=== PATIENT | female | born 1940 | race American Indian/Alaskan Native ===

== ENCOUNTER 2017-03-31 17:59 | Emergency (ER) | payer MEDICARE ==
--- NOTE | 2017-03-31 22:15 | Emergency Department Report ---
ED Abdominal Pain HPI - General Chief Complaint: Skin/Abscess/Foreign Body Stated Complaint: RT SIDE SEVERE PAIN Source: patient Mode of arrival: Ambulatory Limitations: No Limitations - History of Present Illness Initial Comments: 76 year old female presents to ED with .5 cm bug bite on right side of abdomen x2 days. patient states she would like the spider bite examined and does not want to stay for any type of workup. During examination patient is noted to have severe abdominal tenderness in RLQ and R flank upon palpation. patient is stable, neurologically intact and in no acute distress. MD Complaint: abdominal pain -: Gradual Location: RLQ, R flank Radiation: RLQ, R flank Migration to: RLQ, R flank Severity: severe Severity scale (0 -10): 9 Quality: sharp Consistency: intermittent Improves With: nothing Worsens With: nothing Associated Symptoms: denies other symptoms. denies: nausea, vomiting, diarrhea , fever, chills, constipation, dysuria - Related Data Home Medications Medication Instructions Recorded Confirmed Last Taken Aspirin [Aspirin BABY CHEW TAB] 81 mg PO QDAY 09/17/15 03/15/16 09/17/15 AtorvaSTATin [Lipitor] 40 mg PO QHS 09/17/15 03/15/16 09/17/15 Cetirizine HCl [Allergy Relief] 10 mg PO DAILY 09/17/15 03/15/16 09/16/15 Gabapentin [Neurontin] 300 mg PO Q8HR 09/17/15 03/15/16 09/17/15 Previous Rx's Medication Instructions Recorded Last Taken Type Furosemide [Lasix TAB] 40 mg PO QDAY #30 tablet 09/19/15 Unknown Rx Carvedilol [Coreg] 12.5 mg PO BID #60 tablet 03/19/16 Unknown Rx Ferrous Sulfate [Feosol 325 MG tab] 325 mg PO TID #42 tablet 03/19/16 Unknown Rx ISOSORBIDE MONOnitrate [Imdur ER] 60 mg PO DAILY #15 03/19/16 09/17/15 Rx Losartan [Cozaar] 100 mg PO QDAY #15 tablet 03/19/16 Unknown Rx Pantoprazole [Protonix TAB] 40 mg PO BID #60 tablet 03/19/16 Unknown Rx Potassium Chloride [K-Dur] 20 meq PO BID #14 tablet 03/19/16 Unknown Rx amLODIPine [Norvasc] 5 mg PO QDAY #15 tablet 03/19/16 Unknown Rx Sulfamethoxazole/Trimethoprim 1 each PO BID #20 tablet 03/31/17 Unknown Rx [Bactrim DS TAB] Allergies Allergy/AdvReac Type Severity Reaction Status Date / Time Steroids Allergy Vomiting Uncoded 03/31/17 18:41 ED Review of Systems ROS: Stated complaint: RT SIDE SEVERE PAIN Other details as noted in HPI Constitutional: denies: chills, fever Eyes: denies: eye pain, eye discharge, vision change ENT: denies: ear pain, throat pain Respiratory: denies: cough, shortness of breath, wheezing Cardiovascular: denies: chest pain, palpitations Endocrine: no symptoms reported Gastrointestinal: abdominal pain. denies: nausea, vomiting, diarrhea, constipation Genitourinary: denies: urgency, dysuria, discharge Musculoskeletal: denies: back pain, joint swelling, arthralgia Skin: denies: rash, lesions Neurological: denies: headache, weakness, paresthesias Psychiatric: denies: anxiety, depression Hematological/Lymphatic: denies: easy bleeding, easy bruising ED Past Medical Hx - Past Medical History Hx Hypertension: Yes Hx Heart Attack/AMI: Yes Hx GERD: Yes Hx Arthritis: Yes Additional medical history: back pain-CHRONIC. SINUS / ALLERGIES. HIGH CHOLESTEROL. NEUROPATHY - Surgical History Hx Cholecystectomy: Yes Additional Surgical History: PARTIAL hysterectomy. RIGHT KIDNEY SURGERY? - Social History Smoking Status: Current Every Day Smoker Substance Use Type: None - Medications Home Medications: Home Medications Medication Instructions Recorded Confirmed Last Taken Type Aspirin [Aspirin BABY CHEW TAB] 81 mg PO QDAY 09/17/15 03/15/16 09/17/15 History AtorvaSTATin [Lipitor] 40 mg PO QHS 09/17/15 03/15/16 09/17/15 History Cetirizine HCl [Allergy Relief] 10 mg PO DAILY 09/17/15 03/15/16 09/16/15 History Gabapentin [Neurontin] 300 mg PO Q8HR 09/17/15 03/15/16 09/17/15 History Furosemide [Lasix TAB] 40 mg PO QDAY #30 tablet 09/19/15 03/15/16 Unknown Rx Carvedilol [Coreg] 12.5 mg PO BID #60 tablet 03/19/16 03/15/16 Unknown Rx Ferrous Sulfate [Feosol 325 MG tab] 325 mg PO TID #42 tablet 03/19/16 Unknown Rx ISOSORBIDE MONOnitrate [Imdur ER] 60 mg PO DAILY #15 03/19/16 03/15/16 Rx Losartan [Cozaar] 100 mg PO QDAY #15 tablet 03/19/16 Unknown Rx Pantoprazole [Protonix TAB] 40 mg PO BID #60 tablet 03/19/16 Unknown Rx Potassium Chloride [K-Dur] 20 meq PO BID #14 tablet 03/19/16 Unknown Rx amLODIPine [Norvasc] 5 mg PO QDAY #15 tablet 03/19/16 Unknown Rx Sulfamethoxazole/Trimethoprim 1 each PO BID #20 tablet 03/31/17 Unknown Rx [Bactrim DS TAB] ED Physical Exam - General Limitations: No Limitations General appearance: alert, in no apparent distress - Head Head exam: Present: atraumatic, normocephalic - Eye Eye exam: Present: normal appearance - ENT ENT exam: Present: mucous membranes moist - Neck Neck exam: Present: normal inspection - Respiratory Respiratory exam: Present: normal lung sounds bilaterally. Absent: respiratory distress - Cardiovascular Cardiovascular Exam: Present: regular rate, normal rhythm. Absent: systolic murmur, diastolic murmur, rubs, gallop - GI/Abdominal GI/Abdominal exam: Present: soft, tenderness, guarding, normal bowel sounds - Extremities Exam Extremities exam: Present: normal inspection - Back Exam Back exam: Present: normal inspection - Neurological Exam Neurological exam: Present: alert, oriented X3, normal gait - Psychiatric Psychiatric exam: Present: normal affect, normal mood - Skin Skin exam: Present: warm, dry, intact, normal color. Absent: rash ED Course Vital Signs 03/31/17 18:42 Temperature 98.1 F Pulse Rate 72 Respiratory 20 Rate Blood Pressure 142/76 O2 Sat by Pulse 95 Oximetry ED Medical Decision Making - Medical Decision Making 76 year old female presents to ED with spider bite. Upon examination I have noticed that patient has severe abdominal pain to palpation of RLQ and R flank of abdomen. I have notified patient that we should blood work and CT scan for further evaluation and patient states she just wants to leave AMA and come back tomorrow because her daughter has to go to work. patient was also seen by a second provider (Ernst Dorantes PA-C) for second opinion who also agrees with me and notified patient that she needs to stay in ED for blood work and CT scan. Patient has been explained the risks of AMA by myself and by ENIO Dorantes that the risks of leaving the ED AMA include disability, paralysis, loss of function, and the patient has had the opportunity to ask any questions. The patient has normal mental status and is fully capable of making her own decisions and states that she fully understands the risks of leaving the ED without proper recommended treatment and evaluation. The patient's daughter is at bedside during this entire conversation and also understands the risks of the patient leaving AMA. The patient has been informed that she may return to ED for care at any time. Patient will be given prescription for prophylatic antibiotics due to possibility of internal bacterial pathology. Critical care attestation.: If time is entered above; I have spent that time in minutes in the direct care of this critically ill patient, excluding procedure time. ED Disposition Clinical Impression: Abdominal pain Qualifiers: Abdominal location: right lower quadrant Qualified Code(s): R10.31 - Right lower quadrant pain Disposition: LEFT AGAINST MEDICAL ADVICE Is pt being admited?: No Does the pt Need Aspirin: No Condition: Undetermined Additional Instructions: Please return to ED as soon as possible. Prescriptions: Sulfamethoxazole/Trimethoprim [Bactrim DS TAB] 1 each PO BID #20 tablet Referrals: PRIMARY CARE, [Primary Care Provider] - 3-5 Days Forms: AMA Form
[2017-03-31 23:10] VITALS: BP 136/82
== END 2017-03-31 22:40 | disposition left against medical advice (07) ==
LOC: ED 17:59
DX: S30.861A Insect bite (nonvenomous) of abdominal wall, initial encounter (principal); R10.31 Right lower quadrant pain; I10 Essential (primary) hypertension; I25.2 Old myocardial infarction; K21.9 Gastro-esophageal reflux disease without esophagitis; F17.200 Nicotine dependence, unspecified, uncomplicated; W57.XXXA Bitten or stung by nonvenomous insect and other nonvenomous arthropods, initial encounter; Y93.9 Activity, unspecified; Y92.9 Unspecified place or not applicable; Y99.9 Unspecified external cause status
CPT/HCPCS: 99282

== ENCOUNTER 2020-12-31 08:33 | Observation (INO) | payer MEDICARE ==
--- NOTE | 2020-12-31 08:44 | Emergency Department Report ---
ED General Adult HPI - General Chief complaint: Weakness Stated complaint: weak PUI?: Yes Source: patient, EMS ( EMS documentation not available at time of chart dictation ), RN notes reviewed, old records reviewed Mode of arrival: Stretcher Limitations: Physical Limitation - History of Present Illness Initial comments: The patient was evaluated in the emergency department for symptoms described in the history of present illness. He/she was evaluated in the context of the global COVID-19 pandemic, which necessitated consideration that the patient m ight be at risk for infection with the virus that causes COVID-19. Institutional protocols and algorithms that pertain to the evaluation of patients at risk for COVID-19 are in a state of rapid change based on information released by regulatory bodies including the CDC and federal and state organizations. These policies and algorithms were followed during the patient's care in the emergency department. Please note that these policies, procedures and recommendations changed on a rapid basis. During the entire history and physical examination, I had on complete personal protective equipment. Cardiology: [facility] cardiology Past medical history: Anemia, obesity, CHF, COPD This is a 80-year-old female. She is not known to myself previously. History obtained by speaking to the patient, and by obtaining collateral information from EMS. Apparently, the patient's gerentological physiotherapist wanted to have the patient presented to the emergency room yesterday for hypoxia. The patient did not want to come in. She complains of painless weakness and shortness of breath. She denies headache, neck pain, chest pain, abdominal pain. She denies urinary symptoms. She denies loss of taste and smell. She denies diarrhea. EMS indicated the patient was hypoxic in the field to the 70s/low 80s. Currently, patient on supplemental oxygen, saturating at 93 to 97%. She is not had Covid that she is aware of. She states that her weakness is constant. She does not describe exacerbating or relieving factors that she is aware of. -: Gradual, days(s) Consistency: constant Improves with: none Worsens with: none - Related Data Home Medications Medication Instructions Recorded Confirmed Last Taken Gabapentin 800 mg PO BID 12/31/20 12/31/20 Unknown Gabapentin [Neurontin] 12/31/20 Unknown Gabapentin [Neurontin] 1,600 mg PO HS 12/31/20 12/31/20 Unknown HYDROcodone/APAP 10-325 1 tab PO TID PRN 12/31/20 12/31/20 Unknown Tizanidine HCl 2 mg PO QHS 12/31/20 12/31/20 Unknown Tizanidine HCl [Zanaflex 2mg CAP] 0.5 tab PO QAM 12/31/20 12/31/20 Unknown Previous Rx's Medication Instructions Recorded Last Taken Type amLODIPine 5 mg PO QDAY #15 tablet 03/19/16 Unknown Rx Allergies Allergy/AdvReac Type Severity Reaction Status Date / Time Steroids Allergy Vomiting Uncoded 03/31/17 18:41 ED Review of Systems ROS: Stated complaint: ABDOMINAL PAIN/DIFFICULTY BREATHING Other details as noted in HPI Constitutional: malaise, weakness. denies: fever Eyes: denies: eye discharge ENT: congestion Respiratory: shortness of breath Cardiovascular: edema. denies: chest pain Gastrointestinal: denies: abdominal pain, nausea, vomiting, hematemesis, melena, hematochezia Genitourinary: denies: dysuria Musculoskeletal: denies: back pain Neurological: weakness Hematological/Lymphatic: denies: easy bleeding ED Past Medical Hx - Past Medical History Hx Hypertension: Yes Hx Heart Attack/AMI: Yes Hx GERD: Yes Hx Arthritis: Yes Additional medical history: back pain-CHRONIC. SINUS / ALLERGIES. HIGH CHOLESTEROL. NEUROPATHY - Surgical History Hx Cholecystectomy: Yes Additional Surgical History: PARTIAL hysterectomy. RIGHT KIDNEY SURGERY? - Social History Smoking Status: Current Every Day Smoker - Medications Home Medications: Home Medications Medication Instructions Recorded Confirmed Last Taken Type amLODIPine 5 mg PO QDAY #15 tablet 03/19/16 Unknown Rx Gabapentin 800 mg PO BID 12/31/20 12/31/20 Unknown History Gabapentin [Neurontin] 12/31/20 Unknown History Gabapentin [Neurontin] 1,600 mg PO HS 12/31/20 12/31/20 Unknown History HYDROcodone/APAP 10-325 1 tab PO TID PRN 12/31/20 12/31/20 Unknown History Tizanidine HCl 2 mg PO QHS 12/31/20 12/31/20 Unknown History Tizanidine HCl [Zanaflex 2mg CAP] 0.5 tab PO QAM 12/31/20 12/31/20 Unknown History ED Physical Exam - General Limitations: No Limitations General appearance: alert, in distress, obese - Head Head exam: Present: atraumatic, normocephalic - Eye Eye exam: Present: normal appearance, EOMI. Absent: nystagmus - ENT ENT exam: Present: normal exam, normal orophraynx, mucous membranes moist, normal external ear exam - Neck Neck exam: Present: normal inspection, full ROM. Absent: tenderness, meningismus - Respiratory Respiratory exam: Present: decreased breath sounds. Absent: respiratory distre ss, wheezes, rales, rhonchi, stridor - Cardiovascular Cardiovascular Exam: Present: regular rate, normal rhythm, normal heart sounds, JVD. Absent: bradycardia, tachycardia, irregular rhythm, systolic murmur, diastolic murmur, rubs, gallop - GI/Abdominal GI/Abdominal exam: Present: soft. Absent: distended, tenderness, guarding, rebound, rigid, pulsatile mass - Extremities Exam Extremities exam: Present: normal inspection, full ROM, pedal edema (2+ edema in the bilateral lower extremity), other (2+ pulses noted in the bilateral upper and lower extremities. There is no palpable cord. negative Homans sign. Muscular compartments are soft. The pelvis is stable.). Absent: calf tenderness - Back Exam Back exam: Present: normal inspection. Absent: tenderness, CVA tenderness (R), CVA tenderness (L), paraspinal tenderness, vertebral tenderness - Neurological Exam Neurological exam: Present: alert, other (No facial droop. Tongue midline. Extraocular movements intact bilaterally. Facial sensation intact to light touch in V1, V2, V3 distribution bilaterally. 5 and a 5 strength in 4 extremi ties. Sensation intact to light touch in 4 extremities.). Absent: motor sensory deficit - Psychiatric Psychiatric exam: Present: flat affect - Skin Skin exam: Present: warm, dry, intact, normal color. Absent: rash ED Course Vital Signs 12/31/20 12/31/20 12/31/20 08:30 08:37 08:39 Temperature 98.5 F Pulse Rate 81 Respiratory 22 20 Rate Blood Pressure 173/68 [Left] O2 Sat by Pulse 93 88 Oximetry 12/31/20 12/31/20 09:50 10:02 Temperature Pulse Rate 77 Respiratory 20 Rate Blood Pressure 193/91 [Left] O2 Sat by Pulse 88 93 Oximetry - Reevaluation(s) Reevaluation #1: 12/31/20 09:16 Differential diagnosis, including but not limited to: CHF exacerbation, COPD exa cerbation, COVID-19, multifactorial respiratory failure Assessment and plan: 80-year-old female, with a documented history of CHF, COPD, sent to the emergency room by family, with a complaint of weakness and hypoxia. Keep patient on isolation. Obtain appropriate laboratory studies, start steroids, and continue supplemental oxygen. Reassess after initial data points, anticipate admission to our medical service. Have discussed this plan of care with the patient, who verbalized understanding, and is amenable to this plan of care. Reevaluation #2: 12/31/20 10:08 Laboratory studies reviewed and appreciated. This is more suspicious for CHF, less likely Covid. Hemoglobin hematocrit reviewed and appreciated. Patient has been noted to have blood loss anemia in the past. The patient denies hematemesis and bright red blood per rectum to myself. Lasix ordered. [facility] cardiology consulted, we are waiting for callback. [facility] physician, Dr. Chow to admit patient to the medical service. - Consultations Consultation #1: 12/31/20 10:18 Discussed history, physical, pertinent findings with cardiology, Janneth Vergara, [facility] cardiology, the cardiology group will follow in consultation. ED Medical Decision Making - Lab Data Result diagrams: 12/31/20 Unknown 12/31/20 Unknown Vital Signs 12/31/20 12/31/20 12/31/20 08:30 08:37 08:39 Temperature 98.5 F Pulse Rate 81 Respiratory 22 20 Rate Blood Pressure 173/68 [Left] O2 Sat by Pulse 93 88 Oximetry Lab Results 12/31/20 12/31/20 12/31/20 Range/Units 09:03 09:03 Unknown WBC 7.0 (4.5-11.0) K/mm3 RBC 3.56 L (3.65-5.03) M/mm3 Hgb 8.5 L (10.1-14.3) gm/dl Hct 27.3 L (30.3-42.9) % MCV 77 L (79-97) fl MCH 24 L (28-32) pg MCHC 31 (30-34) % RDW 25.7 H (13.2-15.2) % Plt Count 306 (140-440) K/mm3 Add Manual Diff Complete Total Counted 100 Seg Neuts % (Manual) 82.0 H (40.0-70.0) % Lymphocytes % (Manual) 11.0 L (13.4-35.0) % Monocytes % (Manual) 3.0 (0.0-7.3) % Eosinophils % (Manual) 4.0 (0.0-4.3) % Nucleated RBC % Not Reportable Seg Neutrophils # Man 5.7 (1.8-7.7) K/mm3 Band Neutrophils # 0.0 K/mm3 Lymphocytes # (Manual) 0.8 L (1.2-5.4) K/mm3 Abs React Lymphs (Man) 0.0 K/mm3 Monocytes # (Manual) 0.2 (0.0-0.8) K/mm3 Eosinophils # (Manual) 0.3 (0.0-0.4) K/mm3 Basophils # (Manual) 0.0 (0.0-0.1) K/mm3 Metamyelocytes # 0.0 K/mm3 Myelocytes # 0.0 K/mm3 Promyelocytes # 0.0 K/mm3 Blast Cells # 0.0 K/mm3 WBC Morphology Not Reportable Hypersegmented Neuts Not Reportable Hyposegmented Neuts Not Reportable Hypogranular Neuts Not Reportable Smudge Cells Not Reportable Toxic Granulation Not Reportable Toxic Vacuolation Not Reportable Dohle Bodies Not Reportable Pelger-Huet Anomaly Not Reportable Luis Rods Not Reportable Platelet Estimate Consistent w auto Clumped Platelets Not Reportable Plt Clumps, EDTA Not Reportable Large Platelets Not Reportable Giant Platelets Not Reportable Platelet Satelliting Not Reportable Plt Morphology Comment Not Reportable RBC Morphology Not Reportable Dimorphic RBCs Not Reportable Polychromasia Rare Hypochromasia 2+ Poikilocytosis 1+ Anisocytosis 2+ Microcytosis Not Reportable Macrocytosis Not Reportable Spherocytes Not Reportable Pappenheimer Bodies Not Reportable Sickle Cells Not Reportable Target Cells Rare Tear Drop Cells Few Ovalocytes Not Reportable Helmet Cells Not Reportable Connelly-[place] Bodies Not Reportable Lewis Rings Not Reportable Yumi Cells Not Reportable Bite Cells Not Reportable Crenated Cell Not Reportable Elliptocytes Few Acanthocytes (Spur) Not Reportable Rouleaux Not Reportable Hemoglobin C Crystals Not Reportable Schistocytes Not Reportable Malaria parasites Not Reportable Shahriar Bodies Not Reportable Hem Pathologist Commnt No PT (12.2-14.9) Sec. INR (0.87-1.13) D-Dimer (0-234) ng/mlDDU Sodium (137-145) mmol/L Potassium (3.6-5.0) mmol/L Chloride (98-107) mmol/L Carbon Dioxide (22-30) mmol/L Anion Gap mmol/L BUN (7-17) mg/dL Creatinine (0.6-1.2) mg/dL Estimated GFR ml/min BUN/Creatinine Ratio % Glucose (65-100) mg/dL Lactic Acid 1.40 (0.7-2.0) mmol/L Calcium (8.4-10.2) mg/dL Magnesium (1.7-2.3) mg/dL Ferritin 14.5 (10.0-200.0) ng/mL Total Bilirubin (0.1-1.2) mg/dL AST (5-40) units/L ALT (7-56) units/L Alkaline Phosphatase (35-129) units/L Lactate Dehydrogenase (91-180) units/L Total Creatine Kinase (30-135) units/L Troponin T (0.00-0.029) ng/mL C-Reactive Protein (0.00-1.30) mg/dL NT-Pro-B Natriuret Pep (0-900) pg/mL Total Protein (6.3-8.2) g/dL Albumin (3.9-5) g/dL Albumin/Globulin Ratio % TSH (0.270-4.200) mlU/mL Salicylates (2.8-20.0) mg/dL Acetaminophen (10.0-30.0) ug/mL Plasma/Serum Alcohol (0-0.07) % 12/31/20 12/31/20 12/31/20 Range/Units Unknown Unknown Unknown WBC (4.5-11.0) K/mm3 RBC (3.65-5.03) M/mm3 Hgb (10.1-14.3) gm/dl Hct (30.3-42.9) % MCV (79-97) fl MCH (28-32) pg MCHC (30-34) % RDW (13.2-15.2) % Plt Count (140-440) K/mm3 Add Manual Diff Total Counted Seg Neuts % (Manual) (40.0-70.0) % Lymphocytes % (Manual) (13.4-35.0) % Monocytes % (Manual) (0.0-7.3) % Eosinophils % (Manual) (0.0-4.3) % Nucleated RBC % Seg Neutrophils # Man (1.8-7.7) K/mm3 Band Neutrophils # K/mm3 Lymphocytes # (Manual) (1.2-5.4) K/mm3 Abs React Lymphs (Man) K/mm3 Monocytes # (Manual) (0.0-0.8) K/mm3 Eosinophils # (Manual) (0.0-0.4) K/mm3 Basophils # (Manual) (0.0-0.1) K/mm3 Metamyelocytes # K/mm3 Myelocytes # K/mm3 Promyelocytes # K/mm3 Blast Cells # K/mm3 WBC Morphology Hypersegmented Neuts Hyposegmented Neuts Hypogranular Neuts Smudge Cells Toxic Granulation Toxic Vacuolation Dohle Bodies Pelger-Huet Anomaly Luis Rods Platelet Estimate Clumped Platelets Plt Clumps, EDTA Large Platelets Giant Platelets Platelet Satelliting Plt Morphology Comment RBC Morphology Dimorphic RBCs Polychromasia Hypochromasia Poikilocytosis Anisocytosis Microcytosis Macrocytosis Spherocytes Pappenheimer Bodies Sickle Cells Target Cells Tear Drop Cells Ovalocytes Helmet Cells Connelly-[place] Bodies Lewis Rings Blevins Cells Bite Cells Crenated Cell Elliptocytes Acanthocytes (Spur) Rouleaux Hemoglobin C Crystals Schistocytes Malaria parasites Shahriar Bodies Hem Pathologist Commnt PT 12.8 (12.2-14.9) Sec. INR 0.97 (0.87-1.13) D-Dimer 510.39 H (0-234) ng/mlDDU Sodium 139 (137-145) mmol/L Potassium 3.6 (3.6-5.0) mmol/L Chloride 98.5 (98-107) mmol/L Carbon Dioxide 36 H (22-30) mmol/L Anion Gap 8 mmol/L BUN 10 (7-17) mg/dL Creatinine 0.6 (0.6-1.2) mg/dL Estimated GFR > 60 ml/min BUN/Creatinine Ratio 17 % Glucose 118 H (65-100) mg/dL Lactic Acid (0.7-2.0) mmol/L Calcium 8.8 (8.4-10.2) mg/dL Magnesium 1.90 (1.7-2.3) mg/dL Ferritin 14.5 (10.0-200.0) ng/mL Total Bilirubin 0.70 (0.1-1.2) mg/dL AST 14 (5-40) units/L ALT 17 (7-56) units/L Alkaline Phosphatase 75 (35-129) units/L Lactate Dehydrogenase 227 H (91-180) units/L Total Creatine Kinase 97 (30-135) units/L Troponin T < 0.010 (0.00-0.029) ng/mL C-Reactive Protein 0.10 (0.00-1.30) mg/dL NT-Pro-B Natriuret Pep 1926 H (0-900) pg/mL Total Protein 6.3 (6.3-8.2) g/dL Albumin 4.0 (3.9-5) g/dL Albumin/Globulin Ratio 1.7 % TSH (0.270-4.200) mlU/mL Salicylates (2.8-20.0) mg/dL Acetaminophen (10.0-30.0) ug/mL Plasma/Serum Alcohol (0-0.07) % 12/31/20 12/31/20 12/31/20 Range/Units Unknown Unknown Unknown WBC (4.5-11.0) K/mm3 RBC (3.65-5.03) M/mm3 Hgb (10.1-14.3) gm/dl Hct (30.3-42.9) % MCV (79-97) fl MCH (28-32) pg MCHC (30-34) % RDW (13.2-15.2) % Plt Count (140-440) K/mm3 Add Manual Diff Total Counted Seg Neuts % (Manual) (40.0-70.0) % Lymphocytes % (Manual) (13.4-35.0) % Monocytes % (Manual) (0.0-7.3) % Eosinophils % (Manual) (0.0-4.3) % Nucleated RBC % Seg Neutrophils # Man (1.8-7.7) K/mm3 Band Neutrophils # K/mm3 Lymphocytes # (Manual) (1.2-5.4) K/mm3 Abs React Lymphs (Man) K/mm3 Monocytes # (Manual) (0.0-0.8) K/mm3 Eosinophils # (Manual) (0.0-0.4) K/mm3 Basophils # (Manual) (0.0-0.1) K/mm3 Metamyelocytes # K/mm3 Myelocytes # K/mm3 Promyelocytes # K/mm3 Blast Cells # K/mm3 WBC Morphology Hypersegmented Neuts Hyposegmented Neuts Hypogranular Neuts Smudge Cells Toxic Granulation Toxic Vacuolation Dohle Bodies Pelger-Huet Anomaly Luis Rods Platelet Estimate Clumped Platelets Plt Clumps, EDTA Large Platelets Giant Platelets Platelet Satelliting Plt Morphology Comment RBC Morphology Dimorphic RBCs Polychromasia Hypochromasia Poikilocytosis Anisocytosis Microcytosis Macrocytosis Spherocytes Pappenheimer Bodies Sickle Cells Target Cells Tear Drop Cells Ovalocytes Helmet Cells Connelly-[place] Bodies Lewis Rings Yumi Cells Bite Cells Crenated Cell Elliptocytes Acanthocytes (Spur) Rouleaux Hemoglobin C Crystals Schistocytes Malaria parasites Shahriar Bodies Hem Pathologist Commnt PT (12.2-14.9) Sec. INR (0.87-1.13) D-Dimer (0-234) ng/mlDDU Sodium (137-145) mmol/L Potassium (3.6-5.0) mmol/L Chloride (98-107) mmol/L Carbon Dioxide (22-30) mmol/L Anion Gap mmol/L BUN (7-17) mg/dL Creatinine (0.6-1.2) mg/dL Estimated GFR ml/min BUN/Creatinine Ratio % Glucose (65-100) mg/dL Lactic Acid (0.7-2.0) mmol/L Calcium (8.4-10.2) mg/dL Magnesium (1.7-2.3) mg/dL Ferritin (10.0-200.0) ng/mL Total Bilirubin (0.1-1.2) mg/dL AST (5-40) units/L ALT (7-56) units/L Alkaline Phosphatase (35-129) units/L Lactate Dehydrogenase (91-180) units/L Total Creatine Kinase (30-135) units/L Troponin T (0.00-0.029) ng/mL C-Reactive Protein (0.00-1.30) mg/dL NT-Pro-B Natriuret Pep (0-900) pg/mL Total Protein (6.3-8.2) g/dL Albumin (3.9-5) g/dL Albumin/Globulin Ratio % TSH 1.100 (0.270-4.200) mlU/mL Salicylates < 0.3 L (2.8-20.0) mg/dL Acetaminophen 5.0 L (10.0-30.0) ug/mL Plasma/Serum Alcohol (0-0.07) % 12/31/20 Range/Units Unknown WBC (4.5-11.0) K/mm3 RBC (3.65-5.03) M/mm3 Hgb (10.1-14.3) gm/dl Hct (30.3-42.9) % MCV (79-97) fl MCH (28-32) pg MCHC (30-34) % RDW (13.2-15.2) % Plt Count (140-440) K/mm3 Add Manual Diff Total Counted Seg Neuts % (Manual) (40.0-70.0) % Lymphocytes % (Manual) (13.4-35.0) % Monocytes % (Manual) (0.0-7.3) % Eosinophils % (Manual) (0.0-4.3) % Nucleated RBC % Seg Neutrophils # Man (1.8-7.7) K/mm3 Band Neutrophils # K/mm3 Lymphocytes # (Manual) (1.2-5.4) K/mm3 Abs React Lymphs (Man) K/mm3 Monocytes # (Manual) (0.0-0.8) K/mm3 Eosinophils # (Manual) (0.0-0.4) K/mm3 Basophils # (Manual) (0.0-0.1) K/mm3 Metamyelocytes # K/mm3 Myelocytes # K/mm3 Promyelocytes # K/mm3 Blast Cells # K/mm3 WBC Morphology Hypersegmented Neuts Hyposegmented Neuts Hypogranular Neuts Smudge Cells Toxic Granulation Toxic Vacuolation Dohle Bodies Pelger-Huet Anomaly Luis Rods Platelet Estimate Clumped Platelets Plt Clumps, EDTA Large Platelets Giant Platelets Platelet Satelliting Plt Morphology Comment RBC Morphology Dimorphic RBCs Polychromasia Hypochromasia Poikilocytosis Anisocytosis Microcytosis Macrocytosis Spherocytes Pappenheimer Bodies Sickle Cells Target Cells Tear Drop Cells Ovalocytes Helmet Cells Connelly-[place] Bodies Lewis Rings Blevins Cells Bite Cells Crenated Cell Elliptocytes Acanthocytes (Spur) Rouleaux Hemoglobin C Crystals Schistocytes Malaria parasites Shahriar Bodies Hem Pathologist Commnt PT (12.2-14.9) Sec. INR (0.87-1.13) D-Dimer (0-234) ng/mlDDU Sodium (137-145) mmol/L Potassium (3.6-5.0) mmol/L Chloride (98-107) mmol/L Carbon Dioxide (22-30) mmol/L Anion Gap mmol/L BUN (7-17) mg/dL Creatinine (0.6-1.2) mg/dL Estimated GFR ml/min BUN/Creatinine Ratio % Glucose (65-100) mg/dL Lactic Acid (0.7-2.0) mmol/L Calcium (8.4-10.2) mg/dL Magnesium (1.7-2.3) mg/dL Ferritin (10.0-200.0) ng/mL Total Bilirubin (0.1-1.2) mg/dL AST (5-40) units/L ALT (7-56) units/L Alkaline Phosphatase (35-129) units/L Lactate Dehydrogenase (91-180) units/L Total Creatine Kinase (30-135) units/L Troponin T (0.00-0.029) ng/mL C-Reactive Protein (0.00-1.30) mg/dL NT-Pro-B Natriuret Pep (0-900) pg/mL Total Protein (6.3-8.2) g/dL Albumin (3.9-5) g/dL Albumin/Globulin Ratio % TSH (0.270-4.200) mlU/mL Salicylates (2.8-20.0) mg/dL Acetaminophen (10.0-30.0) ug/mL Plasma/Serum Alcohol < 0.01 (0-0.07) % - EKG Data -: EKG Interpreted by Al EKG shows normal: sinus rhythm Rate: normal - EKG Data 12/31/20 09:15 EKG today shows a sinus rhythm, 76 bpm. There is a normal axis, and the intervals are within normal limits. Lateral T wave inversions V2 through V5. This is an abnormal EKG with motion artifact. This is not a STEMI. When compared to prior EKG from 2016, T wave inversions are persistent, but appear improved. - Radiology Data Radiology results: pending, report reviewed, image reviewed CHEST 1 VIEW INDICATION: Dyspnea. COMPARISON: 03/14/2016 FINDINGS: SUPPORT DEVICES: None. HEART: Within normal limits. LUNGS/PLEURA: Mild elevation of the right hemidiaphragm with mild diffuse interstitial prominence which may at least in part reflect a component of mild edema. No pleural effusion or dense consolidation. ADDITIONAL FINDINGS: None. IMPRESSION: 1. Pulmonary findings as above. Signer Name: Alton Mcdaniel MD Signed: 12/31/2020 8:34 AM Workstation Na me: [id number] Critical Care Time: Yes Critical care time in (mins) excluding proc time.: 35 Critical care attestation.: If time is entered above; I have spent that time in minutes in the direct care of this critically ill patient, excluding procedure time. ED Disposition Clinical Impression: Acute respiratory failure with hypoxia, Suspected 2019 novel coronavirus infection, Shortness of breath, Acute CHF, Anemia Disposition: 09 OP ADMIT IP TO THIS HOSP Is pt being admited?: Yes Does the pt Need Aspirin: No Condition: Fair Instructions: Abdominal Pain (ED)
[2020-12-31] MEDS ORDERED: dexAMETHasone 4 MG/ML VIAL IV ONE (09:18)
[2020-12-31 09:19] LABS: Hematocrit 27.3 % (30.3-42.9); Hemoglobin 8.5 gm/dl (10.1-14.3); Mean Corpuscular HGB Conc 31 % (30-34); Mean Corpuscular Volume 77 fl (79-97); Platelet Count 306 K/mm3 (140-440); Red Blood Count 3.56 M/mm3 (3.65-5.03)
[2020-12-31 09:21] LABS: Red Cell Distribution Width 25.7 % (13.2-15.2)
--- NOTE | 2020-12-31 09:38 | XRay Report ---
CHEST 1 VIEW INDICATION: Dyspnea. COMPARISON: 03/14/2016 FINDINGS: SUPPORT DEVICES: None. HEART: Within normal limits. LUNGS/PLEURA: Mild elevation of the right hemidiaphragm with mild diffuse interstitial prominence whi ch may at least in part reflect a component of mild edema. No pleural effusion or dense consolidation . ADDITIONAL FINDINGS: None. IMPRESSION: 1. Pulmonary findings as above. Signer Name: Alton Mcdaniel MD Signed: 12/31/2020 9:34 AM Workstation Name: [id number]
[2020-12-31 09:41] LABS: INR 0.97 (0.87-1.13)
[2020-12-31 09:56] LABS: Alanine Aminotransferase 17 units/L (7-56); Blood Urea Nitrogen 10 mg/dL (7-17); Calcium 8.8 mg/dL (8.4-10.2); Hemolysis Index 1
[2020-12-31 09:57] LABS: BUN/Creatinine Ratio 17
[2020-12-31 10:00] LABS: Total Cells Counted 100
[2020-12-31 10:01] LABS: Anisocytosis 2+; Hypochromasia 2+
[2020-12-31 10:02] LABS: Poikilocytosis 1+; Target Cells Rare; Tear Drop Cells Few
[2020-12-31 10:03] LABS: Platelet Estimate Consistent w Auto
[2020-12-31] MEDS ORDERED: FUROSEMIDE 40 MG/4 ML INJ IV ONE (10:06)
--- NOTE | 2020-12-31 11:26 | History and Physical Report ---
History of Present Illness Date of examination: 12/31/20 Date of admission: 12/31/20 10:15 Chief complaint: sob History of present illness: Patient is a 80-year-old female with a history of COPD, congestive heart failure, hypertension presents with a 3-day history of shortness of breath hypoxemia. 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 Was then sent for follow-up with helper animal laboratory Dr. Winkler. From there patient was referred to the ED. Upon presentation was found to be hypoxemic with sats in the 70s and 80s currently hemodynamically stable with supplemental O2. Patient at present states she has had a history of congestive heart failure however stopped taking medications for her blood pressure and Lasix several years ago. Patient very poor historian keeps saying weight let me get my thoughts together. States she seen several doctors in the last 3 weeks and difficult to remember which ones. Currently comfortable now satting 96% on 3 L of O2. Patient states occasionally she gets short of breath and is from her smoking and her COPD. Denies any recent sick contacts. Denies any recent travel. States she has been at home attempting to avoid Covid. Past History Past Medical History: anemia, arthritis, COPD, GERD, heart failure, hypertension, hyperlipidemia. denies: acute [place], atrial fib, arrhythmia, CAD, cancer, diabetes, dialysis, DVT, ESRD, hepatitis, HIV/AIDS, hyperthyroidism, hypothyroidism, liver disease, pulmonary embolism, renal failure, seizures, stroke Past Surgical History: appendectomy, cholecystectomy Social history: lives with family, smoking. denies: alcohol abuse, prescription drug abuse, IV drug use Family history: hypertension Medications and Allergies Allergies Allergy/AdvReac Type Severity Reaction Status Date / Time Steroids Allergy Vomiting Uncoded 03/31/17 18:41 Home Medications Medication Instructions Recorded Confirmed Last Taken Type amLODIPine 5 mg PO QDAY #15 tablet 03/19/16 Unknown Rx Gabapentin 800 mg PO BID 12/31/20 12/31/20 Unknown History Gabapentin [Neurontin] 12/31/20 Unknown History Gabapentin [Neurontin] 1,600 mg PO HS 12/31/20 12/31/20 Unknown History HYDROcodone/APAP 10-325 1 tab PO TID PRN 12/31/20 12/31/20 Unknown History Tizanidine HCl 2 mg PO QHS 12/31/20 12/31/20 Unknown History Tizanidine HCl [Zanaflex 2mg CAP] 0.5 tab PO QAM 12/31/20 12/31/20 Unknown History Review of Systems Constitutional: fatigue, weakness, no weight loss, no weight gain, no fever, no chills, no sweats, no malaise, no lethargy, no chronic headaches Ears, nose, mouth and throat: no deferred, no ear pain, no nose pain, no mouth pain, no hoarseness Cardiovascular: shortness of breath, dyspnea on exertion, high blood pressure, no chest pain, no orthopnea, no palpitations, no rapid/irregular heart beat, no edema, no syncope, no lightheadedness, no paroxysmal nocturnal dyspnea, no claudication, no phlebitis, no leg edema Respiratory: shortness of breath, dyspnea on exertion, no cough, no cough with sputum, no excessive sputum, no hemoptysis, no congestion, no wheezing, no pain on inspiration, no sleep apnea, no respiratory infections, no home oxygen Gastrointestinal: no nausea, no diarrhea, no constipation, no hematochezia, no loss of appetite, no heartburn Rectal: no discharge Musculoskeletal: no neck stiffness, no neck pain, no shooting arm pain, no muscle weakness, no loss of height Neurological: no head injury, no weakness, no tingling, no migraines, no aphasia, no change in mentation, no double vision, no loss of vision Psychiatric: no sleep disturbances, no mood swings Endocrine: no cold intolerance, no polydipsia, no excessive sweating, no deepening of the voice, no palpatations Hematologic/Lymphatic: no easy bleeding, no lymphadenopathy Allergic/Immunologic: no persistent infections, no gluten intolerance Exam - Constitutional Vitals: Temp Pulse Resp BP Pulse Ox 98.5 F 75 15 193/83 97 12/31/20 11:07 12/31/20 11:07 12/31/20 11:07 12/31/20 11:07 12/31/20 11:07 General appearance: Present: no acute distress, well-nourished - EENT Eyes: Present: PERRL ENT: hearing intact, clear oral mucosa, other (No JVD no lymphadenopathy) - Neck Neck: Present: supple, normal ROM - Respiratory Respiratory effort: normal Respiratory: bilateral: CTA - Cardiovascular Heart Sounds: Present: S1 & S2. Absent: rub, click - Extremities Extremities: pulses symmetrical, No edema Peripheral Pulses: within normal limits - Abdominal General gastrointestinal: Present: soft, non-tender, non-distended, normal bowel sounds, other (Obese) Female genitourinary: Present: normal - Integumentary Integumentary: Present: clear, warm, dry - Musculoskeletal Musculoskeletal: gait normal, strength equal bilaterally - Psychiatric Psychiatric: appropriate mood/affect, intact judgment & insight - Neurologic Neurologic: CNII-XII intact, moves all extremities HEART Score - HEART Score Troponin: Troponin T < 0.010 ng/mL (0.00-0.029) 12/31/20 Unknown Results - Labs CBC & Chem 7: 12/31/20 Unknown 12/31/20 Unknown Labs: Laboratory Last Values WBC 7.0 K/mm3 (4.5-11.0) 12/31/20 Unknown RBC 3.56 M/mm3 (3.65-5.03) L 12/31/20 Unknown Hgb 8.5 gm/dl (10.1-14.3) L 12/31/20 Unknown Hct 27.3 % (30.3-42.9) L 12/31/20 Unknown MCV 77 fl (79-97) L 12/31/20 Unknown MCH 24 pg (28-32) L 12/31/20 Unknown MCHC 31 % (30-34) 12/31/20 Unknown RDW 25.7 % (13.2-15.2) H 12/31/20 Unknown Plt Count 306 K/mm3 (140-440) 12/31/20 Unknown Add Manual Diff Complete 12/31/20 Unknown Total Counted 100 12/31/20 Unknown Seg Neuts % (Manual) 82.0 % (40.0-70.0) H 12/31/20 Unknown Lymphocytes % (Manual) 11.0 % (13.4-35.0) L 12/31/20 Unknown Monocytes % (Manual) 3.0 % (0.0-7.3) 12/31/20 Unknown Eosinophils % (Manual) 4.0 % (0.0-4.3) 12/31/20 Unknown Nucleated RBC % Not Reportable 12/31/20 Unknown Seg Neutrophils # Man 5.7 K/mm3 (1.8-7.7) 12/31/20 Unknown Band Neutrophils # 0.0 K/mm3 12/31/20 Unknown Lymphocytes # (Manual) 0.8 K/mm3 (1.2-5.4) L 12/31/20 Unknown Abs React Lymphs (Man) 0.0 K/mm3 12/31/20 Unknown Monocytes # (Manual) 0.2 K/mm3 (0.0-0.8) 12/31/20 Unknown Eosinophils # (Manual) 0.3 K/mm3 (0.0-0.4) 12/31/20 Unknown Basophils # (Manual) 0.0 K/mm3 (0.0-0.1) 12/31/20 Unknown Metamyelocytes # 0.0 K/mm3 12/31/20 Unknown Myelocytes # 0.0 K/mm3 12/31/20 Unknown Promyelocytes # 0.0 K/mm3 12/31/20 Unknown Blast Cells # 0.0 K/mm3 12/31/20 Unknown WBC Morphology Not Reportable 12/31/20 Unknown Hypersegmented Neuts Not Reportable 12/31/20 Unknown Hyposegmented Neuts Not Reportable 12/31/20 Unknown Hypogranular Neuts Not Reportable 12/31/20 Unknown Smudge Cells Not Reportable 12/31/20 Unknown Toxic Granulation Not Reportable 12/31/20 Unknown Toxic Vacuolation Not Reportable 12/31/20 Unknown Dohle Bodies Not Reportable 12/31/20 Unknown Pelger-Huet Anomaly Not Reportable 12/31/20 Unknown Luis Rods Not Reportable 12/31/20 Unknown Platelet Estimate Consistent w auto 12/31/20 Unknown Clumped Platelets Not Reportable 12/31/20 Unknown Plt Clumps, EDTA Not Reportable 12/31/20 Unknown Large Platelets Not Reportable 12/31/20 Unknown Giant Platelets Not Reportable 12/31/20 Unknown Platelet Satelliting Not Reportable 12/31/20 Unknown Plt Morphology Comment Not Reportable 12/31/20 Unknown RBC Morphology Not Reportable 12/31/20 Unknown Dimorphic RBCs Not Reportable 12/31/20 Unknown Polychromasia Rare 12/31/20 Unknown Hypochromasia 2+ 12/31/20 Unknown Poikilocytosis 1+ 12/31/20 Unknown Anisocytosis 2+ 12/31/20 Unknown Microcytosis Not Reportable 12/31/20 Unknown Macrocytosis Not Reportable 12/31/20 Unknown Spherocytes Not Reportable 12/31/20 Unknown Pappenheimer Bodies Not Reportable 12/31/20 Unknown Sickle Cells Not Reportable 12/31/20 Unknown Target Cells Rare 12/31/20 Unknown Tear Drop Cells Few 12/31/20 Unknown Ovalocytes Not Reportable 12/31/20 Unknown Helmet Cells Not Reportable 12/31/20 Unknown [place] Bodies Not Reportable 12/31/20 Unknown [place] Rings Not Reportable 12/31/20 Unknown [place] Cells Not Reportable 12/31/20 Unknown Bite Cells Not Reportable 12/31/20 Unknown Crenated Cell Not Reportable 12/31/20 Unknown Elliptocytes Few 12/31/20 Unknown Acanthocytes (Spur) Not Reportable 12/31/20 Unknown Rouleaux Not Reportable 12/31/20 Unknown Hemoglobin C Crystals Not Reportable 12/31/20 Unknown Schistocytes Not Reportable 12/31/20 Unknown Malaria parasites Not Reportable 12/31/20 Unknown Shahriar Bodies Not Reportable 12/31/20 Unknown Hem Pathologist Commnt No 12/31/20 Unknown PT 12.8 Sec. (12.2-14.9) 12/31/20 Unknown INR 0.97 (0.87-1.13) 12/31/20 Unknown D-Dimer 510.39 ng/mlDDU (0-234) H 12/31/20 Unknown Sodium 139 mmol/L (137-145) 12/31/20 Unknown Potassium 3.6 mmol/L (3.6-5.0) 12/31/20 Unknown Chloride 98.5 mmol/L (98-107) 12/31/20 Unknown Carbon Dioxide 36 mmol/L (22-30) H 12/31/20 Unknown Anion Gap 8 mmol/L 12/31/20 Unknown BUN 10 mg/dL (7-17) 12/31/20 Unknown Creatinine 0.6 mg/dL (0.6-1.2) 12/31/20 Unknown Estimated GFR > 60 ml/min 12/31/20 Unknown BUN/Creatinine Ratio 17 % 12/31/20 Unknown Glucose 118 mg/dL (65-100) H 12/31/20 Unknown Lactic Acid 1.40 mmol/L (0.7-2.0) 12/31/20 09:03 Calcium 8.8 mg/dL (8.4-10.2) 12/31/20 Unknown Magnesium 1.90 mg/dL (1.7-2.3) 12/31/20 Unknown Ferritin 14.5 ng/mL (10.0-200.0) 12/31/20 Unknown Total Bilirubin 0.70 mg/dL (0.1-1.2) 12/31/20 Unknown AST 14 units/L (5-40) 12/31/20 Unknown ALT 17 units/L (7-56) 12/31/20 Unknown Alkaline Phosphatase 75 units/L (35-129) 12/31/20 Unknown Lactate Dehydrogenase 227 units/L (91-180) H 12/31/20 Unknown Total Creatine Kinase 97 units/L (30-135) 12/31/20 Unknown Troponin T < 0.010 ng/mL (0.00-0.029) 12/31/20 Unknown C-Reactive Protein 0.10 mg/dL (0.00-1.30) 12/31/20 Unknown NT-Pro-B Natriuret Pep 1926 pg/mL (0-900) H 12/31/20 Unknown Total Protein 6.3 g/dL (6.3-8.2) 12/31/20 Unknown Albumin 4.0 g/dL (3.9-5) 12/31/20 Unknown Albumin/Globulin Ratio 1.7 % 12/31/20 Unknown TSH 1.100 mlU/mL (0.270-4.200) 12/31/20 Unknown Salicylates < 0.3 mg/dL (2.8-20.0) L 12/31/20 Unknown Acetaminophen 5.0 ug/mL (10.0-30.0) L 12/31/20 Unknown Plasma/Serum Alcohol < 0.01 % (0-0.07) 12/31/20 Unknown Microbiology: Microbiology 12/31/20 09:03 Peripheral/Venous Blood Culture - Preliminary Culture in Progress 12/31/20 09:03 Peripheral/Venous Blood Culture - Preliminary Culture in Progress - Imaging and Cardiology Chest x-ray: report reviewed, image reviewed Bhandari/IV: IV Catheter Type [Right INT / Saline Lock Antecubital] Assessment and Plan Advance Directives: Yes VTE prophylaxis?: Chemical Plan of care discussed with patient/family: Yes - Patient Problems (1) Anemia Current Visit: Yes Status: Acute Plan to address problem: Patient has history anemia of chronic disease. Also has had GI bleed in the past. Patient denies any melena patient denies any bright red blood per rectum. Hemoglobin and hematocrit currently 8 and 27. Will resume iron. Will work-up as outpatient if necessary with patient's primary care physician at [facility]. Follow serial H&H (2) Acute CHF Current Visit: Yes Status: Acute Plan to address problem: At present patient being admitted for acute CHF exacerbation. Echocardiogram still pending. Will offer aggressive diuretics in the past and has not been using diuretics now. Potentially this could be failed treatment secondary to noncompliance. Patient such a poor historian diuretics in the past.. Patient has been on diuretics in the past. Currently not using diuretics. Will admit perform echocardiogram for further restratify. Will at least need 1 set of cardiac isoenzymes. Patient's blood pressure remains suboptimally controlled. Will start patient back on Coreg iv diuretics MEME inhibitor afterload reducers. Await any further cardiology recommendations. [facility]. (3) Acute respiratory failure with hypoxia Current Visit: Yes Status: Acute Plan to address problem: Acute respiratory failure multifactorial secondary to CHF exacerbation, COPD exacerbation patient still has wheezing continue smoking. Will start patient on albuterol Atrovent nebulizers if required. Will wait till we rule out Covid 19. Will use metered-dose inhaler until that time. (4) Suspected 2019 novel coronavirus infection Current Visit: Yes Status: Acute Plan to address problem: We will obtain nasal swab for COVID-19. (5) Anemia due to blood loss, chronic Current Visit: No Status: Acute Plan to address problem: Anemia of chronic disease. Transfuse as indicated. (6) Hypertensive urgency Current Visit: No Status: Acute Plan to address problem: Hypertensive urgency. Will place patient back on Coreg 25 mg twice daily. Will start MEME inhibitor. We will also treat with hydralazine IV as needed for now.
[2020-12-31 11:40] LABS: Bilirubin,Urine NEG (Negative); Blood,Urine SM (Negative); Color,Urine Straw (Yellow); Protein,Urine <15 mg/dL mg/dL (Negative); Urobilinogen,Urine < 2.0 mg/dL (<2.0); WBC,Urine < 1.0 /HPF (0.0-6.0)
[2020-12-31] MEDS ORDERED: ONDANSETRON 4 MG/2 ML INJ IV PRN (12:52)
[2020-12-31] MEDS ORDERED: oxyCODONE /ACETAMINOPHEN 5-325MG TAB PO PRN (12:52)
[2020-12-31] MEDS ORDERED: NITROGLYCERIN 0.4 MG TAB SUBL SL PRN (12:52)
[2020-12-31] MEDS ORDERED: ACETAMINOPHEN 325 MG TAB PO PRN (12:52)
[2020-12-31] MEDS ORDERED: GABAPENTIN 800 MG PO SCH (13:00)
--- NOTE | 2020-12-31 13:10 | Consultation ---
History of Present Illness Consult date: 12/31/20 Consult reason: congestive heart failure History of present illness: This is a 80-year old F [facility] and has a history of coronary artery disease. A cardiac cath in 2016 showed a patent RCA stent, otherwise, non-obstructive disease, ejection fraction 60%. Yesterday, she went for a routine cardiac follow up, found with low oxygen saturation measurement. She is on home oxygen but does not use supplemental oxygen while out of the house. 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 She is admitted with shortness of breath, acute hypoxic respiratory failure, oxygen saturation at 84% on presentation. Chest x- ray reports mild interstitial edema. Currently, she is on isolation protocol and is being tested for COVID-19. Laboratory studies shows a HCT of 27.3. A cardiac consultation has been requested for CHF. Past History Past Medical History: anemia, arthritis, COPD, GERD, hypertension, hyperlipidemia. denies: acute [place], atrial fib, arrhythmia, CAD, cancer, diabetes, dialysis, DVT, ESRD, hepatitis, HIV/AIDS, hyperthyroidism, hypothyroidism, liver disease, pulmonary embolism, renal failure, seizures, stroke Past Surgical History: appendectomy, cholecystectomy Social history: lives with family, smoking. denies: alcohol abuse, prescription drug abuse, IV drug use Family history: hypertension Medications and Allergies Allergies Allergy/AdvReac Type Severity Reaction Status Date / Time Steroids Allergy Vomiting Uncoded 03/31/17 18:41 Home Medications Medication Instructions Recorded Confirmed Last Taken Type amLODIPine 5 mg PO QDAY #15 tablet 03/19/16 Unknown Rx Gabapentin 800 mg PO BID 12/31/20 12/31/20 Unknown History Gabapentin [Neurontin] 12/31/20 Unknown History Gabapentin [Neurontin] 1,600 mg PO HS 12/31/20 12/31/20 Unknown History HYDROcodone/APAP 10-325 1 tab PO TID PRN 12/31/20 12/31/20 Unknown History Tizanidine HCl 2 mg PO QHS 12/31/20 12/31/20 Unknown History Tizanidine HCl [Zanaflex 2mg CAP] 0.5 tab PO QAM 12/31/20 12/31/20 Unknown History Active Meds: Active Medications Acetaminophen (Acetaminophen 325 Mg Tab) 650 mg PO Q4H PRN PRN Reason: Pain MILD(1-3)/Fever >100.5/MONTIEL Carvedilol (Carvedilol 12.5 Mg Tab) 12.5 mg PO BID [facility] Famotidine (Famotidine 20 Mg/2 Ml Inj) 20 mg IV BID [facility] Furosemide (Furosemide 20 Mg Tab) 20 mg PO BID@0600,1800 [facility] Hydralazine HCl (Hydralazine 25 Mg Tab) 25 mg PO BID [facility] Losartan Potassium (Losartan 50 Mg Tab) 100 mg PO QDAY [facility] Miscellaneous Medication (Gabapentin) 800 mg PO BID [facility] Nitroglycerin (Nitroglycerin 0.4 Mg Tab Subl) 0.4 mg SL .Q5MIN PRN PRN Reason: Chest Pain Ondansetron HCl (Ondansetron 4 Mg/2 Ml Inj) 4 mg IV Q8H PRN PRN Reason: Nausea And Vomiting Oxycodone/Acetaminophen (Oxycodone /Acetaminophen 5-325mg Tab) 1 tab PO Q6H PRN PRN Reason: Pain, Moderate (4-6) Potassium Chloride (Potassium Chloride Er 20 Meq Tab) 20 meq PO QDAY [facility] Sodium Chloride (Sodium Chloride 0.9% 10 Ml Flush Syringe) 10 ml IV BID [facility] Sodium Chloride (Sodium Chloride 0.9% 10 Ml Flush Syringe) 10 ml IV PRN PRN PRN Reason: LINE FLUSH Physical Examination Vital Signs Resp Pulse Ox 22 93 12/31/20 08:30 12/31/20 08:30 Narrative exam: Deferred due to isolation protocol Results 12/31/20 Unknown 12/31/20 Unknown Cardiac Enzymes 12/31/20 Range/Units Unknown AST 14 (5-40) units/L Lactate Dehydrogenase 227 H (91-180) units/L Coagulation 12/31/20 Range/Units Unknown PT 12.8 (12.2-14.9) Sec. INR 0.97 (0.87-1.13) CBC 12/31/20 Range/Units Unknown WBC 7.0 (4.5-11.0) K/mm3 RBC 3.56 L (3.65-5.03) M/mm3 Hgb 8.5 L (10.1-14.3) gm/dl Hct 27.3 L (30.3-42.9) % Plt Count 306 (140-440) K/mm3 Comprehensive Metabolic Panel 02/04/21 Range/Units Unknown Sodium 139 (137-145) mmol/L Potassium 3.6 (3.6-5.0) mmol/L Chloride 98.5 (98-107) mmol/L Carbon Dioxide 36 H (22-30) mmol/L BUN 10 (7-17) mg/dL Creatinine 0.6 (0.6-1.2) mg/dL Glucose 118 H (65-100) mg/dL Calcium 8.8 (8.4-10.2) mg/dL AST 14 (5-40) units/L ALT 17 (7-56) units/L Alkaline Phosphatase 75 (35-129) units/L Total Protein 6.3 (6.3-8.2) g/dL Albumin 4.0 (3.9-5) g/dL Assessment and Plan Shortness of breath Hx of CAD 016 showed a patent RCA stent, otherwise, non-obstructive disease, ejection fraction 60%. Chronic lung disease / COPD Hypertension Continue tobacco abuse
[2020-12-31] MEDS: GABAPENTIN 400 MG CAP PO SCH ×2 (15:24→22:44)
[2020-12-31] MEDS: LOSARTAN 50 MG TAB PO SCH (15:24)
[2020-12-31] MEDS: hydrALAZINE 25 MG TAB PO SCH ×2 (15:25→21:51)
[2020-12-31] MEDS: POTASSIUM CHLORIDE ER 20 MEQ TAB PO SCH (15:25)
[2020-12-31] MEDS: carvediloL 12.5 MG TAB PO SCH ×2 (15:25→22:44)
[2020-12-31] MEDS: FAMOTIDINE 20 MG/2 ML INJ IV SCH ×2 (15:26→22:45)
[2020-12-31] MEDS: FUROSEMIDE 20 MG TAB PO SCH ×2 (20:10→20:18)
[2021-01-01] MEDS: FUROSEMIDE 20 MG TAB PO SCH (05:42)
[2021-01-01 07:19] LABS: Albumin 3.8 g/dL (3.9-5); Calcium 8.5 mg/dL (8.4-10.2)
--- NOTE | 2021-01-01 08:51 | Consultation ---
History of Present Illness Consult date: 01/01/21 Requesting physician: TAVIA MATHEW Reason for consult: COPD History of present illness: 80 y/o female, followed by Dr. Winkler for COPD admitted yesterday with hypoxic respiratory failure. Patient was seen by Dr. Winkler this past Monday (12/30) and was severely hypoxic in our office (70's). EMS was called at our office but patient refused to go. Apparently she went to cardiology yesterday (who sent her to see Peterson on Monday) and from there EMS was called again and this time she came. CXR shows cardiomegaly. Elevated right hemidiaphragm. Theres does appear to be vascular engorgement which could represent edema. BNP was 1900. In the ED, patient was given IV lasix and IV decadron as there was con cern for COVID. She was tested but appears that her sample was inadequate. This am she is on 3 liters NC and stable. Past History Past Medical History: anemia, arthritis, COPD, GERD, hypertension, hyperlipidemia. denies: acute [place], atrial fib, arrhythmia, CAD, cancer, diabetes, dialysis, DVT, ESRD, hepatitis, HIV/AIDS, hyperthyroidism, hypothyroidism, liver disease, pulmonary embolism, renal failure, seizures, stroke Past Surgical History: appendectomy, cholecystectomy Social history: lives with family, smoking. denies: alcohol abuse, prescription drug abuse, IV drug use Family history: hypertension Medications and Allergies Allergies Allergy/AdvReac Type Severity Reaction Status Date / Time Steroids Allergy Vomiting Uncoded 03/31/17 18:41 Home Medications Medication Instructions Recorded Confirmed Last Taken Type amLODIPine 5 mg PO QDAY #15 tablet 03/19/16 12/31/20 Unknown Rx Gabapentin 800 mg PO BID 12/31/20 12/31/20 Unknown History Gabapentin [Neurontin] 1,600 mg PO HS 12/31/20 12/31/20 Unknown History Gabapentin [Neurontin] 800 mg PO BID 12/31/20 12/31/20 Unknown History HYDROcodone/APAP 10-325 1 tab PO TID PRN 12/31/20 12/31/20 Unknown History Tizanidine HCl 2 mg PO QHS 12/31/20 12/31/20 Unknown History Tizanidine HCl [Zanaflex 2mg CAP] 0.5 tab PO QAM 12/31/20 12/31/20 Unknown History Active Meds: Active Medications Acetaminophen (Acetaminophen 325 Mg Tab) 650 mg PO Q4H PRN PRN Reason: Pain MILD(1-3)/Fever >100.5/MONTIEL Carvedilol (Carvedilol 12.5 Mg Tab) 12.5 mg PO BID [facility] Last Admin: 12/31/20 22:44 Dose: Not Given Documented by: Famotidine (Famotidine 20 Mg/2 Ml Inj) 20 mg IV BID [facility] Last Admin: 12/31/20 22:45 Dose: 20 mg Documented by: Furosemide (Furosemide 20 Mg Tab) 20 mg PO BID@0600,1800 [facility] Last Admin: 01/01/21 05:42 Dose: 20 mg Documented by: Gabapentin (Gabapentin 400 Mg Cap) 800 mg PO BID [facility] Last Admin: 12/31/20 22:44 Dose: Not Given Documented by: Hydralazine HCl (Hydralazine 25 Mg Tab) 25 mg PO BID [facility] Last Admin: 12/31/20 21:51 Dose: Not Given Documented by: Losartan Potassium (Losartan 50 Mg Tab) 100 mg PO QDAY [facility] Last Admin: 12/31/20 15:24 Dose: 100 mg Documented by: Nitroglycerin (Nitroglycerin 0.4 Mg Tab Subl) 0.4 mg SL .Q5MIN PRN PRN Reason: Chest Pain Ondansetron HCl (Ondansetron 4 Mg/2 Ml Inj) 4 mg IV Q8H PRN PRN Reason: Nausea And Vomiting Last Admin: 12/31/20 15:26 Dose: 4 mg Documented by: Oxycodone/Acetaminophen (Oxycodone /Acetaminophen 5-325mg Tab) 1 tab PO Q6H PRN PRN Reason: Pain, Moderate (4-6) Last Admin: 12/31/20 17:16 Dose: 1 tab Documented by: Potassium Chloride (Potassium Chloride Er 20 Meq Tab) 20 meq PO QDAY [facility] Last Admin: 12/31/20 15:25 Dose: 20 meq Documented by: Sodium Chloride (Sodium Chloride 0.9% 10 Ml Flush Syringe) 10 ml IV BID [facility] Last Admin: 12/31/20 22:45 Dose: 10 ml Documented by: Sodium Chloride (Sodium Chloride 0.9% 10 Ml Flush Syringe) 10 ml IV PRN PRN PRN Reason: LINE FLUSH Physical Examination Vital signs: Vital Signs Resp Pulse Ox 22 93 12/31/20 08:30 12/31/20 08:30 General appearance: no acute distress, alert Eyes: non-icteric ENT: oropharynx moist Neck: supple Effort: normal Ascultation: Bilateral: diminished breath sounds Results - Laboratory Findings CBC and BMP: 12/31/20 Unknown 01/01/21 05:24 PT/INR, D-dimer PT 12.8 Sec. (12.2-14.9) 12/31/20 Unknown INR 0.97 (0.87-1.13) 12/31/20 Unknown D-Dimer 510.39 ng/mlDDU (0-234) H 12/31/20 Unknown Abnormal lab findings: Abnormal Labs 12/31/20 12/31/20 12/31/20 Unknown Unknown Unknown RBC 3.56 L Hgb 8.5 L Hct 27.3 L MCV 77 L MCH 24 L RDW 25.7 H Seg Neuts % (Manual) 82.0 H Lymphocytes % (Manual) 11.0 L Lymphocytes # (Manual) 0.8 L D-Dimer 510.39 H Sodium Carbon Dioxide 36 H Creatinine Glucose 118 H Lactate Dehydrogenase 227 H NT-Pro-B Natriuret Pep 1926 H Total Protein Albumin Salicylates Acetaminophen 12/31/20 12/31/20 01/01/21 Unknown Unknown 05:24 RBC Hgb Hct MCV MCH RDW Seg Neuts % (Manual) Lymphocytes % (Manual) Lymphocytes # (Manual) D-Dimer Sodium 146 H D Carbon Dioxide 36 H Creatinine 1.3 H D Glucose Lactate Dehydrogenase NT-Pro-B Natriuret Pep Total Protein 6.2 L Albumin 3.8 L Salicylates < 0.3 L Acetaminophen 5.0 L - Diagnostic Findings Chest x-ray: image reviewed (Please see HPI) Assessment and Plan 80 y/o female with hypoxic respiratory failure secondary to CHF exacerbation vs COPD exacerbation or a combination of both. 1. Agree with diuresis and bp control 2. Consider repeat echo if not done in the last 6 months 3. Follow COVID testing, but given quick improvement, likelihood is low 4. Hold on steroids for right now 5. Thank you for this consult. Smoking cessation. May have some encephalopathy from chronic hypoxemia with hypoxic injury.
--- NOTE | 2021-01-01 09:29 | Progress Note ---
Assessment and Plan Assessment and plan: Acute hypoxic respiratory failure Acute COPD exacerbation Acute diastolic heart failure. Ejection fraction 60%. Coronary artery disease. Cardiac cath in 2016 showed a patent RCA stent, non-obstructive disease Anemia of chronic disease. GERD Hypertension Hyperlipidemia Osteoarthritis Tobacco abuse. 01/01/2021. Covid testing found to be negative. Dexamethasone discontinued. Patient will be transferred to telemetry floor. Continue beta-adriane with Coreg, diuresis with Lasix and afterload reduction with losartan/hydralazine. Cardiology and pulmonary following. History Interval history: No new issues overnight. Hospitalist Physical - Constitutional Vitals: Temp Pulse Resp BP Pulse Ox 98.8 F 68 16 142/62 94 01/01/21 04:23 12/31/20 22:00 01/01/21 04:23 01/01/21 04:23 01/01/21 08:54 General appearance: Present: no acute distress, well-nourished - EENT Eyes: Present: PERRL, EOM intact ENT: hearing intact, clear oral mucosa, dentition normal - Neck Neck: Present: supple, normal ROM - Respiratory Respiratory effort: normal Respiratory: bilateral: CTA - Cardiovascular Rhythm: regular Heart Sounds: Present: S1 & S2. Absent: gallop, rub - Extremities Extremities: no ischemia, No edema, Full ROM - Abdominal General gastrointestinal: soft, non-tender, non-distended, normal bowel sounds - Integumentary Integumentary: Present: clear, warm, dry - Neurologic Neurologic: CNII-XII intact, moves all extremities HEART Score - HEART Score Troponin: Troponin T < 0.010 ng/mL (0.00-0.029) 12/31/20 Unknown Results - Labs CBC & Chem 7: 12/31/20 Unknown 01/01/21 05:24 Labs: Laboratory Last Values WBC 7.0 K/mm3 (4.5-11.0) 12/31/20 Unknown RBC 3.56 M/mm3 (3.65-5.03) L 12/31/20 Unknown Hgb 8.5 gm/dl (10.1-14.3) L 12/31/20 Unknown Hct 27.3 % (30.3-42.9) L 12/31/20 Unknown MCV 77 fl (79-97) L 12/31/20 Unknown MCH 24 pg (28-32) L 12/31/20 Unknown MCHC 31 % (30-34) 12/31/20 Unknown RDW 25.7 % (13.2-15.2) H 12/31/20 Unknown Plt Count 306 K/mm3 (140-440) 12/31/20 Unknown Add Manual Diff Complete 12/31/20 Unknown Total Counted 100 12/31/20 Unknown Seg Neuts % (Manual) 82.0 % (40.0-70.0) H 12/31/20 Unknown Lymphocytes % (Manual) 11.0 % (13.4-35.0) L 12/31/20 Unknown Monocytes % (Manual) 3.0 % (0.0-7.3) 12/31/20 Unknown Eosinophils % (Manual) 4.0 % (0.0-4.3) 12/31/20 Unknown Nucleated RBC % Not Reportable 12/31/20 Unknown Seg Neutrophils # Man 5.7 K/mm3 (1.8-7.7) 12/31/20 Unknown Band Neutrophils # 0.0 K/mm3 12/31/20 Unknown Lymphocytes # (Manual) 0.8 K/mm3 (1.2-5.4) L 12/31/20 Unknown Abs React Lymphs (Man) 0.0 K/mm3 12/31/20 Unknown Monocytes # (Manual) 0.2 K/mm3 (0.0-0.8) 12/31/20 Unknown Eosinophils # (Manual) 0.3 K/mm3 (0.0-0.4) 12/31/20 Unknown Basophils # (Manual) 0.0 K/mm3 (0.0-0.1) 12/31/20 Unknown Metamyelocytes # 0.0 K/mm3 12/31/20 Unknown Myelocytes # 0.0 K/mm3 12/31/20 Unknown Promyelocytes # 0.0 K/mm3 12/31/20 Unknown Blast Cells # 0.0 K/mm3 12/31/20 Unknown WBC Morphology Not Reportable 12/31/20 Unknown Hypersegmented Neuts Not Reportable 12/31/20 Unknown Hyposegmented Neuts Not Reportable 12/31/20 Unknown Hypogranular Neuts Not Reportable 12/31/20 Unknown Smudge Cells Not Reportable 12/31/20 Unknown Toxic Granulation Not Reportable 12/31/20 Unknown Toxic Vacuolation Not Reportable 12/31/20 Unknown Dohle Bodies Not Reportable 12/31/20 Unknown Pelger-Huet Anomaly Not Reportable 12/31/20 Unknown Luis Rods Not Reportable 12/31/20 Unknown Platelet Estimate Consistent w auto 12/31/20 Unknown Clumped Platelets Not Reportable 12/31/20 Unknown Plt Clumps, EDTA Not Reportable 12/31/20 Unknown Large Platelets Not Reportable 12/31/20 Unknown Giant Platelets Not Reportable 12/31/20 Unknown Platelet Satelliting Not Reportable 12/31/20 Unknown Plt Morphology Comment Not Reportable 12/31/20 Unknown RBC Morphology Not Reportable 12/31/20 Unknown Dimorphic RBCs Not Reportable 12/31/20 Unknown Polychromasia Rare 12/31/20 Unknown Hypochromasia 2+ 12/31/20 Unknown Poikilocytosis 1+ 12/31/20 Unknown Anisocytosis 2+ 12/31/20 Unknown Microcytosis Not Reportable 12/31/20 Unknown Macrocytosis Not Reportable 12/31/20 Unknown Spherocytes Not Reportable 12/31/20 Unknown Pappenheimer Bodies Not Reportable 12/31/20 Unknown Sickle Cells Not Reportable 12/31/20 Unknown Target Cells Rare 12/31/20 Unknown Tear Drop Cells Few 12/31/20 Unknown Ovalocytes Not Reportable 12/31/20 Unknown Helmet Cells Not Reportable 12/31/20 Unknown [place] Bodies Not Reportable 12/31/20 Unknown [place] Rings Not Reportable 12/31/20 Unknown Yumi Cells Not Reportable 12/31/20 Unknown Bite Cells Not Reportable 12/31/20 Unknown Crenated Cell Not Reportable 12/31/20 Unknown Elliptocytes Few 12/31/20 Unknown Acanthocytes (Spur) Not Reportable 12/31/20 Unknown Rouleaux Not Reportable 12/31/20 Unknown Hemoglobin C Crystals Not Reportable 12/31/20 Unknown Schistocytes Not Reportable 12/31/20 Unknown Malaria parasites Not Reportable 12/31/20 Unknown Shahriar Bodies Not Reportable 12/31/20 Unknown Hem Pathologist Commnt No 12/31/20 Unknown PT 12.8 Sec. (12.2-14.9) 12/31/20 Unknown INR 0.97 (0.87-1.13) 12/31/20 Unknown D-Dimer 510.39 ng/mlDDU (0-234) H 12/31/20 Unknown Sodium 146 mmol/L (137-145) H D 01/01/21 05:24 Potassium 3.7 mmol/L (3.6-5.0) 01/01/21 05:24 Chloride 99.1 mmol/L (98-107) 01/01/21 05:24 Carbon Dioxide 36 mmol/L (22-30) H 01/01/21 05:24 Anion Gap 15 mmol/L 01/01/21 05:24 BUN 16 mg/dL (7-17) 01/01/21 05:24 Creatinine 1.3 mg/dL (0.6-1.2) H D 01/01/21 05:24 Estimated GFR 48 ml/min 01/01/21 05:24 BUN/Creatinine Ratio 12 % 01/01/21 05:24 Glucose 95 mg/dL (65-100) 01/01/21 05:24 Lactic Acid 1.40 mmol/L (0.7-2.0) 12/31/20 09:03 Calcium 8.5 mg/dL (8.4-10.2) 01/01/21 05:24 Magnesium 1.90 mg/dL (1.7-2.3) 12/31/20 Unknown Ferritin 14.5 ng/mL (10.0-200.0) 12/31/20 Unknown Total Bilirubin 0.60 mg/dL (0.1-1.2) 01/01/21 05:24 AST 11 units/L (5-40) 01/01/21 05:24 ALT 13 units/L (7-56) 01/01/21 05:24 Alkaline Phosphatase 69 units/L (35-129) 01/01/21 05:24 Lactate Dehydrogenase 227 units/L (91-180) H 12/31/20 Unknown Total Creatine Kinase 97 units/L (30-135) 12/31/20 Unknown Troponin T < 0.010 ng/mL (0.00-0.029) 12/31/20 Unknown C-Reactive Protein 0.10 mg/dL (0.00-1.30) 12/31/20 Unknown NT-Pro-B Natriuret Pep 1926 pg/mL (0-900) H 12/31/20 Unknown Total Protein 6.2 g/dL (6.3-8.2) L 01/01/21 05:24 Albumin 3.8 g/dL (3.9-5) L 01/01/21 05:24 Albumin/Globulin Ratio 1.6 % 01/01/21 05:24 Procalcitonin < 0.05 ng/mL (<0.15) 12/31/20 Unknown TSH 1.100 mlU/mL (0.270-4.200) 12/31/20 Unknown Urine Color Straw (Yellow) 12/31/20 10:41 Urine Turbidity Clear (Clear) 12/31/20 10:41 Urine pH 7.0 (5.0-7.0) 12/31/20 10:41 Ur Specific Scenic 1.008 (1.003-1.030) 12/31/20 10:41 Urine Protein <15 mg/dl mg/dL (Negative) 12/31/20 10:41 Urine Glucose (UA) Neg mg/dL (Negative) 12/31/20 10:41 Urine Ketones Neg mg/dL (Negative) 12/31/20 10:41 Urine Blood Sm (Negative) 12/31/20 10:41 Urine Nitrite Neg (Negative) 12/31/20 10:41 Urine Bilirubin Neg (Negative) 12/31/20 10:41 Urine Urobilinogen < 2.0 mg/dL (<2.0) 12/31/20 10:41 Ur Leukocyte Esterase Neg (Negative) 12/31/20 10:41 Urine WBC (Auto) < 1.0 /HPF (0.0-6.0) 12/31/20 10:41 Urine RBC (Auto) 1.0 /HPF (0.0-6.0) 12/31/20 10:41 U Epithel Cells (Auto) < 1.0 /HPF (0-13.0) 12/31/20 10:41 Salicylates < 0.3 mg/dL (2.8-20.0) L 12/31/20 Unknown Acetaminophen 5.0 ug/mL (10.0-30.0) L 12/31/20 Unknown Plasma/Serum Alcohol < 0.01 % (0-0.07) 12/31/20 Unknown Coronavirus (PCR) Negative (Negative) 12/31/20 09:20 Microbiology: Microbiology 12/31/20 09:03 Peripheral/Venous Blood Culture - Preliminary Culture in Progress 12/31/20 09:03 Peripheral/Venous Blood Culture - Preliminary Culture in Progress Bhandari/IV: Voiding Method Bedside Commode IV Catheter Type [Right INT / Saline Lock Antecubital] Active Medications - Current Medications Current Medications: Generic Name Dose Route Start Last Admin Trade Name Freq PRN Reason Stop Dose Admin Acetaminophen 650 mg 12/31/20 12:52 Acetaminophen 325 Mg Tab PO Q4H PRN Pain MILD(1-3)/Fever >100.5/MONTIEL Carvedilol 12.5 mg 12/31/20 13:00 12/31/20 22:44 Carvedilol 12.5 Mg Tab PO Not Given BID PAULINA Famotidine 20 mg 01/01/21 10:00 Famotidine 20 Mg/2 Ml Inj IV DAILY PAULINA Furosemide 20 mg 12/31/20 18:00 01/01/21 05:42 Furosemide 20 Mg Tab PO 20 mg BID@0600,1800 PAULINA Administration Gabapentin 800 mg 12/31/20 14:00 12/31/20 22:44 Gabapentin 400 Mg Cap PO Not Given BID PAULINA Hydralazine HCl 25 mg 12/31/20 13:00 12/31/20 21:51 Hydralazine 25 Mg Tab PO Not Given BID PAULINA Losartan Potassium 100 mg 12/31/20 13:00 12/31/20 15:24 Losartan 50 Mg Tab PO 100 mg QDAY PAULINA Administration Nitroglycerin 0.4 mg 12/31/20 12:52 Nitroglycerin 0.4 Mg Tab Subl SL .Q5MIN PRN Chest Pain Ondansetron HCl 4 mg 12/31/20 12:52 12/31/20 15:26 Ondansetron 4 Mg/2 Ml Inj IV 4 mg Q8H PRN Administration Nausea And Vomiting Oxycodone/Acetaminophen 1 tab 12/31/20 12:52 12/31/20 17:16 Oxycodone /Acetaminophen 5-325mg Tab PO 1 tab Q6H PRN Administration Pain, Moderate (4-6) Potassium Chloride 20 meq 12/31/20 13:00 12/31/20 15:25 Potassium Chloride Er 20 Meq Tab PO 20 meq QDAY PAULINA Administration Sodium Chloride 10 ml 12/31/20 13:00 12/31/20 22:45 Sodium Chloride 0.9% 10 Ml Flush Syringe IV 10 ml BID PAULINA Administration Sodium Chloride 10 ml 12/31/20 12:52 Sodium Chloride 0.9% 10 Ml Flush Syringe IV PRN PRN LINE FLUSH
[2021-01-01] MEDS: POTASSIUM CHLORIDE ER 20 MEQ TAB PO SCH (09:43)
[2021-01-01] MEDS: GABAPENTIN 400 MG CAP PO SCH (09:43)
[2021-01-01] MEDS: hydrALAZINE 25 MG TAB PO SCH (09:43)
[2021-01-01] MEDS: carvediloL 12.5 MG TAB PO SCH (09:44)
[2021-01-01] MEDS: LOSARTAN 50 MG TAB PO SCH (09:44)
[2021-01-01] MEDS ORDERED: FAMOTIDINE 20 MG/2 ML INJ IV SCH (10:00)
--- NOTE | 2021-01-01 10:12 | Progress Note ---
Assessment and Plan Acute hypoxic respiratory failure Hx of CAD 2016 [facility] showed a patent RCA stent, otherwise, non-obstructive disease, ejection fraction 60%. Chronic lung disease /COPD exacerbation Hypertension Continue tobacco abuse Recommendations: Continue medical management for underlying coronary artery disease. Otherwise, conservative cardiac management. Subjective Date of service: 01/01/21 Interval history: Patient is resting in bed comfortably, on 3 liters oxygen via NC. No distress noted. No cardiac complaints. Objective Vital Signs Temp Pulse Pulse Resp BP BP Pulse Ox 01/01/21 09:44 142/62 01/01/21 09:43 142/62 01/01/21 08:54 94 01/01/21 04:23 98.8 F 16 142/62 12/31/20 22:44 119/55 12/31/20 22:00 68 12/31/20 21:51 119/55 12/31/20 21:28 97.6 F 16 119/55 12/31/20 21:08 94 12/31/20 18:16 18 12/31/20 15:25 75 18 158/58 95 12/31/20 15:24 158/58 12/31/20 15:04 99.1 F 20 12/31/20 11:07 98.5 F 75 15 193/83 97 12/31/20 10:41 75 17 192/83 97 - Physical Examination General: No Apparent Distress HEENT: Positive: PERRL Neck: Positive: trachea midline Cardiac: Positive: Reg Rate and Rhythm Lungs: Positive: Decreased Breath Sounds Neuro: Positive: Grossly Intact - Labs and Meds Cardiac Enzymes 01/01/21 Range/Units 05:24 AST 11 (5-40) units/L Comprehensive Metabolic Panel 01/01/21 Range/Units 05:24 Sodium 146 H D (137-145) mmol/L Potassium 3.7 (3.6-5.0) mmol/L Chloride 99.1 (98-107) mmol/L Carbon Dioxide 36 H (22-30) mmol/L BUN 16 (7-17) mg/dL Creatinine 1.3 H D (0.6-1.2) mg/dL Glucose 95 (65-100) mg/dL Calcium 8.5 (8.4-10.2) mg/dL AST 11 (5-40) units/L ALT 13 (7-56) units/L Alkaline Phosphatase 69 (35-129) units/L Total Protein 6.2 L (6.3-8.2) g/dL Albumin 3.8 L (3.9-5) g/dL
--- NOTE | 2021-01-01 13:04 | Discharge Summary ---
Providers - Providers Date of Admission: 12/31/20 10:15 Date of discharge: 01/01/21 Attending physician: TAVIA MATHEW 12/31/20 10:06 Consult to Physician [CONS] Urgent Comment: Consulting Provider: NEDRA LAU Physician Instructions: Reason For Exam: chf 12/31/20 14:27 Consult to Physician [CONS] Routine Comment: Consulting Provider: MICHEAL WINKLER Physician Instructions: Reason For Exam: SOB, hypoxemia, COPD exacerbation Primary care physician: HOME COORDINATOR Hospitalization Reason for admission: copd exac, chf exac, resp failure Condition: Fair Hospital course: Patient is a 80-year-old female with a history of COPD, congestive heart failure, hypertension presents with a 3-day history of shortness of breath hypoxemia. Patient was initially seen in chemical test engineer office for shortness of breath. Was then sent for follow-up with leaf sorter Dr. Winkler. From there patient was referred to the ED. Upon presentation was found to be hypoxemic with sats in the 70s and 80s currently hemodynamically stable with supplemental O2. Patient stated she has had a history of congestive heart failure however stopped taking medications for her blood pressure and Lasix several years ago. Patient very poor historian keeps saying weight let me get my thoughts together. Patient stated occasionally she gets short of breath and is from her smoking and her COPD. Pt admitted with dx of CHF exac, COPD exac, Resp failure with hypoxia and med noncompliance. Pt. was seen by cardilogy and pulm in consultation. Pt. received diuresis with lasix and 1 dose of steroids with significant improvement of sxs. Cardiology recommended resumption of same home medicines and importance of medical compliance expressed. Dedicated d/c time 35 min. Disposition: -01 TO HOME OR SELFCARE Time spent for discharge: 35 - Discharge Diagnoses (1) Medical non-compliance Status: Acute (2) Acute CHF Status: Acute (3) Acute respiratory failure with hypoxia Status: Acute (4) COPD with acute exacerbation Status: Acute Core Measure Documentation - Palliative Care Palliative Care/ Comfort Measures: Not Applicable - Core Measures Any of the following diagnoses?: none Exam - Constitutional Vitals: Temp Pulse Resp BP Pulse Ox 98.6 F 67 18 133/54 97 01/01/21 11:41 01/01/21 11:41 01/01/21 11:41 01/01/21 11:41 01/01/21 11:41 General appearance: Present: no acute distress, well-nourished - EENT Eyes: Present: PERRL ENT: hearing intact, clear oral mucosa - Neck Neck: Present: supple, normal ROM - Respiratory Respiratory effort: normal Respiratory: bilateral: CTA - Cardiovascular Heart Sounds: Present: S1 & S2. Absent: rub, click - Extremities Extremities: pulses symmetrical, No edema Peripheral Pulses: within normal limits - Abdominal General gastrointestinal: Present: soft, non-tender, non-distended, normal bowel sounds Female genitourinary: Present: normal - Integumentary Integumentary: Present: clear, warm, dry - Musculoskeletal Musculoskeletal: gait normal, strength equal bilaterally - Psychiatric Psychiatric: appropriate mood/affect, intact judgment & insight - Neurologic Neurologic: CNII-XII intact, moves all extremities Plan Activity: advance as tolerated Weight Bearing Status: Weight Bear as Tolerated Diet: low fat, low cholesterol, low salt Follow up with: SUSAN DUMONT MD [Staff Physician] - 7 Days PRIMARY MD TYREE [Primary Care Provider] - 7 Days NERDA LAU MD [Staff Physician] - 7 Days
[2021-01-01 16:32] VITALS: BP 121/79
== END 2021-01-01 16:42 | disposition home or self-care (01) ==
LOC: ED 08:33 → 3A 10:15 → 4A 01-01 14:52
PROVIDERS: ADMIT Hospitalist; ATTEND Hospitalist
DX: J96.01 Acute respiratory failure with hypoxia (principal); Z20.828 Contact with and (suspected) exposure to other viral communicable diseases; I16.0 Hypertensive urgency; I13.2 Hypertensive heart and chronic kidney disease with heart failure and with stage 5 chronic kidney disease, or end stage renal disease; I50.9 Heart failure, unspecified; N18.6 End stage renal disease; D50.0 Iron deficiency anemia secondary to blood loss (chronic); M19.90 Unspecified osteoarthritis, unspecified site; J44.9 Chronic obstructive pulmonary disease, unspecified; I25.10 Atherosclerotic heart disease of native coronary artery without angina pectoris; K21.9 Gastro-esophageal reflux disease without esophagitis; E78.5 Hyperlipidemia, unspecified; E66.9 Obesity, unspecified; F17.200 Nicotine dependence, unspecified, uncomplicated; Z90.49 Acquired absence of other specified parts of digestive tract; Z98.890 Other specified postprocedural states; Z99.2 Dependence on renal dialysis; Z91.14 Patient's other noncompliance with medication regimen; Z68.33 Body mass index [BMI] 33.0-33.9, adult
CPT/HCPCS: 36415; 71045; 80053; 81001; 82140; 82550; 82728; 83615; 83735; 83880; 84145; 84443; 84484; 85025; 85379; 85610; 86140; 87040; 87086; 93005; 94760; 96374; 96375; 96376; 99291; G0378; J1100; J1940; J2405; U0003; 80320; 85007; G0480

== ENCOUNTER 2021-11-17 22:32 | Inpatient (IN) | payer MEDICARE ==
[2021-11-18] MEDS ORDERED: IPRATROPIUM/ALBUTEROL SULFATE 3 ML AMPUL.NEB IH ONE (00:04)
--- NOTE | 2021-11-18 00:32 | Emergency Department Report ---
HPI - General Chief Complaint: Dyspnea/Respdistress Time Seen by Provider: 11/17/21 23:57 - HPI HPI: 81-year-old female with history of CAD, CHF, pulmonary hypertension, and COPD brought in by EMS with severely altered mental status/unresponsiveness. Acc ording to the EMS report, the initial call out was for shortness of breath and difficulty breathing. When they arrived the patient was minimally responsive and in respiratory distress. They have transported the patient multiple times before and said that she has a history of frequent COPD exacerbations. For that reason she was given 125 mg of Solu-Medrol and 2 mg of magnesium. However, the patient's respiratory status worsened in route and she became very dyspneic. The nurse that she had pinpoint pupils and gave 1 mg of Narcan with subsequent improvement in her respirations. She was given another dose of Narcan upon arrival to the emergency department but her altered mental status never improved. The patient is unresponsive and unable to participate in the interview. Therefore further details of the HPI are highly limited due to the patient's current clinical condition ED Past Medical Hx - Past Medical History Hx Hypertension: Yes Hx Heart Attack/AMI: Yes Hx GERD: Yes Hx Arthritis: Yes Hx COPD: Yes Additional medical history: back pain-CHRONIC. SINUS / ALLERGIES. HIGH CHOLESTEROL. NEUROPATHY. Emphysema - Surgical History Hx Cholecystectomy: Yes Additional Surgical History: PARTIAL hysterectomy. RIGHT KIDNEY SURGERY? - Social History Smoking Status: Former Smoker - Medications Home Medications: Home Medications Medication Instructions Recorded Confirmed Last Taken Type Gabapentin [Neurontin] 800 mg PO BID 12/31/20 01/21/21 Unknown History Tizanidine HCl 2 mg PO QHS 12/31/20 01/21/21 Unknown History carvediloL [Coreg] 12.5 mg PO BID tablet 01/01/21 01/21/21 Unknown Rx HYDROcodone/APAP 10-325 [[place] 1 each PO Q8HR PRN 01/21/21 01/21/21 Unknown History 10-325 mg TAB] Isosorbide Mononitrate [Isosorbide 120 mg PO DAILY 01/21/21 01/21/21 Unknown History Mononitrate ER] Losartan [Cozaar] 100 mg PO QDAY 01/21/21 01/21/21 Unknown History Pantoprazole [Protonix TAB] 40 mg PO QDAY 01/21/21 01/21/21 Unknown History amLODIPine 10 mg PO QDAY 01/21/21 01/21/21 Unknown History Albuterol Mdi (or & Nicu Only) 2 puff IH QID PRN #8.5 gram 01/24/21 Unknown Rx [ProAir HFA Inhaler] Aspirin EC [Halfprin EC] 81 mg PO QDAY #30 tablet 01/24/21 Unknown Rx Azithromycin [Zithromax TAB] 500 mg PO QDAY #3 tablet 01/24/21 Unknown Rx Furosemide [Lasix TAB] 40 mg PO QDAY #30 tablet 01/24/21 Unknown Rx Potassium Chloride 10 meq PO DAILY #30 tablet.er 01/24/21 Unknown Rx ED Review of Systems ROS: Stated complaint: SAVANNAH/OD Other details as noted in HPI Comment: Unobtainable due to pts medical conditions Physical Exam - Physical Exam Physical Exam: GENERAL: Well developed. Obtunded and unresponsive. In respiratory distress. HEAD: Normocephalic. No obvious signs of trauma. ENT: Dry mucous membranes. EYES: Pupils are equal round and reactive to light bilaterally NECK: Supple. Trachea is midline. LUNGS: Respiratory distress with accessory muscle use. Equal chest rise bilaterally. Decreased breath sounds throughout scattered rales. CARDIOVASCULAR: Regular rate and rhythm. No murmurs or rubs. VASCULAR: Cap refill < 2 seconds ABDOMEN: Abdomen is soft and nondistended. SKIN: Skin is warm and dry NEURO: Patient is unresponsive to sternal rub. GCS of 5 MUSCULOSKELETAL: No obvious deformities. - Intubation Sedative: Etomidate Mg Given: 20 Paralytic: Rocuronium Mg Given: 100 Laryngoscope: fiberoptic video scope Assist Device Used: fiberoptic device ET Tube Size: 8 Tube Secured Depth (cm): 22 Tube Secured Location: teeth Tube Placement Confirmation: visualized tube passing t, equal breath sounds bilat, confirmation by capnometr Intubation Complications: none ED Medical Decision Making - Lab Data Result diagrams: 11/18/21 15:47 11/18/21 18:45 - Medical Decision Making 81-year-old female with history of COPD, CAD, and CHF with severe pulmonary hy pertension brought in by EMS after she was found unresponsive in respiratory distress. She reportedly complained of shortness of breath. The patient was given 125 mg of Solu-Medrol 2 mg of magnesium and Narcan in route without improvement in her mental status. Upon arrival in the emergency department, she is afebrile, hypertensive, and with oxygen saturation in the low 90s on nonrebreather. She is unresponsive to sternal rub and with GCS of 5. Lung auscultation reveals decreased breath sounds with scattered rales. Given that the patient is not protecting her airway we prepared for intubation. In the meantime I ordered DuoNeb's. While preparing for intubation I reviewed the patient's medical record including her listed allergy of steroids which were reportedly given in route. While preparing for intubation she was noted to have swelling of her lips and tongue concerning for angioedema. She was given 0.3 mg of subQ epinephrine and intubation proceeded without complication, although I was able to visualize edema of the airway with the kaleidoscope during intubation. Chest x-ray reveals pulmonary infiltrates consistent with edema versus pneumonia. I have therefore ordered IV ceftriaxone and azithromycin for suspected pneumonia. Labs reveal leukocytosis with white blood cell count of 15.6 and hemoglobin of 14.8. BNP is within normal limits. Lactic acid is within normal limits. Urinalysis reveals findings consistent with urinary tract infection. I have ordered 1 L of IV fluids and patient has already received antibiotics. CT of the head, chest, abdomen, and pelvis has been ordered to assess for intracranial bleeding or mass to explain the patient's presentation, or intrathoracic versus intra-abdominal abnormality to to explain the patient's presentation with severely altered mental status and hypoxic respiratory failure. I spoke with Dr. Perez, the on-call hospitalist regarding the case accepts patient for admission he understands that CT scans are still pending. I spoke with funeral home makeup artist regarding the case and have placed an order for consult. CT scans will be followed up by Dr. Saravanan Sheets Critical Care Time: Yes Critical care time in (mins) excluding proc time.: 45 Critical care attestation.: If time is entered above; I have spent that time in minutes in the direct care of this critically ill patient, excluding procedure time. Critical care time was spent in the evaluation/assessment, work-up, and management of hypoxic respiratory failure requiring intubation, angioedema/anaphylaxis requiring epinephrine, as well as frequent reevaluation reassessment. ED Disposition Clinical Impression: Sepsis with acute hypoxic respiratory failure, COPD exacerbation, Urinary tract infection, Altered mental status, Pneumonia Disposition: 09 ADMITTED INPATIENT Is pt being admited?: Yes Condition: Critical
[2021-11-18] MEDS ORDERED: ROCURONIUM 50 MG/5 ML INJ IV ONE ×2 (00:35→00:47)
[2021-11-18] MEDS ORDERED: ETOMIDATE 20 MG/10 ML INJ IV ONE ×2 (00:35→00:47)
[2021-11-18] MEDS ORDERED: EPINEPHrine/PF 1 MG/1 ML INJ ONE (00:42)
--- NOTE | 2021-11-18 01:11 | XRay Report ---
CHEST 1 VIEW 11/18/2021 12:00 AM INDICATION / CLINICAL INFORMATION: ams. COMPARISON: One view of the chest from 01/21/2021. FINDINGS: SUPPORT DEVICES: None. HEART / MEDIASTINUM: Stable. LUNGS / PLEURA: Lung volumes are reduced with increased bilateral interstitial and airspace opacities compared to the prior exam. No significant pleural effusion. No pneumothorax. ADDITIONAL FINDINGS: No significant additional findings. IMPRESSION: 1. Nonspecific bilateral pulmonary opacities may represent edema/atelectasis or pneumonia. Please cor relate with clinical findings. Signer Name: Bigg Bustillo MD Signed: 11/18/2021 1:07 AM Workstation Name: [id number]
[2021-11-18 01:25] LABS: Mean Corpuscular HGB Conc 30 % (30-34); Mean Corpuscular Volume 89 fl (79-97); Platelet Count 306 K/mm3 (140-440); Red Blood Count 5.59 M/mm3 (3.65-5.03); Red Cell Distribution Width 16.9 % (13.2-15.2)
[2021-11-18] MEDS ORDERED: CEFEPIME/NS 2 GM/100 ML 2 GM/100 ML BAG IV ONE (01:27)
[2021-11-18 01:28] LABS: Hematocrit 49.8 % (30.3-42.9); Hemoglobin 14.8 gm/dl (10.1-14.3)
[2021-11-18] MEDS ORDERED: AZITHROMYCIN/NS 500 MG/250 ML 500 MG/250 ML BAG IV ONE (01:28)
[2021-11-18 01:35] LABS: INR 0.88 (0.87-1.13)
[2021-11-18 01:36] LABS: Partial Thromboplastin Time 29.2 Sec. (24.2-36.6)
[2021-11-18 01:54] LABS: Bilirubin,Urine NEG (Negative); Blood,Urine SM (Negative); Color,Urine Yellow (Yellow); Hyaline Casts,Urine 3 /LPF; Mucus,Urine FEW /HPF; Urobilinogen,Urine < 2.0 mg/dL (<2.0)
[2021-11-18 02:06] LABS: Amphetamine Screen,Urine Negative; Benzodiazepines Screen,Urine Negative; Cannabinoid Screen,Urine Negative; Cocaine Screen,Urine Negative; Methadone Screen,Urine Negative; Opiate Screen,Urine Negative
[2021-11-18 02:14] LABS: Alanine Aminotransferase 25 units/L (7-56); BUN/Creatinine Ratio 11; Bilirubin,Direct < 0.2 mg/dL (0-0.2); Blood Urea Nitrogen 10 mg/dL (7-17); Calcium 9.2 mg/dL (8.4-10.2); Hemolysis Index 29
[2021-11-18] MEDS ORDERED: SODIUM CHLORIDE 0.9% 1000 ML 1,000 ML IV ONE ×2 (02:22→02:31)
[2021-11-18 02:26] LABS: ABG Base Excess 7.8 mmol/L (-2.0-3.0); ABG HCO3 35.8 mmol/L (20.0-26.0); ABG Methemoglobin 0.6 % (0.0-1.5); ABG Oxygen Saturation 96.8 % (95.0-99.0); ABG PH 7.359 pH Units (7.350-7.450); ABG PO2 89.5 mm Hg (80.0-90.0)
[2021-11-18] MEDS ORDERED: MAGNESIUM HYDROXIDE (MOM) ORAL LIQD UDC PO PRN (03:10)
[2021-11-18] MEDS ORDERED: MORPHINE 2 MG/1 ML INJ IV PRN (03:10)
[2021-11-18] MEDS ORDERED: ONDANSETRON 4 MG/2 ML INJ IV PRN (03:10)
[2021-11-18] MEDS ORDERED: MORPHINE 4 MG/1 ML INJ IV PRN (03:10)
[2021-11-18] MEDS ORDERED: MIDAZOLAM 2 MG/2 ML INJ IV PRN (03:12)
[2021-11-18] MEDS ORDERED: MIDAZOLAM 100 MG in SODIUM CHLORIDE 0.9% 80 ML IV SCH (03:12)
[2021-11-18] MEDS ORDERED: SODIUM CHLORIDE 0.9% 1000 ML 1,000 ML IV SCH (03:15)
--- NOTE | 2021-11-18 03:33 | History and Physical Report ---
History of Present Illness Date of examination: 11/18/21 Date of admission: 11/18/2021 Chief complaint: Altered mental Status Unresponsiveness History of present illness: 81-year-old female with known history of coronary artery disease, CHF, pulmonary hypertension and COPD brought into the emergency room via EMS for altered mental status and unresponsiveness. Most of the history was gotten from the ER staff as patient was already intubated in the emergency room. According to EMS patient was said to be having difficulty breathing was minimally responsive but in respiratory distress initially. She is well-known to EMS service as she had been transported on multiple occasions for COPD exacerbations. Respiratory status was said to have worsened in route to the hospital and patient had been given Solu-Medrol and magnesium IV. However she was said to have developed pinpoint pupils and was given some Narcan with some improvement. Work-up in the emergency room today, labs were significant for leukocytosis of 15.6, D-dimer of 464. Urinalysis was significant for UTI. Chest x-ray shows bilateral pulmonary opacities possibly representing edema/atelectasis or pneumonia. CT of the chest shows evidence of pulmonary hypertension with dense consolidation along the left lower lobe that is concerning for pneumonia. Mild interstitial pulmonary edema. Past History Past Medical History: acute [place], arthritis, COPD, GERD, hypertension, other (back pain-CHRONIC. SINUS / ALLERGIES. HIGH CHOLESTEROL. NEUROPATHY. Emphysema) Past Surgical History: cholecystectomy Social history: smoking (Former Smoker) Family history: no significant family history Medications and Allergies Allergies Allergy/AdvReac Type Severity Reaction Status Date / Time Steroids Allergy Vomiting Uncoded 11/18/21 00:14 Home Medications Medication Instructions Recorded Confirmed Last Taken Type Gabapentin [Neurontin] 800 mg PO BID 12/31/20 01/21/21 Unknown History Tizanidine HCl 2 mg PO QHS 12/31/20 01/21/21 Unknown History carvediloL [Coreg] 12.5 mg PO BID tablet 01/01/21 01/21/21 Unknown Rx HYDROcodone/APAP 10-325 [[place] 1 each PO Q8HR PRN 01/21/21 01/21/21 Unknown Hist ory 10-325 mg TAB] Isosorbide Mononitrate [Isosorbide 120 mg PO DAILY 01/21/21 01/21/21 Unknown History Mononitrate ER] Losartan [Cozaar] 100 mg PO QDAY 01/21/21 01/21/21 Unknown History Pantoprazole [Protonix TAB] 40 mg PO QDAY 01/21/21 01/21/21 Unknown History amLODIPine 10 mg PO QDAY 01/21/21 01/21/21 Unknown History Albuterol Mdi (or & Nicu Only) 2 puff IH QID PRN #8.5 gram 01/24/21 Unknown Rx [ProAir HFA Inhaler] Aspirin EC [Halfprin EC] 81 mg PO QDAY #30 tablet 01/24/21 Unknown Rx Azithromycin [Zithromax TAB] 500 mg PO QDAY #3 tablet 01/24/21 Unknown Rx Furosemide [Lasix TAB] 40 mg PO QDAY #30 tablet 01/24/21 Unknown Rx Potassium Chloride 10 meq PO DAILY #30 tablet.er 01/24/21 Unknown Rx Active Meds: Active Medications Acetaminophen (Acetaminophen 650 Mg Rect Supp) 650 mg DC Q6H PRN PRN Reason: Pain MILD(1-3)/Fever >100.5/MONTIEL Propofol (Diprivan 10 Mg/Ml) 1,000 mg in 100 mls @ 2.55 mls/hr IV TITR PAULINA; Protocol Last Titration: 11/18/21 03:13 Dose: 40 mcg/kg/min, 20.4 mls/hr Documented by: Sodium Chloride (Nacl 0.9% 1000 Ml) 1,000 mls @ 999 mls/hr IV BOLUS ONE Stop: 11/18/21 03:31 Last Admin: 11/18/21 03:00 Dose: 999 mls/hr Documented by: Midazolam HCl 100 mg/ Sodium (Chloride) 100 mls @ 1 mls/hr IV TITR PAULINA; Protocol Sodium Chloride (Nacl 0.9% 1000 Ml) 1,000 mls @ 125 mls/hr IV DIRECT PAULINA Ceftriaxone Sodium (Rocephin/Ns 2 Gm/100 Ml) 2 gm in 100 mls @ 200 mls/hr IV Q24H PAULINA; Protocol Azithromycin (Zithromax/Ns) 500 mg in 250 mls @ 250 mls/hr IV Q24H PAULINA; Protocol Magnesium Hydroxide (Magnesium Hydroxide (Mom) Oral Liqd Udc) 30 ml PO Q4H PRN PRN Reason: Constipation Midazolam HCl (Midazolam 2 Mg/2 Ml Inj) 2 mg IV Q10MIN PRN PRN Reason: Sedation Last Admin: 11/18/21 03:17 Dose: 2 mg Documented by: Morphine Sulfate (Morphine 2 Mg/1 Ml Inj) 2 mg IV Q4H PRN PRN Reason: Pain, Moderate (4-6) Morphine Sulfate (Morphine 4 Mg/1 Ml Inj) 4 mg IV Q4H PRN PRN Reason: Pain , Severe (7-10) Ondansetron HCl (Ondansetron 4 Mg/2 Ml Inj) 4 mg IV Q8H PRN PRN Reason: Nausea And Vomiting Sodium Chloride (Sodium Chloride 0.9% 10 Ml Flush Syringe) 10 ml IV BID PAULINA Sodium Chloride (Sodium Chloride 0.9% 10 Ml Flush Syringe) 10 ml IV PRN PRN PRN Reason: LINE FLUSH Review of Systems ROS unobtainable: due to endotracheal tube Exam - Constitutional Vitals: Temp Pulse Resp BP Pulse Ox 99 H 15 213/80 97 11/18/21 02:30 11/18/21 02:30 11/18/21 02:30 11/18/21 02:30 General appearance: Present: other (Intubated AND Sedated) - EENT Eyes: Present: PERRL, EOM intact. Absent: scleral icterus ENT: hearing intact, clear oral mucosa, dentition normal - Neck Neck: Present: supple, normal ROM - Respiratory Respiratory effort: normal Respiratory: bilateral: diminished - Cardiovascular Rhythm: regular Heart Sounds: Present: S1 & S2. Absent: gallop, systolic murmur, diastolic murmur, rub, click - Extremities Extremities: no ischemia, pulses intact, pulses symmetrical, No edema, normal temperature, normal color, Full ROM Peripheral Pulses: within normal limits - Abdominal General gastrointestinal: Present: soft, non-tender, non-distended, normal bowel sounds. Absent: mass - Integumentary Integumentary: Present: clear, warm, dry, normal turgor. Absent: rash - Musculoskeletal Musculoskeletal: strength equal bilaterally - Psychiatric Psychiatric: cooperative - Neurologic Neurologic: other (Intubated and Sedated) HEART Score - HEART Score Troponin: Troponin T < 0.010 ng/mL (0.00-0.029) 11/18/21 00:19 Results - Labs CBC & Chem 7: 11/18/21 00:19 11/18/21 00:19 Labs: Abnormal lab results 11/18/21 11/18/21 11/18/21 Range/Units 00:01 00:19 00:19 WBC 15.6 H (4.5-11.0) K/mm3 RBC 5.59 H (3.65-5.03) M/mm3 Hgb 14.8 H (10.1-14.3) gm/dl Hct 49.8 H (30.3-42.9) % MCH 27 L (28-32) pg RDW 16.9 H (13.2-15.2) % ABG HCO3 (20.0-26.0) mmol/L ABG Base Excess (-2.0-3.0) mmol/L Oxyhemoglobin (95.0-99.0) % Glucose 148 H (65-100) mg/dL POC Glucose 151 H (70-105) mg/dL Magnesium (1.7-2.3) mg/dL Urine WBC (Auto) (0.0-6.0) /HPF Salicylates (2.8-20.0) mg/dL Acetaminophen (10.0-30.0) ug/mL 11/18/21 11/18/21 11/18/21 Range/Units 00:19 00:19 00:19 WBC (4.5-11.0) K/mm3 RBC (3.65-5.03) M/mm3 Hgb (10.1-14.3) gm/dl Hct (30.3-42.9) % MCH (28-32) pg RDW (13.2-15.2) % ABG HCO3 (20.0-26.0) mmol/L ABG Base Excess (-2.0-3.0) mmol/L Oxyhemoglobin (95.0-99.0) % Glucose (65-100) mg/dL POC Glucose (70-105) mg/dL Magnesium 2.50 H (1.7-2.3) mg/dL Urine WBC (Auto) (0.0-6.0) /HPF Salicylates < 0.3 L (2.8-20.0) mg/dL Acetaminophen 5.0 L (10.0-30.0) ug/mL 11/18/21 11/18/21 Range/Units 01:03 02:00 WBC (4.5-11.0) K/mm3 RBC (3.65-5.03) M/mm3 Hgb (10.1-14.3) gm/dl Hct (30.3-42.9) % MCH (28-32) pg RDW (13.2-15.2) % ABG HCO3 35.8 H (20.0-26.0) mmol/L ABG Base Excess 7.8 H (-2.0-3.0) mmol/L Oxyhemoglobin 91.9 L (95.0-99.0) % Glucose (65-100) mg/dL POC Glucose (70-105) mg/dL Magnesium (1.7-2.3) mg/dL Urine WBC (Auto) 16.0 H (0.0-6.0) /HPF Salicylates (2.8-20.0) mg/dL Acetaminophen (10.0-30.0) ug/mL Assessment and Plan - Patient Problems (1) Acute respiratory failure Current Visit: No Status: Acute Plan to address problem: Possibly secondary to underlying pneumonia versus pulmonary edema Patient placed on empiric IV antibiotics and admitted into the intensive care unit. Consult placed to the spring coiler hand for further evaluation. (2) Urinary tract infection Current Visit: Yes Status: Acute Plan to address problem: Patient placed on empiric IV antibiotics. Will await culture results. (3) COPD with acute exacerbation Current Visit: No Status: Acute Plan to address problem: We will place patient on nebulizing treatments and IV steroid. (4) DVT prophylaxis Current Visit: No Status: Acute Plan to address problem: Patient placed on subcutaneous heparin. (5) Full code status Current Visit: Yes Status: Acute Plan to address problem: Patient is full code.
--- NOTE | 2021-11-18 04:30 | XRay Report ---
CHEST 1 VIEW 11/18/2021 3:18 AM INDICATION / CLINICAL INFORMATION: ET tube confirm. COMPARISON: One view of the chest from earlier today. FINDINGS: SUPPORT DEVICES: An ET tube has been placed with the tip located 3.6 cm above the layne. An esophago gastric tube has been placed that terminates over the proximal stomach. HEART / MEDIASTINUM: Stable. LUNGS / PLEURA: Increased lung volumes with bilateral airspace and interstitial opacities again noted , most notable along the perihilar regions. No significant pleural effusion. No pneumothorax. ADDITIONAL FINDINGS: No significant additional findings. IMPRESSION: 1. Satisfactory positioning of ET and esophagogastric tubes. 2. Improved lung volumes with nonspecific bilateral pulmonary opacities, possibly representing edema/ atelectasis or pneumonia. Signer Name: Bigg Bustillo MD Signed: 11/18/2021 4:25 AM Workstation Name: [id number]
[2021-11-18 04:36] LABS: Total Cells Counted 100
[2021-11-18 04:37] LABS: Anisocytosis 1+; Macrocytosis Few; Platelet Estimate Consistent w Auto
--- NOTE | 2021-11-18 04:46 | Cat Scan Report ---
CT HEAD WITHOUT CONTRAST INDICATION / CLINICAL INFORMATION: Altered Mental Status / Unresponsive. TECHNIQUE: All CT scans at this location are performed using CT dose reduction for ALARA by means of automated exposure control. COMPARISON: None available. FINDINGS: BRAIN PARENCHYMA: No acute intracranial hemorrhage. No evidence of recent infarct. No mass effect or midline shift. VENTRICULAR SYSTEM/EXTRA-AXIAL SPACES: There is age-appropriate atrophy with secondary enlargement of the ventricles. No extra-axial fluid collection. ORBITS: Normal as visualized. SKELETAL SYSTEM/SOFT TISSUES: Normal bones and soft tissues. PARANASAL SINUSES/MASTOID AIR CELLS: Extensive opacification of the nasal cavity is noted with mild m ucosal thickening along the ethmoid air cells. No other significant abnormality. ADDITIONAL FINDINGS: None. IMPRESSION: 1. No acute intracranial abnormality. 2. Additional findings as above. Signer Name: Bigg Bustillo MD Signed: 11/18/2021 4:42 AM Workstation Name: [id number]
--- NOTE | 2021-11-18 04:56 | Cat Scan Report ---
CT CHEST, ABDOMEN, AND PELVIS WITHOUT CONTRAST INDICATION: Unresponsive. Previous abnormal chest radiograph. TECHNIQUE: Axial CT images were obtained through the chest, abdomen, and pelvis without contrast. All CT scans a t this location are performed using CT dose reduction for ALARA by means of automated exposure contro l. COMPARISON: One view of the chest from earlier today. FINDINGS: HEART: No significant abnormality. THORACIC VASCULATURE: No acute findings. Normal caliber of the aorta with diffuse atherosclerosis see n throughout the aorta, the coronary arteries and great vessels. The pulmonary trunk and the right an d left main pulmonary arteries are dilated. LYMPH NODES: Shotty mediastinal nodes are present. No significant adenopathy is seen elsewhere. TRACHEA AND BRONCHI: Satisfactory positioning of the ET tube. No significant abnormality. LUNGS: Intralobular septal thickening is noted with bibasilar atelectasis. Dense consolidation is see n along the left lower lobe with air bronchograms. No suspicious nodule or mass. No significant pleur al effusion. No pneumothorax. LIVER: No significant abnormality. GALLBLADDER/BILE DUCTS: Prior cholecystectomy. No biliary ductal dilatation. PANCREAS: No significant abnormality. SPLEEN: No significant abnormality. ADRENALS: A fat density left adrenal nodule measuring up to 2.9 cm is compatible with an adenoma. No significant abnormality of the right adrenal gland. KIDNEYS/URETERS: There is mild right hydroureteronephrosis of uncertain etiology. No renal/ureteral s tones or other significant abnormalities. STOMACH/SMALL BOWEL: Satisfactory positioning of the NG tube. No significant abnormality. COLON: There is noninflamed generalized diverticulosis. No other significant abnormalities. APPENDIX: Not seen. PERITONEUM: No free fluid. No free air. No fluid collection. LYMPH NODES: No significant adenopathy. ABDOMINOPELVIC VASCULATURE: The aorta is normal in caliber with moderate atherosclerosis. URINARY BLADDER: Drained by a Bhandari catheter. REPRODUCTIVE ORGANS: Prior hysterectomy. No significant adnexal abnormality. ADDITIONAL FINDINGS: There is mild generalized enlargement of the thyroid gland without visualization of a suspicious nodule. BONES: No significant abnormality IMPRESSION: 1. Evidence of pulmonary hypertension with dense consolidation along the left lower lobe that is conc erning for pneumonia. 2. Mild interstitial pulmonary edema. 3. No acute findings in the abdomen or pelvis. 4. Additional findings as above. Signer Name: Bigg Bustillo MD Signed: 11/18/2021 4:52 AM Workstation Name: [id number]
[2021-11-18] MEDS: cefTRIAXone/NS 2 GM/100 ML 2 GM/100 ML BAG IV SCH (05:02)
[2021-11-18] MEDS: AZITHROMYCIN/NS 500 MG/250 ML 500 MG/250 ML BAG IV SCH (05:49)
[2021-11-18 06:02] LABS: C-Reactive Protein 0.7 mg/dL (0.00-1.30)
[2021-11-18] MEDS ORDERED: DEXTROSE 50% IN WATER (25GM) 50 ML SYRINGE IV PRN (10:40)
[2021-11-18] MEDS ORDERED: FAMOTIDINE 20 MG/2 ML INJ IV SCH (11:00)
--- NOTE | 2021-11-18 11:31 | Consultation ---
History of Present Illness Consult date: 11/18/21 Requesting physician: KIKO BRICE Reason for consult: pneumonia, other (Hypertensive Emergency; Acute Hypoxemic Respiratory Failure) [facility] (Full dictation # [id number]) Please see dictated notes for full details Past History Past Medical History: acute [place], arthritis, COPD, GERD, hypertension, other (back pain-CHRONIC. SINUS / ALLERGIES. HIGH CHOLESTEROL. NEUROPATHY. Emphysema) Past Surgical History: cholecystectomy Social history: smoking (Former Smoker) Family history: no significant family history Medications and Allergies Allergies Allergy/AdvReac Type Severity Reaction Status Date / Time Steroids Allergy Vomiting Uncoded 11/18/21 00:14 Home Medications Medication Instructions Recorded Confirmed Last Taken Type Gabapentin [Neurontin] 800 mg PO BID 12/31/20 01/21/21 Unknown History Tizanidine HCl 2 mg PO QHS 12/31/20 01/21/21 Unknown History carvediloL [Coreg] 12.5 mg PO BID tablet 01/01/21 01/21/21 Unknown Rx HYDROcodone/APAP 10-325 [[place] 1 each PO Q8HR PRN 01/21/21 01/21/21 Unknown History 10-325 mg TAB] Isosorbide Mononitrate [Isosorbide 120 mg PO DAILY 01/21/21 01/21/21 Unknown History Mononitrate ER] Losartan [Cozaar] 100 mg PO QDAY 01/21/21 01/21/21 Unknown History Pantoprazole [Protonix TAB] 40 mg PO QDAY 01/21/21 01/21/21 Unknown History amLODIPine 10 mg PO QDAY 01/21/21 01/21/21 Unknown History Albuterol Mdi (or & Nicu Only) 2 puff IH QID PRN #8.5 gram 01/24/21 Unknown Rx [ProAir HFA Inhaler] Aspirin EC [Halfprin EC] 81 mg PO QDAY #30 tablet 01/24/21 Unknown Rx Azithromycin [Zithromax TAB] 500 mg PO QDAY #3 tablet 01/24/21 Unknown Rx Furosemide [Lasix TAB] 40 mg PO QDAY #30 tablet 01/24/21 Unknown Rx Potassium Chloride 10 meq PO DAILY #30 tablet.er 01/24/21 Unknown Rx Active Meds: Active Medications Acetaminophen (Acetaminophen 650 Mg Rect Supp) 650 mg AL Q6H PRN PRN Reason: Pain MILD(1-3)/Fever >100.5/MONTIEL Dextrose (Dextrose 50% In Water (25gm) 50 Ml Syringe) 50 ml IV Q30MIN PRN; Protocol PRN Reason: Hypoglycemia Famotidine (Famotidine 20 Mg/2 Ml Inj) 20 mg IV QDAY PAULINA Last Admin: 11/18/21 11:22 Dose: 20 mg Documented by: Hydralazine HCl (Hydralazine 20 Mg/1 Ml Inj) 10 mg IV Q4HR PRN PRN Reason: Hypertension Propofol (Diprivan 10 Mg/Ml) 1,000 mg in 100 mls @ 2.55 mls/hr IV TITR PAULINA; Protocol Last Admin: 11/18/21 05:51 Dose: 50 mcg/kg/min, 25.5 mls/hr Documented by: Midazolam HCl 100 mg/ Sodium (Chloride) 100 mls @ 1 mls/hr IV TITR PAULINA; Protocol Last Titration: 11/18/21 03:57 Dose: 2 mg/hr, 2 mls/hr Documented by: Sodium Chloride (Nacl 0.9% 1000 Ml) 1,000 mls @ 125 mls/hr IV DIRECT PAULINA Ceftriaxone Sodium (Rocephin/Ns 2 Gm/100 Ml) 2 gm in 100 mls @ 200 mls/hr IV Q24H PAULINA; Protocol Last Admin: 11/18/21 05:02 Dose: 200 mls/hr Documented by: Azithromycin (Zithromax/Ns) 500 mg in 250 mls @ 250 mls/hr IV Q24H PAULINA; Protocol Last Admin: 11/18/21 05:49 Dose: 250 mls/hr Documented by: Insulin Human Lispro (Insulin Lispro 100 Unit/Ml) 0 unit SUB-Q Q6HR PAULINA; Protocol Magnesium Hydroxide (Magnesium Hydroxide (Mom) Oral Liqd Udc) 30 ml PO Q4H PRN PRN Reason: Constipation Midazolam HCl (Midazolam 2 Mg/2 Ml Inj) 2 mg IV Q10MIN PRN PRN Reason: Sedation Last Admin: 11/18/21 03:17 Dose: 2 mg Documented by: Morphine Sulfate (Morphine 2 Mg/1 Ml Inj) 2 mg IV Q4H PRN PRN Reason: Pain, Moderate (4-6) Last Admin: 11/18/21 08:07 Dose: 2 mg Documented by: Morphine Sulfate (Morphine 4 Mg/1 Ml Inj) 4 mg IV Q4H PRN PRN Reason: Pain , Severe (7-10) Ondansetron HCl (Ondansetron 4 Mg/2 Ml Inj) 4 mg IV Q8H PRN PRN Reason: Nausea And Vomiting Physical Examination Vital signs: Vital Signs Resp Pulse Ox 18 98 11/18/21 01:03 11/18/21 01:03 Results - Laboratory Findings CBC and BMP: 11/18/21 00:19 11/18/21 00:19 ABG ABG pH 7.359 pH Units (7.350-7.450) 11/18/21 02:00 ABG pCO2 65.0 mm Hg 11/18/21 02:00 ABG pO2 89.5 mm Hg (80.0-90.0) 11/18/21 02:00 ABG O2 Saturation 96.8 % (95.0-99.0) 11/18/21 02:00 PT/INR, D-dimer PT 12.9 Sec. (12.2-14.9) 11/18/21 00:19 INR 0.88 (0.87-1.13) 11/18/21 00:19 D-Dimer 464.80 ng/mlDDU (0-234) H 11/18/21 05:15 Abnormal lab findings: Abnormal Labs 11/18/21 11/18/21 11/18/21 00:01 00:19 00:19 WBC 15.6 H RBC 5.59 H Hgb 14.8 H Hct 49.8 H MCH 27 L RDW 16.9 H Lymphocytes % (Manual) 4.0 L Seg Neutrophils # Man 14.7 H Lymphocytes # (Manual) 0.6 L D-Dimer ABG HCO3 ABG Base Excess Oxyhemoglobin Glucose 148 H POC Glucose 151 H Magnesium Lactate Dehydrogenase Urine WBC (Auto) Salicylates Acetaminophen 11/18/21 11/18/21 11/18/21 00:19 00:19 00:19 WBC RBC Hgb Hct MCH RDW Lymphocytes % (Manual) Seg Neutrophils # Man Lymphocytes # (Manual) D-Dimer ABG HCO3 ABG Base Excess Oxyhemoglobin Glucose POC Glucose Magnesium 2.50 H Lactate Dehydrogenase Urine WBC (Auto) Salicylates < 0.3 L Acetaminophen 5.0 L 12/11/18/21 11/18/21 01:03 02:00 05:15 WBC RBC Hgb Hct MCH RDW Lymphocytes % (Manual) Seg Neutrophils # Man Lymphocytes # (Manual) D-Dimer 464.80 H ABG HCO3 35.8 H ABG Base Excess 7.8 H Oxyhemoglobin 91.9 L Glucose POC Glucose Magnesium Lactate Dehydrogenase Urine WBC (Auto) 16.0 H Salicylates Acetaminophen 11/18/21 05:15 WBC RBC Hgb Hct MCH RDW Lymphocytes % (Manual) Seg Neutrophils # Man Lymphocytes # (Manual) D-Dimer ABG HCO3 ABG Base Excess Oxyhemoglobin Glucose POC Glucose Magnesium Lactate Dehydrogenase 275 H Urine WBC (Auto) Salicylates Acetaminophen
[2021-11-18] MEDS ORDERED: niCARdipine 50 MG in SODIUM CHLORIDE 0.9% 250ML 230 ML IV SCH (12:00)
--- NOTE | 2021-11-18 12:38 | XRay Report ---
ABDOMEN 1 VIEW 11/18/2021 11:10 AM INDICATION / CLINICAL INFORMATION: OGT placement. COMPARISON: CT scan dated 11/18/2021 FINDINGS: TUBES / LINES: Tip of the nasogastric tube is in the body of the stomach. BOWEL GAS PATTERN: No significant abnormality. FREE AIR / EXTRALUMINAL GAS: None. ADDITIONAL FINDINGS: There are airspace opacities in the lung bases IMPRESSION: 1. Esophagogastric tube in expected position. Signer Name: Vito Hardy MD Signed: 11/18/2021 12:33 PM Workstation Name: [id number]
--- NOTE | 2021-11-18 13:09 | Event Note ---
Date: 11/18/21 This is a 81-year-old AA female with past medical history of CAD, CHF, pulmonary hypertension, and COPD admitted for acute hypoxemic respiratory failure 2/2 of bilateral pneumonia requiring intubation and ventilatory support. Patient was seen and examined in the ED. Patient is intubated and sedated on propofol and versed gtt, RASS -3 to -4. Patient is in hypertensive emergency this am, SBP in the 240s, cardene gtt was initiated, maintain SBP less than 160. Leukocytosis noted, UA significant for UTI. Lactic, procal, and CRP are normal. Patient remains afebrile, continue empiric IV abx for now. Tracheal aspirate ordered, blood culture is pending. Continue to f/u on culture data.
[2021-11-18] MEDS ORDERED: MINERAL OIL/PETROLATUM, WHITE OPHTH OINT 3.5 GM OU PRN (15:26)
[2021-11-18] MEDS ORDERED: LIP THERAPY VASELINE TP PRN (15:26)
[2021-11-18 16:08] LABS: Basophils % (Auto) 0.2 % (0.0-1.8); Eosinophils % (Auto) 0.1 % (0.0-4.3); Lymphocytes # (Auto) 1.1 K/mm3 (1.2-5.4); Lymphocytes % (Auto) 7.9 % (13.4-35.0); Mean Corpuscular HGB Conc 30 % (30-34); Mean Corpuscular Volume 88 fl (79-97); Monocytes # (Auto) 1.4 K/mm3 (0.0-0.8); Monocytes % (Auto) 10.1 % (0.0-7.3); Platelet Count 286 K/mm3 (140-440); Red Cell Distribution Width 17.3 % (13.2-15.2)
[2021-11-18 16:09] LABS: Hemoglobin 14.9 gm/dl (10.1-14.3)
[2021-11-18 16:10] LABS: Hematocrit 49.1 % (30.3-42.9)
[2021-11-18] MEDS ORDERED: SODIUM BICARBONATE 325 MG TAB FEEDTUBE PRN (16:10)
[2021-11-18] MEDS ORDERED: SIMPLE SYRUP 15 ML FEEDTUBE PRN ×2 (16:10)
[2021-11-18] MEDS ORDERED: LIPASE 10,500/PROTEASE 25,000/AMYLASE 43,750 (UNITS) DR CAP FEEDTUBE PRN (16:10)
--- NOTE | 2021-11-18 16:33 | Vascular Lab Report ---
DUPLEX DOPPLER LOWER EXTREMITY VEINS, BILATERAL INDICATION / CLINICAL INFORMATION: swelling. TECHNIQUE: Duplex doppler imaging was performed through the veins of both lower extremities using venous marlen amy and other maneuvers. COMPARISON: None available. FINDINGS: RIGHT COMMON FEMORAL VEIN: Negative. RIGHT FEMORAL VEIN: Negative. RIGHT POPLITEAL VEIN: Negative. RIGHT CALF VEINS: Negative. LEFT COMMON FEMORAL VEIN: Negative. LEFT FEMORAL VEIN: Negative. LEFT POPLITEAL VEIN: Negative. LEFT CALF VEINS: Negative. ADDITIONAL FINDINGS: None. IMPRESSION: 1. No sonographic evidence for DVT in either lower extremity. Signer Name: Jamin Galarza MD Signed: 11/18/2021 4:29 PM Workstation Name: [id number]
[2021-11-18] MEDS: fentaNYL DRIP Premix 2,000 MCG/100 ML BAG IV SCH (17:00)
[2021-11-18] MEDS: FUROSEMIDE 20 MG/2 ML INJ IV SCH ×2 (17:11→22:13)
[2021-11-18] MEDS: INSULIN LISPRO 100 UNIT/ML SUB-Q SCH ×2 (17:18→19:29)
[2021-11-18] MEDS: BUDESONIDE 0.5 MG/2 ML NEBU IH SCH (19:31)
[2021-11-18] MEDS: ARFORMOTEROL 15 MCG/2 ML NEBU IH SCH (19:31)
[2021-11-18] MEDS: SENNOSIDES/DOCUSATE SODIUM 8.6/50 MG TAB FEEDTUBE SCH (22:13)
[2021-11-19] MEDS: INSULIN LISPRO 100 UNIT/ML SUB-Q SCH ×4 (01:43→17:05)
[2021-11-19] MEDS: cefTRIAXone/NS 2 GM/100 ML 2 GM/100 ML BAG IV SCH (04:01)
[2021-11-19] MEDS: fentaNYL DRIP Premix 2,000 MCG/100 ML BAG IV SCH ×3 (04:13→19:44)
--- NOTE | 2021-11-19 04:22 | XRay Report ---
CHEST 1 VIEW 11/19/2021 3:12 AM INDICATION / CLINICAL INFORMATION: follow up respiratory failure. COMPARISON: One view of the chest from 11/18/2021. FINDINGS: SUPPORT DEVICES: Unchanged. HEART / MEDIASTINUM: Stable size of the cardiac silhouette with similar dilatation of the pulmonary v asculature. LUNGS / PLEURA: Lung volumes are reduced with similar probable bilateral edema. No significant pleura l effusion. No pneumothorax. ADDITIONAL FINDINGS: No significant additional findings. IMPRESSION: Decreased lung volumes compared to the prior study without other significant interval changes. Signer Name: Bigg Bustillo MD Signed: 11/19/2021 4:17 AM Workstation Name: [id number]
[2021-11-19] MEDS: AZITHROMYCIN/NS 500 MG/250 ML 500 MG/250 ML BAG IV SCH (05:16)
[2021-11-19 08:20] LABS: Basophils # (Auto) 0.1 K/mm3 (0.0-0.1); Basophils % (Auto) 0.5 % (0.0-1.8); Eosinophils # (Auto) 0.1 K/mm3 (0.0-0.4); Eosinophils % (Auto) 0.7 % (0.0-4.3); Hematocrit 45.5 % (30.3-42.9); Hemoglobin 13.5 gm/dl (10.1-14.3); Lymphocytes # (Auto) 1.6 K/mm3 (1.2-5.4); Lymphocytes % (Auto) 12.3 % (13.4-35.0); Mean Corpuscular HGB Conc 30 % (30-34); Mean Corpuscular Volume 86 fl (79-97); Monocytes # (Auto) 1.2 K/mm3 (0.0-0.8); Monocytes % (Auto) 9.6 % (0.0-7.3); Platelet Count 285 K/mm3 (140-440); Red Blood Count 5.29 M/mm3 (3.65-5.03); Red Cell Distribution Width 17.4 % (13.2-15.2)
[2021-11-19] MEDS: BUDESONIDE 0.5 MG/2 ML NEBU IH SCH ×2 (08:26→20:15)
[2021-11-19] MEDS: ARFORMOTEROL 15 MCG/2 ML NEBU IH SCH ×2 (08:26→20:14)
[2021-11-19 08:32] LABS: Blood Urea Nitrogen 16 mg/dL (7-17); Calcium 8.1 mg/dL (8.4-10.2); Hemolysis Index 10
[2021-11-19 08:36] LABS: BUN/Creatinine Ratio 23
[2021-11-19] MEDS ORDERED: POTASSIUM CHLORIDE 20 MEQ PACKET FEEDTUBE SCH ×2 (09:00→14:00)
[2021-11-19] MEDS: FUROSEMIDE 20 MG/2 ML INJ IV SCH ×2 (09:14→21:44)
[2021-11-19] MEDS: FAMOTIDINE 20 MG/2 ML INJ IV SCH ×2 (09:14→21:44)
[2021-11-19] MEDS: SENNOSIDES/DOCUSATE SODIUM 8.6/50 MG TAB FEEDTUBE SCH ×2 (09:14→21:44)
[2021-11-19 09:26] LABS: ABG Base Excess 6.9 mmol/L (-2.0-3.0); ABG HCO3 30.1 mmol/L (20.0-26.0); ABG Methemoglobin 0.4 % (0.0-1.5); ABG Oxygen Saturation 96.9 % (95.0-99.0); ABG PH 7.518 pH Units (7.350-7.450); ABG PO2 77.6 mm Hg (80.0-90.0)
--- NOTE | 2021-11-19 12:47 | Progress Note ---
Assessment and Plan Acute exacerbation of chronic obstructive lung disease Acute hypoxemic respiratory failure Acute congestive heart failure exacerbation (? Flash Pulmonary edema) Community-acquired pneumonia Leukocytosis History of coronary artery disease Gastroesophageal reflux disease Arthritis Hyperlipidemia Obesity Elevated D-dimers Acute toxic metabolic encephalopathy Urinary tract infection Likely pulmonary hypertension Hypertensive emergency - get 2D ECHO and address - continue diuresis and re-evaluate in am - Daily SAT and SBT assessment as tolerated - continue to wean supplemental oxygen for target O2 sat's > 90% acutely - VAP bundle addressed - continue lung protective strategies - continue bronchodilators with pulmonary hygiene per RT - wean per pulmonary driven protocols otherwise - avoid nephrotoxins, renally dose all medications - continue accuchecks with glycemic control per SSI (While critically ill target blood glucose of 140-180 mg/dL; avoid hypoglycemia) - sedation prn for target RASS 0 to -1 - continue to avoid benzodiazepine's, reduce the possibility of delirium - completed AB's per ID rec's - prn analgesia per CPOT score - Maintenance of sleep-wake cycle, avoid delirium - continue enteral nutritional support at goal rate as tolerated - G.I. & VTE prophylaxis - PT/OT/ROM exercises - continue mobility protocols for pressure ulcer prophylaxis - Monitor hemodynamics closely - continue other care per attending / other consultants - discharge planning ongoing concurrently COVID SPECIFIC INTERVENTIONS: - COVID-19 test negative .... Re-evaluate in am & prn CONDITION: CRITICAL PROGNOSIS: GUARDED CODE STATUS: FULL CODE The high probability of a clinically significant, sudden or life-threatening deterioration of the [respiratory, cardiovascular & neurologic] system(s) required my full and direct attention, intervention and personal management. The aggregate critical care time was [33] minutes without overlap. Time includes spent on; [x] Data Review and interpretation [x] Patient assessment and monitoring of vital signs [x] Documentation [x] Medication orders and management Subjective Date of service: 11/19/21 Principal diagnosis: AE-COPD; AHRF; CHF (? new onset); CAP; CAD; Obesity; HTNsive Emergency Interval history: Patient is seen today for: AE-COPD; Acute hypoxemic respiratory failure; CHF (? new onset); CAP; CAD; Obesity; HTNsive Emergency Seen and examined at bedside; 24hour events reviewed; nursing and respiratory care staff consulted; no adverse overnight events reported to me; remains on MVS; agitated during SAT's; no emesis or overt aspiration; no high grade fevers Objective Vital Signs - 12hr 11/19/21 11/19/21 11/19/21 00:50 01:00 01:10 Temperature Pulse Rate 61 62 63 Pulse Rate [ Anterior Left Throughout] Pulse Rate [ Bilateral Throughout] Pulse Rate [ From Monitor] Respiratory 24 24 Rate Respiratory Rate [Anterior Left Throughout ] Respiratory Rate [Bilateral Throughout] Blood Pressure 127/64 108/58 108/57 O2 Sat by Pulse 94 94 95 Oximetry 11/19/21 11/19/21 11/19/21 01:20 01:30 01:40 Temperature Pulse Rate 64 60 60 Pulse Rate [ Anterior Left Throughout] Pulse Rate [ Bilateral Throughout] Pulse Rate [ From Monitor] Respiratory 24 24 Rate Respiratory Rate [Anterior Left Throughout ] Respiratory Rate [Bilateral Throughout] Blood Pressure 115/60 115/60 141/29 O2 Sat by Pulse 95 95 95 Oximetry 11/19/21 11/19/21 11/19/21 01:50 02:00 02:10 Temperature Pulse Rate 58 L 57 L 56 L Pulse Rate [ Anterior Left Throughout] Pulse Rate [ Bilateral Throughout] Pulse Rate [ From Monitor] Respiratory 24 24 Rate Respiratory Rate [Anterior Left Throughout ] Respiratory Rate [Bilateral Throughout] Blood Pressure 112/55 112/55 105/59 O2 Sat by Pulse 95 95 95 Oximetry 11/19/21 11/19/21 11/19/21 02:20 02:30 02:40 Temperature Pulse Rate 57 L 57 L 59 L Pulse Rate [ Anterior Left Throughout] Pulse Rate [ Bilateral Throughout] Pulse Rate [ From Monitor] Respiratory 24 Rate Respiratory Rate [Anterior Left Throughout ] Respiratory Rate [Bilateral Throughout] Blood Pressure 109/59 109/59 107/51 O2 Sat by Pulse 95 95 95 Oximetry 11/19/21 11/19/21 11/19/21 02:50 03:00 03:10 Temperature Pulse Rate 58 L 56 L 55 L Pulse Rate [ Anterior Left Throughout] Pulse Rate [ Bilateral Throughout] Pulse Rate [ From Monitor] Respiratory 24 24 Rate Respiratory Rate [Anterior Left Throughout ] Respiratory Rate [Bilateral Throughout] Blood Pressure 114/61 114/61 108/58 O2 Sat by Pulse 96 95 96 Oximetry 11/19/21 11/19/21 11/19/21 03:20 03:30 03:40 Temperature Pulse Rate 55 L 54 L 53 L Pulse Rate [ Anterior Left Throughout] Pulse Rate [ Bilateral Throughout] Pulse Rate [ From Monitor] Respiratory 24 24 24 Rate Respiratory Rate [Anterior Left Throughout ] Respiratory Rate [Bilateral Throughout] Blood Pressure 115/65 115/65 115/65 O2 Sat by Pulse 95 95 95 Oximetry 11/19/21 11/19/21 11/19/21 03:50 04:00 04:10 Temperature Pulse Rate 53 L 55 L 53 L Pulse Rate [ Anterior Left Throughout] Pulse Rate [ Bilateral Throughout] Pulse Rate [ 55 L From Monitor] Respiratory 24 Rate Respiratory Rate [Anterior Left Throughout ] Respiratory Rate [Bilateral Throughout] Blood Pressure 115/65 115/65 129/66 O2 Sat by Pulse 95 94 95 Oximetry 11/19/21 11/19/21 11/19/21 04:20 04:30 04:40 Temperature Pulse Rate 54 L 55 L 53 L Pulse Rate [ Anterior Left Throughout] Pulse Rate [ Bilateral Throughout] Pulse Rate [ From Monitor] Respiratory 24 Rate Respiratory Rate [Anterior Left Throughout ] Respiratory Rate [Bilateral Throughout] Blood Pressure 129/66 145/79 145/79 O2 Sat by Pulse 95 95 96 Oximetry 11/19/21 11/19/21 11/19/21 04:50 05:00 05:04 Temperature Pulse Rate 54 L 53 L 53 L Pulse Rate [ Anterior Left Throughout] Pulse Rate [ Bilateral Throughout] Pulse Rate [ From Monitor] Respiratory 24 Rate Respiratory Rate [Anterior Left Throughout ] Respiratory Rate [Bilateral Throughout] Blood Pressure 131/74 133/73 133/73 O2 Sat by Pulse 95 96 95 Oximetry 11/19/21 11/19/21 11/19/21 05:10 05:20 05:30 Temperature Pulse Rate 54 L 54 L 54 L Pulse Rate [ Anterior Left Throughout] Pulse Rate [ Bilateral Throughout] Pulse Rate [ From Monitor] Respiratory 24 Rate Respiratory Rate [Anterior Left Throughout ] Respiratory Rate [Bilateral Throughout] Blood Pressure 133/73 137/83 137/83 O2 Sat by Pulse 96 96 96 Oximetry 11/19/21 11/19/21 11/19/21 05:40 05:50 06:00 Temperature Pulse Rate 56 L 56 L 56 L Pulse Rate [ Anterior Left Throughout] Pulse Rate [ Bilateral Throughout] Pulse Rate [ From Monitor] Respiratory 24 Rate Respiratory Rate [Anterior Left Throughout ] Respiratory Rate [Bilateral Throughout] Blood Pressure 137/75 143/83 143/83 O2 Sat by Pulse 96 96 96 Oximetry 11/19/21 11/19/21 11/19/21 06:10 06:20 06:30 Temperature Pulse Rate 57 L 55 L 56 L Pulse Rate [ Anterior Left Throughout] Pulse Rate [ Bilateral Throughout] Pulse Rate [ From Monitor] Respiratory 24 24 24 Rate Respiratory Rate [Anterior Left Throughout ] Respiratory Rate [Bilateral Throughout] Blood Pressure 149/79 152/82 152/82 O2 Sat by Pulse 95 95 96 Oximetry 11/19/21 11/19/21 11/19/21 06:40 06:50 07:00 Temperature Pulse Rate 56 L 56 L 55 L Pulse Rate [ Anterior Left Throughout] Pulse Rate [ Bilateral Throughout] Pulse Rate [ From Monitor] Respiratory 24 24 24 Rate Respiratory Rate [Anterior Left Throughout ] Respiratory Rate [Bilateral Throughout] Blood Pressure 137/74 132/75 133/75 O2 Sat by Pulse 96 96 95 Oximetry 11/19/21 11/19/21 11/19/21 07:10 07:18 07:20 Temperature 98.1 F Pulse Rate 58 L 55 L Pulse Rate [ Anterior Left Throughout] Pulse Rate [ Bilateral Throughout] Pulse Rate [ From Monitor] Respiratory 24 24 Rate Respiratory Rate [Anterior Left Throughout ] Respiratory Rate [Bilateral Throughout] Blood Pressure 133/75 132/71 O2 Sat by Pulse 96 96 Oximetry 11/19/21 11/19/21 11/19/21 07:30 07:40 07:43 Temperature Pulse Rate 56 L 55 L 55 L Pulse Rate [ Anterior Left Throughout] Pulse Rate [ Bilateral Throughout] Pulse Rate [ From Monitor] Respiratory 24 24 Rate Respiratory Rate [Anterior Left Throughout ] Respiratory Rate [Bilateral Throughout] Blood Pressure 130/72 130/72 O2 Sat by Pulse 95 96 Oximetry 11/19/21 11/19/21 11/19/21 07:50 08:00 08:10 Temperature Pulse Rate 56 L 55 L 55 L Pulse Rate [ Anterior Left Throughout] Pulse Rate [ Bilateral Throughout] Pulse Rate [ 55 L From Monitor] Respiratory 24 25 H 24 Rate Respiratory Rate [Anterior Left Throughout ] Respiratory Rate [Bilateral Throughout] Blood Pressure 123/70 142/79 142/79 O2 Sat by Pulse 96 95 96 Oximetry 11/19/21 11/19/21 11/19/21 08:20 08:22 08:30 Temperature Pulse Rate 52 L 55 L 55 L Pulse Rate [ Anterior Left Throughout] Pulse Rate [ Bilateral Throughout] Pulse Rate [ From Monitor] Respiratory 24 24 Rate Respiratory Rate [Anterior Left Throughout ] Respiratory Rate [Bilateral Throughout] Blood Pressure 146/72 146/72 146/72 O2 Sat by Pulse 96 99 98 Oximetry 11/19/21 11/19/21 11/19/21 08:40 08:47 08:50 Temperature Pulse Rate 56 L 57 L Pulse Rate [ 56 L Anterior Left Throughout] Pulse Rate [ 55 L Bilateral Throughout] Pulse Rate [ From Monitor] Respiratory 24 24 Rate Respiratory 22 Rate [Anterior Left Throughout ] Respiratory 24 Rate [Bilateral Throughout] Blood Pressure 119/66 119/67 O2 Sat by Pulse 97 97 Oximetry 11/19/21 11/19/21 11/19/21 09:00 09:10 09:20 Temperature Pulse Rate 57 L 58 L 56 L Pulse Rate [ Anterior Left Throughout] Pulse Rate [ Bilateral Throughout] Pulse Rate [ From Monitor] Respiratory 24 24 24 Rate Respiratory Rate [Anterior Left Throughout ] Respiratory Rate [Bilateral Throughout] Blood Pressure 119/67 122/67 131/69 O2 Sat by Pulse 96 97 97 Oximetry 11/19/21 11/19/21 11/19/21 09:30 09:40 09:50 Temperature Pulse Rate 56 L 57 L 56 L Pulse Rate [ Anterior Left Throughout] Pulse Rate [ Bilateral Throughout] Pulse Rate [ From Monitor] Respiratory 24 24 24 Rate Respiratory Rate [Anterior Left Throughout ] Respiratory Rate [Bilateral Throughout] Blood Pressure 131/69 143/64 133/65 O2 Sat by Pulse 96 96 96 Oximetry 11/19/21 11/19/21 11/19/21 10:00 10:10 10:20 Temperature Pulse Rate 56 L 57 L 58 L Pulse Rate [ Anterior Left Throughout] Pulse Rate [ Bilateral Throughout] Pulse Rate [ From Monitor] Respiratory 24 24 24 Rate Respiratory Rate [Anterior Left Throughout ] Respiratory Rate [Bilateral Throughout] Blood Pressure 133/65 134/67 149/79 O2 Sat by Pulse 95 95 95 Oximetry 11/19/21 11/19/21 11/19/21 10:30 10:40 10:50 Temperature Pulse Rate 57 L 58 L 56 L Pulse Rate [ Anterior Left Throughout] Pulse Rate [ Bilateral Throughout] Pulse Rate [ From Monitor] Respiratory 24 24 24 Rate Respiratory Rate [Anterior Left Throughout ] Respiratory Rate [Bilateral Throughout] Blood Pressure 149/79 149/79 127/70 O2 Sat by Pulse 95 96 95 Oximetry 11/19/21 11/19/21 11/19/21 11:00 11:10 11:20 Temperature Pulse Rate 59 L 61 63 Pulse Rate [ Anterior Left Throughout] Pulse Rate [ Bilateral Throughout] Pulse Rate [ From Monitor] Respiratory 24 24 24 Rate Respiratory Rate [Anterior Left Throughout ] Respiratory Rate [Bilateral Throughout] Blood Pressure 127/70 144/75 164/66 O2 Sat by Pulse 95 96 96 Oximetry 11/19/21 11/19/21 11/19/21 11:30 11:40 11:50 Temperature Pulse Rate 62 62 60 Pulse Rate [ Anterior Left Throughout] Pulse Rate [ Bilateral Throughout] Pulse Rate [ From Monitor] Respiratory 24 24 24 Rate Respiratory Rate [Anterior Left Throughout ] Respiratory Rate [Bilateral Throughout] Blood Pressure 164/66 179/62 137/54 O2 Sat by Pulse 96 96 95 Oximetry 11/19/21 11/19/21 11/19/21 11:54 12:00 12:41 Temperature 97.9 F Pulse Rate 57 L 63 Pulse Rate [ Anterior Left Throughout] Pulse Rate [ Bilateral Throughout] Pulse Rate [ 58 L From Monitor] Respiratory 24 Rate Respiratory Rate [Anterior Left Throughout ] Respiratory Rate [Bilateral Throughout] Blood Pressure 137/54 111/63 O2 Sat by Pulse 95 95 Oximetry Constitutional: no acute distress, other (elderly obese female with mildly increased respiratory effort at rest on MVS) Eyes: non-icteric ENT: oropharynx moist, other (ETT 24 cm Krish) Neck: supple, no lymphadenopathy, no JVD, other (large circumference) Effort: mildly labored Ascultation: Bilateral: diminished breath sounds, rhonchi Percussion: Bilateral: not dull Cardiovascular: regular rate and rhythm Gastrointestinal: normoactive bowel sounds, soft, non-tender, non-distended (protuberant) Integumentary: normal Extremities: no cyanosis, no edema, pulses normal, no ischemia or petechiae Neurologic: non-focal exam (grossly), pupils equal and round, CN II-XII normal, other (sedated) Psychiatric: other (agitated during sedation vacations) CBC and BMP: 11/20/21 04:20 11/20/21 04:20 ABG, PT/INR, D-dimer: ABG ABG pH 7.518 pH Units (7.350-7.450) H 11/19/21 08:55 ABG pCO2 38.0 mm Hg 11/19/21 08:55 ABG pO2 77.6 mm Hg (80.0-90.0) L 11/19/21 08:55 ABG O2 Saturation 96.9 % (95.0-99.0) 11/19/21 08:55 PT/INR, D-dimer PT 12.9 Sec. (12.2-14.9) 11/18/21 00:19 INR 0.88 (0.87-1.13) 11/18/21 00:19 D-Dimer 464.80 ng/mlDDU (0-234) H 11/18/21 05:15 Abnormal lab findings: Abnormal Labs 11/18/21 11/18/21 11/18/21 00:01 00:19 00:19 WBC 15.6 H RBC 5.59 H Hgb 14.8 H Hct 49.8 H MCH 27 L RDW 16.9 H Lymph % (Auto) [place] % (Auto) Lymph # (Auto) [place] # (Auto) Seg Neutrophils % Lymphocytes % (Manual) 4.0 L Seg Neutrophils # Seg Neutrophils # Man 14.7 H Lymphocytes # (Manual) 0.6 L D-Dimer ABG pH ABG pO2 ABG HCO3 ABG Base Excess Oxyhemoglobin Potassium Glucose 148 H POC Glucose 151 H Calcium Magnesium Lactate Dehydrogenase Urine WBC (Auto) Salicylates Acetaminophen 11/18/21 11/18/21 11/18/21 00:19 00:19 00:19 WBC RBC Hgb Hct MCH RDW Lymph % (Auto) [place] % (Auto) Lymph # (Auto) [place] # (Auto) Seg Neutrophils % Lymphocytes % (Manual) Seg Neutrophils # Seg Neutrophils # Man Lymphocytes # (Manual) D-Dimer ABG pH ABG pO2 ABG HCO3 ABG Base Excess Oxyhemoglobin Potassium Glucose POC Glucose Calcium Magnesium 2.50 H Lactate Dehydrogenase Urine WBC (Auto) Salicylates < 0.3 L Acetaminophen 5.0 L 11/18/21 11/18/21 11/18/21 01:03 02:00 05:15 WBC RBC Hgb Hct MCH RDW Lymph % (Auto) [place] % (Auto) Lymph # (Auto) [place] # (Auto) Seg Neutrophils % Lymphocytes % (Manual) Seg Neutrophils # Seg Neutrophils # Man Lymphocytes # (Manual) D-Dimer 464.80 H ABG pH ABG pO2 ABG HCO3 35.8 H ABG Base Excess 7.8 H Oxyhemoglobin 91.9 L Potassium Glucose POC Glucose Calcium Magnesium Lactate Dehydrogenase Urine WBC (Auto) 16.0 H Salicylates Acetaminophen 11/18/21 11/18/21 11/18/21 05:15 15:47 15:47 WBC 13.5 H RBC 5.60 H Hgb 14.9 H Hct 49.1 H MCH 27 L RDW 17.3 H Lymph % (Auto) 7.9 L [place] % (Auto) 10.1 H Lymph # (Auto) 1.1 L [place] # (Auto) 1.4 H Seg Neutrophils % 81.7 H Lymphocytes % (Manual) Seg Neutrophils # 11.0 H Seg Neutrophils # Man Lymphocytes # (Manual) D-Dimer ABG pH ABG pO2 ABG HCO3 ABG Base Excess Oxyhemoglobin Potassium Glucose 138 H POC Glucose Calcium Magnesium Lactate Dehydrogenase 275 H Urine WBC (Auto) Salicylates Acetaminophen 11/18/21 11/18/21 11/19/21 18:45 23:33 04:58 WBC RBC Hgb Hct MCH RDW Lymph % (Auto) [place] % (Auto) Lymph # (Auto) [place] # (Auto) Seg Neutrophils % Lymphocytes % (Manual) Seg Neutrophils # Seg Neutrophils # Man Lymphocytes # (Manual) D-Dimer ABG pH ABG pO2 ABG HCO3 ABG Base Excess Oxyhemoglobin Potassium Glucose 130 H POC Glucose 132 H 113 H Calcium Magnesium Lactate Dehydrogenase Urine WBC (Auto) Salicylates Acetaminophen 11/19/21 11/19/21 11/19/21 07:59 07:59 08:55 WBC 12.7 H RBC 5.29 H Hgb Hct 45.5 H MCH 26 L RDW 17.4 H Lymph % (Auto) 12.3 L [place] % (Auto) 9.6 H Lymph # (Auto) [place] # (Auto) 1.2 H Seg Neutrophils % 76.9 H Lymphocytes % (Manual) Seg Neutrophils # 9.7 H Seg Neutrophils # Man Lymphocytes # (Manual) D-Dimer ABG pH 7.518 H ABG pO2 77.6 L ABG HCO3 30.1 H ABG Base Excess 6.9 H Oxyhemoglobin Potassium 3.1 L D Glucose 115 H POC Glucose Calcium 8.1 L Magnesium Lactate Dehydrogenase Urine WBC (Auto) Salicylates Acetaminophen 11/19/21 11:33 WBC RBC Hgb Hct MCH RDW Lymph % (Auto) [place] % (Auto) Lymph # (Auto) [place] # (Auto) Seg Neutrophils % Lymphocytes % (Manual) Seg Neutrophils # Seg Neutrophils # Man Lymphocytes # (Manual) D-Dimer ABG pH ABG pO2 ABG HCO3 ABG Base Excess Oxyhemoglobin Potassium Glucose POC Glucose 119 H Calcium Magnesium Lactate Dehydrogenase Urine WBC (Auto) Salicylates Acetaminophen Chest x-ray: image reviewed (hypoventilation) Allied health notes reviewed: nursing
--- NOTE | 2021-11-19 13:17 | Progress Note ---
Assessment and Plan Assessment and plan: This is a 81-year-old AA female with past medical history of CAD, CHF, pulmonary hypertension, COPD, and tobacco abuse admitted for acute hypoxemic respiratory failure 2/2 of bilateral pneumonia vs COPD exacerbation/pulmonary edema requiring intubation and ventilatory support. Hospital Course to Date: 11/18: Patient was seen and examined in the ED. Patient is intubated and sedated on propofol and versed gtt, RASS -3 to -4. Patient is in hypertensive emergency this am, SBP in the 240s, cardene gtt was initiated, maintain SBP less than 160. Leukocytosis noted, UA significant for UTI. Lactic, procal, and CRP are normal. Patient remains afebrile, continue empiric IV abx for now. Tracheal aspirate ordered, blood culture is pending. Continue to f/u on culture data. 11/19: Patient remains intubated and sedated. Patient did not tolerate sedation vacation this am, became tachycardic, hypertensive, with elevated RR and SPO2 in the low 80s. Sedation back on, continue to wean sedation as tolerated for RASS goal of 0 to -2. Pateimt is off cardene gtt, PRN hydralazine for SPO2 above 160. Low K repleted, repeat labs in the am. Assessment and Plan #Neuro: Agitation - Patient intubated and sedated on propofol and fentanyl gtts RASS -3 - Patient did not tolerate sedation vacation this am - Continue sedation for RASS goal of 0 to -2 - Daily SAT and SBT per CCM - Avoid benzodiazepine to reduce the possibility of delirium - PRN analgesia for CPOT greater than 3 - Maintenance of sleep-wake cycle #Hypertensive Emergency #CHF and Pulmonary HTN #H/o CAD - Patient SBP as in the 240s in the ED - S/p cardene gtt - 12/2020 Echo with a EF of 60- 65% - BMP 867 - Continue IV lasix - Continue blood pressure monitor per protocol - PRN hydralazine for SBP greater than 160 #Acute Hypoxemic Respiratory Failure #COPD Exacerbation #Bilateral Pneumonia #Pulmonary Edema - Chest x-ray shows bilateral pulmonary opacities possibly representing edema/atelectasis or pneumonia. - CT of the chest shows evidence of pulmonary hypertension with dense consolidation along the left lower lobe that is concerning for pneumonia. Mild interstitial pulmonary edema. - Patient intubated in the ED on 12/23 - Vent Setting: A/C- 60%,6,24,450 - COVID swab neg. - AM ABG noted - CCM consulted, appreciate recommendations - Continue Nebs per CCM - Continue IV Lasix and IV abx - VAP bundle addressed - Aspiration precaution HOB above 30 - Daily SBT and SAT trials as tolerated - Daily ABG and CXR - Continue SPO2 monitoring for SPO2 goal above 92% #GI:TF - Eneteral nutrition initiated - Nutrition on consult - Continue PPI- Pepcid - Continue BR #Hypokalemia - Patient is on lasix - Low K repleted - Monitor and replace electrolytes as needed - Trend BMP - Strict intake and output - Avoid nephrotoxic medications; Renally dose medications - Bhandari in place #Elevated D-Dimer - BLE DVT negative - Per CCM no indication for CTA at this time - Lovenox added for DVT proph. - SCDs to bilateral lower extremities while in bed #ID:Bilateral Pneumonia #Urinary tract Infection #Leukocytosis - Imagings shown bilateral opacities representing pulmonary edema vs pneumonia - WBCs as high as 15.6, downtrending - CRP and procal is normal - COVID swab neg - Urinalysis was significant for UTI. - B. culture neg as of date - Sputum culture pending - Patient is afebrile - Continue empiric IV abx for now - Continue to F/U on B.cult - Daily CBC monitor - Consider ID consult if febrile or/and if leukocytosis persist #Endo:Glycemic Control - BG check Q6hrs while on TF - No SSI at this time - Avoid Hypoglycemia The high probability of a clinically significant, sudden or life threatening deterioration of the [Neuro, Resp, CV] system(s) required my full and direct attention, intervention and personal management. The aggregate critical care time was [60] minutes. This time is in addition to time spent performing reported procedures but includes the following: [x] Data Review and interpretation [x] Patient assessment and monitoring of vital signs [x] Documentation [x] Medication orders and management Disposition Plan: ICU Total Time Spent with Patient (Minutes): 60 History Interval history: Patient seen and examined at the bedside. Patient is intubated and sedated, on propofol and fentanyl RASS -3. Patient is off cardene, BP is stable. [place] overnight Hospitalist Physical - Constitutional Vitals: Temp Pulse Resp BP Pulse Ox 97.9 F 63 24 111/63 95 12/24/21 11:54 11/19/21 12:41 11/19/21 12:00 11/19/21 12:41 11/19/21 12:41 General appearance: Present: no acute distress, other (Intubated and Sedated) - EENT Eyes: Present: PERRL - Respiratory Respiratory effort: normal Respiratory: bilateral: diminished - Cardiovascular Rhythm: regular Heart Sounds: Present: S1 & S2 - Extremities Extremities: no ischemia, pulses intact, pulses symmetrical Extremity abnormal: edema - Peripheral Assessment Generalized Edema Type: Non-pitting Edema Degree: 1+ Capillary Refill: < 3 seconds Skin Temperature: Warm Peripheral Pulses: within normal limits - Abdominal General gastrointestinal: soft, non-tender, normal bowel sounds - Integumentary Integumentary: Present: warm, dry - Psychiatric Psychiatric: other (Intubated and Sedated) - Neurologic Neurologic: other (Intubated and Sedated) - Allied Health Allied health notes reviewed: nursing HEART Score - HEART Score Troponin: Troponin T < 0.010 ng/mL (0.00-0.029) 11/18/21 03:25 Results - Labs CBC & Chem 7: 11/19/21 07:59 11/19/21 07:59 Labs: Laboratory Last Values WBC 12.7 K/mm3 (4.5-11.0) H 11/19/21 07:59 RBC 5.29 M/mm3 (3.65-5.03) H 11/19/21 07:59 Hgb 13.5 gm/dl (10.1-14.3) 11/19/21 07:59 Hct 45.5 % (30.3-42.9) H 11/19/21 07:59 MCV 86 fl (79-97) 11/19/21 07:59 MCH 26 pg (28-32) L 11/19/21 07:59 MCHC 30 % (30-34) 11/19/21 07:59 RDW 17.4 % (13.2-15.2) H 11/19/21 07:59 Plt Count 285 K/mm3 (140-440) 11/19/21 07:59 Lymph % (Auto) 12.3 % (13.4-35.0) L 11/19/21 07:59 [place] % (Auto) 9.6 % (0.0-7.3) H 11/19/21 07:59 Eos % (Auto) 0.7 % (0.0-4.3) 11/19/21 07:59 Baso % (Auto) 0.5 % (0.0-1.8) 11/19/21 07:59 Lymph # (Auto) 1.6 K/mm3 (1.2-5.4) 11/19/21 07:59 [place] # (Auto) 1.2 K/mm3 (0.0-0.8) H 11/19/21 07:59 Eos # (Auto) 0.1 K/mm3 (0.0-0.4) 11/19/21 07:59 Baso # (Auto) 0.1 K/mm3 (0.0-0.1) 11/19/21 07:59 Add Manual Diff Complete 11/18/21 00:19 Total Counted 100 11/18/21 00:19 Seg Neutrophils % 76.9 % (40.0-70.0) H 11/19/21 07:59 Lymphocytes % (Manual) 4.0 % (13.4-35.0) L 11/18/21 00:19 Monocytes % (Manual) 2.0 % (0.0-7.3) 11/18/21 00:19 Nucleated RBC % Not Reportable 11/18/21 00:19 Seg Neutrophils # 9.7 K/mm3 (1.8-7.7) H 11/19/21 07:59 Seg Neutrophils # Man 14.7 K/mm3 (1.8-7.7) H 11/18/21 00:19 Band Neutrophils # 0.0 K/mm3 11/18/21 00:19 Lymphocytes # (Manual) 0.6 K/mm3 (1.2-5.4) L 11/18/21 00:19 Abs React Lymphs (Man) 0.0 K/mm3 11/18/21 00:19 Monocytes # (Manual) 0.3 K/mm3 (0.0-0.8) 11/18/21 00:19 Eosinophils # (Manual) 0.0 K/mm3 (0.0-0.4) 11/18/21 00:19 Basophils # (Manual) 0.0 K/mm3 (0.0-0.1) 11/18/21 00:19 Metamyelocytes # 0.0 K/mm3 11/18/21 00:19 Myelocytes # 0.0 K/mm3 11/18/21 00:19 Promyelocytes # 0.0 K/mm3 11/18/21 00:19 Blast Cells # 0.0 K/mm3 11/18/21 00:19 WBC Morphology Not Reportable 11/18/21 00:19 Hypersegmented Neuts Not Reportable 11/18/21 00:19 Hyposegmented Neuts Not Reportable 11/18/21 00:19 Hypogranular Neuts Not Reportable 11/18/21 00:19 Smudge Cells Not Reportable 11/18/21 00:19 Toxic Granulation Not Reportable 11/18/21 00:19 Toxic Vacuolation Not Reportable 11/18/21 00:19 Dohle Bodies Not Reportable 11/18/21 00:19 Pelger-Huet Anomaly Not Reportable 11/18/21 00:19 Luis Rods Not Reportable 11/18/21 00:19 Platelet Estimate Consistent w auto 11/18/21 00:19 Clumped Platelets Not Reportable 11/18/21 00:19 Plt Clumps, EDTA Not Reportable 11/18/21 00:19 Large Platelets Not Reportable 11/18/21 00:19 Giant Platelets Not Reportable 11/18/21 00:19 Platelet Satelliting Not Reportable 11/18/21 00:19 Plt Morphology Comment Not Reportable 11/18/21 00:19 RBC Morphology Not Reportable 11/18/21 00:19 Dimorphic RBCs Not Reportable 11/18/21 00:19 Polychromasia Not Reportable 11/18/21 00:19 Hypochromasia Not Reportable 11/18/21 00:19 Poikilocytosis Not Reportable 11/18/21 00:19 Anisocytosis 1+ 11/18/21 00:19 Microcytosis Not Reportable 11/18/21 00:19 Macrocytosis Few 11/18/21 00:19 Spherocytes Not Reportable 11/18/21 00:19 Pappenheimer Bodies Not Reportable 11/18/21 00:19 Sickle Cells Not Reportable 11/18/21 00:19 Target Cells Not Reportable 11/18/21 00:19 Tear Drop Cells Not Reportable 11/18/21 00:19 Ovalocytes Not Reportable 11/18/21 00:19 Helmet Cells Not Reportable 11/18/21 00:19 [place] Bodies Not Reportable 11/18/21 00:19 Denio Rings Not Reportable 11/18/21 00:19 Yumi Cells Not Reportable 11/18/21 00:19 Bite Cells Not Reportable 11/18/21 00:19 Crenated Cell Not Reportable 11/18/21 00:19 Elliptocytes Not Reportable 11/18/21 00:19 Acanthocytes (Spur) Not Reportable 11/18/21 00:19 Rouleaux Not Reportable 11/18/21 00:19 Hemoglobin C Crystals Not Reportable 11/18/21 00:19 Schistocytes Not Reportable 11/18/21 00:19 Malaria parasites Not Reportable 11/18/21 00:19 Shahriar Bodies Not Reportable 11/18/21 00:19 Hem Pathologist Commnt No 11/18/21 00:19 PT 12.9 Sec. (12.2-14.9) 11/18/21 00:19 INR 0.88 (0.87-1.13) 11/18/21 00:19 APTT 29.2 Sec. (24.2-36.6) 11/18/21 00:19 D-Dimer 464.80 ng/mlDDU (0-234) H 11/18/21 05:15 ABG pH 7.518 pH Units (7.350-7.450) H 11/19/21 08:55 ABG pCO2 38.0 mm Hg 11/19/21 08:55 ABG pO2 77.6 mm Hg (80.0-90.0) L 11/19/21 08:55 ABG HCO3 30.1 mmol/L (20.0-26.0) H 11/19/21 08:55 ABG O2 Saturation 96.9 % (95.0-99.0) 11/19/21 08:55 ABG O2 Content 18.9 (0.0-44) 11/19/21 08:55 ABG Base Excess 6.9 mmol/L (-2.0-3.0) H 11/19/21 08:55 ABG Hemoglobin 14.2 gm/dl (12.0-16.0) 11/19/21 08:55 ABG Carboxyhemoglobin 1.5 % (0.0-5.0) 11/19/21 08:55 ABG Methemoglobin 0.4 % (0.0-1.5) 11/19/21 08:55 Oxyhemoglobin 95.0 % (95.0-99.0) 11/19/21 08:55 FiO2 60 % 11/19/21 08:55 Sodium 143 mmol/L (137-145) 11/19/21 07:59 Potassium 3.1 mmol/L (3.6-5.0) L D 11/19/21 07:59 Chloride 102.3 mmol/L (98-107) 11/19/21 07:59 Carbon Dioxide 28 mmol/L (22-30) 11/19/21 07:59 Anion Gap 16 mmol/L 11/19/21 07:59 BUN 16 mg/dL (7-17) 11/19/21 07:59 Creatinine 0.7 mg/dL (0.6-1.2) 11/19/21 07:59 Estimated GFR > 60 ml/min 11/19/21 07:59 BUN/Creatinine Ratio 23 % 11/19/21 07:59 Glucose 115 mg/dL (65-100) H 11/19/21 07:59 POC Glucose 119 mg/dL (70-105) H 11/19/21 11:33 Hemoglobin A1c 5.9 % (4-6) 11/19/21 07:59 Lactic Acid 1.40 mmol/L (0.7-2.0) 11/18/21 00:19 Calcium 8.1 mg/dL (8.4-10.2) L 11/19/21 07:59 Magnesium 2.50 mg/dL (1.7-2.3) H 11/18/21 00:19 Total Bilirubin 0.40 mg/dL (0.1-1.2) 11/18/21 00:19 Direct Bilirubin < 0.2 mg/dL (0-0.2) 11/18/21 00:19 Indirect Bilirubin 0.2 mg/dL 11/18/21 00:19 AST 22 units/L (5-40) 11/18/21 00:19 ALT 25 units/L (7-56) 11/18/21 00:19 Alkaline Phosphatase 99 units/L (35-129) 11/18/21 00:19 Ammonia 54.0 umol/L (25-60) 11/18/21 00:19 Lactate Dehydrogenase 275 units/L (91-180) H 11/18/21 05:15 Troponin T < 0.010 ng/mL (0.00-0.029) 11/18/21 03:25 C-Reactive Protein 0.70 mg/dL (0.00-1.30) 11/18/21 15:47 NT-Pro-B Natriuret Pep 867.7 pg/mL (0-900) 11/18/21 00:19 Total Protein 7.4 g/dL (6.3-8.2) 11/18/21 00:19 Albumin 4.0 g/dL (3.9-5) 11/18/21 00:19 Albumin/Globulin Ratio 1.2 % 11/18/21 00:19 Lipase 13 units/L (13-60) 11/18/21 00:19 Procalcitonin 0.12 ng/mL (<0.15) 11/18/21 05:15 Urine Color Yellow (Yellow) 11/18/21 01:03 Urine Turbidity Clear (Clear) 11/18/21 01:03 Urine pH 5.0 (5.0-7.0) 11/18/21 01:03 Ur Specific Ideal 1.009 (1.003-1.030) 11/18/21 01:03 Urine Protein 100 mg/dl mg/dL (Negative) 11/18/21 01:03 Urine Glucose (UA) Neg mg/dL (Negative) 11/18/21 01:03 Urine Ketones Neg mg/dL (Negative) 11/18/21 01:03 Urine Blood Sm (Negative) 11/18/21 01:03 Urine Nitrite Neg (Negative) 11/18/21 01:03 Urine Bilirubin Neg (Negative) 11/18/21 01:03 Urine Urobilinogen < 2.0 mg/dL (<2.0) 11/18/21 01:03 Ur Leukocyte Esterase Tr (Negative) 11/18/21 01:03 Urine WBC (Auto) 16.0 /HPF (0.0-6.0) H 11/18/21 01:03 Urine RBC (Auto) 3.0 /HPF (0.0-6.0) 11/18/21 01:03 U Epithel Cells (Auto) 1.0 /HPF (0-13.0) 11/18/21 01:03 Hyaline Casts 3 /LPF 11/18/21 01:03 Urine Mucus Few /HPF 11/18/21 01:03 Salicylates < 0.3 mg/dL (2.8-20.0) L 11/18/21 00:19 Urine Opiates Screen Negative 11/18/21 01:03 Urine Methadone Screen Negative 11/18/21 01:03 Acetaminophen 5.0 ug/mL (10.0-30.0) L 11/18/21 00:19 Ur Barbiturates Screen Negative 11/18/21 01:03 Ur Phencyclidine Scrn Negative 11/18/21 01:03 Ur Amphetamines Screen Negative 11/18/21 01:03 U Benzodiazepines Scrn Negative 11/18/21 01:03 Urine Cocaine Screen Negative 11/18/21 01:03 U Marijuana (THC) Screen Negative 11/18/21 01:03 Drugs of Abuse Note Disclamer 11/18/21 01:03 Plasma/Serum Alcohol < 0.01 % (0-0.07) 11/18/21 00:19 Coronavirus (PCR) Negative (Negative) 11/18/21 Unknown Microbiology: Microbiology 11/18/21 00:19 Peripheral/Venous Blood Culture - Preliminary NO GROWTH AFTER 24 HOURS 11/18/21 00:19 Peripheral/Venous Blood Culture - Preliminary NO GROWTH AFTER 24 HOURS Bhandari/IV: Voiding Method Indwelling Catheter Active Medications - Current Medications Current Medications: Generic Name Dose Route Start Last Admin Trade Name Freq PRN Reason Stop Dose Admin Acetaminophen 650 mg 11/18/21 03:10 Acetaminophen 650 Mg Rect Supp SD Q6H PRN Pain MILD(1-3)/Fever >100.5/MONTIEL Lipase/Protease/Amylase 1 each 11/18/21 16:10 Lipase 10,500/Protease 25,000/Amylase 43,750 (Units) Dr Cross FEEDTUBE PRN PRN For Clogged Feeding Tube Arformoterol Tartrate 15 mcg 11/18/21 20:00 11/19/21 08:26 Arformoterol 15 Mcg/2 Ml Nebu IH 15 mcg Q12HRT PAULINA Administration Budesonide 0.5 mg 11/18/21 20:00 11/19/21 08:26 Budesonide 0.5 Mg/2 Ml Nebu IH 0.5 mg Q12HRT PAULINA Administration Dextrose 50 ml 11/18/21 10:40 Dextrose 50% In Water (25gm) 50 Ml Syringe IV Q30MIN PRN Hypoglycemia Protocol Famotidine 20 mg 11/19/21 10:00 11/19/21 09:14 Famotidine 20 Mg/2 Ml Inj IV 20 mg BID PAULINA Administration Fentanyl 50 mcg 11/18/21 13:10 Fentanyl 100 Mcg/2 Ml Inj IV Q10MIN PRN ANALGESIA Furosemide 20 mg 11/18/21 16:00 11/19/21 09:14 Furosemide 20 Mg/2 Ml Inj IV 20 mg BID PAULINA Administration Hydralazine HCl 10 mg 11/18/21 10:44 Hydralazine 20 Mg/1 Ml Inj IV Q4HR PRN Hypertension Hydrophilic Ointment 1 applic 11/18/21 15:26 Lip Therapy Vaseline TP Q2HR PRN Dry Lips Propofol 1,000 mg in 100 mls @ 2.55 mls/hr 11/18/21 02:00 11/19/21 13:02 Diprivan 10 Mg/Ml IV 30 mcg/kg/min TITR PAULINA 15.3 mls/hr Titration Protocol 5 MCG/KG/MIN Sodium Chloride 1,000 mls @ 125 mls/hr 11/18/21 03:15 11/19/21 10:30 Nacl 0.9% 1000 Ml IV 0 mls/hr DIRECT PAULINA Infusion Ceftriaxone Sodium 2 gm in 100 mls @ 200 mls/hr 11/18/21 04:00 11/19/21 04:01 Rocephin/Ns 2 Gm/100 Ml IV 11/22/21 04:29 200 mls/hr Q24H PAULINA Administration Protocol Azithromycin 500 mg in 250 mls @ 250 mls/hr 11/18/21 04:00 11/19/21 05:16 Zithromax/Ns IV 11/22/21 04:59 250 mls/hr Q24H PAULINA Administration Protocol Nicardipine HCl 50 mg/ Sodium 250 mls @ 25 mls/hr 11/18/21 12:00 11/18/21 23:45 Chloride IV Infused TITR PAULINA Titration Protocol 5 MG/HR Fentanyl Citrate 2,000 mcg in 100 mls @ 4.25 mls/hr 11/18/21 14:00 11/19/21 13:03 Fentanyl Drip Premix IV 4 mcg/kg/hr TITR PAULINA 17 mls/hr Titration Protocol 1 MCG/KG/HR Insulin Human Lispro 0 unit 11/18/21 12:00 11/19/21 11:39 Insulin Lispro 100 Unit/Ml SUB-Q Not Given Q6HR PAULINA Protocol Magnesium Hydroxide 30 ml 11/18/21 03:10 Magnesium Hydroxide (Mom) Oral Liqd Udc PO Q4H PRN Constipation Multi-Ingred Cream/Lotion/Oil/Oint 1 applic 11/18/21 15:26 Mineral Oil/Petrolatum, White Ophth Oint 3.5 Gm OU Q4HR PRN Dry Eye(s) Ondansetron HCl 4 mg 11/18/21 03:10 Ondansetron 4 Mg/2 Ml Inj IV Q8H PRN Nausea And Vomiting Potassium Chloride 40 meq 11/19/21 13:04 Potassium Chloride 20 Meq Packet FEEDTUBE 11/19/21 13:05 ONCE ONE Senna/Docusate Sodium 1 tab 11/18/21 22:00 11/19/21 09:14 Sennosides/Docusate Sodium 8.6/50 Mg Tab FEEDTUBE 1 tab BID PAULINA Administration Simple Syrup 15 ml 11/18/21 16:10 Simple Syrup 15 Ml FEEDTUBE PRN PRN Hypoglycemia Simple Syrup 30 ml 11/18/21 16:10 Simple Syrup 15 Ml FEEDTUBE PRN PRN Hypoglycemia Sodium Bicarbonate 325 mg 11/18/21 16:10 Sodium Bicarbonate 325 Mg Tab FEEDTUBE PRN PRN For Clogged Feeding Tube Nutrition/Malnutrition Assess - Dietary Evaluation Nutrition/Malnutrition Findings: Nutrition Notes Start: 11/18/21 10:45 Freq: Status: Active Protocol: Document 11/18/21 15:57 LEONARDO (Rec: 11/18/21 16:14 LEONARDO [id number]) Nutrition Notes Initial or Follow up Brief Note Current Diet TF-Promote @ 65 ml/hr (since D 11/18). Subjective/Other Information RD consult to write/mange TF. TF order placed. F/U for TF tolerance. Percent of energy/protein needs met: Prescribed TF-Promote @ 65 ml/ hr provides for energy/protein needs (1,570 Kcal/98 g) during LOS; 95% Kcal; 96% AA. Nutrition Intervention Nutrition Support: Start Promote @ 65 ml/hr. Flush: 60 ml water Q 4 hr. Kcal 1,570 Protein (gm) 98 Carbohydrates (gm) 204 Fat (gm) 41 Fluid (mL) 1,317 Fiber (gm) 0 % RDI: 95% Kcal; 96% AA. Goal #1 Provide at least 75% of energy /protein needs through Enteral Feeding during LOS. Goal #2 Maintain body weight within +/ -3% of admission body weight during LOS. Goal #3 Reach and maintain acceptable chemistry lab values during LOS. Follow-Up By: 11/20/21 Additional Comments Continue monitoring TF tolerance, Hydration, and BM.
[2021-11-19] MEDS: ENOXAPARIN 40 MG/0.4 ML INJ SUB-Q SCH (21:44)
[2021-11-20] MEDS: INSULIN LISPRO 100 UNIT/ML SUB-Q SCH ×4 (00:30→19:13)
[2021-11-20] MEDS: fentaNYL DRIP Premix 2,000 MCG/100 ML BAG IV SCH ×3 (02:40→23:57)
--- NOTE | 2021-11-20 03:27 | XRay Report ---
CHEST 1 VIEW 11/20/2021 2:02 AM INDICATION / CLINICAL INFORMATION: follow up respiratory failure. COMPARISON: 11/19/2021 FINDINGS: SUPPORT DEVICES: None. HEART / MEDIASTINUM: Stable. LUNGS / PLEURA: Redemonstrated airspace opacities. No pneumothorax. ADDITIONAL FINDINGS: No significant additional findings. IMPRESSION: 1. No significant change. Signer Name: Andre Robins DO Signed: 11/20/2021 3:23 AM Workstation Name: [id number]
[2021-11-20] MEDS: cefTRIAXone/NS 2 GM/100 ML 2 GM/100 ML BAG IV SCH (04:03)
--- NOTE | 2021-11-20 04:32 | Consultation ---
DATE OF CONSULTATION: 11/18/2021 PULMONARY CRITICAL CARE CONSULTATION NOTE CONSULTING PHYSICIAN: Dr. Villanueva. REASON FOR CONSULTATION: Acute hypoxemic respiratory failure, on mechanical ventilatory support. CHIEF COMPLAINT AND HISTORY OF PRESENT ILLNESS: As follows. The patient is a 81-year-old obese female with a past medical history significant for a diagnosis of chronic obstructive lung disease, but also congestive heart failure. She was brought into the Emergency Room with severely altered mental status, essentially obtunded. According to the EMS, they initially called office for shortness of breath and difficulty breathing. They found the patient minimally responsive. They have brought the patient into the ER multiple times in the past with COPD exacerbations. Upon arrival, she was found to have decompensated en route. Pupils were pinpoint. She did receive 1 mg of Narcan with some improvement. The patient is described as a former smoker. With regards to her Emergency Room course, it seems that the patient decompensated further and a decision was made to go ahead and intubate the patient secondary to sonorous respirations, air protection, and desaturations. Post-intubation, we were asked to assist with management. When I stopped by to see her, she was resting in bed on the mechanical ventilator. The patient with ventilator dyssynchrony. She was, however, at the same time on propofol drip as well as Versed drip going at 2 mg per hour. Blood pressure at the time was systolic of about 220 mmHg. I do not have any history of vomiting or overt aspiration. With regards to the patient's tobacco use/abuse history, she is described as a former smoker. The above is much of the history of presentation as I have. PAST MEDICAL HISTORY: Hypertension, coronary artery disease, gastroesophageal reflux disease, arthritis, chronic obstructive lung disease, hyperlipidemia, history of neuropathy, and chronic pain syndrome. PAST SURGICAL HISTORY: She has had a partial hysterectomy and a questionable right kidney surgery as well as a history of a cholecystectomy. MEDICATIONS: She was on at the time I stopped by to see her according to medication administration record included the following: She was on Tylenol 650 mg per rectum q. 6 hours p.r.n. mild pain or fevers, Pepcid 20 mg IV daily, hydralazine 10 mg IV q. 4 hours p.r.n. elevated blood pressure. Propofol drip was going at 50 mcg per kilogram per minute, Versed drip was going at 2 mg per hour, Rocephin 2 grams IV q. 24 hours, azithromycin 500 mg IV q. 24 hours., insulin via sliding scale, Versed 2 mg IV q. 10 minutes p.r.n. for induction of sedation and Zofran 4 mg IV q. 8 hours p.r.n. nausea and vomiting. ALLERGIES: STEROIDS. Nature of this allergy is unknown or to the type of steroids. DIET: Obese lady, acute weight loss or gain history is unknown. FAMILY AND SOCIAL HISTORY: Apparently lived in the community prior to this decompensation. She is described as a former smoker. Alcohol, tobacco, or illicit drug use or abuse history are unknown. FAMILY HISTORY: Otherwise unknown. REVIEW OF SYSTEMS: Unobtainable secondary to the patient's medical and mental condition. Since she has been here, no gross hematochezia or melena, no gross hematuria, no hematemesis, no bloody tracheal secretions, no witnessed seizures. Review of systems otherwise unobtainable or as in the body of the history above. PHYSICAL EXAMINATION: VITAL SIGNS: At presentation in the Emergency Room revealed vital signs shows that the first temperature I have is 98.2, her pulse at presentation was 103, respiratory rate mechanically 18, and blood pressure 178/76, O2 sats were 98%, inspired oxygen concentration at that time was not recorded. When I stopped by to see her, her O2 sats were 99% that was on the mechanical ventilator. I believe her settings were assist control 450 tidal volumes, ____ rate of 24, PEEP of 6 and FiO2 of 80%. GENERAL: Again, this is an elderly obese lady. Normocephalic, atraumatic on the mechanical ventilator with mild patient ventilator dyssynchrony. HEAD, EYES, EARS, NOSE AND THROAT: Anicteric. No conjunctival erythema. Oropharynx was moist. ET tube was taped at the lips around 21-22 cm. No gross jugular venous distention. No thyromegaly. She did have some oropharyngeal secretions that were clear. I would say mild to moderate. NECK: She does have a large neck circumference. Grossly, there were no palpable lymph nodes in the supraclavicular or submandibular lymph node chains. LUNGS: Auscultation of both lung wolf revealed diminished bilateral breath sounds, but also bilateral rales, no active wheezing. HEART: Sounds 1 and 2 are heard at the time of my evaluation. Regular rate and rhythm without overt rubs or murmurs. ABDOMEN: Soft, full, protuberant. Bowel sounds are positive, nontender, no palpable hepatosplenomegaly. EXTREMITIES: Without overt digital clubbing or cyanosis. No pedal edema. Pedal pulses are 2+ bilaterally. NEUROLOGIC: Pupils were equal, round, about 2 mm, reactive to light. Extraocular muscle movements could not be assessed. She did have withdrawal movements to painful stimuli. SKIN: Normal turgor in the areas I examined without overt cellulitis or rash. Please see the wound care nurses' notes for full description of her skin. PSYCHIATRIC: Mood and affect could not be assessed. She was sedated. LABORATORY DATA: From my review are as follows: White cell count on admission 15,600, hemoglobin 14.8, hematocrit 49.8, and a platelet count was 306. No band forms on the manual differential. INR was 0.88. D-dimer was elevated at 465. Arterial blood gas showed a pH of 7.36, pCO2 of 65 and a pO2 of 90 on 100% FiO2. Serum sodium was 144, potassium 4.1, chloride 99, bicarbonate 29, BUN 10, creatinine 0.9, and glucose was 151. Lactic acid level was within normal limits. Liver function test within normal limits. BNP was within normal limits. Urinalysis: Trace leukocyte esterase, 16 white cells per high power field, no bacteria reported. Urine drug screen was negative, presumptive negative. Aspirin, Tylenol, and alcohol levels were nondetectable. Coronavirus PCR has been done and is negative. Two sets of blood cultures are no growth to date. A chest x-ray was done. A chest x-ray at presentation shows it is a poorly rotated film rotated to the right, low lung volumes, cardiomegaly, hilar congestion with enlarged pulmonary artery trunks, increased interstitial markings indeed consistent with pulmonary edema. I cannot rule out pneumonia. Post-intubation chest x-ray shows endotracheal tube in decent position, tip at the level of the aortic knob. A CT scan of her head was also done. I have reviewed the radiologist's interpretation and no acute intracranial abnormality. A CT scan of the chest was done. It was a noncontrast CT of the head, main pulmonary artery trunk appears enlarged consistent with pulmonary hypertension. There is left lower lobe atelectasis as well as partial basilar dependent atelectasis on the right, lung windows do show mild ground glass opacifications and small bilateral pleural effusions. Otherwise, no real focal infiltrates that I can see or lung masses. ASSESSMENT: 1. Acute exacerbation of chronic obstructive lung disease. 2. Acute hypoxemic respiratory failure secondary to the above. 3. Acute congestive heart failure exacerbation, possibly new onset. 4. Community-acquired pneumonia. 5. Leukocytosis. 6. History of coronary artery disease. 7. Gastroesophageal reflux disease. 8. Arthritis. 9. History of hyperlipidemia. 10. Obesity. 11. Elevated D-dimers. 12. Acute toxic metabolic encephalopathy. 13. Urinary tract infection. 14. Likely pulmonary hypertension. 15. Hypertensive emergency. CONSULTING PHYSICIAN: Dr. Castaneda. PLAN: Would be to keep her on mechanical ventilator in the short term. Oxygen will be weaned to keep sats greater than or equal to about 90%. Aspiration precautions will be maintained. Restrictive oxygen therapies initially. Arterial blood gases will be gotten as necessary to raiser helper clinical decision making and to make adjustments to the ventilator. I will increase her PEEP to 8 and wean her FiO2 at this point. Ventilator-associated pneumonia bundle has been introduced. Bronchodilators, routine pulmonary hygiene will be per the respiratory therapist. We will continue empiric community-acquired pneumonia therapy. I will order procalcitonin levels, CRP levels to help guide clinical decision making. Microbiology studies will be followed and sensitivities will be adjusted as necessary. I have asked them to start a Cardene drip and we will titrate initially for systolic blood pressure about 160 mmHg while reintroducing oral medications. I will try and review her home medication list. Enteral nutrition will be the feeding modality of choice. Initial serum troponin is negative. Venous thromboembolic disorder workup will be done. I will start with bilateral lower extremity Dopplers plus or minus CT angiogram. I will empirically start her on Lasix. I will go with Lasix 20 mg IV q. 12 hours for about 4 doses and reevaluate. A Bhandari catheter will be placed for strict I's and O's in this critically ill patient. Pertinent chronic home medications will also be reintroduced. She is appropriately on GI prophylaxis. She will be started on DVT prophylaxis with enoxaparin. Flu and pneumonia vaccination will be addressed per protocol. Thank you very much for the consult. We will follow along and make further recommendations as picture progresses/becomes clearer. She is critically ill on life-sustaining interventions including mechanical ventilatory support at very high risk of from cardiopulmonary system decompensation. At this time, I spent about 35-40 minutes of critical care time without overlap and excluding any procedural time that may be necessary. TID: [id number] RECEIPT: [id number] BEREKET/KADE/WALTER
[2021-11-20] MEDS: AZITHROMYCIN/NS 500 MG/250 ML 500 MG/250 ML BAG IV SCH (04:55)
[2021-11-20 05:05] LABS: Hematocrit 49.3 % (30.3-42.9); Hemoglobin 14.3 gm/dl (10.1-14.3); Mean Corpuscular HGB Conc 29 % (30-34); Mean Corpuscular Volume 91 fl (79-97); Platelet Count 271 K/mm3 (140-440); Red Blood Count 5.44 M/mm3 (3.65-5.03); Red Cell Distribution Width 18.3 % (13.2-15.2)
[2021-11-20 05:19] LABS: Calcium 8.7 mg/dL (8.4-10.2)
[2021-11-20] MEDS: BUDESONIDE 0.5 MG/2 ML NEBU IH SCH ×2 (08:52→21:22)
[2021-11-20] MEDS: ARFORMOTEROL 15 MCG/2 ML NEBU IH SCH ×2 (08:52→21:22)
[2021-11-20] MEDS: FUROSEMIDE 20 MG/2 ML INJ IV SCH ×2 (10:50→21:39)
[2021-11-20] MEDS: FAMOTIDINE 20 MG TAB FEEDTUBE SCH ×2 (10:50→21:39)
[2021-11-20] MEDS: FREE WATER PO SCH ×4 (10:50→21:40)
[2021-11-20] MEDS: SENNOSIDES/DOCUSATE SODIUM 8.6/50 MG TAB FEEDTUBE SCH ×2 (11:05→21:40)
--- NOTE | 2021-11-20 11:11 | Progress Note ---
Assessment and Plan Assessment and plan: This is a 81-year-old AA female with past medical history of CAD, CHF, pulmonary hypertension, COPD, and tobacco abuse admitted for acute hypoxemic respiratory failure 2/2 of bilateral pneumonia vs COPD exacerbation/pulmonary edema requiring intubation and ventilatory support. Hospital Course to Date: 11/18: Patient was seen and examined in the ED. Patient is intubated and sedated on propofol and versed gtt, RASS -3 to -4. Patient is in hypertensive emergency this am, SBP in the 240s, cardene gtt was initiated, maintain SBP less than 160. Leukocytosis noted, UA significant for UTI. Lactic, procal, and CRP are normal. Patient remains afebrile, continue empiric IV abx for now. Tracheal aspirate ordered, blood culture is pending. Continue to f/u on culture data. 11/19: Patient remains intubated and sedated. Patient did not tolerate sedation vacation this am, became tachycardic, hypertensive, with elevated RR and SPO2 in the low 80s. Sedation back on, continue to wean sedation as tolerated for RASS goal of 0 to -2. Pateimt is off cardene gtt, PRN hydralazine for SPO2 above 160. Low K repleted, repeat labs in the am. 11/20: Remains on the vent and sedated, RASS -3. Plan to wean down on sedation, might need to add Seroquel if patient is not tolerating sedation. Hypernatremia and increased BUN/Cr. this am, patient is on lasix BID. Will discuss with CCM to possibly hold or decreased IV lasix for now, FWF added for high Na. Urinary retention post briggs removal, bladder scan and straight cath per protocol. Assessment and Plan #Neuro: Agitation - Patient intubated and sedated on propofol and fentanyl gtts RASS -3 - Continue sedation for RASS goal of 0 to -2 - Daily SAT and SBT per CCM - Avoid benzodiazepine to reduce the possibility of delirium - PRN analgesia for CPOT greater than 3 - Maintenance of sleep-wake cycle #CHF and Pulmonary HTN #Hypertensive Emergency-resolved #H/o CAD - Patient SBP as in the 240s in the ED - S/p cardene gtt - 12/2020 Echo with a EF of 60- 65% - BMP 867 - Continue IV lasix for now per CCM - Continue blood pressure monitor per protocol - PRN hydralazine for SBP greater than 160 #Acute Hypoxemic Respiratory Failure #COPD Exacerbation #Bilateral Pneumonia #Pulmonary Edema - Chest x-ray shows bilateral pulmonary opacities possibly representing edema/atelectasis or pneumonia. - CT of the chest shows evidence of pulmonary hypertension with dense consolidation along the left lower lobe that is concerning for pneumonia. Mild interstitial pulmonary edema. - Patient intubated in the ED on 11/18 - Vent Setting: A/C- 60%,6,12,450 - COVID swab neg. - AM ABG noted - CCM consulted, appreciate recommendations - Continue Nebs per CCM - Continue IV Lasix and IV abx per CCM - VAP bundle addressed - Aspiration precaution HOB above 30 - Daily SBT and SAT trials as tolerated - Daily ABG and CXR - Continue SPO2 monitoring for SPO2 goal above 92% #GI:TF - Eneteral nutrition initiated - Nutrition on consult - Continue PPI- Pepcid - Continue BR #Urinary Retention #Hypokalemia-resolved - Patient is on lasix - Low K repleted - Monitor and replace electrolytes as needed - Trend BMP - Strict intake and output - Avoid nephrotoxic medications; Renally dose medications - Briggs D/C - Retention since briggs removal, bladder scan and straight cath per protocol #Elevated D-Dimer - BLE DVT negative - Per [facility] no indication for CTA at this time - Lovenox added for DVT proph. - SCDs to bilateral lower extremities while in bed #ID:Bilateral Pneumonia #Urinary tract Infection #Leukocytosis - Imagings shown bilateral opacities representing pulmonary edema vs pneumonia - WBCs as high as 15.6, downtrending - CRP and procal is normal - COVID swab neg - Urinalysis was significant for UTI. - B. culture neg as of date - Sputum culture pending - Patient is afebrile - Continue empiric IV abx for now - Continue to F/U on B.cult - Daily CBC monitor - Consider ID consult if febrile or/and if leukocytosis persist #Endo:Glycemic Control - BG check Q6hrs while on TF - No SSI at this time - Avoid Hypoglycemia The high probability of a clinically significant, sudden or life threatening deterioration of the [Neuro, Resp, CV] system(s) required my full and direct attention, intervention and personal management. The aggregate critical care time was [60] minutes. This time is in addition to time spent performing reported procedures but includes the following: [x] Data Review and interpretation [x] Patient assessment and monitoring of vital signs [x] Documentation [x] Medication orders and management Disposition Plan: ICU Total Time Spent with Patient (Minutes): 60 History Interval history: Patient seen and examined at the bedside. Patient is intubated and sedated, on propofol and fentanyl RASS -3. Patient has not voided since briggs was D/Valeriano, Bladder scanned and straight cathed per protocol. Hospitalist Physical - Constitutional Vitals: Temp Pulse Resp BP Pulse Ox 100.1 F H 76 12 123/49 92 11/20/21 08:00 11/20/21 11:01 11/20/21 11:01 11/20/21 11:01 11/20/21 11:01 General appearance: Present: no acute distress, other (Intubated and Sedated) - EENT Eyes: Present: PERRL - Respiratory Respiratory effort: normal Respiratory: bilateral: diminished - Cardiovascular Rhythm: regular Heart Sounds: Present: S1 & S2 - Extremities Extremities: no ischemia, pulses intact, pulses symmetrical Extremity abnormal: edema - Peripheral Assessment Generalized Edema Type: Non-pitting Edema Degree: 1+ Capillary Refill: < 3 seconds Skin Temperature: Warm Peripheral Pulses: within normal limits - Abdominal General gastrointestinal: soft, non-tender, normal bowel sounds - Integumentary Integumentary: Present: warm, dry - Psychiatric Psychiatric: other (Intubated and sedated) - Neurologic Neurologic: other (Intubated and sedated) - Allied Health Allied health notes reviewed: nursing HEART Score - HEART Score Troponin: Troponin T < 0.010 ng/mL (0.00-0.029) 11/18/21 03:25 Results - Labs CBC & Chem 7: 11/21/21 04:44 11/21/21 04:44 Labs: Laboratory Last Values WBC 13.9 K/mm3 (4.5-11.0) H 11/20/21 04:20 RBC 5.44 M/mm3 (3.65-5.03) H 11/20/21 04:20 Hgb 14.3 gm/dl (10.1-14.3) 11/20/21 04:20 Hct 49.3 % (30.3-42.9) H 11/20/21 04:20 MCV 91 fl (79-97) 11/20/21 04:20 MCH 26 pg (28-32) L 11/20/21 04:20 MCHC 29 % (30-34) L 11/20/21 04:20 RDW 18.3 % (13.2-15.2) H 11/20/21 04:20 Plt Count 271 K/mm3 (140-440) 11/20/21 04:20 Lymph % (Auto) 12.3 % (13.4-35.0) L 11/19/21 07:59 Alexander % (Auto) 9.6 % (0.0-7.3) H 11/19/21 07:59 Eos % (Auto) 0.7 % (0.0-4.3) 11/19/21 07:59 Baso % (Auto) 0.5 % (0.0-1.8) 11/19/21 07:59 Lymph # (Auto) 1.6 K/mm3 (1.2-5.4) 11/19/21 07:59 Alexander # (Auto) 1.2 K/mm3 (0.0-0.8) H 11/19/21 07:59 Eos # (Auto) 0.1 K/mm3 (0.0-0.4) 11/19/21 07:59 Baso # (Auto) 0.1 K/mm3 (0.0-0.1) 11/19/21 07:59 Add Manual Diff Complete 11/18/21 00:19 Total Counted 100 11/18/21 00:19 Seg Neutrophils % 76.9 % (40.0-70.0) H 11/19/21 07:59 Lymphocytes % (Manual) 4.0 % (13.4-35.0) L 11/18/21 00:19 Monocytes % (Manual) 2.0 % (0.0-7.3) 11/18/21 00:19 Nucleated RBC % Not Reportable 11/18/21 00:19 Seg Neutrophils # 9.7 K/mm3 (1.8-7.7) H 11/19/21 07:59 Seg Neutrophils # Man 14.7 K/mm3 (1.8-7.7) H 11/18/21 00:19 Band Neutrophils # 0.0 K/mm3 11/18/21 00:19 Lymphocytes # (Manual) 0.6 K/mm3 (1.2-5.4) L 11/18/21 00:19 Abs React Lymphs (Man) 0.0 K/mm3 11/18/21 00:19 Monocytes # (Manual) 0.3 K/mm3 (0.0-0.8) 11/18/21 00:19 Eosinophils # (Manual) 0.0 K/mm3 (0.0-0.4) 11/18/21 00:19 Basophils # (Manual) 0.0 K/mm3 (0.0-0.1) 11/18/21 00:19 Metamyelocytes # 0.0 K/mm3 11/18/21 00:19 Myelocytes # 0.0 K/mm3 11/18/21 00:19 Promyelocytes # 0.0 K/mm3 11/18/21 00:19 Blast Cells # 0.0 K/mm3 11/18/21 00:19 WBC Morphology Not Reportable 11/18/21 00:19 Hypersegmented Neuts Not Reportable 11/18/21 00:19 Hyposegmented Neuts Not Reportable 11/18/21 00:19 Hypogranular Neuts Not Reportable 11/18/21 00:19 Smudge Cells Not Reportable 11/18/21 00:19 Toxic Granulation Not Reportable 11/18/21 00:19 Toxic Vacuolation Not Reportable 11/18/21 00:19 Dohle Bodies Not Reportable 11/18/21 00:19 Pelger-Huet Anomaly Not Reportable 11/18/21 00:19 Luis Rods Not Reportable 11/18/21 00:19 Platelet Estimate Consistent w auto 11/18/21 00:19 Clumped Platelets Not Reportable 11/18/21 00:19 Plt Clumps, EDTA Not Reportable 11/18/21 00:19 Large Platelets Not Reportable 11/18/21 00:19 Giant Platelets Not Reportable 11/18/21 00:19 Platelet Satelliting Not Reportable 11/18/21 00:19 Plt Morphology Comment Not Reportable 11/18/21 00:19 RBC Morphology Not Reportable 11/18/21 00:19 Dimorphic RBCs Not Reportable 11/18/21 00:19 Polychromasia Not Reportable 11/18/21 00:19 Hypochromasia Not Reportable 11/18/21 00:19 Poikilocytosis Not Reportable 11/18/21 00:19 Anisocytosis 1+ 11/18/21 00:19 Microcytosis Not Reportable 11/18/21 00:19 Macrocytosis Few 11/18/21 00:19 Spherocytes Not Reportable 11/18/21 00:19 Pappenheimer Bodies Not Reportable 11/18/21 00:19 Sickle Cells Not Reportable 11/18/21 00:19 Target Cells Not Reportable 11/18/21 00:19 Tear Drop Cells Not Reportable 11/18/21 00:19 Ovalocytes Not Reportable 11/18/21 00:19 Helmet Cells Not Reportable 11/18/21 00:19 [place] Bodies Not Reportable 11/18/21 00:19 Outing Rings Not Reportable 11/18/21 00:19 Yumi Cells Not Reportable 11/18/21 00:19 Bite Cells Not Reportable 11/18/21 00:19 Crenated Cell Not Reportable 11/18/21 00:19 Elliptocytes Not Reportable 11/18/21 00:19 Acanthocytes (Spur) Not Reportable 11/18/21 00:19 Rouleaux Not Reportable 11/18/21 00:19 Hemoglobin C Crystals Not Reportable 11/18/21 00:19 Schistocytes Not Reportable 11/18/21 00:19 Malaria parasites Not Reportable 11/18/21 00:19 Shahriar Bodies Not Reportable 11/18/21 00:19 Hem Pathologist Commnt No 11/18/21 00:19 PT 12.9 Sec. (12.2-14.9) 11/18/21 00:19 INR 0.88 (0.87-1.13) 11/18/21 00:19 APTT 29.2 Sec. (24.2-36.6) 11/18/21 00:19 D-Dimer 464.80 ng/mlDDU (0-234) H 11/18/21 05:15 ABG pH 7.518 pH Units (7.350-7.450) H 11/19/21 08:55 ABG pCO2 38.0 mm Hg 11/19/21 08:55 ABG pO2 77.6 mm Hg (80.0-90.0) L 11/19/21 08:55 ABG HCO3 30.1 mmol/L (20.0-26.0) H 11/19/21 08:55 ABG O2 Saturation 96.9 % (95.0-99.0) 11/19/21 08:55 ABG O2 Content 18.9 (0.0-44) 11/19/21 08:55 ABG Base Excess 6.9 mmol/L (-2.0-3.0) H 11/19/21 08:55 ABG Hemoglobin 14.2 gm/dl (12.0-16.0) 11/19/21 08:55 ABG Carboxyhemoglobin 1.5 % (0.0-5.0) 11/19/21 08:55 ABG Methemoglobin 0.4 % (0.0-1.5) 11/19/21 08:55 Oxyhemoglobin 95.0 % (95.0-99.0) 11/19/21 08:55 FiO2 60 % 11/19/21 08:55 Sodium 147 mmol/L (137-145) H 11/20/21 04:20 Potassium 4.1 mmol/L (3.6-5.0) D 11/20/21 04:20 Chloride 107.0 mmol/L (98-107) 11/20/21 04:20 Carbon Dioxide 27 mmol/L (22-30) 11/20/21 04:20 Anion Gap 17 mmol/L 11/20/21 04:20 BUN 25 mg/dL (7-17) H 11/20/21 04:20 Creatinine 1.2 mg/dL (0.6-1.2) D 11/20/21 04:20 Estimated GFR 52 ml/min 11/20/21 04:20 BUN/Creatinine Ratio 21 % 11/20/21 04:20 Glucose 98 mg/dL (65-100) 11/20/21 04:20 POC Glucose 102 mg/dL (70-105) 11/20/21 05:08 Hemoglobin A1c 5.9 % (4-6) 11/19/21 07:59 Lactic Acid 1.40 mmol/L (0.7-2.0) 11/18/21 00:19 Calcium 8.7 mg/dL (8.4-10.2) 11/20/21 04:20 Phosphorus 6.40 mg/dL (2.5-4.5) H 11/20/21 04:20 Magnesium 2.10 mg/dL (1.7-2.3) 11/20/21 04:20 Total Bilirubin 0.40 mg/dL (0.1-1.2) 11/18/21 00:19 Direct Bilirubin < 0.2 mg/dL (0-0.2) 11/18/21 00:19 Indirect Bilirubin 0.2 mg/dL 11/18/21 00:19 AST 22 units/L (5-40) 11/18/21 00:19 ALT 25 units/L (7-56) 11/18/21 00:19 Alkaline Phosphatase 99 units/L (35-129) 11/18/21 00:19 Ammonia 54.0 umol/L (25-60) 11/18/21 00:19 Lactate Dehydrogenase 275 units/L (91-180) H 11/18/21 05:15 Troponin T < 0.010 ng/mL (0.00-0.029) 11/18/21 03:25 C-Reactive Protein 0.70 mg/dL (0.00-1.30) 11/18/21 15:47 NT-Pro-B Natriuret Pep 867.7 pg/mL (0-900) 11/18/21 00:19 Total Protein 7.4 g/dL (6.3-8.2) 11/18/21 00:19 Albumin 4.0 g/dL (3.9-5) 11/18/21 00:19 Albumin/Globulin Ratio 1.2 % 11/18/21 00:19 Lipase 13 units/L (13-60) 11/18/21 00:19 Procalcitonin 0.12 ng/mL (<0.15) 11/18/21 05:15 Urine Color Yellow (Yellow) 11/18/21 01:03 Urine Turbidity Clear (Clear) 11/18/21 01:03 Urine pH 5.0 (5.0-7.0) 11/18/21 01:03 Ur Specific [place] 1.009 (1.003-1.030) 11/18/21 01:03 Urine Protein 100 mg/dl mg/dL (Negative) 11/18/21 01:03 Urine Glucose (UA) Neg mg/dL (Negative) 11/18/21 01:03 Urine Ketones Neg mg/dL (Negative) 11/18/21 01:03 Urine Blood Sm (Negative) 11/18/21 01:03 Urine Nitrite Neg (Negative) 11/18/21 01:03 Urine Bilirubin Neg (Negative) 11/18/21 01:03 Urine Urobilinogen < 2.0 mg/dL (<2.0) 11/18/21 01:03 Ur Leukocyte Esterase Tr (Negative) 11/18/21 01:03 Urine WBC (Auto) 16.0 /HPF (0.0-6.0) H 11/18/21 01:03 Urine RBC (Auto) 3.0 /HPF (0.0-6.0) 11/18/21 01:03 U Epithel Cells (Auto) 1.0 /HPF (0-13.0) 11/18/21 01:03 Hyaline Casts 3 /LPF 11/18/21 01:03 Urine Mucus Few /HPF 11/18/21 01:03 Salicylates < 0.3 mg/dL (2.8-20.0) L 11/18/21 00:19 Urine Opiates Screen Negative 11/18/21 01:03 Urine Methadone Screen Negative 11/18/21 01:03 Acetaminophen 5.0 ug/mL (10.0-30.0) L 11/18/21 00:19 Ur Barbiturates Screen Negative 11/18/21 01:03 Ur Phencyclidine Scrn Negative 11/18/21 01:03 Ur Amphetamines Screen Negative 11/18/21 01:03 U Benzodiazepines Scrn Negative 11/18/21 01:03 Urine Cocaine Screen Negative 11/18/21 01:03 U Marijuana (THC) Screen Negative 11/18/21 01:03 Drugs of Abuse Note Disclamer 11/18/21 01:03 Plasma/Serum Alcohol < 0.01 % (0-0.07) 11/18/21 00:19 Coronavirus (PCR) Negative (Negative) 11/18/21 Unknown Microbiology: Microbiology 11/19/21 12:46 Tracheal Aspirate Sputum Culture - Preliminary 11/18/21 01:03 Urine,Clean Catch Urine Culture - Preliminary 11/18/21 00:19 Peripheral/Venous Blood Culture - Preliminary NO GROWTH AFTER 48 HOURS 11/18/21 00:19 Peripheral/Venous Blood Culture - Preliminary NO GROWTH AFTER 48 HOURS Briggs/IV: Voiding Method External Female Catheter Active Medications - Current Medications Current Medications: Generic Name Dose Route Start Last Admin Trade Name Freq PRN Reason Stop Dose Admin Acetaminophen 650 mg 11/18/21 03:10 Acetaminophen 650 Mg Rect Supp OR Q6H PRN Pain MILD(1-3)/Fever >100.5/MONTIEL Lipase/Protease/Amylase 1 each 11/18/21 16:10 Lipase 10,500/Protease 25,000/Amylase 43,750 (Units) Dr Cross FEEDTUBE PRN PRN For Clogged Feeding Tube Arformoterol Tartrate 15 mcg 11/18/21 20:00 11/20/21 08:52 Arformoterol 15 Mcg/2 Ml Nebu IH 15 mcg Q12HRT PAULINA Administration Azithromycin 500 mg 11/21/21 10:00 Azithromycin 250 Mg Tab FEEDTUBE 11/22/21 10:01 QDAY PAULINA Protocol Budesonide 0.5 mg 11/18/21 20:00 11/20/21 08:52 Budesonide 0.5 Mg/2 Ml Nebu IH 0.5 mg Q12HRT PAULINA Administration Dextrose 50 ml 11/18/21 10:40 Dextrose 50% In Water (25gm) 50 Ml Syringe IV Q30MIN PRN Hypoglycemia Protocol Enoxaparin Sodium 40 mg 11/19/21 22:00 11/19/21 21:44 Enoxaparin 40 Mg/0.4 Ml Inj SUB-Q 40 mg QDAY@2200 PAULINA Administration Protocol Famotidine 20 mg 11/20/21 10:00 11/20/21 10:50 Famotidine 20 Mg Tab FEEDTUBE 20 mg BID PAULINA Administration Fentanyl 50 mcg 11/18/21 13:10 Fentanyl 100 Mcg/2 Ml Inj IV Q10MIN PRN ANALGESIA Furosemide 20 mg 11/18/21 16:00 11/20/21 10:50 Furosemide 20 Mg/2 Ml Inj IV 20 mg BID PAULINA Administration Hydralazine HCl 10 mg 11/18/21 10:44 Hydralazine 20 Mg/1 Ml Inj IV Q4HR PRN Hypertension Hydrophilic Ointment 1 applic 11/18/21 15:26 Lip Therapy Vaseline TP Q2HR PRN Dry Lips Propofol 1,000 mg in 100 mls @ 2.55 mls/hr 11/18/21 02:00 11/20/21 10:58 Diprivan 10 Mg/Ml IV 15 mcg/kg/min TITR PAULINA 7.65 mls/hr Titration Protocol 5 MCG/KG/MIN Ceftriaxone Sodium 2 gm in 100 mls @ 200 mls/hr 11/18/21 04:00 11/20/21 04:03 Rocephin/Ns 2 Gm/100 Ml IV 11/22/21 04:29 200 mls/hr Q24H PAULINA Administration Protocol Nicardipine HCl 50 mg/ Sodium 250 mls @ 25 mls/hr 11/18/21 12:00 11/18/21 23:45 Chloride IV Infused TITR PAULINA Titration Protocol 5 MG/HR Fentanyl Citrate 2,000 mcg in 100 mls @ 4.25 mls/hr 11/18/21 14:00 11/20/21 10:43 Fentanyl Drip Premix IV 2 mcg/kg/hr TITR PAULINA 8.5 mls/hr Titration Protocol 1 MCG/KG/HR Insulin Human Lispro 0 unit 11/18/21 12:00 11/20/21 08:05 Insulin Lispro 100 Unit/Ml SUB-Q Not Given Q6HR [facility] Protocol Magnesium Hydroxide 30 ml 11/18/21 03:10 Magnesium Hydroxide (Mom) Oral Liqd Udc PO Q4H PRN Constipation Multi-Ingred Cream/Lotion/Oil/Oint 1 applic 11/18/21 15:26 Mineral Oil/Petrolatum, White Ophth Oint 3.5 Gm OU Q4HR PRN Dry Eye(s) Ondansetron HCl 4 mg 11/18/21 03:10 Ondansetron 4 Mg/2 Ml Inj IV Q8H PRN Nausea And Vomiting Senna/Docusate Sodium 1 tab 11/18/21 22:00 11/20/21 11:05 Sennosides/Docusate Sodium 8.6/50 Mg Tab FEEDTUBE Not Given BID PAULINA Simple Syrup 15 ml 11/18/21 16:10 Simple Syrup 15 Ml FEEDTUBE PRN PRN Hypoglycemia Simple Syrup 30 ml 11/18/21 16:10 Simple Syrup 15 Ml FEEDTUBE PRN PRN Hypoglycemia Sodium Bicarbonate 325 mg 11/18/21 16:10 Sodium Bicarbonate 325 Mg Tab FEEDTUBE PRN PRN For Clogged Feeding Tube Nutrition/Malnutrition Assess - Dietary Evaluation Nutrition/Malnutrition Findings: Nutrition Notes Start: 11/18/21 10:45 Freq: Status: Active Protocol: Document 11/18/21 15:57 LEONARDO (Rec: 11/18/21 16:14 LEONARDO [id number]) Nutrition Notes Initial or Follow up Brief Note Current Diet TF-Promote @ 65 ml/hr (since D 11/18). Subjective/Other Information RD consult to write/mange TF. TF order placed. F/U for TF tolerance. Percent of energy/protein needs met: Prescribed TF-Promote @ 65 ml/ hr provides for energy/protein needs (1,570 Kcal/98 g) during LOS; 95% Kcal; 96% AA. Nutrition Intervention Nutrition Support: Start Promote @ 65 ml/hr. Flush: 60 ml water Q 4 hr. Kcal 1,570 Protein (gm) 98 Carbohydrates (gm) 204 Fat (gm) 41 Fluid (mL) 1,317 Fiber (gm) 0 % RDI: 95% Kcal; 96% AA. Goal #1 Provide at least 75% of energy /protein needs through Enteral Feeding during LOS. Goal #2 Maintain body weight within +/ -3% of admission body weight during LOS. Goal #3 Reach and maintain acceptable chemistry lab values during LOS. Follow-Up By: 11/20/21 Additional Comments Continue monitoring TF tolerance, Hydration, and BM.
[2021-11-20 11:13] LABS: ABG HCO3 30.2 mmol/L (20.0-26.0); ABG Methemoglobin 0.6 % (0.0-1.5); ABG Oxygen Saturation 91.8 % (95.0-99.0); ABG PCO2 70.3 mm Hg; ABG PH 7.251 pH Units (7.350-7.450); ABG PO2 66.3 mm Hg (80.0-90.0)
[2021-11-20] MEDS ORDERED: TAMSULOSIN 0.4 MG CAP PO SCH (15:00)
--- NOTE | 2021-11-20 16:24 | Progress Note ---
Assessment and Plan Acute exacerbation of chronic obstructive lung disease Acute hypoxemic respiratory failure Acute congestive heart failure exacerbation (? Flash Pulmonary edema) Community-acquired pneumonia Leukocytosis History of coronary artery disease Gastroesophageal reflux disease Arthritis Hyperlipidemia Obesity Elevated D-dimers Acute toxic metabolic encephalopathy Urinary tract infection Likely pulmonary hypertension Hypertensive emergency - get 2D ECHO and address - continue diuresis and re-evaluate in am - Daily SAT and SBT assessment as tolerated - continue to wean supplemental oxygen for target O2 sat's > 90% acutely - VAP bundle addressed - continue lung protective strategies - continue bronchodilators with pulmonary hygiene per RT - wean per pulmonary driven protocols otherwise - avoid nephrotoxins, renally dose all medications - continue accuchecks with glycemic control per SSI (While critically ill target blood glucose of 140-180 mg/dL; avoid hypoglycemia) - sedation prn for target RASS 0 to -1 - continue to avoid benzodiazepine's, reduce the possibility of delirium - completed AB's per ID rec's - prn analgesia per CPOT score - Maintenance of sleep-wake cycle, avoid delirium - continue enteral nutritional support at goal rate as tolerated - G.I. & VTE prophylaxis - PT/OT/ROM exercises - continue mobility protocols for pressure ulcer prophylaxis - Monitor hemodynamics closely - continue other care per attending / other consultants - discharge planning ongoing concurrently COVID SPECIFIC INTERVENTIONS: - COVID-19 test negative .... Re-evaluate in am & prn CONDITION: CRITICAL PROGNOSIS: GUARDED CODE STATUS: FULL CODE The high probability of a clinically significant, sudden or life-threatening deterioration of the [respiratory, cardiovascular & neurologic] system(s) required my full and direct attention, intervention and personal management. The aggregate critical care time was [33] minutes without overlap. Time includes spent on; [x] Data Review and interpretation [x] Patient assessment and monitoring of vital signs [x] Documentation [x] Medication orders and management Subjective Date of service: 11/20/21 Principal diagnosis: AE-COPD; AHRF; CHF (? new onset); CAP; CAD; Obesity; HTNsive Emergency Interval history: Patient is seen today for: AE-COPD; Acute hypoxemic respiratory failure; CHF (? new onset); CAP; CAD; Obesity; HTNsive Emergency Seen and examined at bedside; 24hour events reviewed; nursing and respiratory care staff consulted; no adverse overnight events reported to me; remains on MVS; agitated during SAT's; no emesi or overt aspiration; afebrile; FiO2 at 60% with [id number] room to wean Objective Vital Signs - 12hr 11/20/21 11/20/21 11/20/21 04:29 04:31 04:41 Temperature Pulse Rate 72 73 77 Pulse Rate [ Anterior Bilateral Throughout] Pulse Rate [ From Monitor] Pulse Rate [ Right Dorsalis Pedis] Respiratory 12 12 Rate Respiratory Rate [Anterior Bilateral Throughout] Blood Pressure 107/58 107/50 107/50 O2 Sat by Pulse 90 90 90 Oximetry 11/20/21 11/20/21 11/20/21 04:51 05:01 05:11 Temperature Pulse Rate 72 71 75 Pulse Rate [ Anterior Bilateral Throughout] Pulse Rate [ From Monitor] Pulse Rate [ Right Dorsalis Pedis] Respiratory 13 12 12 Rate Respiratory Rate [Anterior Bilateral Throughout] Blood Pressure 107/50 104/37 104/37 O2 Sat by Pulse 92 92 92 Oximetry 11/20/21 11/20/21 11/20/21 05:21 05:31 05:41 Temperature Pulse Rate 77 77 78 Pulse Rate [ Anterior Bilateral Throughout] Pulse Rate [ From Monitor] Pulse Rate [ Right Dorsalis Pedis] Respiratory 13 12 12 Rate Respiratory Rate [Anterior Bilateral Throughout] Blood Pressure 104/37 104/37 104/37 O2 Sat by Pulse 92 91 92 Oximetry 11/20/21 11/20/21 11/20/21 05:51 06:01 06:11 Temperature Pulse Rate 78 77 75 Pulse Rate [ Anterior Bilateral Throughout] Pulse Rate [ From Monitor] Pulse Rate [ Right Dorsalis Pedis] Respiratory 12 12 12 Rate Respiratory Rate [Anterior Bilateral Throughout] Blood Pressure 104/37 114/48 114/48 O2 Sat by Pulse 92 92 92 Oximetry 11/20/21 11/20/21 11/20/21 06:21 06:31 06:41 Temperature Pulse Rate 74 73 73 Pulse Rate [ Anterior Bilateral Throughout] Pulse Rate [ From Monitor] Pulse Rate [ Right Dorsalis Pedis] Respiratory 12 12 12 Rate Respiratory Rate [Anterior Bilateral Throughout] Blood Pressure 114/48 114/48 114/48 O2 Sat by Pulse 93 93 93 Oximetry 11/20/21 11/20/21 11/20/21 06:51 07:01 07:11 Temperature Pulse Rate 73 74 73 Pulse Rate [ Anterior Bilateral Throughout] Pulse Rate [ From Monitor] Pulse Rate [ Right Dorsalis Pedis] Respiratory 13 13 13 Rate Respiratory Rate [Anterior Bilateral Throughout] Blood Pressure 114/48 111/48 111/48 O2 Sat by Pulse 93 93 91 Oximetry 11/20/21 11/20/21 11/20/21 07:21 07:31 07:41 Temperature Pulse Rate 78 74 74 Pulse Rate [ Anterior Bilateral Throughout] Pulse Rate [ From Monitor] Pulse Rate [ Right Dorsalis Pedis] Respiratory 12 12 12 Rate Respiratory Rate [Anterior Bilateral Throughout] Blood Pressure 111/48 111/48 111/48 O2 Sat by Pulse 87 91 91 Oximetry 11/20/21 11/20/21 11/20/21 07:51 08:00 08:01 Temperature 100.1 F H Pulse Rate 72 73 73 Pulse Rate [ Anterior Bilateral Throughout] Pulse Rate [ 73 From Monitor] Pulse Rate [ 73 Right Dorsalis Pedis] Respiratory 12 16 12 Rate Respiratory Rate [Anterior Bilateral Throughout] Blood Pressure 111/48 110/42 O2 Sat by Pulse 92 92 92 Oximetry 11/20/21 11/20/21 11/20/21 08:11 08:21 08:31 Temperature Pulse Rate 74 72 74 Pulse Rate [ Anterior Bilateral Throughout] Pulse Rate [ From Monitor] Pulse Rate [ Right Dorsalis Pedis] Respiratory 12 12 12 Rate Respiratory Rate [Anterior Bilateral Throughout] Blood Pressure 110/42 110/42 110/42 O2 Sat by Pulse 92 92 91 Oximetry 11/20/21 11/20/21 11/20/21 08:41 08:47 08:51 Temperature Pulse Rate 73 75 75 Pulse Rate [ Anterior Bilateral Throughout] Pulse Rate [ From Monitor] Pulse Rate [ Right Dorsalis Pedis] Respiratory 12 12 Rate Respiratory Rate [Anterior Bilateral Throughout] Blood Pressure 110/42 110/42 110/42 O2 Sat by Pulse 92 95 93 Oximetry 11/20/21 11/20/21 11/20/21 08:52 09:01 09:11 Temperature Pulse Rate 73 74 Pulse Rate [ 74 Anterior Bilateral Throughout] Pulse Rate [ From Monitor] Pulse Rate [ Right Dorsalis Pedis] Respiratory 12 12 Rate Respiratory 12 Rate [Anterior Bilateral Throughout] Blood Pressure 118/53 118/53 O2 Sat by Pulse 94 93 Oximetry 11/20/21 11/20/21 11/20/21 09:21 09:31 09:41 Temperature Pulse Rate 73 75 77 Pulse Rate [ Anterior Bilateral Throughout] Pulse Rate [ From Monitor] Pulse Rate [ Right Dorsalis Pedis] Respiratory 12 12 15 Rate Respiratory Rate [Anterior Bilateral Throughout] Blood Pressure 118/53 118/53 118/53 O2 Sat by Pulse 93 93 93 Oximetry 11/20/21 11/20/21 11/20/21 09:51 10:01 10:11 Temperature Pulse Rate 92 H 80 77 Pulse Rate [ Anterior Bilateral Throughout] Pulse Rate [ From Monitor] Pulse Rate [ Right Dorsalis Pedis] Respiratory 12 12 13 Rate Respiratory Rate [Anterior Bilateral Throughout] Blood Pressure 118/53 107/42 107/42 O2 Sat by Pulse 86 92 93 Oximetry 11/20/21 11/20/21 11/20/21 10:21 10:31 10:41 Temperature Pulse Rate 76 75 75 Pulse Rate [ Anterior Bilateral Throughout] Pulse Rate [ From Monitor] Pulse Rate [ Right Dorsalis Pedis] Respiratory 13 13 14 Rate Respiratory Rate [Anterior Bilateral Throughout] Blood Pressure 107/42 107/42 114/47 O2 Sat by Pulse 93 93 93 Oximetry 11/20/21 11/20/21 11/20/21 10:51 11:01 11:11 Temperature Pulse Rate 77 76 78 Pulse Rate [ Anterior Bilateral Throughout] Pulse Rate [ From Monitor] Pulse Rate [ Right Dorsalis Pedis] Respiratory 12 12 12 Rate Respiratory Rate [Anterior Bilateral Throughout] Blood Pressure 114/47 123/49 123/49 O2 Sat by Pulse 93 92 91 Oximetry 11/20/21 11/20/21 11/20/21 11:21 11:31 11:41 Temperature Pulse Rate 76 74 76 Pulse Rate [ Anterior Bilateral Throughout] Pulse Rate [ From Monitor] Pulse Rate [ Right Dorsalis Pedis] Respiratory 12 12 12 Rate Respiratory Rate [Anterior Bilateral Throughout] Blood Pressure 123/49 123/49 123/49 O2 Sat by Pulse 92 92 92 Oximetry 11/20/21 11/20/21 11/20/21 11:51 12:00 12:01 Temperature 99.7 F H Pulse Rate 75 77 74 Pulse Rate [ Anterior Bilateral Throughout] Pulse Rate [ 77 From Monitor] Pulse Rate [ 77 Right Dorsalis Pedis] Respiratory 14 14 14 Rate Respiratory Rate [Anterior Bilateral Throughout] Blood Pressure 123/49 123/49 O2 Sat by Pulse 93 92 93 Oximetry 11/20/21 11/20/21 11/20/21 12:11 12:21 12:31 Temperature Pulse Rate 76 78 78 Pulse Rate [ Anterior Bilateral Throughout] Pulse Rate [ From Monitor] Pulse Rate [ Right Dorsalis Pedis] Respiratory 14 14 14 Rate Respiratory Rate [Anterior Bilateral Throughout] Blood Pressure 156/92 156/92 156/92 O2 Sat by Pulse 93 93 94 Oximetry 11/20/21 11/20/21 11/20/21 12:35 12:41 12:51 Temperature Pulse Rate 78 76 84 Pulse Rate [ Anterior Bilateral Throughout] Pulse Rate [ From Monitor] Pulse Rate [ Right Dorsalis Pedis] Respiratory 15 14 Rate Respiratory Rate [Anterior Bilateral Throughout] Blood Pressure 156/92 156/92 O2 Sat by Pulse 94 94 91 Oximetry 11/20/21 11/20/21 11/20/21 13:01 13:11 13:21 Temperature Pulse Rate 85 80 78 Pulse Rate [ Anterior Bilateral Throughout] Pulse Rate [ From Monitor] Pulse Rate [ Right Dorsalis Pedis] Respiratory 14 14 14 Rate Respiratory Rate [Anterior Bilateral Throughout] Blood Pressure 156/92 156/92 156/92 O2 Sat by Pulse 92 92 94 Oximetry 11/20/21 11/20/21 11/20/21 13:31 13:41 13:51 Temperature Pulse Rate 77 75 76 Pulse Rate [ Anterior Bilateral Throughout] Pulse Rate [ From Monitor] Pulse Rate [ Right Dorsalis Pedis] Respiratory 14 14 14 Rate Respiratory Rate [Anterior Bilateral Throughout] Blood Pressure 123/48 123/48 123/48 O2 Sat by Pulse 94 95 95 Oximetry 11/20/21 11/20/21 11/20/21 14:01 14:11 14:21 Temperature Pulse Rate 75 82 94 H Pulse Rate [ Anterior Bilateral Throughout] Pulse Rate [ From Monitor] Pulse Rate [ Right Dorsalis Pedis] Respiratory 14 14 20 Rate Respiratory Rate [Anterior Bilateral Throughout] Blood Pressure 131/44 131/44 131/44 O2 Sat by Pulse 95 95 92 Oximetry 11/20/21 11/20/21 11/20/21 14:31 14:41 14:51 Temperature Pulse Rate 79 76 75 Pulse Rate [ Anterior Bilateral Throughout] Pulse Rate [ From Monitor] Pulse Rate [ Right Dorsalis Pedis] Respiratory 13 14 14 Rate Respiratory Rate [Anterior Bilateral Throughout] Blood Pressure 131/44 121/46 121/46 O2 Sat by Pulse 95 95 96 Oximetry 11/20/21 11/20/21 11/20/21 15:01 15:11 15:21 Temperature Pulse Rate 74 71 73 Pulse Rate [ Anterior Bilateral Throughout] Pulse Rate [ From Monitor] Pulse Rate [ Right Dorsalis Pedis] Respiratory 14 14 14 Rate Respiratory Rate [Anterior Bilateral Throughout] Blood Pressure 113/53 113/53 113/53 O2 Sat by Pulse 97 97 97 Oximetry 11/20/21 11/20/21 11/20/21 15:31 15:41 15:51 Temperature Pulse Rate 72 71 71 Pulse Rate [ Anterior Bilateral Throughout] Pulse Rate [ From Monitor] Pulse Rate [ Right Dorsalis Pedis] Respiratory 14 14 14 Rate Respiratory Rate [Anterior Bilateral Throughout] Blood Pressure 133/45 133/45 133/45 O2 Sat by Pulse 97 97 97 Oximetry 11/20/21 16:00 Temperature 98.7 F Pulse Rate Pulse Rate [ Anterior Bilateral Throughout] Pulse Rate [ From Monitor] Pulse Rate [ Right Dorsalis Pedis] Respiratory Rate Respiratory Rate [Anterior Bilateral Throughout] Blood Pressure O2 Sat by Pulse Oximetry Constitutional: no acute distress, other (elderly obese female with mildly increased respiratory effort at rest on MVS) Eyes: non-icteric ENT: oropharynx moist, other (ETT 24 cm Krish) Neck: supple, no lymphadenopathy, no JVD, other (large circumference) Effort: mildly labored Ascultation: Bilateral: diminished breath sounds, rhonchi Percussion: Bilateral: not dull Cardiovascular: regular rate and rhythm Gastrointestinal: normoactive bowel sounds, soft, non-tender, non-distended (protuberant) Integumentary: normal Extremities: no cyanosis, no edema, pulses normal, no ischemia or petechiae Neurologic: non-focal exam (grossly), pupils equal and round, CN II-XII normal, other (sedated) Psychiatric: other (agitated during sedation vacations) CBC and BMP: 11/21/21 04:44 11/21/21 04:44 ABG, PT/INR, D-dimer: ABG ABG pH 7.251 pH Units (7.350-7.450) L 11/20/21 11:07 ABG pCO2 70.3 mm Hg 11/20/21 11:07 ABG pO2 66.3 mm Hg (80.0-90.0) L 11/20/21 11:07 ABG O2 Saturation 91.8 % (95.0-99.0) L 11/20/21 11:07 PT/INR, D-dimer PT 12.9 Sec. (12.2-14.9) 11/18/21 00:19 INR 0.88 (0.87-1.13) 11/18/21 00:19 D-Dimer 464.80 ng/mlDDU (0-234) H 11/18/21 05:15 Abnormal lab findings: Abnormal Labs 11/18/21 11/18/21 11/18/21 00:01 00:19 00:19 WBC 15.6 H RBC 5.59 H Hgb 14.8 H Hct 49.8 H MCH 27 L MCHC RDW 16.9 H Lymph % (Auto) [place] % (Auto) Lymph # (Auto) [place] # (Auto) Seg Neutrophils % Lymphocytes % (Manual) 4.0 L Seg Neutrophils # Seg Neutrophils # Man 14.7 H Lymphocytes # (Manual) 0.6 L D-Dimer ABG pH ABG pO2 ABG HCO3 ABG O2 Saturation ABG Base Excess Oxyhemoglobin Sodium Potassium BUN Glucose 148 H POC Glucose 151 H Calcium Phosphorus Magnesium Lactate Dehydrogenase Urine WBC (Auto) Salicylates Acetaminophen 11/18/21 11/18/21 11/18/21 00:19 00:19 00:19 WBC RBC Hgb Hct MCH MCHC RDW Lymph % (Auto) [place] % (Auto) Lymph # (Auto) [place] # (Auto) Seg Neutrophils % Lymphocytes % (Manual) Seg Neutrophils # Seg Neutrophils # Man Lymphocytes # (Manual) D-Dimer ABG pH ABG pO2 ABG HCO3 ABG O2 Saturation ABG Base Excess Oxyhemoglobin Sodium Potassium BUN Glucose POC Glucose Calcium Phosphorus Magnesium 2.50 H Lactate Dehydrogenase Urine WBC (Auto) Salicylates < 0.3 L Acetaminophen 5.0 L 11/18/21 11/18/21 11/18/21 01:03 02:00 05:15 WBC RBC Hgb Hct MCH MCHC RDW Lymph % (Auto) [place] % (Auto) Lymph # (Auto) [place] # (Auto) Seg Neutrophils % Lymphocytes % (Manual) Seg Neutrophils # Seg Neutrophils # Man Lymphocytes # (Manual) D-Dimer 464.80 H ABG pH ABG pO2 ABG HCO3 35.8 H ABG O2 Saturation ABG Base Excess 7.8 H Oxyhemoglobin 91.9 L Sodium Potassium BUN Glucose POC Glucose Calcium Phosphorus Magnesium Lactate Dehydrogenase Urine WBC (Auto) 16.0 H Salicylates Acetaminophen 11/18/21 11/18/21 11/18/21 05:15 15:47 15:47 WBC 13.5 H RBC 5.60 H Hgb 14.9 H Hct 49.1 H MCH 27 L MCHC RDW 17.3 H Lymph % (Auto) 7.9 L [place] % (Auto) 10.1 H Lymph # (Auto) 1.1 L [place] # (Auto) 1.4 H Seg Neutrophils % 81.7 H Lymphocytes % (Manual) Seg Neutrophils # 11.0 H Seg Neutrophils # Man Lymphocytes # (Manual) D-Dimer ABG pH ABG pO2 ABG HCO3 ABG O2 Saturation ABG Base Excess Oxyhemoglobin Sodium Potassium BUN Glucose 138 H POC Glucose Calcium Phosphorus Magnesium Lactate Dehydrogenase 275 H Urine WBC (Auto) Salicylates Acetaminophen 11/18/21 11/18/21 11/19/21 18:45 23:33 04:58 WBC RBC Hgb Hct MCH MCHC RDW Lymph % (Auto) [place] % (Auto) Lymph # (Auto) [place] # (Auto) Seg Neutrophils % Lymphocytes % (Manual) Seg Neutrophils # Seg Neutrophils # Man Lymphocytes # (Manual) D-Dimer ABG pH ABG pO2 ABG HCO3 ABG O2 Saturation ABG Base Excess Oxyhemoglobin Sodium Potassium BUN Glucose 130 H POC Glucose 132 H 113 H Calcium Phosphorus Magnesium Lactate Dehydrogenase Urine WBC (Auto) Salicylates Acetaminophen 11/19/21 11/19/21 11/19/21 07:59 07:59 08:55 WBC 12.7 H RBC 5.29 H Hgb Hct 45.5 H MCH 26 L MCHC RDW 17.4 H Lymph % (Auto) 12.3 L [place] % (Auto) 9.6 H Lymph # (Auto) [place] # (Auto) 1.2 H Seg Neutrophils % 76.9 H Lymphocytes % (Manual) Seg Neutrophils # 9.7 H Seg Neutrophils # Man Lymphocytes # (Manual) D-Dimer ABG pH 7.518 H ABG pO2 77.6 L ABG HCO3 30.1 H ABG O2 Saturation ABG Base Excess 6.9 H Oxyhemoglobin Sodium Potassium 3.1 L D BUN Glucose 115 H POC Glucose Calcium 8.1 L Phosphorus Magnesium Lactate Dehydrogenase Urine WBC (Auto) Salicylates Acetaminophen 11/19/21 11/19/21 11/20/21 11:33 16:22 04:20 WBC 13.9 H RBC 5.44 H Hgb Hct 49.3 H MCH 26 L MCHC 29 L RDW 18.3 H Lymph % (Auto) [place] % (Auto) Lymph # (Auto) [place] # (Auto) Seg Neutrophils % Lymphocytes % (Manual) Seg Neutrophils # Seg Neutrophils # Man Lymphocytes # (Manual) D-Dimer ABG pH ABG pO2 ABG HCO3 ABG O2 Saturation ABG Base Excess Oxyhemoglobin Sodium Potassium BUN Glucose POC Glucose 119 H 112 H Calcium Phosphorus Magnesium Lactate Dehydrogenase Urine WBC (Auto) Salicylates Acetaminophen 11/20/21 11/20/21 11/20/21 04:20 11:07 12:02 WBC RBC Hgb Hct MCH MCHC RDW Lymph % (Auto) [place] % (Auto) Lymph # (Auto) [place] # (Auto) Seg Neutrophils % Lymphocytes % (Manual) Seg Neutrophils # Seg Neutrophils # Man Lymphocytes # (Manual) D-Dimer ABG pH 7.251 L ABG pO2 66.3 L ABG HCO3 30.2 H ABG O2 Saturation 91.8 L ABG Base Excess Oxyhemoglobin 89.4 L Sodium 147 H Potassium BUN 25 H Glucose POC Glucose 118 H Calcium Phosphorus 6.40 H Magnesium Lactate Dehydrogenase Urine WBC (Auto) Salicylates Acetaminophen Chest x-ray: image reviewed Allied health notes reviewed: nursing
[2021-11-20] MEDS: ENOXAPARIN 40 MG/0.4 ML INJ SUB-Q SCH (21:39)
--- NOTE | 2021-11-21 05:16 | XRay Report ---
CHEST 1 VIEW 11/21/2021 4:06 AM INDICATION / CLINICAL INFORMATION: follow up respiratory failure. COMPARISON: None available. FINDINGS: SUPPORT DEVICES: Unchanged. HEART / MEDIASTINUM: Stable. LUNGS / PLEURA: Redemonstrated airspace opacities. No pneumothorax. ADDITIONAL FINDINGS: No significant additional findings. IMPRESSION: 1. No significant change. Signer Name: Andre Robins DO Signed: 11/21/2021 5:11 AM Workstation Name: [id number]
[2021-11-21 05:23] LABS: Mean Corpuscular HGB Conc 29 % (30-34); Mean Corpuscular Volume 88 fl (79-97); Platelet Count 217 K/mm3 (140-440); Red Blood Count 5.08 M/mm3 (3.65-5.03); Red Cell Distribution Width 17.8 % (13.2-15.2)
[2021-11-21 05:24] LABS: Hematocrit 44.7 % (30.3-42.9); Hemoglobin 13.1 gm/dl (10.1-14.3)
[2021-11-21 05:39] LABS: Blood Urea Nitrogen 20 mg/dL (7-17); Calcium 8.7 mg/dL (8.4-10.2); Hemolysis Index 2
[2021-11-21 06:00] LABS: BUN/Creatinine Ratio 29
[2021-11-21] MEDS: INSULIN LISPRO 100 UNIT/ML SUB-Q SCH ×4 (06:35→18:34)
[2021-11-21] MEDS: ARFORMOTEROL 15 MCG/2 ML NEBU IH SCH ×2 (08:00→22:28)
[2021-11-21] MEDS: BUDESONIDE 0.5 MG/2 ML NEBU IH SCH ×2 (08:00→22:28)
[2021-11-21] MEDS: fentaNYL DRIP Premix 2,000 MCG/100 ML BAG IV SCH ×2 (09:49→21:49)
[2021-11-21] MEDS: FUROSEMIDE 20 MG/2 ML INJ IV SCH ×2 (09:52→21:35)
[2021-11-21] MEDS: FAMOTIDINE 20 MG TAB FEEDTUBE SCH ×2 (09:52→21:35)
[2021-11-21] MEDS: AZITHROMYCIN 250 MG TAB FEEDTUBE SCH (09:52)
[2021-11-21] MEDS: FREE WATER PO SCH ×4 (09:53→21:36)
[2021-11-21] MEDS: SENNOSIDES/DOCUSATE SODIUM 8.6/50 MG TAB FEEDTUBE SCH ×2 (10:51→21:35)
[2021-11-21 12:50] LABS: ABG Base Excess 8.1 mmol/L (-2.0-3.0); ABG HCO3 35.2 mmol/L (20.0-26.0); ABG Methemoglobin 0.5 % (0.0-1.5); ABG Oxygen Saturation 92.8 % (95.0-99.0); ABG PCO2 59.8 mm Hg; ABG PH 7.387 pH Units (7.350-7.450); ABG PO2 61.8 mm Hg (80.0-90.0)
--- NOTE | 2021-11-21 13:00 | Progress Note ---
Assessment and Plan Assessment and plan: This is a 81-year-old AA female with past medical history of CAD, CHF, pulmonary hypertension, COPD, and tobacco abuse admitted for acute hypoxemic respiratory failure 2/2 of bilateral pneumonia vs COPD exacerbation/pulmonary edema requiring intubation and ventilatory support. Hospital Course to Date: 11/18: Patient was seen and examined in the ED. Patient is intubated and sedated on propofol and versed gtt, RASS -3 to -4. Patient is in hypertensive emergency this am, SBP in the 240s, cardene gtt was initiated, maintain SBP less than 160. Leukocytosis noted, UA significant for UTI. Lactic, procal, and CRP are normal. Patient remains afebrile, continue empiric IV abx for now. Tracheal aspirate ordered, blood culture is pending. Continue to f/u on culture data. 11/19: Patient remains intubated and sedated. Patient did not tolerate sedation vacation this am, became tachycardic, hypertensive, with elevated RR and SPO2 in the low 80s. Sedation back on, continue to wean sedation as tolerated for RASS goal of 0 to -2. Pateimt is off cardene gtt, PRN hydralazine for SPO2 above 160. Low K repleted, repeat labs in the am. 11/20: Remains on the vent and sedated, RASS -3. Plan to wean down on sedation, might need to add Seroquel if patient is not tolerating sedation. Hypernatremia and increased BUN/Cr. this am, patient is on lasix BID. Will discuss with [facility] to possibly hold or decreased IV lasix for now, FWF added for high Na. Urinary retention post briggs removal, bladder scan and straight cath per protocol. 11/21: Patient remains on the vent, unable to wean sedation at this time, Seroquel added. Titrate sedation as tolerated for RASS of 0 to -2. Briggs was r einserted overnight for urinary retention, kidney function is stable. Assessment and Plan #Neuro: Agitation - Patient intubated and sedated on propofol and fentanyl gtts RASS -2 - Patient did not tolerate sedation wean - Seroquel BID added - Continue sedation for RASS goal of 0 to -2 - Close monitoring of QTc, EKG in the am - Daily SAT and SBT per CCM - Avoid benzodiazepine to reduce the possibility of delirium - PRN analgesia for CPOT greater than 3 - Maintenance of sleep-wake cycle #CHF and Pulmonary HTN #Hypertensive Emergency-resolved #H/o CAD - Patient SBP as in the 240s in the ED - S/p cardene gtt - 12/2020 Echo with a EF of 60- 65% - BMP 867 - Continue IV lasix per CCM - Continue blood pressure monitor per protocol - PRN hydralazine for SBP greater than 160 #Acute Hypoxemic Respiratory Failure #COPD Exacerbation #Bilateral Pneumonia #Pulmonary Edema - Chest x-ray shows bilateral pulmonary opacities possibly representing edema/atelectasis or pneumonia. - CT of the chest shows evidence of pulmonary hypertension with dense consolidation along the left lower lobe that is concerning for pneumonia. Mild interstitial pulmonary edema. - Patient intubated in the ED on 11/18 - Vent Setting: A/C- 60%,6,14,500 - COVID swab neg. - AM ABG noted - CCM consulted, appreciate recommendations - Continue Nebs per CCM - Continue IV Lasix and IV abx per CCM - VAP bundle addressed - Aspiration precaution HOB above 30 - Daily SBT and SAT trials as tolerated - Daily ABG and CXR - Continue SPO2 monitoring for SPO2 goal above 92% #GI:TF - Eneteral nutrition initiated - Nutrition on consult - Continue PPI- Pepcid - Continue BR #Urinary Retention #Hypokalemia-resolved - Retention since briggs removal, bladder scan and straight cath per protocol - Patient is on lasix - Briggs reinserted on 11/20 - Strict intake and output - Monitor and replace electrolytes as needed - Trend BMP - Avoid nephrotoxic medications; Renally dose medications #Elevated D-Dimer - BLE DVT negative - Per [facility] no indication for CTA at this time - Lovenox added for DVT proph. - SCDs to bilateral lower extremities while in bed #ID:Bilateral Pneumonia #Urinary tract Infection #Leukocytosis - Imagings shown bilateral opacities representing pulmonary edema vs pneumonia - WBCs as high as 15.6, downtrending - CRP and procal is normal - COVID swab neg - Urinalysis was significant for UTI. - B. culture neg as of date - Sputum culture pending - Patient is afebrile - Continue empiric IV abx for now - Continue to F/U on B.cult - Daily CBC monitor - Consider ID consult if febrile or/and if leukocytosis persist #Endo:Glycemic Control - BG check Q6hrs while on TF - SSI Q6hrs - Avoid Hypoglycemia The high probability of a clinically significant, sudden or life threatening deterioration of the [Neuro, Resp, CV] system(s) required my full and direct attention, intervention and personal management. The aggregate critical care time was [60] minutes. This time is in addition to time spent performing reported procedures but includes the following: [x] Data Review and interpretation [x] Patient assessment and monitoring of vital signs [x] Documentation [x] Medication orders and management Disposition Plan: ICU Total Time Spent with Patient (Minutes): 60 History Interval history: Patient seen and examined at the bedside. Patient is intubated and sedated, on propofol and fentanyl RASS -2, opens eyes spontaneously and move all extremities but does not follow commands. Overnight, patient has not been able to tolerate sedation wean due to increased agitation, propofol increased to achieved RASS goal. Briggs was reinserted overnight for retention Hospitalist Physical - Constitutional Vitals: Temp Pulse Resp BP Pulse Ox 99.9 F H 85 14 140/56 94 11/21/21 12:00 11/21/21 11:21 11/21/21 11:21 11/21/21 11:21 11/21/21 11:21 General appearance: Present: no acute distress, other (Intubated and Sedated) - EENT Eyes: Present: PERRL - Respiratory Respiratory effort: normal Respiratory: bilateral: rhonchi - Cardiovascular Rhythm: regular Heart Sounds: Present: S1 & S2 - Extremities Extremities: no ischemia, pulses intact, pulses symmetrical Extremity abnormal: edema - Peripheral Assessment Generalized Edema Type: Non-pitting Edema Degree: 1+ Capillary Refill: < 3 seconds Skin Temperature: Warm Peripheral Pulses: within normal limits - Abdominal General gastrointestinal: soft, non-tender, normal bowel sounds - Integumentary Integumentary: Present: warm, dry - Psychiatric Psychiatric: other (Intubated and Sedated) - Neurologic Neurologic: moves all extremities, other (Intubated and Sedated, opens eyes spontaneously, but does not follow commands) - Allied Health Allied health notes reviewed: nursing HEART Score - HEART Score Troponin: Troponin T < 0.010 ng/mL (0.00-0.029) 11/18/21 03:25 Results - Labs CBC & Chem 7: 11/21/21 04:44 11/21/21 04:44 Labs: Laboratory Last Values WBC 14.0 K/mm3 (4.5-11.0) H 11/21/21 04:44 RBC 5.08 M/mm3 (3.65-5.03) H 11/21/21 04:44 Hgb 13.1 gm/dl (10.1-14.3) 11/21/21 04:44 Hct 44.7 % (30.3-42.9) H 11/21/21 04:44 MCV 88 fl (79-97) 11/21/21 04:44 MCH 26 pg (28-32) L 11/21/21 04:44 MCHC 29 % (30-34) L 11/21/21 04:44 RDW 17.8 % (13.2-15.2) H 11/21/21 04:44 Plt Count 217 K/mm3 (140-440) 11/21/21 04:44 Lymph % (Auto) 12.3 % (13.4-35.0) L 11/19/21 07:59 [place] % (Auto) 9.6 % (0.0-7.3) H 11/19/21 07:59 Eos % (Auto) 0.7 % (0.0-4.3) 11/19/21 07:59 Baso % (Auto) 0.5 % (0.0-1.8) 11/19/21 07:59 Lymph # (Auto) 1.6 K/mm3 (1.2-5.4) 11/19/21 07:59 [place] # (Auto) 1.2 K/mm3 (0.0-0.8) H 11/19/21 07:59 Eos # (Auto) 0.1 K/mm3 (0.0-0.4) 11/19/21 07:59 Baso # (Auto) 0.1 K/mm3 (0.0-0.1) 11/19/21 07:59 Add Manual Diff Complete 11/18/21 00:19 Total Counted 100 11/18/21 00:19 Seg Neutrophils % 76.9 % (40.0-70.0) H 11/19/21 07:59 Lymphocytes % (Manual) 4.0 % (13.4-35.0) L 11/18/21 00:19 Monocytes % (Manual) 2.0 % (0.0-7.3) 11/18/21 00:19 Nucleated RBC % Not Reportable 11/18/21 00:19 Seg Neutrophils # 9.7 K/mm3 (1.8-7.7) H 11/19/21 07:59 Seg Neutrophils # Man 14.7 K/mm3 (1.8-7.7) H 11/18/21 00:19 Band Neutrophils # 0.0 K/mm3 11/18/21 00:19 Lymphocytes # (Manual) 0.6 K/mm3 (1.2-5.4) L 11/18/21 00:19 Abs React Lymphs (Man) 0.0 K/mm3 11/18/21 00:19 Monocytes # (Manual) 0.3 K/mm3 (0.0-0.8) 11/18/21 00:19 Eosinophils # (Manual) 0.0 K/mm3 (0.0-0.4) 11/18/21 00:19 Basophils # (Manual) 0.0 K/mm3 (0.0-0.1) 11/18/21 00:19 Metamyelocytes # 0.0 K/mm3 11/18/21 00:19 Myelocytes # 0.0 K/mm3 11/18/21 00:19 Promyelocytes # 0.0 K/mm3 11/18/21 00:19 Blast Cells # 0.0 K/mm3 11/18/21 00:19 WBC Morphology Not Reportable 11/18/21 00:19 Hypersegmented Neuts Not Reportable 11/18/21 00:19 Hyposegmented Neuts Not Reportable 11/18/21 00:19 Hypogranular Neuts Not Reportable 11/18/21 00:19 Smudge Cells Not Reportable 11/18/21 00:19 Toxic Granulation Not Reportable 11/18/21 00:19 Toxic Vacuolation Not Reportable 11/18/21 00:19 Dohle Bodies Not Reportable 11/18/21 00:19 Pelger-Huet Anomaly Not Reportable 11/18/21 00:19 Luis Rods Not Reportable 11/18/21 00:19 Platelet Estimate Consistent w auto 11/18/21 00:19 Clumped Platelets Not Reportable 11/18/21 00:19 Plt Clumps, EDTA Not Reportable 11/18/21 00:19 Large Platelets Not Reportable 11/18/21 00:19 Giant Platelets Not Reportable 11/18/21 00:19 Platelet Satelliting Not Reportable 11/18/21 00:19 Plt Morphology Comment Not Reportable 11/18/21 00:19 RBC Morphology Not Reportable 11/18/21 00:19 Dimorphic RBCs Not Reportable 11/18/21 00:19 Polychromasia Not Reportable 11/18/21 00:19 Hypochromasia Not Reportable 11/18/21 00:19 Poikilocytosis Not Reportable 11/18/21 00:19 Anisocytosis 1+ 11/18/21 00:19 Microcytosis Not Reportable 11/18/21 00:19 Macrocytosis Few 11/18/21 00:19 Spherocytes Not Reportable 11/18/21 00:19 Pappenheimer Bodies Not Reportable 11/18/21 00:19 Sickle Cells Not Reportable 11/18/21 00:19 Target Cells Not Reportable 11/18/21 00:19 Tear Drop Cells Not Reportable 11/18/21 00:19 Ovalocytes Not Reportable 11/18/21 00:19 Helmet Cells Not Reportable 11/18/21 00:19 Connelly-Misenheimer Bodies Not Reportable 11/18/21 00:19 [place] Rings Not Reportable 11/18/21 00:19 [place] Cells Not Reportable 11/18/21 00:19 Bite Cells Not Reportable 11/18/21 00:19 Crenated Cell Not Reportable 11/18/21 00:19 Elliptocytes Not Reportable 11/18/21 00:19 Acanthocytes (Spur) Not Reportable 11/18/21 00:19 Rouleaux Not Reportable 11/18/21 00:19 Hemoglobin C Crystals Not Reportable 11/18/21 00:19 Schistocytes Not Reportable 11/18/21 00:19 Malaria parasites Not Reportable 11/18/21 00:19 Shahriar Bodies Not Reportable 11/18/21 00:19 Hem Pathologist Commnt No 11/18/21 00:19 PT 12.9 Sec. (12.2-14.9) 11/18/21 00:19 INR 0.88 (0.87-1.13) 11/18/21 00:19 APTT 29.2 Sec. (24.2-36.6) 11/18/21 00:19 D-Dimer 464.80 ng/mlDDU (0-234) H 11/18/21 05:15 ABG pH 7.387 pH Units (7.350-7.450) 11/21/21 11:50 ABG pCO2 59.8 mm Hg 11/21/21 11:50 ABG pO2 61.8 mm Hg (80.0-90.0) L 11/21/21 11:50 ABG HCO3 35.2 mmol/L (20.0-26.0) H 11/21/21 11:50 ABG O2 Saturation 92.8 % (95.0-99.0) L 11/21/21 11:50 ABG O2 Content 17.9 (0.0-44) 11/21/21 11:50 ABG Base Excess 8.1 mmol/L (-2.0-3.0) H 11/21/21 11:50 ABG Hemoglobin 14.1 gm/dl (12.0-16.0) 11/21/21 11:50 ABG Carboxyhemoglobin 1.9 % (0.0-5.0) 11/21/21 11:50 ABG Methemoglobin 0.5 % (0.0-1.5) 11/21/21 11:50 Oxyhemoglobin 90.6 % (95.0-99.0) L 11/21/21 11:50 FiO2 60 % 11/21/21 11:50 Sodium 145 mmol/L (137-145) 11/21/21 04:44 Potassium 3.7 mmol/L (3.6-5.0) 11/21/21 04:44 Chloride 104.5 mmol/L (98-107) 11/21/21 04:44 Carbon Dioxide 30 mmol/L (22-30) 11/21/21 04:44 Anion Gap 14 mmol/L 11/21/21 04:44 BUN 20 mg/dL (7-17) H 11/21/21 04:44 Creatinine 0.7 mg/dL (0.6-1.2) 11/21/21 04:44 Estimated GFR > 60 ml/min 11/21/21 04:44 BUN/Creatinine Ratio 29 % 11/21/21 04:44 Glucose 157 mg/dL (65-100) H 11/21/21 04:44 POC Glucose 119 mg/dL (70-105) H 11/21/21 11:45 Hemoglobin A1c 5.9 % (4-6) 11/19/21 07:59 Lactic Acid 1.40 mmol/L (0.7-2.0) 11/18/21 00:19 Calcium 8.7 mg/dL (8.4-10.2) 11/21/21 04:44 Phosphorus 6.40 mg/dL (2.5-4.5) H 11/20/21 04:20 Magnesium 2.10 mg/dL (1.7-2.3) 11/20/21 04:20 Total Bilirubin 0.40 mg/dL (0.1-1.2) 11/18/21 00:19 Direct Bilirubin < 0.2 mg/dL (0-0.2) 11/18/21 00:19 Indirect Bilirubin 0.2 mg/dL 11/18/21 00:19 AST 22 units/L (5-40) 11/18/21 00:19 ALT 25 units/L (7-56) 11/18/21 00:19 Alkaline Phosphatase 99 units/L (35-129) 11/18/21 00:19 Ammonia 54.0 umol/L (25-60) 11/18/21 00:19 Lactate Dehydrogenase 275 units/L (91-180) H 11/18/21 05:15 Troponin T < 0.010 ng/mL (0.00-0.029) 11/18/21 03:25 C-Reactive Protein 0.70 mg/dL (0.00-1.30) 11/18/21 15:47 NT-Pro-B Natriuret Pep 867.7 pg/mL (0-900) 11/18/21 00:19 Total Protein 7.4 g/dL (6.3-8.2) 11/18/21 00:19 Albumin 4.0 g/dL (3.9-5) 11/18/21 00:19 Albumin/Globulin Ratio 1.2 % 11/18/21 00:19 Lipase 13 units/L (13-60) 11/18/21 00:19 Procalcitonin 0.12 ng/mL (<0.15) 11/18/21 05:15 Urine Color Yellow (Yellow) 11/18/21 01:03 Urine Turbidity Clear (Clear) 11/18/21 01:03 Urine pH 5.0 (5.0-7.0) 11/18/21 01:03 Ur Specific [place] 1.009 (1.003-1.030) 11/18/21 01:03 Urine Protein 100 mg/dl mg/dL (Negative) 11/18/21 01:03 Urine Glucose (UA) Neg mg/dL (Negative) 11/18/21 01:03 Urine Ketones Neg mg/dL (Negative) 11/18/21 01:03 Urine Blood Sm (Negative) 11/18/21 01:03 Urine Nitrite Neg (Negative) 11/18/21 01:03 Urine Bilirubin Neg (Negative) 11/18/21 01:03 Urine Urobilinogen < 2.0 mg/dL (<2.0) 11/18/21 01:03 Ur Leukocyte Esterase Tr (Negative) 11/18/21 01:03 Urine WBC (Auto) 16.0 /HPF (0.0-6.0) H 11/18/21 01:03 Urine RBC (Auto) 3.0 /HPF (0.0-6.0) 11/18/21 01:03 U Epithel Cells (Auto) 1.0 /HPF (0-13.0) 11/18/21 01:03 Hyaline Casts 3 /LPF 11/18/21 01:03 Urine Mucus Few /HPF 11/18/21 01:03 Salicylates < 0.3 mg/dL (2.8-20.0) L 11/18/21 00:19 Urine Opiates Screen Negative 11/18/21 01:03 Urine Methadone Screen Negative 11/18/21 01:03 Acetaminophen 5.0 ug/mL (10.0-30.0) L 11/18/21 00:19 Ur Barbiturates Screen Negative 11/18/21 01:03 Ur Phencyclidine Scrn Negative 11/18/21 01:03 Ur Amphetamines Screen Negative 11/18/21 01:03 U Benzodiazepines Scrn Negative 11/18/21 01:03 Urine Cocaine Screen Negative 11/18/21 01:03 U Marijuana (THC) Screen Negative 11/18/21 01:03 Drugs of Abuse Note Disclamer 11/18/21 01:03 Plasma/Serum Alcohol < 0.01 % (0-0.07) 11/18/21 00:19 Coronavirus (PCR) Negative (Negative) 11/18/21 Unknown Microbiology: Microbiology 11/18/21 01:03 Urine,Clean Catch Urine Culture - Final 11/18/21 00:19 Peripheral/Venous Blood Culture - Preliminary NO GROWTH AFTER 72 HOURS 11/18/21 00:19 Peripheral/Venous Blood Culture - Preliminary NO GROWTH AFTER 72 HOURS 11/19/21 12:46 Tracheal Aspirate Sputum Culture - Preliminary Briggs/IV: Voiding Method Indwelling Catheter Active Medications - Current Medications Current Medications: Generic Name Dose Route Start Last Admin Trade Name Freq PRN Reason Stop Dose Admin Acetaminophen 650 mg 11/18/21 03:10 Acetaminophen 650 Mg Rect Supp WV Q6H PRN Pain MILD(1-3)/Fever >100.5/MONTIEL Lipase/Protease/Amylase 1 each 11/18/21 16:10 Lipase 10,500/Protease 25,000/Amylase 43,750 (Units) Dr Cross FEEDTUBE PRN PRN For Clogged Feeding Tube Arformoterol Tartrate 15 mcg 11/18/21 20:00 11/21/21 08:00 Arformoterol 15 Mcg/2 Ml Nebu IH 15 mcg Q12HRT PAULINA Administration Azithromycin 500 mg 11/21/21 10:00 11/21/21 09:52 Azithromycin 250 Mg Tab FEEDTUBE 11/22/21 10:01 500 mg QDAY PAULINA Administration Protocol Budesonide 0.5 mg 11/18/21 20:00 11/21/21 08:00 Budesonide 0.5 Mg/2 Ml Nebu IH 0.5 mg Q12HRT PAULINA Administration Dextrose 50 ml 11/18/21 10:40 Dextrose 50% In Water (25gm) 50 Ml Syringe IV Q30MIN PRN Hypoglycemia Protocol Enoxaparin Sodium 40 mg 11/19/21 22:00 11/20/21 21:39 Enoxaparin 40 Mg/0.4 Ml Inj SUB-Q 40 mg QDAY@2200 PAULINA Administration Protocol Famotidine 20 mg 11/20/21 10:00 11/21/21 09:52 Famotidine 20 Mg Tab FEEDTUBE 20 mg BID PAULINA Administration Fentanyl 50 mcg 11/18/21 13:10 Fentanyl 100 Mcg/2 Ml Inj IV Q10MIN PRN ANALGESIA Furosemide 20 mg 11/18/21 16:00 11/21/21 09:52 Furosemide 20 Mg/2 Ml Inj IV 20 mg BID PAULINA Administration Hydralazine HCl 10 mg 11/18/21 10:44 Hydralazine 20 Mg/1 Ml Inj IV Q4HR PRN Hypertension Hydrophilic Ointment 1 applic 11/18/21 15:26 Lip Therapy Vaseline TP Q2HR PRN Dry Lips Propofol 1,000 mg in 100 mls @ 2.55 mls/hr 11/18/21 02:00 11/21/21 09:47 Diprivan 10 Mg/Ml IV 20 mcg/kg/min TITR PAULINA 10.2 mls/hr Administration Protocol 5 MCG/KG/MIN Ceftriaxone Sodium 2 gm in 100 mls @ 200 mls/hr 11/18/21 04:00 11/20/21 04:03 Rocephin/Ns 2 Gm/100 Ml IV 11/22/21 04:29 200 mls/hr Q24H PAULINA Administration Protocol Nicardipine HCl 50 mg/ Sodium 250 mls @ 25 mls/hr 11/18/21 12:00 11/18/21 23:45 Chloride IV Infused TITR PAULINA Titration Protocol 5 MG/HR Fentanyl Citrate 2,000 mcg in 100 mls @ 4.25 mls/hr 11/18/21 14:00 11/21/21 09:49 Fentanyl Drip Premix IV 2 mcg/kg/hr TITR PAULINA 8.5 mls/hr Administration Protocol 1 MCG/KG/HR Insulin Human Lispro 0 unit 11/18/21 12:00 11/21/21 12:50 Insulin Lispro 100 Unit/Ml SUB-Q Not Given Q6HR [facility] Protocol Magnesium Hydroxide 30 ml 11/18/21 03:10 Magnesium Hydroxide (Mom) Oral Liqd Udc PO Q4H PRN Constipation Multi-Ingred Cream/Lotion/Oil/Oint 1 applic 11/18/21 15:26 Mineral Oil/Petrolatum, White Ophth Oint 3.5 Gm OU Q4HR PRN Dry Eye(s) Ondansetron HCl 4 mg 11/18/21 03:10 Ondansetron 4 Mg/2 Ml Inj IV Q8H PRN Nausea And Vomiting Senna/Docusate Sodium 1 tab 11/18/21 22:00 11/21/21 10:51 Sennosides/Docusate Sodium 8.6/50 Mg Tab FEEDTUBE Not Given BID PAULINA Simple Syrup 15 ml 11/18/21 16:10 Simple Syrup 15 Ml FEEDTUBE PRN PRN Hypoglycemia Simple Syrup 30 ml 11/18/21 16:10 Simple Syrup 15 Ml FEEDTUBE PRN PRN Hypoglycemia Sodium Bicarbonate 325 mg 11/18/21 16:10 Sodium Bicarbonate 325 Mg Tab FEEDTUBE PRN PRN For Clogged Feeding Tube Tamsulosin HCl 0.4 mg 11/20/21 15:00 11/20/21 15:58 Tamsulosin 0.4 Mg Cap PO 0.4 mg QDAY PAULINA Administration Nutrition/Malnutrition Assess - Dietary Evaluation Nutrition/Malnutrition Findings: Nutrition Notes Start: 11/18/21 10:45 Freq: Status: Active Protocol: Document 11/21/21 10:05 (Rec: 11/21/21 10:10 [email or web address]) Nutrition Notes Initial or Follow up Reassessment Current Diagnosis COPD,Coronary Artery Disease, Hypertension,Heart Failure, Respiratory Failure, Hyperlipidemia Other Pertinent Diagnosis AMS, UTI, COPD exacerbation Current Diet Promote @ 65 ml/hr (goal rate) Labs/Tests BUN 20 BG 157 Pertinent Medications Lasix Propofol at 10.2 ml/hr ( provides 269 kcal) Height 5 ft 8 in Weight 81.6 kg [place] Body Weight (kg) 63.63 BMI 27.3 Weight change and time frame Wt loss noted, unsure of accuracy, continue to monitor trends Weight Status Overweight Subjective/Other Information F/u for TF tolerance. Nurse reports pt tolerating TF. Percent of energy/protein needs met: 95%/96% Burn Absent Trauma Absent GI Symptoms None Current % PO Negligible Minimum of two criteria No #1 Nutrition Diagnosis Inadequate oral intake Diagnosis Progress(for reassessment Continues documentation) Is patient on ventilator? Yes Is Patient Ambulatory and/or Out of Bed No REE-([facility]-confined to bed) 1614.000 Calculation Used for Recommendations [facility] Additional Notes Pro needs 1.2-2g/k-170g/ day Fluid needs 1ml/kcal Nutrition Intervention Change Diet Order: Continue Nutrition Support: Promote at 65 ml/hr. Flush 60 ml q4h. Kcal 1,570 Protein (gm) 98 Carbohydrates (gm) 204 Fat (gm) 41 Fluid (mL) 1,317 Goal #1 Meet at least 75% of energy/ protein needs via Anticipated Discharge Needs: Unable to identify at this time Follow-Up By: 11/24/21 Additional Comments F/u: TF tolerance
--- NOTE | 2021-11-21 15:06 | Progress Note ---
Assessment and Plan Acute exacerbation of chronic obstructive lung disease Acute hypoxemic respiratory failure Acute congestive heart failure exacerbation (? Flash Pulmonary edema) Community-acquired pneumonia Leukocytosis History of coronary artery disease Gastroesophageal reflux disease Arthritis Hyperlipidemia Obesity Elevated D-dimers Acute toxic metabolic encephalopathy Urinary tract infection Likely pulmonary hypertension Hypertensive emergency - continue diuresis while monitoring electrolytes - 2D ECHO ordered (consider cardiology evaluation) - reduced FiO2 to 40% - repeat ABG at 9pm - tentatively SBT's from tomorrow - continue care as below otherwise; - Daily SAT and SBT assessment as tolerated - continue to wean supplemental oxygen for target O2 sat's > 90% acutely - VAP bundle addressed - continue lung protective strategies - continue bronchodilators with pulmonary hygiene per RT - wean per pulmonary driven protocols otherwise - avoid nephrotoxins, renally dose all medications - continue accuchecks with glycemic control per SSI (While critically ill target blood glucose of 140-180 mg/dL; avoid hypoglycemia) - sedation prn for target RASS 0 to -1 - continue to avoid benzodiazepine's, reduce the possibility of delirium - completed AB's per ID rec's - prn analgesia per CPOT score - Maintenance of sleep-wake cycle, avoid delirium - continue enteral nutritional support at goal rate as tolerated - G.I. & VTE prophylaxis - PT/OT/ROM exercises - continue mobility protocols for pressure ulcer prophylaxis - Monitor hemodynamics closely - continue other care per attending / other consultants - discharge planning ongoing concurrently COVID SPECIFIC INTERVENTIONS: - COVID-19 test negative .... Re-evaluate in am & prn CONDITION: CRITICAL PROGNOSIS: GUARDED CODE STATUS: FULL CODE The high probability of a clinically significant, sudden or life-threatening deterioration of the [respiratory, cardiovascular & neurologic] system(s) required my full and direct attention, intervention and personal management. The aggregate critical care time was [32] minutes without overlap. Time includes spent on; [x] Data Review and interpretation [x] Patient assessment and monitoring of vital signs [x] Documentation [x] Medication orders and management Subjective Date of service: 11/21/21 Principal diagnosis: AE-COPD; AHRF; CHF (? new onset); CAP; CAD; Obesity; HTNsive Emergency Interval history: Patient is seen today for: AE-COPD; Acute hypoxemic respiratory failure; CHF (? new onset); CAP; CAD; Obesity; HTNsive Emergency Seen and examined at bedside; 24hour events reviewed; nursing and respiratory care staff consulted; no adverse overnight events reported to me; remains on MVS; remains agitated during SAT's; FiO2 at 60% still with minimal room to wean; ventilation is better Objective Vital Signs - 12hr 11/21/21 11/21/21 11/21/21 03:11 03:21 03:31 Temperature Pulse Rate 75 79 79 Pulse Rate [ Anterior Bilateral Throughout] Pulse Rate [ From Monitor] Respiratory 14 14 14 Rate Respiratory Rate [Anterior Bilateral Throughout] Blood Pressure 112/52 112/52 112/52 O2 Sat by Pulse 97 97 97 Oximetry 11/21/21 11/21/21 11/21/21 03:41 03:51 04:00 Temperature 97.2 F L Pulse Rate 81 81 78 Pulse Rate [ Anterior Bilateral Throughout] Pulse Rate [ 78 From Monitor] Respiratory 14 14 14 Rate Respiratory Rate [Anterior Bilateral Throughout] Blood Pressure 112/52 112/52 O2 Sat by Pulse 97 97 98 Oximetry 11/21/21 11/21/21 11/21/21 04:01 04:11 04:21 Temperature Pulse Rate 85 88 81 Pulse Rate [ Anterior Bilateral Throughout] Pulse Rate [ From Monitor] Respiratory 14 14 14 Rate Respiratory Rate [Anterior Bilateral Throughout] Blood Pressure 151/54 151/54 151/54 O2 Sat by Pulse 95 94 95 Oximetry 11/21/21 11/21/21 11/21/21 04:31 04:41 04:48 Temperature Pulse Rate 82 78 82 Pulse Rate [ Anterior Bilateral Throughout] Pulse Rate [ From Monitor] Respiratory 14 14 Rate Respiratory Rate [Anterior Bilateral Throughout] Blood Pressure 151/54 136/50 112/52 O2 Sat by Pulse 96 96 97 Oximetry 11/21/21 11/21/21 11/21/21 04:51 05:01 05:11 Temperature Pulse Rate 79 78 78 Pulse Rate [ Anterior Bilateral Throughout] Pulse Rate [ From Monitor] Respiratory 14 14 14 Rate Respiratory Rate [Anterior Bilateral Throughout] Blood Pressure 136/50 136/50 120/46 O2 Sat by Pulse 96 96 96 Oximetry 11/21/21 11/21/21 11/21/21 05:21 05:31 05:41 Temperature Pulse Rate 76 76 74 Pulse Rate [ Anterior Bilateral Throughout] Pulse Rate [ From Monitor] Respiratory 14 14 14 Rate Respiratory Rate [Anterior Bilateral Throughout] Blood Pressure 120/46 126/41 126/41 O2 Sat by Pulse 96 97 97 Oximetry 11/21/21 11/21/21 11/21/21 05:51 06:01 06:11 Temperature Pulse Rate 75 78 83 Pulse Rate [ Anterior Bilateral Throughout] Pulse Rate [ From Monitor] Respiratory 14 14 14 Rate Respiratory Rate [Anterior Bilateral Throughout] Blood Pressure 126/41 126/41 126/41 O2 Sat by Pulse 98 97 97 Oximetry 11/21/21 11/21/21 11/21/21 06:21 06:31 06:41 Temperature Pulse Rate 113 H 91 H 95 H Pulse Rate [ Anterior Bilateral Throughout] Pulse Rate [ From Monitor] Respiratory 19 14 14 Rate Respiratory Rate [Anterior Bilateral Throughout] Blood Pressure 126/41 172/59 172/59 O2 Sat by Pulse 93 95 90 Oximetry 11/21/21 11/21/21 11/21/21 06:51 07:01 07:11 Temperature Pulse Rate 93 H 89 84 Pulse Rate [ Anterior Bilateral Throughout] Pulse Rate [ From Monitor] Respiratory 14 14 14 Rate Respiratory Rate [Anterior Bilateral Throughout] Blood Pressure 172/59 172/59 172/59 O2 Sat by Pulse 90 90 93 Oximetry 11/21/21 11/21/21 11/21/21 07:21 07:31 07:41 Temperature Pulse Rate 81 78 81 Pulse Rate [ Anterior Bilateral Throughout] Pulse Rate [ From Monitor] Respiratory 14 14 14 Rate Respiratory Rate [Anterior Bilateral Throughout] Blood Pressure 172/59 172/59 125/47 O2 Sat by Pulse 92 92 91 Oximetry 11/21/21 11/21/21 11/21/21 07:51 08:00 08:01 Temperature 99.3 F Pulse Rate 78 75 77 Pulse Rate [ 74 Anterior Bilateral Throughout] Pulse Rate [ From Monitor] Respiratory 14 14 Rate Respiratory 14 Rate [Anterior Bilateral Throughout] Blood Pressure 125/47 116/50 129/47 O2 Sat by Pulse 92 95 93 Oximetry 11/21/21 11/21/21 11/21/21 08:11 08:20 08:21 Temperature Pulse Rate 78 77 Pulse Rate [ Anterior Bilateral Throughout] Pulse Rate [ From Monitor] Respiratory 14 14 14 Rate Respiratory Rate [Anterior Bilateral Throughout] Blood Pressure 129/47 129/47 O2 Sat by Pulse 93 94 93 Oximetry 11/21/21 11/21/21 11/21/21 08:31 08:41 08:51 Temperature Pulse Rate 76 77 78 Pulse Rate [ Anterior Bilateral Throughout] Pulse Rate [ From Monitor] Respiratory 14 14 14 Rate Respiratory Rate [Anterior Bilateral Throughout] Blood Pressure 125/44 125/44 125/44 O2 Sat by Pulse 94 93 94 Oximetry 11/21/21 11/21/21 11/21/21 09:01 09:11 09:21 Temperature Pulse Rate 77 75 74 Pulse Rate [ Anterior Bilateral Throughout] Pulse Rate [ From Monitor] Respiratory 14 14 14 Rate Respiratory Rate [Anterior Bilateral Throughout] Blood Pressure 116/50 116/50 116/50 O2 Sat by Pulse 94 95 94 Oximetry 11/21/21 11/21/21 11/21/21 09:31 09:41 09:51 Temperature Pulse Rate 74 73 72 Pulse Rate [ Anterior Bilateral Throughout] Pulse Rate [ From Monitor] Respiratory 14 14 14 Rate Respiratory Rate [Anterior Bilateral Throughout] Blood Pressure 124/55 124/55 124/55 O2 Sat by Pulse 97 98 98 Oximetry 11/21/21 11/21/21 11/21/21 10:01 10:11 10:21 Temperature Pulse Rate 71 78 77 Pulse Rate [ Anterior Bilateral Throughout] Pulse Rate [ From Monitor] Respiratory 14 14 14 Rate Respiratory Rate [Anterior Bilateral Throughout] Blood Pressure 124/55 150/60 150/60 O2 Sat by Pulse 98 97 96 Oximetry 11/21/21 11/21/21 11/21/21 10:31 10:41 10:51 Temperature Pulse Rate 79 77 80 Pulse Rate [ Anterior Bilateral Throughout] Pulse Rate [ From Monitor] Respiratory 14 14 14 Rate Respiratory Rate [Anterior Bilateral Throughout] Blood Pressure 150/60 135/60 135/60 O2 Sat by Pulse 95 95 94 Oximetry 11/21/21 11/21/21 11/21/21 11:01 11:11 11:21 Temperature Pulse Rate 80 81 85 Pulse Rate [ Anterior Bilateral Throughout] Pulse Rate [ From Monitor] Respiratory 14 14 14 Rate Respiratory Rate [Anterior Bilateral Throughout] Blood Pressure 140/56 140/56 140/56 O2 Sat by Pulse 95 94 94 Oximetry 11/21/21 11/21/21 11/21/21 11:31 11:40 11:51 Temperature Pulse Rate 80 81 78 Pulse Rate [ Anterior Bilateral Throughout] Pulse Rate [ From Monitor] Respiratory 14 14 14 Rate Respiratory Rate [Anterior Bilateral Throughout] Blood Pressure 140/56 127/52 127/52 O2 Sat by Pulse 95 95 95 Oximetry 11/21/21 11/21/21 11/21/21 12:00 12:01 12:11 Temperature 99.9 F H Pulse Rate 80 78 Pulse Rate [ Anterior Bilateral Throughout] Pulse Rate [ From Monitor] Respiratory 14 14 Rate Respiratory Rate [Anterior Bilateral Throughout] Blood Pressure 135/51 135/51 O2 Sat by Pulse 95 96 Oximetry 11/21/21 11/21/21 11/21/21 12:15 12:21 12:31 Temperature Pulse Rate 79 77 Pulse Rate [ Anterior Bilateral Throughout] Pulse Rate [ From Monitor] Respiratory 14 14 14 Rate Respiratory Rate [Anterior Bilateral Throughout] Blood Pressure 135/51 135/51 O2 Sat by Pulse 97 96 96 Oximetry 11/21/21 11/21/21 11/21/21 12:41 12:51 13:01 Temperature Pulse Rate 77 77 81 Pulse Rate [ Anterior Bilateral Throughout] Pulse Rate [ From Monitor] Respiratory 14 14 16 Rate Respiratory Rate [Anterior Bilateral Throughout] Blood Pressure 124/48 124/48 127/64 O2 Sat by Pulse 97 97 97 Oximetry 11/21/21 11/21/21 11/21/21 13:11 13:21 13:31 Temperature Pulse Rate 77 77 81 Pulse Rate [ Anterior Bilateral Throughout] Pulse Rate [ From Monitor] Respiratory 14 14 14 Rate Respiratory Rate [Anterior Bilateral Throughout] Blood Pressure 127/64 127/64 122/65 O2 Sat by Pulse 96 96 97 Oximetry 11/21/21 11/21/21 11/21/21 13:41 13:51 14:01 Temperature Pulse Rate 80 77 78 Pulse Rate [ Anterior Bilateral Throughout] Pulse Rate [ From Monitor] Respiratory 14 14 14 Rate Respiratory Rate [Anterior Bilateral Throughout] Blood Pressure 122/65 122/65 122/47 O2 Sat by Pulse 98 97 97 Oximetry 11/21/21 11/21/21 11/21/21 14:11 14:21 14:31 Temperature Pulse Rate 76 75 74 Pulse Rate [ Anterior Bilateral Throughout] Pulse Rate [ From Monitor] Respiratory 14 14 14 Rate Respiratory Rate [Anterior Bilateral Throughout] Blood Pressure 122/47 122/47 121/49 O2 Sat by Pulse 98 97 96 Oximetry 11/21/21 14:41 Temperature Pulse Rate 74 Pulse Rate [ Anterior Bilateral Throughout] Pulse Rate [ From Monitor] Respiratory 14 Rate Respiratory Rate [Anterior Bilateral Throughout] Blood Pressure 121/49 O2 Sat by Pulse 97 Oximetry Constitutional: no acute distress, other (elderly obese female with mildly increased respiratory effort at rest on MVS) Eyes: non-icteric ENT: oropharynx moist, other (ETT 24 cm Krish) Neck: supple, no lymphadenopathy, no JVD, other (large circumference) Effort: mildly labored Ascultation: Bilateral: diminished breath sounds, rhonchi Percussion: Bilateral: not dull Cardiovascular: regular rate and rhythm Gastrointestinal: normoactive bowel sounds, soft, non-tender, non-distended (protuberant) Integumentary: normal Extremities: no cyanosis, no edema, pulses normal, no ischemia or petechiae Neurologic: non-focal exam (grossly), pupils equal and round, CN II-XII normal, other (sedated) Psychiatric: other (agitated during sedation vacations) CBC and BMP: 11/23/21 04:49 11/23/21 04:49 ABG, PT/INR, D-dimer: ABG ABG pH 7.387 pH Units (7.350-7.450) 11/21/21 11:50 ABG pCO2 59.8 mm Hg 11/21/21 11:50 ABG pO2 61.8 mm Hg (80.0-90.0) L 11/21/21 11:50 ABG O2 Saturation 92.8 % (95.0-99.0) L 11/21/21 11:50 PT/INR, D-dimer PT 12.9 Sec. (12.2-14.9) 11/18/21 00:19 INR 0.88 (0.87-1.13) 11/18/21 00:19 D-Dimer 464.80 ng/mlDDU (0-234) H 11/18/21 05:15 Abnormal lab findings: Abnormal Labs 11/18/21 11/18/21 11/18/21 00:01 00:19 00:19 WBC 15.6 H RBC 5.59 H Hgb 14.8 H Hct 49.8 H MCH 27 L MCHC RDW 16.9 H Lymph % (Auto) [place] % (Auto) Lymph # (Auto) [place] # (Auto) Seg Neutrophils % Lymphocytes % (Manual) 4.0 L Seg Neutrophils # Seg Neutrophils # Man 14.7 H Lymphocytes # (Manual) 0.6 L D-Dimer ABG pH ABG pO2 ABG HCO3 ABG O2 Saturation ABG Base Excess Oxyhemoglobin Sodium Potassium BUN Glucose 148 H POC Glucose 151 H Calcium Phosphorus Magnesium Lactate Dehydrogenase Urine WBC (Auto) Salicylates Acetaminophen 11/18/21 11/18/21 11/18/21 00:19 00:19 00:19 WBC RBC Hgb Hct MCH MCHC RDW Lymph % (Auto) [place] % (Auto) Lymph # (Auto) [place] # (Auto) Seg Neutrophils % Lymphocytes % (Manual) Seg Neutrophils # Seg Neutrophils # Man Lymphocytes # (Manual) D-Dimer ABG pH ABG pO2 ABG HCO3 ABG O2 Saturation ABG Base Excess Oxyhemoglobin Sodium Potassium BUN Glucose POC Glucose Calcium Phosphorus Magnesium 2.50 H Lactate Dehydrogenase Urine WBC (Auto) Salicylates < 0.3 L Acetaminophen 5.0 L 11/18/21 11/18/21 11/18/21 01:03 02:00 05:15 WBC RBC Hgb Hct MCH MCHC RDW Lymph % (Auto) [place] % (Auto) Lymph # (Auto) [place] # (Auto) Seg Neutrophils % Lymphocytes % (Manual) Seg Neutrophils # Seg Neutrophils # Man Lymphocytes # (Manual) D-Dimer 464.80 H ABG pH ABG pO2 ABG HCO3 35.8 H ABG O2 Saturation ABG Base Excess 7.8 H Oxyhemoglobin 91.9 L Sodium Potassium BUN Glucose POC Glucose Calcium Phosphorus Magnesium Lactate Dehydrogenase Urine WBC (Auto) 16.0 H Salicylates Acetaminophen 11/18/21 11/18/21 11/18/21 05:15 15:47 15:47 WBC 13.5 H RBC 5.60 H Hgb 14.9 H Hct 49.1 H MCH 27 L MCHC RDW 17.3 H Lymph % (Auto) 7.9 L [place] % (Auto) 10.1 H Lymph # (Auto) 1.1 L [place] # (Auto) 1.4 H Seg Neutrophils % 81.7 H Lymphocytes % (Manual) Seg Neutrophils # 11.0 H Seg Neutrophils # Man Lymphocytes # (Manual) D-Dimer ABG pH ABG pO2 ABG HCO3 ABG O2 Saturation ABG Base Excess Oxyhemoglobin Sodium Potassium BUN Glucose 138 H POC Glucose Calcium Phosphorus Magnesium Lactate Dehydrogenase 275 H Urine WBC (Auto) Salicylates Acetaminophen 11/18/21 11/18/21 11/19/21 18:45 23:33 04:58 WBC RBC Hgb Hct MCH MCHC RDW Lymph % (Auto) [place] % (Auto) Lymph # (Auto) [place] # (Auto) Seg Neutrophils % Lymphocytes % (Manual) Seg Neutrophils # Seg Neutrophils # Man Lymphocytes # (Manual) D-Dimer ABG pH ABG pO2 ABG HCO3 ABG O2 Saturation ABG Base Excess Oxyhemoglobin Sodium Potassium BUN Glucose 130 H POC Glucose 132 H 113 H Calcium Phosphorus Magnesium Lactate Dehydrogenase Urine WBC (Auto) Salicylates Acetaminophen 11/19/21 11/19/21 11/19/21 07:59 07:59 08:55 WBC 12.7 H RBC 5.29 H Hgb Hct 45.5 H MCH 26 L MCHC RDW 17.4 H Lymph % (Auto) 12.3 L [place] % (Auto) 9.6 H Lymph # (Auto) [place] # (Auto) 1.2 H Seg Neutrophils % 76.9 H Lymphocytes % (Manual) Seg Neutrophils # 9.7 H Seg Neutrophils # Man Lymphocytes # (Manual) D-Dimer ABG pH 7.518 H ABG pO2 77.6 L ABG HCO3 30.1 H ABG O2 Saturation ABG Base Excess 6.9 H Oxyhemoglobin Sodium Potassium 3.1 L D BUN Glucose 115 H POC Glucose Calcium 8.1 L Phosphorus Magnesium Lactate Dehydrogenase Urine WBC (Auto) Salicylates Acetaminophen 11/19/21 11/19/21 11/20/21 11:33 16:22 04:20 WBC 13.9 H RBC 5.44 H Hgb Hct 49.3 H MCH 26 L MCHC 29 L RDW 18.3 H Lymph % (Auto) [place] % (Auto) Lymph # (Auto) [place] # (Auto) Seg Neutrophils % Lymphocytes % (Manual) Seg Neutrophils # Seg Neutrophils # Man Lymphocytes # (Manual) D-Dimer ABG pH ABG pO2 ABG HCO3 ABG O2 Saturation ABG Base Excess Oxyhemoglobin Sodium Potassium BUN Glucose POC Glucose 119 H 112 H Calcium Phosphorus Magnesium Lactate Dehydrogenase Urine WBC (Auto) Salicylates Acetaminophen 11/20/21 11/20/21 11/20/21 04:20 11:07 12:02 WBC RBC Hgb Hct MCH MCHC RDW Lymph % (Auto) [place] % (Auto) Lymph # (Auto) [place] # (Auto) Seg Neutrophils % Lymphocytes % (Manual) Seg Neutrophils # Seg Neutrophils # Man Lymphocytes # (Manual) D-Dimer ABG pH 7.251 L ABG pO2 66.3 L ABG HCO3 30.2 H ABG O2 Saturation 91.8 L ABG Base Excess Oxyhemoglobin 89.4 L Sodium 147 H Potassium BUN 25 H Glucose POC Glucose 118 H Calcium Phosphorus 6.40 H Magnesium Lactate Dehydrogenase Urine WBC (Auto) Salicylates Acetaminophen 11/20/21 11/21/21 11/21/21 17:31 00:07 04:44 WBC 14.0 H RBC 5.08 H Hgb Hct 44.7 H MCH 26 L MCHC 29 L RDW 17.8 H Lymph % (Auto) [place] % (Auto) Lymph # (Auto) [place] # (Auto) Seg Neutrophils % Lymphocytes % (Manual) Seg Neutrophils # Seg Neutrophils # Man Lymphocytes # (Manual) D-Dimer ABG pH ABG pO2 ABG HCO3 ABG O2 Saturation ABG Base Excess Oxyhemoglobin Sodium Potassium BUN Glucose POC Glucose 139 H 147 H Calcium Phosphorus Magnesium Lactate Dehydrogenase Urine WBC (Auto) Salicylates Acetaminophen 11/21/21 11/21/21 11/21/21 04:44 06:06 11:45 WBC RBC Hgb Hct MCH MCHC RDW Lymph % (Auto) [place] % (Auto) Lymph # (Auto) [place] # (Auto) Seg Neutrophils % Lymphocytes % (Manual) Seg Neutrophils # Seg Neutrophils # Man Lymphocytes # (Manual) D-Dimer ABG pH ABG pO2 ABG HCO3 ABG O2 Saturation ABG Base Excess Oxyhemoglobin Sodium Potassium BUN 20 H Glucose 157 H POC Glucose 158 H 119 H Calcium Phosphorus Magnesium Lactate Dehydrogenase Urine WBC (Auto) Salicylates Acetaminophen 11/21/21 11:50 WBC RBC Hgb Hct MCH MCHC RDW Lymph % (Auto) [place] % (Auto) Lymph # (Auto) [place] # (Auto) Seg Neutrophils % Lymphocytes % (Manual) Seg Neutrophils # Seg Neutrophils # Man Lymphocytes # (Manual) D-Dimer ABG pH ABG pO2 61.8 L ABG HCO3 35.2 H ABG O2 Saturation 92.8 L ABG Base Excess 8.1 H Oxyhemoglobin 90.6 L Sodium Potassium BUN Glucose POC Glucose Calcium Phosphorus Magnesium Lactate Dehydrogenase Urine WBC (Auto) Salicylates Acetaminophen Chest x-ray: image reviewed (improved lung volumes) Allied health notes reviewed: nursing
[2021-11-21] MEDS: ENOXAPARIN 40 MG/0.4 ML INJ SUB-Q SCH (21:35)
[2021-11-21] MEDS: QUEtiapine 100 MG TAB PO SCH (21:35)
[2021-11-22] MEDS: INSULIN LISPRO 100 UNIT/ML SUB-Q SCH ×5 (00:19→23:35)
[2021-11-22] MEDS: FREE WATER PO SCH ×2 (03:46→05:02)
[2021-11-22] MEDS: cefTRIAXone/NS 2 GM/100 ML 2 GM/100 ML BAG IV SCH (03:51)
[2021-11-22 05:37] LABS: Mean Corpuscular HGB Conc 30 % (30-34); Mean Corpuscular Volume 88 fl (79-97); Platelet Count 227 K/mm3 (140-440); Red Blood Count 4.94 M/mm3 (3.65-5.03); Red Cell Distribution Width 17.9 % (13.2-15.2)
[2021-11-22 05:39] LABS: Hematocrit 43.4 % (30.3-42.9)
[2021-11-22 05:40] LABS: Blood Urea Nitrogen 17 mg/dL (7-17); Hemolysis Index 3
[2021-11-22 05:41] LABS: BUN/Creatinine Ratio 28
[2021-11-22] MEDS: ARFORMOTEROL 15 MCG/2 ML NEBU IH SCH ×2 (09:07→21:15)
[2021-11-22] MEDS: BUDESONIDE 0.5 MG/2 ML NEBU IH SCH ×2 (09:07→21:15)
[2021-11-22] MEDS: FAMOTIDINE 20 MG TAB FEEDTUBE SCH ×2 (09:27→21:14)
[2021-11-22] MEDS: SENNOSIDES/DOCUSATE SODIUM 8.6/50 MG TAB FEEDTUBE SCH ×2 (09:27→21:14)
[2021-11-22] MEDS: QUEtiapine 100 MG TAB PO SCH ×2 (09:28→21:14)
[2021-11-22] MEDS: AZITHROMYCIN 250 MG TAB FEEDTUBE SCH (09:28)
[2021-11-22] MEDS: FUROSEMIDE 20 MG/2 ML INJ IV SCH ×2 (09:35→21:13)
[2021-11-22] MEDS: fentaNYL DRIP Premix 2,000 MCG/100 ML BAG IV SCH ×2 (09:37→19:49)
--- NOTE | 2021-11-22 10:31 | Electrocardiograph Report ---
[facility] Test Date: 2021-11-18 Test Time: 21:55:44 Pat Name: BEST DOHERTY Department: Room: A261 1 Gender: F [employer]ing Department: Kian LIANG : 1940 Requested By: TANNER TIWARI Order Number: [id number] Reading MD: eMlony Ross Measurements Intervals [place] Rate: 67 P: 24 OR: 169 QRS: 61 QRSD: 107 T: 22 QT: 458 QTc: 485 Interpretive Statements Sinus rhythm Early repolarization ST changes No previous ECG available for comparison Electronically Signed On 11-22-2021 10:31:30 EST by Melony Ross
--- NOTE | 2021-11-22 10:38 | Electrocardiograph Report ---
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
--- NOTE | 2021-11-22 10:56 | Electrocardiograph Report ---
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
[2021-11-22 11:18] LABS: ABG Base Excess 11.7 mmol/L (-2.0-3.0); ABG HCO3 39.4 mmol/L (20.0-26.0); ABG Methemoglobin 0.6 % (0.0-1.5); ABG Oxygen Saturation 89.5 % (95.0-99.0); ABG PCO2 65.1 mm Hg; ABG PH 7.4 pH Units (7.350-7.450); ABG PO2 55.3 mm Hg (80.0-90.0)
[2021-11-22] MEDS: ACETAMINOPHEN 650 MG RECT SUPP PR PRN (19:49)
--- NOTE | 2021-11-22 21:09 | Progress Note ---
Assessment and Plan Assessment and plan: This is a 81-year-old AA female with CAD, CHF, pulmonary hypertension, COPD, and tobacco abuse admitted for acute hypoxemic respiratory failure 2/2 of bilateral pneumonia vs COPD exacerbation/pulmonary edema requiring intubation and ventilatory support. Neuro: Agitation, acute toxic metabolic encephalopathy -Sedated with propofol and fentanyl -Goal RASS -2 -Seroquel twice daily -SAT/SBT when appropriate -Maintain sleep-wake cycle -Avoid benzodiazepine -Reduce risk of delirium Cardio: ? Acute CHF, hypertensive emergency, h/o CAD, TN, hyperlipidemia -Presented with systolic blood pressure in the 240s in the ED -S/p Cardene drip -12/2020 echocardiogram with EF of 60-65 -Admit BMP 867 -Lasix per [facility] -Blood pressure monitor per protocol -As needed hydralazine for SBP greater than 160 Pulmonary: Acute hypoxic respiratory failure, acute exacerbation of COPD, h/o COPD -CCM consulted, appreciate recommendation -Intubated in the ED on 11/18 with 8.0 ETT at 22 at the lips -A.m. vent settings: Assist-control rate 12, tidal volume 500, PEEP 6, FiO2 55% -See RT notes for titration -[facility] decreased FiO2 today -A.m. ABG and CXR noted -VAP bundle -Pulmicort and Brovana -Continue SPO2 monitoring GI: MO, h/o GERD -Nutrition consult for tube feeding -PPI -BR: Senokot -24-hour +1234 : Urinary retention, metabolic alkalosis -Briggs reinserted on 11/20 due to retention -Strict intake and output -Trend BMP -Intervene as needed Endo: NAD -Avoid hypoglycemia -Accu-Cheks every 6 hours-SSI ID: Bilateral pneumonia, UTI -Evidenced on CXR and UA -COVID-19 PCR negative -Follow culture data -Blood culture, urine culture, tracheal aspirate with no growth to date -Follow WBC and fever curve -Discontinued azithromycin and Rocephin today Heme: Leukocytosis -Monitor CBC -Transfuse to hemoglobin less than 7 -SCD to bilateral lower extremities while in bed -Lovenox subcu The high probability of a clinically significant, sudden or life threatening deterioration of the [Neuro, Resp, CV] system(s) required my full and direct attention, intervention and personal management. The aggregate critical care time was [60] minutes. This time is in addition to time spent performing reported procedures but includes the following: [x] Data Review and interpretation [x] Patient assessment and monitoring of vital signs [x] Documentation [x] Medication orders and management Disposition Plan: icu Total Time Spent with Patient (Minutes): 60 History Interval history: This is a 81-year-old female with CAD s/p TN, GERD, chronic back pain, HLD, neuropathy, emphysema, CHF, pulmonary HTN, COPD who presents to the emergency department on 11/18 via EMS for altered mental status. According to EMS patient was having difficulty breathing and minimally responsive but in respiratory distress initially. Respiratory status was said to have worsened in route to the hospital and the patient had been given Solu-Medrol magnesium IV however he developed pinpoint pupils and was given Narcan with improvement. Work-up in the emergency department revealed leukocytosis, elevated D-dimer, 8 UTI on UA, CXR showed bilateral pulmonary opacities possibly reflecting edema or atelectasis or pneumonia, CT chest showed evidence of pulmonary hypertension with dense consolidation along the left lower lobe concerning for pneumonia and mild interstitial pulmonary edema. Patient was admitted to the hospital service with acute hypoxic respiratory failure, acute COPD exacerbation and UTI to the ICU with consults to CCM. Hospital Course to Date: 11/18: Patient was seen and examined in the ED. Patient is intubated and sedated on propofol and versed gtt, RASS -3 to -4. Patient is in hypertensive emergency this am, SBP in the 240s, cardene gtt was initiated, maintain SBP less than 160. Leukocytosis noted, UA significant for UTI. Lactic, procal, and CRP are normal. Patient remains afebrile, continue empiric IV abx for now. Tracheal aspirate ordered, blood culture is pending. Continue to f/u on culture data. 11/19: Patient remains intubated and sedated. Patient did not tolerate sedation vacation this am, became tachycardic, hypertensive, with elevated RR and SPO2 in the low 80s. Sedation back on, continue to wean sedation as tolerated for RASS goal of 0 to -2. Pateimt is off cardene gtt, PRN hydralazine for SPO2 above 160. Low K repleted, repeat labs in the am. 11/20: Remains on the vent and sedated, RASS -3. Plan to wean down on sedation, might need to add Seroquel if patient is not tolerating sedation. Hypernatremia and increased BUN/Cr. this am, patient is on lasix BID. Will discuss with CCM to possibly hold or decreased IV lasix for now, FWF added for high Na. Urinary retention post briggs removal, bladder scan and straight cath per protocol. 11/21: Patient remains on the vent, unable to wean sedation at this time, Seroquel added. Titrate sedation as tolerated for RASS of 0 to -2. Briggs was kaila nserted overnight for urinary retention, kidney function is stable. 11/22: CCM reduced FiO2. We will start weaning tomorrow. No acute events reported overnight. Hospitalist Physical - Constitutional Vitals: Temp Pulse Resp BP Pulse Ox 100.4 F H 80 14 130/61 89 11/22/21 19:38 11/22/21 20:00 11/22/21 20:00 11/22/21 20:00 11/22/21 20:00 General appearance: Present: no acute distress, other (Intubated and Sedated) - EENT Eyes: Present: PERRL, EOM intact ENT: dentition normal - Neck Neck: Present: normal ROM - Respiratory Respiratory effort: normal Respiratory: bilateral: diminished - Cardiovascular Rhythm: regular Heart Sounds: Present: S1 & S2. Absent: systolic murmur, diastolic murmur - Extremities Extremities: no ischemia, pulses intact, pulses symmetrical, No edema, normal temperature, normal color Peripheral Pulses: within normal limits - Abdominal General gastrointestinal: soft, non-tender, non-distended, normal bowel sounds - Integumentary Integumentary: Present: warm, dry - Psychiatric Psychiatric: cooperative - Neurologic Neurologic: CNII-XII intact, moves all extremities - Allied Health Allied health notes reviewed: nursing, RT, social work HEART Score - HEART Score Troponin: Troponin T < 0.010 ng/mL (0.00-0.029) 11/18/21 03:25 Results - Labs CBC & Chem 7: 11/22/21 04:39 11/22/21 04:39 Labs: Laboratory Last Values WBC 14.1 K/mm3 (4.5-11.0) H 11/22/21 04:39 RBC 4.94 M/mm3 (3.65-5.03) 11/22/21 04:39 Hgb 13.0 gm/dl (10.1-14.3) 11/22/21 04:39 Hct 43.4 % (30.3-42.9) H 11/22/21 04:39 MCV 88 fl (79-97) 11/22/21 04:39 MCH 26 pg (28-32) L 11/22/21 04:39 MCHC 30 % (30-34) 11/22/21 04:39 RDW 17.9 % (13.2-15.2) H 11/22/21 04:39 Plt Count 227 K/mm3 (140-440) 11/22/21 04:39 Lymph % (Auto) 12.3 % (13.4-35.0) L 11/19/21 07:59 Dickens % (Auto) 9.6 % (0.0-7.3) H 11/19/21 07:59 Eos % (Auto) 0.7 % (0.0-4.3) 11/19/21 07:59 Baso % (Auto) 0.5 % (0.0-1.8) 11/19/21 07:59 Lymph # (Auto) 1.6 K/mm3 (1.2-5.4) 11/19/21 07:59 Dickens # (Auto) 1.2 K/mm3 (0.0-0.8) H 11/19/21 07:59 Eos # (Auto) 0.1 K/mm3 (0.0-0.4) 11/19/21 07:59 Baso # (Auto) 0.1 K/mm3 (0.0-0.1) 11/19/21 07:59 Add Manual Diff Complete 11/18/21 00:19 Total Counted 100 11/18/21 00:19 Seg Neutrophils % 76.9 % (40.0-70.0) H 11/19/21 07:59 Lymphocytes % (Manual) 4.0 % (13.4-35.0) L 11/18/21 00:19 Monocytes % (Manual) 2.0 % (0.0-7.3) 11/18/21 00:19 Nucleated RBC % Not Reportable 11/18/21 00:19 Seg Neutrophils # 9.7 K/mm3 (1.8-7.7) H 11/19/21 07:59 Seg Neutrophils # Man 14.7 K/mm3 (1.8-7.7) H 11/18/21 00:19 Band Neutrophils # 0.0 K/mm3 11/18/21 00:19 Lymphocytes # (Manual) 0.6 K/mm3 (1.2-5.4) L 11/18/21 00:19 Abs React Lymphs (Man) 0.0 K/mm3 11/18/21 00:19 Monocytes # (Manual) 0.3 K/mm3 (0.0-0.8) 11/18/21 00:19 Eosinophils # (Manual) 0.0 K/mm3 (0.0-0.4) 11/18/21 00:19 Basophils # (Manual) 0.0 K/mm3 (0.0-0.1) 11/18/21 00:19 Metamyelocytes # 0.0 K/mm3 11/18/21 00:19 Myelocytes # 0.0 K/mm3 11/18/21 00:19 Promyelocytes # 0.0 K/mm3 11/18/21 00:19 Blast Cells # 0.0 K/mm3 11/18/21 00:19 WBC Morphology Not Reportable 11/18/21 00:19 Hypersegmented Neuts Not Reportable 11/18/21 00:19 Hyposegmented Neuts Not Reportable 11/18/21 00:19 Hypogranular Neuts Not Reportable 11/18/21 00:19 Smudge Cells Not Reportable 11/18/21 00:19 Toxic Granulation Not Reportable 11/18/21 00:19 Toxic Vacuolation Not Reportable 11/18/21 00:19 Dohle Bodies Not Reportable 11/18/21 00:19 Pelger-Huet Anomaly Not Reportable 11/18/21 00:19 Luis Rods Not Reportable 11/18/21 00:19 Platelet Estimate Consistent w auto 11/18/21 00:19 Clumped Platelets Not Reportable 11/18/21 00:19 Plt Clumps, EDTA Not Reportable 11/18/21 00:19 Large Platelets Not Reportable 11/18/21 00:19 Giant Platelets Not Reportable 11/18/21 00:19 Platelet Satelliting Not Reportable 11/18/21 00:19 Plt Morphology Comment Not Reportable 11/18/21 00:19 RBC Morphology Not Reportable 11/18/21 00:19 Dimorphic RBCs Not Reportable 11/18/21 00:19 Polychromasia Not Reportable 11/18/21 00:19 Hypochromasia Not Reportable 11/18/21 00:19 Poikilocytosis Not Reportable 11/18/21 00:19 Anisocytosis 1+ 11/18/21 00:19 Microcytosis Not Reportable 11/18/21 00:19 Macrocytosis Few 11/18/21 00:19 Spherocytes Not Reportable 11/18/21 00:19 Pappenheimer Bodies Not Reportable 11/18/21 00:19 Sickle Cells Not Reportable 11/18/21 00:19 Target Cells Not Reportable 11/18/21 00:19 Tear Drop Cells Not Reportable 11/18/21 00:19 Ovalocytes Not Reportable 11/18/21 00:19 Helmet Cells Not Reportable 11/18/21 00:19 [place] Bodies Not Reportable 11/18/21 00:19 [place] Rings Not Reportable 11/18/21 00:19 Yumi Cells Not Reportable 11/18/21 00:19 Bite Cells Not Reportable 11/18/21 00:19 Crenated Cell Not Reportable 11/18/21 00:19 Elliptocytes Not Reportable 11/18/21 00:19 Acanthocytes (Spur) Not Reportable 11/18/21 00:19 Rouleaux Not Reportable 11/18/21 00:19 Hemoglobin C Crystals Not Reportable 11/18/21 00:19 Schistocytes Not Reportable 11/18/21 00:19 Malaria parasites Not Reportable 11/18/21 00:19 Shahriar Bodies Not Reportable 11/18/21 00:19 Hem Pathologist Commnt No 11/18/21 00:19 PT 12.9 Sec. (12.2-14.9) 11/18/21 00:19 INR 0.88 (0.87-1.13) 11/18/21 00:19 APTT 29.2 Sec. (24.2-36.6) 11/18/21 00:19 D-Dimer 464.80 ng/mlDDU (0-234) H 11/18/21 05:15 ABG pH 7.400 pH Units (7.350-7.450) 11/22/21 10:56 ABG pCO2 65.1 mm Hg 11/22/21 10:56 ABG pO2 55.3 mm Hg (80.0-90.0) L 11/22/21 10:56 ABG HCO3 39.4 mmol/L (20.0-26.0) H 11/22/21 10:56 ABG O2 Saturation 89.5 % (95.0-99.0) L 11/22/21 10:56 ABG O2 Content 17.2 (0.0-44) 11/22/21 10:56 ABG Base Excess 11.7 mmol/L (-2.0-3.0) H 11/22/21 10:56 ABG Hemoglobin 14.1 gm/dl (12.0-16.0) 11/22/21 10:56 ABG Carboxyhemoglobin 2.0 % (0.0-5.0) 11/22/21 10:56 ABG Methemoglobin 0.6 % (0.0-1.5) 11/22/21 10:56 Oxyhemoglobin 87.2 % (95.0-99.0) L 11/22/21 10:56 FiO2 50 % 11/22/21 10:56 Sodium 145 mmol/L (137-145) 11/22/21 04:39 Potassium 3.8 mmol/L (3.6-5.0) 11/22/21 04:39 Chloride 100.4 mmol/L (98-107) 11/22/21 04:39 Carbon Dioxide 33 mmol/L (22-30) H 11/22/21 04:39 Anion Gap 15 mmol/L 11/22/21 04:39 BUN 17 mg/dL (7-17) 11/22/21 04:39 Creatinine 0.6 mg/dL (0.6-1.2) 11/22/21 04:39 Estimated GFR > 60 ml/min 11/22/21 04:39 BUN/Creatinine Ratio 28 % 11/22/21 04:39 Glucose 152 mg/dL (65-100) H 11/22/21 04:39 POC Glucose 129 mg/dL (70-105) H 11/22/21 17:29 Hemoglobin A1c 5.9 % (4-6) 11/19/21 07:59 Lactic Acid 1.40 mmol/L (0.7-2.0) 11/18/21 00:19 Calcium 9.0 mg/dL (8.4-10.2) 11/22/21 04:39 Phosphorus 6.40 mg/dL (2.5-4.5) H 11/20/21 04:20 Magnesium 2.10 mg/dL (1.7-2.3) 11/20/21 04:20 Total Bilirubin 0.40 mg/dL (0.1-1.2) 11/18/21 00:19 Direct Bilirubin < 0.2 mg/dL (0-0.2) 11/18/21 00:19 Indirect Bilirubin 0.2 mg/dL 11/18/21 00:19 AST 22 units/L (5-40) 11/18/21 00:19 ALT 25 units/L (7-56) 11/18/21 00:19 Alkaline Phosphatase 99 units/L (35-129) 11/18/21 00:19 Ammonia 54.0 umol/L (25-60) 11/18/21 00:19 Lactate Dehydrogenase 275 units/L (91-180) H 11/18/21 05:15 Troponin T < 0.010 ng/mL (0.00-0.029) 11/18/21 03:25 C-Reactive Protein 0.70 mg/dL (0.00-1.30) 11/18/21 15:47 NT-Pro-B Natriuret Pep 867.7 pg/mL (0-900) 11/18/21 00:19 Total Protein 7.4 g/dL (6.3-8.2) 11/18/21 00:19 Albumin 4.0 g/dL (3.9-5) 11/18/21 00:19 Albumin/Globulin Ratio 1.2 % 11/18/21 00:19 Triglycerides 185 mg/dL (2-149) H 11/22/21 04:39 Lipase 13 units/L (13-60) 11/18/21 00:19 Procalcitonin 0.12 ng/mL (<0.15) 11/18/21 05:15 Urine Color Yellow (Yellow) 11/18/21 01:03 Urine Turbidity Clear (Clear) 11/18/21 01:03 Urine pH 5.0 (5.0-7.0) 11/18/21 01:03 Ur Specific [place] 1.009 (1.003-1.030) 11/18/21 01:03 Urine Protein 100 mg/dl mg/dL (Negative) 11/18/21 01:03 Urine Glucose (UA) Neg mg/dL (Negative) 11/18/21 01:03 Urine Ketones Neg mg/dL (Negative) 11/18/21 01:03 Urine Blood Sm (Negative) 11/18/21 01:03 Urine Nitrite Neg (Negative) 11/18/21 01:03 Urine Bilirubin Neg (Negative) 11/18/21 01:03 Urine Urobilinogen < 2.0 mg/dL (<2.0) 11/18/21 01:03 Ur Leukocyte Esterase Tr (Negative) 11/18/21 01:03 Urine WBC (Auto) 16.0 /HPF (0.0-6.0) H 11/18/21 01:03 Urine RBC (Auto) 3.0 /HPF (0.0-6.0) 11/18/21 01:03 U Epithel Cells (Auto) 1.0 /HPF (0-13.0) 11/18/21 01:03 Hyaline Casts 3 /LPF 11/18/21 01:03 Urine Mucus Few /HPF 11/18/21 01:03 Salicylates < 0.3 mg/dL (2.8-20.0) L 11/18/21 00:19 Urine Opiates Screen Negative 11/18/21 01:03 Urine Methadone Screen Negative 11/18/21 01:03 Acetaminophen 5.0 ug/mL (10.0-30.0) L 11/18/21 00:19 Ur Barbiturates Screen Negative 11/18/21 01:03 Ur Phencyclidine Scrn Negative 11/18/21 01:03 Ur Amphetamines Screen Negative 11/18/21 01:03 U Benzodiazepines Scrn Negative 11/18/21 01:03 Urine Cocaine Screen Negative 11/18/21 01:03 U Marijuana (THC) Screen Negative 11/18/21 01:03 Drugs of Abuse Note Disclamer 11/18/21 01:03 Plasma/Serum Alcohol < 0.01 % (0-0.07) 11/18/21 00:19 Coronavirus (PCR) Negative (Negative) 11/18/21 Unknown Microbiology: Microbiology 11/18/21 00:19 Peripheral/Venous Blood Culture - Preliminary NO GROWTH AFTER 4 DAYS 11/18/21 00:19 Peripheral/Venous Blood Culture - Preliminary NO GROWTH AFTER 4 DAYS Briggs/IV: Voiding Method Indwelling Catheter Active Medications - Current Medications Current Medications: Generic Name Dose Route Start Last Admin Trade Name Freq PRN Reason Stop Dose Admin Acetaminophen 650 mg 11/18/21 03:10 11/22/21 19:49 Acetaminophen 650 Mg Rect Supp [place] 650 mg Q6H PRN Administration Pain MILD(1-3)/Fever >100.5/MONTIEL Lipase/Protease/Amylase 1 each 11/18/21 16:10 Lipase 10,500/Protease 25,000/Amylase 43,750 (Units) Dr Cap FEEDTUBE PRN PRN For Clogged Feeding Tube Arformoterol Tartrate 15 mcg 11/18/21 20:00 11/22/21 09:07 Arformoterol 15 Mcg/2 Ml Nebu IH 15 mcg Q12HRT PAULINA Administration Budesonide 0.5 mg 11/18/21 20:00 11/22/21 09:07 Budesonide 0.5 Mg/2 Ml Nebu IH 0.5 mg Q12HRT PAULINA Administration Dextrose 50 ml 11/18/21 10:40 Dextrose 50% In Water (25gm) 50 Ml Syringe IV Q30MIN PRN Hypoglycemia Protocol Enoxaparin Sodium 40 mg 11/19/21 22:00 11/21/21 21:35 Enoxaparin 40 Mg/0.4 Ml Inj SUB-Q 40 mg QDAY@2200 PAULINA Administration Protocol Famotidine 20 mg 11/20/21 10:00 11/22/21 09:27 Famotidine 20 Mg Tab FEEDTUBE 20 mg BID PAULINA Administration Fentanyl 50 mcg 11/18/21 13:10 Fentanyl 100 Mcg/2 Ml Inj IV Q10MIN PRN ANALGESIA Furosemide 20 mg 11/18/21 16:00 11/22/21 09:35 Furosemide 20 Mg/2 Ml Inj IV 20 mg BID PAULINA Administration Hydralazine HCl 10 mg 11/18/21 10:44 Hydralazine 20 Mg/1 Ml Inj IV Q4HR PRN Hypertension Hydrophilic Ointment 1 applic 11/18/21 15:26 Lip Therapy Vaseline TP Q2HR PRN Dry Lips Propofol 1,000 mg in 100 mls @ 2.55 mls/hr 11/18/21 02:00 11/22/21 18:13 Diprivan 10 Mg/Ml IV Infused TITR PAULINA Titration Protocol 5 MCG/KG/MIN Nicardipine HCl 50 mg/ Sodium 250 mls @ 25 mls/hr 11/18/21 12:00 11/18/21 23:45 Chloride IV Infused TITR PAULINA Titration Protocol 5 MG/HR Fentanyl Citrate 2,000 mcg in 100 mls @ 4.25 mls/hr 11/18/21 14:00 11/22/21 19:49 Fentanyl Drip Premix IV 4 mcg/kg/hr TITR PAULINA 17 mls/hr Administration Protocol 1 MCG/KG/HR Insulin Human Lispro 0 unit 11/18/21 12:00 11/22/21 17:37 Insulin Lispro 100 Unit/Ml SUB-Q Not Given Q6HR PAULINA Protocol Magnesium Hydroxide 30 ml 11/18/21 03:10 Magnesium Hydroxide (Mom) Oral Liqd Udc PO Q4H PRN Constipation Multi-Ingred Cream/Lotion/Oil/Oint 1 applic 11/18/21 15:26 Mineral Oil/Petrolatum, White Ophth Oint 3.5 Gm OU Q4HR PRN Dry Eye(s) Ondansetron HCl 4 mg 11/18/21 03:10 Ondansetron 4 Mg/2 Ml Inj IV Q8H PRN Nausea And Vomiting Quetiapine Fumarate 100 mg 11/21/21 22:00 11/22/21 09:28 Quetiapine 100 Mg Tab PO 100 mg BID PAULINA Administration Senna/Docusate Sodium 1 tab 11/18/21 22:00 11/22/21 09:27 Sennosides/Docusate Sodium 8.6/50 Mg Tab FEEDTUBE 1 tab BID PAULINA Administration Simple Syrup 15 ml 11/18/21 16:10 Simple Syrup 15 Ml FEEDTUBE PRN PRN Hypoglycemia Simple Syrup 30 ml 11/18/21 16:10 Simple Syrup 15 Ml FEEDTUBE PRN PRN Hypoglycemia Sodium Bicarbonate 325 mg 11/18/21 16:10 Sodium Bicarbonate 325 Mg Tab FEEDTUBE PRN PRN For Clogged Feeding Tube Nutrition/Malnutrition Assess - Dietary Evaluation Nutrition/Malnutrition Findings: Nutrition Notes Start: 11/18/21 10:45 Freq: Status: Active Protocol: Document 11/21/21 10:05 (Rec: 11/21/21 10:10 [email or web address]) Nutrition Notes Initial or Follow up Reassessment Current Diagnosis COPD,Coronary Artery Disease, Hypertension,Heart Failure, Respiratory Failure, Hyperlipidemia Other Pertinent Diagnosis AMS, UTI, COPD exacerbation Current Diet Promote @ 65 ml/hr (goal rate) Labs/Tests BUN 20 BG 157 Pertinent Medications Lasix Propofol at 10.2 ml/hr ( provides 269 kcal) Height 5 ft 8 in Weight 81.6 kg [place] Body Weight (kg) 63.63 BMI 27.3 Weight change and time frame Wt loss noted, unsure of accuracy, continue to monitor trends Weight Status Overweight Subjective/Other Information F/u for TF tolerance. Nurse reports pt tolerating TF. Percent of energy/protein needs met: 95%/96% Burn Absent Trauma Absent GI Symptoms None Current % PO Negligible Minimum of two criteria No #1 Nutrition Diagnosis Inadequate oral intake Diagnosis Progress(for reassessment Continues documentation) Is patient on ventilator? Yes Is Patient Ambulatory and/or Out of Bed No REE-([facility]-confined to bed) 1614.000 Calculation Used for Recommendations [facility] Additional Notes Pro needs 1.2-2g/k-170g/ day Fluid needs 1ml/kcal Nutrition Intervention Change Diet Order: Continue Nutrition Support: Promote at 65 ml/hr. Flush 60 ml q4h. Kcal 1,570 Protein (gm) 98 Carbohydrates (gm) 204 Fat (gm) 41 Fluid (mL) 1,317 Goal #1 Meet at least 75% of energy/ protein needs via Anticipated Discharge Needs: Unable to identify at this time Follow-Up By: 11/24/21 Additional Comments F/u: TF tolerance
[2021-11-22] MEDS: ENOXAPARIN 40 MG/0.4 ML INJ SUB-Q SCH (21:14)
[2021-11-23] MEDS: fentaNYL DRIP Premix 2,000 MCG/100 ML BAG IV SCH ×2 (02:08→13:28)
[2021-11-23] MEDS: ACETAMINOPHEN 325 MG/10.15 ML ORAL LIQD UNIT DOSE FEEDTUBE PRN ×2 (03:07→22:45)
[2021-11-23 05:29] LABS: Mean Corpuscular HGB Conc 29 % (30-34); Mean Corpuscular Volume 88 fl (79-97); Platelet Count 267 K/mm3 (140-440); Red Blood Count 5.18 M/mm3 (3.65-5.03); Red Cell Distribution Width 17.5 % (13.2-15.2)
[2021-11-23 05:32] LABS: Hematocrit 45.6 % (30.3-42.9); Hemoglobin 13.1 gm/dl (10.1-14.3)
[2021-11-23 05:43] LABS: Blood Urea Nitrogen 21 mg/dL (7-17); Calcium 9.5 mg/dL (8.4-10.2); Hemolysis Index 9
[2021-11-23 05:45] LABS: BUN/Creatinine Ratio 35
[2021-11-23] MEDS: INSULIN LISPRO 100 UNIT/ML SUB-Q SCH ×4 (05:48→23:08)
--- NOTE | 2021-11-23 06:30 | XRay Report ---
CHEST 1 VIEW 11/23/2021 5:22 AM INDICATION / CLINICAL INFORMATION: hypoxia. COMPARISON: 11/21/2021 FINDINGS: SUPPORT DEVICES: Unchanged. HEART / MEDIASTINUM: Stable. LUNGS / PLEURA: Redemonstrated multifocal airspace opacities No pneumothorax. ADDITIONAL FINDINGS: No significant additional findings. IMPRESSION: 1. No significant change. Signer Name: Andre Robins DO Signed: 11/23/2021 6:25 AM Workstation Name: [id number]
[2021-11-23] MEDS: ARFORMOTEROL 15 MCG/2 ML NEBU IH SCH ×2 (09:11→20:59)
[2021-11-23] MEDS: BUDESONIDE 0.5 MG/2 ML NEBU IH SCH ×2 (09:11→20:59)
[2021-11-23] MEDS: QUEtiapine 100 MG TAB PO SCH ×2 (10:52→21:36)
[2021-11-23] MEDS: SENNOSIDES/DOCUSATE SODIUM 8.6/50 MG TAB FEEDTUBE SCH ×2 (10:52→21:36)
[2021-11-23] MEDS: FAMOTIDINE 20 MG TAB FEEDTUBE SCH ×2 (10:53→21:36)
[2021-11-23] MEDS: FUROSEMIDE 20 MG/2 ML INJ IV SCH ×2 (10:53→21:36)
--- NOTE | 2021-11-23 14:18 | Progress Note ---
Assessment and Plan Acute exacerbation of chronic obstructive lung disease Acute hypoxemic respiratory failure Acute congestive heart failure exacerbation (? Flash Pulmonary edema) Community-acquired pneumonia Leukocytosis History of coronary artery disease Gastroesophageal reflux disease Arthritis Hyperlipidemia Obesity Elevated D-dimers Acute toxic metabolic encephalopathy Urinary tract infection Likely pulmonary hypertension Hypertensive emergency - placed on SBT - ABG after 2 hours - continue diuresis while monitoring electrolytes for now - 2D ECHO without heart failure - continue care as below otherwise; - Daily SAT and SBT assessment as tolerated - continue to wean supplemental oxygen for target O2 sat's > 90% acutely - VAP bundle addressed - continue lung protective strategies - continue bronchodilators with pulmonary hygiene per RT - wean per pulmonary driven protocols otherwise - avoid nephrotoxins, renally dose all medications - continue accuchecks with glycemic control per SSI (While critically ill target blood glucose of 140-180 mg/dL; avoid hypoglycemia) - sedation prn for target RASS 0 to -1 - continue to avoid benzodiazepine's, reduce the possibility of delirium - completed AB's per ID rec's - prn analgesia per CPOT score - Maintenance of sleep-wake cycle, avoid delirium - continue enteral nutritional support at goal rate as tolerated - G.I. & VTE prophylaxis - PT/OT/ROM exercises - continue mobility protocols for pressure ulcer prophylaxis - Monitor hemodynamics closely - continue other care per attending / other consultants - discharge planning ongoing concurrently COVID SPECIFIC INTERVENTIONS: - COVID-19 test negative .... Re-evaluate in am & prn CONDITION: CRITICAL PROGNOSIS: GUARDED CODE STATUS: FULL CODE The high probability of a clinically significant, sudden or life-threatening deterioration of the [respiratory, cardiovascular & neurologic] system(s) required my full and direct attention, intervention and personal management. The aggregate critical care time was [35] minutes without overlap. Time includes spent on; [x] Data Review and interpretation [x] Patient assessment and monitoring of vital signs [x] Documentation [x] Medication orders and management Subjective Date of service: 11/23/21 Principal diagnosis: AE-COPD; AHRF; CHF (? new onset); CAP; CAD; Obesity; HTNsive Emergency Interval history: Patient is seen today for: AE-COPD; Acute hypoxemic respiratory failure; CHF (? new onset); CAP; CAD; Obesity; HTNsive Emergency Seen and examined at bedside; 24hour events reviewed; nursing and respiratory care staff consulted; no adverse overnight events reported to me; remains on MVS; tolerating FiO2 of 40% well now; remains on Lasix without worsening azotemia; tolerating less sedation to control agitation; no emesis or overt aspiration Objective Vital Signs - 12hr 11/23/21 11/23/21 11/23/21 03:01 03:37 04:00 Temperature 99.8 F H Pulse Rate 93 H 81 Pulse Rate [ Anterior Bilateral Throughout] Pulse Rate [ 81 From Monitor] Respiratory 13 13 Rate Respiratory Rate [Anterior Bilateral Throughout] Blood Pressure 136/59 O2 Sat by Pulse 91 89 Oximetry 11/23/21 11/23/21 11/23/21 04:01 04:34 05:01 Temperature Pulse Rate 87 87 86 Pulse Rate [ Anterior Bilateral Throughout] Pulse Rate [ From Monitor] Respiratory 14 13 Rate Respiratory Rate [Anterior Bilateral Throughout] Blood Pressure 141/51 134/54 140/52 O2 Sat by Pulse 91 92 92 Oximetry 11/23/21 11/23/21 11/23/21 06:01 07:01 08:00 Temperature 99.7 F H Pulse Rate 88 83 80 Pulse Rate [ Anterior Bilateral Throughout] Pulse Rate [ 80 From Monitor] Respiratory 13 12 13 Rate Respiratory Rate [Anterior Bilateral Throughout] Blood Pressure 144/53 157/57 O2 Sat by Pulse 93 94 94 Oximetry 11/23/21 11/23/21 11/23/21 08:01 09:01 09:09 Temperature Pulse Rate 81 81 87 Pulse Rate [ Anterior Bilateral Throughout] Pulse Rate [ From Monitor] Respiratory 12 13 Rate Respiratory Rate [Anterior Bilateral Throughout] Blood Pressure 137/53 153/57 153/57 O2 Sat by Pulse 94 95 100 Oximetry 11/23/21 11/23/21 11/23/21 09:11 10:01 11:01 Temperature Pulse Rate 88 88 Pulse Rate [ 87 Anterior Bilateral Throughout] Pulse Rate [ From Monitor] Respiratory 14 13 Rate Respiratory 13 Rate [Anterior Bilateral Throughout] Blood Pressure 198/73 194/72 O2 Sat by Pulse 94 94 Oximetry 11/23/21 12:01 Temperature Pulse Rate 93 H Pulse Rate [ Anterior Bilateral Throughout] Pulse Rate [ From Monitor] Respiratory 16 Rate Respiratory Rate [Anterior Bilateral Throughout] Blood Pressure 143/57 O2 Sat by Pulse 94 Oximetry Constitutional: no acute distress, other (elderly obese female with mildly increased respiratory effort at rest on MVS) Eyes: non-icteric ENT: oropharynx moist, other (ETT 24 cm Krish) Neck: supple, no lymphadenopathy, no JVD, other (large circumference) Effort: mildly labored Ascultation: Bilateral: diminished breath sounds, rhonchi Percussion: Bilateral: not dull Cardiovascular: regular rate and rhythm Gastrointestinal: normoactive bowel sounds, soft, non-tender, non-distended (protuberant) Integumentary: normal Extremities: no cyanosis, no edema, pulses normal, no ischemia or petechiae Neurologic: non-focal exam (grossly), pupils equal and round, CN II-XII normal, other (sedated) Psychiatric: other (agitated during sedation vacations) CBC and BMP: 11/24/21 08:33 11/24/21 08:33 ABG, PT/INR, D-dimer: ABG ABG pH 7.400 pH Units (7.350-7.450) 11/22/21 10:56 ABG pCO2 65.1 mm Hg 11/22/21 10:56 ABG pO2 55.3 mm Hg (80.0-90.0) L 11/22/21 10:56 ABG O2 Saturation 89.5 % (95.0-99.0) L 11/22/21 10:56 PT/INR, D-dimer PT 12.9 Sec. (12.2-14.9) 11/18/21 00:19 INR 0.88 (0.87-1.13) 11/18/21 00:19 D-Dimer 464.80 ng/mlDDU (0-234) H 11/18/21 05:15 Abnormal lab findings: Abnormal Labs 11/18/21 11/18/21 11/18/21 00:01 00:19 00:19 WBC 15.6 H RBC 5.59 H Hgb 14.8 H Hct 49.8 H MCH 27 L MCHC RDW 16.9 H Lymph % (Auto) [place] % (Auto) Lymph # (Auto) [place] # (Auto) Seg Neutrophils % Lymphocytes % (Manual) 4.0 L Seg Neutrophils # Seg Neutrophils # Man 14.7 H Lymphocytes # (Manual) 0.6 L D-Dimer ABG pH ABG pO2 ABG HCO3 ABG O2 Saturation ABG Base Excess Oxyhemoglobin Sodium Potassium Carbon Dioxide BUN Glucose 148 H POC Glucose 151 H Calcium Phosphorus Magnesium Lactate Dehydrogenase Triglycerides Urine WBC (Auto) Salicylates Acetaminophen 12/23/21 12/23/21 12/23/21 00:19 00:19 00:19 WBC RBC Hgb Hct MCH MCHC RDW Lymph % (Auto) [place] % (Auto) Lymph # (Auto) [place] # (Auto) Seg Neutrophils % Lymphocytes % (Manual) Seg Neutrophils # Seg Neutrophils # Man Lymphocytes # (Manual) D-Dimer ABG pH ABG pO2 ABG HCO3 ABG O2 Saturation ABG Base Excess Oxyhemoglobin Sodium Potassium Carbon Dioxide BUN Glucose POC Glucose Calcium Phosphorus Magnesium 2.50 H Lactate Dehydrogenase Triglycerides Urine WBC (Auto) Salicylates < 0.3 L Acetaminophen 5.0 L 11/18/21 11/18/21 11/18/21 01:03 02:00 05:15 WBC RBC Hgb Hct MCH MCHC RDW Lymph % (Auto) [place] % (Auto) Lymph # (Auto) [place] # (Auto) Seg Neutrophils % Lymphocytes % (Manual) Seg Neutrophils # Seg Neutrophils # Man Lymphocytes # (Manual) D-Dimer 464.80 H ABG pH ABG pO2 ABG HCO3 35.8 H ABG O2 Saturation ABG Base Excess 7.8 H Oxyhemoglobin 91.9 L Sodium Potassium Carbon Dioxide BUN Glucose POC Glucose Calcium Phosphorus Magnesium Lactate Dehydrogenase Triglycerides Urine WBC (Auto) 16.0 H Salicylates Acetaminophen 11/18/21 11/18/21 11/18/21 05:15 15:47 15:47 WBC 13.5 H RBC 5.60 H Hgb 14.9 H Hct 49.1 H MCH 27 L MCHC RDW 17.3 H Lymph % (Auto) 7.9 L [place] % (Auto) 10.1 H Lymph # (Auto) 1.1 L [place] # (Auto) 1.4 H Seg Neutrophils % 81.7 H Lymphocytes % (Manual) Seg Neutrophils # 11.0 H Seg Neutrophils # Man Lymphocytes # (Manual) D-Dimer ABG pH ABG pO2 ABG HCO3 ABG O2 Saturation ABG Base Excess Oxyhemoglobin Sodium Potassium Carbon Dioxide BUN Glucose 138 H POC Glucose Calcium Phosphorus Magnesium Lactate Dehydrogenase 275 H Triglycerides Urine WBC (Auto) Salicylates Acetaminophen 11/18/21 11/18/21 11/19/21 18:45 23:33 04:58 WBC RBC Hgb Hct MCH MCHC RDW Lymph % (Auto) [place] % (Auto) Lymph # (Auto) [place] # (Auto) Seg Neutrophils % Lymphocytes % (Manual) Seg Neutrophils # Seg Neutrophils # Man Lymphocytes # (Manual) D-Dimer ABG pH ABG pO2 ABG HCO3 ABG O2 Saturation ABG Base Excess Oxyhemoglobin Sodium Potassium Carbon Dioxide BUN Glucose 130 H POC Glucose 132 H 113 H Calcium Phosphorus Magnesium Lactate Dehydrogenase Triglycerides Urine WBC (Auto) Salicylates Acetaminophen 11/19/21 11/19/21 11/19/21 07:59 07:59 08:55 WBC 12.7 H RBC 5.29 H Hgb Hct 45.5 H MCH 26 L MCHC RDW 17.4 H Lymph % (Auto) 12.3 L [place] % (Auto) 9.6 H Lymph # (Auto) [place] # (Auto) 1.2 H Seg Neutrophils % 76.9 H Lymphocytes % (Manual) Seg Neutrophils # 9.7 H Seg Neutrophils # Man Lymphocytes # (Manual) D-Dimer ABG pH 7.518 H ABG pO2 77.6 L ABG HCO3 30.1 H ABG O2 Saturation ABG Base Excess 6.9 H Oxyhemoglobin Sodium Potassium 3.1 L D Carbon Dioxide BUN Glucose 115 H POC Glucose Calcium 8.1 L Phosphorus Magnesium Lactate Dehydrogenase Triglycerides Urine WBC (Auto) Salicylates Acetaminophen 11/19/21 11/19/21 11/20/21 11:33 16:22 04:20 WBC 13.9 H RBC 5.44 H Hgb Hct 49.3 H MCH 26 L MCHC 29 L RDW 18.3 H Lymph % (Auto) [place] % (Auto) Lymph # (Auto) [place] # (Auto) Seg Neutrophils % Lymphocytes % (Manual) Seg Neutrophils # Seg Neutrophils # Man Lymphocytes # (Manual) D-Dimer ABG pH ABG pO2 ABG HCO3 ABG O2 Saturation ABG Base Excess Oxyhemoglobin Sodium Potassium Carbon Dioxide BUN Glucose POC Glucose 119 H 112 H Calcium Phosphorus Magnesium Lactate Dehydrogenase Triglycerides Urine WBC (Auto) Salicylates Acetaminophen 11/20/21 11/20/21 11/20/21 04:20 11:07 12:02 WBC RBC Hgb Hct MCH MCHC RDW Lymph % (Auto) [place] % (Auto) Lymph # (Auto) [place] # (Auto) Seg Neutrophils % Lymphocytes % (Manual) Seg Neutrophils # Seg Neutrophils # Man Lymphocytes # (Manual) D-Dimer ABG pH 7.251 L ABG pO2 66.3 L ABG HCO3 30.2 H ABG O2 Saturation 91.8 L ABG Base Excess Oxyhemoglobin 89.4 L Sodium 147 H Potassium Carbon Dioxide BUN 25 H Glucose POC Glucose 118 H Calcium Phosphorus 6.40 H Magnesium Lactate Dehydrogenase Triglycerides Urine WBC (Auto) Salicylates Acetaminophen 11/20/21 11/21/21 11/21/21 17:31 00:07 04:44 WBC 14.0 H RBC 5.08 H Hgb Hct 44.7 H MCH 26 L MCHC 29 L RDW 17.8 H Lymph % (Auto) [place] % (Auto) Lymph # (Auto) [place] # (Auto) Seg Neutrophils % Lymphocytes % (Manual) Seg Neutrophils # Seg Neutrophils # Man Lymphocytes # (Manual) D-Dimer ABG pH ABG pO2 ABG HCO3 ABG O2 Saturation ABG Base Excess Oxyhemoglobin Sodium Potassium Carbon Dioxide BUN Glucose POC Glucose 139 H 147 H Calcium Phosphorus Magnesium Lactate Dehydrogenase Triglycerides Urine WBC (Auto) Salicylates Acetaminophen 11/21/21 11/21/21 11/21/21 04:44 06:06 11:45 WBC RBC Hgb Hct MCH MCHC RDW Lymph % (Auto) [place] % (Auto) Lymph # (Auto) [place] # (Auto) Seg Neutrophils % Lymphocytes % (Manual) Seg Neutrophils # Seg Neutrophils # Man Lymphocytes # (Manual) D-Dimer ABG pH ABG pO2 ABG HCO3 ABG O2 Saturation ABG Base Excess Oxyhemoglobin Sodium Potassium Carbon Dioxide BUN 20 H Glucose 157 H POC Glucose 158 H 119 H Calcium Phosphorus Magnesium Lactate Dehydrogenase Triglycerides Urine WBC (Auto) Salicylates Acetaminophen 11/21/21 11/21/21 11/22/21 11:50 16:54 00:03 WBC RBC Hgb Hct MCH MCHC RDW Lymph % (Auto) [place] % (Auto) Lymph # (Auto) [place] # (Auto) Seg Neutrophils % Lymphocytes % (Manual) Seg Neutrophils # Seg Neutrophils # Man Lymphocytes # (Manual) D-Dimer ABG pH ABG pO2 61.8 L ABG HCO3 35.2 H ABG O2 Saturation 92.8 L ABG Base Excess 8.1 H Oxyhemoglobin 90.6 L Sodium Potassium Carbon Dioxide BUN Glucose POC Glucose 149 H 133 H Calcium Phosphorus Magnesium Lactate Dehydrogenase Triglycerides Urine WBC (Auto) Salicylates Acetaminophen 11/22/21 11/22/21 11/22/21 04:39 04:39 04:39 WBC 14.1 H RBC Hgb Hct 43.4 H MCH 26 L MCHC RDW 17.9 H Lymph % (Auto) [place] % (Auto) Lymph # (Auto) [place] # (Auto) Seg Neutrophils % Lymphocytes % (Manual) Seg Neutrophils # Seg Neutrophils # Man Lymphocytes # (Manual) D-Dimer ABG pH ABG pO2 ABG HCO3 ABG O2 Saturation ABG Base Excess Oxyhemoglobin Sodium Potassium Carbon Dioxide 33 H BUN Glucose 152 H POC Glucose Calcium Phosphorus Magnesium Lactate Dehydrogenase Triglycerides 185 H Urine WBC (Auto) Salicylates Acetaminophen 11/22/21 11/22/21 11/22/21 05:02 10:56 11:31 WBC RBC Hgb Hct MCH MCHC RDW Lymph % (Auto) [place] % (Auto) Lymph # (Auto) [place] # (Auto) Seg Neutrophils % Lymphocytes % (Manual) Seg Neutrophils # Seg Neutrophils # Man Lymphocytes # (Manual) D-Dimer ABG pH ABG pO2 55.3 L ABG HCO3 39.4 H ABG O2 Saturation 89.5 L ABG Base Excess 11.7 H Oxyhemoglobin 87.2 L Sodium Potassium Carbon Dioxide BUN Glucose POC Glucose 158 H 116 H Calcium Phosphorus Magnesium Lactate Dehydrogenase Triglycerides Urine WBC (Auto) Salicylates Acetaminophen 11/22/21 11/22/21 11/23/21 17:29 23:22 04:49 WBC 13.6 H RBC 5.18 H Hgb Hct 45.6 H MCH 25 L MCHC 29 L RDW 17.5 H Lymph % (Auto) [place] % (Auto) Lymph # (Auto) [place] # (Auto) Seg Neutrophils % Lymphocytes % (Manual) Seg Neutrophils # Seg Neutrophils # Man Lymphocytes # (Manual) D-Dimer ABG pH ABG pO2 ABG HCO3 ABG O2 Saturation ABG Base Excess Oxyhemoglobin Sodium Potassium Carbon Dioxide BUN Glucose POC Glucose 129 H 171 H Calcium Phosphorus Magnesium Lactate Dehydrogenase Triglycerides Urine WBC (Auto) Salicylates Acetaminophen 11/23/21 11/23/21 04:49 11:53 WBC RBC Hgb Hct MCH MCHC RDW Lymph % (Auto) [place] % (Auto) Lymph # (Auto) [place] # (Auto) Seg Neutrophils % Lymphocytes % (Manual) Seg Neutrophils # Seg Neutrophils # Man Lymphocytes # (Manual) D-Dimer ABG pH ABG pO2 ABG HCO3 ABG O2 Saturation ABG Base Excess Oxyhemoglobin Sodium 146 H Potassium Carbon Dioxide 36 H BUN 21 H Glucose 155 H POC Glucose 166 H Calcium Phosphorus Magnesium Lactate Dehydrogenase Triglycerides Urine WBC (Auto) Salicylates Acetaminophen Chest x-ray: image reviewed (likely pulmonary edema +/- pneumonia) Allied health notes reviewed: nursing
[2021-11-23 17:36] LABS: ABG Base Excess 14.6 mmol/L (-2.0-3.0); ABG HCO3 40.9 mmol/L (20.0-26.0); ABG Methemoglobin 0.4 % (0.0-1.5); ABG Oxygen Saturation 93.4 % (95.0-99.0); ABG PCO2 67.9 mm Hg; ABG PH 7.398 pH Units (7.350-7.450); ABG PO2 61.8 mm Hg (80.0-90.0)
--- NOTE | 2021-11-23 18:32 | Progress Note ---
Assessment and Plan Assessment and plan: This is a 81-year-old AA female with CAD, CHF, pulmonary hypertension, COPD, and tobacco abuse admitted for acute hypoxemic respiratory failure 2/2 of bilateral pneumonia vs COPD exacerbation/pulmonary edema requiring intubation and ventilatory support. Neuro: Agitation, acute toxic metabolic encephalopathy -Sedated with propofol and fentanyl -Goal RASS -2 -Seroquel twice daily -SAT/SBT when appropriate -Maintain sleep-wake cycle -Avoid benzodiazepine -Reduce risk of delirium Cardio: ? Acute CHF, hypertensive emergency, h/o CAD, OK, hyperlipidemia -Presented with systolic blood pressure in the 240s in the ED -S/p Cardene drip -11/22 echocardiogram with mild concentric left trickle hypertrophy, LVEF 60 to 65%, left pleural effusion -Admit BMP 867 -Lasix per [facility] -Changed to daily for 3 days -Blood pressure monitor per protocol -As needed hydralazine for SBP greater than 160 Pulmonary: Acute hypoxic respiratory failure, acute exacerbation of COPD, h/o COPD -CCM consulted, appreciate recommendation -Intubated in the ED on 11/18 with 8.0 ETT at 22 at the lips -A.m. vent settings: Assist-control rate 12, TV 500, PEEP 6, 40% FiO2 -See RT notes for titration -SBT trial today -PM ABG noted -Rest overnight assist control and SBT in the a.m., obtain ABG after 2 hours-> RT communication order placed per CCM -A.m. ABG and CXR noted -VAP bundle -Pulmicort and Brovana -Continue SPO2 monitoring GI: MO, h/o GERD -Nutrition consult for tube feeding -PPI -BR: Senokot -24-hour -754 : Urinary retention, metabolic alkalosis, hypernatremia -Briggs reinserted on 11/20 due to retention -Strict intake and output -Trend BMP -Intervene as needed Endo: NAD -Avoid hypoglycemia -Accu-Cheks every 6 hours -SSI ID: Bilateral pneumonia, UTI -Evidenced on CXR and UA -COVID-19 PCR negative -Follow culture data -Blood culture, urine culture, tracheal aspirate with no growth to date -Follow WBC and fever curve -recultured today for tmax 101 -Discontinued azithromycin and Rocephin today Heme: Leukocytosis -Monitor CBC -Transfuse to hemoglobin less than 7 -SCD to bilateral lower extremities while in bed -Lovenox subcu The high probability of a clinically significant, sudden or life threatening deterioration of the [Neuro, Resp, CV] system(s) required my full and direct attention, intervention and personal management. The aggregate critical care time was [60] minutes. This time is in addition to time spent performing reported procedures but includes the following: [x] Data Review and interpretation [x] Patient assessment and monitoring of vital signs [x] Documentation [x] Medication orders and management Disposition Plan: icu Total Time Spent with Patient (Minutes): 60 History Interval history: This is a 81-year-old female with CAD s/p OK, GERD, chronic back pain, HLD, neuropathy, emphysema, CHF, pulmonary HTN, COPD who presents to the emergency department on 11/18 via EMS for altered mental status. According to EMS patient was having difficulty breathing and minimally responsive but in respiratory distress initially. Respiratory status was said to have worsened in route to the hospital and the patient had been given Solu-Medrol magnesium IV however he developed pinpoint pupils and was given Narcan with improvement. Work-up in the emergency department revealed leukocytosis, elevated D-dimer, 8 UTI on UA, CXR showed bilateral pulmonary opacities possibly reflecting edema or atelectasis or pneumonia, CT chest showed evidence of pulmonary hypertension with dense consolidation along the left lower lobe concerning for pneumonia and mild interstitial pulmonary edema. Patient was admitted to the hospital service with acute hypoxic respiratory failure, acute COPD exacerbation and UTI to the ICU with consults to [facility]. Hospital Course to Date: 11/18: Patient was seen and examined in the ED. Patient is intubated and sedated on propofol and versed gtt, RASS -3 to -4. Patient is in hypertensive emergency this am, SBP in the 240s, cardene gtt was initiated, maintain SBP less than 160. Leukocytosis noted, UA significant for UTI. Lactic, procal, and CRP are normal. Patient remains afebrile, continue empiric IV abx for now. Tracheal aspirate ordered, blood culture is pending. Continue to f/u on culture data. 11/19: Patient remains intubated and sedated. Patient did not tolerate sedation vacation this am, became tachycardic, hypertensive, with elevated RR and SPO2 in the low 80s. Sedation back on, continue to wean sedation as tolerated for RASS goal of 0 to -2. Pateimt is off cardene gtt, PRN hydralazine for SPO2 above 160. Low K repleted, repeat labs in the am. 11/20: Remains on the vent and sedated, RASS -3. Plan to wean down on sedation, might need to add Seroquel if patient is not tolerating sedation. Hypernatremia and increased BUN/Cr. this am, patient is on lasix BID. Will discuss with CCM to possibly hold or decreased IV lasix for now, FWF added for high Na. Urinary retention post briggs removal, bladder scan and straight cath per protocol. 11/21: Patient remains on the vent, unable to wean sedation at this time, Seroquel added. Titrate sedation as tolerated for RASS of 0 to -2. Briggs was reinserted overnight for urinary retention, kidney function is stable. 11/22: [facility] reduced FiO2. We will start weaning tomorrow. No acute events reported overnight. 11/23: Patient spiked a fever overnight and was cultured this morning. Atte mpted CPAP trial again today. An ABG obtained post trial which has been given to CCM. Slight hypernatremia noted. Hospitalist Physical - Constitutional Vitals: Temp Pulse Resp BP Pulse Ox 99.2 F 89 18 169/23 95 11/23/21 12:00 11/23/21 18:01 11/23/21 18:01 11/23/21 18:01 11/23/21 18:01 General appearance: Present: no acute distress, other (Intubated and Sedated) HEART Score - HEART Score Troponin: Troponin T < 0.010 ng/mL (0.00-0.029) 11/18/21 03:25 Results - Labs CBC & Chem 7: 11/23/21 04:49 11/23/21 04:49 Labs: Laboratory Last Values WBC 13.6 K/mm3 (4.5-11.0) H 11/23/21 04:49 RBC 5.18 M/mm3 (3.65-5.03) H 11/23/21 04:49 Hgb 13.1 gm/dl (10.1-14.3) 11/23/21 04:49 Hct 45.6 % (30.3-42.9) H 11/23/21 04:49 MCV 88 fl (79-97) 11/23/21 04:49 MCH 25 pg (28-32) L 11/23/21 04:49 MCHC 29 % (30-34) L 11/23/21 04:49 RDW 17.5 % (13.2-15.2) H 11/23/21 04:49 Plt Count 267 K/mm3 (140-440) 11/23/21 04:49 Lymph % (Auto) 12.3 % (13.4-35.0) L 11/19/21 07:59 [place] % (Auto) 9.6 % (0.0-7.3) H 11/19/21 07:59 Eos % (Auto) 0.7 % (0.0-4.3) 11/19/21 07:59 Baso % (Auto) 0.5 % (0.0-1.8) 11/19/21 07:59 Lymph # (Auto) 1.6 K/mm3 (1.2-5.4) 11/19/21 07:59 [place] # (Auto) 1.2 K/mm3 (0.0-0.8) H 11/19/21 07:59 Eos # (Auto) 0.1 K/mm3 (0.0-0.4) 11/19/21 07:59 Baso # (Auto) 0.1 K/mm3 (0.0-0.1) 11/19/21 07:59 Add Manual Diff Complete 11/18/21 00:19 Total Counted 100 11/18/21 00:19 Seg Neutrophils % 76.9 % (40.0-70.0) H 11/19/21 07:59 Lymphocytes % (Manual) 4.0 % (13.4-35.0) L 11/18/21 00:19 Monocytes % (Manual) 2.0 % (0.0-7.3) 11/18/21 00:19 Nucleated RBC % Not Reportable 11/18/21 00:19 Seg Neutrophils # 9.7 K/mm3 (1.8-7.7) H 11/19/21 07:59 Seg Neutrophils # Man 14.7 K/mm3 (1.8-7.7) H 11/18/21 00:19 Band Neutrophils # 0.0 K/mm3 11/18/21 00:19 Lymphocytes # (Manual) 0.6 K/mm3 (1.2-5.4) L 11/18/21 00:19 Abs React Lymphs (Man) 0.0 K/mm3 11/18/21 00:19 Monocytes # (Manual) 0.3 K/mm3 (0.0-0.8) 11/18/21 00:19 Eosinophils # (Manual) 0.0 K/mm3 (0.0-0.4) 11/18/21 00:19 Basophils # (Manual) 0.0 K/mm3 (0.0-0.1) 11/18/21 00:19 Metamyelocytes # 0.0 K/mm3 11/18/21 00:19 Myelocytes # 0.0 K/mm3 11/18/21 00:19 Promyelocytes # 0.0 K/mm3 11/18/21 00:19 Blast Cells # 0.0 K/mm3 11/18/21 00:19 WBC Morphology Not Reportable 11/18/21 00:19 Hypersegmented Neuts Not Reportable 11/18/21 00:19 Hyposegmented Neuts Not Reportable 11/18/21 00:19 Hypogranular Neuts Not Reportable 11/18/21 00:19 Smudge Cells Not Reportable 11/18/21 00:19 Toxic Granulation Not Reportable 11/18/21 00:19 Toxic Vacuolation Not Reportable 11/18/21 00:19 Dohle Bodies Not Reportable 11/18/21 00:19 Pelger-Huet Anomaly Not Reportable 11/18/21 00:19 Luis Rods Not Reportable 11/18/21 00:19 Platelet Estimate Consistent w auto 11/18/21 00:19 Clumped Platelets Not Reportable 11/18/21 00:19 Plt Clumps, EDTA Not Reportable 11/18/21 00:19 Large Platelets Not Reportable 11/18/21 00:19 Giant Platelets Not Reportable 11/18/21 00:19 Platelet Satelliting Not Reportable 11/18/21 00:19 Plt Morphology Comment Not Reportable 11/18/21 00:19 RBC Morphology Not Reportable 11/18/21 00:19 Dimorphic RBCs Not Reportable 11/18/21 00:19 Polychromasia Not Reportable 11/18/21 00:19 Hypochromasia Not Reportable 11/18/21 00:19 Poikilocytosis Not Reportable 11/18/21 00:19 Anisocytosis 1+ 11/18/21 00:19 Microcytosis Not Reportable 11/18/21 00:19 Macrocytosis Few 11/18/21 00:19 Spherocytes Not Reportable 11/18/21 00:19 Pappenheimer Bodies Not Reportable 11/18/21 00:19 Sickle Cells Not Reportable 11/18/21 00:19 Target Cells Not Reportable 11/18/21 00:19 Tear Drop Cells Not Reportable 11/18/21 00:19 Ovalocytes Not Reportable 11/18/21 00:19 Helmet Cells Not Reportable 11/18/21 00:19 [place] Bodies Not Reportable 11/18/21 00:19 [place] Rings Not Reportable 11/18/21 00:19 Yumi Cells Not Reportable 11/18/21 00:19 Bite Cells Not Reportable 11/18/21 00:19 Crenated Cell Not Reportable 11/18/21 00:19 Elliptocytes Not Reportable 11/18/21 00:19 Acanthocytes (Spur) Not Reportable 11/18/21 00:19 Rouleaux Not Reportable 11/18/21 00:19 Hemoglobin C Crystals Not Reportable 11/18/21 00:19 Schistocytes Not Reportable 11/18/21 00:19 Malaria parasites Not Reportable 11/18/21 00:19 Shahriar Bodies Not Reportable 11/18/21 00:19 Hem Pathologist Commnt No 11/18/21 00:19 PT 12.9 Sec. (12.2-14.9) 11/18/21 00:19 INR 0.88 (0.87-1.13) 11/18/21 00:19 APTT 29.2 Sec. (24.2-36.6) 11/18/21 00:19 D-Dimer 464.80 ng/mlDDU (0-234) H 11/18/21 05:15 ABG pH 7.398 pH Units (7.350-7.450) 11/23/21 16:22 ABG pCO2 67.9 mm Hg 11/23/21 16:22 ABG pO2 61.8 mm Hg (80.0-90.0) L 11/23/21 16:22 ABG HCO3 40.9 mmol/L (20.0-26.0) H 11/23/21 16:22 ABG O2 Saturation 93.4 % (95.0-99.0) L 11/23/21 16:22 ABG O2 Content 8.8 (0.0-44) 11/23/21 16:22 ABG Base Excess 14.6 mmol/L (-2.0-3.0) H 11/23/21 16:22 ABG Hemoglobin 6.9 gm/dl (12.0-16.0) L 11/23/21 16:22 ABG Carboxyhemoglobin 3.0 % (0.0-5.0) 11/23/21 16:22 ABG Methemoglobin 0.4 % (0.0-1.5) 11/23/21 16:22 Oxyhemoglobin 90.2 % (95.0-99.0) L 11/23/21 16:22 FiO2 40 % 11/23/21 16:22 Sodium 146 mmol/L (137-145) H 11/23/21 04:49 Potassium 4.4 mmol/L (3.6-5.0) 11/23/21 04:49 Chloride 98.5 mmol/L (98-107) 11/23/21 04:49 Carbon Dioxide 36 mmol/L (22-30) H 11/23/21 04:49 Anion Gap 16 mmol/L 11/23/21 04:49 BUN 21 mg/dL (7-17) H 11/23/21 04:49 Creatinine 0.6 mg/dL (0.6-1.2) 11/23/21 04:49 Estimated GFR > 60 ml/min 11/23/21 04:49 BUN/Creatinine Ratio 35 % 11/23/21 04:49 Glucose 155 mg/dL (65-100) H 11/23/21 04:49 POC Glucose 142 mg/dL (70-105) H 11/23/21 17:11 Hemoglobin A1c 5.9 % (4-6) 11/19/21 07:59 Lactic Acid 1.40 mmol/L (0.7-2.0) 11/18/21 00:19 Calcium 9.5 mg/dL (8.4-10.2) 11/23/21 04:49 Phosphorus 4.20 mg/dL (2.5-4.5) 11/23/21 04:49 Magnesium 1.90 mg/dL (1.7-2.3) 11/23/21 04:49 Total Bilirubin 0.40 mg/dL (0.1-1.2) 11/18/21 00:19 Direct Bilirubin < 0.2 mg/dL (0-0.2) 11/18/21 00:19 Indirect Bilirubin 0.2 mg/dL 11/18/21 00:19 AST 22 units/L (5-40) 11/18/21 00:19 ALT 25 units/L (7-56) 11/18/21 00:19 Alkaline Phosphatase 99 units/L (35-129) 11/18/21 00:19 Ammonia 54.0 umol/L (25-60) 11/18/21 00:19 Lactate Dehydrogenase 275 units/L (91-180) H 11/18/21 05:15 Troponin T < 0.010 ng/mL (0.00-0.029) 11/18/21 03:25 C-Reactive Protein 0.70 mg/dL (0.00-1.30) 11/18/21 15:47 NT-Pro-B Natriuret Pep 867.7 pg/mL (0-900) 11/18/21 00:19 Total Protein 7.4 g/dL (6.3-8.2) 11/18/21 00:19 Albumin 4.0 g/dL (3.9-5) 11/18/21 00:19 Albumin/Globulin Ratio 1.2 % 11/18/21 00:19 Triglycerides 185 mg/dL (2-149) H 11/22/21 04:39 Lipase 13 units/L (13-60) 11/18/21 00:19 Procalcitonin 0.12 ng/mL (<0.15) 11/18/21 05:15 Urine Color Yellow (Yellow) 11/18/21 01:03 Urine Turbidity Clear (Clear) 11/18/21 01:03 Urine pH 5.0 (5.0-7.0) 11/18/21 01:03 Ur Specific [place] 1.009 (1.003-1.030) 11/18/21 01:03 Urine Protein 100 mg/dl mg/dL (Negative) 11/18/21 01:03 Urine Glucose (UA) Neg mg/dL (Negative) 11/18/21 01:03 Urine Ketones Neg mg/dL (Negative) 11/18/21 01:03 Urine Blood Sm (Negative) 11/18/21 01:03 Urine Nitrite Neg (Negative) 11/18/21 01:03 Urine Bilirubin Neg (Negative) 11/18/21 01:03 Urine Urobilinogen < 2.0 mg/dL (<2.0) 11/18/21 01:03 Ur Leukocyte Esterase Tr (Negative) 11/18/21 01:03 Urine WBC (Auto) 16.0 /HPF (0.0-6.0) H 11/18/21 01:03 Urine RBC (Auto) 3.0 /HPF (0.0-6.0) 11/18/21 01:03 U Epithel Cells (Auto) 1.0 /HPF (0-13.0) 11/18/21 01:03 Hyaline Casts 3 /LPF 11/18/21 01:03 Urine Mucus Few /HPF 11/18/21 01:03 Salicylates < 0.3 mg/dL (2.8-20.0) L 11/18/21 00:19 Urine Opiates Screen Negative 11/18/21 01:03 Urine Methadone Screen Negative 11/18/21 01:03 Acetaminophen 5.0 ug/mL (10.0-30.0) L 11/18/21 00:19 Ur Barbiturates Screen Negative 11/18/21 01:03 Ur Phencyclidine Scrn Negative 11/18/21 01:03 Ur Amphetamines Screen Negative 11/18/21 01:03 U Benzodiazepines Scrn Negative 11/18/21 01:03 Urine Cocaine Screen Negative 11/18/21 01:03 U Marijuana (THC) Screen Negative 11/18/21 01:03 Drugs of Abuse Note Disclamer 11/18/21 01:03 Plasma/Serum Alcohol < 0.01 % (0-0.07) 11/18/21 00:19 Coronavirus (PCR) Negative (Negative) 11/18/21 Unknown Microbiology: Microbiology 11/19/21 12:46 Tracheal Aspirate Sputum Culture - Final Lea Albicans 11/23/21 12:27 Peripheral/Venous Blood Culture - Preliminary Culture in Progress 11/23/21 12:27 Peripheral/Venous Blood Culture - Preliminary Culture in Progress 11/18/21 00:19 Peripheral/Venous Blood Culture - Final NO GROWTH AFTER 5 DAYS 11/18/21 00:19 Peripheral/Venous Blood Culture - Final NO GROWTH AFTER 5 DAYS Briggs/IV: Voiding Method Indwelling Catheter Active Medications - Current Medications Current Medications: Generic Name Dose Route Start Last Admin Trade Name Freq PRN Reason Stop Dose Admin Acetaminophen 650 mg 11/18/21 03:10 11/22/21 19:49 Acetaminophen 650 Mg Rect Supp NM 650 mg Q6H PRN Administration Pain MILD(1-3)/Fever >100.5/MONTIEL Acetaminophen 650 mg 11/23/21 00:56 11/23/21 03:07 Acetaminophen 325 Mg/10.15 Ml Oral Liqd Unit Dose FEEDTUBE 650 mg Q6H PRN Administration Non Cardiac Pain or Temp>100.5 Lipase/Protease/Amylase 1 each 11/18/21 16:10 Lipase 10,500/Protease 25,000/Amylase 43,750 (Units) Dr Cross FEEDTUBE PRN PRN For Clogged Feeding Tube Arformoterol Tartrate 15 mcg 11/18/21 20:00 11/23/21 09:11 Arformoterol 15 Mcg/2 Ml Nebu IH 15 mcg Q12HRT PAULINA Administration Budesonide 0.5 mg 11/18/21 20:00 11/23/21 09:11 Budesonide 0.5 Mg/2 Ml Nebu IH 0.5 mg Q12HRT PAULINA Administration Dextrose 50 ml 11/18/21 10:40 Dextrose 50% In Water (25gm) 50 Ml Syringe IV Q30MIN PRN Hypoglycemia Protocol Enoxaparin Sodium 40 mg 11/19/21 22:00 11/22/21 21:14 Enoxaparin 40 Mg/0.4 Ml Inj SUB-Q 40 mg QDAY@2200 PAULINA Administration Protocol Famotidine 20 mg 11/20/21 10:00 11/23/21 10:53 Famotidine 20 Mg Tab FEEDTUBE 20 mg BID PAULINA Administration Fentanyl 50 mcg 11/18/21 13:10 Fentanyl 100 Mcg/2 Ml Inj IV Q10MIN PRN ANALGESIA Furosemide 20 mg 11/18/21 16:00 11/23/21 10:53 Furosemide 20 Mg/2 Ml Inj IV 20 mg BID PAULINA Administration Hydralazine HCl 10 mg 11/18/21 10:44 Hydralazine 20 Mg/1 Ml Inj IV Q4HR PRN Hypertension Hydrophilic Ointment 1 applic 11/18/21 15:26 Lip Therapy Vaseline TP Q2HR PRN Dry Lips Propofol 1,000 mg in 100 mls @ 2.55 mls/hr 11/18/21 02:00 11/22/21 18:13 Diprivan 10 Mg/Ml IV Infused TITR PAULINA Titration Protocol 5 MCG/KG/MIN Fentanyl Citrate 2,000 mcg in 100 mls @ 4.25 mls/hr 11/18/21 14:00 11/23/21 13:28 Fentanyl Drip Premix IV 1 mcg/kg/hr TITR PAULINA 4.25 mls/hr Administration Protocol 1 MCG/KG/HR Insulin Human Lispro 0 unit 11/18/21 12:00 11/23/21 17:59 Insulin Lispro 100 Unit/Ml SUB-Q Not Given Q6HR PAULINA Protocol Magnesium Hydroxide 30 ml 11/18/21 03:10 Magnesium Hydroxide (Mom) Oral Liqd Udc PO Q4H PRN Constipation Multi-Ingred Cream/Lotion/Oil/Oint 1 applic 11/18/21 15:26 Mineral Oil/Petrolatum, White Ophth Oint 3.5 Gm OU Q4HR PRN Dry Eye(s) Ondansetron HCl 4 mg 11/18/21 03:10 Ondansetron 4 Mg/2 Ml Inj IV Q8H PRN Nausea And Vomiting Quetiapine Fumarate 100 mg 11/21/21 22:00 11/23/21 10:52 Quetiapine 100 Mg Tab PO 100 mg BID PAULINA Administration Senna/Docusate Sodium 1 tab 11/18/21 22:00 11/23/21 10:52 Sennosides/Docusate Sodium 8.6/50 Mg Tab FEEDTUBE 1 tab BID PAULINA Administration Simple Syrup 15 ml 11/18/21 16:10 Simple Syrup 15 Ml FEEDTUBE PRN PRN Hypoglycemia Simple Syrup 30 ml 11/18/21 16:10 Simple Syrup 15 Ml FEEDTUBE PRN PRN Hypoglycemia Sodium Bicarbonate 325 mg 11/18/21 16:10 Sodium Bicarbonate 325 Mg Tab FEEDTUBE PRN PRN For Clogged Feeding Tube Nutrition/Malnutrition Assess - Dietary Evaluation Nutrition/Malnutrition Findings: Nutrition Notes Start: 11/18/21 10:45 Freq: Status: Active Protocol: Document 11/21/21 10:05 ROGERIO (Rec: 11/21/21 10:10 ROGERIO [id number]) Nutrition Notes Initial or Follow up Reassessment Current Diagnosis COPD,Coronary Artery Disease, Hypertension,Heart Failure, Respiratory Failure, Hyperlipidemia Other Pertinent Diagnosis AMS, UTI, COPD exacerbation Current Diet Promote @ 65 ml/hr (goal rate) Labs/Tests BUN 20 BG 157 Pertinent Medications Lasix Propofol at 10.2 ml/hr ( provides 269 kcal) Height 5 ft 8 in Weight 81.6 kg [place] Body Weight (kg) 63.63 BMI 27.3 Weight change and time frame Wt loss noted, unsure of accuracy, continue to monitor trends Weight Status Overweight Subjective/Other Information F/u for TF tolerance. Nurse reports pt tolerating TF. Percent of energy/protein needs met: 95%/96% Burn Absent Trauma Absent GI Symptoms None Current % PO Negligible Minimum of two criteria No #1 Nutrition Diagnosis Inadequate oral intake Diagnosis Progress(for reassessment Continues documentation) Is patient on ventilator? Yes Is Patient Ambulatory and/or Out of Bed No REE-(Cochran-St. Jeor-confined to bed) 1614.000 Calculation Used for Recommendations Cochran-St Jeor Additional Notes Pro needs 1.2-2g/k-170g/ day Fluid needs 1ml/kcal Nutrition Intervention Change Diet Order: Continue Nutrition Support: Promote at 65 ml/hr. Flush 60 ml q4h. Kcal 1,570 Protein (gm) 98 Carbohydrates (gm) 204 Fat (gm) 41 Fluid (mL) 1,317 Goal #1 Meet at least 75% of energy/ protein needs via Anticipated Discharge Needs: Unable to identify at this time Follow-Up By: 11/24/21 Additional Comments F/u: TF tolerance
[2021-11-23 21:11] LABS: Bilirubin,Urine NEG (Negative); Blood,Urine NEG (Negative); Color,Urine Yellow (Yellow); Protein,Urine <15 mg/dL mg/dL (Negative)
[2021-11-23] MEDS: ENOXAPARIN 40 MG/0.4 ML INJ SUB-Q SCH (21:36)
[2021-11-23] MEDS: hydrALAZINE 20 MG/1 ML INJ IV PRN (21:54)
[2021-11-23] MEDS: fentaNYL 100 MCG/2 ML INJ IV PRN (22:56)
[2021-11-24] MEDS: fentaNYL DRIP Premix 2,000 MCG/100 ML BAG IV SCH ×3 (02:36→19:53)
[2021-11-24] MEDS: fentaNYL 100 MCG/2 ML INJ IV PRN ×2 (03:30→20:58)
[2021-11-24] MEDS: INSULIN LISPRO 100 UNIT/ML SUB-Q SCH ×4 (05:10→23:33)
[2021-11-24 08:57] LABS: Mean Corpuscular HGB Conc 30 % (30-34); Mean Corpuscular Volume 88 fl (79-97); Platelet Count 261 K/mm3 (140-440); Red Blood Count 4.96 M/mm3 (3.65-5.03)
[2021-11-24 09:08] LABS: Hematocrit 43.6 % (30.3-42.9)
[2021-11-24 09:16] LABS: Blood Urea Nitrogen 25 mg/dL (7-17); Calcium 9.7 mg/dL (8.4-10.2); Hemolysis Index 63
[2021-11-24 09:18] LABS: BUN/Creatinine Ratio 50
[2021-11-24 09:39] LABS: ABG Base Excess 11.9 mmol/L (-2.0-3.0); ABG HCO3 40.1 mmol/L (20.0-26.0); ABG Methemoglobin 0.4 % (0.0-1.5); ABG Oxygen Saturation 93.2 % (95.0-99.0); ABG PCO2 72.3 mm Hg; ABG PH 7.362 pH Units (7.350-7.450); ABG PO2 69.1 mm Hg (80.0-90.0)
[2021-11-24] MEDS: BUDESONIDE 0.5 MG/2 ML NEBU IH SCH ×2 (10:31→20:26)
[2021-11-24] MEDS: ARFORMOTEROL 15 MCG/2 ML NEBU IH SCH ×2 (10:31→20:26)
[2021-11-24] MEDS: QUEtiapine 100 MG TAB PO SCH ×2 (10:32→21:00)
[2021-11-24] MEDS: FUROSEMIDE 20 MG/2 ML INJ IV SCH (10:32)
[2021-11-24] MEDS: FAMOTIDINE 20 MG TAB FEEDTUBE SCH ×2 (10:32→21:00)
--- NOTE | 2021-11-24 12:13 | Progress Note ---
Assessment and Plan Acute exacerbation of chronic obstructive lung disease Acute hypoxemic respiratory failure Acute congestive heart failure exacerbation (? Flash Pulmonary edema) Community-acquired pneumonia Leukocytosis History of coronary artery disease Gastroesophageal reflux disease Arthritis Hyperlipidemia Obesity Elevated D-dimers Acute toxic metabolic encephalopathy Urinary tract infection Likely pulmonary hypertension Hypertensive emergency - continue SBT - repeat ABG at 9 pm to assess ventilation - received Kayexalate 30 gms po X 1 - stop lasix but continue conservative volume management - continue care as below otherwise; - Daily SAT and SBT assessment as tolerated - continue to wean supplemental oxygen for target O2 sat's > 90% acutely - VAP bundle addressed - continue lung protective strategies - continue bronchodilators with pulmonary hygiene per RT - wean per pulmonary driven protocols otherwise - avoid nephrotoxins, renally dose all medications - continue accuchecks with glycemic control per SSI (While critically ill target blood glucose of 140-180 mg/dL; avoid hypoglycemia) - sedation prn for target RASS 0 to -1 - continue to avoid benzodiazepine's, reduce the possibility of delirium - completed AB's per ID rec's - prn analgesia per CPOT score - Maintenance of sleep-wake cycle, avoid delirium - continue enteral nutritional support at goal rate as tolerated - G.I. & VTE prophylaxis - PT/OT/ROM exercises - continue mobility protocols for pressure ulcer prophylaxis - Monitor hemodynamics closely - continue other care per attending / other consultants - discharge planning ongoing concurrently COVID SPECIFIC INTERVENTIONS: - COVID-19 test negative .... Re-evaluate in am & prn CONDITION: CRITICAL PROGNOSIS: GUARDED CODE STATUS: FULL CODE The high probability of a clinically significant, sudden or life-threatening deterioration of the [respiratory, cardiovascular & neurologic] system(s) required my full and direct attention, intervention and personal management. The aggregate critical care time was [32] minutes without overlap. Time includes spent on; [x] Data Review and interpretation [x] Patient assessment and monitoring of vital signs [x] Documentation [x] Medication orders and management Subjective Date of service: 11/24/21 Principal diagnosis: AE-COPD; AHRF; CHF (? new onset); CAP; CAD; Obesity; HTNsive Emergency Interval history: Patient is seen today for: AE-COPD; Acute hypoxemic respiratory failure; CHF (? new onset); CAP; CAD; Obesity; HTNsive Emergency Seen and examined at bedside; 24hour events reviewed; nursing and respiratory care staff consulted; no adverse overnight events reported to me; remains on MVS; remains delirious during SAT's but tolerating SBT via PSV better with p- supp now down to 10 cm H2O Objective Vital Signs - 12hr 11/24/21 11/24/21 11/24/21 00:45 01:01 02:01 Temperature Pulse Rate 90 91 H 89 Pulse Rate [ Anterior Bilateral Throughout] Pulse Rate [ From Monitor] Respiratory 16 16 Rate Respiratory Rate [Anterior Bilateral Throughout] Blood Pressure 122/44 144/57 143/60 O2 Sat by Pulse 96 96 93 Oximetry 11/24/21 11/24/21 11/24/21 03:01 04:00 04:01 Temperature 99.0 F Pulse Rate 109 H 87 86 Pulse Rate [ Anterior Bilateral Throughout] Pulse Rate [ 85 From Monitor] Respiratory 20 14 13 Rate Respiratory Rate [Anterior Bilateral Throughout] Blood Pressure 132/58 137/51 O2 Sat by Pulse 90 96 94 Oximetry 11/24/21 11/24/21 11/24/21 04:47 05:01 06:01 Temperature Pulse Rate 86 82 82 Pulse Rate [ Anterior Bilateral Throughout] Pulse Rate [ From Monitor] Respiratory 13 13 Rate Respiratory Rate [Anterior Bilateral Throughout] Blood Pressure 137/51 136/51 148/55 O2 Sat by Pulse 94 94 93 Oximetry 11/24/21 11/24/21 11/24/21 07:00 08:00 08:50 Temperature 99.9 F H Pulse Rate 91 H 88 85 Pulse Rate [ Anterior Bilateral Throughout] Pulse Rate [ From Monitor] Respiratory 22 12 Rate Respiratory Rate [Anterior Bilateral Throughout] Blood Pressure 146/57 123/54 116/53 O2 Sat by Pulse 96 93 95 Oximetry 11/24/21 11/24/21 11/24/21 09:00 10:00 10:15 Temperature Pulse Rate 86 87 86 Pulse Rate [ Anterior Bilateral Throughout] Pulse Rate [ From Monitor] Respiratory 14 13 18 Rate Respiratory Rate [Anterior Bilateral Throughout] Blood Pressure 116/53 108/51 O2 Sat by Pulse 92 92 93 Oximetry 11/24/21 11/24/21 10:31 11:59 Temperature Pulse Rate 96 H Pulse Rate [ 92 H Anterior Bilateral Throughout] Pulse Rate [ From Monitor] Respiratory 16 Rate Respiratory 17 Rate [Anterior Bilateral Throughout] Blood Pressure 144/50 O2 Sat by Pulse 95 Oximetry Constitutional: no acute distress, other (elderly obese female with mildly increased respiratory effort at rest on MVS) Eyes: non-icteric ENT: oropharynx moist, other (ETT 24 cm EMIL) Neck: supple, no lymphadenopathy, no JVD, other (large circumference) Effort: mildly labored Ascultation: Bilateral: diminished breath sounds, rhonchi Percussion: Bilateral: not dull Cardiovascular: regular rate and rhythm Gastrointestinal: normoactive bowel sounds, soft, non-tender, non-distended (protuberant) Integumentary: normal Extremities: no cyanosis, no edema, pulses normal, no ischemia or petechiae Neurologic: non-focal exam (grossly), pupils equal and round, CN II-XII normal, other (sedated) Psychiatric: other (agitated during sedation vacations) CBC and BMP: 11/24/21 08:33 11/24/21 08:33 ABG, PT/INR, D-dimer: ABG ABG pH 7.362 pH Units (7.350-7.450) 11/24/21 09:00 ABG pCO2 72.3 mm Hg 11/24/21 09:00 ABG pO2 69.1 mm Hg (80.0-90.0) L 11/24/21 09:00 ABG O2 Saturation 93.2 % (95.0-99.0) L 11/24/21 09:00 PT/INR, D-dimer PT 12.9 Sec. (12.2-14.9) 11/18/21 00:19 INR 0.88 (0.87-1.13) 11/18/21 00:19 D-Dimer 464.80 ng/mlDDU (0-234) H 11/18/21 05:15 Abnormal lab findings: Abnormal Labs 11/18/21 11/18/21 11/18/21 00:01 00:19 00:19 WBC 15.6 H RBC 5.59 H Hgb 14.8 H Hct 49.8 H MCH 27 L MCHC RDW 16.9 H Lymph % (Auto) [place] % (Auto) Lymph # (Auto) [place] # (Auto) Seg Neutrophils % Lymphocytes % (Manual) 4.0 L Seg Neutrophils # Seg Neutrophils # Man 14.7 H Lymphocytes # (Manual) 0.6 L D-Dimer ABG pH ABG pO2 ABG HCO3 ABG O2 Saturation ABG Base Excess ABG Hemoglobin Oxyhemoglobin Sodium Potassium Carbon Dioxide BUN Creatinine Glucose 148 H POC Glucose 151 H Calcium Phosphorus Magnesium Lactate Dehydrogenase Triglycerides Urine WBC (Auto) Salicylates Acetaminophen 11/18/21 11/18/21 11/18/21 00:19 00:19 00:19 WBC RBC Hgb Hct MCH MCHC RDW Lymph % (Auto) [place] % (Auto) Lymph # (Auto) [place] # (Auto) Seg Neutrophils % Lymphocytes % (Manual) Seg Neutrophils # Seg Neutrophils # Man Lymphocytes # (Manual) D-Dimer ABG pH ABG pO2 ABG HCO3 ABG O2 Saturation ABG Base Excess ABG Hemoglobin Oxyhemoglobin Sodium Potassium Carbon Dioxide BUN Creatinine Glucose POC Glucose Calcium Phosphorus Magnesium 2.50 H Lactate Dehydrogenase Triglycerides Urine WBC (Auto) Salicylates < 0.3 L Acetaminophen 5.0 L 11/18/21 11/18/21 11/18/21 01:03 02:00 05:15 WBC RBC Hgb Hct MCH MCHC RDW Lymph % (Auto) [place] % (Auto) Lymph # (Auto) [place] # (Auto) Seg Neutrophils % Lymphocytes % (Manual) Seg Neutrophils # Seg Neutrophils # Man Lymphocytes # (Manual) D-Dimer 464.80 H ABG pH ABG pO2 ABG HCO3 35.8 H ABG O2 Saturation ABG Base Excess 7.8 H ABG Hemoglobin Oxyhemoglobin 91.9 L Sodium Potassium Carbon Dioxide BUN Creatinine Glucose POC Glucose Calcium Phosphorus Magnesium Lactate Dehydrogenase Triglycerides Urine WBC (Auto) 16.0 H Salicylates Acetaminophen 11/18/21 11/18/21 11/18/21 05:15 15:47 15:47 WBC 13.5 H RBC 5.60 H Hgb 14.9 H Hct 49.1 H MCH 27 L MCHC RDW 17.3 H Lymph % (Auto) 7.9 L [place] % (Auto) 10.1 H Lymph # (Auto) 1.1 L [place] # (Auto) 1.4 H Seg Neutrophils % 81.7 H Lymphocytes % (Manual) Seg Neutrophils # 11.0 H Seg Neutrophils # Man Lymphocytes # (Manual) D-Dimer ABG pH ABG pO2 ABG HCO3 ABG O2 Saturation ABG Base Excess ABG Hemoglobin Oxyhemoglobin Sodium Potassium Carbon Dioxide BUN Creatinine Glucose 138 H POC Glucose Calcium Phosphorus Magnesium Lactate Dehydrogenase 275 H Triglycerides Urine WBC (Auto) Salicylates Acetaminophen 11/18/21 11/18/21 11/19/21 18:45 23:33 04:58 WBC RBC Hgb Hct MCH MCHC RDW Lymph % (Auto) [place] % (Auto) Lymph # (Auto) [place] # (Auto) Seg Neutrophils % Lymphocytes % (Manual) Seg Neutrophils # Seg Neutrophils # Man Lymphocytes # (Manual) D-Dimer ABG pH ABG pO2 ABG HCO3 ABG O2 Saturation ABG Base Excess ABG Hemoglobin Oxyhemoglobin Sodium Potassium Carbon Dioxide BUN Creatinine Glucose 130 H POC Glucose 132 H 113 H Calcium Phosphorus Magnesium Lactate Dehydrogenase Triglycerides Urine WBC (Auto) Salicylates Acetaminophen 11/19/21 11/19/21 11/19/21 07:59 07:59 08:55 WBC 12.7 H RBC 5.29 H Hgb Hct 45.5 H MCH 26 L MCHC RDW 17.4 H Lymph % (Auto) 12.3 L [place] % (Auto) 9.6 H Lymph # (Auto) [place] # (Auto) 1.2 H Seg Neutrophils % 76.9 H Lymphocytes % (Manual) Seg Neutrophils # 9.7 H Seg Neutrophils # Man Lymphocytes # (Manual) D-Dimer ABG pH 7.518 H ABG pO2 77.6 L ABG HCO3 30.1 H ABG O2 Saturation ABG Base Excess 6.9 H ABG Hemoglobin Oxyhemoglobin Sodium Potassium 3.1 L D Carbon Dioxide BUN Creatinine Glucose 115 H POC Glucose Calcium 8.1 L Phosphorus Magnesium Lactate Dehydrogenase Triglycerides Urine WBC (Auto) Salicylates Acetaminophen 11/19/21 11/19/21 11/20/21 11:33 16:22 04:20 WBC 13.9 H RBC 5.44 H Hgb Hct 49.3 H MCH 26 L MCHC 29 L RDW 18.3 H Lymph % (Auto) [place] % (Auto) Lymph # (Auto) [place] # (Auto) Seg Neutrophils % Lymphocytes % (Manual) Seg Neutrophils # Seg Neutrophils # Man Lymphocytes # (Manual) D-Dimer ABG pH ABG pO2 ABG HCO3 ABG O2 Saturation ABG Base Excess ABG Hemoglobin Oxyhemoglobin Sodium Potassium Carbon Dioxide BUN Creatinine Glucose POC Glucose 119 H 112 H Calcium Phosphorus Magnesium Lactate Dehydrogenase Triglycerides Urine WBC (Auto) Salicylates Acetaminophen 11/20/21 11/20/21 11/20/21 04:20 11:07 12:02 WBC RBC Hgb Hct MCH MCHC RDW Lymph % (Auto) [place] % (Auto) Lymph # (Auto) [place] # (Auto) Seg Neutrophils % Lymphocytes % (Manual) Seg Neutrophils # Seg Neutrophils # Man Lymphocytes # (Manual) D-Dimer ABG pH 7.251 L ABG pO2 66.3 L ABG HCO3 30.2 H ABG O2 Saturation 91.8 L ABG Base Excess ABG Hemoglobin Oxyhemoglobin 89.4 L Sodium 147 H Potassium Carbon Dioxide BUN 25 H Creatinine Glucose POC Glucose 118 H Calcium Phosphorus 6.40 H Magnesium Lactate Dehydrogenase Triglycerides Urine WBC (Auto) Salicylates Acetaminophen 11/20/21 11/21/21 11/21/21 17:31 00:07 04:44 WBC 14.0 H RBC 5.08 H Hgb Hct 44.7 H MCH 26 L MCHC 29 L RDW 17.8 H Lymph % (Auto) [place] % (Auto) Lymph # (Auto) [place] # (Auto) Seg Neutrophils % Lymphocytes % (Manual) Seg Neutrophils # Seg Neutrophils # Man Lymphocytes # (Manual) D-Dimer ABG pH ABG pO2 ABG HCO3 ABG O2 Saturation ABG Base Excess ABG Hemoglobin Oxyhemoglobin Sodium Potassium Carbon Dioxide BUN Creatinine Glucose POC Glucose 139 H 147 H Calcium Phosphorus Magnesium Lactate Dehydrogenase Triglycerides Urine WBC (Auto) Salicylates Acetaminophen 11/21/21 11/21/21 11/21/21 04:44 06:06 11:45 WBC RBC Hgb Hct MCH MCHC RDW Lymph % (Auto) [place] % (Auto) Lymph # (Auto) [place] # (Auto) Seg Neutrophils % Lymphocytes % (Manual) Seg Neutrophils # Seg Neutrophils # Man Lymphocytes # (Manual) D-Dimer ABG pH ABG pO2 ABG HCO3 ABG O2 Saturation ABG Base Excess ABG Hemoglobin Oxyhemoglobin Sodium Potassium Carbon Dioxide BUN 20 H Creatinine Glucose 157 H POC Glucose 158 H 119 H Calcium Phosphorus Magnesium Lactate Dehydrogenase Triglycerides Urine WBC (Auto) Salicylates Acetaminophen 11/21/21 11/21/21 11/22/21 11:50 16:54 00:03 WBC RBC Hgb Hct MCH MCHC RDW Lymph % (Auto) [place] % (Auto) Lymph # (Auto) [place] # (Auto) Seg Neutrophils % Lymphocytes % (Manual) Seg Neutrophils # Seg Neutrophils # Man Lymphocytes # (Manual) D-Dimer ABG pH ABG pO2 61.8 L ABG HCO3 35.2 H ABG O2 Saturation 92.8 L ABG Base Excess 8.1 H ABG Hemoglobin Oxyhemoglobin 90.6 L Sodium Potassium Carbon Dioxide BUN Creatinine Glucose POC Glucose 149 H 133 H Calcium Phosphorus Magnesium Lactate Dehydrogenase Triglycerides Urine WBC (Auto) Salicylates Acetaminophen 11/22/21 11/22/21 11/22/21 04:39 04:39 04:39 WBC 14.1 H RBC Hgb Hct 43.4 H MCH 26 L MCHC RDW 17.9 H Lymph % (Auto) [place] % (Auto) Lymph # (Auto) [place] # (Auto) Seg Neutrophils % Lymphocytes % (Manual) Seg Neutrophils # Seg Neutrophils # Man Lymphocytes # (Manual) D-Dimer ABG pH ABG pO2 ABG HCO3 ABG O2 Saturation ABG Base Excess ABG Hemoglobin Oxyhemoglobin Sodium Potassium Carbon Dioxide 33 H BUN Creatinine Glucose 152 H POC Glucose Calcium Phosphorus Magnesium Lactate Dehydrogenase Triglycerides 185 H Urine WBC (Auto) Salicylates Acetaminophen 11/22/21 11/22/21 11/22/21 05:02 10:56 11:31 WBC RBC Hgb Hct MCH MCHC RDW Lymph % (Auto) [place] % (Auto) Lymph # (Auto) [place] # (Auto) Seg Neutrophils % Lymphocytes % (Manual) Seg Neutrophils # Seg Neutrophils # Man Lymphocytes # (Manual) D-Dimer ABG pH ABG pO2 55.3 L ABG HCO3 39.4 H ABG O2 Saturation 89.5 L ABG Base Excess 11.7 H ABG Hemoglobin Oxyhemoglobin 87.2 L Sodium Potassium Carbon Dioxide BUN Creatinine Glucose POC Glucose 158 H 116 H Calcium Phosphorus Magnesium Lactate Dehydrogenase Triglycerides Urine WBC (Auto) Salicylates Acetaminophen 11/22/21 11/22/21 11/23/21 17:29 23:22 04:49 WBC 13.6 H RBC 5.18 H Hgb Hct 45.6 H MCH 25 L MCHC 29 L RDW 17.5 H Lymph % (Auto) [place] % (Auto) Lymph # (Auto) [place] # (Auto) Seg Neutrophils % Lymphocytes % (Manual) Seg Neutrophils # Seg Neutrophils # Man Lymphocytes # (Manual) D-Dimer ABG pH ABG pO2 ABG HCO3 ABG O2 Saturation ABG Base Excess ABG Hemoglobin Oxyhemoglobin Sodium Potassium Carbon Dioxide BUN Creatinine Glucose POC Glucose 129 H 171 H Calcium Phosphorus Magnesium Lactate Dehydrogenase Triglycerides Urine WBC (Auto) Salicylates Acetaminophen 11/23/21 11/23/21 11/23/21 04:49 11:53 16:22 WBC RBC Hgb Hct MCH MCHC RDW Lymph % (Auto) [place] % (Auto) Lymph # (Auto) [place] # (Auto) Seg Neutrophils % Lymphocytes % (Manual) Seg Neutrophils # Seg Neutrophils # Man Lymphocytes # (Manual) D-Dimer ABG pH ABG pO2 61.8 L ABG HCO3 40.9 H ABG O2 Saturation 93.4 L ABG Base Excess 14.6 H ABG Hemoglobin 6.9 L Oxyhemoglobin 90.2 L Sodium 146 H Potassium Carbon Dioxide 36 H BUN 21 H Creatinine Glucose 155 H POC Glucose 166 H Calcium Phosphorus Magnesium Lactate Dehydrogenase Triglycerides Urine WBC (Auto) Salicylates Acetaminophen 11/23/21 11/23/21 11/24/21 17:11 23:07 05:03 WBC RBC Hgb Hct MCH MCHC RDW Lymph % (Auto) [place] % (Auto) Lymph # (Auto) [place] # (Auto) Seg Neutrophils % Lymphocytes % (Manual) Seg Neutrophils # Seg Neutrophils # Man Lymphocytes # (Manual) D-Dimer ABG pH ABG pO2 ABG HCO3 ABG O2 Saturation ABG Base Excess ABG Hemoglobin Oxyhemoglobin Sodium Potassium Carbon Dioxide BUN Creatinine Glucose POC Glucose 142 H 197 H 183 H Calcium Phosphorus Magnesium Lactate Dehydrogenase Triglycerides Urine WBC (Auto) Salicylates Acetaminophen 11/24/21 11/24/21 11/24/21 08:33 08:33 09:00 WBC RBC Hgb Hct 43.6 H MCH 26 L MCHC RDW 18.0 H Lymph % (Auto) [place] % (Auto) Lymph # (Auto) [place] # (Auto) Seg Neutrophils % Lymphocytes % (Manual) Seg Neutrophils # Seg Neutrophils # Man Lymphocytes # (Manual) D-Dimer ABG pH ABG pO2 69.1 L ABG HCO3 40.1 H ABG O2 Saturation 93.2 L ABG Base Excess 11.9 H ABG Hemoglobin Oxyhemoglobin 90.3 L Sodium Potassium 5.3 H D Carbon Dioxide 36 H BUN 25 H Creatinine 0.5 L Glucose 185 H POC Glucose Calcium Phosphorus Magnesium Lactate Dehydrogenase Triglycerides Urine WBC (Auto) Salicylates Acetaminophen Chest x-ray: image reviewed ([id number] basilar infiltrates) Allied health notes reviewed: nursing
[2021-11-24] MEDS ORDERED: SODIUM POLYSTYRENE 15 GM/60 ML ORAL LIQD PO SCH (12:30)
[2021-11-24] MEDS: ACETAMINOPHEN 325 MG/10.15 ML ORAL LIQD UNIT DOSE FEEDTUBE PRN (12:32)
[2021-11-24 12:40] LABS: ABG Base Excess 12.3 mmol/L (-2.0-3.0); ABG HCO3 41.6 mmol/L (20.0-26.0); ABG Methemoglobin 0.5 % (0.0-1.5); ABG PCO2 74.3 mm Hg; ABG PH 7.366 pH Units (7.350-7.450); ABG PO2 86.2 mm Hg (80.0-90.0)
--- NOTE | 2021-11-24 16:39 | Progress Note ---
Assessment and Plan Assessment and plan: This is a 81-year-old AA female with CAD, CHF, pulmonary hypertension, COPD, and tobacco abuse admitted for acute hypoxemic respiratory failure 2/2 of bilateral pneumonia vs COPD exacerbation/pulmonary edema requiring intubation and ventilatory support. Neuro: Agitation, acute toxic metabolic encephalopathy -Sedated with propofol and fentanyl -Goal RASS -2 -Seroquel twice daily -SAT/SBT when appropriate -Maintain sleep-wake cycle -Avoid benzodiazepine -Reduce risk of delirium Cardio: Acute CHF, hypertensive emergency, h/o CAD, NM, hyperlipidemia -Presented with systolic blood pressure in the 240s in the ED -S/p Cardene drip -11/22 echocardiogram with mild concentric left trickle hypertrophy, LVEF 60 to 65%, left pleural effusion -Admit BMP 867 -Lasix stopped today -Blood pressure monitor per protocol -As needed hydralazine for SBP greater than 160 Pulmonary: Acute hypoxic respiratory failure, acute exacerbation of COPD, h/o COPD -CCM consulted, appreciate recommendation -Intubated in the ED on 11/18 with 8.0 ETT at 22 at the lips -A.m. vent settings: Assist-control rate 12, TV 500, PEEP 6, 40% FiO2 -See RT notes for titration -11/23 PSV all day and rested ON on AC -11/24 PSV and rest On on AC -A.m. ABG and CXR noted -VAP bundle -Pulmicort and Brovana -Continue SPO2 monitoring GI: MO, h/o GERD -Nutrition consult for tube feeding -PPI -BR: Senokot -24-hour -439 mL : Urinary retention, metabolic alkalosis, hypernatremia, hypekalemia -Briggs reinserted on 11/20 due to retention -remove today and bladder scan q 6 hours -replace briggs AFTER third straight cath if needed -straight cath for Urine volume >350ml -Strict intake and output -Trend BMP -Intervene as needed Endo: NAD -Avoid hypoglycemia -Accu-Cheks every 6 hours -SSI ID: Bilateral pneumonia, UTI -Evidenced on CXR and UA -COVID-19 PCR negative -Follow culture data -Blood culture, urine culture, tracheal aspirate with no growth to date -Follow WBC and fever curve -s/p azithromycin and Rocephin Heme: Leukocytosis -Monitor CBC -Transfuse to hemoglobin less than 7 -SCD to bilateral lower extremities while in bed -Lovenox subcu The high probability of a clinically significant, sudden or life threatening deterioration of the [Neuro, Resp, CV] system(s) required my full and direct attention, intervention and personal management. The aggregate critical care time was [70] minutes. This time is in addition to time spent performing reported procedures but includes the following: [x] Data Review and interpretation [x] Patient assessment and monitoring of vital signs [x] Documentation [x] Medication orders and management Disposition Plan: icu Total Time Spent with Patient (Minutes): 70 History Interval history: This is a 81-year-old female with CAD s/p NM, GERD, chronic back pain, HLD, neuropathy, emphysema, CHF, pulmonary HTN, COPD who presents to the emergency department on 11/18 via EMS for altered mental status. According to EMS patient was having difficulty breathing and minimally responsive but in respiratory distress initially. Respiratory status was said to have worsened in route to the hospital and the patient had been given Solu-Medrol magnesium IV however he developed pinpoint pupils and was given Narcan with improvement. Work-up in the emergency department revealed leukocytosis, elevated D-dimer, 8 UTI on UA, CXR showed bilateral pulmonary opacities possibly reflecting edema or atelectasis or pneumonia, CT chest showed evidence of pulmonary hypertension with dense con solidation along the left lower lobe concerning for pneumonia and mild interstitial pulmonary edema. Patient was admitted to the hospital service with acute hypoxic respiratory failure, acute COPD exacerbation and UTI to the ICU with consults to CCM. Hospital Course to Date: 11/18: Patient was seen and examined in the ED. Patient is intubated and sedated on propofol and versed gtt, RASS -3 to -4. Patient is in hypertensive emergency this am, SBP in the 240s, cardene gtt was initiated, maintain SBP less than 160. Leukocytosis noted, UA significant for UTI. Lactic, procal, and CRP are normal. Patient remains afebrile, continue empiric IV abx for now. Tracheal aspirate ordered, blood culture is pending. Continue to f/u on culture data. 11/19: Patient remains intubated and sedated. Patient did not tolerate sedation vacation this am, became tachycardic, hypertensive, with elevated RR and SPO2 in the low 80s. Sedation back on, continue to wean sedation as tolerated for RASS goal of 0 to -2. Pateimt is off cardene gtt, PRN hydralazine for SPO2 above 160. Low K repleted, repeat labs in the am. 11/20: Remains on the vent and sedated, RASS -3. Plan to wean down on sedation, might need to add Seroquel if patient is not tolerating sedation. Hypernatremia and increased BUN/Cr. this am, patient is on lasix BID. Will discuss with [facility] to possibly hold or decreased IV lasix for now, FWF added for high Na. Urinary retention post briggs removal, bladder scan and straight cath per protocol. 11/21: Patient remains on the vent, unable to wean sedation at this time, Seroquel added. Titrate sedation as tolerated for RASS of 0 to -2. Briggs was reinserted overnight for urinary retention, kidney function is stable. 11/22: [facility] reduced FiO2. We will start weaning tomorrow. No acute events re ported overnight. 11/23: Patient spiked a fever overnight and was cultured this morning. Attempted CPAP trial again today. An ABG obtained post trial which has been given to [facility]. Slight hypernatremia noted. 11/24: I updated patient's son today, Kwame Salamanca at [phone]. Lasix stopped today. Patient placed on CPAP trial. She lasted on CPAP all day yesterday and was rested overnight on assist control. Given Kayexalate today due to hyperkalemia. Hospitalist Physical - Constitutional Vitals: Temp Pulse Resp BP Pulse Ox 100.3 F H 88 18 139/54 94 11/24/21 12:00 11/24/21 15:59 11/24/21 14:00 11/24/21 15:59 11/24/21 15:59 General appearance: Present: no acute distress, other (Intubated and Sedated) - EENT Eyes: Present: PERRL, EOM intact ENT: hearing intact, clear oral mucosa, dentition normal - Neck Neck: Present: normal ROM - Respiratory Respiratory effort: normal Respiratory: bilateral: diminished - Cardiovascular Rhythm: regular Heart Sounds: Present: S1 & S2. Absent: systolic murmur - Extremities Extremities: no ischemia, pulses intact, pulses symmetrical, No edema, normal temperature, normal color Peripheral Pulses: within normal limits - Abdominal General gastrointestinal: soft, non-tender, non-distended, normal bowel sounds - Integumentary Integumentary: Present: warm, dry - Psychiatric Psychiatric: cooperative - Neurologic Neurologic: CNII-XII intact, moves all extremities - Allied Health Allied health notes reviewed: nursing, RT, social work HEART Score - HEART Score Troponin: Troponin T < 0.010 ng/mL (0.00-0.029) 11/18/21 03:25 Results - Labs CBC & Chem 7: 11/24/21 08:33 11/24/21 08:33 Labs: Laboratory Last Values WBC 10.5 K/mm3 (4.5-11.0) 11/24/21 08:33 RBC 4.96 M/mm3 (3.65-5.03) 11/24/21 08:33 Hgb 13.0 gm/dl (10.1-14.3) 11/24/21 08:33 Hct 43.6 % (30.3-42.9) H 11/24/21 08:33 MCV 88 fl (79-97) 11/24/21 08:33 MCH 26 pg (28-32) L 11/24/21 08:33 MCHC 30 % (30-34) 11/24/21 08:33 RDW 18.0 % (13.2-15.2) H 11/24/21 08:33 Plt Count 261 K/mm3 (140-440) 11/24/21 08:33 Lymph % (Auto) 12.3 % (13.4-35.0) L 11/19/21 07:59 [place] % (Auto) 9.6 % (0.0-7.3) H 11/19/21 07:59 Eos % (Auto) 0.7 % (0.0-4.3) 11/19/21 07:59 Baso % (Auto) 0.5 % (0.0-1.8) 11/19/21 07:59 Lymph # (Auto) 1.6 K/mm3 (1.2-5.4) 11/19/21 07:59 [place] # (Auto) 1.2 K/mm3 (0.0-0.8) H 11/19/21 07:59 Eos # (Auto) 0.1 K/mm3 (0.0-0.4) 11/19/21 07:59 Baso # (Auto) 0.1 K/mm3 (0.0-0.1) 11/19/21 07:59 Add Manual Diff Complete 11/18/21 00:19 Total Counted 100 11/18/21 00:19 Seg Neutrophils % 76.9 % (40.0-70.0) H 11/19/21 07:59 Lymphocytes % (Manual) 4.0 % (13.4-35.0) L 11/18/21 00:19 Monocytes % (Manual) 2.0 % (0.0-7.3) 11/18/21 00:19 Nucleated RBC % Not Reportable 11/18/21 00:19 Seg Neutrophils # 9.7 K/mm3 (1.8-7.7) H 11/19/21 07:59 Seg Neutrophils # Man 14.7 K/mm3 (1.8-7.7) H 11/18/21 00:19 Band Neutrophils # 0.0 K/mm3 11/18/21 00:19 Lymphocytes # (Manual) 0.6 K/mm3 (1.2-5.4) L 11/18/21 00:19 Abs React Lymphs (Man) 0.0 K/mm3 11/18/21 00:19 Monocytes # (Manual) 0.3 K/mm3 (0.0-0.8) 11/18/21 00:19 Eosinophils # (Manual) 0.0 K/mm3 (0.0-0.4) 11/18/21 00:19 Basophils # (Manual) 0.0 K/mm3 (0.0-0.1) 11/18/21 00:19 Metamyelocytes # 0.0 K/mm3 11/18/21 00:19 Myelocytes # 0.0 K/mm3 11/18/21 00:19 Promyelocytes # 0.0 K/mm3 11/18/21 00:19 Blast Cells # 0.0 K/mm3 11/18/21 00:19 WBC Morphology Not Reportable 11/18/21 00:19 Hypersegmented Neuts Not Reportable 11/18/21 00:19 Hyposegmented Neuts Not Reportable 11/18/21 00:19 Hypogranular Neuts Not Reportable 11/18/21 00:19 Smudge Cells Not Reportable 11/18/21 00:19 Toxic Granulation Not Reportable 11/18/21 00:19 Toxic Vacuolation Not Reportable 11/18/21 00:19 Dohle Bodies Not Reportable 11/18/21 00:19 Pelger-Huet Anomaly Not Reportable 11/18/21 00:19 Luis Rods Not Reportable 11/18/21 00:19 Platelet Estimate Consistent w auto 11/18/21 00:19 Clumped Platelets Not Reportable 11/18/21 00:19 Plt Clumps, EDTA Not Reportable 11/18/21 00:19 Large Platelets Not Reportable 11/18/21 00:19 Giant Platelets Not Reportable 11/18/21 00:19 Platelet Satelliting Not Reportable 11/18/21 00:19 Plt Morphology Comment Not Reportable 11/18/21 00:19 RBC Morphology Not Reportable 11/18/21 00:19 Dimorphic RBCs Not Reportable 11/18/21 00:19 Polychromasia Not Reportable 11/18/21 00:19 Hypochromasia Not Reportable 11/18/21 00:19 Poikilocytosis Not Reportable 11/18/21 00:19 Anisocytosis 1+ 11/18/21 00:19 Microcytosis Not Reportable 11/18/21 00:19 Macrocytosis Few 11/18/21 00:19 Spherocytes Not Reportable 11/18/21 00:19 Pappenheimer Bodies Not Reportable 11/18/21 00:19 Sickle Cells Not Reportable 11/18/21 00:19 Target Cells Not Reportable 11/18/21 00:19 Tear Drop Cells Not Reportable 11/18/21 00:19 Ovalocytes Not Reportable 11/18/21 00:19 Helmet Cells Not Reportable 11/18/21 00:19 Connelly-Williford Bodies Not Reportable 11/18/21 00:19 Totz Rings Not Reportable 11/18/21 00:19 Yumi Cells Not Reportable 11/18/21 00:19 Bite Cells Not Reportable 11/18/21 00:19 Crenated Cell Not Reportable 11/18/21 00:19 Elliptocytes Not Reportable 11/18/21 00:19 Acanthocytes (Spur) Not Reportable 11/18/21 00:19 Rouleaux Not Reportable 11/18/21 00:19 Hemoglobin C Crystals Not Reportable 11/18/21 00:19 Schistocytes Not Reportable 11/18/21 00:19 Malaria parasites Not Reportable 11/18/21 00:19 Shahriar Bodies Not Reportable 11/18/21 00:19 Hem Pathologist Commnt No 11/18/21 00:19 PT 12.9 Sec. (12.2-14.9) 11/18/21 00:19 INR 0.88 (0.87-1.13) 11/18/21 00:19 APTT 29.2 Sec. (24.2-36.6) 11/18/21 00:19 D-Dimer 464.80 ng/mlDDU (0-234) H 11/18/21 05:15 ABG pH 7.366 pH Units (7.350-7.450) 11/24/21 12:00 ABG pCO2 74.3 mm Hg 11/24/21 12:00 ABG pO2 86.2 mm Hg (80.0-90.0) 11/24/21 12:00 ABG HCO3 41.6 mmol/L (20.0-26.0) H 11/24/21 12:00 ABG O2 Saturation 96.0 % (95.0-99.0) 11/24/21 12:00 ABG O2 Content 20.6 (0.0-44) 11/24/21 12:00 ABG Base Excess 12.3 mmol/L (-2.0-3.0) H 11/24/21 12:00 ABG Hemoglobin 15.7 gm/dl (12.0-16.0) 11/24/21 12:00 ABG Carboxyhemoglobin 2.5 % (0.0-5.0) 11/24/21 12:00 ABG Methemoglobin 0.5 % (0.0-1.5) 11/24/21 12:00 Oxyhemoglobin 93.1 % (95.0-99.0) L 11/24/21 12:00 FiO2 40 % 11/24/21 12:00 Sodium 144 mmol/L (137-145) 11/24/21 08:33 Potassium 5.3 mmol/L (3.6-5.0) H D 11/24/21 08:33 Chloride 98.5 mmol/L (98-107) 11/24/21 08:33 Carbon Dioxide 36 mmol/L (22-30) H 11/24/21 08:33 Anion Gap 15 mmol/L 11/24/21 08:33 BUN 25 mg/dL (7-17) H 11/24/21 08:33 Creatinine 0.5 mg/dL (0.6-1.2) L 11/24/21 08:33 Estimated GFR > 60 ml/min 11/24/21 08:33 BUN/Creatinine Ratio 50 % 11/24/21 08:33 Glucose 185 mg/dL (65-100) H 11/24/21 08:33 POC Glucose 183 mg/dL (70-105) H 11/24/21 05:03 Hemoglobin A1c 5.9 % (4-6) 11/19/21 07:59 Lactic Acid 1.40 mmol/L (0.7-2.0) 11/18/21 00:19 Calcium 9.7 mg/dL (8.4-10.2) 11/24/21 08:33 Phosphorus 4.20 mg/dL (2.5-4.5) 11/23/21 04:49 Magnesium 1.90 mg/dL (1.7-2.3) 11/23/21 04:49 Total Bilirubin 0.40 mg/dL (0.1-1.2) 11/18/21 00:19 Direct Bilirubin < 0.2 mg/dL (0-0.2) 11/18/21 00:19 Indirect Bilirubin 0.2 mg/dL 11/18/21 00:19 AST 22 units/L (5-40) 11/18/21 00:19 ALT 25 units/L (7-56) 11/18/21 00:19 Alkaline Phosphatase 99 units/L (35-129) 11/18/21 00:19 Ammonia 54.0 umol/L (25-60) 11/18/21 00:19 Lactate Dehydrogenase 275 units/L (91-180) H 11/18/21 05:15 Troponin T < 0.010 ng/mL (0.00-0.029) 11/18/21 03:25 C-Reactive Protein 0.70 mg/dL (0.00-1.30) 11/18/21 15:47 NT-Pro-B Natriuret Pep 867.7 pg/mL (0-900) 11/18/21 00:19 Total Protein 7.4 g/dL (6.3-8.2) 11/18/21 00:19 Albumin 4.0 g/dL (3.9-5) 11/18/21 00:19 Albumin/Globulin Ratio 1.2 % 11/18/21 00:19 Triglycerides 185 mg/dL (2-149) H 11/22/21 04:39 Lipase 13 units/L (13-60) 11/18/21 00:19 Procalcitonin 0.12 ng/mL (<0.15) 11/18/21 05:15 Urine Color Yellow (Yellow) 11/23/21 12:24 Urine Turbidity Clear (Clear) 11/23/21 12:24 Urine pH 7.0 (5.0-7.0) 11/23/21 12:24 Ur Specific [place] 1.018 (1.003-1.030) 11/23/21 12:24 Urine Protein <15 mg/dl mg/dL (Negative) 11/23/21 12:24 Urine Glucose (UA) Neg mg/dL (Negative) 11/23/21 12:24 Urine Ketones Neg mg/dL (Negative) 11/23/21 12:24 Urine Blood Neg (Negative) 11/23/21 12:24 Urine Nitrite Neg (Negative) 11/23/21 12:24 Urine Bilirubin Neg (Negative) 11/23/21 12:24 Urine Urobilinogen 4.0 mg/dL (<2.0) 11/23/21 12:24 Ur Leukocyte Esterase Neg (Negative) 11/23/21 12:24 Urine WBC (Auto) 1.0 /HPF (0.0-6.0) 11/23/21 12:24 Urine RBC (Auto) 1.0 /HPF (0.0-6.0) 11/23/21 12:24 U Epithel Cells (Auto) 1.0 /HPF (0-13.0) 11/18/21 01:03 Hyaline Casts 3 /LPF 11/18/21 01:03 Urine Mucus Few /HPF 11/18/21 01:03 Salicylates < 0.3 mg/dL (2.8-20.0) L 11/18/21 00:19 Urine Opiates Screen Negative 11/18/21 01:03 Urine Methadone Screen Negative 11/18/21 01:03 Acetaminophen 5.0 ug/mL (10.0-30.0) L 11/18/21 00:19 Ur Barbiturates Screen Negative 11/18/21 01:03 Ur Phencyclidine Scrn Negative 11/18/21 01:03 Ur Amphetamines Screen Negative 11/18/21 01:03 U Benzodiazepines Scrn Negative 11/18/21 01:03 Urine Cocaine Screen Negative 11/18/21 01:03 U Marijuana (THC) Screen Negative 11/18/21 01:03 Drugs of Abuse Note Disclamer 11/18/21 01:03 Plasma/Serum Alcohol < 0.01 % (0-0.07) 11/18/21 00:19 Coronavirus (PCR) Negative (Negative) 11/18/21 Unknown Microbiology: Microbiology 11/23/21 12:27 Peripheral/Venous Blood Culture - Preliminary NO GROWTH AFTER 24 HOURS 11/23/21 12:27 Peripheral/Venous Blood Culture - Preliminary NO GROWTH AFTER 24 HOURS 11/19/21 12:46 Tracheal Aspirate Sputum Culture - Final Lea Albicans Briggs/IV: Voiding Method Indwelling Catheter Active Medications - Current Medications Current Medications: Generic Name Dose Route Start Last Admin Trade Name Freq PRN Reason Stop Dose Admin Acetaminophen 650 mg 11/18/21 03:10 11/22/21 19:49 Acetaminophen 650 Mg Rect Supp AR 650 mg Q6H PRN Administration Pain MILD(1-3)/Fever >100.5/MONTIEL Acetaminophen 650 mg 11/23/21 00:56 11/24/21 12:32 Acetaminophen 325 Mg/10.15 Ml Oral Liqd Unit Dose FEEDTUBE 650 mg Q6H PRN Administration Non Cardiac Pain or Temp>100.5 Lipase/Protease/Amylase 1 each 11/18/21 16:10 Lipase 10,500/Protease 25,000/Amylase 43,750 (Units) Dr Cross FEEDTUBE PRN PRN For Clogged Feeding Tube Arformoterol Tartrate 15 mcg 11/18/21 20:00 11/24/21 10:31 Arformoterol 15 Mcg/2 Ml Nebu IH 15 mcg Q12HRT PAULINA Administration Budesonide 0.5 mg 11/18/21 20:00 11/24/21 10:31 Budesonide 0.5 Mg/2 Ml Nebu IH 0.5 mg Q12HRT PAULINA Administration Dextrose 50 ml 11/18/21 10:40 Dextrose 50% In Water (25gm) 50 Ml Syringe IV Q30MIN PRN Hypoglycemia Protocol Enoxaparin Sodium 40 mg 11/19/21 22:00 11/23/21 21:36 Enoxaparin 40 Mg/0.4 Ml Inj SUB-Q 40 mg QDAY@2200 [facility] Administration Protocol Famotidine 20 mg 11/20/21 10:00 11/24/21 10:32 Famotidine 20 Mg Tab FEEDTUBE 20 mg BID PAULINA Administration Fentanyl 50 mcg 11/18/21 13:10 11/24/21 03:30 Fentanyl 100 Mcg/2 Ml Inj IV 50 mcg Q10MIN PRN Administration ANALGESIA Hydralazine HCl 10 mg 11/18/21 10:44 11/23/21 21:54 Hydralazine 20 Mg/1 Ml Inj IV 10 mg Q4HR PRN Administration Hypertension Hydrophilic Ointment 1 applic 11/18/21 15:26 Lip Therapy Vaseline TP Q2HR PRN Dry Lips Propofol 1,000 mg in 100 mls @ 2.55 mls/hr 11/18/21 02:00 11/22/21 18:13 Diprivan 10 Mg/Ml IV Infused TITR PAULINA Titration Protocol 5 MCG/KG/MIN Fentanyl Citrate 2,000 mcg in 100 mls @ 4.25 mls/hr 11/18/21 14:00 11/24/21 10:32 Fentanyl Drip Premix IV 3 mcg/kg/hr TITR PAULINA 12.75 mls/hr Administration Protocol 1 MCG/KG/HR Insulin Human Lispro 0 unit 11/18/21 12:00 11/24/21 12:32 Insulin Lispro 100 Unit/Ml SUB-Q 1 unit Q6HR [facility] Administration Protocol Magnesium Hydroxide 30 ml 11/18/21 03:10 Magnesium Hydroxide (Mom) Oral Liqd Udc PO Q4H PRN Constipation Multi-Ingred Cream/Lotion/Oil/Oint 1 applic 11/18/21 15:26 Mineral Oil/Petrolatum, White Ophth Oint 3.5 Gm OU Q4HR PRN Dry Eye(s) Ondansetron HCl 4 mg 11/18/21 03:10 Ondansetron 4 Mg/2 Ml Inj IV Q8H PRN Nausea And Vomiting Quetiapine Fumarate 100 mg 11/21/21 22:00 11/24/21 10:32 Quetiapine 100 Mg Tab PO 100 mg BID PAULINA Administration Senna/Docusate Sodium 1 tab 11/18/21 22:00 11/23/21 21:36 Sennosides/Docusate Sodium 8.6/50 Mg Tab FEEDTUBE 1 tab BID PAULINA Administration Simple Syrup 15 ml 11/18/21 16:10 Simple Syrup 15 Ml FEEDTUBE PRN PRN Hypoglycemia Simple Syrup 30 ml 11/18/21 16:10 Simple Syrup 15 Ml FEEDTUBE PRN PRN Hypoglycemia Sodium Bicarbonate 325 mg 11/18/21 16:10 Sodium Bicarbonate 325 Mg Tab FEEDTUBE PRN PRN For Clogged Feeding Tube Nutrition/Malnutrition Assess - Dietary Evaluation Nutrition/Malnutrition Findings: Nutrition Notes Start: 11/18/21 10:45 Freq: Status: Active Protocol: Document 11/24/21 12:07 LEONARDO (Rec: 11/24/21 13:29 LEONARDO [id number]) Nutrition Notes Initial or Follow up Brief Note Current Diet TF-Promote @ 65 ml/hr (since D 11/18). Height 5 ft 8 in Weight 81.6 kg [place] Body Weight (kg) 63.63 BMI 27.3 Weight change and time frame No body weight change reported . Weight Status Overweight Subjective/Other Information RD consult for TF tolerance. TF continues as prescribed. Percent of energy/protein needs met: rescribed TF-Promote @ 65 ml/ hr provides for energy/protein needs (1,570 Kcal/98 g) during LOS; 95% Kcal; 96% AA. #1 Nutrition Diagnosis Inadequate oral intake Diagnosis Progress(for reassessment Continues documentation) Nutrition Intervention Nutrition Support: Continue Promote @ 65 ml/hr. Flush: 60 ml water Q 4 hr. Goal #1 Provide at least 75% of energy /protein needs through Enteral Feeding during LOS. Follow-Up By: 12/01/21 Additional Comments Continue monitoring TF tolerance, and BM.
[2021-11-24] MEDS: SENNOSIDES/DOCUSATE SODIUM 8.6/50 MG TAB FEEDTUBE SCH ×2 (18:14→21:00)
[2021-11-24] MEDS: ENOXAPARIN 40 MG/0.4 ML INJ SUB-Q SCH (21:00)
[2021-11-25 01:16] LABS: ABG Base Excess 14.7 mmol/L (-2.0-3.0); ABG HCO3 42.7 mmol/L (20.0-26.0); ABG Methemoglobin 0.4 % (0.0-1.5); ABG Oxygen Saturation 94.5 % (95.0-99.0); ABG PCO2 68.9 mm Hg; ABG PH 7.41 pH Units (7.350-7.450); ABG PO2 67.3 mm Hg (80.0-90.0)
[2021-11-25] MEDS: fentaNYL DRIP Premix 2,000 MCG/100 ML BAG IV SCH ×3 (02:36→20:09)
[2021-11-25 05:23] LABS: Mean Corpuscular HGB Conc 30 % (30-34); Mean Corpuscular Volume 88 fl (79-97); Platelet Count 293 K/mm3 (140-440); Red Blood Count 5.13 M/mm3 (3.65-5.03); Red Cell Distribution Width 17.7 % (13.2-15.2)
[2021-11-25 05:33] LABS: Hematocrit 45.1 % (30.3-42.9); Hemoglobin 13.4 gm/dl (10.1-14.3)
[2021-11-25 05:44] LABS: Blood Urea Nitrogen 26 mg/dL (7-17); Calcium 10.2 mg/dL (8.4-10.2); Hemolysis Index 5
[2021-11-25] MEDS: INSULIN LISPRO 100 UNIT/ML SUB-Q SCH ×3 (05:55→19:24)
[2021-11-25 06:05] LABS: BUN/Creatinine Ratio 52
[2021-11-25] MEDS: BUDESONIDE 0.5 MG/2 ML NEBU IH SCH ×2 (08:16→22:46)
[2021-11-25] MEDS: ARFORMOTEROL 15 MCG/2 ML NEBU IH SCH ×2 (08:16→22:46)
[2021-11-25] MEDS: QUEtiapine 100 MG TAB PO SCH ×2 (09:42→21:16)
[2021-11-25] MEDS: FAMOTIDINE 20 MG TAB FEEDTUBE SCH ×2 (09:42→21:15)
[2021-11-25] MEDS: fentaNYL 100 MCG/2 ML INJ IV PRN (09:49)
[2021-11-25] MEDS: SENNOSIDES/DOCUSATE SODIUM 8.6/50 MG TAB FEEDTUBE SCH ×2 (09:51→21:15)
[2021-11-25] MEDS ORDERED: FUROSEMIDE 20 MG/2 ML INJ IV SCH (10:00)
--- NOTE | 2021-11-25 12:39 | Progress Note ---
Assessment and Plan Acute exacerbation of chronic obstructive lung disease Acute hypoxemic respiratory failure Acute congestive heart failure exacerbation (? Flash Pulmonary edema) Community-acquired pneumonia Leukocytosis History of coronary artery disease Gastroesophageal reflux disease Arthritis Hyperlipidemia Obesity Elevated D-dimers Acute toxic metabolic encephalopathy Urinary tract infection Likely pulmonary hypertension Hypertensive emergency - hold fentanyl - NGT to LIS - tentative trial of extubation if more A&O in 2-4 hours - discontinue Bhandari catheter - continue SBT - resume Coreg 123.5 mg BID - continue care as below otherwise; - Daily SAT and SBT assessment as tolerated - continue to wean supplemental oxygen for target O2 sat's > 90% acutely - VAP bundle addressed - continue lung protective strategies - continue bronchodilators with pulmonary hygiene per RT - wean per pulmonary driven protocols otherwise - avoid nephrotoxins, renally dose all medications - continue accuchecks with glycemic control per SSI (While critically ill target blood glucose of 140-180 mg/dL; avoid hypoglycemia) - sedation prn for target RASS 0 to -1 - continue to avoid benzodiazepine's, reduce the possibility of delirium - completed AB's per ID rec's - prn analgesia per CPOT score - Maintenance of sleep-wake cycle, avoid delirium - continue enteral nutritional support at goal rate as tolerated - G.I. & VTE prophylaxis - PT/OT/ROM exercises - continue mobility protocols for pressure ulcer prophylaxis - Monitor hemodynamics closely - continue other care per attending / other consultants - discharge planning ongoing concurrently COVID SPECIFIC INTERVENTIONS: - COVID-19 test negative .... Re-evaluate in am & prn CONDITION: CRITICAL PROGNOSIS: GUARDED CODE STATUS: FULL CODE The high probability of a clinically significant, sudden or life-threatening deterioration of the [respiratory, cardiovascular & neurologic] system(s) required my full and direct attention, intervention and personal management. The aggregate critical care time was [35] minutes without overlap. Time includes spent on; [x] Data Review and interpretation [x] Patient assessment and monitoring of vital signs [x] Documentation [x] Medication orders and management Subjective Date of service: 11/25/21 Principal diagnosis: AE-COPD; AHRF; CHF (? new onset); CAP; CAD; Obesity; HTNsive Emergency Interval history: Patient is seen today for: AE-COPD; Acute hypoxemic respiratory failure; CHF (? new onset); CAP; CAD; Obesity; HTNsive Emergency Seen and examined at bedside; 24hour events reviewed; nursing and respiratory care staff consulted; no adverse overnight events reported to me; remains on MVS; tolerating SBT well; await ABG; remains with blank stare and not following commands but on Fentanyl; no emesis or overt aspiration; Objective Vital Signs - 12hr 11/25/21 11/25/21 11/25/21 00:53 01:00 02:00 Temperature Pulse Rate 94 H 94 H 92 H Pulse Rate [ Anterior Bilateral Throughout] Pulse Rate [ From Monitor] Respiratory 12 12 Rate Respiratory Rate [Anterior Bilateral Throughout] Blood Pressure 140/61 140/57 133/53 O2 Sat by Pulse 94 95 91 Oximetry 11/25/21 11/25/21 11/25/21 03:00 03:12 03:52 Temperature 99.3 F Pulse Rate 95 H 93 H Pulse Rate [ Anterior Bilateral Throughout] Pulse Rate [ From Monitor] Respiratory 14 Rate Respiratory Rate [Anterior Bilateral Throughout] Blood Pressure 144/57 O2 Sat by Pulse 91 Oximetry 11/25/21 11/25/21 11/25/21 03:53 04:00 04:34 Temperature Pulse Rate 93 H 91 H Pulse Rate [ Anterior Bilateral Throughout] Pulse Rate [ 93 H From Monitor] Respiratory 12 12 Rate Respiratory Rate [Anterior Bilateral Throughout] Blood Pressure 146/60 154/60 O2 Sat by Pulse 94 92 97 Oximetry 11/25/21 11/25/21 11/25/21 05:00 06:00 08:16 Temperature Pulse Rate 95 H 97 H 101 H Pulse Rate [ 110 H Anterior Bilateral Throughout] Pulse Rate [ From Monitor] Respiratory 12 12 32 H Rate Respiratory 18 Rate [Anterior Bilateral Throughout] Blood Pressure 154/60 156/63 O2 Sat by Pulse 97 97 96 Oximetry Constitutional: no acute distress, other (elderly obese female with mildly increased respiratory effort at rest on MVS) Eyes: non-icteric ENT: oropharynx moist, other (ETT 24 cm EMIL) Neck: supple, no lymphadenopathy, no JVD, other (large circumference) Effort: mildly labored Ascultation: Bilateral: diminished breath sounds, rhonchi (scant) Percussion: Bilateral: not dull Cardiovascular: regular rate and rhythm Gastrointestinal: normoactive bowel sounds, soft, non-tender, non-distended (protuberant) Integumentary: normal Extremities: no cyanosis, no edema, pulses normal, no ischemia or petechiae Neurologic: non-focal exam (grossly), pupils equal and round, CN II-XII normal, other (sedated) Psychiatric: other (blank stare) CBC and BMP: 11/25/21 04:57 11/25/21 04:57 ABG, PT/INR, D-dimer: ABG ABG pH 7.410 pH Units (7.350-7.450) 11/25/21 00:50 ABG pCO2 68.9 mm Hg 11/25/21 00:50 ABG pO2 67.3 mm Hg (80.0-90.0) L 11/25/21 00:50 ABG O2 Saturation 94.5 % (95.0-99.0) L 11/25/21 00:50 PT/INR, D-dimer PT 12.9 Sec. (12.2-14.9) 11/18/21 00:19 INR 0.88 (0.87-1.13) 11/18/21 00:19 D-Dimer 464.80 ng/mlDDU (0-234) H 11/18/21 05:15 Abnormal lab findings: Abnormal Labs 11/18/21 11/18/21 11/18/21 00:01 00:19 00:19 WBC 15.6 H RBC 5.59 H Hgb 14.8 H Hct 49.8 H MCH 27 L MCHC RDW 16.9 H Lymph % (Auto) Charles % (Auto) Lymph # (Auto) Charles # (Auto) Seg Neutrophils % Lymphocytes % (Manual) 4.0 L Seg Neutrophils # Seg Neutrophils # Man 14.7 H Lymphocytes # (Manual) 0.6 L D-Dimer ABG pH ABG pO2 ABG HCO3 ABG O2 Saturation ABG Base Excess ABG Hemoglobin Oxyhemoglobin Sodium Potassium Carbon Dioxide BUN Creatinine Glucose 148 H POC Glucose 151 H Calcium Phosphorus Magnesium Lactate Dehydrogenase Triglycerides Urine WBC (Auto) Salicylates Acetaminophen 11/18/21 11/18/21 11/18/21 00:19 00:19 00:19 WBC RBC Hgb Hct MCH MCHC RDW Lymph % (Auto) Charles % (Auto) Lymph # (Auto) Charles # (Auto) Seg Neutrophils % Lymphocytes % (Manual) Seg Neutrophils # Seg Neutrophils # Man Lymphocytes # (Manual) D-Dimer ABG pH ABG pO2 ABG HCO3 ABG O2 Saturation ABG Base Excess ABG Hemoglobin Oxyhemoglobin Sodium Potassium Carbon Dioxide BUN Creatinine Glucose POC Glucose Calcium Phosphorus Magnesium 2.50 H Lactate Dehydrogenase Triglycerides Urine WBC (Auto) Salicylates < 0.3 L Acetaminophen 5.0 L 11/18/21 11/18/21 11/18/21 01:03 02:00 05:15 WBC RBC Hgb Hct MCH MCHC RDW Lymph % (Auto) Charles % (Auto) Lymph # (Auto) Charles # (Auto) Seg Neutrophils % Lymphocytes % (Manual) Seg Neutrophils # Seg Neutrophils # Man Lymphocytes # (Manual) D-Dimer 464.80 H ABG pH ABG pO2 ABG HCO3 35.8 H ABG O2 Saturation ABG Base Excess 7.8 H ABG Hemoglobin Oxyhemoglobin 91.9 L Sodium Potassium Carbon Dioxide BUN Creatinine Glucose POC Glucose Calcium Phosphorus Magnesium Lactate Dehydrogenase Triglycerides Urine WBC (Auto) 16.0 H Salicylates Acetaminophen 11/18/21 11/18/21 11/18/21 05:15 15:47 15:47 WBC 13.5 H RBC 5.60 H Hgb 14.9 H Hct 49.1 H MCH 27 L MCHC RDW 17.3 H Lymph % (Auto) 7.9 L Charles % (Auto) 10.1 H Lymph # (Auto) 1.1 L Charles # (Auto) 1.4 H Seg Neutrophils % 81.7 H Lymphocytes % (Manual) Seg Neutrophils # 11.0 H Seg Neutrophils # Man Lymphocytes # (Manual) D-Dimer ABG pH ABG pO2 ABG HCO3 ABG O2 Saturation ABG Base Excess ABG Hemoglobin Oxyhemoglobin Sodium Potassium Carbon Dioxide BUN Creatinine Glucose 138 H POC Glucose Calcium Phosphorus Magnesium Lactate Dehydrogenase 275 H Triglycerides Urine WBC (Auto) Salicylates Acetaminophen 11/18/21 11/18/21 11/19/21 18:45 23:33 04:58 WBC RBC Hgb Hct MCH MCHC RDW Lymph % (Auto) Charles % (Auto) Lymph # (Auto) Charles # (Auto) Seg Neutrophils % Lymphocytes % (Manual) Seg Neutrophils # Seg Neutrophils # Man Lymphocytes # (Manual) D-Dimer ABG pH ABG pO2 ABG HCO3 ABG O2 Saturation ABG Base Excess ABG Hemoglobin Oxyhemoglobin Sodium Potassium Carbon Dioxide BUN Creatinine Glucose 130 H POC Glucose 132 H 113 H Calcium Phosphorus Magnesium Lactate Dehydrogenase Triglycerides Urine WBC (Auto) Salicylates Acetaminophen 11/19/21 11/19/2121 07:59 07:59 08:55 WBC 12.7 H RBC 5.29 H Hgb Hct 45.5 H MCH 26 L MCHC RDW 17.4 H Lymph % (Auto) 12.3 L Charles % (Auto) 9.6 H Lymph # (Auto) Charles # (Auto) 1.2 H Seg Neutrophils % 76.9 H Lymphocytes % (Manual) Seg Neutrophils # 9.7 H Seg Neutrophils # Man Lymphocytes # (Manual) D-Dimer ABG pH 7.518 H ABG pO2 77.6 L ABG HCO3 30.1 H ABG O2 Saturation ABG Base Excess 6.9 H ABG Hemoglobin Oxyhemoglobin Sodium Potassium 3.1 L D Carbon Dioxide BUN Creatinine Glucose 115 H POC Glucose Calcium 8.1 L Phosphorus Magnesium Lactate Dehydrogenase Triglycerides Urine WBC (Auto) Salicylates Acetaminophen 11/19/21 11/19/21 11/20/21 11:33 16:22 04:20 WBC 13.9 H RBC 5.44 H Hgb Hct 49.3 H MCH 26 L MCHC 29 L RDW 18.3 H Lymph % (Auto) Charles % (Auto) Lymph # (Auto) Charles # (Auto) Seg Neutrophils % Lymphocytes % (Manual) Seg Neutrophils # Seg Neutrophils # Man Lymphocytes # (Manual) D-Dimer ABG pH ABG pO2 ABG HCO3 ABG O2 Saturation ABG Base Excess ABG Hemoglobin Oxyhemoglobin Sodium Potassium Carbon Dioxide BUN Creatinine Glucose POC Glucose 119 H 112 H Calcium Phosphorus Magnesium Lactate Dehydrogenase Triglycerides Urine WBC (Auto) Salicylates Acetaminophen 11/20/21 11/20/21 11/20/21 04:20 11:07 12:02 WBC RBC Hgb Hct MCH MCHC RDW Lymph % (Auto) Charles % (Auto) Lymph # (Auto) Charles # (Auto) Seg Neutrophils % Lymphocytes % (Manual) Seg Neutrophils # Seg Neutrophils # Man Lymphocytes # (Manual) D-Dimer ABG pH 7.251 L ABG pO2 66.3 L ABG HCO3 30.2 H ABG O2 Saturation 91.8 L ABG Base Excess ABG Hemoglobin Oxyhemoglobin 89.4 L Sodium 147 H Potassium Carbon Dioxide BUN 25 H Creatinine Glucose POC Glucose 118 H Calcium Phosphorus 6.40 H Magnesium Lactate Dehydrogenase Triglycerides Urine WBC (Auto) Salicylates Acetaminophen 11/20/21 11/21/21 11/21/21 17:31 00:07 04:44 WBC 14.0 H RBC 5.08 H Hgb Hct 44.7 H MCH 26 L MCHC 29 L RDW 17.8 H Lymph % (Auto) Charles % (Auto) Lymph # (Auto) Charles # (Auto) Seg Neutrophils % Lymphocytes % (Manual) Seg Neutrophils # Seg Neutrophils # Man Lymphocytes # (Manual) D-Dimer ABG pH ABG pO2 ABG HCO3 ABG O2 Saturation ABG Base Excess ABG Hemoglobin Oxyhemoglobin Sodium Potassium Carbon Dioxide BUN Creatinine Glucose POC Glucose 139 H 147 H Calcium Phosphorus Magnesium Lactate Dehydrogenase Triglycerides Urine WBC (Auto) Salicylates Acetaminophen 11/21/21 11/21/21 11/21/21 04:44 06:06 11:45 WBC RBC Hgb Hct MCH MCHC RDW Lymph % (Auto) Charles % (Auto) Lymph # (Auto) Charles # (Auto) Seg Neutrophils % Lymphocytes % (Manual) Seg Neutrophils # Seg Neutrophils # Man Lymphocytes # (Manual) D-Dimer ABG pH ABG pO2 ABG HCO3 ABG O2 Saturation ABG Base Excess ABG Hemoglobin Oxyhemoglobin Sodium Potassium Carbon Dioxide BUN 20 H Creatinine Glucose 157 H POC Glucose 158 H 119 H Calcium Phosphorus Magnesium Lactate Dehydrogenase Triglycerides Urine WBC (Auto) Salicylates Acetaminophen 11/21/21 11/21/21 11/22/21 11:50 16:54 00:03 WBC RBC Hgb Hct MCH MCHC RDW Lymph % (Auto) Charles % (Auto) Lymph # (Auto) Charles # (Auto) Seg Neutrophils % Lymphocytes % (Manual) Seg Neutrophils # Seg Neutrophils # Man Lymphocytes # (Manual) D-Dimer ABG pH ABG pO2 61.8 L ABG HCO3 35.2 H ABG O2 Saturation 92.8 L ABG Base Excess 8.1 H ABG Hemoglobin Oxyhemoglobin 90.6 L Sodium Potassium Carbon Dioxide BUN Creatinine Glucose POC Glucose 149 H 133 H Calcium Phosphorus Magnesium Lactate Dehydrogenase Triglycerides Urine WBC (Auto) Salicylates Acetaminophen 11/22/21 11/22/21 11/22/21 04:39 04:39 04:39 WBC 14.1 H RBC Hgb Hct 43.4 H MCH 26 L MCHC RDW 17.9 H Lymph % (Auto) Charles % (Auto) Lymph # (Auto) Charles # (Auto) Seg Neutrophils % Lymphocytes % (Manual) Seg Neutrophils # Seg Neutrophils # Man Lymphocytes # (Manual) D-Dimer ABG pH ABG pO2 ABG HCO3 ABG O2 Saturation ABG Base Excess ABG Hemoglobin Oxyhemoglobin Sodium Potassium Carbon Dioxide 33 H BUN Creatinine Glucose 152 H POC Glucose Calcium Phosphorus Magnesium Lactate Dehydrogenase Triglycerides 185 H Urine WBC (Auto) Salicylates Acetaminophen 11/22/21 11/22/21 11/22/21 05:02 10:56 11:31 WBC RBC Hgb Hct MCH MCHC RDW Lymph % (Auto) Charles % (Auto) Lymph # (Auto) Charles # (Auto) Seg Neutrophils % Lymphocytes % (Manual) Seg Neutrophils # Seg Neutrophils # Man Lymphocytes # (Manual) D-Dimer ABG pH ABG pO2 55.3 L ABG HCO3 39.4 H ABG O2 Saturation 89.5 L ABG Base Excess 11.7 H ABG Hemoglobin Oxyhemoglobin 87.2 L Sodium Potassium Carbon Dioxide BUN Creatinine Glucose POC Glucose 158 H 116 H Calcium Phosphorus Magnesium Lactate Dehydrogenase Triglycerides Urine WBC (Auto) Salicylates Acetaminophen 11/22/21 11/22/21 11/23/21 17:29 23:22 04:49 WBC 13.6 H RBC 5.18 H Hgb Hct 45.6 H MCH 25 L MCHC 29 L RDW 17.5 H Lymph % (Auto) Charles % (Auto) Lymph # (Auto) Charles # (Auto) Seg Neutrophils % Lymphocytes % (Manual) Seg Neutrophils # Seg Neutrophils # Man Lymphocytes # (Manual) D-Dimer ABG pH ABG pO2 ABG HCO3 ABG O2 Saturation ABG Base Excess ABG Hemoglobin Oxyhemoglobin Sodium Potassium Carbon Dioxide BUN Creatinine Glucose POC Glucose 129 H 171 H Calcium Phosphorus Magnesium Lactate Dehydrogenase Triglycerides Urine WBC (Auto) Salicylates Acetaminophen 11/23/21 11/23/21 11/23/21 04:49 11:53 16:22 WBC RBC Hgb Hct MCH MCHC RDW Lymph % (Auto) Charles % (Auto) Lymph # (Auto) Charles # (Auto) Seg Neutrophils % Lymphocytes % (Manual) Seg Neutrophils # Seg Neutrophils # Man Lymphocytes # (Manual) D-Dimer ABG pH ABG pO2 61.8 L ABG HCO3 40.9 H ABG O2 Saturation 93.4 L ABG Base Excess 14.6 H ABG Hemoglobin 6.9 L Oxyhemoglobin 90.2 L Sodium 146 H Potassium Carbon Dioxide 36 H BUN 21 H Creatinine Glucose 155 H POC Glucose 166 H Calcium Phosphorus Magnesium Lactate Dehydrogenase Triglycerides Urine WBC (Auto) Salicylates Acetaminophen 11/23/21 11/23/21 11/24/21 17:11 23:07 05:03 WBC RBC Hgb Hct MCH MCHC RDW Lymph % (Auto) Charles % (Auto) Lymph # (Auto) Charles # (Auto) Seg Neutrophils % Lymphocytes % (Manual) Seg Neutrophils # Seg Neutrophils # Man Lymphocytes # (Manual) D-Dimer ABG pH ABG pO2 ABG HCO3 ABG O2 Saturation ABG Base Excess ABG Hemoglobin Oxyhemoglobin Sodium Potassium Carbon Dioxide BUN Creatinine Glucose POC Glucose 142 H 197 H 183 H Calcium Phosphorus Magnesium Lactate Dehydrogenase Triglycerides Urine WBC (Auto) Salicylates Acetaminophen 11/24/21 11/24/21 11/24/21 08:33 08:33 09:00 WBC RBC Hgb Hct 43.6 H MCH 26 L MCHC RDW 18.0 H Lymph % (Auto) Charles % (Auto) Lymph # (Auto) Charles # (Auto) Seg Neutrophils % Lymphocytes % (Manual) Seg Neutrophils # Seg Neutrophils # Man Lymphocytes # (Manual) D-Dimer ABG pH ABG pO2 69.1 L ABG HCO3 40.1 H ABG O2 Saturation 93.2 L ABG Base Excess 11.9 H ABG Hemoglobin Oxyhemoglobin 90.3 L Sodium Potassium 5.3 H D Carbon Dioxide 36 H BUN 25 H Creatinine 0.5 L Glucose 185 H POC Glucose Calcium Phosphorus Magnesium Lactate Dehydrogenase Triglycerides Urine WBC (Auto) Salicylates Acetaminophen 11/24/21 11/24/21 11/25/21 12:00 18:08 00:50 WBC RBC Hgb Hct MCH MCHC RDW Lymph % (Auto) Charles % (Auto) Lymph # (Auto) Charles # (Auto) Seg Neutrophils % Lymphocytes % (Manual) Seg Neutrophils # Seg Neutrophils # Man Lymphocytes # (Manual) D-Dimer ABG pH ABG pO2 67.3 L ABG HCO3 41.6 H 42.7 H ABG O2 Saturation 94.5 L ABG Base Excess 12.3 H 14.7 H ABG Hemoglobin Oxyhemoglobin 93.1 L 91.6 L Sodium Potassium Carbon Dioxide BUN Creatinine Glucose POC Glucose 168 H Calcium Phosphorus Magnesium Lactate Dehydrogenase Triglycerides Urine WBC (Auto) Salicylates Acetaminophen 11/25/21 11/25/21 04:57 04:57 WBC RBC 5.13 H Hgb Hct 45.1 H MCH 26 L MCHC RDW 17.7 H Lymph % (Auto) Charles % (Auto) Lymph # (Auto) Charles # (Auto) Seg Neutrophils % Lymphocytes % (Manual) Seg Neutrophils # Seg Neutrophils # Man Lymphocytes # (Manual) D-Dimer ABG pH ABG pO2 ABG HCO3 ABG O2 Saturation ABG Base Excess ABG Hemoglobin Oxyhemoglobin Sodium 146 H Potassium Carbon Dioxide 38 H BUN 26 H Creatinine 0.5 L Glucose 210 H POC Glucose Calcium Phosphorus Magnesium Lactate Dehydrogenase Triglycerides Urine WBC (Auto) Salicylates Acetaminophen Allied health notes reviewed: nursing
[2021-11-25] MEDS: carvediloL 12.5 MG TAB FEEDTUBE SCH ×2 (13:35→21:15)
[2021-11-25 14:46] LABS: ABG Base Excess 13.4 mmol/L (-2.0-3.0); ABG HCO3 41.7 mmol/L (20.0-26.0); ABG Methemoglobin 0.5 % (0.0-1.5); ABG Oxygen Saturation 94.2 % (95.0-99.0); ABG PCO2 68.8 mm Hg; ABG PH 7.4 pH Units (7.350-7.450); ABG PO2 65.1 mm Hg (80.0-90.0)
--- NOTE | 2021-11-25 17:20 | Cat Scan Report ---
CT head/brain wo con INDICATION / CLINICAL INFORMATION: 81 years Female; ams. TECHNIQUE: Routine CT head without contrast. All CT scans at this location are performed using CT dos e reduction for ALARA by means of automated exposure control. COMPARISON: The study is compared to previous CT of 11/18/2021. 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 Is also mild cerebral atrophy with associated prominence of the ventricular system. There is continued calcification within the basal ganglia. The motion deg rades the image quality in this intubated patient. However, there is no clear CT evidence of acute in tracranial hemorrhage or significant mass effect. ORBITS: No significant abnormality of visualized orbits. SINUSES / MASTOIDS: There is mild opacification along the posterior left sphenoid sinus. CRANIOCERVICAL JUNCTION: No significant abnormality. ADDITIONAL FINDINGS: None. IMPRESSION: 1. The motion degrades the image quality was intubated patient. However, there is continued mild micr ovascular angiopathy and cerebral atrophy without clear CT evidence acute intracranial process. Signer Name: Jovan Dennison MD Signed: 11/25/2021 5:16 PM Workstation Name: [id number]
[2021-11-25] MEDS ORDERED: LORazepam 2 MG/ML VIAL IV ONE (17:29)
--- NOTE | 2021-11-25 18:26 | Progress Note ---
Assessment and Plan Assessment and plan: This is a 81-year-old AA female with CAD, CHF, pulmonary hypertension, COPD, and tobacco abuse admitted for acute hypoxemic respiratory failure 2/2 of bilateral pneumonia vs COPD exacerbation/pulmonary edema requiring intubation and ventilatory support. Neuro: Agitation, acute toxic metabolic encephalopathy -Sedated with propofol and fentanyl -Goal RASS -2 -Seroquel twice daily -SAT/SBT when appropriate -Maintain sleep-wake cycle -Avoid benzodiazepine -Reduce risk of delirium Cardio: Acute CHF, hypertensive emergency, h/o CAD, LA, hyperlipidemia -Presented with systolic blood pressure in the 240s in the ED -S/p Cardene drip -11/22 echocardiogram with mild concentric left trickle hypertrophy, LVEF 60 to 65%, left pleural effusion -Admit BMP 867 -S/p Lasix -Coreg restarted -Blood pressure monitor per protocol -As needed hydralazine for SBP greater than 160 Pulmonary: Acute hypoxic respiratory failure, acute exacerbation of COPD, h/o COPD -CCM consulted, appreciate recommendation -Intubated in the ED on 11/18 with 8.0 ETT at 22 at the lips -A.m. vent settings: Assist-control rate 12, TV 500, PEEP 6, 40% FiO2 -See RT notes for titration -11/23 PSV all day and rested ON on AC -11/24 PSV and rest On on AC -11/25 PSV then became obtunded -stat CT head with no acute process -Patient became severely agitated in the afternoon and sedation was restarted, she was switched back to assist control -A.m. ABG and CXR noted -VAP bundle -Pulmicort and Brovana -Continue SPO2 monitoring GI: MO, h/o GERD -Nutrition consult for tube feeding -PPI -BR: Senokot -24-hour +651 mL : Urinary retention, metabolic alkalosis, hypernatremia, hyperkalemia (resolved) -Briggs reinserted on 11/20 due to retention -remove today and bladder scan q 6 hours -replace briggs AFTER third straight cath if needed -straight cath for Urine volume >350ml -Strict intake and output -Trend BMP -Intervene as needed Endo: NAD -Avoid hypoglycemia -Accu-Cheks every 6 hours -SSI ID: Bilateral pneumonia, UTI -Evidenced on CXR and UA -COVID-19 PCR negative -Follow culture data -Blood culture, urine culture, tracheal aspirate with no growth to date -Follow WBC and fever curve -s/p azithromycin and Rocephin Heme: Leukocytosis (resolved) -Monitor CBC -Transfuse to hemoglobin less than 7 -SCD to bilateral lower extremities while in bed -Lovenox subcu The high probability of a clinically significant, sudden or life threatening deterioration of the [Neuro, Resp, CV] system(s) required my full and direct attention, intervention and personal management. The aggregate critical care time was [70] minutes. This time is in addition to time spent performing reported procedures but includes the following: [x] Data Review and interpretation [x] Patient assessment and monitoring of vital signs [x] Documentation [x] Medication orders and management Disposition Plan: ICU Total Time Spent with Patient (Minutes): 70 History Interval history: This is a 81-year-old female with CAD s/p LA, GERD, chronic back pain, HLD, neuropathy, emphysema, CHF, pulmonary HTN, COPD who presents to the emergency department on 11/18 via EMS for altered mental status. According to EMS patient was having difficulty breathing and minimally responsive but in respiratory distress initially. Respiratory status was said to have worsened in route to the hospital and the patient had been given Solu-Medrol magnesium IV however he developed pinpoint pupils and was given Narcan with improvement. Work-up in the emergency department revealed leukocytosis, elevated D-dimer, 8 UTI on UA, CXR showed bilateral pulmonary opacities possibly reflecting edema or atelectasis or pneumonia, CT chest showed evidence of pulmonary hypertension with dense consolidation along the left lower lobe concerning for pneumonia and mild interstitial pulmonary edema. Patient was admitted to the hospital service with acute hypoxic respiratory failure, acute COPD exacerbation and UTI to the ICU with consults to [facility]. Hospital Course to Date: 11/18: Patient was seen and examined in the ED. Patient is intubated and sedated on propofol and versed gtt, RASS -3 to -4. Patient is in hypertensive emergency this am, SBP in the 240s, cardene gtt was initiated, maintain SBP less than 160. Leukocytosis noted, UA significant for UTI. Lactic, procal, and CRP are normal. Patient remains afebrile, continue empiric IV abx for now. Tracheal aspirate ordered, blood culture is pending. Continue to f/u on culture data. 11/19: Patient remains intubated and sedated. Patient did not tolerate sedation vacation this am, became tachycardic, hypertensive, with elevated RR and SPO2 in the low 80s. Sedation back on, continue to wean sedation as tolerated for RASS goal of 0 to -2. Pateimt is off cardene gtt, PRN hydralazine for SPO2 above 160. Low K repleted, repeat labs in the am. 11/20: Remains on the vent and sedated, RASS -3. Plan to wean down on sedation, might need to add Seroquel if patient is not tolerating sedation. Hypernatremia and increased BUN/Cr. this am, patient is on lasix BID. Will discuss with [facility] to possibly hold or decreased IV lasix for now, FWF added for high Na. Urinary retention post briggs removal, bladder scan and straight cath per protocol. 11/21: Patient remains on the vent, unable to wean sedation at this time, Seroq uel added. Titrate sedation as tolerated for RASS of 0 to -2. Briggs was reinserted overnight for urinary retention, kidney function is stable. 11/22: CCM reduced FiO2. We will start weaning tomorrow. No acute events reported overnight. 11/23: Patient spiked a fever overnight and was cultured this morning. Attempted CPAP trial again today. An ABG obtained post trial which has been given to CCM. Slight hypernatremia noted. 11/24: I updated patient's son today, Kwame Salamanca at [phone]. Lasix stopped today. Patient placed on CPAP trial. She lasted on CPAP all day yesterday and was rested overnight on assist control. Given Kayexalate today due to hyperkalemia. 11/25: Patient was on SBT today and was not arousable for a while and a CT head was obtained which showed no acute intracranial abnormality. Patient later became severely agitated and was switched back to assist control and placed back on sedation. Family updated today. Restarted home Coreg due to hypotension. Hospitalist Physical - Physical exam Narrative exam: - EENT Eyes: Present: PERRL, EOM intact ENT: hearing intact, clear oral mucosa, dentition normal - Neck Neck: Present: normal ROM - Respiratory Respiratory effort: normal Respiratory: bilateral: diminished - Cardiovascular Rhythm: regular Heart Sounds: Present: S1 & S2. Absent: systolic murmur - Extremities Extremities: no ischemia, pulses intact, pulses symmetrical, No edema, normal temperature, normal color Peripheral Pulses: within normal limits - Abdominal General gastrointestinal: soft, non-tender, non-distended, normal bowel sounds - Integumentary Integumentary: Present: warm, dry - Psychiatric Psychiatric: cooperative - Neurologic Neurologic: CNII-XII intact, moves all extremities - Allied Health Allied health notes reviewed: nursing, RT, social work - Constitutional Vitals: Temp Pulse Resp BP Pulse Ox 99.5 F 94 H 12 162/73 97 11/25/21 16:00 11/25/21 18:00 11/25/21 18:00 11/25/21 18:00 11/25/21 18:00 General appearance: Present: no acute distress, other (Intubated and Sedated) HEART Score - HEART Score Troponin: Troponin T < 0.010 ng/mL (0.00-0.029) 11/18/21 03:25 Results - Labs CBC & Chem 7: 11/25/21 04:57 11/25/21 04:57 Labs: Laboratory Last Values WBC 9.6 K/mm3 (4.5-11.0) 11/25/21 04:57 RBC 5.13 M/mm3 (3.65-5.03) H 11/25/21 04:57 Hgb 13.4 gm/dl (10.1-14.3) 11/25/21 04:57 Hct 45.1 % (30.3-42.9) H 11/25/21 04:57 MCV 88 fl (79-97) 11/25/21 04:57 MCH 26 pg (28-32) L 11/25/21 04:57 MCHC 30 % (30-34) 11/25/21 04:57 RDW 17.7 % (13.2-15.2) H 11/25/21 04:57 Plt Count 293 K/mm3 (140-440) 11/25/21 04:57 Lymph % (Auto) 12.3 % (13.4-35.0) L 11/19/21 07:59 [place] % (Auto) 9.6 % (0.0-7.3) H 11/19/21 07:59 Eos % (Auto) 0.7 % (0.0-4.3) 11/19/21 07:59 Baso % (Auto) 0.5 % (0.0-1.8) 11/19/21 07:59 Lymph # (Auto) 1.6 K/mm3 (1.2-5.4) 11/19/21 07:59 [place] # (Auto) 1.2 K/mm3 (0.0-0.8) H 11/19/21 07:59 Eos # (Auto) 0.1 K/mm3 (0.0-0.4) 11/19/21 07:59 Baso # (Auto) 0.1 K/mm3 (0.0-0.1) 11/19/21 07:59 Add Manual Diff Complete 11/18/21 00:19 Total Counted 100 11/18/21 00:19 Seg Neutrophils % 76.9 % (40.0-70.0) H 11/19/21 07:59 Lymphocytes % (Manual) 4.0 % (13.4-35.0) L 11/18/21 00:19 Monocytes % (Manual) 2.0 % (0.0-7.3) 11/18/21 00:19 Nucleated RBC % Not Reportable 11/18/21 00:19 Seg Neutrophils # 9.7 K/mm3 (1.8-7.7) H 11/19/21 07:59 Seg Neutrophils # Man 14.7 K/mm3 (1.8-7.7) H 11/18/21 00:19 Band Neutrophils # 0.0 K/mm3 11/18/21 00:19 Lymphocytes # (Manual) 0.6 K/mm3 (1.2-5.4) L 11/18/21 00:19 Abs React Lymphs (Man) 0.0 K/mm3 11/18/21 00:19 Monocytes # (Manual) 0.3 K/mm3 (0.0-0.8) 11/18/21 00:19 Eosinophils # (Manual) 0.0 K/mm3 (0.0-0.4) 11/18/21 00:19 Basophils # (Manual) 0.0 K/mm3 (0.0-0.1) 11/18/21 00:19 Metamyelocytes # 0.0 K/mm3 11/18/21 00:19 Myelocytes # 0.0 K/mm3 11/18/21 00:19 Promyelocytes # 0.0 K/mm3 11/18/21 00:19 Blast Cells # 0.0 K/mm3 11/18/21 00:19 WBC Morphology Not Reportable 11/18/21 00:19 Hypersegmented Neuts Not Reportable 11/18/21 00:19 Hyposegmented Neuts Not Reportable 11/18/21 00:19 Hypogranular Neuts Not Reportable 11/18/21 00:19 Smudge Cells Not Reportable 11/18/21 00:19 Toxic Granulation Not Reportable 11/18/21 00:19 Toxic Vacuolation Not Reportable 11/18/21 00:19 Dohle Bodies Not Reportable 11/18/21 00:19 Pelger-Huet Anomaly Not Reportable 11/18/21 00:19 Luis Rods Not Reportable 11/18/21 00:19 Platelet Estimate Consistent w auto 11/18/21 00:19 Clumped Platelets Not Reportable 11/18/21 00:19 Plt Clumps, EDTA Not Reportable 11/18/21 00:19 Large Platelets Not Reportable 11/18/21 00:19 Giant Platelets Not Reportable 11/18/21 00:19 Platelet Satelliting Not Reportable 11/18/21 00:19 Plt Morphology Comment Not Reportable 11/18/21 00:19 RBC Morphology Not Reportable 11/18/21 00:19 Dimorphic RBCs Not Reportable 11/18/21 00:19 Polychromasia Not Reportable 11/18/21 00:19 Hypochromasia Not Reportable 11/18/21 00:19 Poikilocytosis Not Reportable 11/18/21 00:19 Anisocytosis 1+ 11/18/21 00:19 Microcytosis Not Reportable 11/18/21 00:19 Macrocytosis Few 11/18/21 00:19 Spherocytes Not Reportable 11/18/21 00:19 Pappenheimer Bodies Not Reportable 11/18/21 00:19 Sickle Cells Not Reportable 11/18/21 00:19 Target Cells Not Reportable 11/18/21 00:19 Tear Drop Cells Not Reportable 11/18/21 00:19 Ovalocytes Not Reportable 11/18/21 00:19 Helmet Cells Not Reportable 11/18/21 00:19 Connelly-Tetlin Bodies Not Reportable 11/18/21 00:19 [place] Rings Not Reportable 11/18/21 00:19 Yumi Cells Not Reportable 11/18/21 00:19 Bite Cells Not Reportable 11/18/21 00:19 Crenated Cell Not Reportable 11/18/21 00:19 Elliptocytes Not Reportable 11/18/21 00:19 Acanthocytes (Spur) Not Reportable 11/18/21 00:19 Rouleaux Not Reportable 11/18/21 00:19 Hemoglobin C Crystals Not Reportable 11/18/21 00:19 Schistocytes Not Reportable 11/18/21 00:19 Malaria parasites Not Reportable 11/18/21 00:19 Shahriar Bodies Not Reportable 11/18/21 00:19 Hem Pathologist Commnt No 11/18/21 00:19 PT 12.9 Sec. (12.2-14.9) 11/18/21 00:19 INR 0.88 (0.87-1.13) 11/18/21 00:19 APTT 29.2 Sec. (24.2-36.6) 11/18/21 00:19 D-Dimer 464.80 ng/mlDDU (0-234) H 11/18/21 05:15 ABG pH 7.400 pH Units (7.350-7.450) 11/25/21 14:18 ABG pCO2 68.8 mm Hg 11/25/21 14:18 ABG pO2 65.1 mm Hg (80.0-90.0) L 11/25/21 14:18 ABG HCO3 41.7 mmol/L (20.0-26.0) H 11/25/21 14:18 ABG O2 Saturation 94.2 % (95.0-99.0) L 11/25/21 14:18 ABG O2 Content 18.6 (0.0-44) 11/25/21 14:18 ABG Base Excess 13.4 mmol/L (-2.0-3.0) H 11/25/21 14:18 ABG Hemoglobin 14.5 gm/dl (12.0-16.0) 11/25/21 14:18 ABG Carboxyhemoglobin 2.6 % (0.0-5.0) 11/25/21 14:18 ABG Methemoglobin 0.5 % (0.0-1.5) 11/25/21 14:18 Oxyhemoglobin 91.3 % (95.0-99.0) L 11/25/21 14:18 FiO2 40 % 11/25/21 14:18 Sodium 146 mmol/L (137-145) H 11/25/21 04:57 Potassium 5.0 mmol/L (3.6-5.0) 11/25/21 04:57 Chloride 98.5 mmol/L (98-107) 11/25/21 04:57 Carbon Dioxide 38 mmol/L (22-30) H 11/25/21 04:57 Anion Gap 15 mmol/L 11/25/21 04:57 BUN 26 mg/dL (7-17) H 11/25/21 04:57 Creatinine 0.5 mg/dL (0.6-1.2) L 11/25/21 04:57 Estimated GFR > 60 ml/min 11/25/21 04:57 BUN/Creatinine Ratio 52 % 11/25/21 04:57 Glucose 210 mg/dL (65-100) H 11/25/21 04:57 POC Glucose 168 mg/dL (70-105) H 11/24/21 18:08 Hemoglobin A1c 5.9 % (4-6) 11/19/21 07:59 Lactic Acid 1.40 mmol/L (0.7-2.0) 11/18/21 00:19 Calcium 10.2 mg/dL (8.4-10.2) 11/25/21 04:57 Phosphorus 4.20 mg/dL (2.5-4.5) 11/23/21 04:49 Magnesium 1.90 mg/dL (1.7-2.3) 11/23/21 04:49 Total Bilirubin 0.40 mg/dL (0.1-1.2) 11/18/21 00:19 Direct Bilirubin < 0.2 mg/dL (0-0.2) 11/18/21 00:19 Indirect Bilirubin 0.2 mg/dL 11/18/21 00:19 AST 22 units/L (5-40) 11/18/21 00:19 ALT 25 units/L (7-56) 11/18/21 00:19 Alkaline Phosphatase 99 units/L (35-129) 11/18/21 00:19 Ammonia 54.0 umol/L (25-60) 11/18/21 00:19 Lactate Dehydrogenase 275 units/L (91-180) H 11/18/21 05:15 Troponin T < 0.010 ng/mL (0.00-0.029) 11/18/21 03:25 C-Reactive Protein 0.70 mg/dL (0.00-1.30) 11/18/21 15:47 NT-Pro-B Natriuret Pep 867.7 pg/mL (0-900) 11/18/21 00:19 Total Protein 7.4 g/dL (6.3-8.2) 11/18/21 00:19 Albumin 4.0 g/dL (3.9-5) 11/18/21 00:19 Albumin/Globulin Ratio 1.2 % 11/18/21 00:19 Triglycerides 185 mg/dL (2-149) H 11/22/21 04:39 Lipase 13 units/L (13-60) 11/18/21 00:19 Procalcitonin 0.12 ng/mL (<0.15) 11/18/21 05:15 Urine Color Yellow (Yellow) 11/23/21 12:24 Urine Turbidity Clear (Clear) 11/23/21 12:24 Urine pH 7.0 (5.0-7.0) 11/23/21 12:24 Ur Specific [place] 1.018 (1.003-1.030) 11/23/21 12:24 Urine Protein <15 mg/dl mg/dL (Negative) 11/23/21 12:24 Urine Glucose (UA) Neg mg/dL (Negative) 11/23/21 12:24 Urine Ketones Neg mg/dL (Negative) 11/23/21 12:24 Urine Blood Neg (Negative) 11/23/21 12:24 Urine Nitrite Neg (Negative) 11/23/21 12:24 Urine Bilirubin Neg (Negative) 11/23/21 12:24 Urine Urobilinogen 4.0 mg/dL (<2.0) 11/23/21 12:24 Ur Leukocyte Esterase Neg (Negative) 11/23/21 12:24 Urine WBC (Auto) 1.0 /HPF (0.0-6.0) 11/23/21 12:24 Urine RBC (Auto) 1.0 /HPF (0.0-6.0) 11/23/21 12:24 U Epithel Cells (Auto) 1.0 /HPF (0-13.0) 11/18/21 01:03 Hyaline Casts 3 /LPF 11/18/21 01:03 Urine Mucus Few /HPF 11/18/21 01:03 Salicylates < 0.3 mg/dL (2.8-20.0) L 11/18/21 00:19 Urine Opiates Screen Negative 11/18/21 01:03 Urine Methadone Screen Negative 11/18/21 01:03 Acetaminophen 5.0 ug/mL (10.0-30.0) L 11/18/21 00:19 Ur Barbiturates Screen Negative 11/18/21 01:03 Ur Phencyclidine Scrn Negative 11/18/21 01:03 Ur Amphetamines Screen Negative 11/18/21 01:03 U Benzodiazepines Scrn Negative 11/18/21 01:03 Urine Cocaine Screen Negative 11/18/21 01:03 U Marijuana (THC) Screen Negative 11/18/21 01:03 Drugs of Abuse Note Disclamer 11/18/21 01:03 Plasma/Serum Alcohol < 0.01 % (0-0.07) 11/18/21 00:19 Coronavirus (PCR) Negative (Negative) 11/18/21 Unknown Microbiology: Microbiology 11/23/21 12:27 Peripheral/Venous Blood Culture - Preliminary NO GROWTH AFTER 48 HOURS 11/23/21 12:27 Peripheral/Venous Blood Culture - Preliminary NO GROWTH AFTER 48 HOURS Briggs/IV: Voiding Method Indwelling Catheter Active Medications - Current Medications Current Medications: Generic Name Dose Route Start Last Admin Trade Name Freq PRN Reason Stop Dose Admin Acetaminophen 650 mg 11/18/21 03:10 11/22/21 19:49 Acetaminophen 650 Mg Rect Supp OH 650 mg Q6H PRN Administration Pain MILD(1-3)/Fever >100.5/MONTIEL Acetaminophen 650 mg 11/23/21 00:56 11/24/21 12:32 Acetaminophen 325 Mg/10.15 Ml Oral Liqd Unit Dose FEEDTUBE 650 mg Q6H PRN Administration Non Cardiac Pain or Temp>100.5 Lipase/Protease/Amylase 1 each 11/18/21 16:10 Lipase 10,500/Protease 25,000/Amylase 43,750 (Units) Dr Cap FEEDTUBE PRN PRN For Clogged Feeding Tube Arformoterol Tartrate 15 mcg 11/18/21 20:00 11/25/21 08:16 Arformoterol 15 Mcg/2 Ml Nebu IH 15 mcg Q12HRT PAULINA Administration Budesonide 0.5 mg 11/18/21 20:00 11/25/21 08:16 Budesonide 0.5 Mg/2 Ml Nebu IH 0.5 mg Q12HRT PAULINA Administration Carvedilol 12.5 mg 11/25/21 13:00 Carvedilol 12.5 Mg Tab FEEDTUBE BID PAULINA Dextrose 50 ml 11/18/21 10:40 Dextrose 50% In Water (25gm) 50 Ml Syringe IV Q30MIN PRN Hypoglycemia Protocol Enoxaparin Sodium 40 mg 11/19/21 22:00 11/24/21 21:00 Enoxaparin 40 Mg/0.4 Ml Inj SUB-Q 40 mg QDAY@2200 PAULINA Administration Protocol Famotidine 20 mg 11/20/21 10:00 11/25/21 09:42 Famotidine 20 Mg Tab FEEDTUBE 20 mg BID PAULINA Administration Fentanyl 50 mcg 11/18/21 13:10 11/25/21 09:49 Fentanyl 100 Mcg/2 Ml Inj IV 50 mcg Q10MIN PRN Administration ANALGESIA Hydralazine HCl 10 mg 11/18/21 10:44 11/23/21 21:54 Hydralazine 20 Mg/1 Ml Inj IV 10 mg Q4HR PRN Administration Hypertension Hydrophilic Ointment 1 applic 11/18/21 15:26 Lip Therapy Vaseline TP Q2HR PRN Dry Lips Propofol 1,000 mg in 100 mls @ 2.55 mls/hr 11/18/21 02:00 11/22/21 18:13 Diprivan 10 Mg/Ml IV Infused TITR PAULINA Titration Protocol 5 MCG/KG/MIN Fentanyl Citrate 2,000 mcg in 100 mls @ 4.25 mls/hr 11/18/21 14:00 11/25/21 09:42 Fentanyl Drip Premix IV 4 mcg/kg/hr TITR PAULINA 17 mls/hr Administration Protocol 1 MCG/KG/HR Insulin Human Lispro 0 unit 11/18/21 12:00 11/25/21 05:55 Insulin Lispro 100 Unit/Ml SUB-Q 2 unit Q6HR PAULINA Administration Protocol Magnesium Hydroxide 30 ml 11/18/21 03:10 Magnesium Hydroxide (Mom) Oral Liqd Udc PO Q4H PRN Constipation Multi-Ingred Cream/Lotion/Oil/Oint 1 applic 11/18/21 15:26 Mineral Oil/Petrolatum, White Ophth Oint 3.5 Gm OU Q4HR PRN Dry Eye(s) Ondansetron HCl 4 mg 11/18/21 03:10 Ondansetron 4 Mg/2 Ml Inj IV Q8H PRN Nausea And Vomiting Quetiapine Fumarate 100 mg 11/21/21 22:00 11/25/21 09:42 Quetiapine 100 Mg Tab PO 100 mg BID PAULINA Administration Senna/Docusate Sodium 1 tab 11/18/21 22:00 11/25/21 09:51 Sennosides/Docusate Sodium 8.6/50 Mg Tab FEEDTUBE Not Given BID PAULINA Simple Syrup 15 ml 11/18/21 16:10 Simple Syrup 15 Ml FEEDTUBE PRN PRN Hypoglycemia Simple Syrup 30 ml 11/18/21 16:10 Simple Syrup 15 Ml FEEDTUBE PRN PRN Hypoglycemia Sodium Bicarbonate 325 mg 11/18/21 16:10 Sodium Bicarbonate 325 Mg Tab FEEDTUBE PRN PRN For Clogged Feeding Tube Nutrition/Malnutrition Assess - Dietary Evaluation Nutrition/Malnutrition Findings: Nutrition Notes Start: 11/18/21 10:45 Freq: Status: Active Protocol: Document 11/24/21 12:07 LEONARDO (Rec: 11/24/21 13:29 LEONARDO [id number]) Nutrition Notes Initial or Follow up Brief Note Current Diet TF-Promote @ 65 ml/hr (since D 11/18). Height 5 ft 8 in Weight 81.6 kg Apollo Body Weight (kg) 63.63 BMI 27.3 Weight change and time frame No body weight change reported . Weight Status Overweight Subjective/Other Information RD consult for TF tolerance. TF continues as prescribed. Percent of energy/protein needs met: rescribed TF-Promote @ 65 ml/ hr provides for energy/protein needs (1,570 Kcal/98 g) during LOS; 95% Kcal; 96% AA. #1 Nutrition Diagnosis Inadequate oral intake Diagnosis Progress(for reassessment Continues documentation) Nutrition Intervention Nutrition Support: Continue Promote @ 65 ml/hr. Flush: 60 ml water Q 4 hr. Goal #1 Provide at least 75% of energy /protein needs through Enteral Feeding during LOS. Follow-Up By: 12/01/21 Additional Comments Continue monitoring TF tolerance, and BM.
[2021-11-25] MEDS: ENOXAPARIN 40 MG/0.4 ML INJ SUB-Q SCH (21:15)
[2021-11-26] MEDS: fentaNYL DRIP Premix 2,000 MCG/100 ML BAG IV SCH (02:44)
[2021-11-26] MEDS: INSULIN LISPRO 100 UNIT/ML SUB-Q SCH ×5 (02:45→23:48)
[2021-11-26 04:57] LABS: Mean Corpuscular HGB Conc 30 % (30-34); Mean Corpuscular Volume 87 fl (79-97); Platelet Count 361 K/mm3 (140-440); Red Blood Count 5.05 M/mm3 (3.65-5.03); Red Cell Distribution Width 17.6 % (13.2-15.2)
[2021-11-26 05:04] LABS: Hemoglobin 13.1 gm/dl (10.1-14.3)
[2021-11-26 05:14] LABS: Blood Urea Nitrogen 30 mg/dL (7-17); Calcium 10.5 mg/dL (8.4-10.2); Hemolysis Index 4
[2021-11-26 05:15] LABS: BUN/Creatinine Ratio 50
[2021-11-26] MEDS: BUDESONIDE 0.5 MG/2 ML NEBU IH SCH ×2 (09:36→20:10)
[2021-11-26] MEDS: ARFORMOTEROL 15 MCG/2 ML NEBU IH SCH ×2 (09:36→20:10)
[2021-11-26] MEDS: SENNOSIDES/DOCUSATE SODIUM 8.6/50 MG TAB FEEDTUBE SCH ×2 (09:46→21:03)
[2021-11-26] MEDS: FAMOTIDINE 20 MG TAB FEEDTUBE SCH ×2 (09:47→21:02)
[2021-11-26] MEDS: carvediloL 12.5 MG TAB FEEDTUBE SCH ×2 (09:47→21:03)
[2021-11-26] MEDS: QUEtiapine 100 MG TAB PO SCH ×2 (09:47→21:03)
[2021-11-26 11:12] LABS: ABG Base Excess 11.4 mmol/L (-2.0-3.0); ABG HCO3 39.6 mmol/L (20.0-26.0); ABG Methemoglobin 0.6 % (0.0-1.5); ABG Oxygen Saturation 92.9 % (95.0-99.0); ABG PCO2 64.5 mm Hg; ABG PH 7.405 pH Units (7.350-7.450); ABG PO2 66.5 mm Hg (80.0-90.0)
--- NOTE | 2021-11-26 13:09 | Progress Note ---
Assessment and Plan Acute exacerbation of chronic obstructive lung disease Acute hypoxemic respiratory failure Acute congestive heart failure exacerbation (? Flash Pulmonary edema) Community-acquired pneumonia Leukocytosis History of coronary artery disease Gastroesophageal reflux disease Arthritis Hyperlipidemia Obesity Elevated D-dimers Acute toxic metabolic encephalopathy Urinary tract infection Likely pulmonary hypertension Hypertensive emergency - hold fentanyl - NGT to LIS - tentative trial of extubation in am if can go whole day on PSV - may need to re-insert briggs catheter if still requiring straight catheterizations - continue Coreg 12.5 mg BID - continue care as below otherwise; - Daily SAT and SBT assessment as tolerated - continue to wean supplemental oxygen for target O2 sat's > 90% acutely - VAP bundle addressed - continue lung protective strategies - continue bronchodilators with pulmonary hygiene per RT - wean per pulmonary driven protocols otherwise - avoid nephrotoxins, renally dose all medications - continue accuchecks with glycemic control per SSI (While critically ill target blood glucose of 140-180 mg/dL; avoid hypoglycemia) - sedation prn for target RASS 0 to -1 - continue to avoid benzodiazepine's, reduce the possibility of delirium - completed AB's per ID rec's - prn analgesia per CPOT score - Maintenance of sleep-wake cycle, avoid delirium - continue enteral nutritional support at goal rate as tolerated - G.I. & VTE prophylaxis - PT/OT/ROM exercises - continue mobility protocols for pressure ulcer prophylaxis - Monitor hemodynamics closely - continue other care per attending / other consultants - discharge planning ongoing concurrently COVID SPECIFIC INTERVENTIONS: - COVID-19 test negative .... Re-evaluate in am & prn CONDITION: CRITICAL PROGNOSIS: GUARDED CODE STATUS: FULL CODE The high probability of a clinically significant, sudden or life-threatening deterioration of the [respiratory, cardiovascular & neurologic] system(s) required my full and direct attention, intervention and personal management. The aggregate critical care time was [32] minutes without overlap. Time includes spent on; [x] Data Review and interpretation [x] Patient assessment and monitoring of vital signs [x] Documentation [x] Medication orders and management Subjective Date of service: 11/26/21 Principal diagnosis: AE-COPD; AHRF; CHF (? new onset); CAP; CAD; Obesity; HTNsive Emergency Interval history: Patient is seen today for: AE-COPD; Acute hypoxemic respiratory failure; CHF (? new onset); CAP; CAD; Obesity; HTNsive Emergency Seen and examined at bedside; 24hour events reviewed; nursing and respiratory care staff consulted; no adverse overnight events reported to me; remains on MVS; just placed on SBT and tolerating well; still lethargic but now off all IV sedation; no emesis or overt aspiration and no lateralizing signs; moves all extremities Objective Vital Signs - 12hr 11/26/21 11/26/21 11/26/21 02:00 03:00 04:00 Temperature 98.6 F Pulse Rate 92 H 88 83 Pulse Rate [ Anterior Bilateral Throughout] Pulse Rate [ 84 From Monitor] Respiratory 13 12 12 Rate Respiratory Rate [Anterior Bilateral Throughout] Blood Pressure 134/59 127/60 130/52 O2 Sat by Pulse 95 96 96 Oximetry 11/26/21 11/26/21 11/26/21 04:50 05:00 06:00 Temperature Pulse Rate 82 83 82 Pulse Rate [ Anterior Bilateral Throughout] Pulse Rate [ From Monitor] Respiratory 12 12 Rate Respiratory Rate [Anterior Bilateral Throughout] Blood Pressure 122/52 120/63 O2 Sat by Pulse 97 97 97 Oximetry 11/26/21 11/26/21 11/26/21 07:00 08:00 09:00 Temperature 99.1 F Pulse Rate 84 87 85 Pulse Rate [ Anterior Bilateral Throughout] Pulse Rate [ 87 From Monitor] Respiratory 12 14 13 Rate Respiratory Rate [Anterior Bilateral Throughout] Blood Pressure 135/60 138/61 142/63 O2 Sat by Pulse 97 98 98 Oximetry 11/26/21 11/26/21 11/26/21 09:34 09:36 09:47 Temperature Pulse Rate 82 83 Pulse Rate [ 82 Anterior Bilateral Throughout] Pulse Rate [ From Monitor] Respiratory Rate Respiratory 12 Rate [Anterior Bilateral Throughout] Blood Pressure 125/62 125/62 O2 Sat by Pulse 96 Oximetry 11/26/21 11/26/21 11/26/21 10:00 11:00 12:00 Temperature 100.4 F H Pulse Rate 87 82 79 Pulse Rate [ Anterior Bilateral Throughout] Pulse Rate [ From Monitor] Respiratory 16 12 12 Rate Respiratory Rate [Anterior Bilateral Throughout] Blood Pressure 146/62 122/53 124/51 O2 Sat by Pulse 97 94 95 Oximetry Constitutional: no acute distress, other (elderly obese female with mildly increased respiratory effort at rest on MVS) Eyes: non-icteric ENT: oropharynx moist, other (ETT 24 cm EMIL) Neck: supple, no lymphadenopathy, no JVD, other (large circumference) Effort: mildly labored Ascultation: Bilateral: diminished breath sounds, rhonchi (scant) Percussion: Bilateral: not dull Cardiovascular: regular rate and rhythm Gastrointestinal: normoactive bowel sounds, soft, non-tender, non-distended (protuberant) Integumentary: normal Extremities: no cyanosis, no edema, pulses normal, no ischemia or petechiae Neurologic: non-focal exam (grossly), pupils equal and round, CN II-XII normal, other (left gaze preference ?) Psychiatric: other (blank stare) CBC and BMP: 11/28/21 03:38 11/28/21 03:38 ABG, PT/INR, D-dimer: ABG ABG pH 7.405 pH Units (7.350-7.450) 11/26/21 10:28 ABG pCO2 64.5 mm Hg 11/26/21 10:28 ABG pO2 66.5 mm Hg (80.0-90.0) L 11/26/21 10:28 ABG O2 Saturation 92.9 % (95.0-99.0) L 11/26/21 10:28 PT/INR, D-dimer PT 12.9 Sec. (12.2-14.9) 11/18/21 00:19 INR 0.88 (0.87-1.13) 11/18/21 00:19 D-Dimer 464.80 ng/mlDDU (0-234) H 11/18/21 05:15 Abnormal lab findings: Abnormal Labs 11/18/21 11/18/21 11/18/21 00:01 00:19 00:19 WBC 15.6 H RBC 5.59 H Hgb 14.8 H Hct 49.8 H MCH 27 L MCHC RDW 16.9 H Lymph % (Auto) [place] % (Auto) Lymph # (Auto) [place] # (Auto) Seg Neutrophils % Lymphocytes % (Manual) 4.0 L Seg Neutrophils # Seg Neutrophils # Man 14.7 H Lymphocytes # (Manual) 0.6 L D-Dimer ABG pH ABG pO2 ABG HCO3 ABG O2 Saturation ABG Base Excess ABG Hemoglobin Oxyhemoglobin Sodium Potassium Carbon Dioxide BUN Creatinine Glucose 148 H POC Glucose 151 H Calcium Phosphorus Magnesium Lactate Dehydrogenase Triglycerides Urine WBC (Auto) Salicylates Acetaminophen 11/18/21 11/18/21 11/18/21 00:19 00:19 00:19 WBC RBC Hgb Hct MCH MCHC RDW Lymph % (Auto) [place] % (Auto) Lymph # (Auto) [place] # (Auto) Seg Neutrophils % Lymphocytes % (Manual) Seg Neutrophils # Seg Neutrophils # Man Lymphocytes # (Manual) D-Dimer ABG pH ABG pO2 ABG HCO3 ABG O2 Saturation ABG Base Excess ABG Hemoglobin Oxyhemoglobin Sodium Potassium Carbon Dioxide BUN Creatinine Glucose POC Glucose Calcium Phosphorus Magnesium 2.50 H Lactate Dehydrogenase Triglycerides Urine WBC (Auto) Salicylates < 0.3 L Acetaminophen 5.0 L 11/18/21 11/18/21 11/18/21 01:03 02:00 05:15 WBC RBC Hgb Hct MCH MCHC RDW Lymph % (Auto) [place] % (Auto) Lymph # (Auto) [place] # (Auto) Seg Neutrophils % Lymphocytes % (Manual) Seg Neutrophils # Seg Neutrophils # Man Lymphocytes # (Manual) D-Dimer 464.80 H ABG pH ABG pO2 ABG HCO3 35.8 H ABG O2 Saturation ABG Base Excess 7.8 H ABG Hemoglobin Oxyhemoglobin 91.9 L Sodium Potassium Carbon Dioxide BUN Creatinine Glucose POC Glucose Calcium Phosphorus Magnesium Lactate Dehydrogenase Triglycerides Urine WBC (Auto) 16.0 H Salicylates Acetaminophen 11/18/21 11/18/21 11/18/21 05:15 15:47 15:47 WBC 13.5 H RBC 5.60 H Hgb 14.9 H Hct 49.1 H MCH 27 L MCHC RDW 17.3 H Lymph % (Auto) 7.9 L [place] % (Auto) 10.1 H Lymph # (Auto) 1.1 L [place] # (Auto) 1.4 H Seg Neutrophils % 81.7 H Lymphocytes % (Manual) Seg Neutrophils # 11.0 H Seg Neutrophils # Man Lymphocytes # (Manual) D-Dimer ABG pH ABG pO2 ABG HCO3 ABG O2 Saturation ABG Base Excess ABG Hemoglobin Oxyhemoglobin Sodium Potassium Carbon Dioxide BUN Creatinine Glucose 138 H POC Glucose Calcium Phosphorus Magnesium Lactate Dehydrogenase 275 H Triglycerides Urine WBC (Auto) Salicylates Acetaminophen 11/18/21 11/18/21 11/19/21 18:45 23:33 04:58 WBC RBC Hgb Hct MCH MCHC RDW Lymph % (Auto) [place] % (Auto) Lymph # (Auto) [place] # (Auto) Seg Neutrophils % Lymphocytes % (Manual) Seg Neutrophils # Seg Neutrophils # Man Lymphocytes # (Manual) D-Dimer ABG pH ABG pO2 ABG HCO3 ABG O2 Saturation ABG Base Excess ABG Hemoglobin Oxyhemoglobin Sodium Potassium Carbon Dioxide BUN Creatinine Glucose 130 H POC Glucose 132 H 113 H Calcium Phosphorus Magnesium Lactate Dehydrogenase Triglycerides Urine WBC (Auto) Salicylates Acetaminophen 11/19/21 11/19/21 11/19/21 07:59 07:59 08:55 WBC 12.7 H RBC 5.29 H Hgb Hct 45.5 H MCH 26 L MCHC RDW 17.4 H Lymph % (Auto) 12.3 L [place] % (Auto) 9.6 H Lymph # (Auto) [place] # (Auto) 1.2 H Seg Neutrophils % 76.9 H Lymphocytes % (Manual) Seg Neutrophils # 9.7 H Seg Neutrophils # Man Lymphocytes # (Manual) D-Dimer ABG pH 7.518 H ABG pO2 77.6 L ABG HCO3 30.1 H ABG O2 Saturation ABG Base Excess 6.9 H ABG Hemoglobin Oxyhemoglobin Sodium Potassium 3.1 L D Carbon Dioxide BUN Creatinine Glucose 115 H POC Glucose Calcium 8.1 L Phosphorus Magnesium Lactate Dehydrogenase Triglycerides Urine WBC (Auto) Salicylates Acetaminophen 11/19/21 11/19/21 11/20/21 11:33 16:22 04:20 WBC 13.9 H RBC 5.44 H Hgb Hct 49.3 H MCH 26 L MCHC 29 L RDW 18.3 H Lymph % (Auto) [place] % (Auto) Lymph # (Auto) [place] # (Auto) Seg Neutrophils % Lymphocytes % (Manual) Seg Neutrophils # Seg Neutrophils # Man Lymphocytes # (Manual) D-Dimer ABG pH ABG pO2 ABG HCO3 ABG O2 Saturation ABG Base Excess ABG Hemoglobin Oxyhemoglobin Sodium Potassium Carbon Dioxide BUN Creatinine Glucose POC Glucose 119 H 112 H Calcium Phosphorus Magnesium Lactate Dehydrogenase Triglycerides Urine WBC (Auto) Salicylates Acetaminophen 11/20/21 11/20/21 11/20/21 04:20 11:07 12:02 WBC RBC Hgb Hct MCH MCHC RDW Lymph % (Auto) [place] % (Auto) Lymph # (Auto) [place] # (Auto) Seg Neutrophils % Lymphocytes % (Manual) Seg Neutrophils # Seg Neutrophils # Man Lymphocytes # (Manual) D-Dimer ABG pH 7.251 L ABG pO2 66.3 L ABG HCO3 30.2 H ABG O2 Saturation 91.8 L ABG Base Excess ABG Hemoglobin Oxyhemoglobin 89.4 L Sodium 147 H Potassium Carbon Dioxide BUN 25 H Creatinine Glucose POC Glucose 118 H Calcium Phosphorus 6.40 H Magnesium Lactate Dehydrogenase Triglycerides Urine WBC (Auto) Salicylates Acetaminophen 11/20/21 11/21/21 11/21/21 17:31 00:07 04:44 WBC 14.0 H RBC 5.08 H Hgb Hct 44.7 H MCH 26 L MCHC 29 L RDW 17.8 H Lymph % (Auto) [place] % (Auto) Lymph # (Auto) [place] # (Auto) Seg Neutrophils % Lymphocytes % (Manual) Seg Neutrophils # Seg Neutrophils # Man Lymphocytes # (Manual) D-Dimer ABG pH ABG pO2 ABG HCO3 ABG O2 Saturation ABG Base Excess ABG Hemoglobin Oxyhemoglobin Sodium Potassium Carbon Dioxide BUN Creatinine Glucose POC Glucose 139 H 147 H Calcium Phosphorus Magnesium Lactate Dehydrogenase Triglycerides Urine WBC (Auto) Salicylates Acetaminophen 11/21/21 11/21/21 11/21/21 04:44 06:06 11:45 WBC RBC Hgb Hct MCH MCHC RDW Lymph % (Auto) [place] % (Auto) Lymph # (Auto) [place] # (Auto) Seg Neutrophils % Lymphocytes % (Manual) Seg Neutrophils # Seg Neutrophils # Man Lymphocytes # (Manual) D-Dimer ABG pH ABG pO2 ABG HCO3 ABG O2 Saturation ABG Base Excess ABG Hemoglobin Oxyhemoglobin Sodium Potassium Carbon Dioxide BUN 20 H Creatinine Glucose 157 H POC Glucose 158 H 119 H Calcium Phosphorus Magnesium Lactate Dehydrogenase Triglycerides Urine WBC (Auto) Salicylates Acetaminophen 11/21/21 11/21/21 11/22/21 11:50 16:54 00:03 WBC RBC Hgb Hct MCH MCHC RDW Lymph % (Auto) [place] % (Auto) Lymph # (Auto) [place] # (Auto) Seg Neutrophils % Lymphocytes % (Manual) Seg Neutrophils # Seg Neutrophils # Man Lymphocytes # (Manual) D-Dimer ABG pH ABG pO2 61.8 L ABG HCO3 35.2 H ABG O2 Saturation 92.8 L ABG Base Excess 8.1 H ABG Hemoglobin Oxyhemoglobin 90.6 L Sodium Potassium Carbon Dioxide BUN Creatinine Glucose POC Glucose 149 H 133 H Calcium Phosphorus Magnesium Lactate Dehydrogenase Triglycerides Urine WBC (Auto) Salicylates Acetaminophen 11/22/21 11/22/21 11/22/21 04:39 04:39 04:39 WBC 14.1 H RBC Hgb Hct 43.4 H MCH 26 L MCHC RDW 17.9 H Lymph % (Auto) [place] % (Auto) Lymph # (Auto) [place] # (Auto) Seg Neutrophils % Lymphocytes % (Manual) Seg Neutrophils # Seg Neutrophils # Man Lymphocytes # (Manual) D-Dimer ABG pH ABG pO2 ABG HCO3 ABG O2 Saturation ABG Base Excess ABG Hemoglobin Oxyhemoglobin Sodium Potassium Carbon Dioxide 33 H BUN Creatinine Glucose 152 H POC Glucose Calcium Phosphorus Magnesium Lactate Dehydrogenase Triglycerides 185 H Urine WBC (Auto) Salicylates Acetaminophen 11/22/21 11/22/21 11/22/21 05:02 10:56 11:31 WBC RBC Hgb Hct MCH MCHC RDW Lymph % (Auto) [place] % (Auto) Lymph # (Auto) [place] # (Auto) Seg Neutrophils % Lymphocytes % (Manual) Seg Neutrophils # Seg Neutrophils # Man Lymphocytes # (Manual) D-Dimer ABG pH ABG pO2 55.3 L ABG HCO3 39.4 H ABG O2 Saturation 89.5 L ABG Base Excess 11.7 H ABG Hemoglobin Oxyhemoglobin 87.2 L Sodium Potassium Carbon Dioxide BUN Creatinine Glucose POC Glucose 158 H 116 H Calcium Phosphorus Magnesium Lactate Dehydrogenase Triglycerides Urine WBC (Auto) Salicylates Acetaminophen 11/22/21 11/22/21 11/23/21 17:29 23:22 04:49 WBC 13.6 H RBC 5.18 H Hgb Hct 45.6 H MCH 25 L MCHC 29 L RDW 17.5 H Lymph % (Auto) [place] % (Auto) Lymph # (Auto) [place] # (Auto) Seg Neutrophils % Lymphocytes % (Manual) Seg Neutrophils # Seg Neutrophils # Man Lymphocytes # (Manual) D-Dimer ABG pH ABG pO2 ABG HCO3 ABG O2 Saturation ABG Base Excess ABG Hemoglobin Oxyhemoglobin Sodium Potassium Carbon Dioxide BUN Creatinine Glucose POC Glucose 129 H 171 H Calcium Phosphorus Magnesium Lactate Dehydrogenase Triglycerides Urine WBC (Auto) Salicylates Acetaminophen 11/23/21 11/23/21 11/23/21 04:49 11:53 16:22 WBC RBC Hgb Hct MCH MCHC RDW Lymph % (Auto) [place] % (Auto) Lymph # (Auto) [place] # (Auto) Seg Neutrophils % Lymphocytes % (Manual) Seg Neutrophils # Seg Neutrophils # Man Lymphocytes # (Manual) D-Dimer ABG pH ABG pO2 61.8 L ABG HCO3 40.9 H ABG O2 Saturation 93.4 L ABG Base Excess 14.6 H ABG Hemoglobin 6.9 L Oxyhemoglobin 90.2 L Sodium 146 H Potassium Carbon Dioxide 36 H BUN 21 H Creatinine Glucose 155 H POC Glucose 166 H Calcium Phosphorus Magnesium Lactate Dehydrogenase Triglycerides Urine WBC (Auto) Salicylates Acetaminophen 11/23/21 11/23/21 11/24/21 17:11 23:07 05:03 WBC RBC Hgb Hct MCH MCHC RDW Lymph % (Auto) [place] % (Auto) Lymph # (Auto) [place] # (Auto) Seg Neutrophils % Lymphocytes % (Manual) Seg Neutrophils # Seg Neutrophils # Man Lymphocytes # (Manual) D-Dimer ABG pH ABG pO2 ABG HCO3 ABG O2 Saturation ABG Base Excess ABG Hemoglobin Oxyhemoglobin Sodium Potassium Carbon Dioxide BUN Creatinine Glucose POC Glucose 142 H 197 H 183 H Calcium Phosphorus Magnesium Lactate Dehydrogenase Triglycerides Urine WBC (Auto) Salicylates Acetaminophen 11/24/21 11/24/21 11/24/21 08:33 08:33 09:00 WBC RBC Hgb Hct 43.6 H MCH 26 L MCHC RDW 18.0 H Lymph % (Auto) [place] % (Auto) Lymph # (Auto) [place] # (Auto) Seg Neutrophils % Lymphocytes % (Manual) Seg Neutrophils # Seg Neutrophils # Man Lymphocytes # (Manual) D-Dimer ABG pH ABG pO2 69.1 L ABG HCO3 40.1 H ABG O2 Saturation 93.2 L ABG Base Excess 11.9 H ABG Hemoglobin Oxyhemoglobin 90.3 L Sodium Potassium 5.3 H D Carbon Dioxide 36 H BUN 25 H Creatinine 0.5 L Glucose 185 H POC Glucose Calcium Phosphorus Magnesium Lactate Dehydrogenase Triglycerides Urine WBC (Auto) Salicylates Acetaminophen 11/24/21 11/24/21 11/25/21 12:00 18:08 00:50 WBC RBC Hgb Hct MCH MCHC RDW Lymph % (Auto) [place] % (Auto) Lymph # (Auto) [place] # (Auto) Seg Neutrophils % Lymphocytes % (Manual) Seg Neutrophils # Seg Neutrophils # Man Lymphocytes # (Manual) D-Dimer ABG pH ABG pO2 67.3 L ABG HCO3 41.6 H 42.7 H ABG O2 Saturation 94.5 L ABG Base Excess 12.3 H 14.7 H ABG Hemoglobin Oxyhemoglobin 93.1 L 91.6 L Sodium Potassium Carbon Dioxide BUN Creatinine Glucose POC Glucose 168 H Calcium Phosphorus Magnesium Lactate Dehydrogenase Triglycerides Urine WBC (Auto) Salicylates Acetaminophen 11/25/21 11/25/21 11/25/21 04:57 04:57 14:18 WBC RBC 5.13 H Hgb Hct 45.1 H MCH 26 L MCHC RDW 17.7 H Lymph % (Auto) [place] % (Auto) Lymph # (Auto) [place] # (Auto) Seg Neutrophils % Lymphocytes % (Manual) Seg Neutrophils # Seg Neutrophils # Man Lymphocytes # (Manual) D-Dimer ABG pH ABG pO2 65.1 L ABG HCO3 41.7 H ABG O2 Saturation 94.2 L ABG Base Excess 13.4 H ABG Hemoglobin Oxyhemoglobin 91.3 L Sodium 146 H Potassium Carbon Dioxide 38 H BUN 26 H Creatinine 0.5 L Glucose 210 H POC Glucose Calcium Phosphorus Magnesium Lactate Dehydrogenase Triglycerides Urine WBC (Auto) Salicylates Acetaminophen 11/25/21 11/26/21 11/26/21 19:22 04:28 04:28 WBC RBC 5.05 H Hgb Hct 44.0 H MCH 26 L MCHC RDW 17.6 H Lymph % (Auto) [place] % (Auto) Lymph # (Auto) [place] # (Auto) Seg Neutrophils % Lymphocytes % (Manual) Seg Neutrophils # Seg Neutrophils # Man Lymphocytes # (Manual) D-Dimer ABG pH ABG pO2 ABG HCO3 ABG O2 Saturation ABG Base Excess ABG Hemoglobin Oxyhemoglobin Sodium 146 H Potassium Carbon Dioxide 38 H BUN 30 H Creatinine Glucose 124 H POC Glucose 151 H Calcium 10.5 H Phosphorus Magnesium Lactate Dehydrogenase Triglycerides Urine WBC (Auto) Salicylates Acetaminophen 11/26/21 11/26/21 05:50 10:28 WBC RBC Hgb Hct MCH MCHC RDW Lymph % (Auto) [place] % (Auto) Lymph # (Auto) [place] # (Auto) Seg Neutrophils % Lymphocytes % (Manual) Seg Neutrophils # Seg Neutrophils # Man Lymphocytes # (Manual) D-Dimer ABG pH ABG pO2 66.5 L ABG HCO3 39.6 H ABG O2 Saturation 92.9 L ABG Base Excess 11.4 H ABG Hemoglobin 16.8 H Oxyhemoglobin 90.3 L Sodium Potassium Carbon Dioxide BUN Creatinine Glucose POC Glucose 121 H Calcium Phosphorus Magnesium Lactate Dehydrogenase Triglycerides Urine WBC (Auto) Salicylates Acetaminophen Chest x-ray: pending Allied health notes reviewed: nursing
[2021-11-26] MEDS: HALOPERIDOL LACTATE 5 MG/1 ML INJ IV PRN ×2 (15:39→23:48)
--- NOTE | 2021-11-26 16:21 | Progress Note ---
<DILLONFILI KrystalRoxi - Last Filed: 11/26/21 16:16> Assessment and Plan Assessment and plan: This is a 81-year-old AA female with CAD, CHF, pulmonary hypertension, COPD, and tobacco abuse admitted for acute hypoxemic respiratory failure 2/2 of bilateral pneumonia vs COPD exacerbation/pulmonary edema requiring intubation and ventilatory support. Neuro: Agitation, acute toxic metabolic encephalopathy -Sedated with propofol and fentanyl -prn haldol -hold fentanyl gt per CCM -Goal RASS -2 -Seroquel twice daily -SAT/SBT when appropriate -Maintain sleep-wake cycle -Avoid benzodiazepine -Reduce risk of delirium Cardio: Acute CHF, hypertensive emergency, h/o CAD, OR, hyperlipidemia -Presented with systolic blood pressure in the 240s in the ED -S/p Cardene drip -11/22 echocardiogram with mild concentric left trickle hypertrophy, LVEF 60 to 65%, left pleural effusion -Admit BMP 867 -S/p Lasix -Coreg restarted -Blood pressure monitor per protocol -As needed hydralazine for SBP greater than 160 Pulmonary: Acute hypoxic respiratory failure, acute exacerbation of COPD, h/o COPD -CCM consulted, appreciate recommendation -Intubated in the ED on 11/18 with 8.0 ETT at 22 at the lips -A.m. vent settings: Assist-control rate 12, TV 500, PEEP 6, 40% FiO2 -See RT notes for titration -11/26 PSV -> rest on AC ON -A.m. ABG and CXR noted -VAP bundle -Pulmicort and Brovana -Continue SPO2 monitoring GI: MO, h/o GERD -Nutrition consult for tube feeding -PPI -BR: Senokot -24-hour +1 mL : Urinary retention, metabolic alkalosis, hypernatremia -Briggs reinserted on 11/20 due to retention and removed 11/26 -replace briggs AFTER third straight cath if needed -straight cath for Urine volume >350ml -Strict intake and output -Trend BMP -Intervene as needed Endo: NAD -Avoid hypoglycemia -Accu-Cheks every 6 hours -SSI ID: Bilateral pneumonia, UTI -Evidenced on CXR and UA -COVID-19 PCR negative -Follow culture data -Blood culture, urine culture, tracheal aspirate with no growth to date -Follow WBC and fever curve -s/p azithromycin and Rocephin Heme: Thrombocytosis -Monitor CBC -Transfuse to hemoglobin less than 7 -SCD to bilateral lower extremities while in bed -Lovenox subcu The high probability of a clinically significant, sudden or life threatening deterioration of the [Neuro, Resp, CV] system(s) required my full and direct attention, intervention and personal management. The aggregate critical care fina e was [60] minutes. This time is in addition to time spent performing reported procedures but includes the following: [x] Data Review and interpretation [x] Patient assessment and monitoring of vital signs [x] Documentation [x] Medication orders and management Disposition Plan: icu Total Time Spent with Patient (Minutes): 60 History Interval history: This is a 81-year-old female with CAD s/p OR, GERD, chronic back pain, HLD, neuropathy, emphysema, CHF, pulmonary HTN, COPD who presents to the emergency department on 11/18 via EMS for altered mental status. According to EMS patient was having difficulty breathing and minimally responsive but in respiratory distress initially. Respiratory status was said to have worsened in route to the hospital and the patient had been given Solu-Medrol magnesium IV however he developed pinpoint pupils and was given Narcan with improvement. Work-up in the emergency department revealed leukocytosis, elevated D-dimer, 8 UTI on UA, CXR showed bilateral pulmonary opacities possibly reflecting edema or atelectasis or pneumonia, CT chest showed evidence of pulmonary hypertension with dense consolidation along the left lower lobe concerning for pneumonia and mild interstitial pulmonary edema. Patient was admitted to the hospital service with acute hypoxic respiratory failure, acute COPD exacerbation and UTI to the ICU with consults to [facility]. Hospital Course to Date: 11/18: Patient was seen and examined in the ED. Patient is intubated and sedated on propofol and versed gtt, RASS -3 to -4. Patient is in hypertensive emergency this am, SBP in the 240s, cardene gtt was initiated, maintain SBP less than 160. Leukocytosis noted, UA significant for UTI. Lactic, procal, and CRP are normal. Patient remains afebrile, continue empiric IV abx for now. Tracheal aspirate ordered, blood culture is pending. Continue to f/u on culture data. 11/19: Patient remains intubated and sedated. Patient did not tolerate sedation vacation this am, became tachycardic, hypertensive, with elevated RR and SPO2 in the low 80s. Sedation back on, continue to wean sedation as tolerated for RASS goal of 0 to -2. Pateimt is off cardene gtt, PRN hydralazine for SPO2 above 160. Low K repleted, repeat labs in the am. 11/20: Remains on the vent and sedated, RASS -3. Plan to wean down on sedation, might need to add Seroquel if patient is not tolerating sedation. Hypernatremia and increased BUN/Cr. this am, patient is on lasix BID. Will discuss with [facility] to possibly hold or decreased IV lasix for now, FWF added for high Na. Urinary retention post briggs removal, bladder scan and straight cath per protocol. 11/21: Patient remains on the vent, unable to wean sedation at this time, Seroquel added. Titrate sedation as tolerated for RASS of 0 to -2. Briggs was reinserted overnight for urinary retention, kidney function is stable. 11/22: [facility] reduced FiO2. We will start weaning tomorrow. No acute events reported overnight. 11/23: Patient spiked a fever overnight and was cultured this morning. Attempted CPAP trial again today. An ABG obtained post trial which has been given to [facility]. Slight hypernatremia noted. 11/24: I updated patient's son today, Kwame Salamanca at [phone]. Lasix stopped today. Patient placed on CPAP trial. She lasted on CPAP all day yesterday and was rested overnight on assist control. Given Kayexalate today due to hyperkalemia. 11/25: Patient was on SBT today and was not arousable for a while and a CT head was obtained which showed no acute intracranial abnormality. Patient later became severely agitated and was switched back to assist control and placed back on sedation. Family updated today. Restarted home Coreg due to hypotension. 11/26: SBT today, Haldol as needed. Briggs was removed yesterday bladder scan x2 with urine output. Slight hypernatremia persists. Blood pressure better controlled. Hospitalist Physical - Constitutional Vitals: Temp Pulse Resp BP Pulse Ox 100.4 F H 82 19 141/63 96 11/26/21 12:00 11/26/21 14:00 11/26/21 14:00 11/26/21 14:00 11/26/21 14:00 General appearance: Present: no acute distress, other (Intubated and Sedated) - EENT Eyes: Present: PERRL, EOM intact ENT: clear oral mucosa, dentition normal - Neck Neck: Present: normal ROM - Respiratory Respiratory effort: normal Respiratory: bilateral: diminished - Cardiovascular Rhythm: regular Heart Sounds: Present: S1 & S2. Absent: systolic murmur, diastolic murmur - Extremities Extremities: no ischemia, pulses intact, pulses symmetrical, No edema, normal temperature, normal color Peripheral Pulses: within normal limits - Abdominal General gastrointestinal: soft, non-tender, non-distended, normal bowel sounds - Integumentary Integumentary: Present: warm, dry - Psychiatric Psychiatric: other (sedated) - Neurologic Neurologic: CNII-XII intact, moves all extremities - Allied Health Allied health notes reviewed: nursing, social work HEART Score - HEART Score Troponin: Troponin T < 0.010 ng/mL (0.00-0.029) 11/18/21 03:25 Results - Labs CBC & Chem 7: 11/26/21 04:28 11/26/21 04:28 Labs: Laboratory Last Values WBC 10.3 K/mm3 (4.5-11.0) 11/26/21 04:28 RBC 5.05 M/mm3 (3.65-5.03) H 11/26/21 04:28 Hgb 13.1 gm/dl (10.1-14.3) 11/26/21 04:28 Hct 44.0 % (30.3-42.9) H 11/26/21 04:28 MCV 87 fl (79-97) 11/26/21 04:28 MCH 26 pg (28-32) L 11/26/21 04:28 MCHC 30 % (30-34) 11/26/21 04:28 RDW 17.6 % (13.2-15.2) H 11/26/21 04:28 Plt Count 361 K/mm3 (140-440) 11/26/21 04:28 Lymph % (Auto) 12.3 % (13.4-35.0) L 11/19/21 07:59 [place] % (Auto) 9.6 % (0.0-7.3) H 11/19/21 07:59 Eos % (Auto) 0.7 % (0.0-4.3) 11/19/21 07:59 Baso % (Auto) 0.5 % (0.0-1.8) 11/19/21 07:59 Lymph # (Auto) 1.6 K/mm3 (1.2-5.4) 11/19/21 07:59 [place] # (Auto) 1.2 K/mm3 (0.0-0.8) H 11/19/21 07:59 Eos # (Auto) 0.1 K/mm3 (0.0-0.4) 11/19/21 07:59 Baso # (Auto) 0.1 K/mm3 (0.0-0.1) 11/19/21 07:59 Add Manual Diff Complete 11/18/21 00:19 Total Counted 100 11/18/21 00:19 Seg Neutrophils % 76.9 % (40.0-70.0) H 11/19/21 07:59 Lymphocytes % (Manual) 4.0 % (13.4-35.0) L 11/18/21 00:19 Monocytes % (Manual) 2.0 % (0.0-7.3) 11/18/21 00:19 Nucleated RBC % Not Reportable 11/18/21 00:19 Seg Neutrophils # 9.7 K/mm3 (1.8-7.7) H 11/19/21 07:59 Seg Neutrophils # Man 14.7 K/mm3 (1.8-7.7) H 11/18/21 00:19 Band Neutrophils # 0.0 K/mm3 11/18/21 00:19 Lymphocytes # (Manual) 0.6 K/mm3 (1.2-5.4) L 11/18/21 00:19 Abs React Lymphs (Man) 0.0 K/mm3 11/18/21 00:19 Monocytes # (Manual) 0.3 K/mm3 (0.0-0.8) 11/18/21 00:19 Eosinophils # (Manual) 0.0 K/mm3 (0.0-0.4) 11/18/21 00:19 Basophils # (Manual) 0.0 K/mm3 (0.0-0.1) 11/18/21 00:19 Metamyelocytes # 0.0 K/mm3 11/18/21 00:19 Myelocytes # 0.0 K/mm3 11/18/21 00:19 Promyelocytes # 0.0 K/mm3 11/18/21 00:19 Blast Cells # 0.0 K/mm3 11/18/21 00:19 WBC Morphology Not Reportable 11/18/21 00:19 Hypersegmented Neuts Not Reportable 11/18/21 00:19 Hyposegmented Neuts Not Reportable 11/18/21 00:19 Hypogranular Neuts Not Reportable 11/18/21 00:19 Smudge Cells Not Reportable 11/18/21 00:19 Toxic Granulation Not Reportable 11/18/21 00:19 Toxic Vacuolation Not Reportable 11/18/21 00:19 Dohle Bodies Not Reportable 11/18/21 00:19 Pelger-Huet Anomaly Not Reportable 11/18/21 00:19 Luis Rods Not Reportable 11/18/21 00:19 Platelet Estimate Consistent w auto 11/18/21 00:19 Clumped Platelets Not Reportable 11/18/21 00:19 Plt Clumps, EDTA Not Reportable 11/18/21 00:19 Large Platelets Not Reportable 11/18/21 00:19 Giant Platelets Not Reportable 11/18/21 00:19 Platelet Satelliting Not Reportable 11/18/21 00:19 Plt Morphology Comment Not Reportable 11/18/21 00:19 RBC Morphology Not Reportable 11/18/21 00:19 Dimorphic RBCs Not Reportable 11/18/21 00:19 Polychromasia Not Reportable 11/18/21 00:19 Hypochromasia Not Reportable 11/18/21 00:19 Poikilocytosis Not Reportable 11/18/21 00:19 Anisocytosis 1+ 11/18/21 00:19 Microcytosis Not Reportable 11/18/21 00:19 Macrocytosis Few 11/18/21 00:19 Spherocytes Not Reportable 11/18/21 00:19 Pappenheimer Bodies Not Reportable 11/18/21 00:19 Sickle Cells Not Reportable 11/18/21 00:19 Target Cells Not Reportable 11/18/21 00:19 Tear Drop Cells Not Reportable 11/18/21 00:19 Ovalocytes Not Reportable 11/18/21 00:19 Helmet Cells Not Reportable 11/18/21 00:[address] [place] Bodies Not Reportable 11/18/21 00:19 [place] Rings Not Reportable 11/18/21 00:19 Yumi Cells Not Reportable 11/18/21 00:19 Bite Cells Not Reportable 11/18/21 00:19 Crenated Cell Not Reportable 11/18/21 00:19 Elliptocytes Not Reportable 11/18/21 00:19 Acanthocytes (Spur) Not Reportable 11/18/21 00:19 Rouleaux Not Reportable 11/18/21 00:19 Hemoglobin C Crystals Not Reportable 11/18/21 00:19 Schistocytes Not Reportable 11/18/21 00:19 Malaria parasites Not Reportable 11/18/21 00:19 Shahriar Bodies Not Reportable 11/18/21 00:19 Hem Pathologist Commnt No 11/18/21 00:19 PT 12.9 Sec. (12.2-14.9) 11/18/21 00:19 INR 0.88 (0.87-1.13) 11/18/21 00:19 APTT 29.2 Sec. (24.2-36.6) 11/18/21 00:19 D-Dimer 464.80 ng/mlDDU (0-234) H 11/18/21 05:15 ABG pH 7.405 pH Units (7.350-7.450) 11/26/21 10:28 ABG pCO2 64.5 mm Hg 11/26/21 10:28 ABG pO2 66.5 mm Hg (80.0-90.0) L 11/26/21 10:28 ABG HCO3 39.6 mmol/L (20.0-26.0) H 11/26/21 10:28 ABG O2 Saturation 92.9 % (95.0-99.0) L 11/26/21 10:28 ABG O2 Content 21.3 (0.0-44) 11/26/21 10:28 ABG Base Excess 11.4 mmol/L (-2.0-3.0) H 11/26/21 10:28 ABG Hemoglobin 16.8 gm/dl (12.0-16.0) H 11/26/21 10:28 ABG Carboxyhemoglobin 2.3 % (0.0-5.0) 11/26/21 10:28 ABG Methemoglobin 0.6 % (0.0-1.5) 11/26/21 10:28 Oxyhemoglobin 90.3 % (95.0-99.0) L 11/26/21 10:28 FiO2 40 % 11/26/21 10:28 Sodium 146 mmol/L (137-145) H 11/26/21 04:28 Potassium 4.5 mmol/L (3.6-5.0) 11/26/21 04:28 Chloride 100.1 mmol/L (98-107) 11/26/21 04:28 Carbon Dioxide 38 mmol/L (22-30) H 11/26/21 04:28 Anion Gap 12 mmol/L 11/26/21 04:28 BUN 30 mg/dL (7-17) H 11/26/21 04:28 Creatinine 0.6 mg/dL (0.6-1.2) 11/26/21 04:28 Estimated GFR > 60 ml/min 11/26/21 04:28 BUN/Creatinine Ratio 50 % 11/26/21 04:28 Glucose 124 mg/dL (65-100) H 11/26/21 04:28 POC Glucose 121 mg/dL (70-105) H 11/26/21 05:50 Hemoglobin A1c 5.9 % (4-6) 11/19/21 07:59 Lactic Acid 1.40 mmol/L (0.7-2.0) 11/18/21 00:19 Calcium 10.5 mg/dL (8.4-10.2) H 11/26/21 04:28 Phosphorus 4.20 mg/dL (2.5-4.5) 11/23/21 04:49 Magnesium 1.90 mg/dL (1.7-2.3) 11/23/21 04:49 Total Bilirubin 0.40 mg/dL (0.1-1.2) 11/18/21 00:19 Direct Bilirubin < 0.2 mg/dL (0-0.2) 11/18/21 00:19 Indirect Bilirubin 0.2 mg/dL 11/18/21 00:19 AST 22 units/L (5-40) 11/18/21 00:19 ALT 25 units/L (7-56) 11/18/21 00:19 Alkaline Phosphatase 99 units/L (35-129) 11/18/21 00:19 Ammonia 54.0 umol/L (25-60) 11/18/21 00:19 Lactate Dehydrogenase 275 units/L (91-180) H 11/18/21 05:15 Troponin T < 0.010 ng/mL (0.00-0.029) 11/18/21 03:25 C-Reactive Protein 0.70 mg/dL (0.00-1.30) 11/18/21 15:47 NT-Pro-B Natriuret Pep 867.7 pg/mL (0-900) 11/18/21 00:19 Total Protein 7.4 g/dL (6.3-8.2) 11/18/21 00:19 Albumin 4.0 g/dL (3.9-5) 11/18/21 00:19 Albumin/Globulin Ratio 1.2 % 11/18/21 00:19 Triglycerides 185 mg/dL (2-149) H 11/22/21 04:39 Lipase 13 units/L (13-60) 11/18/21 00:19 Procalcitonin 0.12 ng/mL (<0.15) 11/18/21 05:15 Urine Color Yellow (Yellow) 11/23/21 12:24 Urine Turbidity Clear (Clear) 11/23/21 12:24 Urine pH 7.0 (5.0-7.0) 11/23/21 12:24 Ur Specific [place] 1.018 (1.003-1.030) 11/23/21 12:24 Urine Protein <15 mg/dl mg/dL (Negative) 11/23/21 12:24 Urine Glucose (UA) Neg mg/dL (Negative) 11/23/21 12:24 Urine Ketones Neg mg/dL (Negative) 11/23/21 12:24 Urine Blood Neg (Negative) 11/23/21 12:24 Urine Nitrite Neg (Negative) 11/23/21 12:24 Urine Bilirubin Neg (Negative) 11/23/21 12:24 Urine Urobilinogen 4.0 mg/dL (<2.0) 11/23/21 12:24 Ur Leukocyte Esterase Neg (Negative) 11/23/21 12:24 Urine WBC (Auto) 1.0 /HPF (0.0-6.0) 11/23/21 12:24 Urine RBC (Auto) 1.0 /HPF (0.0-6.0) 11/23/21 12:24 U Epithel Cells (Auto) 1.0 /HPF (0-13.0) 11/18/21 01:03 Hyaline Casts 3 /LPF 11/18/21 01:03 Urine Mucus Few /HPF 11/18/21 01:03 Salicylates < 0.3 mg/dL (2.8-20.0) L 11/18/21 00:19 Urine Opiates Screen Negative 11/18/21 01:03 Urine Methadone Screen Negative 11/18/21 01:03 Acetaminophen 5.0 ug/mL (10.0-30.0) L 11/18/21 00:19 Ur Barbiturates Screen Negative 11/18/21 01:03 Ur Phencyclidine Scrn Negative 11/18/21 01:03 Ur Amphetamines Screen Negative 11/18/21 01:03 U Benzodiazepines Scrn Negative 11/18/21 01:03 Urine Cocaine Screen Negative 11/18/21 01:03 U Marijuana (THC) Screen Negative 11/18/21 01:03 Drugs of Abuse Note Disclamer 11/18/21 01:03 Plasma/Serum Alcohol < 0.01 % (0-0.07) 11/18/21 00:19 Coronavirus (PCR) Negative (Negative) 11/18/21 Unknown Microbiology: Microbiology 11/23/21 12:27 Peripheral/Venous Blood Culture - Preliminary NO GROWTH AFTER 72 HOURS 11/23/21 12:27 Peripheral/Venous Blood Culture - Preliminary NO GROWTH AFTER 72 HOURS Briggs/IV: Voiding Method External Female Catheter Active Medications - Current Medications Current Medications: Generic Name Dose Route Start Last Admin Trade Name Freq PRN Reason Stop Dose Admin Acetaminophen 650 mg 11/18/21 03:10 11/22/21 19:49 Acetaminophen 650 Mg Rect Supp ND 650 mg Q6H PRN Administration Pain MILD(1-3)/Fever >100.5/MONTIEL Acetaminophen 650 mg 11/23/21 00:56 11/24/21 12:32 Acetaminophen 325 Mg/10.15 Ml Oral Liqd Unit Dose FEEDTUBE 650 mg Q6H PRN Administration Non Cardiac Pain or Temp>100.5 Lipase/Protease/Amylase 1 each 11/18/21 16:10 Lipase 10,500/Protease 25,000/Amylase 43,750 (Units) Dr Cap FEEDTUBE PRN PRN For Clogged Feeding Tube Arformoterol Tartrate 15 mcg 11/18/21 20:00 11/26/21 09:36 Arformoterol 15 Mcg/2 Ml Nebu IH 15 mcg Q12HRT PAULINA Administration Budesonide 0.5 mg 11/18/21 20:00 11/26/21 09:36 Budesonide 0.5 Mg/2 Ml Nebu IH 0.5 mg Q12HRT PAULINA Administration Carvedilol 12.5 mg 11/25/21 13:00 11/26/21 09:47 Carvedilol 12.5 Mg Tab FEEDTUBE 12.5 mg BID PAULINA Administration Dextrose 50 ml 11/18/21 10:40 Dextrose 50% In Water (25gm) 50 Ml Syringe IV Q30MIN PRN Hypoglycemia Protocol Enoxaparin Sodium 40 mg 11/19/21 22:00 11/25/21 21:15 Enoxaparin 40 Mg/0.4 Ml Inj SUB-Q 40 mg QDAY@2200 PAULINA Administration Protocol Famotidine 20 mg 11/20/21 10:00 11/26/21 09:47 Famotidine 20 Mg Tab FEEDTUBE 20 mg BID PAULINA Administration Fentanyl 50 mcg 11/18/21 13:10 11/25/21 09:49 Fentanyl 100 Mcg/2 Ml Inj IV 50 mcg Q10MIN PRN Administration ANALGESIA Haloperidol Lactate 5 mg 11/26/21 15:00 11/26/21 15:39 Haloperidol Lactate 5 Mg/1 Ml Inj IV 5 mg Q8HR PRN Administration Agitation Hydralazine HCl 10 mg 11/18/21 10:44 11/23/21 21:54 Hydralazine 20 Mg/1 Ml Inj IV 10 mg Q4HR PRN Administration Hypertension Hydrophilic Ointment 1 applic 11/18/21 15:26 Lip Therapy Vaseline TP Q2HR PRN Dry Lips Propofol 1,000 mg in 100 mls @ 2.55 mls/hr 11/18/21 02:00 11/22/21 18:13 Diprivan 10 Mg/Ml IV Infused TITR PAULINA Titration Protocol 5 MCG/KG/MIN Fentanyl Citrate 2,000 mcg in 100 mls @ 4.25 mls/hr 11/18/21 14:00 11/26/21 12:49 Fentanyl Drip Premix IV Infused TITR PENDING SALE TO [facility] Titration Protocol 1 MCG/KG/HR Insulin Human Lispro 0 unit 11/18/21 12:00 11/26/21 12:49 Insulin Lispro 100 Unit/Ml SUB-Q Not Given Q6HR PENDING SALE TO [facility] Protocol Magnesium Hydroxide 30 ml 11/18/21 03:10 Magnesium Hydroxide (Mom) Oral Liqd Udc PO Q4H PRN Constipation Multi-Ingred Cream/Lotion/Oil/Oint 1 applic 11/18/21 15:26 Mineral Oil/Petrolatum, White Ophth Oint 3.5 Gm OU Q4HR PRN Dry Eye(s) Ondansetron HCl 4 mg 11/18/21 03:10 Ondansetron 4 Mg/2 Ml Inj IV Q8H PRN Nausea And Vomiting Quetiapine Fumarate 100 mg 11/21/21 22:00 11/26/21 09:47 Quetiapine 100 Mg Tab PO 100 mg BID PAULINA Administration Senna/Docusate Sodium 1 tab 11/18/21 22:00 11/26/21 09:46 Sennosides/Docusate Sodium 8.6/50 Mg Tab FEEDTUBE 1 tab BID PAULINA Administration Simple Syrup 15 ml 11/18/21 16:10 Simple Syrup 15 Ml FEEDTUBE PRN PRN Hypoglycemia Simple Syrup 30 ml 11/18/21 16:10 Simple Syrup 15 Ml FEEDTUBE PRN PRN Hypoglycemia Sodium Bicarbonate 325 mg 11/18/21 16:10 Sodium Bicarbonate 325 Mg Tab FEEDTUBE PRN PRN For Clogged Feeding Tube Nutrition/Malnutrition Assess - Dietary Evaluation Nutrition/Malnutrition Findings: Nutrition Notes Start: 11/18/21 10:45 Freq: Status: Active Protocol: Document 11/24/21 12:07 LEONARDO (Rec: 11/24/21 13:29 LEONARDO [id number]) Nutrition Notes Initial or Follow up Brief Note Current Diet TF-Promote @ 65 ml/hr (since D 11/18). Height 5 ft 8 in Weight 81.6 kg [place] Body Weight (kg) 63.63 BMI 27.3 Weight change and time frame No body weight change reported . Weight Status Overweight Subjective/Other Information RD consult for TF tolerance. TF continues as prescribed. Percent of energy/protein needs met: rescribed TF-Promote @ 65 ml/ hr provides for energy/protein needs (1,570 Kcal/98 g) during LOS; 95% Kcal; 96% AA. #1 Nutrition Diagnosis Inadequate oral intake Diagnosis Progress(for reassessment Continues documentation) Nutrition Intervention Nutrition Support: Continue Promote @ 65 ml/hr. Flush: 60 ml water Q 4 hr. Goal #1 Provide at least 75% of energy /protein needs through Enteral Feeding during LOS. Follow-Up By: 12/01/21 Additional Comments Continue monitoring TF tolerance, and BM. <ELEAZAR SCHMID - Last Filed: 11/30/21 23:51> Assessment and Plan Assessment and plan: I saw and evaluated the patient. Discussed with the nurse practitioner and agree with their findings and plan as documented in this note. Hospitalist Physical - Constitutional Vitals: Temp Pulse Resp BP Pulse Ox 97.6 F 58 L 18 136/59 95 11/30/21 20:00 11/30/21 22:46 11/30/21 22:10 11/30/21 22:46 11/30/21 18:01 HEART Score - HEART Score Troponin: Troponin T < 0.010 ng/mL (0.00-0.029) 11/18/21 03:25 Results - Labs CBC & Chem 7: 11/30/21 04:42 11/30/21 04:42 Labs: Laboratory Last Values WBC 10.4 K/mm3 (4.5-11.0) 11/30/21 04:42 RBC 5.05 M/mm3 (3.65-5.03) H 11/30/21 04:42 Hgb 13.1 gm/dl (10.1-14.3) 11/30/21 04:42 Hct 43.6 % (30.3-42.9) H 11/30/21 04:42 MCV 86 fl (79-97) 11/30/21 04:42 MCH 26 pg (28-32) L 11/30/21 04:42 MCHC 30 % (30-34) 11/30/21 04:42 RDW 17.5 % (13.2-15.2) H 11/30/21 04:42 Plt Count 431 K/mm3 (140-440) 11/30/21 04:42 Lymph % (Auto) 12.3 % (13.4-35.0) L 11/19/21 07:59 [place] % (Auto) 9.6 % (0.0-7.3) H 11/19/21 07:59 Eos % (Auto) 0.7 % (0.0-4.3) 11/19/21 07:59 Baso % (Auto) 0.5 % (0.0-1.8) 11/19/21 07:59 Lymph # (Auto) 1.6 K/mm3 (1.2-5.4) 11/19/21 07:59 [place] # (Auto) 1.2 K/mm3 (0.0-0.8) H 11/19/21 07:59 Eos # (Auto) 0.1 K/mm3 (0.0-0.4) 11/19/21 07:59 Baso # (Auto) 0.1 K/mm3 (0.0-0.1) 11/19/21 07:59 Add Manual Diff Complete 11/18/21 00:19 Total Counted 100 11/18/21 00:19 Seg Neutrophils % 76.9 % (40.0-70.0) H 11/19/21 07:59 Lymphocytes % (Manual) 4.0 % (13.4-35.0) L 11/18/21 00:19 Monocytes % (Manual) 2.0 % (0.0-7.3) 11/18/21 00:19 Nucleated RBC % Not Reportable 11/18/21 00:19 Seg Neutrophils # 9.7 K/mm3 (1.8-7.7) H 11/19/21 07:59 Seg Neutrophils # Man 14.7 K/mm3 (1.8-7.7) H 11/18/21 00:19 Band Neutrophils # 0.0 K/mm3 11/18/21 00:19 Lymphocytes # (Manual) 0.6 K/mm3 (1.2-5.4) L 11/18/21 00:19 Abs React Lymphs (Man) 0.0 K/mm3 11/18/21 00:19 Monocytes # (Manual) 0.3 K/mm3 (0.0-0.8) 11/18/21 00:19 Eosinophils # (Manual) 0.0 K/mm3 (0.0-0.4) 11/18/21 00:19 Basophils # (Manual) 0.0 K/mm3 (0.0-0.1) 11/18/21 00:19 Metamyelocytes # 0.0 K/mm3 11/18/21 00:19 Myelocytes # 0.0 K/mm3 11/18/21 00:19 Promyelocytes # 0.0 K/mm3 11/18/21 00:19 Blast Cells # 0.0 K/mm3 11/18/21 00:19 WBC Morphology Not Reportable 11/18/21 00:19 Hypersegmented Neuts Not Reportable 11/18/21 00:19 Hyposegmented Neuts Not Reportable 11/18/21 00:19 Hypogranular Neuts Not Reportable 11/18/21 00:19 Smudge Cells Not Reportable 11/18/21 00:19 Toxic Granulation Not Reportable 11/18/21 00:19 Toxic Vacuolation Not Reportable 11/18/21 00:19 Dohle Bodies Not Reportable 11/18/21 00:19 Pelger-Huet Anomaly Not Reportable 11/18/21 00:19 Luis Rods Not Reportable 11/18/21 00:19 Platelet Estimate Consistent w auto 11/18/21 00:19 Clumped Platelets Not Reportable 11/18/21 00:19 Plt Clumps, EDTA Not Reportable 11/18/21 00:19 Large Platelets Not Reportable 11/18/21 00:19 Giant Platelets Not Reportable 11/18/21 00:19 Platelet Satelliting Not Reportable 11/18/21 00:19 Plt Morphology Comment Not Reportable 11/18/21 00:19 RBC Morphology Not Reportable 11/18/21 00:19 Dimorphic RBCs Not Reportable 11/18/21 00:19 Polychromasia Not Reportable 11/18/21 00:19 Hypochromasia Not Reportable 11/18/21 00:19 Poikilocytosis Not Reportable 11/18/21 00:19 Anisocytosis 1+ 11/18/21 00:19 Microcytosis Not Reportable 11/18/21 00:19 Macrocytosis Few 11/18/21 00:19 Spherocytes Not Reportable 11/18/21 00:19 Pappenheimer Bodies Not Reportable 11/18/21 00:19 Sickle Cells Not Reportable 11/18/21 00:19 Target Cells Not Reportable 11/18/21 00:19 Tear Drop Cells Not Reportable 11/18/21 00:19 Ovalocytes Not Reportable 11/18/21 00:19 Helmet Cells Not Reportable 11/18/21 00:[address] [place] Bodies Not Reportable 11/18/21 00:19 [place] Rings Not Reportable 11/18/21 00:19 Yumi Cells Not Reportable 11/18/21 00:19 Bite Cells Not Reportable 11/18/21 00:19 Crenated Cell Not Reportable 11/18/21 00:19 Elliptocytes Not Reportable 11/18/21 00:19 Acanthocytes (Spur) Not Reportable 11/18/21 00:19 Rouleaux Not Reportable 11/18/21 00:19 Hemoglobin C Crystals Not Reportable 11/18/21 00:19 Schistocytes Not Reportable 11/18/21 00:19 Malaria parasites Not Reportable 11/18/21 00:19 Shahriar Bodies Not Reportable 11/18/21 00:19 Hem Pathologist Commnt No 11/18/21 00:19 PT 12.9 Sec. (12.2-14.9) 11/18/21 00:19 INR 0.88 (0.87-1.13) 11/18/21 00:19 APTT 29.2 Sec. (24.2-36.6) 11/18/21 00:19 D-Dimer 464.80 ng/mlDDU (0-234) H 11/18/21 05:15 ABG pH 7.357 (7.320-7.450) 11/30/21 12:04 POC ABG pCO2 60.0 mmHg (32.0-48.0) H 11/30/21 12:04 ABG pCO2 64.5 mm Hg 11/26/21 10:28 POC ABG pO2 68.3 mmHg (83-108) L 11/30/21 12:04 ABG pO2 66.5 mm Hg (80.0-90.0) L 11/26/21 10:28 POC ABG HCO3 32.9 11/30/21 12:04 ABG HCO3 39.6 mmol/L (20.0-26.0) H 11/26/21 10:28 ABG O2 Saturation 92.3 (0-100) 11/30/21 12:04 ABG O2 Content 21.3 (0.0-44) 11/26/21 10:28 POC ABG Base Excess 5.5 11/30/21 12:04 ABG Base Excess 11.4 mmol/L (-2.0-3.0) H 11/26/21 10:28 ABG Hemoglobin 14.4 (12.0-17.5) 11/30/21 12:04 ABG Oxyhemoglobin 90.9 (94-98) L 11/30/21 12:04 ABG Carboxyhemoglobin 2.3 % (0.0-5.0) 11/26/21 10:28 ABG Methemoglobin 0.3 (0.0-1.5) 11/30/21 12:04 ABG Sodium 145.1 mmol/L (136.0-145.0) H 11/30/21 12:04 ABG Potassium 4.0 mmol/L (3.40-4.50) 11/30/21 12:04 ABG Chloride 102.0 mmol/L (98-107) 11/30/21 12:04 ABG Glucose 122 mg/dL (65-95) H 11/30/21 12:04 Oxyhemoglobin 90.3 % (95.0-99.0) L 11/26/21 10:28 Carboxyhemoglobin 1.2 (0.5-1.5) 11/30/21 12:04 FiO2 40 % 11/26/21 10:28 FiO2 % 40 11/30/21 12:04 Sodium 143 mmol/L (137-145) 11/30/21 04:42 Potassium 4.6 mmol/L (3.6-5.0) D 11/30/21 04:42 Chloride 101.8 mmol/L (98-107) 11/30/21 04:42 Carbon Dioxide 28 mmol/L (22-30) 11/30/21 04:42 Anion Gap 18 mmol/L 11/30/21 04:42 BUN 32 mg/dL (7-17) H 11/30/21 04:42 Creatinine 0.5 mg/dL (0.6-1.2) L 11/30/21 04:42 Estimated GFR > 60 ml/min 11/30/21 04:42 BUN/Creatinine Ratio 64 % 11/30/21 04:42 Glucose 178 mg/dL (65-100) H 11/30/21 04:42 POC Glucose 124 mg/dL (70-105) H 11/30/21 17:35 Hemoglobin A1c 5.9 % (4-6) 11/19/21 07:59 Lactic Acid 1.40 mmol/L (0.7-2.0) 11/18/21 00:19 Calcium 9.6 mg/dL (8.4-10.2) 11/30/21 04:42 Phosphorus 3.30 mg/dL (2.5-4.5) 11/29/21 05:51 Magnesium 2.20 mg/dL (1.7-2.3) 11/29/21 05:51 Total Bilirubin 0.40 mg/dL (0.1-1.2) 11/18/21 00:19 Direct Bilirubin < 0.2 mg/dL (0-0.2) 11/18/21 00:19 Indirect Bilirubin 0.2 mg/dL 11/18/21 00:19 AST 22 units/L (5-40) 11/18/21 00:19 ALT 25 units/L (7-56) 11/18/21 00:19 Alkaline Phosphatase 99 units/L (35-129) 11/18/21 00:19 Ammonia 54.0 umol/L (25-60) 11/18/21 00:19 Lactate Dehydrogenase 275 units/L (91-180) H 11/18/21 05:15 Troponin T < 0.010 ng/mL (0.00-0.029) 11/18/21 03:25 C-Reactive Protein 0.70 mg/dL (0.00-1.30) 11/18/21 15:47 NT-Pro-B Natriuret Pep 867.7 pg/mL (0-900) 11/18/21 00:19 Total Protein 7.4 g/dL (6.3-8.2) 11/18/21 00:19 Albumin 4.0 g/dL (3.9-5) 11/18/21 00:19 Albumin/Globulin Ratio 1.2 % 11/18/21 00:19 Triglycerides 185 mg/dL (2-149) H 11/22/21 04:39 Lipase 13 units/L (13-60) 11/18/21 00:19 Procalcitonin 0.12 ng/mL (<0.15) 11/18/21 05:15 Arterial Blood Glucose 122 mg/dL (65-95) H 11/30/21 12:04 Arterial Blood Ionized Calcium 5.2 mg/dL (4.6-5.3) 11/29/21 03:51 Urine Color Yellow (Yellow) 11/23/21 12:24 Urine Turbidity Clear (Clear) 11/23/21 12:24 Urine pH 7.0 (5.0-7.0) 11/23/21 12:24 Ur Specific [place] 1.018 (1.003-1.030) 11/23/21 12:24 Urine Protein <15 mg/dl mg/dL (Negative) 11/23/21 12:24 Urine Glucose (UA) Neg mg/dL (Negative) 11/23/21 12:24 Urine Ketones Neg mg/dL (Negative) 11/23/21 12:24 Urine Blood Neg (Negative) 11/23/21 12:24 Urine Nitrite Neg (Negative) 11/23/21 12:24 Urine Bilirubin Neg (Negative) 11/23/21 12:24 Urine Urobilinogen 4.0 mg/dL (<2.0) 11/23/21 12:24 Ur Leukocyte Esterase Neg (Negative) 11/23/21 12:24 Urine WBC (Auto) 1.0 /HPF (0.0-6.0) 11/23/21 12:24 Urine RBC (Auto) 1.0 /HPF (0.0-6.0) 11/23/21 12:24 U Epithel Cells (Auto) 1.0 /HPF (0-13.0) 11/18/21 01:03 Hyaline Casts 3 /LPF 11/18/21 01:03 Urine Mucus Few /HPF 11/18/21 01:03 Salicylates < 0.3 mg/dL (2.8-20.0) L 11/18/21 00:19 Urine Opiates Screen Negative 11/18/21 01:03 Urine Methadone Screen Negative 11/18/21 01:03 Acetaminophen 5.0 ug/mL (10.0-30.0) L 11/18/21 00:19 Ur Barbiturates Screen Negative 11/18/21 01:03 Ur Phencyclidine Scrn Negative 11/18/21 01:03 Ur Amphetamines Screen Negative 11/18/21 01:03 U Benzodiazepines Scrn Negative 11/18/21 01:03 Urine Cocaine Screen Negative 11/18/21 01:03 U Marijuana (THC) Screen Negative 11/18/21 01:03 Drugs of Abuse Note Disclamer 11/18/21 01:03 Plasma/Serum Alcohol < 0.01 % (0-0.07) 11/18/21 00:19 Coronavirus (PCR) Negative (Negative) 11/18/21 Unknown Briggs/IV: Voiding Method Indwelling Catheter Active Medications - Current Medications Current Medications: Generic Name Dose Route Start Last Admin Trade Name Freq PRN Reason Stop Dose Admin Acetaminophen 650 mg 11/18/21 03:10 11/22/21 19:49 Acetaminophen 650 Mg Rect Supp ND 650 mg Q6H PRN Administration Pain MILD(1-3)/Fever >100.5/MONTIEL Acetaminophen 650 mg 11/23/21 00:56 11/28/21 05:37 Acetaminophen 325 Mg/10.15 Ml Oral Liqd Unit Dose FEEDTUBE 650 mg Q6H PRN Administration Non Cardiac Pain or Temp>100.5 Acetylcysteine 200 mg 11/30/21 20:00 11/30/21 22:07 Acetylcysteine 20% 200 Mg/1 Ml *For Inhalation Use* INHALATION 12/03/21 19:59 Not Given Q6HRT PAULINA Albuterol/Ipratropium 1 ampul 11/30/21 15:00 11/30/21 22:04 Ipratropium/Albuterol Sulfate 3 Ml Ampul.Neb IH 1 ampul Q6HRT PAULINA Administration Amlodipine Besylate 10 mg 11/27/21 10:00 11/30/21 10:10 Amlodipine 10 Mg Tab PO 10 mg DAILY PAULINA Administration Lipase/Protease/Amylase 1 each 11/29/21 15:50 Lipase 10,500/Protease 25,000/Amylase 43,750 (Units) Dr [place] FEEDTUBE PRN PRN For Clogged Feeding Tube Arformoterol Tartrate 15 mcg 11/18/21 20:00 11/30/21 22:03 Arformoterol 15 Mcg/2 Ml Nebu IH 15 mcg Q12HRT PAULINA Administration Aspirin 81 mg 11/27/21 10:00 11/30/21 10:09 Aspirin Ec 81 Mg Tab PO 81 mg QDAY PAULINA Administration Budesonide 0.5 mg 11/18/21 20:00 11/30/21 22:03 Budesonide 0.5 Mg/2 Ml Nebu IH 0.5 mg Q12HRT PAULINA Administration Buspirone HCl 7.5 mg 11/28/21 22:00 11/30/21 22:47 Buspirone 5 Mg Tab PO 7.5 mg BID PAULINA Administration Carvedilol 12.5 mg 11/25/21 13:00 11/30/21 22:46 Carvedilol 12.5 Mg Tab FEEDTUBE Not Given BID PAULINA Dextrose 50 ml 11/18/21 10:40 Dextrose 50% In Water (25gm) 50 Ml Syringe IV Q30MIN PRN Hypoglycemia Protocol Enoxaparin Sodium 40 mg 11/19/21 22:00 11/30/21 22:48 Enoxaparin 40 Mg/0.4 Ml Inj SUB-Q 40 mg QDAY@2200 PAULINA Administration Protocol Famotidine 20 mg 11/20/21 10:00 11/30/21 22:47 Famotidine 20 Mg Tab FEEDTUBE 20 mg BID PAULINA Administration Fentanyl 50 mcg 11/27/21 11:45 11/30/21 12:09 Fentanyl 100 Mcg/2 Ml Inj IV 50 mcg Q10MIN PRN Administration ANALGESIA Haloperidol Lactate 5 mg 11/26/21 15:00 11/27/21 04:31 Haloperidol Lactate 5 Mg/1 Ml Inj IV 5 mg Q8HR PRN Administration Agitation Hydralazine HCl 10 mg 11/18/21 10:44 11/27/21 07:34 Hydralazine 20 Mg/1 Ml Inj IV 10 mg Q4HR PRN Administration Hypertension Hydrophilic Ointment 1 applic 11/18/21 15:26 Lip Therapy Vaseline TP Q2HR PRN Dry Lips Dexmedetomidine HCl 400 mcg/ 104 mls @ 4.243 mls/hr 11/27/21 11:00 11/30/21 13:00 Sodium Chloride IV 0 mcg/kg/hr TITRATE PAULINA 0 mls/hr Titration Protocol 0.2 MCG/KG/HR Fentanyl Citrate 2,000 mcg in 100 mls @ 4.08 mls/hr 11/27/21 12:00 11/30/21 22:48 Fentanyl Drip Premix IV 3 mcg/kg/hr TITR PAULINA 12.24 mls/hr Administration Protocol 1 MCG/KG/HR Insulin Human Lispro 0 unit 11/18/21 12:00 11/30/21 18:10 Insulin Lispro 100 Unit/Ml SUB-Q Not Given Q6HR PENDING SALE TO [facility] Protocol Magnesium Hydroxide 30 ml 11/18/21 03:10 Magnesium Hydroxide (Mom) Oral Liqd Udc PO Q4H PRN Constipation Methylprednisolone Sodium Succinate 30 mg 11/29/21 12:00 11/30/21 18:08 Methylprednisolone Sod Succinate 40 Mg/1 Ml Inj IV 12/01/21 06:01 30 mg Q6HR PAULINA Administration Multi-Ingred Cream/Lotion/Oil/Oint 1 applic 11/18/21 15:26 Mineral Oil/Petrolatum, White Ophth Oint 3.5 Gm OU Q4HR PRN Dry Eye(s) Ondansetron HCl 4 mg 11/18/21 03:10 Ondansetron 4 Mg/2 Ml Inj IV Q8H PRN Nausea And Vomiting Oxycodone HCl 5 mg 11/27/21 09:50 Oxycodone 5 Mg Tab PO Q6H PRN Pain, Moderate (4-6) Quetiapine Fumarate 200 mg 11/30/21 22:00 11/30/21 22:47 Quetiapine 200 Mg Tab PO 200 mg BID PAULINA Administration Scopolamine 1 each 11/30/21 15:00 11/30/21 14:55 Scopolamine Transdermal Patch 72 Hr TD 1 each Q3D PAULINA Administration Senna/Docusate Sodium 1 tab 11/18/21 22:00 11/30/21 22:47 Sennosides/Docusate Sodium 8.6/50 Mg Tab FEEDTUBE 1 tab BID PAULINA Administration Simple Syrup 15 ml 11/29/21 15:50 Simple Syrup 15 Ml FEEDTUBE PRN PRN Hypoglycemia Simple Syrup 30 ml 11/29/21 15:50 Simple Syrup 15 Ml FEEDTUBE PRN PRN Hypoglycemia Sodium Bicarbonate 325 mg 11/29/21 15:50 Sodium Bicarbonate 325 Mg Tab FEEDTUBE PRN PRN For Clogged Feeding Tube Nutrition/Malnutrition Assess - Dietary Evaluation Nutrition/Malnutrition Findings: Nutrition Notes Start: 11/18/21 10:45 Freq: Status: Active Protocol: Document 11/29/21 15:42 ROSE (Rec: 11/29/21 15:50 ROSE [id number]) Nutrition Notes Initial or Follow up Reassessment Current Diagnosis COPD,Coronary Artery Disease, Heart Failure,Respiratory Failure,Hyperlipidemia Other Pertinent Diagnosis Toxic metabolic encephalopathy , Bilat pneu, UTI Current Diet TF - Promote at 65ml/hr Labs/Tests BUN 42 Pertinent Medications Reviewed Height 5 ft 8 in Weight 81.6 kg [place] Body Weight (kg) 63.63 BMI 27.3 Weight Status Overweight Subjective/Other Information Pt extubated on 11/27/21, however she was re-intubated on the same day sec to resp distress. TF infusing at 55ml /hr; per RN, will increase to goal rate this evening. Percent of energy/protein needs met: 82% energy 84% pro Burn Absent Trauma Absent #1 Nutrition Diagnosis Inadequate oral intake Diagnosis Progress(for reassessment Continues documentation) Is patient on ventilator? Yes Is Patient Ambulatory and/or Out of Bed No REE-([place]-St. Jeor-confined to bed) 1614.000 Calculation Used for Recommendations [place]-[facility] Jeor Additional Notes Pro needs 1.2-2g/k-163g/ day Fluid needs 1ml/kcal Nutrition Intervention Nutrition Support: Advance TF rate to goal of 65ml/hr and provide 50ml water flush q4h. Kcal 1,560 Protein (gm) 98 Carbohydrates (gm) 203 Fat (gm) 41 Fluid (mL) 1,309 Fiber (gm) 0 Goal #1 TF tolerance Goal #2 TF to meet at least 75% energy and pro needs Follow-Up By: 12/03/21 Additional Comments F/U: TF goal rate and tolerance, vent status
[2021-11-26] MEDS: fentaNYL 100 MCG/2 ML INJ IV PRN (19:34)
[2021-11-26] MEDS: ENOXAPARIN 40 MG/0.4 ML INJ SUB-Q SCH (21:03)
[2021-11-27] MEDS: HALOPERIDOL LACTATE 5 MG/1 ML INJ IV PRN (04:31)
--- NOTE | 2021-11-27 06:02 | Progress Note ---
Assessment and Plan Acute exacerbation of chronic obstructive lung disease Acute hypoxemic respiratory failure Acute congestive heart failure exacerbation (Flash Pulmonary edema) Community-acquired pneumonia Leukocytosis History of coronary artery disease Gastroesophageal reflux disease Arthritis Hyperlipidemia Obesity Elevated D-dimers Acute toxic metabolic encephalopathy Urinary tract infection Hypertensive emergency Hypernatremia She is obeying one step commands Place her on SBT, stop tube feedings, with plan to liberate from MVS Give one dose of Furosemide- she has alveolar edema on the most recent imaging Once she is extubated, OGT will come out. 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 to evaluate, PT/OT - Daily SAT and SBT assessment as tolerated - continue to wean supplemental oxygen for target O2 sat's > 90% acutely - VAP bundle addressed - continue lung protective strategies - continue bronchodilators with pulmonary hygiene per RT - wean per pulmonary driven protocols otherwise - avoid nephrotoxins, renally dose all medications - continue accuchecks with glycemic control per SSI (While critically ill target blood glucose of 140-180 mg/dL; avoid hypoglycemia) - sedation prn for target RASS 0 to -1 - continue to avoid benzodiazepines, reduce the possibility of delirium - prn analgesia per CPOT score - continue enteral nutritional support at goal rate as tolerated -Stress ulcer and VTE prophylaxis - continue mobility protocols for pressure ulcer prevention - Monitor hemodynamics closely - continue other care per attending / other consultants COVID SPECIFIC INTERVENTIONS: - COVID-19 test negative CONDITION: CRITICAL PROGNOSIS: GUARDED CODE STATUS: FULL CODE The high probability of a clinically significant, sudden or life-threatening deterioration of the [respiratory, cardiovascular & neurologic] system(s) required my full and direct attention, intervention and personal management. The aggregate critical care time was [34] minutes without overlap. Time includes spent on; [x] Data Review and interpretation [x] Patient assessment and monitoring of vital signs [x] Documentation [x] Medication orders and management Subjective Date of service: 11/27/21 Principal diagnosis: AE-COPD; AHRF; CHF (? new onset); CAP; CAD; Obesity; HTNsive Emergency Interval history: SUMMARY This is a 81-year-old female with CAD s/p [place], GERD, chronic back pain, HLD, neuropathy, emphysema, CHF, pulmonary HTN, COPD who presents to the emergency department on 12/23 via EMS for altered mental status. According to EMS patient was having difficulty breathing and minimally responsive but in respiratory distress initially. Respiratory status was said to have worsened in route to the hospital and the patient had been given Solu-Medrol magnesium IV however he developed pinpoint pupils and was given Narcan with improvement. Work-up in the emergency department revealed leukocytosis, elevated D-dimer, 8 UTI on UA, CXR showed bilateral pulmonary opacities possibly reflecting edema or atelectasis or pneumonia, CT chest showed evidence of pulmonary hypertension with dense consolidation along the left lower lobe concerning for pneumonia and mild interstitial pulmonary edema. Patient was admitted to the hospital service with acute hypoxic respiratory failure, acute COPD exacerbation and UTI to the ICU with consults to CCM. Patient seen adn examined. Vitals, labs, medications, chart and imaging reviewed. Discussed with respiratory and nursing care staff. Urinary retention requiring straight catheterization x2, Bhandari re-inserted. She has been trying to pull at her ETT all night. No reported fevers, no diarrhe a, no vomiting. Tolerating tube feeding Objective Vital Signs - 12hr 11/26/21 11/26/21 11/26/21 19:00 19:36 19:37 Temperature Pulse Rate 93 H 84 Pulse Rate [ Anterior Bilateral Throughout] Pulse Rate [ 82 From Monitor] Respiratory 19 24 Rate Respiratory Rate [Anterior Bilateral Throughout] Blood Pressure 162/63 O2 Sat by Pulse 98 94 Oximetry 11/26/21 11/26/21 11/26/21 19:56 20:00 20:10 Temperature 98.8 F Pulse Rate 93 H 105 H Pulse Rate [ 89 Anterior Bilateral Throughout] Pulse Rate [ From Monitor] Respiratory 23 Rate Respiratory 13 Rate [Anterior Bilateral Throughout] Blood Pressure 137/53 O2 Sat by Pulse 99 97 Oximetry 11/26/21 11/26/21 11/26/21 21:00 21:03 22:00 Temperature Pulse Rate 87 80 84 Pulse Rate [ Anterior Bilateral Throughout] Pulse Rate [ From Monitor] Respiratory 21 13 Rate Respiratory Rate [Anterior Bilateral Throughout] Blood Pressure 137/53 121/54 O2 Sat by Pulse 99 97 Oximetry 11/26/21 11/26/21 11/27/21 22:16 23:00 00:00 Temperature 98.6 F Pulse Rate 79 84 75 Pulse Rate [ Anterior Bilateral Throughout] Pulse Rate [ 73 From Monitor] Respiratory 12 21 13 Rate Respiratory Rate [Anterior Bilateral Throughout] Blood Pressure 119/51 121/51 119/48 O2 Sat by Pulse 97 99 98 Oximetry 11/27/21 11/27/21 11/27/21 01:00 02:00 03:00 Temperature Pulse Rate 78 77 75 Pulse Rate [ Anterior Bilateral Throughout] Pulse Rate [ From Monitor] Respiratory 22 15 14 Rate Respiratory Rate [Anterior Bilateral Throughout] Blood Pressure 136/55 128/47 128/47 O2 Sat by Pulse 98 99 97 Oximetry 11/27/21 11/27/21 11/27/21 04:00 04:10 05:00 Temperature 97.9 F Pulse Rate 80 81 75 Pulse Rate [ Anterior Bilateral Throughout] Pulse Rate [ 74 From Monitor] Respiratory 17 12 Rate Respiratory Rate [Anterior Bilateral Throughout] Blood Pressure 128/47 128/47 O2 Sat by Pulse 99 99 98 Oximetry Constitutional: no acute distress, other (elderly obese female with normal respiratory effort at rest on MVS) Eyes: non-icteric ENT: oropharynx moist, other (ETT 24 cm EMIL) Neck: supple, no lymphadenopathy, no JVD, other (large circumference) Effort: normal Ascultation: Bilateral: clear, diminished breath sounds Percussion: Bilateral: not dull Cardiovascular: regular rate and rhythm, other (S1,S2) Gastrointestinal: normoactive bowel sounds, soft, non-tender, non-distended (protuberant) Integumentary: normal Extremities: no cyanosis, no edema, pulses normal, no ischemia or petechiae Neurologic: non-focal exam (grossly), pupils equal and round, CN II-XII normal, other Psychiatric: anxious, other CBC and BMP: 11/27/21 08:31 11/27/21 08:31 ABG, PT/INR, D-dimer: ABG ABG pH 7.405 pH Units (7.350-7.450) 11/26/21 10:28 ABG pCO2 64.5 mm Hg 11/26/21 10:28 ABG pO2 66.5 mm Hg (80.0-90.0) L 11/26/21 10:28 ABG O2 Saturation 92.9 % (95.0-99.0) L 11/26/21 10:28 PT/INR, D-dimer PT 12.9 Sec. (12.2-14.9) 11/18/21 00:19 INR 0.88 (0.87-1.13) 11/18/21 00:19 D-Dimer 464.80 ng/mlDDU (0-234) H 11/18/21 05:15 Abnormal lab findings: Abnormal Labs 11/18/21 11/18/21 11/18/21 00:01 00:19 00:19 WBC 15.6 H RBC 5.59 H Hgb 14.8 H Hct 49.8 H MCH 27 L MCHC RDW 16.9 H Lymph % (Auto) [place] % (Auto) Lymph # (Auto) [place] # (Auto) Seg Neutrophils % Lymphocytes % (Manual) 4.0 L Seg Neutrophils # Seg Neutrophils # Man 14.7 H Lymphocytes # (Manual) 0.6 L D-Dimer ABG pH ABG pO2 ABG HCO3 ABG O2 Saturation ABG Base Excess ABG Hemoglobin Oxyhemoglobin Sodium Potassium Carbon Dioxide BUN Creatinine Glucose 148 H POC Glucose 151 H Calcium Phosphorus Magnesium Lactate Dehydrogenase Triglycerides Urine WBC (Auto) Salicylates Acetaminophen 11/18/21 11/18/21 11/18/21 00:19 00:19 00:19 WBC RBC Hgb Hct MCH MCHC RDW Lymph % (Auto) [place] % (Auto) Lymph # (Auto) [place] # (Auto) Seg Neutrophils % Lymphocytes % (Manual) Seg Neutrophils # Seg Neutrophils # Man Lymphocytes # (Manual) D-Dimer ABG pH ABG pO2 ABG HCO3 ABG O2 Saturation ABG Base Excess ABG Hemoglobin Oxyhemoglobin Sodium Potassium Carbon Dioxide BUN Creatinine Glucose POC Glucose Calcium Phosphorus Magnesium 2.50 H Lactate Dehydrogenase Triglycerides Urine WBC (Auto) Salicylates < 0.3 L Acetaminophen 5.0 L 11/18/21 11/18/21 11/18/21 01:03 02:00 05:15 WBC RBC Hgb Hct MCH MCHC RDW Lymph % (Auto) [place] % (Auto) Lymph # (Auto) [place] # (Auto) Seg Neutrophils % Lymphocytes % (Manual) Seg Neutrophils # Seg Neutrophils # Man Lymphocytes # (Manual) D-Dimer 464.80 H ABG pH ABG pO2 ABG HCO3 35.8 H ABG O2 Saturation ABG Base Excess 7.8 H ABG Hemoglobin Oxyhemoglobin 91.9 L Sodium Potassium Carbon Dioxide BUN Creatinine Glucose POC Glucose Calcium Phosphorus Magnesium Lactate Dehydrogenase Triglycerides Urine WBC (Auto) 16.0 H Salicylates Acetaminophen 11/18/21 11/18/21 11/18/21 05:15 15:47 15:47 WBC 13.5 H RBC 5.60 H Hgb 14.9 H Hct 49.1 H MCH 27 L MCHC RDW 17.3 H Lymph % (Auto) 7.9 L [place] % (Auto) 10.1 H Lymph # (Auto) 1.1 L [place] # (Auto) 1.4 H Seg Neutrophils % 81.7 H Lymphocytes % (Manual) Seg Neutrophils # 11.0 H Seg Neutrophils # Man Lymphocytes # (Manual) D-Dimer ABG pH ABG pO2 ABG HCO3 ABG O2 Saturation ABG Base Excess ABG Hemoglobin Oxyhemoglobin Sodium Potassium Carbon Dioxide BUN Creatinine Glucose 138 H POC Glucose Calcium Phosphorus Magnesium Lactate Dehydrogenase 275 H Triglycerides Urine WBC (Auto) Salicylates Acetaminophen 11/18/21 11/18/21 11/19/21 18:45 23:33 04:58 WBC RBC Hgb Hct MCH MCHC RDW Lymph % (Auto) [place] % (Auto) Lymph # (Auto) [place] # (Auto) Seg Neutrophils % Lymphocytes % (Manual) Seg Neutrophils # Seg Neutrophils # Man Lymphocytes # (Manual) D-Dimer ABG pH ABG pO2 ABG HCO3 ABG O2 Saturation ABG Base Excess ABG Hemoglobin Oxyhemoglobin Sodium Potassium Carbon Dioxide BUN Creatinine Glucose 130 H POC Glucose 132 H 113 H Calcium Phosphorus Magnesium Lactate Dehydrogenase Triglycerides Urine WBC (Auto) Salicylates Acetaminophen 11/19/21 11/19/21 11/19/21 07:59 07:59 08:55 WBC 12.7 H RBC 5.29 H Hgb Hct 45.5 H MCH 26 L MCHC RDW 17.4 H Lymph % (Auto) 12.3 L [place] % (Auto) 9.6 H Lymph # (Auto) [place] # (Auto) 1.2 H Seg Neutrophils % 76.9 H Lymphocytes % (Manual) Seg Neutrophils # 9.7 H Seg Neutrophils # Man Lymphocytes # (Manual) D-Dimer ABG pH 7.518 H ABG pO2 77.6 L ABG HCO3 30.1 H ABG O2 Saturation ABG Base Excess 6.9 H ABG Hemoglobin Oxyhemoglobin Sodium Potassium 3.1 L D Carbon Dioxide BUN Creatinine Glucose 115 H POC Glucose Calcium 8.1 L Phosphorus Magnesium Lactate Dehydrogenase Triglycerides Urine WBC (Auto) Salicylates Acetaminophen 11/19/21 11/19/2111/20/21 11:33 16:22 04:20 WBC 13.9 H RBC 5.44 H Hgb Hct 49.3 H MCH 26 L MCHC 29 L RDW 18.3 H Lymph % (Auto) [place] % (Auto) Lymph # (Auto) [place] # (Auto) Seg Neutrophils % Lymphocytes % (Manual) Seg Neutrophils # Seg Neutrophils # Man Lymphocytes # (Manual) D-Dimer ABG pH ABG pO2 ABG HCO3 ABG O2 Saturation ABG Base Excess ABG Hemoglobin Oxyhemoglobin Sodium Potassium Carbon Dioxide BUN Creatinine Glucose POC Glucose 119 H 112 H Calcium Phosphorus Magnesium Lactate Dehydrogenase Triglycerides Urine WBC (Auto) Salicylates Acetaminophen 11/20/21 11/20/21 11/20/21 04:20 11:07 12:02 WBC RBC Hgb Hct MCH MCHC RDW Lymph % (Auto) [place] % (Auto) Lymph # (Auto) [place] # (Auto) Seg Neutrophils % Lymphocytes % (Manual) Seg Neutrophils # Seg Neutrophils # Man Lymphocytes # (Manual) D-Dimer ABG pH 7.251 L ABG pO2 66.3 L ABG HCO3 30.2 H ABG O2 Saturation 91.8 L ABG Base Excess ABG Hemoglobin Oxyhemoglobin 89.4 L Sodium 147 H Potassium Carbon Dioxide BUN 25 H Creatinine Glucose POC Glucose 118 H Calcium Phosphorus 6.40 H Magnesium Lactate Dehydrogenase Triglycerides Urine WBC (Auto) Salicylates Acetaminophen 11/20/21 11/21/21 11/21/21 17:31 00:07 04:44 WBC 14.0 H RBC 5.08 H Hgb Hct 44.7 H MCH 26 L MCHC 29 L RDW 17.8 H Lymph % (Auto) [place] % (Auto) Lymph # (Auto) [place] # (Auto) Seg Neutrophils % Lymphocytes % (Manual) Seg Neutrophils # Seg Neutrophils # Man Lymphocytes # (Manual) D-Dimer ABG pH ABG pO2 ABG HCO3 ABG O2 Saturation ABG Base Excess ABG Hemoglobin Oxyhemoglobin Sodium Potassium Carbon Dioxide BUN Creatinine Glucose POC Glucose 139 H 147 H Calcium Phosphorus Magnesium Lactate Dehydrogenase Triglycerides Urine WBC (Auto) Salicylates Acetaminophen 11/21/21 11/21/21 11/21/21 04:44 06:06 11:45 WBC RBC Hgb Hct MCH MCHC RDW Lymph % (Auto) [place] % (Auto) Lymph # (Auto) [place] # (Auto) Seg Neutrophils % Lymphocytes % (Manual) Seg Neutrophils # Seg Neutrophils # Man Lymphocytes # (Manual) D-Dimer ABG pH ABG pO2 ABG HCO3 ABG O2 Saturation ABG Base Excess ABG Hemoglobin Oxyhemoglobin Sodium Potassium Carbon Dioxide BUN 20 H Creatinine Glucose 157 H POC Glucose 158 H 119 H Calcium Phosphorus Magnesium Lactate Dehydrogenase Triglycerides Urine WBC (Auto) Salicylates Acetaminophen 11/21/21 11/21/21 11/22/21 11:50 16:54 00:03 WBC RBC Hgb Hct MCH MCHC RDW Lymph % (Auto) [place] % (Auto) Lymph # (Auto) [place] # (Auto) Seg Neutrophils % Lymphocytes % (Manual) Seg Neutrophils # Seg Neutrophils # Man Lymphocytes # (Manual) D-Dimer ABG pH ABG pO2 61.8 L ABG HCO3 35.2 H ABG O2 Saturation 92.8 L ABG Base Excess 8.1 H ABG Hemoglobin Oxyhemoglobin 90.6 L Sodium Potassium Carbon Dioxide BUN Creatinine Glucose POC Glucose 149 H 133 H Calcium Phosphorus Magnesium Lactate Dehydrogenase Triglycerides Urine WBC (Auto) Salicylates Acetaminophen 11/22/21 11/22/21 11/22/21 04:39 04:39 04:39 WBC 14.1 H RBC Hgb Hct 43.4 H MCH 26 L MCHC RDW 17.9 H Lymph % (Auto) [place] % (Auto) Lymph # (Auto) [place] # (Auto) Seg Neutrophils % Lymphocytes % (Manual) Seg Neutrophils # Seg Neutrophils # Man Lymphocytes # (Manual) D-Dimer ABG pH ABG pO2 ABG HCO3 ABG O2 Saturation ABG Base Excess ABG Hemoglobin Oxyhemoglobin Sodium Potassium Carbon Dioxide 33 H BUN Creatinine Glucose 152 H POC Glucose Calcium Phosphorus Magnesium Lactate Dehydrogenase Triglycerides 185 H Urine WBC (Auto) Salicylates Acetaminophen 11/22/21 11/22/21 11/22/21 05:02 10:56 11:31 WBC RBC Hgb Hct MCH MCHC RDW Lymph % (Auto) [place] % (Auto) Lymph # (Auto) [place] # (Auto) Seg Neutrophils % Lymphocytes % (Manual) Seg Neutrophils # Seg Neutrophils # Man Lymphocytes # (Manual) D-Dimer ABG pH ABG pO2 55.3 L ABG HCO3 39.4 H ABG O2 Saturation 89.5 L ABG Base Excess 11.7 H ABG Hemoglobin Oxyhemoglobin 87.2 L Sodium Potassium Carbon Dioxide BUN Creatinine Glucose POC Glucose 158 H 116 H Calcium Phosphorus Magnesium Lactate Dehydrogenase Triglycerides Urine WBC (Auto) Salicylates Acetaminophen 11/22/21 11/22/21 11/23/21 17:29 23:22 04:49 WBC 13.6 H RBC 5.18 H Hgb Hct 45.6 H MCH 25 L MCHC 29 L RDW 17.5 H Lymph % (Auto) [place] % (Auto) Lymph # (Auto) [place] # (Auto) Seg Neutrophils % Lymphocytes % (Manual) Seg Neutrophils # Seg Neutrophils # Man Lymphocytes # (Manual) D-Dimer ABG pH ABG pO2 ABG HCO3 ABG O2 Saturation ABG Base Excess ABG Hemoglobin Oxyhemoglobin Sodium Potassium Carbon Dioxide BUN Creatinine Glucose POC Glucose 129 H 171 H Calcium Phosphorus Magnesium Lactate Dehydrogenase Triglycerides Urine WBC (Auto) Salicylates Acetaminophen 11/23/21 11/23/21 11/23/21 04:49 11:53 16:22 WBC RBC Hgb Hct MCH MCHC RDW Lymph % (Auto) [place] % (Auto) Lymph # (Auto) [place] # (Auto) Seg Neutrophils % Lymphocytes % (Manual) Seg Neutrophils # Seg Neutrophils # Man Lymphocytes # (Manual) D-Dimer ABG pH ABG pO2 61.8 L ABG HCO3 40.9 H ABG O2 Saturation 93.4 L ABG Base Excess 14.6 H ABG Hemoglobin 6.9 L Oxyhemoglobin 90.2 L Sodium 146 H Potassium Carbon Dioxide 36 H BUN 21 H Creatinine Glucose 155 H POC Glucose 166 H Calcium Phosphorus Magnesium Lactate Dehydrogenase Triglycerides Urine WBC (Auto) Salicylates Acetaminophen 11/23/21 11/23/21 11/24/21 17:11 23:07 05:03 WBC RBC Hgb Hct MCH MCHC RDW Lymph % (Auto) [place] % (Auto) Lymph # (Auto) [place] # (Auto) Seg Neutrophils % Lymphocytes % (Manual) Seg Neutrophils # Seg Neutrophils # Man Lymphocytes # (Manual) D-Dimer ABG pH ABG pO2 ABG HCO3 ABG O2 Saturation ABG Base Excess ABG Hemoglobin Oxyhemoglobin Sodium Potassium Carbon Dioxide BUN Creatinine Glucose POC Glucose 142 H 197 H 183 H Calcium Phosphorus Magnesium Lactate Dehydrogenase Triglycerides Urine WBC (Auto) Salicylates Acetaminophen 11/24/21 11/24/21 11/24/21 08:33 08:33 09:00 WBC RBC Hgb Hct 43.6 H MCH 26 L MCHC RDW 18.0 H Lymph % (Auto) [place] % (Auto) Lymph # (Auto) [place] # (Auto) Seg Neutrophils % Lymphocytes % (Manual) Seg Neutrophils # Seg Neutrophils # Man Lymphocytes # (Manual) D-Dimer ABG pH ABG pO2 69.1 L ABG HCO3 40.1 H ABG O2 Saturation 93.2 L ABG Base Excess 11.9 H ABG Hemoglobin Oxyhemoglobin 90.3 L Sodium Potassium 5.3 H D Carbon Dioxide 36 H BUN 25 H Creatinine 0.5 L Glucose 185 H POC Glucose Calcium Phosphorus Magnesium Lactate Dehydrogenase Triglycerides Urine WBC (Auto) Salicylates Acetaminophen 11/24/21 11/24/21 11/25/21 12:00 18:08 00:50 WBC RBC Hgb Hct MCH MCHC RDW Lymph % (Auto) [place] % (Auto) Lymph # (Auto) [place] # (Auto) Seg Neutrophils % Lymphocytes % (Manual) Seg Neutrophils # Seg Neutrophils # Man Lymphocytes # (Manual) D-Dimer ABG pH ABG pO2 67.3 L ABG HCO3 41.6 H 42.7 H ABG O2 Saturation 94.5 L ABG Base Excess 12.3 H 14.7 H ABG Hemoglobin Oxyhemoglobin 93.1 L 91.6 L Sodium Potassium Carbon Dioxide BUN Creatinine Glucose POC Glucose 168 H Calcium Phosphorus Magnesium Lactate Dehydrogenase Triglycerides Urine WBC (Auto) Salicylates Acetaminophen 11/25/21 11/25/21 11/25/21 04:57 04:57 14:18 WBC RBC 5.13 H Hgb Hct 45.1 H MCH 26 L MCHC RDW 17.7 H Lymph % (Auto) [place] % (Auto) Lymph # (Auto) [place] # (Auto) Seg Neutrophils % Lymphocytes % (Manual) Seg Neutrophils # Seg Neutrophils # Man Lymphocytes # (Manual) D-Dimer ABG pH ABG pO2 65.1 L ABG HCO3 41.7 H ABG O2 Saturation 94.2 L ABG Base Excess 13.4 H ABG Hemoglobin Oxyhemoglobin 91.3 L Sodium 146 H Potassium Carbon Dioxide 38 H BUN 26 H Creatinine 0.5 L Glucose 210 H POC Glucose Calcium Phosphorus Magnesium Lactate Dehydrogenase Triglycerides Urine WBC (Auto) Salicylates Acetaminophen 11/25/21 11/26/21 11/26/21 19:22 04:28 04:28 WBC RBC 5.05 H Hgb Hct 44.0 H MCH 26 L MCHC RDW 17.6 H Lymph % (Auto) [place] % (Auto) Lymph # (Auto) [place] # (Auto) Seg Neutrophils % Lymphocytes % (Manual) Seg Neutrophils # Seg Neutrophils # Man Lymphocytes # (Manual) D-Dimer ABG pH ABG pO2 ABG HCO3 ABG O2 Saturation ABG Base Excess ABG Hemoglobin Oxyhemoglobin Sodium 146 H Potassium Carbon Dioxide 38 H BUN 30 H Creatinine Glucose 124 H POC Glucose 151 H Calcium 10.5 H Phosphorus Magnesium Lactate Dehydrogenase Triglycerides Urine WBC (Auto) Salicylates Acetaminophen 11/26/21 11/26/21 05:50 10:28 WBC RBC Hgb Hct MCH MCHC RDW Lymph % (Auto) [place] % (Auto) Lymph # (Auto) [place] # (Auto) Seg Neutrophils % Lymphocytes % (Manual) Seg Neutrophils # Seg Neutrophils # Man Lymphocytes # (Manual) D-Dimer ABG pH ABG pO2 66.5 L ABG HCO3 39.6 H ABG O2 Saturation 92.9 L ABG Base Excess 11.4 H ABG Hemoglobin 16.8 H Oxyhemoglobin 90.3 L Sodium Potassium Carbon Dioxide BUN Creatinine Glucose POC Glucose 121 H Calcium Phosphorus Magnesium Lactate Dehydrogenase Triglycerides Urine WBC (Auto) Salicylates Acetaminophen Chest x-ray: image reviewed (Bilateral alveolar infiltrates) Allied health notes reviewed: RT
[2021-11-27] MEDS ORDERED: FUROSEMIDE 40 MG/4 ML INJ IV ONE (06:15)
[2021-11-27] MEDS: hydrALAZINE 20 MG/1 ML INJ IV PRN (07:34)
[2021-11-27] MEDS ORDERED: LORazepam 2 MG/ML VIAL IV ONE ×2 (08:21→09:32)
[2021-11-27 08:47] LABS: Mean Corpuscular HGB Conc 30 % (30-34); Mean Corpuscular Volume 87 fl (79-97); Platelet Count 469 K/mm3 (140-440); Red Blood Count 5.62 M/mm3 (3.65-5.03); Red Cell Distribution Width 17.9 % (13.2-15.2)
[2021-11-27 08:52] LABS: Hematocrit 48.7 % (30.3-42.9); Hemoglobin 14.6 gm/dl (10.1-14.3)
[2021-11-27] MEDS: BUDESONIDE 0.5 MG/2 ML NEBU IH SCH ×2 (09:07→21:04)
[2021-11-27] MEDS: ARFORMOTEROL 15 MCG/2 ML NEBU IH SCH ×2 (09:07→21:04)
[2021-11-27 09:09] LABS: Blood Urea Nitrogen 31 mg/dL (7-17); Hemolysis Index 17
[2021-11-27 09:22] LABS: BUN/Creatinine Ratio 52
[2021-11-27] MEDS ORDERED: oxyCODONE 5 MG TAB PO PRN (09:50)
[2021-11-27] MEDS ORDERED: amLODIPine 5 MG TAB PO SCH (10:00)
--- NOTE | 2021-11-27 10:21 | XRay Report ---
XR abdomen 1V ap INDICATION: s/p dht placement. COMPARISON: None available. FINDINGS: The tip of the feeding tube projects over the distal stomach. Signer Name: Yasmany Contreras MD Signed: 11/27/2021 10:16 AM Workstation Name: [id number]
[2021-11-27] MEDS: amLODIPine 10 MG TAB PO SCH (11:22)
[2021-11-27] MEDS: ASPIRIN EC 81 MG TAB PO SCH (11:22)
[2021-11-27] MEDS: FAMOTIDINE 20 MG TAB FEEDTUBE SCH ×2 (11:22→21:25)
[2021-11-27] MEDS: carvediloL 12.5 MG TAB FEEDTUBE SCH ×2 (11:23→21:25)
[2021-11-27] MEDS ORDERED: EPINEPHrine RACEMIC 2.25% 0.5ML NEBU IH ONE (11:29)
[2021-11-27] MEDS ORDERED: fentaNYL 100 MCG/2 ML INJ IV ONE (11:41)
[2021-11-27] MEDS: SENNOSIDES/DOCUSATE SODIUM 8.6/50 MG TAB FEEDTUBE SCH (11:42)
[2021-11-27] MEDS ORDERED: ETOMIDATE 20 MG/10 ML INJ IV ONE (11:43)
[2021-11-27] MEDS ORDERED: fentaNYL 100 MCG/2 ML INJ IV PRN (11:45)
[2021-11-27] MEDS: FREE WATER PO SCH ×3 (12:00→21:26)
[2021-11-27] MEDS ORDERED: MIDAZOLAM 5 MG/5 ML INJ MDV IV NR (12:00)
[2021-11-27] MEDS: fentaNYL DRIP Premix 2,000 MCG/100 ML BAG IV SCH ×2 (12:05→18:25)
--- NOTE | 2021-11-27 12:17 | Progress Note ---
<DILLONFILI KrystalRoxi - Last Filed: 11/27/21 18:11> Assessment and Plan Assessment and plan: This is a 81-year-old AA female with CAD, CHF, pulmonary hypertension, COPD, and tobacco abuse admitted for acute hypoxemic respiratory failure 2/2 of bilateral pneumonia vs COPD exacerbation/pulmonary edema requiring intubation and ventilatory support. Neuro: Agitation, acute toxic metabolic encephalopathy -Sedated with propofol and fentanyl -prn haldol -hold fentanyl gt per [facility] -Goal RASS -2 -Seroquel twice daily -SAT/SBT when appropriate -Maintain sleep-wake cycle -Avoid benzodiazepine -Reduce risk of delirium Cardio: Acute CHF, hypertensive emergency, h/o CAD, FL, hyperlipidemia -Presented with systolic blood pressure in the 240s in the ED -S/p Cardene drip -11/22 echocardiogram with mild concentric left trickle hypertrophy, LVEF 60 to 65%, left pleural effusion -Admit BMP 867 -S/p Lasix -Coreg restarted -Blood pressure monitor per protocol -As needed hydralazine for SBP greater than 160 Pulmonary: Acute hypoxic respiratory failure, acute exacerbation of COPD, h/o COPD -[facility] consulted, appreciate recommendation -Intubated in the ED on 11/18 with 8.0 ETT at 22 at the lips and extubated on 11/27/2021 -Developed stridor, given racemic epi -Attempted BiPAP but eventually reintubated by RT -AC Rate 14, TV 450, Peep 6, FiO2 100% -See RT notes for titration -A.m. ABG and CXR noted -VAP bundle -Pulmicort and Brovana -Continue SPO2 monitoring GI: MO, h/o GERD -Nutrition consult for tube feeding -PPI -BR: Senokot -24 hour -605 mL : Urinary retention, metabolic alkalosis, hypernatremia -Briggs reinserted on 11/20 due to retention and removed 11/26 -replaced 11/27/2021 -FWF 200 ml q4 -fluid deficit 4L -Strict intake and output -Trend BMP -Intervene as needed Endo: NAD -Avoid hypoglycemia -Accu-Cheks every 6 hours -SSI ID: Bilateral pneumonia, UTI -Evidenced on CXR and UA -COVID-19 PCR negative -Follow culture data -Blood culture, urine culture, tracheal aspirate with no growth to date -Follow WBC and fever curve -s/p azithromycin and Rocephin Heme: Thrombocytosis -Monitor CBC -Transfuse to hemoglobin less than 7 -SCD to bilateral lower extremities while in bed -Lovenox subcu The high probability of a clinically significant, sudden or life threatening deterioration of the [Neuro, Resp, CV] system(s) required my full and direct attention, intervention and personal management. The aggregate critical care time was [60] minutes. This time is in addition to time spent performing report ed procedures but includes the following: [x] Data Review and interpretation [x] Patient assessment and monitoring of vital signs [x] Documentation [x] Medication orders and management Disposition Plan: icu Total Time Spent with Patient (Minutes): 60 History Interval history: This is a 81-year-old female with CAD s/p FL, GERD, chronic back pain, HLD, neuropathy, emphysema, CHF, pulmonary HTN, COPD who presents to the emergency department on 11/18 via EMS for altered mental status. According to EMS patient was having difficulty breathing and minimally responsive but in respiratory distress initially. Respiratory status was said to have worsened in route to the hospital and the patient had been given Solu-Medrol magnesium IV however he developed pinpoint pupils and was given Narcan with improvement. Work-up in the emergency department revealed leukocytosis, elevated D-dimer, 8 UTI on UA, CXR showed bilateral pulmonary opacities possibly reflecting edema or atelectasis or pneumonia, CT chest showed evidence of pulmonary hypertension with dense consolidation along the left lower lobe concerning for pneumonia and mild interstitial pulmonary edema. Patient was admitted to the hospital service with acute hypoxic respiratory failure, acute COPD exacerbation and UTI to the ICU with consults to [facility]. Hospital Course to Date: 11/18: Patient was seen and examined in the ED. Patient is intubated and sedated on propofol and versed gtt, RASS -3 to -4. Patient is in hypertensive emergency this am, SBP in the 240s, cardene gtt was initiated, maintain SBP less than 160. Leukocytosis noted, UA significant for UTI. Lactic, procal, and CRP are normal. Patient remains afebrile, continue empiric IV abx for now. Tracheal aspirate ordered, blood culture is pending. Continue to f/u on culture data. 11/19: Patient remains intubated and sedated. Patient did not tolerate sedation vacation this am, became tachycardic, hypertensive, with elevated RR and SPO2 in the low 80s. Sedation back on, continue to wean sedation as tolerated for RASS goal of 0 to -2. Pateimt is off cardene gtt, PRN hydralazine for SPO2 above 160. Low K repleted, repeat labs in the am. 11/20: Remains on the vent and sedated, RASS -3. Plan to wean down on sedation, might need to add Seroquel if patient is not tolerating sedation. Hypernatremia and increased BUN/Cr. this am, patient is on lasix BID. Will discuss with CCM to possibly hold or decreased IV lasix for now, FWF added for high Na. Urinary retention post briggs removal, bladder scan and straight cath per protocol. 11/21: Patient remains on the vent, unable to wean sedation at this time, Seroquel added. Titrate sedation as tolerated for RASS of 0 to -2. Briggs was reinserted overnight for urinary retention, kidney function is stable. 11/22: CCM reduced FiO2. We will start weaning tomorrow. No acute events reported overnight. 11/23: Patient spiked a fever overnight and was cultured this morning. Attempted CPAP trial again today. An ABG obtained post trial which has been given to CCM. Slight hypernatremia noted. 11/24: I updated patient's son today, Kwame Salamanca at [phone]. Lasix stopped today. Patient placed on CPAP trial. She lasted on CPAP all day yesterday and was rested overnight on assist control. Given Kayexalate today due to hyperkalemia. 11/25: Patient was on SBT today and was not arousable for a while and a CT head was obtained which showed no acute intracranial abnormality. Patient later became severely agitated and was switched back to assist control and placed back on sedation. Family updated today. Restarted home Coreg due to hypotension. 11/26: SBT today, Haldol as needed. Briggs was removed yesterday bladder scan x2 with urine output. Slight hypernatremia persists. Blood pressure better controlled. 11/27/2021: Patient was extubated by [facility] this morning. Patient was severely agitated and given 2 mg Ativan, SBP 200s and given labatalol x1 10mg, [place] tube placed and given PO BP medications. She had stridor and was given racemic epi. We wanted to place BiPAP but after consulation with Dr. Gallegos it was decided to intubate the patient. She was intubated by Deidra, RT and given etomidate, versed and fentanyl. CXR in process. On fentanyl and precedex gtt. Hospitalist Physical - Physical exam Narrative exam: - EENT Eyes: Present: PERRL, EOM intact ENT: hearing intact, clear oral mucosa, dentition normal - Neck Neck: Present: normal ROM - Respiratory Respiratory effort: normal Respiratory: bilateral: diminished - Cardiovascular Rhythm: regular Heart Sounds: Present: S1 & S2. Absent: systolic murmur - Extremities Extremities: no ischemia, pulses intact, pulses symmetrical, No edema, normal temperature, normal color Peripheral Pulses: within normal limits - Abdominal General gastrointestinal: soft, non-tender, non-distended, normal bowel sounds - Integumentary Integumentary: Present: warm, dry - Psychiatric Psychiatric: cooperative - Neurologic Neurologic: CNII-XII intact, moves all extremities - Allied Health Allied health notes reviewed: nursing, RT, social work - Constitutional Vitals: Temp Pulse Resp BP Pulse Ox 98.7 F 121 H 32 H 203/98 96 11/27/21 08:00 11/27/21 11:42 11/27/21 11:42 11/27/21 11:42 11/27/21 11:42 General appearance: Present: no acute distress, other (Intubated and Sedated) HEART Score - HEART Score Troponin: Troponin T < 0.010 ng/mL (0.00-0.029) 11/18/21 03:25 Results - Labs CBC & Chem 7: 11/27/21 08:31 11/27/21 08:31 Labs: Laboratory Last Values WBC 12.4 K/mm3 (4.5-11.0) H 11/27/21 08:31 RBC 5.62 M/mm3 (3.65-5.03) H 11/27/21 08:31 Hgb 14.6 gm/dl (10.1-14.3) H 11/27/21 08:31 Hct 48.7 % (30.3-42.9) H 11/27/21 08:31 MCV 87 fl (79-97) 11/27/21 08:31 MCH 26 pg (28-32) L 11/27/21 08:31 MCHC 30 % (30-34) 11/27/21 08:31 RDW 17.9 % (13.2-15.2) H 11/27/21 08:31 Plt Count 469 K/mm3 (140-440) H 11/27/21 08:31 Lymph % (Auto) 12.3 % (13.4-35.0) L 11/19/21 07:59 [place] % (Auto) 9.6 % (0.0-7.3) H 11/19/21 07:59 Eos % (Auto) 0.7 % (0.0-4.3) 11/19/21 07:59 Baso % (Auto) 0.5 % (0.0-1.8) 11/19/21 07:59 Lymph # (Auto) 1.6 K/mm3 (1.2-5.4) 11/19/21 07:59 [place] # (Auto) 1.2 K/mm3 (0.0-0.8) H 11/19/21 07:59 Eos # (Auto) 0.1 K/mm3 (0.0-0.4) 11/19/21 07:59 Baso # (Auto) 0.1 K/mm3 (0.0-0.1) 11/19/21 07:59 Add Manual Diff Complete 11/18/21 00:19 Total Counted 100 11/18/21 00:19 Seg Neutrophils % 76.9 % (40.0-70.0) H 11/19/21 07:59 Lymphocytes % (Manual) 4.0 % (13.4-35.0) L 11/18/21 00:19 Monocytes % (Manual) 2.0 % (0.0-7.3) 11/18/21 00:19 Nucleated RBC % Not Reportable 11/18/21 00:19 Seg Neutrophils # 9.7 K/mm3 (1.8-7.7) H 11/19/21 07:59 Seg Neutrophils # Man 14.7 K/mm3 (1.8-7.7) H 11/18/21 00:19 Band Neutrophils # 0.0 K/mm3 11/18/21 00:19 Lymphocytes # (Manual) 0.6 K/mm3 (1.2-5.4) L 11/18/21 00:19 Abs React Lymphs (Man) 0.0 K/mm3 11/18/21 00:19 Monocytes # (Manual) 0.3 K/mm3 (0.0-0.8) 11/18/21 00:19 Eosinophils # (Manual) 0.0 K/mm3 (0.0-0.4) 11/18/21 00:19 Basophils # (Manual) 0.0 K/mm3 (0.0-0.1) 11/18/21 00:19 Metamyelocytes # 0.0 K/mm3 11/18/21 00:19 Myelocytes # 0.0 K/mm3 11/18/21 00:19 Promyelocytes # 0.0 K/mm3 11/18/21 00:19 Blast Cells # 0.0 K/mm3 11/18/21 00:19 WBC Morphology Not Reportable 11/18/21 00:19 Hypersegmented Neuts Not Reportable 11/18/21 00:19 Hyposegmented Neuts Not Reportable 11/18/21 00:19 Hypogranular Neuts Not Reportable 11/18/21 00:19 Smudge Cells Not Reportable 11/18/21 00:19 Toxic Granulation Not Reportable 11/18/21 00:19 Toxic Vacuolation Not Reportable 11/18/21 00:19 Dohle Bodies Not Reportable 11/18/21 00:19 Pelger-Huet Anomaly Not Reportable 11/18/21 00:19 Luis Rods Not Reportable 11/18/21 00:19 Platelet Estimate Consistent w auto 11/18/21 00:19 Clumped Platelets Not Reportable 11/18/21 00:19 Plt Clumps, EDTA Not Reportable 11/18/21 00:19 Large Platelets Not Reportable 11/18/21 00:19 Giant Platelets Not Reportable 11/18/21 00:19 Platelet Satelliting Not Reportable 11/18/21 00:19 Plt Morphology Comment Not Reportable 11/18/21 00:19 RBC Morphology Not Reportable 11/18/21 00:19 Dimorphic RBCs Not Reportable 11/18/21 00:19 Polychromasia Not Reportable 11/18/21 00:19 Hypochromasia Not Reportable 11/18/21 00:19 Poikilocytosis Not Reportable 11/18/21 00:19 Anisocytosis 1+ 11/18/21 00:19 Microcytosis Not Reportable 11/18/21 00:19 Macrocytosis Few 11/18/21 00:19 Spherocytes Not Reportable 11/18/21 00:19 Pappenheimer Bodies Not Reportable 11/18/21 00:19 Sickle Cells Not Reportable 11/18/21 00:19 Target Cells Not Reportable 11/18/21 00:19 Tear Drop Cells Not Reportable 11/18/21 00:19 Ovalocytes Not Reportable 11/18/21 00:19 Helmet Cells Not Reportable 11/18/21 00:19 [place] Bodies Not Reportable 11/18/21 00:19 [place] Rings Not Reportable 11/18/21 00:19 Yumi Cells Not Reportable 11/18/21 00:19 Bite Cells Not Reportable 11/18/21 00:19 Crenated Cell Not Reportable 11/18/21 00:19 Elliptocytes Not Reportable 11/18/21 00:19 Acanthocytes (Spur) Not Reportable 11/18/21 00:19 Rouleaux Not Reportable 11/18/21 00:19 Hemoglobin C Crystals Not Reportable 11/18/21 00:19 Schistocytes Not Reportable 11/18/21 00:19 Malaria parasites Not Reportable 11/18/21 00:19 Shahriar Bodies Not Reportable 11/18/21 00:19 Hem Pathologist Commnt No 11/18/21 00:19 PT 12.9 Sec. (12.2-14.9) 11/18/21 00:19 INR 0.88 (0.87-1.13) 11/18/21 00:19 APTT 29.2 Sec. (24.2-36.6) 11/18/21 00:19 D-Dimer 464.80 ng/mlDDU (0-234) H 11/18/21 05:15 ABG pH 7.405 pH Units (7.350-7.450) 11/26/21 10:28 ABG pCO2 64.5 mm Hg 11/26/21 10:28 ABG pO2 66.5 mm Hg (80.0-90.0) L 11/26/21 10:28 ABG HCO3 39.6 mmol/L (20.0-26.0) H 11/26/21 10:28 ABG O2 Saturation 92.9 % (95.0-99.0) L 11/26/21 10:28 ABG O2 Content 21.3 (0.0-44) 11/26/21 10:28 ABG Base Excess 11.4 mmol/L (-2.0-3.0) H 11/26/21 10:28 ABG Hemoglobin 16.8 gm/dl (12.0-16.0) H 11/26/21 10:28 ABG Carboxyhemoglobin 2.3 % (0.0-5.0) 11/26/21 10:28 ABG Methemoglobin 0.6 % (0.0-1.5) 11/26/21 10:28 Oxyhemoglobin 90.3 % (95.0-99.0) L 11/26/21 10:28 FiO2 40 % 11/26/21 10:28 Sodium 150 mmol/L (137-145) H 11/27/21 08:31 Potassium 3.7 mmol/L (3.6-5.0) 11/27/21 08:31 Chloride 100.4 mmol/L (98-107) 11/27/21 08:31 Carbon Dioxide 33 mmol/L (22-30) H 11/27/21 08:31 Anion Gap 20 mmol/L 11/27/21 08:31 BUN 31 mg/dL (7-17) H 11/27/21 08:31 Creatinine 0.6 mg/dL (0.6-1.2) 11/27/21 08:31 Estimated GFR > 60 ml/min 11/27/21 08:31 BUN/Creatinine Ratio 52 % 11/27/21 08:31 Glucose 135 mg/dL (65-100) H 11/27/21 08:31 POC Glucose 153 mg/dL (70-105) H 11/27/21 11:49 Hemoglobin A1c 5.9 % (4-6) 11/19/21 07:59 Lactic Acid 1.40 mmol/L (0.7-2.0) 11/18/21 00:19 Calcium 11.0 mg/dL (8.4-10.2) H 11/27/21 08:31 Phosphorus 4.20 mg/dL (2.5-4.5) 11/23/21 04:49 Magnesium 1.90 mg/dL (1.7-2.3) 11/23/21 04:49 Total Bilirubin 0.40 mg/dL (0.1-1.2) 11/18/21 00:19 Direct Bilirubin < 0.2 mg/dL (0-0.2) 11/18/21 00:19 Indirect Bilirubin 0.2 mg/dL 11/18/21 00:19 AST 22 units/L (5-40) 11/18/21 00:19 ALT 25 units/L (7-56) 11/18/21 00:19 Alkaline Phosphatase 99 units/L (35-129) 11/18/21 00:19 Ammonia 54.0 umol/L (25-60) 11/18/21 00:19 Lactate Dehydrogenase 275 units/L (91-180) H 11/18/21 05:15 Troponin T < 0.010 ng/mL (0.00-0.029) 11/18/21 03:25 C-Reactive Protein 0.70 mg/dL (0.00-1.30) 11/18/21 15:47 NT-Pro-B Natriuret Pep 867.7 pg/mL (0-900) 11/18/21 00:19 Total Protein 7.4 g/dL (6.3-8.2) 11/18/21 00:19 Albumin 4.0 g/dL (3.9-5) 11/18/21 00:19 Albumin/Globulin Ratio 1.2 % 11/18/21 00:19 Triglycerides 185 mg/dL (2-149) H 11/22/21 04:39 Lipase 13 units/L (13-60) 11/18/21 00:19 Procalcitonin 0.12 ng/mL (<0.15) 11/18/21 05:15 Urine Color Yellow (Yellow) 11/23/21 12:24 Urine Turbidity Clear (Clear) 11/23/21 12:24 Urine pH 7.0 (5.0-7.0) 11/23/21 12:24 Ur Specific [place] 1.018 (1.003-1.030) 11/23/21 12:24 Urine Protein <15 mg/dl mg/dL (Negative) 11/23/21 12:24 Urine Glucose (UA) Neg mg/dL (Negative) 11/23/21 12:24 Urine Ketones Neg mg/dL (Negative) 11/23/21 12:24 Urine Blood Neg (Negative) 11/23/21 12:24 Urine Nitrite Neg (Negative) 11/23/21 12:24 Urine Bilirubin Neg (Negative) 11/23/21 12:24 Urine Urobilinogen 4.0 mg/dL (<2.0) 11/23/21 12:24 Ur Leukocyte Esterase Neg (Negative) 11/23/21 12:24 Urine WBC (Auto) 1.0 /HPF (0.0-6.0) 11/23/21 12:24 Urine RBC (Auto) 1.0 /HPF (0.0-6.0) 11/23/21 12:24 U Epithel Cells (Auto) 1.0 /HPF (0-13.0) 11/18/21 01:03 Hyaline Casts 3 /LPF 11/18/21 01:03 Urine Mucus Few /HPF 11/18/21 01:03 Salicylates < 0.3 mg/dL (2.8-20.0) L 11/18/21 00:19 Urine Opiates Screen Negative 11/18/21 01:03 Urine Methadone Screen Negative 11/18/21 01:03 Acetaminophen 5.0 ug/mL (10.0-30.0) L 11/18/21 00:19 Ur Barbiturates Screen Negative 11/18/21 01:03 Ur Phencyclidine Scrn Negative 11/18/21 01:03 Ur Amphetamines Screen Negative 11/18/21 01:03 U Benzodiazepines Scrn Negative 11/18/21 01:03 Urine Cocaine Screen Negative 11/18/21 01:03 U Marijuana (THC) Screen Negative 11/18/21 01:03 Drugs of Abuse Note Disclamer 11/18/21 01:03 Plasma/Serum Alcohol < 0.01 % (0-0.07) 11/18/21 00:19 Coronavirus (PCR) Negative (Negative) 11/18/21 Unknown Microbiology: Microbiology 11/23/21 12:27 Peripheral/Venous Blood Culture - Preliminary NO GROWTH AFTER 72 HOURS 11/23/21 12:27 Peripheral/Venous Blood Culture - Preliminary NO GROWTH AFTER 72 HOURS Briggs/IV: Voiding Method External Female Catheter Active Medications - Current Medications Current Medications: Generic Name Dose Route Start Last Admin Trade Name Freq PRN Reason Stop Dose Admin Acetaminophen 650 mg 11/18/21 03:10 11/22/21 19:49 Acetaminophen 650 Mg Rect Supp [place] 650 mg Q6H PRN Administration Pain MILD(1-3)/Fever >100.5/MONTIEL Acetaminophen 650 mg 11/23/21 00:56 11/24/21 12:32 Acetaminophen 325 Mg/10.15 Ml Oral Liqd Unit Dose FEEDTUBE 650 mg Q6H PRN Administration Non Cardiac Pain or Temp>100.5 Amlodipine Besylate 10 mg 11/27/21 10:00 11/27/21 11:22 Amlodipine 10 Mg Tab PO 10 mg DAILY PAULINA Administration Lipase/Protease/Amylase 1 each 11/18/21 16:10 Lipase 10,500/Protease 25,000/Amylase 43,750 (Units) Dr Cross FEEDTUBE PRN PRN For Clogged Feeding Tube Arformoterol Tartrate 15 mcg 11/18/21 20:00 11/27/21 09:07 Arformoterol 15 Mcg/2 Ml Nebu IH 15 mcg Q12HRT PAULINA Administration Aspirin 81 mg 11/27/21 10:00 11/27/21 11:22 Aspirin Ec 81 Mg Tab PO 81 mg QDAY PAULINA Administration Budesonide 0.5 mg 11/18/21 20:00 11/27/21 09:07 Budesonide 0.5 Mg/2 Ml Nebu IH 0.5 mg Q12HRT PAULINA Administration Carvedilol 12.5 mg 11/25/21 13:00 11/27/21 11:23 Carvedilol 12.5 Mg Tab FEEDTUBE 12.5 mg BID PAULINA Administration Dextrose 50 ml 11/18/21 10:40 Dextrose 50% In Water (25gm) 50 Ml Syringe IV Q30MIN PRN Hypoglycemia Protocol Enoxaparin Sodium 40 mg 11/19/21 22:00 11/26/21 21:03 Enoxaparin 40 Mg/0.4 Ml Inj SUB-Q 40 mg QDAY@2200 PAULINA Administration Protocol Famotidine 20 mg 11/20/21 10:00 11/27/21 11:22 Famotidine 20 Mg Tab FEEDTUBE 20 mg BID PAULINA Administration Fentanyl 50 mcg 11/27/21 11:45 Fentanyl 100 Mcg/2 Ml Inj IV Q10MIN PRN ANALGESIA Furosemide 40 mg 11/28/21 10:00 Furosemide 40 Mg Tab PO QDAY PAULINA Haloperidol Lactate 5 mg 11/26/21 15:00 11/27/21 04:31 Haloperidol Lactate 5 Mg/1 Ml Inj IV 5 mg Q8HR PRN Administration Agitation Hydralazine HCl 10 mg 11/18/21 10:44 11/27/21 07:34 Hydralazine 20 Mg/1 Ml Inj IV 10 mg Q4HR PRN Administration Hypertension Hydrophilic Ointment 1 applic 11/18/21 15:26 Lip Therapy Vaseline TP Q2HR PRN Dry Lips Dexmedetomidine HCl 400 mcg/ 104 mls @ 4.243 mls/hr 11/27/21 11:00 Sodium Chloride IV TITRATE [facility] Protocol 0.2 MCG/KG/HR Fentanyl Citrate 2,000 mcg in 100 mls @ 4.08 mls/hr 11/27/21 12:00 Fentanyl Drip Premix IV TITR [facility] Protocol 1 MCG/KG/HR Insulin Human Lispro 0 unit 11/18/21 12:00 11/26/21 23:48 Insulin Lispro 100 Unit/Ml SUB-Q Not Given Q6HR [facility] Protocol Magnesium Hydroxide 30 ml 11/18/21 03:10 Magnesium Hydroxide (Mom) Oral Liqd Udc PO Q4H PRN Constipation Midazolam HCl 5 mg 11/27/21 12:00 Midazolam 5 Mg/5 Ml Inj Mdv IV 11/27/21 23:59 ONCE NR Multi-Ingred Cream/Lotion/Oil/Oint 1 applic 11/18/21 15:26 Mineral Oil/Petrolatum, White Ophth Oint 3.5 Gm OU Q4HR PRN Dry Eye(s) Ondansetron HCl 4 mg 11/18/21 03:10 Ondansetron 4 Mg/2 Ml Inj IV Q8H PRN Nausea And Vomiting Oxycodone HCl 5 mg 11/27/21 09:50 Oxycodone 5 Mg Tab PO Q6H PRN Pain, Moderate (4-6) Senna/Docusate Sodium 1 tab 11/18/21 22:00 11/27/21 11:42 Sennosides/Docusate Sodium 8.6/50 Mg Tab FEEDTUBE Not Given BID PAULINA Simple Syrup 15 ml 11/18/21 16:10 Simple Syrup 15 Ml FEEDTUBE PRN PRN Hypoglycemia Simple Syrup 30 ml 11/18/21 16:10 Simple Syrup 15 Ml FEEDTUBE PRN PRN Hypoglycemia Sodium Bicarbonate 325 mg 11/18/21 16:10 Sodium Bicarbonate 325 Mg Tab FEEDTUBE PRN PRN For Clogged Feeding Tube Nutrition/Malnutrition Assess - Dietary Evaluation Nutrition/Malnutrition Findings: Nutrition Notes Start: 11/18/21 10:45 Freq: Status: Active Protocol: Document 11/24/21 12:07 LEONARDO (Rec: 11/24/21 13:29 LEONARDO [id number]) Nutrition Notes Initial or Follow up Brief Note Current Diet TF-Promote @ 65 ml/hr (since D 11/18). Height 5 ft 8 in Weight 81.6 kg [place] Body Weight (kg) 63.63 BMI 27.3 Weight change and time frame No body weight change reported . Weight Status Overweight Subjective/Other Information RD consult for TF tolerance. TF continues as prescribed. Percent of energy/protein needs met: rescribed TF-Promote @ 65 ml/ hr provides for energy/protein needs (1,570 Kcal/98 g) during LOS; 95% Kcal; 96% AA. #1 Nutrition Diagnosis Inadequate oral intake Diagnosis Progress(for reassessment Continues documentation) Nutrition Intervention Nutrition Support: Continue Promote @ 65 ml/hr. Flush: 60 ml water Q 4 hr. Goal #1 Provide at least 75% of energy /protein needs through Enteral Feeding during LOS. Follow-Up By: 12/01/21 Additional Comments Continue monitoring TF tolerance, and BM. <ELEAZAR SCHMID - Last Filed: 11/30/21 23:50> Assessment and Plan Assessment and plan: I saw and evaluated the patient. Discussed with the nurse practitioner and agree with their findings and plan as documented in this note. Hospitalist Physical - Constitutional Vitals: Temp Pulse Resp BP Pulse Ox 97.6 F 58 L 18 136/59 95 11/30/21 20:00 11/30/21 22:46 11/30/21 22:10 11/30/21 22:46 11/30/21 18:01 HEART Score - HEART Score Troponin: Troponin T < 0.010 ng/mL (0.00-0.029) 11/18/21 03:25 Results - Labs CBC & Chem 7: 11/30/21 04:42 11/30/21 04:42 Labs: Laboratory Last Values WBC 10.4 K/mm3 (4.5-11.0) 11/30/21 04:42 RBC 5.05 M/mm3 (3.65-5.03) H 11/30/21 04:42 Hgb 13.1 gm/dl (10.1-14.3) 11/30/21 04:42 Hct 43.6 % (30.3-42.9) H 11/30/21 04:42 MCV 86 fl (79-97) 11/30/21 04:42 MCH 26 pg (28-32) L 11/30/21 04:42 MCHC 30 % (30-34) 11/30/21 04:42 RDW 17.5 % (13.2-15.2) H 11/30/21 04:42 Plt Count 431 K/mm3 (140-440) 11/30/21 04:42 Lymph % (Auto) 12.3 % (13.4-35.0) L 11/19/21 07:59 [place] % (Auto) 9.6 % (0.0-7.3) H 11/19/21 07:59 Eos % (Auto) 0.7 % (0.0-4.3) 11/19/21 07:59 Baso % (Auto) 0.5 % (0.0-1.8) 11/19/21 07:59 Lymph # (Auto) 1.6 K/mm3 (1.2-5.4) 11/19/21 07:59 [place] # (Auto) 1.2 K/mm3 (0.0-0.8) H 11/19/21 07:59 Eos # (Auto) 0.1 K/mm3 (0.0-0.4) 11/19/21 07:59 Baso # (Auto) 0.1 K/mm3 (0.0-0.1) 11/19/21 07:59 Add Manual Diff Complete 11/18/21 00:19 Total Counted 100 11/18/21 00:19 Seg Neutrophils % 76.9 % (40.0-70.0) H 11/19/21 07:59 Lymphocytes % (Manual) 4.0 % (13.4-35.0) L 11/18/21 00:19 Monocytes % (Manual) 2.0 % (0.0-7.3) 11/18/21 00:19 Nucleated RBC % Not Reportable 11/18/21 00:19 Seg Neutrophils # 9.7 K/mm3 (1.8-7.7) H 11/19/21 07:59 Seg Neutrophils # Man 14.7 K/mm3 (1.8-7.7) H 11/18/21 00:19 Band Neutrophils # 0.0 K/mm3 11/18/21 00:19 Lymphocytes # (Manual) 0.6 K/mm3 (1.2-5.4) L 11/18/21 00:19 Abs React Lymphs (Man) 0.0 K/mm3 11/18/21 00:19 Monocytes # (Manual) 0.3 K/mm3 (0.0-0.8) 11/18/21 00:19 Eosinophils # (Manual) 0.0 K/mm3 (0.0-0.4) 11/18/21 00:19 Basophils # (Manual) 0.0 K/mm3 (0.0-0.1) 11/18/21 00:19 Metamyelocytes # 0.0 K/mm3 11/18/21 00:19 Myelocytes # 0.0 K/mm3 11/18/21 00:19 Promyelocytes # 0.0 K/mm3 11/18/21 00:19 Blast Cells # 0.0 K/mm3 11/18/21 00:19 WBC Morphology Not Reportable 11/18/21 00:19 Hypersegmented Neuts Not Reportable 11/18/21 00:19 Hyposegmented Neuts Not Reportable 11/18/21 00:19 Hypogranular Neuts Not Reportable 11/18/21 00:19 Smudge Cells Not Reportable 11/18/21 00:19 Toxic Granulation Not Reportable 11/18/21 00:19 Toxic Vacuolation Not Reportable 11/18/21 00:19 Dohle Bodies Not Reportable 11/18/21 00:19 Pelger-Huet Anomaly Not Reportable 11/18/21 00:19 Luis Rods Not Reportable 11/18/21 00:19 Platelet Estimate Consistent w auto 11/18/21 00:19 Clumped Platelets Not Reportable 11/18/21 00:19 Plt Clumps, EDTA Not Reportable 11/18/21 00:19 Large Platelets Not Reportable 11/18/21 00:19 Giant Platelets Not Reportable 11/18/21 00:19 Platelet Satelliting Not Reportable 11/18/21 00:19 Plt Morphology Comment Not Reportable 11/18/21 00:19 RBC Morphology Not Reportable 11/18/21 00:19 Dimorphic RBCs Not Reportable 11/18/21 00:19 Polychromasia Not Reportable 11/18/21 00:19 Hypochromasia Not Reportable 11/18/21 00:19 Poikilocytosis Not Reportable 11/18/21 00:19 Anisocytosis 1+ 11/18/21 00:19 Microcytosis Not Reportable 11/18/21 00:19 Macrocytosis Few 11/18/21 00:19 Spherocytes Not Reportable 11/18/21 00:19 Pappenheimer Bodies Not Reportable 11/18/21 00:19 Sickle Cells Not Reportable 11/18/21 00:19 Target Cells Not Reportable 11/18/21 00:19 Tear Drop Cells Not Reportable 11/18/21 00:19 Ovalocytes Not Reportable 11/18/21 00:19 Helmet Cells Not Reportable 11/18/21 00:19 [place] Bodies Not Reportable 11/18/21 00:19 [place] Rings Not Reportable 11/18/21 00:19 [place] Cells Not Reportable 11/18/21 00:19 Bite Cells Not Reportable 11/18/21 00:19 Crenated Cell Not Reportable 11/18/21 00:19 Elliptocytes Not Reportable 11/18/21 00:19 Acanthocytes (Spur) Not Reportable 11/18/21 00:19 Rouleaux Not Reportable 11/18/21 00:19 Hemoglobin C Crystals Not Reportable 11/18/21 00:19 Schistocytes Not Reportable 11/18/21 00:19 Malaria parasites Not Reportable 11/18/21 00:19 Shahriar Bodies Not Reportable 11/18/21 00:19 Hem Pathologist Commnt No 11/18/21 00:19 PT 12.9 Sec. (12.2-14.9) 11/18/21 00:19 INR 0.88 (0.87-1.13) 11/18/21 00:19 APTT 29.2 Sec. (24.2-36.6) 11/18/21 00:19 D-Dimer 464.80 ng/mlDDU (0-234) H 11/18/21 05:15 ABG pH 7.357 (7.320-7.450) 11/30/21 12:04 POC ABG pCO2 60.0 mmHg (32.0-48.0) H 11/30/21 12:04 ABG pCO2 64.5 mm Hg 11/26/21 10:28 POC ABG pO2 68.3 mmHg (83-108) L 11/30/21 12:04 ABG pO2 66.5 mm Hg (80.0-90.0) L 11/26/21 10:28 POC ABG HCO3 32.9 11/30/21 12:04 ABG HCO3 39.6 mmol/L (20.0-26.0) H 11/26/21 10:28 ABG O2 Saturation 92.3 (0-100) 11/30/21 12:04 ABG O2 Content 21.3 (0.0-44) 11/26/21 10:28 POC ABG Base Excess 5.5 11/30/21 12:04 ABG Base Excess 11.4 mmol/L (-2.0-3.0) H 11/26/21 10:28 ABG Hemoglobin 14.4 (12.0-17.5) 11/30/21 12:04 ABG Oxyhemoglobin 90.9 (94-98) L 11/30/21 12:04 ABG Carboxyhemoglobin 2.3 % (0.0-5.0) 11/26/21 10:28 ABG Methemoglobin 0.3 (0.0-1.5) 11/30/21 12:04 ABG Sodium 145.1 mmol/L (136.0-145.0) H 11/30/21 12:04 ABG Potassium 4.0 mmol/L (3.40-4.50) 11/30/21 12:04 ABG Chloride 102.0 mmol/L (98-107) 11/30/21 12:04 ABG Glucose 122 mg/dL (65-95) H 11/30/21 12:04 Oxyhemoglobin 90.3 % (95.0-99.0) L 11/26/21 10:28 Carboxyhemoglobin 1.2 (0.5-1.5) 11/30/21 12:04 FiO2 40 % 11/26/21 10:28 FiO2 % 40 11/30/21 12:04 Sodium 143 mmol/L (137-145) 11/30/21 04:42 Potassium 4.6 mmol/L (3.6-5.0) D 11/30/21 04:42 Chloride 101.8 mmol/L (98-107) 11/30/21 04:42 Carbon Dioxide 28 mmol/L (22-30) 11/30/21 04:42 Anion Gap 18 mmol/L 11/30/21 04:42 BUN 32 mg/dL (7-17) H 11/30/21 04:42 Creatinine 0.5 mg/dL (0.6-1.2) L 11/30/21 04:42 Estimated GFR > 60 ml/min 11/30/21 04:42 BUN/Creatinine Ratio 64 % 11/30/21 04:42 Glucose 178 mg/dL (65-100) H 11/30/21 04:42 POC Glucose 124 mg/dL (70-105) H 11/30/21 17:35 Hemoglobin A1c 5.9 % (4-6) 11/19/21 07:59 Lactic Acid 1.40 mmol/L (0.7-2.0) 11/18/21 00:19 Calcium 9.6 mg/dL (8.4-10.2) 11/30/21 04:42 Phosphorus 3.30 mg/dL (2.5-4.5) 11/29/21 05:51 Magnesium 2.20 mg/dL (1.7-2.3) 11/29/21 05:51 Total Bilirubin 0.40 mg/dL (0.1-1.2) 11/18/21 00:19 Direct Bilirubin < 0.2 mg/dL (0-0.2) 11/18/21 00:19 Indirect Bilirubin 0.2 mg/dL 11/18/21 00:19 AST 22 units/L (5-40) 11/18/21 00:19 ALT 25 units/L (7-56) 11/18/21 00:19 Alkaline Phosphatase 99 units/L (35-129) 11/18/21 00:19 Ammonia 54.0 umol/L (25-60) 11/18/21 00:19 Lactate Dehydrogenase 275 units/L (91-180) H 11/18/21 05:15 Troponin T < 0.010 ng/mL (0.00-0.029) 11/18/21 03:25 C-Reactive Protein 0.70 mg/dL (0.00-1.30) 11/18/21 15:47 NT-Pro-B Natriuret Pep 867.7 pg/mL (0-900) 11/18/21 00:19 Total Protein 7.4 g/dL (6.3-8.2) 11/18/21 00:19 Albumin 4.0 g/dL (3.9-5) 11/18/21 00:19 Albumin/Globulin Ratio 1.2 % 11/18/21 00:19 Triglycerides 185 mg/dL (2-149) H 11/22/21 04:39 Lipase 13 units/L (13-60) 11/18/21 00:19 Procalcitonin 0.12 ng/mL (<0.15) 11/18/21 05:15 Arterial Blood Glucose 122 mg/dL (65-95) H 11/30/21 12:04 Arterial Blood Ionized Calcium 5.2 mg/dL (4.6-5.3) 11/29/21 03:51 Urine Color Yellow (Yellow) 11/23/21 12:24 Urine Turbidity Clear (Clear) 11/23/21 12:24 Urine pH 7.0 (5.0-7.0) 11/23/21 12:24 Ur Specific [place] 1.018 (1.003-1.030) 11/23/21 12:24 Urine Protein <15 mg/dl mg/dL (Negative) 11/23/21 12:24 Urine Glucose (UA) Neg mg/dL (Negative) 11/23/21 12:24 Urine Ketones Neg mg/dL (Negative) 11/23/21 12:24 Urine Blood Neg (Negative) 11/23/21 12:24 Urine Nitrite Neg (Negative) 11/23/21 12:24 Urine Bilirubin Neg (Negative) 11/23/21 12:24 Urine Urobilinogen 4.0 mg/dL (<2.0) 11/23/21 12:24 Ur Leukocyte Esterase Neg (Negative) 11/23/21 12:24 Urine WBC (Auto) 1.0 /HPF (0.0-6.0) 11/23/21 12:24 Urine RBC (Auto) 1.0 /HPF (0.0-6.0) 11/23/21 12:24 U Epithel Cells (Auto) 1.0 /HPF (0-13.0) 11/18/21 01:03 Hyaline Casts 3 /LPF 11/18/21 01:03 Urine Mucus Few /HPF 11/18/21 01:03 Salicylates < 0.3 mg/dL (2.8-20.0) L 11/18/21 00:19 Urine Opiates Screen Negative 11/18/21 01:03 Urine Methadone Screen Negative 11/18/21 01:03 Acetaminophen 5.0 ug/mL (10.0-30.0) L 11/18/21 00:19 Ur Barbiturates Screen Negative 11/18/21 01:03 Ur Phencyclidine Scrn Negative 11/18/21 01:03 Ur Amphetamines Screen Negative 11/18/21 01:03 U Benzodiazepines Scrn Negative 11/18/21 01:03 Urine Cocaine Screen Negative 11/18/21 01:03 U Marijuana (THC) Screen Negative 11/18/21 01:03 Drugs of Abuse Note Disclamer 11/18/21 01:03 Plasma/Serum Alcohol < 0.01 % (0-0.07) 11/18/21 00:19 Coronavirus (PCR) Negative (Negative) 11/18/21 Unknown Briggs/IV: Voiding Method Indwelling Catheter Active Medications - Current Medications Current Medications: Generic Name Dose Route Start Last Admin Trade Name Freq PRN Reason Stop Dose Admin Acetaminophen 650 mg 11/18/21 03:10 11/22/21 19:49 Acetaminophen 650 Mg Rect Supp [place] 650 mg Q6H PRN Administration Pain MILD(1-3)/Fever >100.5/MONTIEL Acetaminophen 650 mg 11/23/21 00:56 11/28/21 05:37 Acetaminophen 325 Mg/10.15 Ml Oral Liqd Unit Dose FEEDTUBE 650 mg Q6H PRN Administration Non Cardiac Pain or Temp>100.5 Acetylcysteine 200 mg 11/30/21 20:00 11/30/21 22:07 Acetylcysteine 20% 200 Mg/1 Ml *For Inhalation Use* INHALATION 12/03/21 19:59 Not Given Q6HRT PAULINA Albuterol/Ipratropium 1 ampul 11/30/21 15:00 11/30/21 22:04 Ipratropium/Albuterol Sulfate 3 Ml Ampul.Neb IH 1 ampul Q6HRT PAULINA Administration Amlodipine Besylate 10 mg 11/27/21 10:00 11/30/21 10:10 Amlodipine 10 Mg Tab PO 10 mg DAILY PAULINA Administration Lipase/Protease/Amylase 1 each 11/29/21 15:50 Lipase 10,500/Protease 25,000/Amylase 43,750 (Units) Dr Cross FEEDTUBE PRN PRN For Clogged Feeding Tube Arformoterol Tartrate 15 mcg 11/18/21 20:00 11/30/21 22:03 Arformoterol 15 Mcg/2 Ml Nebu IH 15 mcg Q12HRT PAULINA Administration Aspirin 81 mg 11/27/21 10:00 11/30/21 10:09 Aspirin Ec 81 Mg Tab PO 81 mg QDAY PAULINA Administration Budesonide 0.5 mg 11/18/21 20:00 11/30/21 22:03 Budesonide 0.5 Mg/2 Ml Nebu IH 0.5 mg Q12HRT PAULINA Administration Buspirone HCl 7.5 mg 11/28/21 22:00 11/30/21 22:47 Buspirone 5 Mg Tab PO 7.5 mg BID PAULINA Administration Carvedilol 12.5 mg 11/25/21 13:00 11/30/21 22:46 Carvedilol 12.5 Mg Tab FEEDTUBE Not Given BID PAULINA Dextrose 50 ml 11/18/21 10:40 Dextrose 50% In Water (25gm) 50 Ml Syringe IV Q30MIN PRN Hypoglycemia Protocol Enoxaparin Sodium 40 mg 11/19/21 22:00 11/30/21 22:48 Enoxaparin 40 Mg/0.4 Ml Inj SUB-Q 40 mg QDAY@2200 PAULINA Administration Protocol Famotidine 20 mg 11/20/21 10:00 11/30/21 22:47 Famotidine 20 Mg Tab FEEDTUBE 20 mg BID PAULINA Administration Fentanyl 50 mcg 11/27/21 11:45 11/30/21 12:09 Fentanyl 100 Mcg/2 Ml Inj IV 50 mcg Q10MIN PRN Administration ANALGESIA Haloperidol Lactate 5 mg 11/26/21 15:00 11/27/21 04:31 Haloperidol Lactate 5 Mg/1 Ml Inj IV 5 mg Q8HR PRN Administration Agitation Hydralazine HCl 10 mg 11/18/21 10:44 11/27/21 07:34 Hydralazine 20 Mg/1 Ml Inj IV 10 mg Q4HR PRN Administration Hypertension Hydrophilic Ointment 1 applic 11/18/21 15:26 Lip Therapy Vaseline TP Q2HR PRN Dry Lips Dexmedetomidine HCl 400 mcg/ 104 mls @ 4.243 mls/hr 11/27/21 11:00 11/30/21 13:00 Sodium Chloride IV 0 mcg/kg/hr TITRATE PAULINA 0 mls/hr Titration Protocol 0.2 MCG/KG/HR Fentanyl Citrate 2,000 mcg in 100 mls @ 4.08 mls/hr 11/27/21 12:00 11/30/21 22:48 Fentanyl Drip Premix IV 3 mcg/kg/hr TITR PAULINA 12.24 mls/hr Administration Protocol 1 MCG/KG/HR Insulin Human Lispro 0 unit 11/18/21 12:00 11/30/21 18:10 Insulin Lispro 100 Unit/Ml SUB-Q Not Given Q6HR [facility] Protocol Magnesium Hydroxide 30 ml 11/18/21 03:10 Magnesium Hydroxide (Mom) Oral Liqd Udc PO Q4H PRN Constipation Methylprednisolone Sodium Succinate 30 mg 11/29/21 12:00 11/30/21 18:08 Methylprednisolone Sod Succinate 40 Mg/1 Ml Inj IV 12/01/21 06:01 30 mg Q6HR PAULINA Administration Multi-Ingred Cream/Lotion/Oil/Oint 1 applic 11/18/21 15:26 Mineral Oil/Petrolatum, White Ophth Oint 3.5 Gm OU Q4HR PRN Dry Eye(s) Ondansetron HCl 4 mg 11/18/21 03:10 Ondansetron 4 Mg/2 Ml Inj IV Q8H PRN Nausea And Vomiting Oxycodone HCl 5 mg 11/27/21 09:50 Oxycodone 5 Mg Tab PO Q6H PRN Pain, Moderate (4-6) Quetiapine Fumarate 200 mg 11/30/21 22:00 11/30/21 22:47 Quetiapine 200 Mg Tab PO 200 mg BID PAULINA Administration Scopolamine 1 each 11/30/21 15:00 11/30/21 14:55 Scopolamine Transdermal Patch 72 Hr TD 1 each Q3D PAULINA Administration Senna/Docusate Sodium 1 tab 11/18/21 22:00 11/30/21 22:47 Sennosides/Docusate Sodium 8.6/50 Mg Tab FEEDTUBE 1 tab BID PAULINA Administration Simple Syrup 15 ml 11/29/21 15:50 Simple Syrup 15 Ml FEEDTUBE PRN PRN Hypoglycemia Simple Syrup 30 ml 11/29/21 15:50 Simple Syrup 15 Ml FEEDTUBE PRN PRN Hypoglycemia Sodium Bicarbonate 325 mg 11/29/21 15:50 Sodium Bicarbonate 325 Mg Tab FEEDTUBE PRN PRN For Clogged Feeding Tube Nutrition/Malnutrition Assess - Dietary Evaluation Nutrition/Malnutrition Findings: Nutrition Notes Start: 11/18/21 10:45 Freq: Status: Active Protocol: Document 11/29/21 15:42 ROSE (Rec: 11/29/21 15:50 NHALL [id number]) Nutrition Notes Initial or Follow up Reassessment Current Diagnosis COPD,Coronary Artery Disease, Heart Failure,Respiratory Failure,Hyperlipidemia Other Pertinent Diagnosis Toxic metabolic encephalopathy , Bilat pneu, UTI Current Diet TF - Promote at 65ml/hr Labs/Tests BUN 42 Pertinent Medications Reviewed Height 5 ft 8 in Weight 81.6 kg [place] Body Weight (kg) 63.63 BMI 27.3 Weight Status Overweight Subjective/Other Information Pt extubated on 11/27/21, however she was re-intubated on the same day sec to resp distress. TF infusing at 55ml /hr; per RN, will increase to goal rate this evening. Percent of energy/protein needs met: 82% energy 84% pro Burn Absent Trauma Absent #1 Nutrition Diagnosis Inadequate oral intake Diagnosis Progress(for reassessment Continues documentation) Is patient on ventilator? Yes Is Patient Ambulatory and/or Out of Bed No REE-([facility]-confined [facility] bed) 1614.000 [facility]culation [facility] Additional Notes Pro needs 1.2-2g/k-163g/ day Fluid needs 1ml/kcal Nutrition Intervention Nutrition Support: Advance TF rate to goal of 65ml/hr and provide 50ml water flush q4h. Kcal 1,560 Protein (gm) 98 Carbohydrates (gm) 203 Fat (gm) 41 Fluid (mL) 1,309 Fiber (gm) 0 Goal #1 TF tolerance Goal #2 TF to meet at least 75% energy and pro needs Follow-Up By: 12/03/21 Additional Comments F/U: TF goal rate and tolerance, vent status
[2021-11-27] MEDS: INSULIN LISPRO 100 UNIT/ML SUB-Q SCH ×2 (12:39→17:32)
--- NOTE | 2021-11-27 12:58 | XRay Report ---
CHEST 1 VIEW 11/27/2021 11:49 AM INDICATION / CLINICAL INFORMATION: ETT placement. COMPARISON: 11/23/2021 FINDINGS: SUPPORT DEVICES: Stable, satisfactory device positioning. HEART / MEDIASTINUM: Stable. LUNGS / PLEURA: Mildly improved patchy bilateral opacities. No pneumothorax. ADDITIONAL FINDINGS: No significant additional findings. IMPRESSION: 1. Mildly improved patchy bilateral pulmonary opacities. Signer Name: Yasmany Contreras MD Signed: 11/27/2021 12:54 PM Workstation Name: [id number]
--- NOTE | 2021-11-27 13:03 | Event Note ---
Date: 11/27/21 Developed stridor, with increasing work of breathing and remains hypertensive. Decision made to reintubate the patient. Discussed with primary service
[2021-11-27] MEDS: ENOXAPARIN 40 MG/0.4 ML INJ SUB-Q SCH (21:24)
[2021-11-28] MEDS: INSULIN LISPRO 100 UNIT/ML SUB-Q SCH ×4 (00:03→17:19)
[2021-11-28] MEDS: SENNOSIDES/DOCUSATE SODIUM 8.6/50 MG TAB FEEDTUBE SCH ×3 (00:03→22:29)
[2021-11-28] MEDS: FREE WATER PO SCH ×6 (00:15→22:29)
[2021-11-28] MEDS: fentaNYL DRIP Premix 2,000 MCG/100 ML BAG IV SCH ×4 (01:39→20:06)
[2021-11-28 03:56] LABS: Mean Corpuscular HGB Conc 30 % (30-34); Mean Corpuscular Volume 86 fl (79-97); Platelet Count 400 K/mm3 (140-440); Red Blood Count 5.05 M/mm3 (3.65-5.03); Red Cell Distribution Width 17.8 % (13.2-15.2)
[2021-11-28 04:01] LABS: Hematocrit 43.6 % (30.3-42.9); Hemoglobin 13.1 gm/dl (10.1-14.3)
[2021-11-28 04:21] LABS: BUN/Creatinine Ratio 64; Blood Urea Nitrogen 51 mg/dL (7-17); Calcium 10.5 mg/dL (8.4-10.2); Hemolysis Index 4
--- NOTE | 2021-11-28 04:45 | XRay Report ---
CHEST 1 VIEW INDICATION / CLINICAL INFORMATION: follow up respiratory failure. COMPARISON: 11/27/2021 FINDINGS: SUPPORT DEVICES: Stable, satisfactory device positioning. HEART / MEDIASTINUM: No significant abnormality. LUNGS / PLEURA: Left basilar pleural-parenchymal disease persists. The remainder of the lungs are cherrie ssly clear. Prominent bilateral main pulmonary arteries are most likely indicative of pulmonary arter ial hypertension. No pneumothorax. ADDITIONAL FINDINGS: No significant additional findings. IMPRESSION: 1. Persistent left basilar pleural-parenchymal disease. Signer Name: Karena Sarmiento MD Signed: 11/28/2021 4:40 AM Workstation Name: [id number]
[2021-11-28] MEDS: ACETAMINOPHEN 325 MG/10.15 ML ORAL LIQD UNIT DOSE FEEDTUBE PRN (05:37)
--- NOTE | 2021-11-28 05:49 | Progress Note ---
Assessment and Plan Acute exacerbation of chronic obstructive lung disease Acute hypoxemic respiratory failure Acute congestive heart failure exacerbation (Flash Pulmonary edema) Community-acquired pneumonia Leukocytosis History of coronary artery disease Gastroesophageal reflux disease Arthritis Hyperlipidemia Obesity Elevated D-dimers Acute toxic metabolic encephalopathy Urinary tract infection Hypertensive emergency Hypernatremia Keep negative fluid balance Short course of steroids - Daily SAT and SBT assessment as tolerated - continue to wean supplemental oxygen , keep SpO2 88-90% - VAP bundle addressed, aspiration precautions, HOB>40 - continue lung protective strategies - continue bronchodilators with pulmonary hygiene per RT - wean per pulmonary driven protocols otherwise - avoid nephrotoxins, renally dose all medications - continue accuchecks with glycemic control per SSI (While critically ill target blood glucose of 140-180 mg/dL; avoid hypoglycemia) - sedation prn for target RASS 0 to -1 - continue to avoid benzodiazepines, reduce the possibility of delirium - prn analgesia per CPOT score - continue enteral nutritional support at goal rate as tolerated -Stress ulcer and VTE prophylaxis - continue mobility protocols for pressure ulcer prevention - Monitor hemodynamics closely - continue other care per attending / other consultants COVID SPECIFIC INTERVENTIONS: - COVID-19 test negative CONDITION: CRITICAL PROGNOSIS: GUARDED CODE STATUS: FULL CODE The high probability of a clinically significant, sudden or life-threatening deterioration of the [respiratory, cardiovascular & neurologic] system(s) required my full and direct attention, intervention and personal management. The aggregate critical care time was [34] minutes without overlap. Time includes spent on; [x] Data Review and interpretation [x] Patient assessment and monitoring of vital signs [x] Documentation [x] Medication orders and management Subjective Date of service: 11/28/21 Principal diagnosis: AE-COPD; AHRF; CHF (? new onset); CAP; CAD; Obesity; HTNsive Emergency Interval history: SUMMARY This is a 81-year-old female with CAD s/p IL, GERD, chronic back pain, HLD, neuropathy, emphysema, CHF, pulmonary HTN, COPD who presents to the emergency department on 11/18 via EMS for altered mental status. According to EMS patient was having difficulty breathing and minimally responsive but in respiratory distress initially. Respiratory status was said to have worsened in route to the hospital and the patient had been given Solu-Medrol magnesium IV however he developed pinpoint pupils and was given Narcan with improvement. Work-up in the emergency department revealed leukocytosis, elevated D-dimer, 8 UTI on UA, CXR showed bilateral pulmonary opacities possibly reflecting edema or atelectasis or pneumonia, CT chest showed evidence of pulmonary hypertension with dense consolidation along the left lower lobe concerning for pneumonia and mild interstitial pulmonary edema. Patient was admitted to the hospital service with acute hypoxic respiratory failure, acute COPD exacerbation and UTI to the ICU with consults to CCM. Patient seen and examined. Vitals, labs, medications, chart and imaging review ed. Discussed with respiratory and nursing care staff. Re-intubated yesterday for stridor and increased work of breathing. No acute events overnight Objective Vital Signs - 12hr 11/27/21 11/27/21 11/27/21 18:00 19:00 19:48 Temperature 99.1 F Pulse Rate 80 84 Pulse Rate [ From Monitor] Respiratory 13 18 Rate Blood Pressure 149/63 167/68 O2 Sat by Pulse 97 97 Oximetry 11/27/21 11/27/21 11/27/21 20:00 20:01 20:40 Temperature Pulse Rate 70 75 75 Pulse Rate [ 70 From Monitor] Respiratory 16 16 Rate Blood Pressure 164/65 166/70 O2 Sat by Pulse 97 99 97 Oximetry 11/27/21 11/27/21 11/27/21 21:01 21:25 22:01 Temperature Pulse Rate 87 90 74 Pulse Rate [ From Monitor] Respiratory 25 H 16 Rate Blood Pressure 173/69 173/69 153/47 O2 Sat by Pulse 97 97 Oximetry 11/27/21 11/27/21 11/28/21 23:00 23:55 00:00 Temperature 99.6 F Pulse Rate 71 69 71 Pulse Rate [ 71 From Monitor] Respiratory 16 16 16 Rate Blood Pressure 106/56 116/57 108/52 O2 Sat by Pulse 97 97 97 Oximetry 11/28/21 11/28/21 11/28/21 01:00 02:01 03:01 Temperature Pulse Rate 81 70 66 Pulse Rate [ From Monitor] Respiratory 13 16 16 Rate Blood Pressure 113/63 109/46 104/46 O2 Sat by Pulse 97 94 92 Oximetry 11/28/21 11/28/21 11/28/21 03:43 03:50 04:01 Temperature 100.3 F H Pulse Rate 65 65 Pulse Rate [ From Monitor] Respiratory 16 Rate Blood Pressure 105/47 107/51 O2 Sat by Pulse 97 94 Oximetry 11/28/21 05:01 Temperature Pulse Rate 65 Pulse Rate [ From Monitor] Respiratory 16 Rate Blood Pressure 111/52 O2 Sat by Pulse Oximetry Constitutional: no acute distress, other (elderly obese female with normal respiratory effort at rest on MVS) Eyes: non-icteric ENT: oropharynx moist, other (ETT 24 cm EMIL) Neck: supple, no lymphadenopathy, no JVD, other (large circumference) Effort: normal Ascultation: Bilateral: clear, diminished breath sounds, rhonchi (scant) Percussion: Bilateral: not dull Cardiovascular: regular rate and rhythm, other (S1,S2) Gastrointestinal: normoactive bowel sounds, soft, non-tender, non-distended (protuberant) Integumentary: normal Extremities: no cyanosis, no edema, pulses normal, no ischemia or petechiae Neurologic: non-focal exam (grossly), pupils equal and round, CN II-XII normal, other Psychiatric: anxious, other CBC and BMP: 12/11/21 09:25 12/11/21 09:25 ABG, PT/INR, D-dimer: ABG ABG pH 7.485 (7.320-7.450) H 11/27/21 14:16 POC ABG pCO2 48.7 mmHg (32.0-48.0) H 11/27/21 14:16 ABG pCO2 64.5 mm Hg 11/26/21 10:28 POC ABG pO2 74.5 mmHg (83-108) L 11/27/21 14:16 ABG pO2 66.5 mm Hg (80.0-90.0) L 11/26/21 10:28 POC ABG HCO3 35.9 11/27/21 14:16 ABG O2 Saturation 95.9 (0-100) 11/27/21 14:16 PT/INR, D-dimer PT 12.9 Sec. (12.2-14.9) 11/18/21 00:19 INR 0.88 (0.87-1.13) 11/18/21 00:19 D-Dimer 464.80 ng/mlDDU (0-234) H 11/18/21 05:15 Abnormal lab findings: Abnormal Labs 11/18/21 11/18/21 11/18/21 00:01 00:19 00:19 WBC 15.6 H RBC 5.59 H Hgb 14.8 H Hct 49.8 H MCH 27 L MCHC RDW 16.9 H Plt Count Lymph % (Auto) Bryan % (Auto) Lymph # (Auto) Bryan # (Auto) Seg Neutrophils % Lymphocytes % (Manual) 4.0 L Seg Neutrophils # Seg Neutrophils # Man 14.7 H Lymphocytes # (Manual) 0.6 L D-Dimer ABG pH POC ABG pCO2 POC ABG pO2 ABG pO2 ABG HCO3 ABG O2 Saturation ABG Base Excess ABG Hemoglobin ABG Sodium ABG Glucose Oxyhemoglobin Carboxyhemoglobin Sodium Potassium Carbon Dioxide BUN Creatinine Glucose 148 H POC Glucose 151 H Calcium Phosphorus Magnesium Lactate Dehydrogenase Triglycerides Arterial Blood Glucose Arterial Blood Ionized Calcium Urine WBC (Auto) Salicylates Acetaminophen 11/18/21 11/18/21 11/18/21 00:19 00:19 00:19 WBC RBC Hgb Hct MCH MCHC RDW Plt Count Lymph % (Auto) Bryan % (Auto) Lymph # (Auto) Bryan # (Auto) Seg Neutrophils % Lymphocytes % (Manual) Seg Neutrophils # Seg Neutrophils # Man Lymphocytes # (Manual) D-Dimer ABG pH POC ABG pCO2 POC ABG pO2 ABG pO2 ABG HCO3 ABG O2 Saturation ABG Base Excess ABG Hemoglobin ABG Sodium ABG Glucose Oxyhemoglobin Carboxyhemoglobin Sodium Potassium Carbon Dioxide BUN Creatinine Glucose POC Glucose Calcium Phosphorus Magnesium 2.50 H Lactate Dehydrogenase Triglycerides Arterial Blood Glucose Arterial Blood Ionized Calcium Urine WBC (Auto) Salicylates < 0.3 L Acetaminophen 5.0 L 11/18/21 11/18/21 11/18/21 01:03 02:00 05:15 WBC RBC Hgb Hct MCH MCHC RDW Plt Count Lymph % (Auto) Bryan % (Auto) Lymph # (Auto) Bryan # (Auto) Seg Neutrophils % Lymphocytes % (Manual) Seg Neutrophils # Seg Neutrophils # Man Lymphocytes # (Manual) D-Dimer 464.80 H ABG pH POC ABG pCO2 POC ABG pO2 ABG pO2 ABG HCO3 35.8 H ABG O2 Saturation ABG Base Excess 7.8 H ABG Hemoglobin ABG Sodium ABG Glucose Oxyhemoglobin 91.9 L Carboxyhemoglobin Sodium Potassium Carbon Dioxide BUN Creatinine Glucose POC Glucose Calcium Phosphorus Magnesium Lactate Dehydrogenase Triglycerides Arterial Blood Glucose Arterial Blood Ionized Calcium Urine WBC (Auto) 16.0 H Salicylates Acetaminophen 11/18/21 11/18/21 11/18/21 05:15 15:47 15:47 WBC 13.5 H RBC 5.60 H Hgb 14.9 H Hct 49.1 H MCH 27 L MCHC RDW 17.3 H Plt Count Lymph % (Auto) 7.9 L Bryan % (Auto) 10.1 H Lymph # (Auto) 1.1 L Bryan # (Auto) 1.4 H Seg Neutrophils % 81.7 H Lymphocytes % (Manual) Seg Neutrophils # 11.0 H Seg Neutrophils # Man Lymphocytes # (Manual) D-Dimer ABG pH POC ABG pCO2 POC ABG pO2 ABG pO2 ABG HCO3 ABG O2 Saturation ABG Base Excess ABG Hemoglobin ABG Sodium ABG Glucose Oxyhemoglobin Carboxyhemoglobin Sodium Potassium Carbon Dioxide BUN Creatinine Glucose 138 H POC Glucose Calcium Phosphorus Magnesium Lactate Dehydrogenase 275 H Triglycerides Arterial Blood Glucose Arterial Blood Ionized Calcium Urine WBC (Auto) Salicylates Acetaminophen 11/18/21 11/18/21 11/19/21 18:45 23:33 04:58 WBC RBC Hgb Hct MCH MCHC RDW Plt Count Lymph % (Auto) Bryan % (Auto) Lymph # (Auto) Bryan # (Auto) Seg Neutrophils % Lymphocytes % (Manual) Seg Neutrophils # Seg Neutrophils # Man Lymphocytes # (Manual) D-Dimer ABG pH POC ABG pCO2 POC ABG pO2 ABG pO2 ABG HCO3 ABG O2 Saturation ABG Base Excess ABG Hemoglobin ABG Sodium ABG Glucose Oxyhemoglobin Carboxyhemoglobin Sodium Potassium Carbon Dioxide BUN Creatinine Glucose 130 H POC Glucose 132 H 113 H Calcium Phosphorus Magnesium Lactate Dehydrogenase Triglycerides Arterial Blood Glucose Arterial Blood Ionized Calcium Urine WBC (Auto) Salicylates Acetaminophen 11/19/21 11/19/21 11/19/21 07:59 07:59 08:55 WBC 12.7 H RBC 5.29 H Hgb Hct 45.5 H MCH 26 L MCHC RDW 17.4 H Plt Count Lymph % (Auto) 12.3 L Bryan % (Auto) 9.6 H Lymph # (Auto) Bryan # (Auto) 1.2 H Seg Neutrophils % 76.9 H Lymphocytes % (Manual) Seg Neutrophils # 9.7 H Seg Neutrophils # Man Lymphocytes # (Manual) D-Dimer ABG pH 7.518 H POC ABG pCO2 POC ABG pO2 ABG pO2 77.6 L ABG HCO3 30.1 H ABG O2 Saturation ABG Base Excess 6.9 H ABG Hemoglobin ABG Sodium ABG Glucose Oxyhemoglobin Carboxyhemoglobin Sodium Potassium 3.1 L D Carbon Dioxide BUN Creatinine Glucose 115 H POC Glucose Calcium 8.1 L Phosphorus Magnesium Lactate Dehydrogenase Triglycerides Arterial Blood Glucose Arterial Blood Ionized Calcium Urine WBC (Auto) Salicylates Acetaminophen 11/19/21 11/19/21 11/20/21 11:33 16:22 04:20 WBC 13.9 H RBC 5.44 H Hgb Hct 49.3 H MCH 26 L MCHC 29 L RDW 18.3 H Plt Count Lymph % (Auto) Bryan % (Auto) Lymph # (Auto) Bryan # (Auto) Seg Neutrophils % Lymphocytes % (Manual) Seg Neutrophils # Seg Neutrophils # Man Lymphocytes # (Manual) D-Dimer ABG pH POC ABG pCO2 POC ABG pO2 ABG pO2 ABG HCO3 ABG O2 Saturation ABG Base Excess ABG Hemoglobin ABG Sodium ABG Glucose Oxyhemoglobin Carboxyhemoglobin Sodium Potassium Carbon Dioxide BUN Creatinine Glucose POC Glucose 119 H 112 H Calcium Phosphorus Magnesium Lactate Dehydrogenase Triglycerides Arterial Blood Glucose Arterial Blood Ionized Calcium Urine WBC (Auto) Salicylates Acetaminophen 11/20/21 11/20/21 11/20/21 04:20 11:07 12:02 WBC RBC Hgb Hct MCH MCHC RDW Plt Count Lymph % (Auto) Bryan % (Auto) Lymph # (Auto) Bryan # (Auto) Seg Neutrophils % Lymphocytes % (Manual) Seg Neutrophils # Seg Neutrophils # Man Lymphocytes # (Manual) D-Dimer ABG pH 7.251 L POC ABG pCO2 POC ABG pO2 ABG pO2 66.3 L ABG HCO3 30.2 H ABG O2 Saturation 91.8 L ABG Base Excess ABG Hemoglobin ABG Sodium ABG Glucose Oxyhemoglobin 89.4 L Carboxyhemoglobin Sodium 147 H Potassium Carbon Dioxide BUN 25 H Creatinine Glucose POC Glucose 118 H Calcium Phosphorus 6.40 H Magnesium Lactate Dehydrogenase Triglycerides Arterial Blood Glucose Arterial Blood Ionized Calcium Urine WBC (Auto) Salicylates Acetaminophen 11/20/21 11/21/21 11/21/21 17:31 00:07 04:44 WBC 14.0 H RBC 5.08 H Hgb Hct 44.7 H MCH 26 L MCHC 29 L RDW 17.8 H Plt Count Lymph % (Auto) Bryan % (Auto) Lymph # (Auto) Bryan # (Auto) Seg Neutrophils % Lymphocytes % (Manual) Seg Neutrophils # Seg Neutrophils # Man Lymphocytes # (Manual) D-Dimer ABG pH POC ABG pCO2 POC ABG pO2 ABG pO2 ABG HCO3 ABG O2 Saturation ABG Base Excess ABG Hemoglobin ABG Sodium ABG Glucose Oxyhemoglobin Carboxyhemoglobin Sodium Potassium Carbon Dioxide BUN Creatinine Glucose POC Glucose 139 H 147 H Calcium Phosphorus Magnesium Lactate Dehydrogenase Triglycerides Arterial Blood Glucose Arterial Blood Ionized Calcium Urine WBC (Auto) Salicylates Acetaminophen 11/21/21 11/21/21 11/21/21 04:44 06:06 11:45 WBC RBC Hgb Hct MCH MCHC RDW Plt Count Lymph % (Auto) Bryan % (Auto) Lymph # (Auto) Bryan # (Auto) Seg Neutrophils % Lymphocytes % (Manual) Seg Neutrophils # Seg Neutrophils # Man Lymphocytes # (Manual) D-Dimer ABG pH POC ABG pCO2 POC ABG pO2 ABG pO2 ABG HCO3 ABG O2 Saturation ABG Base Excess ABG Hemoglobin ABG Sodium ABG Glucose Oxyhemoglobin Carboxyhemoglobin Sodium Potassium Carbon Dioxide BUN 20 H Creatinine Glucose 157 H POC Glucose 158 H 119 H Calcium Phosphorus Magnesium Lactate Dehydrogenase Triglycerides Arterial Blood Glucose Arterial Blood Ionized Calcium Urine WBC (Auto) Salicylates Acetaminophen 11/21/21 11/21/21 11/22/21 11:50 16:54 00:03 WBC RBC Hgb Hct MCH MCHC RDW Plt Count Lymph % (Auto) Bryan % (Auto) Lymph # (Auto) Bryan # (Auto) Seg Neutrophils % Lymphocytes % (Manual) Seg Neutrophils # Seg Neutrophils # Man Lymphocytes # (Manual) D-Dimer ABG pH POC ABG pCO2 POC ABG pO2 ABG pO2 61.8 L ABG HCO3 35.2 H ABG O2 Saturation 92.8 L ABG Base Excess 8.1 H ABG Hemoglobin ABG Sodium ABG Glucose Oxyhemoglobin 90.6 L Carboxyhemoglobin Sodium Potassium Carbon Dioxide BUN Creatinine Glucose POC Glucose 149 H 133 H Calcium Phosphorus Magnesium Lactate Dehydrogenase Triglycerides Arterial Blood Glucose Arterial Blood Ionized Calcium Urine WBC (Auto) Salicylates Acetaminophen 11/22/21 11/22/21 11/22/21 04:39 04:39 04:39 WBC 14.1 H RBC Hgb Hct 43.4 H MCH 26 L MCHC RDW 17.9 H Plt Count Lymph % (Auto) Bryan % (Auto) Lymph # (Auto) Bryan # (Auto) Seg Neutrophils % Lymphocytes % (Manual) Seg Neutrophils # Seg Neutrophils # Man Lymphocytes # (Manual) D-Dimer ABG pH POC ABG pCO2 POC ABG pO2 ABG pO2 ABG HCO3 ABG O2 Saturation ABG Base Excess ABG Hemoglobin ABG Sodium ABG Glucose Oxyhemoglobin Carboxyhemoglobin Sodium Potassium Carbon Dioxide 33 H BUN Creatinine Glucose 152 H POC Glucose Calcium Phosphorus Magnesium Lactate Dehydrogenase Triglycerides 185 H Arterial Blood Glucose Arterial Blood Ionized Calcium Urine WBC (Auto) Salicylates Acetaminophen 11/22/21 11/22/21 11/22/21 05:02 10:56 11:31 WBC RBC Hgb Hct MCH MCHC RDW Plt Count Lymph % (Auto) Bryan % (Auto) Lymph # (Auto) Bryan # (Auto) Seg Neutrophils % Lymphocytes % (Manual) Seg Neutrophils # Seg Neutrophils # Man Lymphocytes # (Manual) D-Dimer ABG pH POC ABG pCO2 POC ABG pO2 ABG pO2 55.3 L ABG HCO3 39.4 H ABG O2 Saturation 89.5 L ABG Base Excess 11.7 H ABG Hemoglobin ABG Sodium ABG Glucose Oxyhemoglobin 87.2 L Carboxyhemoglobin Sodium Potassium Carbon Dioxide BUN Creatinine Glucose POC Glucose 158 H 116 H Calcium Phosphorus Magnesium Lactate Dehydrogenase Triglycerides Arterial Blood Glucose Arterial Blood Ionized Calcium Urine WBC (Auto) Salicylates Acetaminophen 11/22/21 11/22/21 11/23/21 17:29 23:22 04:49 WBC 13.6 H RBC 5.18 H Hgb Hct 45.6 H MCH 25 L MCHC 29 L RDW 17.5 H Plt Count Lymph % (Auto) Bryan % (Auto) Lymph # (Auto) Bryan # (Auto) Seg Neutrophils % Lymphocytes % (Manual) Seg Neutrophils # Seg Neutrophils # Man Lymphocytes # (Manual) D-Dimer ABG pH POC ABG pCO2 POC ABG pO2 ABG pO2 ABG HCO3 ABG O2 Saturation ABG Base Excess ABG Hemoglobin ABG Sodium ABG Glucose Oxyhemoglobin Carboxyhemoglobin Sodium Potassium Carbon Dioxide BUN Creatinine Glucose POC Glucose 129 H 171 H Calcium Phosphorus Magnesium Lactate Dehydrogenase Triglycerides Arterial Blood Glucose Arterial Blood Ionized Calcium Urine WBC (Auto) Salicylates Acetaminophen 11/23/21 11/23/21 11/23/21 04:49 11:53 16:22 WBC RBC Hgb Hct MCH MCHC RDW Plt Count Lymph % (Auto) Bryan % (Auto) Lymph # (Auto) Bryan # (Auto) Seg Neutrophils % Lymphocytes % (Manual) Seg Neutrophils # Seg Neutrophils # Man Lymphocytes # (Manual) D-Dimer ABG pH POC ABG pCO2 POC ABG pO2 ABG pO2 61.8 L ABG HCO3 40.9 H ABG O2 Saturation 93.4 L ABG Base Excess 14.6 H ABG Hemoglobin 6.9 L ABG Sodium ABG Glucose Oxyhemoglobin 90.2 L Carboxyhemoglobin Sodium 146 H Potassium Carbon Dioxide 36 H BUN 21 H Creatinine Glucose 155 H POC Glucose 166 H Calcium Phosphorus Magnesium Lactate Dehydrogenase Triglycerides Arterial Blood Glucose Arterial Blood Ionized Calcium Urine WBC (Auto) Salicylates Acetaminophen 11/23/21 11/23/21 11/24/21 17:11 23:07 05:03 WBC RBC Hgb Hct MCH MCHC RDW Plt Count Lymph % (Auto) Bryan % (Auto) Lymph # (Auto) Bryan # (Auto) Seg Neutrophils % Lymphocytes % (Manual) Seg Neutrophils # Seg Neutrophils # Man Lymphocytes # (Manual) D-Dimer ABG pH POC ABG pCO2 POC ABG pO2 ABG pO2 ABG HCO3 ABG O2 Saturation ABG Base Excess ABG Hemoglobin ABG Sodium ABG Glucose Oxyhemoglobin Carboxyhemoglobin Sodium Potassium Carbon Dioxide BUN Creatinine Glucose POC Glucose 142 H 197 H 183 H Calcium Phosphorus Magnesium Lactate Dehydrogenase Triglycerides Arterial Blood Glucose Arterial Blood Ionized Calcium Urine WBC (Auto) Salicylates Acetaminophen 11/24/21 11/24/21 11/24/21 08:33 08:33 09:00 WBC RBC Hgb Hct 43.6 H MCH 26 L MCHC RDW 18.0 H Plt Count Lymph % (Auto) Bryan % (Auto) Lymph # (Auto) Bryan # (Auto) Seg Neutrophils % Lymphocytes % (Manual) Seg Neutrophils # Seg Neutrophils # Man Lymphocytes # (Manual) D-Dimer ABG pH POC ABG pCO2 POC ABG pO2 ABG pO2 69.1 L ABG HCO3 40.1 H ABG O2 Saturation 93.2 L ABG Base Excess 11.9 H ABG Hemoglobin ABG Sodium ABG Glucose Oxyhemoglobin 90.3 L Carboxyhemoglobin Sodium Potassium 5.3 H D Carbon Dioxide 36 H BUN 25 H Creatinine 0.5 L Glucose 185 H POC Glucose Calcium Phosphorus Magnesium Lactate Dehydrogenase Triglycerides Arterial Blood Glucose Arterial Blood Ionized Calcium Urine WBC (Auto) Salicylates Acetaminophen 11/24/21 11/24/21 11/25/21 12:00 18:08 00:50 WBC RBC Hgb Hct MCH MCHC RDW Plt Count Lymph % (Auto) Bryan % (Auto) Lymph # (Auto) Bryan # (Auto) Seg Neutrophils % Lymphocytes % (Manual) Seg Neutrophils # Seg Neutrophils # Man Lymphocytes # (Manual) D-Dimer ABG pH POC ABG pCO2 POC ABG pO2 ABG pO2 67.3 L ABG HCO3 41.6 H 42.7 H ABG O2 Saturation 94.5 L ABG Base Excess 12.3 H 14.7 H ABG Hemoglobin ABG Sodium ABG Glucose Oxyhemoglobin 93.1 L 91.6 L Carboxyhemoglobin Sodium Potassium Carbon Dioxide BUN Creatinine Glucose POC Glucose 168 H Calcium Phosphorus Magnesium Lactate Dehydrogenase Triglycerides Arterial Blood Glucose Arterial Blood Ionized Calcium Urine WBC (Auto) Salicylates Acetaminophen 11/25/21 11/25/21 11/25/21 04:57 04:57 14:18 WBC RBC 5.13 H Hgb Hct 45.1 H MCH 26 L MCHC RDW 17.7 H Plt Count Lymph % (Auto) Bryan % (Auto) Lymph # (Auto) Bryan # (Auto) Seg Neutrophils % Lymphocytes % (Manual) Seg Neutrophils # Seg Neutrophils # Man Lymphocytes # (Manual) D-Dimer ABG pH POC ABG pCO2 POC ABG pO2 ABG pO2 65.1 L ABG HCO3 41.7 H ABG O2 Saturation 94.2 L ABG Base Excess 13.4 H ABG Hemoglobin ABG Sodium ABG Glucose Oxyhemoglobin 91.3 L Carboxyhemoglobin Sodium 146 H Potassium Carbon Dioxide 38 H BUN 26 H Creatinine 0.5 L Glucose 210 H POC Glucose Calcium Phosphorus Magnesium Lactate Dehydrogenase Triglycerides Arterial Blood Glucose Arterial Blood Ionized Calcium Urine WBC (Auto) Salicylates Acetaminophen 11/25/21 11/26/21 11/26/21 19:22 04:28 04:28 WBC RBC 5.05 H Hgb Hct 44.0 H MCH 26 L MCHC RDW 17.6 H Plt Count Lymph % (Auto) Bryan % (Auto) Lymph # (Auto) Bryan # (Auto) Seg Neutrophils % Lymphocytes % (Manual) Seg Neutrophils # Seg Neutrophils # Man Lymphocytes # (Manual) D-Dimer ABG pH POC ABG pCO2 POC ABG pO2 ABG pO2 ABG HCO3 ABG O2 Saturation ABG Base Excess ABG Hemoglobin ABG Sodium ABG Glucose Oxyhemoglobin Carboxyhemoglobin Sodium 146 H Potassium Carbon Dioxide 38 H BUN 30 H Creatinine Glucose 124 H POC Glucose 151 H Calcium 10.5 H Phosphorus Magnesium Lactate Dehydrogenase Triglycerides Arterial Blood Glucose Arterial Blood Ionized Calcium Urine WBC (Auto) Salicylates Acetaminophen 11/26/21 11/26/21 11/27/21 05:50 10:28 08:31 WBC 12.4 H RBC 5.62 H Hgb 14.6 H Hct 48.7 H MCH 26 L MCHC RDW 17.9 H Plt Count 469 H Lymph % (Auto) Bryan % (Auto) Lymph # (Auto) Bryan # (Auto) Seg Neutrophils % Lymphocytes % (Manual) Seg Neutrophils # Seg Neutrophils # Man Lymphocytes # (Manual) D-Dimer ABG pH POC ABG pCO2 POC ABG pO2 ABG pO2 66.5 L ABG HCO3 39.6 H ABG O2 Saturation 92.9 L ABG Base Excess 11.4 H ABG Hemoglobin 16.8 H ABG Sodium ABG Glucose Oxyhemoglobin 90.3 L Carboxyhemoglobin Sodium Potassium Carbon Dioxide BUN Creatinine Glucose POC Glucose 121 H Calcium Phosphorus Magnesium Lactate Dehydrogenase Triglycerides Arterial Blood Glucose Arterial Blood Ionized Calcium Urine WBC (Auto) Salicylates Acetaminophen 11/27/21 11/27/21 11/27/21 08:31 09:46 11:49 WBC RBC Hgb Hct MCH MCHC RDW Plt Count Lymph % (Auto) Bryan % (Auto) Lymph # (Auto) Bryan # (Auto) Seg Neutrophils % Lymphocytes % (Manual) Seg Neutrophils # Seg Neutrophils # Man Lymphocytes # (Manual) D-Dimer ABG pH POC ABG pCO2 POC ABG pO2 ABG pO2 ABG HCO3 ABG O2 Saturation ABG Base Excess ABG Hemoglobin ABG Sodium ABG Glucose Oxyhemoglobin Carboxyhemoglobin Sodium 150 H Potassium Carbon Dioxide 33 H BUN 31 H Creatinine Glucose 135 H POC Glucose 140 H 153 H Calcium 11.0 H Phosphorus Magnesium Lactate Dehydrogenase Triglycerides Arterial Blood Glucose Arterial Blood Ionized Calcium Urine WBC (Auto) Salicylates Acetaminophen 11/27/21 11/27/21 11/27/21 14:16 17:14 23:25 WBC RBC Hgb Hct MCH MCHC RDW Plt Count Lymph % (Auto) Bryan % (Auto) Lymph # (Auto) Bryan # (Auto) Seg Neutrophils % Lymphocytes % (Manual) Seg Neutrophils # Seg Neutrophils # Man Lymphocytes # (Manual) D-Dimer ABG pH 7.485 H POC ABG pCO2 48.7 H POC ABG pO2 74.5 L ABG pO2 ABG HCO3 ABG O2 Saturation ABG Base Excess ABG Hemoglobin ABG Sodium 145.5 H ABG Glucose 153 H Oxyhemoglobin Carboxyhemoglobin 1.6 H Sodium Potassium Carbon Dioxide BUN Creatinine Glucose POC Glucose 142 H 123 H Calcium Phosphorus Magnesium Lactate Dehydrogenase Triglycerides Arterial Blood Glucose 153 H Arterial Blood Ionized Calcium 5.4 H Urine WBC (Auto) Salicylates Acetaminophen 11/28/21 11/28/21 11/28/21 03:38 03:38 05:16 WBC RBC 5.05 H Hgb Hct 43.6 H MCH 26 L MCHC RDW 17.8 H Plt Count Lymph % (Auto) Bryan % (Auto) Lymph # (Auto) Bryan # (Auto) Seg Neutrophils % Lymphocytes % (Manual) Seg Neutrophils # Seg Neutrophils # Man Lymphocytes # (Manual) D-Dimer ABG pH POC ABG pCO2 POC ABG pO2 ABG pO2 ABG HCO3 ABG O2 Saturation ABG Base Excess ABG Hemoglobin ABG Sodium ABG Glucose Oxyhemoglobin Carboxyhemoglobin Sodium 150 H Potassium Carbon Dioxide 32 H BUN 51 H Creatinine Glucose 143 H POC Glucose 138 H Calcium 10.5 H Phosphorus Magnesium Lactate Dehydrogenase Triglycerides Arterial Blood Glucose Arterial Blood Ionized Calcium Urine WBC (Auto) Salicylates Acetaminophen Chest x-ray: image reviewed Allied health notes reviewed: RT
[2021-11-28] MEDS: BUDESONIDE 0.5 MG/2 ML NEBU IH SCH ×2 (09:12→20:08)
[2021-11-28] MEDS: ARFORMOTEROL 15 MCG/2 ML NEBU IH SCH ×2 (09:12→20:08)
[2021-11-28] MEDS: ASPIRIN EC 81 MG TAB PO SCH (09:41)
[2021-11-28] MEDS: carvediloL 12.5 MG TAB FEEDTUBE SCH ×2 (09:42→22:28)
[2021-11-28] MEDS: amLODIPine 10 MG TAB PO SCH (09:42)
[2021-11-28] MEDS: FAMOTIDINE 20 MG TAB FEEDTUBE SCH ×2 (09:42→22:29)
[2021-11-28] MEDS ORDERED: FUROSEMIDE 40 MG TAB PO SCH (10:00)
--- NOTE | 2021-11-28 15:19 | Progress Note ---
<DILLONFILI KrystalRoxi - Last Filed: 11/28/21 17:30> Assessment and Plan Assessment and plan: This is a 81-year-old AA female with CAD, CHF, pulmonary hypertension, COPD, and tobacco abuse admitted for acute hypoxemic respiratory failure 2/2 of bilateral pneumonia vs COPD exacerbation/pulmonary edema requiring intubation and ventilatory support. Neuro: Agitation, acute toxic metabolic encephalopathy -Sedated with fent and precedex -Goal RASS -2 -Seroquel daily -restarted today at low dose -restarted -SAT/SBT when appropriate -Maintain sleep-wake cycle -Avoid benzodiazepine -Reduce risk of delirium Cardio: Acute CHF, hypertensive emergency, h/o CAD, OK, hyperlipidemia -Presented with systolic blood pressure in the 240s in the ED -S/p Cardene drip -11/22 echocardiogram with mild concentric left trickle hypertrophy, LVEF 60 to 65%, left pleural effusion -Admit BMP 867 -S/p Lasix -hold po lasix d/t hyper Na -Coreg restarted -Blood pressure monitor per protocol -As needed hydralazine for SBP greater than 160 Pulmonary: Acute hypoxic respiratory failure, acute exacerbation of COPD, h/o COPD -CCM consulted, appreciate recommendation -Intubated in the ED on 11/18 with 8.0 ETT at 22 at the lips and extubated on 11/27/2021 -AM vent AC TV 450, Peep 6, Rate 16, 50% fio2 -See RT notes for titration -A.m. ABG and CXR noted -VAP bundle -Pulmicort and Brovana -Continue SPO2 monitoring GI: MO, h/o GERD -Nutrition consult for tube feeding -PPI -BR: Senokot -24 hour -1282 mL : Urinary retention, metabolic alkalosis, hypernatremia -Briggs replaced 11/27/2021 d/t retention -FWF 200 ml q4 -fluid deficit 4L -Strict intake and output -Trend BMP -Intervene as needed Endo: NAD -Avoid hypoglycemia -Accu-Cheks every 6 hours -SSI ID: Bilateral pneumonia, UTI -Evidenced on CXR and UA -COVID-19 PCR negative -Follow culture data -Blood culture, urine culture, tracheal aspirate with no growth to date -Follow WBC and fever curve -s/p azithromycin and Rocephin Heme: Thrombocytosis -Monitor CBC -Transfuse to hemoglobin less than 7 -SCD to bilateral lower extremities while in bed -Lovenox subcu The high probability of a clinically significant, sudden or life threatening deterioration of the [Neuro, Resp, CV] system(s) required my full and direct attention, intervention and personal management. The aggregate critical care time was [60] minutes. This time is in addition to time spent performing reported procedures but includes the following: [x] Data Review and interpretation [x] Patient assessment and monitoring of vital signs [x] Documentation [x] Medication orders and management Disposition Plan: icu Total Time Spent with Patient (Minutes): 60 History Interval history: This is a 81-year-old female with CAD s/p OK, GERD, chronic back pain, HLD, neuropathy, emphysema, CHF, pulmonary HTN, COPD who presents to the emergency department on 11/18 via EMS for altered mental status. According to EMS patient was having difficulty breathing and minimally responsive but in respiratory distress initially. Respiratory status was said to have worsened in route to the hospital and the patient had been given Solu-Medrol magnesium IV however he developed pinpoint pupils and was given Narcan with improvement. Work-up in the emergency department revealed leukocytosis, elevated D-dimer, 8 UTI on UA, CXR showed bilateral pulmonary opacities possibly reflecting edema or atelectasis or pneumonia, CT chest showed evidence of pulmonary hypertension with dense consolidation along the left lower lobe concerning for pneumonia and mild interstitial pulmonary edema. Patient was admitted to the hospital service with acute hypoxic respiratory failure, acute COPD exacerbation and UTI to the ICU with consults to [facility]. Hospital Course to Date: 11/18: Patient was seen and examined in the ED. Patient is intubated and sedated on propofol and versed gtt, RASS -3 to -4. Patient is in hypertensive emergency this am, SBP in the 240s, cardene gtt was initiated, maintain SBP less than 160. Leukocytosis noted, UA significant for UTI. Lactic, procal, and CRP are normal. Patient remains afebrile, continue empiric IV abx for now. Tracheal aspirate ordered, blood culture is pending. Continue to f/u on culture data. 11/19: Patient remains intubated and sedated. Patient did not tolerate sedation vacation this am, became tachycardic, hypertensive, with elevated RR and SPO2 in the low 80s. Sedation back on, continue to wean sedation as tolerated for RASS goal of 0 to -2. Pateimt is off cardene gtt, PRN hydralazine for SPO2 above 160. Low K repleted, repeat labs in the am. 11/20: Remains on the vent and sedated, RASS -3. Plan to wean down on sedation, might need to add Seroquel if patient is not tolerating sedation. Hypernatremia and increased BUN/Cr. this am, patient is on lasix BID. Will discuss with CCM to possibly hold or decreased IV lasix for now, FWF added for high Na. Urinary retention post briggs removal, bladder scan and straight cath per protocol. 11/21: Patient remains on the vent, unable to wean sedation at this time, Seroquel added. Titrate sedation as tolerated for RASS of 0 to -2. Briggs was reinserted overnight for urinary retention, kidney function is stable. 11/22: CCM reduced FiO2. We will start weaning tomorrow. No acute events reported overnight. 11/23: Patient spiked a fever overnight and was cultured this morning. Attempted CPAP trial again today. An ABG obtained post trial which has been given to CCM. Slight hypernatremia noted. 11/24: I updated patient's son today, Kwame Salamanca at [phone]. Lasix stopped today. Patient placed on CPAP trial. She lasted on CPAP all day yesterday and was rested overnight on assist control. Given Kayexalate today due to hyp erkalemia. 11/25: Patient was on SBT today and was not arousable for a while and a CT head was obtained which showed no acute intracranial abnormality. Patient later became severely agitated and was switched back to assist control and placed back on sedation. Family updated today. Restarted home Coreg due to hypotension. 11/26: SBT today, Haldol as needed. Briggs was removed yesterday bladder scan x2 with urine output. Slight hypernatremia persists. Blood pressure better controlled. 11/27/2021: Patient was extubated by [facility] this morning. Patient was severely agitated and given 2 mg Ativan, SBP 200s and given labatalol x1 10mg, NJ tube placed and given PO BP medications. She had stridor and was given racemic epi. We wanted to place BiPAP but after consolation with Dr. Gallegos it was decided to intubate the patient. She was intubated by Deidra, RT and given etomidate, versed and fentanyl. CXR in process. On fentanyl and precedex gtt. 11/28: added buspar to help with agitation, restarted serqoul at lower dose. weaned fi02 today. Hospitalist Physical - Physical exam Narrative exam: - EENT Eyes: Present: PERRL, EOM intact ENT: hearing intact, clear oral mucosa, dentition normal - Neck Neck: Present: normal ROM - Respiratory Respiratory effort: normal Respiratory: bilateral: diminished - Cardiovascular Rhythm: regular Heart Sounds: Present: S1 & S2. Absent: systolic murmur - Extremities Extremities: no ischemia, pulses intact, pulses symmetrical, No edema, normal temperature, normal color Peripheral Pulses: within normal limits - Abdominal General gastrointestinal: soft, non-tender, non-distended, normal bowel sounds - Integumentary Integumentary: Present: warm, dry - Psychiatric Psychiatric: cooperative - Neurologic Neurologic: CNII-XII intact, moves all extremities - Allied Health Allied health notes reviewed: nursing, RT, social work - Constitutional Vitals: Temp Pulse Resp BP Pulse Ox 97.8 F 66 16 103/52 97 11/28/21 12:00 11/28/21 13:03 11/28/21 11:01 11/28/21 13:03 11/28/21 13:03 General appearance: Present: no acute distress, other (Intubated and Sedated) HEART Score - HEART Score Troponin: Troponin T < 0.010 ng/mL (0.00-0.029) 11/18/21 03:25 Results - Labs CBC & Chem 7: 11/28/21 03:38 11/28/21 03:38 Labs: Laboratory Last Values WBC 9.8 K/mm3 (4.5-11.0) 11/28/21 03:38 RBC 5.05 M/mm3 (3.65-5.03) H 11/28/21 03:38 Hgb 13.1 gm/dl (10.1-14.3) 11/28/21 03:38 Hct 43.6 % (30.3-42.9) H 11/28/21 03:38 MCV 86 fl (79-97) 11/28/21 03:38 MCH 26 pg (28-32) L 11/28/21 03:38 MCHC 30 % (30-34) 11/28/21 03:38 RDW 17.8 % (13.2-15.2) H 11/28/21 03:38 Plt Count 400 K/mm3 (140-440) 11/28/21 03:38 Lymph % (Auto) 12.3 % (13.4-35.0) L 11/19/21 07:59 [place] % (Auto) 9.6 % (0.0-7.3) H 11/19/21 07:59 Eos % (Auto) 0.7 % (0.0-4.3) 11/19/21 07:59 Baso % (Auto) 0.5 % (0.0-1.8) 11/19/21 07:59 Lymph # (Auto) 1.6 K/mm3 (1.2-5.4) 11/19/21 07:59 [place] # (Auto) 1.2 K/mm3 (0.0-0.8) H 11/19/21 07:59 Eos # (Auto) 0.1 K/mm3 (0.0-0.4) 11/19/21 07:59 Baso # (Auto) 0.1 K/mm3 (0.0-0.1) 11/19/21 07:59 Add Manual Diff Complete 11/18/21 00:19 Total Counted 100 11/18/21 00:19 Seg Neutrophils % 76.9 % (40.0-70.0) H 11/19/21 07:59 Lymphocytes % (Manual) 4.0 % (13.4-35.0) L 11/18/21 00:19 Monocytes % (Manual) 2.0 % (0.0-7.3) 11/18/21 00:19 Nucleated RBC % Not Reportable 11/18/21 00:19 Seg Neutrophils # 9.7 K/mm3 (1.8-7.7) H 11/19/21 07:59 Seg Neutrophils # Man 14.7 K/mm3 (1.8-7.7) H 11/18/21 00:19 Band Neutrophils # 0.0 K/mm3 11/18/21 00:19 Lymphocytes # (Manual) 0.6 K/mm3 (1.2-5.4) L 11/18/21 00:19 Abs React Lymphs (Man) 0.0 K/mm3 11/18/21 00:19 Monocytes # (Manual) 0.3 K/mm3 (0.0-0.8) 11/18/21 00:19 Eosinophils # (Manual) 0.0 K/mm3 (0.0-0.4) 11/18/21 00:19 Basophils # (Manual) 0.0 K/mm3 (0.0-0.1) 11/18/21 00:19 Metamyelocytes # 0.0 K/mm3 11/18/21 00:19 Myelocytes # 0.0 K/mm3 11/18/21 00:19 Promyelocytes # 0.0 K/mm3 11/18/21 00:19 Blast Cells # 0.0 K/mm3 11/18/21 00:19 WBC Morphology Not Reportable 11/18/21 00:19 Hypersegmented Neuts Not Reportable 11/18/21 00:19 Hyposegmented Neuts Not Reportable 11/18/21 00:19 Hypogranular Neuts Not Reportable 11/18/21 00:19 Smudge Cells Not Reportable 11/18/21 00:19 Toxic Granulation Not Reportable 11/18/21 00:19 Toxic Vacuolation Not Reportable 11/18/21 00:19 Dohle Bodies Not Reportable 11/18/21 00:19 Pelger-Huet Anomaly Not Reportable 11/18/21 00:19 Luis Rods Not Reportable 11/18/21 00:19 Platelet Estimate Consistent w auto 11/18/21 00:19 Clumped Platelets Not Reportable 11/18/21 00:19 Plt Clumps, EDTA Not Reportable 11/18/21 00:19 Large Platelets Not Reportable 11/18/21 00:19 Giant Platelets Not Reportable 11/18/21 00:19 Platelet Satelliting Not Reportable 11/18/21 00:19 Plt Morphology Comment Not Reportable 11/18/21 00:19 RBC Morphology Not Reportable 11/18/21 00:19 Dimorphic RBCs Not Reportable 11/18/21 00:19 Polychromasia Not Reportable 11/18/21 00:19 Hypochromasia Not Reportable 11/18/21 00:19 Poikilocytosis Not Reportable 11/18/21 00:19 Anisocytosis 1+ 11/18/21 00:19 Microcytosis Not Reportable 11/18/21 00:19 Macrocytosis Few 11/18/21 00:19 Spherocytes Not Reportable 11/18/21 00:19 Pappenheimer Bodies Not Reportable 11/18/21 00:19 Sickle Cells Not Reportable 11/18/21 00:19 Target Cells Not Reportable 11/18/21 00:19 Tear Drop Cells Not Reportable 11/18/21 00:19 Ovalocytes Not Reportable 11/18/21 00:19 Helmet Cells Not Reportable 11/18/21 00:19 [place] Bodies Not Reportable 11/18/21 00:19 [place] Rings Not Reportable 11/18/21 00:19 [place] Cells Not Reportable 11/18/21 00:19 Bite Cells Not Reportable 11/18/21 00:19 Crenated Cell Not Reportable 11/18/21 00:19 Elliptocytes Not Reportable 11/18/21 00:19 Acanthocytes (Spur) Not Reportable 11/18/21 00:19 Rouleaux Not Reportable 11/18/21 00:19 Hemoglobin C Crystals Not Reportable 11/18/21 00:19 Schistocytes Not Reportable 11/18/21 00:19 Malaria parasites Not Reportable 11/18/21 00:19 Shahriar Bodies Not Reportable 11/18/21 00:19 Hem Pathologist Commnt No 11/18/21 00:19 PT 12.9 Sec. (12.2-14.9) 11/18/21 00:19 INR 0.88 (0.87-1.13) 11/18/21 00:19 APTT 29.2 Sec. (24.2-36.6) 11/18/21 00:19 D-Dimer 464.80 ng/mlDDU (0-234) H 11/18/21 05:15 ABG pH 7.485 (7.320-7.450) H 11/27/21 14:16 POC ABG pCO2 48.7 mmHg (32.0-48.0) H 11/27/21 14:16 ABG pCO2 64.5 mm Hg 11/26/21 10:28 POC ABG pO2 74.5 mmHg (83-108) L 11/27/21 14:16 ABG pO2 66.5 mm Hg (80.0-90.0) L 11/26/21 10:28 POC ABG HCO3 35.9 11/27/21 14:16 ABG HCO3 39.6 mmol/L (20.0-26.0) H 11/26/21 10:28 ABG O2 Saturation 95.9 (0-100) 11/27/21 14:16 ABG O2 Content 21.3 (0.0-44) 11/26/21 10:28 POC ABG Base Excess 10.7 11/27/21 14:16 ABG Base Excess 11.4 mmol/L (-2.0-3.0) H 11/26/21 10:28 ABG Hemoglobin 15.4 (12.0-17.5) 11/27/21 14:16 ABG Oxyhemoglobin 94.1 (94-98) 11/27/21 14:16 ABG Carboxyhemoglobin 2.3 % (0.0-5.0) 11/26/21 10:28 ABG Methemoglobin 0.3 (0.0-1.5) 11/27/21 14:16 ABG Sodium 145.5 mmol/L (136.0-145.0) H 11/27/21 14:16 ABG Potassium 3.8 mmol/L (3.40-4.50) 11/27/21 14:16 ABG Chloride 100.0 mmol/L (98-107) 11/27/21 14:16 ABG Glucose 153 mg/dL (65-95) H 11/27/21 14:16 Oxyhemoglobin 90.3 % (95.0-99.0) L 11/26/21 10:28 Carboxyhemoglobin 1.6 (0.5-1.5) H 11/27/21 14:16 FiO2 40 % 11/26/21 10:28 FiO2 % 60 11/27/21 14:16 Sodium 150 mmol/L (137-145) H 11/28/21 03:38 Potassium 3.6 mmol/L (3.6-5.0) 11/28/21 03:38 Chloride 103.8 mmol/L (98-107) 11/28/21 03:38 Carbon Dioxide 32 mmol/L (22-30) H 11/28/21 03:38 Anion Gap 18 mmol/L 11/28/21 03:38 BUN 51 mg/dL (7-17) H 11/28/21 03:38 Creatinine 0.8 mg/dL (0.6-1.2) 11/28/21 03:38 Estimated GFR > 60 ml/min 11/28/21 03:38 BUN/Creatinine Ratio 64 % 11/28/21 03:38 Glucose 143 mg/dL (65-100) H 11/28/21 03:38 POC Glucose 138 mg/dL (70-105) H 11/28/21 05:16 Hemoglobin A1c 5.9 % (4-6) 11/19/21 07:59 Lactic Acid 1.40 mmol/L (0.7-2.0) 11/18/21 00:19 Calcium 10.5 mg/dL (8.4-10.2) H 11/28/21 03:38 Phosphorus 3.60 mg/dL (2.5-4.5) 11/28/21 03:38 Magnesium 2.30 mg/dL (1.7-2.3) 11/28/21 03:38 Total Bilirubin 0.40 mg/dL (0.1-1.2) 11/18/21 00:19 Direct Bilirubin < 0.2 mg/dL (0-0.2) 11/18/21 00:19 Indirect Bilirubin 0.2 mg/dL 11/18/21 00:19 AST 22 units/L (5-40) 11/18/21 00:19 ALT 25 units/L (7-56) 11/18/21 00:19 Alkaline Phosphatase 99 units/L (35-129) 11/18/21 00:19 Ammonia 54.0 umol/L (25-60) 11/18/21 00:19 Lactate Dehydrogenase 275 units/L (91-180) H 11/18/21 05:15 Troponin T < 0.010 ng/mL (0.00-0.029) 11/18/21 03:25 C-Reactive Protein 0.70 mg/dL (0.00-1.30) 11/18/21 15:47 NT-Pro-B Natriuret Pep 867.7 pg/mL (0-900) 11/18/21 00:19 Total Protein 7.4 g/dL (6.3-8.2) 11/18/21 00:19 Albumin 4.0 g/dL (3.9-5) 11/18/21 00:19 Albumin/Globulin Ratio 1.2 % 11/18/21 00:19 Triglycerides 185 mg/dL (2-149) H 11/22/21 04:39 Lipase 13 units/L (13-60) 11/18/21 00:19 Procalcitonin 0.12 ng/mL (<0.15) 11/18/21 05:15 Arterial Blood Glucose 153 mg/dL (65-95) H 11/27/21 14:16 Arterial Blood Ionized Calcium 5.4 mg/dL (4.6-5.3) H 11/27/21 14:16 Urine Color Yellow (Yellow) 11/23/21 12:24 Urine Turbidity Clear (Clear) 11/23/21 12:24 Urine pH 7.0 (5.0-7.0) 11/23/21 12:24 Ur Specific Peculiar 1.018 (1.003-1.030) 11/23/21 12:24 Urine Protein <15 mg/dl mg/dL (Negative) 11/23/21 12:24 Urine Glucose (UA) Neg mg/dL (Negative) 11/23/21 12:24 Urine Ketones Neg mg/dL (Negative) 11/23/21 12:24 Urine Blood Neg (Negative) 11/23/21 12:24 Urine Nitrite Neg (Negative) 11/23/21 12:24 Urine Bilirubin Neg (Negative) 11/23/21 12:24 Urine Urobilinogen 4.0 mg/dL (<2.0) 11/23/21 12:24 Ur Leukocyte Esterase Neg (Negative) 11/23/21 12:24 Urine WBC (Auto) 1.0 /HPF (0.0-6.0) 11/23/21 12:24 Urine RBC (Auto) 1.0 /HPF (0.0-6.0) 11/23/21 12:24 U Epithel Cells (Auto) 1.0 /HPF (0-13.0) 11/18/21 01:03 Hyaline Casts 3 /LPF 11/18/21 01:03 Urine Mucus Few /HPF 11/18/21 01:03 Salicylates < 0.3 mg/dL (2.8-20.0) L 11/18/21 00:19 Urine Opiates Screen Negative 11/18/21 01:03 Urine Methadone Screen Negative 11/18/21 01:03 Acetaminophen 5.0 ug/mL (10.0-30.0) L 11/18/21 00:19 Ur Barbiturates Screen Negative 11/18/21 01:03 Ur Phencyclidine Scrn Negative 11/18/21 01:03 Ur Amphetamines Screen Negative 11/18/21 01:03 U Benzodiazepines Scrn Negative 11/18/21 01:03 Urine Cocaine Screen Negative 11/18/21 01:03 U Marijuana (THC) Screen Negative 11/18/21 01:03 Drugs of Abuse Note Disclamer 11/18/21 01:03 Plasma/Serum Alcohol < 0.01 % (0-0.07) 11/18/21 00:19 Coronavirus (PCR) Negative (Negative) 11/18/21 Unknown Microbiology: Microbiology 11/23/21 12:27 Peripheral/Venous Blood Culture - Final NO GROWTH AFTER 5 DAYS 11/23/21 12:27 Peripheral/Venous Blood Culture - Final NO GROWTH AFTER 5 DAYS Briggs/IV: Voiding Method Indwelling Catheter Active Medications - Current Medications Current Medications: Generic Name Dose Route Start Last Admin Trade Name Freq PRN Reason Stop Dose Admin Acetaminophen 650 mg 11/18/21 03:10 11/22/21 19:49 Acetaminophen 650 Mg Rect Supp [place] 650 mg Q6H PRN Administration Pain MILD(1-3)/Fever >100.5/MONTIEL Acetaminophen 650 mg 11/23/21 00:56 11/28/21 05:37 Acetaminophen 325 Mg/10.15 Ml Oral Liqd Unit Dose FEEDTUBE 650 mg Q6H PRN Administration Non Cardiac Pain or Temp>100.5 Amlodipine Besylate 10 mg 11/27/21 10:00 11/28/21 09:42 Amlodipine 10 Mg Tab PO 10 mg DAILY PAULINA Administration Lipase/Protease/Amylase 1 each 11/18/21 16:10 Lipase 10,500/Protease 25,000/Amylase 43,750 (Units) Dr Cross FEEDTUBE PRN PRN For Clogged Feeding Tube Arformoterol Tartrate 15 mcg 11/18/21 20:00 11/28/21 09:12 Arformoterol 15 Mcg/2 Ml Nebu IH 15 mcg Q12HRT PAULINA Administration Aspirin 81 mg 11/27/21 10:00 11/28/21 09:41 Aspirin Ec 81 Mg Tab PO 81 mg QDAY PAULINA Administration Budesonide 0.5 mg 11/18/21 20:00 11/28/21 09:12 Budesonide 0.5 Mg/2 Ml Nebu IH 0.5 mg Q12HRT PAULINA Administration Buspirone HCl 7.5 mg 11/28/21 22:00 Buspirone 5 Mg Tab PO BID PAULINA Carvedilol 12.5 mg 11/25/21 13:00 11/28/21 09:42 Carvedilol 12.5 Mg Tab FEEDTUBE 12.5 mg BID PAULINA Administration Dextrose 50 ml 11/18/21 10:40 Dextrose 50% In Water (25gm) 50 Ml Syringe IV Q30MIN PRN Hypoglycemia Protocol Enoxaparin Sodium 40 mg 11/19/21 22:00 11/27/21 21:24 Enoxaparin 40 Mg/0.4 Ml Inj SUB-Q 40 mg QDAY@2200 PAULINA Administration Protocol Famotidine 20 mg 11/20/21 10:00 11/28/21 09:42 Famotidine 20 Mg Tab FEEDTUBE 20 mg BID PAULINA Administration Fentanyl 50 mcg 11/27/21 11:45 Fentanyl 100 Mcg/2 Ml Inj IV Q10MIN PRN ANALGESIA Haloperidol Lactate 5 mg 11/26/21 15:00 11/27/21 04:31 Haloperidol Lactate 5 Mg/1 Ml Inj IV 5 mg Q8HR PRN Administration Agitation Hydralazine HCl 10 mg 11/18/21 10:44 11/27/21 07:34 Hydralazine 20 Mg/1 Ml Inj IV 10 mg Q4HR PRN Administration Hypertension Hydrophilic Ointment 1 applic 11/18/21 15:26 Lip Therapy Vaseline TP Q2HR PRN Dry Lips Dexmedetomidine HCl 400 mcg/ 104 mls @ 4.243 mls/hr 11/27/21 11:00 11/28/21 11:51 Sodium Chloride IV 0.3 mcg/kg/hr TITRATE PAULINA 6.365 mls/hr Titration Protocol 0.2 MCG/KG/HR Fentanyl Citrate 2,000 mcg in 100 mls @ 4.08 mls/hr 11/27/21 12:00 11/28/21 13:40 Fentanyl Drip Premix IV 3 mcg/kg/hr TITR PAULINA 12.24 mls/hr Administration Protocol 1 MCG/KG/HR Insulin Human Lispro 0 unit 11/18/21 12:00 11/28/21 11:48 Insulin Lispro 100 Unit/Ml SUB-Q Not Given Q6HR [facility] Protocol Magnesium Hydroxide 30 ml 11/18/21 03:10 Magnesium Hydroxide (Mom) Oral Liqd Udc PO Q4H PRN Constipation Multi-Ingred Cream/Lotion/Oil/Oint 1 applic 11/18/21 15:26 Mineral Oil/Petrolatum, White Ophth Oint 3.5 Gm OU Q4HR PRN Dry Eye(s) Ondansetron HCl 4 mg 11/18/21 03:10 Ondansetron 4 Mg/2 Ml Inj IV Q8H PRN Nausea And Vomiting Oxycodone HCl 5 mg 11/27/21 09:50 Oxycodone 5 Mg Tab PO Q6H PRN Pain, Moderate (4-6) Quetiapine Fumarate 100 mg 11/28/21 22:00 Quetiapine 100 Mg Tab PO QHS PAULINA Senna/Docusate Sodium 1 tab 11/18/21 22:00 11/28/21 09:41 Sennosides/Docusate Sodium 8.6/50 Mg Tab FEEDTUBE 1 tab BID PAULINA Administration Simple Syrup 15 ml 11/18/21 16:10 Simple Syrup 15 Ml FEEDTUBE PRN PRN Hypoglycemia Simple Syrup 30 ml 11/18/21 16:10 Simple Syrup 15 Ml FEEDTUBE PRN PRN Hypoglycemia Sodium Bicarbonate 325 mg 11/18/21 16:10 Sodium Bicarbonate 325 Mg Tab FEEDTUBE PRN PRN For Clogged Feeding Tube Nutrition/Malnutrition Assess - Dietary Evaluation Nutrition/Malnutrition Findings: Nutrition Notes Start: 11/18/21 10:45 Freq: Status: Active Protocol: Document 11/24/21 12:07 LEONARDO (Rec: 11/24/21 13:29 LEONARDO [id number]) Nutrition Notes Initial or Follow up Brief Note Current Diet TF-Promote @ 65 ml/hr (since D 11/18). Height 5 ft 8 in Weight 81.6 kg [place] Body Weight (kg) 63.63 BMI 27.3 Weight change and time frame No body weight change reported . Weight Status Overweight Subjective/Other Information RD consult for TF tolerance. TF continues as prescribed. Percent of energy/protein needs met: rescribed TF-Promote @ 65 ml/ hr provides for energy/protein needs (1,570 Kcal/98 g) during LOS; 95% Kcal; 96% AA. #1 Nutrition Diagnosis Inadequate oral intake Diagnosis Progress(for reassessment Continues documentation) Nutrition Intervention Nutrition Support: Continue Promote @ 65 ml/hr. Flush: 60 ml water Q 4 hr. Goal #1 Provide at least 75% of energy /protein needs through Enteral Feeding during LOS. Follow-Up By: 12/01/21 Additional Comments Continue monitoring TF tolerance, and BM. <ELEAZAR SCHMID - Last Filed: 11/30/21 23:49> Assessment and Plan Assessment and plan: I saw and evaluated the patient. Discussed with the nurse practitioner and agree with their findings and plan as documented in this note. Hospitalist Physical - Constitutional Vitals: Temp Pulse Resp BP Pulse Ox 97.6 F 58 L 18 136/59 95 11/30/21 20:00 11/30/21 22:46 11/30/21 22:10 11/30/21 22:46 11/30/21 18:01 HEART Score - HEART Score Troponin: Troponin T < 0.010 ng/mL (0.00-0.029) 11/18/21 03:25 Results - Labs CBC & Chem 7: 11/30/21 04:42 11/30/21 04:42 Labs: Laboratory Last Values WBC 10.4 K/mm3 (4.5-11.0) 11/30/21 04:42 RBC 5.05 M/mm3 (3.65-5.03) H 11/30/21 04:42 Hgb 13.1 gm/dl (10.1-14.3) 11/30/21 04:42 Hct 43.6 % (30.3-42.9) H 11/30/21 04:42 MCV 86 fl (79-97) 11/30/21 04:42 MCH 26 pg (28-32) L 11/30/21 04:42 MCHC 30 % (30-34) 11/30/21 04:42 RDW 17.5 % (13.2-15.2) H 11/30/21 04:42 Plt Count 431 K/mm3 (140-440) 11/30/21 04:42 Lymph % (Auto) 12.3 % (13.4-35.0) L 11/19/21 07:59 [place] % (Auto) 9.6 % (0.0-7.3) H 11/19/21 07:59 Eos % (Auto) 0.7 % (0.0-4.3) 11/19/21 07:59 Baso % (Auto) 0.5 % (0.0-1.8) 11/19/21 07:59 Lymph # (Auto) 1.6 K/mm3 (1.2-5.4) 11/19/21 07:59 [place] # (Auto) 1.2 K/mm3 (0.0-0.8) H 11/19/21 07:59 Eos # (Auto) 0.1 K/mm3 (0.0-0.4) 11/19/21 07:59 Baso # (Auto) 0.1 K/mm3 (0.0-0.1) 11/19/21 07:59 Add Manual Diff Complete 11/18/21 00:19 Total Counted 100 11/18/21 00:19 Seg Neutrophils % 76.9 % (40.0-70.0) H 11/19/21 07:59 Lymphocytes % (Manual) 4.0 % (13.4-35.0) L 11/18/21 00:19 Monocytes % (Manual) 2.0 % (0.0-7.3) 11/18/21 00:19 Nucleated RBC % Not Reportable 11/18/21 00:19 Seg Neutrophils # 9.7 K/mm3 (1.8-7.7) H 11/19/21 07:59 Seg Neutrophils # Man 14.7 K/mm3 (1.8-7.7) H 11/18/21 00:19 Band Neutrophils # 0.0 K/mm3 11/18/21 00:19 Lymphocytes # (Manual) 0.6 K/mm3 (1.2-5.4) L 11/18/21 00:19 Abs React Lymphs (Man) 0.0 K/mm3 11/18/21 00:19 Monocytes # (Manual) 0.3 K/mm3 (0.0-0.8) 11/18/21 00:19 Eosinophils # (Manual) 0.0 K/mm3 (0.0-0.4) 11/18/21 00:19 Basophils # (Manual) 0.0 K/mm3 (0.0-0.1) 11/18/21 00:19 Metamyelocytes # 0.0 K/mm3 11/18/21 00:19 Myelocytes # 0.0 K/mm3 11/18/21 00:19 Promyelocytes # 0.0 K/mm3 11/18/21 00:19 Blast Cells # 0.0 K/mm3 11/18/21 00:19 WBC Morphology Not Reportable 11/18/21 00:19 Hypersegmented Neuts Not Reportable 11/18/21 00:19 Hyposegmented Neuts Not Reportable 11/18/21 00:19 Hypogranular Neuts Not Reportable 11/18/21 00:19 Smudge Cells Not Reportable 11/18/21 00:19 Toxic Granulation Not Reportable 11/18/21 00:19 Toxic Vacuolation Not Reportable 11/18/21 00:19 Dohle Bodies Not Reportable 11/18/21 00:19 Pelger-Huet Anomaly Not Reportable 11/18/21 00:19 Luis Rods Not Reportable 11/18/21 00:19 Platelet Estimate Consistent w auto 11/18/21 00:19 Clumped Platelets Not Reportable 11/18/21 00:19 Plt Clumps, EDTA Not Reportable 11/18/21 00:19 Large Platelets Not Reportable 11/18/21 00:19 Giant Platelets Not Reportable 11/18/21 00:19 Platelet Satelliting Not Reportable 11/18/21 00:19 Plt Morphology Comment Not Reportable 11/18/21 00:19 RBC Morphology Not Reportable 11/18/21 00:19 Dimorphic RBCs Not Reportable 11/18/21 00:19 Polychromasia Not Reportable 11/18/21 00:19 Hypochromasia Not Reportable 11/18/21 00:19 Poikilocytosis Not Reportable 11/18/21 00:19 Anisocytosis 1+ 11/18/21 00:19 Microcytosis Not Reportable 11/18/21 00:19 Macrocytosis Few 11/18/21 00:19 Spherocytes Not Reportable 11/18/21 00:19 Pappenheimer Bodies Not Reportable 11/18/21 00:19 Sickle Cells Not Reportable 11/18/21 00:19 Target Cells Not Reportable 11/18/21 00:19 Tear Drop Cells Not Reportable 11/18/21 00:19 Ovalocytes Not Reportable 11/18/21 00:19 Helmet Cells Not Reportable 11/18/21 00:19 [place] Bodies Not Reportable 11/18/21 00:19 [place] Rings Not Reportable 11/18/21 00:19 [place] Cells Not Reportable 11/18/21 00:19 Bite Cells Not Reportable 11/18/21 00:19 Crenated Cell Not Reportable 11/18/21 00:19 Elliptocytes Not Reportable 11/18/21 00:19 Acanthocytes (Spur) Not Reportable 11/18/21 00:19 Rouleaux Not Reportable 11/18/21 00:19 Hemoglobin C Crystals Not Reportable 11/18/21 00:19 Schistocytes Not Reportable 11/18/21 00:19 Malaria parasites Not Reportable 11/18/21 00:19 Shahriar Bodies Not Reportable 11/18/21 00:19 Hem Pathologist Commnt No 11/18/21 00:19 PT 12.9 Sec. (12.2-14.9) 11/18/21 00:19 INR 0.88 (0.87-1.13) 11/18/21 00:19 APTT 29.2 Sec. (24.2-36.6) 11/18/21 00:19 D-Dimer 464.80 ng/mlDDU (0-234) H 11/18/21 05:15 ABG pH 7.357 (7.320-7.450) 11/30/21 12:04 POC ABG pCO2 60.0 mmHg (32.0-48.0) H 11/30/21 12:04 ABG pCO2 64.5 mm Hg 11/26/21 10:28 POC ABG pO2 68.3 mmHg (83-108) L 11/30/21 12:04 ABG pO2 66.5 mm Hg (80.0-90.0) L 11/26/21 10:28 POC ABG HCO3 32.9 11/30/21 12:04 ABG HCO3 39.6 mmol/L (20.0-26.0) H 11/26/21 10:28 ABG O2 Saturation 92.3 (0-100) 11/30/21 12:04 ABG O2 Content 21.3 (0.0-44) 11/26/21 10:28 POC ABG Base Excess 5.5 11/30/21 12:04 ABG Base Excess 11.4 mmol/L (-2.0-3.0) H 11/26/21 10:28 ABG Hemoglobin 14.4 (12.0-17.5) 11/30/21 12:04 ABG Oxyhemoglobin 90.9 (94-98) L 11/30/21 12:04 ABG Carboxyhemoglobin 2.3 % (0.0-5.0) 11/26/21 10:28 ABG Methemoglobin 0.3 (0.0-1.5) 11/30/21 12:04 ABG Sodium 145.1 mmol/L (136.0-145.0) H 11/30/21 12:04 ABG Potassium 4.0 mmol/L (3.40-4.50) 11/30/21 12:04 ABG Chloride 102.0 mmol/L (98-107) 11/30/21 12:04 ABG Glucose 122 mg/dL (65-95) H 11/30/21 12:04 Oxyhemoglobin 90.3 % (95.0-99.0) L 11/26/21 10:28 Carboxyhemoglobin 1.2 (0.5-1.5) 11/30/21 12:04 FiO2 40 % 11/26/21 10:28 FiO2 % 40 11/30/21 12:04 Sodium 143 mmol/L (137-145) 11/30/21 04:42 Potassium 4.6 mmol/L (3.6-5.0) D 11/30/21 04:42 Chloride 101.8 mmol/L (98-107) 11/30/21 04:42 Carbon Dioxide 28 mmol/L (22-30) 11/30/21 04:42 Anion Gap 18 mmol/L 11/30/21 04:42 BUN 32 mg/dL (7-17) H 11/30/21 04:42 Creatinine 0.5 mg/dL (0.6-1.2) L 11/30/21 04:42 Estimated GFR > 60 ml/min 11/30/21 04:42 BUN/Creatinine Ratio 64 % 11/30/21 04:42 Glucose 178 mg/dL (65-100) H 11/30/21 04:42 POC Glucose 124 mg/dL (70-105) H 11/30/21 17:35 Hemoglobin A1c 5.9 % (4-6) 11/19/21 07:59 Lactic Acid 1.40 mmol/L (0.7-2.0) 11/18/21 00:19 Calcium 9.6 mg/dL (8.4-10.2) 11/30/21 04:42 Phosphorus 3.30 mg/dL (2.5-4.5) 11/29/21 05:51 Magnesium 2.20 mg/dL (1.7-2.3) 11/29/21 05:51 Total Bilirubin 0.40 mg/dL (0.1-1.2) 11/18/21 00:19 Direct Bilirubin < 0.2 mg/dL (0-0.2) 11/18/21 00:19 Indirect Bilirubin 0.2 mg/dL 11/18/21 00:19 AST 22 units/L (5-40) 11/18/21 00:19 ALT 25 units/L (7-56) 11/18/21 00:19 Alkaline Phosphatase 99 units/L (35-129) 11/18/21 00:19 Ammonia 54.0 umol/L (25-60) 11/18/21 00:19 Lactate Dehydrogenase 275 units/L (91-180) H 11/18/21 05:15 Troponin T < 0.010 ng/mL (0.00-0.029) 11/18/21 03:25 C-Reactive Protein 0.70 mg/dL (0.00-1.30) 11/18/21 15:47 NT-Pro-B Natriuret Pep 867.7 pg/mL (0-900) 11/18/21 00:19 Total Protein 7.4 g/dL (6.3-8.2) 11/18/21 00:19 Albumin 4.0 g/dL (3.9-5) 11/18/21 00:19 Albumin/Globulin Ratio 1.2 % 11/18/21 00:19 Triglycerides 185 mg/dL (2-149) H 11/22/21 04:39 Lipase 13 units/L (13-60) 11/18/21 00:19 Procalcitonin 0.12 ng/mL (<0.15) 11/18/21 05:15 Arterial Blood Glucose 122 mg/dL (65-95) H 11/30/21 12:04 Arterial Blood Ionized Calcium 5.2 mg/dL (4.6-5.3) 11/29/21 03:51 Urine Color Yellow (Yellow) 11/23/21 12:24 Urine Turbidity Clear (Clear) 11/23/21 12:24 Urine pH 7.0 (5.0-7.0) 11/23/21 12:24 Ur Specific Peculiar 1.018 (1.003-1.030) 11/23/21 12:24 Urine Protein <15 mg/dl mg/dL (Negative) 11/23/21 12:24 Urine Glucose (UA) Neg mg/dL (Negative) 11/23/21 12:24 Urine Ketones Neg mg/dL (Negative) 11/23/21 12:24 Urine Blood Neg (Negative) 11/23/21 12:24 Urine Nitrite Neg (Negative) 11/23/21 12:24 Urine Bilirubin Neg (Negative) 11/23/21 12:24 Urine Urobilinogen 4.0 mg/dL (<2.0) 11/23/21 12:24 Ur Leukocyte Esterase Neg (Negative) 11/23/21 12:24 Urine WBC (Auto) 1.0 /HPF (0.0-6.0) 11/23/21 12:24 Urine RBC (Auto) 1.0 /HPF (0.0-6.0) 11/23/21 12:24 U Epithel Cells (Auto) 1.0 /HPF (0-13.0) 11/18/21 01:03 Hyaline Casts 3 /LPF 11/18/21 01:03 Urine Mucus Few /HPF 11/18/21 01:03 Salicylates < 0.3 mg/dL (2.8-20.0) L 11/18/21 00:19 Urine Opiates Screen Negative 11/18/21 01:03 Urine Methadone Screen Negative 11/18/21 01:03 Acetaminophen 5.0 ug/mL (10.0-30.0) L 11/18/21 00:19 Ur Barbiturates Screen Negative 11/18/21 01:03 Ur Phencyclidine Scrn Negative 11/18/21 01:03 Ur Amphetamines Screen Negative 11/18/21 01:03 U Benzodiazepines Scrn Negative 11/18/21 01:03 Urine Cocaine Screen Negative 11/18/21 01:03 U Marijuana (THC) Screen Negative 11/18/21 01:03 Drugs of Abuse Note Disclamer 11/18/21 01:03 Plasma/Serum Alcohol < 0.01 % (0-0.07) 11/18/21 00:19 Coronavirus (PCR) Negative (Negative) 11/18/21 Unknown Briggs/IV: Voiding Method Indwelling Catheter Active Medications - Current Medications Current Medications: Generic Name Dose Route Start Last Admin Trade Name Freq PRN Reason Stop Dose Admin Acetaminophen 650 mg 11/18/21 03:10 11/22/21 19:49 Acetaminophen 650 Mg Rect Supp [place] 650 mg Q6H PRN Administration Pain MILD(1-3)/Fever >100.5/MONTIEL Acetaminophen 650 mg 11/23/21 00:56 11/28/21 05:37 Acetaminophen 325 Mg/10.15 Ml Oral Liqd Unit Dose FEEDTUBE 650 mg Q6H PRN Administration Non Cardiac Pain or Temp>100.5 Acetylcysteine 200 mg 11/30/21 20:00 11/30/21 22:07 Acetylcysteine 20% 200 Mg/1 Ml *For Inhalation Use* INHALATION 12/03/21 19:59 Not Given Q6HRT PAULINA Albuterol/Ipratropium 1 ampul 11/30/21 15:00 11/30/21 22:04 Ipratropium/Albuterol Sulfate 3 Ml Ampul.Neb IH 1 ampul Q6HRT PAULIAN Administration Amlodipine Besylate 10 mg 11/27/21 10:00 11/30/21 10:10 Amlodipine 10 Mg Tab PO 10 mg DAILY PAULINA Administration Lipase/Protease/Amylase 1 each 11/29/21 15:50 Lipase 10,500/Protease 25,000/Amylase 43,750 (Units) Dr Cross FEEDTUBE PRN PRN For Clogged Feeding Tube Arformoterol Tartrate 15 mcg 11/18/21 20:00 11/30/21 22:03 Arformoterol 15 Mcg/2 Ml Nebu IH 15 mcg Q12HRT PAULINA Administration Aspirin 81 mg 11/27/21 10:00 11/30/21 10:09 Aspirin Ec 81 Mg Tab PO 81 mg QDAY PAULINA Administration Budesonide 0.5 mg 11/18/21 20:00 11/30/21 22:03 Budesonide 0.5 Mg/2 Ml Nebu IH 0.5 mg Q12HRT PAULINA Administration Buspirone HCl 7.5 mg 11/28/21 22:00 11/30/21 22:47 Buspirone 5 Mg Tab PO 7.5 mg BID PAULINA Administration Carvedilol 12.5 mg 11/25/21 13:00 11/30/21 22:46 Carvedilol 12.5 Mg Tab FEEDTUBE Not Given BID PAULINA Dextrose 50 ml 11/18/21 10:40 Dextrose 50% In Water (25gm) 50 Ml Syringe IV Q30MIN PRN Hypoglycemia Protocol Enoxaparin Sodium 40 mg 11/19/21 22:00 11/30/21 22:48 Enoxaparin 40 Mg/0.4 Ml Inj SUB-Q 40 mg QDAY@2200 PAULINA Administration Protocol Famotidine 20 mg 11/20/21 10:00 11/30/21 22:47 Famotidine 20 Mg Tab FEEDTUBE 20 mg BID PAULINA Administration Fentanyl 50 mcg 11/27/21 11:45 11/30/21 12:09 Fentanyl 100 Mcg/2 Ml Inj IV 50 mcg Q10MIN PRN Administration ANALGESIA Haloperidol Lactate 5 mg 11/26/21 15:00 11/27/21 04:31 Haloperidol Lactate 5 Mg/1 Ml Inj IV 5 mg Q8HR PRN Administration Agitation Hydralazine HCl 10 mg 11/18/21 10:44 11/27/21 07:34 Hydralazine 20 Mg/1 Ml Inj IV 10 mg Q4HR PRN Administration Hypertension Hydrophilic Ointment 1 applic 11/18/21 15:26 Lip Therapy Vaseline TP Q2HR PRN Dry Lips Dexmedetomidine HCl 400 mcg/ 104 mls @ 4.243 mls/hr 11/27/21 11:00 11/30/21 13:00 Sodium Chloride IV 0 mcg/kg/hr TITRATE PAULINA 0 mls/hr Titration Protocol 0.2 MCG/KG/HR Fentanyl Citrate 2,000 mcg in 100 mls @ 4.08 mls/hr 11/27/21 12:00 11/30/21 22:48 Fentanyl Drip Premix IV 3 mcg/kg/hr TITR PAULINA 12.24 mls/hr Administration Protocol 1 MCG/KG/HR Insulin Human Lispro 0 unit 11/18/21 12:00 11/30/21 18:10 Insulin Lispro 100 Unit/Ml SUB-Q Not Given Q6HR [facility] Protocol Magnesium Hydroxide 30 ml 11/18/21 03:10 Magnesium Hydroxide (Mom) Oral Liqd Udc PO Q4H PRN Constipation Methylprednisolone Sodium Succinate 30 mg 11/29/21 12:00 11/30/21 18:08 Methylprednisolone Sod Succinate 40 Mg/1 Ml Inj IV 12/01/21 06:01 30 mg Q6HR [facility] Administration Multi-Ingred Cream/Lotion/Oil/Oint 1 applic 11/18/21 15:26 Mineral Oil/Petrolatum, White Ophth Oint 3.5 Gm OU Q4HR PRN Dry Eye(s) Ondansetron HCl 4 mg 11/18/21 03:10 Ondansetron 4 Mg/2 Ml Inj IV Q8H PRN Nausea And Vomiting Oxycodone HCl 5 mg 11/27/21 09:50 Oxycodone 5 Mg Tab PO Q6H PRN Pain, Moderate (4-6) Quetiapine Fumarate 200 mg 11/30/21 22:00 11/30/21 22:47 Quetiapine 200 Mg Tab PO 200 mg BID PAULINA Administration Scopolamine 1 each 11/30/21 15:00 11/30/21 14:55 Scopolamine Transdermal Patch 72 Hr TD 1 each Q3D [facility] Administration Senna/Docusate Sodium 1 tab 11/18/21 22:00 11/30/21 22:47 Sennosides/Docusate Sodium 8.6/50 Mg Tab FEEDTUBE 1 tab BID PAULINA Administration Simple Syrup 15 ml 11/29/21 15:50 Simple Syrup 15 Ml FEEDTUBE PRN PRN Hypoglycemia Simple Syrup 30 ml 11/29/21 15:50 Simple Syrup 15 Ml FEEDTUBE PRN PRN Hypoglycemia Sodium Bicarbonate 325 mg 11/29/21 15:50 Sodium Bicarbonate 325 Mg Tab FEEDTUBE PRN PRN For Clogged Feeding Tube Nutrition/Malnutrition Assess - Dietary Evaluation Nutrition/Malnutrition Findings: Nutrition Notes Start: 11/18/21 10:45 Freq: Status: Active Protocol: Document 11/29/21 15:42 ROSE (Rec: 11/29/21 15:50 ROSE [id number]) Nutrition Notes Initial or Follow up Reassessment Current Diagnosis COPD,Coronary Artery Disease, Heart Failure,Respiratory Failure,Hyperlipidemia Other Pertinent Diagnosis Toxic metabolic encephalopathy , Bilat pneu, UTI Current Diet TF - Promote at 65ml/hr Labs/Tests BUN 42 Pertinent Medications Reviewed Height 5 ft 8 in Weight 81.6 kg [place] Body Weight (kg) 63.63 BMI 27.3 Weight Status Overweight Subjective/Other Information Pt extubated on 11/27/21, however she was re-intubated on the same day sec to resp distress. TF infusing at 55ml /hr; per RN, will increase to goal rate this evening. Percent of energy/protein needs met: 82% energy 84% pro Burn Absent Trauma Absent #1 Nutrition Diagnosis Inadequate oral intake Diagnosis Progress(for reassessment Continues documentation) Is patient on ventilator? Yes Is Patient Ambulatory and/or Out of Bed No REE-([facility]-confined to bed) 1614.000 Calculation Used for Recommendations [facility][1] Additional Notes Pro needs 1.2-2g/k-163g/ day Fluid needs 1ml/kcal Nutrition Intervention Nutrition Support: Advance TF rate to goal of 65ml/hr and provide 50ml water flush q4h. Kcal 1,560 Protein (gm) 98 Carbohydrates (gm) 203 Fat (gm) 41 Fluid (mL) 1,309 Fiber (gm) 0 Goal #1 TF tolerance Goal #2 TF to meet at least 75% energy and pro needs Follow-Up By: 12/03/21 Additional Comments F/U: TF goal rate and tolerance, vent status
[2021-11-28] MEDS: busPIRone 5 MG TAB PO SCH (22:27)
[2021-11-28] MEDS: QUEtiapine 100 MG TAB PO SCH (22:28)
[2021-11-28] MEDS: ENOXAPARIN 40 MG/0.4 ML INJ SUB-Q SCH (22:29)
[2021-11-29] MEDS: INSULIN LISPRO 100 UNIT/ML SUB-Q SCH ×4 (00:06→18:08)
[2021-11-29] MEDS: FREE WATER PO SCH ×6 (00:17→21:47)
[2021-11-29] MEDS: fentaNYL DRIP Premix 2,000 MCG/100 ML BAG IV SCH ×4 (01:31→23:14)
--- NOTE | 2021-11-29 02:39 | XRay Report ---
CHEST 1 VIEW INDICATION / CLINICAL INFORMATION: follow up respiratory failure. COMPARISON: 11/28/2021 FINDINGS: SUPPORT DEVICES: Stable and satisfactory positioning of ET tube and feeding tube. HEART / MEDIASTINUM: No significant abnormality. LUNGS / PLEURA: Persistence of left basilar pleural-parenchymal disease. Right lung is clear. No pneu mothorax. ADDITIONAL FINDINGS: No significant additional findings. IMPRESSION: 1. Stable appearance of the chest radiograph. Signer Name: Karena Sarmiento MD Signed: 11/29/2021 2:35 AM Workstation Name: [id number]
[2021-11-29 06:04] LABS: Mean Corpuscular HGB Conc 30 % (30-34); Mean Corpuscular Volume 86 fl (79-97); Platelet Count 422 K/mm3 (140-440); Red Blood Count 4.84 M/mm3 (3.65-5.03); Red Cell Distribution Width 17.8 % (13.2-15.2)
[2021-11-29 06:09] LABS: Hematocrit 41.6 % (30.3-42.9); Hemoglobin 12.3 gm/dl (10.1-14.3)
[2021-11-29 06:34] LABS: BUN/Creatinine Ratio 60; Blood Urea Nitrogen 42 mg/dL (7-17); Hemolysis Index 10
--- NOTE | 2021-11-29 08:24 | Progress Note ---
Assessment and Plan Acute exacerbation of chronic obstructive lung disease Acute hypoxemic respiratory failure Acute congestive heart failure exacerbation (? Flash Pulmonary edema) Community-acquired pneumonia Leukocytosis History of coronary artery disease Gastroesophageal reflux disease Arthritis Hyperlipidemia Obesity Elevated D-dimers Acute toxic metabolic encephalopathy Urinary tract infection Likely pulmonary hypertension Hypertensive emergency - begin systemic steroids for tentative laryngeal edema - tentative trial of extubation in am if can go whole day on PSV - continue care as below otherwise; - Daily SAT and SBT assessment as tolerated - continue to wean supplemental oxygen for target O2 sat's > 90% acutely - VAP bundle addressed - continue lung protective strategies - continue bronchodilators with pulmonary hygiene per RT - wean per pulmonary driven protocols otherwise - avoid nephrotoxins, renally dose all medications - continue accuchecks with glycemic control per SSI (While critically ill target blood glucose of 140-180 mg/dL; avoid hypoglycemia) - sedation prn for target RASS 0 to -1 - continue to avoid benzodiazepine's, reduce the possibility of delirium - completed AB's per ID rec's - prn analgesia per CPOT score - Maintenance of sleep-wake cycle, avoid delirium - continue enteral nutritional support at goal rate as tolerated - G.I. & VTE prophylaxis - PT/OT/ROM exercises - continue mobility protocols for pressure ulcer prophylaxis - Monitor hemodynamics closely - continue other care per attending / other consultants - discharge planning ongoing concurrently COVID SPECIFIC INTERVENTIONS: - COVID-19 test negative .... Re-evaluate in am & prn CONDITION: CRITICAL PROGNOSIS: GUARDED CODE STATUS: FULL CODE The high probability of a clinically significant, sudden or life-threatening deterioration of the [respiratory, cardiovascular & neurologic] system(s) required my full and direct attention, intervention and personal management. The aggregate critical care time was [34] minutes without overlap. Time includes spent on; [x] Data Review and interpretation [x] Patient assessment and monitoring of vital signs [x] Documentation [x] Medication orders and management Subjective Date of service: 11/29/21 Principal diagnosis: AE-COPD; AHRF; CHF (? new onset); CAP; CAD; Obesity; HTNs julian Emergency Interval history: Patient is seen today for: AE-COPD; Acute hypoxemic respiratory failure; CHF (? new onset); CAP; CAD; Obesity; HTNsive Emergency Seen and examined at bedside; 24hour events reviewed; nursing and respiratory care staff consulted; no adverse overnight events reported to me; remains on MVS; failed trial of extubation over weekend re: stridor; still intermittently agitated / delirious; No N/V/F/C Objective Vital Signs - 12hr 11/28/21 11/28/21 11/28/21 21:00 21:01 22:00 Temperature Pulse Rate 67 63 69 Pulse Rate [ From Monitor] Respiratory 19 23 23 Rate Blood Pressure 107/50 115/51 104/50 O2 Sat by Pulse 98 97 96 Oximetry 11/28/21 11/28/21 11/28/21 22:01 22:28 23:01 Temperature Pulse Rate 66 67 64 Pulse Rate [ From Monitor] Respiratory 22 21 Rate Blood Pressure 113/47 113/47 105/47 O2 Sat by Pulse 99 93 Oximetry 11/28/21 11/29/21 11/29/21 23:34 00:00 00:01 Temperature 99.1 F Pulse Rate 63 74 62 Pulse Rate [ 74 From Monitor] Respiratory 4 L 24 16 Rate Blood Pressure 128/30 93/46 O2 Sat by Pulse 97 95 99 Oximetry 11/29/21 11/29/21 11/29/21 01:00 02:00 03:00 Temperature Pulse Rate 63 64 64 Pulse Rate [ From Monitor] Respiratory 16 16 16 Rate Blood Pressure 101/48 96/47 97/50 O2 Sat by Pulse 99 Oximetry 11/29/21 11/29/21 11/29/21 03:36 03:44 04:00 Temperature 98.1 F Pulse Rate 64 63 Pulse Rate [ 64 From Monitor] Respiratory 0 L 16 Rate Blood Pressure 93/46 114/24 O2 Sat by Pulse 99 99 Oximetry 11/29/21 11/29/21 05:01 06:01 Temperature Pulse Rate 63 64 Pulse Rate [ From Monitor] Respiratory 16 16 Rate Blood Pressure 102/48 99/48 O2 Sat by Pulse 100 Oximetry Constitutional: appears uncomfortable, other (elderly obese female with mildly increased respiratory effort at rest on MVS) Eyes: non-icteric ENT: oropharynx moist, other (ETT 24 cm EMIL) Neck: supple, no lymphadenopathy, no JVD, other (large circumference) Effort: mildly labored Ascultation: Bilateral: diminished breath sounds, rhonchi Percussion: Bilateral: not dull Cardiovascular: regular rate and rhythm Gastrointestinal: normoactive bowel sounds, soft, non-tender, non-distended (protuberant) Integumentary: normal Extremities: no cyanosis, no edema, pulses normal, no ischemia or petechiae Neurologic: non-focal exam (grossly), pupils equal and round, CN II-XII normal Psychiatric: other (delirious) CBC and BMP: 11/30/21 04:42 11/30/21 04:42 ABG, PT/INR, D-dimer: ABG ABG pH 7.442 (7.320-7.450) 11/29/21 03:51 POC ABG pCO2 54.1 mmHg (32.0-48.0) H 11/29/21 03:51 ABG pCO2 64.5 mm Hg 11/26/21 10:28 POC ABG pO2 70.6 mmHg (83-108) L 11/29/21 03:51 ABG pO2 66.5 mm Hg (80.0-90.0) L 11/26/21 10:28 POC ABG HCO3 36.1 11/29/21 03:51 ABG O2 Saturation 94.4 (0-100) 11/29/21 03:51 PT/INR, D-dimer PT 12.9 Sec. (12.2-14.9) 11/18/21 00:19 INR 0.88 (0.87-1.13) 11/18/21 00:19 D-Dimer 464.80 ng/mlDDU (0-234) H 11/18/21 05:15 Abnormal lab findings: Abnormal Labs 11/18/21 11/18/21 11/18/21 00:01 00:19 00:19 WBC 15.6 H RBC 5.59 H Hgb 14.8 H Hct 49.8 H MCH 27 L MCHC RDW 16.9 H Plt Count Lymph % (Auto) [place] % (Auto) Lymph # (Auto) [place] # (Auto) Seg Neutrophils % Lymphocytes % (Manual) 4.0 L Seg Neutrophils # Seg Neutrophils # Man 14.7 H Lymphocytes # (Manual) 0.6 L D-Dimer ABG pH POC ABG pCO2 POC ABG pO2 ABG pO2 ABG HCO3 ABG O2 Saturation ABG Base Excess ABG Hemoglobin ABG Oxyhemoglobin ABG Sodium ABG Glucose Oxyhemoglobin Carboxyhemoglobin Sodium Potassium Carbon Dioxide BUN Creatinine Glucose 148 H POC Glucose 151 H Calcium Phosphorus Magnesium Lactate Dehydrogenase Triglycerides Arterial Blood Glucose Arterial Blood Ionized Calcium Urine WBC (Auto) Salicylates Acetaminophen 11/18/21 11/18/21 11/18/21 00:19 00:19 00:19 WBC RBC Hgb Hct MCH MCHC RDW Plt Count Lymph % (Auto) [place] % (Auto) Lymph # (Auto) [place] # (Auto) Seg Neutrophils % Lymphocytes % (Manual) Seg Neutrophils # Seg Neutrophils # Man Lymphocytes # (Manual) D-Dimer ABG pH POC ABG pCO2 POC ABG pO2 ABG pO2 ABG HCO3 ABG O2 Saturation ABG Base Excess ABG Hemoglobin ABG Oxyhemoglobin ABG Sodium ABG Glucose Oxyhemoglobin Carboxyhemoglobin Sodium Potassium Carbon Dioxide BUN Creatinine Glucose POC Glucose Calcium Phosphorus Magnesium 2.50 H Lactate Dehydrogenase Triglycerides Arterial Blood Glucose Arterial Blood Ionized Calcium Urine WBC (Auto) Salicylates < 0.3 L Acetaminophen 5.0 L 11/18/21 11/18/21 11/18/21 01:03 02:00 05:15 WBC RBC Hgb Hct MCH MCHC RDW Plt Count Lymph % (Auto) [place] % (Auto) Lymph # (Auto) [place] # (Auto) Seg Neutrophils % Lymphocytes % (Manual) Seg Neutrophils # Seg Neutrophils # Man Lymphocytes # (Manual) D-Dimer 464.80 H ABG pH POC ABG pCO2 POC ABG pO2 ABG pO2 ABG HCO3 35.8 H ABG O2 Saturation ABG Base Excess 7.8 H ABG Hemoglobin ABG Oxyhemoglobin ABG Sodium ABG Glucose Oxyhemoglobin 91.9 L Carboxyhemoglobin Sodium Potassium Carbon Dioxide BUN Creatinine Glucose POC Glucose Calcium Phosphorus Magnesium Lactate Dehydrogenase Triglycerides Arterial Blood Glucose Arterial Blood Ionized Calcium Urine WBC (Auto) 16.0 H Salicylates Acetaminophen 11/18/21 11/18/21 11/18/21 05:15 15:47 15:47 WBC 13.5 H RBC 5.60 H Hgb 14.9 H Hct 49.1 H MCH 27 L MCHC RDW 17.3 H Plt Count Lymph % (Auto) 7.9 L [place] % (Auto) 10.1 H Lymph # (Auto) 1.1 L [place] # (Auto) 1.4 H Seg Neutrophils % 81.7 H Lymphocytes % (Manual) Seg Neutrophils # 11.0 H Seg Neutrophils # Man Lymphocytes # (Manual) D-Dimer ABG pH POC ABG pCO2 POC ABG pO2 ABG pO2 ABG HCO3 ABG O2 Saturation ABG Base Excess ABG Hemoglobin ABG Oxyhemoglobin ABG Sodium ABG Glucose Oxyhemoglobin Carboxyhemoglobin Sodium Potassium Carbon Dioxide BUN Creatinine Glucose 138 H POC Glucose Calcium Phosphorus Magnesium Lactate Dehydrogenase 275 H Triglycerides Arterial Blood Glucose Arterial Blood Ionized Calcium Urine WBC (Auto) Salicylates Acetaminophen 11/18/21 11/18/21 11/19/21 18:45 23:33 04:58 WBC RBC Hgb Hct MCH MCHC RDW Plt Count Lymph % (Auto) [place] % (Auto) Lymph # (Auto) [place] # (Auto) Seg Neutrophils % Lymphocytes % (Manual) Seg Neutrophils # Seg Neutrophils # Man Lymphocytes # (Manual) D-Dimer ABG pH POC ABG pCO2 POC ABG pO2 ABG pO2 ABG HCO3 ABG O2 Saturation ABG Base Excess ABG Hemoglobin ABG Oxyhemoglobin ABG Sodium ABG Glucose Oxyhemoglobin Carboxyhemoglobin Sodium Potassium Carbon Dioxide BUN Creatinine Glucose 130 H POC Glucose 132 H 113 H Calcium Phosphorus Magnesium Lactate Dehydrogenase Triglycerides Arterial Blood Glucose Arterial Blood Ionized Calcium Urine WBC (Auto) Salicylates Acetaminophen 11/19/21 11/19/21 11/19/21 07:59 07:59 08:55 WBC 12.7 H RBC 5.29 H Hgb Hct 45.5 H MCH 26 L MCHC RDW 17.4 H Plt Count Lymph % (Auto) 12.3 L [place] % (Auto) 9.6 H Lymph # (Auto) [place] # (Auto) 1.2 H Seg Neutrophils % 76.9 H Lymphocytes % (Manual) Seg Neutrophils # 9.7 H Seg Neutrophils # Man Lymphocytes # (Manual) D-Dimer ABG pH 7.518 H POC ABG pCO2 POC ABG pO2 ABG pO2 77.6 L ABG HCO3 30.1 H ABG O2 Saturation ABG Base Excess 6.9 H ABG Hemoglobin ABG Oxyhemoglobin ABG Sodium ABG Glucose Oxyhemoglobin Carboxyhemoglobin Sodium Potassium 3.1 L D Carbon Dioxide BUN Creatinine Glucose 115 H POC Glucose Calcium 8.1 L Phosphorus Magnesium Lactate Dehydrogenase Triglycerides Arterial Blood Glucose Arterial Blood Ionized Calcium Urine WBC (Auto) Salicylates Acetaminophen 11/19/21 11/19/21 11/20/21 11:33 16:22 04:20 WBC 13.9 H RBC 5.44 H Hgb Hct 49.3 H MCH 26 L MCHC 29 L RDW 18.3 H Plt Count Lymph % (Auto) [place] % (Auto) Lymph # (Auto) [place] # (Auto) Seg Neutrophils % Lymphocytes % (Manual) Seg Neutrophils # Seg Neutrophils # Man Lymphocytes # (Manual) D-Dimer ABG pH POC ABG pCO2 POC ABG pO2 ABG pO2 ABG HCO3 ABG O2 Saturation ABG Base Excess ABG Hemoglobin ABG Oxyhemoglobin ABG Sodium ABG Glucose Oxyhemoglobin Carboxyhemoglobin Sodium Potassium Carbon Dioxide BUN Creatinine Glucose POC Glucose 119 H 112 H Calcium Phosphorus Magnesium Lactate Dehydrogenase Triglycerides Arterial Blood Glucose Arterial Blood Ionized Calcium Urine WBC (Auto) Salicylates Acetaminophen 11/20/21 11/20/21 11/20/21 04:20 11:07 12:02 WBC RBC Hgb Hct MCH MCHC RDW Plt Count Lymph % (Auto) [place] % (Auto) Lymph # (Auto) [place] # (Auto) Seg Neutrophils % Lymphocytes % (Manual) Seg Neutrophils # Seg Neutrophils # Man Lymphocytes # (Manual) D-Dimer ABG pH 7.251 L POC ABG pCO2 POC ABG pO2 ABG pO2 66.3 L ABG HCO3 30.2 H ABG O2 Saturation 91.8 L ABG Base Excess ABG Hemoglobin ABG Oxyhemoglobin ABG Sodium ABG Glucose Oxyhemoglobin 89.4 L Carboxyhemoglobin Sodium 147 H Potassium Carbon Dioxide BUN 25 H Creatinine Glucose POC Glucose 118 H Calcium Phosphorus 6.40 H Magnesium Lactate Dehydrogenase Triglycerides Arterial Blood Glucose Arterial Blood Ionized Calcium Urine WBC (Auto) Salicylates Acetaminophen 11/20/21 11/21/21 11/21/21 17:31 00:07 04:44 WBC 14.0 H RBC 5.08 H Hgb Hct 44.7 H MCH 26 L MCHC 29 L RDW 17.8 H Plt Count Lymph % (Auto) [place] % (Auto) Lymph # (Auto) [place] # (Auto) Seg Neutrophils % Lymphocytes % (Manual) Seg Neutrophils # Seg Neutrophils # Man Lymphocytes # (Manual) D-Dimer ABG pH POC ABG pCO2 POC ABG pO2 ABG pO2 ABG HCO3 ABG O2 Saturation ABG Base Excess ABG Hemoglobin ABG Oxyhemoglobin ABG Sodium ABG Glucose Oxyhemoglobin Carboxyhemoglobin Sodium Potassium Carbon Dioxide BUN Creatinine Glucose POC Glucose 139 H 147 H Calcium Phosphorus Magnesium Lactate Dehydrogenase Triglycerides Arterial Blood Glucose Arterial Blood Ionized Calcium Urine WBC (Auto) Salicylates Acetaminophen 11/21/21 11/21/21 11/21/21 04:44 06:06 11:45 WBC RBC Hgb Hct MCH MCHC RDW Plt Count Lymph % (Auto) [place] % (Auto) Lymph # (Auto) [place] # (Auto) Seg Neutrophils % Lymphocytes % (Manual) Seg Neutrophils # Seg Neutrophils # Man Lymphocytes # (Manual) D-Dimer ABG pH POC ABG pCO2 POC ABG pO2 ABG pO2 ABG HCO3 ABG O2 Saturation ABG Base Excess ABG Hemoglobin ABG Oxyhemoglobin ABG Sodium ABG Glucose Oxyhemoglobin Carboxyhemoglobin Sodium Potassium Carbon Dioxide BUN 20 H Creatinine Glucose 157 H POC Glucose 158 H 119 H Calcium Phosphorus Magnesium Lactate Dehydrogenase Triglycerides Arterial Blood Glucose Arterial Blood Ionized Calcium Urine WBC (Auto) Salicylates Acetaminophen 11/21/21 11/21/21 11/22/21 11:50 16:54 00:03 WBC RBC Hgb Hct MCH MCHC RDW Plt Count Lymph % (Auto) [place] % (Auto) Lymph # (Auto) [place] # (Auto) Seg Neutrophils % Lymphocytes % (Manual) Seg Neutrophils # Seg Neutrophils # Man Lymphocytes # (Manual) D-Dimer ABG pH POC ABG pCO2 POC ABG pO2 ABG pO2 61.8 L ABG HCO3 35.2 H ABG O2 Saturation 92.8 L ABG Base Excess 8.1 H ABG Hemoglobin ABG Oxyhemoglobin ABG Sodium ABG Glucose Oxyhemoglobin 90.6 L Carboxyhemoglobin Sodium Potassium Carbon Dioxide BUN Creatinine Glucose POC Glucose 149 H 133 H Calcium Phosphorus Magnesium Lactate Dehydrogenase Triglycerides Arterial Blood Glucose Arterial Blood Ionized Calcium Urine WBC (Auto) Salicylates Acetaminophen 11/22/21 11/22/21 11/22/21 04:39 04:39 04:39 WBC 14.1 H RBC Hgb Hct 43.4 H MCH 26 L MCHC RDW 17.9 H Plt Count Lymph % (Auto) [place] % (Auto) Lymph # (Auto) [place] # (Auto) Seg Neutrophils % Lymphocytes % (Manual) Seg Neutrophils # Seg Neutrophils # Man Lymphocytes # (Manual) D-Dimer ABG pH POC ABG pCO2 POC ABG pO2 ABG pO2 ABG HCO3 ABG O2 Saturation ABG Base Excess ABG Hemoglobin ABG Oxyhemoglobin ABG Sodium ABG Glucose Oxyhemoglobin Carboxyhemoglobin Sodium Potassium Carbon Dioxide 33 H BUN Creatinine Glucose 152 H POC Glucose Calcium Phosphorus Magnesium Lactate Dehydrogenase Triglycerides 185 H Arterial Blood Glucose Arterial Blood Ionized Calcium Urine WBC (Auto) Salicylates Acetaminophen 11/22/21 11/22/21 11/22/21 05:02 10:56 11:31 WBC RBC Hgb Hct MCH MCHC RDW Plt Count Lymph % (Auto) [place] % (Auto) Lymph # (Auto) [place] # (Auto) Seg Neutrophils % Lymphocytes % (Manual) Seg Neutrophils # Seg Neutrophils # Man Lymphocytes # (Manual) D-Dimer ABG pH POC ABG pCO2 POC ABG pO2 ABG pO2 55.3 L ABG HCO3 39.4 H ABG O2 Saturation 89.5 L ABG Base Excess 11.7 H ABG Hemoglobin ABG Oxyhemoglobin ABG Sodium ABG Glucose Oxyhemoglobin 87.2 L Carboxyhemoglobin Sodium Potassium Carbon Dioxide BUN Creatinine Glucose POC Glucose 158 H 116 H Calcium Phosphorus Magnesium Lactate Dehydrogenase Triglycerides Arterial Blood Glucose Arterial Blood Ionized Calcium Urine WBC (Auto) Salicylates Acetaminophen 11/22/21 11/22/21 11/23/21 17:29 23:22 04:49 WBC 13.6 H RBC 5.18 H Hgb Hct 45.6 H MCH 25 L MCHC 29 L RDW 17.5 H Plt Count Lymph % (Auto) [place] % (Auto) Lymph # (Auto) [place] # (Auto) Seg Neutrophils % Lymphocytes % (Manual) Seg Neutrophils # Seg Neutrophils # Man Lymphocytes # (Manual) D-Dimer ABG pH POC ABG pCO2 POC ABG pO2 ABG pO2 ABG HCO3 ABG O2 Saturation ABG Base Excess ABG Hemoglobin ABG Oxyhemoglobin ABG Sodium ABG Glucose Oxyhemoglobin Carboxyhemoglobin Sodium Potassium Carbon Dioxide BUN Creatinine Glucose POC Glucose 129 H 171 H Calcium Phosphorus Magnesium Lactate Dehydrogenase Triglycerides Arterial Blood Glucose Arterial Blood Ionized Calcium Urine WBC (Auto) Salicylates Acetaminophen 11/23/21 11/23/21 11/23/21 04:49 11:53 16:22 WBC RBC Hgb Hct MCH MCHC RDW Plt Count Lymph % (Auto) [place] % (Auto) Lymph # (Auto) [place] # (Auto) Seg Neutrophils % Lymphocytes % (Manual) Seg Neutrophils # Seg Neutrophils # Man Lymphocytes # (Manual) D-Dimer ABG pH POC ABG pCO2 POC ABG pO2 ABG pO2 61.8 L ABG HCO3 40.9 H ABG O2 Saturation 93.4 L ABG Base Excess 14.6 H ABG Hemoglobin 6.9 L ABG Oxyhemoglobin ABG Sodium ABG Glucose Oxyhemoglobin 90.2 L Carboxyhemoglobin Sodium 146 H Potassium Carbon Dioxide 36 H BUN 21 H Creatinine Glucose 155 H POC Glucose 166 H Calcium Phosphorus Magnesium Lactate Dehydrogenase Triglycerides Arterial Blood Glucose Arterial Blood Ionized Calcium Urine WBC (Auto) Salicylates Acetaminophen 11/23/21 11/23/21 11/24/21 17:11 23:07 05:03 WBC RBC Hgb Hct MCH MCHC RDW Plt Count Lymph % (Auto) [place] % (Auto) Lymph # (Auto) [place] # (Auto) Seg Neutrophils % Lymphocytes % (Manual) Seg Neutrophils # Seg Neutrophils # Man Lymphocytes # (Manual) D-Dimer ABG pH POC ABG pCO2 POC ABG pO2 ABG pO2 ABG HCO3 ABG O2 Saturation ABG Base Excess ABG Hemoglobin ABG Oxyhemoglobin ABG Sodium ABG Glucose Oxyhemoglobin Carboxyhemoglobin Sodium Potassium Carbon Dioxide BUN Creatinine Glucose POC Glucose 142 H 197 H 183 H Calcium Phosphorus Magnesium Lactate Dehydrogenase Triglycerides Arterial Blood Glucose Arterial Blood Ionized Calcium Urine WBC (Auto) Salicylates Acetaminophen 11/24/21 11/24/21 11/24/21 08:33 08:33 09:00 WBC RBC Hgb Hct 43.6 H MCH 26 L MCHC RDW 18.0 H Plt Count Lymph % (Auto) [place] % (Auto) Lymph # (Auto) [place] # (Auto) Seg Neutrophils % Lymphocytes % (Manual) Seg Neutrophils # Seg Neutrophils # Man Lymphocytes # (Manual) D-Dimer ABG pH POC ABG pCO2 POC ABG pO2 ABG pO2 69.1 L ABG HCO3 40.1 H ABG O2 Saturation 93.2 L ABG Base Excess 11.9 H ABG Hemoglobin ABG Oxyhemoglobin ABG Sodium ABG Glucose Oxyhemoglobin 90.3 L Carboxyhemoglobin Sodium Potassium 5.3 H D Carbon Dioxide 36 H BUN 25 H Creatinine 0.5 L Glucose 185 H POC Glucose Calcium Phosphorus Magnesium Lactate Dehydrogenase Triglycerides Arterial Blood Glucose Arterial Blood Ionized Calcium Urine WBC (Auto) Salicylates Acetaminophen 11/24/21 11/24/21 11/25/21 12:00 18:08 00:50 WBC RBC Hgb Hct MCH MCHC RDW Plt Count Lymph % (Auto) [place] % (Auto) Lymph # (Auto) [place] # (Auto) Seg Neutrophils % Lymphocytes % (Manual) Seg Neutrophils # Seg Neutrophils # Man Lymphocytes # (Manual) D-Dimer ABG pH POC ABG pCO2 POC ABG pO2 ABG pO2 67.3 L ABG HCO3 41.6 H 42.7 H ABG O2 Saturation 94.5 L ABG Base Excess 12.3 H 14.7 H ABG Hemoglobin ABG Oxyhemoglobin ABG Sodium ABG Glucose Oxyhemoglobin 93.1 L 91.6 L Carboxyhemoglobin Sodium Potassium Carbon Dioxide BUN Creatinine Glucose POC Glucose 168 H Calcium Phosphorus Magnesium Lactate Dehydrogenase Triglycerides Arterial Blood Glucose Arterial Blood Ionized Calcium Urine WBC (Auto) Salicylates Acetaminophen 11/25/21 11/25/21 11/25/21 04:57 04:57 14:18 WBC RBC 5.13 H Hgb Hct 45.1 H MCH 26 L MCHC RDW 17.7 H Plt Count Lymph % (Auto) [place] % (Auto) Lymph # (Auto) [place] # (Auto) Seg Neutrophils % Lymphocytes % (Manual) Seg Neutrophils # Seg Neutrophils # Man Lymphocytes # (Manual) D-Dimer ABG pH POC ABG pCO2 POC ABG pO2 ABG pO2 65.1 L ABG HCO3 41.7 H ABG O2 Saturation 94.2 L ABG Base Excess 13.4 H ABG Hemoglobin ABG Oxyhemoglobin ABG Sodium ABG Glucose Oxyhemoglobin 91.3 L Carboxyhemoglobin Sodium 146 H Potassium Carbon Dioxide 38 H BUN 26 H Creatinine 0.5 L Glucose 210 H POC Glucose Calcium Phosphorus Magnesium Lactate Dehydrogenase Triglycerides Arterial Blood Glucose Arterial Blood Ionized Calcium Urine WBC (Auto) Salicylates Acetaminophen 11/25/21 11/26/21 11/26/21 19:22 04:28 04:28 WBC RBC 5.05 H Hgb Hct 44.0 H MCH 26 L MCHC RDW 17.6 H Plt Count Lymph % (Auto) [place] % (Auto) Lymph # (Auto) [place] # (Auto) Seg Neutrophils % Lymphocytes % (Manual) Seg Neutrophils # Seg Neutrophils # Man Lymphocytes # (Manual) D-Dimer ABG pH POC ABG pCO2 POC ABG pO2 ABG pO2 ABG HCO3 ABG O2 Saturation ABG Base Excess ABG Hemoglobin ABG Oxyhemoglobin ABG Sodium ABG Glucose Oxyhemoglobin Carboxyhemoglobin Sodium 146 H Potassium Carbon Dioxide 38 H BUN 30 H Creatinine Glucose 124 H POC Glucose 151 H Calcium 10.5 H Phosphorus Magnesium Lactate Dehydrogenase Triglycerides Arterial Blood Glucose Arterial Blood Ionized Calcium Urine WBC (Auto) Salicylates Acetaminophen 11/26/21 11/26/21 11/27/21 05:50 10:28 08:31 WBC 12.4 H RBC 5.62 H Hgb 14.6 H Hct 48.7 H MCH 26 L MCHC RDW 17.9 H Plt Count 469 H Lymph % (Auto) [place] % (Auto) Lymph # (Auto) [place] # (Auto) Seg Neutrophils % Lymphocytes % (Manual) Seg Neutrophils # Seg Neutrophils # Man Lymphocytes # (Manual) D-Dimer ABG pH POC ABG pCO2 POC ABG pO2 ABG pO2 66.5 L ABG HCO3 39.6 H ABG O2 Saturation 92.9 L ABG Base Excess 11.4 H ABG Hemoglobin 16.8 H ABG Oxyhemoglobin ABG Sodium ABG Glucose Oxyhemoglobin 90.3 L Carboxyhemoglobin Sodium Potassium Carbon Dioxide BUN Creatinine Glucose POC Glucose 121 H Calcium Phosphorus Magnesium Lactate Dehydrogenase Triglycerides Arterial Blood Glucose Arterial Blood Ionized Calcium Urine WBC (Auto) Salicylates Acetaminophen 11/27/21 11/27/21 11/27/21 08:31 09:46 11:49 WBC RBC Hgb Hct MCH MCHC RDW Plt Count Lymph % (Auto) [place] % (Auto) Lymph # (Auto) [place] # (Auto) Seg Neutrophils % Lymphocytes % (Manual) Seg Neutrophils # Seg Neutrophils # Man Lymphocytes # (Manual) D-Dimer ABG pH POC ABG pCO2 POC ABG pO2 ABG pO2 ABG HCO3 ABG O2 Saturation ABG Base Excess ABG Hemoglobin ABG Oxyhemoglobin ABG Sodium ABG Glucose Oxyhemoglobin Carboxyhemoglobin Sodium 150 H Potassium Carbon Dioxide 33 H BUN 31 H Creatinine Glucose 135 H POC Glucose 140 H 153 H Calcium 11.0 H Phosphorus Magnesium Lactate Dehydrogenase Triglycerides Arterial Blood Glucose Arterial Blood Ionized Calcium Urine WBC (Auto) Salicylates Acetaminophen 11/27/21 11/27/21 11/27/21 14:16 17:14 23:25 WBC RBC Hgb Hct MCH MCHC RDW Plt Count Lymph % (Auto) [place] % (Auto) Lymph # (Auto) [place] # (Auto) Seg Neutrophils % Lymphocytes % (Manual) Seg Neutrophils # Seg Neutrophils # Man Lymphocytes # (Manual) D-Dimer ABG pH 7.485 H POC ABG pCO2 48.7 H POC ABG pO2 74.5 L ABG pO2 ABG HCO3 ABG O2 Saturation ABG Base Excess ABG Hemoglobin ABG Oxyhemoglobin ABG Sodium 145.5 H ABG Glucose 153 H Oxyhemoglobin Carboxyhemoglobin 1.6 H Sodium Potassium Carbon Dioxide BUN Creatinine Glucose POC Glucose 142 H 123 H Calcium Phosphorus Magnesium Lactate Dehydrogenase Triglycerides Arterial Blood Glucose 153 H Arterial Blood Ionized Calcium 5.4 H Urine WBC (Auto) Salicylates Acetaminophen 11/28/21 11/28/21 11/28/21 03:38 03:38 05:16 WBC RBC 5.05 H Hgb Hct 43.6 H MCH 26 L MCHC RDW 17.8 H Plt Count Lymph % (Auto) [place] % (Auto) Lymph # (Auto) [place] # (Auto) Seg Neutrophils % Lymphocytes % (Manual) Seg Neutrophils # Seg Neutrophils # Man Lymphocytes # (Manual) D-Dimer ABG pH POC ABG pCO2 POC ABG pO2 ABG pO2 ABG HCO3 ABG O2 Saturation ABG Base Excess ABG Hemoglobin ABG Oxyhemoglobin ABG Sodium ABG Glucose Oxyhemoglobin Carboxyhemoglobin Sodium 150 H Potassium Carbon Dioxide 32 H BUN 51 H Creatinine Glucose 143 H POC Glucose 138 H Calcium 10.5 H Phosphorus Magnesium Lactate Dehydrogenase Triglycerides Arterial Blood Glucose Arterial Blood Ionized Calcium Urine WBC (Auto) Salicylates Acetaminophen 11/28/21 11/28/21 11/29/21 17:01 23:51 03:51 WBC RBC Hgb Hct MCH MCHC RDW Plt Count Lymph % (Auto) [place] % (Auto) Lymph # (Auto) [place] # (Auto) Seg Neutrophils % Lymphocytes % (Manual) Seg Neutrophils # Seg Neutrophils # Man Lymphocytes # (Manual) D-Dimer ABG pH POC ABG pCO2 54.1 H POC ABG pO2 70.6 L ABG pO2 ABG HCO3 ABG O2 Saturation ABG Base Excess ABG Hemoglobin ABG Oxyhemoglobin 93.1 L ABG Sodium ABG Glucose 144 H Oxyhemoglobin Carboxyhemoglobin Sodium Potassium Carbon Dioxide BUN Creatinine Glucose POC Glucose 145 H 130 H Calcium Phosphorus Magnesium Lactate Dehydrogenase Triglycerides Arterial Blood Glucose 144 H Arterial Blood Ionized Calcium Urine WBC (Auto) Salicylates Acetaminophen 11/29/21 11/29/21 05:51 05:51 WBC 11.1 H RBC Hgb Hct MCH 26 L MCHC RDW 17.8 H Plt Count Lymph % (Auto) [place] % (Auto) Lymph # (Auto) [place] # (Auto) Seg Neutrophils % Lymphocytes % (Manual) Seg Neutrophils # Seg Neutrophils # Man Lymphocytes # (Manual) D-Dimer ABG pH POC ABG pCO2 POC ABG pO2 ABG pO2 ABG HCO3 ABG O2 Saturation ABG Base Excess ABG Hemoglobin ABG Oxyhemoglobin ABG Sodium ABG Glucose Oxyhemoglobin Carboxyhemoglobin Sodium Potassium Carbon Dioxide 31 H BUN 42 H Creatinine Glucose 133 H POC Glucose Calcium Phosphorus Magnesium Lactate Dehydrogenase Triglycerides Arterial Blood Glucose Arterial Blood Ionized Calcium Urine WBC (Auto) Salicylates Acetaminophen Chest x-ray: image reviewed (no new process) Allied health notes reviewed: nursing
[2021-11-29] MEDS: busPIRone 5 MG TAB PO SCH ×2 (09:33→21:45)
[2021-11-29] MEDS: SENNOSIDES/DOCUSATE SODIUM 8.6/50 MG TAB FEEDTUBE SCH ×2 (09:33→21:45)
[2021-11-29] MEDS: FAMOTIDINE 20 MG TAB FEEDTUBE SCH ×2 (09:33→21:45)
[2021-11-29] MEDS: ASPIRIN EC 81 MG TAB PO SCH (09:33)
[2021-11-29] MEDS: amLODIPine 10 MG TAB PO SCH (09:34)
[2021-11-29] MEDS: carvediloL 12.5 MG TAB FEEDTUBE SCH ×2 (09:34→21:45)
[2021-11-29] MEDS: ARFORMOTEROL 15 MCG/2 ML NEBU IH SCH ×2 (09:42→23:05)
[2021-11-29] MEDS: BUDESONIDE 0.5 MG/2 ML NEBU IH SCH ×2 (09:42→23:05)
[2021-11-29] MEDS ORDERED: methylPREDNISolone Sod Succinate 40 MG/1 ML INJ IV SCH (12:00)
[2021-11-29] MEDS: methylPREDNISolone Sod Succinate 40 MG/1 ML INJ IV SCH ×2 (12:52→18:07)
--- NOTE | 2021-11-29 14:02 | Progress Note ---
<NEAL RATLIFF - Last Filed: 11/29/21 23:37> Assessment and Plan Assessment and plan: This is a 81-year-old AA female with past medical history of CAD, CHF, pulmonary hypertension, COPD, and tobacco abuse admitted for acute hypoxemic respiratory failure 2/2 of bilateral pneumonia vs COPD exacerbation/pulmonary edema req uiring intubation and ventilatory support. Hospital Course to Date: 11/18: Patient was seen and examined in the ED. Patient is intubated and sedated on propofol and versed gtt, RASS -3 to -4. Patient is in hypertensive emergency this am, SBP in the 240s, cardene gtt was initiated, maintain SBP less than 160. Leukocytosis noted, UA significant for UTI. Lactic, procal, and CRP are normal. Patient remains afebrile, continue empiric IV abx for now. Tracheal aspirate ordered, blood culture is pending. Continue to f/u on culture data. 11/19: Patient remains intubated and sedated. Patient did not tolerate sedation vacation this am, became tachycardic, hypertensive, with elevated RR and SPO2 in the low 80s. Sedation back on, continue to wean sedation as tolerated for RASS goal of 0 to -2. Pateimt is off cardene gtt, PRN hydralazine for SPO2 above 160. Low K repleted, repeat labs in the am. 11/20: Remains on the vent and sedated, RASS -3. Plan to wean down on sedation, might need to add Seroquel if patient is not tolerating sedation. Hypernatremia and increased BUN/Cr. this am, patient is on lasix BID. Will discuss with [facility] to possibly hold or decreased IV lasix for now, FWF added for high Na. Urinary retention post briggs removal, bladder scan and straight cath per protocol. 11/21: Patient remains on the vent, unable to wean sedation at this time, Seroquel added. Titrate sedation as tolerated for RASS of 0 to -2. Briggs was reinserted overnight for urinary retention, kidney function is stable. 11/22: [facility] reduced FiO2. We will start weaning tomorrow. No acute events reported overnight. 11/23: Patient spiked a fever overnight and was cultured this morning. Attempted CPAP trial again today. An ABG obtained post trial which has been given to [facility]. Slight hypernatremia noted. 11/24: I updated patient's son today, Kwame Salamanca at [phone]. Lasix stopped today. Patient placed on CPAP trial. She lasted on CPAP all day yesterday and was rested overnight on assist control. Given Kayexalate today due to hyperkalemia. 11/25: Patient was on SBT today and was not arousable for a while and a CT head was obtained which showed no acute intracranial abnormality. Patient later became severely agitated and was switched back to assist control and placed back on sedation. Family updated today. Restarted home Coreg due to hypotension. 11/26: SBT today, Haldol as needed. Briggs was removed yesterday bladder scan x2 with urine output. Slight hypernatremia persists. Blood pressure better controlled. 11/27/2021: Patient was extubated by [facility] this morning. Patient was severely agitated and given 2 mg Ativan, SBP 200s and given labatalol x1 10mg, NJ tube placed and given PO BP medications. She had stridor and was given racemic epi. We wanted to place BiPAP but after consolation with Dr. Gallegos it was decided to intubate the patient. She was intubated by Deidra, RT and given etomidate, versed and fentanyl. CXR in process. On fentanyl and precedex gtt. 11/28: added buspar to help with agitation, restarted serqoul at lower dose. weaned fi02 today. 11/29: Remains on the vent and on sedation, fent and precedx gtts. D/w [facility] plan for possible SAT and SBT in the am, hold TF at 6am on 11/30 for possible SAT/SBT. Assessment and Plan #Neuro: Agitation - Patient intubated and sedated on Fentanyl and precedex gtt, RASS -1 - On Seroquel and Buspar - Continue sedation for RASS goal of 0 to -1 - PRN Haldol for agitation - Close monitoring of QTc - Daily SAT and SBT per CCM - Avoid benzodiazepine to reduce the possibility of delirium - PRN analgesia for CPOT greater than 3 - Maintenance of sleep-wake cycle #CHF and Pulmonary HTN #Hypertensive Emergency-resolved #H/o CAD - Patient SBP as in the 240s in the ED - S/p cardene gtt - 12/2020 Echo with a EF of 60- 65% - IV Lasix D/naren - Continue home antihypertensives - Continue blood pressure monitor per protocol - PRN hydralazine for SBP greater than 160 #Acute Hypoxemic Respiratory Failure #COPD Exacerbation #Bilateral Pneumonia #Pulmonary Edema - Chest x-ray shows bilateral pulmonary opacities possibly representing edema/atelectasis or pneumonia. - CT of the chest shows evidence of pulmonary hypertension with dense consolidation along the left lower lobe that is concerning for pneumonia. Mild interstitial pulmonary edema. - Patient intubated in the ED on 11/18, extubated on 11/27 - Patient was reintubated on 11/27 due to stridor - Vent Setting this am: PRVC-50%,6,16,450 - AM ABG noted - CCM consulted, appreciate recommendations - IV steroids added per CCMX3 days - VAP bundle addressed - Aspiration precaution HOB above 30 - Daily SBT and SAT trials as tolerated - Daily ABG and CXR - Continue SPO2 monitoring for SPO2 goal above 92% #GI:H/o GERD - Continue enteral nutrition - Nutrition on consult - Continue PPI- Pepcid - Continue BR #Urinary Retention #Hyperkalemia-improved #Hypokalemia-resolved - Briggs reinserted twice due to urinary retention - LAsix D/naren - Strict intake and output - Monitor and replace electrolytes as needed - Trend BMP - Avoid nephrotoxic medications; Renally dose medications #Elevated D-Dimer - BLE DVT negative - Per CCM no indication for CTA at this time - Lovenox added for DVT proph. - SCDs to bilateral lower extremities while in bed #ID:Bilateral Pneumonia #Urinary tract Infection #Leukocytosis - Imagings shown bilateral opacities representing pulmonary edema vs pneumonia - WBCs as high as 15.6, downtrending - CRP and procal is normal - COVID swab neg - Urinalysis was significant for UTI. - B. cultures negative - Sputum culture +parisa Albicans - Patient afebrile - Patient completed IV antibiotic course - Daily CBC monitor - Consider ID consult if febrile or/and if leukocytosis reocccur #Endo:Glycemic Control - Continue BG check Q6hrs while on TF - SSI Q6hrs - Avoid Hypoglycemia The high probability of a clinically significant, sudden or life threatening deterioration of the [Neuro, Resp,] system(s) required my full and direct attention, intervention and personal management. The aggregate critical care time was [60] minutes. This time is in addition to time spent performing reported procedures but includes the following: [x] Data Review and interpretation [x] Patient assessment and monitoring of vital signs [x] Documentation [x] Medication orders and management Disposition Plan: ICU Total Time Spent with Patient (Minutes): 60 History Interval history: Patient seen and examined at the bedside. Patient remains intubated and sedated, on Fentanyl and precedex gtts RASS -1. Arousable by voice, however did not fo llow commands this am. Per RN patient follows commands at this time, still with periods of agitation. CONY overnight Hospitalist Physical - Constitutional Vitals: Temp Pulse Resp BP Pulse Ox 97.9 F 62 16 107/47 98 11/29/21 12:00 11/29/21 11:01 11/29/21 11:01 11/29/21 11:01 11/29/21 11:01 General appearance: Present: no acute distress, other (Intubated and Sedated) - EENT Eyes: Present: PERRL ENT: hearing intact - Neck Neck: Present: normal ROM - Respiratory Respiratory effort: normal Respiratory: bilateral: diminished - Cardiovascular Rhythm: regular Heart Sounds: Present: S1 & S2 - Extremities Extremities: no ischemia, pulses intact, pulses symmetrical Extremity abnormal: edema - Peripheral Assessment Generalized Edema Type: Non-pitting Edema Degree: 1+ Capillary Refill: < 3 seconds Skin Temperature: Warm Peripheral Pulses: within normal limits - Abdominal General gastrointestinal: soft, non-tender, normal bowel sounds - Integumentary Integumentary: Present: warm, dry - Psychiatric Psychiatric: other (Intubated and Sedated) - Neurologic Neurologic: other (Intubated and Sedated) - Allied Health Allied health notes reviewed: nursing HEART Score - HEART Score Troponin: Troponin T < 0.010 ng/mL (0.00-0.029) 11/18/21 03:25 Results - Labs CBC & Chem 7: 11/29/21 05:51 11/29/21 05:51 Labs: Laboratory Last Values WBC 11.1 K/mm3 (4.5-11.0) H 11/29/21 05:51 RBC 4.84 M/mm3 (3.65-5.03) 11/29/21 05:51 Hgb 12.3 gm/dl (10.1-14.3) 11/29/21 05:51 Hct 41.6 % (30.3-42.9) 11/29/21 05:51 MCV 86 fl (79-97) 11/29/21 05:51 MCH 26 pg (28-32) L 11/29/21 05:51 MCHC 30 % (30-34) 11/29/21 05:51 RDW 17.8 % (13.2-15.2) H 11/29/21 05:51 Plt Count 422 K/mm3 (140-440) 11/29/21 05:51 Lymph % (Auto) 12.3 % (13.4-35.0) L 11/19/21 07:59 Turner % (Auto) 9.6 % (0.0-7.3) H 11/19/21 07:59 Eos % (Auto) 0.7 % (0.0-4.3) 11/19/21 07:59 Baso % (Auto) 0.5 % (0.0-1.8) 11/19/21 07:59 Lymph # (Auto) 1.6 K/mm3 (1.2-5.4) 11/19/21 07:59 Turner # (Auto) 1.2 K/mm3 (0.0-0.8) H 11/19/21 07:59 Eos # (Auto) 0.1 K/mm3 (0.0-0.4) 11/19/21 07:59 Baso # (Auto) 0.1 K/mm3 (0.0-0.1) 11/19/21 07:59 Add Manual Diff Complete 11/18/21 00:19 Total Counted 100 11/18/21 00:19 Seg Neutrophils % 76.9 % (40.0-70.0) H 11/19/21 07:59 Lymphocytes % (Manual) 4.0 % (13.4-35.0) L 11/18/21 00:19 Monocytes % (Manual) 2.0 % (0.0-7.3) 11/18/21 00:19 Nucleated RBC % Not Reportable 11/18/21 00:19 Seg Neutrophils # 9.7 K/mm3 (1.8-7.7) H 11/19/21 07:59 Seg Neutrophils # Man 14.7 K/mm3 (1.8-7.7) H 11/18/21 00:19 Band Neutrophils # 0.0 K/mm3 11/18/21 00:19 Lymphocytes # (Manual) 0.6 K/mm3 (1.2-5.4) L 11/18/21 00:19 Abs React Lymphs (Man) 0.0 K/mm3 11/18/21 00:19 Monocytes # (Manual) 0.3 K/mm3 (0.0-0.8) 11/18/21 00:19 Eosinophils # (Manual) 0.0 K/mm3 (0.0-0.4) 11/18/21 00:19 Basophils # (Manual) 0.0 K/mm3 (0.0-0.1) 11/18/21 00:19 Metamyelocytes # 0.0 K/mm3 11/18/21 00:19 Myelocytes # 0.0 K/mm3 11/18/21 00:19 Promyelocytes # 0.0 K/mm3 11/18/21 00:19 Blast Cells # 0.0 K/mm3 11/18/21 00:19 WBC Morphology Not Reportable 11/18/21 00:19 Hypersegmented Neuts Not Reportable 11/18/21 00:19 Hyposegmented Neuts Not Reportable 11/18/21 00:19 Hypogranular Neuts Not Reportable 11/18/21 00:19 Smudge Cells Not Reportable 11/18/21 00:19 Toxic Granulation Not Reportable 11/18/21 00:19 Toxic Vacuolation Not Reportable 11/18/21 00:19 Dohle Bodies Not Reportable 11/18/21 00:19 Pelger-Huet Anomaly Not Reportable 11/18/21 00:19 Luis Rods Not Reportable 11/18/21 00:19 Platelet Estimate Consistent w auto 11/18/21 00:19 Clumped Platelets Not Reportable 11/18/21 00:19 Plt Clumps, EDTA Not Reportable 11/18/21 00:19 Large Platelets Not Reportable 11/18/21 00:19 Giant Platelets Not Reportable 11/18/21 00:19 Platelet Satelliting Not Reportable 11/18/21 00:19 Plt Morphology Comment Not Reportable 11/18/21 00:19 RBC Morphology Not Reportable 11/18/21 00:19 Dimorphic RBCs Not Reportable 11/18/21 00:19 Polychromasia Not Reportable 11/18/21 00:19 Hypochromasia Not Reportable 11/18/21 00:19 Poikilocytosis Not Reportable 11/18/21 00:19 Anisocytosis 1+ 11/18/21 00:19 Microcytosis Not Reportable 11/18/21 00:19 Macrocytosis Few 11/18/21 00:19 Spherocytes Not Reportable 11/18/21 00:19 Pappenheimer Bodies Not Reportable 11/18/21 00:19 Sickle Cells Not Reportable 11/18/21 00:19 Target Cells Not Reportable 11/18/21 00:19 Tear Drop Cells Not Reportable 11/18/21 00:19 Ovalocytes Not Reportable 11/18/21 00:19 Helmet Cells Not Reportable 11/18/21 00:19 [place] Bodies Not Reportable 11/18/21 00:19 Bowman Rings Not Reportable 11/18/21 00:19 [place] Cells Not Reportable 11/18/21 00:19 Bite Cells Not Reportable 11/18/21 00:19 Crenated Cell Not Reportable 11/18/21 00:19 Elliptocytes Not Reportable 11/18/21 00:19 Acanthocytes (Spur) Not Reportable 11/18/21 00:19 Rouleaux Not Reportable 11/18/21 00:19 Hemoglobin C Crystals Not Reportable 11/18/21 00:19 Schistocytes Not Reportable 11/18/21 00:19 Malaria parasites Not Reportable 11/18/21 00:19 Shahriar Bodies Not Reportable 11/18/21 00:19 Hem Pathologist Commnt No 11/18/21 00:19 PT 12.9 Sec. (12.2-14.9) 11/18/21 00:19 INR 0.88 (0.87-1.13) 11/18/21 00:19 APTT 29.2 Sec. (24.2-36.6) 11/18/21 00:19 D-Dimer 464.80 ng/mlDDU (0-234) H 11/18/21 05:15 ABG pH 7.442 (7.320-7.450) 11/29/21 03:51 POC ABG pCO2 54.1 mmHg (32.0-48.0) H 11/29/21 03:51 ABG pCO2 64.5 mm Hg 11/26/21 10:28 POC ABG pO2 70.6 mmHg (83-108) L 11/29/21 03:51 ABG pO2 66.5 mm Hg (80.0-90.0) L 11/26/21 10:28 POC ABG HCO3 36.1 11/29/21 03:51 ABG HCO3 39.6 mmol/L (20.0-26.0) H 11/26/21 10:28 ABG O2 Saturation 94.4 (0-100) 11/29/21 03:51 ABG O2 Content 21.3 (0.0-44) 11/26/21 10:28 POC ABG Base Excess 10.1 11/29/21 03:51 ABG Base Excess 11.4 mmol/L (-2.0-3.0) H 11/26/21 10:28 ABG Hemoglobin 13.5 (12.0-17.5) 11/29/21 03:51 ABG Oxyhemoglobin 93.1 (94-98) L 11/29/21 03:51 ABG Carboxyhemoglobin 2.3 % (0.0-5.0) 11/26/21 10:28 ABG Methemoglobin 0.3 (0.0-1.5) 11/29/21 03:51 ABG Sodium 142.0 mmol/L (136.0-145.0) 11/29/21 03:51 ABG Potassium 3.6 mmol/L (3.40-4.50) 11/29/21 03:51 ABG Chloride 99.0 mmol/L (98-107) 11/29/21 03:51 ABG Glucose 144 mg/dL (65-95) H 11/29/21 03:51 Oxyhemoglobin 90.3 % (95.0-99.0) L 11/26/21 10:28 Carboxyhemoglobin 1.1 (0.5-1.5) 11/29/21 03:51 FiO2 40 % 11/26/21 10:28 FiO2 % 40.0 11/29/21 03:51 Sodium 142 mmol/L (137-145) 11/29/21 05:51 Potassium 3.8 mmol/L (3.6-5.0) 11/29/21 05:51 Chloride 98.3 mmol/L (98-107) 11/29/21 05:51 Carbon Dioxide 31 mmol/L (22-30) H 11/29/21 05:51 Anion Gap 17 mmol/L 11/29/21 05:51 BUN 42 mg/dL (7-17) H 11/29/21 05:51 Creatinine 0.7 mg/dL (0.6-1.2) 11/29/21 05:51 Estimated GFR > 60 ml/min 11/29/21 05:51 BUN/Creatinine Ratio 60 % 11/29/21 05:51 Glucose 133 mg/dL (65-100) H 11/29/21 05:51 POC Glucose 157 mg/dL (70-105) H 11/29/21 12:09 Hemoglobin A1c 5.9 % (4-6) 11/19/21 07:59 Lactic Acid 1.40 mmol/L (0.7-2.0) 11/18/21 00:19 Calcium 10.0 mg/dL (8.4-10.2) 11/29/21 05:51 Phosphorus 3.30 mg/dL (2.5-4.5) 11/29/21 05:51 Magnesium 2.20 mg/dL (1.7-2.3) 11/29/21 05:51 Total Bilirubin 0.40 mg/dL (0.1-1.2) 11/18/21 00:19 Direct Bilirubin < 0.2 mg/dL (0-0.2) 11/18/21 00:19 Indirect Bilirubin 0.2 mg/dL 11/18/21 00:19 AST 22 units/L (5-40) 11/18/21 00:19 ALT 25 units/L (7-56) 11/18/21 00:19 Alkaline Phosphatase 99 units/L (35-129) 11/18/21 00:19 Ammonia 54.0 umol/L (25-60) 11/18/21 00:19 Lactate Dehydrogenase 275 units/L (91-180) H 11/18/21 05:15 Troponin T < 0.010 ng/mL (0.00-0.029) 11/18/21 03:25 C-Reactive Protein 0.70 mg/dL (0.00-1.30) 11/18/21 15:47 NT-Pro-B Natriuret Pep 867.7 pg/mL (0-900) 11/18/21 00:19 Total Protein 7.4 g/dL (6.3-8.2) 11/18/21 00:19 Albumin 4.0 g/dL (3.9-5) 11/18/21 00:19 Albumin/Globulin Ratio 1.2 % 11/18/21 00:19 Triglycerides 185 mg/dL (2-149) H 11/22/21 04:39 Lipase 13 units/L (13-60) 11/18/21 00:19 Procalcitonin 0.12 ng/mL (<0.15) 11/18/21 05:15 Arterial Blood Glucose 144 mg/dL (65-95) H 11/29/21 03:51 Arterial Blood Ionized Calcium 5.2 mg/dL (4.6-5.3) 11/29/21 03:51 Urine Color Yellow (Yellow) 11/23/21 12:24 Urine Turbidity Clear (Clear) 11/23/21 12:24 Urine pH 7.0 (5.0-7.0) 11/23/21 12:24 Ur Specific [place] 1.018 (1.003-1.030) 11/23/21 12:24 Urine Protein <15 mg/dl mg/dL (Negative) 11/23/21 12:24 Urine Glucose (UA) Neg mg/dL (Negative) 11/23/21 12:24 Urine Ketones Neg mg/dL (Negative) 11/23/21 12:24 Urine Blood Neg (Negative) 11/23/21 12:24 Urine Nitrite Neg (Negative) 11/23/21 12:24 Urine Bilirubin Neg (Negative) 11/23/21 12:24 Urine Urobilinogen 4.0 mg/dL (<2.0) 11/23/21 12:24 Ur Leukocyte Esterase Neg (Negative) 11/23/21 12:24 Urine WBC (Auto) 1.0 /HPF (0.0-6.0) 11/23/21 12:24 Urine RBC (Auto) 1.0 /HPF (0.0-6.0) 11/23/21 12:24 U Epithel Cells (Auto) 1.0 /HPF (0-13.0) 11/18/21 01:03 Hyaline Casts 3 /LPF 11/18/21 01:03 Urine Mucus Few /HPF 11/18/21 01:03 Salicylates < 0.3 mg/dL (2.8-20.0) L 11/18/21 00:19 Urine Opiates Screen Negative 11/18/21 01:03 Urine Methadone Screen Negative 11/18/21 01:03 Acetaminophen 5.0 ug/mL (10.0-30.0) L 11/18/21 00:19 Ur Barbiturates Screen Negative 11/18/21 01:03 Ur Phencyclidine Scrn Negative 11/18/21 01:03 Ur Amphetamines Screen Negative 11/18/21 01:03 U Benzodiazepines Scrn Negative 11/18/21 01:03 Urine Cocaine Screen Negative 11/18/21 01:03 U Marijuana (THC) Screen Negative 11/18/21 01:03 Drugs of Abuse Note Disclamer 11/18/21 01:03 Plasma/Serum Alcohol < 0.01 % (0-0.07) 11/18/21 00:19 Coronavirus (PCR) Negative (Negative) 11/18/21 Unknown Microbiology: Microbiology 11/23/21 12:27 Peripheral/Venous Blood Culture - Final NO GROWTH AFTER 5 DAYS 11/23/21 12:27 Peripheral/Venous Blood Culture - Final NO GROWTH AFTER 5 DAYS Briggs/IV: Voiding Method Indwelling Catheter Active Medications - Current Medications Current Medications: Generic Name Dose Route Start Last Admin Trade Name Freq PRN Reason Stop Dose Admin Acetaminophen 650 mg 11/18/21 03:10 11/22/21 19:49 Acetaminophen 650 Mg Rect Supp PA 650 mg Q6H PRN Administration Pain MILD(1-3)/Fever >100.5/MONTIEL Acetaminophen 650 mg 11/23/21 00:56 11/28/21 05:37 Acetaminophen 325 Mg/10.15 Ml Oral Liqd Unit Dose FEEDTUBE 650 mg Q6H PRN Administration Non Cardiac Pain or Temp>100.5 Amlodipine Besylate 10 mg 11/27/21 10:00 11/29/21 09:34 Amlodipine 10 Mg Tab PO 10 mg DAILY PAULINA Administration Lipase/Protease/Amylase 1 each 11/18/21 16:10 Lipase 10,500/Protease 25,000/Amylase 43,750 (Units) Dr Cross FEEDTUBE PRN PRN For Clogged Feeding Tube Arformoterol Tartrate 15 mcg 11/18/21 20:00 11/29/21 09:42 Arformoterol 15 Mcg/2 Ml Nebu IH 15 mcg Q12HRT PAULINA Administration Aspirin 81 mg 11/27/21 10:00 11/29/21 09:33 Aspirin Ec 81 Mg Tab PO 81 mg QDAY PAULINA Administration Budesonide 0.5 mg 11/18/21 20:00 11/29/21 09:42 Budesonide 0.5 Mg/2 Ml Nebu IH 0.5 mg Q12HRT PAULINA Administration Buspirone HCl 7.5 mg 11/28/21 22:00 11/29/21 09:33 Buspirone 5 Mg Tab PO 7.5 mg BID PAULINA Administration Carvedilol 12.5 mg 11/25/21 13:00 11/29/21 09:34 Carvedilol 12.5 Mg Tab FEEDTUBE 12.5 mg BID PAULINA Administration Dextrose 50 ml 11/18/21 10:40 Dextrose 50% In Water (25gm) 50 Ml Syringe IV Q30MIN PRN Hypoglycemia Protocol Enoxaparin Sodium 40 mg 11/19/21 22:00 11/28/21 22:29 Enoxaparin 40 Mg/0.4 Ml Inj SUB-Q 40 mg QDAY@2200 PAULINA Administration Protocol Famotidine 20 mg 11/20/21 10:00 11/29/21 09:33 Famotidine 20 Mg Tab FEEDTUBE 20 mg BID PAULINA Administration Fentanyl 50 mcg 11/27/21 11:45 Fentanyl 100 Mcg/2 Ml Inj IV Q10MIN PRN ANALGESIA Haloperidol Lactate 5 mg 11/26/21 15:00 11/27/21 04:31 Haloperidol Lactate 5 Mg/1 Ml Inj IV 5 mg Q8HR PRN Administration Agitation Hydralazine HCl 10 mg 11/18/21 10:44 11/27/21 07:34 Hydralazine 20 Mg/1 Ml Inj IV 10 mg Q4HR PRN Administration Hypertension Hydrophilic Ointment 1 applic 11/18/21 15:26 Lip Therapy Vaseline TP Q2HR PRN Dry Lips Dexmedetomidine HCl 400 mcg/ 104 mls @ 4.243 mls/hr 11/27/21 11:00 11/29/21 01:30 Sodium Chloride IV 0.3 mcg/kg/hr TITRATE PAULINA 6.365 mls/hr Administration Protocol 0.2 MCG/KG/HR Fentanyl Citrate 2,000 mcg in 100 mls @ 4.08 mls/hr 11/27/21 12:00 11/29/21 07:38 Fentanyl Drip Premix IV 3 mcg/kg/hr TITR PAULINA 12.24 mls/hr Administration Protocol 1 MCG/KG/HR Insulin Human Lispro 0 unit 11/18/21 12:00 11/29/21 12:53 Insulin Lispro 100 Unit/Ml SUB-Q 1 unit Q6HR [facility] Administration Protocol Magnesium Hydroxide 30 ml 11/18/21 03:10 Magnesium Hydroxide (Mom) Oral Liqd Udc PO Q4H PRN Constipation Methylprednisolone Sodium Succinate 30 mg 11/29/21 12:00 11/29/21 12:52 Methylprednisolone Sod Succinate 40 Mg/1 Ml Inj IV 12/01/21 06:01 30 mg Q6HR [facility] Administration Multi-Ingred Cream/Lotion/Oil/Oint 1 applic 11/18/21 15:26 Mineral Oil/Petrolatum, White Ophth Oint 3.5 Gm OU Q4HR PRN Dry Eye(s) Ondansetron HCl 4 mg 11/18/21 03:10 Ondansetron 4 Mg/2 Ml Inj IV Q8H PRN Nausea And Vomiting Oxycodone HCl 5 mg 11/27/21 09:50 Oxycodone 5 Mg Tab PO Q6H PRN Pain, Moderate (4-6) Quetiapine Fumarate 100 mg 11/28/21 22:00 11/28/21 22:28 Quetiapine 100 Mg Tab PO 100 mg QHS [facility] Administration Senna/Docusate Sodium 1 tab 11/18/21 22:00 11/29/21 09:33 Sennosides/Docusate Sodium 8.6/50 Mg Tab FEEDTUBE 1 tab BID PAULINA Administration Simple Syrup 15 ml 11/18/21 16:10 Simple Syrup 15 Ml FEEDTUBE PRN PRN Hypoglycemia Simple Syrup 30 ml 11/18/21 16:10 Simple Syrup 15 Ml FEEDTUBE PRN PRN Hypoglycemia Sodium Bicarbonate 325 mg 11/18/21 16:10 Sodium Bicarbonate 325 Mg Tab FEEDTUBE PRN PRN For Clogged Feeding Tube Nutrition/Malnutrition Assess - Dietary Evaluation Nutrition/Malnutrition Findings: Nutrition Notes Start: 11/18/21 10:45 Freq: Status: Active Protocol: Document 11/24/21 12:07 LEONARDO (Rec: 11/24/21 13:29 LEONARDO [email or web address]) Nutrition Notes Initial or Follow up Brief Note Current Diet TF-Promote @ 65 ml/hr (since D 11/18). Height 5 ft 8 in Weight 81.6 kg [place] Body Weight (kg) 63.63 BMI 27.3 Weight change and time frame No body weight change reported . Weight Status Overweight Subjective/Other Information RD consult for TF tolerance. TF continues as prescribed. Percent of energy/protein needs met: rescribed TF-Promote @ 65 ml/ hr provides for energy/protein needs (1,570 Kcal/98 g) during LOS; 95% Kcal; 96% AA. #1 Nutrition Diagnosis Inadequate oral intake Diagnosis Progress(for reassessment Continues documentation) Nutrition Intervention Nutrition Support: Continue Promote @ 65 ml/hr. Flush: 60 ml water Q 4 hr. Goal #1 Provide at least 75% of energy /protein needs through Enteral Feeding during LOS. Follow-Up By: 12/01/21 Additional Comments Continue monitoring TF tolerance, and BM. <ELEAZAR SCHMID - Last Filed: 11/30/21 23:48> Assessment and Plan Assessment and plan: I saw and evaluated the patient. Discussed with the nurse practitioner and agree with their findings and plan as documented in this note. Hospitalist Physical - Constitutional Vitals: Temp Pulse Resp BP Pulse Ox 97.6 F 58 L 18 136/59 95 11/30/21 20:00 11/30/21 22:46 11/30/21 22:10 11/30/21 22:46 11/30/21 18:01 HEART Score - HEART Score Troponin: Troponin T < 0.010 ng/mL (0.00-0.029) 11/18/21 03:25 Results - Labs CBC & Chem 7: 11/30/21 04:42 11/30/21 04:42 Labs: Laboratory Last Values WBC 10.4 K/mm3 (4.5-11.0) 11/30/21 04:42 RBC 5.05 M/mm3 (3.65-5.03) H 11/30/21 04:42 Hgb 13.1 gm/dl (10.1-14.3) 11/30/21 04:42 Hct 43.6 % (30.3-42.9) H 11/30/21 04:42 MCV 86 fl (79-97) 11/30/21 04:42 MCH 26 pg (28-32) L 11/30/21 04:42 MCHC 30 % (30-34) 11/30/21 04:42 RDW 17.5 % (13.2-15.2) H 11/30/21 04:42 Plt Count 431 K/mm3 (140-440) 11/30/21 04:42 Lymph % (Auto) 12.3 % (13.4-35.0) L 11/19/21 07:59 Turner % (Auto) 9.6 % (0.0-7.3) H 11/19/21 07:59 Eos % (Auto) 0.7 % (0.0-4.3) 11/19/21 07:59 Baso % (Auto) 0.5 % (0.0-1.8) 11/19/21 07:59 Lymph # (Auto) 1.6 K/mm3 (1.2-5.4) 11/19/21 07:59 Turner # (Auto) 1.2 K/mm3 (0.0-0.8) H 11/19/21 07:59 Eos # (Auto) 0.1 K/mm3 (0.0-0.4) 11/19/21 07:59 Baso # (Auto) 0.1 K/mm3 (0.0-0.1) 11/19/21 07:59 Add Manual Diff Complete 11/18/21 00:19 Total Counted 100 11/18/21 00:19 Seg Neutrophils % 76.9 % (40.0-70.0) H 11/19/21 07:59 Lymphocytes % (Manual) 4.0 % (13.4-35.0) L 11/18/21 00:19 Monocytes % (Manual) 2.0 % (0.0-7.3) 11/18/21 00:19 Nucleated RBC % Not Reportable 11/18/21 00:19 Seg Neutrophils # 9.7 K/mm3 (1.8-7.7) H 11/19/21 07:59 Seg Neutrophils # Man 14.7 K/mm3 (1.8-7.7) H 11/18/21 00:19 Band Neutrophils # 0.0 K/mm3 11/18/21 00:19 Lymphocytes # (Manual) 0.6 K/mm3 (1.2-5.4) L 11/18/21 00:19 Abs React Lymphs (Man) 0.0 K/mm3 11/18/21 00:19 Monocytes # (Manual) 0.3 K/mm3 (0.0-0.8) 11/18/21 00:19 Eosinophils # (Manual) 0.0 K/mm3 (0.0-0.4) 11/18/21 00:19 Basophils # (Manual) 0.0 K/mm3 (0.0-0.1) 11/18/21 00:19 Metamyelocytes # 0.0 K/mm3 11/18/21 00:19 Myelocytes # 0.0 K/mm3 11/18/21 00:19 Promyelocytes # 0.0 K/mm3 11/18/21 00:19 Blast Cells # 0.0 K/mm3 11/18/21 00:19 WBC Morphology Not Reportable 11/18/21 00:19 Hypersegmented Neuts Not Reportable 11/18/21 00:19 Hyposegmented Neuts Not Reportable 11/18/21 00:19 Hypogranular Neuts Not Reportable 11/18/21 00:19 Smudge Cells Not Reportable 11/18/21 00:19 Toxic Granulation Not Reportable 11/18/21 00:19 Toxic Vacuolation Not Reportable 11/18/21 00:19 Dohle Bodies Not Reportable 11/18/21 00:19 Pelger-Huet Anomaly Not Reportable 11/18/21 00:19 Luis Rods Not Reportable 11/18/21 00:19 Platelet Estimate Consistent w auto 11/18/21 00:19 Clumped Platelets Not Reportable 11/18/21 00:19 Plt Clumps, EDTA Not Reportable 11/18/21 00:19 Large Platelets Not Reportable 11/18/21 00:19 Giant Platelets Not Reportable 11/18/21 00:19 Platelet Satelliting Not Reportable 11/18/21 00:19 Plt Morphology Comment Not Reportable 11/18/21 00:19 RBC Morphology Not Reportable 11/18/21 00:19 Dimorphic RBCs Not Reportable 11/18/21 00:19 Polychromasia Not Reportable 11/18/21 00:19 Hypochromasia Not Reportable 11/18/21 00:19 Poikilocytosis Not Reportable 11/18/21 00:19 Anisocytosis 1+ 11/18/21 00:19 Microcytosis Not Reportable 11/18/21 00:19 Macrocytosis Few 11/18/21 00:19 Spherocytes Not Reportable 11/18/21 00:19 Pappenheimer Bodies Not Reportable 11/18/21 00:19 Sickle Cells Not Reportable 11/18/21 00:19 Target Cells Not Reportable 11/18/21 00:19 Tear Drop Cells Not Reportable 11/18/21 00:19 Ovalocytes Not Reportable 11/18/21 00:19 Helmet Cells Not Reportable 11/18/21 00:19 [place] Bodies Not Reportable 11/18/21 00:19 Bowman Rings Not Reportable 11/18/21 00:19 [place] Cells Not Reportable 11/18/21 00:19 Bite Cells Not Reportable 11/18/21 00:19 Crenated Cell Not Reportable 11/18/21 00:19 Elliptocytes Not Reportable 11/18/21 00:19 Acanthocytes (Spur) Not Reportable 11/18/21 00:19 Rouleaux Not Reportable 11/18/21 00:19 Hemoglobin C Crystals Not Reportable 11/18/21 00:19 Schistocytes Not Reportable 11/18/21 00:19 Malaria parasites Not Reportable 11/18/21 00:19 Shahriar Bodies Not Reportable 11/18/21 00:19 Hem Pathologist Commnt No 11/18/21 00:19 PT 12.9 Sec. (12.2-14.9) 11/18/21 00:19 INR 0.88 (0.87-1.13) 11/18/21 00:19 APTT 29.2 Sec. (24.2-36.6) 11/18/21 00:19 D-Dimer 464.80 ng/mlDDU (0-234) H 11/18/21 05:15 ABG pH 7.357 (7.320-7.450) 11/30/21 12:04 POC ABG pCO2 60.0 mmHg (32.0-48.0) H 11/30/21 12:04 ABG pCO2 64.5 mm Hg 11/26/21 10:28 POC ABG pO2 68.3 mmHg (83-108) L 11/30/21 12:04 ABG pO2 66.5 mm Hg (80.0-90.0) L 11/26/21 10:28 POC ABG HCO3 32.9 11/30/21 12:04 ABG HCO3 39.6 mmol/L (20.0-26.0) H 11/26/21 10:28 ABG O2 Saturation 92.3 (0-100) 11/30/21 12:04 ABG O2 Content 21.3 (0.0-44) 11/26/21 10:28 POC ABG Base Excess 5.5 11/30/21 12:04 ABG Base Excess 11.4 mmol/L (-2.0-3.0) H 11/26/21 10:28 ABG Hemoglobin 14.4 (12.0-17.5) 11/30/21 12:04 ABG Oxyhemoglobin 90.9 (94-98) L 11/30/21 12:04 ABG Carboxyhemoglobin 2.3 % (0.0-5.0) 11/26/21 10:28 ABG Methemoglobin 0.3 (0.0-1.5) 11/30/21 12:04 ABG Sodium 145.1 mmol/L (136.0-145.0) H 11/30/21 12:04 ABG Potassium 4.0 mmol/L (3.40-4.50) 11/30/21 12:04 ABG Chloride 102.0 mmol/L (98-107) 11/30/21 12:04 ABG Glucose 122 mg/dL (65-95) H 11/30/21 12:04 Oxyhemoglobin 90.3 % (95.0-99.0) L 11/26/21 10:28 Carboxyhemoglobin 1.2 (0.5-1.5) 11/30/21 12:04 FiO2 40 % 11/26/21 10:28 FiO2 % 40 11/30/21 12:04 Sodium 143 mmol/L (137-145) 11/30/21 04:42 Potassium 4.6 mmol/L (3.6-5.0) D 11/30/21 04:42 Chloride 101.8 mmol/L (98-107) 11/30/21 04:42 Carbon Dioxide 28 mmol/L (22-30) 11/30/21 04:42 Anion Gap 18 mmol/L 11/30/21 04:42 BUN 32 mg/dL (7-17) H 11/30/21 04:42 Creatinine 0.5 mg/dL (0.6-1.2) L 11/30/21 04:42 Estimated GFR > 60 ml/min 11/30/21 04:42 BUN/Creatinine Ratio 64 % 11/30/21 04:42 Glucose 178 mg/dL (65-100) H 11/30/21 04:42 POC Glucose 124 mg/dL (70-105) H 11/30/21 17:35 Hemoglobin A1c 5.9 % (4-6) 11/19/21 07:59 Lactic Acid 1.40 mmol/L (0.7-2.0) 11/18/21 00:19 Calcium 9.6 mg/dL (8.4-10.2) 11/30/21 04:42 Phosphorus 3.30 mg/dL (2.5-4.5) 11/29/21 05:51 Magnesium 2.20 mg/dL (1.7-2.3) 11/29/21 05:51 Total Bilirubin 0.40 mg/dL (0.1-1.2) 11/18/21 00:19 Direct Bilirubin < 0.2 mg/dL (0-0.2) 11/18/21 00:19 Indirect Bilirubin 0.2 mg/dL 11/18/21 00:19 AST 22 units/L (5-40) 11/18/21 00:19 ALT 25 units/L (7-56) 11/18/21 00:19 Alkaline Phosphatase 99 units/L (35-129) 11/18/21 00:19 Ammonia 54.0 umol/L (25-60) 11/18/21 00:19 Lactate Dehydrogenase 275 units/L (91-180) H 11/18/21 05:15 Troponin T < 0.010 ng/mL (0.00-0.029) 11/18/21 03:25 C-Reactive Protein 0.70 mg/dL (0.00-1.30) 11/18/21 15:47 NT-Pro-B Natriuret Pep 867.7 pg/mL (0-900) 11/18/21 00:19 Total Protein 7.4 g/dL (6.3-8.2) 11/18/21 00:19 Albumin 4.0 g/dL (3.9-5) 11/18/21 00:19 Albumin/Globulin Ratio 1.2 % 11/18/21 00:19 Triglycerides 185 mg/dL (2-149) H 11/22/21 04:39 Lipase 13 units/L (13-60) 11/18/21 00:19 Procalcitonin 0.12 ng/mL (<0.15) 11/18/21 05:15 Arterial Blood Glucose 122 mg/dL (65-95) H 11/30/21 12:04 Arterial Blood Ionized Calcium 5.2 mg/dL (4.6-5.3) 11/29/21 03:51 Urine Color Yellow (Yellow) 11/23/21 12:24 Urine Turbidity Clear (Clear) 11/23/21 12:24 Urine pH 7.0 (5.0-7.0) 11/23/21 12:24 Ur Specific [place] 1.018 (1.003-1.030) 11/23/21 12:24 Urine Protein <15 mg/dl mg/dL (Negative) 11/23/21 12:24 Urine Glucose (UA) Neg mg/dL (Negative) 11/23/21 12:24 Urine Ketones Neg mg/dL (Negative) 11/23/21 12:24 Urine Blood Neg (Negative) 11/23/21 12:24 Urine Nitrite Neg (Negative) 11/23/21 12:24 Urine Bilirubin Neg (Negative) 11/23/21 12:24 Urine Urobilinogen 4.0 mg/dL (<2.0) 11/23/21 12:24 Ur Leukocyte Esterase Neg (Negative) 11/23/21 12:24 Urine WBC (Auto) 1.0 /HPF (0.0-6.0) 11/23/21 12:24 Urine RBC (Auto) 1.0 /HPF (0.0-6.0) 11/23/21 12:24 U Epithel Cells (Auto) 1.0 /HPF (0-13.0) 11/18/21 01:03 Hyaline Casts 3 /LPF 11/18/21 01:03 Urine Mucus Few /HPF 11/18/21 01:03 Salicylates < 0.3 mg/dL (2.8-20.0) L 11/18/21 00:19 Urine Opiates Screen Negative 11/18/21 01:03 Urine Methadone Screen Negative 11/18/21 01:03 Acetaminophen 5.0 ug/mL (10.0-30.0) L 11/18/21 00:19 Ur Barbiturates Screen Negative 11/18/21 01:03 Ur Phencyclidine Scrn Negative 11/18/21 01:03 Ur Amphetamines Screen Negative 11/18/21 01:03 U Benzodiazepines Scrn Negative 11/18/21 01:03 Urine Cocaine Screen Negative 11/18/21 01:03 U Marijuana (THC) Screen Negative 11/18/21 01:03 Drugs of Abuse Note Disclamer 11/18/21 01:03 Plasma/Serum Alcohol < 0.01 % (0-0.07) 11/18/21 00:19 Coronavirus (PCR) Negative (Negative) 11/18/21 Unknown Briggs/IV: Voiding Method Indwelling Catheter Active Medications - Current Medications Current Medications: Generic Name Dose Route Start Last Admin Trade Name Freq PRN Reason Stop Dose Admin Acetaminophen 650 mg 11/18/21 03:10 11/22/21 19:49 Acetaminophen 650 Mg Rect Supp PA 650 mg Q6H PRN Administration Pain MILD(1-3)/Fever >100.5/MONTIEL Acetaminophen 650 mg 11/23/21 00:56 11/28/21 05:37 Acetaminophen 325 Mg/10.15 Ml Oral Liqd Unit Dose FEEDTUBE 650 mg Q6H PRN Administration Non Cardiac Pain or Temp>100.5 Acetylcysteine 200 mg 11/30/21 20:00 11/30/21 22:07 Acetylcysteine 20% 200 Mg/1 Ml *For Inhalation Use* INHALATION 12/03/21 19:59 Not Given Q6HRT PAULINA Albuterol/Ipratropium 1 ampul 11/30/21 15:00 11/30/21 22:04 Ipratropium/Albuterol Sulfate 3 Ml Ampul.Neb IH 1 ampul Q6HRT PAULINA Administration Amlodipine Besylate 10 mg 11/27/21 10:00 11/30/21 10:10 Amlodipine 10 Mg Tab PO 10 mg DAILY PAULINA Administration Lipase/Protease/Amylase 1 each 11/29/21 15:50 Lipase 10,500/Protease 25,000/Amylase 43,750 (Units) Dr Cross FEEDTUBE PRN PRN For Clogged Feeding Tube Arformoterol Tartrate 15 mcg 11/18/21 20:00 11/30/21 22:03 Arformoterol 15 Mcg/2 Ml Nebu IH 15 mcg Q12HRT PAULINA Administration Aspirin 81 mg 11/27/21 10:00 11/30/21 10:09 Aspirin Ec 81 Mg Tab PO 81 mg QDAY PAULINA Administration Budesonide 0.5 mg 11/18/21 20:00 11/30/21 22:03 Budesonide 0.5 Mg/2 Ml Nebu IH 0.5 mg Q12HRT PAULINA Administration Buspirone HCl 7.5 mg 11/28/21 22:00 11/30/21 22:47 Buspirone 5 Mg Tab PO 7.5 mg BID PAULINA Administration Carvedilol 12.5 mg 11/25/21 13:00 11/30/21 22:46 Carvedilol 12.5 Mg Tab FEEDTUBE Not Given BID PAULINA Dextrose 50 ml 11/18/21 10:40 Dextrose 50% In Water (25gm) 50 Ml Syringe IV Q30MIN PRN Hypoglycemia Protocol Enoxaparin Sodium 40 mg 11/19/21 22:00 11/30/21 22:48 Enoxaparin 40 Mg/0.4 Ml Inj SUB-Q 40 mg QDAY@2200 PAULINA Administration Protocol Famotidine 20 mg 11/20/21 10:00 11/30/21 22:47 Famotidine 20 Mg Tab FEEDTUBE 20 mg BID PAULINA Administration Fentanyl 50 mcg 11/27/21 11:45 11/30/21 12:09 Fentanyl 100 Mcg/2 Ml Inj IV 50 mcg Q10MIN PRN Administration ANALGESIA Haloperidol Lactate 5 mg 11/26/21 15:00 11/27/21 04:31 Haloperidol Lactate 5 Mg/1 Ml Inj IV 5 mg Q8HR PRN Administration Agitation Hydralazine HCl 10 mg 11/18/21 10:44 11/27/21 07:34 Hydralazine 20 Mg/1 Ml Inj IV 10 mg Q4HR PRN Administration Hypertension Hydrophilic Ointment 1 applic 11/18/21 15:26 Lip Therapy Vaseline TP Q2HR PRN Dry Lips Dexmedetomidine HCl 400 mcg/ 104 mls @ 4.243 mls/hr 11/27/21 11:00 11/30/21 13:00 Sodium Chloride IV 0 mcg/kg/hr TITRATE PAULINA 0 mls/hr Titration Protocol 0.2 MCG/KG/HR Fentanyl Citrate 2,000 mcg in 100 mls @ 4.08 mls/hr 11/27/21 12:00 11/30/21 22:48 Fentanyl Drip Premix IV 3 mcg/kg/hr TITR PAULINA 12.24 mls/hr Administration Protocol 1 MCG/KG/HR Insulin Human Lispro 0 unit 11/18/21 12:00 11/30/21 18:10 Insulin Lispro 100 Unit/Ml SUB-Q Not Given Q6HR PAULINA Protocol Magnesium Hydroxide 30 ml 11/18/21 03:10 Magnesium Hydroxide (Mom) Oral Liqd Udc PO Q4H PRN Constipation Methylprednisolone Sodium Succinate 30 mg 11/29/21 12:00 11/30/21 18:08 Methylprednisolone Sod Succinate 40 Mg/1 Ml Inj IV 12/01/21 06:01 30 mg Q6HR PAUILNA Administration Multi-Ingred Cream/Lotion/Oil/Oint 1 applic 11/18/21 15:26 Mineral Oil/Petrolatum, White Ophth Oint 3.5 Gm OU Q4HR PRN Dry Eye(s) Ondansetron HCl 4 mg 11/18/21 03:10 Ondansetron 4 Mg/2 Ml Inj IV Q8H PRN Nausea And Vomiting Oxycodone HCl 5 mg 11/27/21 09:50 Oxycodone 5 Mg Tab PO Q6H PRN Pain, Moderate (4-6) Quetiapine Fumarate 200 mg 11/30/21 22:00 11/30/21 22:47 Quetiapine 200 Mg Tab PO 200 mg BID PAULINA Administration Scopolamine 1 each 11/30/21 15:00 11/30/21 14:55 Scopolamine Transdermal Patch 72 Hr TD 1 each Q3D PAULINA Administration Senna/Docusate Sodium 1 tab 11/18/21 22:00 11/30/21 22:47 Sennosides/Docusate Sodium 8.6/50 Mg Tab FEEDTUBE 1 tab BID PAULINA Administration Simple Syrup 15 ml 11/29/21 15:50 Simple Syrup 15 Ml FEEDTUBE PRN PRN Hypoglycemia Simple Syrup 30 ml 11/29/21 15:50 Simple Syrup 15 Ml FEEDTUBE PRN PRN Hypoglycemia Sodium Bicarbonate 325 mg 11/29/21 15:50 Sodium Bicarbonate 325 Mg Tab FEEDTUBE PRN PRN For Clogged Feeding Tube Nutrition/Malnutrition Assess - Dietary Evaluation Nutrition/Malnutrition Findings: Nutrition Notes Start: 11/18/21 10:45 Freq: Status: Active Protocol: Document 11/29/21 15:42 NHALL (Rec: 11/29/21 15:50 NHALL [id number]) Nutrition Notes Initial or Follow up Reassessment Current Diagnosis COPD,Coronary Artery Disease, Heart Failure,Respiratory Failure,Hyperlipidemia Other Pertinent Diagnosis Toxic metabolic encephalopathy , Bilat pneu, UTI Current Diet TF - Promote at 65ml/hr Labs/Tests BUN 42 Pertinent Medications Reviewed Height 5 ft 8 in Weight 81.6 kg [place] Body Weight (kg) 63.63 BMI 27.3 Weight Status Overweight Subjective/Other Information Pt extubated on 11/27/21, however she was re-intubated on the same day sec to resp distress. TF infusing at 55ml /hr; per RN, will increase to goal rate this evening. Percent of energy/protein needs met: 82% energy 84% pro Burn Absent Trauma Absent #1 Nutrition Diagnosis Inadequate oral intake Diagnosis Progress(for reassessment Continues documentation) Is patient on ventilator? Yes Is Patient Ambulatory and/or Out of Bed No REE-([facility]-confined to bed) 1614.000 Calculation Used for Recommendations [facility] Additional Notes Pro needs 1.2-2g/k-163g/ day Fluid needs 1ml/kcal Nutrition Intervention Nutrition Support: Advance TF rate to goal of 65ml/hr and provide 50ml water flush q4h. Kcal 1,560 Protein (gm) 98 Carbohydrates (gm) 203 Fat (gm) 41 Fluid (mL) 1,309 Fiber (gm) 0 Goal #1 TF tolerance Goal #2 TF to meet at least 75% energy and pro needs Follow-Up By: 12/03/21 Additional Comments F/U: TF goal rate and tolerance, vent status
[2021-11-29] MEDS ORDERED: SIMPLE SYRUP 15 ML FEEDTUBE PRN ×2 (15:50)
[2021-11-29] MEDS ORDERED: SODIUM BICARBONATE 325 MG TAB FEEDTUBE PRN (15:50)
[2021-11-29] MEDS ORDERED: LIPASE 10,500/PROTEASE 25,000/AMYLASE 43,750 (UNITS) DR CAP FEEDTUBE PRN (15:50)
[2021-11-29] MEDS: QUEtiapine 100 MG TAB PO SCH (21:45)
[2021-11-29] MEDS: ENOXAPARIN 40 MG/0.4 ML INJ SUB-Q SCH (21:46)
[2021-11-30] MEDS: FREE WATER PO SCH ×5 (00:48→18:09)
[2021-11-30] MEDS: methylPREDNISolone Sod Succinate 40 MG/1 ML INJ IV SCH ×4 (00:53→18:08)
[2021-11-30] MEDS: INSULIN LISPRO 100 UNIT/ML SUB-Q SCH ×4 (00:54→18:10)
[2021-11-30 05:23] LABS: Mean Corpuscular HGB Conc 30 % (30-34); Mean Corpuscular Volume 86 fl (79-97); Platelet Count 431 K/mm3 (140-440); Red Blood Count 5.05 M/mm3 (3.65-5.03); Red Cell Distribution Width 17.5 % (13.2-15.2)
[2021-11-30 05:26] LABS: Hematocrit 43.6 % (30.3-42.9); Hemoglobin 13.1 gm/dl (10.1-14.3)
--- NOTE | 2021-11-30 05:35 | XRay Report ---
CHEST 1 VIEW INDICATION / CLINICAL INFORMATION: follow up respiratory failure. COMPARISON: 11/29/2021 FINDINGS: SUPPORT DEVICES: Stable, satisfactory device positioning. HEART / MEDIASTINUM: No significant abnormality. LUNGS / PLEURA: Stable left basilar pleural-parenchymal disease. Right lung remains grossly clear. No pneumothorax. ADDITIONAL FINDINGS: No significant additional findings. IMPRESSION: 1. Stable appearance of the chest radiograph. Signer Name: Karena Sarmiento MD Signed: 11/30/2021 5:31 AM Workstation Name: [id number]
[2021-11-30 05:38] LABS: Blood Urea Nitrogen 32 mg/dL (7-17); Calcium 9.6 mg/dL (8.4-10.2); Hemolysis Index 37
[2021-11-30 05:46] LABS: BUN/Creatinine Ratio 64
[2021-11-30] MEDS: BUDESONIDE 0.5 MG/2 ML NEBU IH SCH ×2 (08:23→22:03)
[2021-11-30] MEDS: ARFORMOTEROL 15 MCG/2 ML NEBU IH SCH ×2 (08:23→22:03)
[2021-11-30] MEDS: busPIRone 5 MG TAB PO SCH ×2 (10:08→22:47)
[2021-11-30] MEDS: FAMOTIDINE 20 MG TAB FEEDTUBE SCH ×2 (10:08→22:47)
[2021-11-30] MEDS: SENNOSIDES/DOCUSATE SODIUM 8.6/50 MG TAB FEEDTUBE SCH ×2 (10:09→22:47)
[2021-11-30] MEDS: carvediloL 12.5 MG TAB FEEDTUBE SCH ×2 (10:09→22:46)
[2021-11-30] MEDS: ASPIRIN EC 81 MG TAB PO SCH (10:09)
[2021-11-30] MEDS: amLODIPine 10 MG TAB PO SCH (10:10)
--- NOTE | 2021-11-30 12:14 | Progress Note ---
Assessment and Plan Assessment and plan: This is a 81-year-old AA female with past medical history of CAD, CHF, pulmonary hypertension, COPD, and tobacco abuse admitted for acute hypoxemic respiratory failure 2/2 of bilateral pneumonia vs COPD exacerbation/pulmonary edema requiring intubation and ventilatory support. Hospital Course to Date: 11/18: Patient was seen and examined in the ED. Patient is intubated and sedated on propofol and versed gtt, RASS -3 to -4. Patient is in hypertensive emergency this am, SBP in the 240s, cardene gtt was initiated, maintain SBP less than 160. Leukocytosis noted, UA significant for UTI. Lactic, procal, and CRP are normal. Patient remains afebrile, continue empiric IV abx for now. Tracheal aspirate ordered, blood culture is pending. Continue to f/u on culture data. 11/19: Patient remains intubated and sedated. Patient did not tolerate sedation vacation this am, became tachycardic, hypertensive, with elevated RR and SPO2 in the low 80s. Sedation back on, continue to wean sedation as tolerated for RASS goal of 0 to -2. Pateimt is off cardene gtt, PRN hydralazine for SPO2 above 160. Low K repleted, repeat labs in the am. 11/20: Remains on the vent and sedated, RASS -3. Plan to wean down on sedation, might need to add Seroquel if patient is not tolerating sedation. Hypernatremia and increased BUN/Cr. this am, patient is on lasix BID. Will discuss with [facility] to possibly hold or decreased IV lasix for now, FWF added for high Na. Urinary retention post briggs removal, bladder scan and straight cath per protocol. 11/21: Patient remains on the vent, unable to wean sedation at this time, Seroquel added. Titrate sedation as tolerated for RASS of 0 to -2. Briggs was r einserted overnight for urinary retention, kidney function is stable. 11/22: [facility] reduced FiO2. We will start weaning tomorrow. No acute events reported overnight. 11/23: Patient spiked a fever overnight and was cultured this morning. Attempted CPAP trial again today. An ABG obtained post trial which has been given to [facility]. Slight hypernatremia noted. 11/24: I updated patient's son today, Kwame Salamanca at [phone]. Lasix stopped today. Patient placed on CPAP trial. She lasted on CPAP all day yesterday and was rested overnight on assist control. Given Kayexalate today due to hyperkalemia. 11/25: Patient was on SBT today and was not arousable for a while and a CT head was obtained which showed no acute intracranial abnormality. Patient later became severely agitated and was switched back to assist control and placed back on sedation. Family updated today. Restarted home Coreg due to hypotension. 11/26: SBT today, Haldol as needed. Briggs was removed yesterday bladder scan x2 with urine output. Slight hypernatremia persists. Blood pressure better controlled. 11/27/2021: Patient was extubated by [facility] this morning. Patient was severely agitated and given 2 mg Ativan, SBP 200s and given labatalol x1 10mg, [place] tube placed and given PO BP medications. She had stridor and was given racemic epi. We wanted to place BiPAP but after consolation with Dr. Gallegos it was decided t o intubate the patient. She was intubated by Deidra, RT and given etomidate, versed and fentanyl. CXR in process. On fentanyl and precedex gtt. 11/28: added buspar to help with agitation, restarted serqoul at lower dose. weaned fi02 today. 11/29: Remains on the vent and on sedation, fent and precedx gtts. D/w [facility] plan for possible SAT and SBT in the am, hold TF at 6am on 11/30 for possible SAT/SBT. 11/30: Patient mentation slightly better this am, still on predex and fentanyl gtt. However, easily arousable, following simple commands. Tolerated SBT trial for about 2hrs today then patient was placed back on a rate due to increased work of breathing and increased agitation. D/w [facility] seroquel increased to BID, plan to try SAT/SBT again the am. Assessment and Plan #Neuro: Agitation - Patient intubated and sedated on Fentanyl and precedex gtt, RASS -1 - On Seroquel and Buspar - Continue sedation for RASS goal of 0 to -1 - PRN Haldol for agitation - Close monitoring of QTc - Daily SAT and SBT per [facility] - Avoid benzodiazepine to reduce the possibility of delirium - PRN analgesia for CPOT greater than 3 - Maintenance of sleep-wake cycle #CHF and Pulmonary HTN #Hypertensive Emergency-resolved #H/o CAD - Patient SBP as in the 240s in the ED - S/p cardene gtt - 12/2020 Echo with a EF of 60- 65% - IV Lasix D/naren - Continue home antihypertensives - Continue blood pressure monitor per protocol - PRN hydralazine for SBP greater than 160 #Acute Hypoxemic Respiratory Failure #COPD Exacerbation #Bilateral Pneumonia #Pulmonary Edema - Chest x-ray shows bilateral pulmonary opacities possibly representing edema/atelectasis or pneumonia. - CT of the chest shows evidence of pulmonary hypertension with dense consolidation along the left lower lobe that is concerning for pneumonia. Mild interstitial pulmonary edema. - Patient intubated in the ED on 11/18, extubated on 11/27 - Patient was reintubated on 11/27 due to stridor - Vent Setting this am:Cpap-45%,6,16,PS-14 - AM ABG pending - CCM consulted, appreciate recommendations - IV steroids added per CCMX3 days - VAP bundle addressed - Aspiration precaution HOB above 30 - Daily SBT and SAT trials as tolerated - Daily ABG and CXR - Continue SPO2 monitoring for SPO2 goal above 92% #GI:H/o GERD - Continue enteral nutrition - Nutrition on consult - Continue PPI- Pepcid - Continue BR #Urinary Retention #Hyperkalemia-improved #Hypokalemia-resolved - Brigsg reinserted twice due to urinary retention - LAsix D/naren - Strict intake and output - Monitor and replace electrolytes as needed - Trend BMP - Avoid nephrotoxic medications; Renally dose medications #Elevated D-Dimer - BLE DVT negative - Per CCM no indication for CTA at this time - Lovenox added for DVT proph. - SCDs to bilateral lower extremities while in bed #ID:Bilateral Pneumonia #Urinary tract Infection #Leukocytosis - Imagings shown bilateral opacities representing pulmonary edema vs pneumonia - WBCs as high as 15.6, downtrending - CRP and procal is normal - COVID swab neg - Urinalysis was significant for UTI. - B. cultures negative - Sputum culture +parisa Albicans - Patient afebrile - Patient completed IV antibiotic course - Daily CBC monitor - Consider ID consult if febrile or/and if leukocytosis reocccur #Endo:Glycemic Control - Continue BG check Q6hrs while on TF - SSI Q6hrs - Avoid Hypoglycemia The high probability of a clinically significant, sudden or life threatening deterioration of the [Neuro, Resp] system(s) required my full and direct attention, intervention and personal management. The aggregate critical care time was [60] minutes. This time is in addition to time spent performing reported procedures but includes the following: [x] Data Review and interpretation [x] Patient assessment and monitoring of vital signs [x] Documentation [x] Medication orders and management Disposition Plan: ICU Total Time Spent with Patient (Minutes): 60 History Interval history: Patient seen and examined at the bedside. Patient remains intubated and sedated, on Fentanyl and precedex gtts RASS -1. Mentation slightly better this am, following commands and more calm. [place] overnight Hospitalist Physical - Constitutional Vitals: Temp Pulse Resp BP Pulse Ox 98.4 F 56 L 17 149/68 93 11/30/21 08:00 11/30/21 11:01 11/30/21 11:01 11/30/21 11:01 11/30/21 11:01 General appearance: Present: no acute distress, other (Intubated and Sedated) - EENT Eyes: Present: PERRL ENT: hearing intact - Neck Neck: Present: normal ROM - Respiratory Respiratory effort: normal Respiratory: bilateral: rhonchi - Cardiovascular Rhythm: regular Heart Sounds: Present: S1 & S2 - Extremities Extremities: no ischemia, pulses intact, pulses symmetrical Extremity abnormal: edema - Peripheral Assessment Generalized Edema Type: Non-pitting Edema Degree: 1+ Capillary Refill: < 3 seconds Skin Temperature: Warm Peripheral Pulses: within normal limits - Abdominal General gastrointestinal: soft, non-tender, normal bowel sounds - Integumentary Integumentary: Present: warm, dry - Psychiatric Psychiatric: cooperative - Neurologic Neurologic: moves all extremities - Allied Health Allied health notes reviewed: nursing HEART Score - HEART Score Troponin: Troponin T < 0.010 ng/mL (0.00-0.029) 11/18/21 03:25 Results - Labs CBC & Chem 7: 11/30/21 04:42 11/30/21 04:42 Labs: Laboratory Last Values WBC 10.4 K/mm3 (4.5-11.0) 11/30/21 04:42 RBC 5.05 M/mm3 (3.65-5.03) H 11/30/21 04:42 Hgb 13.1 gm/dl (10.1-14.3) 11/30/21 04:42 Hct 43.6 % (30.3-42.9) H 11/30/21 04:42 MCV 86 fl (79-97) 11/30/21 04:42 MCH 26 pg (28-32) L 11/30/21 04:42 MCHC 30 % (30-34) 11/30/21 04:42 RDW 17.5 % (13.2-15.2) H 11/30/21 04:42 Plt Count 431 K/mm3 (140-440) 11/30/21 04:42 Lymph % (Auto) 12.3 % (13.4-35.0) L 11/19/21 07:59 [place] % (Auto) 9.6 % (0.0-7.3) H 11/19/21 07:59 Eos % (Auto) 0.7 % (0.0-4.3) 11/19/21 07:59 Baso % (Auto) 0.5 % (0.0-1.8) 11/19/21 07:59 Lymph # (Auto) 1.6 K/mm3 (1.2-5.4) 11/19/21 07:59 [place] # (Auto) 1.2 K/mm3 (0.0-0.8) H 11/19/21 07:59 Eos # (Auto) 0.1 K/mm3 (0.0-0.4) 11/19/21 07:59 Baso # (Auto) 0.1 K/mm3 (0.0-0.1) 11/19/21 07:59 Add Manual Diff Complete 11/18/21 00:19 Total Counted 100 11/18/21 00:19 Seg Neutrophils % 76.9 % (40.0-70.0) H 11/19/21 07:59 Lymphocytes % (Manual) 4.0 % (13.4-35.0) L 11/18/21 00:19 Monocytes % (Manual) 2.0 % (0.0-7.3) 11/18/21 00:19 Nucleated RBC % Not Reportable 11/18/21 00:19 Seg Neutrophils # 9.7 K/mm3 (1.8-7.7) H 11/19/21 07:59 Seg Neutrophils # Man 14.7 K/mm3 (1.8-7.7) H 11/18/21 00:19 Band Neutrophils # 0.0 K/mm3 11/18/21 00:19 Lymphocytes # (Manual) 0.6 K/mm3 (1.2-5.4) L 11/18/21 00:19 Abs React Lymphs (Man) 0.0 K/mm3 11/18/21 00:19 Monocytes # (Manual) 0.3 K/mm3 (0.0-0.8) 11/18/21 00:19 Eosinophils # (Manual) 0.0 K/mm3 (0.0-0.4) 11/18/21 00:19 Basophils # (Manual) 0.0 K/mm3 (0.0-0.1) 11/18/21 00:19 Metamyelocytes # 0.0 K/mm3 11/18/21 00:19 Myelocytes # 0.0 K/mm3 11/18/21 00:19 Promyelocytes # 0.0 K/mm3 11/18/21 00:19 Blast Cells # 0.0 K/mm3 11/18/21 00:19 WBC Morphology Not Reportable 11/18/21 00:19 Hypersegmented Neuts Not Reportable 11/18/21 00:19 Hyposegmented Neuts Not Reportable 11/18/21 00:19 Hypogranular Neuts Not Reportable 11/18/21 00:19 Smudge Cells Not Reportable 11/18/21 00:19 Toxic Granulation Not Reportable 11/18/21 00:19 Toxic Vacuolation Not Reportable 11/18/21 00:19 Dohle Bodies Not Reportable 11/18/21 00:19 Pelger-Huet Anomaly Not Reportable 11/18/21 00:19 Luis Rods Not Reportable 11/18/21 00:19 Platelet Estimate Consistent w auto 11/18/21 00:19 Clumped Platelets Not Reportable 11/18/21 00:19 Plt Clumps, EDTA Not Reportable 11/18/21 00:19 Large Platelets Not Reportable 11/18/21 00:19 Giant Platelets Not Reportable 11/18/21 00:19 Platelet Satelliting Not Reportable 11/18/21 00:19 Plt Morphology Comment Not Reportable 11/18/21 00:19 RBC Morphology Not Reportable 11/18/21 00:19 Dimorphic RBCs Not Reportable 11/18/21 00:19 Polychromasia Not Reportable 11/18/21 00:19 Hypochromasia Not Reportable 11/18/21 00:19 Poikilocytosis Not Reportable 11/18/21 00:19 Anisocytosis 1+ 11/18/21 00:19 Microcytosis Not Reportable 11/18/21 00:19 Macrocytosis Few 11/18/21 00:19 Spherocytes Not Reportable 11/18/21 00:19 Pappenheimer Bodies Not Reportable 11/18/21 00:19 Sickle Cells Not Reportable 11/18/21 00:19 Target Cells Not Reportable 11/18/21 00:19 Tear Drop Cells Not Reportable 11/18/21 00:19 Ovalocytes Not Reportable 11/18/21 00:19 Helmet Cells Not Reportable 11/18/21 00:19 Connelly-Saline Bodies Not Reportable 11/18/21 00:19 [place] Rings Not Reportable 11/18/21 00:19 Yumi Cells Not Reportable 11/18/21 00:19 Bite Cells Not Reportable 11/18/21 00:19 Crenated Cell Not Reportable 11/18/21 00:19 Elliptocytes Not Reportable 11/18/21 00:19 Acanthocytes (Spur) Not Reportable 11/18/21 00:19 Rouleaux Not Reportable 11/18/21 00:19 Hemoglobin C Crystals Not Reportable 11/18/21 00:19 Schistocytes Not Reportable 11/18/21 00:19 Malaria parasites Not Reportable 11/18/21 00:19 Shahriar Bodies Not Reportable 11/18/21 00:19 Hem Pathologist Commnt No 11/18/21 00:19 PT 12.9 Sec. (12.2-14.9) 11/18/21 00:19 INR 0.88 (0.87-1.13) 11/18/21 00:19 APTT 29.2 Sec. (24.2-36.6) 11/18/21 00:19 D-Dimer 464.80 ng/mlDDU (0-234) H 11/18/21 05:15 ABG pH 7.442 (7.320-7.450) 11/29/21 03:51 POC ABG pCO2 54.1 mmHg (32.0-48.0) H 11/29/21 03:51 ABG pCO2 64.5 mm Hg 11/26/21 10:28 POC ABG pO2 70.6 mmHg (83-108) L 11/29/21 03:51 ABG pO2 66.5 mm Hg (80.0-90.0) L 11/26/21 10:28 POC ABG HCO3 36.1 11/29/21 03:51 ABG HCO3 39.6 mmol/L (20.0-26.0) H 11/26/21 10:28 ABG O2 Saturation 94.4 (0-100) 11/29/21 03:51 ABG O2 Content 21.3 (0.0-44) 11/26/21 10:28 POC ABG Base Excess 10.1 11/29/21 03:51 ABG Base Excess 11.4 mmol/L (-2.0-3.0) H 11/26/21 10:28 ABG Hemoglobin 13.5 (12.0-17.5) 11/29/21 03:51 ABG Oxyhemoglobin 93.1 (94-98) L 11/29/21 03:51 ABG Carboxyhemoglobin 2.3 % (0.0-5.0) 11/26/21 10:28 ABG Methemoglobin 0.3 (0.0-1.5) 11/29/21 03:51 ABG Sodium 142.0 mmol/L (136.0-145.0) 11/29/21 03:51 ABG Potassium 3.6 mmol/L (3.40-4.50) 11/29/21 03:51 ABG Chloride 99.0 mmol/L (98-107) 11/29/21 03:51 ABG Glucose 144 mg/dL (65-95) H 11/29/21 03:51 Oxyhemoglobin 90.3 % (95.0-99.0) L 11/26/21 10:28 Carboxyhemoglobin 1.1 (0.5-1.5) 11/29/21 03:51 FiO2 40 % 11/26/21 10:28 FiO2 % 40.0 11/29/21 03:51 Sodium 143 mmol/L (137-145) 11/30/21 04:42 Potassium 4.6 mmol/L (3.6-5.0) D 11/30/21 04:42 Chloride 101.8 mmol/L (98-107) 11/30/21 04:42 Carbon Dioxide 28 mmol/L (22-30) 11/30/21 04:42 Anion Gap 18 mmol/L 11/30/21 04:42 BUN 32 mg/dL (7-17) H 11/30/21 04:42 Creatinine 0.5 mg/dL (0.6-1.2) L 11/30/21 04:42 Estimated GFR > 60 ml/min 11/30/21 04:42 BUN/Creatinine Ratio 64 % 11/30/21 04:42 Glucose 178 mg/dL (65-100) H 11/30/21 04:42 POC Glucose 156 mg/dL (70-105) H 11/30/21 11:27 Hemoglobin A1c 5.9 % (4-6) 11/19/21 07:59 Lactic Acid 1.40 mmol/L (0.7-2.0) 11/18/21 00:19 Calcium 9.6 mg/dL (8.4-10.2) 11/30/21 04:42 Phosphorus 3.30 mg/dL (2.5-4.5) 11/29/21 05:51 Magnesium 2.20 mg/dL (1.7-2.3) 11/29/21 05:51 Total Bilirubin 0.40 mg/dL (0.1-1.2) 11/18/21 00:19 Direct Bilirubin < 0.2 mg/dL (0-0.2) 11/18/21 00:19 Indirect Bilirubin 0.2 mg/dL 11/18/21 00:19 AST 22 units/L (5-40) 11/18/21 00:19 ALT 25 units/L (7-56) 11/18/21 00:19 Alkaline Phosphatase 99 units/L (35-129) 11/18/21 00:19 Ammonia 54.0 umol/L (25-60) 11/18/21 00:19 Lactate Dehydrogenase 275 units/L (91-180) H 11/18/21 05:15 Troponin T < 0.010 ng/mL (0.00-0.029) 11/18/21 03:25 C-Reactive Protein 0.70 mg/dL (0.00-1.30) 11/18/21 15:47 NT-Pro-B Natriuret Pep 867.7 pg/mL (0-900) 11/18/21 00:19 Total Protein 7.4 g/dL (6.3-8.2) 11/18/21 00:19 Albumin 4.0 g/dL (3.9-5) 11/18/21 00:19 Albumin/Globulin Ratio 1.2 % 11/18/21 00:19 Triglycerides 185 mg/dL (2-149) H 11/22/21 04:39 Lipase 13 units/L (13-60) 11/18/21 00:19 Procalcitonin 0.12 ng/mL (<0.15) 11/18/21 05:15 Arterial Blood Glucose 144 mg/dL (65-95) H 11/29/21 03:51 Arterial Blood Ionized Calcium 5.2 mg/dL (4.6-5.3) 11/29/21 03:51 Urine Color Yellow (Yellow) 11/23/21 12:24 Urine Turbidity Clear (Clear) 11/23/21 12:24 Urine pH 7.0 (5.0-7.0) 11/23/21 12:24 Ur Specific [place] 1.018 (1.003-1.030) 11/23/21 12:24 Urine Protein <15 mg/dl mg/dL (Negative) 11/23/21 12:24 Urine Glucose (UA) Neg mg/dL (Negative) 11/23/21 12:24 Urine Ketones Neg mg/dL (Negative) 11/23/21 12:24 Urine Blood Neg (Negative) 11/23/21 12:24 Urine Nitrite Neg (Negative) 11/23/21 12:24 Urine Bilirubin Neg (Negative) 11/23/21 12:24 Urine Urobilinogen 4.0 mg/dL (<2.0) 11/23/21 12:24 Ur Leukocyte Esterase Neg (Negative) 11/23/21 12:24 Urine WBC (Auto) 1.0 /HPF (0.0-6.0) 11/23/21 12:24 Urine RBC (Auto) 1.0 /HPF (0.0-6.0) 11/23/21 12:24 U Epithel Cells (Auto) 1.0 /HPF (0-13.0) 11/18/21 01:03 Hyaline Casts 3 /LPF 11/18/21 01:03 Urine Mucus Few /HPF 11/18/21 01:03 Salicylates < 0.3 mg/dL (2.8-20.0) L 11/18/21 00:19 Urine Opiates Screen Negative 11/18/21 01:03 Urine Methadone Screen Negative 11/18/21 01:03 Acetaminophen 5.0 ug/mL (10.0-30.0) L 11/18/21 00:19 Ur Barbiturates Screen Negative 11/18/21 01:03 Ur Phencyclidine Scrn Negative 11/18/21 01:03 Ur Amphetamines Screen Negative 11/18/21 01:03 U Benzodiazepines Scrn Negative 11/18/21 01:03 Urine Cocaine Screen Negative 11/18/21 01:03 U Marijuana (THC) Screen Negative 11/18/21 01:03 Drugs of Abuse Note Disclamer 11/18/21 01:03 Plasma/Serum Alcohol < 0.01 % (0-0.07) 11/18/21 00:19 Coronavirus (PCR) Negative (Negative) 11/18/21 Unknown Briggs/IV: Voiding Method Indwelling Catheter Active Medications - Current Medications Current Medications: Generic Name Dose Route Start Last Admin Trade Name Freq PRN Reason Stop Dose Admin Acetaminophen 650 mg 11/18/21 03:10 11/22/21 19:49 Acetaminophen 650 Mg Rect Supp IN 650 mg Q6H PRN Administration Pain MILD(1-3)/Fever >100.5/MONTIEL Acetaminophen 650 mg 11/23/21 00:56 11/28/21 05:37 Acetaminophen 325 Mg/10.15 Ml Oral Liqd Unit Dose FEEDTUBE 650 mg Q6H PRN Administration Non Cardiac Pain or Temp>100.5 Amlodipine Besylate 10 mg 11/27/21 10:00 11/30/21 10:10 Amlodipine 10 Mg Tab PO 10 mg DAILY PAULINA Administration Lipase/Protease/Amylase 1 each 11/29/21 15:50 Lipase 10,500/Protease 25,000/Amylase 43,750 (Units) Dr Cap FEEDTUBE PRN PRN For Clogged Feeding Tube Arformoterol Tartrate 15 mcg 11/18/21 20:00 11/30/21 08:23 Arformoterol 15 Mcg/2 Ml Nebu IH 15 mcg Q12HRT PAULINA Administration Aspirin 81 mg 11/27/21 10:00 11/30/21 10:09 Aspirin Ec 81 Mg Tab PO 81 mg QDAY PAULINA Administration Budesonide 0.5 mg 11/18/21 20:00 11/30/21 08:23 Budesonide 0.5 Mg/2 Ml Nebu IH 0.5 mg Q12HRT PAULINA Administration Buspirone HCl 7.5 mg 11/28/21 22:00 11/30/21 10:08 Buspirone 5 Mg Tab PO 7.5 mg BID PAULINA Administration Carvedilol 12.5 mg 11/25/21 13:00 11/30/21 10:09 Carvedilol 12.5 Mg Tab FEEDTUBE Not Given BID PAULINA Dextrose 50 ml 11/18/21 10:40 Dextrose 50% In Water (25gm) 50 Ml Syringe IV Q30MIN PRN Hypoglycemia Protocol Enoxaparin Sodium 40 mg 11/19/21 22:00 11/29/21 21:46 Enoxaparin 40 Mg/0.4 Ml Inj SUB-Q 40 mg QDAY@2200 PAULINA Administration Protocol Famotidine 20 mg 11/20/21 10:00 11/30/21 10:08 Famotidine 20 Mg Tab FEEDTUBE 20 mg BID PAULINA Administration Fentanyl 50 mcg 11/27/21 11:45 11/30/21 12:09 Fentanyl 100 Mcg/2 Ml Inj IV 50 mcg Q10MIN PRN Administration ANALGESIA Haloperidol Lactate 5 mg 11/26/21 15:00 11/27/21 04:31 Haloperidol Lactate 5 Mg/1 Ml Inj IV 5 mg Q8HR PRN Administration Agitation Hydralazine HCl 10 mg 11/18/21 10:44 11/27/21 07:34 Hydralazine 20 Mg/1 Ml Inj IV 10 mg Q4HR PRN Administration Hypertension Hydrophilic Ointment 1 applic 11/18/21 15:26 Lip Therapy Vaseline TP Q2HR PRN Dry Lips Dexmedetomidine HCl 400 mcg/ 104 mls @ 4.243 mls/hr 11/27/21 11:00 11/30/21 06:30 Sodium Chloride IV 0.3 mcg/kg/hr TITRATE PAULINA 6.365 mls/hr Titration Protocol 0.2 MCG/KG/HR Fentanyl Citrate 2,000 mcg in 100 mls @ 4.08 mls/hr 11/27/21 12:00 11/30/21 12:12 Fentanyl Drip Premix IV 1 mcg/kg/hr TITR PAULINA 4.08 mls/hr Titration Protocol 1 MCG/KG/HR Insulin Human Lispro 0 unit 11/18/21 12:00 11/30/21 12:11 Insulin Lispro 100 Unit/Ml SUB-Q Not Given Q6HR [facility] Protocol Magnesium Hydroxide 30 ml 11/18/21 03:10 Magnesium Hydroxide (Mom) Oral Liqd Udc PO Q4H PRN Constipation Methylprednisolone Sodium Succinate 30 mg 11/29/21 12:00 11/30/21 12:10 Methylprednisolone Sod Succinate 40 Mg/1 Ml Inj IV 12/01/21 06:01 30 mg Q6HR PAULINA Administration Multi-Ingred Cream/Lotion/Oil/Oint 1 applic 11/18/21 15:26 Mineral Oil/Petrolatum, White Ophth Oint 3.5 Gm OU Q4HR PRN Dry Eye(s) Ondansetron HCl 4 mg 11/18/21 03:10 Ondansetron 4 Mg/2 Ml Inj IV Q8H PRN Nausea And Vomiting Oxycodone HCl 5 mg 11/27/21 09:50 Oxycodone 5 Mg Tab PO Q6H PRN Pain, Moderate (4-6) Quetiapine Fumarate 100 mg 11/28/21 22:00 11/29/21 21:45 Quetiapine 100 Mg Tab PO 100 mg QHS PAULINA Administration Senna/Docusate Sodium 1 tab 11/18/21 22:00 11/30/21 10:09 Sennosides/Docusate Sodium 8.6/50 Mg Tab FEEDTUBE 1 tab BID PAULINA Administration Simple Syrup 15 ml 11/29/21 15:50 Simple Syrup 15 Ml FEEDTUBE PRN PRN Hypoglycemia Simple Syrup 30 ml 11/29/21 15:50 Simple Syrup 15 Ml FEEDTUBE PRN PRN Hypoglycemia Sodium Bicarbonate 325 mg 11/29/21 15:50 Sodium Bicarbonate 325 Mg Tab FEEDTUBE PRN PRN For Clogged Feeding Tube Nutrition/Malnutrition Assess - Dietary Evaluation Nutrition/Malnutrition Findings: Nutrition Notes Start: 12/23/21 10:45 Freq: Status: Active Protocol: Document 11/29/21 15:42 ADEELMARIAELENA (Rec: 11/29/21 15:50 ROSE [id number]) Nutrition Notes Initial or Follow up Reassessment Current Diagnosis COPD,Coronary Artery Disease, Heart Failure,Respiratory Failure,Hyperlipidemia Other Pertinent Diagnosis Toxic metabolic encephalopathy , Bilat pneu, UTI Current Diet TF - Promote at 65ml/hr Labs/Tests BUN 42 Pertinent Medications Reviewed Height 5 ft 8 in Weight 81.6 kg [place] Body Weight (kg) 63.63 BMI 27.3 Weight Status Overweight Subjective/Other Information Pt extubated on 11/27/21, however she was re-intubated on the same day sec to resp distress. TF infusing at 55ml /hr; per RN, will increase to goal rate this evening. Percent of energy/protein needs met: 82% energy 84% pro Burn Absent Trauma Absent #1 Nutrition Diagnosis Inadequate oral intake Diagnosis Progress(for reassessment Continues documentation) Is patient on ventilator? Yes Is Patient Ambulatory and/or Out of Bed No REE-([place]-St. Jeor-confined to bed) 1614.000 Calculation Used for Recommendations [place] Jeor Additional Notes Pro needs 1.2-2g/k-163g/ day Fluid needs 1ml/kcal Nutrition Intervention Nutrition Support: Advance TF rate to goal of 65ml/hr and provide 50ml water flush q4h. Kcal 1,560 Protein (gm) 98 Carbohydrates (gm) 203 Fat (gm) 41 Fluid (mL) 1,309 Fiber (gm) 0 Goal #1 TF tolerance Goal #2 TF to meet at least 75% energy and pro needs Follow-Up By: 12/03/21 Additional Comments F/U: TF goal rate and tolerance, vent status
--- NOTE | 2021-11-30 13:08 | Progress Note ---
Assessment and Plan Acute exacerbation of chronic obstructive lung disease Acute hypoxemic respiratory failure Acute congestive heart failure exacerbation (? Flash Pulmonary edema) Community-acquired pneumonia Leukocytosis History of coronary artery disease Gastroesophageal reflux disease Arthritis Hyperlipidemia Obesity Elevated D-dimers Acute toxic metabolic encephalopathy Urinary tract infection Likely pulmonary hypertension Hypertensive emergency - continue systemic steroids for tentative laryngeal edema (cuff leak better) - begin mucomyst nebs - increase seroquel re: agitation / delirium - tentative trial of extubation in am after secretions better (extubate to BIPAP) - continue care as below otherwise; - Daily SAT and SBT assessment as tolerated - continue to wean supplemental oxygen for target O2 sat's > 90% acutely - VAP bundle addressed - continue lung protective strategies - continue bronchodilators with pulmonary hygiene per RT - wean per pulmonary driven protocols otherwise - avoid nephrotoxins, renally dose all medications - continue accuchecks with glycemic control per SSI (While critically ill target blood glucose of 140-180 mg/dL; avoid hypoglycemia) - sedation prn for target RASS 0 to -1 - continue to avoid benzodiazepine's, reduce the possibility of delirium - completed AB's per ID rec's - prn analgesia per CPOT score - Maintenance of sleep-wake cycle, avoid delirium - continue enteral nutritional support at goal rate as tolerated - G.I. & VTE prophylaxis - PT/OT/ROM exercises - continue mobility protocols for pressure ulcer prophylaxis - Monitor hemodynamics closely - continue other care per attending / other consultants - discharge planning ongoing concurrently COVID SPECIFIC INTERVENTIONS: - COVID-19 test negative .... Re-evaluate in am & prn CONDITION: CRITICAL PROGNOSIS: GUARDED CODE STATUS: FULL CODE The high probability of a clinically significant, sudden or life-threatening deterioration of the [respiratory, cardiovascular & neurologic] system(s) required my full and direct attention, intervention and personal management. The aggregate critical care time was [32] minutes without overlap. Time includes spent on; [x] Data Review and interpretation [x] Patient assessment and monitoring of vital signs [x] Documentation [x] Medication orders and management Subjective Date of service: 11/30/21 Principal diagnosis: AE-COPD; AHRF; CHF (? new onset); CAP; CAD; Obesity; HTNsive Emergency Interval history: Patient is seen today for: AE-COPD; Acute hypoxemic respiratory failure; CHF (? new onset); CAP; CAD; Obesity; HTNsive Emergency Seen and examined at bedside; 24hour events reviewed; nursing and respiratory c are staff consulted; no adverse overnight events reported to me; remains on MVS; agitated; secretions thick and mucoid; no emesis or overt aspiration; follows simple commands intermittently (Delirious) Objective Vital Signs - 12hr 11/30/21 11/30/21 11/30/21 01:49 02:01 03:01 Temperature Pulse Rate 52 L 51 L 54 L Pulse Rate [ Anterior Bilateral Throughout] Pulse Rate [ From Monitor] Respiratory 16 16 Rate Respiratory Rate [Anterior Bilateral Throughout] Blood Pressure 142/58 152/64 O2 Sat by Pulse 98 96 94 Oximetry 11/30/21 11/30/21 11/30/21 04:00 04:01 05:01 Temperature 98.2 F Pulse Rate 59 L 59 L 59 L Pulse Rate [ Anterior Bilateral Throughout] Pulse Rate [ 59 L From Monitor] Respiratory 17 17 16 Rate Respiratory Rate [Anterior Bilateral Throughout] Blood Pressure 149/62 135/59 O2 Sat by Pulse 96 96 93 Oximetry 11/30/21 11/30/21 11/30/21 05:36 06:01 07:01 Temperature Pulse Rate 56 L 56 L 56 L Pulse Rate [ Anterior Bilateral Throughout] Pulse Rate [ From Monitor] Respiratory 16 16 Rate Respiratory Rate [Anterior Bilateral Throughout] Blood Pressure 129/57 127/56 113/59 O2 Sat by Pulse 97 94 94 Oximetry 11/30/21 11/30/21 11/30/21 08:00 08:01 08:23 Temperature 98.4 F Pulse Rate 54 L 50 L 54 L Pulse Rate [ 59 L Anterior Bilateral Throughout] Pulse Rate [ From Monitor] Respiratory 16 14 Rate Respiratory 18 Rate [Anterior Bilateral Throughout] Blood Pressure 143/61 O2 Sat by Pulse 95 96 97 Oximetry 11/30/21 11/30/21 11/30/21 09:01 10:01 10:09 Temperature Pulse Rate 55 L 57 L 56 L Pulse Rate [ Anterior Bilateral Throughout] Pulse Rate [ From Monitor] Respiratory 16 14 Rate Respiratory Rate [Anterior Bilateral Throughout] Blood Pressure 143/65 143/65 140/65 O2 Sat by Pulse 95 96 Oximetry 11/30/21 11/30/21 11/30/21 11:01 12:00 12:01 Temperature Pulse Rate 56 L 67 93 H Pulse Rate [ Anterior Bilateral Throughout] Pulse Rate [ From Monitor] Respiratory 17 26 H Rate Respiratory Rate [Anterior Bilateral Throughout] Blood Pressure 149/68 149/68 O2 Sat by Pulse 93 95 Oximetry Constitutional: appears uncomfortable, other (elderly obese female with mildly increased respiratory effort at rest on MVS) Eyes: non-icteric ENT: oropharynx moist, other (ETT 24 cm EMIL) Neck: supple, no lymphadenopathy, no JVD, other (large circumference) Effort: mildly labored Ascultation: Bilateral: diminished breath sounds, rhonchi Percussion: Bilateral: not dull Cardiovascular: regular rate and rhythm Gastrointestinal: normoactive bowel sounds, soft, non-tender, non-distended (protuberant) Integumentary: normal Extremities: no cyanosis, no edema, pulses normal, no ischemia or petechiae Neurologic: non-focal exam (grossly), pupils equal and round, CN II-XII normal Psychiatric: anxious, other (delirious) CBC and BMP: 12/01/21 04:00 12/01/21 04:00 ABG, PT/INR, D-dimer: ABG ABG pH 7.442 (7.320-7.450) 11/29/21 03:51 POC ABG pCO2 54.1 mmHg (32.0-48.0) H 11/29/21 03:51 ABG pCO2 64.5 mm Hg 11/26/21 10:28 POC ABG pO2 70.6 mmHg (83-108) L 11/29/21 03:51 ABG pO2 66.5 mm Hg (80.0-90.0) L 11/26/21 10:28 POC ABG HCO3 36.1 11/29/21 03:51 ABG O2 Saturation 94.4 (0-100) 11/29/21 03:51 PT/INR, D-dimer PT 12.9 Sec. (12.2-14.9) 11/18/21 00:19 INR 0.88 (0.87-1.13) 11/18/21 00:19 D-Dimer 464.80 ng/mlDDU (0-234) H 11/18/21 05:15 Abnormal lab findings: Abnormal Labs 11/18/21 11/18/21 11/18/21 00:01 00:19 00:19 WBC 15.6 H RBC 5.59 H Hgb 14.8 H Hct 49.8 H MCH 27 L MCHC RDW 16.9 H Plt Count Lymph % (Auto) Barton % (Auto) Lymph # (Auto) Barton # (Auto) Seg Neutrophils % Lymphocytes % (Manual) 4.0 L Seg Neutrophils # Seg Neutrophils # Man 14.7 H Lymphocytes # (Manual) 0.6 L D-Dimer ABG pH POC ABG pCO2 POC ABG pO2 ABG pO2 ABG HCO3 ABG O2 Saturation ABG Base Excess ABG Hemoglobin ABG Oxyhemoglobin ABG Sodium ABG Glucose Oxyhemoglobin Carboxyhemoglobin Sodium Potassium Carbon Dioxide BUN Creatinine Glucose 148 H POC Glucose 151 H Calcium Phosphorus Magnesium Lactate Dehydrogenase Triglycerides Arterial Blood Glucose Arterial Blood Ionized Calcium Urine WBC (Auto) Salicylates Acetaminophen 11/18/21 11/18/21 11/18/21 00:19 00:19 00:19 WBC RBC Hgb Hct MCH MCHC RDW Plt Count Lymph % (Auto) Barton % (Auto) Lymph # (Auto) [place] # (Auto) Seg Neutrophils % Lymphocytes % (Manual) Seg Neutrophils # Seg Neutrophils # Man Lymphocytes # (Manual) D-Dimer ABG pH POC ABG pCO2 POC ABG pO2 ABG pO2 ABG HCO3 ABG O2 Saturation ABG Base Excess ABG Hemoglobin ABG Oxyhemoglobin ABG Sodium ABG Glucose Oxyhemoglobin Carboxyhemoglobin Sodium Potassium Carbon Dioxide BUN Creatinine Glucose POC Glucose Calcium Phosphorus Magnesium 2.50 H Lactate Dehydrogenase Triglycerides Arterial Blood Glucose Arterial Blood Ionized Calcium Urine WBC (Auto) Salicylates < 0.3 L Acetaminophen 5.0 L 11/18/21 11/18/21 11/18/21 01:03 02:00 05:15 WBC RBC Hgb Hct MCH MCHC RDW Plt Count Lymph % (Auto) Barton % (Auto) Lymph # (Auto) [place] # (Auto) Seg Neutrophils % Lymphocytes % (Manual) Seg Neutrophils # Seg Neutrophils # Man Lymphocytes # (Manual) D-Dimer 464.80 H ABG pH POC ABG pCO2 POC ABG pO2 ABG pO2 ABG HCO3 35.8 H ABG O2 Saturation ABG Base Excess 7.8 H ABG Hemoglobin ABG Oxyhemoglobin ABG Sodium ABG Glucose Oxyhemoglobin 91.9 L Carboxyhemoglobin Sodium Potassium Carbon Dioxide BUN Creatinine Glucose POC Glucose Calcium Phosphorus Magnesium Lactate Dehydrogenase Triglycerides Arterial Blood Glucose Arterial Blood Ionized Calcium Urine WBC (Auto) 16.0 H Salicylates Acetaminophen 11/18/21 11/18/2121 05:15 15:47 15:47 WBC 13.5 H RBC 5.60 H Hgb 14.9 H Hct 49.1 H MCH 27 L MCHC RDW 17.3 H Plt Count Lymph % (Auto) 7.9 L Barton % (Auto) 10.1 H Lymph # (Auto) 1.1 L Barton # (Auto) 1.4 H Seg Neutrophils % 81.7 H Lymphocytes % (Manual) Seg Neutrophils # 11.0 H Seg Neutrophils # Man Lymphocytes # (Manual) D-Dimer ABG pH POC ABG pCO2 POC ABG pO2 ABG pO2 ABG HCO3 ABG O2 Saturation ABG Base Excess ABG Hemoglobin ABG Oxyhemoglobin ABG Sodium ABG Glucose Oxyhemoglobin Carboxyhemoglobin Sodium Potassium Carbon Dioxide BUN Creatinine Glucose 138 H POC Glucose Calcium Phosphorus Magnesium Lactate Dehydrogenase 275 H Triglycerides Arterial Blood Glucose Arterial Blood Ionized Calcium Urine WBC (Auto) Salicylates Acetaminophen 11/18/21 11/18/21 11/19/21 18:45 23:33 04:58 WBC RBC Hgb Hct MCH MCHC RDW Plt Count Lymph % (Auto) Barton % (Auto) Lymph # (Auto) [place] # (Auto) Seg Neutrophils % Lymphocytes % (Manual) Seg Neutrophils # Seg Neutrophils # Man Lymphocytes # (Manual) D-Dimer ABG pH POC ABG pCO2 POC ABG pO2 ABG pO2 ABG HCO3 ABG O2 Saturation ABG Base Excess ABG Hemoglobin ABG Oxyhemoglobin ABG Sodium ABG Glucose Oxyhemoglobin Carboxyhemoglobin Sodium Potassium Carbon Dioxide BUN Creatinine Glucose 130 H POC Glucose 132 H 113 H Calcium Phosphorus Magnesium Lactate Dehydrogenase Triglycerides Arterial Blood Glucose Arterial Blood Ionized Calcium Urine WBC (Auto) Salicylates Acetaminophen 11/19/21 11/19/21 11/19/21 07:59 07:59 08:55 WBC 12.7 H RBC 5.29 H Hgb Hct 45.5 H MCH 26 L MCHC RDW 17.4 H Plt Count Lymph % (Auto) 12.3 L Barton % (Auto) 9.6 H Lymph # (Auto) Barton # (Auto) 1.2 H Seg Neutrophils % 76.9 H Lymphocytes % (Manual) Seg Neutrophils # 9.7 H Seg Neutrophils # Man Lymphocytes # (Manual) D-Dimer ABG pH 7.518 H POC ABG pCO2 POC ABG pO2 ABG pO2 77.6 L ABG HCO3 30.1 H ABG O2 Saturation ABG Base Excess 6.9 H ABG Hemoglobin ABG Oxyhemoglobin ABG Sodium ABG Glucose Oxyhemoglobin Carboxyhemoglobin Sodium Potassium 3.1 L D Carbon Dioxide BUN Creatinine Glucose 115 H POC Glucose Calcium 8.1 L Phosphorus Magnesium Lactate Dehydrogenase Triglycerides Arterial Blood Glucose Arterial Blood Ionized Calcium Urine WBC (Auto) Salicylates Acetaminophen 11/19/21 11/19/21 11/20/21 11:33 16:22 04:20 WBC 13.9 H RBC 5.44 H Hgb Hct 49.3 H MCH 26 L MCHC 29 L RDW 18.3 H Plt Count Lymph % (Auto) Barton % (Auto) Lymph # (Auto) [place] # (Auto) Seg Neutrophils % Lymphocytes % (Manual) Seg Neutrophils # Seg Neutrophils # Man Lymphocytes # (Manual) D-Dimer ABG pH POC ABG pCO2 POC ABG pO2 ABG pO2 ABG HCO3 ABG O2 Saturation ABG Base Excess ABG Hemoglobin ABG Oxyhemoglobin ABG Sodium ABG Glucose Oxyhemoglobin Carboxyhemoglobin Sodium Potassium Carbon Dioxide BUN Creatinine Glucose POC Glucose 119 H 112 H Calcium Phosphorus Magnesium Lactate Dehydrogenase Triglycerides Arterial Blood Glucose Arterial Blood Ionized Calcium Urine WBC (Auto) Salicylates Acetaminophen 11/20/21 11/20/21 11/20/21 04:20 11:07 12:02 WBC RBC Hgb Hct MCH MCHC RDW Plt Count Lymph % (Auto) Barton % (Auto) Lymph # (Auto) [place] # (Auto) Seg Neutrophils % Lymphocytes % (Manual) Seg Neutrophils # Seg Neutrophils # Man Lymphocytes # (Manual) D-Dimer ABG pH 7.251 L POC ABG pCO2 POC ABG pO2 ABG pO2 66.3 L ABG HCO3 30.2 H ABG O2 Saturation 91.8 L ABG Base Excess ABG Hemoglobin ABG Oxyhemoglobin ABG Sodium ABG Glucose Oxyhemoglobin 89.4 L Carboxyhemoglobin Sodium 147 H Potassium Carbon Dioxide BUN 25 H Creatinine Glucose POC Glucose 118 H Calcium Phosphorus 6.40 H Magnesium Lactate Dehydrogenase Triglycerides Arterial Blood Glucose Arterial Blood Ionized Calcium Urine WBC (Auto) Salicylates Acetaminophen 11/20/21 11/21/21 11/21/21 17:31 00:07 04:44 WBC 14.0 H RBC 5.08 H Hgb Hct 44.7 H MCH 26 L MCHC 29 L RDW 17.8 H Plt Count Lymph % (Auto) Barton % (Auto) Lymph # (Auto) [place] # (Auto) Seg Neutrophils % Lymphocytes % (Manual) Seg Neutrophils # Seg Neutrophils # Man Lymphocytes # (Manual) D-Dimer ABG pH POC ABG pCO2 POC ABG pO2 ABG pO2 ABG HCO3 ABG O2 Saturation ABG Base Excess ABG Hemoglobin ABG Oxyhemoglobin ABG Sodium ABG Glucose Oxyhemoglobin Carboxyhemoglobin Sodium Potassium Carbon Dioxide BUN Creatinine Glucose POC Glucose 139 H 147 H Calcium Phosphorus Magnesium Lactate Dehydrogenase Triglycerides Arterial Blood Glucose Arterial Blood Ionized Calcium Urine WBC (Auto) Salicylates Acetaminophen 11/21/21 11/21/21 11/21/21 04:44 06:06 11:45 WBC RBC Hgb Hct MCH MCHC RDW Plt Count Lymph % (Auto) Barton % (Auto) Lymph # (Auto) [place] # (Auto) Seg Neutrophils % Lymphocytes % (Manual) Seg Neutrophils # Seg Neutrophils # Man Lymphocytes # (Manual) D-Dimer ABG pH POC ABG pCO2 POC ABG pO2 ABG pO2 ABG HCO3 ABG O2 Saturation ABG Base Excess ABG Hemoglobin ABG Oxyhemoglobin ABG Sodium ABG Glucose Oxyhemoglobin Carboxyhemoglobin Sodium Potassium Carbon Dioxide BUN 20 H Creatinine Glucose 157 H POC Glucose 158 H 119 H Calcium Phosphorus Magnesium Lactate Dehydrogenase Triglycerides Arterial Blood Glucose Arterial Blood Ionized Calcium Urine WBC (Auto) Salicylates Acetaminophen 11/21/21 11/21/21 11/22/21 11:50 16:54 00:03 WBC RBC Hgb Hct MCH MCHC RDW Plt Count Lymph % (Auto) Barton % (Auto) Lymph # (Auto) [place] # (Auto) Seg Neutrophils % Lymphocytes % (Manual) Seg Neutrophils # Seg Neutrophils # Man Lymphocytes # (Manual) D-Dimer ABG pH POC ABG pCO2 POC ABG pO2 ABG pO2 61.8 L ABG HCO3 35.2 H ABG O2 Saturation 92.8 L ABG Base Excess 8.1 H ABG Hemoglobin ABG Oxyhemoglobin ABG Sodium ABG Glucose Oxyhemoglobin 90.6 L Carboxyhemoglobin Sodium Potassium Carbon Dioxide BUN Creatinine Glucose POC Glucose 149 H 133 H Calcium Phosphorus Magnesium Lactate Dehydrogenase Triglycerides Arterial Blood Glucose Arterial Blood Ionized Calcium Urine WBC (Auto) Salicylates Acetaminophen 11/22/21 11/22/21 11/22/21 04:39 04:39 04:39 WBC 14.1 H RBC Hgb Hct 43.4 H MCH 26 L MCHC RDW 17.9 H Plt Count Lymph % (Auto) Barton % (Auto) Lymph # (Auto) [place] # (Auto) Seg Neutrophils % Lymphocytes % (Manual) Seg Neutrophils # Seg Neutrophils # Man Lymphocytes # (Manual) D-Dimer ABG pH POC ABG pCO2 POC ABG pO2 ABG pO2 ABG HCO3 ABG O2 Saturation ABG Base Excess ABG Hemoglobin ABG Oxyhemoglobin ABG Sodium ABG Glucose Oxyhemoglobin Carboxyhemoglobin Sodium Potassium Carbon Dioxide 33 H BUN Creatinine Glucose 152 H POC Glucose Calcium Phosphorus Magnesium Lactate Dehydrogenase Triglycerides 185 H Arterial Blood Glucose Arterial Blood Ionized Calcium Urine WBC (Auto) Salicylates Acetaminophen 11/22/21 11/22/21 11/22/21 05:02 10:56 11:31 WBC RBC Hgb Hct MCH MCHC RDW Plt Count Lymph % (Auto) Barton % (Auto) Lymph # (Auto) [place] # (Auto) Seg Neutrophils % Lymphocytes % (Manual) Seg Neutrophils # Seg Neutrophils # Man Lymphocytes # (Manual) D-Dimer ABG pH POC ABG pCO2 POC ABG pO2 ABG pO2 55.3 L ABG HCO3 39.4 H ABG O2 Saturation 89.5 L ABG Base Excess 11.7 H ABG Hemoglobin ABG Oxyhemoglobin ABG Sodium ABG Glucose Oxyhemoglobin 87.2 L Carboxyhemoglobin Sodium Potassium Carbon Dioxide BUN Creatinine Glucose POC Glucose 158 H 116 H Calcium Phosphorus Magnesium Lactate Dehydrogenase Triglycerides Arterial Blood Glucose Arterial Blood Ionized Calcium Urine WBC (Auto) Salicylates Acetaminophen 11/22/21 11/22/21 11/23/21 17:29 23:22 04:49 WBC 13.6 H RBC 5.18 H Hgb Hct 45.6 H MCH 25 L MCHC 29 L RDW 17.5 H Plt Count Lymph % (Auto) Barton % (Auto) Lymph # (Auto) [place] # (Auto) Seg Neutrophils % Lymphocytes % (Manual) Seg Neutrophils # Seg Neutrophils # Man Lymphocytes # (Manual) D-Dimer ABG pH POC ABG pCO2 POC ABG pO2 ABG pO2 ABG HCO3 ABG O2 Saturation ABG Base Excess ABG Hemoglobin ABG Oxyhemoglobin ABG Sodium ABG Glucose Oxyhemoglobin Carboxyhemoglobin Sodium Potassium Carbon Dioxide BUN Creatinine Glucose POC Glucose 129 H 171 H Calcium Phosphorus Magnesium Lactate Dehydrogenase Triglycerides Arterial Blood Glucose Arterial Blood Ionized Calcium Urine WBC (Auto) Salicylates Acetaminophen 11/23/21 11/23/21 11/23/21 04:49 11:53 16:22 WBC RBC Hgb Hct MCH MCHC RDW Plt Count Lymph % (Auto) Barton % (Auto) Lymph # (Auto) [place] # (Auto) Seg Neutrophils % Lymphocytes % (Manual) Seg Neutrophils # Seg Neutrophils # Man Lymphocytes # (Manual) D-Dimer ABG pH POC ABG pCO2 POC ABG pO2 ABG pO2 61.8 L ABG HCO3 40.9 H ABG O2 Saturation 93.4 L ABG Base Excess 14.6 H ABG Hemoglobin 6.9 L ABG Oxyhemoglobin ABG Sodium ABG Glucose Oxyhemoglobin 90.2 L Carboxyhemoglobin Sodium 146 H Potassium Carbon Dioxide 36 H BUN 21 H Creatinine Glucose 155 H POC Glucose 166 H Calcium Phosphorus Magnesium Lactate Dehydrogenase Triglycerides Arterial Blood Glucose Arterial Blood Ionized Calcium Urine WBC (Auto) Salicylates Acetaminophen 11/23/21 11/23/21 11/24/21 17:11 23:07 05:03 WBC RBC Hgb Hct MCH MCHC RDW Plt Count Lymph % (Auto) Barton % (Auto) Lymph # (Auto) [place] # (Auto) Seg Neutrophils % Lymphocytes % (Manual) Seg Neutrophils # Seg Neutrophils # Man Lymphocytes # (Manual) D-Dimer ABG pH POC ABG pCO2 POC ABG pO2 ABG pO2 ABG HCO3 ABG O2 Saturation ABG Base Excess ABG Hemoglobin ABG Oxyhemoglobin ABG Sodium ABG Glucose Oxyhemoglobin Carboxyhemoglobin Sodium Potassium Carbon Dioxide BUN Creatinine Glucose POC Glucose 142 H 197 H 183 H Calcium Phosphorus Magnesium Lactate Dehydrogenase Triglycerides Arterial Blood Glucose Arterial Blood Ionized Calcium Urine WBC (Auto) Salicylates Acetaminophen 11/24/21 11/24/21 11/24/21 08:33 08:33 09:00 WBC RBC Hgb Hct 43.6 H MCH 26 L MCHC RDW 18.0 H Plt Count Lymph % (Auto) [place] % (Auto) Lymph # (Auto) [place] # (Auto) Seg Neutrophils % Lymphocytes % (Manual) Seg Neutrophils # Seg Neutrophils # Man Lymphocytes # (Manual) D-Dimer ABG pH POC ABG pCO2 POC ABG pO2 ABG pO2 69.1 L ABG HCO3 40.1 H ABG O2 Saturation 93.2 L ABG Base Excess 11.9 H ABG Hemoglobin ABG Oxyhemoglobin ABG Sodium ABG Glucose Oxyhemoglobin 90.3 L Carboxyhemoglobin Sodium Potassium 5.3 H D Carbon Dioxide 36 H BUN 25 H Creatinine 0.5 L Glucose 185 H POC Glucose Calcium Phosphorus Magnesium Lactate Dehydrogenase Triglycerides Arterial Blood Glucose Arterial Blood Ionized Calcium Urine WBC (Auto) Salicylates Acetaminophen 11/24/21 11/24/21 11/25/21 12:00 18:08 00:50 WBC RBC Hgb Hct MCH MCHC RDW Plt Count Lymph % (Auto) [place] % (Auto) Lymph # (Auto) [place] # (Auto) Seg Neutrophils % Lymphocytes % (Manual) Seg Neutrophils # Seg Neutrophils # Man Lymphocytes # (Manual) D-Dimer ABG pH POC ABG pCO2 POC ABG pO2 ABG pO2 67.3 L ABG HCO3 41.6 H 42.7 H ABG O2 Saturation 94.5 L ABG Base Excess 12.3 H 14.7 H ABG Hemoglobin ABG Oxyhemoglobin ABG Sodium ABG Glucose Oxyhemoglobin 93.1 L 91.6 L Carboxyhemoglobin Sodium Potassium Carbon Dioxide BUN Creatinine Glucose POC Glucose 168 H Calcium Phosphorus Magnesium Lactate Dehydrogenase Triglycerides Arterial Blood Glucose Arterial Blood Ionized Calcium Urine WBC (Auto) Salicylates Acetaminophen 11/25/21 11/25/21 11/25/21 04:57 04:57 14:18 WBC RBC 5.13 H Hgb Hct 45.1 H MCH 26 L MCHC RDW 17.7 H Plt Count Lymph % (Auto) [place] % (Auto) Lymph # (Auto) [place] # (Auto) Seg Neutrophils % Lymphocytes % (Manual) Seg Neutrophils # Seg Neutrophils # Man Lymphocytes # (Manual) D-Dimer ABG pH POC ABG pCO2 POC ABG pO2 ABG pO2 65.1 L ABG HCO3 41.7 H ABG O2 Saturation 94.2 L ABG Base Excess 13.4 H ABG Hemoglobin ABG Oxyhemoglobin ABG Sodium ABG Glucose Oxyhemoglobin 91.3 L Carboxyhemoglobin Sodium 146 H Potassium Carbon Dioxide 38 H BUN 26 H Creatinine 0.5 L Glucose 210 H POC Glucose Calcium Phosphorus Magnesium Lactate Dehydrogenase Triglycerides Arterial Blood Glucose Arterial Blood Ionized Calcium Urine WBC (Auto) Salicylates Acetaminophen 11/25/21 11/26/21 11/26/21 19:22 04:28 04:28 WBC RBC 5.05 H Hgb Hct 44.0 H MCH 26 L MCHC RDW 17.6 H Plt Count Lymph % (Auto) [place] % (Auto) Lymph # (Auto) [place] # (Auto) Seg Neutrophils % Lymphocytes % (Manual) Seg Neutrophils # Seg Neutrophils # Man Lymphocytes # (Manual) D-Dimer ABG pH POC ABG pCO2 POC ABG pO2 ABG pO2 ABG HCO3 ABG O2 Saturation ABG Base Excess ABG Hemoglobin ABG Oxyhemoglobin ABG Sodium ABG Glucose Oxyhemoglobin Carboxyhemoglobin Sodium 146 H Potassium Carbon Dioxide 38 H BUN 30 H Creatinine Glucose 124 H POC Glucose 151 H Calcium 10.5 H Phosphorus Magnesium Lactate Dehydrogenase Triglycerides Arterial Blood Glucose Arterial Blood Ionized Calcium Urine WBC (Auto) Salicylates Acetaminophen 11/26/21 11/26/21 11/27/21 05:50 10:28 08:31 WBC 12.4 H RBC 5.62 H Hgb 14.6 H Hct 48.7 H MCH 26 L MCHC RDW 17.9 H Plt Count 469 H Lymph % (Auto) [place] % (Auto) Lymph # (Auto) [place] # (Auto) Seg Neutrophils % Lymphocytes % (Manual) Seg Neutrophils # Seg Neutrophils # Man Lymphocytes # (Manual) D-Dimer ABG pH POC ABG pCO2 POC ABG pO2 ABG pO2 66.5 L ABG HCO3 39.6 H ABG O2 Saturation 92.9 L ABG Base Excess 11.4 H ABG Hemoglobin 16.8 H ABG Oxyhemoglobin ABG Sodium ABG Glucose Oxyhemoglobin 90.3 L Carboxyhemoglobin Sodium Potassium Carbon Dioxide BUN Creatinine Glucose POC Glucose 121 H Calcium Phosphorus Magnesium Lactate Dehydrogenase Triglycerides Arterial Blood Glucose Arterial Blood Ionized Calcium Urine WBC (Auto) Salicylates Acetaminophen 11/27/21 11/27/21 11/27/21 08:31 09:46 11:49 WBC RBC Hgb Hct MCH MCHC RDW Plt Count Lymph % (Auto) [place] % (Auto) Lymph # (Auto) [place] # (Auto) Seg Neutrophils % Lymphocytes % (Manual) Seg Neutrophils # Seg Neutrophils # Man Lymphocytes # (Manual) D-Dimer ABG pH POC ABG pCO2 POC ABG pO2 ABG pO2 ABG HCO3 ABG O2 Saturation ABG Base Excess ABG Hemoglobin ABG Oxyhemoglobin ABG Sodium ABG Glucose Oxyhemoglobin Carboxyhemoglobin Sodium 150 H Potassium Carbon Dioxide 33 H BUN 31 H Creatinine Glucose 135 H POC Glucose 140 H 153 H Calcium 11.0 H Phosphorus Magnesium Lactate Dehydrogenase Triglycerides Arterial Blood Glucose Arterial Blood Ionized Calcium Urine WBC (Auto) Salicylates Acetaminophen 11/27/21 11/27/21 11/27/21 14:16 17:14 23:25 WBC RBC Hgb Hct MCH MCHC RDW Plt Count Lymph % (Auto) [place] % (Auto) Lymph # (Auto) [place] # (Auto) Seg Neutrophils % Lymphocytes % (Manual) Seg Neutrophils # Seg Neutrophils # Man Lymphocytes # (Manual) D-Dimer ABG pH 7.485 H POC ABG pCO2 48.7 H POC ABG pO2 74.5 L ABG pO2 ABG HCO3 ABG O2 Saturation ABG Base Excess ABG Hemoglobin ABG Oxyhemoglobin ABG Sodium 145.5 H ABG Glucose 153 H Oxyhemoglobin Carboxyhemoglobin 1.6 H Sodium Potassium Carbon Dioxide BUN Creatinine Glucose POC Glucose 142 H 123 H Calcium Phosphorus Magnesium Lactate Dehydrogenase Triglycerides Arterial Blood Glucose 153 H Arterial Blood Ionized Calcium 5.4 H Urine WBC (Auto) Salicylates Acetaminophen 11/28/21 11/28/21 11/28/21 03:38 03:38 05:16 WBC RBC 5.05 H Hgb Hct 43.6 H MCH 26 L MCHC RDW 17.8 H Plt Count Lymph % (Auto) [place] % (Auto) Lymph # (Auto) [place] # (Auto) Seg Neutrophils % Lymphocytes % (Manual) Seg Neutrophils # Seg Neutrophils # Man Lymphocytes # (Manual) D-Dimer ABG pH POC ABG pCO2 POC ABG pO2 ABG pO2 ABG HCO3 ABG O2 Saturation ABG Base Excess ABG Hemoglobin ABG Oxyhemoglobin ABG Sodium ABG Glucose Oxyhemoglobin Carboxyhemoglobin Sodium 150 H Potassium Carbon Dioxide 32 H BUN 51 H Creatinine Glucose 143 H POC Glucose 138 H Calcium 10.5 H Phosphorus Magnesium Lactate Dehydrogenase Triglycerides Arterial Blood Glucose Arterial Blood Ionized Calcium Urine WBC (Auto) Salicylates Acetaminophen 11/28/21 11/28/21 11/29/21 17:01 23:51 03:51 WBC RBC Hgb Hct MCH MCHC RDW Plt Count Lymph % (Auto) [place] % (Auto) Lymph # (Auto) [place] # (Auto) Seg Neutrophils % Lymphocytes % (Manual) Seg Neutrophils # Seg Neutrophils # Man Lymphocytes # (Manual) D-Dimer ABG pH POC ABG pCO2 54.1 H POC ABG pO2 70.6 L ABG pO2 ABG HCO3 ABG O2 Saturation ABG Base Excess ABG Hemoglobin ABG Oxyhemoglobin 93.1 L ABG Sodium ABG Glucose 144 H Oxyhemoglobin Carboxyhemoglobin Sodium Potassium Carbon Dioxide BUN Creatinine Glucose POC Glucose 145 H 130 H Calcium Phosphorus Magnesium Lactate Dehydrogenase Triglycerides Arterial Blood Glucose 144 H Arterial Blood Ionized Calcium Urine WBC (Auto) Salicylates Acetaminophen 11/29/21 11/29/21 11/29/21 05:51 05:51 12:09 WBC 11.1 H RBC Hgb Hct MCH 26 L MCHC RDW 17.8 H Plt Count Lymph % (Auto) [place] % (Auto) Lymph # (Auto) Barton # (Auto) Seg Neutrophils % Lymphocytes % (Manual) Seg Neutrophils # Seg Neutrophils # Man Lymphocytes # (Manual) D-Dimer ABG pH POC ABG pCO2 POC ABG pO2 ABG pO2 ABG HCO3 ABG O2 Saturation ABG Base Excess ABG Hemoglobin ABG Oxyhemoglobin ABG Sodium ABG Glucose Oxyhemoglobin Carboxyhemoglobin Sodium Potassium Carbon Dioxide 31 H BUN 42 H Creatinine Glucose 133 H POC Glucose 157 H Calcium Phosphorus Magnesium Lactate Dehydrogenase Triglycerides Arterial Blood Glucose Arterial Blood Ionized Calcium Urine WBC (Auto) Salicylates Acetaminophen 11/29/21 11/30/21 11/30/21 17:27 00:23 04:42 WBC RBC 5.05 H Hgb Hct 43.6 H MCH 26 L MCHC RDW 17.5 H Plt Count Lymph % (Auto) Barton % (Auto) Lymph # (Auto) Barton # (Auto) Seg Neutrophils % Lymphocytes % (Manual) Seg Neutrophils # Seg Neutrophils # Man Lymphocytes # (Manual) D-Dimer ABG pH POC ABG pCO2 POC ABG pO2 ABG pO2 ABG HCO3 ABG O2 Saturation ABG Base Excess ABG Hemoglobin ABG Oxyhemoglobin ABG Sodium ABG Glucose Oxyhemoglobin Carboxyhemoglobin Sodium Potassium Carbon Dioxide BUN Creatinine Glucose POC Glucose 164 H 192 H Calcium Phosphorus Magnesium Lactate Dehydrogenase Triglycerides Arterial Blood Glucose Arterial Blood Ionized Calcium Urine WBC (Auto) Salicylates Acetaminophen 11/30/21 11/30/21 04:42 11:27 WBC RBC Hgb Hct MCH MCHC RDW Plt Count Lymph % (Auto) Barton % (Auto) Lymph # (Auto) Barton # (Auto) Seg Neutrophils % Lymphocytes % (Manual) Seg Neutrophils # Seg Neutrophils # Man Lymphocytes # (Manual) D-Dimer ABG pH POC ABG pCO2 POC ABG pO2 ABG pO2 ABG HCO3 ABG O2 Saturation ABG Base Excess ABG Hemoglobin ABG Oxyhemoglobin ABG Sodium ABG Glucose Oxyhemoglobin Carboxyhemoglobin Sodium Potassium Carbon Dioxide BUN 32 H Creatinine 0.5 L Glucose 178 H POC Glucose 156 H Calcium Phosphorus Magnesium Lactate Dehydrogenase Triglycerides Arterial Blood Glucose Arterial Blood Ionized Calcium Urine WBC (Auto) Salicylates Acetaminophen Chest x-ray: image reviewed Allied health notes reviewed: nursing
[2021-11-30] MEDS: fentaNYL DRIP Premix 2,000 MCG/100 ML BAG IV SCH ×2 (14:50→22:48)
[2021-11-30] MEDS: SCOPOLAMINE TRANSDERMAL PATCH 72 HR TD SCH (14:55)
[2021-11-30] MEDS ORDERED: ACETYLCYSTEINE 20% SOLN 4ML (200 MG/ML) IH SCH (15:00)
[2021-11-30] MEDS: IPRATROPIUM/ALBUTEROL SULFATE 3 ML AMPUL.NEB IH SCH ×2 (16:30→22:04)
[2021-11-30] MEDS ORDERED: QUEtiapine 100 MG TAB PO ONE (17:49)
[2021-11-30] MEDS: ACETYLCYSTEINE 20% 200 MG/1 ML *FOR INHALATION USE INHALATION SCH (22:07)
[2021-11-30] MEDS: QUEtiapine 200 MG TAB PO SCH (22:47)
[2021-11-30] MEDS: ENOXAPARIN 40 MG/0.4 ML INJ SUB-Q SCH (22:48)
[2021-12-01] MEDS: methylPREDNISolone Sod Succinate 40 MG/1 ML INJ IV SCH ×2 (01:53→09:25)
[2021-12-01] MEDS: INSULIN LISPRO 100 UNIT/ML SUB-Q SCH ×5 (01:53→17:05)
[2021-12-01] MEDS: IPRATROPIUM/ALBUTEROL SULFATE 3 ML AMPUL.NEB IH SCH ×4 (02:55→20:08)
[2021-12-01] MEDS: ACETYLCYSTEINE 20% 200 MG/1 ML *FOR INHALATION USE INHALATION SCH ×4 (02:55→20:08)
--- NOTE | 2021-12-01 03:34 | XRay Report ---
CHEST 1 VIEW INDICATION / CLINICAL INFORMATION: follow up respiratory failure. COMPARISON: 11/30/2021 FINDINGS: SUPPORT DEVICES: Stable, satisfactory device positioning. HEART / MEDIASTINUM: Stable cardiomegaly. LUNGS / PLEURA: Persistence of left basilar pleural-parenchymal disease. The lungs are otherwise nisha sly clear. No pneumothorax. ADDITIONAL FINDINGS: No significant additional findings. IMPRESSION: 1. Stable appearance of the chest radiograph. Signer Name: Karena Sarmiento MD Signed: 12/01/2021 3:29 AM Workstation Name: [id number]
[2021-12-01] MEDS: fentaNYL DRIP Premix 2,000 MCG/100 ML BAG IV SCH (05:55)
[2021-12-01 05:56] LABS: Mean Corpuscular HGB Conc 30 % (30-34); Mean Corpuscular Volume 87 fl (79-97); Platelet Count 455 K/mm3 (140-440); Red Blood Count 4.78 M/mm3 (3.65-5.03); Red Cell Distribution Width 17.6 % (13.2-15.2)
[2021-12-01 06:10] LABS: Blood Urea Nitrogen 36 mg/dL (7-17); Calcium 10.1 mg/dL (8.4-10.2); Hemolysis Index 2
[2021-12-01 06:20] LABS: Hematocrit 41.3 % (30.3-42.9); Hemoglobin 12.4 gm/dl (10.1-14.3)
[2021-12-01 06:26] LABS: BUN/Creatinine Ratio 72
[2021-12-01] MEDS: BUDESONIDE 0.5 MG/2 ML NEBU IH SCH ×2 (09:13→20:08)
[2021-12-01] MEDS: ARFORMOTEROL 15 MCG/2 ML NEBU IH SCH ×2 (09:13→20:08)
[2021-12-01] MEDS ORDERED: methylPREDNISolone Sod Succinate 125 MG/2 ML INJ ONE (09:20)
[2021-12-01] MEDS: amLODIPine 10 MG TAB PO SCH (09:23)
[2021-12-01] MEDS: SENNOSIDES/DOCUSATE SODIUM 8.6/50 MG TAB FEEDTUBE SCH ×2 (09:23→21:36)
[2021-12-01] MEDS: QUEtiapine 200 MG TAB PO SCH ×2 (09:24→21:36)
[2021-12-01] MEDS: FAMOTIDINE 20 MG TAB FEEDTUBE SCH ×2 (09:24→21:37)
[2021-12-01] MEDS: busPIRone 5 MG TAB PO SCH ×2 (09:24→21:35)
[2021-12-01] MEDS: ASPIRIN EC 81 MG TAB PO SCH (09:24)
[2021-12-01] MEDS: carvediloL 12.5 MG TAB FEEDTUBE SCH ×2 (09:24→21:37)
[2021-12-01] MEDS: GABAPENTIN 400 MG CAP PO SCH ×2 (11:39→21:35)
--- NOTE | 2021-12-01 11:51 | Progress Note ---
Assessment and Plan Acute exacerbation of chronic obstructive lung disease Acute hypoxemic respiratory failure Acute congestive heart failure exacerbation (? Flash Pulmonary edema) Community-acquired pneumonia Leukocytosis History of coronary artery disease Gastroesophageal reflux disease Arthritis Hyperlipidemia Obesity Elevated D-dimers Acute toxic metabolic encephalopathy Urinary tract infection Likely pulmonary hypertension Hypertensive emergency - resume home Neurontin dose (600 mg po bid) - get ABG on SBT - extubate to BIPAP if acceptable - continue care as below otherwise; - complete systemic steroids for tentative laryngeal edema (cuff leak better) - continue mucomyst nebs - continue seroquel re: agitation / delirium - Daily SAT and SBT assessment as tolerated - continue to wean supplemental oxygen for target O2 sat's > 90% acutely - VAP bundle addressed - continue lung protective strategies - continue bronchodilators with pulmonary hygiene per RT - wean per pulmonary driven protocols otherwise - avoid nephrotoxins, renally dose all medications - continue accuchecks with glycemic control per SSI (While critically ill target blood glucose of 140-180 mg/dL; avoid hypoglycemia) - sedation prn for target RASS 0 to -1 - continue to avoid benzodiazepine's, reduce the possibility of delirium - completed AB's per ID rec's - prn analgesia per CPOT score - Maintenance of sleep-wake cycle, avoid delirium - continue enteral nutritional support at goal rate as tolerated - G.I. & VTE prophylaxis - PT/OT/ROM exercises - continue mobility protocols for pressure ulcer prophylaxis - Monitor hemodynamics closely - continue other care per attending / other consultants - discharge planning ongoing concurrently COVID SPECIFIC INTERVENTIONS: - COVID-19 test negative .... Re-evaluate in am & prn CONDITION: CRITICAL PROGNOSIS: GUARDED CODE STATUS: FULL CODE The high probability of a clinically significant, sudden or life-threatening deterioration of the [respiratory, cardiovascular & neurologic] system(s) required my full and direct attention, intervention and personal management. The aggregate critical care time was [34] minutes without overlap. Time includes spent on; [x] Data Review and interpretation [x] Patient assessment and monitoring of vital signs [x] Documentation [x] Medication orders and management Subjective Date of service: 12/01/21 Principal diagnosis: AE-COPD; AHRF; CHF (? new onset); CAP; CAD; Obesity; HTNsive Emergency Interval history: Patient is seen today for: AE-COPD; Acute hypoxemic respiratory failure; CHF (? new onset); CAP; CAD; Obesity; HTNsive Emergency Seen and examined at bedside; 24hour events reviewed; nursing and respiratory care staff consulted; no adverse overnight events reported to me; remains on MVS; tolerating SBT well today; secretions moderate; less delirious; no N/V/F/C Objective Vital Signs - 12hr 12/01/21 12/01/21 12/01/21 00:00 00:01 01:01 Temperature 97.4 F L Pulse Rate 55 L 61 60 Pulse Rate [ Anterior Bilateral Throughout] Pulse Rate [ 61 From Monitor] Respiratory 17 Rate Respiratory Rate [Anterior Bilateral Throughout] Blood Pressure 142/58 148/104 O2 Sat by Pulse 100 98 99 Oximetry 12/01/21 12/01/21 12/01/21 02:01 02:56 03:00 Temperature Pulse Rate 62 60 60 Pulse Rate [ Anterior Bilateral Throughout] Pulse Rate [ From Monitor] Respiratory 13 16 Rate Respiratory Rate [Anterior Bilateral Throughout] Blood Pressure 123/56 141/65 O2 Sat by Pulse 100 100 Oximetry 12/01/21 12/01/21 12/01/21 03:03 04:00 05:00 Temperature Pulse Rate 56 L 64 Pulse Rate [ 60 Anterior Bilateral Throughout] Pulse Rate [ 52 L From Monitor] Respiratory 17 12 Rate Respiratory 19 Rate [Anterior Bilateral Throughout] Blood Pressure 127/57 124/58 O2 Sat by Pulse 100 100 Oximetry 12/01/21 12/01/21 12/01/21 06:00 07:00 08:00 Temperature 97.9 F Pulse Rate 62 53 L 49 L Pulse Rate [ Anterior Bilateral Throughout] Pulse Rate [ 53 L From Monitor] Respiratory 15 16 16 Rate Respiratory Rate [Anterior Bilateral Throughout] Blood Pressure 138/64 138/64 126/58 O2 Sat by Pulse 100 100 100 Oximetry 12/01/21 12/01/21 12/01/21 09:00 09:13 09:23 Temperature Pulse Rate 48 L 48 L 57 L Pulse Rate [ 51 L Anterior Bilateral Throughout] Pulse Rate [ From Monitor] Respiratory 16 Rate Respiratory 18 Rate [Anterior Bilateral Throughout] Blood Pressure 130/55 130/65 O2 Sat by Pulse 100 100 Oximetry 12/01/21 12/01/21 12/01/21 09:24 10:00 11:00 Temperature Pulse Rate 58 L 65 77 Pulse Rate [ Anterior Bilateral Throughout] Pulse Rate [ From Monitor] Respiratory 14 18 Rate Respiratory Rate [Anterior Bilateral Throughout] Blood Pressure 130/65 154/65 136/58 O2 Sat by Pulse 98 100 Oximetry 12/01/21 12/01/21 11:10 11:11 Temperature Pulse Rate 65 Pulse Rate [ Anterior Bilateral Throughout] Pulse Rate [ 65 From Monitor] Respiratory 18 Rate Respiratory Rate [Anterior Bilateral Throughout] Blood Pressure O2 Sat by Pulse 100 Oximetry Constitutional: no acute distress, other (elderly obese female with mildly increased respiratory effort at rest on MVS) Eyes: non-icteric ENT: oropharynx moist, other (ETT 24 cm EMIL) Neck: supple, no lymphadenopathy, no JVD, other (large circumference) Effort: mildly labored Ascultation: Bilateral: diminished breath sounds, rhonchi Percussion: Bilateral: not dull Cardiovascular: regular rate and rhythm Gastrointestinal: normoactive bowel sounds, soft, non-tender, non-distended (protuberant) Integumentary: normal Extremities: no cyanosis, no edema, pulses normal, no ischemia or petechiae Neurologic: non-focal exam (grossly), pupils equal and round, CN II-XII normal Psychiatric: mood appropriate, affect normal, other (mild delirium) CBC and BMP: 12/02/21 04:55 12/02/21 04:55 ABG, PT/INR, D-dimer: ABG ABG pH 7.357 (7.320-7.450) 11/30/21 12:04 POC ABG pCO2 60.0 mmHg (32.0-48.0) H 11/30/21 12:04 ABG pCO2 64.5 mm Hg 11/26/21 10:28 POC ABG pO2 68.3 mmHg (83-108) L 11/30/21 12:04 ABG pO2 66.5 mm Hg (80.0-90.0) L 11/26/21 10:28 POC ABG HCO3 32.9 11/30/21 12:04 ABG O2 Saturation 92.3 (0-100) 11/30/21 12:04 PT/INR, D-dimer PT 12.9 Sec. (12.2-14.9) 11/18/21 00:19 INR 0.88 (0.87-1.13) 11/18/21 00:19 D-Dimer 464.80 ng/mlDDU (0-234) H 11/18/21 05:15 Abnormal lab findings: Abnormal Labs 11/18/21 11/18/21 11/18/21 00:01 00:19 00:19 WBC 15.6 H RBC 5.59 H Hgb 14.8 H Hct 49.8 H MCH 27 L MCHC RDW 16.9 H Plt Count Lymph % (Auto) [place] % (Auto) Lymph # (Auto) [place] # (Auto) Seg Neutrophils % Lymphocytes % (Manual) 4.0 L Seg Neutrophils # Seg Neutrophils # Man 14.7 H Lymphocytes # (Manual) 0.6 L D-Dimer ABG pH POC ABG pCO2 POC ABG pO2 ABG pO2 ABG HCO3 ABG O2 Saturation ABG Base Excess ABG Hemoglobin ABG Oxyhemoglobin ABG Sodium ABG Glucose Oxyhemoglobin Carboxyhemoglobin Sodium Potassium Carbon Dioxide BUN Creatinine Glucose 148 H POC Glucose 151 H Calcium Phosphorus Magnesium Lactate Dehydrogenase Triglycerides Arterial Blood Glucose Arterial Blood Ionized Calcium Urine WBC (Auto) Salicylates Acetaminophen 11/18/21 11/18/21 11/18/21 00:19 00:19 00:19 WBC RBC Hgb Hct MCH MCHC RDW Plt Count Lymph % (Auto) [place] % (Auto) Lymph # (Auto) [place] # (Auto) Seg Neutrophils % Lymphocytes % (Manual) Seg Neutrophils # Seg Neutrophils # Man Lymphocytes # (Manual) D-Dimer ABG pH POC ABG pCO2 POC ABG pO2 ABG pO2 ABG HCO3 ABG O2 Saturation ABG Base Excess ABG Hemoglobin ABG Oxyhemoglobin ABG Sodium ABG Glucose Oxyhemoglobin Carboxyhemoglobin Sodium Potassium Carbon Dioxide BUN Creatinine Glucose POC Glucose Calcium Phosphorus Magnesium 2.50 H Lactate Dehydrogenase Triglycerides Arterial Blood Glucose Arterial Blood Ionized Calcium Urine WBC (Auto) Salicylates < 0.3 L Acetaminophen 5.0 L 11/18/21 11/18/21 11/18/21 01:03 02:00 05:15 WBC RBC Hgb Hct MCH MCHC RDW Plt Count Lymph % (Auto) [place] % (Auto) Lymph # (Auto) [place] # (Auto) Seg Neutrophils % Lymphocytes % (Manual) Seg Neutrophils # Seg Neutrophils # Man Lymphocytes # (Manual) D-Dimer 464.80 H ABG pH POC ABG pCO2 POC ABG pO2 ABG pO2 ABG HCO3 35.8 H ABG O2 Saturation ABG Base Excess 7.8 H ABG Hemoglobin ABG Oxyhemoglobin ABG Sodium ABG Glucose Oxyhemoglobin 91.9 L Carboxyhemoglobin Sodium Potassium Carbon Dioxide BUN Creatinine Glucose POC Glucose Calcium Phosphorus Magnesium Lactate Dehydrogenase Triglycerides Arterial Blood Glucose Arterial Blood Ionized Calcium Urine WBC (Auto) 16.0 H Salicylates Acetaminophen 11/18/21 11/18/21 11/18/21 05:15 15:47 15:47 WBC 13.5 H RBC 5.60 H Hgb 14.9 H Hct 49.1 H MCH 27 L MCHC RDW 17.3 H Plt Count Lymph % (Auto) 7.9 L [place] % (Auto) 10.1 H Lymph # (Auto) 1.1 L [place] # (Auto) 1.4 H Seg Neutrophils % 81.7 H Lymphocytes % (Manual) Seg Neutrophils # 11.0 H Seg Neutrophils # Man Lymphocytes # (Manual) D-Dimer ABG pH POC ABG pCO2 POC ABG pO2 ABG pO2 ABG HCO3 ABG O2 Saturation ABG Base Excess ABG Hemoglobin ABG Oxyhemoglobin ABG Sodium ABG Glucose Oxyhemoglobin Carboxyhemoglobin Sodium Potassium Carbon Dioxide BUN Creatinine Glucose 138 H POC Glucose Calcium Phosphorus Magnesium Lactate Dehydrogenase 275 H Triglycerides Arterial Blood Glucose Arterial Blood Ionized Calcium Urine WBC (Auto) Salicylates Acetaminophen 11/18/21 11/18/21 11/19/21 18:45 23:33 04:58 WBC RBC Hgb Hct MCH MCHC RDW Plt Count Lymph % (Auto) [place] % (Auto) Lymph # (Auto) [place] # (Auto) Seg Neutrophils % Lymphocytes % (Manual) Seg Neutrophils # Seg Neutrophils # Man Lymphocytes # (Manual) D-Dimer ABG pH POC ABG pCO2 POC ABG pO2 ABG pO2 ABG HCO3 ABG O2 Saturation ABG Base Excess ABG Hemoglobin ABG Oxyhemoglobin ABG Sodium ABG Glucose Oxyhemoglobin Carboxyhemoglobin Sodium Potassium Carbon Dioxide BUN Creatinine Glucose 130 H POC Glucose 132 H 113 H Calcium Phosphorus Magnesium Lactate Dehydrogenase Triglycerides Arterial Blood Glucose Arterial Blood Ionized Calcium Urine WBC (Auto) Salicylates Acetaminophen 11/19/21 11/19/21 11/19/21 07:59 07:59 08:55 WBC 12.7 H RBC 5.29 H Hgb Hct 45.5 H MCH 26 L MCHC RDW 17.4 H Plt Count Lymph % (Auto) 12.3 L [place] % (Auto) 9.6 H Lymph # (Auto) [place] # (Auto) 1.2 H Seg Neutrophils % 76.9 H Lymphocytes % (Manual) Seg Neutrophils # 9.7 H Seg Neutrophils # Man Lymphocytes # (Manual) D-Dimer ABG pH 7.518 H POC ABG pCO2 POC ABG pO2 ABG pO2 77.6 L ABG HCO3 30.1 H ABG O2 Saturation ABG Base Excess 6.9 H ABG Hemoglobin ABG Oxyhemoglobin ABG Sodium ABG Glucose Oxyhemoglobin Carboxyhemoglobin Sodium Potassium 3.1 L D Carbon Dioxide BUN Creatinine Glucose 115 H POC Glucose Calcium 8.1 L Phosphorus Magnesium Lactate Dehydrogenase Triglycerides Arterial Blood Glucose Arterial Blood Ionized Calcium Urine WBC (Auto) Salicylates Acetaminophen 11/19/21 11/19/21 11/20/21 11:33 16:22 04:20 WBC 13.9 H RBC 5.44 H Hgb Hct 49.3 H MCH 26 L MCHC 29 L RDW 18.3 H Plt Count Lymph % (Auto) [place] % (Auto) Lymph # (Auto) [place] # (Auto) Seg Neutrophils % Lymphocytes % (Manual) Seg Neutrophils # Seg Neutrophils # Man Lymphocytes # (Manual) D-Dimer ABG pH POC ABG pCO2 POC ABG pO2 ABG pO2 ABG HCO3 ABG O2 Saturation ABG Base Excess ABG Hemoglobin ABG Oxyhemoglobin ABG Sodium ABG Glucose Oxyhemoglobin Carboxyhemoglobin Sodium Potassium Carbon Dioxide BUN Creatinine Glucose POC Glucose 119 H 112 H Calcium Phosphorus Magnesium Lactate Dehydrogenase Triglycerides Arterial Blood Glucose Arterial Blood Ionized Calcium Urine WBC (Auto) Salicylates Acetaminophen 11/20/21 11/20/21 11/20/21 04:20 11:07 12:02 WBC RBC Hgb Hct MCH MCHC RDW Plt Count Lymph % (Auto) [place] % (Auto) Lymph # (Auto) [place] # (Auto) Seg Neutrophils % Lymphocytes % (Manual) Seg Neutrophils # Seg Neutrophils # Man Lymphocytes # (Manual) D-Dimer ABG pH 7.251 L POC ABG pCO2 POC ABG pO2 ABG pO2 66.3 L ABG HCO3 30.2 H ABG O2 Saturation 91.8 L ABG Base Excess ABG Hemoglobin ABG Oxyhemoglobin ABG Sodium ABG Glucose Oxyhemoglobin 89.4 L Carboxyhemoglobin Sodium 147 H Potassium Carbon Dioxide BUN 25 H Creatinine Glucose POC Glucose 118 H Calcium Phosphorus 6.40 H Magnesium Lactate Dehydrogenase Triglycerides Arterial Blood Glucose Arterial Blood Ionized Calcium Urine WBC (Auto) Salicylates Acetaminophen 11/20/21 11/21/21 11/21/21 17:31 00:07 04:44 WBC 14.0 H RBC 5.08 H Hgb Hct 44.7 H MCH 26 L MCHC 29 L RDW 17.8 H Plt Count Lymph % (Auto) [place] % (Auto) Lymph # (Auto) [place] # (Auto) Seg Neutrophils % Lymphocytes % (Manual) Seg Neutrophils # Seg Neutrophils # Man Lymphocytes # (Manual) D-Dimer ABG pH POC ABG pCO2 POC ABG pO2 ABG pO2 ABG HCO3 ABG O2 Saturation ABG Base Excess ABG Hemoglobin ABG Oxyhemoglobin ABG Sodium ABG Glucose Oxyhemoglobin Carboxyhemoglobin Sodium Potassium Carbon Dioxide BUN Creatinine Glucose POC Glucose 139 H 147 H Calcium Phosphorus Magnesium Lactate Dehydrogenase Triglycerides Arterial Blood Glucose Arterial Blood Ionized Calcium Urine WBC (Auto) Salicylates Acetaminophen 11/21/21 11/21/21 11/21/21 04:44 06:06 11:45 WBC RBC Hgb Hct MCH MCHC RDW Plt Count Lymph % (Auto) [place] % (Auto) Lymph # (Auto) [place] # (Auto) Seg Neutrophils % Lymphocytes % (Manual) Seg Neutrophils # Seg Neutrophils # Man Lymphocytes # (Manual) D-Dimer ABG pH POC ABG pCO2 POC ABG pO2 ABG pO2 ABG HCO3 ABG O2 Saturation ABG Base Excess ABG Hemoglobin ABG Oxyhemoglobin ABG Sodium ABG Glucose Oxyhemoglobin Carboxyhemoglobin Sodium Potassium Carbon Dioxide BUN 20 H Creatinine Glucose 157 H POC Glucose 158 H 119 H Calcium Phosphorus Magnesium Lactate Dehydrogenase Triglycerides Arterial Blood Glucose Arterial Blood Ionized Calcium Urine WBC (Auto) Salicylates Acetaminophen 11/21/21 11/21/21 11/22/21 11:50 16:54 00:03 WBC RBC Hgb Hct MCH MCHC RDW Plt Count Lymph % (Auto) [place] % (Auto) Lymph # (Auto) [place] # (Auto) Seg Neutrophils % Lymphocytes % (Manual) Seg Neutrophils # Seg Neutrophils # Man Lymphocytes # (Manual) D-Dimer ABG pH POC ABG pCO2 POC ABG pO2 ABG pO2 61.8 L ABG HCO3 35.2 H ABG O2 Saturation 92.8 L ABG Base Excess 8.1 H ABG Hemoglobin ABG Oxyhemoglobin ABG Sodium ABG Glucose Oxyhemoglobin 90.6 L Carboxyhemoglobin Sodium Potassium Carbon Dioxide BUN Creatinine Glucose POC Glucose 149 H 133 H Calcium Phosphorus Magnesium Lactate Dehydrogenase Triglycerides Arterial Blood Glucose Arterial Blood Ionized Calcium Urine WBC (Auto) Salicylates Acetaminophen 11/22/21 11/22/21 11/22/21 04:39 04:39 04:39 WBC 14.1 H RBC Hgb Hct 43.4 H MCH 26 L MCHC RDW 17.9 H Plt Count Lymph % (Auto) [place] % (Auto) Lymph # (Auto) [place] # (Auto) Seg Neutrophils % Lymphocytes % (Manual) Seg Neutrophils # Seg Neutrophils # Man Lymphocytes # (Manual) D-Dimer ABG pH POC ABG pCO2 POC ABG pO2 ABG pO2 ABG HCO3 ABG O2 Saturation ABG Base Excess ABG Hemoglobin ABG Oxyhemoglobin ABG Sodium ABG Glucose Oxyhemoglobin Carboxyhemoglobin Sodium Potassium Carbon Dioxide 33 H BUN Creatinine Glucose 152 H POC Glucose Calcium Phosphorus Magnesium Lactate Dehydrogenase Triglycerides 185 H Arterial Blood Glucose Arterial Blood Ionized Calcium Urine WBC (Auto) Salicylates Acetaminophen 11/22/21 11/22/21 11/22/21 05:02 10:56 11:31 WBC RBC Hgb Hct MCH MCHC RDW Plt Count Lymph % (Auto) [place] % (Auto) Lymph # (Auto) [place] # (Auto) Seg Neutrophils % Lymphocytes % (Manual) Seg Neutrophils # Seg Neutrophils # Man Lymphocytes # (Manual) D-Dimer ABG pH POC ABG pCO2 POC ABG pO2 ABG pO2 55.3 L ABG HCO3 39.4 H ABG O2 Saturation 89.5 L ABG Base Excess 11.7 H ABG Hemoglobin ABG Oxyhemoglobin ABG Sodium ABG Glucose Oxyhemoglobin 87.2 L Carboxyhemoglobin Sodium Potassium Carbon Dioxide BUN Creatinine Glucose POC Glucose 158 H 116 H Calcium Phosphorus Magnesium Lactate Dehydrogenase Triglycerides Arterial Blood Glucose Arterial Blood Ionized Calcium Urine WBC (Auto) Salicylates Acetaminophen 11/22/21 11/22/21 11/23/21 17:29 23:22 04:49 WBC 13.6 H RBC 5.18 H Hgb Hct 45.6 H MCH 25 L MCHC 29 L RDW 17.5 H Plt Count Lymph % (Auto) [place] % (Auto) Lymph # (Auto) [place] # (Auto) Seg Neutrophils % Lymphocytes % (Manual) Seg Neutrophils # Seg Neutrophils # Man Lymphocytes # (Manual) D-Dimer ABG pH POC ABG pCO2 POC ABG pO2 ABG pO2 ABG HCO3 ABG O2 Saturation ABG Base Excess ABG Hemoglobin ABG Oxyhemoglobin ABG Sodium ABG Glucose Oxyhemoglobin Carboxyhemoglobin Sodium Potassium Carbon Dioxide BUN Creatinine Glucose POC Glucose 129 H 171 H Calcium Phosphorus Magnesium Lactate Dehydrogenase Triglycerides Arterial Blood Glucose Arterial Blood Ionized Calcium Urine WBC (Auto) Salicylates Acetaminophen 11/23/21 11/23/21 11/23/21 04:49 11:53 16:22 WBC RBC Hgb Hct MCH MCHC RDW Plt Count Lymph % (Auto) [place] % (Auto) Lymph # (Auto) [place] # (Auto) Seg Neutrophils % Lymphocytes % (Manual) Seg Neutrophils # Seg Neutrophils # Man Lymphocytes # (Manual) D-Dimer ABG pH POC ABG pCO2 POC ABG pO2 ABG pO2 61.8 L ABG HCO3 40.9 H ABG O2 Saturation 93.4 L ABG Base Excess 14.6 H ABG Hemoglobin 6.9 L ABG Oxyhemoglobin ABG Sodium ABG Glucose Oxyhemoglobin 90.2 L Carboxyhemoglobin Sodium 146 H Potassium Carbon Dioxide 36 H BUN 21 H Creatinine Glucose 155 H POC Glucose 166 H Calcium Phosphorus Magnesium Lactate Dehydrogenase Triglycerides Arterial Blood Glucose Arterial Blood Ionized Calcium Urine WBC (Auto) Salicylates Acetaminophen 11/23/21 11/23/21 11/24/21 17:11 23:07 05:03 WBC RBC Hgb Hct MCH MCHC RDW Plt Count Lymph % (Auto) [place] % (Auto) Lymph # (Auto) [place] # (Auto) Seg Neutrophils % Lymphocytes % (Manual) Seg Neutrophils # Seg Neutrophils # Man Lymphocytes # (Manual) D-Dimer ABG pH POC ABG pCO2 POC ABG pO2 ABG pO2 ABG HCO3 ABG O2 Saturation ABG Base Excess ABG Hemoglobin ABG Oxyhemoglobin ABG Sodium ABG Glucose Oxyhemoglobin Carboxyhemoglobin Sodium Potassium Carbon Dioxide BUN Creatinine Glucose POC Glucose 142 H 197 H 183 H Calcium Phosphorus Magnesium Lactate Dehydrogenase Triglycerides Arterial Blood Glucose Arterial Blood Ionized Calcium Urine WBC (Auto) Salicylates Acetaminophen 11/24/21 11/24/21 11/24/21 08:33 08:33 09:00 WBC RBC Hgb Hct 43.6 H MCH 26 L MCHC RDW 18.0 H Plt Count Lymph % (Auto) [place] % (Auto) Lymph # (Auto) [place] # (Auto) Seg Neutrophils % Lymphocytes % (Manual) Seg Neutrophils # Seg Neutrophils # Man Lymphocytes # (Manual) D-Dimer ABG pH POC ABG pCO2 POC ABG pO2 ABG pO2 69.1 L ABG HCO3 40.1 H ABG O2 Saturation 93.2 L ABG Base Excess 11.9 H ABG Hemoglobin ABG Oxyhemoglobin ABG Sodium ABG Glucose Oxyhemoglobin 90.3 L Carboxyhemoglobin Sodium Potassium 5.3 H D Carbon Dioxide 36 H BUN 25 H Creatinine 0.5 L Glucose 185 H POC Glucose Calcium Phosphorus Magnesium Lactate Dehydrogenase Triglycerides Arterial Blood Glucose Arterial Blood Ionized Calcium Urine WBC (Auto) Salicylates Acetaminophen 11/24/21 11/24/21 11/25/21 12:00 18:08 00:50 WBC RBC Hgb Hct MCH MCHC RDW Plt Count Lymph % (Auto) [place] % (Auto) Lymph # (Auto) [place] # (Auto) Seg Neutrophils % Lymphocytes % (Manual) Seg Neutrophils # Seg Neutrophils # Man Lymphocytes # (Manual) D-Dimer ABG pH POC ABG pCO2 POC ABG pO2 ABG pO2 67.3 L ABG HCO3 41.6 H 42.7 H ABG O2 Saturation 94.5 L ABG Base Excess 12.3 H 14.7 H ABG Hemoglobin ABG Oxyhemoglobin ABG Sodium ABG Glucose Oxyhemoglobin 93.1 L 91.6 L Carboxyhemoglobin Sodium Potassium Carbon Dioxide BUN Creatinine Glucose POC Glucose 168 H Calcium Phosphorus Magnesium Lactate Dehydrogenase Triglycerides Arterial Blood Glucose Arterial Blood Ionized Calcium Urine WBC (Auto) Salicylates Acetaminophen 11/25/21 11/25/21 11/25/21 04:57 04:57 14:18 WBC RBC 5.13 H Hgb Hct 45.1 H MCH 26 L MCHC RDW 17.7 H Plt Count Lymph % (Auto) [place] % (Auto) Lymph # (Auto) [place] # (Auto) Seg Neutrophils % Lymphocytes % (Manual) Seg Neutrophils # Seg Neutrophils # Man Lymphocytes # (Manual) D-Dimer ABG pH POC ABG pCO2 POC ABG pO2 ABG pO2 65.1 L ABG HCO3 41.7 H ABG O2 Saturation 94.2 L ABG Base Excess 13.4 H ABG Hemoglobin ABG Oxyhemoglobin ABG Sodium ABG Glucose Oxyhemoglobin 91.3 L Carboxyhemoglobin Sodium 146 H Potassium Carbon Dioxide 38 H BUN 26 H Creatinine 0.5 L Glucose 210 H POC Glucose Calcium Phosphorus Magnesium Lactate Dehydrogenase Triglycerides Arterial Blood Glucose Arterial Blood Ionized Calcium Urine WBC (Auto) Salicylates Acetaminophen 11/25/21 11/26/2121 19:22 04:28 04:28 WBC RBC 5.05 H Hgb Hct 44.0 H MCH 26 L MCHC RDW 17.6 H Plt Count Lymph % (Auto) [place] % (Auto) Lymph # (Auto) [place] # (Auto) Seg Neutrophils % Lymphocytes % (Manual) Seg Neutrophils # Seg Neutrophils # Man Lymphocytes # (Manual) D-Dimer ABG pH POC ABG pCO2 POC ABG pO2 ABG pO2 ABG HCO3 ABG O2 Saturation ABG Base Excess ABG Hemoglobin ABG Oxyhemoglobin ABG Sodium ABG Glucose Oxyhemoglobin Carboxyhemoglobin Sodium 146 H Potassium Carbon Dioxide 38 H BUN 30 H Creatinine Glucose 124 H POC Glucose 151 H Calcium 10.5 H Phosphorus Magnesium Lactate Dehydrogenase Triglycerides Arterial Blood Glucose Arterial Blood Ionized Calcium Urine WBC (Auto) Salicylates Acetaminophen 11/26/21 11/26/21 11/27/21 05:50 10:28 08:31 WBC 12.4 H RBC 5.62 H Hgb 14.6 H Hct 48.7 H MCH 26 L MCHC RDW 17.9 H Plt Count 469 H Lymph % (Auto) [place] % (Auto) Lymph # (Auto) [place] # (Auto) Seg Neutrophils % Lymphocytes % (Manual) Seg Neutrophils # Seg Neutrophils # Man Lymphocytes # (Manual) D-Dimer ABG pH POC ABG pCO2 POC ABG pO2 ABG pO2 66.5 L ABG HCO3 39.6 H ABG O2 Saturation 92.9 L ABG Base Excess 11.4 H ABG Hemoglobin 16.8 H ABG Oxyhemoglobin ABG Sodium ABG Glucose Oxyhemoglobin 90.3 L Carboxyhemoglobin Sodium Potassium Carbon Dioxide BUN Creatinine Glucose POC Glucose 121 H Calcium Phosphorus Magnesium Lactate Dehydrogenase Triglycerides Arterial Blood Glucose Arterial Blood Ionized Calcium Urine WBC (Auto) Salicylates Acetaminophen 11/27/21 11/27/21 11/27/21 08:31 09:46 11:49 WBC RBC Hgb Hct MCH MCHC RDW Plt Count Lymph % (Auto) [place] % (Auto) Lymph # (Auto) [place] # (Auto) Seg Neutrophils % Lymphocytes % (Manual) Seg Neutrophils # Seg Neutrophils # Man Lymphocytes # (Manual) D-Dimer ABG pH POC ABG pCO2 POC ABG pO2 ABG pO2 ABG HCO3 ABG O2 Saturation ABG Base Excess ABG Hemoglobin ABG Oxyhemoglobin ABG Sodium ABG Glucose Oxyhemoglobin Carboxyhemoglobin Sodium 150 H Potassium Carbon Dioxide 33 H BUN 31 H Creatinine Glucose 135 H POC Glucose 140 H 153 H Calcium 11.0 H Phosphorus Magnesium Lactate Dehydrogenase Triglycerides Arterial Blood Glucose Arterial Blood Ionized Calcium Urine WBC (Auto) Salicylates Acetaminophen 11/27/21 11/27/21 11/27/21 14:16 17:14 23:25 WBC RBC Hgb Hct MCH MCHC RDW Plt Count Lymph % (Auto) [place] % (Auto) Lymph # (Auto) [place] # (Auto) Seg Neutrophils % Lymphocytes % (Manual) Seg Neutrophils # Seg Neutrophils # Man Lymphocytes # (Manual) D-Dimer ABG pH 7.485 H POC ABG pCO2 48.7 H POC ABG pO2 74.5 L ABG pO2 ABG HCO3 ABG O2 Saturation ABG Base Excess ABG Hemoglobin ABG Oxyhemoglobin ABG Sodium 145.5 H ABG Glucose 153 H Oxyhemoglobin Carboxyhemoglobin 1.6 H Sodium Potassium Carbon Dioxide BUN Creatinine Glucose POC Glucose 142 H 123 H Calcium Phosphorus Magnesium Lactate Dehydrogenase Triglycerides Arterial Blood Glucose 153 H Arterial Blood Ionized Calcium 5.4 H Urine WBC (Auto) Salicylates Acetaminophen 11/28/21 11/28/21 11/28/21 03:38 03:38 05:16 WBC RBC 5.05 H Hgb Hct 43.6 H MCH 26 L MCHC RDW 17.8 H Plt Count Lymph % (Auto) [place] % (Auto) Lymph # (Auto) [place] # (Auto) Seg Neutrophils % Lymphocytes % (Manual) Seg Neutrophils # Seg Neutrophils # Man Lymphocytes # (Manual) D-Dimer ABG pH POC ABG pCO2 POC ABG pO2 ABG pO2 ABG HCO3 ABG O2 Saturation ABG Base Excess ABG Hemoglobin ABG Oxyhemoglobin ABG Sodium ABG Glucose Oxyhemoglobin Carboxyhemoglobin Sodium 150 H Potassium Carbon Dioxide 32 H BUN 51 H Creatinine Glucose 143 H POC Glucose 138 H Calcium 10.5 H Phosphorus Magnesium Lactate Dehydrogenase Triglycerides Arterial Blood Glucose Arterial Blood Ionized Calcium Urine WBC (Auto) Salicylates Acetaminophen 11/28/21 11/28/21 11/29/21 17:01 23:51 03:51 WBC RBC Hgb Hct MCH MCHC RDW Plt Count Lymph % (Auto) [place] % (Auto) Lymph # (Auto) [place] # (Auto) Seg Neutrophils % Lymphocytes % (Manual) Seg Neutrophils # Seg Neutrophils # Man Lymphocytes # (Manual) D-Dimer ABG pH POC ABG pCO2 54.1 H POC ABG pO2 70.6 L ABG pO2 ABG HCO3 ABG O2 Saturation ABG Base Excess ABG Hemoglobin ABG Oxyhemoglobin 93.1 L ABG Sodium ABG Glucose 144 H Oxyhemoglobin Carboxyhemoglobin Sodium Potassium Carbon Dioxide BUN Creatinine Glucose POC Glucose 145 H 130 H Calcium Phosphorus Magnesium Lactate Dehydrogenase Triglycerides Arterial Blood Glucose 144 H Arterial Blood Ionized Calcium Urine WBC (Auto) Salicylates Acetaminophen 11/29/21 11/29/21 11/29/21 05:51 05:51 12:09 WBC 11.1 H RBC Hgb Hct MCH 26 L MCHC RDW 17.8 H Plt Count Lymph % (Auto) [place] % (Auto) Lymph # (Auto) [place] # (Auto) Seg Neutrophils % Lymphocytes % (Manual) Seg Neutrophils # Seg Neutrophils # Man Lymphocytes # (Manual) D-Dimer ABG pH POC ABG pCO2 POC ABG pO2 ABG pO2 ABG HCO3 ABG O2 Saturation ABG Base Excess ABG Hemoglobin ABG Oxyhemoglobin ABG Sodium ABG Glucose Oxyhemoglobin Carboxyhemoglobin Sodium Potassium Carbon Dioxide 31 H BUN 42 H Creatinine Glucose 133 H POC Glucose 157 H Calcium Phosphorus Magnesium Lactate Dehydrogenase Triglycerides Arterial Blood Glucose Arterial Blood Ionized Calcium Urine WBC (Auto) Salicylates Acetaminophen 11/29/21 11/30/21 11/30/21 17:27 00:23 04:42 WBC RBC 5.05 H Hgb Hct 43.6 H MCH 26 L MCHC RDW 17.5 H Plt Count Lymph % (Auto) [place] % (Auto) Lymph # (Auto) [place] # (Auto) Seg Neutrophils % Lymphocytes % (Manual) Seg Neutrophils # Seg Neutrophils # Man Lymphocytes # (Manual) D-Dimer ABG pH POC ABG pCO2 POC ABG pO2 ABG pO2 ABG HCO3 ABG O2 Saturation ABG Base Excess ABG Hemoglobin ABG Oxyhemoglobin ABG Sodium ABG Glucose Oxyhemoglobin Carboxyhemoglobin Sodium Potassium Carbon Dioxide BUN Creatinine Glucose POC Glucose 164 H 192 H Calcium Phosphorus Magnesium Lactate Dehydrogenase Triglycerides Arterial Blood Glucose Arterial Blood Ionized Calcium Urine WBC (Auto) Salicylates Acetaminophen 11/30/21 11/30/21 11/30/21 04:42 11:27 12:04 WBC RBC Hgb Hct MCH MCHC RDW Plt Count Lymph % (Auto) [place] % (Auto) Lymph # (Auto) [place] # (Auto) Seg Neutrophils % Lymphocytes % (Manual) Seg Neutrophils # Seg Neutrophils # Man Lymphocytes # (Manual) D-Dimer ABG pH POC ABG pCO2 60.0 H POC ABG pO2 68.3 L ABG pO2 ABG HCO3 ABG O2 Saturation ABG Base Excess ABG Hemoglobin ABG Oxyhemoglobin 90.9 L ABG Sodium 145.1 H ABG Glucose 122 H Oxyhemoglobin Carboxyhemoglobin Sodium Potassium Carbon Dioxide BUN 32 H Creatinine 0.5 L Glucose 178 H POC Glucose 156 H Calcium Phosphorus Magnesium Lactate Dehydrogenase Triglycerides Arterial Blood Glucose 122 H Arterial Blood Ionized Calcium Urine WBC (Auto) Salicylates Acetaminophen 11/30/21 11/30/21 12/01/21 17:35 23:51 04:00 WBC 13.8 H RBC Hgb Hct MCH 26 L MCHC RDW 17.6 H Plt Count 455 H Lymph % (Auto) [place] % (Auto) Lymph # (Auto) [place] # (Auto) Seg Neutrophils % Lymphocytes % (Manual) Seg Neutrophils # Seg Neutrophils # Man Lymphocytes # (Manual) D-Dimer ABG pH POC ABG pCO2 POC ABG pO2 ABG pO2 ABG HCO3 ABG O2 Saturation ABG Base Excess ABG Hemoglobin ABG Oxyhemoglobin ABG Sodium ABG Glucose Oxyhemoglobin Carboxyhemoglobin Sodium Potassium Carbon Dioxide BUN Creatinine Glucose POC Glucose 124 H 158 H Calcium Phosphorus Magnesium Lactate Dehydrogenase Triglycerides Arterial Blood Glucose Arterial Blood Ionized Calcium Urine WBC (Auto) Salicylates Acetaminophen 12/01/21 12/01/21 12/01/21 04:00 06:03 11:13 WBC RBC Hgb Hct MCH MCHC RDW Plt Count Lymph % (Auto) [place] % (Auto) Lymph # (Auto) [place] # (Auto) Seg Neutrophils % Lymphocytes % (Manual) Seg Neutrophils # Seg Neutrophils # Man Lymphocytes # (Manual) D-Dimer ABG pH POC ABG pCO2 POC ABG pO2 ABG pO2 ABG HCO3 ABG O2 Saturation ABG Base Excess ABG Hemoglobin ABG Oxyhemoglobin ABG Sodium ABG Glucose Oxyhemoglobin Carboxyhemoglobin Sodium Potassium Carbon Dioxide BUN 36 H Creatinine 0.5 L Glucose 188 H POC Glucose 178 H 121 H Calcium Phosphorus Magnesium Lactate Dehydrogenase Triglycerides Arterial Blood Glucose Arterial Blood Ionized Calcium Urine WBC (Auto) Salicylates Acetaminophen Allied health notes reviewed: nursing
[2021-12-01 11:53] LABS: ABG Base Excess 5.7 mmol/L (-2.0-3.0); ABG HCO3 32.3 mmol/L (20.0-26.0); ABG Methemoglobin 0.5 % (0.0-1.5); ABG Oxygen Saturation 94.5 % (95.0-99.0); ABG PCO2 55.8 mm Hg; ABG PH 7.38 pH Units (7.350-7.450)
[2021-12-01] MEDS ORDERED: GLYCOPYRROLATE 0.4 MG/2 ML INJ IV SCH (14:00)
--- NOTE | 2021-12-01 16:59 | Progress Note ---
Assessment and Plan Assessment and plan: This is a 81-year-old AA female with past medical history of CAD, CHF, pulmonary hypertension, COPD, and tobacco abuse admitted for acute hypoxemic respiratory failure 2/2 of bilateral pneumonia vs COPD exacerbation/pulmonary edema requiring intubation and ventilatory support. Hospital Course to Date: 11/18: Patient was seen and examined in the ED. Patient is intubated and sedated on propofol and versed gtt, RASS -3 to -4. Patient is in hypertensive emergency this am, SBP in the 240s, cardene gtt was initiated, maintain SBP less than 160. Leukocytosis noted, UA significant for UTI. Lactic, procal, and CRP are normal. Patient remains afebrile, continue empiric IV abx for now. Tracheal aspirate ordered, blood culture is pending. Continue to f/u on culture data. 11/19: Patient remains intubated and sedated. Patient did not tolerate sedation vacation this am, became tachycardic, hypertensive, with elevated RR and SPO2 in the low 80s. Sedation back on, continue to wean sedation as tolerated for RASS goal of 0 to -2. Pateimt is off cardene gtt, PRN hydralazine for SPO2 above 160. Low K repleted, repeat labs in the am. 11/20: Remains on the vent and sedated, RASS -3. Plan to wean down on sedation, might need to add Seroquel if patient is not tolerating sedation. Hypernatremia and increased BUN/Cr. this am, patient is on lasix BID. Will discuss with [facility] to possibly hold or decreased IV lasix for now, FWF added for high Na. Urinary retention post briggs removal, bladder scan and straight cath per protocol. 11/21: Patient remains on the vent, unable to wean sedation at this time, Seroquel added. Titrate sedation as tolerated for RASS of 0 to -2. Briggs was r einserted overnight for urinary retention, kidney function is stable. 11/22: [facility] reduced FiO2. We will start weaning tomorrow. No acute events reported overnight. 11/23: Patient spiked a fever overnight and was cultured this morning. Attempted CPAP trial again today. An ABG obtained post trial which has been given to [facility]. Slight hypernatremia noted. 11/24: I updated patient's son today, Kwame Salamanca at [phone]. Lasix stopped today. Patient placed on CPAP trial. She lasted on CPAP all day yesterday and was rested overnight on assist control. Given Kayexalate today due to hyperkalemia. 11/25: Patient was on SBT today and was not arousable for a while and a CT head was obtained which showed no acute intracranial abnormality. Patient later became severely agitated and was switched back to assist control and placed back on sedation. Family updated today. Restarted home Coreg due to hypotension. 11/26: SBT today, Haldol as needed. Briggs was removed yesterday bladder scan x2 with urine output. Slight hypernatremia persists. Blood pressure better controlled. 11/27/2021: Patient was extubated by [facility] this morning. Patient was severely agitated and given 2 mg Ativan, SBP 200s and given labatalol x1 10mg, [place] tube placed and given PO BP medications. She had stridor and was given racemic epi. We wanted to place BiPAP but after consolation with Dr. Gallegos it was decided t o intubate the patient. She was intubated by Deidra, RT and given etomidate, versed and fentanyl. CXR in process. On fentanyl and precedex gtt. 11/28: added buspar to help with agitation, restarted serqoul at lower dose. weaned fi02 today. 11/29: Remains on the vent and on sedation, fent and precedx gtts. D/w CCM plan for possible SAT and SBT in the am, hold TF at 6am on 11/30 for possible SAT/SBT. 11/30: Patient mentation slightly better this am, still on predex and fentanyl gtt. However, easily arousable, following simple commands. Tolerated SBT trial for about 2hrs today then patient was placed back on a rate due to increased work of breathing and increased agitation. D/w [facility] seroquel increased to BID, plan to try SAT/SBT again the am. 12/01: CONY overnight. Patient mentation continue to improve. Tolerating SBT this am, possible extubation today if ABG is wnr. Assessment and Plan #Neuro: Agitation - Patient intubated, while awake on fentanyl gtt - On Seroquel and Buspar - Continue sedation for RASS goal of 0 to -1 - PRN Haldol for agitation - Close monitoring of QTc - Avoid benzodiazepine to reduce the possibility of delirium - PRN analgesia for CPOT greater than 3 - Maintenance of sleep-wake cycle #CHF and Pulmonary HTN #Hypertensive Emergency-resolved #H/o CAD - Patient SBP as in the 240s in the ED - S/p cardene gtt - 12/2020 Echo with a EF of 60- 65% - IV Lasix D/naren - Continue home antihypertensives - Continue blood pressure monitor per protocol - PRN hydralazine for SBP greater than 160 #Acute Hypoxemic Respiratory Failure #COPD Exacerbation #Bilateral Pneumonia #Pulmonary Edema - Chest x-ray shows bilateral pulmonary opacities possibly representing edema/atelectasis or pneumonia. - CT of the chest shows evidence of pulmonary hypertension with dense consolidation along the left lower lobe that is concerning for pneumonia. Mild interstitial pulmonary edema. - Patient intubated in the ED on 11/18, extubated on 11/27 - Patient was reintubated on 11/27 due to stridor - Vent Setting this am:Cpap-40%,8,PS-10 - AM ABG pending - CCM consulted, appreciate recommendations - IV steroids end today - Tolerating SBT trial this am, repeat ABG in 2hrs - If ABG wnr, plan for possible extubation today - VAP bundle addressed - Aspiration precaution HOB above 30 - Daily ABG and CXR - Continue SPO2 monitoring for SPO2 goal above 92% #GI:H/o GERD - enteral nutrition on hold while SBT - Nutrition on consult - Continue PPI- Pepcid - Continue BR #Urinary Retention #Hyperkalemia-improved #Hypokalemia-resolved - Briggs reinserted twice due to urinary retention - LAsix D/naren - Strict intake and output - Monitor and replace electrolytes as needed - Trend BMP - Avoid nephrotoxic medications; Renally dose medications #Elevated D-Dimer - BLE DVT negative - Per CCM no indication for CTA at this time - Lovenox added for DVT proph. - SCDs to bilateral lower extremities while in bed #ID:Bilateral Pneumonia #Urinary tract Infection #Leukocytosis - Imagings shown bilateral opacities representing pulmonary edema vs pneumonia - WBCs as high as 15.6, downtrending - CRP and procal is normal - COVID swab neg - Urinalysis was significant for UTI. - B. cultures negative - Sputum culture +parisa Albicans - Patient afebrile - Patient completed IV antibiotic course - Daily CBC monitor - Consider ID consult if febrile or/and if leukocytosis reocccur #Endo:Glycemic Control - Continue BG check Q6hrs while on TF - SSI Q6hrs - Avoid Hypoglycemia The high probability of a clinically significant, sudden or life threatening deterioration of the [Neuro, Resp] system(s) required my full and direct attention, intervention and personal management. The aggregate critical care time was [60] minutes. This time is in addition to time spent performing reported procedures but includes the following: [x] Data Review and interpretation [x] Patient assessment and monitoring of vital signs [x] Documentation [x] Medication orders and management Disposition Plan: ICU Total Time Spent with Patient (Minutes): 60 History Interval history: Patient seen and examined at the bedside. Patient remains intubated, while awake on fentanyl gtt. CONY overnight Hospitalist Physical - Constitutional Vitals: Temp Pulse Resp BP Pulse Ox 99.0 F 79 21 133/67 94 12/01/21 11:50 12/01/21 16:00 12/01/21 16:00 12/01/21 16:00 12/01/21 16:00 General appearance: Present: no acute distress, other (Intubated) - EENT Eyes: Present: PERRL ENT: hearing intact - Neck Neck: Present: normal ROM - Respiratory Respiratory effort: normal Respiratory: bilateral: rhonchi - Cardiovascular Rhythm: regular Heart Sounds: Present: S1 & S2 - Extremities Extremities: no ischemia, pulses intact, pulses symmetrical Extremity abnormal: edema - Peripheral Assessment Generalized Edema Type: Non-pitting Edema Degree: 1+ Capillary Refill: < 3 seconds Skin Temperature: Warm Peripheral Pulses: within normal limits - Abdominal General gastrointestinal: soft, non-tender, normal bowel sounds - Integumentary Integumentary: Present: warm, dry - Psychiatric Psychiatric: appropriate mood/affect, cooperative - Neurologic Neurologic: moves all extremities, other (Following simple commands) - Allied Health Allied health notes reviewed: nursing HEART Score - HEART Score Troponin: Troponin T < 0.010 ng/mL (0.00-0.029) 11/18/21 03:25 Results - Labs CBC & Chem 7: 12/01/21 04:00 12/01/21 04:00 Labs: Laboratory Last Values WBC 13.8 K/mm3 (4.5-11.0) H 12/01/21 04:00 RBC 4.78 M/mm3 (3.65-5.03) 12/01/21 04:00 Hgb 12.4 gm/dl (10.1-14.3) 12/01/21 04:00 Hct 41.3 % (30.3-42.9) 12/01/21 04:00 MCV 87 fl (79-97) 12/01/21 04:00 MCH 26 pg (28-32) L 12/01/21 04:00 MCHC 30 % (30-34) 12/01/21 04:00 RDW 17.6 % (13.2-15.2) H 12/01/21 04:00 Plt Count 455 K/mm3 (140-440) H 12/01/21 04:00 Lymph % (Auto) 12.3 % (13.4-35.0) L 11/19/21 07:59 [place] % (Auto) 9.6 % (0.0-7.3) H 11/19/21 07:59 Eos % (Auto) 0.7 % (0.0-4.3) 11/19/21 07:59 Baso % (Auto) 0.5 % (0.0-1.8) 11/19/21 07:59 Lymph # (Auto) 1.6 K/mm3 (1.2-5.4) 11/19/21 07:59 [place] # (Auto) 1.2 K/mm3 (0.0-0.8) H 11/19/21 07:59 Eos # (Auto) 0.1 K/mm3 (0.0-0.4) 11/19/21 07:59 Baso # (Auto) 0.1 K/mm3 (0.0-0.1) 11/19/21 07:59 Add Manual Diff Complete 11/18/21 00:19 Total Counted 100 11/18/21 00:19 Seg Neutrophils % 76.9 % (40.0-70.0) H 11/19/21 07:59 Lymphocytes % (Manual) 4.0 % (13.4-35.0) L 11/18/21 00:19 Monocytes % (Manual) 2.0 % (0.0-7.3) 11/18/21 00:19 Nucleated RBC % Not Reportable 11/18/21 00:19 Seg Neutrophils # 9.7 K/mm3 (1.8-7.7) H 11/19/21 07:59 Seg Neutrophils # Man 14.7 K/mm3 (1.8-7.7) H 11/18/21 00:19 Band Neutrophils # 0.0 K/mm3 11/18/21 00:19 Lymphocytes # (Manual) 0.6 K/mm3 (1.2-5.4) L 11/18/21 00:19 Abs React Lymphs (Man) 0.0 K/mm3 11/18/21 00:19 Monocytes # (Manual) 0.3 K/mm3 (0.0-0.8) 11/18/21 00:19 Eosinophils # (Manual) 0.0 K/mm3 (0.0-0.4) 11/18/21 00:19 Basophils # (Manual) 0.0 K/mm3 (0.0-0.1) 11/18/21 00:19 Metamyelocytes # 0.0 K/mm3 11/18/21 00:19 Myelocytes # 0.0 K/mm3 11/18/21 00:19 Promyelocytes # 0.0 K/mm3 11/18/21 00:19 Blast Cells # 0.0 K/mm3 11/18/21 00:19 WBC Morphology Not Reportable 11/18/21 00:19 Hypersegmented Neuts Not Reportable 11/18/21 00:19 Hyposegmented Neuts Not Reportable 11/18/21 00:19 Hypogranular Neuts Not Reportable 11/18/21 00:19 Smudge Cells Not Reportable 11/18/21 00:19 Toxic Granulation Not Reportable 11/18/21 00:19 Toxic Vacuolation Not Reportable 11/18/21 00:19 Dohle Bodies Not Reportable 11/18/21 00:19 Pelger-Huet Anomaly Not Reportable 11/18/21 00:19 Luis Rods Not Reportable 11/18/21 00:19 Platelet Estimate Consistent w auto 11/18/21 00:19 Clumped Platelets Not Reportable 11/18/21 00:19 Plt Clumps, EDTA Not Reportable 11/18/21 00:19 Large Platelets Not Reportable 11/18/21 00:19 Giant Platelets Not Reportable 11/18/21 00:19 Platelet Satelliting Not Reportable 11/18/21 00:19 Plt Morphology Comment Not Reportable 11/18/21 00:19 RBC Morphology Not Reportable 11/18/21 00:19 Dimorphic RBCs Not Reportable 11/18/21 00:19 Polychromasia Not Reportable 11/18/21 00:19 Hypochromasia Not Reportable 11/18/21 00:19 Poikilocytosis Not Reportable 11/18/21 00:19 Anisocytosis 1+ 11/18/21 00:19 Microcytosis Not Reportable 11/18/21 00:19 Macrocytosis Few 11/18/21 00:19 Spherocytes Not Reportable 11/18/21 00:19 Pappenheimer Bodies Not Reportable 11/18/21 00:19 Sickle Cells Not Reportable 11/18/21 00:19 Target Cells Not Reportable 11/18/21 00:19 Tear Drop Cells Not Reportable 11/18/21 00:19 Ovalocytes Not Reportable 11/18/21 00:19 Helmet Cells Not Reportable 11/18/21 00:19 [place] Bodies Not Reportable 11/18/21 00:19 [place] Rings Not Reportable 11/18/21 00:19 [place] Cells Not Reportable 11/18/21 00:19 Bite Cells Not Reportable 11/18/21 00:19 Crenated Cell Not Reportable 11/18/21 00:19 Elliptocytes Not Reportable 11/18/21 00:19 Acanthocytes (Spur) Not Reportable 11/18/21 00:19 Rouleaux Not Reportable 11/18/21 00:19 Hemoglobin C Crystals Not Reportable 11/18/21 00:19 Schistocytes Not Reportable 11/18/21 00:19 Malaria parasites Not Reportable 11/18/21 00:19 Shahriar Bodies Not Reportable 11/18/21 00:19 Hem Pathologist Commnt No 11/18/21 00:19 PT 12.9 Sec. (12.2-14.9) 11/18/21 00:19 INR 0.88 (0.87-1.13) 11/18/21 00:19 APTT 29.2 Sec. (24.2-36.6) 11/18/21 00:19 D-Dimer 464.80 ng/mlDDU (0-234) H 11/18/21 05:15 ABG pH 7.380 pH Units (7.350-7.450) 12/01/21 11:42 POC ABG pCO2 60.0 mmHg (32.0-48.0) H 11/30/21 12:04 ABG pCO2 55.8 mm Hg 12/01/21 11:42 POC ABG pO2 68.3 mmHg (83-108) L 11/30/21 12:04 ABG pO2 71.0 mm Hg (80.0-90.0) L 12/01/21 11:42 POC ABG HCO3 32.9 11/30/21 12:04 ABG HCO3 32.3 mmol/L (20.0-26.0) H 12/01/21 11:42 ABG O2 Saturation 94.5 % (95.0-99.0) L 12/01/21 11:42 ABG O2 Content 16.8 (0.0-44) 12/01/21 11:42 POC ABG Base Excess 5.5 11/30/21 12:04 ABG Base Excess 5.7 mmol/L (-2.0-3.0) H 12/01/21 11:42 ABG Hemoglobin 12.9 gm/dl (12.0-16.0) 12/01/21 11:42 ABG Oxyhemoglobin 90.9 (94-98) L 11/30/21 12:04 ABG Carboxyhemoglobin 1.5 % (0.0-5.0) 12/01/21 11:42 ABG Methemoglobin 0.5 % (0.0-1.5) 12/01/21 11:42 ABG Sodium 145.1 mmol/L (136.0-145.0) H 11/30/21 12:04 ABG Potassium 4.0 mmol/L (3.40-4.50) 11/30/21 12:04 ABG Chloride 102.0 mmol/L (98-107) 11/30/21 12:04 ABG Glucose 122 mg/dL (65-95) H 11/30/21 12:04 Oxyhemoglobin 92.6 % (95.0-99.0) L 12/01/21 11:42 Carboxyhemoglobin 1.2 (0.5-1.5) 11/30/21 12:04 FiO2 40 % 12/01/21 11:42 FiO2 % 40 11/30/21 12:04 Sodium 145 mmol/L (137-145) 12/01/21 04:00 Potassium 4.7 mmol/L (3.6-5.0) 12/01/21 04:00 Chloride 104.7 mmol/L (98-107) 12/01/21 04:00 Carbon Dioxide 27 mmol/L (22-30) 12/01/21 04:00 Anion Gap 18 mmol/L 12/01/21 04:00 BUN 36 mg/dL (7-17) H 12/01/21 04:00 Creatinine 0.5 mg/dL (0.6-1.2) L 12/01/21 04:00 Estimated GFR > 60 ml/min 12/01/21 04:00 BUN/Creatinine Ratio 72 % 12/01/21 04:00 Glucose 188 mg/dL (65-100) H 12/01/21 04:00 POC Glucose 121 mg/dL (70-105) H 12/01/21 11:13 Hemoglobin A1c 5.9 % (4-6) 11/19/21 07:59 Lactic Acid 1.40 mmol/L (0.7-2.0) 11/18/21 00:19 Calcium 10.1 mg/dL (8.4-10.2) 12/01/21 04:00 Phosphorus 2.50 mg/dL (2.5-4.5) 12/01/21 04:00 Magnesium 2.10 mg/dL (1.7-2.3) 12/01/21 04:00 Total Bilirubin 0.40 mg/dL (0.1-1.2) 11/18/21 00:19 Direct Bilirubin < 0.2 mg/dL (0-0.2) 11/18/21 00:19 Indirect Bilirubin 0.2 mg/dL 11/18/21 00:19 AST 22 units/L (5-40) 11/18/21 00:19 ALT 25 units/L (7-56) 11/18/21 00:19 Alkaline Phosphatase 99 units/L (35-129) 11/18/21 00:19 Ammonia 54.0 umol/L (25-60) 11/18/21 00:19 Lactate Dehydrogenase 275 units/L (91-180) H 11/18/21 05:15 Troponin T < 0.010 ng/mL (0.00-0.029) 11/18/21 03:25 C-Reactive Protein 0.70 mg/dL (0.00-1.30) 11/18/21 15:47 NT-Pro-B Natriuret Pep 867.7 pg/mL (0-900) 11/18/21 00:19 Total Protein 7.4 g/dL (6.3-8.2) 11/18/21 00:19 Albumin 4.0 g/dL (3.9-5) 11/18/21 00:19 Albumin/Globulin Ratio 1.2 % 11/18/21 00:19 Triglycerides 185 mg/dL (2-149) H 11/22/21 04:39 Lipase 13 units/L (13-60) 11/18/21 00:19 Procalcitonin 0.12 ng/mL (<0.15) 11/18/21 05:15 Arterial Blood Glucose 122 mg/dL (65-95) H 11/30/21 12:04 Arterial Blood Ionized Calcium 5.2 mg/dL (4.6-5.3) 11/29/21 03:51 Urine Color Yellow (Yellow) 11/23/21 12:24 Urine Turbidity Clear (Clear) 11/23/21 12:24 Urine pH 7.0 (5.0-7.0) 11/23/21 12:24 Ur Specific [place] 1.018 (1.003-1.030) 11/23/21 12:24 Urine Protein <15 mg/dl mg/dL (Negative) 11/23/21 12:24 Urine Glucose (UA) Neg mg/dL (Negative) 11/23/21 12:24 Urine Ketones Neg mg/dL (Negative) 11/23/21 12:24 Urine Blood Neg (Negative) 11/23/21 12:24 Urine Nitrite Neg (Negative) 11/23/21 12:24 Urine Bilirubin Neg (Negative) 11/23/21 12:24 Urine Urobilinogen 4.0 mg/dL (<2.0) 11/23/21 12:24 Ur Leukocyte Esterase Neg (Negative) 11/23/21 12:24 Urine WBC (Auto) 1.0 /HPF (0.0-6.0) 11/23/21 12:24 Urine RBC (Auto) 1.0 /HPF (0.0-6.0) 11/23/21 12:24 U Epithel Cells (Auto) 1.0 /HPF (0-13.0) 11/18/21 01:03 Hyaline Casts 3 /LPF 11/18/21 01:03 Urine Mucus Few /HPF 11/18/21 01:03 Salicylates < 0.3 mg/dL (2.8-20.0) L 11/18/21 00:19 Urine Opiates Screen Negative 11/18/21 01:03 Urine Methadone Screen Negative 11/18/21 01:03 Acetaminophen 5.0 ug/mL (10.0-30.0) L 11/18/21 00:19 Ur Barbiturates Screen Negative 11/18/21 01:03 Ur Phencyclidine Scrn Negative 11/18/21 01:03 Ur Amphetamines Screen Negative 11/18/21 01:03 U Benzodiazepines Scrn Negative 11/18/21 01:03 Urine Cocaine Screen Negative 11/18/21 01:03 U Marijuana (THC) Screen Negative 11/18/21 01:03 Drugs of Abuse Note Disclamer 11/18/21 01:03 Plasma/Serum Alcohol < 0.01 % (0-0.07) 11/18/21 00:19 Coronavirus (PCR) Negative (Negative) 11/18/21 Unknown Briggs/IV: Voiding Method Indwelling Catheter Active Medications - Current Medications Current Medications: Generic Name Dose Route Start Last Admin Trade Name Freq PRN Reason Stop Dose Admin Acetaminophen 650 mg 11/18/21 03:10 11/22/21 19:49 Acetaminophen 650 Mg Rect Supp [place] 650 mg Q6H PRN Administration Pain MILD(1-3)/Fever >100.5/MONTIEL Acetaminophen 650 mg 11/23/21 00:56 11/28/21 05:37 Acetaminophen 325 Mg/10.15 Ml Oral Liqd Unit Dose FEEDTUBE 650 mg Q6H PRN Administration Non Cardiac Pain or Temp>100.5 Acetylcysteine 200 mg 11/30/21 20:00 12/01/21 14:39 Acetylcysteine 20% 200 Mg/1 Ml *For Inhalation Use* INHALATION 12/03/21 19:59 200 mg Q6HRT PAULINA Administration Albuterol/Ipratropium 1 ampul 11/30/21 15:00 12/01/21 14:39 Ipratropium/Albuterol Sulfate 3 Ml Ampul.Neb IH 1 ampul Q6HRT PAULINA Administration Amlodipine Besylate 10 mg 11/27/21 10:00 12/01/21 09:23 Amlodipine 10 Mg Tab PO 10 mg DAILY PAULINA Administration Lipase/Protease/Amylase 1 each 11/29/21 15:50 Lipase 10,500/Protease 25,000/Amylase 43,750 (Units) Dr Cross FEEDTUBE PRN PRN For Clogged Feeding Tube Arformoterol Tartrate 15 mcg 11/18/21 20:00 12/01/21 09:13 Arformoterol 15 Mcg/2 Ml Nebu IH 15 mcg Q12HRT PAULINA Administration Aspirin 81 mg 11/27/21 10:00 12/01/21 09:24 Aspirin Ec 81 Mg Tab PO 81 mg QDAY PAULINA Administration Budesonide 0.5 mg 11/18/21 20:00 12/01/21 09:13 Budesonide 0.5 Mg/2 Ml Nebu IH 0.5 mg Q12HRT PAULINA Administration Buspirone HCl 7.5 mg 11/28/21 22:00 12/01/21 09:24 Buspirone 5 Mg Tab PO 7.5 mg BID PAULINA Administration Carvedilol 12.5 mg 11/25/21 13:00 12/01/21 09:24 Carvedilol 12.5 Mg Tab FEEDTUBE 12.5 mg BID PAULINA Administration Dextrose 50 ml 11/18/21 10:40 Dextrose 50% In Water (25gm) 50 Ml Syringe IV Q30MIN PRN Hypoglycemia Protocol Enoxaparin Sodium 40 mg 11/19/21 22:00 11/30/21 22:48 Enoxaparin 40 Mg/0.4 Ml Inj SUB-Q 40 mg QDAY@2200 PAULINA Administration Protocol Famotidine 20 mg 11/20/21 10:00 12/01/21 09:24 Famotidine 20 Mg Tab FEEDTUBE 20 mg BID PAULINA Administration Fentanyl 50 mcg 11/27/21 11:45 11/30/21 12:09 Fentanyl 100 Mcg/2 Ml Inj IV 50 mcg Q10MIN PRN Administration ANALGESIA Gabapentin 800 mg 12/01/21 12:00 12/01/21 11:39 Gabapentin 400 Mg Cap PO 800 mg BID PAULINA Administration Haloperidol Lactate 5 mg 11/26/21 15:00 11/27/21 04:31 Haloperidol Lactate 5 Mg/1 Ml Inj IV 5 mg Q8HR PRN Administration Agitation Hydralazine HCl 10 mg 11/18/21 10:44 11/27/21 07:34 Hydralazine 20 Mg/1 Ml Inj IV 10 mg Q4HR PRN Administration Hypertension Hydrophilic Ointment 1 applic 11/18/21 15:26 Lip Therapy Vaseline TP Q2HR PRN Dry Lips Dexmedetomidine HCl 400 mcg/ 104 mls @ 4.243 mls/hr 11/27/21 11:00 11/30/21 13:00 Sodium Chloride IV 0 mcg/kg/hr TITRATE PAULINA 0 mls/hr Titration Protocol 0.2 MCG/KG/HR Fentanyl Citrate 2,000 mcg in 100 mls @ 4.08 mls/hr 11/27/21 12:00 12/01/21 11:27 Fentanyl Drip Premix IV 0 mcg/kg/hr TITR PAULINA 0 mls/hr Titration Protocol 1 MCG/KG/HR Insulin Human Lispro 0 unit 11/18/21 12:00 12/01/21 11:22 Insulin Lispro 100 Unit/Ml SUB-Q Not Given Q6HR [facility] Protocol Magnesium Hydroxide 30 ml 11/18/21 03:10 Magnesium Hydroxide (Mom) Oral Liqd Udc PO Q4H PRN Constipation Multi-Ingred Cream/Lotion/Oil/Oint 1 applic 11/18/21 15:26 Mineral Oil/Petrolatum, White Ophth Oint 3.5 Gm OU Q4HR PRN Dry Eye(s) Ondansetron HCl 4 mg 11/18/21 03:10 Ondansetron 4 Mg/2 Ml Inj IV Q8H PRN Nausea And Vomiting Oxycodone HCl 5 mg 11/27/21 09:50 Oxycodone 5 Mg Tab PO Q6H PRN Pain, Moderate (4-6) Quetiapine Fumarate 200 mg 11/30/21 22:00 12/01/21 09:24 Quetiapine 200 Mg Tab PO 200 mg BID PAULINA Administration Scopolamine 1 each 11/30/21 15:00 11/30/21 14:55 Scopolamine Transdermal Patch 72 Hr TD 1 each Q3D PAULINA Administration Senna/Docusate Sodium 1 tab 11/18/21 22:00 12/01/21 09:23 Sennosides/Docusate Sodium 8.6/50 Mg Tab FEEDTUBE 1 tab BID PAULINA Administration Simple Syrup 15 ml 11/29/21 15:50 Simple Syrup 15 Ml FEEDTUBE PRN PRN Hypoglycemia Simple Syrup 30 ml 11/29/21 15:50 Simple Syrup 15 Ml FEEDTUBE PRN PRN Hypoglycemia Sodium Bicarbonate 325 mg 11/29/21 15:50 Sodium Bicarbonate 325 Mg Tab FEEDTUBE PRN PRN For Clogged Feeding Tube Nutrition/Malnutrition Assess - Dietary Evaluation Nutrition/Malnutrition Findings: Nutrition Notes Start: 11/18/21 10:45 Freq: Status: Active Protocol: Document 11/29/21 15:42 ROSE (Rec: 11/29/21 15:50 NHALL [id number]) Nutrition Notes Initial or Follow up Reassessment Current Diagnosis COPD,Coronary Artery Disease, Heart Failure,Respiratory Failure,Hyperlipidemia Other Pertinent Diagnosis Toxic metabolic encephalopathy , Bilat pneu, UTI Current Diet TF - Promote at 65ml/hr Labs/Tests BUN 42 Pertinent Medications Reviewed Height 5 ft 8 in Weight 81.6 kg [place] Body Weight (kg) 63.63 BMI 27.3 Weight Status Overweight Subjective/Other Information Pt extubated on 11/27/21, however she was re-intubated on the same day sec to resp distress. TF infusing at 55ml /hr; per RN, will increase to goal rate this evening. Percent of energy/protein needs met: 82% energy 84% pro Burn Absent Trauma Absent #1 Nutrition Diagnosis Inadequate oral intake Diagnosis Progress(for reassessment Continues documentation) Is patient on ventilator? Yes Is Patient Ambulatory and/or Out of Bed No REE-([place] Jeor-confined to bed) 1614.000 Calculation Used for Recommendations [place] Jeor Additional Notes Pro needs 1.2-2g/k-163g/ day Fluid needs 1ml/kcal Nutrition Intervention Nutrition Support: Advance TF rate to goal of 65ml/hr and provide 50ml water flush q4h. Kcal 1,560 Protein (gm) 98 Carbohydrates (gm) 203 Fat (gm) 41 Fluid (mL) 1,309 Fiber (gm) 0 Goal #1 TF tolerance Goal #2 TF to meet at least 75% energy and pro needs Follow-Up By: 12/03/21 Additional Comments F/U: TF goal rate and tolerance, vent status
[2021-12-01] MEDS: ENOXAPARIN 40 MG/0.4 ML INJ SUB-Q SCH (21:38)
[2021-12-02] MEDS: INSULIN LISPRO 100 UNIT/ML SUB-Q SCH ×4 (00:31→17:23)
[2021-12-02] MEDS: IPRATROPIUM/ALBUTEROL SULFATE 3 ML AMPUL.NEB IH SCH ×4 (03:28→20:42)
[2021-12-02] MEDS: ACETYLCYSTEINE 20% 200 MG/1 ML *FOR INHALATION USE INHALATION SCH ×4 (03:31→20:43)
[2021-12-02 05:37] LABS: Mean Corpuscular HGB Conc 30 % (30-34); Mean Corpuscular Volume 87 fl (79-97); Platelet Count 476 K/mm3 (140-440); Red Blood Count 4.83 M/mm3 (3.65-5.03); Red Cell Distribution Width 18.1 % (13.2-15.2)
[2021-12-02 05:43] LABS: Blood Urea Nitrogen 30 mg/dL (7-17); Calcium 10.2 mg/dL (8.4-10.2); Hemolysis Index 4
[2021-12-02 05:48] LABS: BUN/Creatinine Ratio 60
[2021-12-02 06:22] LABS: Hematocrit 41.9 % (30.3-42.9); Hemoglobin 12.4 gm/dl (10.1-14.3)
[2021-12-02] MEDS: ARFORMOTEROL 15 MCG/2 ML NEBU IH SCH ×2 (08:44→20:42)
[2021-12-02] MEDS: BUDESONIDE 0.5 MG/2 ML NEBU IH SCH ×2 (08:44→20:42)
[2021-12-02] MEDS: QUEtiapine 200 MG TAB PO SCH ×2 (09:33→21:02)
[2021-12-02] MEDS: amLODIPine 10 MG TAB PO SCH (09:33)
[2021-12-02] MEDS: ASPIRIN EC 81 MG TAB PO SCH (09:33)
[2021-12-02] MEDS: SENNOSIDES/DOCUSATE SODIUM 8.6/50 MG TAB FEEDTUBE SCH ×2 (09:33→21:02)
[2021-12-02] MEDS: GABAPENTIN 400 MG CAP PO SCH ×2 (09:33→21:02)
[2021-12-02] MEDS: FAMOTIDINE 20 MG TAB FEEDTUBE SCH ×2 (09:34→21:02)
[2021-12-02] MEDS: carvediloL 12.5 MG TAB FEEDTUBE SCH ×2 (09:41→21:02)
[2021-12-02] MEDS: busPIRone 5 MG TAB PO SCH ×2 (10:38→21:02)
--- NOTE | 2021-12-02 13:33 | Progress Note ---
Assessment and Plan Acute exacerbation of chronic obstructive lung disease Acute hypoxemic respiratory failure Acute congestive heart failure exacerbation (? Flash Pulmonary edema) Community-acquired pneumonia Leukocytosis History of coronary artery disease Gastroesophageal reflux disease Arthritis Hyperlipidemia Obesity Elevated D-dimers Acute toxic metabolic encephalopathy Urinary tract infection Likely pulmonary hypertension Hypertensive emergency - continue Neurontin (600 mg po bid) - swallow evaluation and advance diet as tolerated - continue BIPAP scheduled qhs - continue care as below otherwise; - s/p systemic steroids for tentative laryngeal edema (cuff leak better) - complete mucomyst nebs course - continue to wean supplemental oxygen for target O2 sat's > 90% acutely - continue bronchodilators with pulmonary hygiene per RT - aspiration precautions - bronchodilators with pulmonary hygiene per RT - wean per pulmonary driven protocols otherwise - avoid nephrotoxins, renally dose all medications - continue accuchecks with glycemic control per SSI (While critically ill target blood glucose of 140-180 mg/dL; avoid hypoglycemia) - continue to avoid benzodiazepine's, reduce the possibility of delirium - completed AB's course - prn analgesia per pain score - Maintenance of sleep-wake cycle, avoid delirium - continue enteral nutritional support at goal rate as tolerated - G.I. & VTE prophylaxis - PT/OT/ROM exercises - continue mobility protocols for pressure ulcer prophylaxis - Monitor hemodynamics closely - continue other care per attending / other consultants - discharge planning ongoing concurrently COVID SPECIFIC INTERVENTIONS: - COVID-19 test negative .... Re-evaluate in am & prn I have spent ( >35 ) minutes with the patient w/ >50% of the time spent counseling and/or coordinating care for this patient. Counseling topics and/or how time was spent coordinating patient's care is outlined in the impression and plan above. Subjective Date of service: 12/02/21 Principal diagnosis: AE-COPD; AHRF; CHF (? new onset); CAP; CAD; Obesity; HTNsive Emergency Interval history: Patient is seen today for: AE-COPD; Acute hypoxemic respiratory failure; CHF (? new onset); CAP; CAD; Obesity; HTNsive Emergency Seen and examined at bedside; 24hour events reviewed; nursing and respiratory care staff consulted; no adverse overnight events reported to me; remains on MVS; has done well post extubation so far; tolerated BIPAP overnight; secretions better; No N/V/F/C Objective Vital Signs - 12hr 12/02/21 12/02/21 12/02/21 02:00 03:00 03:28 Temperature Pulse Rate 64 67 Pulse Rate [ 66 Anterior Bilateral Throughout] Pulse Rate [ From Monitor] Respiratory 21 21 Rate Respiratory 22 Rate [Anterior Bilateral Throughout] Blood Pressure 126/56 126/56 O2 Sat by Pulse 96 100 Oximetry 12/02/21 12/02/21 12/02/21 04:00 05:00 06:00 Temperature 99.0 F Pulse Rate 60 74 72 Pulse Rate [ Anterior Bilateral Throughout] Pulse Rate [ 79 From Monitor] Respiratory 20 18 Rate Respiratory Rate [Anterior Bilateral Throughout] Blood Pressure 126/56 126/56 126/56 O2 Sat by Pulse 96 96 99 Oximetry 12/02/21 12/02/21 12/02/21 07:00 07:51 08:00 Temperature 98.6 F Pulse Rate 62 61 Pulse Rate [ Anterior Bilateral Throughout] Pulse Rate [ 61 From Monitor] Respiratory 24 Rate Respiratory Rate [Anterior Bilateral Throughout] Blood Pressure 126/56 126/56 O2 Sat by Pulse 98 94 Oximetry 12/02/21 12/02/21 12/02/21 08:44 09:00 09:33 Temperature Pulse Rate 61 67 Pulse Rate [ 62 Anterior Bilateral Throughout] Pulse Rate [ From Monitor] Respiratory Rate Respiratory 20 Rate [Anterior Bilateral Throughout] Blood Pressure 192/79 192/75 O2 Sat by Pulse 97 96 Oximetry 12/02/21 12/02/21 12/02/21 09:41 10:00 11:00 Temperature Pulse Rate 68 76 73 Pulse Rate [ Anterior Bilateral Throughout] Pulse Rate [ From Monitor] Respiratory Rate Respiratory Rate [Anterior Bilateral Throughout] Blood Pressure 192/75 192/75 111/89 O2 Sat by Pulse 93 97 Oximetry 12/02/21 12/02/21 11:19 12:00 Temperature 98.4 F Pulse Rate 71 71 Pulse Rate [ Anterior Bilateral Throughout] Pulse Rate [ From Monitor] Respiratory Rate Respiratory Rate [Anterior Bilateral Throughout] Blood Pressure 111/89 O2 Sat by Pulse 93 Oximetry Constitutional: no acute distress, other (elderly obese female with mildly in creased respiratory effort at rest ) Eyes: non-icteric ENT: oropharynx moist, other (ETT 24 cm EMIL) Neck: supple, no lymphadenopathy, no JVD, other (large circumference) Effort: mildly labored Ascultation: Bilateral: diminished breath sounds, rhonchi Percussion: Bilateral: not dull Cardiovascular: regular rate and rhythm Gastrointestinal: normoactive bowel sounds, soft, non-tender, non-distended ( protuberant) Integumentary: normal Extremities: no cyanosis, no edema, pulses normal, no ischemia or petechiae Neurologic: non-focal exam (grossly), pupils equal and round, CN II-XII normal Psychiatric: mood appropriate, affect normal, other (mild delirium) CBC and BMP: 12/03/21 04:52 12/03/21 04:52 ABG, PT/INR, D-dimer: ABG ABG pH 7.380 pH Units (7.350-7.450) 12/01/21 11:42 POC ABG pCO2 60.0 mmHg (32.0-48.0) H 11/30/21 12:04 ABG pCO2 55.8 mm Hg 12/01/21 11:42 POC ABG pO2 68.3 mmHg (83-108) L 11/30/21 12:04 ABG pO2 71.0 mm Hg (80.0-90.0) L 12/01/21 11:42 POC ABG HCO3 32.9 11/30/21 12:04 ABG O2 Saturation 94.5 % (95.0-99.0) L 12/01/21 11:42 PT/INR, D-dimer PT 12.9 Sec. (12.2-14.9) 11/18/21 00:19 INR 0.88 (0.87-1.13) 11/18/21 00:19 D-Dimer 464.80 ng/mlDDU (0-234) H 11/18/21 05:15 Abnormal lab findings: Abnormal Labs 11/18/21 11/18/21 11/18/21 00:01 00:19 00:19 WBC 15.6 H RBC 5.59 H Hgb 14.8 H Hct 49.8 H MCH 27 L MCHC RDW 16.9 H Plt Count Lymph % (Auto) [place] % (Auto) Lymph # (Auto) [place] # (Auto) Seg Neutrophils % Lymphocytes % (Manual) 4.0 L Seg Neutrophils # Seg Neutrophils # Man 14.7 H Lymphocytes # (Manual) 0.6 L D-Dimer ABG pH POC ABG pCO2 POC ABG pO2 ABG pO2 ABG HCO3 ABG O2 Saturation ABG Base Excess ABG Hemoglobin ABG Oxyhemoglobin ABG Sodium ABG Glucose Oxyhemoglobin Carboxyhemoglobin Sodium Potassium Carbon Dioxide BUN Creatinine Glucose 148 H POC Glucose 151 H Calcium Phosphorus Magnesium Lactate Dehydrogenase Triglycerides Arterial Blood Glucose Arterial Blood Ionized Calcium Urine WBC (Auto) Salicylates Acetaminophen 11/18/21 11/18/21 11/18/21 00:19 00:19 00:19 WBC RBC Hgb Hct MCH MCHC RDW Plt Count Lymph % (Auto) [place] % (Auto) Lymph # (Auto) [place] # (Auto) Seg Neutrophils % Lymphocytes % (Manual) Seg Neutrophils # Seg Neutrophils # Man Lymphocytes # (Manual) D-Dimer ABG pH POC ABG pCO2 POC ABG pO2 ABG pO2 ABG HCO3 ABG O2 Saturation ABG Base Excess ABG Hemoglobin ABG Oxyhemoglobin ABG Sodium ABG Glucose Oxyhemoglobin Carboxyhemoglobin Sodium Potassium Carbon Dioxide BUN Creatinine Glucose POC Glucose Calcium Phosphorus Magnesium 2.50 H Lactate Dehydrogenase Triglycerides Arterial Blood Glucose Arterial Blood Ionized Calcium Urine WBC (Auto) Salicylates < 0.3 L Acetaminophen 5.0 L 11/18/21 11/18/21 11/18/21 01:03 02:00 05:15 WBC RBC Hgb Hct MCH MCHC RDW Plt Count Lymph % (Auto) [place] % (Auto) Lymph # (Auto) [place] # (Auto) Seg Neutrophils % Lymphocytes % (Manual) Seg Neutrophils # Seg Neutrophils # Man Lymphocytes # (Manual) D-Dimer 464.80 H ABG pH POC ABG pCO2 POC ABG pO2 ABG pO2 ABG HCO3 35.8 H ABG O2 Saturation ABG Base Excess 7.8 H ABG Hemoglobin ABG Oxyhemoglobin ABG Sodium ABG Glucose Oxyhemoglobin 91.9 L Carboxyhemoglobin Sodium Potassium Carbon Dioxide BUN Creatinine Glucose POC Glucose Calcium Phosphorus Magnesium Lactate Dehydrogenase Triglycerides Arterial Blood Glucose Arterial Blood Ionized Calcium Urine WBC (Auto) 16.0 H Salicylates Acetaminophen 11/18/21 11/18/21 11/18/21 05:15 15:47 15:47 WBC 13.5 H RBC 5.60 H Hgb 14.9 H Hct 49.1 H MCH 27 L MCHC RDW 17.3 H Plt Count Lymph % (Auto) 7.9 L [place] % (Auto) 10.1 H Lymph # (Auto) 1.1 L [place] # (Auto) 1.4 H Seg Neutrophils % 81.7 H Lymphocytes % (Manual) Seg Neutrophils # 11.0 H Seg Neutrophils # Man Lymphocytes # (Manual) D-Dimer ABG pH POC ABG pCO2 POC ABG pO2 ABG pO2 ABG HCO3 ABG O2 Saturation ABG Base Excess ABG Hemoglobin ABG Oxyhemoglobin ABG Sodium ABG Glucose Oxyhemoglobin Carboxyhemoglobin Sodium Potassium Carbon Dioxide BUN Creatinine Glucose 138 H POC Glucose Calcium Phosphorus Magnesium Lactate Dehydrogenase 275 H Triglycerides Arterial Blood Glucose Arterial Blood Ionized Calcium Urine WBC (Auto) Salicylates Acetaminophen 11/18/21 11/18/21 11/19/21 18:45 23:33 04:58 WBC RBC Hgb Hct MCH MCHC RDW Plt Count Lymph % (Auto) [place] % (Auto) Lymph # (Auto) [place] # (Auto) Seg Neutrophils % Lymphocytes % (Manual) Seg Neutrophils # Seg Neutrophils # Man Lymphocytes # (Manual) D-Dimer ABG pH POC ABG pCO2 POC ABG pO2 ABG pO2 ABG HCO3 ABG O2 Saturation ABG Base Excess ABG Hemoglobin ABG Oxyhemoglobin ABG Sodium ABG Glucose Oxyhemoglobin Carboxyhemoglobin Sodium Potassium Carbon Dioxide BUN Creatinine Glucose 130 H POC Glucose 132 H 113 H Calcium Phosphorus Magnesium Lactate Dehydrogenase Triglycerides Arterial Blood Glucose Arterial Blood Ionized Calcium Urine WBC (Auto) Salicylates Acetaminophen 11/19/21 11/19/21 11/19/21 07:59 07:59 08:55 WBC 12.7 H RBC 5.29 H Hgb Hct 45.5 H MCH 26 L MCHC RDW 17.4 H Plt Count Lymph % (Auto) 12.3 L [place] % (Auto) 9.6 H Lymph # (Auto) [place] # (Auto) 1.2 H Seg Neutrophils % 76.9 H Lymphocytes % (Manual) Seg Neutrophils # 9.7 H Seg Neutrophils # Man Lymphocytes # (Manual) D-Dimer ABG pH 7.518 H POC ABG pCO2 POC ABG pO2 ABG pO2 77.6 L ABG HCO3 30.1 H ABG O2 Saturation ABG Base Excess 6.9 H ABG Hemoglobin ABG Oxyhemoglobin ABG Sodium ABG Glucose Oxyhemoglobin Carboxyhemoglobin Sodium Potassium 3.1 L D Carbon Dioxide BUN Creatinine Glucose 115 H POC Glucose Calcium 8.1 L Phosphorus Magnesium Lactate Dehydrogenase Triglycerides Arterial Blood Glucose Arterial Blood Ionized Calcium Urine WBC (Auto) Salicylates Acetaminophen 11/19/21 11/19/21 11/20/21 11:33 16:22 04:20 WBC 13.9 H RBC 5.44 H Hgb Hct 49.3 H MCH 26 L MCHC 29 L RDW 18.3 H Plt Count Lymph % (Auto) [place] % (Auto) Lymph # (Auto) [place] # (Auto) Seg Neutrophils % Lymphocytes % (Manual) Seg Neutrophils # Seg Neutrophils # Man Lymphocytes # (Manual) D-Dimer ABG pH POC ABG pCO2 POC ABG pO2 ABG pO2 ABG HCO3 ABG O2 Saturation ABG Base Excess ABG Hemoglobin ABG Oxyhemoglobin ABG Sodium ABG Glucose Oxyhemoglobin Carboxyhemoglobin Sodium Potassium Carbon Dioxide BUN Creatinine Glucose POC Glucose 119 H 112 H Calcium Phosphorus Magnesium Lactate Dehydrogenase Triglycerides Arterial Blood Glucose Arterial Blood Ionized Calcium Urine WBC (Auto) Salicylates Acetaminophen 11/20/21 11/20/21 11/20/21 04:20 11:07 12:02 WBC RBC Hgb Hct MCH MCHC RDW Plt Count Lymph % (Auto) [place] % (Auto) Lymph # (Auto) [place] # (Auto) Seg Neutrophils % Lymphocytes % (Manual) Seg Neutrophils # Seg Neutrophils # Man Lymphocytes # (Manual) D-Dimer ABG pH 7.251 L POC ABG pCO2 POC ABG pO2 ABG pO2 66.3 L ABG HCO3 30.2 H ABG O2 Saturation 91.8 L ABG Base Excess ABG Hemoglobin ABG Oxyhemoglobin ABG Sodium ABG Glucose Oxyhemoglobin 89.4 L Carboxyhemoglobin Sodium 147 H Potassium Carbon Dioxide BUN 25 H Creatinine Glucose POC Glucose 118 H Calcium Phosphorus 6.40 H Magnesium Lactate Dehydrogenase Triglycerides Arterial Blood Glucose Arterial Blood Ionized Calcium Urine WBC (Auto) Salicylates Acetaminophen 11/20/21 11/21/21 11/21/21 17:31 00:07 04:44 WBC 14.0 H RBC 5.08 H Hgb Hct 44.7 H MCH 26 L MCHC 29 L RDW 17.8 H Plt Count Lymph % (Auto) [place] % (Auto) Lymph # (Auto) [place] # (Auto) Seg Neutrophils % Lymphocytes % (Manual) Seg Neutrophils # Seg Neutrophils # Man Lymphocytes # (Manual) D-Dimer ABG pH POC ABG pCO2 POC ABG pO2 ABG pO2 ABG HCO3 ABG O2 Saturation ABG Base Excess ABG Hemoglobin ABG Oxyhemoglobin ABG Sodium ABG Glucose Oxyhemoglobin Carboxyhemoglobin Sodium Potassium Carbon Dioxide BUN Creatinine Glucose POC Glucose 139 H 147 H Calcium Phosphorus Magnesium Lactate Dehydrogenase Triglycerides Arterial Blood Glucose Arterial Blood Ionized Calcium Urine WBC (Auto) Salicylates Acetaminophen 11/21/21 11/21/21 11/21/21 04:44 06:06 11:45 WBC RBC Hgb Hct MCH MCHC RDW Plt Count Lymph % (Auto) [place] % (Auto) Lymph # (Auto) [place] # (Auto) Seg Neutrophils % Lymphocytes % (Manual) Seg Neutrophils # Seg Neutrophils # Man Lymphocytes # (Manual) D-Dimer ABG pH POC ABG pCO2 POC ABG pO2 ABG pO2 ABG HCO3 ABG O2 Saturation ABG Base Excess ABG Hemoglobin ABG Oxyhemoglobin ABG Sodium ABG Glucose Oxyhemoglobin Carboxyhemoglobin Sodium Potassium Carbon Dioxide BUN 20 H Creatinine Glucose 157 H POC Glucose 158 H 119 H Calcium Phosphorus Magnesium Lactate Dehydrogenase Triglycerides Arterial Blood Glucose Arterial Blood Ionized Calcium Urine WBC (Auto) Salicylates Acetaminophen 11/21/21 11/21/21 11/22/21 11:50 16:54 00:03 WBC RBC Hgb Hct MCH MCHC RDW Plt Count Lymph % (Auto) [place] % (Auto) Lymph # (Auto) [place] # (Auto) Seg Neutrophils % Lymphocytes % (Manual) Seg Neutrophils # Seg Neutrophils # Man Lymphocytes # (Manual) D-Dimer ABG pH POC ABG pCO2 POC ABG pO2 ABG pO2 61.8 L ABG HCO3 35.2 H ABG O2 Saturation 92.8 L ABG Base Excess 8.1 H ABG Hemoglobin ABG Oxyhemoglobin ABG Sodium ABG Glucose Oxyhemoglobin 90.6 L Carboxyhemoglobin Sodium Potassium Carbon Dioxide BUN Creatinine Glucose POC Glucose 149 H 133 H Calcium Phosphorus Magnesium Lactate Dehydrogenase Triglycerides Arterial Blood Glucose Arterial Blood Ionized Calcium Urine WBC (Auto) Salicylates Acetaminophen 11/22/21 11/22/21 11/22/21 04:39 04:39 04:39 WBC 14.1 H RBC Hgb Hct 43.4 H MCH 26 L MCHC RDW 17.9 H Plt Count Lymph % (Auto) [place] % (Auto) Lymph # (Auto) [place] # (Auto) Seg Neutrophils % Lymphocytes % (Manual) Seg Neutrophils # Seg Neutrophils # Man Lymphocytes # (Manual) D-Dimer ABG pH POC ABG pCO2 POC ABG pO2 ABG pO2 ABG HCO3 ABG O2 Saturation ABG Base Excess ABG Hemoglobin ABG Oxyhemoglobin ABG Sodium ABG Glucose Oxyhemoglobin Carboxyhemoglobin Sodium Potassium Carbon Dioxide 33 H BUN Creatinine Glucose 152 H POC Glucose Calcium Phosphorus Magnesium Lactate Dehydrogenase Triglycerides 185 H Arterial Blood Glucose Arterial Blood Ionized Calcium Urine WBC (Auto) Salicylates Acetaminophen 11/22/21 11/22/21 11/22/21 05:02 10:56 11:31 WBC RBC Hgb Hct MCH MCHC RDW Plt Count Lymph % (Auto) [place] % (Auto) Lymph # (Auto) [place] # (Auto) Seg Neutrophils % Lymphocytes % (Manual) Seg Neutrophils # Seg Neutrophils # Man Lymphocytes # (Manual) D-Dimer ABG pH POC ABG pCO2 POC ABG pO2 ABG pO2 55.3 L ABG HCO3 39.4 H ABG O2 Saturation 89.5 L ABG Base Excess 11.7 H ABG Hemoglobin ABG Oxyhemoglobin ABG Sodium ABG Glucose Oxyhemoglobin 87.2 L Carboxyhemoglobin Sodium Potassium Carbon Dioxide BUN Creatinine Glucose POC Glucose 158 H 116 H Calcium Phosphorus Magnesium Lactate Dehydrogenase Triglycerides Arterial Blood Glucose Arterial Blood Ionized Calcium Urine WBC (Auto) Salicylates Acetaminophen 11/22/21 11/22/21 11/23/21 17:29 23:22 04:49 WBC 13.6 H RBC 5.18 H Hgb Hct 45.6 H MCH 25 L MCHC 29 L RDW 17.5 H Plt Count Lymph % (Auto) [place] % (Auto) Lymph # (Auto) [place] # (Auto) Seg Neutrophils % Lymphocytes % (Manual) Seg Neutrophils # Seg Neutrophils # Man Lymphocytes # (Manual) D-Dimer ABG pH POC ABG pCO2 POC ABG pO2 ABG pO2 ABG HCO3 ABG O2 Saturation ABG Base Excess ABG Hemoglobin ABG Oxyhemoglobin ABG Sodium ABG Glucose Oxyhemoglobin Carboxyhemoglobin Sodium Potassium Carbon Dioxide BUN Creatinine Glucose POC Glucose 129 H 171 H Calcium Phosphorus Magnesium Lactate Dehydrogenase Triglycerides Arterial Blood Glucose Arterial Blood Ionized Calcium Urine WBC (Auto) Salicylates Acetaminophen 11/23/21 11/23/21 11/23/21 04:49 11:53 16:22 WBC RBC Hgb Hct MCH MCHC RDW Plt Count Lymph % (Auto) [place] % (Auto) Lymph # (Auto) [place] # (Auto) Seg Neutrophils % Lymphocytes % (Manual) Seg Neutrophils # Seg Neutrophils # Man Lymphocytes # (Manual) D-Dimer ABG pH POC ABG pCO2 POC ABG pO2 ABG pO2 61.8 L ABG HCO3 40.9 H ABG O2 Saturation 93.4 L ABG Base Excess 14.6 H ABG Hemoglobin 6.9 L ABG Oxyhemoglobin ABG Sodium ABG Glucose Oxyhemoglobin 90.2 L Carboxyhemoglobin Sodium 146 H Potassium Carbon Dioxide 36 H BUN 21 H Creatinine Glucose 155 H POC Glucose 166 H Calcium Phosphorus Magnesium Lactate Dehydrogenase Triglycerides Arterial Blood Glucose Arterial Blood Ionized Calcium Urine WBC (Auto) Salicylates Acetaminophen 11/23/21 11/23/21 11/24/21 17:11 23:07 05:03 WBC RBC Hgb Hct MCH MCHC RDW Plt Count Lymph % (Auto) [place] % (Auto) Lymph # (Auto) [place] # (Auto) Seg Neutrophils % Lymphocytes % (Manual) Seg Neutrophils # Seg Neutrophils # Man Lymphocytes # (Manual) D-Dimer ABG pH POC ABG pCO2 POC ABG pO2 ABG pO2 ABG HCO3 ABG O2 Saturation ABG Base Excess ABG Hemoglobin ABG Oxyhemoglobin ABG Sodium ABG Glucose Oxyhemoglobin Carboxyhemoglobin Sodium Potassium Carbon Dioxide BUN Creatinine Glucose POC Glucose 142 H 197 H 183 H Calcium Phosphorus Magnesium Lactate Dehydrogenase Triglycerides Arterial Blood Glucose Arterial Blood Ionized Calcium Urine WBC (Auto) Salicylates Acetaminophen 11/24/21 11/24/21 11/24/21 08:33 08:33 09:00 WBC RBC Hgb Hct 43.6 H MCH 26 L MCHC RDW 18.0 H Plt Count Lymph % (Auto) [place] % (Auto) Lymph # (Auto) [place] # (Auto) Seg Neutrophils % Lymphocytes % (Manual) Seg Neutrophils # Seg Neutrophils # Man Lymphocytes # (Manual) D-Dimer ABG pH POC ABG pCO2 POC ABG pO2 ABG pO2 69.1 L ABG HCO3 40.1 H ABG O2 Saturation 93.2 L ABG Base Excess 11.9 H ABG Hemoglobin ABG Oxyhemoglobin ABG Sodium ABG Glucose Oxyhemoglobin 90.3 L Carboxyhemoglobin Sodium Potassium 5.3 H D Carbon Dioxide 36 H BUN 25 H Creatinine 0.5 L Glucose 185 H POC Glucose Calcium Phosphorus Magnesium Lactate Dehydrogenase Triglycerides Arterial Blood Glucose Arterial Blood Ionized Calcium Urine WBC (Auto) Salicylates Acetaminophen 11/24/21 11/24/21 11/25/21 12:00 18:08 00:50 WBC RBC Hgb Hct MCH MCHC RDW Plt Count Lymph % (Auto) [place] % (Auto) Lymph # (Auto) [place] # (Auto) Seg Neutrophils % Lymphocytes % (Manual) Seg Neutrophils # Seg Neutrophils # Man Lymphocytes # (Manual) D-Dimer ABG pH POC ABG pCO2 POC ABG pO2 ABG pO2 67.3 L ABG HCO3 41.6 H 42.7 H ABG O2 Saturation 94.5 L ABG Base Excess 12.3 H 14.7 H ABG Hemoglobin ABG Oxyhemoglobin ABG Sodium ABG Glucose Oxyhemoglobin 93.1 L 91.6 L Carboxyhemoglobin Sodium Potassium Carbon Dioxide BUN Creatinine Glucose POC Glucose 168 H Calcium Phosphorus Magnesium Lactate Dehydrogenase Triglycerides Arterial Blood Glucose Arterial Blood Ionized Calcium Urine WBC (Auto) Salicylates Acetaminophen 11/25/21 11/25/21 11/25/21 04:57 04:57 14:18 WBC RBC 5.13 H Hgb Hct 45.1 H MCH 26 L MCHC RDW 17.7 H Plt Count Lymph % (Auto) [place] % (Auto) Lymph # (Auto) [place] # (Auto) Seg Neutrophils % Lymphocytes % (Manual) Seg Neutrophils # Seg Neutrophils # Man Lymphocytes # (Manual) D-Dimer ABG pH POC ABG pCO2 POC ABG pO2 ABG pO2 65.1 L ABG HCO3 41.7 H ABG O2 Saturation 94.2 L ABG Base Excess 13.4 H ABG Hemoglobin ABG Oxyhemoglobin ABG Sodium ABG Glucose Oxyhemoglobin 91.3 L Carboxyhemoglobin Sodium 146 H Potassium Carbon Dioxide 38 H BUN 26 H Creatinine 0.5 L Glucose 210 H POC Glucose Calcium Phosphorus Magnesium Lactate Dehydrogenase Triglycerides Arterial Blood Glucose Arterial Blood Ionized Calcium Urine WBC (Auto) Salicylates Acetaminophen 11/25/21 11/26/21 11/26/21 19:22 04:28 04:28 WBC RBC 5.05 H Hgb Hct 44.0 H MCH 26 L MCHC RDW 17.6 H Plt Count Lymph % (Auto) [place] % (Auto) Lymph # (Auto) [place] # (Auto) Seg Neutrophils % Lymphocytes % (Manual) Seg Neutrophils # Seg Neutrophils # Man Lymphocytes # (Manual) D-Dimer ABG pH POC ABG pCO2 POC ABG pO2 ABG pO2 ABG HCO3 ABG O2 Saturation ABG Base Excess ABG Hemoglobin ABG Oxyhemoglobin ABG Sodium ABG Glucose Oxyhemoglobin Carboxyhemoglobin Sodium 146 H Potassium Carbon Dioxide 38 H BUN 30 H Creatinine Glucose 124 H POC Glucose 151 H Calcium 10.5 H Phosphorus Magnesium Lactate Dehydrogenase Triglycerides Arterial Blood Glucose Arterial Blood Ionized Calcium Urine WBC (Auto) Salicylates Acetaminophen 11/26/21 11/26/21 11/27/21 05:50 10:28 08:31 WBC 12.4 H RBC 5.62 H Hgb 14.6 H Hct 48.7 H MCH 26 L MCHC RDW 17.9 H Plt Count 469 H Lymph % (Auto) [place] % (Auto) Lymph # (Auto) [place] # (Auto) Seg Neutrophils % Lymphocytes % (Manual) Seg Neutrophils # Seg Neutrophils # Man Lymphocytes # (Manual) D-Dimer ABG pH POC ABG pCO2 POC ABG pO2 ABG pO2 66.5 L ABG HCO3 39.6 H ABG O2 Saturation 92.9 L ABG Base Excess 11.4 H ABG Hemoglobin 16.8 H ABG Oxyhemoglobin ABG Sodium ABG Glucose Oxyhemoglobin 90.3 L Carboxyhemoglobin Sodium Potassium Carbon Dioxide BUN Creatinine Glucose POC Glucose 121 H Calcium Phosphorus Magnesium Lactate Dehydrogenase Triglycerides Arterial Blood Glucose Arterial Blood Ionized Calcium Urine WBC (Auto) Salicylates Acetaminophen 11/27/21 11/27/21 11/27/21 08:31 09:46 11:49 WBC RBC Hgb Hct MCH MCHC RDW Plt Count Lymph % (Auto) [place] % (Auto) Lymph # (Auto) [place] # (Auto) Seg Neutrophils % Lymphocytes % (Manual) Seg Neutrophils # Seg Neutrophils # Man Lymphocytes # (Manual) D-Dimer ABG pH POC ABG pCO2 POC ABG pO2 ABG pO2 ABG HCO3 ABG O2 Saturation ABG Base Excess ABG Hemoglobin ABG Oxyhemoglobin ABG Sodium ABG Glucose Oxyhemoglobin Carboxyhemoglobin Sodium 150 H Potassium Carbon Dioxide 33 H BUN 31 H Creatinine Glucose 135 H POC Glucose 140 H 153 H Calcium 11.0 H Phosphorus Magnesium Lactate Dehydrogenase Triglycerides Arterial Blood Glucose Arterial Blood Ionized Calcium Urine WBC (Auto) Salicylates Acetaminophen 11/27/21 11/27/21 11/27/21 14:16 17:14 23:25 WBC RBC Hgb Hct MCH MCHC RDW Plt Count Lymph % (Auto) [place] % (Auto) Lymph # (Auto) [place] # (Auto) Seg Neutrophils % Lymphocytes % (Manual) Seg Neutrophils # Seg Neutrophils # Man Lymphocytes # (Manual) D-Dimer ABG pH 7.485 H POC ABG pCO2 48.7 H POC ABG pO2 74.5 L ABG pO2 ABG HCO3 ABG O2 Saturation ABG Base Excess ABG Hemoglobin ABG Oxyhemoglobin ABG Sodium 145.5 H ABG Glucose 153 H Oxyhemoglobin Carboxyhemoglobin 1.6 H Sodium Potassium Carbon Dioxide BUN Creatinine Glucose POC Glucose 142 H 123 H Calcium Phosphorus Magnesium Lactate Dehydrogenase Triglycerides Arterial Blood Glucose 153 H Arterial Blood Ionized Calcium 5.4 H Urine WBC (Auto) Salicylates Acetaminophen 11/28/21 11/28/21 11/28/21 03:38 03:38 05:16 WBC RBC 5.05 H Hgb Hct 43.6 H MCH 26 L MCHC RDW 17.8 H Plt Count Lymph % (Auto) [place] % (Auto) Lymph # (Auto) [place] # (Auto) Seg Neutrophils % Lymphocytes % (Manual) Seg Neutrophils # Seg Neutrophils # Man Lymphocytes # (Manual) D-Dimer ABG pH POC ABG pCO2 POC ABG pO2 ABG pO2 ABG HCO3 ABG O2 Saturation ABG Base Excess ABG Hemoglobin ABG Oxyhemoglobin ABG Sodium ABG Glucose Oxyhemoglobin Carboxyhemoglobin Sodium 150 H Potassium Carbon Dioxide 32 H BUN 51 H Creatinine Glucose 143 H POC Glucose 138 H Calcium 10.5 H Phosphorus Magnesium Lactate Dehydrogenase Triglycerides Arterial Blood Glucose Arterial Blood Ionized Calcium Urine WBC (Auto) Salicylates Acetaminophen 11/28/21 11/28/21 11/29/21 17:01 23:51 03:51 WBC RBC Hgb Hct MCH MCHC RDW Plt Count Lymph % (Auto) [place] % (Auto) Lymph # (Auto) [place] # (Auto) Seg Neutrophils % Lymphocytes % (Manual) Seg Neutrophils # Seg Neutrophils # Man Lymphocytes # (Manual) D-Dimer ABG pH POC ABG pCO2 54.1 H POC ABG pO2 70.6 L ABG pO2 ABG HCO3 ABG O2 Saturation ABG Base Excess ABG Hemoglobin ABG Oxyhemoglobin 93.1 L ABG Sodium ABG Glucose 144 H Oxyhemoglobin Carboxyhemoglobin Sodium Potassium Carbon Dioxide BUN Creatinine Glucose POC Glucose 145 H 130 H Calcium Phosphorus Magnesium Lactate Dehydrogenase Triglycerides Arterial Blood Glucose 144 H Arterial Blood Ionized Calcium Urine WBC (Auto) Salicylates Acetaminophen 11/29/21 11/29/21 11/29/21 05:51 05:51 12:09 WBC 11.1 H RBC Hgb Hct MCH 26 L MCHC RDW 17.8 H Plt Count Lymph % (Auto) [place] % (Auto) Lymph # (Auto) [place] # (Auto) Seg Neutrophils % Lymphocytes % (Manual) Seg Neutrophils # Seg Neutrophils # Man Lymphocytes # (Manual) D-Dimer ABG pH POC ABG pCO2 POC ABG pO2 ABG pO2 ABG HCO3 ABG O2 Saturation ABG Base Excess ABG Hemoglobin ABG Oxyhemoglobin ABG Sodium ABG Glucose Oxyhemoglobin Carboxyhemoglobin Sodium Potassium Carbon Dioxide 31 H BUN 42 H Creatinine Glucose 133 H POC Glucose 157 H Calcium Phosphorus Magnesium Lactate Dehydrogenase Triglycerides Arterial Blood Glucose Arterial Blood Ionized Calcium Urine WBC (Auto) Salicylates Acetaminophen 11/29/21 11/30/21 11/30/21 17:27 00:23 04:42 WBC RBC 5.05 H Hgb Hct 43.6 H MCH 26 L MCHC RDW 17.5 H Plt Count Lymph % (Auto) [place] % (Auto) Lymph # (Auto) [place] # (Auto) Seg Neutrophils % Lymphocytes % (Manual) Seg Neutrophils # Seg Neutrophils # Man Lymphocytes # (Manual) D-Dimer ABG pH POC ABG pCO2 POC ABG pO2 ABG pO2 ABG HCO3 ABG O2 Saturation ABG Base Excess ABG Hemoglobin ABG Oxyhemoglobin ABG Sodium ABG Glucose Oxyhemoglobin Carboxyhemoglobin Sodium Potassium Carbon Dioxide BUN Creatinine Glucose POC Glucose 164 H 192 H Calcium Phosphorus Magnesium Lactate Dehydrogenase Triglycerides Arterial Blood Glucose Arterial Blood Ionized Calcium Urine WBC (Auto) Salicylates Acetaminophen 11/30/21 11/30/21 11/30/21 04:42 11:27 12:04 WBC RBC Hgb Hct MCH MCHC RDW Plt Count Lymph % (Auto) [place] % (Auto) Lymph # (Auto) [place] # (Auto) Seg Neutrophils % Lymphocytes % (Manual) Seg Neutrophils # Seg Neutrophils # Man Lymphocytes # (Manual) D-Dimer ABG pH POC ABG pCO2 60.0 H POC ABG pO2 68.3 L ABG pO2 ABG HCO3 ABG O2 Saturation ABG Base Excess ABG Hemoglobin ABG Oxyhemoglobin 90.9 L ABG Sodium 145.1 H ABG Glucose 122 H Oxyhemoglobin Carboxyhemoglobin Sodium Potassium Carbon Dioxide BUN 32 H Creatinine 0.5 L Glucose 178 H POC Glucose 156 H Calcium Phosphorus Magnesium Lactate Dehydrogenase Triglycerides Arterial Blood Glucose 122 H Arterial Blood Ionized Calcium Urine WBC (Auto) Salicylates Acetaminophen 11/30/21 11/30/21 12/01/21 17:35 23:51 04:00 WBC 13.8 H RBC Hgb Hct MCH 26 L MCHC RDW 17.6 H Plt Count 455 H Lymph % (Auto) [place] % (Auto) Lymph # (Auto) [place] # (Auto) Seg Neutrophils % Lymphocytes % (Manual) Seg Neutrophils # Seg Neutrophils # Man Lymphocytes # (Manual) D-Dimer ABG pH POC ABG pCO2 POC ABG pO2 ABG pO2 ABG HCO3 ABG O2 Saturation ABG Base Excess ABG Hemoglobin ABG Oxyhemoglobin ABG Sodium ABG Glucose Oxyhemoglobin Carboxyhemoglobin Sodium Potassium Carbon Dioxide BUN Creatinine Glucose POC Glucose 124 H 158 H Calcium Phosphorus Magnesium Lactate Dehydrogenase Triglycerides Arterial Blood Glucose Arterial Blood Ionized Calcium Urine WBC (Auto) Salicylates Acetaminophen 12/01/21 12/01/21 12/01/21 04:00 06:03 11:13 WBC RBC Hgb Hct MCH MCHC RDW Plt Count Lymph % (Auto) [place] % (Auto) Lymph # (Auto) [place] # (Auto) Seg Neutrophils % Lymphocytes % (Manual) Seg Neutrophils # Seg Neutrophils # Man Lymphocytes # (Manual) D-Dimer ABG pH POC ABG pCO2 POC ABG pO2 ABG pO2 ABG HCO3 ABG O2 Saturation ABG Base Excess ABG Hemoglobin ABG Oxyhemoglobin ABG Sodium ABG Glucose Oxyhemoglobin Carboxyhemoglobin Sodium Potassium Carbon Dioxide BUN 36 H Creatinine 0.5 L Glucose 188 H POC Glucose 178 H 121 H Calcium Phosphorus Magnesium Lactate Dehydrogenase Triglycerides Arterial Blood Glucose Arterial Blood Ionized Calcium Urine WBC (Auto) Salicylates Acetaminophen 12/01/21 12/01/21 12/01/21 11:42 16:54 23:43 WBC RBC Hgb Hct MCH MCHC RDW Plt Count Lymph % (Auto) [place] % (Auto) Lymph # (Auto) [place] # (Auto) Seg Neutrophils % Lymphocytes % (Manual) Seg Neutrophils # Seg Neutrophils # Man Lymphocytes # (Manual) D-Dimer ABG pH POC ABG pCO2 POC ABG pO2 ABG pO2 71.0 L ABG HCO3 32.3 H ABG O2 Saturation 94.5 L ABG Base Excess 5.7 H ABG Hemoglobin ABG Oxyhemoglobin ABG Sodium ABG Glucose Oxyhemoglobin 92.6 L Carboxyhemoglobin Sodium Potassium Carbon Dioxide BUN Creatinine Glucose POC Glucose 129 H 115 H Calcium Phosphorus Magnesium Lactate Dehydrogenase Triglycerides Arterial Blood Glucose Arterial Blood Ionized Calcium Urine WBC (Auto) Salicylates Acetaminophen 12/02/21 12/02/2122 04:55 04:55 05:19 WBC RBC Hgb Hct MCH 26 L MCHC RDW 18.1 H Plt Count 476 H Lymph % (Auto) [place] % (Auto) Lymph # (Auto) [place] # (Auto) Seg Neutrophils % Lymphocytes % (Manual) Seg Neutrophils # Seg Neutrophils # Man Lymphocytes # (Manual) D-Dimer ABG pH POC ABG pCO2 POC ABG pO2 ABG pO2 ABG HCO3 ABG O2 Saturation ABG Base Excess ABG Hemoglobin ABG Oxyhemoglobin ABG Sodium ABG Glucose Oxyhemoglobin Carboxyhemoglobin Sodium Potassium Carbon Dioxide 33 H BUN 30 H Creatinine 0.5 L Glucose 140 H POC Glucose 127 H Calcium Phosphorus Magnesium Lactate Dehydrogenase Triglycerides Arterial Blood Glucose Arterial Blood Ionized Calcium Urine WBC (Auto) Salicylates Acetaminophen 12/02/21 11:33 WBC RBC Hgb Hct MCH MCHC RDW Plt Count Lymph % (Auto) [place] % (Auto) Lymph # (Auto) [place] # (Auto) Seg Neutrophils % Lymphocytes % (Manual) Seg Neutrophils # Seg Neutrophils # Man Lymphocytes # (Manual) D-Dimer ABG pH POC ABG pCO2 POC ABG pO2 ABG pO2 ABG HCO3 ABG O2 Saturation ABG Base Excess ABG Hemoglobin ABG Oxyhemoglobin ABG Sodium ABG Glucose Oxyhemoglobin Carboxyhemoglobin Sodium Potassium Carbon Dioxide BUN Creatinine Glucose POC Glucose 118 H Calcium Phosphorus Magnesium Lactate Dehydrogenase Triglycerides Arterial Blood Glucose Arterial Blood Ionized Calcium Urine WBC (Auto) Salicylates Acetaminophen Allied health notes reviewed: nursing
[2021-12-02] MEDS: hydrALAZINE 20 MG/1 ML INJ IV PRN ×2 (17:21→22:33)
--- NOTE | 2021-12-02 17:57 | Progress Note ---
Assessment and Plan Assessment and plan: This is a 81-year-old AA female with past medical history of CAD, CHF, pulmonary hypertension, COPD, and tobacco abuse admitted for acute hypoxemic respiratory failure 2/2 of bilateral pneumonia vs COPD exacerbation/pulmonary edema requiring intubation and ventilatory support. Hospital Course to Date: 11/18: Patient was seen and examined in the ED. Patient is intubated and sedated on propofol and versed gtt, RASS -3 to -4. Patient is in hypertensive emergency this am, SBP in the 240s, cardene gtt was initiated, maintain SBP less than 160. Leukocytosis noted, UA significant for UTI. Lactic, procal, and CRP are normal. Patient remains afebrile, continue empiric IV abx for now. Tracheal aspirate ordered, blood culture is pending. Continue to f/u on culture data. 11/19: Patient remains intubated and sedated. Patient did not tolerate sedation vacation this am, became tachycardic, hypertensive, with elevated RR and SPO2 in the low 80s. Sedation back on, continue to wean sedation as tolerated for RASS goal of 0 to -2. Pateimt is off cardene gtt, PRN hydralazine for SPO2 above 160. Low K repleted, repeat labs in the am. 11/20: Remains on the vent and sedated, RASS -3. Plan to wean down on sedation, might need to add Seroquel if patient is not tolerating sedation. Hypernatremia and increased BUN/Cr. this am, patient is on lasix BID. Will discuss with [facility] to possibly hold or decreased IV lasix for now, FWF added for high Na. Urinary retention post briggs removal, bladder scan and straight cath per protocol. 11/21: Patient remains on the vent, unable to wean sedation at this time, Seroquel added. Titrate sedation as tolerated for RASS of 0 to -2. Briggs was r einserted overnight for urinary retention, kidney function is stable. 11/22: [facility] reduced FiO2. We will start weaning tomorrow. No acute events reported overnight. 11/23: Patient spiked a fever overnight and was cultured this morning. Attempted CPAP trial again today. An ABG obtained post trial which has been given to [facility]. Slight hypernatremia noted. 11/24: I updated patient's son today, Kwame Salamanca at [phone]. Lasix stopped today. Patient placed on CPAP trial. She lasted on CPAP all day yesterday and was rested overnight on assist control. Given Kayexalate today due to hyperkalemia. 11/25: Patient was on SBT today and was not arousable for a while and a CT head was obtained which showed no acute intracranial abnormality. Patient later became severely agitated and was switched back to assist control and placed back on sedation. Family updated today. Restarted home Coreg due to hypotension. 11/26: SBT today, Haldol as needed. Briggs was removed yesterday bladder scan x2 with urine output. Slight hypernatremia persists. Blood pressure better controlled. 11/27/2021: Patient was extubated by [facility] this morning. Patient was severely agitated and given 2 mg Ativan, SBP 200s and given labatalol x1 10mg, NJ tube placed and given PO BP medications. She had stridor and was given racemic epi. We wanted to place BiPAP but after consolation with Dr. Gallegos it was decided t o intubate the patient. She was intubated by Deidra, RT and given etomidate, versed and fentanyl. CXR in process. On fentanyl and precedex gtt. 11/28: added buspar to help with agitation, restarted serqoul at lower dose. weaned fi02 today. 11/29: Remains on the vent and on sedation, fent and precedx gtts. D/w CCM plan for possible SAT and SBT in the am, hold TF at 6am on 11/30 for possible SAT/SBT. 11/30: Patient mentation slightly better this am, still on predex and fentanyl gtt. However, easily arousable, following simple commands. Tolerated SBT trial for about 2hrs today then patient was placed back on a rate due to increased work of breathing and increased agitation. D/w CCM seroquel increased to BID, plan to try SAT/SBT again the am. 12/01: CONY overnight. Patient mentation continue to improve. Tolerating SBT this am, possible extubation today if ABG is wnr. 12/02: Extubated yesterday, on 4L NC this SPO2 at 100%. Patient is awake following simple commands this am, however, she is confused. Spoke to patient's son, Kwame Salamanca. He was updated on patient's status. He reported that patient was very self sufficient prior to admit, with no neurological nor any psych issues that he knows of. All questions and concerns were voiced at this time. Will continue to monitor for now. D/w [facility] patient is stable for transfer to [facility] Assessment and Plan #Neuro: Agitation - awake but confused, following simple commands - On Seroquel and Buspar - Continue sedation for RASS goal of 0 to -1 - PRN Haldol for agitation - Close monitoring of QTc - Avoid benzodiazepine to reduce the possibility of delirium - PRN analgesia for CPOT greater than 3 - Maintenance of sleep-wake cycle #CHF and Pulmonary HTN #Hypertensive Emergency-resolved #H/o CAD - Patient SBP as in the 240s in the ED - S/p cardene gtt - 12/2020 Echo with a EF of 60- 65% - IV Lasix D/naren - Continue home antihypertensives - Continue blood pressure monitor per protocol - PRN hydralazine for SBP greater than 160 #Acute Hypoxemic Respiratory Failure #COPD Exacerbation #Bilateral Pneumonia #Pulmonary Edema - Chest x-ray shows bilateral pulmonary opacities possibly representing edema/atelectasis or pneumonia. - CT of the chest shows evidence of pulmonary hypertension with dense consolidation along the left lower lobe that is concerning for pneumonia. Mild interstitial pulmonary edema. - Patient intubated in the ED on 11/18, extubated on 11/27 - Patient was reintubated on 11/27 due to stridor - 12/01 extubated, now on 4L NC, SPO2 at 100% - [facility] consulted, appreciate recommendations - IV steroids completed - Aspiration precaution HOB above 30 - PRN ABG and CXR - Continue SPO2 monitoring for SPO2 goal above 92% #GI:H/o GERD - Continue enteral nutrition - Nutrition on consult - Speech eval once mentation is better - Continue PPI- Pepcid - Continue BR #Urinary Retention #Hyperkalemia-improved #Hypokalemia-resolved - Briggs reinserted twice due to urinary retention - LAsix D/naren - Strict intake and output - Monitor and replace electrolytes as needed - Trend BMP - Avoid nephrotoxic medications; Renally dose medications #Elevated D-Dimer - BLE DVT negative - Per [facility] no indication for CTA at this time - Lovenox added for DVT proph. - SCDs to bilateral lower extremities while in bed #ID:Bilateral Pneumonia #Urinary tract Infection #Leukocytosis - Imagings shown bilateral opacities representing pulmonary edema vs pneumonia - WBCs as high as 15.6, now wnr - CRP and procal is normal - COVID swab neg - Urinalysis was significant for UTI. - B. cultures negative - Sputum culture +parisa Albicans - Patient afebrile - Patient completed IV antibiotic course - Daily CBC monitor - Consider ID consult if febrile or/and if leukocytosis reocccur #Endo:Glycemic Control - Continue BG check Q6hrs while on TF - SSI Q6hrs - Avoid Hypoglycemia The high probability of a clinically significant, sudden or life threatening det erioration of the [Neuro, Resp] system(s) required my full and direct attention, intervention and personal management. The aggregate critical care time was [60] minutes. This time is in addition to time spent performing reported procedures but includes the following: [x] Data Review and interpretation [x] Patient assessment and monitoring of vital signs [x] Documentation [x] Medication orders and management Disposition Plan: ICU Total Time Spent with Patient (Minutes): 60 History Interval history: Patient seen and examined at the bedside. Patient is s/p extubation, now 4L NC SPO2 at 100%. Patient is awake but confused, no signs of distress. CONY overnight Hospitalist Physical - Constitutional Vitals: Temp Pulse Resp BP Pulse Ox 98.4 F 67 22 165/73 98 12/02/21 12:00 12/02/21 17:21 12/02/21 16:26 12/02/21 17:21 12/02/21 17:00 General appearance: Present: no acute distress - EENT Eyes: Present: PERRL ENT: hearing intact - Neck Neck: Present: normal ROM - Respiratory Respiratory effort: normal Respiratory: bilateral: diminished - Cardiovascular Rhythm: regular Heart Sounds: Present: S1 & S2 - Extremities Extremities: no ischemia, pulses intact, pulses symmetrical Peripheral Pulses: within normal limits - Abdominal General gastrointestinal: soft, non-tender, normal bowel sounds - Integumentary Integumentary: Present: warm, dry - Psychiatric Psychiatric: other (Confused) - Neurologic Neurologic: moves all extremities, other (Confused, follow simple commands) - Allied Health Allied health notes reviewed: nursing HEART Score - HEART Score Troponin: Troponin T < 0.010 ng/mL (0.00-0.029) 11/18/21 03:25 Results - Labs CBC & Chem 7: 12/02/21 04:55 12/02/21 04:55 Labs: Laboratory Last Values WBC 10.3 K/mm3 (4.5-11.0) 12/02/21 04:55 RBC 4.83 M/mm3 (3.65-5.03) 12/02/21 04:55 Hgb 12.4 gm/dl (10.1-14.3) 12/02/21 04:55 Hct 41.9 % (30.3-42.9) 12/02/21 04:55 MCV 87 fl (79-97) 12/02/21 04:55 MCH 26 pg (28-32) L 12/02/21 04:55 MCHC 30 % (30-34) 12/02/21 04:55 RDW 18.1 % (13.2-15.2) H 12/02/21 04:55 Plt Count 476 K/mm3 (140-440) H 12/02/21 04:55 Lymph % (Auto) 12.3 % (13.4-35.0) L 11/19/21 07:59 Creek % (Auto) 9.6 % (0.0-7.3) H 11/19/21 07:59 Eos % (Auto) 0.7 % (0.0-4.3) 11/19/21 07:59 Baso % (Auto) 0.5 % (0.0-1.8) 11/19/21 07:59 Lymph # (Auto) 1.6 K/mm3 (1.2-5.4) 11/19/21 07:59 Creek # (Auto) 1.2 K/mm3 (0.0-0.8) H 11/19/21 07:59 Eos # (Auto) 0.1 K/mm3 (0.0-0.4) 11/19/21 07:59 Baso # (Auto) 0.1 K/mm3 (0.0-0.1) 11/19/21 07:59 Add Manual Diff Complete 11/18/21 00:19 Total Counted 100 11/18/21 00:19 Seg Neutrophils % 76.9 % (40.0-70.0) H 11/19/21 07:59 Lymphocytes % (Manual) 4.0 % (13.4-35.0) L 11/18/21 00:19 Monocytes % (Manual) 2.0 % (0.0-7.3) 11/18/21 00:19 Nucleated RBC % Not Reportable 11/18/21 00:19 Seg Neutrophils # 9.7 K/mm3 (1.8-7.7) H 11/19/21 07:59 Seg Neutrophils # Man 14.7 K/mm3 (1.8-7.7) H 11/18/21 00:19 Band Neutrophils # 0.0 K/mm3 11/18/21 00:19 Lymphocytes # (Manual) 0.6 K/mm3 (1.2-5.4) L 11/18/21 00:19 Abs React Lymphs (Man) 0.0 K/mm3 11/18/21 00:19 Monocytes # (Manual) 0.3 K/mm3 (0.0-0.8) 11/18/21 00:19 Eosinophils # (Manual) 0.0 K/mm3 (0.0-0.4) 11/18/21 00:19 Basophils # (Manual) 0.0 K/mm3 (0.0-0.1) 11/18/21 00:19 Metamyelocytes # 0.0 K/mm3 11/18/21 00:19 Myelocytes # 0.0 K/mm3 11/18/21 00:19 Promyelocytes # 0.0 K/mm3 11/18/21 00:19 Blast Cells # 0.0 K/mm3 11/18/21 00:19 WBC Morphology Not Reportable 11/18/21 00:19 Hypersegmented Neuts Not Reportable 11/18/21 00:19 Hyposegmented Neuts Not Reportable 11/18/21 00:19 Hypogranular Neuts Not Reportable 11/18/21 00:19 Smudge Cells Not Reportable 11/18/21 00:19 Toxic Granulation Not Reportable 11/18/21 00:19 Toxic Vacuolation Not Reportable 11/18/21 00:19 Dohle Bodies Not Reportable 11/18/21 00:19 Pelger-Huet Anomaly Not Reportable 11/18/21 00:19 Luis Rods Not Reportable 11/18/21 00:19 Platelet Estimate Consistent w auto 11/18/21 00:19 Clumped Platelets Not Reportable 11/18/21 00:19 Plt Clumps, EDTA Not Reportable 11/18/21 00:19 Large Platelets Not Reportable 11/18/21 00:19 Giant Platelets Not Reportable 11/18/21 00:19 Platelet Satelliting Not Reportable 11/18/21 00:19 Plt Morphology Comment Not Reportable 11/18/21 00:19 RBC Morphology Not Reportable 11/18/21 00:19 Dimorphic RBCs Not Reportable 11/18/21 00:19 Polychromasia Not Reportable 11/18/21 00:19 Hypochromasia Not Reportable 11/18/21 00:19 Poikilocytosis Not Reportable 11/18/21 00:19 Anisocytosis 1+ 11/18/21 00:19 Microcytosis Not Reportable 11/18/21 00:19 Macrocytosis Few 11/18/21 00:19 Spherocytes Not Reportable 11/18/21 00:19 Pappenheimer Bodies Not Reportable 11/18/21 00:19 Sickle Cells Not Reportable 11/18/21 00:19 Target Cells Not Reportable 11/18/21 00:19 Tear Drop Cells Not Reportable 11/18/21 00:19 Ovalocytes Not Reportable 11/18/21 00:19 Helmet Cells Not Reportable 11/18/21 00:19 [place] Bodies Not Reportable 11/18/21 00:19 Sayner Rings Not Reportable 11/18/21 00:19 [place] Cells Not Reportable 11/18/21 00:19 Bite Cells Not Reportable 11/18/21 00:19 Crenated Cell Not Reportable 11/18/21 00:19 Elliptocytes Not Reportable 11/18/21 00:19 Acanthocytes (Spur) Not Reportable 11/18/21 00:19 Rouleaux Not Reportable 11/18/21 00:19 Hemoglobin C Crystals Not Reportable 11/18/21 00:19 Schistocytes Not Reportable 11/18/21 00:19 Malaria parasites Not Reportable 11/18/21 00:19 Shahriar Bodies Not Reportable 11/18/21 00:19 Hem Pathologist Commnt No 11/18/21 00:19 PT 12.9 Sec. (12.2-14.9) 11/18/21 00:19 INR 0.88 (0.87-1.13) 11/18/21 00:19 APTT 29.2 Sec. (24.2-36.6) 11/18/21 00:19 D-Dimer 464.80 ng/mlDDU (0-234) H 11/18/21 05:15 ABG pH 7.380 pH Units (7.350-7.450) 12/01/21 11:42 POC ABG pCO2 60.0 mmHg (32.0-48.0) H 11/30/21 12:04 ABG pCO2 55.8 mm Hg 12/01/21 11:42 POC ABG pO2 68.3 mmHg (83-108) L 11/30/21 12:04 ABG pO2 71.0 mm Hg (80.0-90.0) L 12/01/21 11:42 POC ABG HCO3 32.9 11/30/21 12:04 ABG HCO3 32.3 mmol/L (20.0-26.0) H 12/01/21 11:42 ABG O2 Saturation 94.5 % (95.0-99.0) L 12/01/21 11:42 ABG O2 Content 16.8 (0.0-44) 12/01/21 11:42 POC ABG Base Excess 5.5 11/30/21 12:04 ABG Base Excess 5.7 mmol/L (-2.0-3.0) H 12/01/21 11:42 ABG Hemoglobin 12.9 gm/dl (12.0-16.0) 12/01/21 11:42 ABG Oxyhemoglobin 90.9 (94-98) L 11/30/21 12:04 ABG Carboxyhemoglobin 1.5 % (0.0-5.0) 12/01/21 11:42 ABG Methemoglobin 0.5 % (0.0-1.5) 12/01/21 11:42 ABG Sodium 145.1 mmol/L (136.0-145.0) H 11/30/21 12:04 ABG Potassium 4.0 mmol/L (3.40-4.50) 11/30/21 12:04 ABG Chloride 102.0 mmol/L (98-107) 11/30/21 12:04 ABG Glucose 122 mg/dL (65-95) H 11/30/21 12:04 Oxyhemoglobin 92.6 % (95.0-99.0) L 12/01/21 11:42 Carboxyhemoglobin 1.2 (0.5-1.5) 11/30/21 12:04 FiO2 40 % 12/01/21 11:42 FiO2 % 40 11/30/21 12:04 Sodium 145 mmol/L (137-145) 12/02/21 04:55 Potassium 4.6 mmol/L (3.6-5.0) 12/02/21 04:55 Chloride 104.1 mmol/L (98-107) 12/02/21 04:55 Carbon Dioxide 33 mmol/L (22-30) H 12/02/21 04:55 Anion Gap 13 mmol/L 12/02/21 04:55 BUN 30 mg/dL (7-17) H 12/02/21 04:55 Creatinine 0.5 mg/dL (0.6-1.2) L 12/02/21 04:55 Estimated GFR > 60 ml/min 12/02/21 04:55 BUN/Creatinine Ratio 60 % 12/02/21 04:55 Glucose 140 mg/dL (65-100) H 12/02/21 04:55 POC Glucose 139 mg/dL (70-105) H 12/02/21 17:19 Hemoglobin A1c 5.9 % (4-6) 11/19/21 07:59 Lactic Acid 1.40 mmol/L (0.7-2.0) 11/18/21 00:19 Calcium 10.2 mg/dL (8.4-10.2) 12/02/21 04:55 Phosphorus 2.50 mg/dL (2.5-4.5) 12/02/21 04:55 Magnesium 1.90 mg/dL (1.7-2.3) 12/02/21 04:55 Total Bilirubin 0.40 mg/dL (0.1-1.2) 11/18/21 00:19 Direct Bilirubin < 0.2 mg/dL (0-0.2) 11/18/21 00:19 Indirect Bilirubin 0.2 mg/dL 11/18/21 00:19 AST 22 units/L (5-40) 11/18/21 00:19 ALT 25 units/L (7-56) 11/18/21 00:19 Alkaline Phosphatase 99 units/L (35-129) 11/18/21 00:19 Ammonia 54.0 umol/L (25-60) 11/18/21 00:19 Lactate Dehydrogenase 275 units/L (91-180) H 11/18/21 05:15 Troponin T < 0.010 ng/mL (0.00-0.029) 11/18/21 03:25 C-Reactive Protein 0.70 mg/dL (0.00-1.30) 11/18/21 15:47 NT-Pro-B Natriuret Pep 867.7 pg/mL (0-900) 11/18/21 00:19 Total Protein 7.4 g/dL (6.3-8.2) 11/18/21 00:19 Albumin 4.0 g/dL (3.9-5) 11/18/21 00:19 Albumin/Globulin Ratio 1.2 % 11/18/21 00:19 Triglycerides 185 mg/dL (2-149) H 11/22/21 04:39 Lipase 13 units/L (13-60) 11/18/21 00:19 Procalcitonin 0.12 ng/mL (<0.15) 11/18/21 05:15 Arterial Blood Glucose 122 mg/dL (65-95) H 11/30/21 12:04 Arterial Blood Ionized Calcium 5.2 mg/dL (4.6-5.3) 11/29/21 03:51 Urine Color Yellow (Yellow) 11/23/21 12:24 Urine Turbidity Clear (Clear) 11/23/21 12:24 Urine pH 7.0 (5.0-7.0) 11/23/21 12:24 Ur Specific [place] 1.018 (1.003-1.030) 11/23/21 12:24 Urine Protein <15 mg/dl mg/dL (Negative) 11/23/21 12:24 Urine Glucose (UA) Neg mg/dL (Negative) 11/23/21 12:24 Urine Ketones Neg mg/dL (Negative) 11/23/21 12:24 Urine Blood Neg (Negative) 11/23/21 12:24 Urine Nitrite Neg (Negative) 11/23/21 12:24 Urine Bilirubin Neg (Negative) 11/23/21 12:24 Urine Urobilinogen 4.0 mg/dL (<2.0) 11/23/21 12:24 Ur Leukocyte Esterase Neg (Negative) 11/23/21 12:24 Urine WBC (Auto) 1.0 /HPF (0.0-6.0) 11/23/21 12:24 Urine RBC (Auto) 1.0 /HPF (0.0-6.0) 11/23/21 12:24 U Epithel Cells (Auto) 1.0 /HPF (0-13.0) 11/18/21 01:03 Hyaline Casts 3 /LPF 11/18/21 01:03 Urine Mucus Few /HPF 11/18/21 01:03 Salicylates < 0.3 mg/dL (2.8-20.0) L 11/18/21 00:19 Urine Opiates Screen Negative 11/18/21 01:03 Urine Methadone Screen Negative 11/18/21 01:03 Acetaminophen 5.0 ug/mL (10.0-30.0) L 11/18/21 00:19 Ur Barbiturates Screen Negative 11/18/21 01:03 Ur Phencyclidine Scrn Negative 11/18/21 01:03 Ur Amphetamines Screen Negative 11/18/21 01:03 U Benzodiazepines Scrn Negative 11/18/21 01:03 Urine Cocaine Screen Negative 11/18/21 01:03 U Marijuana (THC) Screen Negative 11/18/21 01:03 Drugs of Abuse Note Disclamer 11/18/21 01:03 Plasma/Serum Alcohol < 0.01 % (0-0.07) 11/18/21 00:19 Coronavirus (PCR) Negative (Negative) 11/18/21 Unknown Briggs/IV: Voiding Method Indwelling Catheter Active Medications - Current Medications Current Medications: Generic Name Dose Route Start Last Admin Trade Name Freq PRN Reason Stop Dose Admin Acetaminophen 650 mg 11/18/21 03:10 11/22/21 19:49 Acetaminophen 650 Mg Rect Supp FL 650 mg Q6H PRN Administration Pain MILD(1-3)/Fever >100.5/MONTIEL Acetaminophen 650 mg 11/23/21 00:56 11/28/21 05:37 Acetaminophen 325 Mg/10.15 Ml Oral Liqd Unit Dose FEEDTUBE 650 mg Q6H PRN Administration Non Cardiac Pain or Temp>100.5 Acetylcysteine 200 mg 11/30/21 20:00 12/02/21 13:21 Acetylcysteine 20% 200 Mg/1 Ml *For Inhalation Use* INHALATION 12/03/21 19:59 200 mg Q6HRT PAULINA Administration Albuterol/Ipratropium 1 ampul 11/30/21 15:00 12/02/21 13:21 Ipratropium/Albuterol Sulfate 3 Ml Ampul.Neb IH 1 ampul Q6HRT PAULINA Administration Amlodipine Besylate 10 mg 11/27/21 10:00 12/02/21 09:33 Amlodipine 10 Mg Tab PO 10 mg DAILY PAULINA Administration Lipase/Protease/Amylase 1 each 11/29/21 15:50 Lipase 10,500/Protease 25,000/Amylase 43,750 (Units) Dr Cross FEEDTUBE PRN PRN For Clogged Feeding Tube Arformoterol Tartrate 15 mcg 11/18/21 20:00 12/02/21 08:44 Arformoterol 15 Mcg/2 Ml Nebu IH 15 mcg Q12HRT PAULINA Administration Aspirin 81 mg 11/27/21 10:00 12/02/21 09:33 Aspirin Ec 81 Mg Tab PO 81 mg QDAY PAULINA Administration Budesonide 0.5 mg 11/18/21 20:00 12/02/21 08:44 Budesonide 0.5 Mg/2 Ml Nebu IH 0.5 mg Q12HRT PAULINA Administration Buspirone HCl 7.5 mg 11/28/21 22:00 12/02/21 10:38 Buspirone 5 Mg Tab PO 7.5 mg BID PAULINA Administration Carvedilol 12.5 mg 11/25/21 13:00 12/02/21 09:41 Carvedilol 12.5 Mg Tab FEEDTUBE 12.5 mg BID PAULINA Administration Dextrose 50 ml 11/18/21 10:40 Dextrose 50% In Water (25gm) 50 Ml Syringe IV Q30MIN PRN Hypoglycemia Protocol Enoxaparin Sodium 40 mg 11/19/21 22:00 12/01/21 21:38 Enoxaparin 40 Mg/0.4 Ml Inj SUB-Q 40 mg QDAY@2200 PAULINA Administration Protocol Famotidine 20 mg 11/20/21 10:00 12/02/21 09:34 Famotidine 20 Mg Tab FEEDTUBE 20 mg BID PAULINA Administration Gabapentin 800 mg 12/01/21 12:00 12/02/21 09:33 Gabapentin 400 Mg Cap PO 800 mg BID PAULINA Administration Haloperidol Lactate 5 mg 11/26/21 15:00 11/27/21 04:31 Haloperidol Lactate 5 Mg/1 Ml Inj IV 5 mg Q8HR PRN Administration Agitation Hydralazine HCl 10 mg 11/18/21 10:44 12/02/21 17:21 Hydralazine 20 Mg/1 Ml Inj IV 10 mg Q4HR PRN Administration Hypertension Hydrophilic Ointment 1 applic 11/18/21 15:26 Lip Therapy Vaseline TP Q2HR PRN Dry Lips Insulin Human Lispro 0 unit 11/18/21 12:00 12/02/21 17:23 Insulin Lispro 100 Unit/Ml SUB-Q Not Given Q6HR [facility] Protocol Magnesium Hydroxide 30 ml 11/18/21 03:10 Magnesium Hydroxide (Mom) Oral Liqd Udc PO Q4H PRN Constipation Multi-Ingred Cream/Lotion/Oil/Oint 1 applic 11/18/21 15:26 Mineral Oil/Petrolatum, White Ophth Oint 3.5 Gm OU Q4HR PRN Dry Eye(s) Ondansetron HCl 4 mg 11/18/21 03:10 Ondansetron 4 Mg/2 Ml Inj IV Q8H PRN Nausea And Vomiting Oxycodone HCl 5 mg 11/27/21 09:50 Oxycodone 5 Mg Tab PO Q6H PRN Pain, Moderate (4-6) Quetiapine Fumarate 200 mg 11/30/21 22:00 12/02/21 09:33 Quetiapine 200 Mg Tab PO 200 mg BID PAULINA Administration Scopolamine 1 each 11/30/21 15:00 11/30/21 14:55 Scopolamine Transdermal Patch 72 Hr TD 1 each Q3D PAULINA Administration Senna/Docusate Sodium 1 tab 11/18/21 22:00 12/02/21 09:33 Sennosides/Docusate Sodium 8.6/50 Mg Tab FEEDTUBE 1 tab BID PAULINA Administration Simple Syrup 15 ml 11/29/21 15:50 Simple Syrup 15 Ml FEEDTUBE PRN PRN Hypoglycemia Simple Syrup 30 ml 11/29/21 15:50 Simple Syrup 15 Ml FEEDTUBE PRN PRN Hypoglycemia Sodium Bicarbonate 325 mg 11/29/21 15:50 Sodium Bicarbonate 325 Mg Tab FEEDTUBE PRN PRN For Clogged Feeding Tube Nutrition/Malnutrition Assess - Dietary Evaluation Nutrition/Malnutrition Findings: Nutrition Notes Start: 11/18/21 10:45 Freq: Status: Active Protocol: Document 11/29/21 15:42 ROSE (Rec: 11/29/21 15:50 ROSE [id number]) Nutrition Notes Initial or Follow up Reassessment Current Diagnosis COPD,Coronary Artery Disease, Heart Failure,Respiratory Failure,Hyperlipidemia Other Pertinent Diagnosis Toxic metabolic encephalopathy , Bilat pneu, UTI Current Diet TF - Promote at 65ml/hr Labs/Tests BUN 42 Pertinent Medications Reviewed Height 5 ft 8 in Weight 81.6 kg [place] Body Weight (kg) 63.63 BMI 27.3 Weight Status Overweight Subjective/Other Information Pt extubated on 11/27/21, however she was re-intubated on the same day sec to resp distress. TF infusing at 55ml /hr; per RN, will increase to goal rate this evening. Percent of energy/protein needs met: 82% energy 84% pro Burn Absent Trauma Absent #1 Nutrition Diagnosis Inadequate oral intake Diagnosis Progress(for reassessment Continues documentation) Is patient on ventilator? Yes Is Patient Ambulatory and/or Out of Bed No REE-([facility]-confined to bed) 1614.000 Calculation Used for Recommendations [facility] Additional Notes Pro needs 1.2-2g/k-163g/ day Fluid needs 1ml/kcal Nutrition Intervention Nutrition Support: Advance TF rate to goal of 65ml/hr and provide 50ml water flush q4h. Kcal 1,560 Protein (gm) 98 Carbohydrates (gm) 203 Fat (gm) 41 Fluid (mL) 1,309 Fiber (gm) 0 Goal #1 TF tolerance Goal #2 TF to meet at least 75% energy and pro needs Follow-Up By: 12/03/21 Additional Comments F/U: TF goal rate and tolerance, vent status
[2021-12-02] MEDS: ENOXAPARIN 40 MG/0.4 ML INJ SUB-Q SCH (21:02)
[2021-12-02] MEDS: HALOPERIDOL LACTATE 5 MG/1 ML INJ IV PRN (22:57)
[2021-12-03] MEDS: IPRATROPIUM/ALBUTEROL SULFATE 3 ML AMPUL.NEB IH SCH ×2 (04:18→09:35)
[2021-12-03] MEDS: ACETYLCYSTEINE 20% 200 MG/1 ML *FOR INHALATION USE INHALATION SCH ×3 (04:18→13:25)
[2021-12-03 05:39] LABS: Hematocrit 44.2 % (30.3-42.9); Hemoglobin 13.8 gm/dl (10.1-14.3); Mean Corpuscular HGB Conc 31 % (30-34); Mean Corpuscular Volume 86 fl (79-97); Platelet Count 566 K/mm3 (140-440); Red Blood Count 5.15 M/mm3 (3.65-5.03); Red Cell Distribution Width 17.8 % (13.2-15.2)
[2021-12-03 05:51] LABS: Blood Urea Nitrogen 22 mg/dL (7-17); Hemolysis Index 2
[2021-12-03 05:57] LABS: BUN/Creatinine Ratio 55
[2021-12-03] MEDS: INSULIN LISPRO 100 UNIT/ML SUB-Q SCH ×4 (06:21→18:00)
[2021-12-03] MEDS: ARFORMOTEROL 15 MCG/2 ML NEBU IH SCH ×2 (09:35→21:07)
[2021-12-03] MEDS: BUDESONIDE 0.5 MG/2 ML NEBU IH SCH ×2 (09:35→21:07)
[2021-12-03] MEDS: GABAPENTIN 400 MG CAP PO SCH ×2 (09:45→22:00)
[2021-12-03] MEDS: SCOPOLAMINE TRANSDERMAL PATCH 72 HR TD SCH (09:50)
[2021-12-03] MEDS: SENNOSIDES/DOCUSATE SODIUM 8.6/50 MG TAB FEEDTUBE SCH ×2 (09:50→22:27)
[2021-12-03] MEDS: amLODIPine 10 MG TAB PO SCH (09:50)
[2021-12-03] MEDS: ASPIRIN EC 81 MG TAB PO SCH (09:50)
[2021-12-03] MEDS: FAMOTIDINE 20 MG TAB FEEDTUBE SCH ×2 (09:50→22:28)
[2021-12-03] MEDS: carvediloL 12.5 MG TAB FEEDTUBE SCH ×2 (09:50→22:29)
--- NOTE | 2021-12-03 11:35 | Progress Note ---
Assessment and Plan Assessment and plan: This is a 81-year-old AA female with past medical history of CAD, CHF, pulmonary hypertension, COPD, and tobacco abuse admitted for acute hypoxemic respiratory failure 2/2 of bilateral pneumonia vs COPD exacerbation/pulmonary edema requiring intubation and ventilatory support. Hospital Course to Date: 11/18: Patient was seen and examined in the ED. Patient is intubated and sedated on propofol and versed gtt, RASS -3 to -4. Patient is in hypertensive emergency this am, SBP in the 240s, cardene gtt was initiated, maintain SBP less than 160. Leukocytosis noted, UA significant for UTI. Lactic, procal, and CRP are normal. Patient remains afebrile, continue empiric IV abx for now. Tracheal aspirate ordered, blood culture is pending. Continue to f/u on culture data. 11/19: Patient remains intubated and sedated. Patient did not tolerate sedation vacation this am, became tachycardic, hypertensive, with elevated RR and SPO2 in the low 80s. Sedation back on, continue to wean sedation as tolerated for RASS goal of 0 to -2. Pateimt is off cardene gtt, PRN hydralazine for SPO2 above 160. Low K repleted, repeat labs in the am. 11/20: Remains on the vent and sedated, RASS -3. Plan to wean down on sedation, might need to add Seroquel if patient is not tolerating sedation. Hypernatremia and increased BUN/Cr. this am, patient is on lasix BID. Will discuss with [facility] to possibly hold or decreased IV lasix for now, FWF added for high Na. Urinary retention post briggs removal, bladder scan and straight cath per protocol. 11/21: Patient remains on the vent, unable to wean sedation at this time, Seroquel added. Titrate sedation as tolerated for RASS of 0 to -2. Briggs was r einserted overnight for urinary retention, kidney function is stable. 11/22: [facility] reduced FiO2. We will start weaning tomorrow. No acute events reported overnight. 11/23: Patient spiked a fever overnight and was cultured this morning. Attempted CPAP trial again today. An ABG obtained post trial which has been given to [facility]. Slight hypernatremia noted. 11/24: I updated patient's son today, Kwame Salamanca at [phone]. Lasix stopped today. Patient placed on CPAP trial. She lasted on CPAP all day yesterday and was rested overnight on assist control. Given Kayexalate today due to hyperkalemia. 11/25: Patient was on SBT today and was not arousable for a while and a CT head was obtained which showed no acute intracranial abnormality. Patient later became severely agitated and was switched back to assist control and placed back on sedation. Family updated today. Restarted home Coreg due to hypotension. 11/26: SBT today, Haldol as needed. Briggs was removed yesterday bladder scan x2 with urine output. Slight hypernatremia persists. Blood pressure better controlled. 11/27/2021: Patient was extubated by [facility] this morning. Patient was severely agitated and given 2 mg Ativan, SBP 200s and given labatalol x1 10mg, NJ tube placed and given PO BP medications. She had stridor and was given racemic epi. We wanted to place BiPAP but after consolation with Dr. Gallegos it was decided t o intubate the patient. She was intubated by Deidra, RT and given etomidate, versed and fentanyl. CXR in process. On fentanyl and precedex gtt. 11/28: added buspar to help with agitation, restarted serqoul at lower dose. weaned fi02 today. 11/29: Remains on the vent and on sedation, fent and precedx gtts. D/w CCM plan for possible SAT and SBT in the am, hold TF at 6am on 11/30 for possible SAT/SBT. 11/30: Patient mentation slightly better this am, still on predex and fentanyl gtt. However, easily arousable, following simple commands. Tolerated SBT trial for about 2hrs today then patient was placed back on a rate due to increased work of breathing and increased agitation. D/w CCM seroquel increased to BID, plan to try SAT/SBT again the am. 12/01: CONY overnight. Patient mentation continue to improve. Tolerating SBT this am, possible extubation today if ABG is wnr. 12/02: Extubated yesterday, on 4L NC this SPO2 at 100%. Patient is awake following simple commands this am, however, she is confused. Spoke to patient's son, Kwame Salamanca. He was updated on patient's status. He reported that patient was very self sufficient prior to admit, with no neurological nor any psych issues that he knows of. All questions and concerns were voiced at this time. Will continue to monitor for now. D/w CCM patient is stable for transfer to IMCU 12/03: Slight improvement in mentation this am, however still drowsy and disorientated. Will hold seroquel and Buspar for now. Patient is on ventimask this am, plan to wean O2 supplementation for SPO2 goal above 90%. Transfer order placed for IMCU Assessment and Plan #Neuro: Agitation - Slight improvement in mentation this am - Still drowsy and disorientated - Seroquel and Buspar D/C - PRN Haldol for agitation - Close monitoring of QTc - Avoid benzodiazepine to reduce the possibility of delirium - PRN analgesia for CPOT greater than 3 - Maintenance of sleep-wake cycle #CHF and Pulmonary HTN #Hypertensive Emergency-resolved #H/o CAD - Patient SBP as in the 240s in the ED - S/p cardene gtt - 12/2020 Echo with a EF of 60- 65% - IV Lasix D/naren - Continue home antihypertensives - Continue blood pressure monitor per protocol - PRN hydralazine for SBP greater than 160 #Acute Hypoxemic Respiratory Failure #COPD Exacerbation #Bilateral Pneumonia #Pulmonary Edema - Chest x-ray shows bilateral pulmonary opacities possibly representing edema/atelectasis or pneumonia. - CT of the chest shows evidence of pulmonary hypertension with dense consolidation along the left lower lobe that is concerning for pneumonia. Mild interstitial pulmonary edema. - Patient intubated in the ED on 11/18, extubated on 11/27 - Patient was reintubated on 11/27 due to stridor - 12/01 extubated - On venti mask this am - Wean O2 supplementation as tolerated - [facility] consulted, appreciate recommendations - IV steroids completed - Aspiration precaution HOB above 30 - PRN ABG and CXR - Continue SPO2 monitoring for SPO2 goal above 90% #GI:H/o GERD - Continue enteral nutrition - Nutrition on consult - Speech eval once mentation is better - Continue PPI- Pepcid - Continue BR #Urinary Retention #Hyperkalemia-improved #Hypokalemia-resolved - Briggs reinserted twice due to urinary retention - LAsix D/naren - Strict intake and output - Monitor and replace electrolytes as needed - Trend BMP - Avoid nephrotoxic medications; Renally dose medications #Elevated D-Dimer - BLE DVT negative - Per CCM no indication for CTA at this time - Lovenox added for DVT proph. - SCDs to bilateral lower extremities while in bed #ID:Bilateral Pneumonia #Urinary tract Infection #Leukocytosis - Imagings shown bilateral opacities representing pulmonary edema vs pneumonia - WBCs as high as 15.6, now wnr - CRP and procal is normal - COVID swab neg - Urinalysis was significant for UTI. - B. cultures negative - Sputum culture +parisa Albicans - Patient afebrile - Patient completed IV antibiotic course - Daily CBC monitor - Consider ID consult if febrile or/and if leukocytosis reocccur #Endo:Glycemic Control - Continue BG check Q6hrs while on TF - SSI Q6hrs - Avoid Hypoglycemia The high probability of a clinically significant, sudden or life threatening deterioration of the [Neuro, Resp] system(s) required my full and direct attention, intervention and personal management. The aggregate critical care time was [40] minutes. This time is in addition to time spent performing reported procedures but includes the following: [x] Data Review and interpretation [x] Patient assessment and monitoring of vital signs [x] Documentation [x] Medication orders and management Disposition Plan: ICU Total Time Spent with Patient (Minutes): 40 History Interval history: Patient seen and examined at the bedside. Patient is drowsy with some disorientation, however mentation improved overnight. Unclear why patient is on Venti mask this am, SPO2 at 100%. CONY overnight Hospitalist Physical - Constitutional Vitals: Temp Pulse Resp BP Pulse Ox 98.5 F 69 28 H 179/83 99 12/03/21 07:51 12/03/21 10:31 12/03/21 10:31 12/03/21 10:31 12/03/21 10:31 General appearance: Present: no acute distress - EENT Eyes: Present: PERRL ENT: hearing intact - Neck Neck: Present: normal ROM - Respiratory Respiratory effort: normal Respiratory: bilateral: diminished - Cardiovascular Rhythm: regular Heart Sounds: Present: S1 & S2 - Extremities Extremities: no ischemia, pulses intact, pulses symmetrical Extremity abnormal: edema - Peripheral Assessment Generalized Edema Type: Non-pitting Edema Degree: 1+ Capillary Refill: < 3 seconds Skin Temperature: Warm Peripheral Pulses: within normal limits - Abdominal General gastrointestinal: soft, non-tender, normal bowel sounds - Integumentary Integumentary: Present: warm, dry - Psychiatric Psychiatric: cooperative, other (Still drownsy and disoriented at time) - Neurologic Neurologic: moves all extremities, other (Still drownsy and disoriented at time) - Allied Health Allied health notes reviewed: nursing HEART Score - HEART Score Troponin: Troponin T < 0.010 ng/mL (0.00-0.029) 11/18/21 03:25 Results - Labs CBC & Chem 7: 12/03/21 04:52 12/03/21 04:52 Labs: Laboratory Last Values WBC 9.9 K/mm3 (4.5-11.0) 12/03/21 04:52 RBC 5.15 M/mm3 (3.65-5.03) H 12/03/21 04:52 Hgb 13.8 gm/dl (10.1-14.3) 12/03/21 04:52 Hct 44.2 % (30.3-42.9) H 12/03/21 04:52 MCV 86 fl (79-97) 12/03/21 04:52 MCH 27 pg (28-32) L 12/03/21 04:52 MCHC 31 % (30-34) 12/03/21 04:52 RDW 17.8 % (13.2-15.2) H 12/03/21 04:52 Plt Count 566 K/mm3 (140-440) H 12/03/21 04:52 Lymph % (Auto) 12.3 % (13.4-35.0) L 11/19/21 07:59 [place] % (Auto) 9.6 % (0.0-7.3) H 11/19/21 07:59 Eos % (Auto) 0.7 % (0.0-4.3) 11/19/21 07:59 Baso % (Auto) 0.5 % (0.0-1.8) 11/19/21 07:59 Lymph # (Auto) 1.6 K/mm3 (1.2-5.4) 11/19/21 07:59 [place] # (Auto) 1.2 K/mm3 (0.0-0.8) H 11/19/21 07:59 Eos # (Auto) 0.1 K/mm3 (0.0-0.4) 11/19/21 07:59 Baso # (Auto) 0.1 K/mm3 (0.0-0.1) 11/19/21 07:59 Add Manual Diff Complete 11/18/21 00:19 Total Counted 100 11/18/21 00:19 Seg Neutrophils % 76.9 % (40.0-70.0) H 11/19/21 07:59 Lymphocytes % (Manual) 4.0 % (13.4-35.0) L 11/18/21 00:19 Monocytes % (Manual) 2.0 % (0.0-7.3) 11/18/21 00:19 Nucleated RBC % Not Reportable 11/18/21 00:19 Seg Neutrophils # 9.7 K/mm3 (1.8-7.7) H 11/19/21 07:59 Seg Neutrophils # Man 14.7 K/mm3 (1.8-7.7) H 11/18/21 00:19 Band Neutrophils # 0.0 K/mm3 11/18/21 00:19 Lymphocytes # (Manual) 0.6 K/mm3 (1.2-5.4) L 11/18/21 00:19 Abs React Lymphs (Man) 0.0 K/mm3 11/18/21 00:19 Monocytes # (Manual) 0.3 K/mm3 (0.0-0.8) 11/18/21 00:19 Eosinophils # (Manual) 0.0 K/mm3 (0.0-0.4) 11/18/21 00:19 Basophils # (Manual) 0.0 K/mm3 (0.0-0.1) 11/18/21 00:19 Metamyelocytes # 0.0 K/mm3 11/18/21 00:19 Myelocytes # 0.0 K/mm3 11/18/21 00:19 Promyelocytes # 0.0 K/mm3 11/18/21 00:19 Blast Cells # 0.0 K/mm3 11/18/21 00:19 WBC Morphology Not Reportable 11/18/21 00:19 Hypersegmented Neuts Not Reportable 11/18/21 00:19 Hyposegmented Neuts Not Reportable 11/18/21 00:19 Hypogranular Neuts Not Reportable 11/18/21 00:19 Smudge Cells Not Reportable 11/18/21 00:19 Toxic Granulation Not Reportable 11/18/21 00:19 Toxic Vacuolation Not Reportable 11/18/21 00:19 Dohle Bodies Not Reportable 11/18/21 00:19 Pelger-Huet Anomaly Not Reportable 11/18/21 00:19 Luis Rods Not Reportable 11/18/21 00:19 Platelet Estimate Consistent w auto 11/18/21 00:19 Clumped Platelets Not Reportable 11/18/21 00:19 Plt Clumps, EDTA Not Reportable 11/18/21 00:19 Large Platelets Not Reportable 11/18/21 00:19 Giant Platelets Not Reportable 11/18/21 00:19 Platelet Satelliting Not Reportable 11/18/21 00:19 Plt Morphology Comment Not Reportable 11/18/21 00:19 RBC Morphology Not Reportable 11/18/21 00:19 Dimorphic RBCs Not Reportable 11/18/21 00:19 Polychromasia Not Reportable 11/18/21 00:19 Hypochromasia Not Reportable 11/18/21 00:19 Poikilocytosis Not Reportable 11/18/21 00:19 Anisocytosis 1+ 11/18/21 00:19 Microcytosis Not Reportable 11/18/21 00:19 Macrocytosis Few 11/18/21 00:19 Spherocytes Not Reportable 11/18/21 00:19 Pappenheimer Bodies Not Reportable 11/18/21 00:19 Sickle Cells Not Reportable 11/18/21 00:19 Target Cells Not Reportable 11/18/21 00:19 Tear Drop Cells Not Reportable 11/18/21 00:19 Ovalocytes Not Reportable 11/18/21 00:19 Helmet Cells Not Reportable 11/18/21 00:19 [place] Bodies Not Reportable 11/18/21 00:19 [place] Rings Not Reportable 11/18/21 00:19 [place] Cells Not Reportable 11/18/21 00:19 Bite Cells Not Reportable 11/18/21 00:19 Crenated Cell Not Reportable 11/18/21 00:19 Elliptocytes Not Reportable 11/18/21 00:19 Acanthocytes (Spur) Not Reportable 11/18/21 00:19 Rouleaux Not Reportable 11/18/21 00:19 Hemoglobin C Crystals Not Reportable 11/18/21 00:19 Schistocytes Not Reportable 11/18/21 00:19 Malaria parasites Not Reportable 11/18/21 00:19 Shahriar Bodies Not Reportable 11/18/21 00:19 Hem Pathologist Commnt No 11/18/21 00:19 PT 12.9 Sec. (12.2-14.9) 11/18/21 00:19 INR 0.88 (0.87-1.13) 11/18/21 00:19 APTT 29.2 Sec. (24.2-36.6) 11/18/21 00:19 D-Dimer 464.80 ng/mlDDU (0-234) H 11/18/21 05:15 ABG pH 7.380 pH Units (7.350-7.450) 12/01/21 11:42 POC ABG pCO2 60.0 mmHg (32.0-48.0) H 11/30/21 12:04 ABG pCO2 55.8 mm Hg 12/01/21 11:42 POC ABG pO2 68.3 mmHg (83-108) L 11/30/21 12:04 ABG pO2 71.0 mm Hg (80.0-90.0) L 12/01/21 11:42 POC ABG HCO3 32.9 11/30/21 12:04 ABG HCO3 32.3 mmol/L (20.0-26.0) H 12/01/21 11:42 ABG O2 Saturation 94.5 % (95.0-99.0) L 12/01/21 11:42 ABG O2 Content 16.8 (0.0-44) 12/01/21 11:42 POC ABG Base Excess 5.5 11/30/21 12:04 ABG Base Excess 5.7 mmol/L (-2.0-3.0) H 12/01/21 11:42 ABG Hemoglobin 12.9 gm/dl (12.0-16.0) 12/01/21 11:42 ABG Oxyhemoglobin 90.9 (94-98) L 11/30/21 12:04 ABG Carboxyhemoglobin 1.5 % (0.0-5.0) 12/01/21 11:42 ABG Methemoglobin 0.5 % (0.0-1.5) 12/01/21 11:42 ABG Sodium 145.1 mmol/L (136.0-145.0) H 11/30/21 12:04 ABG Potassium 4.0 mmol/L (3.40-4.50) 11/30/21 12:04 ABG Chloride 102.0 mmol/L (98-107) 11/30/21 12:04 ABG Glucose 122 mg/dL (65-95) H 11/30/21 12:04 Oxyhemoglobin 92.6 % (95.0-99.0) L 12/01/21 11:42 Carboxyhemoglobin 1.2 (0.5-1.5) 11/30/21 12:04 FiO2 40 % 12/01/21 11:42 FiO2 % 40 11/30/21 12:04 Sodium 141 mmol/L (137-145) 12/03/21 04:52 Potassium 4.4 mmol/L (3.6-5.0) 12/03/21 04:52 Chloride 101.4 mmol/L (98-107) 12/03/21 04:52 Carbon Dioxide 29 mmol/L (22-30) 12/03/21 04:52 Anion Gap 15 mmol/L 12/03/21 04:52 BUN 22 mg/dL (7-17) H 12/03/21 04:52 Creatinine 0.4 mg/dL (0.6-1.2) L 12/03/21 04:52 Estimated GFR > 60 ml/min 12/03/21 04:52 BUN/Creatinine Ratio 55 % 12/03/21 04:52 Glucose 142 mg/dL (65-100) H 12/03/21 04:52 POC Glucose 147 mg/dL (70-105) H 12/03/21 11:16 Hemoglobin A1c 5.9 % (4-6) 11/19/21 07:59 Lactic Acid 1.40 mmol/L (0.7-2.0) 11/18/21 00:19 Calcium 10.0 mg/dL (8.4-10.2) 12/03/21 04:52 Phosphorus 2.50 mg/dL (2.5-4.5) 12/02/21 04:55 Magnesium 1.90 mg/dL (1.7-2.3) 12/02/21 04:55 Total Bilirubin 0.40 mg/dL (0.1-1.2) 11/18/21 00:19 Direct Bilirubin < 0.2 mg/dL (0-0.2) 11/18/21 00:19 Indirect Bilirubin 0.2 mg/dL 11/18/21 00:19 AST 22 units/L (5-40) 11/18/21 00:19 ALT 25 units/L (7-56) 11/18/21 00:19 Alkaline Phosphatase 99 units/L (35-129) 11/18/21 00:19 Ammonia 54.0 umol/L (25-60) 11/18/21 00:19 Lactate Dehydrogenase 275 units/L (91-180) H 11/18/21 05:15 Troponin T < 0.010 ng/mL (0.00-0.029) 11/18/21 03:25 C-Reactive Protein 0.70 mg/dL (0.00-1.30) 11/18/21 15:47 NT-Pro-B Natriuret Pep 867.7 pg/mL (0-900) 11/18/21 00:19 Total Protein 7.4 g/dL (6.3-8.2) 11/18/21 00:19 Albumin 4.0 g/dL (3.9-5) 11/18/21 00:19 Albumin/Globulin Ratio 1.2 % 11/18/21 00:19 Triglycerides 185 mg/dL (2-149) H 11/22/21 04:39 Lipase 13 units/L (13-60) 11/18/21 00:19 Procalcitonin 0.12 ng/mL (<0.15) 11/18/21 05:15 Arterial Blood Glucose 122 mg/dL (65-95) H 11/30/21 12:04 Arterial Blood Ionized Calcium 5.2 mg/dL (4.6-5.3) 11/29/21 03:51 Urine Color Yellow (Yellow) 11/23/21 12:24 Urine Turbidity Clear (Clear) 11/23/21 12:24 Urine pH 7.0 (5.0-7.0) 11/23/21 12:24 Ur Specific [place] 1.018 (1.003-1.030) 11/23/21 12:24 Urine Protein <15 mg/dl mg/dL (Negative) 11/23/21 12:24 Urine Glucose (UA) Neg mg/dL (Negative) 11/23/21 12:24 Urine Ketones Neg mg/dL (Negative) 11/23/21 12:24 Urine Blood Neg (Negative) 11/23/21 12:24 Urine Nitrite Neg (Negative) 11/23/21 12:24 Urine Bilirubin Neg (Negative) 11/23/21 12:24 Urine Urobilinogen 4.0 mg/dL (<2.0) 11/23/21 12:24 Ur Leukocyte Esterase Neg (Negative) 11/23/21 12:24 Urine WBC (Auto) 1.0 /HPF (0.0-6.0) 11/23/21 12:24 Urine RBC (Auto) 1.0 /HPF (0.0-6.0) 11/23/21 12:24 U Epithel Cells (Auto) 1.0 /HPF (0-13.0) 11/18/21 01:03 Hyaline Casts 3 /LPF 11/18/21 01:03 Urine Mucus Few /HPF 11/18/21 01:03 Salicylates < 0.3 mg/dL (2.8-20.0) L 11/18/21 00:19 Urine Opiates Screen Negative 11/18/21 01:03 Urine Methadone Screen Negative 11/18/21 01:03 Acetaminophen 5.0 ug/mL (10.0-30.0) L 11/18/21 00:19 Ur Barbiturates Screen Negative 11/18/21 01:03 Ur Phencyclidine Scrn Negative 11/18/21 01:03 Ur Amphetamines Screen Negative 11/18/21 01:03 U Benzodiazepines Scrn Negative 11/18/21 01:03 Urine Cocaine Screen Negative 11/18/21 01:03 U Marijuana (THC) Screen Negative 11/18/21 01:03 Drugs of Abuse Note Disclamer 11/18/21 01:03 Plasma/Serum Alcohol < 0.01 % (0-0.07) 11/18/21 00:19 Coronavirus (PCR) Negative (Negative) 11/18/21 Unknown Briggs/IV: Voiding Method Indwelling Catheter Active Medications - Current Medications Current Medications: Generic Name Dose Route Start Last Admin Trade Name Freq PRN Reason Stop Dose Admin Acetaminophen 650 mg 11/18/21 03:10 11/22/21 19:49 Acetaminophen 650 Mg Rect Supp LA 650 mg Q6H PRN Administration Pain MILD(1-3)/Fever >100.5/MONTIEL Acetaminophen 650 mg 11/23/21 00:56 11/28/21 05:37 Acetaminophen 325 Mg/10.15 Ml Oral Liqd Unit Dose FEEDTUBE 650 mg Q6H PRN Administration Non Cardiac Pain or Temp>100.5 Acetylcysteine 200 mg 11/30/21 20:00 12/03/21 09:35 Acetylcysteine 20% 200 Mg/1 Ml *For Inhalation Use* INHALATION 12/03/21 19:59 200 mg Q6HRT PAULINA Administration Albuterol/Ipratropium 1 ampul 11/30/21 15:00 12/03/21 09:35 Ipratropium/Albuterol Sulfate 3 Ml Ampul.Neb IH 1 ampul Q6HRT PAULINA Administration Amlodipine Besylate 10 mg 11/27/21 10:00 12/03/21 09:50 Amlodipine 10 Mg Tab PO 10 mg DAILY PAULINA Administration Lipase/Protease/Amylase 1 each 11/29/21 15:50 Lipase 10,500/Protease 25,000/Amylase 43,750 (Units) Dr Cross FEEDTUBE PRN PRN For Clogged Feeding Tube Arformoterol Tartrate 15 mcg 11/18/21 20:00 12/03/21 09:35 Arformoterol 15 Mcg/2 Ml Nebu IH 15 mcg Q12HRT PAULINA Administration Aspirin 81 mg 11/27/21 10:00 12/03/21 09:50 Aspirin Ec 81 Mg Tab PO 81 mg QDAY PAULINA Administration Budesonide 0.5 mg 11/18/21 20:00 12/03/21 09:35 Budesonide 0.5 Mg/2 Ml Nebu IH 0.5 mg Q12HRT PAULINA Administration Carvedilol 12.5 mg 11/25/21 13:00 12/03/21 09:50 Carvedilol 12.5 Mg Tab FEEDTUBE 12.5 mg BID PAULINA Administration Dextrose 50 ml 11/18/21 10:40 Dextrose 50% In Water (25gm) 50 Ml Syringe IV Q30MIN PRN Hypoglycemia Protocol Enoxaparin Sodium 40 mg 11/19/21 22:00 12/02/21 21:02 Enoxaparin 40 Mg/0.4 Ml Inj SUB-Q 40 mg QDAY@2200 PAULINA Administration Protocol Famotidine 20 mg 11/20/21 10:00 12/03/21 09:50 Famotidine 20 Mg Tab FEEDTUBE 20 mg BID PAULINA Administration Gabapentin 800 mg 12/01/21 12:00 12/03/21 09:45 Gabapentin 400 Mg Cap PO 800 mg BID PAULINA Administration Haloperidol Lactate 5 mg 11/26/21 15:00 12/02/21 22:57 Haloperidol Lactate 5 Mg/1 Ml Inj IV 5 mg Q8HR PRN Administration Agitation Hydralazine HCl 10 mg 11/18/21 10:44 12/02/21 22:33 Hydralazine 20 Mg/1 Ml Inj IV 10 mg Q4HR PRN Administration Hypertension Hydrophilic Ointment 1 applic 11/18/21 15:26 Lip Therapy Vaseline TP Q2HR PRN Dry Lips Insulin Human Lispro 0 unit 11/18/21 12:00 12/03/21 11:34 Insulin Lispro 100 Unit/Ml SUB-Q Not Given Q6HR [facility] Protocol Magnesium Hydroxide 30 ml 11/18/21 03:10 Magnesium Hydroxide (Mom) Oral Liqd Udc PO Q4H PRN Constipation Multi-Ingred Cream/Lotion/Oil/Oint 1 applic 11/18/21 15:26 Mineral Oil/Petrolatum, White Ophth Oint 3.5 Gm OU Q4HR PRN Dry Eye(s) Ondansetron HCl 4 mg 11/18/21 03:10 Ondansetron 4 Mg/2 Ml Inj IV Q8H PRN Nausea And Vomiting Oxycodone HCl 5 mg 11/27/21 09:50 Oxycodone 5 Mg Tab PO Q6H PRN Pain, Moderate (4-6) Scopolamine 1 each 11/30/21 15:00 12/03/21 09:50 Scopolamine Transdermal Patch 72 Hr TD 1 each Q3D PAULINA Administration Senna/Docusate Sodium 1 tab 11/18/21 22:00 12/03/21 09:50 Sennosides/Docusate Sodium 8.6/50 Mg Tab FEEDTUBE 1 tab BID PAULINA Administration Simple Syrup 15 ml 11/29/21 15:50 Simple Syrup 15 Ml FEEDTUBE PRN PRN Hypoglycemia Simple Syrup 30 ml 11/29/21 15:50 Simple Syrup 15 Ml FEEDTUBE PRN PRN Hypoglycemia Sodium Bicarbonate 325 mg 11/29/21 15:50 Sodium Bicarbonate 325 Mg Tab FEEDTUBE PRN PRN For Clogged Feeding Tube Nutrition/Malnutrition Assess - Dietary Evaluation Nutrition/Malnutrition Findings: Nutrition Notes Start: 11/18/21 10:45 Freq: Status: Active Protocol: Document 11/29/21 15:42 ROSE (Rec: 11/29/21 15:50 NHALL [id number]) Nutrition Notes Initial or Follow up Reassessment Current Diagnosis COPD,Coronary Artery Disease, Heart Failure,Respiratory Failure,Hyperlipidemia Other Pertinent Diagnosis Toxic metabolic encephalopathy , Bilat pneu, UTI Current Diet TF - Promote at 65ml/hr Labs/Tests BUN 42 Pertinent Medications Reviewed Height 5 ft 8 in Weight 81.6 kg [place] Body Weight (kg) 63.63 BMI 27.3 Weight Status Overweight Subjective/Other Information Pt extubated on 11/27/21, however she was re-intubated on the same day sec to resp distress. TF infusing at 55ml /hr; per RN, will increase to goal rate this evening. Percent of energy/protein needs met: 82% energy 84% pro Burn Absent Trauma Absent #1 Nutrition Diagnosis Inadequate oral intake Diagnosis Progress(for reassessment Continues documentation) Is patient on ventilator? Yes Is Patient Ambulatory and/or Out of Bed No REE-([facility]-confined to bed) 1614.000 Calculation Used for Recommendations [facility] Additional Notes Pro needs 1.2-2g/k-163g/ day Fluid needs 1ml/kcal Nutrition Intervention Nutrition Support: Advance TF rate to goal of 65ml/hr and provide 50ml water flush q4h. Kcal 1,560 Protein (gm) 98 Carbohydrates (gm) 203 Fat (gm) 41 Fluid (mL) 1,309 Fiber (gm) 0 Goal #1 TF tolerance Goal #2 TF to meet at least 75% energy and pro needs Follow-Up By: 12/03/21 Additional Comments F/U: TF goal rate and tolerance, vent status
[2021-12-03] MEDS ORDERED: ALBUTEROL 2.5 MG/3 ML NEBU IH PRN (12:16)
--- NOTE | 2021-12-03 13:34 | Progress Note ---
Assessment and Plan Acute exacerbation of chronic obstructive lung disease Acute hypoxemic respiratory failure Acute congestive heart failure exacerbation (? Flash Pulmonary edema) Community-acquired pneumonia Leukocytosis History of coronary artery disease Gastroesophageal reflux disease Arthritis Hyperlipidemia Obesity Elevated D-dimers Acute toxic metabolic encephalopathy Urinary tract infection Likely pulmonary hypertension Hypertensive emergency - Seroquel & Buspar discontinued - continue Neurontin (600 mg po bid) - swallow evaluation and advance diet as tolerated - continue BIPAP scheduled qhs - resume Flomax once she passed swallow evaluation - change duonebs to prm; continue LABA & ICS re: COPD - continue care as below otherwise; - s/p systemic steroids for tentative laryngeal edema (cuff leak better) - complete mucomyst nebs course - continue to wean supplemental oxygen for target O2 sat's > 90% acutely - aspiration precautions - bronchodilators with pulmonary hygiene per RT - wean per pulmonary driven protocols otherwise - avoid nephrotoxins, renally dose all medications - continue accuchecks with glycemic control per SSI (While critically ill target blood glucose of 140-180 mg/dL; avoid hypoglycemia) - continue to avoid benzodiazepine's, reduce the possibility of delirium - completed AB's course - prn analgesia per pain score - Maintenance of sleep-wake cycle, avoid delirium - continue enteral nutritional support at goal rate as tolerated - G.I. & VTE prophylaxis - PT/OT/ROM exercises - continue mobility protocols for pressure ulcer prophylaxis - Monitor hemodynamics closely - continue other care per attending / other consultants - discharge planning ongoing concurrently COVID SPECIFIC INTERVENTIONS: - COVID-19 test negative .... Re-evaluate in am & prn I have spent ( >35 ) minutes with the patient w/ >50% of the time spent counseling and/or coordinating care for this patient. Counseling topics and/or how time was spent coordinating patient's care is outlined in the impression and plan above. Subjective Date of service: 12/03/21 Principal diagnosis: AE-COPD; AHRF; CHF (? new onset); CAP; CAD; Obesity; HTNsive Emergency Interval history: Patient is seen today for: AE-COPD; Acute hypoxemic respiratory failure; CHF (? new onset); CAP; CAD; Obesity; HTNsive Emergency Seen and examined at bedside; 24hour events reviewed; nursing and respiratory care staff consulted; no adverse overnight events reported to me; resting peacefully in bed; weaned to 4L NC and tolerating well; no N/V/F/C Objective Vital Signs - 12hr 12/03/21 12/03/21 12/03/21 01:45 02:00 02:15 Temperature Pulse Rate 75 75 71 Pulse Rate [ Anterior Bilateral Throughout] Pulse Rate [ From Monitor] Respiratory 30 H 28 H 24 Rate Respiratory Rate [Anterior Bilateral Throughout] Blood Pressure 150/57 155/65 155/65 O2 Sat by Pulse 98 99 99 Oximetry 12/03/21 12/03/21 12/03/21 02:31 02:45 03:00 Temperature Pulse Rate 80 68 67 Pulse Rate [ Anterior Bilateral Throughout] Pulse Rate [ From Monitor] Respiratory 25 H 27 H 27 H Rate Respiratory Rate [Anterior Bilateral Throughout] Blood Pressure 155/65 155/65 127/58 O2 Sat by Pulse 98 99 100 Oximetry 12/03/21 12/03/21 12/03/21 03:15 03:31 03:45 Temperature Pulse Rate 66 74 72 Pulse Rate [ Anterior Bilateral Throughout] Pulse Rate [ From Monitor] Respiratory 25 H 21 21 Rate Respiratory Rate [Anterior Bilateral Throughout] Blood Pressure 127/58 127/58 127/58 O2 Sat by Pulse 99 99 99 Oximetry 12/03/21 12/03/21 12/03/21 03:59 04:00 04:15 Temperature 99.7 F H Pulse Rate 69 71 Pulse Rate [ Anterior Bilateral Throughout] Pulse Rate [ From Monitor] Respiratory 28 H 25 H Rate Respiratory Rate [Anterior Bilateral Throughout] Blood Pressure 139/61 139/61 O2 Sat by Pulse 99 99 Oximetry 12/03/21 12/03/21 12/03/21 04:31 04:45 05:01 Temperature Pulse Rate 65 67 65 Pulse Rate [ Anterior Bilateral Throughout] Pulse Rate [ From Monitor] Respiratory 23 25 H 26 H Rate Respiratory Rate [Anterior Bilateral Throughout] Blood Pressure 139/61 139/61 148/60 O2 Sat by Pulse 100 99 100 Oximetry 12/03/21 12/03/21 12/03/21 05:15 05:31 05:45 Temperature Pulse Rate 62 64 64 Pulse Rate [ Anterior Bilateral Throughout] Pulse Rate [ From Monitor] Respiratory 24 26 H 25 H Rate Respiratory Rate [Anterior Bilateral Throughout] Blood Pressure 148/60 148/60 148/60 O2 Sat by Pulse 100 100 100 Oximetry 12/03/21 12/03/21 12/03/21 06:01 06:15 06:31 Temperature Pulse Rate 62 64 68 Pulse Rate [ Anterior Bilateral Throughout] Pulse Rate [ From Monitor] Respiratory 23 25 H 18 Rate Respiratory Rate [Anterior Bilateral Throughout] Blood Pressure 159/68 159/68 159/68 O2 Sat by Pulse 99 100 99 Oximetry 12/03/21 12/03/21 12/03/21 06:45 07:00 07:15 Temperature Pulse Rate 66 64 69 Pulse Rate [ Anterior Bilateral Throughout] Pulse Rate [ From Monitor] Respiratory 26 H 25 H 26 H Rate Respiratory Rate [Anterior Bilateral Throughout] Blood Pressure 159/68 182/71 131/74 O2 Sat by Pulse 100 100 100 Oximetry 12/03/21 12/03/21 12/03/21 07:31 07:45 07:51 Temperature 98.5 F Pulse Rate 69 69 Pulse Rate [ Anterior Bilateral Throughout] Pulse Rate [ From Monitor] Respiratory 25 H 28 H Rate Respiratory Rate [Anterior Bilateral Throughout] Blood Pressure 131/74 131/74 O2 Sat by Pulse 100 99 Oximetry 12/03/21 12/03/21 12/03/21 08:00 08:15 08:31 Temperature Pulse Rate 65 72 66 Pulse Rate [ Anterior Bilateral Throughout] Pulse Rate [ From Monitor] Respiratory 27 H 32 H 28 H Rate Respiratory Rate [Anterior Bilateral Throughout] Blood Pressure 169/82 169/82 169/82 O2 Sat by Pulse 100 100 100 Oximetry 12/03/21 12/03/21 12/03/21 08:45 09:00 09:07 Temperature Pulse Rate 70 68 Pulse Rate [ Anterior Bilateral Throughout] Pulse Rate [ From Monitor] Respiratory 26 H 30 H Rate Respiratory Rate [Anterior Bilateral Throughout] Blood Pressure 169/82 168/88 O2 Sat by Pulse 100 100 99 Oximetry 12/03/21 12/03/21 12/03/21 09:15 09:22 09:31 Temperature Pulse Rate 67 66 Pulse Rate [ Anterior Bilateral Throughout] Pulse Rate [ 67 From Monitor] Respiratory 29 H 24 29 H Rate Respiratory Rate [Anterior Bilateral Throughout] Blood Pressure 168/88 168/88 O2 Sat by Pulse 100 94 100 Oximetry 12/03/21 12/03/21 12/03/21 09:35 09:45 09:50 Temperature Pulse Rate 70 68 Pulse Rate [ 69 Anterior Bilateral Throughout] Pulse Rate [ From Monitor] Respiratory 25 H Rate Respiratory 24 Rate [Anterior Bilateral Throughout] Blood Pressure 168/88 168/88 O2 Sat by Pulse 99 Oximetry 12/03/21 12/03/21 12/03/21 10:01 10:31 11:01 Temperature Pulse Rate 71 69 74 Pulse Rate [ Anterior Bilateral Throughout] Pulse Rate [ From Monitor] Respiratory 29 H 28 H 16 Rate Respiratory Rate [Anterior Bilateral Throughout] Blood Pressure 168/88 179/83 173/83 O2 Sat by Pulse 98 99 95 Oximetry 12/03/21 12/03/21 12/03/21 11:15 11:31 11:45 Temperature Pulse Rate 73 71 73 Pulse Rate [ Anterior Bilateral Throughout] Pulse Rate [ From Monitor] Respiratory 17 25 H 17 Rate Respiratory Rate [Anterior Bilateral Throughout] Blood Pressure 173/83 173/83 173/83 O2 Sat by Pulse 96 97 98 Oximetry 12/03/21 12/03/21 12/03/21 11:53 12:00 12:01 Temperature 98.7 F Pulse Rate 73 74 Pulse Rate [ Anterior Bilateral Throughout] Pulse Rate [ From Monitor] Respiratory 20 Rate Respiratory Rate [Anterior Bilateral Throughout] Blood Pressure 180/75 O2 Sat by Pulse 95 Oximetry 12/03/21 12/03/21 12/03/21 12:15 12:31 12:45 Temperature Pulse Rate 73 70 73 Pulse Rate [ Anterior Bilateral Throughout] Pulse Rate [ From Monitor] Respiratory 22 29 H 21 Rate Respiratory Rate [Anterior Bilateral Throughout] Blood Pressure 180/75 180/75 180/75 O2 Sat by Pulse 87 90 Oximetry 12/03/21 12/03/21 13:01 13:26 Temperature Pulse Rate 73 Pulse Rate [ 74 Anterior Bilateral Throughout] Pulse Rate [ From Monitor] Respiratory 22 Rate Respiratory 16 Rate [Anterior Bilateral Throughout] Blood Pressure 180/75 O2 Sat by Pulse Oximetry Constitutional: no acute distress, other (elderly obese female with mildly increased respiratory effort at rest ) Eyes: non-icteric ENT: oropharynx moist Neck: supple, no lymphadenopathy, no JVD, other (large circumference) Effort: mildly labored Ascultation: Bilateral: diminished breath sounds, rhonchi Percussion: Bilateral: not dull Cardiovascular: regular rate and rhythm Gastrointestinal: normoactive bowel sounds, soft, non-tender, non-distended (protuberant) Integumentary: normal Extremities: no cyanosis, no edema, pulses normal, no ischemia or petechiae Neurologic: non-focal exam (grossly), pupils equal and round, CN II-XII normal Psychiatric: mood appropriate, affect normal, other (mild delirium) CBC and BMP: 12/03/21 04:52 12/03/21 04:52 ABG, PT/INR, D-dimer: ABG ABG pH 7.380 pH Units (7.350-7.450) 12/01/21 11:42 POC ABG pCO2 60.0 mmHg (32.0-48.0) H 11/30/21 12:04 ABG pCO2 55.8 mm Hg 12/01/21 11:42 POC ABG pO2 68.3 mmHg (83-108) L 11/30/21 12:04 ABG pO2 71.0 mm Hg (80.0-90.0) L 12/01/21 11:42 POC ABG HCO3 32.9 11/30/21 12:04 ABG O2 Saturation 94.5 % (95.0-99.0) L 12/01/21 11:42 PT/INR, D-dimer PT 12.9 Sec. (12.2-14.9) 11/18/21 00:19 INR 0.88 (0.87-1.13) 11/18/21 00:19 D-Dimer 464.80 ng/mlDDU (0-234) H 11/18/21 05:15 Abnormal lab findings: Abnormal Labs 11/18/21 11/18/21 11/18/21 00:01 00:19 00:19 WBC 15.6 H RBC 5.59 H Hgb 14.8 H Hct 49.8 H MCH 27 L MCHC RDW 16.9 H Plt Count Lymph % (Auto) Winn % (Auto) Lymph # (Auto) Winn # (Auto) Seg Neutrophils % Lymphocytes % (Manual) 4.0 L Seg Neutrophils # Seg Neutrophils # Man 14.7 H Lymphocytes # (Manual) 0.6 L D-Dimer ABG pH POC ABG pCO2 POC ABG pO2 ABG pO2 ABG HCO3 ABG O2 Saturation ABG Base Excess ABG Hemoglobin ABG Oxyhemoglobin ABG Sodium ABG Glucose Oxyhemoglobin Carboxyhemoglobin Sodium Potassium Carbon Dioxide BUN Creatinine Glucose 148 H POC Glucose 151 H Calcium Phosphorus Magnesium Lactate Dehydrogenase Triglycerides Arterial Blood Glucose Arterial Blood Ionized Calcium Urine WBC (Auto) Salicylates Acetaminophen 11/18/21 11/18/21 11/18/21 00:19 00:19 00:19 WBC RBC Hgb Hct MCH MCHC RDW Plt Count Lymph % (Auto) Winn % (Auto) Lymph # (Auto) Winn # (Auto) Seg Neutrophils % Lymphocytes % (Manual) Seg Neutrophils # Seg Neutrophils # Man Lymphocytes # (Manual) D-Dimer ABG pH POC ABG pCO2 POC ABG pO2 ABG pO2 ABG HCO3 ABG O2 Saturation ABG Base Excess ABG Hemoglobin ABG Oxyhemoglobin ABG Sodium ABG Glucose Oxyhemoglobin Carboxyhemoglobin Sodium Potassium Carbon Dioxide BUN Creatinine Glucose POC Glucose Calcium Phosphorus Magnesium 2.50 H Lactate Dehydrogenase Triglycerides Arterial Blood Glucose Arterial Blood Ionized Calcium Urine WBC (Auto) Salicylates < 0.3 L Acetaminophen 5.0 L 11/18/21 11/18/21 11/18/21 01:03 02:00 05:15 WBC RBC Hgb Hct MCH MCHC RDW Plt Count Lymph % (Auto) Winn % (Auto) Lymph # (Auto) Winn # (Auto) Seg Neutrophils % Lymphocytes % (Manual) Seg Neutrophils # Seg Neutrophils # Man Lymphocytes # (Manual) D-Dimer 464.80 H ABG pH POC ABG pCO2 POC ABG pO2 ABG pO2 ABG HCO3 35.8 H ABG O2 Saturation ABG Base Excess 7.8 H ABG Hemoglobin ABG Oxyhemoglobin ABG Sodium ABG Glucose Oxyhemoglobin 91.9 L Carboxyhemoglobin Sodium Potassium Carbon Dioxide BUN Creatinine Glucose POC Glucose Calcium Phosphorus Magnesium Lactate Dehydrogenase Triglycerides Arterial Blood Glucose Arterial Blood Ionized Calcium Urine WBC (Auto) 16.0 H Salicylates Acetaminophen 11/18/21 11/18/21 11/18/21 05:15 15:47 15:47 WBC 13.5 H RBC 5.60 H Hgb 14.9 H Hct 49.1 H MCH 27 L MCHC RDW 17.3 H Plt Count Lymph % (Auto) 7.9 L Winn % (Auto) 10.1 H Lymph # (Auto) 1.1 L Winn # (Auto) 1.4 H Seg Neutrophils % 81.7 H Lymphocytes % (Manual) Seg Neutrophils # 11.0 H Seg Neutrophils # Man Lymphocytes # (Manual) D-Dimer ABG pH POC ABG pCO2 POC ABG pO2 ABG pO2 ABG HCO3 ABG O2 Saturation ABG Base Excess ABG Hemoglobin ABG Oxyhemoglobin ABG Sodium ABG Glucose Oxyhemoglobin Carboxyhemoglobin Sodium Potassium Carbon Dioxide BUN Creatinine Glucose 138 H POC Glucose Calcium Phosphorus Magnesium Lactate Dehydrogenase 275 H Triglycerides Arterial Blood Glucose Arterial Blood Ionized Calcium Urine WBC (Auto) Salicylates Acetaminophen 11/18/21 11/18/21 11/19/21 18:45 23:33 04:58 WBC RBC Hgb Hct MCH MCHC RDW Plt Count Lymph % (Auto) Winn % (Auto) Lymph # (Auto) Winn # (Auto) Seg Neutrophils % Lymphocytes % (Manual) Seg Neutrophils # Seg Neutrophils # Man Lymphocytes # (Manual) D-Dimer ABG pH POC ABG pCO2 POC ABG pO2 ABG pO2 ABG HCO3 ABG O2 Saturation ABG Base Excess ABG Hemoglobin ABG Oxyhemoglobin ABG Sodium ABG Glucose Oxyhemoglobin Carboxyhemoglobin Sodium Potassium Carbon Dioxide BUN Creatinine Glucose 130 H POC Glucose 132 H 113 H Calcium Phosphorus Magnesium Lactate Dehydrogenase Triglycerides Arterial Blood Glucose Arterial Blood Ionized Calcium Urine WBC (Auto) Salicylates Acetaminophen 11/19/21 11/19/21 11/19/21 07:59 07:59 08:55 WBC 12.7 H RBC 5.29 H Hgb Hct 45.5 H MCH 26 L MCHC RDW 17.4 H Plt Count Lymph % (Auto) 12.3 L Winn % (Auto) 9.6 H Lymph # (Auto) Winn # (Auto) 1.2 H Seg Neutrophils % 76.9 H Lymphocytes % (Manual) Seg Neutrophils # 9.7 H Seg Neutrophils # Man Lymphocytes # (Manual) D-Dimer ABG pH 7.518 H POC ABG pCO2 POC ABG pO2 ABG pO2 77.6 L ABG HCO3 30.1 H ABG O2 Saturation ABG Base Excess 6.9 H ABG Hemoglobin ABG Oxyhemoglobin ABG Sodium ABG Glucose Oxyhemoglobin Carboxyhemoglobin Sodium Potassium 3.1 L D Carbon Dioxide BUN Creatinine Glucose 115 H POC Glucose Calcium 8.1 L Phosphorus Magnesium Lactate Dehydrogenase Triglycerides Arterial Blood Glucose Arterial Blood Ionized Calcium Urine WBC (Auto) Salicylates Acetaminophen 11/19/21 11/19/21 11/20/21 11:33 16:22 04:20 WBC 13.9 H RBC 5.44 H Hgb Hct 49.3 H MCH 26 L MCHC 29 L RDW 18.3 H Plt Count Lymph % (Auto) Winn % (Auto) Lymph # (Auto) Winn # (Auto) Seg Neutrophils % Lymphocytes % (Manual) Seg Neutrophils # Seg Neutrophils # Man Lymphocytes # (Manual) D-Dimer ABG pH POC ABG pCO2 POC ABG pO2 ABG pO2 ABG HCO3 ABG O2 Saturation ABG Base Excess ABG Hemoglobin ABG Oxyhemoglobin ABG Sodium ABG Glucose Oxyhemoglobin Carboxyhemoglobin Sodium Potassium Carbon Dioxide BUN Creatinine Glucose POC Glucose 119 H 112 H Calcium Phosphorus Magnesium Lactate Dehydrogenase Triglycerides Arterial Blood Glucose Arterial Blood Ionized Calcium Urine WBC (Auto) Salicylates Acetaminophen 11/20/21 11/20/21 11/20/21 04:20 11:07 12:02 WBC RBC Hgb Hct MCH MCHC RDW Plt Count Lymph % (Auto) Winn % (Auto) Lymph # (Auto) Winn # (Auto) Seg Neutrophils % Lymphocytes % (Manual) Seg Neutrophils # Seg Neutrophils # Man Lymphocytes # (Manual) D-Dimer ABG pH 7.251 L POC ABG pCO2 POC ABG pO2 ABG pO2 66.3 L ABG HCO3 30.2 H ABG O2 Saturation 91.8 L ABG Base Excess ABG Hemoglobin ABG Oxyhemoglobin ABG Sodium ABG Glucose Oxyhemoglobin 89.4 L Carboxyhemoglobin Sodium 147 H Potassium Carbon Dioxide BUN 25 H Creatinine Glucose POC Glucose 118 H Calcium Phosphorus 6.40 H Magnesium Lactate Dehydrogenase Triglycerides Arterial Blood Glucose Arterial Blood Ionized Calcium Urine WBC (Auto) Salicylates Acetaminophen 11/20/21 11/21/21 11/21/21 17:31 00:07 04:44 WBC 14.0 H RBC 5.08 H Hgb Hct 44.7 H MCH 26 L MCHC 29 L RDW 17.8 H Plt Count Lymph % (Auto) Winn % (Auto) Lymph # (Auto) Winn # (Auto) Seg Neutrophils % Lymphocytes % (Manual) Seg Neutrophils # Seg Neutrophils # Man Lymphocytes # (Manual) D-Dimer ABG pH POC ABG pCO2 POC ABG pO2 ABG pO2 ABG HCO3 ABG O2 Saturation ABG Base Excess ABG Hemoglobin ABG Oxyhemoglobin ABG Sodium ABG Glucose Oxyhemoglobin Carboxyhemoglobin Sodium Potassium Carbon Dioxide BUN Creatinine Glucose POC Glucose 139 H 147 H Calcium Phosphorus Magnesium Lactate Dehydrogenase Triglycerides Arterial Blood Glucose Arterial Blood Ionized Calcium Urine WBC (Auto) Salicylates Acetaminophen 11/21/21 11/21/21 11/21/21 04:44 06:06 11:45 WBC RBC Hgb Hct MCH MCHC RDW Plt Count Lymph % (Auto) Winn % (Auto) Lymph # (Auto) Winn # (Auto) Seg Neutrophils % Lymphocytes % (Manual) Seg Neutrophils # Seg Neutrophils # Man Lymphocytes # (Manual) D-Dimer ABG pH POC ABG pCO2 POC ABG pO2 ABG pO2 ABG HCO3 ABG O2 Saturation ABG Base Excess ABG Hemoglobin ABG Oxyhemoglobin ABG Sodium ABG Glucose Oxyhemoglobin Carboxyhemoglobin Sodium Potassium Carbon Dioxide BUN 20 H Creatinine Glucose 157 H POC Glucose 158 H 119 H Calcium Phosphorus Magnesium Lactate Dehydrogenase Triglycerides Arterial Blood Glucose Arterial Blood Ionized Calcium Urine WBC (Auto) Salicylates Acetaminophen 11/21/21 11/21/21 11/22/21 11:50 16:54 00:03 WBC RBC Hgb Hct MCH MCHC RDW Plt Count Lymph % (Auto) Winn % (Auto) Lymph # (Auto) Winn # (Auto) Seg Neutrophils % Lymphocytes % (Manual) Seg Neutrophils # Seg Neutrophils # Man Lymphocytes # (Manual) D-Dimer ABG pH POC ABG pCO2 POC ABG pO2 ABG pO2 61.8 L ABG HCO3 35.2 H ABG O2 Saturation 92.8 L ABG Base Excess 8.1 H ABG Hemoglobin ABG Oxyhemoglobin ABG Sodium ABG Glucose Oxyhemoglobin 90.6 L Carboxyhemoglobin Sodium Potassium Carbon Dioxide BUN Creatinine Glucose POC Glucose 149 H 133 H Calcium Phosphorus Magnesium Lactate Dehydrogenase Triglycerides Arterial Blood Glucose Arterial Blood Ionized Calcium Urine WBC (Auto) Salicylates Acetaminophen 11/22/21 11/22/21 11/22/21 04:39 04:39 04:39 WBC 14.1 H RBC Hgb Hct 43.4 H MCH 26 L MCHC RDW 17.9 H Plt Count Lymph % (Auto) Winn % (Auto) Lymph # (Auto) Winn # (Auto) Seg Neutrophils % Lymphocytes % (Manual) Seg Neutrophils # Seg Neutrophils # Man Lymphocytes # (Manual) D-Dimer ABG pH POC ABG pCO2 POC ABG pO2 ABG pO2 ABG HCO3 ABG O2 Saturation ABG Base Excess ABG Hemoglobin ABG Oxyhemoglobin ABG Sodium ABG Glucose Oxyhemoglobin Carboxyhemoglobin Sodium Potassium Carbon Dioxide 33 H BUN Creatinine Glucose 152 H POC Glucose Calcium Phosphorus Magnesium Lactate Dehydrogenase Triglycerides 185 H Arterial Blood Glucose Arterial Blood Ionized Calcium Urine WBC (Auto) Salicylates Acetaminophen 11/22/21 11/22/21 11/22/21 05:02 10:56 11:31 WBC RBC Hgb Hct MCH MCHC RDW Plt Count Lymph % (Auto) Winn % (Auto) Lymph # (Auto) Winn # (Auto) Seg Neutrophils % Lymphocytes % (Manual) Seg Neutrophils # Seg Neutrophils # Man Lymphocytes # (Manual) D-Dimer ABG pH POC ABG pCO2 POC ABG pO2 ABG pO2 55.3 L ABG HCO3 39.4 H ABG O2 Saturation 89.5 L ABG Base Excess 11.7 H ABG Hemoglobin ABG Oxyhemoglobin ABG Sodium ABG Glucose Oxyhemoglobin 87.2 L Carboxyhemoglobin Sodium Potassium Carbon Dioxide BUN Creatinine Glucose POC Glucose 158 H 116 H Calcium Phosphorus Magnesium Lactate Dehydrogenase Triglycerides Arterial Blood Glucose Arterial Blood Ionized Calcium Urine WBC (Auto) Salicylates Acetaminophen 11/22/21 11/22/21 11/23/21 17:29 23:22 04:49 WBC 13.6 H RBC 5.18 H Hgb Hct 45.6 H MCH 25 L MCHC 29 L RDW 17.5 H Plt Count Lymph % (Auto) Winn % (Auto) Lymph # (Auto) Winn # (Auto) Seg Neutrophils % Lymphocytes % (Manual) Seg Neutrophils # Seg Neutrophils # Man Lymphocytes # (Manual) D-Dimer ABG pH POC ABG pCO2 POC ABG pO2 ABG pO2 ABG HCO3 ABG O2 Saturation ABG Base Excess ABG Hemoglobin ABG Oxyhemoglobin ABG Sodium ABG Glucose Oxyhemoglobin Carboxyhemoglobin Sodium Potassium Carbon Dioxide BUN Creatinine Glucose POC Glucose 129 H 171 H Calcium Phosphorus Magnesium Lactate Dehydrogenase Triglycerides Arterial Blood Glucose Arterial Blood Ionized Calcium Urine WBC (Auto) Salicylates Acetaminophen 11/23/21 11/23/21 11/23/21 04:49 11:53 16:22 WBC RBC Hgb Hct MCH MCHC RDW Plt Count Lymph % (Auto) Winn % (Auto) Lymph # (Auto) Winn # (Auto) Seg Neutrophils % Lymphocytes % (Manual) Seg Neutrophils # Seg Neutrophils # Man Lymphocytes # (Manual) D-Dimer ABG pH POC ABG pCO2 POC ABG pO2 ABG pO2 61.8 L ABG HCO3 40.9 H ABG O2 Saturation 93.4 L ABG Base Excess 14.6 H ABG Hemoglobin 6.9 L ABG Oxyhemoglobin ABG Sodium ABG Glucose Oxyhemoglobin 90.2 L Carboxyhemoglobin Sodium 146 H Potassium Carbon Dioxide 36 H BUN 21 H Creatinine Glucose 155 H POC Glucose 166 H Calcium Phosphorus Magnesium Lactate Dehydrogenase Triglycerides Arterial Blood Glucose Arterial Blood Ionized Calcium Urine WBC (Auto) Salicylates Acetaminophen 11/23/21 11/23/21 11/24/21 17:11 23:07 05:03 WBC RBC Hgb Hct MCH MCHC RDW Plt Count Lymph % (Auto) Winn % (Auto) Lymph # (Auto) Winn # (Auto) Seg Neutrophils % Lymphocytes % (Manual) Seg Neutrophils # Seg Neutrophils # Man Lymphocytes # (Manual) D-Dimer ABG pH POC ABG pCO2 POC ABG pO2 ABG pO2 ABG HCO3 ABG O2 Saturation ABG Base Excess ABG Hemoglobin ABG Oxyhemoglobin ABG Sodium ABG Glucose Oxyhemoglobin Carboxyhemoglobin Sodium Potassium Carbon Dioxide BUN Creatinine Glucose POC Glucose 142 H 197 H 183 H Calcium Phosphorus Magnesium Lactate Dehydrogenase Triglycerides Arterial Blood Glucose Arterial Blood Ionized Calcium Urine WBC (Auto) Salicylates Acetaminophen 11/24/21 11/24/21 11/24/21 08:33 08:33 09:00 WBC RBC Hgb Hct 43.6 H MCH 26 L MCHC RDW 18.0 H Plt Count Lymph % (Auto) Winn % (Auto) Lymph # (Auto) Winn # (Auto) Seg Neutrophils % Lymphocytes % (Manual) Seg Neutrophils # Seg Neutrophils # Man Lymphocytes # (Manual) D-Dimer ABG pH POC ABG pCO2 POC ABG pO2 ABG pO2 69.1 L ABG HCO3 40.1 H ABG O2 Saturation 93.2 L ABG Base Excess 11.9 H ABG Hemoglobin ABG Oxyhemoglobin ABG Sodium ABG Glucose Oxyhemoglobin 90.3 L Carboxyhemoglobin Sodium Potassium 5.3 H D Carbon Dioxide 36 H BUN 25 H Creatinine 0.5 L Glucose 185 H POC Glucose Calcium Phosphorus Magnesium Lactate Dehydrogenase Triglycerides Arterial Blood Glucose Arterial Blood Ionized Calcium Urine WBC (Auto) Salicylates Acetaminophen 11/24/21 11/24/21 11/25/21 12:00 18:08 00:50 WBC RBC Hgb Hct MCH MCHC RDW Plt Count Lymph % (Auto) Winn % (Auto) Lymph # (Auto) Winn # (Auto) Seg Neutrophils % Lymphocytes % (Manual) Seg Neutrophils # Seg Neutrophils # Man Lymphocytes # (Manual) D-Dimer ABG pH POC ABG pCO2 POC ABG pO2 ABG pO2 67.3 L ABG HCO3 41.6 H 42.7 H ABG O2 Saturation 94.5 L ABG Base Excess 12.3 H 14.7 H ABG Hemoglobin ABG Oxyhemoglobin ABG Sodium ABG Glucose Oxyhemoglobin 93.1 L 91.6 L Carboxyhemoglobin Sodium Potassium Carbon Dioxide BUN Creatinine Glucose POC Glucose 168 H Calcium Phosphorus Magnesium Lactate Dehydrogenase Triglycerides Arterial Blood Glucose Arterial Blood Ionized Calcium Urine WBC (Auto) Salicylates Acetaminophen 11/25/21 11/25/21 11/25/21 04:57 04:57 14:18 WBC RBC 5.13 H Hgb Hct 45.1 H MCH 26 L MCHC RDW 17.7 H Plt Count Lymph % (Auto) Winn % (Auto) Lymph # (Auto) Winn # (Auto) Seg Neutrophils % Lymphocytes % (Manual) Seg Neutrophils # Seg Neutrophils # Man Lymphocytes # (Manual) D-Dimer ABG pH POC ABG pCO2 POC ABG pO2 ABG pO2 65.1 L ABG HCO3 41.7 H ABG O2 Saturation 94.2 L ABG Base Excess 13.4 H ABG Hemoglobin ABG Oxyhemoglobin ABG Sodium ABG Glucose Oxyhemoglobin 91.3 L Carboxyhemoglobin Sodium 146 H Potassium Carbon Dioxide 38 H BUN 26 H Creatinine 0.5 L Glucose 210 H POC Glucose Calcium Phosphorus Magnesium Lactate Dehydrogenase Triglycerides Arterial Blood Glucose Arterial Blood Ionized Calcium Urine WBC (Auto) Salicylates Acetaminophen 11/25/21 11/26/21 11/26/21 19:22 04:28 04:28 WBC RBC 5.05 H Hgb Hct 44.0 H MCH 26 L MCHC RDW 17.6 H Plt Count Lymph % (Auto) Winn % (Auto) Lymph # (Auto) Winn # (Auto) Seg Neutrophils % Lymphocytes % (Manual) Seg Neutrophils # Seg Neutrophils # Man Lymphocytes # (Manual) D-Dimer ABG pH POC ABG pCO2 POC ABG pO2 ABG pO2 ABG HCO3 ABG O2 Saturation ABG Base Excess ABG Hemoglobin ABG Oxyhemoglobin ABG Sodium ABG Glucose Oxyhemoglobin Carboxyhemoglobin Sodium 146 H Potassium Carbon Dioxide 38 H BUN 30 H Creatinine Glucose 124 H POC Glucose 151 H Calcium 10.5 H Phosphorus Magnesium Lactate Dehydrogenase Triglycerides Arterial Blood Glucose Arterial Blood Ionized Calcium Urine WBC (Auto) Salicylates Acetaminophen 11/26/21 11/26/21 11/27/21 05:50 10:28 08:31 WBC 12.4 H RBC 5.62 H Hgb 14.6 H Hct 48.7 H MCH 26 L MCHC RDW 17.9 H Plt Count 469 H Lymph % (Auto) Winn % (Auto) Lymph # (Auto) Winn # (Auto) Seg Neutrophils % Lymphocytes % (Manual) Seg Neutrophils # Seg Neutrophils # Man Lymphocytes # (Manual) D-Dimer ABG pH POC ABG pCO2 POC ABG pO2 ABG pO2 66.5 L ABG HCO3 39.6 H ABG O2 Saturation 92.9 L ABG Base Excess 11.4 H ABG Hemoglobin 16.8 H ABG Oxyhemoglobin ABG Sodium ABG Glucose Oxyhemoglobin 90.3 L Carboxyhemoglobin Sodium Potassium Carbon Dioxide BUN Creatinine Glucose POC Glucose 121 H Calcium Phosphorus Magnesium Lactate Dehydrogenase Triglycerides Arterial Blood Glucose Arterial Blood Ionized Calcium Urine WBC (Auto) Salicylates Acetaminophen 11/27/21 11/27/21 11/27/21 08:31 09:46 11:49 WBC RBC Hgb Hct MCH MCHC RDW Plt Count Lymph % (Auto) Winn % (Auto) Lymph # (Auto) Winn # (Auto) Seg Neutrophils % Lymphocytes % (Manual) Seg Neutrophils # Seg Neutrophils # Man Lymphocytes # (Manual) D-Dimer ABG pH POC ABG pCO2 POC ABG pO2 ABG pO2 ABG HCO3 ABG O2 Saturation ABG Base Excess ABG Hemoglobin ABG Oxyhemoglobin ABG Sodium ABG Glucose Oxyhemoglobin Carboxyhemoglobin Sodium 150 H Potassium Carbon Dioxide 33 H BUN 31 H Creatinine Glucose 135 H POC Glucose 140 H 153 H Calcium 11.0 H Phosphorus Magnesium Lactate Dehydrogenase Triglycerides Arterial Blood Glucose Arterial Blood Ionized Calcium Urine WBC (Auto) Salicylates Acetaminophen 11/27/21 11/27/21 11/27/21 14:16 17:14 23:25 WBC RBC Hgb Hct MCH MCHC RDW Plt Count Lymph % (Auto) Winn % (Auto) Lymph # (Auto) Winn # (Auto) Seg Neutrophils % Lymphocytes % (Manual) Seg Neutrophils # Seg Neutrophils # Man Lymphocytes # (Manual) D-Dimer ABG pH 7.485 H POC ABG pCO2 48.7 H POC ABG pO2 74.5 L ABG pO2 ABG HCO3 ABG O2 Saturation ABG Base Excess ABG Hemoglobin ABG Oxyhemoglobin ABG Sodium 145.5 H ABG Glucose 153 H Oxyhemoglobin Carboxyhemoglobin 1.6 H Sodium Potassium Carbon Dioxide BUN Creatinine Glucose POC Glucose 142 H 123 H Calcium Phosphorus Magnesium Lactate Dehydrogenase Triglycerides Arterial Blood Glucose 153 H Arterial Blood Ionized Calcium 5.4 H Urine WBC (Auto) Salicylates Acetaminophen 11/28/21 11/28/21 11/28/21 03:38 03:38 05:16 WBC RBC 5.05 H Hgb Hct 43.6 H MCH 26 L MCHC RDW 17.8 H Plt Count Lymph % (Auto) Winn % (Auto) Lymph # (Auto) Winn # (Auto) Seg Neutrophils % Lymphocytes % (Manual) Seg Neutrophils # Seg Neutrophils # Man Lymphocytes # (Manual) D-Dimer ABG pH POC ABG pCO2 POC ABG pO2 ABG pO2 ABG HCO3 ABG O2 Saturation ABG Base Excess ABG Hemoglobin ABG Oxyhemoglobin ABG Sodium ABG Glucose Oxyhemoglobin Carboxyhemoglobin Sodium 150 H Potassium Carbon Dioxide 32 H BUN 51 H Creatinine Glucose 143 H POC Glucose 138 H Calcium 10.5 H Phosphorus Magnesium Lactate Dehydrogenase Triglycerides Arterial Blood Glucose Arterial Blood Ionized Calcium Urine WBC (Auto) Salicylates Acetaminophen 11/28/21 11/28/21 11/29/21 17:01 23:51 03:51 WBC RBC Hgb Hct MCH MCHC RDW Plt Count Lymph % (Auto) Winn % (Auto) Lymph # (Auto) Winn # (Auto) Seg Neutrophils % Lymphocytes % (Manual) Seg Neutrophils # Seg Neutrophils # Man Lymphocytes # (Manual) D-Dimer ABG pH POC ABG pCO2 54.1 H POC ABG pO2 70.6 L ABG pO2 ABG HCO3 ABG O2 Saturation ABG Base Excess ABG Hemoglobin ABG Oxyhemoglobin 93.1 L ABG Sodium ABG Glucose 144 H Oxyhemoglobin Carboxyhemoglobin Sodium Potassium Carbon Dioxide BUN Creatinine Glucose POC Glucose 145 H 130 H Calcium Phosphorus Magnesium Lactate Dehydrogenase Triglycerides Arterial Blood Glucose 144 H Arterial Blood Ionized Calcium Urine WBC (Auto) Salicylates Acetaminophen 11/29/21 11/29/21 11/29/21 05:51 05:51 12:09 WBC 11.1 H RBC Hgb Hct MCH 26 L MCHC RDW 17.8 H Plt Count Lymph % (Auto) Winn % (Auto) Lymph # (Auto) Winn # (Auto) Seg Neutrophils % Lymphocytes % (Manual) Seg Neutrophils # Seg Neutrophils # Man Lymphocytes # (Manual) D-Dimer ABG pH POC ABG pCO2 POC ABG pO2 ABG pO2 ABG HCO3 ABG O2 Saturation ABG Base Excess ABG Hemoglobin ABG Oxyhemoglobin ABG Sodium ABG Glucose Oxyhemoglobin Carboxyhemoglobin Sodium Potassium Carbon Dioxide 31 H BUN 42 H Creatinine Glucose 133 H POC Glucose 157 H Calcium Phosphorus Magnesium Lactate Dehydrogenase Triglycerides Arterial Blood Glucose Arterial Blood Ionized Calcium Urine WBC (Auto) Salicylates Acetaminophen 11/29/21 11/30/21 11/30/21 17:27 00:23 04:42 WBC RBC 5.05 H Hgb Hct 43.6 H MCH 26 L MCHC RDW 17.5 H Plt Count Lymph % (Auto) Winn % (Auto) Lymph # (Auto) Winn # (Auto) Seg Neutrophils % Lymphocytes % (Manual) Seg Neutrophils # Seg Neutrophils # Man Lymphocytes # (Manual) D-Dimer ABG pH POC ABG pCO2 POC ABG pO2 ABG pO2 ABG HCO3 ABG O2 Saturation ABG Base Excess ABG Hemoglobin ABG Oxyhemoglobin ABG Sodium ABG Glucose Oxyhemoglobin Carboxyhemoglobin Sodium Potassium Carbon Dioxide BUN Creatinine Glucose POC Glucose 164 H 192 H Calcium Phosphorus Magnesium Lactate Dehydrogenase Triglycerides Arterial Blood Glucose Arterial Blood Ionized Calcium Urine WBC (Auto) Salicylates Acetaminophen 11/30/21 11/30/21 11/30/21 04:42 11:27 12:04 WBC RBC Hgb Hct MCH MCHC RDW Plt Count Lymph % (Auto) Winn % (Auto) Lymph # (Auto) Winn # (Auto) Seg Neutrophils % Lymphocytes % (Manual) Seg Neutrophils # Seg Neutrophils # Man Lymphocytes # (Manual) D-Dimer ABG pH POC ABG pCO2 60.0 H POC ABG pO2 68.3 L ABG pO2 ABG HCO3 ABG O2 Saturation ABG Base Excess ABG Hemoglobin ABG Oxyhemoglobin 90.9 L ABG Sodium 145.1 H ABG Glucose 122 H Oxyhemoglobin Carboxyhemoglobin Sodium Potassium Carbon Dioxide BUN 32 H Creatinine 0.5 L Glucose 178 H POC Glucose 156 H Calcium Phosphorus Magnesium Lactate Dehydrogenase Triglycerides Arterial Blood Glucose 122 H Arterial Blood Ionized Calcium Urine WBC (Auto) Salicylates Acetaminophen 11/30/21 11/30/21 12/01/21 17:35 23:51 04:00 WBC 13.8 H RBC Hgb Hct MCH 26 L MCHC RDW 17.6 H Plt Count 455 H Lymph % (Auto) Winn % (Auto) Lymph # (Auto) Winn # (Auto) Seg Neutrophils % Lymphocytes % (Manual) Seg Neutrophils # Seg Neutrophils # Man Lymphocytes # (Manual) D-Dimer ABG pH POC ABG pCO2 POC ABG pO2 ABG pO2 ABG HCO3 ABG O2 Saturation ABG Base Excess ABG Hemoglobin ABG Oxyhemoglobin ABG Sodium ABG Glucose Oxyhemoglobin Carboxyhemoglobin Sodium Potassium Carbon Dioxide BUN Creatinine Glucose POC Glucose 124 H 158 H Calcium Phosphorus Magnesium Lactate Dehydrogenase Triglycerides Arterial Blood Glucose Arterial Blood Ionized Calcium Urine WBC (Auto) Salicylates Acetaminophen 12/01/21 12/01/21 12/01/21 04:00 06:03 11:13 WBC RBC Hgb Hct MCH MCHC RDW Plt Count Lymph % (Auto) Winn % (Auto) Lymph # (Auto) Winn # (Auto) Seg Neutrophils % Lymphocytes % (Manual) Seg Neutrophils # Seg Neutrophils # Man Lymphocytes # (Manual) D-Dimer ABG pH POC ABG pCO2 POC ABG pO2 ABG pO2 ABG HCO3 ABG O2 Saturation ABG Base Excess ABG Hemoglobin ABG Oxyhemoglobin ABG Sodium ABG Glucose Oxyhemoglobin Carboxyhemoglobin Sodium Potassium Carbon Dioxide BUN 36 H Creatinine 0.5 L Glucose 188 H POC Glucose 178 H 121 H Calcium Phosphorus Magnesium Lactate Dehydrogenase Triglycerides Arterial Blood Glucose Arterial Blood Ionized Calcium Urine WBC (Auto) Salicylates Acetaminophen 12/01/21 12/01/21 12/01/21 11:42 16:54 23:43 WBC RBC Hgb Hct MCH MCHC RDW Plt Count Lymph % (Auto) Winn % (Auto) Lymph # (Auto) Winn # (Auto) Seg Neutrophils % Lymphocytes % (Manual) Seg Neutrophils # Seg Neutrophils # Man Lymphocytes # (Manual) D-Dimer ABG pH POC ABG pCO2 POC ABG pO2 ABG pO2 71.0 L ABG HCO3 32.3 H ABG O2 Saturation 94.5 L ABG Base Excess 5.7 H ABG Hemoglobin ABG Oxyhemoglobin ABG Sodium ABG Glucose Oxyhemoglobin 92.6 L Carboxyhemoglobin Sodium Potassium Carbon Dioxide BUN Creatinine Glucose POC Glucose 129 H 115 H Calcium Phosphorus Magnesium Lactate Dehydrogenase Triglycerides Arterial Blood Glucose Arterial Blood Ionized Calcium Urine WBC (Auto) Salicylates Acetaminophen 12/02/21 12/02/21 12/02/21 04:55 04:55 05:19 WBC RBC Hgb Hct MCH 26 L MCHC RDW 18.1 H Plt Count 476 H Lymph % (Auto) Winn % (Auto) Lymph # (Auto) Winn # (Auto) Seg Neutrophils % Lymphocytes % (Manual) Seg Neutrophils # Seg Neutrophils # Man Lymphocytes # (Manual) D-Dimer ABG pH POC ABG pCO2 POC ABG pO2 ABG pO2 ABG HCO3 ABG O2 Saturation ABG Base Excess ABG Hemoglobin ABG Oxyhemoglobin ABG Sodium ABG Glucose Oxyhemoglobin Carboxyhemoglobin Sodium Potassium Carbon Dioxide 33 H BUN 30 H Creatinine 0.5 L Glucose 140 H POC Glucose 127 H Calcium Phosphorus Magnesium Lactate Dehydrogenase Triglycerides Arterial Blood Glucose Arterial Blood Ionized Calcium Urine WBC (Auto) Salicylates Acetaminophen 12/02/21 12/02/21 12/02/21 11:33 17:19 23:49 WBC RBC Hgb Hct MCH MCHC RDW Plt Count Lymph % (Auto) Winn % (Auto) Lymph # (Auto) Winn # (Auto) Seg Neutrophils % Lymphocytes % (Manual) Seg Neutrophils # Seg Neutrophils # Man Lymphocytes # (Manual) D-Dimer ABG pH POC ABG pCO2 POC ABG pO2 ABG pO2 ABG HCO3 ABG O2 Saturation ABG Base Excess ABG Hemoglobin ABG Oxyhemoglobin ABG Sodium ABG Glucose Oxyhemoglobin Carboxyhemoglobin Sodium Potassium Carbon Dioxide BUN Creatinine Glucose POC Glucose 118 H 139 H 140 H Calcium Phosphorus Magnesium Lactate Dehydrogenase Triglycerides Arterial Blood Glucose Arterial Blood Ionized Calcium Urine WBC (Auto) Salicylates Acetaminophen 12/03/21 12/03/21 12/03/21 04:52 04:52 05:03 WBC RBC 5.15 H Hgb Hct 44.2 H MCH 27 L MCHC RDW 17.8 H Plt Count 566 H Lymph % (Auto) Winn % (Auto) Lymph # (Auto) Winn # (Auto) Seg Neutrophils % Lymphocytes % (Manual) Seg Neutrophils # Seg Neutrophils # Man Lymphocytes # (Manual) D-Dimer ABG pH POC ABG pCO2 POC ABG pO2 ABG pO2 ABG HCO3 ABG O2 Saturation ABG Base Excess ABG Hemoglobin ABG Oxyhemoglobin ABG Sodium ABG Glucose Oxyhemoglobin Carboxyhemoglobin Sodium Potassium Carbon Dioxide BUN 22 H Creatinine 0.4 L Glucose 142 H POC Glucose 142 H Calcium Phosphorus Magnesium Lactate Dehydrogenase Triglycerides Arterial Blood Glucose Arterial Blood Ionized Calcium Urine WBC (Auto) Salicylates Acetaminophen 12/03/21 11:16 WBC RBC Hgb Hct MCH MCHC RDW Plt Count Lymph % (Auto) Winn % (Auto) Lymph # (Auto) Winn # (Auto) Seg Neutrophils % Lymphocytes % (Manual) Seg Neutrophils # Seg Neutrophils # Man Lymphocytes # (Manual) D-Dimer ABG pH POC ABG pCO2 POC ABG pO2 ABG pO2 ABG HCO3 ABG O2 Saturation ABG Base Excess ABG Hemoglobin ABG Oxyhemoglobin ABG Sodium ABG Glucose Oxyhemoglobin Carboxyhemoglobin Sodium Potassium Carbon Dioxide BUN Creatinine Glucose POC Glucose 147 H Calcium Phosphorus Magnesium Lactate Dehydrogenase Triglycerides Arterial Blood Glucose Arterial Blood Ionized Calcium Urine WBC (Auto) Salicylates Acetaminophen Allied health notes reviewed: nursing
[2021-12-03] MEDS: hydrALAZINE 20 MG/1 ML INJ IV PRN (22:30)
[2021-12-03] MEDS: ENOXAPARIN 40 MG/0.4 ML INJ SUB-Q SCH (22:31)
[2021-12-04 05:16] LABS: Mean Corpuscular HGB Conc 30 % (30-34); Mean Corpuscular Volume 86 fl (79-97); Red Blood Count 5.58 M/mm3 (3.65-5.03); Red Cell Distribution Width 18.4 % (13.2-15.2)
[2021-12-04 05:27] LABS: Hematocrit 47.8 % (30.3-42.9); Hemoglobin 14.3 gm/dl (10.1-14.3); Platelet Count 576 K/mm3 (140-440)
[2021-12-04 05:32] LABS: Blood Urea Nitrogen 19 mg/dL (7-17); Calcium 9.9 mg/dL (8.4-10.2); Hemolysis Index 5
[2021-12-04 05:37] LABS: BUN/Creatinine Ratio 38
[2021-12-04] MEDS: ARFORMOTEROL 15 MCG/2 ML NEBU IH SCH (09:28)
[2021-12-04] MEDS: BUDESONIDE 0.5 MG/2 ML NEBU IH SCH (09:28)
[2021-12-04] MEDS: SENNOSIDES/DOCUSATE SODIUM 8.6/50 MG TAB FEEDTUBE SCH ×2 (10:44→22:08)
[2021-12-04] MEDS: GABAPENTIN 400 MG CAP PO SCH ×2 (10:44→22:08)
[2021-12-04] MEDS: amLODIPine 10 MG TAB PO SCH (10:45)
[2021-12-04] MEDS: ASPIRIN EC 81 MG TAB PO SCH (10:45)
[2021-12-04] MEDS: carvediloL 12.5 MG TAB FEEDTUBE SCH ×2 (10:45→22:20)
[2021-12-04] MEDS: FAMOTIDINE 20 MG TAB FEEDTUBE SCH ×2 (10:45→22:08)
--- NOTE | 2021-12-04 11:43 | Progress Note ---
Assessment and Plan Acute exacerbation of chronic obstructive lung disease Acute hypoxemic respiratory failure Acute congestive heart failure exacerbation (? Flash Pulmonary edema) Community-acquired pneumonia Leukocytosis History of coronary artery disease Gastroesophageal reflux disease Arthritis Hyperlipidemia Obesity Elevated D-dimers Acute toxic metabolic encephalopathy Urinary tract infection Likely pulmonary hypertension Hypertensive emergency - swallow evaluation and advance diet as tolerated - continue BIPAP scheduled qhs - resume Flomax once she passed swallow evaluation - continue care as below otherwise; - s/p systemic steroids for tentative laryngeal edema (cuff leak better) - complete mucomyst nebs course - continue to wean supplemental oxygen for target O2 sat's > 90% acutely - aspiration precautions - bronchodilators (LIZZY & LABA) with pulmonary hygiene per RT - continue Pulmicort re: COPD - avoid nephrotoxins, renally dose all medications - continue accuchecks with glycemic control per SSI for target blood glucose of < 180 mg/dL; avoid hypoglycemia - continue to avoid benzodiazepine's, reduce the possibility of delirium - completed AB's course - prn analgesia per pain score - Maintenance of sleep-wake cycle, avoid delirium - continue enteral nutritional support at goal rate as tolerated - G.I. & VTE prophylaxis - PT/OT/ROM exercises - continue mobility protocols for pressure ulcer prophylaxis - Monitor hemodynamics closely - continue other care per attending / other consultants - discharge planning ongoing concurrently COVID SPECIFIC INTERVENTIONS: - COVID-19 test negative .... Re-evaluate in am & prn Subjective Date of service: 12/04/21 Principal diagnosis: AE-COPD; AHRF; CHF (? new onset); CAP; CAD; Obesity; HTNsive Emergency Interval history: Patient is seen today for: AE-COPD; Acute hypoxemic respiratory failure; CHF (? new onset); CAP; CAD; Obesity; HTNsive Emergency Seen and examined at bedside; 24hour events reviewed; nursing and respiratory care staff consulted; no adverse overnight events reported to me; resting peacefully in bed; on 3L NC and tolerating well; no N/V/F/C Objective Vital Signs - 12hr 12/04/21 12/04/21 12/04/21 00:00 00:46 01:01 Temperature 98.2 F Pulse Rate 72 71 70 Pulse Rate [ Anterior Bilateral Throughout] Pulse Rate [ From Monitor] Respiratory 31 H 32 H 28 H Rate Respiratory Rate [Anterior Bilateral Throughout] Blood Pressure 149/68 138/69 151/75 O2 Sat by Pulse 95 95 96 Oximetry 12/04/21 12/04/21 12/04/21 02:00 02:01 03:01 Temperature Pulse Rate 69 64 Pulse Rate [ 72 Anterior Bilateral Throughout] Pulse Rate [ From Monitor] Respiratory 28 H 24 Rate Respiratory 16 Rate [Anterior Bilateral Throughout] Blood Pressure 152/76 152/76 O2 Sat by Pulse 96 97 Oximetry 12/04/21 12/04/21 12/04/21 04:00 04:01 05:00 Temperature 98.0 F Pulse Rate 65 64 Pulse Rate [ Anterior Bilateral Throughout] Pulse Rate [ From Monitor] Respiratory 27 H 25 H Rate Respiratory Rate [Anterior Bilateral Throughout] Blood Pressure 123/58 126/66 O2 Sat by Pulse 98 98 Oximetry 12/04/21 12/04/21 12/04/21 06:00 07:00 08:00 Temperature 98.3 F Pulse Rate 65 67 70 Pulse Rate [ Anterior Bilateral Throughout] Pulse Rate [ From Monitor] Respiratory 22 25 H 22 Rate Respiratory Rate [Anterior Bilateral Throughout] Blood Pressure 132/70 140/70 137/80 O2 Sat by Pulse 97 99 99 Oximetry 12/04/21 12/04/21 12/04/21 08:19 09:00 09:29 Temperature Pulse Rate 67 Pulse Rate [ 67 Anterior Bilateral Throughout] Pulse Rate [ 69 From Monitor] Respiratory 27 H 18 Rate Respiratory 27 H Rate [Anterior Bilateral Throughout] Blood Pressure 137/80 O2 Sat by Pulse 97 97 Oximetry 12/04/21 12/04/21 12/04/21 09:30 10:00 10:45 Temperature Pulse Rate 73 71 Pulse Rate [ Anterior Bilateral Throughout] Pulse Rate [ From Monitor] Respiratory 27 H Rate Respiratory Rate [Anterior Bilateral Throughout] Blood Pressure 144/84 146/66 O2 Sat by Pulse 95 93 Oximetry Constitutional: no acute distress, other (elderly obese female with mildly increased respiratory effort at rest ) Eyes: non-icteric ENT: oropharynx moist Neck: supple, no lymphadenopathy, no JVD, other (large circumference) Effort: mildly labored Ascultation: Bilateral: diminished breath sounds, rhonchi (scant bases) Percussion: Bilateral: not dull Cardiovascular: regular rate and rhythm Gastrointestinal: normoactive bowel sounds, soft, non-tender, non-distended (protuberant) Integumentary: normal Extremities: no cyanosis, no edema, pulses normal, no ischemia or petechiae Neurologic: non-focal exam (grossly), pupils equal and round, CN II-XII normal Psychiatric: mood appropriate, affect normal, other (mild delirium) CBC and BMP: 12/05/21 08:02 12/05/21 08:02 ABG, PT/INR, D-dimer: ABG ABG pH 7.380 pH Units (7.350-7.450) 12/01/21 11:42 POC ABG pCO2 60.0 mmHg (32.0-48.0) H 11/30/21 12:04 ABG pCO2 55.8 mm Hg 12/01/21 11:42 POC ABG pO2 68.3 mmHg (83-108) L 11/30/21 12:04 ABG pO2 71.0 mm Hg (80.0-90.0) L 12/01/21 11:42 POC ABG HCO3 32.9 11/30/21 12:04 ABG O2 Saturation 94.5 % (95.0-99.0) L 12/01/21 11:42 PT/INR, D-dimer PT 12.9 Sec. (12.2-14.9) 11/18/21 00:19 INR 0.88 (0.87-1.13) 11/18/21 00:19 D-Dimer 464.80 ng/mlDDU (0-234) H 11/18/21 05:15 Abnormal lab findings: Abnormal Labs 11/18/21 11/18/21 11/18/21 00:01 00:19 00:19 WBC 15.6 H RBC 5.59 H Hgb 14.8 H Hct 49.8 H MCH 27 L MCHC RDW 16.9 H Plt Count Lymph % (Auto) [place] % (Auto) Lymph # (Auto) [place] # (Auto) Seg Neutrophils % Lymphocytes % (Manual) 4.0 L Seg Neutrophils # Seg Neutrophils # Man 14.7 H Lymphocytes # (Manual) 0.6 L D-Dimer ABG pH POC ABG pCO2 POC ABG pO2 ABG pO2 ABG HCO3 ABG O2 Saturation ABG Base Excess ABG Hemoglobin ABG Oxyhemoglobin ABG Sodium ABG Glucose Oxyhemoglobin Carboxyhemoglobin Sodium Potassium Carbon Dioxide BUN Creatinine Glucose 148 H POC Glucose 151 H Calcium Phosphorus Magnesium Lactate Dehydrogenase Triglycerides Arterial Blood Glucose Arterial Blood Ionized Calcium Urine WBC (Auto) Salicylates Acetaminophen 11/18/21 11/18/21 11/18/21 00:19 00:19 00:19 WBC RBC Hgb Hct MCH MCHC RDW Plt Count Lymph % (Auto) [place] % (Auto) Lymph # (Auto) [place] # (Auto) Seg Neutrophils % Lymphocytes % (Manual) Seg Neutrophils # Seg Neutrophils # Man Lymphocytes # (Manual) D-Dimer ABG pH POC ABG pCO2 POC ABG pO2 ABG pO2 ABG HCO3 ABG O2 Saturation ABG Base Excess ABG Hemoglobin ABG Oxyhemoglobin ABG Sodium ABG Glucose Oxyhemoglobin Carboxyhemoglobin Sodium Potassium Carbon Dioxide BUN Creatinine Glucose POC Glucose Calcium Phosphorus Magnesium 2.50 H Lactate Dehydrogenase Triglycerides Arterial Blood Glucose Arterial Blood Ionized Calcium Urine WBC (Auto) Salicylates < 0.3 L Acetaminophen 5.0 L 11/18/21 11/18/21 11/18/21 01:03 02:00 05:15 WBC RBC Hgb Hct MCH MCHC RDW Plt Count Lymph % (Auto) [place] % (Auto) Lymph # (Auto) [place] # (Auto) Seg Neutrophils % Lymphocytes % (Manual) Seg Neutrophils # Seg Neutrophils # Man Lymphocytes # (Manual) D-Dimer 464.80 H ABG pH POC ABG pCO2 POC ABG pO2 ABG pO2 ABG HCO3 35.8 H ABG O2 Saturation ABG Base Excess 7.8 H ABG Hemoglobin ABG Oxyhemoglobin ABG Sodium ABG Glucose Oxyhemoglobin 91.9 L Carboxyhemoglobin Sodium Potassium Carbon Dioxide BUN Creatinine Glucose POC Glucose Calcium Phosphorus Magnesium Lactate Dehydrogenase Triglycerides Arterial Blood Glucose Arterial Blood Ionized Calcium Urine WBC (Auto) 16.0 H Salicylates Acetaminophen 11/18/21 11/18/21 11/18/21 05:15 15:47 15:47 WBC 13.5 H RBC 5.60 H Hgb 14.9 H Hct 49.1 H MCH 27 L MCHC RDW 17.3 H Plt Count Lymph % (Auto) 7.9 L [place] % (Auto) 10.1 H Lymph # (Auto) 1.1 L [place] # (Auto) 1.4 H Seg Neutrophils % 81.7 H Lymphocytes % (Manual) Seg Neutrophils # 11.0 H Seg Neutrophils # Man Lymphocytes # (Manual) D-Dimer ABG pH POC ABG pCO2 POC ABG pO2 ABG pO2 ABG HCO3 ABG O2 Saturation ABG Base Excess ABG Hemoglobin ABG Oxyhemoglobin ABG Sodium ABG Glucose Oxyhemoglobin Carboxyhemoglobin Sodium Potassium Carbon Dioxide BUN Creatinine Glucose 138 H POC Glucose Calcium Phosphorus Magnesium Lactate Dehydrogenase 275 H Triglycerides Arterial Blood Glucose Arterial Blood Ionized Calcium Urine WBC (Auto) Salicylates Acetaminophen 11/18/21 11/18/21 11/19/21 18:45 23:33 04:58 WBC RBC Hgb Hct MCH MCHC RDW Plt Count Lymph % (Auto) [place] % (Auto) Lymph # (Auto) [place] # (Auto) Seg Neutrophils % Lymphocytes % (Manual) Seg Neutrophils # Seg Neutrophils # Man Lymphocytes # (Manual) D-Dimer ABG pH POC ABG pCO2 POC ABG pO2 ABG pO2 ABG HCO3 ABG O2 Saturation ABG Base Excess ABG Hemoglobin ABG Oxyhemoglobin ABG Sodium ABG Glucose Oxyhemoglobin Carboxyhemoglobin Sodium Potassium Carbon Dioxide BUN Creatinine Glucose 130 H POC Glucose 132 H 113 H Calcium Phosphorus Magnesium Lactate Dehydrogenase Triglycerides Arterial Blood Glucose Arterial Blood Ionized Calcium Urine WBC (Auto) Salicylates Acetaminophen 11/19/21 11/19/21 11/19/21 07:59 07:59 08:55 WBC 12.7 H RBC 5.29 H Hgb Hct 45.5 H MCH 26 L MCHC RDW 17.4 H Plt Count Lymph % (Auto) 12.3 L [place] % (Auto) 9.6 H Lymph # (Auto) [place] # (Auto) 1.2 H Seg Neutrophils % 76.9 H Lymphocytes % (Manual) Seg Neutrophils # 9.7 H Seg Neutrophils # Man Lymphocytes # (Manual) D-Dimer ABG pH 7.518 H POC ABG pCO2 POC ABG pO2 ABG pO2 77.6 L ABG HCO3 30.1 H ABG O2 Saturation ABG Base Excess 6.9 H ABG Hemoglobin ABG Oxyhemoglobin ABG Sodium ABG Glucose Oxyhemoglobin Carboxyhemoglobin Sodium Potassium 3.1 L D Carbon Dioxide BUN Creatinine Glucose 115 H POC Glucose Calcium 8.1 L Phosphorus Magnesium Lactate Dehydrogenase Triglycerides Arterial Blood Glucose Arterial Blood Ionized Calcium Urine WBC (Auto) Salicylates Acetaminophen 11/19/21 11/19/21 11/20/21 11:33 16:22 04:20 WBC 13.9 H RBC 5.44 H Hgb Hct 49.3 H MCH 26 L MCHC 29 L RDW 18.3 H Plt Count Lymph % (Auto) [place] % (Auto) Lymph # (Auto) [place] # (Auto) Seg Neutrophils % Lymphocytes % (Manual) Seg Neutrophils # Seg Neutrophils # Man Lymphocytes # (Manual) D-Dimer ABG pH POC ABG pCO2 POC ABG pO2 ABG pO2 ABG HCO3 ABG O2 Saturation ABG Base Excess ABG Hemoglobin ABG Oxyhemoglobin ABG Sodium ABG Glucose Oxyhemoglobin Carboxyhemoglobin Sodium Potassium Carbon Dioxide BUN Creatinine Glucose POC Glucose 119 H 112 H Calcium Phosphorus Magnesium Lactate Dehydrogenase Triglycerides Arterial Blood Glucose Arterial Blood Ionized Calcium Urine WBC (Auto) Salicylates Acetaminophen 11/20/21 11/20/21 11/20/21 04:20 11:07 12:02 WBC RBC Hgb Hct MCH MCHC RDW Plt Count Lymph % (Auto) [place] % (Auto) Lymph # (Auto) [place] # (Auto) Seg Neutrophils % Lymphocytes % (Manual) Seg Neutrophils # Seg Neutrophils # Man Lymphocytes # (Manual) D-Dimer ABG pH 7.251 L POC ABG pCO2 POC ABG pO2 ABG pO2 66.3 L ABG HCO3 30.2 H ABG O2 Saturation 91.8 L ABG Base Excess ABG Hemoglobin ABG Oxyhemoglobin ABG Sodium ABG Glucose Oxyhemoglobin 89.4 L Carboxyhemoglobin Sodium 147 H Potassium Carbon Dioxide BUN 25 H Creatinine Glucose POC Glucose 118 H Calcium Phosphorus 6.40 H Magnesium Lactate Dehydrogenase Triglycerides Arterial Blood Glucose Arterial Blood Ionized Calcium Urine WBC (Auto) Salicylates Acetaminophen 11/20/21 11/21/21 11/21/21 17:31 00:07 04:44 WBC 14.0 H RBC 5.08 H Hgb Hct 44.7 H MCH 26 L MCHC 29 L RDW 17.8 H Plt Count Lymph % (Auto) [place] % (Auto) Lymph # (Auto) [place] # (Auto) Seg Neutrophils % Lymphocytes % (Manual) Seg Neutrophils # Seg Neutrophils # Man Lymphocytes # (Manual) D-Dimer ABG pH POC ABG pCO2 POC ABG pO2 ABG pO2 ABG HCO3 ABG O2 Saturation ABG Base Excess ABG Hemoglobin ABG Oxyhemoglobin ABG Sodium ABG Glucose Oxyhemoglobin Carboxyhemoglobin Sodium Potassium Carbon Dioxide BUN Creatinine Glucose POC Glucose 139 H 147 H Calcium Phosphorus Magnesium Lactate Dehydrogenase Triglycerides Arterial Blood Glucose Arterial Blood Ionized Calcium Urine WBC (Auto) Salicylates Acetaminophen 11/21/21 11/21/21 11/21/21 04:44 06:06 11:45 WBC RBC Hgb Hct MCH MCHC RDW Plt Count Lymph % (Auto) [place] % (Auto) Lymph # (Auto) [place] # (Auto) Seg Neutrophils % Lymphocytes % (Manual) Seg Neutrophils # Seg Neutrophils # Man Lymphocytes # (Manual) D-Dimer ABG pH POC ABG pCO2 POC ABG pO2 ABG pO2 ABG HCO3 ABG O2 Saturation ABG Base Excess ABG Hemoglobin ABG Oxyhemoglobin ABG Sodium ABG Glucose Oxyhemoglobin Carboxyhemoglobin Sodium Potassium Carbon Dioxide BUN 20 H Creatinine Glucose 157 H POC Glucose 158 H 119 H Calcium Phosphorus Magnesium Lactate Dehydrogenase Triglycerides Arterial Blood Glucose Arterial Blood Ionized Calcium Urine WBC (Auto) Salicylates Acetaminophen 11/21/21 11/21/21 11/22/21 11:50 16:54 00:03 WBC RBC Hgb Hct MCH MCHC RDW Plt Count Lymph % (Auto) [place] % (Auto) Lymph # (Auto) [place] # (Auto) Seg Neutrophils % Lymphocytes % (Manual) Seg Neutrophils # Seg Neutrophils # Man Lymphocytes # (Manual) D-Dimer ABG pH POC ABG pCO2 POC ABG pO2 ABG pO2 61.8 L ABG HCO3 35.2 H ABG O2 Saturation 92.8 L ABG Base Excess 8.1 H ABG Hemoglobin ABG Oxyhemoglobin ABG Sodium ABG Glucose Oxyhemoglobin 90.6 L Carboxyhemoglobin Sodium Potassium Carbon Dioxide BUN Creatinine Glucose POC Glucose 149 H 133 H Calcium Phosphorus Magnesium Lactate Dehydrogenase Triglycerides Arterial Blood Glucose Arterial Blood Ionized Calcium Urine WBC (Auto) Salicylates Acetaminophen 11/22/21 11/22/21 11/22/21 04:39 04:39 04:39 WBC 14.1 H RBC Hgb Hct 43.4 H MCH 26 L MCHC RDW 17.9 H Plt Count Lymph % (Auto) [place] % (Auto) Lymph # (Auto) [place] # (Auto) Seg Neutrophils % Lymphocytes % (Manual) Seg Neutrophils # Seg Neutrophils # Man Lymphocytes # (Manual) D-Dimer ABG pH POC ABG pCO2 POC ABG pO2 ABG pO2 ABG HCO3 ABG O2 Saturation ABG Base Excess ABG Hemoglobin ABG Oxyhemoglobin ABG Sodium ABG Glucose Oxyhemoglobin Carboxyhemoglobin Sodium Potassium Carbon Dioxide 33 H BUN Creatinine Glucose 152 H POC Glucose Calcium Phosphorus Magnesium Lactate Dehydrogenase Triglycerides 185 H Arterial Blood Glucose Arterial Blood Ionized Calcium Urine WBC (Auto) Salicylates Acetaminophen 11/22/21 11/22/21 11/22/21 05:02 10:56 11:31 WBC RBC Hgb Hct MCH MCHC RDW Plt Count Lymph % (Auto) [place] % (Auto) Lymph # (Auto) [place] # (Auto) Seg Neutrophils % Lymphocytes % (Manual) Seg Neutrophils # Seg Neutrophils # Man Lymphocytes # (Manual) D-Dimer ABG pH POC ABG pCO2 POC ABG pO2 ABG pO2 55.3 L ABG HCO3 39.4 H ABG O2 Saturation 89.5 L ABG Base Excess 11.7 H ABG Hemoglobin ABG Oxyhemoglobin ABG Sodium ABG Glucose Oxyhemoglobin 87.2 L Carboxyhemoglobin Sodium Potassium Carbon Dioxide BUN Creatinine Glucose POC Glucose 158 H 116 H Calcium Phosphorus Magnesium Lactate Dehydrogenase Triglycerides Arterial Blood Glucose Arterial Blood Ionized Calcium Urine WBC (Auto) Salicylates Acetaminophen 11/22/21 11/22/21 11/23/21 17:29 23:22 04:49 WBC 13.6 H RBC 5.18 H Hgb Hct 45.6 H MCH 25 L MCHC 29 L RDW 17.5 H Plt Count Lymph % (Auto) [place] % (Auto) Lymph # (Auto) [place] # (Auto) Seg Neutrophils % Lymphocytes % (Manual) Seg Neutrophils # Seg Neutrophils # Man Lymphocytes # (Manual) D-Dimer ABG pH POC ABG pCO2 POC ABG pO2 ABG pO2 ABG HCO3 ABG O2 Saturation ABG Base Excess ABG Hemoglobin ABG Oxyhemoglobin ABG Sodium ABG Glucose Oxyhemoglobin Carboxyhemoglobin Sodium Potassium Carbon Dioxide BUN Creatinine Glucose POC Glucose 129 H 171 H Calcium Phosphorus Magnesium Lactate Dehydrogenase Triglycerides Arterial Blood Glucose Arterial Blood Ionized Calcium Urine WBC (Auto) Salicylates Acetaminophen 11/23/21 11/23/21 11/23/21 04:49 11:53 16:22 WBC RBC Hgb Hct MCH MCHC RDW Plt Count Lymph % (Auto) [place] % (Auto) Lymph # (Auto) [place] # (Auto) Seg Neutrophils % Lymphocytes % (Manual) Seg Neutrophils # Seg Neutrophils # Man Lymphocytes # (Manual) D-Dimer ABG pH POC ABG pCO2 POC ABG pO2 ABG pO2 61.8 L ABG HCO3 40.9 H ABG O2 Saturation 93.4 L ABG Base Excess 14.6 H ABG Hemoglobin 6.9 L ABG Oxyhemoglobin ABG Sodium ABG Glucose Oxyhemoglobin 90.2 L Carboxyhemoglobin Sodium 146 H Potassium Carbon Dioxide 36 H BUN 21 H Creatinine Glucose 155 H POC Glucose 166 H Calcium Phosphorus Magnesium Lactate Dehydrogenase Triglycerides Arterial Blood Glucose Arterial Blood Ionized Calcium Urine WBC (Auto) Salicylates Acetaminophen 11/23/21 11/23/21 11/24/21 17:11 23:07 05:03 WBC RBC Hgb Hct MCH MCHC RDW Plt Count Lymph % (Auto) [place] % (Auto) Lymph # (Auto) [place] # (Auto) Seg Neutrophils % Lymphocytes % (Manual) Seg Neutrophils # Seg Neutrophils # Man Lymphocytes # (Manual) D-Dimer ABG pH POC ABG pCO2 POC ABG pO2 ABG pO2 ABG HCO3 ABG O2 Saturation ABG Base Excess ABG Hemoglobin ABG Oxyhemoglobin ABG Sodium ABG Glucose Oxyhemoglobin Carboxyhemoglobin Sodium Potassium Carbon Dioxide BUN Creatinine Glucose POC Glucose 142 H 197 H 183 H Calcium Phosphorus Magnesium Lactate Dehydrogenase Triglycerides Arterial Blood Glucose Arterial Blood Ionized Calcium Urine WBC (Auto) Salicylates Acetaminophen 11/24/21 11/24/21 11/24/21 08:33 08:33 09:00 WBC RBC Hgb Hct 43.6 H MCH 26 L MCHC RDW 18.0 H Plt Count Lymph % (Auto) [place] % (Auto) Lymph # (Auto) [place] # (Auto) Seg Neutrophils % Lymphocytes % (Manual) Seg Neutrophils # Seg Neutrophils # Man Lymphocytes # (Manual) D-Dimer ABG pH POC ABG pCO2 POC ABG pO2 ABG pO2 69.1 L ABG HCO3 40.1 H ABG O2 Saturation 93.2 L ABG Base Excess 11.9 H ABG Hemoglobin ABG Oxyhemoglobin ABG Sodium ABG Glucose Oxyhemoglobin 90.3 L Carboxyhemoglobin Sodium Potassium 5.3 H D Carbon Dioxide 36 H BUN 25 H Creatinine 0.5 L Glucose 185 H POC Glucose Calcium Phosphorus Magnesium Lactate Dehydrogenase Triglycerides Arterial Blood Glucose Arterial Blood Ionized Calcium Urine WBC (Auto) Salicylates Acetaminophen 11/24/21 11/24/21 11/25/21 12:00 18:08 00:50 WBC RBC Hgb Hct MCH MCHC RDW Plt Count Lymph % (Auto) [place] % (Auto) Lymph # (Auto) [place] # (Auto) Seg Neutrophils % Lymphocytes % (Manual) Seg Neutrophils # Seg Neutrophils # Man Lymphocytes # (Manual) D-Dimer ABG pH POC ABG pCO2 POC ABG pO2 ABG pO2 67.3 L ABG HCO3 41.6 H 42.7 H ABG O2 Saturation 94.5 L ABG Base Excess 12.3 H 14.7 H ABG Hemoglobin ABG Oxyhemoglobin ABG Sodium ABG Glucose Oxyhemoglobin 93.1 L 91.6 L Carboxyhemoglobin Sodium Potassium Carbon Dioxide BUN Creatinine Glucose POC Glucose 168 H Calcium Phosphorus Magnesium Lactate Dehydrogenase Triglycerides Arterial Blood Glucose Arterial Blood Ionized Calcium Urine WBC (Auto) Salicylates Acetaminophen 11/25/21 11/25/21 11/25/21 04:57 04:57 14:18 WBC RBC 5.13 H Hgb Hct 45.1 H MCH 26 L MCHC RDW 17.7 H Plt Count Lymph % (Auto) [place] % (Auto) Lymph # (Auto) [place] # (Auto) Seg Neutrophils % Lymphocytes % (Manual) Seg Neutrophils # Seg Neutrophils # Man Lymphocytes # (Manual) D-Dimer ABG pH POC ABG pCO2 POC ABG pO2 ABG pO2 65.1 L ABG HCO3 41.7 H ABG O2 Saturation 94.2 L ABG Base Excess 13.4 H ABG Hemoglobin ABG Oxyhemoglobin ABG Sodium ABG Glucose Oxyhemoglobin 91.3 L Carboxyhemoglobin Sodium 146 H Potassium Carbon Dioxide 38 H BUN 26 H Creatinine 0.5 L Glucose 210 H POC Glucose Calcium Phosphorus Magnesium Lactate Dehydrogenase Triglycerides Arterial Blood Glucose Arterial Blood Ionized Calcium Urine WBC (Auto) Salicylates Acetaminophen 11/25/21 11/26/21 11/26/21 19:22 04:28 04:28 WBC RBC 5.05 H Hgb Hct 44.0 H MCH 26 L MCHC RDW 17.6 H Plt Count Lymph % (Auto) [place] % (Auto) Lymph # (Auto) [place] # (Auto) Seg Neutrophils % Lymphocytes % (Manual) Seg Neutrophils # Seg Neutrophils # Man Lymphocytes # (Manual) D-Dimer ABG pH POC ABG pCO2 POC ABG pO2 ABG pO2 ABG HCO3 ABG O2 Saturation ABG Base Excess ABG Hemoglobin ABG Oxyhemoglobin ABG Sodium ABG Glucose Oxyhemoglobin Carboxyhemoglobin Sodium 146 H Potassium Carbon Dioxide 38 H BUN 30 H Creatinine Glucose 124 H POC Glucose 151 H Calcium 10.5 H Phosphorus Magnesium Lactate Dehydrogenase Triglycerides Arterial Blood Glucose Arterial Blood Ionized Calcium Urine WBC (Auto) Salicylates Acetaminophen 11/26/21 11/26/21 11/27/21 05:50 10:28 08:31 WBC 12.4 H RBC 5.62 H Hgb 14.6 H Hct 48.7 H MCH 26 L MCHC RDW 17.9 H Plt Count 469 H Lymph % (Auto) [place] % (Auto) Lymph # (Auto) [place] # (Auto) Seg Neutrophils % Lymphocytes % (Manual) Seg Neutrophils # Seg Neutrophils # Man Lymphocytes # (Manual) D-Dimer ABG pH POC ABG pCO2 POC ABG pO2 ABG pO2 66.5 L ABG HCO3 39.6 H ABG O2 Saturation 92.9 L ABG Base Excess 11.4 H ABG Hemoglobin 16.8 H ABG Oxyhemoglobin ABG Sodium ABG Glucose Oxyhemoglobin 90.3 L Carboxyhemoglobin Sodium Potassium Carbon Dioxide BUN Creatinine Glucose POC Glucose 121 H Calcium Phosphorus Magnesium Lactate Dehydrogenase Triglycerides Arterial Blood Glucose Arterial Blood Ionized Calcium Urine WBC (Auto) Salicylates Acetaminophen 11/27/21 11/27/21 11/27/21 08:31 09:46 11:49 WBC RBC Hgb Hct MCH MCHC RDW Plt Count Lymph % (Auto) [place] % (Auto) Lymph # (Auto) [place] # (Auto) Seg Neutrophils % Lymphocytes % (Manual) Seg Neutrophils # Seg Neutrophils # Man Lymphocytes # (Manual) D-Dimer ABG pH POC ABG pCO2 POC ABG pO2 ABG pO2 ABG HCO3 ABG O2 Saturation ABG Base Excess ABG Hemoglobin ABG Oxyhemoglobin ABG Sodium ABG Glucose Oxyhemoglobin Carboxyhemoglobin Sodium 150 H Potassium Carbon Dioxide 33 H BUN 31 H Creatinine Glucose 135 H POC Glucose 140 H 153 H Calcium 11.0 H Phosphorus Magnesium Lactate Dehydrogenase Triglycerides Arterial Blood Glucose Arterial Blood Ionized Calcium Urine WBC (Auto) Salicylates Acetaminophen 11/27/21 11/27/21 11/27/21 14:16 17:14 23:25 WBC RBC Hgb Hct MCH MCHC RDW Plt Count Lymph % (Auto) [place] % (Auto) Lymph # (Auto) [place] # (Auto) Seg Neutrophils % Lymphocytes % (Manual) Seg Neutrophils # Seg Neutrophils # Man Lymphocytes # (Manual) D-Dimer ABG pH 7.485 H POC ABG pCO2 48.7 H POC ABG pO2 74.5 L ABG pO2 ABG HCO3 ABG O2 Saturation ABG Base Excess ABG Hemoglobin ABG Oxyhemoglobin ABG Sodium 145.5 H ABG Glucose 153 H Oxyhemoglobin Carboxyhemoglobin 1.6 H Sodium Potassium Carbon Dioxide BUN Creatinine Glucose POC Glucose 142 H 123 H Calcium Phosphorus Magnesium Lactate Dehydrogenase Triglycerides Arterial Blood Glucose 153 H Arterial Blood Ionized Calcium 5.4 H Urine WBC (Auto) Salicylates Acetaminophen 11/28/21 11/28/21 11/28/21 03:38 03:38 05:16 WBC RBC 5.05 H Hgb Hct 43.6 H MCH 26 L MCHC RDW 17.8 H Plt Count Lymph % (Auto) [place] % (Auto) Lymph # (Auto) [place] # (Auto) Seg Neutrophils % Lymphocytes % (Manual) Seg Neutrophils # Seg Neutrophils # Man Lymphocytes # (Manual) D-Dimer ABG pH POC ABG pCO2 POC ABG pO2 ABG pO2 ABG HCO3 ABG O2 Saturation ABG Base Excess ABG Hemoglobin ABG Oxyhemoglobin ABG Sodium ABG Glucose Oxyhemoglobin Carboxyhemoglobin Sodium 150 H Potassium Carbon Dioxide 32 H BUN 51 H Creatinine Glucose 143 H POC Glucose 138 H Calcium 10.5 H Phosphorus Magnesium Lactate Dehydrogenase Triglycerides Arterial Blood Glucose Arterial Blood Ionized Calcium Urine WBC (Auto) Salicylates Acetaminophen 11/28/21 11/28/21 11/29/21 17:01 23:51 03:51 WBC RBC Hgb Hct MCH MCHC RDW Plt Count Lymph % (Auto) [place] % (Auto) Lymph # (Auto) [place] # (Auto) Seg Neutrophils % Lymphocytes % (Manual) Seg Neutrophils # Seg Neutrophils # Man Lymphocytes # (Manual) D-Dimer ABG pH POC ABG pCO2 54.1 H POC ABG pO2 70.6 L ABG pO2 ABG HCO3 ABG O2 Saturation ABG Base Excess ABG Hemoglobin ABG Oxyhemoglobin 93.1 L ABG Sodium ABG Glucose 144 H Oxyhemoglobin Carboxyhemoglobin Sodium Potassium Carbon Dioxide BUN Creatinine Glucose POC Glucose 145 H 130 H Calcium Phosphorus Magnesium Lactate Dehydrogenase Triglycerides Arterial Blood Glucose 144 H Arterial Blood Ionized Calcium Urine WBC (Auto) Salicylates Acetaminophen 11/29/21 11/29/21 11/29/21 05:51 05:51 12:09 WBC 11.1 H RBC Hgb Hct MCH 26 L MCHC RDW 17.8 H Plt Count Lymph % (Auto) [place] % (Auto) Lymph # (Auto) [place] # (Auto) Seg Neutrophils % Lymphocytes % (Manual) Seg Neutrophils # Seg Neutrophils # Man Lymphocytes # (Manual) D-Dimer ABG pH POC ABG pCO2 POC ABG pO2 ABG pO2 ABG HCO3 ABG O2 Saturation ABG Base Excess ABG Hemoglobin ABG Oxyhemoglobin ABG Sodium ABG Glucose Oxyhemoglobin Carboxyhemoglobin Sodium Potassium Carbon Dioxide 31 H BUN 42 H Creatinine Glucose 133 H POC Glucose 157 H Calcium Phosphorus Magnesium Lactate Dehydrogenase Triglycerides Arterial Blood Glucose Arterial Blood Ionized Calcium Urine WBC (Auto) Salicylates Acetaminophen 11/29/21 11/30/21 11/30/21 17:27 00:23 04:42 WBC RBC 5.05 H Hgb Hct 43.6 H MCH 26 L MCHC RDW 17.5 H Plt Count Lymph % (Auto) [place] % (Auto) Lymph # (Auto) [place] # (Auto) Seg Neutrophils % Lymphocytes % (Manual) Seg Neutrophils # Seg Neutrophils # Man Lymphocytes # (Manual) D-Dimer ABG pH POC ABG pCO2 POC ABG pO2 ABG pO2 ABG HCO3 ABG O2 Saturation ABG Base Excess ABG Hemoglobin ABG Oxyhemoglobin ABG Sodium ABG Glucose Oxyhemoglobin Carboxyhemoglobin Sodium Potassium Carbon Dioxide BUN Creatinine Glucose POC Glucose 164 H 192 H Calcium Phosphorus Magnesium Lactate Dehydrogenase Triglycerides Arterial Blood Glucose Arterial Blood Ionized Calcium Urine WBC (Auto) Salicylates Acetaminophen 11/30/21 11/30/21 11/30/21 04:42 11:27 12:04 WBC RBC Hgb Hct MCH MCHC RDW Plt Count Lymph % (Auto) [place] % (Auto) Lymph # (Auto) [place] # (Auto) Seg Neutrophils % Lymphocytes % (Manual) Seg Neutrophils # Seg Neutrophils # Man Lymphocytes # (Manual) D-Dimer ABG pH POC ABG pCO2 60.0 H POC ABG pO2 68.3 L ABG pO2 ABG HCO3 ABG O2 Saturation ABG Base Excess ABG Hemoglobin ABG Oxyhemoglobin 90.9 L ABG Sodium 145.1 H ABG Glucose 122 H Oxyhemoglobin Carboxyhemoglobin Sodium Potassium Carbon Dioxide BUN 32 H Creatinine 0.5 L Glucose 178 H POC Glucose 156 H Calcium Phosphorus Magnesium Lactate Dehydrogenase Triglycerides Arterial Blood Glucose 122 H Arterial Blood Ionized Calcium Urine WBC (Auto) Salicylates Acetaminophen 11/30/21 11/30/21 12/01/21 17:35 23:51 04:00 WBC 13.8 H RBC Hgb Hct MCH 26 L MCHC RDW 17.6 H Plt Count 455 H Lymph % (Auto) [place] % (Auto) Lymph # (Auto) [place] # (Auto) Seg Neutrophils % Lymphocytes % (Manual) Seg Neutrophils # Seg Neutrophils # Man Lymphocytes # (Manual) D-Dimer ABG pH POC ABG pCO2 POC ABG pO2 ABG pO2 ABG HCO3 ABG O2 Saturation ABG Base Excess ABG Hemoglobin ABG Oxyhemoglobin ABG Sodium ABG Glucose Oxyhemoglobin Carboxyhemoglobin Sodium Potassium Carbon Dioxide BUN Creatinine Glucose POC Glucose 124 H 158 H Calcium Phosphorus Magnesium Lactate Dehydrogenase Triglycerides Arterial Blood Glucose Arterial Blood Ionized Calcium Urine WBC (Auto) Salicylates Acetaminophen 12/01/21 12/01/21 12/01/21 04:00 06:03 11:13 WBC RBC Hgb Hct MCH MCHC RDW Plt Count Lymph % (Auto) [place] % (Auto) Lymph # (Auto) [place] # (Auto) Seg Neutrophils % Lymphocytes % (Manual) Seg Neutrophils # Seg Neutrophils # Man Lymphocytes # (Manual) D-Dimer ABG pH POC ABG pCO2 POC ABG pO2 ABG pO2 ABG HCO3 ABG O2 Saturation ABG Base Excess ABG Hemoglobin ABG Oxyhemoglobin ABG Sodium ABG Glucose Oxyhemoglobin Carboxyhemoglobin Sodium Potassium Carbon Dioxide BUN 36 H Creatinine 0.5 L Glucose 188 H POC Glucose 178 H 121 H Calcium Phosphorus Magnesium Lactate Dehydrogenase Triglycerides Arterial Blood Glucose Arterial Blood Ionized Calcium Urine WBC (Auto) Salicylates Acetaminophen 12/01/21 12/01/21 12/01/21 11:42 16:54 23:43 WBC RBC Hgb Hct MCH MCHC RDW Plt Count Lymph % (Auto) [place] % (Auto) Lymph # (Auto) [place] # (Auto) Seg Neutrophils % Lymphocytes % (Manual) Seg Neutrophils # Seg Neutrophils # Man Lymphocytes # (Manual) D-Dimer ABG pH POC ABG pCO2 POC ABG pO2 ABG pO2 71.0 L ABG HCO3 32.3 H ABG O2 Saturation 94.5 L ABG Base Excess 5.7 H ABG Hemoglobin ABG Oxyhemoglobin ABG Sodium ABG Glucose Oxyhemoglobin 92.6 L Carboxyhemoglobin Sodium Potassium Carbon Dioxide BUN Creatinine Glucose POC Glucose 129 H 115 H Calcium Phosphorus Magnesium Lactate Dehydrogenase Triglycerides Arterial Blood Glucose Arterial Blood Ionized Calcium Urine WBC (Auto) Salicylates Acetaminophen 12/02/21 12/02/21 12/02/21 04:55 04:55 05:19 WBC RBC Hgb Hct MCH 26 L MCHC RDW 18.1 H Plt Count 476 H Lymph % (Auto) [place] % (Auto) Lymph # (Auto) [place] # (Auto) Seg Neutrophils % Lymphocytes % (Manual) Seg Neutrophils # Seg Neutrophils # Man Lymphocytes # (Manual) D-Dimer ABG pH POC ABG pCO2 POC ABG pO2 ABG pO2 ABG HCO3 ABG O2 Saturation ABG Base Excess ABG Hemoglobin ABG Oxyhemoglobin ABG Sodium ABG Glucose Oxyhemoglobin Carboxyhemoglobin Sodium Potassium Carbon Dioxide 33 H BUN 30 H Creatinine 0.5 L Glucose 140 H POC Glucose 127 H Calcium Phosphorus Magnesium Lactate Dehydrogenase Triglycerides Arterial Blood Glucose Arterial Blood Ionized Calcium Urine WBC (Auto) Salicylates Acetaminophen 12/02/21 12/02/21 12/02/21 11:33 17:19 23:49 WBC RBC Hgb Hct MCH MCHC RDW Plt Count Lymph % (Auto) [place] % (Auto) Lymph # (Auto) [place] # (Auto) Seg Neutrophils % Lymphocytes % (Manual) Seg Neutrophils # Seg Neutrophils # Man Lymphocytes # (Manual) D-Dimer ABG pH POC ABG pCO2 POC ABG pO2 ABG pO2 ABG HCO3 ABG O2 Saturation ABG Base Excess ABG Hemoglobin ABG Oxyhemoglobin ABG Sodium ABG Glucose Oxyhemoglobin Carboxyhemoglobin Sodium Potassium Carbon Dioxide BUN Creatinine Glucose POC Glucose 118 H 139 H 140 H Calcium Phosphorus Magnesium Lactate Dehydrogenase Triglycerides Arterial Blood Glucose Arterial Blood Ionized Calcium Urine WBC (Auto) Salicylates Acetaminophen 12/03/21 12/03/21 12/03/21 04:52 04:52 05:03 WBC RBC 5.15 H Hgb Hct 44.2 H MCH 27 L MCHC RDW 17.8 H Plt Count 566 H Lymph % (Auto) [place] % (Auto) Lymph # (Auto) [place] # (Auto) Seg Neutrophils % Lymphocytes % (Manual) Seg Neutrophils # Seg Neutrophils # Man Lymphocytes # (Manual) D-Dimer ABG pH POC ABG pCO2 POC ABG pO2 ABG pO2 ABG HCO3 ABG O2 Saturation ABG Base Excess ABG Hemoglobin ABG Oxyhemoglobin ABG Sodium ABG Glucose Oxyhemoglobin Carboxyhemoglobin Sodium Potassium Carbon Dioxide BUN 22 H Creatinine 0.4 L Glucose 142 H POC Glucose 142 H Calcium Phosphorus Magnesium Lactate Dehydrogenase Triglycerides Arterial Blood Glucose Arterial Blood Ionized Calcium Urine WBC (Auto) Salicylates Acetaminophen 12/03/21 12/03/21 12/04/21 11:16 16:11 04:48 WBC 12.1 H RBC 5.58 H Hgb Hct 47.8 H MCH 26 L MCHC RDW 18.4 H Plt Count 576 H Lymph % (Auto) [place] % (Auto) Lymph # (Auto) [place] # (Auto) Seg Neutrophils % Lymphocytes % (Manual) Seg Neutrophils # Seg Neutrophils # Man Lymphocytes # (Manual) D-Dimer ABG pH POC ABG pCO2 POC ABG pO2 ABG pO2 ABG HCO3 ABG O2 Saturation ABG Base Excess ABG Hemoglobin ABG Oxyhemoglobin ABG Sodium ABG Glucose Oxyhemoglobin Carboxyhemoglobin Sodium Potassium Carbon Dioxide BUN Creatinine Glucose POC Glucose 147 H 140 H Calcium Phosphorus Magnesium Lactate Dehydrogenase Triglycerides Arterial Blood Glucose Arterial Blood Ionized Calcium Urine WBC (Auto) Salicylates Acetaminophen 12/04/21 12/04/21 04:48 05:42 WBC RBC Hgb Hct MCH MCHC RDW Plt Count Lymph % (Auto) [place] % (Auto) Lymph # (Auto) [place] # (Auto) Seg Neutrophils % Lymphocytes % (Manual) Seg Neutrophils # Seg Neutrophils # Man Lymphocytes # (Manual) D-Dimer ABG pH POC ABG pCO2 POC ABG pO2 ABG pO2 ABG HCO3 ABG O2 Saturation ABG Base Excess ABG Hemoglobin ABG Oxyhemoglobin ABG Sodium ABG Glucose Oxyhemoglobin Carboxyhemoglobin Sodium Potassium Carbon Dioxide BUN 19 H Creatinine 0.5 L Glucose 123 H POC Glucose 111 H Calcium Phosphorus Magnesium Lactate Dehydrogenase Triglycerides Arterial Blood Glucose Arterial Blood Ionized Calcium Urine WBC (Auto) Salicylates Acetaminophen Allied health notes reviewed: nursing
--- NOTE | 2021-12-04 14:40 | Progress Note ---
Assessment and Plan Assessment and plan: This is a 81-year-old AA female with past medical history of CAD, CHF, pulmonary hypertension, COPD, and tobacco abuse admitted for acute hypoxemic respiratory failure 2/2 of bilateral pneumonia vs COPD exacerbation/pulmonary edema required intubation and ventilatory support. Hospital Course to Date: 11/18: Patient was seen and examined in the ED. Patient is intubated and sedated on propofol and versed gtt, RASS -3 to -4. Patient is in hypertensive emergency this am, SBP in the 240s, cardene gtt was initiated, maintain SBP less than 160. Leukocytosis noted, UA significant for UTI. Lactic, procal, and CRP are normal. Patient remains afebrile, continue empiric IV abx for now. Tracheal aspirate ordered, blood culture is pending. Continue to f/u on culture data. 11/19: Patient remains intubated and sedated. Patient did not tolerate sedation vacation this am, became tachycardic, hypertensive, with elevated RR and SPO2 in the low 80s. Sedation back on, continue to wean sedation as tolerated for RASS goal of 0 to -2. Pateimt is off cardene gtt, PRN hydralazine for SPO2 above 160. Low K repleted, repeat labs in the am. 11/20: Remains on the vent and sedated, RASS -3. Plan to wean down on sedation, might need to add Seroquel if patient is not tolerating sedation. Hypernatremia and increased BUN/Cr. this am, patient is on lasix BID. Will discuss with [facility] to possibly hold or decreased IV lasix for now, FWF added for high Na. Urinary retention post briggs removal, bladder scan and straight cath per protocol. 11/21: Patient remains on the vent, unable to wean sedation at this time, Seroquel added. Titrate sedation as tolerated for RASS of 0 to -2. Briggs was re inserted overnight for urinary retention, kidney function is stable. 11/22: [facility] reduced FiO2. We will start weaning tomorrow. No acute events reported overnight. 11/23: Patient spiked a fever overnight and was cultured this morning. Attempted CPAP trial again today. An ABG obtained post trial which has been given to [facility]. Slight hypernatremia noted. 11/24: I updated patient's son today, Kwame Salamanca at [phone]. Lasix stopped today. Patient placed on CPAP trial. She lasted on CPAP all day yesterday and was rested overnight on assist control. Given Kayexalate today due to hyperkalemia. 11/25: Patient was on SBT today and was not arousable for a while and a CT head was obtained which showed no acute intracranial abnormality. Patient later became severely agitated and was switched back to assist control and placed back on sedation. Family updated today. Restarted home Coreg due to hypotension. 11/26: SBT today, Haldol as needed. Briggs was removed yesterday bladder scan x2 with urine output. Slight hypernatremia persists. Blood pressure better controlled. 11/27/2021: Patient was extubated by [facility] this morning. Patient was severely agitated and given 2 mg Ativan, SBP 200s and given labatalol x1 10mg, NJ tube placed and given PO BP medications. She had stridor and was given racemic epi. We wanted to place BiPAP but after consolation with Dr. Gallegos it was decided to intubate the patient. She was intubated by Deidra, RT and given etomidate, versed and fentanyl. CXR in process. On fentanyl and precedex gtt. 11/28: added buspar to help with agitation, restarted serqoul at lower dose. weaned fi02 today. 11/29: Remains on the vent and on sedation, fent and precedx gtts. D/w CCM plan for possible SAT and SBT in the am, hold TF at 6am on 11/30 for possible SAT/SBT. 11/30: Patient mentation slightly better this am, still on predex and fentanyl gtt. However, easily arousable, following simple commands. Tolerated SBT trial for about 2hrs today then patient was placed back on a rate due to increased work of breathing and increased agitation. D/w CCM seroquel increased to BID, plan to try SAT/SBT again the am. 12/01: CONY overnight. Patient mentation continue to improve. Tolerating SBT this am, possible extubation today if ABG is wnr. 12/02: Extubated yesterday, on 4L NC this SPO2 at 100%. Patient is awake following simple commands this am, however, she is confused. Spoke to patient's son, Kwame Salamanca. He was updated on patient's status. He reported that patient was very self sufficient prior to admit, with no neurological nor any psych issues that he knows of. All questions and concerns were voiced at this time. Will continue to monitor for now. D/w [facility] patient is stable for transfer to IMCU 12/03: Slight improvement in mentation this am, however still drowsy and disorientated. Will hold seroquel and Buspar for now. Patient is on ventimask this am, plan to wean O2 supplementation for SPO2 goal above 90%. Transfer order placed for IMCU 12/04: Mentation much better this am, remains on 4L NC. Hypertensive overnight, however per RN patient was NPO since NGT was accidently pulled out overnight. Patient passed bedside swallow this am. Will start patient on a soft diet. D/w [facility] patient is stable for transfer to Telemetry. Assessment and Plan #Neuro: Agitation-improved - Mentation much better this am, Awake and Alert - Seroquel and Buspar D/C - PRN Haldol for agitation - Close monitoring of QTc - Avoid benzodiazepine to reduce the possibility of delirium - PRN analgesia for CPOT greater than 3 - Maintenance of sleep-wake cycle #Hypertension #CHF and Pulmonary HTN #Hypertensive Emergency-resolved #H/o CAD - Patient SBP as in the 240s in the ED - S/p cardene gtt - 12/2020 Echo with a EF of 60- 65% - IV Lasix D/naren - Hypertensive overnight, NGT was out, patient couldn't get PO meds - Continue home antihypertensives - Continue blood pressure monitor per protocol - PRN hydralazine for SBP greater than 160 #Acute Hypoxemic Respiratory Failure #COPD Exacerbation #Bilateral Pneumonia #Pulmonary Edema - Chest x-ray shows bilateral pulmonary opacities possibly representing edema/atelectasis or pneumonia. - CT of the chest shows evidence of pulmonary hypertension with dense consolidation along the left lower lobe that is concerning for pneumonia. Mild interstitial pulmonary edema. - Patient intubated in the ED on 11/18, extubated on 11/27 - Patient was reintubated on 11/27 due to stridor - 12/01 extubated - Stable on 4L NC this am, SPO2 above 92% - Wean O2 supplementation as tolerated - [facility] consulted, appreciate recommendations - IV steroids completed - Aspiration precaution HOB above 30 - PRN ABG and CXR - Continue SPO2 monitoring for SPO2 goal above 90% #GI:H/o GERD - NGT accidently pulled out - Passed bedside swallow, will start soft diet - Speech on consult - Continue PPI- Pepcid - Continue BR #Urinary Retention #Hyperkalemia-improved #Hypokalemia-resolved - Briggs reinserted twice due to urinary retention - LAsix D/naren - Strict intake and output - Monitor and replace electrolytes as needed - Trend BMP - Avoid nephrotoxic medications; Renally dose medications #Elevated D-Dimer - BLE DVT negative - Per CCM no indication for CTA at this time - Lovenox added for DVT proph. - SCDs to bilateral lower extremities while in bed #ID:Bilateral Pneumonia #Urinary tract Infection #Leukocytosis - Imagings shown bilateral opacities representing pulmonary edema vs pneumonia - WBCs as high as 15.6, now wnr - CRP and procal is normal - COVID swab neg - Urinalysis was significant for UTI. - B. cultures negative - Sputum culture +parisa Albicans - Patient afebrile - Patient completed IV antibiotic course - Daily CBC monitor - Consider ID consult if febrile or/and if leukocytosis reocccur #Endo:Glycemic Control - Will switch to ACHS - SSI ACHS - Avoid Hypoglycemia The high probability of a clinically significant, sudden or life threatening deterioration of the [Neuro, Resp] system(s) required my full and direct attention, intervention and personal management. The aggregate critical care time was [40] minutes. This time is in addition to time spent performing reported procedures but includes the following: [x] Data Review and interpretation [x] Patient assessment and monitoring of vital signs [x] Documentation [x] Medication orders and management Disposition Plan: ICU Total Time Spent with Patient (Minutes): 40 History Interval history: Patient seen and examined at the bedside. Patient is more awake and alert this am, remains on 4L NC SPO2 above 92%. Per RN patient has been able to tolerate PO overnight, NGT was accidentally pulled overnight. Otherwise CONY overnight Hospitalist Physical - Constitutional Vitals: Temp Pulse Resp BP Pulse Ox 98.2 F 77 29 H 135/82 95 12/04/21 12:00 12/04/21 14:00 12/04/21 14:00 12/04/21 14:00 12/04/21 14:00 General appearance: Present: no acute distress - EENT Eyes: Present: PERRL, EOM intact ENT: hearing intact, clear oral mucosa - Neck Neck: Present: normal ROM - Respiratory Respiratory effort: normal Respiratory: bilateral: diminished - Cardiovascular Rhythm: regular Heart Sounds: Present: S1 & S2 - Extremities Extremities: no ischemia, pulses intact, pulses symmetrical Extremity abnormal: edema - Peripheral Assessment Generalized Edema Type: Non-pitting Edema Degree: 1+ Capillary Refill: < 3 seconds Skin Temperature: Warm Peripheral Pulses: within normal limits - Abdominal General gastrointestinal: soft, non-tender, normal bowel sounds - Integumentary Integumentary: Present: warm, dry - Psychiatric Psychiatric: cooperative - Neurologic Neurologic: moves all extremities - Allied Health Allied health notes reviewed: nursing HEART Score - HEART Score Troponin: Troponin T < 0.010 ng/mL (0.00-0.029) 11/18/21 03:25 Results - Labs CBC & Chem 7: 12/04/21 04:48 12/04/21 04:48 Labs: Laboratory Last Values WBC 12.1 K/mm3 (4.5-11.0) H 12/04/21 04:48 RBC 5.58 M/mm3 (3.65-5.03) H 12/04/21 04:48 Hgb 14.3 gm/dl (10.1-14.3) 12/04/21 04:48 Hct 47.8 % (30.3-42.9) H 12/04/21 04:48 MCV 86 fl (79-97) 12/04/21 04:48 MCH 26 pg (28-32) L 12/04/21 04:48 MCHC 30 % (30-34) 12/04/21 04:48 RDW 18.4 % (13.2-15.2) H 12/04/21 04:48 Plt Count 576 K/mm3 (140-440) H 12/04/21 04:48 Lymph % (Auto) 12.3 % (13.4-35.0) L 11/19/21 07:59 [place] % (Auto) 9.6 % (0.0-7.3) H 11/19/21 07:59 Eos % (Auto) 0.7 % (0.0-4.3) 11/19/21 07:59 Baso % (Auto) 0.5 % (0.0-1.8) 11/19/21 07:59 Lymph # (Auto) 1.6 K/mm3 (1.2-5.4) 11/19/21 07:59 [place] # (Auto) 1.2 K/mm3 (0.0-0.8) H 11/19/21 07:59 Eos # (Auto) 0.1 K/mm3 (0.0-0.4) 11/19/21 07:59 Baso # (Auto) 0.1 K/mm3 (0.0-0.1) 11/19/21 07:59 Add Manual Diff Complete 11/18/21 00:19 Total Counted 100 11/18/21 00:19 Seg Neutrophils % 76.9 % (40.0-70.0) H 11/19/21 07:59 Lymphocytes % (Manual) 4.0 % (13.4-35.0) L 11/18/21 00:19 Monocytes % (Manual) 2.0 % (0.0-7.3) 11/18/21 00:19 Nucleated RBC % Not Reportable 11/18/21 00:19 Seg Neutrophils # 9.7 K/mm3 (1.8-7.7) H 11/19/21 07:59 Seg Neutrophils # Man 14.7 K/mm3 (1.8-7.7) H 11/18/21 00:19 Band Neutrophils # 0.0 K/mm3 11/18/21 00:19 Lymphocytes # (Manual) 0.6 K/mm3 (1.2-5.4) L 11/18/21 00:19 Abs React Lymphs (Man) 0.0 K/mm3 11/18/21 00:19 Monocytes # (Manual) 0.3 K/mm3 (0.0-0.8) 11/18/21 00:19 Eosinophils # (Manual) 0.0 K/mm3 (0.0-0.4) 11/18/21 00:19 Basophils # (Manual) 0.0 K/mm3 (0.0-0.1) 11/18/21 00:19 Metamyelocytes # 0.0 K/mm3 11/18/21 00:19 Myelocytes # 0.0 K/mm3 11/18/21 00:19 Promyelocytes # 0.0 K/mm3 11/18/21 00:19 Blast Cells # 0.0 K/mm3 11/18/21 00:19 WBC Morphology Not Reportable 11/18/21 00:19 Hypersegmented Neuts Not Reportable 11/18/21 00:19 Hyposegmented Neuts Not Reportable 11/18/21 00:19 Hypogranular Neuts Not Reportable 11/18/21 00:19 Smudge Cells Not Reportable 11/18/21 00:19 Toxic Granulation Not Reportable 11/18/21 00:19 Toxic Vacuolation Not Reportable 11/18/21 00:19 Dohle Bodies Not Reportable 11/18/21 00:19 Pelger-Huet Anomaly Not Reportable 11/18/21 00:19 Luis Rods Not Reportable 11/18/21 00:19 Platelet Estimate Consistent w auto 11/18/21 00:19 Clumped Platelets Not Reportable 11/18/21 00:19 Plt Clumps, EDTA Not Reportable 11/18/21 00:19 Large Platelets Not Reportable 11/18/21 00:19 Giant Platelets Not Reportable 11/18/21 00:19 Platelet Satelliting Not Reportable 11/18/21 00:19 Plt Morphology Comment Not Reportable 11/18/21 00:19 RBC Morphology Not Reportable 11/18/21 00:19 Dimorphic RBCs Not Reportable 11/18/21 00:19 Polychromasia Not Reportable 11/18/21 00:19 Hypochromasia Not Reportable 11/18/21 00:19 Poikilocytosis Not Reportable 11/18/21 00:19 Anisocytosis 1+ 11/18/21 00:19 Microcytosis Not Reportable 11/18/21 00:19 Macrocytosis Few 11/18/21 00:19 Spherocytes Not Reportable 11/18/21 00:19 Pappenheimer Bodies Not Reportable 11/18/21 00:19 Sickle Cells Not Reportable 11/18/21 00:19 Target Cells Not Reportable 11/18/21 00:19 Tear Drop Cells Not Reportable 11/18/21 00:19 Ovalocytes Not Reportable 11/18/21 00:19 Helmet Cells Not Reportable 11/18/21 00:19 [place] Bodies Not Reportable 11/18/21 00:19 [place] Rings Not Reportable 11/18/21 00:19 [place] Cells Not Reportable 11/18/21 00:19 Bite Cells Not Reportable 11/18/21 00:19 Crenated Cell Not Reportable 11/18/21 00:19 Elliptocytes Not Reportable 11/18/21 00:19 Acanthocytes (Spur) Not Reportable 11/18/21 00:19 Rouleaux Not Reportable 11/18/21 00:19 Hemoglobin C Crystals Not Reportable 11/18/21 00:19 Schistocytes Not Reportable 11/18/21 00:19 Malaria parasites Not Reportable 11/18/21 00:19 Shahriar Bodies Not Reportable 11/18/21 00:19 Hem Pathologist Commnt No 11/18/21 00:19 PT 12.9 Sec. (12.2-14.9) 11/18/21 00:19 INR 0.88 (0.87-1.13) 11/18/21 00:19 APTT 29.2 Sec. (24.2-36.6) 11/18/21 00:19 D-Dimer 464.80 ng/mlDDU (0-234) H 11/18/21 05:15 ABG pH 7.380 pH Units (7.350-7.450) 12/01/21 11:42 POC ABG pCO2 60.0 mmHg (32.0-48.0) H 11/30/21 12:04 ABG pCO2 55.8 mm Hg 12/01/21 11:42 POC ABG pO2 68.3 mmHg (83-108) L 11/30/21 12:04 ABG pO2 71.0 mm Hg (80.0-90.0) L 12/01/21 11:42 POC ABG HCO3 32.9 11/30/21 12:04 ABG HCO3 32.3 mmol/L (20.0-26.0) H 12/01/21 11:42 ABG O2 Saturation 94.5 % (95.0-99.0) L 12/01/21 11:42 ABG O2 Content 16.8 (0.0-44) 12/01/21 11:42 POC ABG Base Excess 5.5 11/30/21 12:04 ABG Base Excess 5.7 mmol/L (-2.0-3.0) H 12/01/21 11:42 ABG Hemoglobin 12.9 gm/dl (12.0-16.0) 12/01/21 11:42 ABG Oxyhemoglobin 90.9 (94-98) L 11/30/21 12:04 ABG Carboxyhemoglobin 1.5 % (0.0-5.0) 12/01/21 11:42 ABG Methemoglobin 0.5 % (0.0-1.5) 12/01/21 11:42 ABG Sodium 145.1 mmol/L (136.0-145.0) H 11/30/21 12:04 ABG Potassium 4.0 mmol/L (3.40-4.50) 11/30/21 12:04 ABG Chloride 102.0 mmol/L (98-107) 11/30/21 12:04 ABG Glucose 122 mg/dL (65-95) H 11/30/21 12:04 Oxyhemoglobin 92.6 % (95.0-99.0) L 12/01/21 11:42 Carboxyhemoglobin 1.2 (0.5-1.5) 11/30/21 12:04 FiO2 40 % 12/01/21 11:42 FiO2 % 40 11/30/21 12:04 Sodium 141 mmol/L (137-145) 12/04/21 04:48 Potassium 4.7 mmol/L (3.6-5.0) 12/04/21 04:48 Chloride 102.9 mmol/L (98-107) 12/04/21 04:48 Carbon Dioxide 28 mmol/L (22-30) 12/04/21 04:48 Anion Gap 15 mmol/L 12/04/21 04:48 BUN 19 mg/dL (7-17) H 12/04/21 04:48 Creatinine 0.5 mg/dL (0.6-1.2) L 12/04/21 04:48 Estimated GFR > 60 ml/min 12/04/21 04:48 BUN/Creatinine Ratio 38 % 12/04/21 04:48 Glucose 123 mg/dL (65-100) H 12/04/21 04:48 POC Glucose 121 mg/dL (70-105) H 12/04/21 11:54 Hemoglobin A1c 5.9 % (4-6) 11/19/21 07:59 Lactic Acid 1.40 mmol/L (0.7-2.0) 11/18/21 00:19 Calcium 9.9 mg/dL (8.4-10.2) 12/04/21 04:48 Phosphorus 3.80 mg/dL (2.5-4.5) 12/04/21 04:48 Magnesium 2.00 mg/dL (1.7-2.3) 12/04/21 04:48 Total Bilirubin 0.40 mg/dL (0.1-1.2) 11/18/21 00:19 Direct Bilirubin < 0.2 mg/dL (0-0.2) 11/18/21 00:19 Indirect Bilirubin 0.2 mg/dL 11/18/21 00:19 AST 22 units/L (5-40) 11/18/21 00:19 ALT 25 units/L (7-56) 11/18/21 00:19 Alkaline Phosphatase 99 units/L (35-129) 11/18/21 00:19 Ammonia 54.0 umol/L (25-60) 11/18/21 00:19 Lactate Dehydrogenase 275 units/L (91-180) H 11/18/21 05:15 Troponin T < 0.010 ng/mL (0.00-0.029) 11/18/21 03:25 C-Reactive Protein 0.70 mg/dL (0.00-1.30) 11/18/21 15:47 NT-Pro-B Natriuret Pep 867.7 pg/mL (0-900) 11/18/21 00:19 Total Protein 7.4 g/dL (6.3-8.2) 11/18/21 00:19 Albumin 4.0 g/dL (3.9-5) 11/18/21 00:19 Albumin/Globulin Ratio 1.2 % 11/18/21 00:19 Triglycerides 185 mg/dL (2-149) H 11/22/21 04:39 Lipase 13 units/L (13-60) 11/18/21 00:19 Procalcitonin 0.12 ng/mL (<0.15) 11/18/21 05:15 Arterial Blood Glucose 122 mg/dL (65-95) H 11/30/21 12:04 Arterial Blood Ionized Calcium 5.2 mg/dL (4.6-5.3) 11/29/21 03:51 Urine Color Yellow (Yellow) 11/23/21 12:24 Urine Turbidity Clear (Clear) 11/23/21 12:24 Urine pH 7.0 (5.0-7.0) 11/23/21 12:24 Ur Specific [place] 1.018 (1.003-1.030) 11/23/21 12:24 Urine Protein <15 mg/dl mg/dL (Negative) 11/23/21 12:24 Urine Glucose (UA) Neg mg/dL (Negative) 11/23/21 12:24 Urine Ketones Neg mg/dL (Negative) 11/23/21 12:24 Urine Blood Neg (Negative) 11/23/21 12:24 Urine Nitrite Neg (Negative) 11/23/21 12:24 Urine Bilirubin Neg (Negative) 11/23/21 12:24 Urine Urobilinogen 4.0 mg/dL (<2.0) 11/23/21 12:24 Ur Leukocyte Esterase Neg (Negative) 11/23/21 12:24 Urine WBC (Auto) 1.0 /HPF (0.0-6.0) 11/23/21 12:24 Urine RBC (Auto) 1.0 /HPF (0.0-6.0) 11/23/21 12:24 U Epithel Cells (Auto) 1.0 /HPF (0-13.0) 11/18/21 01:03 Hyaline Casts 3 /LPF 11/18/21 01:03 Urine Mucus Few /HPF 11/18/21 01:03 Salicylates < 0.3 mg/dL (2.8-20.0) L 11/18/21 00:19 Urine Opiates Screen Negative 11/18/21 01:03 Urine Methadone Screen Negative 11/18/21 01:03 Acetaminophen 5.0 ug/mL (10.0-30.0) L 11/18/21 00:19 Ur Barbiturates Screen Negative 11/18/21 01:03 Ur Phencyclidine Scrn Negative 11/18/21 01:03 Ur Amphetamines Screen Negative 11/18/21 01:03 U Benzodiazepines Scrn Negative 11/18/21 01:03 Urine Cocaine Screen Negative 11/18/21 01:03 U Marijuana (THC) Screen Negative 11/18/21 01:03 Drugs of Abuse Note Disclamer 11/18/21 01:03 Plasma/Serum Alcohol < 0.01 % (0-0.07) 11/18/21 00:19 Coronavirus (PCR) Negative (Negative) 11/18/21 Unknown Briggs/IV: Voiding Method Indwelling Catheter Active Medications - Current Medications Current Medications: Generic Name Dose Route Start Last Admin Trade Name Freq PRN Reason Stop Dose Admin Acetaminophen 650 mg 11/18/21 03:10 11/22/21 19:49 Acetaminophen 650 Mg Rect Supp SD 650 mg Q6H PRN Administration Pain MILD(1-3)/Fever >100.5/MONTIEL Acetaminophen 650 mg 11/23/21 00:56 11/28/21 05:37 Acetaminophen 325 Mg/10.15 Ml Oral Liqd Unit Dose FEEDTUBE 650 mg Q6H PRN Administration Non Cardiac Pain or Temp>100.5 Albuterol 2.5 mg 12/03/21 12:16 Albuterol 2.5 Mg/3 Ml Nebu IH Q4HRT PRN Shortness Of Breath Amlodipine Besylate 10 mg 11/27/21 10:00 12/04/21 10:45 Amlodipine 10 Mg Tab PO 10 mg DAILY PAULINA Administration Lipase/Protease/Amylase 1 each 11/29/21 15:50 Lipase 10,500/Protease 25,000/Amylase 43,750 (Units) Dr Cross FEEDTUBE PRN PRN For Clogged Feeding Tube Arformoterol Tartrate 15 mcg 11/18/21 20:00 12/04/21 09:28 Arformoterol 15 Mcg/2 Ml Nebu IH 15 mcg Q12HRT PAULINA Administration Aspirin 81 mg 11/27/21 10:00 12/04/21 10:45 Aspirin Ec 81 Mg Tab PO 81 mg QDAY PAULINA Administration Budesonide 0.5 mg 11/18/21 20:00 12/04/21 09:28 Budesonide 0.5 Mg/2 Ml Nebu IH 0.5 mg Q12HRT PAULINA Administration Carvedilol 12.5 mg 11/25/21 13:00 12/04/21 10:45 Carvedilol 12.5 Mg Tab FEEDTUBE 12.5 mg BID PAULINA Administration Dextrose 50 ml 11/18/21 10:40 Dextrose 50% In Water (25gm) 50 Ml Syringe IV Q30MIN PRN Hypoglycemia Protocol Enoxaparin Sodium 40 mg 11/19/21 22:00 12/03/21 22:31 Enoxaparin 40 Mg/0.4 Ml Inj SUB-Q 40 mg QDAY@2200 PAULINA Administration Protocol Famotidine 20 mg 11/20/21 10:00 12/04/21 10:45 Famotidine 20 Mg Tab FEEDTUBE 20 mg BID PAULINA Administration Gabapentin 800 mg 12/01/21 12:00 12/04/21 10:44 Gabapentin 400 Mg Cap PO 800 mg BID PAULINA Administration Haloperidol Lactate 5 mg 11/26/21 15:00 12/02/21 22:57 Haloperidol Lactate 5 Mg/1 Ml Inj IV 5 mg Q8HR PRN Administration Agitation Hydralazine HCl 10 mg 11/18/21 10:44 12/03/21 22:30 Hydralazine 20 Mg/1 Ml Inj IV 10 mg Q4HR PRN Administration Hypertension Hydrophilic Ointment 1 applic 11/18/21 15:26 Lip Therapy Vaseline TP Q2HR PRN Dry Lips Insulin Human Lispro 0 unit 11/18/21 12:00 12/04/21 00:00 Insulin Lispro 100 Unit/Ml SUB-Q Not Given Q6HR [facility] Protocol Magnesium Hydroxide 30 ml 11/18/21 03:10 Magnesium Hydroxide (Mom) Oral Liqd Udc PO Q4H PRN Constipation Multi-Ingred Cream/Lotion/Oil/Oint 1 applic 11/18/21 15:26 Mineral Oil/Petrolatum, White Ophth Oint 3.5 Gm OU Q4HR PRN Dry Eye(s) Ondansetron HCl 4 mg 11/18/21 03:10 Ondansetron 4 Mg/2 Ml Inj IV Q8H PRN Nausea And Vomiting Oxycodone HCl 5 mg 11/27/21 09:50 Oxycodone 5 Mg Tab PO Q6H PRN Pain, Moderate (4-6) Scopolamine 1 each 11/30/21 15:00 12/03/21 09:50 Scopolamine Transdermal Patch 72 Hr TD 1 each Q3D PAULINA Administration Senna/Docusate Sodium 1 tab 11/18/21 22:00 12/04/21 10:44 Sennosides/Docusate Sodium 8.6/50 Mg Tab FEEDTUBE 1 tab BID PAULINA Administration Simple Syrup 15 ml 11/29/21 15:50 Simple Syrup 15 Ml FEEDTUBE PRN PRN Hypoglycemia Simple Syrup 30 ml 11/29/21 15:50 Simple Syrup 15 Ml FEEDTUBE PRN PRN Hypoglycemia Sodium Bicarbonate 325 mg 11/29/21 15:50 Sodium Bicarbonate 325 Mg Tab FEEDTUBE PRN PRN For Clogged Feeding Tube Nutrition/Malnutrition Assess - Dietary Evaluation Nutrition/Malnutrition Findings: Nutrition Notes Start: 11/18/21 10:45 Freq: Status: Active Protocol: Document 12/03/21 14:28 ROSE (Rec: 12/03/21 14:37 [facility] [id number] Nutrition Notes Initial or Follow up Reassessment Current Diagnosis Coronary Artery Disease, Hypertension,Heart Failure, Respiratory Failure Other Pertinent Diagnosis Bilat pneu, UTI, COPD exacerbation Current Diet TF - Promote at 65ml/hr Labs/Tests Reviewed Pertinent Medications Reviewed Height 5 ft 8 in Weight 81.6 kg [place] Body Weight (kg) 63.63 BMI 27.3 Weight Status Overweight Subjective/Other Information Pt extubated on 12/01. Per RN, swallow evaluation scheduled for today. Pt tolerating TF at goal rate. Percent of energy/protein needs met: 97% energy 99% pro Burn Absent Trauma Absent #1 Nutrition Diagnosis Inadequate oral intake Diagnosis Progress(for reassessment Continues documentation) Is patient on ventilator? No Is Patient Ambulatory and/or Out of Bed No REE-([facility]-confined to bed) 1614.000 Calculation Used for Recommendations [facility] Additional Notes Pro needs 1.2-2g/k-163g/ day Fluid needs 1ml/kcal Nutrition Intervention Nutrition Support: Continue Promote at 65ml/hr with 50ml water flush q4h. Kcal 1,560 Protein (gm) 98 Carbohydrates (gm) 203 Fat (gm) 41 Fluid (mL) 1,309 Fiber (gm) 0 Goal #1 TF tolerance Goal #2 TF to meet at least 75% energy and pro needs Follow-Up By: 12/08/21 Additional Comments F/U: diet advancement vs continued TF, wt
[2021-12-04] MEDS: INSULIN LISPRO 100 UNIT/ML SUB-Q SCH ×3 (17:30→22:20)
[2021-12-04] MEDS: tiZANidine TAB 4 MG TAB PO SCH (22:07)
[2021-12-04] MEDS: ENOXAPARIN 40 MG/0.4 ML INJ SUB-Q SCH (22:12)
[2021-12-05] MEDS: ARFORMOTEROL 15 MCG/2 ML NEBU IH SCH ×3 (07:19→21:08)
[2021-12-05] MEDS: BUDESONIDE 0.5 MG/2 ML NEBU IH SCH ×3 (07:19→21:08)
[2021-12-05] MEDS: INSULIN LISPRO 100 UNIT/ML SUB-Q SCH ×3 (08:03→16:19)
[2021-12-05 08:51] LABS: Mean Corpuscular HGB Conc 30 % (30-34); Mean Corpuscular Volume 86 fl (79-97); Platelet Count 611 K/mm3 (140-440); Red Blood Count 5.94 M/mm3 (3.65-5.03); Red Cell Distribution Width 18.3 % (13.2-15.2)
[2021-12-05 09:02] LABS: Hematocrit 50.9 % (30.3-42.9); Hemoglobin 15.3 gm/dl (10.1-14.3)
[2021-12-05 09:18] LABS: Blood Urea Nitrogen 19 mg/dL (7-17); Calcium 10.1 mg/dL (8.4-10.2); Hemolysis Index 40
[2021-12-05 09:19] LABS: BUN/Creatinine Ratio 38
--- NOTE | 2021-12-05 09:56 | Progress Note ---
Assessment and Plan Assessment and plan: This is a 81-year-old AA female with past medical history of CAD, CHF, pulmonary hypertension, COPD, and tobacco abuse admitted for acute hypoxemic respiratory failure 2/2 of bilateral pneumonia vs COPD exacerbation/pulmonary edema required intubation and ventilatory support. Acute Hypoxemic Respiratory Failure - Patient intubated in the ED on 11/18, extubated on 11/27 - Patient was reintubated on 11/27 due to stridor - 12/01 extubated - Stable on 4L NC this am, SPO2 above 92% - Wean O2 supplementation as tolerated Sepsis. Present on admission etiology secondary to pneumonia and UTI - Imagings shown bilateral opacities representing pulmonary edema vs pneumonia - WBCs as high as 15.6, now wnr - CRP and procal is normal - COVID swab neg - Urinalysis was significant for UTI. - B. cultures negative - Sputum culture +parisa Albicans - Patient completed IV antibiotic course COPD Exacerbation Bilateral Pneumonia - Chest x-ray shows bilateral pulmonary opacities possibly representing edema/atelectasis or pneumonia. - CT of the chest shows evidence of pulmonary hypertension with dense consolidation along the left lower lobe that is concerning for pneumonia. Mild interstitial pulmonary edema. Acute diastolic heart failure - 12/2020 Echo with a EF of 60- 65% - IV Lasix D/naren - Strict intake and output - Monitor and replace electrolytes as needed Hypertension - Patient SBP as in the 240s in the ED - S/p cardene gtt - PRN hydralazine for SBP greater than 160 H/o CAD H/o GERD - Passed bedside swallow, will start soft diet - Speech on consult - Continue PPI- Pepcid Urinary Retention - Briggs reinserted twice due to urinary retention - LAsix D/naren Hyperkalemia-improved - Trend BMP - Avoid nephrotoxic medications; Renally dose medications Agitation-improved - Mentation much better this am, Awake and Alert - Seroquel and Buspar D/C - PRN Haldol for agitation - Close monitoring of QTc - Avoid benzodiazepine to reduce the possibility of delirium - PRN analgesia for CPOT greater than 3 - Maintenance of sleep-wake cycle Elevated D-Dimer - BLE DVT negative - Lovenox added for DVT proph. - SCDs to bilateral lower extremities while in bed Urinary tract Infection Hospital Course to Date: 11/18: Patient was seen and examined in the ED. Patient is intubated and sedated on propofol and versed gtt, RASS -3 to -4. Patient is in hypertensive emergency this am, SBP in the 240s, cardene gtt was initiated, maintain SBP less than 160. Leukocytosis noted, UA significant for UTI. Lactic, procal, and CRP are normal. Patient remains afebrile, continue empiric IV abx for now. Tracheal aspirate ordered, blood culture is pending. Continue to f/u on culture data. 11/19: Patient remains intubated and sedated. Patient did not tolerate sedation vacation this am, became tachycardic, hypertensive, with elevated RR and SPO2 in the low 80s. Sedation back on, continue to wean sedation as tolerated for RASS goal of 0 to -2. Pateimt is off cardene gtt, PRN hydralazine for SPO2 above 160. Low K repleted, repeat labs in the am. 11/20: Remains on the vent and sedated, RASS -3. Plan to wean down on sedation, might need to add Seroquel if patient is not tolerating sedation. Hypernatremia and increased BUN/Cr. this am, patient is on lasix BID. Will discuss with [facility] to possibly hold or decreased IV lasix for now, FWF added for high Na. Urinary retention post briggs removal, bladder scan and straight cath per protocol. 11/21: Patient remains on the vent, unable to wean sedation at this time, Seroquel added. Titrate sedation as tolerated for RASS of 0 to -2. Briggs was reinserted overnight for urinary retention, kidney function is stable. 11/22: [facility] reduced FiO2. We will start weaning tomorrow. No acute events reported overnight. 11/23: Patient spiked a fever overnight and was cultured this morning. Attempted CPAP trial again today. An ABG obtained post trial which has been given to CCM. Slight hypernatremia noted. 11/24: I updated patient's son today, Kwame Salamanca at [phone]. Lasix stopped today. Patient placed on CPAP trial. She lasted on CPAP all day yesterday and was rested overnight on assist control. Given Kayexalate today due to h yperkalemia. 11/25: Patient was on SBT today and was not arousable for a while and a CT head was obtained which showed no acute intracranial abnormality. Patient later became severely agitated and was switched back to assist control and placed back on sedation. Family updated today. Restarted home Coreg due to hypotension. 11/26: SBT today, Haldol as needed. Briggs was removed yesterday bladder scan x2 with urine output. Slight hypernatremia persists. Blood pressure better controlled. 11/27/2021: Patient was extubated by [facility] this morning. Patient was severely agitated and given 2 mg Ativan, SBP 200s and given labatalol x1 10mg, NJ tube placed and given PO BP medications. She had stridor and was given racemic epi. We wanted to place BiPAP but after consolation with Dr. Gallegos it was decided to intubate the patient. She was intubated by Deidra, RT and given etomidate, versed and fentanyl. CXR in process. On fentanyl and precedex gtt. 11/28: added buspar to help with agitation, restarted serqoul at lower dose. weaned fi02 today. 11/29: Remains on the vent and on sedation, fent and precedx gtts. D/w [facility] plan for possible SAT and SBT in the am, hold TF at 6am on 11/30 for possible SAT/SBT. 11/30: Patient mentation slightly better this am, still on predex and fentanyl gtt. However, easily arousable, following simple commands. Tolerated SBT trial for about 2hrs today then patient was placed back on a rate due to increased work of breathing and increased agitation. D/w [facility] seroquel increased to BID, plan to try SAT/SBT again the am. 12/01: CONY overnight. Patient mentation continue to improve. Tolerating SBT this am, possible extubation today if ABG is wnr. 12/02: Extubated yesterday, on 4L NC this SPO2 at 100%. Patient is awake following simple commands this am, however, she is confused. Spoke to patient's son, Kwame Salamanca. He was updated on patient's status. He reported that patient was very self sufficient prior to admit, with no neurological nor any psych issues that he knows of. All questions and concerns were voiced at this time. Will continue to monitor for now. D/w [facility] patient is stable for transfer to [facility] 12/03: Slight improvement in mentation this am, however still drowsy and disorientated. Will hold seroquel and Buspar for now. Patient is on ventimask this am, plan to wean O2 supplementation for SPO2 goal above 90%. Transfer order placed for IMCU 12/04: Mentation much better this am, remains on 4L NC. Hypertensive overnight, however per RN patient was NPO since NGT was accidently pulled out overnight. Patient passed bedside swallow this am. Will start patient on a soft diet. D/w CCM patient is stable for transfer to Telemetry. 12/05: Patient still requiring 4 L O2 via nasal cannula. Continue BiPAP at bedtime. Patient reports that she is on home O2 of 3 L. Continue duo nebs, LABA and inhaled corticosteroids. Brovana and Pulmicort. Continue gabapentin for Neurontin. PT evaluation History Interval history: No new issues overnight. Hospitalist Physical - Constitutional Vitals: Temp Pulse Resp BP Pulse Ox 98.1 F 82 18 109/65 94 12/04/21 22:59 12/05/21 05:00 12/04/21 22:59 12/04/21 22:59 12/04/21 22:59 General appearance: Present: no acute distress - EENT Eyes: Present: PERRL, EOM intact ENT: hearing intact, clear oral mucosa, dentition normal - Neck Neck: Present: supple, normal ROM - Respiratory Respiratory effort: normal Respiratory: bilateral: CTA - Cardiovascular Rhythm: regular Heart Sounds: Present: S1 & S2. Absent: gallop, rub - Extremities Extremities: no ischemia, No edema, Full ROM - Abdominal General gastrointestinal: soft, non-tender, non-distended, normal bowel sounds - Integumentary Integumentary: Present: clear, warm, dry - Neurologic Neurologic: CNII-XII intact, moves all extremities HEART Score - HEART Score Troponin: Troponin T < 0.010 ng/mL (0.00-0.029) 11/18/21 03:25 Results - Labs CBC & Chem 7: 12/05/21 08:02 12/05/21 08:02 Labs: Laboratory Last Values WBC 11.3 K/mm3 (4.5-11.0) H 12/05/21 08:02 RBC 5.94 M/mm3 (3.65-5.03) H 12/05/21 08:02 Hgb 15.3 gm/dl (10.1-14.3) H 12/05/21 08:02 Hct 50.9 % (30.3-42.9) H 12/05/21 08:02 MCV 86 fl (79-97) 12/05/21 08:02 MCH 26 pg (28-32) L 12/05/21 08:02 MCHC 30 % (30-34) 12/05/21 08:02 RDW 18.3 % (13.2-15.2) H 12/05/21 08:02 Plt Count 611 K/mm3 (140-440) H 12/05/21 08:02 Lymph % (Auto) 12.3 % (13.4-35.0) L 11/19/21 07:59 [place] % (Auto) 9.6 % (0.0-7.3) H 11/19/21 07:59 Eos % (Auto) 0.7 % (0.0-4.3) 11/19/21 07:59 Baso % (Auto) 0.5 % (0.0-1.8) 11/19/21 07:59 Lymph # (Auto) 1.6 K/mm3 (1.2-5.4) 11/19/21 07:59 [place] # (Auto) 1.2 K/mm3 (0.0-0.8) H 11/19/21 07:59 Eos # (Auto) 0.1 K/mm3 (0.0-0.4) 11/19/21 07:59 Baso # (Auto) 0.1 K/mm3 (0.0-0.1) 11/19/21 07:59 Add Manual Diff Complete 11/18/21 00:19 Total Counted 100 11/18/21 00:19 Seg Neutrophils % 76.9 % (40.0-70.0) H 11/19/21 07:59 Lymphocytes % (Manual) 4.0 % (13.4-35.0) L 11/18/21 00:19 Monocytes % (Manual) 2.0 % (0.0-7.3) 11/18/21 00:19 Nucleated RBC % Not Reportable 11/18/21 00:19 Seg Neutrophils # 9.7 K/mm3 (1.8-7.7) H 11/19/21 07:59 Seg Neutrophils # Man 14.7 K/mm3 (1.8-7.7) H 11/18/21 00:19 Band Neutrophils # 0.0 K/mm3 11/18/21 00:19 Lymphocytes # (Manual) 0.6 K/mm3 (1.2-5.4) L 11/18/21 00:19 Abs React Lymphs (Man) 0.0 K/mm3 11/18/21 00:19 Monocytes # (Manual) 0.3 K/mm3 (0.0-0.8) 11/18/21 00:19 Eosinophils # (Manual) 0.0 K/mm3 (0.0-0.4) 11/18/21 00:19 Basophils # (Manual) 0.0 K/mm3 (0.0-0.1) 11/18/21 00:19 Metamyelocytes # 0.0 K/mm3 11/18/21 00:19 Myelocytes # 0.0 K/mm3 11/18/21 00:19 Promyelocytes # 0.0 K/mm3 11/18/21 00:19 Blast Cells # 0.0 K/mm3 11/18/21 00:19 WBC Morphology Not Reportable 11/18/21 00:19 Hypersegmented Neuts Not Reportable 11/18/21 00:19 Hyposegmented Neuts Not Reportable 11/18/21 00:19 Hypogranular Neuts Not Reportable 11/18/21 00:19 Smudge Cells Not Reportable 11/18/21 00:19 Toxic Granulation Not Reportable 11/18/21 00:19 Toxic Vacuolation Not Reportable 11/18/21 00:19 Dohle Bodies Not Reportable 11/18/21 00:19 Pelger-Huet Anomaly Not Reportable 11/18/21 00:19 Luis Rods Not Reportable 11/18/21 00:19 Platelet Estimate Consistent w auto 11/18/21 00:19 Clumped Platelets Not Reportable 11/18/21 00:19 Plt Clumps, EDTA Not Reportable 11/18/21 00:19 Large Platelets Not Reportable 11/18/21 00:19 Giant Platelets Not Reportable 11/18/21 00:19 Platelet Satelliting Not Reportable 11/18/21 00:19 Plt Morphology Comment Not Reportable 11/18/21 00:19 RBC Morphology Not Reportable 11/18/21 00:19 Dimorphic RBCs Not Reportable 11/18/21 00:19 Polychromasia Not Reportable 11/18/21 00:19 Hypochromasia Not Reportable 11/18/21 00:19 Poikilocytosis Not Reportable 11/18/21 00:19 Anisocytosis 1+ 11/18/21 00:19 Microcytosis Not Reportable 11/18/21 00:19 Macrocytosis Few 11/18/21 00:19 Spherocytes Not Reportable 11/18/21 00:19 Pappenheimer Bodies Not Reportable 11/18/21 00:19 Sickle Cells Not Reportable 11/18/21 00:19 Target Cells Not Reportable 11/18/21 00:19 Tear Drop Cells Not Reportable 11/18/21 00:19 Ovalocytes Not Reportable 11/18/21 00:19 Helmet Cells Not Reportable 11/18/21 00:19 [place] Bodies Not Reportable 11/18/21 00:19 [place] Rings Not Reportable 11/18/21 00:19 [place] Cells Not Reportable 11/18/21 00:19 Bite Cells Not Reportable 11/18/21 00:19 Crenated Cell Not Reportable 11/18/21 00:19 Elliptocytes Not Reportable 11/18/21 00:19 Acanthocytes (Spur) Not Reportable 11/18/21 00:19 Rouleaux Not Reportable 11/18/21 00:19 Hemoglobin C Crystals Not Reportable 11/18/21 00:19 Schistocytes Not Reportable 11/18/21 00:19 Malaria parasites Not Reportable 11/18/21 00:19 Shahriar Bodies Not Reportable 11/18/21 00:19 Hem Pathologist Commnt No 11/18/21 00:19 PT 12.9 Sec. (12.2-14.9) 11/18/21 00:19 INR 0.88 (0.87-1.13) 11/18/21 00:19 APTT 29.2 Sec. (24.2-36.6) 11/18/21 00:19 D-Dimer 464.80 ng/mlDDU (0-234) H 11/18/21 05:15 ABG pH 7.380 pH Units (7.350-7.450) 12/01/21 11:42 POC ABG pCO2 60.0 mmHg (32.0-48.0) H 11/30/21 12:04 ABG pCO2 55.8 mm Hg 12/01/21 11:42 POC ABG pO2 68.3 mmHg (83-108) L 11/30/21 12:04 ABG pO2 71.0 mm Hg (80.0-90.0) L 12/01/21 11:42 POC ABG HCO3 32.9 11/30/21 12:04 ABG HCO3 32.3 mmol/L (20.0-26.0) H 12/01/21 11:42 ABG O2 Saturation 94.5 % (95.0-99.0) L 12/01/21 11:42 ABG O2 Content 16.8 (0.0-44) 12/01/21 11:42 POC ABG Base Excess 5.5 11/30/21 12:04 ABG Base Excess 5.7 mmol/L (-2.0-3.0) H 12/01/21 11:42 ABG Hemoglobin 12.9 gm/dl (12.0-16.0) 12/01/21 11:42 ABG Oxyhemoglobin 90.9 (94-98) L 11/30/21 12:04 ABG Carboxyhemoglobin 1.5 % (0.0-5.0) 12/01/21 11:42 ABG Methemoglobin 0.5 % (0.0-1.5) 12/01/21 11:42 ABG Sodium 145.1 mmol/L (136.0-145.0) H 11/30/21 12:04 ABG Potassium 4.0 mmol/L (3.40-4.50) 11/30/21 12:04 ABG Chloride 102.0 mmol/L (98-107) 11/30/21 12:04 ABG Glucose 122 mg/dL (65-95) H 11/30/21 12:04 Oxyhemoglobin 92.6 % (95.0-99.0) L 12/01/21 11:42 Carboxyhemoglobin 1.2 (0.5-1.5) 11/30/21 12:04 FiO2 40 % 12/01/21 11:42 FiO2 % 40 11/30/21 12:04 Sodium 137 mmol/L (137-145) 12/05/21 08:02 Potassium 4.5 mmol/L (3.6-5.0) 12/05/21 08:02 Chloride 99.7 mmol/L (98-107) 12/05/21 08:02 Carbon Dioxide 22 mmol/L (22-30) 12/05/21 08:02 Anion Gap 20 mmol/L 12/05/21 08:02 BUN 19 mg/dL (7-17) H 12/05/21 08:02 Creatinine 0.5 mg/dL (0.6-1.2) L 12/05/21 08:02 Estimated GFR > 60 ml/min 12/05/21 08:02 BUN/Creatinine Ratio 38 % 12/05/21 08:02 Glucose 94 mg/dL (65-100) 12/05/21 08:02 POC Glucose 112 mg/dL (70-105) H 12/05/21 07:53 Hemoglobin A1c 5.9 % (4-6) 11/19/21 07:59 Lactic Acid 1.40 mmol/L (0.7-2.0) 11/18/21 00:19 Calcium 10.1 mg/dL (8.4-10.2) 12/05/21 08:02 Phosphorus 3.80 mg/dL (2.5-4.5) 12/04/21 04:48 Magnesium 2.00 mg/dL (1.7-2.3) 12/04/21 04:48 Total Bilirubin 0.40 mg/dL (0.1-1.2) 11/18/21 00:19 Direct Bilirubin < 0.2 mg/dL (0-0.2) 11/18/21 00:19 Indirect Bilirubin 0.2 mg/dL 11/18/21 00:19 AST 22 units/L (5-40) 11/18/21 00:19 ALT 25 units/L (7-56) 11/18/21 00:19 Alkaline Phosphatase 99 units/L (35-129) 11/18/21 00:19 Ammonia 54.0 umol/L (25-60) 11/18/21 00:19 Lactate Dehydrogenase 275 units/L (91-180) H 11/18/21 05:15 Troponin T < 0.010 ng/mL (0.00-0.029) 11/18/21 03:25 C-Reactive Protein 0.70 mg/dL (0.00-1.30) 11/18/21 15:47 NT-Pro-B Natriuret Pep 867.7 pg/mL (0-900) 11/18/21 00:19 Total Protein 7.4 g/dL (6.3-8.2) 11/18/21 00:19 Albumin 4.0 g/dL (3.9-5) 11/18/21 00:19 Albumin/Globulin Ratio 1.2 % 11/18/21 00:19 Triglycerides 185 mg/dL (2-149) H 11/22/21 04:39 Lipase 13 units/L (13-60) 11/18/21 00:19 Procalcitonin 0.12 ng/mL (<0.15) 11/18/21 05:15 Arterial Blood Glucose 122 mg/dL (65-95) H 11/30/21 12:04 Arterial Blood Ionized Calcium 5.2 mg/dL (4.6-5.3) 11/29/21 03:51 Urine Color Yellow (Yellow) 11/23/21 12:24 Urine Turbidity Clear (Clear) 11/23/21 12:24 Urine pH 7.0 (5.0-7.0) 11/23/21 12:24 Ur Specific [place] 1.018 (1.003-1.030) 11/23/21 12:24 Urine Protein <15 mg/dl mg/dL (Negative) 11/23/21 12:24 Urine Glucose (UA) Neg mg/dL (Negative) 11/23/21 12:24 Urine Ketones Neg mg/dL (Negative) 11/23/21 12:24 Urine Blood Neg (Negative) 11/23/21 12:24 Urine Nitrite Neg (Negative) 11/23/21 12:24 Urine Bilirubin Neg (Negative) 11/23/21 12:24 Urine Urobilinogen 4.0 mg/dL (<2.0) 11/23/21 12:24 Ur Leukocyte Esterase Neg (Negative) 11/23/21 12:24 Urine WBC (Auto) 1.0 /HPF (0.0-6.0) 11/23/21 12:24 Urine RBC (Auto) 1.0 /HPF (0.0-6.0) 11/23/21 12:24 U Epithel Cells (Auto) 1.0 /HPF (0-13.0) 11/18/21 01:03 Hyaline Casts 3 /LPF 11/18/21 01:03 Urine Mucus Few /HPF 11/18/21 01:03 Salicylates < 0.3 mg/dL (2.8-20.0) L 11/18/21 00:19 Urine Opiates Screen Negative 11/18/21 01:03 Urine Methadone Screen Negative 11/18/21 01:03 Acetaminophen 5.0 ug/mL (10.0-30.0) L 11/18/21 00:19 Ur Barbiturates Screen Negative 11/18/21 01:03 Ur Phencyclidine Scrn Negative 11/18/21 01:03 Ur Amphetamines Screen Negative 11/18/21 01:03 U Benzodiazepines Scrn Negative 11/18/21 01:03 Urine Cocaine Screen Negative 11/18/21 01:03 U Marijuana (THC) Screen Negative 11/18/21 01:03 Drugs of Abuse Note Disclamer 11/18/21 01:03 Plasma/Serum Alcohol < 0.01 % (0-0.07) 11/18/21 00:19 Coronavirus (PCR) Negative (Negative) 11/18/21 Unknown Briggs/IV: Voiding Method Indwelling Catheter Active Medications - Current Medications Current Medications: Generic Name Dose Route Start Last Admin Trade Name Freq PRN Reason Stop Dose Admin Acetaminophen 650 mg 11/18/21 03:10 11/22/21 19:49 Acetaminophen 650 Mg Rect Supp [place] 650 mg Q6H PRN Administration Pain MILD(1-3)/Fever >100.5/MONTIEL Albuterol 2.5 mg 12/03/21 12:16 Albuterol 2.5 Mg/3 Ml Nebu IH Q4HRT PRN Shortness Of Breath Amlodipine Besylate 10 mg 11/27/21 10:00 12/04/21 10:45 Amlodipine 10 Mg Tab PO 10 mg DAILY PAULINA Administration Arformoterol Tartrate 15 mcg 11/18/21 20:00 12/05/21 07:19 Arformoterol 15 Mcg/2 Ml Nebu IH Not Given Q12HRT PAULINA Aspirin 81 mg 11/27/21 10:00 12/04/21 10:45 Aspirin Ec 81 Mg Tab PO 81 mg QDAY [facility] Administration Budesonide 0.5 mg 11/18/21 20:00 12/05/21 07:19 Budesonide 0.5 Mg/2 Ml Nebu IH Not Given Q12HRT PAULINA Carvedilol 12.5 mg 11/25/21 13:00 12/04/21 22:20 Carvedilol 12.5 Mg Tab FEEDTUBE 12.5 mg BID PAULINA Administration Dextrose 50 ml 11/18/21 10:40 Dextrose 50% In Water (25gm) 50 Ml Syringe IV Q30MIN PRN Hypoglycemia Protocol Enoxaparin Sodium 40 mg 11/19/21 22:00 12/04/21 22:12 Enoxaparin 40 Mg/0.4 Ml Inj SUB-Q 40 mg QDAY@2200 [facility] Administration Protocol Famotidine 20 mg 11/20/21 10:00 12/04/21 22:08 Famotidine 20 Mg Tab FEEDTUBE 20 mg BID PAULINA Administration Gabapentin 800 mg 12/01/21 12:00 12/04/21 22:08 Gabapentin 400 Mg Cap PO 800 mg BID PAULINA Administration Hydralazine HCl 10 mg 11/18/21 10:44 12/03/21 22:30 Hydralazine 20 Mg/1 Ml Inj IV 10 mg Q4HR PRN Administration Hypertension Hydrophilic Ointment 1 applic 11/18/21 15:26 Lip Therapy Vaseline TP Q2HR PRN Dry Lips Insulin Human Lispro 0 unit 12/04/21 16:30 12/05/21 08:03 Insulin Lispro 100 Unit/Ml SUB-Q Not Given ACHS [facility] Protocol Isosorbide Mononitrate 60 mg 12/04/21 15:00 12/04/21 17:03 Isosorbide Mononitrate Er 60 Mg Tab PO Not Given QDAY [facility] Losartan Potassium 100 mg 12/05/21 10:00 Losartan 50 Mg Tab PO QDAY [facility] Magnesium Hydroxide 30 ml 11/18/21 03:10 Magnesium Hydroxide (Mom) Oral Liqd Udc PO Q4H PRN Constipation Ondansetron HCl 4 mg 11/18/21 03:10 Ondansetron 4 Mg/2 Ml Inj IV Q8H PRN Nausea And Vomiting Oxycodone HCl 5 mg 11/27/21 09:50 Oxycodone 5 Mg Tab PO Q6H PRN Pain, Moderate (4-6) Senna/Docusate Sodium 1 tab 11/18/21 22:00 12/04/21 22:08 Sennosides/Docusate Sodium 8.6/50 Mg Tab FEEDTUBE 1 tab BID PAULINA Administration Tizanidine HCl 2 mg 12/04/21 22:00 12/04/21 22:07 Tizanidine Tab 4 Mg Tab PO 2 mg QHS PAULINA Administration Nutrition/Malnutrition Assess - Dietary Evaluation Nutrition/Malnutrition Findings: Nutrition Notes Start: 11/18/21 1 0:45 Freq: Status: Active Protocol: Document 12/03/21 14:28 [facility] (Rec: 12/03/21 14:37 [facility] [id number]) Nutrition Notes Initial or Follow up Reassessment Current Diagnosis Coronary Artery Disease, Hypertension,Heart Failure, Respiratory Failure Other Pertinent Diagnosis Bilat pneu, UTI, COPD exacerbation Current Diet TF - Promote at 65ml/hr Labs/Tests Reviewed Pertinent Medications Reviewed Height 5 ft 8 in Weight 81.6 kg [place] Body Weight (kg) 63.63 BMI 27.3 Weight Status Overweight Subjective/Other Information Pt extubated on 12/01. Per RN, swallow evaluation scheduled for today. Pt tolerating TF at goal rate. Percent of energy/protein needs met: 97% energy 99% pro Burn Absent Trauma Absent #1 Nutrition Diagnosis Inadequate oral intake Diagnosis Progress(for reassessment Continues documentation) Is patient on ventilator? No Is Patient Ambulatory and/or Out of Bed No REE-([facility]-confined to bed) 1614.000 Calculation Used for Recommendations [facility] Additional Notes Pro needs 1.2-2g/k-163g/ day Fluid needs 1ml/kcal Nutrition Intervention Nutrition Support: Continue Promote at 65ml/hr with 50ml water flush q4h. Kcal 1,560 Protein (gm) 98 Carbohydrates (gm) 203 Fat (gm) 41 Fluid (mL) 1,309 Fiber (gm) 0 Goal #1 TF tolerance Goal #2 TF to meet at least 75% energy and pro needs Follow-Up By: 12/08/21 Additional Comments F/U: diet advancement vs continued TF, wt
[2021-12-05] MEDS: LOSARTAN 50 MG TAB PO SCH (09:58)
[2021-12-05] MEDS: SENNOSIDES/DOCUSATE SODIUM 8.6/50 MG TAB FEEDTUBE SCH ×2 (09:58→23:09)
[2021-12-05] MEDS: carvediloL 12.5 MG TAB FEEDTUBE SCH ×2 (09:58→22:50)
[2021-12-05] MEDS: FAMOTIDINE 20 MG TAB FEEDTUBE SCH ×2 (09:58→23:08)
[2021-12-05] MEDS: ASPIRIN EC 81 MG TAB PO SCH (09:58)
[2021-12-05] MEDS: amLODIPine 10 MG TAB PO SCH (09:58)
[2021-12-05] MEDS: GABAPENTIN 400 MG CAP PO SCH ×2 (09:58→23:08)
--- NOTE | 2021-12-05 12:57 | Progress Note ---
Assessment and Plan Acute exacerbation of chronic obstructive lung disease Acute hypoxemic respiratory failure Acute congestive heart failure exacerbation (? Flash Pulmonary edema) Community-acquired pneumonia Leukocytosis History of coronary artery disease Gastroesophageal reflux disease Arthritis Hyperlipidemia Obesity Elevated D-dimers Acute toxic metabolic encephalopathy Urinary tract infection Likely pulmonary hypertension Hypertensive emergency - advance diet per HOUSEKEEPING AIDE recommendations - continue BIPAP scheduled qhs - continue care as below otherwise; - wean supplemental oxygen for target O2 sat's > 90% acutely - continue aspiration precautions - bronchodilators (LIZZY & LABA) with pulmonary hygiene per RT - continue Pulmicort re: COPD - avoid nephrotoxins, renally dose all medications - continue accuchecks with glycemic control per SSI for target blood glucose of < 180 mg/dL; avoid hypoglycemia - continue to avoid benzodiazepine's, reduce the possibility of delirium - completed AB's course - prn analgesia per pain score - Maintenance of sleep-wake cycle, avoid delirium - continue enteral nutritional support at goal rate as tolerated - G.I. & VTE prophylaxis - PT/OT/ROM exercises - continue mobility protocols for pressure ulcer prophylaxis - Monitor hemodynamics closely - continue other care per attending / other consultants - discharge planning ongoing concurrently COVID SPECIFIC INTERVENTIONS: - COVID-19 test negative .... Re-evaluate in am & prn Subjective Date of service: 12/05/21 Principal diagnosis: AE-COPD; AHRF; CHF (? new onset); CAP; CAD; Obesity; HTNsive Emergency Interval history: Patient is seen today for: AE-COPD; Acute hypoxemic respiratory failure; CHF (? new onset); CAP; CAD; Obesity; HTNsive Emergency Seen and examined at bedside; 24hour events reviewed; nursing and respiratory care staff consulted; no adverse overnight events reported to me; resting peacefully in bed; denies acute chest pain or SOB; remains on supplemental oxygen Objective Vital Signs - 12hr 12/05/21 12/05/21 12/05/21 05:00 08:20 10:00 Temperature 98.3 F Pulse Rate 82 71 Respiratory 20 Rate Blood Pressure 179/85 O2 Sat by Pulse 94 97 Oximetry Constitutional: no acute distress, other (elderly obese female with mildly increased respiratory effort at rest ) Eyes: non-icteric ENT: oropharynx moist Neck: supple, no lymphadenopathy, no JVD, other (large circumference) Effort: mildly labored Ascultation: Bilateral: diminished breath sounds, rhonchi (scant bases) Percussion: Bilateral: not dull Cardiovascular: regular rate and rhythm Gastrointestinal: normoactive bowel sounds, soft, non-tender, non-distended (protuberant) Integumentary: normal Extremities: no cyanosis, no edema, pulses normal, no ischemia or petechiae Neurologic: non-focal exam (grossly), pupils equal and round, CN II-XII normal Psychiatric: mood appropriate, affect normal, other (mild delirium) CBC and BMP: 12/09/21 06:23 12/09/21 06:23 ABG, PT/INR, D-dimer: ABG ABG pH 7.380 pH Units (7.350-7.450) 12/01/21 11:42 POC ABG pCO2 60.0 mmHg (32.0-48.0) H 11/30/21 12:04 ABG pCO2 55.8 mm Hg 12/01/21 11:42 POC ABG pO2 68.3 mmHg (83-108) L 11/30/21 12:04 ABG pO2 71.0 mm Hg (80.0-90.0) L 12/01/21 11:42 POC ABG HCO3 32.9 11/30/21 12:04 ABG O2 Saturation 94.5 % (95.0-99.0) L 12/01/21 11:42 PT/INR, D-dimer PT 12.9 Sec. (12.2-14.9) 11/18/21 00:19 INR 0.88 (0.87-1.13) 11/18/21 00:19 D-Dimer 464.80 ng/mlDDU (0-234) H 11/18/21 05:15 Abnormal lab findings: Abnormal Labs 11/18/21 11/18/21 11/18/21 00:01 00:19 00:19 WBC 15.6 H RBC 5.59 H Hgb 14.8 H Hct 49.8 H MCH 27 L MCHC RDW 16.9 H Plt Count Lymph % (Auto) Bennett % (Auto) Lymph # (Auto) Bennett # (Auto) Seg Neutrophils % Lymphocytes % (Manual) 4.0 L Seg Neutrophils # Seg Neutrophils # Man 14.7 H Lymphocytes # (Manual) 0.6 L D-Dimer ABG pH POC ABG pCO2 POC ABG pO2 ABG pO2 ABG HCO3 ABG O2 Saturation ABG Base Excess ABG Hemoglobin ABG Oxyhemoglobin ABG Sodium ABG Glucose Oxyhemoglobin Carboxyhemoglobin Sodium Potassium Carbon Dioxide BUN Creatinine Glucose 148 H POC Glucose 151 H Calcium Phosphorus Magnesium Lactate Dehydrogenase Triglycerides Arterial Blood Glucose Arterial Blood Ionized Calcium Urine WBC (Auto) Salicylates Acetaminophen 11/18/21 11/18/21 11/18/21 00:19 00:19 00:19 WBC RBC Hgb Hct MCH MCHC RDW Plt Count Lymph % (Auto) Bennett % (Auto) Lymph # (Auto) Bennett # (Auto) Seg Neutrophils % Lymphocytes % (Manual) Seg Neutrophils # Seg Neutrophils # Man Lymphocytes # (Manual) D-Dimer ABG pH POC ABG pCO2 POC ABG pO2 ABG pO2 ABG HCO3 ABG O2 Saturation ABG Base Excess ABG Hemoglobin ABG Oxyhemoglobin ABG Sodium ABG Glucose Oxyhemoglobin Carboxyhemoglobin Sodium Potassium Carbon Dioxide BUN Creatinine Glucose POC Glucose Calcium Phosphorus Magnesium 2.50 H Lactate Dehydrogenase Triglycerides Arterial Blood Glucose Arterial Blood Ionized Calcium Urine WBC (Auto) Salicylates < 0.3 L Acetaminophen 5.0 L 11/18/21 11/18/21 11/18/21 01:03 02:00 05:15 WBC RBC Hgb Hct MCH MCHC RDW Plt Count Lymph % (Auto) Bennett % (Auto) Lymph # (Auto) Bennett # (Auto) Seg Neutrophils % Lymphocytes % (Manual) Seg Neutrophils # Seg Neutrophils # Man Lymphocytes # (Manual) D-Dimer 464.80 H ABG pH POC ABG pCO2 POC ABG pO2 ABG pO2 ABG HCO3 35.8 H ABG O2 Saturation ABG Base Excess 7.8 H ABG Hemoglobin ABG Oxyhemoglobin ABG Sodium ABG Glucose Oxyhemoglobin 91.9 L Carboxyhemoglobin Sodium Potassium Carbon Dioxide BUN Creatinine Glucose POC Glucose Calcium Phosphorus Magnesium Lactate Dehydrogenase Triglycerides Arterial Blood Glucose Arterial Blood Ionized Calcium Urine WBC (Auto) 16.0 H Salicylates Acetaminophen 11/18/21 11/18/21 11/18/21 05:15 15:47 15:47 WBC 13.5 H RBC 5.60 H Hgb 14.9 H Hct 49.1 H MCH 27 L MCHC RDW 17.3 H Plt Count Lymph % (Auto) 7.9 L Bennett % (Auto) 10.1 H Lymph # (Auto) 1.1 L Bennett # (Auto) 1.4 H Seg Neutrophils % 81.7 H Lymphocytes % (Manual) Seg Neutrophils # 11.0 H Seg Neutrophils # Man Lymphocytes # (Manual) D-Dimer ABG pH POC ABG pCO2 POC ABG pO2 ABG pO2 ABG HCO3 ABG O2 Saturation ABG Base Excess ABG Hemoglobin ABG Oxyhemoglobin ABG Sodium ABG Glucose Oxyhemoglobin Carboxyhemoglobin Sodium Potassium Carbon Dioxide BUN Creatinine Glucose 138 H POC Glucose Calcium Phosphorus Magnesium Lactate Dehydrogenase 275 H Triglycerides Arterial Blood Glucose Arterial Blood Ionized Calcium Urine WBC (Auto) Salicylates Acetaminophen 11/18/21 11/18/21 11/19/21 18:45 23:33 04:58 WBC RBC Hgb Hct MCH MCHC RDW Plt Count Lymph % (Auto) Bennett % (Auto) Lymph # (Auto) Bennett # (Auto) Seg Neutrophils % Lymphocytes % (Manual) Seg Neutrophils # Seg Neutrophils # Man Lymphocytes # (Manual) D-Dimer ABG pH POC ABG pCO2 POC ABG pO2 ABG pO2 ABG HCO3 ABG O2 Saturation ABG Base Excess ABG Hemoglobin ABG Oxyhemoglobin ABG Sodium ABG Glucose Oxyhemoglobin Carboxyhemoglobin Sodium Potassium Carbon Dioxide BUN Creatinine Glucose 130 H POC Glucose 132 H 113 H Calcium Phosphorus Magnesium Lactate Dehydrogenase Triglycerides Arterial Blood Glucose Arterial Blood Ionized Calcium Urine WBC (Auto) Salicylates Acetaminophen 11/19/21 11/19/21 11/19/21 07:59 07:59 08:55 WBC 12.7 H RBC 5.29 H Hgb Hct 45.5 H MCH 26 L MCHC RDW 17.4 H Plt Count Lymph % (Auto) 12.3 L Bennett % (Auto) 9.6 H Lymph # (Auto) Bennett # (Auto) 1.2 H Seg Neutrophils % 76.9 H Lymphocytes % (Manual) Seg Neutrophils # 9.7 H Seg Neutrophils # Man Lymphocytes # (Manual) D-Dimer ABG pH 7.518 H POC ABG pCO2 POC ABG pO2 ABG pO2 77.6 L ABG HCO3 30.1 H ABG O2 Saturation ABG Base Excess 6.9 H ABG Hemoglobin ABG Oxyhemoglobin ABG Sodium ABG Glucose Oxyhemoglobin Carboxyhemoglobin Sodium Potassium 3.1 L D Carbon Dioxide BUN Creatinine Glucose 115 H POC Glucose Calcium 8.1 L Phosphorus Magnesium Lactate Dehydrogenase Triglycerides Arterial Blood Glucose Arterial Blood Ionized Calcium Urine WBC (Auto) Salicylates Acetaminophen 11/19/21 11/19/21 11/20/21 11:33 16:22 04:20 WBC 13.9 H RBC 5.44 H Hgb Hct 49.3 H MCH 26 L MCHC 29 L RDW 18.3 H Plt Count Lymph % (Auto) Bennett % (Auto) Lymph # (Auto) Bennett # (Auto) Seg Neutrophils % Lymphocytes % (Manual) Seg Neutrophils # Seg Neutrophils # Man Lymphocytes # (Manual) D-Dimer ABG pH POC ABG pCO2 POC ABG pO2 ABG pO2 ABG HCO3 ABG O2 Saturation ABG Base Excess ABG Hemoglobin ABG Oxyhemoglobin ABG Sodium ABG Glucose Oxyhemoglobin Carboxyhemoglobin Sodium Potassium Carbon Dioxide BUN Creatinine Glucose POC Glucose 119 H 112 H Calcium Phosphorus Magnesium Lactate Dehydrogenase Triglycerides Arterial Blood Glucose Arterial Blood Ionized Calcium Urine WBC (Auto) Salicylates Acetaminophen 11/20/21 11/20/21 11/20/21 04:20 11:07 12:02 WBC RBC Hgb Hct MCH MCHC RDW Plt Count Lymph % (Auto) Bennett % (Auto) Lymph # (Auto) Bennett # (Auto) Seg Neutrophils % Lymphocytes % (Manual) Seg Neutrophils # Seg Neutrophils # Man Lymphocytes # (Manual) D-Dimer ABG pH 7.251 L POC ABG pCO2 POC ABG pO2 ABG pO2 66.3 L ABG HCO3 30.2 H ABG O2 Saturation 91.8 L ABG Base Excess ABG Hemoglobin ABG Oxyhemoglobin ABG Sodium ABG Glucose Oxyhemoglobin 89.4 L Carboxyhemoglobin Sodium 147 H Potassium Carbon Dioxide BUN 25 H Creatinine Glucose POC Glucose 118 H Calcium Phosphorus 6.40 H Magnesium Lactate Dehydrogenase Triglycerides Arterial Blood Glucose Arterial Blood Ionized Calcium Urine WBC (Auto) Salicylates Acetaminophen 11/20/21 11/21/21 11/21/21 17:31 00:07 04:44 WBC 14.0 H RBC 5.08 H Hgb Hct 44.7 H MCH 26 L MCHC 29 L RDW 17.8 H Plt Count Lymph % (Auto) Bennett % (Auto) Lymph # (Auto) Bennett # (Auto) Seg Neutrophils % Lymphocytes % (Manual) Seg Neutrophils # Seg Neutrophils # Man Lymphocytes # (Manual) D-Dimer ABG pH POC ABG pCO2 POC ABG pO2 ABG pO2 ABG HCO3 ABG O2 Saturation ABG Base Excess ABG Hemoglobin ABG Oxyhemoglobin ABG Sodium ABG Glucose Oxyhemoglobin Carboxyhemoglobin Sodium Potassium Carbon Dioxide BUN Creatinine Glucose POC Glucose 139 H 147 H Calcium Phosphorus Magnesium Lactate Dehydrogenase Triglycerides Arterial Blood Glucose Arterial Blood Ionized Calcium Urine WBC (Auto) Salicylates Acetaminophen 11/21/21 11/21/21 11/21/21 04:44 06:06 11:45 WBC RBC Hgb Hct MCH MCHC RDW Plt Count Lymph % (Auto) Bennett % (Auto) Lymph # (Auto) Bennett # (Auto) Seg Neutrophils % Lymphocytes % (Manual) Seg Neutrophils # Seg Neutrophils # Man Lymphocytes # (Manual) D-Dimer ABG pH POC ABG pCO2 POC ABG pO2 ABG pO2 ABG HCO3 ABG O2 Saturation ABG Base Excess ABG Hemoglobin ABG Oxyhemoglobin ABG Sodium ABG Glucose Oxyhemoglobin Carboxyhemoglobin Sodium Potassium Carbon Dioxide BUN 20 H Creatinine Glucose 157 H POC Glucose 158 H 119 H Calcium Phosphorus Magnesium Lactate Dehydrogenase Triglycerides Arterial Blood Glucose Arterial Blood Ionized Calcium Urine WBC (Auto) Salicylates Acetaminophen 11/21/21 11/21/21 11/22/21 11:50 16:54 00:03 WBC RBC Hgb Hct MCH MCHC RDW Plt Count Lymph % (Auto) Bennett % (Auto) Lymph # (Auto) Bennett # (Auto) Seg Neutrophils % Lymphocytes % (Manual) Seg Neutrophils # Seg Neutrophils # Man Lymphocytes # (Manual) D-Dimer ABG pH POC ABG pCO2 POC ABG pO2 ABG pO2 61.8 L ABG HCO3 35.2 H ABG O2 Saturation 92.8 L ABG Base Excess 8.1 H ABG Hemoglobin ABG Oxyhemoglobin ABG Sodium ABG Glucose Oxyhemoglobin 90.6 L Carboxyhemoglobin Sodium Potassium Carbon Dioxide BUN Creatinine Glucose POC Glucose 149 H 133 H Calcium Phosphorus Magnesium Lactate Dehydrogenase Triglycerides Arterial Blood Glucose Arterial Blood Ionized Calcium Urine WBC (Auto) Salicylates Acetaminophen 11/22/21 11/22/21 11/22/21 04:39 04:39 04:39 WBC 14.1 H RBC Hgb Hct 43.4 H MCH 26 L MCHC RDW 17.9 H Plt Count Lymph % (Auto) Bennett % (Auto) Lymph # (Auto) Bennett # (Auto) Seg Neutrophils % Lymphocytes % (Manual) Seg Neutrophils # Seg Neutrophils # Man Lymphocytes # (Manual) D-Dimer ABG pH POC ABG pCO2 POC ABG pO2 ABG pO2 ABG HCO3 ABG O2 Saturation ABG Base Excess ABG Hemoglobin ABG Oxyhemoglobin ABG Sodium ABG Glucose Oxyhemoglobin Carboxyhemoglobin Sodium Potassium Carbon Dioxide 33 H BUN Creatinine Glucose 152 H POC Glucose Calcium Phosphorus Magnesium Lactate Dehydrogenase Triglycerides 185 H Arterial Blood Glucose Arterial Blood Ionized Calcium Urine WBC (Auto) Salicylates Acetaminophen 11/22/21 11/22/21 11/22/21 05:02 10:56 11:31 WBC RBC Hgb Hct MCH MCHC RDW Plt Count Lymph % (Auto) Bennett % (Auto) Lymph # (Auto) Bennett # (Auto) Seg Neutrophils % Lymphocytes % (Manual) Seg Neutrophils # Seg Neutrophils # Man Lymphocytes # (Manual) D-Dimer ABG pH POC ABG pCO2 POC ABG pO2 ABG pO2 55.3 L ABG HCO3 39.4 H ABG O2 Saturation 89.5 L ABG Base Excess 11.7 H ABG Hemoglobin ABG Oxyhemoglobin ABG Sodium ABG Glucose Oxyhemoglobin 87.2 L Carboxyhemoglobin Sodium Potassium Carbon Dioxide BUN Creatinine Glucose POC Glucose 158 H 116 H Calcium Phosphorus Magnesium Lactate Dehydrogenase Triglycerides Arterial Blood Glucose Arterial Blood Ionized Calcium Urine WBC (Auto) Salicylates Acetaminophen 11/22/21 11/22/21 11/23/21 17:29 23:22 04:49 WBC 13.6 H RBC 5.18 H Hgb Hct 45.6 H MCH 25 L MCHC 29 L RDW 17.5 H Plt Count Lymph % (Auto) Bennett % (Auto) Lymph # (Auto) Bennett # (Auto) Seg Neutrophils % Lymphocytes % (Manual) Seg Neutrophils # Seg Neutrophils # Man Lymphocytes # (Manual) D-Dimer ABG pH POC ABG pCO2 POC ABG pO2 ABG pO2 ABG HCO3 ABG O2 Saturation ABG Base Excess ABG Hemoglobin ABG Oxyhemoglobin ABG Sodium ABG Glucose Oxyhemoglobin Carboxyhemoglobin Sodium Potassium Carbon Dioxide BUN Creatinine Glucose POC Glucose 129 H 171 H Calcium Phosphorus Magnesium Lactate Dehydrogenase Triglycerides Arterial Blood Glucose Arterial Blood Ionized Calcium Urine WBC (Auto) Salicylates Acetaminophen 11/23/21 11/23/21 11/23/21 04:49 11:53 16:22 WBC RBC Hgb Hct MCH MCHC RDW Plt Count Lymph % (Auto) Bennett % (Auto) Lymph # (Auto) Bennett # (Auto) Seg Neutrophils % Lymphocytes % (Manual) Seg Neutrophils # Seg Neutrophils # Man Lymphocytes # (Manual) D-Dimer ABG pH POC ABG pCO2 POC ABG pO2 ABG pO2 61.8 L ABG HCO3 40.9 H ABG O2 Saturation 93.4 L ABG Base Excess 14.6 H ABG Hemoglobin 6.9 L ABG Oxyhemoglobin ABG Sodium ABG Glucose Oxyhemoglobin 90.2 L Carboxyhemoglobin Sodium 146 H Potassium Carbon Dioxide 36 H BUN 21 H Creatinine Glucose 155 H POC Glucose 166 H Calcium Phosphorus Magnesium Lactate Dehydrogenase Triglycerides Arterial Blood Glucose Arterial Blood Ionized Calcium Urine WBC (Auto) Salicylates Acetaminophen 11/23/21 11/23/21 11/24/21 17:11 23:07 05:03 WBC RBC Hgb Hct MCH MCHC RDW Plt Count Lymph % (Auto) Bennett % (Auto) Lymph # (Auto) Bennett # (Auto) Seg Neutrophils % Lymphocytes % (Manual) Seg Neutrophils # Seg Neutrophils # Man Lymphocytes # (Manual) D-Dimer ABG pH POC ABG pCO2 POC ABG pO2 ABG pO2 ABG HCO3 ABG O2 Saturation ABG Base Excess ABG Hemoglobin ABG Oxyhemoglobin ABG Sodium ABG Glucose Oxyhemoglobin Carboxyhemoglobin Sodium Potassium Carbon Dioxide BUN Creatinine Glucose POC Glucose 142 H 197 H 183 H Calcium Phosphorus Magnesium Lactate Dehydrogenase Triglycerides Arterial Blood Glucose Arterial Blood Ionized Calcium Urine WBC (Auto) Salicylates Acetaminophen 11/24/21 11/24/21 11/24/21 08:33 08:33 09:00 WBC RBC Hgb Hct 43.6 H MCH 26 L MCHC RDW 18.0 H Plt Count Lymph % (Auto) Bennett % (Auto) Lymph # (Auto) Bennett # (Auto) Seg Neutrophils % Lymphocytes % (Manual) Seg Neutrophils # Seg Neutrophils # Man Lymphocytes # (Manual) D-Dimer ABG pH POC ABG pCO2 POC ABG pO2 ABG pO2 69.1 L ABG HCO3 40.1 H ABG O2 Saturation 93.2 L ABG Base Excess 11.9 H ABG Hemoglobin ABG Oxyhemoglobin ABG Sodium ABG Glucose Oxyhemoglobin 90.3 L Carboxyhemoglobin Sodium Potassium 5.3 H D Carbon Dioxide 36 H BUN 25 H Creatinine 0.5 L Glucose 185 H POC Glucose Calcium Phosphorus Magnesium Lactate Dehydrogenase Triglycerides Arterial Blood Glucose Arterial Blood Ionized Calcium Urine WBC (Auto) Salicylates Acetaminophen 11/24/21 11/24/21 11/25/21 12:00 18:08 00:50 WBC RBC Hgb Hct MCH MCHC RDW Plt Count Lymph % (Auto) Bennett % (Auto) Lymph # (Auto) Bennett # (Auto) Seg Neutrophils % Lymphocytes % (Manual) Seg Neutrophils # Seg Neutrophils # Man Lymphocytes # (Manual) D-Dimer ABG pH POC ABG pCO2 POC ABG pO2 ABG pO2 67.3 L ABG HCO3 41.6 H 42.7 H ABG O2 Saturation 94.5 L ABG Base Excess 12.3 H 14.7 H ABG Hemoglobin ABG Oxyhemoglobin ABG Sodium ABG Glucose Oxyhemoglobin 93.1 L 91.6 L Carboxyhemoglobin Sodium Potassium Carbon Dioxide BUN Creatinine Glucose POC Glucose 168 H Calcium Phosphorus Magnesium Lactate Dehydrogenase Triglycerides Arterial Blood Glucose Arterial Blood Ionized Calcium Urine WBC (Auto) Salicylates Acetaminophen 11/25/21 11/25/21 11/25/21 04:57 04:57 14:18 WBC RBC 5.13 H Hgb Hct 45.1 H MCH 26 L MCHC RDW 17.7 H Plt Count Lymph % (Auto) Bennett % (Auto) Lymph # (Auto) Bennett # (Auto) Seg Neutrophils % Lymphocytes % (Manual) Seg Neutrophils # Seg Neutrophils # Man Lymphocytes # (Manual) D-Dimer ABG pH POC ABG pCO2 POC ABG pO2 ABG pO2 65.1 L ABG HCO3 41.7 H ABG O2 Saturation 94.2 L ABG Base Excess 13.4 H ABG Hemoglobin ABG Oxyhemoglobin ABG Sodium ABG Glucose Oxyhemoglobin 91.3 L Carboxyhemoglobin Sodium 146 H Potassium Carbon Dioxide 38 H BUN 26 H Creatinine 0.5 L Glucose 210 H POC Glucose Calcium Phosphorus Magnesium Lactate Dehydrogenase Triglycerides Arterial Blood Glucose Arterial Blood Ionized Calcium Urine WBC (Auto) Salicylates Acetaminophen 11/25/21 11/26/21 11/26/21 19:22 04:28 04:28 WBC RBC 5.05 H Hgb Hct 44.0 H MCH 26 L MCHC RDW 17.6 H Plt Count Lymph % (Auto) Bennett % (Auto) Lymph # (Auto) Bennett # (Auto) Seg Neutrophils % Lymphocytes % (Manual) Seg Neutrophils # Seg Neutrophils # Man Lymphocytes # (Manual) D-Dimer ABG pH POC ABG pCO2 POC ABG pO2 ABG pO2 ABG HCO3 ABG O2 Saturation ABG Base Excess ABG Hemoglobin ABG Oxyhemoglobin ABG Sodium ABG Glucose Oxyhemoglobin Carboxyhemoglobin Sodium 146 H Potassium Carbon Dioxide 38 H BUN 30 H Creatinine Glucose 124 H POC Glucose 151 H Calcium 10.5 H Phosphorus Magnesium Lactate Dehydrogenase Triglycerides Arterial Blood Glucose Arterial Blood Ionized Calcium Urine WBC (Auto) Salicylates Acetaminophen 11/26/21 11/26/21 11/27/21 05:50 10:28 08:31 WBC 12.4 H RBC 5.62 H Hgb 14.6 H Hct 48.7 H MCH 26 L MCHC RDW 17.9 H Plt Count 469 H Lymph % (Auto) Bennett % (Auto) Lymph # (Auto) Bennett # (Auto) Seg Neutrophils % Lymphocytes % (Manual) Seg Neutrophils # Seg Neutrophils # Man Lymphocytes # (Manual) D-Dimer ABG pH POC ABG pCO2 POC ABG pO2 ABG pO2 66.5 L ABG HCO3 39.6 H ABG O2 Saturation 92.9 L ABG Base Excess 11.4 H ABG Hemoglobin 16.8 H ABG Oxyhemoglobin ABG Sodium ABG Glucose Oxyhemoglobin 90.3 L Carboxyhemoglobin Sodium Potassium Carbon Dioxide BUN Creatinine Glucose POC Glucose 121 H Calcium Phosphorus Magnesium Lactate Dehydrogenase Triglycerides Arterial Blood Glucose Arterial Blood Ionized Calcium Urine WBC (Auto) Salicylates Acetaminophen 11/27/21 11/27/21 11/27/21 08:31 09:46 11:49 WBC RBC Hgb Hct MCH MCHC RDW Plt Count Lymph % (Auto) Bennett % (Auto) Lymph # (Auto) Bennett # (Auto) Seg Neutrophils % Lymphocytes % (Manual) Seg Neutrophils # Seg Neutrophils # Man Lymphocytes # (Manual) D-Dimer ABG pH POC ABG pCO2 POC ABG pO2 ABG pO2 ABG HCO3 ABG O2 Saturation ABG Base Excess ABG Hemoglobin ABG Oxyhemoglobin ABG Sodium ABG Glucose Oxyhemoglobin Carboxyhemoglobin Sodium 150 H Potassium Carbon Dioxide 33 H BUN 31 H Creatinine Glucose 135 H POC Glucose 140 H 153 H Calcium 11.0 H Phosphorus Magnesium Lactate Dehydrogenase Triglycerides Arterial Blood Glucose Arterial Blood Ionized Calcium Urine WBC (Auto) Salicylates Acetaminophen 11/27/21 11/27/21 11/27/21 14:16 17:14 23:25 WBC RBC Hgb Hct MCH MCHC RDW Plt Count Lymph % (Auto) Bennett % (Auto) Lymph # (Auto) Bennett # (Auto) Seg Neutrophils % Lymphocytes % (Manual) Seg Neutrophils # Seg Neutrophils # Man Lymphocytes # (Manual) D-Dimer ABG pH 7.485 H POC ABG pCO2 48.7 H POC ABG pO2 74.5 L ABG pO2 ABG HCO3 ABG O2 Saturation ABG Base Excess ABG Hemoglobin ABG Oxyhemoglobin ABG Sodium 145.5 H ABG Glucose 153 H Oxyhemoglobin Carboxyhemoglobin 1.6 H Sodium Potassium Carbon Dioxide BUN Creatinine Glucose POC Glucose 142 H 123 H Calcium Phosphorus Magnesium Lactate Dehydrogenase Triglycerides Arterial Blood Glucose 153 H Arterial Blood Ionized Calcium 5.4 H Urine WBC (Auto) Salicylates Acetaminophen 11/28/21 11/28/21 11/28/21 03:38 03:38 05:16 WBC RBC 5.05 H Hgb Hct 43.6 H MCH 26 L MCHC RDW 17.8 H Plt Count Lymph % (Auto) Bennett % (Auto) Lymph # (Auto) Bennett # (Auto) Seg Neutrophils % Lymphocytes % (Manual) Seg Neutrophils # Seg Neutrophils # Man Lymphocytes # (Manual) D-Dimer ABG pH POC ABG pCO2 POC ABG pO2 ABG pO2 ABG HCO3 ABG O2 Saturation ABG Base Excess ABG Hemoglobin ABG Oxyhemoglobin ABG Sodium ABG Glucose Oxyhemoglobin Carboxyhemoglobin Sodium 150 H Potassium Carbon Dioxide 32 H BUN 51 H Creatinine Glucose 143 H POC Glucose 138 H Calcium 10.5 H Phosphorus Magnesium Lactate Dehydrogenase Triglycerides Arterial Blood Glucose Arterial Blood Ionized Calcium Urine WBC (Auto) Salicylates Acetaminophen 11/28/21 11/28/21 11/29/21 17:01 23:51 03:51 WBC RBC Hgb Hct MCH MCHC RDW Plt Count Lymph % (Auto) Bennett % (Auto) Lymph # (Auto) Bennett # (Auto) Seg Neutrophils % Lymphocytes % (Manual) Seg Neutrophils # Seg Neutrophils # Man Lymphocytes # (Manual) D-Dimer ABG pH POC ABG pCO2 54.1 H POC ABG pO2 70.6 L ABG pO2 ABG HCO3 ABG O2 Saturation ABG Base Excess ABG Hemoglobin ABG Oxyhemoglobin 93.1 L ABG Sodium ABG Glucose 144 H Oxyhemoglobin Carboxyhemoglobin Sodium Potassium Carbon Dioxide BUN Creatinine Glucose POC Glucose 145 H 130 H Calcium Phosphorus Magnesium Lactate Dehydrogenase Triglycerides Arterial Blood Glucose 144 H Arterial Blood Ionized Calcium Urine WBC (Auto) Salicylates Acetaminophen 11/29/21 11/29/21 11/29/21 05:51 05:51 12:09 WBC 11.1 H RBC Hgb Hct MCH 26 L MCHC RDW 17.8 H Plt Count Lymph % (Auto) Bennett % (Auto) Lymph # (Auto) Bennett # (Auto) Seg Neutrophils % Lymphocytes % (Manual) Seg Neutrophils # Seg Neutrophils # Man Lymphocytes # (Manual) D-Dimer ABG pH POC ABG pCO2 POC ABG pO2 ABG pO2 ABG HCO3 ABG O2 Saturation ABG Base Excess ABG Hemoglobin ABG Oxyhemoglobin ABG Sodium ABG Glucose Oxyhemoglobin Carboxyhemoglobin Sodium Potassium Carbon Dioxide 31 H BUN 42 H Creatinine Glucose 133 H POC Glucose 157 H Calcium Phosphorus Magnesium Lactate Dehydrogenase Triglycerides Arterial Blood Glucose Arterial Blood Ionized Calcium Urine WBC (Auto) Salicylates Acetaminophen 11/29/21 11/30/21 11/30/21 17:27 00:23 04:42 WBC RBC 5.05 H Hgb Hct 43.6 H MCH 26 L MCHC RDW 17.5 H Plt Count Lymph % (Auto) Bennett % (Auto) Lymph # (Auto) Bennett # (Auto) Seg Neutrophils % Lymphocytes % (Manual) Seg Neutrophils # Seg Neutrophils # Man Lymphocytes # (Manual) D-Dimer ABG pH POC ABG pCO2 POC ABG pO2 ABG pO2 ABG HCO3 ABG O2 Saturation ABG Base Excess ABG Hemoglobin ABG Oxyhemoglobin ABG Sodium ABG Glucose Oxyhemoglobin Carboxyhemoglobin Sodium Potassium Carbon Dioxide BUN Creatinine Glucose POC Glucose 164 H 192 H Calcium Phosphorus Magnesium Lactate Dehydrogenase Triglycerides Arterial Blood Glucose Arterial Blood Ionized Calcium Urine WBC (Auto) Salicylates Acetaminophen 11/30/21 11/30/21 11/30/21 04:42 11:27 12:04 WBC RBC Hgb Hct MCH MCHC RDW Plt Count Lymph % (Auto) Bennett % (Auto) Lymph # (Auto) Bennett # (Auto) Seg Neutrophils % Lymphocytes % (Manual) Seg Neutrophils # Seg Neutrophils # Man Lymphocytes # (Manual) D-Dimer ABG pH POC ABG pCO2 60.0 H POC ABG pO2 68.3 L ABG pO2 ABG HCO3 ABG O2 Saturation ABG Base Excess ABG Hemoglobin ABG Oxyhemoglobin 90.9 L ABG Sodium 145.1 H ABG Glucose 122 H Oxyhemoglobin Carboxyhemoglobin Sodium Potassium Carbon Dioxide BUN 32 H Creatinine 0.5 L Glucose 178 H POC Glucose 156 H Calcium Phosphorus Magnesium Lactate Dehydrogenase Triglycerides Arterial Blood Glucose 122 H Arterial Blood Ionized Calcium Urine WBC (Auto) Salicylates Acetaminophen 11/30/21 11/30/21 12/01/21 17:35 23:51 04:00 WBC 13.8 H RBC Hgb Hct MCH 26 L MCHC RDW 17.6 H Plt Count 455 H Lymph % (Auto) Bennett % (Auto) Lymph # (Auto) Bennett # (Auto) Seg Neutrophils % Lymphocytes % (Manual) Seg Neutrophils # Seg Neutrophils # Man Lymphocytes # (Manual) D-Dimer ABG pH POC ABG pCO2 POC ABG pO2 ABG pO2 ABG HCO3 ABG O2 Saturation ABG Base Excess ABG Hemoglobin ABG Oxyhemoglobin ABG Sodium ABG Glucose Oxyhemoglobin Carboxyhemoglobin Sodium Potassium Carbon Dioxide BUN Creatinine Glucose POC Glucose 124 H 158 H Calcium Phosphorus Magnesium Lactate Dehydrogenase Triglycerides Arterial Blood Glucose Arterial Blood Ionized Calcium Urine WBC (Auto) Salicylates Acetaminophen 12/01/21 12/01/21 12/01/21 04:00 06:03 11:13 WBC RBC Hgb Hct MCH MCHC RDW Plt Count Lymph % (Auto) Bennett % (Auto) Lymph # (Auto) Bennett # (Auto) Seg Neutrophils % Lymphocytes % (Manual) Seg Neutrophils # Seg Neutrophils # Man Lymphocytes # (Manual) D-Dimer ABG pH POC ABG pCO2 POC ABG pO2 ABG pO2 ABG HCO3 ABG O2 Saturation ABG Base Excess ABG Hemoglobin ABG Oxyhemoglobin ABG Sodium ABG Glucose Oxyhemoglobin Carboxyhemoglobin Sodium Potassium Carbon Dioxide BUN 36 H Creatinine 0.5 L Glucose 188 H POC Glucose 178 H 121 H Calcium Phosphorus Magnesium Lactate Dehydrogenase Triglycerides Arterial Blood Glucose Arterial Blood Ionized Calcium Urine WBC (Auto) Salicylates Acetaminophen 12/01/21 12/01/21 12/01/21 11:42 16:54 23:43 WBC RBC Hgb Hct MCH MCHC RDW Plt Count Lymph % (Auto) Bennett % (Auto) Lymph # (Auto) Bennett # (Auto) Seg Neutrophils % Lymphocytes % (Manual) Seg Neutrophils # Seg Neutrophils # Man Lymphocytes # (Manual) D-Dimer ABG pH POC ABG pCO2 POC ABG pO2 ABG pO2 71.0 L ABG HCO3 32.3 H ABG O2 Saturation 94.5 L ABG Base Excess 5.7 H ABG Hemoglobin ABG Oxyhemoglobin ABG Sodium ABG Glucose Oxyhemoglobin 92.6 L Carboxyhemoglobin Sodium Potassium Carbon Dioxide BUN Creatinine Glucose POC Glucose 129 H 115 H Calcium Phosphorus Magnesium Lactate Dehydrogenase Triglycerides Arterial Blood Glucose Arterial Blood Ionized Calcium Urine WBC (Auto) Salicylates Acetaminophen 12/02/21 12/02/21 12/02/21 04:55 04:55 05:19 WBC RBC Hgb Hct MCH 26 L MCHC RDW 18.1 H Plt Count 476 H Lymph % (Auto) Bennett % (Auto) Lymph # (Auto) Bennett # (Auto) Seg Neutrophils % Lymphocytes % (Manual) Seg Neutrophils # Seg Neutrophils # Man Lymphocytes # (Manual) D-Dimer ABG pH POC ABG pCO2 POC ABG pO2 ABG pO2 ABG HCO3 ABG O2 Saturation ABG Base Excess ABG Hemoglobin ABG Oxyhemoglobin ABG Sodium ABG Glucose Oxyhemoglobin Carboxyhemoglobin Sodium Potassium Carbon Dioxide 33 H BUN 30 H Creatinine 0.5 L Glucose 140 H POC Glucose 127 H Calcium Phosphorus Magnesium Lactate Dehydrogenase Triglycerides Arterial Blood Glucose Arterial Blood Ionized Calcium Urine WBC (Auto) Salicylates Acetaminophen 12/02/21 12/02/21 12/02/21 11:33 17:19 23:49 WBC RBC Hgb Hct MCH MCHC RDW Plt Count Lymph % (Auto) Bennett % (Auto) Lymph # (Auto) Bennett # (Auto) Seg Neutrophils % Lymphocytes % (Manual) Seg Neutrophils # Seg Neutrophils # Man Lymphocytes # (Manual) D-Dimer ABG pH POC ABG pCO2 POC ABG pO2 ABG pO2 ABG HCO3 ABG O2 Saturation ABG Base Excess ABG Hemoglobin ABG Oxyhemoglobin ABG Sodium ABG Glucose Oxyhemoglobin Carboxyhemoglobin Sodium Potassium Carbon Dioxide BUN Creatinine Glucose POC Glucose 118 H 139 H 140 H Calcium Phosphorus Magnesium Lactate Dehydrogenase Triglycerides Arterial Blood Glucose Arterial Blood Ionized Calcium Urine WBC (Auto) Salicylates Acetaminophen 12/03/21 12/03/21 12/03/21 04:52 04:52 05:03 WBC RBC 5.15 H Hgb Hct 44.2 H MCH 27 L MCHC RDW 17.8 H Plt Count 566 H Lymph % (Auto) Bennett % (Auto) Lymph # (Auto) Bennett # (Auto) Seg Neutrophils % Lymphocytes % (Manual) Seg Neutrophils # Seg Neutrophils # Man Lymphocytes # (Manual) D-Dimer ABG pH POC ABG pCO2 POC ABG pO2 ABG pO2 ABG HCO3 ABG O2 Saturation ABG Base Excess ABG Hemoglobin ABG Oxyhemoglobin ABG Sodium ABG Glucose Oxyhemoglobin Carboxyhemoglobin Sodium Potassium Carbon Dioxide BUN 22 H Creatinine 0.4 L Glucose 142 H POC Glucose 142 H Calcium Phosphorus Magnesium Lactate Dehydrogenase Triglycerides Arterial Blood Glucose Arterial Blood Ionized Calcium Urine WBC (Auto) Salicylates Acetaminophen 12/03/21 12/03/21 12/04/21 11:16 16:11 04:48 WBC 12.1 H RBC 5.58 H Hgb Hct 47.8 H MCH 26 L MCHC RDW 18.4 H Plt Count 576 H Lymph % (Auto) Bennett % (Auto) Lymph # (Auto) Bennett # (Auto) Seg Neutrophils % Lymphocytes % (Manual) Seg Neutrophils # Seg Neutrophils # Man Lymphocytes # (Manual) D-Dimer ABG pH POC ABG pCO2 POC ABG pO2 ABG pO2 ABG HCO3 ABG O2 Saturation ABG Base Excess ABG Hemoglobin ABG Oxyhemoglobin ABG Sodium ABG Glucose Oxyhemoglobin Carboxyhemoglobin Sodium Potassium Carbon Dioxide BUN Creatinine Glucose POC Glucose 147 H 140 H Calcium Phosphorus Magnesium Lactate Dehydrogenase Triglycerides Arterial Blood Glucose Arterial Blood Ionized Calcium Urine WBC (Auto) Salicylates Acetaminophen 12/04/21 12/04/21 12/04/21 04:48 05:42 11:54 WBC RBC Hgb Hct MCH MCHC RDW Plt Count Lymph % (Auto) Bennett % (Auto) Lymph # (Auto) Bennett # (Auto) Seg Neutrophils % Lymphocytes % (Manual) Seg Neutrophils # Seg Neutrophils # Man Lymphocytes # (Manual) D-Dimer ABG pH POC ABG pCO2 POC ABG pO2 ABG pO2 ABG HCO3 ABG O2 Saturation ABG Base Excess ABG Hemoglobin ABG Oxyhemoglobin ABG Sodium ABG Glucose Oxyhemoglobin Carboxyhemoglobin Sodium Potassium Carbon Dioxide BUN 19 H Creatinine 0.5 L Glucose 123 H POC Glucose 111 H 121 H Calcium Phosphorus Magnesium Lactate Dehydrogenase Triglycerides Arterial Blood Glucose Arterial Blood Ionized Calcium Urine WBC (Auto) Salicylates Acetaminophen 12/05/21 12/05/21 12/05/21 07:53 08:02 08:02 WBC 11.3 H RBC 5.94 H Hgb 15.3 H Hct 50.9 H MCH 26 L MCHC RDW 18.3 H Plt Count 611 H Lymph % (Auto) Bennett % (Auto) Lymph # (Auto) Bennett # (Auto) Seg Neutrophils % Lymphocytes % (Manual) Seg Neutrophils # Seg Neutrophils # Man Lymphocytes # (Manual) D-Dimer ABG pH POC ABG pCO2 POC ABG pO2 ABG pO2 ABG HCO3 ABG O2 Saturation ABG Base Excess ABG Hemoglobin ABG Oxyhemoglobin ABG Sodium ABG Glucose Oxyhemoglobin Carboxyhemoglobin Sodium Potassium Carbon Dioxide BUN 19 H Creatinine 0.5 L Glucose POC Glucose 112 H Calcium Phosphorus Magnesium Lactate Dehydrogenase Triglycerides Arterial Blood Glucose Arterial Blood Ionized Calcium Urine WBC (Auto) Salicylates Acetaminophen 12/05/21 11:10 WBC RBC Hgb Hct MCH MCHC RDW Plt Count Lymph % (Auto) Bennett % (Auto) Lymph # (Auto) Bennett # (Auto) Seg Neutrophils % Lymphocytes % (Manual) Seg Neutrophils # Seg Neutrophils # Man Lymphocytes # (Manual) D-Dimer ABG pH POC ABG pCO2 POC ABG pO2 ABG pO2 ABG HCO3 ABG O2 Saturation ABG Base Excess ABG Hemoglobin ABG Oxyhemoglobin ABG Sodium ABG Glucose Oxyhemoglobin Carboxyhemoglobin Sodium Potassium Carbon Dioxide BUN Creatinine Glucose POC Glucose 125 H Calcium Phosphorus Magnesium Lactate Dehydrogenase Triglycerides Arterial Blood Glucose Arterial Blood Ionized Calcium Urine WBC (Auto) Salicylates Acetaminophen Allied health notes reviewed: nursing
[2021-12-05] MEDS: ENOXAPARIN 40 MG/0.4 ML INJ SUB-Q SCH (23:06)
[2021-12-05] MEDS: tiZANidine TAB 4 MG TAB PO SCH (23:07)
[2021-12-06] MEDS: INSULIN LISPRO 100 UNIT/ML SUB-Q SCH ×5 (01:16→22:53)
[2021-12-06] MEDS: hydrALAZINE 20 MG/1 ML INJ IV PRN (07:08)
--- NOTE | 2021-12-06 09:23 | Progress Note ---
Assessment and Plan 81-year-old female with known history of coronary artery disease, CA, CHF, pulmonary hypertension and COPD , GERD brought into the emergency room via EMS for altered mental status and unresponsiveness. Most of the history was gotten from the ER staff as patient was already intubated in the emergency room. According to EMS patient was said to be having difficulty breathing was minimally responsive but in respiratory distress initially. She is well-known to EMS service as she had been transported on multiple occasions for COPD exace rbations. Respiratory status was said to have worsened in route to the hospital and patient had been given Solu-Medrol and magnesium IV. However she was said to have developed pinpoint pupils and was given some Narcan with some improvement. Work-up in the emergency room today, labs were significant for leukocytosis of 15.6, D-dimer of 464. Urinalysis was significant for UTI. Chest x-ray shows bilateral pulmonary opacities possibly representing edema/atelectasis or pneumonia. CT of the chest shows evidence of pulmonary hypertension with dense consolidation along the left lower lobe that is concerning for pneumonia. Mild interstitial pulmonary edema. Patient extubated and transfered to the telemetry. Patient awake. Confused. On litres O2 via nasal canula. No acute respiratory distress. BIPAP stand by in the room. Patient afebrile. Has mild leukocytosis. Blood pressure 165/69, Pulse 81, respirations 18. Chest xray done 12/06/21 reported Poor degree of inspiration is seen. A mildly co ngested appearance is noted and there may be mild interstitial edema. Bibasilar atelectatic changes are noted. No pneumothorax. Patient presently on Brovanna/Budesonide aerosol treatments, Albuterol inhaler q 6 hours Prn for shortness of breath,S/C Lovenox, Famotidine, - Patient Problems (1) Altered mental status Current Visit: Yes Status: Acute Plan to address problem: Management as per primary care and neurology. (2) COPD exacerbation Current Visit: Yes Status: Acute Plan to address problem: O2 3 litres via nasal canula Brovanna/Budesonide aerosol treatments q 12 hours Continue S/C Lovenox, Continue famotidine. (3) Pneumonia Current Visit: Yes Status: Acute Plan to address problem: If patient febrile, consider antibiotics. (4) Acute exacerbation of CHF (congestive heart failure) Current Visit: No Status: Acute Qualifiers: Heart failure type: combined systolic and diastolic Qualified Code(s): I50.43 - Acute on chronic combined systolic (congestive) and diastolic (congestive) heart failure Plan to address problem: Management as per cardiology. (5) Hypertension Current Visit: No Status: Chronic Qualifiers: Hypertension type: essential hypertension Plan to address problem: Management as per primary care. Subjective Date of service: 12/06/21 Principal diagnosis: AE-COPD; AHRF; CHF (? new onset); CAP; CAD; Obesity; HTNsive Emergency Interval history: 81-year-old female with known history of coronary artery disease, CA, CHF, pulmonary hypertension and COPD , GERD brought into the emergency room via EMS for altered mental status and unresponsiveness. Most of the history was gotten from the ER staff as patient was already intubated in the emergency room. According to EMS patient was said to be having difficulty breathing was minimally responsive but in respiratory distress initially. She is well-known to EMS service as she had been transported on multiple occasions for COPD exacerbations. Respiratory status was said to have worsened in route to the hospital and patient had been given Solu-Medrol and magnesium IV. However she was said to have developed pinpoint pupils and was given some Narcan with some improvement. Work-up in the emergency room today, labs were significant for leukocytosis of 15.6, D-dimer of 464. Urinalysis was significant for UTI. Chest x-ray shows bilateral pulmonary opacities possibly representing edema/atelectasis or pneumonia. CT of the chest shows evidence of pulmonary hypertension with dense consolidation along the left lower lobe that is concerning for pneumonia. Mild interstitial pulmonary edema. Patient extubated and transfered to the telemetry. Patient awake. Confused. On litres O2 via nasal canula. No acute respiratory distress. BIPAP stand by in the room. Patient afebrile. Has mild leukocytosis. Blood pressure 165/69, Pulse 81, respi rations 18. Chest xray done 12/06/21 reported Poor degree of inspiration is seen. A mildly congested appearance is noted and there may be mild interstitial edema. Bibasilar atelectatic changes are noted. No pneumothorax. Patient presently on Brovanna/Budesonide aerosol treatments, Albuterol inhaler q 6 hours Prn for shortness of breath,S/C Lovenox, Famotidine, Objective Vital Signs - 12hr 12/05/21 12/06/21 12/06/21 22:00 00:00 05:19 Temperature 98.9 F Pulse Rate 81 80 Respiratory 18 Rate Blood Pressure Blood Pressure 186/88 [Left] O2 Sat by Pulse 96 92 Oximetry 12/06/21 07:08 Temperature Pulse Rate 71 Respiratory Rate Blood Pressure 178/78 Blood Pressure [Left] O2 Sat by Pulse Oximetry Constitutional: no acute distress, alert, other (Confused) Eyes: non-icteric ENT: oropharynx moist Neck: supple, no lymphadenopathy, no JVD, other (large circumference) Effort: mildly labored Ascultation: Bilateral: diminished breath sounds, rhonchi (scant bases) Percussion: Bilateral: not dull Cardiovascular: regular rate and rhythm Gastrointestinal: normoactive bowel sounds, soft, non-tender, non-distended (protuberant) Integumentary: normal Extremities: no cyanosis, no edema, pulses normal, no ischemia or petechiae Neurologic: non-focal exam (grossly), pupils equal and round Psychiatric: other (mild delirium, Confused.) CBC and BMP: 12/05/21 08:02 12/05/21 08:02 ABG, PT/INR, D-dimer: ABG ABG pH 7.380 pH Units (7.350-7.450) 12/01/21 11:42 POC ABG pCO2 60.0 mmHg (32.0-48.0) H 11/30/21 12:04 ABG pCO2 55.8 mm Hg 12/01/21 11:42 POC ABG pO2 68.3 mmHg (83-108) L 11/30/21 12:04 ABG pO2 71.0 mm Hg (80.0-90.0) L 12/01/21 11:42 POC ABG HCO3 32.9 11/30/21 12:04 ABG O2 Saturation 94.5 % (95.0-99.0) L 12/01/21 11:42 PT/INR, D-dimer PT 12.9 Sec. (12.2-14.9) 11/18/21 00:19 INR 0.88 (0.87-1.13) 11/18/21 00:19 D-Dimer 464.80 ng/mlDDU (0-234) H 11/18/21 05:15 Abnormal lab findings: Abnormal Labs 11/18/21 11/18/21 11/18/21 00:01 00:19 00:19 WBC 15.6 H RBC 5.59 H Hgb 14.8 H Hct 49.8 H MCH 27 L MCHC RDW 16.9 H Plt Count Lymph % (Auto) [place] % (Auto) Lymph # (Auto) [place] # (Auto) Seg Neutrophils % Lymphocytes % (Manual) 4.0 L Seg Neutrophils # Seg Neutrophils # Man 14.7 H Lymphocytes # (Manual) 0.6 L D-Dimer ABG pH POC ABG pCO2 POC ABG pO2 ABG pO2 ABG HCO3 ABG O2 Saturation ABG Base Excess ABG Hemoglobin ABG Oxyhemoglobin ABG Sodium ABG Glucose Oxyhemoglobin Carboxyhemoglobin Sodium Potassium Carbon Dioxide BUN Creatinine Glucose 148 H POC Glucose 151 H Calcium Phosphorus Magnesium Lactate Dehydrogenase Triglycerides Arterial Blood Glucose Arterial Blood Ionized Calcium Urine WBC (Auto) Salicylates Acetaminophen 11/18/21 11/18/21 11/18/21 00:19 00:19 00:19 WBC RBC Hgb Hct MCH MCHC RDW Plt Count Lymph % (Auto) [place] % (Auto) Lymph # (Auto) [place] # (Auto) Seg Neutrophils % Lymphocytes % (Manual) Seg Neutrophils # Seg Neutrophils # Man Lymphocytes # (Manual) D-Dimer ABG pH POC ABG pCO2 POC ABG pO2 ABG pO2 ABG HCO3 ABG O2 Saturation ABG Base Excess ABG Hemoglobin ABG Oxyhemoglobin ABG Sodium ABG Glucose Oxyhemoglobin Carboxyhemoglobin Sodium Potassium Carbon Dioxide BUN Creatinine Glucose POC Glucose Calcium Phosphorus Magnesium 2.50 H Lactate Dehydrogenase Triglycerides Arterial Blood Glucose Arterial Blood Ionized Calcium Urine WBC (Auto) Salicylates < 0.3 L Acetaminophen 5.0 L 11/18/21 11/18/21 11/18/21 01:03 02:00 05:15 WBC RBC Hgb Hct MCH MCHC RDW Plt Count Lymph % (Auto) [place] % (Auto) Lymph # (Auto) [place] # (Auto) Seg Neutrophils % Lymphocytes % (Manual) Seg Neutrophils # Seg Neutrophils # Man Lymphocytes # (Manual) D-Dimer 464.80 H ABG pH POC ABG pCO2 POC ABG pO2 ABG pO2 ABG HCO3 35.8 H ABG O2 Saturation ABG Base Excess 7.8 H ABG Hemoglobin ABG Oxyhemoglobin ABG Sodium ABG Glucose Oxyhemoglobin 91.9 L Carboxyhemoglobin Sodium Potassium Carbon Dioxide BUN Creatinine Glucose POC Glucose Calcium Phosphorus Magnesium Lactate Dehydrogenase Triglycerides Arterial Blood Glucose Arterial Blood Ionized Calcium Urine WBC (Auto) 16.0 H Salicylates Acetaminophen 11/18/21 11/18/21 11/18/21 05:15 15:47 15:47 WBC 13.5 H RBC 5.60 H Hgb 14.9 H Hct 49.1 H MCH 27 L MCHC RDW 17.3 H Plt Count Lymph % (Auto) 7.9 L [place] % (Auto) 10.1 H Lymph # (Auto) 1.1 L [place] # (Auto) 1.4 H Seg Neutrophils % 81.7 H Lymphocytes % (Manual) Seg Neutrophils # 11.0 H Seg Neutrophils # Man Lymphocytes # (Manual) D-Dimer ABG pH POC ABG pCO2 POC ABG pO2 ABG pO2 ABG HCO3 ABG O2 Saturation ABG Base Excess ABG Hemoglobin ABG Oxyhemoglobin ABG Sodium ABG Glucose Oxyhemoglobin Carboxyhemoglobin Sodium Potassium Carbon Dioxide BUN Creatinine Glucose 138 H POC Glucose Calcium Phosphorus Magnesium Lactate Dehydrogenase 275 H Triglycerides Arterial Blood Glucose Arterial Blood Ionized Calcium Urine WBC (Auto) Salicylates Acetaminophen 11/18/21 11/18/21 11/19/21 18:45 23:33 04:58 WBC RBC Hgb Hct MCH MCHC RDW Plt Count Lymph % (Auto) [place] % (Auto) Lymph # (Auto) [place] # (Auto) Seg Neutrophils % Lymphocytes % (Manual) Seg Neutrophils # Seg Neutrophils # Man Lymphocytes # (Manual) D-Dimer ABG pH POC ABG pCO2 POC ABG pO2 ABG pO2 ABG HCO3 ABG O2 Saturation ABG Base Excess ABG Hemoglobin ABG Oxyhemoglobin ABG Sodium ABG Glucose Oxyhemoglobin Carboxyhemoglobin Sodium Potassium Carbon Dioxide BUN Creatinine Glucose 130 H POC Glucose 132 H 113 H Calcium Phosphorus Magnesium Lactate Dehydrogenase Triglycerides Arterial Blood Glucose Arterial Blood Ionized Calcium Urine WBC (Auto) Salicylates Acetaminophen 11/19/21 11/19/21 11/19/21 07:59 07:59 08:55 WBC 12.7 H RBC 5.29 H Hgb Hct 45.5 H MCH 26 L MCHC RDW 17.4 H Plt Count Lymph % (Auto) 12.3 L [place] % (Auto) 9.6 H Lymph # (Auto) [place] # (Auto) 1.2 H Seg Neutrophils % 76.9 H Lymphocytes % (Manual) Seg Neutrophils # 9.7 H Seg Neutrophils # Man Lymphocytes # (Manual) D-Dimer ABG pH 7.518 H POC ABG pCO2 POC ABG pO2 ABG pO2 77.6 L ABG HCO3 30.1 H ABG O2 Saturation ABG Base Excess 6.9 H ABG Hemoglobin ABG Oxyhemoglobin ABG Sodium ABG Glucose Oxyhemoglobin Carboxyhemoglobin Sodium Potassium 3.1 L D Carbon Dioxide BUN Creatinine Glucose 115 H POC Glucose Calcium 8.1 L Phosphorus Magnesium Lactate Dehydrogenase Triglycerides Arterial Blood Glucose Arterial Blood Ionized Calcium Urine WBC (Auto) Salicylates Acetaminophen 11/19/21 11/19/21 11/20/21 11:33 16:22 04:20 WBC 13.9 H RBC 5.44 H Hgb Hct 49.3 H MCH 26 L MCHC 29 L RDW 18.3 H Plt Count Lymph % (Auto) [place] % (Auto) Lymph # (Auto) [place] # (Auto) Seg Neutrophils % Lymphocytes % (Manual) Seg Neutrophils # Seg Neutrophils # Man Lymphocytes # (Manual) D-Dimer ABG pH POC ABG pCO2 POC ABG pO2 ABG pO2 ABG HCO3 ABG O2 Saturation ABG Base Excess ABG Hemoglobin ABG Oxyhemoglobin ABG Sodium ABG Glucose Oxyhemoglobin Carboxyhemoglobin Sodium Potassium Carbon Dioxide BUN Creatinine Glucose POC Glucose 119 H 112 H Calcium Phosphorus Magnesium Lactate Dehydrogenase Triglycerides Arterial Blood Glucose Arterial Blood Ionized Calcium Urine WBC (Auto) Salicylates Acetaminophen 11/20/21 11/20/21 11/20/21 04:20 11:07 12:02 WBC RBC Hgb Hct MCH MCHC RDW Plt Count Lymph % (Auto) [place] % (Auto) Lymph # (Auto) [place] # (Auto) Seg Neutrophils % Lymphocytes % (Manual) Seg Neutrophils # Seg Neutrophils # Man Lymphocytes # (Manual) D-Dimer ABG pH 7.251 L POC ABG pCO2 POC ABG pO2 ABG pO2 66.3 L ABG HCO3 30.2 H ABG O2 Saturation 91.8 L ABG Base Excess ABG Hemoglobin ABG Oxyhemoglobin ABG Sodium ABG Glucose Oxyhemoglobin 89.4 L Carboxyhemoglobin Sodium 147 H Potassium Carbon Dioxide BUN 25 H Creatinine Glucose POC Glucose 118 H Calcium Phosphorus 6.40 H Magnesium Lactate Dehydrogenase Triglycerides Arterial Blood Glucose Arterial Blood Ionized Calcium Urine WBC (Auto) Salicylates Acetaminophen 11/20/21 11/21/21 11/21/21 17:31 00:07 04:44 WBC 14.0 H RBC 5.08 H Hgb Hct 44.7 H MCH 26 L MCHC 29 L RDW 17.8 H Plt Count Lymph % (Auto) [place] % (Auto) Lymph # (Auto) [place] # (Auto) Seg Neutrophils % Lymphocytes % (Manual) Seg Neutrophils # Seg Neutrophils # Man Lymphocytes # (Manual) D-Dimer ABG pH POC ABG pCO2 POC ABG pO2 ABG pO2 ABG HCO3 ABG O2 Saturation ABG Base Excess ABG Hemoglobin ABG Oxyhemoglobin ABG Sodium ABG Glucose Oxyhemoglobin Carboxyhemoglobin Sodium Potassium Carbon Dioxide BUN Creatinine Glucose POC Glucose 139 H 147 H Calcium Phosphorus Magnesium Lactate Dehydrogenase Triglycerides Arterial Blood Glucose Arterial Blood Ionized Calcium Urine WBC (Auto) Salicylates Acetaminophen 11/21/21 11/21/21 11/21/21 04:44 06:06 11:45 WBC RBC Hgb Hct MCH MCHC RDW Plt Count Lymph % (Auto) [place] % (Auto) Lymph # (Auto) [place] # (Auto) Seg Neutrophils % Lymphocytes % (Manual) Seg Neutrophils # Seg Neutrophils # Man Lymphocytes # (Manual) D-Dimer ABG pH POC ABG pCO2 POC ABG pO2 ABG pO2 ABG HCO3 ABG O2 Saturation ABG Base Excess ABG Hemoglobin ABG Oxyhemoglobin ABG Sodium ABG Glucose Oxyhemoglobin Carboxyhemoglobin Sodium Potassium Carbon Dioxide BUN 20 H Creatinine Glucose 157 H POC Glucose 158 H 119 H Calcium Phosphorus Magnesium Lactate Dehydrogenase Triglycerides Arterial Blood Glucose Arterial Blood Ionized Calcium Urine WBC (Auto) Salicylates Acetaminophen 11/21/21 11/21/21 11/22/21 11:50 16:54 00:03 WBC RBC Hgb Hct MCH MCHC RDW Plt Count Lymph % (Auto) [place] % (Auto) Lymph # (Auto) [place] # (Auto) Seg Neutrophils % Lymphocytes % (Manual) Seg Neutrophils # Seg Neutrophils # Man Lymphocytes # (Manual) D-Dimer ABG pH POC ABG pCO2 POC ABG pO2 ABG pO2 61.8 L ABG HCO3 35.2 H ABG O2 Saturation 92.8 L ABG Base Excess 8.1 H ABG Hemoglobin ABG Oxyhemoglobin ABG Sodium ABG Glucose Oxyhemoglobin 90.6 L Carboxyhemoglobin Sodium Potassium Carbon Dioxide BUN Creatinine Glucose POC Glucose 149 H 133 H Calcium Phosphorus Magnesium Lactate Dehydrogenase Triglycerides Arterial Blood Glucose Arterial Blood Ionized Calcium Urine WBC (Auto) Salicylates Acetaminophen 11/22/21 11/22/21 11/22/21 04:39 04:39 04:39 WBC 14.1 H RBC Hgb Hct 43.4 H MCH 26 L MCHC RDW 17.9 H Plt Count Lymph % (Auto) [place] % (Auto) Lymph # (Auto) [place] # (Auto) Seg Neutrophils % Lymphocytes % (Manual) Seg Neutrophils # Seg Neutrophils # Man Lymphocytes # (Manual) D-Dimer ABG pH POC ABG pCO2 POC ABG pO2 ABG pO2 ABG HCO3 ABG O2 Saturation ABG Base Excess ABG Hemoglobin ABG Oxyhemoglobin ABG Sodium ABG Glucose Oxyhemoglobin Carboxyhemoglobin Sodium Potassium Carbon Dioxide 33 H BUN Creatinine Glucose 152 H POC Glucose Calcium Phosphorus Magnesium Lactate Dehydrogenase Triglycerides 185 H Arterial Blood Glucose Arterial Blood Ionized Calcium Urine WBC (Auto) Salicylates Acetaminophen 11/22/21 11/22/21 11/22/21 05:02 10:56 11:31 WBC RBC Hgb Hct MCH MCHC RDW Plt Count Lymph % (Auto) [place] % (Auto) Lymph # (Auto) [place] # (Auto) Seg Neutrophils % Lymphocytes % (Manual) Seg Neutrophils # Seg Neutrophils # Man Lymphocytes # (Manual) D-Dimer ABG pH POC ABG pCO2 POC ABG pO2 ABG pO2 55.3 L ABG HCO3 39.4 H ABG O2 Saturation 89.5 L ABG Base Excess 11.7 H ABG Hemoglobin ABG Oxyhemoglobin ABG Sodium ABG Glucose Oxyhemoglobin 87.2 L Carboxyhemoglobin Sodium Potassium Carbon Dioxide BUN Creatinine Glucose POC Glucose 158 H 116 H Calcium Phosphorus Magnesium Lactate Dehydrogenase Triglycerides Arterial Blood Glucose Arterial Blood Ionized Calcium Urine WBC (Auto) Salicylates Acetaminophen 11/22/21 11/22/21 11/23/21 17:29 23:22 04:49 WBC 13.6 H RBC 5.18 H Hgb Hct 45.6 H MCH 25 L MCHC 29 L RDW 17.5 H Plt Count Lymph % (Auto) [place] % (Auto) Lymph # (Auto) [place] # (Auto) Seg Neutrophils % Lymphocytes % (Manual) Seg Neutrophils # Seg Neutrophils # Man Lymphocytes # (Manual) D-Dimer ABG pH POC ABG pCO2 POC ABG pO2 ABG pO2 ABG HCO3 ABG O2 Saturation ABG Base Excess ABG Hemoglobin ABG Oxyhemoglobin ABG Sodium ABG Glucose Oxyhemoglobin Carboxyhemoglobin Sodium Potassium Carbon Dioxide BUN Creatinine Glucose POC Glucose 129 H 171 H Calcium Phosphorus Magnesium Lactate Dehydrogenase Triglycerides Arterial Blood Glucose Arterial Blood Ionized Calcium Urine WBC (Auto) Salicylates Acetaminophen 11/23/21 11/23/21 11/23/21 04:49 11:53 16:22 WBC RBC Hgb Hct MCH MCHC RDW Plt Count Lymph % (Auto) [place] % (Auto) Lymph # (Auto) [place] # (Auto) Seg Neutrophils % Lymphocytes % (Manual) Seg Neutrophils # Seg Neutrophils # Man Lymphocytes # (Manual) D-Dimer ABG pH POC ABG pCO2 POC ABG pO2 ABG pO2 61.8 L ABG HCO3 40.9 H ABG O2 Saturation 93.4 L ABG Base Excess 14.6 H ABG Hemoglobin 6.9 L ABG Oxyhemoglobin ABG Sodium ABG Glucose Oxyhemoglobin 90.2 L Carboxyhemoglobin Sodium 146 H Potassium Carbon Dioxide 36 H BUN 21 H Creatinine Glucose 155 H POC Glucose 166 H Calcium Phosphorus Magnesium Lactate Dehydrogenase Triglycerides Arterial Blood Glucose Arterial Blood Ionized Calcium Urine WBC (Auto) Salicylates Acetaminophen 11/23/21 11/23/21 11/24/21 17:11 23:07 05:03 WBC RBC Hgb Hct MCH MCHC RDW Plt Count Lymph % (Auto) [place] % (Auto) Lymph # (Auto) [place] # (Auto) Seg Neutrophils % Lymphocytes % (Manual) Seg Neutrophils # Seg Neutrophils # Man Lymphocytes # (Manual) D-Dimer ABG pH POC ABG pCO2 POC ABG pO2 ABG pO2 ABG HCO3 ABG O2 Saturation ABG Base Excess ABG Hemoglobin ABG Oxyhemoglobin ABG Sodium ABG Glucose Oxyhemoglobin Carboxyhemoglobin Sodium Potassium Carbon Dioxide BUN Creatinine Glucose POC Glucose 142 H 197 H 183 H Calcium Phosphorus Magnesium Lactate Dehydrogenase Triglycerides Arterial Blood Glucose Arterial Blood Ionized Calcium Urine WBC (Auto) Salicylates Acetaminophen 11/24/21 11/24/21 11/24/21 08:33 08:33 09:00 WBC RBC Hgb Hct 43.6 H MCH 26 L MCHC RDW 18.0 H Plt Count Lymph % (Auto) [place] % (Auto) Lymph # (Auto) [place] # (Auto) Seg Neutrophils % Lymphocytes % (Manual) Seg Neutrophils # Seg Neutrophils # Man Lymphocytes # (Manual) D-Dimer ABG pH POC ABG pCO2 POC ABG pO2 ABG pO2 69.1 L ABG HCO3 40.1 H ABG O2 Saturation 93.2 L ABG Base Excess 11.9 H ABG Hemoglobin ABG Oxyhemoglobin ABG Sodium ABG Glucose Oxyhemoglobin 90.3 L Carboxyhemoglobin Sodium Potassium 5.3 H D Carbon Dioxide 36 H BUN 25 H Creatinine 0.5 L Glucose 185 H POC Glucose Calcium Phosphorus Magnesium Lactate Dehydrogenase Triglycerides Arterial Blood Glucose Arterial Blood Ionized Calcium Urine WBC (Auto) Salicylates Acetaminophen 11/24/21 11/24/21 11/25/21 12:00 18:08 00:50 WBC RBC Hgb Hct MCH MCHC RDW Plt Count Lymph % (Auto) [place] % (Auto) Lymph # (Auto) [place] # (Auto) Seg Neutrophils % Lymphocytes % (Manual) Seg Neutrophils # Seg Neutrophils # Man Lymphocytes # (Manual) D-Dimer ABG pH POC ABG pCO2 POC ABG pO2 ABG pO2 67.3 L ABG HCO3 41.6 H 42.7 H ABG O2 Saturation 94.5 L ABG Base Excess 12.3 H 14.7 H ABG Hemoglobin ABG Oxyhemoglobin ABG Sodium ABG Glucose Oxyhemoglobin 93.1 L 91.6 L Carboxyhemoglobin Sodium Potassium Carbon Dioxide BUN Creatinine Glucose POC Glucose 168 H Calcium Phosphorus Magnesium Lactate Dehydrogenase Triglycerides Arterial Blood Glucose Arterial Blood Ionized Calcium Urine WBC (Auto) Salicylates Acetaminophen 11/25/21 11/25/21 11/25/21 04:57 04:57 14:18 WBC RBC 5.13 H Hgb Hct 45.1 H MCH 26 L MCHC RDW 17.7 H Plt Count Lymph % (Auto) [place] % (Auto) Lymph # (Auto) [place] # (Auto) Seg Neutrophils % Lymphocytes % (Manual) Seg Neutrophils # Seg Neutrophils # Man Lymphocytes # (Manual) D-Dimer ABG pH POC ABG pCO2 POC ABG pO2 ABG pO2 65.1 L ABG HCO3 41.7 H ABG O2 Saturation 94.2 L ABG Base Excess 13.4 H ABG Hemoglobin ABG Oxyhemoglobin ABG Sodium ABG Glucose Oxyhemoglobin 91.3 L Carboxyhemoglobin Sodium 146 H Potassium Carbon Dioxide 38 H BUN 26 H Creatinine 0.5 L Glucose 210 H POC Glucose Calcium Phosphorus Magnesium Lactate Dehydrogenase Triglycerides Arterial Blood Glucose Arterial Blood Ionized Calcium Urine WBC (Auto) Salicylates Acetaminophen 1211/26/21 11/26/21 19:22 04:28 04:28 WBC RBC 5.05 H Hgb Hct 44.0 H MCH 26 L MCHC RDW 17.6 H Plt Count Lymph % (Auto) [place] % (Auto) Lymph # (Auto) [place] # (Auto) Seg Neutrophils % Lymphocytes % (Manual) Seg Neutrophils # Seg Neutrophils # Man Lymphocytes # (Manual) D-Dimer ABG pH POC ABG pCO2 POC ABG pO2 ABG pO2 ABG HCO3 ABG O2 Saturation ABG Base Excess ABG Hemoglobin ABG Oxyhemoglobin ABG Sodium ABG Glucose Oxyhemoglobin Carboxyhemoglobin Sodium 146 H Potassium Carbon Dioxide 38 H BUN 30 H Creatinine Glucose 124 H POC Glucose 151 H Calcium 10.5 H Phosphorus Magnesium Lactate Dehydrogenase Triglycerides Arterial Blood Glucose Arterial Blood Ionized Calcium Urine WBC (Auto) Salicylates Acetaminophen 11/26/21 11/26/21 11/27/21 05:50 10:28 08:31 WBC 12.4 H RBC 5.62 H Hgb 14.6 H Hct 48.7 H MCH 26 L MCHC RDW 17.9 H Plt Count 469 H Lymph % (Auto) [place] % (Auto) Lymph # (Auto) [place] # (Auto) Seg Neutrophils % Lymphocytes % (Manual) Seg Neutrophils # Seg Neutrophils # Man Lymphocytes # (Manual) D-Dimer ABG pH POC ABG pCO2 POC ABG pO2 ABG pO2 66.5 L ABG HCO3 39.6 H ABG O2 Saturation 92.9 L ABG Base Excess 11.4 H ABG Hemoglobin 16.8 H ABG Oxyhemoglobin ABG Sodium ABG Glucose Oxyhemoglobin 90.3 L Carboxyhemoglobin Sodium Potassium Carbon Dioxide BUN Creatinine Glucose POC Glucose 121 H Calcium Phosphorus Magnesium Lactate Dehydrogenase Triglycerides Arterial Blood Glucose Arterial Blood Ionized Calcium Urine WBC (Auto) Salicylates Acetaminophen 11/27/21 11/27/21 11/27/21 08:31 09:46 11:49 WBC RBC Hgb Hct MCH MCHC RDW Plt Count Lymph % (Auto) [place] % (Auto) Lymph # (Auto) [place] # (Auto) Seg Neutrophils % Lymphocytes % (Manual) Seg Neutrophils # Seg Neutrophils # Man Lymphocytes # (Manual) D-Dimer ABG pH POC ABG pCO2 POC ABG pO2 ABG pO2 ABG HCO3 ABG O2 Saturation ABG Base Excess ABG Hemoglobin ABG Oxyhemoglobin ABG Sodium ABG Glucose Oxyhemoglobin Carboxyhemoglobin Sodium 150 H Potassium Carbon Dioxide 33 H BUN 31 H Creatinine Glucose 135 H POC Glucose 140 H 153 H Calcium 11.0 H Phosphorus Magnesium Lactate Dehydrogenase Triglycerides Arterial Blood Glucose Arterial Blood Ionized Calcium Urine WBC (Auto) Salicylates Acetaminophen 11/27/21 11/27/21 11/27/21 14:16 17:14 23:25 WBC RBC Hgb Hct MCH MCHC RDW Plt Count Lymph % (Auto) [place] % (Auto) Lymph # (Auto) [place] # (Auto) Seg Neutrophils % Lymphocytes % (Manual) Seg Neutrophils # Seg Neutrophils # Man Lymphocytes # (Manual) D-Dimer ABG pH 7.485 H POC ABG pCO2 48.7 H POC ABG pO2 74.5 L ABG pO2 ABG HCO3 ABG O2 Saturation ABG Base Excess ABG Hemoglobin ABG Oxyhemoglobin ABG Sodium 145.5 H ABG Glucose 153 H Oxyhemoglobin Carboxyhemoglobin 1.6 H Sodium Potassium Carbon Dioxide BUN Creatinine Glucose POC Glucose 142 H 123 H Calcium Phosphorus Magnesium Lactate Dehydrogenase Triglycerides Arterial Blood Glucose 153 H Arterial Blood Ionized Calcium 5.4 H Urine WBC (Auto) Salicylates Acetaminophen 11/28/21 11/28/21 11/28/21 03:38 03:38 05:16 WBC RBC 5.05 H Hgb Hct 43.6 H MCH 26 L MCHC RDW 17.8 H Plt Count Lymph % (Auto) [place] % (Auto) Lymph # (Auto) [place] # (Auto) Seg Neutrophils % Lymphocytes % (Manual) Seg Neutrophils # Seg Neutrophils # Man Lymphocytes # (Manual) D-Dimer ABG pH POC ABG pCO2 POC ABG pO2 ABG pO2 ABG HCO3 ABG O2 Saturation ABG Base Excess ABG Hemoglobin ABG Oxyhemoglobin ABG Sodium ABG Glucose Oxyhemoglobin Carboxyhemoglobin Sodium 150 H Potassium Carbon Dioxide 32 H BUN 51 H Creatinine Glucose 143 H POC Glucose 138 H Calcium 10.5 H Phosphorus Magnesium Lactate Dehydrogenase Triglycerides Arterial Blood Glucose Arterial Blood Ionized Calcium Urine WBC (Auto) Salicylates Acetaminophen 11/28/21 11/28/21 11/29/21 17:01 23:51 03:51 WBC RBC Hgb Hct MCH MCHC RDW Plt Count Lymph % (Auto) [place] % (Auto) Lymph # (Auto) [place] # (Auto) Seg Neutrophils % Lymphocytes % (Manual) Seg Neutrophils # Seg Neutrophils # Man Lymphocytes # (Manual) D-Dimer ABG pH POC ABG pCO2 54.1 H POC ABG pO2 70.6 L ABG pO2 ABG HCO3 ABG O2 Saturation ABG Base Excess ABG Hemoglobin ABG Oxyhemoglobin 93.1 L ABG Sodium ABG Glucose 144 H Oxyhemoglobin Carboxyhemoglobin Sodium Potassium Carbon Dioxide BUN Creatinine Glucose POC Glucose 145 H 130 H Calcium Phosphorus Magnesium Lactate Dehydrogenase Triglycerides Arterial Blood Glucose 144 H Arterial Blood Ionized Calcium Urine WBC (Auto) Salicylates Acetaminophen 11/29/21 11/29/21 11/29/21 05:51 05:51 12:09 WBC 11.1 H RBC Hgb Hct MCH 26 L MCHC RDW 17.8 H Plt Count Lymph % (Auto) [place] % (Auto) Lymph # (Auto) [place] # (Auto) Seg Neutrophils % Lymphocytes % (Manual) Seg Neutrophils # Seg Neutrophils # Man Lymphocytes # (Manual) D-Dimer ABG pH POC ABG pCO2 POC ABG pO2 ABG pO2 ABG HCO3 ABG O2 Saturation ABG Base Excess ABG Hemoglobin ABG Oxyhemoglobin ABG Sodium ABG Glucose Oxyhemoglobin Carboxyhemoglobin Sodium Potassium Carbon Dioxide 31 H BUN 42 H Creatinine Glucose 133 H POC Glucose 157 H Calcium Phosphorus Magnesium Lactate Dehydrogenase Triglycerides Arterial Blood Glucose Arterial Blood Ionized Calcium Urine WBC (Auto) Salicylates Acetaminophen 11/29/21 11/30/21 11/30/21 17:27 00:23 04:42 WBC RBC 5.05 H Hgb Hct 43.6 H MCH 26 L MCHC RDW 17.5 H Plt Count Lymph % (Auto) [place] % (Auto) Lymph # (Auto) [place] # (Auto) Seg Neutrophils % Lymphocytes % (Manual) Seg Neutrophils # Seg Neutrophils # Man Lymphocytes # (Manual) D-Dimer ABG pH POC ABG pCO2 POC ABG pO2 ABG pO2 ABG HCO3 ABG O2 Saturation ABG Base Excess ABG Hemoglobin ABG Oxyhemoglobin ABG Sodium ABG Glucose Oxyhemoglobin Carboxyhemoglobin Sodium Potassium Carbon Dioxide BUN Creatinine Glucose POC Glucose 164 H 192 H Calcium Phosphorus Magnesium Lactate Dehydrogenase Triglycerides Arterial Blood Glucose Arterial Blood Ionized Calcium Urine WBC (Auto) Salicylates Acetaminophen 11/30/21 11/30/21 11/30/21 04:42 11:27 12:04 WBC RBC Hgb Hct MCH MCHC RDW Plt Count Lymph % (Auto) [place] % (Auto) Lymph # (Auto) [place] # (Auto) Seg Neutrophils % Lymphocytes % (Manual) Seg Neutrophils # Seg Neutrophils # Man Lymphocytes # (Manual) D-Dimer ABG pH POC ABG pCO2 60.0 H POC ABG pO2 68.3 L ABG pO2 ABG HCO3 ABG O2 Saturation ABG Base Excess ABG Hemoglobin ABG Oxyhemoglobin 90.9 L ABG Sodium 145.1 H ABG Glucose 122 H Oxyhemoglobin Carboxyhemoglobin Sodium Potassium Carbon Dioxide BUN 32 H Creatinine 0.5 L Glucose 178 H POC Glucose 156 H Calcium Phosphorus Magnesium Lactate Dehydrogenase Triglycerides Arterial Blood Glucose 122 H Arterial Blood Ionized Calcium Urine WBC (Auto) Salicylates Acetaminophen 11/30/21 11/30/21 12/01/21 17:35 23:51 04:00 WBC 13.8 H RBC Hgb Hct MCH 26 L MCHC RDW 17.6 H Plt Count 455 H Lymph % (Auto) [place] % (Auto) Lymph # (Auto) [place] # (Auto) Seg Neutrophils % Lymphocytes % (Manual) Seg Neutrophils # Seg Neutrophils # Man Lymphocytes # (Manual) D-Dimer ABG pH POC ABG pCO2 POC ABG pO2 ABG pO2 ABG HCO3 ABG O2 Saturation ABG Base Excess ABG Hemoglobin ABG Oxyhemoglobin ABG Sodium ABG Glucose Oxyhemoglobin Carboxyhemoglobin Sodium Potassium Carbon Dioxide BUN Creatinine Glucose POC Glucose 124 H 158 H Calcium Phosphorus Magnesium Lactate Dehydrogenase Triglycerides Arterial Blood Glucose Arterial Blood Ionized Calcium Urine WBC (Auto) Salicylates Acetaminophen 12/01/21 12/01/21 12/01/21 04:00 06:03 11:13 WBC RBC Hgb Hct MCH MCHC RDW Plt Count Lymph % (Auto) [place] % (Auto) Lymph # (Auto) [place] # (Auto) Seg Neutrophils % Lymphocytes % (Manual) Seg Neutrophils # Seg Neutrophils # Man Lymphocytes # (Manual) D-Dimer ABG pH POC ABG pCO2 POC ABG pO2 ABG pO2 ABG HCO3 ABG O2 Saturation ABG Base Excess ABG Hemoglobin ABG Oxyhemoglobin ABG Sodium ABG Glucose Oxyhemoglobin Carboxyhemoglobin Sodium Potassium Carbon Dioxide BUN 36 H Creatinine 0.5 L Glucose 188 H POC Glucose 178 H 121 H Calcium Phosphorus Magnesium Lactate Dehydrogenase Triglycerides Arterial Blood Glucose Arterial Blood Ionized Calcium Urine WBC (Auto) Salicylates Acetaminophen 12/01/21 12/01/21 12/01/21 11:42 16:54 23:43 WBC RBC Hgb Hct MCH MCHC RDW Plt Count Lymph % (Auto) [place] % (Auto) Lymph # (Auto) [place] # (Auto) Seg Neutrophils % Lymphocytes % (Manual) Seg Neutrophils # Seg Neutrophils # Man Lymphocytes # (Manual) D-Dimer ABG pH POC ABG pCO2 POC ABG pO2 ABG pO2 71.0 L ABG HCO3 32.3 H ABG O2 Saturation 94.5 L ABG Base Excess 5.7 H ABG Hemoglobin ABG Oxyhemoglobin ABG Sodium ABG Glucose Oxyhemoglobin 92.6 L Carboxyhemoglobin Sodium Potassium Carbon Dioxide BUN Creatinine Glucose POC Glucose 129 H 115 H Calcium Phosphorus Magnesium Lactate Dehydrogenase Triglycerides Arterial Blood Glucose Arterial Blood Ionized Calcium Urine WBC (Auto) Salicylates Acetaminophen 12/02/21 12/02/21 12/02/21 04:55 04:55 05:19 WBC RBC Hgb Hct MCH 26 L MCHC RDW 18.1 H Plt Count 476 H Lymph % (Auto) [place] % (Auto) Lymph # (Auto) [place] # (Auto) Seg Neutrophils % Lymphocytes % (Manual) Seg Neutrophils # Seg Neutrophils # Man Lymphocytes # (Manual) D-Dimer ABG pH POC ABG pCO2 POC ABG pO2 ABG pO2 ABG HCO3 ABG O2 Saturation ABG Base Excess ABG Hemoglobin ABG Oxyhemoglobin ABG Sodium ABG Glucose Oxyhemoglobin Carboxyhemoglobin Sodium Potassium Carbon Dioxide 33 H BUN 30 H Creatinine 0.5 L Glucose 140 H POC Glucose 127 H Calcium Phosphorus Magnesium Lactate Dehydrogenase Triglycerides Arterial Blood Glucose Arterial Blood Ionized Calcium Urine WBC (Auto) Salicylates Acetaminophen 12/02/21 12/02/21 12/02/21 11:33 17:19 23:49 WBC RBC Hgb Hct MCH MCHC RDW Plt Count Lymph % (Auto) [place] % (Auto) Lymph # (Auto) [place] # (Auto) Seg Neutrophils % Lymphocytes % (Manual) Seg Neutrophils # Seg Neutrophils # Man Lymphocytes # (Manual) D-Dimer ABG pH POC ABG pCO2 POC ABG pO2 ABG pO2 ABG HCO3 ABG O2 Saturation ABG Base Excess ABG Hemoglobin ABG Oxyhemoglobin ABG Sodium ABG Glucose Oxyhemoglobin Carboxyhemoglobin Sodium Potassium Carbon Dioxide BUN Creatinine Glucose POC Glucose 118 H 139 H 140 H Calcium Phosphorus Magnesium Lactate Dehydrogenase Triglycerides Arterial Blood Glucose Arterial Blood Ionized Calcium Urine WBC (Auto) Salicylates Acetaminophen 12/03/21 12/03/21 12/03/21 04:52 04:52 05:03 WBC RBC 5.15 H Hgb Hct 44.2 H MCH 27 L MCHC RDW 17.8 H Plt Count 566 H Lymph % (Auto) [place] % (Auto) Lymph # (Auto) [place] # (Auto) Seg Neutrophils % Lymphocytes % (Manual) Seg Neutrophils # Seg Neutrophils # Man Lymphocytes # (Manual) D-Dimer ABG pH POC ABG pCO2 POC ABG pO2 ABG pO2 ABG HCO3 ABG O2 Saturation ABG Base Excess ABG Hemoglobin ABG Oxyhemoglobin ABG Sodium ABG Glucose Oxyhemoglobin Carboxyhemoglobin Sodium Potassium Carbon Dioxide BUN 22 H Creatinine 0.4 L Glucose 142 H POC Glucose 142 H Calcium Phosphorus Magnesium Lactate Dehydrogenase Triglycerides Arterial Blood Glucose Arterial Blood Ionized Calcium Urine WBC (Auto) Salicylates Acetaminophen 12/03/21 12/03/21 12/04/21 11:16 16:11 04:48 WBC 12.1 H RBC 5.58 H Hgb Hct 47.8 H MCH 26 L MCHC RDW 18.4 H Plt Count 576 H Lymph % (Auto) [place] % (Auto) Lymph # (Auto) [place] # (Auto) Seg Neutrophils % Lymphocytes % (Manual) Seg Neutrophils # Seg Neutrophils # Man Lymphocytes # (Manual) D-Dimer ABG pH POC ABG pCO2 POC ABG pO2 ABG pO2 ABG HCO3 ABG O2 Saturation ABG Base Excess ABG Hemoglobin ABG Oxyhemoglobin ABG Sodium ABG Glucose Oxyhemoglobin Carboxyhemoglobin Sodium Potassium Carbon Dioxide BUN Creatinine Glucose POC Glucose 147 H 140 H Calcium Phosphorus Magnesium Lactate Dehydrogenase Triglycerides Arterial Blood Glucose Arterial Blood Ionized Calcium Urine WBC (Auto) Salicylates Acetaminophen 12/04/21 12/04/21 12/04/21 04:48 05:42 11:54 WBC RBC Hgb Hct MCH MCHC RDW Plt Count Lymph % (Auto) [place] % (Auto) Lymph # (Auto) [place] # (Auto) Seg Neutrophils % Lymphocytes % (Manual) Seg Neutrophils # Seg Neutrophils # Man Lymphocytes # (Manual) D-Dimer ABG pH POC ABG pCO2 POC ABG pO2 ABG pO2 ABG HCO3 ABG O2 Saturation ABG Base Excess ABG Hemoglobin ABG Oxyhemoglobin ABG Sodium ABG Glucose Oxyhemoglobin Carboxyhemoglobin Sodium Potassium Carbon Dioxide BUN 19 H Creatinine 0.5 L Glucose 123 H POC Glucose 111 H 121 H Calcium Phosphorus Magnesium Lactate Dehydrogenase Triglycerides Arterial Blood Glucose Arterial Blood Ionized Calcium Urine WBC (Auto) Salicylates Acetaminophen 12/05/21 12/05/21 12/05/21 07:53 08:02 08:02 WBC 11.3 H RBC 5.94 H Hgb 15.3 H Hct 50.9 H MCH 26 L MCHC RDW 18.3 H Plt Count 611 H Lymph % (Auto) [place] % (Auto) Lymph # (Auto) [place] # (Auto) Seg Neutrophils % Lymphocytes % (Manual) Seg Neutrophils # Seg Neutrophils # Man Lymphocytes # (Manual) D-Dimer ABG pH POC ABG pCO2 POC ABG pO2 ABG pO2 ABG HCO3 ABG O2 Saturation ABG Base Excess ABG Hemoglobin ABG Oxyhemoglobin ABG Sodium ABG Glucose Oxyhemoglobin Carboxyhemoglobin Sodium Potassium Carbon Dioxide BUN 19 H Creatinine 0.5 L Glucose POC Glucose 112 H Calcium Phosphorus Magnesium Lactate Dehydrogenase Triglycerides Arterial Blood Glucose Arterial Blood Ionized Calcium Urine WBC (Auto) Salicylates Acetaminophen 12/05/21 12/05/21 12/06/21 11:10 15:59 07:27 WBC RBC Hgb Hct MCH MCHC RDW Plt Count Lymph % (Auto) [place] % (Auto) Lymph # (Auto) [place] # (Auto) Seg Neutrophils % Lymphocytes % (Manual) Seg Neutrophils # Seg Neutrophils # Man Lymphocytes # (Manual) D-Dimer ABG pH POC ABG pCO2 POC ABG pO2 ABG pO2 ABG HCO3 ABG O2 Saturation ABG Base Excess ABG Hemoglobin ABG Oxyhemoglobin ABG Sodium ABG Glucose Oxyhemoglobin Carboxyhemoglobin Sodium Potassium Carbon Dioxide BUN Creatinine Glucose POC Glucose 125 H 108 H 112 H Calcium Phosphorus Magnesium Lactate Dehydrogenase Triglycerides Arterial Blood Glucose Arterial Blood Ionized Calcium Urine WBC (Auto) Salicylates Acetaminophen Chest x-ray: report reviewed, image reviewed Additional Studies: CHEST 1 VIEW 12/06/21 INDICATION / CLINICAL INFORMATION: Pneumonia f/u STUDY TIME: 1120 COMPARISON: 12/01/2021 FINDINGS: SUPPORT DEVICES: None HEART / MEDIASTINUM: Mild cardiac prominence LUNGS / PLEURA: Poor degree of inspiration is seen. A mildly congested appearance is noted and there may be mild interstitial edema. Bibasilar atelectatic changes are noted. No pneumothorax. ADDITIONAL FINDINGS: No significant additional findings. CHEST 1 VIEW 12/01/2021 INDICATION / CLINICAL INFORMATION: follow up respiratory failure. COMPARISON: 11/30/2021 FINDINGS: SUPPORT DEVICES: Stable, satisfactory device positioning. HEART / MEDIASTINUM: Stable cardiomegaly. LUNGS / PLEURA: Persistence of left basilar pleural-parenchymal disease. The lungs are otherwise grossly clear. No pneumothorax. ADDITIONAL FINDINGS: No significant additional findings. IMPRESSION: 1. Stable appearance of the chest radiograph. Allied health notes reviewed: nursing
[2021-12-06] MEDS: BUDESONIDE 0.5 MG/2 ML NEBU IH SCH ×2 (09:49→22:23)
[2021-12-06] MEDS: ARFORMOTEROL 15 MCG/2 ML NEBU IH SCH ×2 (09:49→22:23)
--- NOTE | 2021-12-06 10:32 | Progress Note ---
Assessment and Plan Assessment and plan: This is a 81-year-old AA female with past medical history of CAD, CHF, pulmonary hypertension, COPD, and tobacco abuse admitted for acute hypoxemic respiratory failure 2/2 of bilateral pneumonia vs COPD exacerbation/pulmonary edema required intubation and ventilatory support. Acute Hypoxemic Respiratory Failure - Patient intubated in the ED on 11/18, extubated on 11/27 - Patient was reintubated on 11/27 due to stridor - 12/01 extubated - Stable on 4L NC this am, SPO2 above 92% - Wean O2 supplementation as tolerated Sepsis. Present on admission etiology secondary to pneumonia and UTI - Imagings shown bilateral opacities representing pulmonary edema vs pneumonia - WBCs as high as 15.6, now wnr - CRP and procal is normal - COVID swab neg - Urinalysis was significant for UTI. - B. cultures negative - Sputum culture +parisa Albicans - Patient completed IV antibiotic course COPD Exacerbation Bilateral Pneumonia - Chest x-ray shows bilateral pulmonary opacities possibly representing edema/atelectasis or pneumonia. - CT of the chest shows evidence of pulmonary hypertension with dense consolidation along the left lower lobe that is concerning for pneumonia. Mild interstitial pulmonary edema. Acute diastolic heart failure - 12/2020 Echo with a EF of 60- 65% - IV Lasix D/naren - Strict intake and output - Monitor and replace electrolytes as needed Hypertension - Patient SBP as in the 240s in the ED - S/p cardene gtt - PRN hydralazine for SBP greater than 160 H/o CAD H/o GERD - Passed bedside swallow, will start soft diet - Speech on consult - Continue PPI- Pepcid Urinary Retention - Briggs reinserted twice due to urinary retention - LAsix D/naren Hyperkalemia-improved - Trend BMP - Avoid nephrotoxic medications; Renally dose medications Agitation - Mentation was worse last evening - Seroquel and Buspar D/cd previously - PRN Haldol for agitation - Close monitoring of QTc - Avoid benzodiazepine to reduce the possibility of delirium - PRN analgesia for CPOT greater than 3 - Maintenance of sleep-wake cycle Elevated D-Dimer - BLE DVT negative - Lovenox added for DVT proph. - SCDs to bilateral lower extremities while in bed Urinary tract Infection Hospital Course to Date: 11/18: Patient was seen and examined in the ED. Patient is intubated and sedated on propofol and versed gtt, RASS -3 to -4. Patient is in hypertensive emergency this am, SBP in the 240s, cardene gtt was initiated, maintain SBP less than 160. Leukocytosis noted, UA significant for UTI. Lactic, procal, and CRP are normal. Patient remains afebrile, continue empiric IV abx for now. Tracheal aspirate ordered, blood culture is pending. Continue to f/u on culture data. 11/19: Patient remains intubated and sedated. Patient did not tolerate sedation vacation this am, became tachycardic, hypertensive, with elevated RR and SPO2 in the low 80s. Sedation back on, continue to wean sedation as tolerated for RASS goal of 0 to -2. Pateimt is off cardene gtt, PRN hydralazine for SPO2 above 160. Low K repleted, repeat labs in the am. 11/20: Remains on the vent and sedated, RASS -3. Plan to wean down on sedation, might need to add Seroquel if patient is not tolerating sedation. Hypernatremia and increased BUN/Cr. this am, patient is on lasix BID. Will discuss with [facility] to possibly hold or decreased IV lasix for now, FWF added for high Na. Urinary retention post briggs removal, bladder scan and straight cath per protocol. 11/21: Patient remains on the vent, unable to wean sedation at this time, Seroquel added. Titrate sedation as tolerated for RASS of 0 to -2. Briggs was kaila nserted overnight for urinary retention, kidney function is stable. 11/22: [facility] reduced FiO2. We will start weaning tomorrow. No acute events reported overnight. 11/23: Patient spiked a fever overnight and was cultured this morning. Attempted CPAP trial again today. An ABG obtained post trial which has been given to [facility]. Slight hypernatremia noted. 11/24: I updated patient's son today, Kwame Salamanca at [phone]. Lasix stopped today. Patient placed on CPAP trial. She lasted on CPAP all day yesterday and was rested overnight on assist control. Given Kayexalate today due to hyperkalemia. 11/25: Patient was on SBT today and was not arousable for a while and a CT head was obtained which showed no acute intracranial abnormality. Patient later became severely agitated and was switched back to assist control and placed back on sedation. Family updated today. Restarted home Coreg due to hypotension. 11/26: SBT today, Haldol as needed. Briggs was removed yesterday bladder scan x2 with urine output. Slight hypernatremia persists. Blood pressure better controlled. 11/27/2021: Patient was extubated by [facility] this morning. Patient was severely agitated and given 2 mg Ativan, SBP 200s and given labatalol x1 10mg, NJ tube placed and given PO BP medications. She had stridor and was given racemic epi. We wanted to place BiPAP but after consolation with Dr. Gallegos it was decided to intubate the patient. She was intubated by Deidra, RT and given etomidate, versed and fentanyl. CXR in process. On fentanyl and precedex gtt. 11/28: added buspar to help with agitation, restarted serqoul at lower dose. weaned fi02 today. 11/29: Remains on the vent and on sedation, fent and precedx gtts. D/w [facility] plan for possible SAT and SBT in the am, hold TF at 6am on 11/30 for possible SAT/SBT. 11/30: Patient mentation slightly better this am, still on predex and fentanyl gtt. However, easily arousable, following simple commands. Tolerated SBT trial for about 2hrs today then patient was placed back on a rate due to increased work of breathing and increased agitation. D/w [facility] seroquel increased to BID, plan to try SAT/SBT again the am. 12/01: CONY overnight. Patient mentation continue to improve. Tolerating SBT this am, possible extubation today if ABG is wnr. 12/02: Extubated yesterday, on 4L NC this SPO2 at 100%. Patient is awake following simple commands this am, however, she is confused. Spoke to patient's son, Kwame Salamanca. He was updated on patient's status. He reported that patient was very self sufficient prior to admit, with no neurological nor any psych issues that he knows of. All questions and concerns were voiced at this time. Will continue to monitor for now. D/w [facility] patient is stable for transfer to [facility] 12/03: Slight improvement in mentation this am, however still drowsy and disorientated. Will hold seroquel and Buspar for now. Patient is on ventimask this am, plan to wean O2 supplementation for SPO2 goal above 90%. Transfer order placed for IMCU 12/04: Mentation much better this am, remains on 4L NC. Hypertensive overnight, however per RN patient was NPO since NGT was accidently pulled out overnight. Patient passed bedside swallow this am. Will start patient on a soft diet. D/w CCM patient is stable for transfer to Telemetry. 12/05: Patient still requiring 4 L O2 via nasal cannula. Continue BiPAP at bedtime. Patient reports that she is on home O2 of 3 L. Continue duo nebs, LABA and inhaled corticosteroids. Brovana and Pulmicort. Continue gabapentin f or Neurontin. PT evaluation 12/06: Patient reportedly last evening approximately 7 PM had altered mentation with inappropriate speech. Patient now requiring restraints. Continue Haldol as needed. Check stat ABG. Repeat chest x-ray. Check CT scan of the head. Patient currently requiring 3 L nasal cannula. Patient currently requiring 3 L O2 via nasal cannula. History Interval history: No new issues overnight. Hospitalist Physical - Constitutional Vitals: Temp Pulse Resp BP Pulse Ox 97.7 F 77 18 188/72 96 12/06/21 07:29 12/06/21 07:29 12/06/21 07:29 12/06/21 07:29 12/06/21 07:29 General appearance: Present: no acute distress - EENT Eyes: Present: PERRL, EOM intact ENT: hearing intact, clear oral mucosa, dentition normal - Neck Neck: Present: supple, normal ROM - Respiratory Respiratory effort: normal Respiratory: bilateral: CTA - Cardiovascular Rhythm: regular Heart Sounds: Present: S1 & S2. Absent: gallop, rub - Extremities Extremities: no ischemia, No edema, Full ROM - Abdominal General gastrointestinal: soft, non-tender, non-distended, normal bowel sounds - Integumentary Integumentary: Present: clear, warm, dry - Neurologic Neurologic: CNII-XII intact, moves all extremities HEART Score - HEART Score Troponin: Troponin T < 0.010 ng/mL (0.00-0.029) 11/18/21 03:25 Results - Labs CBC & Chem 7: 12/05/21 08:02 12/05/21 08:02 Labs: Laboratory Last Values WBC 11.3 K/mm3 (4.5-11.0) H 12/05/21 08:02 RBC 5.94 M/mm3 (3.65-5.03) H 12/05/21 08:02 Hgb 15.3 gm/dl (10.1-14.3) H 12/05/21 08:02 Hct 50.9 % (30.3-42.9) H 12/05/21 08:02 MCV 86 fl (79-97) 12/05/21 08:02 MCH 26 pg (28-32) L 12/05/21 08:02 MCHC 30 % (30-34) 12/05/21 08:02 RDW 18.3 % (13.2-15.2) H 12/05/21 08:02 Plt Count 611 K/mm3 (140-440) H 12/05/21 08:02 Lymph % (Auto) 12.3 % (13.4-35.0) L 11/19/21 07:59 Crowley % (Auto) 9.6 % (0.0-7.3) H 11/19/21 07:59 Eos % (Auto) 0.7 % (0.0-4.3) 11/19/21 07:59 Baso % (Auto) 0.5 % (0.0-1.8) 11/19/21 07:59 Lymph # (Auto) 1.6 K/mm3 (1.2-5.4) 11/19/21 07:59 Crowley # (Auto) 1.2 K/mm3 (0.0-0.8) H 11/19/21 07:59 Eos # (Auto) 0.1 K/mm3 (0.0-0.4) 11/19/21 07:59 Baso # (Auto) 0.1 K/mm3 (0.0-0.1) 11/19/21 07:59 Add Manual Diff Complete 11/18/21 00:19 Total Counted 100 11/18/21 00:19 Seg Neutrophils % 76.9 % (40.0-70.0) H 11/19/21 07:59 Lymphocytes % (Manual) 4.0 % (13.4-35.0) L 11/18/21 00:19 Monocytes % (Manual) 2.0 % (0.0-7.3) 11/18/21 00:19 Nucleated RBC % Not Reportable 11/18/21 00:19 Seg Neutrophils # 9.7 K/mm3 (1.8-7.7) H 11/19/21 07:59 Seg Neutrophils # Man 14.7 K/mm3 (1.8-7.7) H 11/18/21 00:19 Band Neutrophils # 0.0 K/mm3 11/18/21 00:19 Lymphocytes # (Manual) 0.6 K/mm3 (1.2-5.4) L 11/18/21 00:19 Abs React Lymphs (Man) 0.0 K/mm3 11/18/21 00:19 Monocytes # (Manual) 0.3 K/mm3 (0.0-0.8) 11/18/21 00:19 Eosinophils # (Manual) 0.0 K/mm3 (0.0-0.4) 11/18/21 00:19 Basophils # (Manual) 0.0 K/mm3 (0.0-0.1) 11/18/21 00:19 Metamyelocytes # 0.0 K/mm3 11/18/21 00:19 Myelocytes # 0.0 K/mm3 11/18/21 00:19 Promyelocytes # 0.0 K/mm3 11/18/21 00:19 Blast Cells # 0.0 K/mm3 11/18/21 00:19 WBC Morphology Not Reportable 11/18/21 00:19 Hypersegmented Neuts Not Reportable 11/18/21 00:19 Hyposegmented Neuts Not Reportable 11/18/21 00:19 Hypogranular Neuts Not Reportable 11/18/21 00:19 Smudge Cells Not Reportable 11/18/21 00:19 Toxic Granulation Not Reportable 11/18/21 00:19 Toxic Vacuolation Not Reportable 11/18/21 00:19 Dohle Bodies Not Reportable 11/18/21 00:19 Pelger-Huet Anomaly Not Reportable 11/18/21 00:19 Luis Rods Not Reportable 11/18/21 00:19 Platelet Estimate Consistent w auto 11/18/21 00:19 Clumped Platelets Not Reportable 11/18/21 00:19 Plt Clumps, EDTA Not Reportable 11/18/21 00:19 Large Platelets Not Reportable 11/18/21 00:19 Giant Platelets Not Reportable 11/18/21 00:19 Platelet Satelliting Not Reportable 11/18/21 00:19 Plt Morphology Comment Not Reportable 11/18/21 00:19 RBC Morphology Not Reportable 11/18/21 00:19 Dimorphic RBCs Not Reportable 11/18/21 00:19 Polychromasia Not Reportable 11/18/21 00:19 Hypochromasia Not Reportable 11/18/21 00:19 Poikilocytosis Not Reportable 11/18/21 00:19 Anisocytosis 1+ 11/18/21 00:19 Microcytosis Not Reportable 11/18/21 00:19 Macrocytosis Few 11/18/21 00:19 Spherocytes Not Reportable 11/18/21 00:19 Pappenheimer Bodies Not Reportable 11/18/21 00:19 Sickle Cells Not Reportable 11/18/21 00:19 Target Cells Not Reportable 11/18/21 00:19 Tear Drop Cells Not Reportable 11/18/21 00:19 Ovalocytes Not Reportable 11/18/21 00:19 Helmet Cells Not Reportable 11/18/21 00:19 [place] Bodies Not Reportable 11/18/21 00:19 [place] Rings Not Reportable 11/18/21 00:19 Yarnell Cells Not Reportable 11/18/21 00:19 Bite Cells Not Reportable 11/18/21 00:19 Crenated Cell Not Reportable 11/18/21 00:19 Elliptocytes Not Reportable 11/18/21 00:19 Acanthocytes (Spur) Not Reportable 11/18/21 00:19 Rouleaux Not Reportable 11/18/21 00:19 Hemoglobin C Crystals Not Reportable 11/18/21 00:19 Schistocytes Not Reportable 11/18/21 00:19 Malaria parasites Not Reportable 11/18/21 00:19 Shahriar Bodies Not Reportable 11/18/21 00:19 Hem Pathologist Commnt No 11/18/21 00:19 PT 12.9 Sec. (12.2-14.9) 11/18/21 00:19 INR 0.88 (0.87-1.13) 11/18/21 00:19 APTT 29.2 Sec. (24.2-36.6) 11/18/21 00:19 D-Dimer 464.80 ng/mlDDU (0-234) H 11/18/21 05:15 ABG pH 7.380 pH Units (7.350-7.450) 12/01/21 11:42 POC ABG pCO2 60.0 mmHg (32.0-48.0) H 11/30/21 12:04 ABG pCO2 55.8 mm Hg 12/01/21 11:42 POC ABG pO2 68.3 mmHg (83-108) L 11/30/21 12:04 ABG pO2 71.0 mm Hg (80.0-90.0) L 12/01/21 11:42 POC ABG HCO3 32.9 11/30/21 12:04 ABG HCO3 32.3 mmol/L (20.0-26.0) H 12/01/21 11:42 ABG O2 Saturation 94.5 % (95.0-99.0) L 12/01/21 11:42 ABG O2 Content 16.8 (0.0-44) 12/01/21 11:42 POC ABG Base Excess 5.5 11/30/21 12:04 ABG Base Excess 5.7 mmol/L (-2.0-3.0) H 12/01/21 11:42 ABG Hemoglobin 12.9 gm/dl (12.0-16.0) 12/01/21 11:42 ABG Oxyhemoglobin 90.9 (94-98) L 11/30/21 12:04 ABG Carboxyhemoglobin 1.5 % (0.0-5.0) 12/01/21 11:42 ABG Methemoglobin 0.5 % (0.0-1.5) 12/01/21 11:42 ABG Sodium 145.1 mmol/L (136.0-145.0) H 11/30/21 12:04 ABG Potassium 4.0 mmol/L (3.40-4.50) 11/30/21 12:04 ABG Chloride 102.0 mmol/L (98-107) 11/30/21 12:04 ABG Glucose 122 mg/dL (65-95) H 11/30/21 12:04 Oxyhemoglobin 92.6 % (95.0-99.0) L 12/01/21 11:42 Carboxyhemoglobin 1.2 (0.5-1.5) 11/30/21 12:04 FiO2 40 % 12/01/21 11:42 FiO2 % 40 11/30/21 12:04 Sodium 137 mmol/L (137-145) 12/05/21 08:02 Potassium 4.5 mmol/L (3.6-5.0) 12/05/21 08:02 Chloride 99.7 mmol/L (98-107) 12/05/21 08:02 Carbon Dioxide 22 mmol/L (22-30) 12/05/21 08:02 Anion Gap 20 mmol/L 12/05/21 08:02 BUN 19 mg/dL (7-17) H 12/05/21 08:02 Creatinine 0.5 mg/dL (0.6-1.2) L 12/05/21 08:02 Estimated GFR > 60 ml/min 12/05/21 08:02 BUN/Creatinine Ratio 38 % 12/05/21 08:02 Glucose 94 mg/dL (65-100) 12/05/21 08:02 POC Glucose 112 mg/dL (70-105) H 12/06/21 07:27 Hemoglobin A1c 5.9 % (4-6) 11/19/21 07:59 Lactic Acid 1.40 mmol/L (0.7-2.0) 11/18/21 00:19 Calcium 10.1 mg/dL (8.4-10.2) 12/05/21 08:02 Phosphorus 3.80 mg/dL (2.5-4.5) 12/04/21 04:48 Magnesium 2.00 mg/dL (1.7-2.3) 12/04/21 04:48 Total Bilirubin 0.40 mg/dL (0.1-1.2) 11/18/21 00:19 Direct Bilirubin < 0.2 mg/dL (0-0.2) 11/18/21 00:19 Indirect Bilirubin 0.2 mg/dL 11/18/21 00:19 AST 22 units/L (5-40) 11/18/21 00:19 ALT 25 units/L (7-56) 11/18/21 00:19 Alkaline Phosphatase 99 units/L (35-129) 11/18/21 00:19 Ammonia 54.0 umol/L (25-60) 11/18/21 00:19 Lactate Dehydrogenase 275 units/L (91-180) H 11/18/21 05:15 Troponin T < 0.010 ng/mL (0.00-0.029) 11/18/21 03:25 C-Reactive Protein 0.70 mg/dL (0.00-1.30) 11/18/21 15:47 NT-Pro-B Natriuret Pep 867.7 pg/mL (0-900) 11/18/21 00:19 Total Protein 7.4 g/dL (6.3-8.2) 11/18/21 00:19 Albumin 4.0 g/dL (3.9-5) 11/18/21 00:19 Albumin/Globulin Ratio 1.2 % 11/18/21 00:19 Triglycerides 185 mg/dL (2-149) H 11/22/21 04:39 Lipase 13 units/L (13-60) 11/18/21 00:19 Procalcitonin 0.12 ng/mL (<0.15) 11/18/21 05:15 Arterial Blood Glucose 122 mg/dL (65-95) H 11/30/21 12:04 Arterial Blood Ionized Calcium 5.2 mg/dL (4.6-5.3) 11/29/21 03:51 Urine Color Yellow (Yellow) 11/23/21 12:24 Urine Turbidity Clear (Clear) 11/23/21 12:24 Urine pH 7.0 (5.0-7.0) 11/23/21 12:24 Ur Specific [place] 1.018 (1.003-1.030) 11/23/21 12:24 Urine Protein <15 mg/dl mg/dL (Negative) 11/23/21 12:24 Urine Glucose (UA) Neg mg/dL (Negative) 11/23/21 12:24 Urine Ketones Neg mg/dL (Negative) 11/23/21 12:24 Urine Blood Neg (Negative) 11/23/21 12:24 Urine Nitrite Neg (Negative) 11/23/21 12:24 Urine Bilirubin Neg (Negative) 11/23/21 12:24 Urine Urobilinogen 4.0 mg/dL (<2.0) 11/23/21 12:24 Ur Leukocyte Esterase Neg (Negative) 11/23/21 12:24 Urine WBC (Auto) 1.0 /HPF (0.0-6.0) 11/23/21 12:24 Urine RBC (Auto) 1.0 /HPF (0.0-6.0) 11/23/21 12:24 U Epithel Cells (Auto) 1.0 /HPF (0-13.0) 11/18/21 01:03 Hyaline Casts 3 /LPF 11/18/21 01:03 Urine Mucus Few /HPF 11/18/21 01:03 Salicylates < 0.3 mg/dL (2.8-20.0) L 11/18/21 00:19 Urine Opiates Screen Negative 11/18/21 01:03 Urine Methadone Screen Negative 11/18/21 01:03 Acetaminophen 5.0 ug/mL (10.0-30.0) L 11/18/21 00:19 Ur Barbiturates Screen Negative 11/18/21 01:03 Ur Phencyclidine Scrn Negative 11/18/21 01:03 Ur Amphetamines Screen Negative 11/18/21 01:03 U Benzodiazepines Scrn Negative 11/18/21 01:03 Urine Cocaine Screen Negative 11/18/21 01:03 U Marijuana (THC) Screen Negative 11/18/21 01:03 Drugs of Abuse Note Disclamer 11/18/21 01:03 Plasma/Serum Alcohol < 0.01 % (0-0.07) 11/18/21 00:19 Coronavirus (PCR) Negative (Negative) 11/18/21 Unknown Briggs/IV: Voiding Method Indwelling Catheter Active Medications - Current Medications Current Medications: Generic Name Dose Route Start Last Admin Trade Name Freq PRN Reason Stop Dose Admin Acetaminophen 650 mg 11/18/21 03:10 11/22/21 19:49 Acetaminophen 650 Mg Rect Supp MS 650 mg Q6H PRN Administration Pain MILD(1-3)/Fever >100.5/MONTIEL Albuterol 2.5 mg 12/03/21 12:16 Albuterol 2.5 Mg/3 Ml Nebu IH Q4HRT PRN Shortness Of Breath Amlodipine Besylate 10 mg 11/27/21 10:00 12/05/21 09:58 Amlodipine 10 Mg Tab PO 10 mg DAILY PAULINA Administration Arformoterol Tartrate 15 mcg 11/18/21 20:00 12/06/21 09:49 Arformoterol 15 Mcg/2 Ml Nebu IH 15 mcg Q12HRT PAULINA Administration Aspirin 81 mg 11/27/21 10:00 12/05/21 09:58 Aspirin Ec 81 Mg Tab PO 81 mg QDAY PAULINA Administration Budesonide 0.5 mg 11/18/21 20:00 12/06/21 09:49 Budesonide 0.5 Mg/2 Ml Nebu IH 0.5 mg Q12HRT PAULINA Administration Carvedilol 12.5 mg 11/25/21 13:00 12/05/21 22:50 Carvedilol 12.5 Mg Tab FEEDTUBE 12.5 mg BID PAULINA Administration Dextrose 50 ml 11/18/21 10:40 Dextrose 50% In Water (25gm) 50 Ml Syringe IV Q30MIN PRN Hypoglycemia Protocol Enoxaparin Sodium 40 mg 11/19/21 22:00 12/05/21 23:06 Enoxaparin 40 Mg/0.4 Ml Inj SUB-Q 40 mg QDAY@2200 PAULINA Administration Protocol Famotidine 20 mg 11/20/21 10:00 12/05/21 23:08 Famotidine 20 Mg Tab FEEDTUBE 20 mg BID PAULINA Administration Gabapentin 800 mg 12/01/21 12:00 12/05/21 23:08 Gabapentin 400 Mg Cap PO Not Given BID PAULINA Hydralazine HCl 10 mg 11/18/21 10:44 12/06/21 07:08 Hydralazine 20 Mg/1 Ml Inj IV 10 mg Q4HR PRN Administration Hypertension Hydrophilic Ointment 1 applic 11/18/21 15:26 Lip Therapy Vaseline TP Q2HR PRN Dry Lips Insulin Human Lispro 0 unit 12/04/21 16:30 12/06/21 01:16 Insulin Lispro 100 Unit/Ml SUB-Q Not Given ACHS [facility] Protocol Isosorbide Mononitrate 60 mg 12/04/21 15:00 12/05/21 09:58 Isosorbide Mononitrate Er 60 Mg Tab PO 60 mg QDAY PAULINA Administration Losartan Potassium 100 mg 12/05/21 10:00 12/05/21 09:58 Losartan 50 Mg Tab PO 100 mg QDAY PAULINA Administration Magnesium Hydroxide 30 ml 11/18/21 03:10 Magnesium Hydroxide (Mom) Oral Liqd Udc PO Q4H PRN Constipation Ondansetron HCl 4 mg 11/18/21 03:10 Ondansetron 4 Mg/2 Ml Inj IV Q8H PRN Nausea And Vomiting Oxycodone HCl 5 mg 11/27/21 09:50 Oxycodone 5 Mg Tab PO Q6H PRN Pain, Moderate (4-6) Senna/Docusate Sodium 1 tab 11/18/21 22:00 12/05/21 23:09 Sennosides/Docusate Sodium 8.6/50 Mg Tab FEEDTUBE Not Given BID PAULINA Tizanidine HCl 2 mg 12/04/21 22:00 12/05/21 23:07 Tizanidine Tab 4 Mg Tab PO 2 mg QHS PAULINA Administration Nutrition/Malnutrition Assess - Dietary Evaluation Nutrition/Malnutrition Findings: Nutrition Notes Start: 11/18/21 10:45 Freq: Status: Active Protocol: Document 12/03/21 14:28 ROSE (Rec: 12/03/21 14:37 [id number] Nutrition Notes Initial or Follow up Reassessment Current Diagnosis Coronary Artery Disease, Hypertension,Heart Failure, Respiratory Failure Other Pertinent Diagnosis Bilat pneu, UTI, COPD exacerbation Current Diet TF - Promote at 65ml/hr Labs/Tests Reviewed Pertinent Medications Reviewed Height 5 ft 8 in Weight 81.6 kg [place] Body Weight (kg) 63.63 BMI 27.3 Weight Status Overweight Subjective/Other Information Pt extubated on 12/01. Per RN, swallow evaluation scheduled for today. Pt tolerating TF at goal rate. Percent of energy/protein needs met: 97% energy 99% pro Burn Absent Trauma Absent #1 Nutrition Diagnosis Inadequate oral intake Diagnosis Progress(for reassessment Continues documentation) Is patient on ventilator? No Is Patient Ambulatory and/or Out of Bed No REE-([facility]-confined to bed) 1614.000 Calculation Used for Recommendations [facility] Additional Notes Pro needs 1.2-2g/k-163g/ day Fluid needs 1ml/kcal Nutrition Intervention Nutrition Support: Continue Promote at 65ml/hr with 50ml water flush q4h. Kcal 1,560 Protein (gm) 98 Carbohydrates (gm) 203 Fat (gm) 41 Fluid (mL) 1,309 Fiber (gm) 0 Goal #1 TF tolerance Goal #2 TF to meet at least 75% energy and pro needs Follow-Up By: 12/08/21 Additional Comments F/U: diet advancement vs continued TF, wt
[2021-12-06 12:04] LABS: ABG Base Excess 2.9 mmol/L (-2.0-3.0); ABG HCO3 27.1 mmol/L (20.0-26.0); ABG Methemoglobin 0.5 % (0.0-1.5); ABG Oxygen Saturation 95.9 % (95.0-99.0); ABG PCO2 40.3 mm Hg; ABG PH 7.446 pH Units (7.350-7.450); ABG PO2 75.9 mm Hg (80.0-90.0)
--- NOTE | 2021-12-06 12:06 | Cat Scan Report ---
CT HEAD WITHOUT CONTRAST INDICATION / CLINICAL INFORMATION: AMS. TECHNIQUE: Axial imaging performed from the skull apex through the skull base without the use of cont rast. Sagittal and coronal reformatted images. All CT scans at this location are performed using CT dose reduction for ALARA by means of automated exposure control. COMPARISON: 11/25/2021 FINDINGS: CEREBRAL PARENCHYMA: Mild diffuse volume loss and mild chronic microvascular ischemic disease in the white matter are unchanged. No acute parenchymal abnormality is appreciated. Basal ganglia calcificat ions are again noted. No chronic infarct. HEMORRHAGE: None. EXTRA-AXIAL SPACES: Normal in size and morphology for the patient's age. VENTRICULAR SYSTEM: Normal in size and morphology for the patient's age. MIDLINE SHIFT OR HERNIATION: None. CEREBELLUM / BRAINSTEM: No significant abnormality. CALVARIUM: No significant abnormality. ORBITS: Normal as visualized. PARANASAL SINUSES / MASTOID AIR CELLS: Normal as visualized. SOFT TISSUES of HEAD: No significant abnormality. ADDITIONAL FINDINGS: None. IMPRESSION: No acute intracranial abnormality. No significant change since 11/25/2021. Signer Name: Michael Mcpherson Jr, MD Signed: 12/06/2021 12:02 PM Workstation Name: [id number]
[2021-12-06] MEDS: FAMOTIDINE 20 MG TAB FEEDTUBE SCH ×2 (13:16→22:54)
[2021-12-06] MEDS: carvediloL 12.5 MG TAB FEEDTUBE SCH ×2 (13:16→22:53)
[2021-12-06] MEDS: ASPIRIN EC 81 MG TAB PO SCH (13:16)
[2021-12-06] MEDS: SENNOSIDES/DOCUSATE SODIUM 8.6/50 MG TAB FEEDTUBE SCH ×2 (13:17→22:54)
[2021-12-06] MEDS: GABAPENTIN 400 MG CAP PO SCH ×2 (13:17→22:53)
[2021-12-06] MEDS: amLODIPine 10 MG TAB PO SCH (13:17)
[2021-12-06] MEDS: LOSARTAN 50 MG TAB PO SCH (13:17)
--- NOTE | 2021-12-06 13:25 | XRay Report ---
CHEST 1 VIEW INDICATION / CLINICAL INFORMATION: Pneumonia f/u STUDY TIME: 1119 COMPARISON: 12/01/2021 FINDINGS: SUPPORT DEVICES: None HEART / MEDIASTINUM: Mild cardiac prominence LUNGS / PLEURA: Poor degree of inspiration is seen. A mildly congested appearance is noted and there may be mild interstitial edema. Bibasilar atelectatic changes are noted. No pneumothorax. ADDITIONAL FINDINGS: No significant additional findings. Signer Name: Arvind Chow MD Signed: 12/06/2021 1:21 PM Workstation Name: [id number]
[2021-12-06] MEDS: ENOXAPARIN 40 MG/0.4 ML INJ SUB-Q SCH (22:53)
[2021-12-06] MEDS: tiZANidine TAB 4 MG TAB PO SCH (22:54)
[2021-12-07] MEDS: INSULIN LISPRO 100 UNIT/ML SUB-Q SCH ×4 (09:30→22:00)
[2021-12-07] MEDS: FAMOTIDINE 20 MG TAB FEEDTUBE SCH ×2 (09:33→21:40)
[2021-12-07] MEDS: ASPIRIN EC 81 MG TAB PO SCH (09:33)
[2021-12-07] MEDS: LOSARTAN 50 MG TAB PO SCH (09:33)
[2021-12-07] MEDS: carvediloL 12.5 MG TAB FEEDTUBE SCH ×2 (09:33→21:40)
[2021-12-07] MEDS: SENNOSIDES/DOCUSATE SODIUM 8.6/50 MG TAB FEEDTUBE SCH ×2 (09:33→21:40)
[2021-12-07] MEDS: amLODIPine 10 MG TAB PO SCH (09:34)
[2021-12-07] MEDS: ARFORMOTEROL 15 MCG/2 ML NEBU IH SCH ×2 (09:51→21:57)
[2021-12-07] MEDS: BUDESONIDE 0.5 MG/2 ML NEBU IH SCH ×2 (09:52→21:57)
--- NOTE | 2021-12-07 18:38 | Progress Note ---
Assessment and Plan Assessment and plan: This is a 81-year-old AA female with past medical history of CAD, CHF, pulmonary hypertension, COPD, and tobacco abuse admitted for acute hypoxemic respiratory failure 2/2 of bilateral pneumonia vs COPD exacerbation/pulmonary edema required intubation and ventilatory support. Acute Hypoxemic Respiratory Failure - Patient intubated in the ED on 11/18, extubated on 11/27 - Patient was reintubated on 11/27 due to stridor - 12/01 extubated - Stable on 3L NC this am, SPO2 above 92% - Wean O2 supplementation as tolerated Sepsis. Present on admission etiology secondary to pneumonia and UTI - Imagings shown bilateral opacities representing pulmonary edema vs pneumonia - WBCs as high as 15.6, now wnr - CRP and procal is normal - COVID swab neg - Urinalysis was significant for UTI. Urine cultures less than 10,000 CFU - B. cultures negative - Sputum culture +parisa Albicans - Patient completed IV antibiotic course COPD Exacerbation Bilateral Pneumonia - Chest x-ray shows bilateral pulmonary opacities possibly representing edema/atelectasis or pneumonia. - CT of the chest shows evidence of pulmonary hypertension with dense consolidation along the left lower lobe that is concerning for pneumonia. Mild interstitial pulmonary edema. Acute diastolic heart failure - 12/2020 Echo with a EF of 60- 65% - IV Lasix D/naren - Strict intake and output - Monitor and replace electrolytes as needed Hypertension - Patient SBP as in the 240s in the ED - S/p cardene gtt - PRN hydralazine for SBP greater than 160 H/o CAD H/o GERD - Passed bedside swallow, will start soft diet - Speech on consult - Continue PPI- Pepcid Urinary Retention - Briggs reinserted twice due to urinary retention - LAsix D/naren Hyperkalemia-improved - Trend BMP - Avoid nephrotoxic medications; Renally dose medications Agitation -Remains very confused, restless and sedated -CT head negative. - Seroquel and Buspar D/cd previously - PRN Haldol for agitation - Close monitoring of QTc - Avoid benzodiazepine to reduce the possibility of delirium -Avoid narcotics and benzos - Maintenance of sleep-wake cycle Elevated D-Dimer - BLE DVT negative - Lovenox added for DVT proph. - SCDs to bilateral lower extremities while in bed Urinary tract Infection Hospital Course to Date: 11/18: Patient was seen and examined in the ED. Patient is intubated and sedated on propofol and versed gtt, RASS -3 to -4. Patient is in hypertensive emergency this am, SBP in the 240s, cardene gtt was initiated, maintain SBP less than 160. Leukocytosis noted, UA significant for UTI. Lactic, procal, and CRP are normal. Patient remains afebrile, continue empiric IV abx for now. Tracheal aspirate ordered, blood culture is pending. Continue to f/u on culture data. 11/19: Patient remains intubated and sedated. Patient did not tolerate sedation vacation this am, became tachycardic, hypertensive, with elevated RR and SPO2 in the low 80s. Sedation back on, continue to wean sedation as tolerated for RASS goal of 0 to -2. Pateimt is off cardene gtt, PRN hydralazine for SPO2 above 160. Low K repleted, repeat labs in the am. 11/20: Remains on the vent and sedated, RASS -3. Plan to wean down on sedation, might need to add Seroquel if patient is not tolerating sedation. Hypernatremia and increased BUN/Cr. this am, patient is on lasix BID. Will discuss with [facility] to possibly hold or decreased IV lasix for now, FWF added for high Na. Urinary retention post briggs removal, bladder scan and straight cath per protocol. 11/21: Patient remains on the vent, unable to wean sedation at this time, Seroquel added. Titrate sedation as tolerated for RASS of 0 to -2. Briggs was reinserted overnight for urinary retention, kidney function is stable. 11/22: [facility] reduced FiO2. We will start weaning tomorrow. No acute events r eported overnight. 11/23: Patient spiked a fever overnight and was cultured this morning. Attempte d CPAP trial again today. An ABG obtained post trial which has been given to [facility]. Slight hypernatremia noted. 11/24: I updated patient's son today, Kwame Salamanca at [phone]. Lasix stopped today. Patient placed on CPAP trial. She lasted on CPAP all day yesterday and was rested overnight on assist control. Given Kayexalate today due to hyperkalemia. 11/25: Patient was on SBT today and was not arousable for a while and a CT head was obtained which showed no acute intracranial abnormality. Patient later became severely agitated and was switched back to assist control and placed back on sedation. Family updated today. Restarted home Coreg due to hypotension. 11/26: SBT today, Haldol as needed. Briggs was removed yesterday bladder scan x2 with urine output. Slight hypernatremia persists. Blood pressure better controlled. 11/27/2021: Patient was extubated by [facility] this morning. Patient was severely agitated and given 2 mg Ativan, SBP 200s and given labatalol x1 10mg, NJ tube placed and given PO BP medications. She had stridor and was given racemic epi. We wanted to place BiPAP but after consolation with Dr. Gallegos it was decided to intubate the patient. She was intubated by Deidra, RT and given etomidate, versed and fentanyl. CXR in process. On fentanyl and precedex gtt. 11/28: added buspar to help with agitation, restarted serqoul at lower dose. weaned fi02 today. 11/29: Remains on the vent and on sedation, fent and precedx gtts. D/w [facility] plan for possible SAT and SBT in the am, hold TF at 6am on 11/30 for possible SAT/SBT. 11/30: Patient mentation slightly better this am, still on predex and fentanyl gtt. However, easily arousable, following simple commands. Tolerated SBT trial for about 2hrs today then patient was placed back on a rate due to increased work of breathing and increased agitation. D/w [facility] seroquel increased to BID, plan to try SAT/SBT again the am. 12/01: CONY overnight. Patient mentation continue to improve. Tolerating SBT this am, possible extubation today if ABG is wnr. 12/02: Extubated yesterday, on 4L NC this SPO2 at 100%. Patient is awake following simple commands this am, however, she is confused. Spoke to patient's son, Kwame Salamanca. He was updated on patient's status. He reported that patient was very self sufficient prior to admit, with no neurological nor any psych issues that he knows of. All questions and concerns were voiced at this time. Will continue to monitor for now. D/w [facility] patient is stable for transfer to [facility] 12/03: Slight improvement in mentation this am, however still drowsy and disorientated. Will hold seroquel and Buspar for now. Patient is on ventimask this am, plan to wean O2 supplementation for SPO2 goal above 90%. Transfer order placed for IMCU 12/04: Mentation much better this am, remains on 4L NC. Hypertensive overnight, however per RN patient was NPO since NGT was accidently pulled out overnight. Patient passed bedside swallow this am. Will start patient on a soft diet. D/w [facility] patient is stable for transfer to Telemetry. 12/05: Patient still requiring 4 L O2 via nasal cannula. Continue BiPAP at be dtime. Patient reports that she is on home O2 of 3 L. Continue duo nebs, LABA and inhaled corticosteroids. Brovana and Pulmicort. Continue gabapentin for Neurontin. PT evaluation 12/06: Patient reportedly last evening approximately 7 PM had altered mentation with inappropriate speech. Patient now requiring restraints. Continue Haldol as needed. Check stat ABG. Repeat chest x-ray. Check CT scan of the head. Patient currently requiring 3 L nasal cannula. Patient currently requiring 3 L O2 via nasal cannula. 12/07: Patient remains very confused, agitated needing bilateral distal restr aints. Needs placement, discussed with the case management. History Interval history: Patient remains very confused restless during needing wrist restraints. Remains on 3 L of O2. Hospitalist Physical - Constitutional Vitals: Temp Pulse Resp BP Pulse Ox 97.8 F 80 18 144/57 97 12/07/21 15:59 12/07/21 15:59 12/07/21 15:59 12/07/21 15:59 12/07/21 15:59 General appearance: Present: no acute distress, obese, other (Very confused, restless needing rest) - EENT Eyes: Present: PERRL ENT: other (Dry oral mucosa) - Neck Neck: Present: supple - Respiratory Respiratory effort: normal Respiratory: bilateral: CTA (Coarse breath sounds) - Cardiovascular Rhythm: regular - Extremities Extremities: No edema - Abdominal General gastrointestinal: soft, non-tender - Integumentary Integumentary: Absent: rash - Psychiatric Psychiatric: agitated, other (Confused) - Neurologic Neurologic: moves all extremities HEART Score - HEART Score Troponin: Troponin T < 0.010 ng/mL (0.00-0.029) 11/18/21 03:25 Results - Labs CBC & Chem 7: 12/05/21 08:02 12/05/21 08:02 Labs: Laboratory Last Values WBC 11.3 K/mm3 (4.5-11.0) H 12/05/21 08:02 RBC 5.94 M/mm3 (3.65-5.03) H 12/05/21 08:02 Hgb 15.3 gm/dl (10.1-14.3) H 12/05/21 08:02 Hct 50.9 % (30.3-42.9) H 12/05/21 08:02 MCV 86 fl (79-97) 12/05/21 08:02 MCH 26 pg (28-32) L 12/05/21 08:02 MCHC 30 % (30-34) 12/05/21 08:02 RDW 18.3 % (13.2-15.2) H 12/05/21 08:02 Plt Count 611 K/mm3 (140-440) H 12/05/21 08:02 Lymph % (Auto) 12.3 % (13.4-35.0) L 11/19/21 07:59 [place] % (Auto) 9.6 % (0.0-7.3) H 11/19/21 07:59 Eos % (Auto) 0.7 % (0.0-4.3) 11/19/21 07:59 Baso % (Auto) 0.5 % (0.0-1.8) 11/19/21 07:59 Lymph # (Auto) 1.6 K/mm3 (1.2-5.4) 11/19/21 07:59 [place] # (Auto) 1.2 K/mm3 (0.0-0.8) H 11/19/21 07:59 Eos # (Auto) 0.1 K/mm3 (0.0-0.4) 11/19/21 07:59 Baso # (Auto) 0.1 K/mm3 (0.0-0.1) 11/19/21 07:59 Add Manual Diff Complete 11/18/21 00:19 Total Counted 100 11/18/21 00:19 Seg Neutrophils % 76.9 % (40.0-70.0) H 11/19/21 07:59 Lymphocytes % (Manual) 4.0 % (13.4-35.0) L 11/18/21 00:19 Monocytes % (Manual) 2.0 % (0.0-7.3) 11/18/21 00:19 Nucleated RBC % Not Reportable 11/18/21 00:19 Seg Neutrophils # 9.7 K/mm3 (1.8-7.7) H 11/19/21 07:59 Seg Neutrophils # Man 14.7 K/mm3 (1.8-7.7) H 11/18/21 00:19 Band Neutrophils # 0.0 K/mm3 11/18/21 00:19 Lymphocytes # (Manual) 0.6 K/mm3 (1.2-5.4) L 11/18/21 00:19 Abs React Lymphs (Man) 0.0 K/mm3 11/18/21 00:19 Monocytes # (Manual) 0.3 K/mm3 (0.0-0.8) 11/18/21 00:19 Eosinophils # (Manual) 0.0 K/mm3 (0.0-0.4) 11/18/21 00:19 Basophils # (Manual) 0.0 K/mm3 (0.0-0.1) 11/18/21 00:19 Metamyelocytes # 0.0 K/mm3 11/18/21 00:19 Myelocytes # 0.0 K/mm3 11/18/21 00:19 Promyelocytes # 0.0 K/mm3 11/18/21 00:19 Blast Cells # 0.0 K/mm3 11/18/21 00:19 WBC Morphology Not Reportable 11/18/21 00:19 Hypersegmented Neuts Not Reportable 11/18/21 00:19 Hyposegmented Neuts Not Reportable 11/18/21 00:19 Hypogranular Neuts Not Reportable 11/18/21 00:19 Smudge Cells Not Reportable 11/18/21 00:19 Toxic Granulation Not Reportable 11/18/21 00:19 Toxic Vacuolation Not Reportable 11/18/21 00:19 Dohle Bodies Not Reportable 11/18/21 00:19 Pelger-Huet Anomaly Not Reportable 11/18/21 00:19 Luis Rods Not Reportable 11/18/21 00:19 Platelet Estimate Consistent w auto 11/18/21 00:19 Clumped Platelets Not Reportable 11/18/21 00:19 Plt Clumps, EDTA Not Reportable 11/18/21 00:19 Large Platelets Not Reportable 11/18/21 00:19 Giant Platelets Not Reportable 11/18/21 00:19 Platelet Satelliting Not Reportable 11/18/21 00:19 Plt Morphology Comment Not Reportable 11/18/21 00:19 RBC Morphology Not Reportable 11/18/21 00:19 Dimorphic RBCs Not Reportable 11/18/21 00:19 Polychromasia Not Reportable 11/18/21 00:19 Hypochromasia Not Reportable 11/18/21 00:19 Poikilocytosis Not Reportable 11/18/21 00:19 Anisocytosis 1+ 11/18/21 00:19 Microcytosis Not Reportable 11/18/21 00:19 Macrocytosis Few 11/18/21 00:19 Spherocytes Not Reportable 11/18/21 00:19 Pappenheimer Bodies Not Reportable 11/18/21 00:19 Sickle Cells Not Reportable 11/18/21 00:19 Target Cells Not Reportable 11/18/21 00:19 Tear Drop Cells Not Reportable 11/18/21 00:19 Ovalocytes Not Reportable 11/18/21 00:19 Helmet Cells Not Reportable 11/18/21 00:19 Connel[place]-Vale Bodies Not Reportable 11/18/21 00:19 [place] Rings Not Reportable 11/18/21 00:19 Yumi Cells Not Reportable 11/18/21 00:19 Bite Cells Not Reportable 11/18/21 00:19 Crenated Cell Not Reportable 11/18/21 00:19 Elliptocytes Not Reportable 11/18/21 00:19 Acanthocytes (Spur) Not Reportable 11/18/21 00:19 Rouleaux Not Reportable 11/18/21 00:19 Hemoglobin C Crystals Not Reportable 11/18/21 00:19 Schistocytes Not Reportable 11/18/21 00:19 Malaria parasites Not Reportable 11/18/21 00:19 Shahriar Bodies Not Reportable 11/18/21 00:19 Hem Pathologist Commnt No 11/18/21 00:19 PT 12.9 Sec. (12.2-14.9) 11/18/21 00:19 INR 0.88 (0.87-1.13) 11/18/21 00:19 APTT 29.2 Sec. (24.2-36.6) 11/18/21 00:19 D-Dimer 464.80 ng/mlDDU (0-234) H 11/18/21 05:15 ABG pH 7.446 pH Units (7.350-7.450) 12/06/21 11:45 POC ABG pCO2 60.0 mmHg (32.0-48.0) H 11/30/21 12:04 ABG pCO2 40.3 mm Hg 12/06/21 11:45 POC ABG pO2 68.3 mmHg (83-108) L 11/30/21 12:04 ABG pO2 75.9 mm Hg (80.0-90.0) L 12/06/21 11:45 POC ABG HCO3 32.9 11/30/21 12:04 ABG HCO3 27.1 mmol/L (20.0-26.0) H 12/06/21 11:45 ABG O2 Saturation 95.9 % (95.0-99.0) 12/06/21 11:45 ABG O2 Content 20.5 (0.0-44) 12/06/21 11:45 POC ABG Base Excess 5.5 11/30/21 12:04 ABG Base Excess 2.9 mmol/L (-2.0-3.0) 12/06/21 11:45 ABG Hemoglobin 15.6 gm/dl (12.0-16.0) 12/06/21 11:45 ABG Oxyhemoglobin 90.9 (94-98) L 11/30/21 12:04 ABG Carboxyhemoglobin 1.7 % (0.0-5.0) 12/06/21 11:45 ABG Methemoglobin 0.5 % (0.0-1.5) 12/06/21 11:45 ABG Sodium 145.1 mmol/L (136.0-145.0) H 11/30/21 12:04 ABG Potassium 4.0 mmol/L (3.40-4.50) 11/30/21 12:04 ABG Chloride 102.0 mmol/L (98-107) 11/30/21 12:04 ABG Glucose 122 mg/dL (65-95) H 11/30/21 12:04 Oxyhemoglobin 93.7 % (95.0-99.0) L 12/06/21 11:45 Carboxyhemoglobin 1.2 (0.5-1.5) 11/30/21 12:04 FiO2 32 % 12/06/21 11:45 FiO2 % 40 11/30/21 12:04 Sodium 137 mmol/L (137-145) 12/05/21 08:02 Potassium 4.5 mmol/L (3.6-5.0) 12/05/21 08:02 Chloride 99.7 mmol/L (98-107) 12/05/21 08:02 Carbon Dioxide 22 mmol/L (22-30) 12/05/21 08:02 Anion Gap 20 mmol/L 12/05/21 08:02 BUN 19 mg/dL (7-17) H 12/05/21 08:02 Creatinine 0.5 mg/dL (0.6-1.2) L 12/05/21 08:02 Estimated GFR > 60 ml/min 12/05/21 08:02 BUN/Creatinine Ratio 38 % 12/05/21 08:02 Glucose 94 mg/dL (65-100) 12/05/21 08:02 POC Glucose 97 mg/dL (70-105) 12/07/21 15:18 Hemoglobin A1c 5.9 % (4-6) 11/19/21 07:59 Lactic Acid 1.40 mmol/L (0.7-2.0) 11/18/21 00:19 Calcium 10.1 mg/dL (8.4-10.2) 12/05/21 08:02 Phosphorus 3.80 mg/dL (2.5-4.5) 12/04/21 04:48 Magnesium 2.00 mg/dL (1.7-2.3) 12/04/21 04:48 Total Bilirubin 0.40 mg/dL (0.1-1.2) 11/18/21 00:19 Direct Bilirubin < 0.2 mg/dL (0-0.2) 11/18/21 00:19 Indirect Bilirubin 0.2 mg/dL 11/18/21 00:19 AST 22 units/L (5-40) 11/18/21 00:19 ALT 25 units/L (7-56) 11/18/21 00:19 Alkaline Phosphatase 99 units/L (35-129) 11/18/21 00:19 Ammonia 54.0 umol/L (25-60) 11/18/21 00:19 Lactate Dehydrogenase 275 units/L (91-180) H 11/18/21 05:15 Troponin T < 0.010 ng/mL (0.00-0.029) 11/18/21 03:25 C-Reactive Protein 0.70 mg/dL (0.00-1.30) 11/18/21 15:47 NT-Pro-B Natriuret Pep 867.7 pg/mL (0-900) 11/18/21 00:19 Total Protein 7.4 g/dL (6.3-8.2) 11/18/21 00:19 Albumin 4.0 g/dL (3.9-5) 11/18/21 00:19 Albumin/Globulin Ratio 1.2 % 11/18/21 00:19 Triglycerides 185 mg/dL (2-149) H 11/22/21 04:39 Lipase 13 units/L (13-60) 11/18/21 00:19 Procalcitonin 0.12 ng/mL (<0.15) 11/18/21 05:15 Arterial Blood Glucose 122 mg/dL (65-95) H 11/30/21 12:04 Arterial Blood Ionized Calcium 5.2 mg/dL (4.6-5.3) 11/29/21 03:51 Urine Color Yellow (Yellow) 11/23/21 12:24 Urine Turbidity Clear (Clear) 11/23/21 12:24 Urine pH 7.0 (5.0-7.0) 11/23/21 12:24 Ur Specific [place] 1.018 (1.003-1.030) 11/23/21 12:24 Urine Protein <15 mg/dl mg/dL (Negative) 11/23/21 12:24 Urine Glucose (UA) Neg mg/dL (Negative) 11/23/21 12:24 Urine Ketones Neg mg/dL (Negative) 11/23/21 12:24 Urine Blood Neg (Negative) 11/23/21 12:24 Urine Nitrite Neg (Negative) 11/23/21 12:24 Urine Bilirubin Neg (Negative) 11/23/21 12:24 Urine Urobilinogen 4.0 mg/dL (<2.0) 11/23/21 12:24 Ur Leukocyte Esterase Neg (Negative) 11/23/21 12:24 Urine WBC (Auto) 1.0 /HPF (0.0-6.0) 11/23/21 12:24 Urine RBC (Auto) 1.0 /HPF (0.0-6.0) 11/23/21 12:24 U Epithel Cells (Auto) 1.0 /HPF (0-13.0) 11/18/21 01:03 Hyaline Casts 3 /LPF 11/18/21 01:03 Urine Mucus Few /HPF 11/18/21 01:03 Salicylates < 0.3 mg/dL (2.8-20.0) L 11/18/21 00:19 Urine Opiates Screen Negative 11/18/21 01:03 Urine Methadone Screen Negative 11/18/21 01:03 Acetaminophen 5.0 ug/mL (10.0-30.0) L 11/18/21 00:19 Ur Barbiturates Screen Negative 11/18/21 01:03 Ur Phencyclidine Scrn Negative 11/18/21 01:03 Ur Amphetamines Screen Negative 11/18/21 01:03 U Benzodiazepines Scrn Negative 11/18/21 01:03 Urine Cocaine Screen Negative 11/18/21 01:03 U Marijuana (THC) Screen Negative 11/18/21 01:03 Drugs of Abuse Note Disclamer 11/18/21 01:03 Plasma/Serum Alcohol < 0.01 % (0-0.07) 11/18/21 00:19 Coronavirus (PCR) Negative (Negative) 11/18/21 Unknown Briggs/IV: Voiding Method Indwelling Catheter Active Medications - Current Medications Current Medications: Generic Name Dose Route Start Last Admin Trade Name Freq PRN Reason Stop Dose Admin Acetaminophen 650 mg 11/18/21 03:10 11/22/21 19:49 Acetaminophen 650 Mg Rect Supp NC 650 mg Q6H PRN Administration Pain MILD(1-3)/Fever >100.5/MONTIEL Albuterol 2.5 mg 12/03/21 12:16 12/07/21 15:45 Albuterol 2.5 Mg/3 Ml Nebu IH 2.5 mg Q4HRT PRN Administration Shortness Of Breath Amlodipine Besylate 10 mg 11/27/21 10:00 12/07/21 09:34 Amlodipine 10 Mg Tab PO 10 mg DAILY PAULINA Administration Arformoterol Tartrate 15 mcg 11/18/21 20:00 12/07/21 09:51 Arformoterol 15 Mcg/2 Ml Nebu IH 15 mcg Q12HRT PAULINA Administration Aspirin 81 mg 11/27/21 10:00 12/07/21 09:33 Aspirin Ec 81 Mg Tab PO 81 mg QDAY PAULINA Administration Budesonide 0.5 mg 11/18/21 20:00 12/07/21 09:52 Budesonide 0.5 Mg/2 Ml Nebu IH 0.5 mg Q12HRT PAULINA Administration Carvedilol 12.5 mg 11/25/21 13:00 12/07/21 09:33 Carvedilol 12.5 Mg Tab FEEDTUBE 12.5 mg BID PAULINA Administration Dextrose 50 ml 11/18/21 10:40 Dextrose 50% In Water (25gm) 50 Ml Syringe IV Q30MIN PRN Hypoglycemia Protocol Enoxaparin Sodium 40 mg 11/19/21 22:00 12/06/21 22:53 Enoxaparin 40 Mg/0.4 Ml Inj SUB-Q 40 mg QDAY@2200 PAULINA Administration Protocol Famotidine 20 mg 11/20/21 10:00 12/07/21 09:33 Famotidine 20 Mg Tab FEEDTUBE 20 mg BID PAULINA Administration Hydralazine HCl 10 mg 11/18/21 10:44 12/06/21 07:08 Hydralazine 20 Mg/1 Ml Inj IV 10 mg Q4HR PRN Administration Hypertension Hydrophilic Ointment 1 applic 11/18/21 15:26 Lip Therapy Vaseline TP Q2HR PRN Dry Lips Insulin Human Lispro 0 unit 12/04/21 16:30 12/07/21 16:38 Insulin Lispro 100 Unit/Ml SUB-Q Not Given ACHS [facility] Protocol Isosorbide Mononitrate 60 mg 12/04/21 15:00 12/07/21 09:33 Isosorbide Mononitrate Er 60 Mg Tab PO 60 mg QDAY PAULINA Administration Losartan Potassium 100 mg 12/05/21 10:00 12/07/21 09:33 Losartan 50 Mg Tab PO 100 mg QDAY PAULINA Administration Magnesium Hydroxide 30 ml 11/18/21 03:10 Magnesium Hydroxide (Mom) Oral Liqd Udc PO Q4H PRN Constipation Senna/Docusate Sodium 1 tab 11/18/21 22:00 12/07/21 09:33 Sennosides/Docusate Sodium 8.6/50 Mg Tab FEEDTUBE 1 tab BID PAULINA Administration Nutrition/Malnutrition Assess - Dietary Evaluation Nutrition/Malnutrition Findings: Nutrition Notes Start: 11/18/21 10:45 Freq: Status: Active Protocol: Document 12/03/21 14:28 ADEELALL (Rec: 12/03/21 14:37 [facility] [id number]) Nutrition Notes Initial or Follow up Reassessment Current Diagnosis Coronary Artery Disease, Hypertension,Heart Failure, Respiratory Failure Other Pertinent Diagnosis Bilat pneu, UTI, COPD exacerbation Current Diet TF - Promote at 65ml/hr Labs/Tests Reviewed Pertinent Medications Reviewed Height 5 ft 8 in Weight 81.6 kg [place] Body Weight (kg) 63.63 BMI 27.3 Weight Status Overweight Subjective/Other Information Pt extubated on 12/01. Per RN, swallow evaluation scheduled for today. Pt tolerating TF at goal rate. Percent of energy/protein needs met: 97% energy 99% pro Burn Absent Trauma Absent #1 Nutrition Diagnosis Inadequate oral intake Diagnosis Progress(for reassessment Continues documentation) Is patient on ventilator? No Is Patient Ambulatory and/or Out of Bed No REE-([facility]-confined to bed) 1614.000 Calculation Used for Recommendations [facility] Additional Notes Pro needs 1.2-2g/k-163g/ day Fluid needs 1ml/kcal Nutrition Intervention Nutrition Support: Continue Promote at 65ml/hr with 50ml water flush q4h. Kcal 1,560 Protein (gm) 98 Carbohydrates (gm) 203 Fat (gm) 41 Fluid (mL) 1,309 Fiber (gm) 0 Goal #1 TF tolerance Goal #2 TF to meet at least 75% energy and pro needs Follow-Up By: 12/08/21 Additional Comments F/U: diet advancement vs continued TF, wt
--- NOTE | 2021-12-07 20:15 | Progress Note ---
Assessment and Plan 81-year-old female with known history of coronary artery disease, [place], CHF, pulmonary hypertension and COPD , GERD brought into the emergency room via EMS for altered mental status and unresponsiveness. Most of the history was gotten from the ER staff as patient was already intubated in the emergency room. According to EMS patient was said to be having difficulty breathing was minimally responsive but in respiratory distress initially. She is well-known to EMS service as she had been transported on multiple occasions for COPD exace rbations. Respiratory status was said to have worsened in route to the hospital and patient had been given Solu-Medrol and magnesium IV. However she was said to have developed pinpoint pupils and was given some Narcan with some improvement. Work-up in the emergency room today, labs were significant for leukocytosis of 15.6, D-dimer of 464. Urinalysis was significant for UTI. Chest x-ray shows bilateral pulmonary opacities possibly representing edema/atelectasis or pneumonia. CT of the chest shows evidence of pulmonary hypertension with dense consolidation along the left lower lobe that is concerning for pneumonia. Mild interstitial pulmonary edema. Patient awake. Confused. On 3 litres O2 via nasal canula. No acute respiratory distress. BIPAP stand by in the room. Patient afebrile. Has mild leukocytosis. Blood pressure 139/79, Pulse 87, respirations 18. Chest xray done 12/06/21 reported Poor degree of inspiration is seen. A mildly congested appearance is noted and there may be mild interstitial edema. Bibasilar atelectatic changes are noted. No pneumothorax. Patient presently on Brovanna/Budesonide aerosol treatments, Albuterol inhaler q 6 hours Prn for shortness of breath,S/C Lovenox, Famotidine, - Patient Problems (1) Altered mental status Current Visit: Yes Status: Acute Plan to address problem: Management as per primary care and neurology. (2) COPD exacerbation Current Visit: Yes Status: Acute Plan to address problem: O2 3 litres via nasal cannula Brovanna/Budesonide aerosol treatments q 12 hours Continue S/C Lovenox, Continue famotidine. (3) Pneumonia Current Visit: Yes Status: Acute Plan to address problem: If patient febrile, consider antibiotics. (4) Acute exacerbation of CHF (congestive heart failure) Current Visit: No Status: Acute Qualifiers: Heart failure type: combined systolic and diastolic Qualified Code(s): I50. 43 - Acute on chronic combined systolic (congestive) and diastolic (congestive) heart failure Plan to address problem: Management as per cardiology. (5) Hypertension Current Visit: No Status: Chronic Qualifiers: Hypertension type: essential hypertension Plan to address problem: Management as per primary care. Subjective Date of service: 12/07/21 Principal diagnosis: AE-COPD; AHRF; CHF (? new onset); CAP; CAD; Obesity; HTNsive Emergency Interval history: 81-year-old female with known history of coronary artery disease, [place], CHF, pulmonary hypertension and COPD , GERD brought into the emergency room via EMS for altered mental status and unresponsiveness. Most of the history was gotten from the ER staff as patient was already intubated in the emergency room. According to EMS patient was said to be having difficulty breathing was minimally responsive but in respiratory distress initially. She is well-known to EMS service as she had been transported on multiple occasions for COPD exacerbations. Respiratory status was said to have worsened in route to the hospital and patient had been given Solu-Medrol and magnesium IV. However she was said to have developed pinpoint pupils and was given some Narcan with some improvement. Work-up in the emergency room today, labs were significant for leukocytosis of 15.6, D-dimer of 464. Urinalysis was significant for UTI. Chest x-ray shows bilateral pulmonary opacities possibly representing jad a/atelectasis or pneumonia. CT of the chest shows evidence of pulmonary hypertension with dense cons olidation along the left lower lobe that is concerning for pneumonia. Mild interstitial pulmonary edema. Patient extubated and transfered to the telemetry. Patient awake. Confused. On 3 litres O2 via nasal cannula. No acute respiratory distress. BIPAP stand by in the room. Patient afebrile. Has mild leukocytosis. Blood pressure 139/79, Pulse 87, respirations 18. Chest xray done 12/06/21 reported Poor degree of inspiration is seen. A mildly congested appearance is noted and there may be mild interstitial edema. Bibasilar atelectatic changes are noted. No pneumothorax. Patient presently on Brovanna/Budesonide aerosol treatments, Albuterol inhaler q 6 hours Prn for shortness of breath,S/C Lovenox, Famotidine, Objective Vital Signs - 12hr 12/07/21 12/07/21 12/07/21 08:16 08:25 09:33 Temperature 98.0 F Pulse Rate 74 81 Pulse Rate [ Anterior Bilateral Throughout] Respiratory 18 Rate Respiratory Rate [Anterior Bilateral Throughout] Blood Pressure 138/61 131/65 Blood Pressure [Left] O2 Sat by Pulse 92 96 Oximetry 12/07/21 12/07/21 12/07/21 09:50 09:55 11:47 Temperature 98.3 F Pulse Rate 83 Pulse Rate [ 82 Anterior Bilateral Throughout] Respiratory 17 Rate Respiratory 16 Rate [Anterior Bilateral Throughout] Blood Pressure Blood Pressure 114/56 [Left] O2 Sat by Pulse 94 94 Oximetry 12/07/21 12/07/21 12/07/21 12:00 15:46 15:59 Temperature 97.8 F Pulse Rate 79 80 Pulse Rate [ 82 Anterior Bilateral Throughout] Respiratory 18 Rate Respiratory 16 Rate [Anterior Bilateral Throughout] Blood Pressure 144/57 Blood Pressure [Left] O2 Sat by Pulse 97 Oximetry 12/07/21 19:51 Temperature 97.9 F Pulse Rate 80 Pulse Rate [ Anterior Bilateral Throughout] Respiratory 18 Rate Respiratory Rate [Anterior Bilateral Throughout] Blood Pressure 136/80 Blood Pressure [Left] O2 Sat by Pulse 91 Oximetry Constitutional: no acute distress, alert, other (Confused) Eyes: non-icteric ENT: oropharynx moist Neck: supple, no lymphadenopathy, no JVD, other (large circumference) Effort: mildly labored Ascultation: Bilateral: diminished breath sounds, rhonchi (scant bases) Percussion: Bilateral: not dull Cardiovascular: regular rate and rhythm Gastrointestinal: normoactive bowel sounds, soft, non-tender, non-distended (protuberant) Integumentary: normal Extremities: no cyanosis, no edema, pulses normal, no ischemia or petechiae Neurologic: non-focal exam (grossly), pupils equal and round Psychiatric: other (mild delirium, Confused.) CBC and BMP: 12/05/21 08:02 12/05/21 08:02 ABG, PT/INR, D-dimer: ABG ABG pH 7.446 pH Units (7.350-7.450) 12/06/21 11:45 POC ABG pCO2 60.0 mmHg (32.0-48.0) H 11/30/21 12:04 ABG pCO2 40.3 mm Hg 12/06/21 11:45 POC ABG pO2 68.3 mmHg (83-108) L 11/30/21 12:04 ABG pO2 75.9 mm Hg (80.0-90.0) L 12/06/21 11:45 POC ABG HCO3 32.9 11/30/21 12:04 ABG O2 Saturation 95.9 % (95.0-99.0) 12/06/21 11:45 PT/INR, D-dimer PT 12.9 Sec. (12.2-14.9) 11/18/21 00:19 INR 0.88 (0.87-1.13) 11/18/21 00:19 D-Dimer 464.80 ng/mlDDU (0-234) H 11/18/21 05:15 Abnormal lab findings: Abnormal Labs 11/18/21 11/18/21 11/18/21 00:01 00:19 00:19 WBC 15.6 H RBC 5.59 H Hgb 14.8 H Hct 49.8 H MCH 27 L MCHC RDW 16.9 H Plt Count Lymph % (Auto) [place] % (Auto) Lymph # (Auto) [place] # (Auto) Seg Neutrophils % Lymphocytes % (Manual) 4.0 L Seg Neutrophils # Seg Neutrophils # Man 14.7 H Lymphocytes # (Manual) 0.6 L D-Dimer ABG pH POC ABG pCO2 POC ABG pO2 ABG pO2 ABG HCO3 ABG O2 Saturation ABG Base Excess ABG Hemoglobin ABG Oxyhemoglobin ABG Sodium ABG Glucose Oxyhemoglobin Carboxyhemoglobin Sodium Potassium Carbon Dioxide BUN Creatinine Glucose 148 H POC Glucose 151 H Calcium Phosphorus Magnesium Lactate Dehydrogenase Triglycerides Arterial Blood Glucose Arterial Blood Ionized Calcium Urine WBC (Auto) Salicylates Acetaminophen 11/18/21 11/18/21 11/18/21 00:19 00:19 00:19 WBC RBC Hgb Hct MCH MCHC RDW Plt Count Lymph % (Auto) [place] % (Auto) Lymph # (Auto) [place] # (Auto) Seg Neutrophils % Lymphocytes % (Manual) Seg Neutrophils # Seg Neutrophils # Man Lymphocytes # (Manual) D-Dimer ABG pH POC ABG pCO2 POC ABG pO2 ABG pO2 ABG HCO3 ABG O2 Saturation ABG Base Excess ABG Hemoglobin ABG Oxyhemoglobin ABG Sodium ABG Glucose Oxyhemoglobin Carboxyhemoglobin Sodium Potassium Carbon Dioxide BUN Creatinine Glucose POC Glucose Calcium Phosphorus Magnesium 2.50 H Lactate Dehydrogenase Triglycerides Arterial Blood Glucose Arterial Blood Ionized Calcium Urine WBC (Auto) Salicylates < 0.3 L Acetaminophen 5.0 L 11/18/21 11/18/21 11/18/21 01:03 02:00 05:15 WBC RBC Hgb Hct MCH MCHC RDW Plt Count Lymph % (Auto) [place] % (Auto) Lymph # (Auto) [place] # (Auto) Seg Neutrophils % Lymphocytes % (Manual) Seg Neutrophils # Seg Neutrophils # Man Lymphocytes # (Manual) D-Dimer 464.80 H ABG pH POC ABG pCO2 POC ABG pO2 ABG pO2 ABG HCO3 35.8 H ABG O2 Saturation ABG Base Excess 7.8 H ABG Hemoglobin ABG Oxyhemoglobin ABG Sodium ABG Glucose Oxyhemoglobin 91.9 L Carboxyhemoglobin Sodium Potassium Carbon Dioxide BUN Creatinine Glucose POC Glucose Calcium Phosphorus Magnesium Lactate Dehydrogenase Triglycerides Arterial Blood Glucose Arterial Blood Ionized Calcium Urine WBC (Auto) 16.0 H Salicylates Acetaminophen 11/18/21 11/18/21 11/18/21 05:15 15:47 15:47 WBC 13.5 H RBC 5.60 H Hgb 14.9 H Hct 49.1 H MCH 27 L MCHC RDW 17.3 H Plt Count Lymph % (Auto) 7.9 L [place] % (Auto) 10.1 H Lymph # (Auto) 1.1 L [place] # (Auto) 1.4 H Seg Neutrophils % 81.7 H Lymphocytes % (Manual) Seg Neutrophils # 11.0 H Seg Neutrophils # Man Lymphocytes # (Manual) D-Dimer ABG pH POC ABG pCO2 POC ABG pO2 ABG pO2 ABG HCO3 ABG O2 Saturation ABG Base Excess ABG Hemoglobin ABG Oxyhemoglobin ABG Sodium ABG Glucose Oxyhemoglobin Carboxyhemoglobin Sodium Potassium Carbon Dioxide BUN Creatinine Glucose 138 H POC Glucose Calcium Phosphorus Magnesium Lactate Dehydrogenase 275 H Triglycerides Arterial Blood Glucose Arterial Blood Ionized Calcium Urine WBC (Auto) Salicylates Acetaminophen 11/18/21 11/18/21 11/19/21 18:45 23:33 04:58 WBC RBC Hgb Hct MCH MCHC RDW Plt Count Lymph % (Auto) [place] % (Auto) Lymph # (Auto) [place] # (Auto) Seg Neutrophils % Lymphocytes % (Manual) Seg Neutrophils # Seg Neutrophils # Man Lymphocytes # (Manual) D-Dimer ABG pH POC ABG pCO2 POC ABG pO2 ABG pO2 ABG HCO3 ABG O2 Saturation ABG Base Excess ABG Hemoglobin ABG Oxyhemoglobin ABG Sodium ABG Glucose Oxyhemoglobin Carboxyhemoglobin Sodium Potassium Carbon Dioxide BUN Creatinine Glucose 130 H POC Glucose 132 H 113 H Calcium Phosphorus Magnesium Lactate Dehydrogenase Triglycerides Arterial Blood Glucose Arterial Blood Ionized Calcium Urine WBC (Auto) Salicylates Acetaminophen 11/19/21 11/19/21 11/19/21 07:59 07:59 08:55 WBC 12.7 H RBC 5.29 H Hgb Hct 45.5 H MCH 26 L MCHC RDW 17.4 H Plt Count Lymph % (Auto) 12.3 L [place] % (Auto) 9.6 H Lymph # (Auto) [place] # (Auto) 1.2 H Seg Neutrophils % 76.9 H Lymphocytes % (Manual) Seg Neutrophils # 9.7 H Seg Neutrophils # Man Lymphocytes # (Manual) D-Dimer ABG pH 7.518 H POC ABG pCO2 POC ABG pO2 ABG pO2 77.6 L ABG HCO3 30.1 H ABG O2 Saturation ABG Base Excess 6.9 H ABG Hemoglobin ABG Oxyhemoglobin ABG Sodium ABG Glucose Oxyhemoglobin Carboxyhemoglobin Sodium Potassium 3.1 L D Carbon Dioxide BUN Creatinine Glucose 115 H POC Glucose Calcium 8.1 L Phosphorus Magnesium Lactate Dehydrogenase Triglycerides Arterial Blood Glucose Arterial Blood Ionized Calcium Urine WBC (Auto) Salicylates Acetaminophen 11/19/21 11/19/21 11/20/21 11:33 16:22 04:20 WBC 13.9 H RBC 5.44 H Hgb Hct 49.3 H MCH 26 L MCHC 29 L RDW 18.3 H Plt Count Lymph % (Auto) [place] % (Auto) Lymph # (Auto) [place] # (Auto) Seg Neutrophils % Lymphocytes % (Manual) Seg Neutrophils # Seg Neutrophils # Man Lymphocytes # (Manual) D-Dimer ABG pH POC ABG pCO2 POC ABG pO2 ABG pO2 ABG HCO3 ABG O2 Saturation ABG Base Excess ABG Hemoglobin ABG Oxyhemoglobin ABG Sodium ABG Glucose Oxyhemoglobin Carboxyhemoglobin Sodium Potassium Carbon Dioxide BUN Creatinine Glucose POC Glucose 119 H 112 H Calcium Phosphorus Magnesium Lactate Dehydrogenase Triglycerides Arterial Blood Glucose Arterial Blood Ionized Calcium Urine WBC (Auto) Salicylates Acetaminophen 11/20/21 11/20/21 11/20/21 04:20 11:07 12:02 WBC RBC Hgb Hct MCH MCHC RDW Plt Count Lymph % (Auto) [place] % (Auto) Lymph # (Auto) [place] # (Auto) Seg Neutrophils % Lymphocytes % (Manual) Seg Neutrophils # Seg Neutrophils # Man Lymphocytes # (Manual) D-Dimer ABG pH 7.251 L POC ABG pCO2 POC ABG pO2 ABG pO2 66.3 L ABG HCO3 30.2 H ABG O2 Saturation 91.8 L ABG Base Excess ABG Hemoglobin ABG Oxyhemoglobin ABG Sodium ABG Glucose Oxyhemoglobin 89.4 L Carboxyhemoglobin Sodium 147 H Potassium Carbon Dioxide BUN 25 H Creatinine Glucose POC Glucose 118 H Calcium Phosphorus 6.40 H Magnesium Lactate Dehydrogenase Triglycerides Arterial Blood Glucose Arterial Blood Ionized Calcium Urine WBC (Auto) Salicylates Acetaminophen 11/20/21 11/21/21 11/21/21 17:31 00:07 04:44 WBC 14.0 H RBC 5.08 H Hgb Hct 44.7 H MCH 26 L MCHC 29 L RDW 17.8 H Plt Count Lymph % (Auto) [place] % (Auto) Lymph # (Auto) [place] # (Auto) Seg Neutrophils % Lymphocytes % (Manual) Seg Neutrophils # Seg Neutrophils # Man Lymphocytes # (Manual) D-Dimer ABG pH POC ABG pCO2 POC ABG pO2 ABG pO2 ABG HCO3 ABG O2 Saturation ABG Base Excess ABG Hemoglobin ABG Oxyhemoglobin ABG Sodium ABG Glucose Oxyhemoglobin Carboxyhemoglobin Sodium Potassium Carbon Dioxide BUN Creatinine Glucose POC Glucose 139 H 147 H Calcium Phosphorus Magnesium Lactate Dehydrogenase Triglycerides Arterial Blood Glucose Arterial Blood Ionized Calcium Urine WBC (Auto) Salicylates Acetaminophen 11/21/21 11/21/21 11/21/21 04:44 06:06 11:45 WBC RBC Hgb Hct MCH MCHC RDW Plt Count Lymph % (Auto) [place] % (Auto) Lymph # (Auto) [place] # (Auto) Seg Neutrophils % Lymphocytes % (Manual) Seg Neutrophils # Seg Neutrophils # Man Lymphocytes # (Manual) D-Dimer ABG pH POC ABG pCO2 POC ABG pO2 ABG pO2 ABG HCO3 ABG O2 Saturation ABG Base Excess ABG Hemoglobin ABG Oxyhemoglobin ABG Sodium ABG Glucose Oxyhemoglobin Carboxyhemoglobin Sodium Potassium Carbon Dioxide BUN 20 H Creatinine Glucose 157 H POC Glucose 158 H 119 H Calcium Phosphorus Magnesium Lactate Dehydrogenase Triglycerides Arterial Blood Glucose Arterial Blood Ionized Calcium Urine WBC (Auto) Salicylates Acetaminophen 11/21/21 11/21/21 11/22/21 11:50 16:54 00:03 WBC RBC Hgb Hct MCH MCHC RDW Plt Count Lymph % (Auto) [place] % (Auto) Lymph # (Auto) [place] # (Auto) Seg Neutrophils % Lymphocytes % (Manual) Seg Neutrophils # Seg Neutrophils # Man Lymphocytes # (Manual) D-Dimer ABG pH POC ABG pCO2 POC ABG pO2 ABG pO2 61.8 L ABG HCO3 35.2 H ABG O2 Saturation 92.8 L ABG Base Excess 8.1 H ABG Hemoglobin ABG Oxyhemoglobin ABG Sodium ABG Glucose Oxyhemoglobin 90.6 L Carboxyhemoglobin Sodium Potassium Carbon Dioxide BUN Creatinine Glucose POC Glucose 149 H 133 H Calcium Phosphorus Magnesium Lactate Dehydrogenase Triglycerides Arterial Blood Glucose Arterial Blood Ionized Calcium Urine WBC (Auto) Salicylates Acetaminophen 11/22/21 11/22/21 11/22/21 04:39 04:39 04:39 WBC 14.1 H RBC Hgb Hct 43.4 H MCH 26 L MCHC RDW 17.9 H Plt Count Lymph % (Auto) [place] % (Auto) Lymph # (Auto) [place] # (Auto) Seg Neutrophils % Lymphocytes % (Manual) Seg Neutrophils # Seg Neutrophils # Man Lymphocytes # (Manual) D-Dimer ABG pH POC ABG pCO2 POC ABG pO2 ABG pO2 ABG HCO3 ABG O2 Saturation ABG Base Excess ABG Hemoglobin ABG Oxyhemoglobin ABG Sodium ABG Glucose Oxyhemoglobin Carboxyhemoglobin Sodium Potassium Carbon Dioxide 33 H BUN Creatinine Glucose 152 H POC Glucose Calcium Phosphorus Magnesium Lactate Dehydrogenase Triglycerides 185 H Arterial Blood Glucose Arterial Blood Ionized Calcium Urine WBC (Auto) Salicylates Acetaminophen 11/22/21 11/22/21 11/22/21 05:02 10:56 11:31 WBC RBC Hgb Hct MCH MCHC RDW Plt Count Lymph % (Auto) [place] % (Auto) Lymph # (Auto) [place] # (Auto) Seg Neutrophils % Lymphocytes % (Manual) Seg Neutrophils # Seg Neutrophils # Man Lymphocytes # (Manual) D-Dimer ABG pH POC ABG pCO2 POC ABG pO2 ABG pO2 55.3 L ABG HCO3 39.4 H ABG O2 Saturation 89.5 L ABG Base Excess 11.7 H ABG Hemoglobin ABG Oxyhemoglobin ABG Sodium ABG Glucose Oxyhemoglobin 87.2 L Carboxyhemoglobin Sodium Potassium Carbon Dioxide BUN Creatinine Glucose POC Glucose 158 H 116 H Calcium Phosphorus Magnesium Lactate Dehydrogenase Triglycerides Arterial Blood Glucose Arterial Blood Ionized Calcium Urine WBC (Auto) Salicylates Acetaminophen 11/22/21 11/22/21 11/23/21 17:29 23:22 04:49 WBC 13.6 H RBC 5.18 H Hgb Hct 45.6 H MCH 25 L MCHC 29 L RDW 17.5 H Plt Count Lymph % (Auto) [place] % (Auto) Lymph # (Auto) [place] # (Auto) Seg Neutrophils % Lymphocytes % (Manual) Seg Neutrophils # Seg Neutrophils # Man Lymphocytes # (Manual) D-Dimer ABG pH POC ABG pCO2 POC ABG pO2 ABG pO2 ABG HCO3 ABG O2 Saturation ABG Base Excess ABG Hemoglobin ABG Oxyhemoglobin ABG Sodium ABG Glucose Oxyhemoglobin Carboxyhemoglobin Sodium Potassium Carbon Dioxide BUN Creatinine Glucose POC Glucose 129 H 171 H Calcium Phosphorus Magnesium Lactate Dehydrogenase Triglycerides Arterial Blood Glucose Arterial Blood Ionized Calcium Urine WBC (Auto) Salicylates Acetaminophen 11/23/21 11/23/21 11/23/21 04:49 11:53 16:22 WBC RBC Hgb Hct MCH MCHC RDW Plt Count Lymph % (Auto) [place] % (Auto) Lymph # (Auto) [place] # (Auto) Seg Neutrophils % Lymphocytes % (Manual) Seg Neutrophils # Seg Neutrophils # Man Lymphocytes # (Manual) D-Dimer ABG pH POC ABG pCO2 POC ABG pO2 ABG pO2 61.8 L ABG HCO3 40.9 H ABG O2 Saturation 93.4 L ABG Base Excess 14.6 H ABG Hemoglobin 6.9 L ABG Oxyhemoglobin ABG Sodium ABG Glucose Oxyhemoglobin 90.2 L Carboxyhemoglobin Sodium 146 H Potassium Carbon Dioxide 36 H BUN 21 H Creatinine Glucose 155 H POC Glucose 166 H Calcium Phosphorus Magnesium Lactate Dehydrogenase Triglycerides Arterial Blood Glucose Arterial Blood Ionized Calcium Urine WBC (Auto) Salicylates Acetaminophen 11/23/21 11/23/21 11/24/21 17:11 23:07 05:03 WBC RBC Hgb Hct MCH MCHC RDW Plt Count Lymph % (Auto) [place] % (Auto) Lymph # (Auto) [place] # (Auto) Seg Neutrophils % Lymphocytes % (Manual) Seg Neutrophils # Seg Neutrophils # Man Lymphocytes # (Manual) D-Dimer ABG pH POC ABG pCO2 POC ABG pO2 ABG pO2 ABG HCO3 ABG O2 Saturation ABG Base Excess ABG Hemoglobin ABG Oxyhemoglobin ABG Sodium ABG Glucose Oxyhemoglobin Carboxyhemoglobin Sodium Potassium Carbon Dioxide BUN Creatinine Glucose POC Glucose 142 H 197 H 183 H Calcium Phosphorus Magnesium Lactate Dehydrogenase Triglycerides Arterial Blood Glucose Arterial Blood Ionized Calcium Urine WBC (Auto) Salicylates Acetaminophen 11/24/21 11/24/21 11/24/21 08:33 08:33 09:00 WBC RBC Hgb Hct 43.6 H MCH 26 L MCHC RDW 18.0 H Plt Count Lymph % (Auto) [place] % (Auto) Lymph # (Auto) [place] # (Auto) Seg Neutrophils % Lymphocytes % (Manual) Seg Neutrophils # Seg Neutrophils # Man Lymphocytes # (Manual) D-Dimer ABG pH POC ABG pCO2 POC ABG pO2 ABG pO2 69.1 L ABG HCO3 40.1 H ABG O2 Saturation 93.2 L ABG Base Excess 11.9 H ABG Hemoglobin ABG Oxyhemoglobin ABG Sodium ABG Glucose Oxyhemoglobin 90.3 L Carboxyhemoglobin Sodium Potassium 5.3 H D Carbon Dioxide 36 H BUN 25 H Creatinine 0.5 L Glucose 185 H POC Glucose Calcium Phosphorus Magnesium Lactate Dehydrogenase Triglycerides Arterial Blood Glucose Arterial Blood Ionized Calcium Urine WBC (Auto) Salicylates Acetaminophen 11/24/21 11/24/21 11/25/21 12:00 18:08 00:50 WBC RBC Hgb Hct MCH MCHC RDW Plt Count Lymph % (Auto) [place] % (Auto) Lymph # (Auto) [place] # (Auto) Seg Neutrophils % Lymphocytes % (Manual) Seg Neutrophils # Seg Neutrophils # Man Lymphocytes # (Manual) D-Dimer ABG pH POC ABG pCO2 POC ABG pO2 ABG pO2 67.3 L ABG HCO3 41.6 H 42.7 H ABG O2 Saturation 94.5 L ABG Base Excess 12.3 H 14.7 H ABG Hemoglobin ABG Oxyhemoglobin ABG Sodium ABG Glucose Oxyhemoglobin 93.1 L 91.6 L Carboxyhemoglobin Sodium Potassium Carbon Dioxide BUN Creatinine Glucose POC Glucose 168 H Calcium Phosphorus Magnesium Lactate Dehydrogenase Triglycerides Arterial Blood Glucose Arterial Blood Ionized Calcium Urine WBC (Auto) Salicylates Acetaminophen 11/25/21 11/25/21 11/25/21 04:57 04:57 14:18 WBC RBC 5.13 H Hgb Hct 45.1 H MCH 26 L MCHC RDW 17.7 H Plt Count Lymph % (Auto) [place] % (Auto) Lymph # (Auto) [place] # (Auto) Seg Neutrophils % Lymphocytes % (Manual) Seg Neutrophils # Seg Neutrophils # Man Lymphocytes # (Manual) D-Dimer ABG pH POC ABG pCO2 POC ABG pO2 ABG pO2 65.1 L ABG HCO3 41.7 H ABG O2 Saturation 94.2 L ABG Base Excess 13.4 H ABG Hemoglobin ABG Oxyhemoglobin ABG Sodium ABG Glucose Oxyhemoglobin 91.3 L Carboxyhemoglobin Sodium 146 H Potassium Carbon Dioxide 38 H BUN 26 H Creatinine 0.5 L Glucose 210 H POC Glucose Calcium Phosphorus Magnesium Lactate Dehydrogenase Triglycerides Arterial Blood Glucose Arterial Blood Ionized Calcium Urine WBC (Auto) Salicylates Acetaminophen 11/25/21 11/26/21 11/26/21 19:22 04:28 04:28 WBC RBC 5.05 H Hgb Hct 44.0 H MCH 26 L MCHC RDW 17.6 H Plt Count Lymph % (Auto) [place] % (Auto) Lymph # (Auto) [place] # (Auto) Seg Neutrophils % Lymphocytes % (Manual) Seg Neutrophils # Seg Neutrophils # Man Lymphocytes # (Manual) D-Dimer ABG pH POC ABG pCO2 POC ABG pO2 ABG pO2 ABG HCO3 ABG O2 Saturation ABG Base Excess ABG Hemoglobin ABG Oxyhemoglobin ABG Sodium ABG Glucose Oxyhemoglobin Carboxyhemoglobin Sodium 146 H Potassium Carbon Dioxide 38 H BUN 30 H Creatinine Glucose 124 H POC Glucose 151 H Calcium 10.5 H Phosphorus Magnesium Lactate Dehydrogenase Triglycerides Arterial Blood Glucose Arterial Blood Ionized Calcium Urine WBC (Auto) Salicylates Acetaminophen 11/26/21 11/26/21 11/27/21 05:50 10:28 08:31 WBC 12.4 H RBC 5.62 H Hgb 14.6 H Hct 48.7 H MCH 26 L MCHC RDW 17.9 H Plt Count 469 H Lymph % (Auto) [place] % (Auto) Lymph # (Auto) [place] # (Auto) Seg Neutrophils % Lymphocytes % (Manual) Seg Neutrophils # Seg Neutrophils # Man Lymphocytes # (Manual) D-Dimer ABG pH POC ABG pCO2 POC ABG pO2 ABG pO2 66.5 L ABG HCO3 39.6 H ABG O2 Saturation 92.9 L ABG Base Excess 11.4 H ABG Hemoglobin 16.8 H ABG Oxyhemoglobin ABG Sodium ABG Glucose Oxyhemoglobin 90.3 L Carboxyhemoglobin Sodium Potassium Carbon Dioxide BUN Creatinine Glucose POC Glucose 121 H Calcium Phosphorus Magnesium Lactate Dehydrogenase Triglycerides Arterial Blood Glucose Arterial Blood Ionized Calcium Urine WBC (Auto) Salicylates Acetaminophen 11/27/21 11/27/21 11/27/21 08:31 09:46 11:49 WBC RBC Hgb Hct MCH MCHC RDW Plt Count Lymph % (Auto) [place] % (Auto) Lymph # (Auto) [place] # (Auto) Seg Neutrophils % Lymphocytes % (Manual) Seg Neutrophils # Seg Neutrophils # Man Lymphocytes # (Manual) D-Dimer ABG pH POC ABG pCO2 POC ABG pO2 ABG pO2 ABG HCO3 ABG O2 Saturation ABG Base Excess ABG Hemoglobin ABG Oxyhemoglobin ABG Sodium ABG Glucose Oxyhemoglobin Carboxyhemoglobin Sodium 150 H Potassium Carbon Dioxide 33 H BUN 31 H Creatinine Glucose 135 H POC Glucose 140 H 153 H Calcium 11.0 H Phosphorus Magnesium Lactate Dehydrogenase Triglycerides Arterial Blood Glucose Arterial Blood Ionized Calcium Urine WBC (Auto) Salicylates Acetaminophen 11/27/21 11/27/21 11/27/21 14:16 17:14 23:25 WBC RBC Hgb Hct MCH MCHC RDW Plt Count Lymph % (Auto) [place] % (Auto) Lymph # (Auto) [place] # (Auto) Seg Neutrophils % Lymphocytes % (Manual) Seg Neutrophils # Seg Neutrophils # Man Lymphocytes # (Manual) D-Dimer ABG pH 7.485 H POC ABG pCO2 48.7 H POC ABG pO2 74.5 L ABG pO2 ABG HCO3 ABG O2 Saturation ABG Base Excess ABG Hemoglobin ABG Oxyhemoglobin ABG Sodium 145.5 H ABG Glucose 153 H Oxyhemoglobin Carboxyhemoglobin 1.6 H Sodium Potassium Carbon Dioxide BUN Creatinine Glucose POC Glucose 142 H 123 H Calcium Phosphorus Magnesium Lactate Dehydrogenase Triglycerides Arterial Blood Glucose 153 H Arterial Blood Ionized Calcium 5.4 H Urine WBC (Auto) Salicylates Acetaminophen 11/28/21 11/28/21 11/28/21 03:38 03:38 05:16 WBC RBC 5.05 H Hgb Hct 43.6 H MCH 26 L MCHC RDW 17.8 H Plt Count Lymph % (Auto) [place] % (Auto) Lymph # (Auto) [place] # (Auto) Seg Neutrophils % Lymphocytes % (Manual) Seg Neutrophils # Seg Neutrophils # Man Lymphocytes # (Manual) D-Dimer ABG pH POC ABG pCO2 POC ABG pO2 ABG pO2 ABG HCO3 ABG O2 Saturation ABG Base Excess ABG Hemoglobin ABG Oxyhemoglobin ABG Sodium ABG Glucose Oxyhemoglobin Carboxyhemoglobin Sodium 150 H Potassium Carbon Dioxide 32 H BUN 51 H Creatinine Glucose 143 H POC Glucose 138 H Calcium 10.5 H Phosphorus Magnesium Lactate Dehydrogenase Triglycerides Arterial Blood Glucose Arterial Blood Ionized Calcium Urine WBC (Auto) Salicylates Acetaminophen 11/28/21 11/28/21 11/29/21 17:01 23:51 03:51 WBC RBC Hgb Hct MCH MCHC RDW Plt Count Lymph % (Auto) [place] % (Auto) Lymph # (Auto) [place] # (Auto) Seg Neutrophils % Lymphocytes % (Manual) Seg Neutrophils # Seg Neutrophils # Man Lymphocytes # (Manual) D-Dimer ABG pH POC ABG pCO2 54.1 H POC ABG pO2 70.6 L ABG pO2 ABG HCO3 ABG O2 Saturation ABG Base Excess ABG Hemoglobin ABG Oxyhemoglobin 93.1 L ABG Sodium ABG Glucose 144 H Oxyhemoglobin Carboxyhemoglobin Sodium Potassium Carbon Dioxide BUN Creatinine Glucose POC Glucose 145 H 130 H Calcium Phosphorus Magnesium Lactate Dehydrogenase Triglycerides Arterial Blood Glucose 144 H Arterial Blood Ionized Calcium Urine WBC (Auto) Salicylates Acetaminophen 11/29/21 11/29/21 11/29/21 05:51 05:51 12:09 WBC 11.1 H RBC Hgb Hct MCH 26 L MCHC RDW 17.8 H Plt Count Lymph % (Auto) [place] % (Auto) Lymph # (Auto) [place] # (Auto) Seg Neutrophils % Lymphocytes % (Manual) Seg Neutrophils # Seg Neutrophils # Man Lymphocytes # (Manual) D-Dimer ABG pH POC ABG pCO2 POC ABG pO2 ABG pO2 ABG HCO3 ABG O2 Saturation ABG Base Excess ABG Hemoglobin ABG Oxyhemoglobin ABG Sodium ABG Glucose Oxyhemoglobin Carboxyhemoglobin Sodium Potassium Carbon Dioxide 31 H BUN 42 H Creatinine Glucose 133 H POC Glucose 157 H Calcium Phosphorus Magnesium Lactate Dehydrogenase Triglycerides Arterial Blood Glucose Arterial Blood Ionized Calcium Urine WBC (Auto) Salicylates Acetaminophen 11/29/21 11/30/21 11/30/21 17:27 00:23 04:42 WBC RBC 5.05 H Hgb Hct 43.6 H MCH 26 L MCHC RDW 17.5 H Plt Count Lymph % (Auto) [place] % (Auto) Lymph # (Auto) [place] # (Auto) Seg Neutrophils % Lymphocytes % (Manual) Seg Neutrophils # Seg Neutrophils # Man Lymphocytes # (Manual) D-Dimer ABG pH POC ABG pCO2 POC ABG pO2 ABG pO2 ABG HCO3 ABG O2 Saturation ABG Base Excess ABG Hemoglobin ABG Oxyhemoglobin ABG Sodium ABG Glucose Oxyhemoglobin Carboxyhemoglobin Sodium Potassium Carbon Dioxide BUN Creatinine Glucose POC Glucose 164 H 192 H Calcium Phosphorus Magnesium Lactate Dehydrogenase Triglycerides Arterial Blood Glucose Arterial Blood Ionized Calcium Urine WBC (Auto) Salicylates Acetaminophen 11/30/21 11/30/21 11/30/21 04:42 11:27 12:04 WBC RBC Hgb Hct MCH MCHC RDW Plt Count Lymph % (Auto) [place] % (Auto) Lymph # (Auto) [place] # (Auto) Seg Neutrophils % Lymphocytes % (Manual) Seg Neutrophils # Seg Neutrophils # Man Lymphocytes # (Manual) D-Dimer ABG pH POC ABG pCO2 60.0 H POC ABG pO2 68.3 L ABG pO2 ABG HCO3 ABG O2 Saturation ABG Base Excess ABG Hemoglobin ABG Oxyhemoglobin 90.9 L ABG Sodium 145.1 H ABG Glucose 122 H Oxyhemoglobin Carboxyhemoglobin Sodium Potassium Carbon Dioxide BUN 32 H Creatinine 0.5 L Glucose 178 H POC Glucose 156 H Calcium Phosphorus Magnesium Lactate Dehydrogenase Triglycerides Arterial Blood Glucose 122 H Arterial Blood Ionized Calcium Urine WBC (Auto) Salicylates Acetaminophen 11/30/21 11/30/21 12/01/21 17:35 23:51 04:00 WBC 13.8 H RBC Hgb Hct MCH 26 L MCHC RDW 17.6 H Plt Count 455 H Lymph % (Auto) [place] % (Auto) Lymph # (Auto) [place] # (Auto) Seg Neutrophils % Lymphocytes % (Manual) Seg Neutrophils # Seg Neutrophils # Man Lymphocytes # (Manual) D-Dimer ABG pH POC ABG pCO2 POC ABG pO2 ABG pO2 ABG HCO3 ABG O2 Saturation ABG Base Excess ABG Hemoglobin ABG Oxyhemoglobin ABG Sodium ABG Glucose Oxyhemoglobin Carboxyhemoglobin Sodium Potassium Carbon Dioxide BUN Creatinine Glucose POC Glucose 124 H 158 H Calcium Phosphorus Magnesium Lactate Dehydrogenase Triglycerides Arterial Blood Glucose Arterial Blood Ionized Calcium Urine WBC (Auto) Salicylates Acetaminophen 12/01/21 12/01/21 12/01/21 04:00 06:03 11:13 WBC RBC Hgb Hct MCH MCHC RDW Plt Count Lymph % (Auto) [place] % (Auto) Lymph # (Auto) [place] # (Auto) Seg Neutrophils % Lymphocytes % (Manual) Seg Neutrophils # Seg Neutrophils # Man Lymphocytes # (Manual) D-Dimer ABG pH POC ABG pCO2 POC ABG pO2 ABG pO2 ABG HCO3 ABG O2 Saturation ABG Base Excess ABG Hemoglobin ABG Oxyhemoglobin ABG Sodium ABG Glucose Oxyhemoglobin Carboxyhemoglobin Sodium Potassium Carbon Dioxide BUN 36 H Creatinine 0.5 L Glucose 188 H POC Glucose 178 H 121 H Calcium Phosphorus Magnesium Lactate Dehydrogenase Triglycerides Arterial Blood Glucose Arterial Blood Ionized Calcium Urine WBC (Auto) Salicylates Acetaminophen 12/01/21 12/01/21 12/01/21 11:42 16:54 23:43 WBC RBC Hgb Hct MCH MCHC RDW Plt Count Lymph % (Auto) [place] % (Auto) Lymph # (Auto) [place] # (Auto) Seg Neutrophils % Lymphocytes % (Manual) Seg Neutrophils # Seg Neutrophils # Man Lymphocytes # (Manual) D-Dimer ABG pH POC ABG pCO2 POC ABG pO2 ABG pO2 71.0 L ABG HCO3 32.3 H ABG O2 Saturation 94.5 L ABG Base Excess 5.7 H ABG Hemoglobin ABG Oxyhemoglobin ABG Sodium ABG Glucose Oxyhemoglobin 92.6 L Carboxyhemoglobin Sodium Potassium Carbon Dioxide BUN Creatinine Glucose POC Glucose 129 H 115 H Calcium Phosphorus Magnesium Lactate Dehydrogenase Triglycerides Arterial Blood Glucose Arterial Blood Ionized Calcium Urine WBC (Auto) Salicylates Acetaminophen 12/02/21 12/02/21 12/02/21 04:55 04:55 05:19 WBC RBC Hgb Hct MCH 26 L MCHC RDW 18.1 H Plt Count 476 H Lymph % (Auto) [place] % (Auto) Lymph # (Auto) [place] # (Auto) Seg Neutrophils % Lymphocytes % (Manual) Seg Neutrophils # Seg Neutrophils # Man Lymphocytes # (Manual) D-Dimer ABG pH POC ABG pCO2 POC ABG pO2 ABG pO2 ABG HCO3 ABG O2 Saturation ABG Base Excess ABG Hemoglobin ABG Oxyhemoglobin ABG Sodium ABG Glucose Oxyhemoglobin Carboxyhemoglobin Sodium Potassium Carbon Dioxide 33 H BUN 30 H Creatinine 0.5 L Glucose 140 H POC Glucose 127 H Calcium Phosphorus Magnesium Lactate Dehydrogenase Triglycerides Arterial Blood Glucose Arterial Blood Ionized Calcium Urine WBC (Auto) Salicylates Acetaminophen 12/02/21 12/02/21 12/02/21 11:33 17:19 23:49 WBC RBC Hgb Hct MCH MCHC RDW Plt Count Lymph % (Auto) [place] % (Auto) Lymph # (Auto) [place] # (Auto) Seg Neutrophils % Lymphocytes % (Manual) Seg Neutrophils # Seg Neutrophils # Man Lymphocytes # (Manual) D-Dimer ABG pH POC ABG pCO2 POC ABG pO2 ABG pO2 ABG HCO3 ABG O2 Saturation ABG Base Excess ABG Hemoglobin ABG Oxyhemoglobin ABG Sodium ABG Glucose Oxyhemoglobin Carboxyhemoglobin Sodium Potassium Carbon Dioxide BUN Creatinine Glucose POC Glucose 118 H 139 H 140 H Calcium Phosphorus Magnesium Lactate Dehydrogenase Triglycerides Arterial Blood Glucose Arterial Blood Ionized Calcium Urine WBC (Auto) Salicylates Acetaminophen 12/03/21 12/03/21 12/03/21 04:52 04:52 05:03 WBC RBC 5.15 H Hgb Hct 44.2 H MCH 27 L MCHC RDW 17.8 H Plt Count 566 H Lymph % (Auto) [place] % (Auto) Lymph # (Auto) [place] # (Auto) Seg Neutrophils % Lymphocytes % (Manual) Seg Neutrophils # Seg Neutrophils # Man Lymphocytes # (Manual) D-Dimer ABG pH POC ABG pCO2 POC ABG pO2 ABG pO2 ABG HCO3 ABG O2 Saturation ABG Base Excess ABG Hemoglobin ABG Oxyhemoglobin ABG Sodium ABG Glucose Oxyhemoglobin Carboxyhemoglobin Sodium Potassium Carbon Dioxide BUN 22 H Creatinine 0.4 L Glucose 142 H POC Glucose 142 H Calcium Phosphorus Magnesium Lactate Dehydrogenase Triglycerides Arterial Blood Glucose Arterial Blood Ionized Calcium Urine WBC (Auto) Salicylates Acetaminophen 12/03/21 12/03/21 12/04/21 11:16 16:11 04:48 WBC 12.1 H RBC 5.58 H Hgb Hct 47.8 H MCH 26 L MCHC RDW 18.4 H Plt Count 576 H Lymph % (Auto) [place] % (Auto) Lymph # (Auto) [place] # (Auto) Seg Neutrophils % Lymphocytes % (Manual) Seg Neutrophils # Seg Neutrophils # Man Lymphocytes # (Manual) D-Dimer ABG pH POC ABG pCO2 POC ABG pO2 ABG pO2 ABG HCO3 ABG O2 Saturation ABG Base Excess ABG Hemoglobin ABG Oxyhemoglobin ABG Sodium ABG Glucose Oxyhemoglobin Carboxyhemoglobin Sodium Potassium Carbon Dioxide BUN Creatinine Glucose POC Glucose 147 H 140 H Calcium Phosphorus Magnesium Lactate Dehydrogenase Triglycerides Arterial Blood Glucose Arterial Blood Ionized Calcium Urine WBC (Auto) Salicylates Acetaminophen 12/04/21 12/04/21 12/04/21 04:48 05:42 11:54 WBC RBC Hgb Hct MCH MCHC RDW Plt Count Lymph % (Auto) [place] % (Auto) Lymph # (Auto) [place] # (Auto) Seg Neutrophils % Lymphocytes % (Manual) Seg Neutrophils # Seg Neutrophils # Man Lymphocytes # (Manual) D-Dimer ABG pH POC ABG pCO2 POC ABG pO2 ABG pO2 ABG HCO3 ABG O2 Saturation ABG Base Excess ABG Hemoglobin ABG Oxyhemoglobin ABG Sodium ABG Glucose Oxyhemoglobin Carboxyhemoglobin Sodium Potassium Carbon Dioxide BUN 19 H Creatinine 0.5 L Glucose 123 H POC Glucose 111 H 121 H Calcium Phosphorus Magnesium Lactate Dehydrogenase Triglycerides Arterial Blood Glucose Arterial Blood Ionized Calcium Urine WBC (Auto) Salicylates Acetaminophen 12/05/21 12/05/21 12/05/21 07:53 08:02 08:02 WBC 11.3 H RBC 5.94 H Hgb 15.3 H Hct 50.9 H MCH 26 L MCHC RDW 18.3 H Plt Count 611 H Lymph % (Auto) [place] % (Auto) Lymph # (Auto) [place] # (Auto) Seg Neutrophils % Lymphocytes % (Manual) Seg Neutrophils # Seg Neutrophils # Man Lymphocytes # (Manual) D-Dimer ABG pH POC ABG pCO2 POC ABG pO2 ABG pO2 ABG HCO3 ABG O2 Saturation ABG Base Excess ABG Hemoglobin ABG Oxyhemoglobin ABG Sodium ABG Glucose Oxyhemoglobin Carboxyhemoglobin Sodium Potassium Carbon Dioxide BUN 19 H Creatinine 0.5 L Glucose POC Glucose 112 H Calcium Phosphorus Magnesium Lactate Dehydrogenase Triglycerides Arterial Blood Glucose Arterial Blood Ionized Calcium Urine WBC (Auto) Salicylates Acetaminophen 12/05/21 12/05/21 12/06/21 11:10 15:59 07:27 WBC RBC Hgb Hct MCH MCHC RDW Plt Count Lymph % (Auto) [place] % (Auto) Lymph # (Auto) [place] # (Auto) Seg Neutrophils % Lymphocytes % (Manual) Seg Neutrophils # Seg Neutrophils # Man Lymphocytes # (Manual) D-Dimer ABG pH POC ABG pCO2 POC ABG pO2 ABG pO2 ABG HCO3 ABG O2 Saturation ABG Base Excess ABG Hemoglobin ABG Oxyhemoglobin ABG Sodium ABG Glucose Oxyhemoglobin Carboxyhemoglobin Sodium Potassium Carbon Dioxide BUN Creatinine Glucose POC Glucose 125 H 108 H 112 H Calcium Phosphorus Magnesium Lactate Dehydrogenase Triglycerides Arterial Blood Glucose Arterial Blood Ionized Calcium Urine WBC (Auto) Salicylates Acetaminophen 12/06/21 12/06/21 12/06/21 11:45 11:56 16:26 WBC RBC Hgb Hct MCH MCHC RDW Plt Count Lymph % (Auto) [place] % (Auto) Lymph # (Auto) [place] # (Auto) Seg Neutrophils % Lymphocytes % (Manual) Seg Neutrophils # Seg Neutrophils # Man Lymphocytes # (Manual) D-Dimer ABG pH POC ABG pCO2 POC ABG pO2 ABG pO2 75.9 L ABG HCO3 27.1 H ABG O2 Saturation ABG Base Excess ABG Hemoglobin ABG Oxyhemoglobin ABG Sodium ABG Glucose Oxyhemoglobin 93.7 L Carboxyhemoglobin Sodium Potassium Carbon Dioxide BUN Creatinine Glucose POC Glucose 125 H 139 H Calcium Phosphorus Magnesium Lactate Dehydrogenase Triglycerides Arterial Blood Glucose Arterial Blood Ionized Calcium Urine WBC (Auto) Salicylates Acetaminophen 12/06/21 12/06/21 12/07/21 21:48 22:12 08:49 WBC RBC Hgb Hct MCH MCHC RDW Plt Count Lymph % (Auto) [place] % (Auto) Lymph # (Auto) [place] # (Auto) Seg Neutrophils % Lymphocytes % (Manual) Seg Neutrophils # Seg Neutrophils # Man Lymphocytes # (Manual) D-Dimer ABG pH POC ABG pCO2 POC ABG pO2 ABG pO2 ABG HCO3 ABG O2 Saturation ABG Base Excess ABG Hemoglobin ABG Oxyhemoglobin ABG Sodium ABG Glucose Oxyhemoglobin Carboxyhemoglobin Sodium Potassium Carbon Dioxide BUN Creatinine Glucose POC Glucose 130 H 129 H 129 H Calcium Phosphorus Magnesium Lactate Dehydrogenase Triglycerides Arterial Blood Glucose Arterial Blood Ionized Calcium Urine WBC (Auto) Salicylates Acetaminophen 12/07/21 11:38 WBC RBC Hgb Hct MCH MCHC RDW Plt Count Lymph % (Auto) [place] % (Auto) Lymph # (Auto) [place] # (Auto) Seg Neutrophils % Lymphocytes % (Manual) Seg Neutrophils # Seg Neutrophils # Man Lymphocytes # (Manual) D-Dimer ABG pH POC ABG pCO2 POC ABG pO2 ABG pO2 ABG HCO3 ABG O2 Saturation ABG Base Excess ABG Hemoglobin ABG Oxyhemoglobin ABG Sodium ABG Glucose Oxyhemoglobin Carboxyhemoglobin Sodium Potassium Carbon Dioxide BUN Creatinine Glucose POC Glucose 146 H Calcium Phosphorus Magnesium Lactate Dehydrogenase Triglycerides Arterial Blood Glucose Arterial Blood Ionized Calcium Urine WBC (Auto) Salicylates Acetaminophen Allied health notes reviewed: nursing
[2021-12-07] MEDS: ENOXAPARIN 40 MG/0.4 ML INJ SUB-Q SCH (21:40)
[2021-12-08] MEDS: INSULIN LISPRO 100 UNIT/ML SUB-Q SCH ×2 (08:08→20:12)
[2021-12-08] MEDS: SENNOSIDES/DOCUSATE SODIUM 8.6/50 MG TAB FEEDTUBE SCH ×2 (10:03→21:47)
[2021-12-08] MEDS: ASPIRIN EC 81 MG TAB PO SCH (10:03)
[2021-12-08] MEDS: carvediloL 12.5 MG TAB FEEDTUBE SCH ×2 (10:04→21:49)
[2021-12-08] MEDS: LOSARTAN 50 MG TAB PO SCH (10:04)
[2021-12-08] MEDS: FAMOTIDINE 20 MG TAB FEEDTUBE SCH ×2 (10:04→21:47)
[2021-12-08] MEDS: amLODIPine 10 MG TAB PO SCH (10:04)
--- NOTE | 2021-12-08 17:56 | Progress Note ---
Assessment and Plan Assessment and plan: This is a 81-year-old AA female with past medical history of CAD, CHF, pulmonary hypertension, COPD, and tobacco abuse admitted for acute hypoxemic respiratory failure 2/2 of bilateral pneumonia vs COPD exacerbation/pulmonary edema required intubation and ventilatory support. Acute Hypoxemic Respiratory Failure - Patient intubated in the ED on 11/18, extubated on 11/27 - Patient was reintubated on 11/27 due to stridor - 12/01 extubated - Stable on 3L NC this am, SPO2 above 92% - Wean O2 supplementation as tolerated Sepsis. Present on admission etiology secondary to pneumonia and UTI - Imagings shown bilateral opacities representing pulmonary edema vs pneumonia - WBCs as high as 15.6, now wnr -Initially had low-grade fever and then resolved - CRP and procal is normal - COVID swab neg - Urinalysis was significant for UTI. Urine cultures less than 10,000 CFU - B. cultures negative - Sputum culture +parisa Albicans - Patient completed IV antibiotic course COPD Exacerbation Currently no wheezing Bilateral Pneumonia - Chest x-ray shows bilateral pulmonary opacities possibly representing erin ma/atelectasis or pneumonia. - CT of the chest shows evidence of pulmonary hypertension with dense c onsolidation along the left lower lobe that is concerning for pneumonia. Mild interstitial pulmonary edema. Acute diastolic heart failure - 12/2020 Echo with a EF of 60- 65% - IV Lasix D/naren - Strict intake and output - Monitor and replace electrolytes as needed Hypertension - Patient SBP as in the 240s in the ED - S/p cardene gtt - PRN hydralazine for SBP greater than 160 H/o CAD H/o GERD - Passed bedside swallow, will start soft diet - Speech on consult - Continue PPI- Pepcid Urinary Retention - Briggs reinserted twice due to urinary retention - LAsix D/naren Hyperkalemia-improved - Trend BMP - Avoid nephrotoxic medications; Renally dose medications Encephalopathy with confusion and agitation -Remains very confused and agitated needing wrist restraints Regarding the family/son, she was functioning normally mentally and physically prior to this admission. -CT head negative. - Seroquel and Buspar D/cd previously - PRN Haldol for agitation - Close monitoring of QTc - Avoid benzodiazepine to reduce the possibility of delirium -Avoid narcotics and benzos - Maintenance of sleep-wake cycle Elevated D-Dimer - BLE DVT negative - Lovenox added for DVT proph. - SCDs to bilateral lower extremities while in bed Hospital Course to Date: 11/18: Patient was seen and examined in the ED. Patient is intubated and sedated on propofol and versed gtt, RASS -3 to -4. Patient is in hypertensive emergency this am, SBP in the 240s, cardene gtt was initiated, maintain SBP less than 160. Leukocytosis noted, UA significant for UTI. Lactic, procal, and CRP are normal. Patient remains afebrile, continue empiric IV abx for now. Tracheal aspirate ordered, blood culture is pending. Continue to f/u on culture data. 11/19: Patient remains intubated and sedated. Patient did not tolerate sedation vacation this am, became tachycardic, hypertensive, with elevated RR and SPO2 in the low 80s. Sedation back on, continue to wean sedation as tolerated for RASS goal of 0 to -2. Pateimt is off cardene gtt, PRN hydralazine for SPO2 above 160. Low K repleted, repeat labs in the am. 11/20: Remains on the vent and sedated, RASS -3. Plan to wean down on sedation, might need to add Seroquel if patient is not tolerating sedation. Hypernatremia and increased BUN/Cr. this am, patient is on lasix BID. Will discuss with [facility] to possibly hold or decreased IV lasix for now, FWF added for high Na. Urinary retention post briggs removal, bladder scan and straight cath per protocol. 11/21: Patient remains on the vent, unable to wean sedation at this time, Seroquel added. Titrate sedation as tolerated for RASS of 0 to -2. Briggs was reinserted overnight for urinary retention, kidney function is stable. 11/22: [facility] reduced FiO2. We will start weaning tomorrow. No acute events reported overnight. 11/23: Patient spiked a fever overnight and was cultured this morning. Attempted CPAP trial again today. An ABG obtained post trial which has been clover sims to [facility]. Slight hypernatremia noted. 11/24: I updated patient's son today, Kwame Salamanca at [phone]. Lasix stopped today. Patient placed on CPAP trial. She lasted on CPAP all day yesterday and was rested overnight on assist control. Given Kayexalate today due to hyperkalemia. 11/25: Patient was on SBT today and was not arousable for a while and a CT head was obtained which showed no acute intracranial abnormality. Patient later became severely agitated and was switched back to assist control and placed back on sedation. Family updated today. Restarted home Coreg due to hypotension. 11/26: SBT today, Haldol as needed. Briggs was removed yesterday bladder scan x2 with urine output. Slight hypernatremia persists. Blood pressure better controlled. 11/27/2021: Patient was extubated by [facility] this morning. Patient was severely agitated and given 2 mg Ativan, SBP 200s and given labatalol x1 10mg, NJ tube placed and given PO BP medications. She had stridor and was given racemic epi. We wanted to place BiPAP but after consolation with Dr. Gallegos it was decided to intubate the patient. She was intubated by Deidra, RT and given etomidate, versed and fentanyl. CXR in process. On fentanyl and precedex gtt. 11/28: added buspar to help with agitation, restarted serqoul at lower dose. weaned fi02 today. 11/29: Remains on the vent and on sedation, fent and precedx gtts. D/w [facility] plan for possible SAT and SBT in the am, hold TF at 6am on 11/30 for possible SAT/SBT. 11/30: Patient mentation slightly better this am, still on predex and fentanyl gtt. However, easily arousable, following simple commands. Tolerated SBT trial for about 2hrs today then patient was placed back on a rate due to increased work of breathing and increased agitation. D/w [facility] seroquel increased to BID, plan to try SAT/SBT again the am. 12/01: CONY overnight. Patient mentation continue to improve. Tolerating SBT this am, possible extubation today if ABG is wnr. 12/02: Extubated yesterday, on 4L NC this SPO2 at 100%. Patient is awake following simple commands this am, however, she is confused. Spoke to patient's son, Kwame Salamanca. He was updated on patient's status. He reported that patient was very self sufficient prior to admit, with no neurological nor any psych issues that he knows of. All questions and concerns were voiced at this time. Will continue to monitor for now. D/w [facility] patient is stable for transfer to IMCU 12/03: Slight improvement in mentation this am, however still drowsy and disorie ntated. Will hold seroquel and Buspar for now. Patient is on ventimask this am, plan to wean O2 supplementation for SPO2 goal above 90%. Transfer order placed for IMCU 12/04: Mentation much better this am, remains on 4L NC. Hypertensive overnight, however per RN patient was NPO since NGT was accidently pulled out overnight. Patient passed bedside swallow this am. Will start patient on a soft diet. D/w [facility] patient is stable for transfer to Telemetry. 12/05: Patient still requiring 4 L O2 via nasal cannula. Continue BiPAP at bedtime. Patient reports that she is on home O2 of 3 L. Continue duo nebs, LABA and inhaled corticosteroids. Brovana and Pulmicort. Continue gabapentin for Neurontin. PT evaluation 12/06: Patient reportedly last evening approximately 7 PM had altered mentation with inappropriate speech. Patient now requiring restraints. Continue Haldol as needed. Check stat ABG. Repeat chest x-ray. Check CT scan of the head. Patient currently requiring 3 L nasal cannula. Patient currently requiring 3 L O2 via nasal cannula. 12/07: Patient remains very confused, agitated needing bilateral distal restraints. Needs placement, discussed with the case management. 12/08: Mental status unchanged, remains confused needing wrist restraints. According to son, she was functioning physically and mentally normal before this admission. Requested subacute rehab. Discussed with case management. Wean O2 as tolerated. History Interval history: Mental status unchanged. Patient remains very confused and restless needing bilateral wrist restraints. Mostly nonverbal. No acute respiratory distress, on 3 L, family reported that she was functioning well prior to this admission. Hospitalist Physical - Constitutional Vitals: Temp Pulse Resp BP Pulse Ox 97.4 F L 80 20 128/77 85 12/08/21 11:44 12/08/21 12:00 12/08/21 11:44 12/08/21 11:44 12/08/21 11:44 General appearance: Present: no acute distress, obese, other (Very confused with the wrist restraints.) - EENT Eyes: Present: PERRL, EOM intact ENT: other (Dry oral mucosa) - Neck Neck: Present: supple - Respiratory Respiratory effort: normal Respiratory: bilateral: CTA (Coarse breath sounds) - Cardiovascular Rhythm: regular - Extremities Extremities: No edema - Abdominal General gastrointestinal: soft, non-tender - Integumentary Integumentary: Absent: rash - Psychiatric Psychiatric: agitated, other (Very confused) - Neurologic Neurologic: moves all extremities HEART Score - HEART Score Troponin: Troponin T < 0.010 ng/mL (0.00-0.029) 11/18/21 03:25 Results - Labs CBC & Chem 7: 12/05/21 08:02 12/05/21 08:02 Labs: Laboratory Last Values WBC 11.3 K/mm3 (4.5-11.0) H 12/05/21 08:02 RBC 5.94 M/mm3 (3.65-5.03) H 12/05/21 08:02 Hgb 15.3 gm/dl (10.1-14.3) H 12/05/21 08:02 Hct 50.9 % (30.3-42.9) H 12/05/21 08:02 MCV 86 fl (79-97) 12/05/21 08:02 MCH 26 pg (28-32) L 12/05/21 08:02 MCHC 30 % (30-34) 12/05/21 08:02 RDW 18.3 % (13.2-15.2) H 12/05/21 08:02 Plt Count 611 K/mm3 (140-440) H 12/05/21 08:02 Lymph % (Auto) 12.3 % (13.4-35.0) L 11/19/21 07:59 [place] % (Auto) 9.6 % (0.0-7.3) H 11/19/21 07:59 Eos % (Auto) 0.7 % (0.0-4.3) 11/19/21 07:59 Baso % (Auto) 0.5 % (0.0-1.8) 11/19/21 07:59 Lymph # (Auto) 1.6 K/mm3 (1.2-5.4) 11/19/21 07:59 [place] # (Auto) 1.2 K/mm3 (0.0-0.8) H 11/19/21 07:59 Eos # (Auto) 0.1 K/mm3 (0.0-0.4) 11/19/21 07:59 Baso # (Auto) 0.1 K/mm3 (0.0-0.1) 11/19/21 07:59 Add Manual Diff Complete 11/18/21 00:19 Total Counted 100 11/18/21 00:19 Seg Neutrophils % 76.9 % (40.0-70.0) H 11/19/21 07:59 Lymphocytes % (Manual) 4.0 % (13.4-35.0) L 11/18/21 00:19 Monocytes % (Manual) 2.0 % (0.0-7.3) 11/18/21 00:19 Nucleated RBC % Not Reportable 11/18/21 00:19 Seg Neutrophils # 9.7 K/mm3 (1.8-7.7) H 11/19/21 07:59 Seg Neutrophils # Man 14.7 K/mm3 (1.8-7.7) H 11/18/21 00:19 Band Neutrophils # 0.0 K/mm3 11/18/21 00:19 Lymphocytes # (Manual) 0.6 K/mm3 (1.2-5.4) L 11/18/21 00:19 Abs React Lymphs (Man) 0.0 K/mm3 11/18/21 00:19 Monocytes # (Manual) 0.3 K/mm3 (0.0-0.8) 11/18/21 00:19 Eosinophils # (Manual) 0.0 K/mm3 (0.0-0.4) 11/18/21 00:19 Basophils # (Manual) 0.0 K/mm3 (0.0-0.1) 11/18/21 00:19 Metamyelocytes # 0.0 K/mm3 11/18/21 00:19 Myelocytes # 0.0 K/mm3 11/18/21 00:19 Promyelocytes # 0.0 K/mm3 11/18/21 00:19 Blast Cells # 0.0 K/mm3 11/18/21 00:19 WBC Morphology Not Reportable 11/18/21 00:19 Hypersegmented Neuts Not Reportable 11/18/21 00:19 Hyposegmented Neuts Not Reportable 11/18/21 00:19 Hypogranular Neuts Not Reportable 11/18/21 00:19 Smudge Cells Not Reportable 11/18/21 00:19 Toxic Granulation Not Reportable 11/18/21 00:19 Toxic Vacuolation Not Reportable 11/18/21 00:19 Dohle Bodies Not Reportable 11/18/21 00:19 Pelger-Huet Anomaly Not Reportable 11/18/21 00:19 Luis Rods Not Reportable 11/18/21 00:19 Platelet Estimate Consistent w auto 11/18/21 00:19 Clumped Platelets Not Reportable 11/18/21 00:19 Plt Clumps, EDTA Not Reportable 11/18/21 00:19 Large Platelets Not Reportable 11/18/21 00:19 Giant Platelets Not Reportable 11/18/21 00:19 Platelet Satelliting Not Reportable 11/18/21 00:19 Plt Morphology Comment Not Reportable 11/18/21 00:19 RBC Morphology Not Reportable 11/18/21 00:19 Dimorphic RBCs Not Reportable 11/18/21 00:19 Polychromasia Not Reportable 11/18/21 00:19 Hypochromasia Not Reportable 11/18/21 00:19 Poikilocytosis Not Reportable 11/18/21 00:19 Anisocytosis 1+ 11/18/21 00:19 Microcytosis Not Reportable 11/18/21 00:19 Macrocytosis Few 11/18/21 00:19 Spherocytes Not Reportable 11/18/21 00:19 Pappenheimer Bodies Not Reportable 11/18/21 00:19 Sickle Cells Not Reportable 11/18/21 00:19 Target Cells Not Reportable 11/18/21 00:19 Tear Drop Cells Not Reportable 11/18/21 00:19 Ovalocytes Not Reportable 11/18/21 00:19 Helmet Cells Not Reportable 11/18/21 00:19 Connelly-Gooding Bodies Not Reportable 11/18/21 00:19 [place] Rings Not Reportable 11/18/21 00:19 [place] Cells Not Reportable 11/18/21 00:19 Bite Cells Not Reportable 11/18/21 00:19 Crenated Cell Not Reportable 11/18/21 00:19 Elliptocytes Not Reportable 11/18/21 00:19 Acanthocytes (Spur) Not Reportable 11/18/21 00:19 Rouleaux Not Reportable 11/18/21 00:19 Hemoglobin C Crystals Not Reportable 11/18/21 00:19 Schistocytes Not Reportable 11/18/21 00:19 Malaria parasites Not Reportable 11/18/21 00:19 Shahriar Bodies Not Reportable 11/18/21 00:19 Hem Pathologist Commnt No 11/18/21 00:19 PT 12.9 Sec. (12.2-14.9) 11/18/21 00:19 INR 0.88 (0.87-1.13) 11/18/21 00:19 APTT 29.2 Sec. (24.2-36.6) 11/18/21 00:19 D-Dimer 464.80 ng/mlDDU (0-234) H 11/18/21 05:15 ABG pH 7.446 pH Units (7.350-7.450) 12/06/21 11:45 POC ABG pCO2 60.0 mmHg (32.0-48.0) H 11/30/21 12:04 ABG pCO2 40.3 mm Hg 12/06/21 11:45 POC ABG pO2 68.3 mmHg (83-108) L 11/30/21 12:04 ABG pO2 75.9 mm Hg (80.0-90.0) L 12/06/21 11:45 POC ABG HCO3 32.9 11/30/21 12:04 ABG HCO3 27.1 mmol/L (20.0-26.0) H 12/06/21 11:45 ABG O2 Saturation 95.9 % (95.0-99.0) 12/06/21 11:45 ABG O2 Content 20.5 (0.0-44) 12/06/21 11:45 POC ABG Base Excess 5.5 11/30/21 12:04 ABG Base Excess 2.9 mmol/L (-2.0-3.0) 12/06/21 11:45 ABG Hemoglobin 15.6 gm/dl (12.0-16.0) 12/06/21 11:45 ABG Oxyhemoglobin 90.9 (94-98) L 11/30/21 12:04 ABG Carboxyhemoglobin 1.7 % (0.0-5.0) 12/06/21 11:45 ABG Methemoglobin 0.5 % (0.0-1.5) 12/06/21 11:45 ABG Sodium 145.1 mmol/L (136.0-145.0) H 11/30/21 12:04 ABG Potassium 4.0 mmol/L (3.40-4.50) 11/30/21 12:04 ABG Chloride 102.0 mmol/L (98-107) 11/30/21 12:04 ABG Glucose 122 mg/dL (65-95) H 11/30/21 12:04 Oxyhemoglobin 93.7 % (95.0-99.0) L 12/06/21 11:45 Carboxyhemoglobin 1.2 (0.5-1.5) 11/30/21 12:04 FiO2 32 % 12/06/21 11:45 FiO2 % 40 11/30/21 12:04 Sodium 137 mmol/L (137-145) 12/05/21 08:02 Potassium 4.5 mmol/L (3.6-5.0) 12/05/21 08:02 Chloride 99.7 mmol/L (98-107) 12/05/21 08:02 Carbon Dioxide 22 mmol/L (22-30) 12/05/21 08:02 Anion Gap 20 mmol/L 12/05/21 08:02 BUN 19 mg/dL (7-17) H 12/05/21 08:02 Creatinine 0.5 mg/dL (0.6-1.2) L 12/05/21 08:02 Estimated GFR > 60 ml/min 12/05/21 08:02 BUN/Creatinine Ratio 38 % 12/05/21 08:02 Glucose 94 mg/dL (65-100) 12/05/21 08:02 POC Glucose 103 mg/dL (70-105) 12/08/21 16:42 Hemoglobin A1c 5.9 % (4-6) 11/19/21 07:59 Lactic Acid 1.40 mmol/L (0.7-2.0) 11/18/21 00:19 Calcium 10.1 mg/dL (8.4-10.2) 12/05/21 08:02 Phosphorus 3.80 mg/dL (2.5-4.5) 12/04/21 04:48 Magnesium 2.00 mg/dL (1.7-2.3) 12/04/21 04:48 Total Bilirubin 0.40 mg/dL (0.1-1.2) 11/18/21 00:19 Direct Bilirubin < 0.2 mg/dL (0-0.2) 11/18/21 00:19 Indirect Bilirubin 0.2 mg/dL 11/18/21 00:19 AST 22 units/L (5-40) 11/18/21 00:19 ALT 25 units/L (7-56) 11/18/21 00:19 Alkaline Phosphatase 99 units/L (35-129) 11/18/21 00:19 Ammonia 54.0 umol/L (25-60) 11/18/21 00:19 Lactate Dehydrogenase 275 units/L (91-180) H 11/18/21 05:15 Troponin T < 0.010 ng/mL (0.00-0.029) 11/18/21 03:25 C-Reactive Protein 0.70 mg/dL (0.00-1.30) 11/18/21 15:47 NT-Pro-B Natriuret Pep 867.7 pg/mL (0-900) 11/18/21 00:19 Total Protein 7.4 g/dL (6.3-8.2) 11/18/21 00:19 Albumin 4.0 g/dL (3.9-5) 11/18/21 00:19 Albumin/Globulin Ratio 1.2 % 11/18/21 00:19 Triglycerides 185 mg/dL (2-149) H 11/22/21 04:39 Lipase 13 units/L (13-60) 11/18/21 00:19 Procalcitonin 0.12 ng/mL (<0.15) 11/18/21 05:15 Arterial Blood Glucose 122 mg/dL (65-95) H 11/30/21 12:04 Arterial Blood Ionized Calcium 5.2 mg/dL (4.6-5.3) 11/29/21 03:51 Urine Color Yellow (Yellow) 11/23/21 12:24 Urine Turbidity Clear (Clear) 11/23/21 12:24 Urine pH 7.0 (5.0-7.0) 11/23/21 12:24 Ur Specific [place] 1.018 (1.003-1.030) 11/23/21 12:24 Urine Protein <15 mg/dl mg/dL (Negative) 11/23/21 12:24 Urine Glucose (UA) Neg mg/dL (Negative) 11/23/21 12:24 Urine Ketones Neg mg/dL (Negative) 11/23/21 12:24 Urine Blood Neg (Negative) 11/23/21 12:24 Urine Nitrite Neg (Negative) 11/23/21 12:24 Urine Bilirubin Neg (Negative) 11/23/21 12:24 Urine Urobilinogen 4.0 mg/dL (<2.0) 11/23/21 12:24 Ur Leukocyte Esterase Neg (Negative) 11/23/21 12:24 Urine WBC (Auto) 1.0 /HPF (0.0-6.0) 11/23/21 12:24 Urine RBC (Auto) 1.0 /HPF (0.0-6.0) 11/23/21 12:24 U Epithel Cells (Auto) 1.0 /HPF (0-13.0) 11/18/21 01:03 Hyaline Casts 3 /LPF 11/18/21 01:03 Urine Mucus Few /HPF 11/18/21 01:03 Salicylates < 0.3 mg/dL (2.8-20.0) L 11/18/21 00:19 Urine Opiates Screen Negative 11/18/21 01:03 Urine Methadone Screen Negative 11/18/21 01:03 Acetaminophen 5.0 ug/mL (10.0-30.0) L 11/18/21 00:19 Ur Barbiturates Screen Negative 11/18/21 01:03 Ur Phencyclidine Scrn Negative 11/18/21 01:03 Ur Amphetamines Screen Negative 11/18/21 01:03 U Benzodiazepines Scrn Negative 11/18/21 01:03 Urine Cocaine Screen Negative 11/18/21 01:03 U Marijuana (THC) Screen Negative 11/18/21 01:03 Drugs of Abuse Note Disclamer 11/18/21 01:03 Plasma/Serum Alcohol < 0.01 % (0-0.07) 11/18/21 00:19 Coronavirus (PCR) Negative (Negative) 11/18/21 Unknown Briggs/IV: Voiding Method Indwelling Catheter Active Medications - Current Medications Current Medications: Generic Name Dose Route Start Last Admin Trade Name Freq PRN Reason Stop Dose Admin Acetaminophen 650 mg 11/18/21 03:10 11/22/21 19:49 Acetaminophen 650 Mg Rect Supp LA 650 mg Q6H PRN Administration Pain MILD(1-3)/Fever >100.5/MONTIEL Albuterol 2.5 mg 12/03/21 12:16 12/07/21 15:45 Albuterol 2.5 Mg/3 Ml Nebu IH 2.5 mg Q4HRT PRN Administration Shortness Of Breath Amlodipine Besylate 10 mg 11/27/21 10:00 12/08/21 10:04 Amlodipine 10 Mg Tab PO 10 mg DAILY PAULINA Administration Arformoterol Tartrate 15 mcg 11/18/21 20:00 12/07/21 21:57 Arformoterol 15 Mcg/2 Ml Nebu IH 15 mcg Q12HRT PAULINA Administration Aspirin 81 mg 11/27/21 10:00 12/08/21 10:03 Aspirin Ec 81 Mg Tab PO 81 mg QDAY PAULINA Administration Budesonide 0.5 mg 11/18/21 20:00 12/07/21 21:57 Budesonide 0.5 Mg/2 Ml Nebu IH 0.5 mg Q12HRT PAULINA Administration Carvedilol 12.5 mg 11/25/21 13:00 12/08/21 10:04 Carvedilol 12.5 Mg Tab FEEDTUBE 12.5 mg BID PAULINA Administration Dextrose 50 ml 11/18/21 10:40 Dextrose 50% In Water (25gm) 50 Ml Syringe IV Q30MIN PRN Hypoglycemia Protocol Enoxaparin Sodium 40 mg 11/19/21 22:00 12/07/21 21:40 Enoxaparin 40 Mg/0.4 Ml Inj SUB-Q 40 mg QDAY@2200 PAULINA Administration Protocol Famotidine 20 mg 11/20/21 10:00 12/08/21 10:04 Famotidine 20 Mg Tab FEEDTUBE 20 mg BID PAULINA Administration Hydralazine HCl 10 mg 11/18/21 10:44 12/06/21 07:08 Hydralazine 20 Mg/1 Ml Inj IV 10 mg Q4HR PRN Administration Hypertension Hydrophilic Ointment 1 applic 11/18/21 15:26 Lip Therapy Vaseline TP Q2HR PRN Dry Lips Insulin Human Lispro 0 unit 12/04/21 16:30 12/08/21 08:08 Insulin Lispro 100 Unit/Ml SUB-Q Not Given ACHS [facility] Protocol Isosorbide Mononitrate 60 mg 12/04/21 15:00 12/08/21 10:04 Isosorbide Mononitrate Er 60 Mg Tab PO 60 mg QDAY PAULINA Administration Losartan Potassium 100 mg 12/05/21 10:00 12/08/21 10:04 Losartan 50 Mg Tab PO 100 mg QDAY PAULINA Administration Magnesium Hydroxide 30 ml 11/18/21 03:10 Magnesium Hydroxide (Mom) Oral Liqd Udc PO Q4H PRN Constipation Senna/Docusate Sodium 1 tab 11/18/21 22:00 12/08/21 10:03 Sennosides/Docusate Sodium 8.6/50 Mg Tab FEEDTUBE 1 tab BID PAULINA Administration Nutrition/Malnutrition Assess - Dietary Evaluation Nutrition/Malnutrition Findings: Nutrition Notes Start: 11/18/21 10:45 Freq: Status: Active Protocol: Document 12/08/21 16:46 LEONARDO (Rec: 12/08/21 16:56 LEONARDO [id number]) Nutrition Notes Initial or Follow up Brief Note Current Diet Pureed Diet (since D 12/06), D Suppl (since D 12/08).. Height 5 ft 8 in Weight 81.6 kg Elizabeth Body Weight (kg) 63.63 BMI 27.3 Weight change and time frame No body weight change reported . Weight Status Overweight Subjective/Other Information RD consult for routine F/U on CHANGE RELEASE MANAGER evaluation and TF tolerance or Dietary advancement. Diet advanced to PO. %PO intake of meals has been Neglible (<25%), according to ADL notes. Dietary Supplements recommended and ordered. Percent of energy/protein needs met: Prescribed Pureed Diet provides for energy/protein needs (1,804 Kcal/77 g) during LOS; additionally, Dietary Supplements will compensate for possible Poor PO intake of meals with 1,050 Kcal and 60 g of protein. Current % PO Negligible Minimum of two criteria No #1 Nutrition Diagnosis Inadequate oral intake Comments: Diet advanced to Po, but intake remains neglible. Diagnosis Progress(for reassessment Improved documentation) Nutrition Intervention Change Diet Order: Continue Pureed Diet. Add Supplement/Snack (indicate name/kcal 8 fl oz Ensure Enlive; TID. /protein ) Provides kCal: 1,050 Provides Protein (gm) 60 Goal #1 Compensate, through dietary supplementation, for possible poor or insufficient PO intake of meals during LOS. Follow-Up By: 12/15/21 Additional Comments Continue monitoring food tolerance, %PO intake of meals and ONS, and BM.
--- NOTE | 2021-12-08 19:07 | Progress Note ---
Assessment and Plan 81-year-old female with known history of coronary artery disease, OR, CHF, pulmonary hypertension and COPD , GERD brought into the emergency room via EMS for altered mental status and unresponsiveness. Most of the history was gotten from the ER staff as patient was already intubated in the emergency room. According to EMS patient was said to be having difficulty breathing was minimally responsive but in respiratory distress initially. She is well-known to EMS service as she had been transported on multiple occasions for COPD exace rbations. Respiratory status was said to have worsened in route to the hospital and patient had been given Solu-Medrol and magnesium IV. However she was said to have developed pinpoint pupils and was given some Narcan with some improvement. Work-up in the emergency room today, labs were significant for leukocytosis of 15.6, D-dimer of 464. Urinalysis was significant for UTI. Chest x-ray shows bilateral pulmonary opacities possibly representing edema/atelectasis or pneumonia. CT of the chest shows evidence of pulmonary hypertension with dense consolidation along the left lower lobe that is concerning for pneumonia. Mild interstitial pulmonary edema. Patient awake. Confused. On 2 litres O2 via nasal cannula. No acute respiratory distress. BIPAP stand by in the room. O2 saturation running 90% Patient afebrile. Has mild leukocytosis. Blood pressure 154/80, Pulse 89, respirations 19. Chest xray done 12/06/21 reported Poor degree of inspiration is seen. A mildly congested appearance is noted and there may be mild interstitial edema. Bibasilar atelectatic changes are noted. No pneumothorax. Patient presently on Brovanna/Budesonide aerosol treatments, Albuterol inhaler q 6 hours Prn for shortness of breath,S/C Lovenox, Famotidine, - Patient Problems (1) Altered mental status Current Visit: Yes Status: Acute Plan to address problem: Management as per primary care and neurology. (2) COPD exacerbation Current Visit: Yes Status: Acute Plan to address problem: O2 2 litres via nasal cannula Brovanna/Budesonide aerosol treatments q 12 hours Continue S/C Lovenox, Continue famotidine. (3) Pneumonia Current Visit: Yes Status: Acute Plan to address problem: If patient febrile, consider antibiotics. 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 (5) Hypertension Current Visit: No Status: Chronic Qualifiers: Hypertension type: essential hypertension Plan to address problem: Management as per primary care. Subjective Date of service: 12/08/21 Principal diagnosis: AE-COPD; AHRF; CHF (? new onset); CAP; CAD; Obesity; HTNsive Emergency Interval history: 81-year-old female with known history of coronary artery disease, OR, CHF, pulmonary hypertension and COPD , GERD brought into the emergency room via EMS for altered mental status and unresponsiveness. Most of the history was gotten from the ER staff as patient was already intubated in the emergency room. According to EMS patient was said to be having difficulty breathing was minimally responsive but in respiratory distress initially. She is well-known to EMS service as she had been transported on multiple occasions for COPD exacerbations. Respiratory status was said to have worsened in route to the hospital and patient had been given Solu-Medrol and magnesium IV. However she was said to have developed pinpoint pupils and was given some Narcan with some improvement. Work-up in the emergency room today, labs were significant for leukocytosis of 15.6, D-dimer of 464. Urinalysis was significant for UTI. Chest x-ray shows bilateral pulmonary opacities possibly representing edema/atelectasis or pneumonia. CT of the chest shows evidence of pulmonary hypertension with dense consolidation along the left lower lobe that is concerning for pneumonia. Mild interstitial pulmonary edema. Patient extubated and transfered to the telemetry. Patient awake. Confused. On 2 litres O2 via nasal cannula. No acute respiratory distress. BIPAP stand by in the room. O2 saturation running 90% Patient afebrile. Has mild leukocytosis. Blood pressure 154/80, Pulse 89, respirations 19. Chest xray done 12/06/21 reported Poor degree of inspiration is seen. A mildly congested appearance is noted and there may be mild interstitial edema. Bibasilar atelectatic changes are noted. No pneumothorax. Patient presently on Brovanna/Budesonide aerosol treatments, Albuterol inhaler q 6 hours Prn for shortness of breath,S/C Lovenox, Famotidine, Objective Vital Signs - 12hr 12/08/21 12/08/21 12/08/21 07:50 10:00 11:15 Temperature 98.1 F Pulse Rate 80 Respiratory 20 Rate Blood Pressure 144/81 O2 Sat by Pulse 100 96 99 Oximetry 12/08/21 12/08/21 11:44 12:00 Temperature 97.4 F L Pulse Rate 80 Respiratory 20 Rate Blood Pressure 128/77 O2 Sat by Pulse 85 Oximetry Constitutional: no acute distress, alert, other (Confused) Eyes: non-icteric ENT: oropharynx moist Neck: supple, no lymphadenopathy, no JVD, other (large circumference) Effort: mildly labored Ascultation: Bilateral: diminished breath sounds, rhonchi (scant bases) Percussion: Bilateral: not dull Cardiovascular: regular rate and rhythm Gastrointestinal: normoactive bowel sounds, soft, non-tender, non-distended (protuberant) Integumentary: normal Extremities: no cyanosis, no edema, pulses normal, no ischemia or petechiae Neurologic: non-focal exam (grossly), pupils equal and round Psychiatric: other (mild delirium, Confused.) CBC and BMP: 12/09/21 06:23 12/09/21 06:23 ABG, PT/INR, D-dimer: ABG ABG pH 7.446 pH Units (7.350-7.450) 12/06/21 11:45 POC ABG pCO2 60.0 mmHg (32.0-48.0) H 11/30/21 12:04 ABG pCO2 40.3 mm Hg 12/06/21 11:45 POC ABG pO2 68.3 mmHg (83-108) L 11/30/21 12:04 ABG pO2 75.9 mm Hg (80.0-90.0) L 12/06/21 11:45 POC ABG HCO3 32.9 11/30/21 12:04 ABG O2 Saturation 95.9 % (95.0-99.0) 12/06/21 11:45 PT/INR, D-dimer PT 12.9 Sec. (12.2-14.9) 11/18/21 00:19 INR 0.88 (0.87-1.13) 11/18/21 00:19 D-Dimer 464.80 ng/mlDDU (0-234) H 11/18/21 05:15 Abnormal lab findings: Abnormal Labs 11/18/21 11/18/21 11/18/21 00:01 00:19 00:19 WBC 15.6 H RBC 5.59 H Hgb 14.8 H Hct 49.8 H MCH 27 L MCHC RDW 16.9 H Plt Count Lymph % (Auto) [place] % (Auto) Lymph # (Auto) [place] # (Auto) Seg Neutrophils % Lymphocytes % (Manual) 4.0 L Seg Neutrophils # Seg Neutrophils # Man 14.7 H Lymphocytes # (Manual) 0.6 L D-Dimer ABG pH POC ABG pCO2 POC ABG pO2 ABG pO2 ABG HCO3 ABG O2 Saturation ABG Base Excess ABG Hemoglobin ABG Oxyhemoglobin ABG Sodium ABG Glucose Oxyhemoglobin Carboxyhemoglobin Sodium Potassium Carbon Dioxide BUN Creatinine Glucose 148 H POC Glucose 151 H Calcium Phosphorus Magnesium Lactate Dehydrogenase Triglycerides Arterial Blood Glucose Arterial Blood Ionized Calcium Urine WBC (Auto) Salicylates Acetaminophen 11/18/21 11/18/21 11/18/21 00:19 00:19 00:19 WBC RBC Hgb Hct MCH MCHC RDW Plt Count Lymph % (Auto) [place] % (Auto) Lymph # (Auto) [place] # (Auto) Seg Neutrophils % Lymphocytes % (Manual) Seg Neutrophils # Seg Neutrophils # Man Lymphocytes # (Manual) D-Dimer ABG pH POC ABG pCO2 POC ABG pO2 ABG pO2 ABG HCO3 ABG O2 Saturation ABG Base Excess ABG Hemoglobin ABG Oxyhemoglobin ABG Sodium ABG Glucose Oxyhemoglobin Carboxyhemoglobin Sodium Potassium Carbon Dioxide BUN Creatinine Glucose POC Glucose Calcium Phosphorus Magnesium 2.50 H Lactate Dehydrogenase Triglycerides Arterial Blood Glucose Arterial Blood Ionized Calcium Urine WBC (Auto) Salicylates < 0.3 L Acetaminophen 5.0 L 11/18/21 11/18/21 11/18/21 01:03 02:00 05:15 WBC RBC Hgb Hct MCH MCHC RDW Plt Count Lymph % (Auto) [place] % (Auto) Lymph # (Auto) [place] # (Auto) Seg Neutrophils % Lymphocytes % (Manual) Seg Neutrophils # Seg Neutrophils # Man Lymphocytes # (Manual) D-Dimer 464.80 H ABG pH POC ABG pCO2 POC ABG pO2 ABG pO2 ABG HCO3 35.8 H ABG O2 Saturation ABG Base Excess 7.8 H ABG Hemoglobin ABG Oxyhemoglobin ABG Sodium ABG Glucose Oxyhemoglobin 91.9 L Carboxyhemoglobin Sodium Potassium Carbon Dioxide BUN Creatinine Glucose POC Glucose Calcium Phosphorus Magnesium Lactate Dehydrogenase Triglycerides Arterial Blood Glucose Arterial Blood Ionized Calcium Urine WBC (Auto) 16.0 H Salicylates Acetaminophen 11/18/21 11/18/21 11/18/21 05:15 15:47 15:47 WBC 13.5 H RBC 5.60 H Hgb 14.9 H Hct 49.1 H MCH 27 L MCHC RDW 17.3 H Plt Count Lymph % (Auto) 7.9 L [place] % (Auto) 10.1 H Lymph # (Auto) 1.1 L [place] # (Auto) 1.4 H Seg Neutrophils % 81.7 H Lymphocytes % (Manual) Seg Neutrophils # 11.0 H Seg Neutrophils # Man Lymphocytes # (Manual) D-Dimer ABG pH POC ABG pCO2 POC ABG pO2 ABG pO2 ABG HCO3 ABG O2 Saturation ABG Base Excess ABG Hemoglobin ABG Oxyhemoglobin ABG Sodium ABG Glucose Oxyhemoglobin Carboxyhemoglobin Sodium Potassium Carbon Dioxide BUN Creatinine Glucose 138 H POC Glucose Calcium Phosphorus Magnesium Lactate Dehydrogenase 275 H Triglycerides Arterial Blood Glucose Arterial Blood Ionized Calcium Urine WBC (Auto) Salicylates Acetaminophen 11/18/21 11/18/21 11/19/21 18:45 23:33 04:58 WBC RBC Hgb Hct MCH MCHC RDW Plt Count Lymph % (Auto) [place] % (Auto) Lymph # (Auto) [place] # (Auto) Seg Neutrophils % Lymphocytes % (Manual) Seg Neutrophils # Seg Neutrophils # Man Lymphocytes # (Manual) D-Dimer ABG pH POC ABG pCO2 POC ABG pO2 ABG pO2 ABG HCO3 ABG O2 Saturation ABG Base Excess ABG Hemoglobin ABG Oxyhemoglobin ABG Sodium ABG Glucose Oxyhemoglobin Carboxyhemoglobin Sodium Potassium Carbon Dioxide BUN Creatinine Glucose 130 H POC Glucose 132 H 113 H Calcium Phosphorus Magnesium Lactate Dehydrogenase Triglycerides Arterial Blood Glucose Arterial Blood Ionized Calcium Urine WBC (Auto) Salicylates Acetaminophen 11/19/21 11/19/21 11/19/21 07:59 07:59 08:55 WBC 12.7 H RBC 5.29 H Hgb Hct 45.5 H MCH 26 L MCHC RDW 17.4 H Plt Count Lymph % (Auto) 12.3 L [place] % (Auto) 9.6 H Lymph # (Auto) [place] # (Auto) 1.2 H Seg Neutrophils % 76.9 H Lymphocytes % (Manual) Seg Neutrophils # 9.7 H Seg Neutrophils # Man Lymphocytes # (Manual) D-Dimer ABG pH 7.518 H POC ABG pCO2 POC ABG pO2 ABG pO2 77.6 L ABG HCO3 30.1 H ABG O2 Saturation ABG Base Excess 6.9 H ABG Hemoglobin ABG Oxyhemoglobin ABG Sodium ABG Glucose Oxyhemoglobin Carboxyhemoglobin Sodium Potassium 3.1 L D Carbon Dioxide BUN Creatinine Glucose 115 H POC Glucose Calcium 8.1 L Phosphorus Magnesium Lactate Dehydrogenase Triglycerides Arterial Blood Glucose Arterial Blood Ionized Calcium Urine WBC (Auto) Salicylates Acetaminophen 11/19/21 11/19/21 11/20/21 11:33 16:22 04:20 WBC 13.9 H RBC 5.44 H Hgb Hct 49.3 H MCH 26 L MCHC 29 L RDW 18.3 H Plt Count Lymph % (Auto) [place] % (Auto) Lymph # (Auto) [place] # (Auto) Seg Neutrophils % Lymphocytes % (Manual) Seg Neutrophils # Seg Neutrophils # Man Lymphocytes # (Manual) D-Dimer ABG pH POC ABG pCO2 POC ABG pO2 ABG pO2 ABG HCO3 ABG O2 Saturation ABG Base Excess ABG Hemoglobin ABG Oxyhemoglobin ABG Sodium ABG Glucose Oxyhemoglobin Carboxyhemoglobin Sodium Potassium Carbon Dioxide BUN Creatinine Glucose POC Glucose 119 H 112 H Calcium Phosphorus Magnesium Lactate Dehydrogenase Triglycerides Arterial Blood Glucose Arterial Blood Ionized Calcium Urine WBC (Auto) Salicylates Acetaminophen 11/20/21 11/20/21 11/20/21 04:20 11:07 12:02 WBC RBC Hgb Hct MCH MCHC RDW Plt Count Lymph % (Auto) [place] % (Auto) Lymph # (Auto) [place] # (Auto) Seg Neutrophils % Lymphocytes % (Manual) Seg Neutrophils # Seg Neutrophils # Man Lymphocytes # (Manual) D-Dimer ABG pH 7.251 L POC ABG pCO2 POC ABG pO2 ABG pO2 66.3 L ABG HCO3 30.2 H ABG O2 Saturation 91.8 L ABG Base Excess ABG Hemoglobin ABG Oxyhemoglobin ABG Sodium ABG Glucose Oxyhemoglobin 89.4 L Carboxyhemoglobin Sodium 147 H Potassium Carbon Dioxide BUN 25 H Creatinine Glucose POC Glucose 118 H Calcium Phosphorus 6.40 H Magnesium Lactate Dehydrogenase Triglycerides Arterial Blood Glucose Arterial Blood Ionized Calcium Urine WBC (Auto) Salicylates Acetaminophen 11/20/21 11/21/21 11/21/21 17:31 00:07 04:44 WBC 14.0 H RBC 5.08 H Hgb Hct 44.7 H MCH 26 L MCHC 29 L RDW 17.8 H Plt Count Lymph % (Auto) [place] % (Auto) Lymph # (Auto) [place] # (Auto) Seg Neutrophils % Lymphocytes % (Manual) Seg Neutrophils # Seg Neutrophils # Man Lymphocytes # (Manual) D-Dimer ABG pH POC ABG pCO2 POC ABG pO2 ABG pO2 ABG HCO3 ABG O2 Saturation ABG Base Excess ABG Hemoglobin ABG Oxyhemoglobin ABG Sodium ABG Glucose Oxyhemoglobin Carboxyhemoglobin Sodium Potassium Carbon Dioxide BUN Creatinine Glucose POC Glucose 139 H 147 H Calcium Phosphorus Magnesium Lactate Dehydrogenase Triglycerides Arterial Blood Glucose Arterial Blood Ionized Calcium Urine WBC (Auto) Salicylates Acetaminophen 11/21/21 11/21/21 11/21/21 04:44 06:06 11:45 WBC RBC Hgb Hct MCH MCHC RDW Plt Count Lymph % (Auto) [place] % (Auto) Lymph # (Auto) [place] # (Auto) Seg Neutrophils % Lymphocytes % (Manual) Seg Neutrophils # Seg Neutrophils # Man Lymphocytes # (Manual) D-Dimer ABG pH POC ABG pCO2 POC ABG pO2 ABG pO2 ABG HCO3 ABG O2 Saturation ABG Base Excess ABG Hemoglobin ABG Oxyhemoglobin ABG Sodium ABG Glucose Oxyhemoglobin Carboxyhemoglobin Sodium Potassium Carbon Dioxide BUN 20 H Creatinine Glucose 157 H POC Glucose 158 H 119 H Calcium Phosphorus Magnesium Lactate Dehydrogenase Triglycerides Arterial Blood Glucose Arterial Blood Ionized Calcium Urine WBC (Auto) Salicylates Acetaminophen 11/21/21 11/21/21 11/22/21 11:50 16:54 00:03 WBC RBC Hgb Hct MCH MCHC RDW Plt Count Lymph % (Auto) [place] % (Auto) Lymph # (Auto) [place] # (Auto) Seg Neutrophils % Lymphocytes % (Manual) Seg Neutrophils # Seg Neutrophils # Man Lymphocytes # (Manual) D-Dimer ABG pH POC ABG pCO2 POC ABG pO2 ABG pO2 61.8 L ABG HCO3 35.2 H ABG O2 Saturation 92.8 L ABG Base Excess 8.1 H ABG Hemoglobin ABG Oxyhemoglobin ABG Sodium ABG Glucose Oxyhemoglobin 90.6 L Carboxyhemoglobin Sodium Potassium Carbon Dioxide BUN Creatinine Glucose POC Glucose 149 H 133 H Calcium Phosphorus Magnesium Lactate Dehydrogenase Triglycerides Arterial Blood Glucose Arterial Blood Ionized Calcium Urine WBC (Auto) Salicylates Acetaminophen 11/22/21 11/22/21 11/22/21 04:39 04:39 04:39 WBC 14.1 H RBC Hgb Hct 43.4 H MCH 26 L MCHC RDW 17.9 H Plt Count Lymph % (Auto) [place] % (Auto) Lymph # (Auto) [place] # (Auto) Seg Neutrophils % Lymphocytes % (Manual) Seg Neutrophils # Seg Neutrophils # Man Lymphocytes # (Manual) D-Dimer ABG pH POC ABG pCO2 POC ABG pO2 ABG pO2 ABG HCO3 ABG O2 Saturation ABG Base Excess ABG Hemoglobin ABG Oxyhemoglobin ABG Sodium ABG Glucose Oxyhemoglobin Carboxyhemoglobin Sodium Potassium Carbon Dioxide 33 H BUN Creatinine Glucose 152 H POC Glucose Calcium Phosphorus Magnesium Lactate Dehydrogenase Triglycerides 185 H Arterial Blood Glucose Arterial Blood Ionized Calcium Urine WBC (Auto) Salicylates Acetaminophen 11/22/21 11/22/21 11/22/21 05:02 10:56 11:31 WBC RBC Hgb Hct MCH MCHC RDW Plt Count Lymph % (Auto) [place] % (Auto) Lymph # (Auto) [place] # (Auto) Seg Neutrophils % Lymphocytes % (Manual) Seg Neutrophils # Seg Neutrophils # Man Lymphocytes # (Manual) D-Dimer ABG pH POC ABG pCO2 POC ABG pO2 ABG pO2 55.3 L ABG HCO3 39.4 H ABG O2 Saturation 89.5 L ABG Base Excess 11.7 H ABG Hemoglobin ABG Oxyhemoglobin ABG Sodium ABG Glucose Oxyhemoglobin 87.2 L Carboxyhemoglobin Sodium Potassium Carbon Dioxide BUN Creatinine Glucose POC Glucose 158 H 116 H Calcium Phosphorus Magnesium Lactate Dehydrogenase Triglycerides Arterial Blood Glucose Arterial Blood Ionized Calcium Urine WBC (Auto) Salicylates Acetaminophen 11/22/21 11/22/21 11/23/21 17:29 23:22 04:49 WBC 13.6 H RBC 5.18 H Hgb Hct 45.6 H MCH 25 L MCHC 29 L RDW 17.5 H Plt Count Lymph % (Auto) [place] % (Auto) Lymph # (Auto) [place] # (Auto) Seg Neutrophils % Lymphocytes % (Manual) Seg Neutrophils # Seg Neutrophils # Man Lymphocytes # (Manual) D-Dimer ABG pH POC ABG pCO2 POC ABG pO2 ABG pO2 ABG HCO3 ABG O2 Saturation ABG Base Excess ABG Hemoglobin ABG Oxyhemoglobin ABG Sodium ABG Glucose Oxyhemoglobin Carboxyhemoglobin Sodium Potassium Carbon Dioxide BUN Creatinine Glucose POC Glucose 129 H 171 H Calcium Phosphorus Magnesium Lactate Dehydrogenase Triglycerides Arterial Blood Glucose Arterial Blood Ionized Calcium Urine WBC (Auto) Salicylates Acetaminophen 11/23/21 11/23/21 11/23/21 04:49 11:53 16:22 WBC RBC Hgb Hct MCH MCHC RDW Plt Count Lymph % (Auto) [place] % (Auto) Lymph # (Auto) [place] # (Auto) Seg Neutrophils % Lymphocytes % (Manual) Seg Neutrophils # Seg Neutrophils # Man Lymphocytes # (Manual) D-Dimer ABG pH POC ABG pCO2 POC ABG pO2 ABG pO2 61.8 L ABG HCO3 40.9 H ABG O2 Saturation 93.4 L ABG Base Excess 14.6 H ABG Hemoglobin 6.9 L ABG Oxyhemoglobin ABG Sodium ABG Glucose Oxyhemoglobin 90.2 L Carboxyhemoglobin Sodium 146 H Potassium Carbon Dioxide 36 H BUN 21 H Creatinine Glucose 155 H POC Glucose 166 H Calcium Phosphorus Magnesium Lactate Dehydrogenase Triglycerides Arterial Blood Glucose Arterial Blood Ionized Calcium Urine WBC (Auto) Salicylates Acetaminophen 11/23/21 11/23/21 11/24/21 17:11 23:07 05:03 WBC RBC Hgb Hct MCH MCHC RDW Plt Count Lymph % (Auto) [place] % (Auto) Lymph # (Auto) [place] # (Auto) Seg Neutrophils % Lymphocytes % (Manual) Seg Neutrophils # Seg Neutrophils # Man Lymphocytes # (Manual) D-Dimer ABG pH POC ABG pCO2 POC ABG pO2 ABG pO2 ABG HCO3 ABG O2 Saturation ABG Base Excess ABG Hemoglobin ABG Oxyhemoglobin ABG Sodium ABG Glucose Oxyhemoglobin Carboxyhemoglobin Sodium Potassium Carbon Dioxide BUN Creatinine Glucose POC Glucose 142 H 197 H 183 H Calcium Phosphorus Magnesium Lactate Dehydrogenase Triglycerides Arterial Blood Glucose Arterial Blood Ionized Calcium Urine WBC (Auto) Salicylates Acetaminophen 11/24/21 11/24/21 11/24/21 08:33 08:33 09:00 WBC RBC Hgb Hct 43.6 H MCH 26 L MCHC RDW 18.0 H Plt Count Lymph % (Auto) [place] % (Auto) Lymph # (Auto) [place] # (Auto) Seg Neutrophils % Lymphocytes % (Manual) Seg Neutrophils # Seg Neutrophils # Man Lymphocytes # (Manual) D-Dimer ABG pH POC ABG pCO2 POC ABG pO2 ABG pO2 69.1 L ABG HCO3 40.1 H ABG O2 Saturation 93.2 L ABG Base Excess 11.9 H ABG Hemoglobin ABG Oxyhemoglobin ABG Sodium ABG Glucose Oxyhemoglobin 90.3 L Carboxyhemoglobin Sodium Potassium 5.3 H D Carbon Dioxide 36 H BUN 25 H Creatinine 0.5 L Glucose 185 H POC Glucose Calcium Phosphorus Magnesium Lactate Dehydrogenase Triglycerides Arterial Blood Glucose Arterial Blood Ionized Calcium Urine WBC (Auto) Salicylates Acetaminophen 11/24/21 11/24/21 11/25/21 12:00 18:08 00:50 WBC RBC Hgb Hct MCH MCHC RDW Plt Count Lymph % (Auto) [place] % (Auto) Lymph # (Auto) [place] # (Auto) Seg Neutrophils % Lymphocytes % (Manual) Seg Neutrophils # Seg Neutrophils # Man Lymphocytes # (Manual) D-Dimer ABG pH POC ABG pCO2 POC ABG pO2 ABG pO2 67.3 L ABG HCO3 41.6 H 42.7 H ABG O2 Saturation 94.5 L ABG Base Excess 12.3 H 14.7 H ABG Hemoglobin ABG Oxyhemoglobin ABG Sodium ABG Glucose Oxyhemoglobin 93.1 L 91.6 L Carboxyhemoglobin Sodium Potassium Carbon Dioxide BUN Creatinine Glucose POC Glucose 168 H Calcium Phosphorus Magnesium Lactate Dehydrogenase Triglycerides Arterial Blood Glucose Arterial Blood Ionized Calcium Urine WBC (Auto) Salicylates Acetaminophen 11/25/21 11/25/21 11/25/21 04:57 04:57 14:18 WBC RBC 5.13 H Hgb Hct 45.1 H MCH 26 L MCHC RDW 17.7 H Plt Count Lymph % (Auto) [place] % (Auto) Lymph # (Auto) [place] # (Auto) Seg Neutrophils % Lymphocytes % (Manual) Seg Neutrophils # Seg Neutrophils # Man Lymphocytes # (Manual) D-Dimer ABG pH POC ABG pCO2 POC ABG pO2 ABG pO2 65.1 L ABG HCO3 41.7 H ABG O2 Saturation 94.2 L ABG Base Excess 13.4 H ABG Hemoglobin ABG Oxyhemoglobin ABG Sodium ABG Glucose Oxyhemoglobin 91.3 L Carboxyhemoglobin Sodium 146 H Potassium Carbon Dioxide 38 H BUN 26 H Creatinine 0.5 L Glucose 210 H POC Glucose Calcium Phosphorus Magnesium Lactate Dehydrogenase Triglycerides Arterial Blood Glucose Arterial Blood Ionized Calcium Urine WBC (Auto) Salicylates Acetaminophen 11/25/21 11/26/21 11/26/21 19:22 04:28 04:28 WBC RBC 5.05 H Hgb Hct 44.0 H MCH 26 L MCHC RDW 17.6 H Plt Count Lymph % (Auto) [place] % (Auto) Lymph # (Auto) [place] # (Auto) Seg Neutrophils % Lymphocytes % (Manual) Seg Neutrophils # Seg Neutrophils # Man Lymphocytes # (Manual) D-Dimer ABG pH POC ABG pCO2 POC ABG pO2 ABG pO2 ABG HCO3 ABG O2 Saturation ABG Base Excess ABG Hemoglobin ABG Oxyhemoglobin ABG Sodium ABG Glucose Oxyhemoglobin Carboxyhemoglobin Sodium 146 H Potassium Carbon Dioxide 38 H BUN 30 H Creatinine Glucose 124 H POC Glucose 151 H Calcium 10.5 H Phosphorus Magnesium Lactate Dehydrogenase Triglycerides Arterial Blood Glucose Arterial Blood Ionized Calcium Urine WBC (Auto) Salicylates Acetaminophen 11/26/21 11/26/21 11/27/21 05:50 10:28 08:31 WBC 12.4 H RBC 5.62 H Hgb 14.6 H Hct 48.7 H MCH 26 L MCHC RDW 17.9 H Plt Count 469 H Lymph % (Auto) [place] % (Auto) Lymph # (Auto) [place] # (Auto) Seg Neutrophils % Lymphocytes % (Manual) Seg Neutrophils # Seg Neutrophils # Man Lymphocytes # (Manual) D-Dimer ABG pH POC ABG pCO2 POC ABG pO2 ABG pO2 66.5 L ABG HCO3 39.6 H ABG O2 Saturation 92.9 L ABG Base Excess 11.4 H ABG Hemoglobin 16.8 H ABG Oxyhemoglobin ABG Sodium ABG Glucose Oxyhemoglobin 90.3 L Carboxyhemoglobin Sodium Potassium Carbon Dioxide BUN Creatinine Glucose POC Glucose 121 H Calcium Phosphorus Magnesium Lactate Dehydrogenase Triglycerides Arterial Blood Glucose Arterial Blood Ionized Calcium Urine WBC (Auto) Salicylates Acetaminophen 11/27/21 11/27/21 11/27/21 08:31 09:46 11:49 WBC RBC Hgb Hct MCH MCHC RDW Plt Count Lymph % (Auto) [place] % (Auto) Lymph # (Auto) [place] # (Auto) Seg Neutrophils % Lymphocytes % (Manual) Seg Neutrophils # Seg Neutrophils # Man Lymphocytes # (Manual) D-Dimer ABG pH POC ABG pCO2 POC ABG pO2 ABG pO2 ABG HCO3 ABG O2 Saturation ABG Base Excess ABG Hemoglobin ABG Oxyhemoglobin ABG Sodium ABG Glucose Oxyhemoglobin Carboxyhemoglobin Sodium 150 H Potassium Carbon Dioxide 33 H BUN 31 H Creatinine Glucose 135 H POC Glucose 140 H 153 H Calcium 11.0 H Phosphorus Magnesium Lactate Dehydrogenase Triglycerides Arterial Blood Glucose Arterial Blood Ionized Calcium Urine WBC (Auto) Salicylates Acetaminophen 11/27/21 11/27/21 11/27/21 14:16 17:14 23:25 WBC RBC Hgb Hct MCH MCHC RDW Plt Count Lymph % (Auto) [place] % (Auto) Lymph # (Auto) [place] # (Auto) Seg Neutrophils % Lymphocytes % (Manual) Seg Neutrophils # Seg Neutrophils # Man Lymphocytes # (Manual) D-Dimer ABG pH 7.485 H POC ABG pCO2 48.7 H POC ABG pO2 74.5 L ABG pO2 ABG HCO3 ABG O2 Saturation ABG Base Excess ABG Hemoglobin ABG Oxyhemoglobin ABG Sodium 145.5 H ABG Glucose 153 H Oxyhemoglobin Carboxyhemoglobin 1.6 H Sodium Potassium Carbon Dioxide BUN Creatinine Glucose POC Glucose 142 H 123 H Calcium Phosphorus Magnesium Lactate Dehydrogenase Triglycerides Arterial Blood Glucose 153 H Arterial Blood Ionized Calcium 5.4 H Urine WBC (Auto) Salicylates Acetaminophen 11/28/21 11/28/21 11/28/21 03:38 03:38 05:16 WBC RBC 5.05 H Hgb Hct 43.6 H MCH 26 L MCHC RDW 17.8 H Plt Count Lymph % (Auto) [place] % (Auto) Lymph # (Auto) [place] # (Auto) Seg Neutrophils % Lymphocytes % (Manual) Seg Neutrophils # Seg Neutrophils # Man Lymphocytes # (Manual) D-Dimer ABG pH POC ABG pCO2 POC ABG pO2 ABG pO2 ABG HCO3 ABG O2 Saturation ABG Base Excess ABG Hemoglobin ABG Oxyhemoglobin ABG Sodium ABG Glucose Oxyhemoglobin Carboxyhemoglobin Sodium 150 H Potassium Carbon Dioxide 32 H BUN 51 H Creatinine Glucose 143 H POC Glucose 138 H Calcium 10.5 H Phosphorus Magnesium Lactate Dehydrogenase Triglycerides Arterial Blood Glucose Arterial Blood Ionized Calcium Urine WBC (Auto) Salicylates Acetaminophen 11/28/21 11/28/21 11/29/21 17:01 23:51 03:51 WBC RBC Hgb Hct MCH MCHC RDW Plt Count Lymph % (Auto) [place] % (Auto) Lymph # (Auto) [place] # (Auto) Seg Neutrophils % Lymphocytes % (Manual) Seg Neutrophils # Seg Neutrophils # Man Lymphocytes # (Manual) D-Dimer ABG pH POC ABG pCO2 54.1 H POC ABG pO2 70.6 L ABG pO2 ABG HCO3 ABG O2 Saturation ABG Base Excess ABG Hemoglobin ABG Oxyhemoglobin 93.1 L ABG Sodium ABG Glucose 144 H Oxyhemoglobin Carboxyhemoglobin Sodium Potassium Carbon Dioxide BUN Creatinine Glucose POC Glucose 145 H 130 H Calcium Phosphorus Magnesium Lactate Dehydrogenase Triglycerides Arterial Blood Glucose 144 H Arterial Blood Ionized Calcium Urine WBC (Auto) Salicylates Acetaminophen 11/29/21 11/29/21 11/29/21 05:51 05:51 12:09 WBC 11.1 H RBC Hgb Hct MCH 26 L MCHC RDW 17.8 H Plt Count Lymph % (Auto) [place] % (Auto) Lymph # (Auto) [place] # (Auto) Seg Neutrophils % Lymphocytes % (Manual) Seg Neutrophils # Seg Neutrophils # Man Lymphocytes # (Manual) D-Dimer ABG pH POC ABG pCO2 POC ABG pO2 ABG pO2 ABG HCO3 ABG O2 Saturation ABG Base Excess ABG Hemoglobin ABG Oxyhemoglobin ABG Sodium ABG Glucose Oxyhemoglobin Carboxyhemoglobin Sodium Potassium Carbon Dioxide 31 H BUN 42 H Creatinine Glucose 133 H POC Glucose 157 H Calcium Phosphorus Magnesium Lactate Dehydrogenase Triglycerides Arterial Blood Glucose Arterial Blood Ionized Calcium Urine WBC (Auto) Salicylates Acetaminophen 11/29/21 11/30/21 11/30/21 17:27 00:23 04:42 WBC RBC 5.05 H Hgb Hct 43.6 H MCH 26 L MCHC RDW 17.5 H Plt Count Lymph % (Auto) [place] % (Auto) Lymph # (Auto) [place] # (Auto) Seg Neutrophils % Lymphocytes % (Manual) Seg Neutrophils # Seg Neutrophils # Man Lymphocytes # (Manual) D-Dimer ABG pH POC ABG pCO2 POC ABG pO2 ABG pO2 ABG HCO3 ABG O2 Saturation ABG Base Excess ABG Hemoglobin ABG Oxyhemoglobin ABG Sodium ABG Glucose Oxyhemoglobin Carboxyhemoglobin Sodium Potassium Carbon Dioxide BUN Creatinine Glucose POC Glucose 164 H 192 H Calcium Phosphorus Magnesium Lactate Dehydrogenase Triglycerides Arterial Blood Glucose Arterial Blood Ionized Calcium Urine WBC (Auto) Salicylates Acetaminophen 11/30/21 11/30/21 11/30/21 04:42 11:27 12:04 WBC RBC Hgb Hct MCH MCHC RDW Plt Count Lymph % (Auto) [place] % (Auto) Lymph # (Auto) [place] # (Auto) Seg Neutrophils % Lymphocytes % (Manual) Seg Neutrophils # Seg Neutrophils # Man Lymphocytes # (Manual) D-Dimer ABG pH POC ABG pCO2 60.0 H POC ABG pO2 68.3 L ABG pO2 ABG HCO3 ABG O2 Saturation ABG Base Excess ABG Hemoglobin ABG Oxyhemoglobin 90.9 L ABG Sodium 145.1 H ABG Glucose 122 H Oxyhemoglobin Carboxyhemoglobin Sodium Potassium Carbon Dioxide BUN 32 H Creatinine 0.5 L Glucose 178 H POC Glucose 156 H Calcium Phosphorus Magnesium Lactate Dehydrogenase Triglycerides Arterial Blood Glucose 122 H Arterial Blood Ionized Calcium Urine WBC (Auto) Salicylates Acetaminophen 11/30/21 11/30/21 12/01/21 17:35 23:51 04:00 WBC 13.8 H RBC Hgb Hct MCH 26 L MCHC RDW 17.6 H Plt Count 455 H Lymph % (Auto) [place] % (Auto) Lymph # (Auto) [place] # (Auto) Seg Neutrophils % Lymphocytes % (Manual) Seg Neutrophils # Seg Neutrophils # Man Lymphocytes # (Manual) D-Dimer ABG pH POC ABG pCO2 POC ABG pO2 ABG pO2 ABG HCO3 ABG O2 Saturation ABG Base Excess ABG Hemoglobin ABG Oxyhemoglobin ABG Sodium ABG Glucose Oxyhemoglobin Carboxyhemoglobin Sodium Potassium Carbon Dioxide BUN Creatinine Glucose POC Glucose 124 H 158 H Calcium Phosphorus Magnesium Lactate Dehydrogenase Triglycerides Arterial Blood Glucose Arterial Blood Ionized Calcium Urine WBC (Auto) Salicylates Acetaminophen 12/01/21 12/01/21 12/01/21 04:00 06:03 11:13 WBC RBC Hgb Hct MCH MCHC RDW Plt Count Lymph % (Auto) [place] % (Auto) Lymph # (Auto) [place] # (Auto) Seg Neutrophils % Lymphocytes % (Manual) Seg Neutrophils # Seg Neutrophils # Man Lymphocytes # (Manual) D-Dimer ABG pH POC ABG pCO2 POC ABG pO2 ABG pO2 ABG HCO3 ABG O2 Saturation ABG Base Excess ABG Hemoglobin ABG Oxyhemoglobin ABG Sodium ABG Glucose Oxyhemoglobin Carboxyhemoglobin Sodium Potassium Carbon Dioxide BUN 36 H Creatinine 0.5 L Glucose 188 H POC Glucose 178 H 121 H Calcium Phosphorus Magnesium Lactate Dehydrogenase Triglycerides Arterial Blood Glucose Arterial Blood Ionized Calcium Urine WBC (Auto) Salicylates Acetaminophen 12/01/21 12/01/21 12/01/21 11:42 16:54 23:43 WBC RBC Hgb Hct MCH MCHC RDW Plt Count Lymph % (Auto) [place] % (Auto) Lymph # (Auto) [place] # (Auto) Seg Neutrophils % Lymphocytes % (Manual) Seg Neutrophils # Seg Neutrophils # Man Lymphocytes # (Manual) D-Dimer ABG pH POC ABG pCO2 POC ABG pO2 ABG pO2 71.0 L ABG HCO3 32.3 H ABG O2 Saturation 94.5 L ABG Base Excess 5.7 H ABG Hemoglobin ABG Oxyhemoglobin ABG Sodium ABG Glucose Oxyhemoglobin 92.6 L Carboxyhemoglobin Sodium Potassium Carbon Dioxide BUN Creatinine Glucose POC Glucose 129 H 115 H Calcium Phosphorus Magnesium Lactate Dehydrogenase Triglycerides Arterial Blood Glucose Arterial Blood Ionized Calcium Urine WBC (Auto) Salicylates Acetaminophen 12/02/21 12/02/21 12/02/21 04:55 04:55 05:19 WBC RBC Hgb Hct MCH 26 L MCHC RDW 18.1 H Plt Count 476 H Lymph % (Auto) [place] % (Auto) Lymph # (Auto) [place] # (Auto) Seg Neutrophils % Lymphocytes % (Manual) Seg Neutrophils # Seg Neutrophils # Man Lymphocytes # (Manual) D-Dimer ABG pH POC ABG pCO2 POC ABG pO2 ABG pO2 ABG HCO3 ABG O2 Saturation ABG Base Excess ABG Hemoglobin ABG Oxyhemoglobin ABG Sodium ABG Glucose Oxyhemoglobin Carboxyhemoglobin Sodium Potassium Carbon Dioxide 33 H BUN 30 H Creatinine 0.5 L Glucose 140 H POC Glucose 127 H Calcium Phosphorus Magnesium Lactate Dehydrogenase Triglycerides Arterial Blood Glucose Arterial Blood Ionized Calcium Urine WBC (Auto) Salicylates Acetaminophen 12/02/21 12/02/21 12/02/21 11:33 17:19 23:49 WBC RBC Hgb Hct MCH MCHC RDW Plt Count Lymph % (Auto) [place] % (Auto) Lymph # (Auto) [place] # (Auto) Seg Neutrophils % Lymphocytes % (Manual) Seg Neutrophils # Seg Neutrophils # Man Lymphocytes # (Manual) D-Dimer ABG pH POC ABG pCO2 POC ABG pO2 ABG pO2 ABG HCO3 ABG O2 Saturation ABG Base Excess ABG Hemoglobin ABG Oxyhemoglobin ABG Sodium ABG Glucose Oxyhemoglobin Carboxyhemoglobin Sodium Potassium Carbon Dioxide BUN Creatinine Glucose POC Glucose 118 H 139 H 140 H Calcium Phosphorus Magnesium Lactate Dehydrogenase Triglycerides Arterial Blood Glucose Arterial Blood Ionized Calcium Urine WBC (Auto) Salicylates Acetaminophen 12/03/21 12/03/21 12/03/21 04:52 04:52 05:03 WBC RBC 5.15 H Hgb Hct 44.2 H MCH 27 L MCHC RDW 17.8 H Plt Count 566 H Lymph % (Auto) [place] % (Auto) Lymph # (Auto) [place] # (Auto) Seg Neutrophils % Lymphocytes % (Manual) Seg Neutrophils # Seg Neutrophils # Man Lymphocytes # (Manual) D-Dimer ABG pH POC ABG pCO2 POC ABG pO2 ABG pO2 ABG HCO3 ABG O2 Saturation ABG Base Excess ABG Hemoglobin ABG Oxyhemoglobin ABG Sodium ABG Glucose Oxyhemoglobin Carboxyhemoglobin Sodium Potassium Carbon Dioxide BUN 22 H Creatinine 0.4 L Glucose 142 H POC Glucose 142 H Calcium Phosphorus Magnesium Lactate Dehydrogenase Triglycerides Arterial Blood Glucose Arterial Blood Ionized Calcium Urine WBC (Auto) Salicylates Acetaminophen 12/03/21 12/03/21 12/04/21 11:16 16:11 04:48 WBC 12.1 H RBC 5.58 H Hgb Hct 47.8 H MCH 26 L MCHC RDW 18.4 H Plt Count 576 H Lymph % (Auto) [place] % (Auto) Lymph # (Auto) [place] # (Auto) Seg Neutrophils % Lymphocytes % (Manual) Seg Neutrophils # Seg Neutrophils # Man Lymphocytes # (Manual) D-Dimer ABG pH POC ABG pCO2 POC ABG pO2 ABG pO2 ABG HCO3 ABG O2 Saturation ABG Base Excess ABG Hemoglobin ABG Oxyhemoglobin ABG Sodium ABG Glucose Oxyhemoglobin Carboxyhemoglobin Sodium Potassium Carbon Dioxide BUN Creatinine Glucose POC Glucose 147 H 140 H Calcium Phosphorus Magnesium Lactate Dehydrogenase Triglycerides Arterial Blood Glucose Arterial Blood Ionized Calcium Urine WBC (Auto) Salicylates Acetaminophen 12/04/21 12/04/21 12/04/21 04:48 05:42 11:54 WBC RBC Hgb Hct MCH MCHC RDW Plt Count Lymph % (Auto) [place] % (Auto) Lymph # (Auto) [place] # (Auto) Seg Neutrophils % Lymphocytes % (Manual) Seg Neutrophils # Seg Neutrophils # Man Lymphocytes # (Manual) D-Dimer ABG pH POC ABG pCO2 POC ABG pO2 ABG pO2 ABG HCO3 ABG O2 Saturation ABG Base Excess ABG Hemoglobin ABG Oxyhemoglobin ABG Sodium ABG Glucose Oxyhemoglobin Carboxyhemoglobin Sodium Potassium Carbon Dioxide BUN 19 H Creatinine 0.5 L Glucose 123 H POC Glucose 111 H 121 H Calcium Phosphorus Magnesium Lactate Dehydrogenase Triglycerides Arterial Blood Glucose Arterial Blood Ionized Calcium Urine WBC (Auto) Salicylates Acetaminophen 12/05/21 12/05/21 12/05/21 07:53 08:02 08:02 WBC 11.3 H RBC 5.94 H Hgb 15.3 H Hct 50.9 H MCH 26 L MCHC RDW 18.3 H Plt Count 611 H Lymph % (Auto) [place] % (Auto) Lymph # (Auto) [place] # (Auto) Seg Neutrophils % Lymphocytes % (Manual) Seg Neutrophils # Seg Neutrophils # Man Lymphocytes # (Manual) D-Dimer ABG pH POC ABG pCO2 POC ABG pO2 ABG pO2 ABG HCO3 ABG O2 Saturation ABG Base Excess ABG Hemoglobin ABG Oxyhemoglobin ABG Sodium ABG Glucose Oxyhemoglobin Carboxyhemoglobin Sodium Potassium Carbon Dioxide BUN 19 H Creatinine 0.5 L Glucose POC Glucose 112 H Calcium Phosphorus Magnesium Lactate Dehydrogenase Triglycerides Arterial Blood Glucose Arterial Blood Ionized Calcium Urine WBC (Auto) Salicylates Acetaminophen 12/05/21 12/05/21 12/06/21 11:10 15:59 07:27 WBC RBC Hgb Hct MCH MCHC RDW Plt Count Lymph % (Auto) [place] % (Auto) Lymph # (Auto) [place] # (Auto) Seg Neutrophils % Lymphocytes % (Manual) Seg Neutrophils # Seg Neutrophils # Man Lymphocytes # (Manual) D-Dimer ABG pH POC ABG pCO2 POC ABG pO2 ABG pO2 ABG HCO3 ABG O2 Saturation ABG Base Excess ABG Hemoglobin ABG Oxyhemoglobin ABG Sodium ABG Glucose Oxyhemoglobin Carboxyhemoglobin Sodium Potassium Carbon Dioxide BUN Creatinine Glucose POC Glucose 125 H 108 H 112 H Calcium Phosphorus Magnesium Lactate Dehydrogenase Triglycerides Arterial Blood Glucose Arterial Blood Ionized Calcium Urine WBC (Auto) Salicylates Acetaminophen 12/06/21 12/06/21 12/06/21 11:45 11:56 16:26 WBC RBC Hgb Hct MCH MCHC RDW Plt Count Lymph % (Auto) [place] % (Auto) Lymph # (Auto) [place] # (Auto) Seg Neutrophils % Lymphocytes % (Manual) Seg Neutrophils # Seg Neutrophils # Man Lymphocytes # (Manual) D-Dimer ABG pH POC ABG pCO2 POC ABG pO2 ABG pO2 75.9 L ABG HCO3 27.1 H ABG O2 Saturation ABG Base Excess ABG Hemoglobin ABG Oxyhemoglobin ABG Sodium ABG Glucose Oxyhemoglobin 93.7 L Carboxyhemoglobin Sodium Potassium Carbon Dioxide BUN Creatinine Glucose POC Glucose 125 H 139 H Calcium Phosphorus Magnesium Lactate Dehydrogenase Triglycerides Arterial Blood Glucose Arterial Blood Ionized Calcium Urine WBC (Auto) Salicylates Acetaminophen 12/06/21 12/06/21 12/07/21 21:48 22:12 08:49 WBC RBC Hgb Hct MCH MCHC RDW Plt Count Lymph % (Auto) [place] % (Auto) Lymph # (Auto) [place] # (Auto) Seg Neutrophils % Lymphocytes % (Manual) Seg Neutrophils # Seg Neutrophils # Man Lymphocytes # (Manual) D-Dimer ABG pH POC ABG pCO2 POC ABG pO2 ABG pO2 ABG HCO3 ABG O2 Saturation ABG Base Excess ABG Hemoglobin ABG Oxyhemoglobin ABG Sodium ABG Glucose Oxyhemoglobin Carboxyhemoglobin Sodium Potassium Carbon Dioxide BUN Creatinine Glucose POC Glucose 130 H 129 H 129 H Calcium Phosphorus Magnesium Lactate Dehydrogenase Triglycerides Arterial Blood Glucose Arterial Blood Ionized Calcium Urine WBC (Auto) Salicylates Acetaminophen 12/07/21 12/08/21 12/08/21 11:38 07:47 11:18 WBC RBC Hgb Hct MCH MCHC RDW Plt Count Lymph % (Auto) [place] % (Auto) Lymph # (Auto) [place] # (Auto) Seg Neutrophils % Lymphocytes % (Manual) Seg Neutrophils # Seg Neutrophils # Man Lymphocytes # (Manual) D-Dimer ABG pH POC ABG pCO2 POC ABG pO2 ABG pO2 ABG HCO3 ABG O2 Saturation ABG Base Excess ABG Hemoglobin ABG Oxyhemoglobin ABG Sodium ABG Glucose Oxyhemoglobin Carboxyhemoglobin Sodium Potassium Carbon Dioxide BUN Creatinine Glucose POC Glucose 146 H 109 H 131 H Calcium Phosphorus Magnesium Lactate Dehydrogenase Triglycerides Arterial Blood Glucose Arterial Blood Ionized Calcium Urine WBC (Auto) Salicylates Acetaminophen Additional Studies: CHEST 1 VIEW 12/06/21 INDICATION / CLINICAL INFORMATION: Pneumonia f/u STUDY TIME: 1120 COMPARISON: 12/01/2021 FINDINGS: SUPPORT DEVICES: None HEART / MEDIASTINUM: Mild cardiac prominence LUNGS / PLEURA: Poor degree of inspiration is seen. A mildly congested appearance is noted and there may be mild interstitial edema. Bibasilar atelectatic changes are noted. No pneumothorax. ADDITIONAL FINDINGS: No significant additional findings. Allied health notes reviewed: nursing
[2021-12-08] MEDS: ARFORMOTEROL 15 MCG/2 ML NEBU IH SCH (20:50)
[2021-12-08] MEDS: BUDESONIDE 0.5 MG/2 ML NEBU IH SCH (20:51)
[2021-12-08] MEDS: ENOXAPARIN 40 MG/0.4 ML INJ SUB-Q SCH (21:47)
[2021-12-09 07:12] LABS: Alanine Aminotransferase 40 units/L (7-56); Albumin 3.8 g/dL (3.9-5); Blood Urea Nitrogen 23 mg/dL (7-17); Calcium 9.6 mg/dL (8.4-10.2); Hemolysis Index 7
[2021-12-09 07:13] LABS: BUN/Creatinine Ratio 38
[2021-12-09 08:54] LABS: Mean Corpuscular HGB Conc 30 % (30-34); Mean Corpuscular Volume 87 fl (79-97); Red Blood Count 6.18 M/mm3 (3.65-5.03); Red Cell Distribution Width 18.9 % (13.2-15.2)
[2021-12-09 08:58] LABS: Hemoglobin 16.3 gm/dl (10.1-14.3)
[2021-12-09 08:59] LABS: Hematocrit 53.7 % (30.3-42.9)
[2021-12-09] MEDS: ARFORMOTEROL 15 MCG/2 ML NEBU IH SCH ×3 (09:01→21:16)
[2021-12-09] MEDS: BUDESONIDE 0.5 MG/2 ML NEBU IH SCH ×2 (09:02→21:16)
[2021-12-09] MEDS: FAMOTIDINE 20 MG TAB FEEDTUBE SCH ×2 (10:06→22:09)
[2021-12-09] MEDS: LOSARTAN 50 MG TAB PO SCH (10:06)
[2021-12-09] MEDS: ASPIRIN EC 81 MG TAB PO SCH (10:06)
[2021-12-09] MEDS: SENNOSIDES/DOCUSATE SODIUM 8.6/50 MG TAB FEEDTUBE SCH ×2 (10:06→22:09)
[2021-12-09] MEDS: carvediloL 12.5 MG TAB FEEDTUBE SCH ×2 (10:06→22:10)
[2021-12-09] MEDS: amLODIPine 10 MG TAB PO SCH (10:07)
[2021-12-09] MEDS: INSULIN LISPRO 100 UNIT/ML SUB-Q SCH ×4 (10:17→23:30)
--- NOTE | 2021-12-09 12:05 | Progress Note ---
Assessment and Plan Acute exacerbation of chronic obstructive lung disease Acute hypoxemic respiratory failure Acute congestive heart failure exacerbation (? Flash Pulmonary edema) Community-acquired pneumonia Leukocytosis History of coronary artery disease Gastroesophageal reflux disease Arthritis Hyperlipidemia Obesity Elevated D-dimers Acute toxic metabolic encephalopathy Urinary tract infection Likely pulmonary hypertension Hypertensive emergency - continue BIPAP scheduled qhs - continue care as below otherwise; - wean supplemental oxygen for target O2 sat's > 90% acutely - continue aspiration precautions - bronchodilators (LIZZY & LABA) with pulmonary hygiene per RT - continue Pulmicort re: COPD - avoid nephrotoxins, renally dose all medications - continue accuchecks with glycemic control per SSI for target blood glucose of < 180 mg/dL; avoid hypoglycemia - continue to avoid benzodiazepine's, reduce the possibility of delirium - completed AB's course - prn analgesia per pain score - Maintenance of sleep-wake cycle, avoid delirium - continue enteral nutritional support at goal rate as tolerated - G.I. & VTE prophylaxis - PT/OT/ROM exercises - continue mobility protocols for pressure ulcer prophylaxis - Monitor hemodynamics closely - continue other care per attending / other consultants - discharge planning ongoing concurrently COVID SPECIFIC INTERVENTIONS: - COVID-19 test negative .... Re-evaluate in am & prn Subjective Date of service: 12/09/21 Principal diagnosis: AE-COPD; AHRF; CHF (? new onset); CAP; CAD; Obesity; HTNsive Emergency Interval history: Patient is seen today for: AE-COPD; Acute hypoxemic respiratory failure; CHF (? new onset); CAP; CAD; Obesity; HTNsive Emergency Seen and examined at bedside; 24hour events reviewed; nursing and respiratory care staff consulted; no adverse overnight events reported to me; resting peacefully in bed; denies chest pain; no N/V/F/C; remains on supplemental oxygen Objective Vital Signs - 12hr 12/09/21 12/09/21 12/09/21 03:42 08:00 08:45 Temperature 98.1 F 97.9 F Pulse Rate 81 76 Pulse Rate [ 76 Anterior Bilateral Throughout] Respiratory 20 15 Rate Respiratory 18 Rate [Anterior Bilateral Throughout] Blood Pressure 142/74 153/80 O2 Sat by Pulse 94 94 Oximetry 12/09/21 12/09/21 09:05 10:00 Temperature Pulse Rate Pulse Rate [ Anterior Bilateral Throughout] Respiratory Rate Respiratory Rate [Anterior Bilateral Throughout] Blood Pressure O2 Sat by Pulse 96 94 Oximetry Constitutional: no acute distress, other (elderly obese female with mildly increased respiratory effort at rest ) Eyes: non-icteric ENT: oropharynx moist Neck: supple, no lymphadenopathy, no JVD, other (large circumference) Effort: mildly labored Ascultation: Bilateral: diminished breath sounds, rhonchi (scant bases) Percussion: Bilateral: not dull Cardiovascular: regular rate and rhythm Gastrointestinal: normoactive bowel sounds, soft, non-tender, non-distended (protuberant) Integumentary: normal Extremities: no cyanosis, no edema, pulses normal, no ischemia or petechiae Neurologic: non-focal exam (grossly), pupils equal and round, CN II-XII normal Psychiatric: mood appropriate, affect normal, other (mild delirium) CBC and BMP: 12/09/21 06:23 12/09/21 06:23 ABG, PT/INR, D-dimer: ABG ABG pH 7.446 pH Units (7.350-7.450) 12/06/21 11:45 POC ABG pCO2 60.0 mmHg (32.0-48.0) H 11/30/21 12:04 ABG pCO2 40.3 mm Hg 12/06/21 11:45 POC ABG pO2 68.3 mmHg (83-108) L 11/30/21 12:04 ABG pO2 75.9 mm Hg (80.0-90.0) L 12/06/21 11:45 POC ABG HCO3 32.9 11/30/21 12:04 ABG O2 Saturation 95.9 % (95.0-99.0) 12/06/21 11:45 PT/INR, D-dimer PT 12.9 Sec. (12.2-14.9) 11/18/21 00:19 INR 0.88 (0.87-1.13) 11/18/21 00:19 D-Dimer 464.80 ng/mlDDU (0-234) H 11/18/21 05:15 Abnormal lab findings: Abnormal Labs 11/18/21 11/18/21 11/18/21 00:01 00:19 00:19 WBC 15.6 H RBC 5.59 H Hgb 14.8 H Hct 49.8 H MCH 27 L MCHC RDW 16.9 H Plt Count Lymph % (Auto) [place] % (Auto) Lymph # (Auto) [place] # (Auto) Seg Neutrophils % Lymphocytes % (Manual) 4.0 L Seg Neutrophils # Seg Neutrophils # Man 14.7 H Lymphocytes # (Manual) 0.6 L D-Dimer ABG pH POC ABG pCO2 POC ABG pO2 ABG pO2 ABG HCO3 ABG O2 Saturation ABG Base Excess ABG Hemoglobin ABG Oxyhemoglobin ABG Sodium ABG Glucose Oxyhemoglobin Carboxyhemoglobin Sodium Potassium Chloride Carbon Dioxide BUN Creatinine Glucose 148 H POC Glucose 151 H Calcium Phosphorus Magnesium AST Lactate Dehydrogenase Albumin Triglycerides Arterial Blood Glucose Arterial Blood Ionized Calcium Urine WBC (Auto) Salicylates Acetaminophen 11/18/21 11/18/21 11/18/21 00:19 00:19 00:19 WBC RBC Hgb Hct MCH MCHC RDW Plt Count Lymph % (Auto) [place] % (Auto) Lymph # (Auto) [place] # (Auto) Seg Neutrophils % Lymphocytes % (Manual) Seg Neutrophils # Seg Neutrophils # Man Lymphocytes # (Manual) D-Dimer ABG pH POC ABG pCO2 POC ABG pO2 ABG pO2 ABG HCO3 ABG O2 Saturation ABG Base Excess ABG Hemoglobin ABG Oxyhemoglobin ABG Sodium ABG Glucose Oxyhemoglobin Carboxyhemoglobin Sodium Potassium Chloride Carbon Dioxide BUN Creatinine Glucose POC Glucose Calcium Phosphorus Magnesium 2.50 H AST Lactate Dehydrogenase Albumin Triglycerides Arterial Blood Glucose Arterial Blood Ionized Calcium Urine WBC (Auto) Salicylates < 0.3 L Acetaminophen 5.0 L 11/18/21 11/18/21 11/18/21 01:03 02:00 05:15 WBC RBC Hgb Hct MCH MCHC RDW Plt Count Lymph % (Auto) [place] % (Auto) Lymph # (Auto) [place] # (Auto) Seg Neutrophils % Lymphocytes % (Manual) Seg Neutrophils # Seg Neutrophils # Man Lymphocytes # (Manual) D-Dimer 464.80 H ABG pH POC ABG pCO2 POC ABG pO2 ABG pO2 ABG HCO3 35.8 H ABG O2 Saturation ABG Base Excess 7.8 H ABG Hemoglobin ABG Oxyhemoglobin ABG Sodium ABG Glucose Oxyhemoglobin 91.9 L Carboxyhemoglobin Sodium Potassium Chloride Carbon Dioxide BUN Creatinine Glucose POC Glucose Calcium Phosphorus Magnesium AST Lactate Dehydrogenase Albumin Triglycerides Arterial Blood Glucose Arterial Blood Ionized Calcium Urine WBC (Auto) 16.0 H Salicylates Acetaminophen 11/18/21 11/18/21 11/18/21 05:15 15:47 15:47 WBC 13.5 H RBC 5.60 H Hgb 14.9 H Hct 49.1 H MCH 27 L MCHC RDW 17.3 H Plt Count Lymph % (Auto) 7.9 L [place] % (Auto) 10.1 H Lymph # (Auto) 1.1 L [place] # (Auto) 1.4 H Seg Neutrophils % 81.7 H Lymphocytes % (Manual) Seg Neutrophils # 11.0 H Seg Neutrophils # Man Lymphocytes # (Manual) D-Dimer ABG pH POC ABG pCO2 POC ABG pO2 ABG pO2 ABG HCO3 ABG O2 Saturation ABG Base Excess ABG Hemoglobin ABG Oxyhemoglobin ABG Sodium ABG Glucose Oxyhemoglobin Carboxyhemoglobin Sodium Potassium Chloride Carbon Dioxide BUN Creatinine Glucose 138 H POC Glucose Calcium Phosphorus Magnesium AST Lactate Dehydrogenase 275 H Albumin Triglycerides Arterial Blood Glucose Arterial Blood Ionized Calcium Urine WBC (Auto) Salicylates Acetaminophen 11/18/21 11/18/21 11/19/21 18:45 23:33 04:58 WBC RBC Hgb Hct MCH MCHC RDW Plt Count Lymph % (Auto) [place] % (Auto) Lymph # (Auto) [place] # (Auto) Seg Neutrophils % Lymphocytes % (Manual) Seg Neutrophils # Seg Neutrophils # Man Lymphocytes # (Manual) D-Dimer ABG pH POC ABG pCO2 POC ABG pO2 ABG pO2 ABG HCO3 ABG O2 Saturation ABG Base Excess ABG Hemoglobin ABG Oxyhemoglobin ABG Sodium ABG Glucose Oxyhemoglobin Carboxyhemoglobin Sodium Potassium Chloride Carbon Dioxide BUN Creatinine Glucose 130 H POC Glucose 132 H 113 H Calcium Phosphorus Magnesium AST Lactate Dehydrogenase Albumin Triglycerides Arterial Blood Glucose Arterial Blood Ionized Calcium Urine WBC (Auto) Salicylates Acetaminophen 11/19/21 11/19/21 11/19/21 07:59 07:59 08:55 WBC 12.7 H RBC 5.29 H Hgb Hct 45.5 H MCH 26 L MCHC RDW 17.4 H Plt Count Lymph % (Auto) 12.3 L [place] % (Auto) 9.6 H Lymph # (Auto) [place] # (Auto) 1.2 H Seg Neutrophils % 76.9 H Lymphocytes % (Manual) Seg Neutrophils # 9.7 H Seg Neutrophils # Man Lymphocytes # (Manual) D-Dimer ABG pH 7.518 H POC ABG pCO2 POC ABG pO2 ABG pO2 77.6 L ABG HCO3 30.1 H ABG O2 Saturation ABG Base Excess 6.9 H ABG Hemoglobin ABG Oxyhemoglobin ABG Sodium ABG Glucose Oxyhemoglobin Carboxyhemoglobin Sodium Potassium 3.1 L D Chloride Carbon Dioxide BUN Creatinine Glucose 115 H POC Glucose Calcium 8.1 L Phosphorus Magnesium AST Lactate Dehydrogenase Albumin Triglycerides Arterial Blood Glucose Arterial Blood Ionized Calcium Urine WBC (Auto) Salicylates Acetaminophen 11/19/21 11/19/21 11/20/21 11:33 16:22 04:20 WBC 13.9 H RBC 5.44 H Hgb Hct 49.3 H MCH 26 L MCHC 29 L RDW 18.3 H Plt Count Lymph % (Auto) [place] % (Auto) Lymph # (Auto) [place] # (Auto) Seg Neutrophils % Lymphocytes % (Manual) Seg Neutrophils # Seg Neutrophils # Man Lymphocytes # (Manual) D-Dimer ABG pH POC ABG pCO2 POC ABG pO2 ABG pO2 ABG HCO3 ABG O2 Saturation ABG Base Excess ABG Hemoglobin ABG Oxyhemoglobin ABG Sodium ABG Glucose Oxyhemoglobin Carboxyhemoglobin Sodium Potassium Chloride Carbon Dioxide BUN Creatinine Glucose POC Glucose 119 H 112 H Calcium Phosphorus Magnesium AST Lactate Dehydrogenase Albumin Triglycerides Arterial Blood Glucose Arterial Blood Ionized Calcium Urine WBC (Auto) Salicylates Acetaminophen 11/20/21 11/20/21 11/20/21 04:20 11:07 12:02 WBC RBC Hgb Hct MCH MCHC RDW Plt Count Lymph % (Auto) [place] % (Auto) Lymph # (Auto) [place] # (Auto) Seg Neutrophils % Lymphocytes % (Manual) Seg Neutrophils # Seg Neutrophils # Man Lymphocytes # (Manual) D-Dimer ABG pH 7.251 L POC ABG pCO2 POC ABG pO2 ABG pO2 66.3 L ABG HCO3 30.2 H ABG O2 Saturation 91.8 L ABG Base Excess ABG Hemoglobin ABG Oxyhemoglobin ABG Sodium ABG Glucose Oxyhemoglobin 89.4 L Carboxyhemoglobin Sodium 147 H Potassium Chloride Carbon Dioxide BUN 25 H Creatinine Glucose POC Glucose 118 H Calcium Phosphorus 6.40 H Magnesium AST Lactate Dehydrogenase Albumin Triglycerides Arterial Blood Glucose Arterial Blood Ionized Calcium Urine WBC (Auto) Salicylates Acetaminophen 11/20/21 11/21/21 11/21/21 17:31 00:07 04:44 WBC 14.0 H RBC 5.08 H Hgb Hct 44.7 H MCH 26 L MCHC 29 L RDW 17.8 H Plt Count Lymph % (Auto) [place] % (Auto) Lymph # (Auto) [place] # (Auto) Seg Neutrophils % Lymphocytes % (Manual) Seg Neutrophils # Seg Neutrophils # Man Lymphocytes # (Manual) D-Dimer ABG pH POC ABG pCO2 POC ABG pO2 ABG pO2 ABG HCO3 ABG O2 Saturation ABG Base Excess ABG Hemoglobin ABG Oxyhemoglobin ABG Sodium ABG Glucose Oxyhemoglobin Carboxyhemoglobin Sodium Potassium Chloride Carbon Dioxide BUN Creatinine Glucose POC Glucose 139 H 147 H Calcium Phosphorus Magnesium AST Lactate Dehydrogenase Albumin Triglycerides Arterial Blood Glucose Arterial Blood Ionized Calcium Urine WBC (Auto) Salicylates Acetaminophen 11/21/21 11/21/21 11/21/21 04:44 06:06 11:45 WBC RBC Hgb Hct MCH MCHC RDW Plt Count Lymph % (Auto) [place] % (Auto) Lymph # (Auto) [place] # (Auto) Seg Neutrophils % Lymphocytes % (Manual) Seg Neutrophils # Seg Neutrophils # Man Lymphocytes # (Manual) D-Dimer ABG pH POC ABG pCO2 POC ABG pO2 ABG pO2 ABG HCO3 ABG O2 Saturation ABG Base Excess ABG Hemoglobin ABG Oxyhemoglobin ABG Sodium ABG Glucose Oxyhemoglobin Carboxyhemoglobin Sodium Potassium Chloride Carbon Dioxide BUN 20 H Creatinine Glucose 157 H POC Glucose 158 H 119 H Calcium Phosphorus Magnesium AST Lactate Dehydrogenase Albumin Triglycerides Arterial Blood Glucose Arterial Blood Ionized Calcium Urine WBC (Auto) Salicylates Acetaminophen 11/21/21 11/21/21 11/22/21 11:50 16:54 00:03 WBC RBC Hgb Hct MCH MCHC RDW Plt Count Lymph % (Auto) [place] % (Auto) Lymph # (Auto) [place] # (Auto) Seg Neutrophils % Lymphocytes % (Manual) Seg Neutrophils # Seg Neutrophils # Man Lymphocytes # (Manual) D-Dimer ABG pH POC ABG pCO2 POC ABG pO2 ABG pO2 61.8 L ABG HCO3 35.2 H ABG O2 Saturation 92.8 L ABG Base Excess 8.1 H ABG Hemoglobin ABG Oxyhemoglobin ABG Sodium ABG Glucose Oxyhemoglobin 90.6 L Carboxyhemoglobin Sodium Potassium Chloride Carbon Dioxide BUN Creatinine Glucose POC Glucose 149 H 133 H Calcium Phosphorus Magnesium AST Lactate Dehydrogenase Albumin Triglycerides Arterial Blood Glucose Arterial Blood Ionized Calcium Urine WBC (Auto) Salicylates Acetaminophen 11/22/21 11/22/21 11/22/21 04:39 04:39 04:39 WBC 14.1 H RBC Hgb Hct 43.4 H MCH 26 L MCHC RDW 17.9 H Plt Count Lymph % (Auto) [place] % (Auto) Lymph # (Auto) [place] # (Auto) Seg Neutrophils % Lymphocytes % (Manual) Seg Neutrophils # Seg Neutrophils # Man Lymphocytes # (Manual) D-Dimer ABG pH POC ABG pCO2 POC ABG pO2 ABG pO2 ABG HCO3 ABG O2 Saturation ABG Base Excess ABG Hemoglobin ABG Oxyhemoglobin ABG Sodium ABG Glucose Oxyhemoglobin Carboxyhemoglobin Sodium Potassium Chloride Carbon Dioxide 33 H BUN Creatinine Glucose 152 H POC Glucose Calcium Phosphorus Magnesium AST Lactate Dehydrogenase Albumin Triglycerides 185 H Arterial Blood Glucose Arterial Blood Ionized Calcium Urine WBC (Auto) Salicylates Acetaminophen 11/22/21 11/22/21 11/22/21 05:02 10:56 11:31 WBC RBC Hgb Hct MCH MCHC RDW Plt Count Lymph % (Auto) [place] % (Auto) Lymph # (Auto) [place] # (Auto) Seg Neutrophils % Lymphocytes % (Manual) Seg Neutrophils # Seg Neutrophils # Man Lymphocytes # (Manual) D-Dimer ABG pH POC ABG pCO2 POC ABG pO2 ABG pO2 55.3 L ABG HCO3 39.4 H ABG O2 Saturation 89.5 L ABG Base Excess 11.7 H ABG Hemoglobin ABG Oxyhemoglobin ABG Sodium ABG Glucose Oxyhemoglobin 87.2 L Carboxyhemoglobin Sodium Potassium Chloride Carbon Dioxide BUN Creatinine Glucose POC Glucose 158 H 116 H Calcium Phosphorus Magnesium AST Lactate Dehydrogenase Albumin Triglycerides Arterial Blood Glucose Arterial Blood Ionized Calcium Urine WBC (Auto) Salicylates Acetaminophen 11/22/21 11/22/21 11/23/21 17:29 23:22 04:49 WBC 13.6 H RBC 5.18 H Hgb Hct 45.6 H MCH 25 L MCHC 29 L RDW 17.5 H Plt Count Lymph % (Auto) [place] % (Auto) Lymph # (Auto) [place] # (Auto) Seg Neutrophils % Lymphocytes % (Manual) Seg Neutrophils # Seg Neutrophils # Man Lymphocytes # (Manual) D-Dimer ABG pH POC ABG pCO2 POC ABG pO2 ABG pO2 ABG HCO3 ABG O2 Saturation ABG Base Excess ABG Hemoglobin ABG Oxyhemoglobin ABG Sodium ABG Glucose Oxyhemoglobin Carboxyhemoglobin Sodium Potassium Chloride Carbon Dioxide BUN Creatinine Glucose POC Glucose 129 H 171 H Calcium Phosphorus Magnesium AST Lactate Dehydrogenase Albumin Triglycerides Arterial Blood Glucose Arterial Blood Ionized Calcium Urine WBC (Auto) Salicylates Acetaminophen 11/23/21 11/23/21 11/23/21 04:49 11:53 16:22 WBC RBC Hgb Hct MCH MCHC RDW Plt Count Lymph % (Auto) [place] % (Auto) Lymph # (Auto) [place] # (Auto) Seg Neutrophils % Lymphocytes % (Manual) Seg Neutrophils # Seg Neutrophils # Man Lymphocytes # (Manual) D-Dimer ABG pH POC ABG pCO2 POC ABG pO2 ABG pO2 61.8 L ABG HCO3 40.9 H ABG O2 Saturation 93.4 L ABG Base Excess 14.6 H ABG Hemoglobin 6.9 L ABG Oxyhemoglobin ABG Sodium ABG Glucose Oxyhemoglobin 90.2 L Carboxyhemoglobin Sodium 146 H Potassium Chloride Carbon Dioxide 36 H BUN 21 H Creatinine Glucose 155 H POC Glucose 166 H Calcium Phosphorus Magnesium AST Lactate Dehydrogenase Albumin Triglycerides Arterial Blood Glucose Arterial Blood Ionized Calcium Urine WBC (Auto) Salicylates Acetaminophen 11/23/21 11/23/21 11/24/21 17:11 23:07 05:03 WBC RBC Hgb Hct MCH MCHC RDW Plt Count Lymph % (Auto) [place] % (Auto) Lymph # (Auto) [place] # (Auto) Seg Neutrophils % Lymphocytes % (Manual) Seg Neutrophils # Seg Neutrophils # Man Lymphocytes # (Manual) D-Dimer ABG pH POC ABG pCO2 POC ABG pO2 ABG pO2 ABG HCO3 ABG O2 Saturation ABG Base Excess ABG Hemoglobin ABG Oxyhemoglobin ABG Sodium ABG Glucose Oxyhemoglobin Carboxyhemoglobin Sodium Potassium Chloride Carbon Dioxide BUN Creatinine Glucose POC Glucose 142 H 197 H 183 H Calcium Phosphorus Magnesium AST Lactate Dehydrogenase Albumin Triglycerides Arterial Blood Glucose Arterial Blood Ionized Calcium Urine WBC (Auto) Salicylates Acetaminophen 11/24/21 11/24/21 11/24/21 08:33 08:33 09:00 WBC RBC Hgb Hct 43.6 H MCH 26 L MCHC RDW 18.0 H Plt Count Lymph % (Auto) [place] % (Auto) Lymph # (Auto) [place] # (Auto) Seg Neutrophils % Lymphocytes % (Manual) Seg Neutrophils # Seg Neutrophils # Man Lymphocytes # (Manual) D-Dimer ABG pH POC ABG pCO2 POC ABG pO2 ABG pO2 69.1 L ABG HCO3 40.1 H ABG O2 Saturation 93.2 L ABG Base Excess 11.9 H ABG Hemoglobin ABG Oxyhemoglobin ABG Sodium ABG Glucose Oxyhemoglobin 90.3 L Carboxyhemoglobin Sodium Potassium 5.3 H D Chloride Carbon Dioxide 36 H BUN 25 H Creatinine 0.5 L Glucose 185 H POC Glucose Calcium Phosphorus Magnesium AST Lactate Dehydrogenase Albumin Triglycerides Arterial Blood Glucose Arterial Blood Ionized Calcium Urine WBC (Auto) Salicylates Acetaminophen 11/24/21 11/24/21 11/25/21 12:00 18:08 00:50 WBC RBC Hgb Hct MCH MCHC RDW Plt Count Lymph % (Auto) [place] % (Auto) Lymph # (Auto) [place] # (Auto) Seg Neutrophils % Lymphocytes % (Manual) Seg Neutrophils # Seg Neutrophils # Man Lymphocytes # (Manual) D-Dimer ABG pH POC ABG pCO2 POC ABG pO2 ABG pO2 67.3 L ABG HCO3 41.6 H 42.7 H ABG O2 Saturation 94.5 L ABG Base Excess 12.3 H 14.7 H ABG Hemoglobin ABG Oxyhemoglobin ABG Sodium ABG Glucose Oxyhemoglobin 93.1 L 91.6 L Carboxyhemoglobin Sodium Potassium Chloride Carbon Dioxide BUN Creatinine Glucose POC Glucose 168 H Calcium Phosphorus Magnesium AST Lactate Dehydrogenase Albumin Triglycerides Arterial Blood Glucose Arterial Blood Ionized Calcium Urine WBC (Auto) Salicylates Acetaminophen 11/25/21 11/25/21 11/25/21 04:57 04:57 14:18 WBC RBC 5.13 H Hgb Hct 45.1 H MCH 26 L MCHC RDW 17.7 H Plt Count Lymph % (Auto) [place] % (Auto) Lymph # (Auto) [place] # (Auto) Seg Neutrophils % Lymphocytes % (Manual) Seg Neutrophils # Seg Neutrophils # Man Lymphocytes # (Manual) D-Dimer ABG pH POC ABG pCO2 POC ABG pO2 ABG pO2 65.1 L ABG HCO3 41.7 H ABG O2 Saturation 94.2 L ABG Base Excess 13.4 H ABG Hemoglobin ABG Oxyhemoglobin ABG Sodium ABG Glucose Oxyhemoglobin 91.3 L Carboxyhemoglobin Sodium 146 H Potassium Chloride Carbon Dioxide 38 H BUN 26 H Creatinine 0.5 L Glucose 210 H POC Glucose Calcium Phosphorus Magnesium AST Lactate Dehydrogenase Albumin Triglycerides Arterial Blood Glucose Arterial Blood Ionized Calcium Urine WBC (Auto) Salicylates Acetaminophen 11/25/21 11/26/21 11/26/21 19:22 04:28 04:28 WBC RBC 5.05 H Hgb Hct 44.0 H MCH 26 L MCHC RDW 17.6 H Plt Count Lymph % (Auto) [place] % (Auto) Lymph # (Auto) [place] # (Auto) Seg Neutrophils % Lymphocytes % (Manual) Seg Neutrophils # Seg Neutrophils # Man Lymphocytes # (Manual) D-Dimer ABG pH POC ABG pCO2 POC ABG pO2 ABG pO2 ABG HCO3 ABG O2 Saturation ABG Base Excess ABG Hemoglobin ABG Oxyhemoglobin ABG Sodium ABG Glucose Oxyhemoglobin Carboxyhemoglobin Sodium 146 H Potassium Chloride Carbon Dioxide 38 H BUN 30 H Creatinine Glucose 124 H POC Glucose 151 H Calcium 10.5 H Phosphorus Magnesium AST Lactate Dehydrogenase Albumin Triglycerides Arterial Blood Glucose Arterial Blood Ionized Calcium Urine WBC (Auto) Salicylates Acetaminophen 11/26/21 11/26/21 11/27/21 05:50 10:28 08:31 WBC 12.4 H RBC 5.62 H Hgb 14.6 H Hct 48.7 H MCH 26 L MCHC RDW 17.9 H Plt Count 469 H Lymph % (Auto) [place] % (Auto) Lymph # (Auto) [place] # (Auto) Seg Neutrophils % Lymphocytes % (Manual) Seg Neutrophils # Seg Neutrophils # Man Lymphocytes # (Manual) D-Dimer ABG pH POC ABG pCO2 POC ABG pO2 ABG pO2 66.5 L ABG HCO3 39.6 H ABG O2 Saturation 92.9 L ABG Base Excess 11.4 H ABG Hemoglobin 16.8 H ABG Oxyhemoglobin ABG Sodium ABG Glucose Oxyhemoglobin 90.3 L Carboxyhemoglobin Sodium Potassium Chloride Carbon Dioxide BUN Creatinine Glucose POC Glucose 121 H Calcium Phosphorus Magnesium AST Lactate Dehydrogenase Albumin Triglycerides Arterial Blood Glucose Arterial Blood Ionized Calcium Urine WBC (Auto) Salicylates Acetaminophen 11/27/21 11/27/21 11/27/21 08:31 09:46 11:49 WBC RBC Hgb Hct MCH MCHC RDW Plt Count Lymph % (Auto) [place] % (Auto) Lymph # (Auto) [place] # (Auto) Seg Neutrophils % Lymphocytes % (Manual) Seg Neutrophils # Seg Neutrophils # Man Lymphocytes # (Manual) D-Dimer ABG pH POC ABG pCO2 POC ABG pO2 ABG pO2 ABG HCO3 ABG O2 Saturation ABG Base Excess ABG Hemoglobin ABG Oxyhemoglobin ABG Sodium ABG Glucose Oxyhemoglobin Carboxyhemoglobin Sodium 150 H Potassium Chloride Carbon Dioxide 33 H BUN 31 H Creatinine Glucose 135 H POC Glucose 140 H 153 H Calcium 11.0 H Phosphorus Magnesium AST Lactate Dehydrogenase Albumin Triglycerides Arterial Blood Glucose Arterial Blood Ionized Calcium Urine WBC (Auto) Salicylates Acetaminophen 11/27/21 11/27/21 11/27/21 14:16 17:14 23:25 WBC RBC Hgb Hct MCH MCHC RDW Plt Count Lymph % (Auto) [place] % (Auto) Lymph # (Auto) [place] # (Auto) Seg Neutrophils % Lymphocytes % (Manual) Seg Neutrophils # Seg Neutrophils # Man Lymphocytes # (Manual) D-Dimer ABG pH 7.485 H POC ABG pCO2 48.7 H POC ABG pO2 74.5 L ABG pO2 ABG HCO3 ABG O2 Saturation ABG Base Excess ABG Hemoglobin ABG Oxyhemoglobin ABG Sodium 145.5 H ABG Glucose 153 H Oxyhemoglobin Carboxyhemoglobin 1.6 H Sodium Potassium Chloride Carbon Dioxide BUN Creatinine Glucose POC Glucose 142 H 123 H Calcium Phosphorus Magnesium AST Lactate Dehydrogenase Albumin Triglycerides Arterial Blood Glucose 153 H Arterial Blood Ionized Calcium 5.4 H Urine WBC (Auto) Salicylates Acetaminophen 11/28/21 11/28/21 11/28/21 03:38 03:38 05:16 WBC RBC 5.05 H Hgb Hct 43.6 H MCH 26 L MCHC RDW 17.8 H Plt Count Lymph % (Auto) [place] % (Auto) Lymph # (Auto) [place] # (Auto) Seg Neutrophils % Lymphocytes % (Manual) Seg Neutrophils # Seg Neutrophils # Man Lymphocytes # (Manual) D-Dimer ABG pH POC ABG pCO2 POC ABG pO2 ABG pO2 ABG HCO3 ABG O2 Saturation ABG Base Excess ABG Hemoglobin ABG Oxyhemoglobin ABG Sodium ABG Glucose Oxyhemoglobin Carboxyhemoglobin Sodium 150 H Potassium Chloride Carbon Dioxide 32 H BUN 51 H Creatinine Glucose 143 H POC Glucose 138 H Calcium 10.5 H Phosphorus Magnesium AST Lactate Dehydrogenase Albumin Triglycerides Arterial Blood Glucose Arterial Blood Ionized Calcium Urine WBC (Auto) Salicylates Acetaminophen 11/28/21 11/28/21 11/29/21 17:01 23:51 03:51 WBC RBC Hgb Hct MCH MCHC RDW Plt Count Lymph % (Auto) [place] % (Auto) Lymph # (Auto) [place] # (Auto) Seg Neutrophils % Lymphocytes % (Manual) Seg Neutrophils # Seg Neutrophils # Man Lymphocytes # (Manual) D-Dimer ABG pH POC ABG pCO2 54.1 H POC ABG pO2 70.6 L ABG pO2 ABG HCO3 ABG O2 Saturation ABG Base Excess ABG Hemoglobin ABG Oxyhemoglobin 93.1 L ABG Sodium ABG Glucose 144 H Oxyhemoglobin Carboxyhemoglobin Sodium Potassium Chloride Carbon Dioxide BUN Creatinine Glucose POC Glucose 145 H 130 H Calcium Phosphorus Magnesium AST Lactate Dehydrogenase Albumin Triglycerides Arterial Blood Glucose 144 H Arterial Blood Ionized Calcium Urine WBC (Auto) Salicylates Acetaminophen 11/29/21 11/29/21 11/29/21 05:51 05:51 12:09 WBC 11.1 H RBC Hgb Hct MCH 26 L MCHC RDW 17.8 H Plt Count Lymph % (Auto) [place] % (Auto) Lymph # (Auto) [place] # (Auto) Seg Neutrophils % Lymphocytes % (Manual) Seg Neutrophils # Seg Neutrophils # Man Lymphocytes # (Manual) D-Dimer ABG pH POC ABG pCO2 POC ABG pO2 ABG pO2 ABG HCO3 ABG O2 Saturation ABG Base Excess ABG Hemoglobin ABG Oxyhemoglobin ABG Sodium ABG Glucose Oxyhemoglobin Carboxyhemoglobin Sodium Potassium Chloride Carbon Dioxide 31 H BUN 42 H Creatinine Glucose 133 H POC Glucose 157 H Calcium Phosphorus Magnesium AST Lactate Dehydrogenase Albumin Triglycerides Arterial Blood Glucose Arterial Blood Ionized Calcium Urine WBC (Auto) Salicylates Acetaminophen 11/29/21 11/30/21 11/30/21 17:27 00:23 04:42 WBC RBC 5.05 H Hgb Hct 43.6 H MCH 26 L MCHC RDW 17.5 H Plt Count Lymph % (Auto) [place] % (Auto) Lymph # (Auto) [place] # (Auto) Seg Neutrophils % Lymphocytes % (Manual) Seg Neutrophils # Seg Neutrophils # Man Lymphocytes # (Manual) D-Dimer ABG pH POC ABG pCO2 POC ABG pO2 ABG pO2 ABG HCO3 ABG O2 Saturation ABG Base Excess ABG Hemoglobin ABG Oxyhemoglobin ABG Sodium ABG Glucose Oxyhemoglobin Carboxyhemoglobin Sodium Potassium Chloride Carbon Dioxide BUN Creatinine Glucose POC Glucose 164 H 192 H Calcium Phosphorus Magnesium AST Lactate Dehydrogenase Albumin Triglycerides Arterial Blood Glucose Arterial Blood Ionized Calcium Urine WBC (Auto) Salicylates Acetaminophen 11/30/21 11/30/21 11/30/21 04:42 11:27 12:04 WBC RBC Hgb Hct MCH MCHC RDW Plt Count Lymph % (Auto) [place] % (Auto) Lymph # (Auto) [place] # (Auto) Seg Neutrophils % Lymphocytes % (Manual) Seg Neutrophils # Seg Neutrophils # Man Lymphocytes # (Manual) D-Dimer ABG pH POC ABG pCO2 60.0 H POC ABG pO2 68.3 L ABG pO2 ABG HCO3 ABG O2 Saturation ABG Base Excess ABG Hemoglobin ABG Oxyhemoglobin 90.9 L ABG Sodium 145.1 H ABG Glucose 122 H Oxyhemoglobin Carboxyhemoglobin Sodium Potassium Chloride Carbon Dioxide BUN 32 H Creatinine 0.5 L Glucose 178 H POC Glucose 156 H Calcium Phosphorus Magnesium AST Lactate Dehydrogenase Albumin Triglycerides Arterial Blood Glucose 122 H Arterial Blood Ionized Calcium Urine WBC (Auto) Salicylates Acetaminophen 11/30/21 11/30/21 12/01/21 17:35 23:51 04:00 WBC 13.8 H RBC Hgb Hct MCH 26 L MCHC RDW 17.6 H Plt Count 455 H Lymph % (Auto) [place] % (Auto) Lymph # (Auto) [place] # (Auto) Seg Neutrophils % Lymphocytes % (Manual) Seg Neutrophils # Seg Neutrophils # Man Lymphocytes # (Manual) D-Dimer ABG pH POC ABG pCO2 POC ABG pO2 ABG pO2 ABG HCO3 ABG O2 Saturation ABG Base Excess ABG Hemoglobin ABG Oxyhemoglobin ABG Sodium ABG Glucose Oxyhemoglobin Carboxyhemoglobin Sodium Potassium Chloride Carbon Dioxide BUN Creatinine Glucose POC Glucose 124 H 158 H Calcium Phosphorus Magnesium AST Lactate Dehydrogenase Albumin Triglycerides Arterial Blood Glucose Arterial Blood Ionized Calcium Urine WBC (Auto) Salicylates Acetaminophen 12/01/21 12/01/21 12/01/21 04:00 06:03 11:13 WBC RBC Hgb Hct MCH MCHC RDW Plt Count Lymph % (Auto) [place] % (Auto) Lymph # (Auto) [place] # (Auto) Seg Neutrophils % Lymphocytes % (Manual) Seg Neutrophils # Seg Neutrophils # Man Lymphocytes # (Manual) D-Dimer ABG pH POC ABG pCO2 POC ABG pO2 ABG pO2 ABG HCO3 ABG O2 Saturation ABG Base Excess ABG Hemoglobin ABG Oxyhemoglobin ABG Sodium ABG Glucose Oxyhemoglobin Carboxyhemoglobin Sodium Potassium Chloride Carbon Dioxide BUN 36 H Creatinine 0.5 L Glucose 188 H POC Glucose 178 H 121 H Calcium Phosphorus Magnesium AST Lactate Dehydrogenase Albumin Triglycerides Arterial Blood Glucose Arterial Blood Ionized Calcium Urine WBC (Auto) Salicylates Acetaminophen 12/01/21 12/01/21 12/01/21 11:42 16:54 23:43 WBC RBC Hgb Hct MCH MCHC RDW Plt Count Lymph % (Auto) [place] % (Auto) Lymph # (Auto) [place] # (Auto) Seg Neutrophils % Lymphocytes % (Manual) Seg Neutrophils # Seg Neutrophils # Man Lymphocytes # (Manual) D-Dimer ABG pH POC ABG pCO2 POC ABG pO2 ABG pO2 71.0 L ABG HCO3 32.3 H ABG O2 Saturation 94.5 L ABG Base Excess 5.7 H ABG Hemoglobin ABG Oxyhemoglobin ABG Sodium ABG Glucose Oxyhemoglobin 92.6 L Carboxyhemoglobin Sodium Potassium Chloride Carbon Dioxide BUN Creatinine Glucose POC Glucose 129 H 115 H Calcium Phosphorus Magnesium AST Lactate Dehydrogenase Albumin Triglycerides Arterial Blood Glucose Arterial Blood Ionized Calcium Urine WBC (Auto) Salicylates Acetaminophen 12/02/21 12/02/21 12/02/21 04:55 04:55 05:19 WBC RBC Hgb Hct MCH 26 L MCHC RDW 18.1 H Plt Count 476 H Lymph % (Auto) [place] % (Auto) Lymph # (Auto) [place] # (Auto) Seg Neutrophils % Lymphocytes % (Manual) Seg Neutrophils # Seg Neutrophils # Man Lymphocytes # (Manual) D-Dimer ABG pH POC ABG pCO2 POC ABG pO2 ABG pO2 ABG HCO3 ABG O2 Saturation ABG Base Excess ABG Hemoglobin ABG Oxyhemoglobin ABG Sodium ABG Glucose Oxyhemoglobin Carboxyhemoglobin Sodium Potassium Chloride Carbon Dioxide 33 H BUN 30 H Creatinine 0.5 L Glucose 140 H POC Glucose 127 H Calcium Phosphorus Magnesium AST Lactate Dehydrogenase Albumin Triglycerides Arterial Blood Glucose Arterial Blood Ionized Calcium Urine WBC (Auto) Salicylates Acetaminophen 12/02/21 12/02/21 12/02/21 11:33 17:19 23:49 WBC RBC Hgb Hct MCH MCHC RDW Plt Count Lymph % (Auto) [place] % (Auto) Lymph # (Auto) [place] # (Auto) Seg Neutrophils % Lymphocytes % (Manual) Seg Neutrophils # Seg Neutrophils # Man Lymphocytes # (Manual) D-Dimer ABG pH POC ABG pCO2 POC ABG pO2 ABG pO2 ABG HCO3 ABG O2 Saturation ABG Base Excess ABG Hemoglobin ABG Oxyhemoglobin ABG Sodium ABG Glucose Oxyhemoglobin Carboxyhemoglobin Sodium Potassium Chloride Carbon Dioxide BUN Creatinine Glucose POC Glucose 118 H 139 H 140 H Calcium Phosphorus Magnesium AST Lactate Dehydrogenase Albumin Triglycerides Arterial Blood Glucose Arterial Blood Ionized Calcium Urine WBC (Auto) Salicylates Acetaminophen 12/03/21 12/03/21 12/03/21 04:52 04:52 05:03 WBC RBC 5.15 H Hgb Hct 44.2 H MCH 27 L MCHC RDW 17.8 H Plt Count 566 H Lymph % (Auto) [place] % (Auto) Lymph # (Auto) [place] # (Auto) Seg Neutrophils % Lymphocytes % (Manual) Seg Neutrophils # Seg Neutrophils # Man Lymphocytes # (Manual) D-Dimer ABG pH POC ABG pCO2 POC ABG pO2 ABG pO2 ABG HCO3 ABG O2 Saturation ABG Base Excess ABG Hemoglobin ABG Oxyhemoglobin ABG Sodium ABG Glucose Oxyhemoglobin Carboxyhemoglobin Sodium Potassium Chloride Carbon Dioxide BUN 22 H Creatinine 0.4 L Glucose 142 H POC Glucose 142 H Calcium Phosphorus Magnesium AST Lactate Dehydrogenase Albumin Triglycerides Arterial Blood Glucose Arterial Blood Ionized Calcium Urine WBC (Auto) Salicylates Acetaminophen 12/03/21 12/03/21 12/04/21 11:16 16:11 04:48 WBC 12.1 H RBC 5.58 H Hgb Hct 47.8 H MCH 26 L MCHC RDW 18.4 H Plt Count 576 H Lymph % (Auto) [place] % (Auto) Lymph # (Auto) [place] # (Auto) Seg Neutrophils % Lymphocytes % (Manual) Seg Neutrophils # Seg Neutrophils # Man Lymphocytes # (Manual) D-Dimer ABG pH POC ABG pCO2 POC ABG pO2 ABG pO2 ABG HCO3 ABG O2 Saturation ABG Base Excess ABG Hemoglobin ABG Oxyhemoglobin ABG Sodium ABG Glucose Oxyhemoglobin Carboxyhemoglobin Sodium Potassium Chloride Carbon Dioxide BUN Creatinine Glucose POC Glucose 147 H 140 H Calcium Phosphorus Magnesium AST Lactate Dehydrogenase Albumin Triglycerides Arterial Blood Glucose Arterial Blood Ionized Calcium Urine WBC (Auto) Salicylates Acetaminophen 12/04/21 12/04/21 12/04/21 04:48 05:42 11:54 WBC RBC Hgb Hct MCH MCHC RDW Plt Count Lymph % (Auto) [place] % (Auto) Lymph # (Auto) [place] # (Auto) Seg Neutrophils % Lymphocytes % (Manual) Seg Neutrophils # Seg Neutrophils # Man Lymphocytes # (Manual) D-Dimer ABG pH POC ABG pCO2 POC ABG pO2 ABG pO2 ABG HCO3 ABG O2 Saturation ABG Base Excess ABG Hemoglobin ABG Oxyhemoglobin ABG Sodium ABG Glucose Oxyhemoglobin Carboxyhemoglobin Sodium Potassium Chloride Carbon Dioxide BUN 19 H Creatinine 0.5 L Glucose 123 H POC Glucose 111 H 121 H Calcium Phosphorus Magnesium AST Lactate Dehydrogenase Albumin Triglycerides Arterial Blood Glucose Arterial Blood Ionized Calcium Urine WBC (Auto) Salicylates Acetaminophen 12/05/21 12/05/21 12/05/21 07:53 08:02 08:02 WBC 11.3 H RBC 5.94 H Hgb 15.3 H Hct 50.9 H MCH 26 L MCHC RDW 18.3 H Plt Count 611 H Lymph % (Auto) [place] % (Auto) Lymph # (Auto) [place] # (Auto) Seg Neutrophils % Lymphocytes % (Manual) Seg Neutrophils # Seg Neutrophils # Man Lymphocytes # (Manual) D-Dimer ABG pH POC ABG pCO2 POC ABG pO2 ABG pO2 ABG HCO3 ABG O2 Saturation ABG Base Excess ABG Hemoglobin ABG Oxyhemoglobin ABG Sodium ABG Glucose Oxyhemoglobin Carboxyhemoglobin Sodium Potassium Chloride Carbon Dioxide BUN 19 H Creatinine 0.5 L Glucose POC Glucose 112 H Calcium Phosphorus Magnesium AST Lactate Dehydrogenase Albumin Triglycerides Arterial Blood Glucose Arterial Blood Ionized Calcium Urine WBC (Auto) Salicylates Acetaminophen 12/05/21 12/05/21 12/06/21 11:10 15:59 07:27 WBC RBC Hgb Hct MCH MCHC RDW Plt Count Lymph % (Auto) [place] % (Auto) Lymph # (Auto) [place] # (Auto) Seg Neutrophils % Lymphocytes % (Manual) Seg Neutrophils # Seg Neutrophils # Man Lymphocytes # (Manual) D-Dimer ABG pH POC ABG pCO2 POC ABG pO2 ABG pO2 ABG HCO3 ABG O2 Saturation ABG Base Excess ABG Hemoglobin ABG Oxyhemoglobin ABG Sodium ABG Glucose Oxyhemoglobin Carboxyhemoglobin Sodium Potassium Chloride Carbon Dioxide BUN Creatinine Glucose POC Glucose 125 H 108 H 112 H Calcium Phosphorus Magnesium AST Lactate Dehydrogenase Albumin Triglycerides Arterial Blood Glucose Arterial Blood Ionized Calcium Urine WBC (Auto) Salicylates Acetaminophen 12/06/21 12/06/21 12/06/21 11:45 11:56 16:26 WBC RBC Hgb Hct MCH MCHC RDW Plt Count Lymph % (Auto) [place] % (Auto) Lymph # (Auto) [place] # (Auto) Seg Neutrophils % Lymphocytes % (Manual) Seg Neutrophils # Seg Neutrophils # Man Lymphocytes # (Manual) D-Dimer ABG pH POC ABG pCO2 POC ABG pO2 ABG pO2 75.9 L ABG HCO3 27.1 H ABG O2 Saturation ABG Base Excess ABG Hemoglobin ABG Oxyhemoglobin ABG Sodium ABG Glucose Oxyhemoglobin 93.7 L Carboxyhemoglobin Sodium Potassium Chloride Carbon Dioxide BUN Creatinine Glucose POC Glucose 125 H 139 H Calcium Phosphorus Magnesium AST Lactate Dehydrogenase Albumin Triglycerides Arterial Blood Glucose Arterial Blood Ionized Calcium Urine WBC (Auto) Salicylates Acetaminophen 12/06/21 12/06/21 12/07/21 21:48 22:12 08:49 WBC RBC Hgb Hct MCH MCHC RDW Plt Count Lymph % (Auto) [place] % (Auto) Lymph # (Auto) [place] # (Auto) Seg Neutrophils % Lymphocytes % (Manual) Seg Neutrophils # Seg Neutrophils # Man Lymphocytes # (Manual) D-Dimer ABG pH POC ABG pCO2 POC ABG pO2 ABG pO2 ABG HCO3 ABG O2 Saturation ABG Base Excess ABG Hemoglobin ABG Oxyhemoglobin ABG Sodium ABG Glucose Oxyhemoglobin Carboxyhemoglobin Sodium Potassium Chloride Carbon Dioxide BUN Creatinine Glucose POC Glucose 130 H 129 H 129 H Calcium Phosphorus Magnesium AST Lactate Dehydrogenase Albumin Triglycerides Arterial Blood Glucose Arterial Blood Ionized Calcium Urine WBC (Auto) Salicylates Acetaminophen 12/07/21 12/08/21 12/08/21 11:38 07:47 11:18 WBC RBC Hgb Hct MCH MCHC RDW Plt Count Lymph % (Auto) [place] % (Auto) Lymph # (Auto) [place] # (Auto) Seg Neutrophils % Lymphocytes % (Manual) Seg Neutrophils # Seg Neutrophils # Man Lymphocytes # (Manual) D-Dimer ABG pH POC ABG pCO2 POC ABG pO2 ABG pO2 ABG HCO3 ABG O2 Saturation ABG Base Excess ABG Hemoglobin ABG Oxyhemoglobin ABG Sodium ABG Glucose Oxyhemoglobin Carboxyhemoglobin Sodium Potassium Chloride Carbon Dioxide BUN Creatinine Glucose POC Glucose 146 H 109 H 131 H Calcium Phosphorus Magnesium AST Lactate Dehydrogenase Albumin Triglycerides Arterial Blood Glucose Arterial Blood Ionized Calcium Urine WBC (Auto) Salicylates Acetaminophen 12/08/21 12/09/21 12/09/21 20:12 06:23 06:23 WBC 13.1 H RBC 6.18 H Hgb 16.3 H Hct 53.7 H MCH 26 L MCHC RDW 18.9 H Plt Count Lymph % (Auto) [place] % (Auto) Lymph # (Auto) [place] # (Auto) Seg Neutrophils % Lymphocytes % (Manual) Seg Neutrophils # Seg Neutrophils # Man Lymphocytes # (Manual) D-Dimer ABG pH POC ABG pCO2 POC ABG pO2 ABG pO2 ABG HCO3 ABG O2 Saturation ABG Base Excess ABG Hemoglobin ABG Oxyhemoglobin ABG Sodium ABG Glucose Oxyhemoglobin Carboxyhemoglobin Sodium 149 H D Potassium Chloride 110.3 H Carbon Dioxide BUN 23 H Creatinine Glucose 109 H POC Glucose 106 H Calcium Phosphorus Magnesium AST 47 H Lactate Dehydrogenase Albumin 3.8 L Triglycerides Arterial Blood Glucose Arterial Blood Ionized Calcium Urine WBC (Auto) Salicylates Acetaminophen 12/09/21 08:13 WBC RBC Hgb Hct MCH MCHC RDW Plt Count Lymph % (Auto) [place] % (Auto) Lymph # (Auto) [place] # (Auto) Seg Neutrophils % Lymphocytes % (Manual) Seg Neutrophils # Seg Neutrophils # Man Lymphocytes # (Manual) D-Dimer ABG pH POC ABG pCO2 POC ABG pO2 ABG pO2 ABG HCO3 ABG O2 Saturation ABG Base Excess ABG Hemoglobin ABG Oxyhemoglobin ABG Sodium ABG Glucose Oxyhemoglobin Carboxyhemoglobin Sodium Potassium Chloride Carbon Dioxide BUN Creatinine Glucose POC Glucose 110 H Calcium Phosphorus Magnesium AST Lactate Dehydrogenase Albumin Triglycerides Arterial Blood Glucose Arterial Blood Ionized Calcium Urine WBC (Auto) Salicylates Acetaminophen Allied health notes reviewed: nursing
[2021-12-09] MEDS: ACETAMINOPHEN 650 MG RECT SUPP PR PRN (13:11)
[2021-12-09] MEDS ORDERED: HALOPERIDOL LACTATE 5 MG/1 ML INJ IM SCH (15:30)
[2021-12-09 15:48] LABS: Eosinophils % (Auto) 1.3 % (0.0-4.3); Lymphocytes % (Auto) 15.2 % (13.4-35.0); Monocytes % (Auto) 7.1 % (0.0-7.3); Platelet Count 726 K/mm3 (140-440)
[2021-12-09 15:49] LABS: Basophils % (Auto) 0.9 % (0.0-1.8); Eosinophils # (Auto) 0.2 K/mm3 (0.0-0.4); Monocytes # (Auto) 0.9 K/mm3 (0.0-0.8)
[2021-12-09 15:50] LABS: Basophils # (Auto) 0.1 K/mm3 (0.0-0.1)
[2021-12-09] MEDS ORDERED: LORazepam 2 MG/ML VIAL IV STA (16:21)
[2021-12-09] MEDS: POTASSIUM CHLORIDE 10 MEQ in DEXTROSE 5% IN WATER 1,000 ML IV SCH (17:18)
--- NOTE | 2021-12-09 20:39 | Progress Note ---
Assessment and Plan Assessment and plan: This is a 81-year-old AA female with past medical history of CAD, CHF, pulmonary hypertension, COPD, and tobacco abuse admitted for acute hypoxemic respiratory failure 2/2 of bilateral pneumonia vs COPD exacerbation/pulmonary edema required intubation and ventilatory support. Acute Hypoxemic Respiratory Failure - Patient intubated in the ED on 11/18, extubated on 11/27 - Patient was reintubated on 11/27 due to stridor - 12/01 extubated - Stable on 3L NC this am, SPO2 above 92% - Wean O2 supplementation as tolerated Sepsis. Present on admission etiology secondary to pneumonia and UTI - Imagings shown bilateral opacities representing pulmonary edema vs pneumonia - WBCs as high as 15.6, now wnr -Initially had low-grade fever and then resolved - CRP and procal is normal - COVID swab neg - Urinalysis was significant for UTI. Urine cultures less than 10,000 CFU - B. cultures negative - Sputum culture +parisa Albicans - Patient completed IV antibiotic course COPD Exacerbation Currently no wheezing Bilateral Pneumonia - Chest x-ray shows bilateral pulmonary opacities possibly representing erin ma/atelectasis or pneumonia. - CT of the chest shows evidence of pulmonary hypertension with dense c onsolidation along the left lower lobe that is concerning for pneumonia. Mild interstitial pulmonary edema. Acute diastolic heart failure - 12/2020 Echo with a EF of 60- 65% - IV Lasix D/naren - Strict intake and output -Currently appears euvolemic clinically Hypertension - Patient SBP as in the 240s in the ED - S/p cardene gtt - PRN hydralazine for SBP greater than 160 H/o CAD H/o GERD - Passed bedside swallow, will start soft diet - Speech on consult - Continue PPI- Pepcid Urinary Retention - Briggs reinserted twice due to urinary retention - LAsix D/naren Hyperkalemia-improved - Trend BMP - Avoid nephrotoxic medications; Renally dose medications Hypernatremia -Likely, poor p.o. intake/dehydration -We will start D5 half-normal saline and monitor Encephalopathy with confusion and agitation -Remains very confused and agitated needing wrist restraints Regarding the family/son, she was functioning normally mentally and physically prior to this admission. -Likely has underlying dementia -CT head negative. - Seroquel and Buspar D/cd previously - PRN Haldol for agitation - Close monitoring of QTc - Avoid benzodiazepine to reduce the possibility of delirium -Avoid narcotics and benzos - Maintenance of sleep-wake cycle Elevated D-Dimer - BLE DVT negative - Lovenox added for DVT proph. - SCDs to bilateral lower extremities while in bed Disposition: Will need subacute rehab placement when stabilized, discussed with CM Hospital Course to Date: 11/18: Patient was seen and examined in the ED. Patient is intubated and sedated on propofol and versed gtt, RASS -3 to -4. Patient is in hypertensive emergency this am, SBP in the 240s, cardene gtt was initiated, maintain SBP less than 160. Leukocytosis noted, UA significant for UTI. Lactic, procal, and CRP are normal. Patient remains afebrile, continue empiric IV abx for now. Tracheal aspirate ordered, blood culture is pending. Continue to f/u on culture data. 11/19: Patient remains intubated and sedated. Patient did not tolerate sedation vacation this am, became tachycardic, hypertensive, with elevated RR and SPO2 in the low 80s. Sedation back on, continue to wean sedation as tolerated for RASS goal of 0 to -2. Pateimt is off cardene gtt, PRN hydralazine for SPO2 above 160. Low K repleted, repeat labs in the am. 11/20: Remains on the vent and sedated, RASS -3. Plan to wean down on sedation, might need to add Seroquel if patient is not tolerating sedation. Hypernatremia and increased BUN/Cr. this am, patient is on lasix BID. Will discuss with [facility] to possibly hold or decreased IV lasix for now, FWF added for high Na. Urinary retention post briggs removal, bladder scan and straight cath per protocol. 11/21: Patient remains on the vent, unable to wean sedation at this time, Seroquel added. Titrate sedation as tolerated for RASS of 0 to -2. Briggs was reinserted overnight for urinary retention, kidney function is stable. 11/22: [facility] reduced FiO2. We will start weaning tomorrow. No acute events reported overnight. 11/23: Patient spiked a fever overnight and was cultured this morning. Attempted CPAP trial again today. An ABG obtained post trial which has been given to [facility]. Slight hypernatremia noted. 11/24: I updated patient's son today, Kwame Salamanca at [phone]. Lasix stopped today. Patient placed on CPAP trial. She lasted on CPAP all day yesterday and was rested overnight on assist control. Given Kayexalate today due to hyperkalemia. 11/25: Patient was on SBT today and was not arousable for a while and a CT head was obtained which showed no acute intracranial abnormality. Patient later became severely agitated and was switched back to assist control and placed back on sedation. Family updated today. Restarted home Coreg due to hypotension. 11/26: SBT today, Haldol as needed. Briggs was removed yesterday bladder scan x2 with urine output. Slight hypernatremia persists. Blood pressure better controlled. 11/27/2021: Patient was extubated by [facility] this morning. Patient was severely agitated and given 2 mg Ativan, SBP 200s and given labatalol x1 10mg, NJ tube placed and given PO BP medications. She had stridor and was given racemic epi. We wanted to place BiPAP but after consolation with Dr. Gallegos it was decided to intubate the patient. She was intubated by Deidra, RT and given etomidate, versed and fentanyl. CXR in process. On fentanyl and precedex gtt. 11/28: added buspar to help with agitation, restarted serqoul at lower dose. weaned fi02 today. 11/29: Remains on the vent and on sedation, fent and precedx gtts. D/w CCM plan for possible SAT and SBT in the am, hold TF at 6am on 11/30 for possible SAT/SBT. 11/30: Patient mentation slightly better this am, still on predex and fentanyl gtt. However, easily arousable, following simple commands. Tolerated SBT trial for about 2hrs today then patient was placed back on a rate due to increased work of breathing and increased agitation. D/w [facility] seroquel increased to BID, plan to try SAT/SBT again the am. 12/01: CONY overnight. Patient mentation continue to improve. Tolerating SBT this am, possible extubation today if ABG is wnr. 12/02: Extubated yesterday, on 4L NC this SPO2 at 100%. Patient is awake following simple commands this am, however, she is confused. Spoke to patient's son, Kwame Salamanca. He was updated on patient's status. He reported that patient was very self sufficient prior to admit, with no neurological nor any psych issues that he knows of. All questions and concerns were voiced at this time. Will continue to monitor for now. D/w [facility] patient is stable for transfer to IMCU 12/03: Slight improvement in mentation this am, however still drowsy and disorientated. Will hold seroquel and Buspar for now. Patient is on ventimask this am, plan to wean O2 supplementation for SPO2 goal above 90%. Transfer order placed for IMCU 12/04: Mentation much better this am, remains on 4L NC. Hypertensive overnight, however per RN patient was NPO since NGT was accidently pulled out overnight. Patient passed bedside swallow this am. Will start patient on a soft diet. D/w [facility] patient is stable for transfer to Telemetry. 12/05: Patient still requiring 4 L O2 via nasal cannula. Continue BiPAP at bedtime. Patient reports that she is on home O2 of 3 L. Continue duo nebs, LABA and inhaled corticosteroids. Brovana and Pulmicort. Continue gabapentin for Neurontin. PT evaluation 12/06: Patient reportedly last evening approximately 7 PM had altered mentation with inappropriate speech. Patient now requiring restraints. Continue Haldol as needed. Check stat ABG. Repeat chest x-ray. Check CT scan of the head. Patient currently requiring 3 L nasal cannula. Patient currently requiring 3 L O2 via nasal cannula. 12/07: Patient remains very confused, agitated needing bilateral distal restraints. Needs placement, discussed with the case management. 12/08: Mental status unchanged, remains confused needing wrist restraints. According to son, she was functioning physically and mentally normal before this admission. Requested subacute rehab. Discussed with case management. Wean O2 as tolerated. 12/09 12: Remains very confused and restless needing wrist restraints. Will obtain MRI. Start D5 half normal saline for Hypernatremia/dehydration. History Interval history: Mental status unchanged. Patient remains very confused and restless needing bilateral wrist restraints. Mostly nonverbal. No acute respiratory distress, on 3 L, family reported that she was functioning well prior to this admission. Hospitalist Physical - Constitutional Vitals: Temp Pulse Resp BP Pulse Ox 98.1 F 87 20 118/70 91 01/13/22 15:26 12/09/21 15:26 12/09/21 15:26 12/09/21 15:26 12/09/21 15:26 General appearance: Present: no acute distress, obese, other (Very confused with the wrist restraints.) - EENT Eyes: Present: PERRL, EOM intact ENT: other (Dry oral mucosa) - Neck Neck: Present: supple - Respiratory Respiratory: bilateral: diminished, negative: rhonchi, wheezing - Cardiovascular Rhythm: regular - Extremities Extremities: No edema - Abdominal General gastrointestinal: soft, non-tender, non-distended, normal bowel sounds - Integumentary Integumentary: Absent: rash - Neurologic Neurologic: other (Confused and restless. Moves all extremities.) HEART Score - HEART Score Troponin: Troponin T < 0.010 ng/mL (0.00-0.029) 11/18/21 03:25 Results - Labs CBC & Chem 7: 12/09/21 06:23 12/09/21 06:23 Labs: Laboratory Last Values WBC 13.1 K/mm3 (4.5-11.0) H 12/09/21 06:23 RBC 6.18 M/mm3 (3.65-5.03) H 12/09/21 06:23 Hgb 16.3 gm/dl (10.1-14.3) H 12/09/21 06:23 Hct 53.7 % (30.3-42.9) H 12/09/21 06:23 MCV 87 fl (79-97) 12/09/21 06:23 MCH 26 pg (28-32) L 12/09/21 06:23 MCHC 30 % (30-34) 12/09/21 06:23 RDW 18.9 % (13.2-15.2) H 12/09/21 06:23 Plt Count 726 K/mm3 (140-440) H 12/09/21 06:23 Lymph % (Auto) 15.2 % (13.4-35.0) 12/09/21 06:23 Hughes % (Auto) 7.1 % (0.0-7.3) 12/09/21 06:23 Eos % (Auto) 1.3 % (0.0-4.3) 12/09/21 06:23 Baso % (Auto) 0.9 % (0.0-1.8) 12/09/21 06:23 Lymph # (Auto) 2.0 K/mm3 (1.2-5.4) 12/09/21 06:23 Hughes # (Auto) 0.9 K/mm3 (0.0-0.8) H 12/09/21 06:23 Eos # (Auto) 0.2 K/mm3 (0.0-0.4) 12/09/21 06:23 Baso # (Auto) 0.1 K/mm3 (0.0-0.1) 12/09/21 06:23 Add Manual Diff Complete 12/09/21 06:23 Total Counted 100 11/18/21 00:19 Seg Neutrophils % 75.5 % (40.0-70.0) H 12/09/21 06:23 Lymphocytes % (Manual) 4.0 % (13.4-35.0) L 11/18/21 00:19 Monocytes % (Manual) 2.0 % (0.0-7.3) 11/18/21 00:19 Nucleated RBC % Not Reportable 11/18/21 00:19 Seg Neutrophils # 9.9 K/mm3 (1.8-7.7) H 12/09/21 06:23 Seg Neutrophils # Man 14.7 K/mm3 (1.8-7.7) H 11/18/21 00:19 Band Neutrophils # 0.0 K/mm3 11/18/21 00:19 Lymphocytes # (Manual) 0.6 K/mm3 (1.2-5.4) L 11/18/21 00:19 Abs React Lymphs (Man) 0.0 K/mm3 11/18/21 00:19 Monocytes # (Manual) 0.3 K/mm3 (0.0-0.8) 11/18/21 00:19 Eosinophils # (Manual) 0.0 K/mm3 (0.0-0.4) 11/18/21 00:19 Basophils # (Manual) 0.0 K/mm3 (0.0-0.1) 11/18/21 00:19 Metamyelocytes # 0.0 K/mm3 11/18/21 00:19 Myelocytes # 0.0 K/mm3 11/18/21 00:19 Promyelocytes # 0.0 K/mm3 11/18/21 00:19 Blast Cells # 0.0 K/mm3 11/18/21 00:19 WBC Morphology Not Reportable 11/18/21 00:19 Hypersegmented Neuts Not Reportable 11/18/21 00:19 Hyposegmented Neuts Not Reportable 11/18/21 00:19 Hypogranular Neuts Not Reportable 11/18/21 00:19 Smudge Cells Not Reportable 11/18/21 00:19 Toxic Granulation Not Reportable 11/18/21 00:19 Toxic Vacuolation Not Reportable 11/18/21 00:19 Dohle Bodies Not Reportable 11/18/21 00:19 Pelger-Huet Anomaly Not Reportable 11/18/21 00:19 Luis Rods Not Reportable 11/18/21 00:19 Platelet Estimate Consistent w auto 11/18/21 00:19 Clumped Platelets Not Reportable 11/18/21 00:19 Plt Clumps, EDTA Not Reportable 11/18/21 00:19 Large Platelets Not Reportable 11/18/21 00:19 Giant Platelets Not Reportable 11/18/21 00:19 Platelet Satelliting Not Reportable 11/18/21 00:19 Plt Morphology Comment Not Reportable 11/18/21 00:19 RBC Morphology Not Reportable 11/18/21 00:19 Dimorphic RBCs Not Reportable 11/18/21 00:19 Polychromasia Not Reportable 11/18/21 00:19 Hypochromasia Not Reportable 11/18/21 00:19 Poikilocytosis Not Reportable 11/18/21 00:19 Anisocytosis 1+ 11/18/21 00:19 Microcytosis Not Reportable 11/18/21 00:19 Macrocytosis Few 11/18/21 00:19 Spherocytes Not Reportable 11/18/21 00:19 Pappenheimer Bodies Not Reportable 11/18/21 00:19 Sickle Cells Not Reportable 11/18/21 00:19 Target Cells Not Reportable 11/18/21 00:19 Tear Drop Cells Not Reportable 11/18/21 00:19 Ovalocytes Not Reportable 11/18/21 00:19 Helmet Cells Not Reportable 11/18/21 00:19 Connelly-[place] Bodies Not Reportable 11/18/21 00:19 Glynn Rings Not Reportable 11/18/21 00:19 Udell Cells Not Reportable 11/18/21 00:19 Bite Cells Not Reportable 11/18/21 00:19 Crenated Cell Not Reportable 11/18/21 00:19 Elliptocytes Not Reportable 11/18/21 00:19 Acanthocytes (Spur) Not Reportable 11/18/21 00:19 Rouleaux Not Reportable 11/18/21 00:19 Hemoglobin C Crystals Not Reportable 11/18/21 00:19 Schistocytes Not Reportable 11/18/21 00:19 Malaria parasites Not Reportable 11/18/21 00:19 Shahriar Bodies Not Reportable 11/18/21 00:19 Hem Pathologist Commnt No 11/18/21 00:19 PT 12.9 Sec. (12.2-14.9) 11/18/21 00:19 INR 0.88 (0.87-1.13) 11/18/21 00:19 APTT 29.2 Sec. (24.2-36.6) 11/18/21 00:19 D-Dimer 464.80 ng/mlDDU (0-234) H 11/18/21 05:15 ABG pH 7.446 pH Units (7.350-7.450) 12/06/21 11:45 POC ABG pCO2 60.0 mmHg (32.0-48.0) H 11/30/21 12:04 ABG pCO2 40.3 mm Hg 12/06/21 11:45 POC ABG pO2 68.3 mmHg (83-108) L 11/30/21 12:04 ABG pO2 75.9 mm Hg (80.0-90.0) L 12/06/21 11:45 POC ABG HCO3 32.9 11/30/21 12:04 ABG HCO3 27.1 mmol/L (20.0-26.0) H 12/06/21 11:45 ABG O2 Saturation 95.9 % (95.0-99.0) 12/06/21 11:45 ABG O2 Content 20.5 (0.0-44) 12/06/21 11:45 POC ABG Base Excess 5.5 11/30/21 12:04 ABG Base Excess 2.9 mmol/L (-2.0-3.0) 12/06/21 11:45 ABG Hemoglobin 15.6 gm/dl (12.0-16.0) 12/06/21 11:45 ABG Oxyhemoglobin 90.9 (94-98) L 11/30/21 12:04 ABG Carboxyhemoglobin 1.7 % (0.0-5.0) 12/06/21 11:45 ABG Methemoglobin 0.5 % (0.0-1.5) 12/06/21 11:45 ABG Sodium 145.1 mmol/L (136.0-145.0) H 11/30/21 12:04 ABG Potassium 4.0 mmol/L (3.40-4.50) 11/30/21 12:04 ABG Chloride 102.0 mmol/L (98-107) 11/30/21 12:04 ABG Glucose 122 mg/dL (65-95) H 11/30/21 12:04 Oxyhemoglobin 93.7 % (95.0-99.0) L 12/06/21 11:45 Carboxyhemoglobin 1.2 (0.5-1.5) 11/30/21 12:04 FiO2 32 % 12/06/21 11:45 FiO2 % 40 11/30/21 12:04 Sodium 149 mmol/L (137-145) H D 12/09/21 06:23 Potassium 3.8 mmol/L (3.6-5.0) 12/09/21 06:23 Chloride 110.3 mmol/L (98-107) H 12/09/21 06:23 Carbon Dioxide 24 mmol/L (22-30) 12/09/21 06:23 Anion Gap 19 mmol/L 12/09/21 06:23 BUN 23 mg/dL (7-17) H 12/09/21 06:23 Creatinine 0.6 mg/dL (0.6-1.2) 12/09/21 06:23 Estimated GFR > 60 ml/min 12/09/21 06:23 BUN/Creatinine Ratio 38 % 12/09/21 06:23 Glucose 109 mg/dL (65-100) H 12/09/21 06:23 POC Glucose 117 mg/dL (70-105) H 12/09/21 17:35 Hemoglobin A1c 5.9 % (4-6) 11/19/21 07:59 Lactic Acid 1.40 mmol/L (0.7-2.0) 11/18/21 00:19 Calcium 9.6 mg/dL (8.4-10.2) 12/09/21 06:23 Phosphorus 3.80 mg/dL (2.5-4.5) 12/04/21 04:48 Magnesium 2.00 mg/dL (1.7-2.3) 12/04/21 04:48 Total Bilirubin 0.60 mg/dL (0.1-1.2) 12/09/21 06:23 Direct Bilirubin < 0.2 mg/dL (0-0.2) 11/18/21 00:19 Indirect Bilirubin 0.2 mg/dL 11/18/21 00:19 AST 47 units/L (5-40) H 12/09/21 06:23 ALT 40 units/L (7-56) 12/09/21 06:23 Alkaline Phosphatase 89 units/L (35-129) 12/09/21 06:23 Ammonia 54.0 umol/L (25-60) 11/18/21 00:19 Lactate Dehydrogenase 275 units/L (91-180) H 11/18/21 05:15 Troponin T < 0.010 ng/mL (0.00-0.029) 11/18/21 03:25 C-Reactive Protein 0.70 mg/dL (0.00-1.30) 11/18/21 15:47 NT-Pro-B Natriuret Pep 867.7 pg/mL (0-900) 11/18/21 00:19 Total Protein 7.2 g/dL (6.3-8.2) 12/09/21 06:23 Albumin 3.8 g/dL (3.9-5) L 12/09/21 06:23 Albumin/Globulin Ratio 1.1 % 12/09/21 06:23 Triglycerides 185 mg/dL (2-149) H 11/22/21 04:39 Lipase 13 units/L (13-60) 11/18/21 00:19 Procalcitonin 0.12 ng/mL (<0.15) 11/18/21 05:15 Arterial Blood Glucose 122 mg/dL (65-95) H 11/30/21 12:04 Arterial Blood Ionized Calcium 5.2 mg/dL (4.6-5.3) 11/29/21 03:51 Urine Color Yellow (Yellow) 11/23/21 12:24 Urine Turbidity Clear (Clear) 11/23/21 12:24 Urine pH 7.0 (5.0-7.0) 11/23/21 12:24 Ur Specific [place] 1.018 (1.003-1.030) 11/23/21 12:24 Urine Protein <15 mg/dl mg/dL (Negative) 11/23/21 12:24 Urine Glucose (UA) Neg mg/dL (Negative) 11/23/21 12:24 Urine Ketones Neg mg/dL (Negative) 11/23/21 12:24 Urine Blood Neg (Negative) 11/23/21 12:24 Urine Nitrite Neg (Negative) 11/23/21 12:24 Urine Bilirubin Neg (Negative) 11/23/21 12:24 Urine Urobilinogen 4.0 mg/dL (<2.0) 11/23/21 12:24 Ur Leukocyte Esterase Neg (Negative) 11/23/21 12:24 Urine WBC (Auto) 1.0 /HPF (0.0-6.0) 11/23/21 12:24 Urine RBC (Auto) 1.0 /HPF (0.0-6.0) 11/23/21 12:24 U Epithel Cells (Auto) 1.0 /HPF (0-13.0) 11/18/21 01:03 Hyaline Casts 3 /LPF 11/18/21 01:03 Urine Mucus Few /HPF 11/18/21 01:03 Salicylates < 0.3 mg/dL (2.8-20.0) L 11/18/21 00:19 Urine Opiates Screen Negative 11/18/21 01:03 Urine Methadone Screen Negative 11/18/21 01:03 Acetaminophen 5.0 ug/mL (10.0-30.0) L 11/18/21 00:19 Ur Barbiturates Screen Negative 11/18/21 01:03 Ur Phencyclidine Scrn Negative 11/18/21 01:03 Ur Amphetamines Screen Negative 11/18/21 01:03 U Benzodiazepines Scrn Negative 11/18/21 01:03 Urine Cocaine Screen Negative 11/18/21 01:03 U Marijuana (THC) Screen Negative 11/18/21 01:03 Drugs of Abuse Note Disclamer 11/18/21 01:03 Plasma/Serum Alcohol < 0.01 % (0-0.07) 11/18/21 00:19 Coronavirus (PCR) Negative (Negative) 11/18/21 Unknown Briggs/IV: Voiding Method Indwelling Catheter Active Medications - Current Medications Current Medications: Generic Name Dose Route Start Last Admin Trade Name Freq PRN Reason Stop Dose Admin Acetaminophen 650 mg 11/18/21 03:10 12/09/21 13:11 Acetaminophen 650 Mg Rect Supp UT 650 mg Q6H PRN Administration Pain MILD(1-3)/Fever >100.5/MONTIEL Albuterol 2.5 mg 12/03/21 12:16 12/07/21 15:45 Albuterol 2.5 Mg/3 Ml Nebu IH 2.5 mg Q4HRT PRN Administration Shortness Of Breath Amlodipine Besylate 10 mg 11/27/21 10:00 12/09/21 10:07 Amlodipine 10 Mg Tab PO 10 mg DAILY PAULINA Administration Arformoterol Tartrate 15 mcg 11/18/21 20:00 12/09/21 09:02 Arformoterol 15 Mcg/2 Ml Nebu IH 15 mcg Q12HRT PAULINA Administration Aspirin 81 mg 11/27/21 10:00 12/09/21 10:06 Aspirin Ec 81 Mg Tab PO 81 mg QDAY PAULINA Administration Budesonide 0.5 mg 11/18/21 20:00 12/09/21 09:02 Budesonide 0.5 Mg/2 Ml Nebu IH 0.5 mg Q12HRT PAULINA Administration Carvedilol 12.5 mg 11/25/21 13:00 12/09/21 10:06 Carvedilol 12.5 Mg Tab FEEDTUBE 12.5 mg BID PAULINA Administration Dextrose 50 ml 11/18/21 10:40 Dextrose 50% In Water (25gm) 50 Ml Syringe IV Q30MIN PRN Hypoglycemia Protocol Enoxaparin Sodium 40 mg 11/19/21 22:00 12/08/21 21:47 Enoxaparin 40 Mg/0.4 Ml Inj SUB-Q 40 mg QDAY@2200 PAULINA Administration Protocol Famotidine 20 mg 11/20/21 10:00 12/09/21 10:06 Famotidine 20 Mg Tab FEEDTUBE 20 mg BID PAULINA Administration Hydralazine HCl 10 mg 11/18/21 10:44 12/06/21 07:08 Hydralazine 20 Mg/1 Ml Inj IV 10 mg Q4HR PRN Administration Hypertension Hydrophilic Ointment 1 applic 11/18/21 15:26 Lip Therapy Vaseline TP Q2HR PRN Dry Lips Potassium Chloride 10 meq/ 1,005 mls @ 100 mls/hr 12/09/21 11:45 12/09/21 17:18 Dextrose IV 100 mls/hr DIRECT PAULINA Administration Insulin Human Lispro 0 unit 12/04/21 16:30 12/09/21 17:54 Insulin Lispro 100 Unit/Ml SUB-Q Not Given ACHS PAULINA Protocol Isosorbide Mononitrate 60 mg 12/04/21 15:00 12/09/21 10:07 Isosorbide Mononitrate Er 60 Mg Tab PO 60 mg QDAY PAULINA Administration Losartan Potassium 100 mg 12/05/21 10:00 12/09/21 10:06 Losartan 50 Mg Tab PO 100 mg QDAY PAULINA Administration Magnesium Hydroxide 30 ml 11/18/21 03:10 Magnesium Hydroxide (Mom) Oral Liqd Udc PO Q4H PRN Constipation Senna/Docusate Sodium 1 tab 11/18/21 22:00 12/09/21 10:06 Sennosides/Docusate Sodium 8.6/50 Mg Tab FEEDTUBE 1 tab BID PAULINA Administration Nutrition/Malnutrition Assess - Dietary Evaluation Nutrition/Malnutrition Findings: Nutrition Notes Start: 11/18/21 10:45 Freq: Status: Active Protocol: Document 12/08/21 16:46 LEONARDO (Rec: 12/08/21 16:56 LEONARDO [id number]) Nutrition Notes Initial or Follow up Brief Note Current Diet Pureed Diet (since D 12/06), D Suppl (since D 12/08).. Height 5 ft 8 in Weight 81.6 kg [place] Body Weight (kg) 63.63 BMI 27.3 Weight change and time frame No body weight change reported . Weight Status Overweight Subjective/Other Information RD consult for routine F/U on PERSONAL PROTECTION SPECIALIST evaluation and TF tolerance or Dietary advancement. Diet advanced to PO. %PO intake of meals has been Neglible (<25%), according to ADL notes. Dietary Supplements recommended and ordered. Percent of energy/protein needs met: Prescribed Pureed Diet provides for energy/protein needs (1,804 Kcal/77 g) during LOS; additionally, Dietary Supplements will compensate for possible Poor PO intake of meals with 1,050 Kcal and 60 g of protein. Current % PO Negligible Minimum of two criteria No #1 Nutrition Diagnosis Inadequate oral intake Comments: Diet advanced to Po, but intake remains neglible. Diagnosis Progress(for reassessment Improved documentation) Nutrition Intervention Change Diet Order: Continue Pureed Diet. Add Supplement/Snack (indicate name/kcal 8 fl oz Ensure Enlive; TID. /protein ) Provides kCal: 1,050 Provides Protein (gm) 60 Goal #1 Compensate, through dietary supplementation, for possible poor or insufficient PO intake of meals during LOS. Follow-Up By: 12/15/21 Additional Comments Continue monitoring food tolerance, %PO intake of meals and ONS, and BM.
[2021-12-09] MEDS: ENOXAPARIN 40 MG/0.4 ML INJ SUB-Q SCH (22:09)
[2021-12-10] MEDS: POTASSIUM CHLORIDE 10 MEQ in DEXTROSE 5% IN WATER 1,000 ML IV SCH ×2 (06:22→18:48)
[2021-12-10] MEDS: INSULIN LISPRO 100 UNIT/ML SUB-Q SCH ×5 (08:45→22:24)
[2021-12-10] MEDS: ASPIRIN EC 81 MG TAB PO SCH (09:03)
[2021-12-10] MEDS: carvediloL 12.5 MG TAB FEEDTUBE SCH ×2 (09:04→22:21)
[2021-12-10] MEDS: SENNOSIDES/DOCUSATE SODIUM 8.6/50 MG TAB FEEDTUBE SCH ×2 (09:04→22:21)
[2021-12-10] MEDS: FAMOTIDINE 20 MG TAB FEEDTUBE SCH ×2 (09:04→22:23)
[2021-12-10] MEDS: amLODIPine 10 MG TAB PO SCH (09:05)
[2021-12-10] MEDS: LOSARTAN 50 MG TAB PO SCH (09:05)
[2021-12-10] MEDS ORDERED: HALOPERIDOL LACTATE 5 MG/1 ML INJ IM ONE (09:10)
[2021-12-10] MEDS ORDERED: diphenhydrAMINE 50 MG/ML VIAL IV ONE (09:11)
[2021-12-10] MEDS ORDERED: MORPHINE 4 MG/1 ML INJ IV ONE (09:13)
[2021-12-10] MEDS: BUDESONIDE 0.5 MG/2 ML NEBU IH SCH ×2 (09:44→20:02)
[2021-12-10] MEDS: ARFORMOTEROL 15 MCG/2 ML NEBU IH SCH ×2 (09:44→20:02)
--- NOTE | 2021-12-10 12:02 | Magnetic Resonance Report ---
MR brain wo/w con INDICATION / CLINICAL INFORMATION: Acute encephalopathy Patient was medicated prior to MRI and she continued to move during the study. B est possible exam, patient motion. This is 2nd attempt.. TECHNIQUE: Multiplanar, multisequence MR images of the brain were obtained. COMPARISON: 12/06/2021 CTA head FINDINGS: INTRACRANIAL: No restricted diffusion. No hemorrhage. Ventricular caliber is normal. No extra-axial c ollection. No mass. No herniation. Major intracranial vascular flow voids are preserved. Generalized parenchymal atrophy. Post contrast imaging is degraded by motion. However, there is no abnormal enha ncement identified. ORBITS: No significant abnormality of visualized orbits. SINUSES / MASTOIDS: Minimal mastoid effusions. Paranasal sinuses are essentially clear. ADDITIONAL FINDINGS: None. IMPRESSION: 1. No acute findings. Signer Name: Luis Enrique Dias MD Signed: 12/10/2021 11:57 AM Workstation Name: [id number]
--- NOTE | 2021-12-10 13:33 | Progress Note ---
Assessment and Plan Acute exacerbation of chronic obstructive lung disease Acute hypoxemic respiratory failure Acute congestive heart failure exacerbation (? Flash Pulmonary edema) Community-acquired pneumonia Leukocytosis History of coronary artery disease Gastroesophageal reflux disease Arthritis Hyperlipidemia Obesity Elevated D-dimers Acute toxic metabolic encephalopathy Urinary tract infection Likely pulmonary hypertension Hypertensive emergency - continue BIPAP scheduled qhs - continue care as below otherwise; - wean supplemental oxygen for target O2 sat's > 90% acutely - continue aspiration precautions - bronchodilators (LIZZY & LABA) with pulmonary hygiene per RT - continue Pulmicort re: COPD - avoid nephrotoxins, renally dose all medications - continue accuchecks with glycemic control per SSI for target blood glucose of < 180 mg/dL; avoid hypoglycemia - continue to avoid benzodiazepine's, reduce the possibility of delirium - completed AB's course - prn analgesia per pain score - Maintenance of sleep-wake cycle, avoid delirium - continue enteral nutritional support at goal rate as tolerated - G.I. & VTE prophylaxis - PT/OT/ROM exercises - continue mobility protocols for pressure ulcer prophylaxis - Monitor hemodynamics closely - continue other care per attending / other consultants - discharge planning ongoing concurrently COVID SPECIFIC INTERVENTIONS: - COVID-19 test negative .... Re-evaluate in am & prn Subjective Date of service: 12/10/21 Principal diagnosis: AE-COPD; AHRF; CHF (? new onset); CAP; CAD; Obesity; HTNsive Emergency Interval history: Patient is seen today for: AE-COPD; Acute hypoxemic respiratory failure; CHF (? new onset); CAP; CAD; Obesity; HTNsive Emergency Seen and examined at bedside; 24hour events reviewed; nursing and respiratory care staff consulted; no adverse overnight events reported to me; resting peacefully in bed; just received sedative; somnolent; no N/V/F/C Objective Vital Signs - 12hr 12/10/21 12/10/21 12/10/21 03:55 07:48 07:57 Temperature 98.4 F 97.9 F 97.9 F Pulse Rate 76 71 Respiratory 16 18 18 Rate Blood Pressure 128/77 174/149 160/78 O2 Sat by Pulse 92 93 Oximetry 12/10/21 12/10/21 12/10/21 09:04 09:05 09:45 Temperature Pulse Rate 71 71 Respiratory Rate Blood Pressure 160/78 160/78 O2 Sat by Pulse 95 Oximetry Constitutional: no acute distress, other (elderly obese female with mildly increased respiratory effort at rest ) Eyes: non-icteric ENT: oropharynx moist Neck: supple, no lymphadenopathy, no JVD, other (large circumference) Effort: mildly labored Ascultation: Bilateral: diminished breath sounds, rhonchi (scant bases) Percussion: Bilateral: not dull Cardiovascular: regular rate and rhythm Gastrointestinal: normoactive bowel sounds, soft, non-tender, non-distended (protuberant) Integumentary: normal Extremities: no cyanosis, no edema, pulses normal, no ischemia or petechiae Neurologic: non-focal exam (grossly), pupils equal and round, CN II-XII normal Psychiatric: mood appropriate, affect normal, other (mild delirium) CBC and BMP: 12/11/21 09:25 12/11/21 09:25 ABG, PT/INR, D-dimer: ABG ABG pH 7.446 pH Units (7.350-7.450) 12/06/21 11:45 POC ABG pCO2 60.0 mmHg (32.0-48.0) H 11/30/21 12:04 ABG pCO2 40.3 mm Hg 12/06/21 11:45 POC ABG pO2 68.3 mmHg (83-108) L 11/30/21 12:04 ABG pO2 75.9 mm Hg (80.0-90.0) L 12/06/21 11:45 POC ABG HCO3 32.9 11/30/21 12:04 ABG O2 Saturation 95.9 % (95.0-99.0) 12/06/21 11:45 PT/INR, D-dimer PT 12.9 Sec. (12.2-14.9) 11/18/21 00:19 INR 0.88 (0.87-1.13) 11/18/21 00:19 D-Dimer 464.80 ng/mlDDU (0-234) H 11/18/21 05:15 Abnormal lab findings: Abnormal Labs 11/18/21 11/18/21 11/18/21 00:01 00:19 00:19 WBC 15.6 H RBC 5.59 H Hgb 14.8 H Hct 49.8 H MCH 27 L MCHC RDW 16.9 H Plt Count Lymph % (Auto) [place] % (Auto) Lymph # (Auto) [place] # (Auto) Seg Neutrophils % Lymphocytes % (Manual) 4.0 L Seg Neutrophils # Seg Neutrophils # Man 14.7 H Lymphocytes # (Manual) 0.6 L D-Dimer ABG pH POC ABG pCO2 POC ABG pO2 ABG pO2 ABG HCO3 ABG O2 Saturation ABG Base Excess ABG Hemoglobin ABG Oxyhemoglobin ABG Sodium ABG Glucose Oxyhemoglobin Carboxyhemoglobin Sodium Potassium Chloride Carbon Dioxide BUN Creatinine Glucose 148 H POC Glucose 151 H Calcium Phosphorus Magnesium AST Lactate Dehydrogenase Albumin Triglycerides Arterial Blood Glucose Arterial Blood Ionized Calcium Urine WBC (Auto) Salicylates Acetaminophen 11/18/21 11/18/21 11/18/21 00:19 00:19 00:19 WBC RBC Hgb Hct MCH MCHC RDW Plt Count Lymph % (Auto) [place] % (Auto) Lymph # (Auto) [place] # (Auto) Seg Neutrophils % Lymphocytes % (Manual) Seg Neutrophils # Seg Neutrophils # Man Lymphocytes # (Manual) D-Dimer ABG pH POC ABG pCO2 POC ABG pO2 ABG pO2 ABG HCO3 ABG O2 Saturation ABG Base Excess ABG Hemoglobin ABG Oxyhemoglobin ABG Sodium ABG Glucose Oxyhemoglobin Carboxyhemoglobin Sodium Potassium Chloride Carbon Dioxide BUN Creatinine Glucose POC Glucose Calcium Phosphorus Magnesium 2.50 H AST Lactate Dehydrogenase Albumin Triglycerides Arterial Blood Glucose Arterial Blood Ionized Calcium Urine WBC (Auto) Salicylates < 0.3 L Acetaminophen 5.0 L 11/18/21 11/18/21 11/18/21 01:03 02:00 05:15 WBC RBC Hgb Hct MCH MCHC RDW Plt Count Lymph % (Auto) [place] % (Auto) Lymph # (Auto) [place] # (Auto) Seg Neutrophils % Lymphocytes % (Manual) Seg Neutrophils # Seg Neutrophils # Man Lymphocytes # (Manual) D-Dimer 464.80 H ABG pH POC ABG pCO2 POC ABG pO2 ABG pO2 ABG HCO3 35.8 H ABG O2 Saturation ABG Base Excess 7.8 H ABG Hemoglobin ABG Oxyhemoglobin ABG Sodium ABG Glucose Oxyhemoglobin 91.9 L Carboxyhemoglobin Sodium Potassium Chloride Carbon Dioxide BUN Creatinine Glucose POC Glucose Calcium Phosphorus Magnesium AST Lactate Dehydrogenase Albumin Triglycerides Arterial Blood Glucose Arterial Blood Ionized Calcium Urine WBC (Auto) 16.0 H Salicylates Acetaminophen 11/18/21 11/18/21 11/18/21 05:15 15:47 15:47 WBC 13.5 H RBC 5.60 H Hgb 14.9 H Hct 49.1 H MCH 27 L MCHC RDW 17.3 H Plt Count Lymph % (Auto) 7.9 L [place] % (Auto) 10.1 H Lymph # (Auto) 1.1 L [place] # (Auto) 1.4 H Seg Neutrophils % 81.7 H Lymphocytes % (Manual) Seg Neutrophils # 11.0 H Seg Neutrophils # Man Lymphocytes # (Manual) D-Dimer ABG pH POC ABG pCO2 POC ABG pO2 ABG pO2 ABG HCO3 ABG O2 Saturation ABG Base Excess ABG Hemoglobin ABG Oxyhemoglobin ABG Sodium ABG Glucose Oxyhemoglobin Carboxyhemoglobin Sodium Potassium Chloride Carbon Dioxide BUN Creatinine Glucose 138 H POC Glucose Calcium Phosphorus Magnesium AST Lactate Dehydrogenase 275 H Albumin Triglycerides Arterial Blood Glucose Arterial Blood Ionized Calcium Urine WBC (Auto) Salicylates Acetaminophen 11/18/21 11/18/21 11/19/21 18:45 23:33 04:58 WBC RBC Hgb Hct MCH MCHC RDW Plt Count Lymph % (Auto) [place] % (Auto) Lymph # (Auto) [place] # (Auto) Seg Neutrophils % Lymphocytes % (Manual) Seg Neutrophils # Seg Neutrophils # Man Lymphocytes # (Manual) D-Dimer ABG pH POC ABG pCO2 POC ABG pO2 ABG pO2 ABG HCO3 ABG O2 Saturation ABG Base Excess ABG Hemoglobin ABG Oxyhemoglobin ABG Sodium ABG Glucose Oxyhemoglobin Carboxyhemoglobin Sodium Potassium Chloride Carbon Dioxide BUN Creatinine Glucose 130 H POC Glucose 132 H 113 H Calcium Phosphorus Magnesium AST Lactate Dehydrogenase Albumin Triglycerides Arterial Blood Glucose Arterial Blood Ionized Calcium Urine WBC (Auto) Salicylates Acetaminophen 11/19/21 11/19/21 11/19/21 07:59 07:59 08:55 WBC 12.7 H RBC 5.29 H Hgb Hct 45.5 H MCH 26 L MCHC RDW 17.4 H Plt Count Lymph % (Auto) 12.3 L [place] % (Auto) 9.6 H Lymph # (Auto) [place] # (Auto) 1.2 H Seg Neutrophils % 76.9 H Lymphocytes % (Manual) Seg Neutrophils # 9.7 H Seg Neutrophils # Man Lymphocytes # (Manual) D-Dimer ABG pH 7.518 H POC ABG pCO2 POC ABG pO2 ABG pO2 77.6 L ABG HCO3 30.1 H ABG O2 Saturation ABG Base Excess 6.9 H ABG Hemoglobin ABG Oxyhemoglobin ABG Sodium ABG Glucose Oxyhemoglobin Carboxyhemoglobin Sodium Potassium 3.1 L D Chloride Carbon Dioxide BUN Creatinine Glucose 115 H POC Glucose Calcium 8.1 L Phosphorus Magnesium AST Lactate Dehydrogenase Albumin Triglycerides Arterial Blood Glucose Arterial Blood Ionized Calcium Urine WBC (Auto) Salicylates Acetaminophen 11/19/21 11/19/21 11/20/21 11:33 16:22 04:20 WBC 13.9 H RBC 5.44 H Hgb Hct 49.3 H MCH 26 L MCHC 29 L RDW 18.3 H Plt Count Lymph % (Auto) [place] % (Auto) Lymph # (Auto) [place] # (Auto) Seg Neutrophils % Lymphocytes % (Manual) Seg Neutrophils # Seg Neutrophils # Man Lymphocytes # (Manual) D-Dimer ABG pH POC ABG pCO2 POC ABG pO2 ABG pO2 ABG HCO3 ABG O2 Saturation ABG Base Excess ABG Hemoglobin ABG Oxyhemoglobin ABG Sodium ABG Glucose Oxyhemoglobin Carboxyhemoglobin Sodium Potassium Chloride Carbon Dioxide BUN Creatinine Glucose POC Glucose 119 H 112 H Calcium Phosphorus Magnesium AST Lactate Dehydrogenase Albumin Triglycerides Arterial Blood Glucose Arterial Blood Ionized Calcium Urine WBC (Auto) Salicylates Acetaminophen 11/20/21 11/20/21 11/20/21 04:20 11:07 12:02 WBC RBC Hgb Hct MCH MCHC RDW Plt Count Lymph % (Auto) [place] % (Auto) Lymph # (Auto) [place] # (Auto) Seg Neutrophils % Lymphocytes % (Manual) Seg Neutrophils # Seg Neutrophils # Man Lymphocytes # (Manual) D-Dimer ABG pH 7.251 L POC ABG pCO2 POC ABG pO2 ABG pO2 66.3 L ABG HCO3 30.2 H ABG O2 Saturation 91.8 L ABG Base Excess ABG Hemoglobin ABG Oxyhemoglobin ABG Sodium ABG Glucose Oxyhemoglobin 89.4 L Carboxyhemoglobin Sodium 147 H Potassium Chloride Carbon Dioxide BUN 25 H Creatinine Glucose POC Glucose 118 H Calcium Phosphorus 6.40 H Magnesium AST Lactate Dehydrogenase Albumin Triglycerides Arterial Blood Glucose Arterial Blood Ionized Calcium Urine WBC (Auto) Salicylates Acetaminophen 11/20/21 11/21/21 11/21/21 17:31 00:07 04:44 WBC 14.0 H RBC 5.08 H Hgb Hct 44.7 H MCH 26 L MCHC 29 L RDW 17.8 H Plt Count Lymph % (Auto) [place] % (Auto) Lymph # (Auto) [place] # (Auto) Seg Neutrophils % Lymphocytes % (Manual) Seg Neutrophils # Seg Neutrophils # Man Lymphocytes # (Manual) D-Dimer ABG pH POC ABG pCO2 POC ABG pO2 ABG pO2 ABG HCO3 ABG O2 Saturation ABG Base Excess ABG Hemoglobin ABG Oxyhemoglobin ABG Sodium ABG Glucose Oxyhemoglobin Carboxyhemoglobin Sodium Potassium Chloride Carbon Dioxide BUN Creatinine Glucose POC Glucose 139 H 147 H Calcium Phosphorus Magnesium AST Lactate Dehydrogenase Albumin Triglycerides Arterial Blood Glucose Arterial Blood Ionized Calcium Urine WBC (Auto) Salicylates Acetaminophen 11/21/21 11/21/21 11/21/21 04:44 06:06 11:45 WBC RBC Hgb Hct MCH MCHC RDW Plt Count Lymph % (Auto) [place] % (Auto) Lymph # (Auto) [place] # (Auto) Seg Neutrophils % Lymphocytes % (Manual) Seg Neutrophils # Seg Neutrophils # Man Lymphocytes # (Manual) D-Dimer ABG pH POC ABG pCO2 POC ABG pO2 ABG pO2 ABG HCO3 ABG O2 Saturation ABG Base Excess ABG Hemoglobin ABG Oxyhemoglobin ABG Sodium ABG Glucose Oxyhemoglobin Carboxyhemoglobin Sodium Potassium Chloride Carbon Dioxide BUN 20 H Creatinine Glucose 157 H POC Glucose 158 H 119 H Calcium Phosphorus Magnesium AST Lactate Dehydrogenase Albumin Triglycerides Arterial Blood Glucose Arterial Blood Ionized Calcium Urine WBC (Auto) Salicylates Acetaminophen 11/21/21 11/21/21 11/22/21 11:50 16:54 00:03 WBC RBC Hgb Hct MCH MCHC RDW Plt Count Lymph % (Auto) [place] % (Auto) Lymph # (Auto) [place] # (Auto) Seg Neutrophils % Lymphocytes % (Manual) Seg Neutrophils # Seg Neutrophils # Man Lymphocytes # (Manual) D-Dimer ABG pH POC ABG pCO2 POC ABG pO2 ABG pO2 61.8 L ABG HCO3 35.2 H ABG O2 Saturation 92.8 L ABG Base Excess 8.1 H ABG Hemoglobin ABG Oxyhemoglobin ABG Sodium ABG Glucose Oxyhemoglobin 90.6 L Carboxyhemoglobin Sodium Potassium Chloride Carbon Dioxide BUN Creatinine Glucose POC Glucose 149 H 133 H Calcium Phosphorus Magnesium AST Lactate Dehydrogenase Albumin Triglycerides Arterial Blood Glucose Arterial Blood Ionized Calcium Urine WBC (Auto) Salicylates Acetaminophen 11/22/21 11/22/21 11/22/21 04:39 04:39 04:39 WBC 14.1 H RBC Hgb Hct 43.4 H MCH 26 L MCHC RDW 17.9 H Plt Count Lymph % (Auto) [place] % (Auto) Lymph # (Auto) [place] # (Auto) Seg Neutrophils % Lymphocytes % (Manual) Seg Neutrophils # Seg Neutrophils # Man Lymphocytes # (Manual) D-Dimer ABG pH POC ABG pCO2 POC ABG pO2 ABG pO2 ABG HCO3 ABG O2 Saturation ABG Base Excess ABG Hemoglobin ABG Oxyhemoglobin ABG Sodium ABG Glucose Oxyhemoglobin Carboxyhemoglobin Sodium Potassium Chloride Carbon Dioxide 33 H BUN Creatinine Glucose 152 H POC Glucose Calcium Phosphorus Magnesium AST Lactate Dehydrogenase Albumin Triglycerides 185 H Arterial Blood Glucose Arterial Blood Ionized Calcium Urine WBC (Auto) Salicylates Acetaminophen 11/22/21 11/22/21 11/22/21 05:02 10:56 11:31 WBC RBC Hgb Hct MCH MCHC RDW Plt Count Lymph % (Auto) [place] % (Auto) Lymph # (Auto) [place] # (Auto) Seg Neutrophils % Lymphocytes % (Manual) Seg Neutrophils # Seg Neutrophils # Man Lymphocytes # (Manual) D-Dimer ABG pH POC ABG pCO2 POC ABG pO2 ABG pO2 55.3 L ABG HCO3 39.4 H ABG O2 Saturation 89.5 L ABG Base Excess 11.7 H ABG Hemoglobin ABG Oxyhemoglobin ABG Sodium ABG Glucose Oxyhemoglobin 87.2 L Carboxyhemoglobin Sodium Potassium Chloride Carbon Dioxide BUN Creatinine Glucose POC Glucose 158 H 116 H Calcium Phosphorus Magnesium AST Lactate Dehydrogenase Albumin Triglycerides Arterial Blood Glucose Arterial Blood Ionized Calcium Urine WBC (Auto) Salicylates Acetaminophen 11/22/21 11/22/21 11/23/21 17:29 23:22 04:49 WBC 13.6 H RBC 5.18 H Hgb Hct 45.6 H MCH 25 L MCHC 29 L RDW 17.5 H Plt Count Lymph % (Auto) [place] % (Auto) Lymph # (Auto) [place] # (Auto) Seg Neutrophils % Lymphocytes % (Manual) Seg Neutrophils # Seg Neutrophils # Man Lymphocytes # (Manual) D-Dimer ABG pH POC ABG pCO2 POC ABG pO2 ABG pO2 ABG HCO3 ABG O2 Saturation ABG Base Excess ABG Hemoglobin ABG Oxyhemoglobin ABG Sodium ABG Glucose Oxyhemoglobin Carboxyhemoglobin Sodium Potassium Chloride Carbon Dioxide BUN Creatinine Glucose POC Glucose 129 H 171 H Calcium Phosphorus Magnesium AST Lactate Dehydrogenase Albumin Triglycerides Arterial Blood Glucose Arterial Blood Ionized Calcium Urine WBC (Auto) Salicylates Acetaminophen 11/23/21 11/23/21 11/23/21 04:49 11:53 16:22 WBC RBC Hgb Hct MCH MCHC RDW Plt Count Lymph % (Auto) [place] % (Auto) Lymph # (Auto) [place] # (Auto) Seg Neutrophils % Lymphocytes % (Manual) Seg Neutrophils # Seg Neutrophils # Man Lymphocytes # (Manual) D-Dimer ABG pH POC ABG pCO2 POC ABG pO2 ABG pO2 61.8 L ABG HCO3 40.9 H ABG O2 Saturation 93.4 L ABG Base Excess 14.6 H ABG Hemoglobin 6.9 L ABG Oxyhemoglobin ABG Sodium ABG Glucose Oxyhemoglobin 90.2 L Carboxyhemoglobin Sodium 146 H Potassium Chloride Carbon Dioxide 36 H BUN 21 H Creatinine Glucose 155 H POC Glucose 166 H Calcium Phosphorus Magnesium AST Lactate Dehydrogenase Albumin Triglycerides Arterial Blood Glucose Arterial Blood Ionized Calcium Urine WBC (Auto) Salicylates Acetaminophen 11/23/21 11/23/21 11/24/21 17:11 23:07 05:03 WBC RBC Hgb Hct MCH MCHC RDW Plt Count Lymph % (Auto) [place] % (Auto) Lymph # (Auto) [place] # (Auto) Seg Neutrophils % Lymphocytes % (Manual) Seg Neutrophils # Seg Neutrophils # Man Lymphocytes # (Manual) D-Dimer ABG pH POC ABG pCO2 POC ABG pO2 ABG pO2 ABG HCO3 ABG O2 Saturation ABG Base Excess ABG Hemoglobin ABG Oxyhemoglobin ABG Sodium ABG Glucose Oxyhemoglobin Carboxyhemoglobin Sodium Potassium Chloride Carbon Dioxide BUN Creatinine Glucose POC Glucose 142 H 197 H 183 H Calcium Phosphorus Magnesium AST Lactate Dehydrogenase Albumin Triglycerides Arterial Blood Glucose Arterial Blood Ionized Calcium Urine WBC (Auto) Salicylates Acetaminophen 11/24/21 11/24/21 11/24/21 08:33 08:33 09:00 WBC RBC Hgb Hct 43.6 H MCH 26 L MCHC RDW 18.0 H Plt Count Lymph % (Auto) [place] % (Auto) Lymph # (Auto) [place] # (Auto) Seg Neutrophils % Lymphocytes % (Manual) Seg Neutrophils # Seg Neutrophils # Man Lymphocytes # (Manual) D-Dimer ABG pH POC ABG pCO2 POC ABG pO2 ABG pO2 69.1 L ABG HCO3 40.1 H ABG O2 Saturation 93.2 L ABG Base Excess 11.9 H ABG Hemoglobin ABG Oxyhemoglobin ABG Sodium ABG Glucose Oxyhemoglobin 90.3 L Carboxyhemoglobin Sodium Potassium 5.3 H D Chloride Carbon Dioxide 36 H BUN 25 H Creatinine 0.5 L Glucose 185 H POC Glucose Calcium Phosphorus Magnesium AST Lactate Dehydrogenase Albumin Triglycerides Arterial Blood Glucose Arterial Blood Ionized Calcium Urine WBC (Auto) Salicylates Acetaminophen 11/24/21 11/24/21 11/25/21 12:00 18:08 00:50 WBC RBC Hgb Hct MCH MCHC RDW Plt Count Lymph % (Auto) [place] % (Auto) Lymph # (Auto) [place] # (Auto) Seg Neutrophils % Lymphocytes % (Manual) Seg Neutrophils # Seg Neutrophils # Man Lymphocytes # (Manual) D-Dimer ABG pH POC ABG pCO2 POC ABG pO2 ABG pO2 67.3 L ABG HCO3 41.6 H 42.7 H ABG O2 Saturation 94.5 L ABG Base Excess 12.3 H 14.7 H ABG Hemoglobin ABG Oxyhemoglobin ABG Sodium ABG Glucose Oxyhemoglobin 93.1 L 91.6 L Carboxyhemoglobin Sodium Potassium Chloride Carbon Dioxide BUN Creatinine Glucose POC Glucose 168 H Calcium Phosphorus Magnesium AST Lactate Dehydrogenase Albumin Triglycerides Arterial Blood Glucose Arterial Blood Ionized Calcium Urine WBC (Auto) Salicylates Acetaminophen 11/25/21 11/25/21 11/25/21 04:57 04:57 14:18 WBC RBC 5.13 H Hgb Hct 45.1 H MCH 26 L MCHC RDW 17.7 H Plt Count Lymph % (Auto) [place] % (Auto) Lymph # (Auto) [place] # (Auto) Seg Neutrophils % Lymphocytes % (Manual) Seg Neutrophils # Seg Neutrophils # Man Lymphocytes # (Manual) D-Dimer ABG pH POC ABG pCO2 POC ABG pO2 ABG pO2 65.1 L ABG HCO3 41.7 H ABG O2 Saturation 94.2 L ABG Base Excess 13.4 H ABG Hemoglobin ABG Oxyhemoglobin ABG Sodium ABG Glucose Oxyhemoglobin 91.3 L Carboxyhemoglobin Sodium 146 H Potassium Chloride Carbon Dioxide 38 H BUN 26 H Creatinine 0.5 L Glucose 210 H POC Glucose Calcium Phosphorus Magnesium AST Lactate Dehydrogenase Albumin Triglycerides Arterial Blood Glucose Arterial Blood Ionized Calcium Urine WBC (Auto) Salicylates Acetaminophen 11/25/21 11/26/21 11/26/21 19:22 04:28 04:28 WBC RBC 5.05 H Hgb Hct 44.0 H MCH 26 L MCHC RDW 17.6 H Plt Count Lymph % (Auto) [place] % (Auto) Lymph # (Auto) [place] # (Auto) Seg Neutrophils % Lymphocytes % (Manual) Seg Neutrophils # Seg Neutrophils # Man Lymphocytes # (Manual) D-Dimer ABG pH POC ABG pCO2 POC ABG pO2 ABG pO2 ABG HCO3 ABG O2 Saturation ABG Base Excess ABG Hemoglobin ABG Oxyhemoglobin ABG Sodium ABG Glucose Oxyhemoglobin Carboxyhemoglobin Sodium 146 H Potassium Chloride Carbon Dioxide 38 H BUN 30 H Creatinine Glucose 124 H POC Glucose 151 H Calcium 10.5 H Phosphorus Magnesium AST Lactate Dehydrogenase Albumin Triglycerides Arterial Blood Glucose Arterial Blood Ionized Calcium Urine WBC (Auto) Salicylates Acetaminophen 11/26/21 11/26/21 11/27/21 05:50 10:28 08:31 WBC 12.4 H RBC 5.62 H Hgb 14.6 H Hct 48.7 H MCH 26 L MCHC RDW 17.9 H Plt Count 469 H Lymph % (Auto) [place] % (Auto) Lymph # (Auto) [place] # (Auto) Seg Neutrophils % Lymphocytes % (Manual) Seg Neutrophils # Seg Neutrophils # Man Lymphocytes # (Manual) D-Dimer ABG pH POC ABG pCO2 POC ABG pO2 ABG pO2 66.5 L ABG HCO3 39.6 H ABG O2 Saturation 92.9 L ABG Base Excess 11.4 H ABG Hemoglobin 16.8 H ABG Oxyhemoglobin ABG Sodium ABG Glucose Oxyhemoglobin 90.3 L Carboxyhemoglobin Sodium Potassium Chloride Carbon Dioxide BUN Creatinine Glucose POC Glucose 121 H Calcium Phosphorus Magnesium AST Lactate Dehydrogenase Albumin Triglycerides Arterial Blood Glucose Arterial Blood Ionized Calcium Urine WBC (Auto) Salicylates Acetaminophen 11/27/21 11/27/21 11/27/21 08:31 09:46 11:49 WBC RBC Hgb Hct MCH MCHC RDW Plt Count Lymph % (Auto) [place] % (Auto) Lymph # (Auto) [place] # (Auto) Seg Neutrophils % Lymphocytes % (Manual) Seg Neutrophils # Seg Neutrophils # Man Lymphocytes # (Manual) D-Dimer ABG pH POC ABG pCO2 POC ABG pO2 ABG pO2 ABG HCO3 ABG O2 Saturation ABG Base Excess ABG Hemoglobin ABG Oxyhemoglobin ABG Sodium ABG Glucose Oxyhemoglobin Carboxyhemoglobin Sodium 150 H Potassium Chloride Carbon Dioxide 33 H BUN 31 H Creatinine Glucose 135 H POC Glucose 140 H 153 H Calcium 11.0 H Phosphorus Magnesium AST Lactate Dehydrogenase Albumin Triglycerides Arterial Blood Glucose Arterial Blood Ionized Calcium Urine WBC (Auto) Salicylates Acetaminophen 11/27/21 11/27/21 11/27/21 14:16 17:14 23:25 WBC RBC Hgb Hct MCH MCHC RDW Plt Count Lymph % (Auto) [place] % (Auto) Lymph # (Auto) [place] # (Auto) Seg Neutrophils % Lymphocytes % (Manual) Seg Neutrophils # Seg Neutrophils # Man Lymphocytes # (Manual) D-Dimer ABG pH 7.485 H POC ABG pCO2 48.7 H POC ABG pO2 74.5 L ABG pO2 ABG HCO3 ABG O2 Saturation ABG Base Excess ABG Hemoglobin ABG Oxyhemoglobin ABG Sodium 145.5 H ABG Glucose 153 H Oxyhemoglobin Carboxyhemoglobin 1.6 H Sodium Potassium Chloride Carbon Dioxide BUN Creatinine Glucose POC Glucose 142 H 123 H Calcium Phosphorus Magnesium AST Lactate Dehydrogenase Albumin Triglycerides Arterial Blood Glucose 153 H Arterial Blood Ionized Calcium 5.4 H Urine WBC (Auto) Salicylates Acetaminophen 11/28/21 11/28/21 11/28/21 03:38 03:38 05:16 WBC RBC 5.05 H Hgb Hct 43.6 H MCH 26 L MCHC RDW 17.8 H Plt Count Lymph % (Auto) [place] % (Auto) Lymph # (Auto) [place] # (Auto) Seg Neutrophils % Lymphocytes % (Manual) Seg Neutrophils # Seg Neutrophils # Man Lymphocytes # (Manual) D-Dimer ABG pH POC ABG pCO2 POC ABG pO2 ABG pO2 ABG HCO3 ABG O2 Saturation ABG Base Excess ABG Hemoglobin ABG Oxyhemoglobin ABG Sodium ABG Glucose Oxyhemoglobin Carboxyhemoglobin Sodium 150 H Potassium Chloride Carbon Dioxide 32 H BUN 51 H Creatinine Glucose 143 H POC Glucose 138 H Calcium 10.5 H Phosphorus Magnesium AST Lactate Dehydrogenase Albumin Triglycerides Arterial Blood Glucose Arterial Blood Ionized Calcium Urine WBC (Auto) Salicylates Acetaminophen 11/28/21 11/28/21 11/29/21 17:01 23:51 03:51 WBC RBC Hgb Hct MCH MCHC RDW Plt Count Lymph % (Auto) [place] % (Auto) Lymph # (Auto) [place] # (Auto) Seg Neutrophils % Lymphocytes % (Manual) Seg Neutrophils # Seg Neutrophils # Man Lymphocytes # (Manual) D-Dimer ABG pH POC ABG pCO2 54.1 H POC ABG pO2 70.6 L ABG pO2 ABG HCO3 ABG O2 Saturation ABG Base Excess ABG Hemoglobin ABG Oxyhemoglobin 93.1 L ABG Sodium ABG Glucose 144 H Oxyhemoglobin Carboxyhemoglobin Sodium Potassium Chloride Carbon Dioxide BUN Creatinine Glucose POC Glucose 145 H 130 H Calcium Phosphorus Magnesium AST Lactate Dehydrogenase Albumin Triglycerides Arterial Blood Glucose 144 H Arterial Blood Ionized Calcium Urine WBC (Auto) Salicylates Acetaminophen 11/29/21 11/29/21 11/29/21 05:51 05:51 12:09 WBC 11.1 H RBC Hgb Hct MCH 26 L MCHC RDW 17.8 H Plt Count Lymph % (Auto) [place] % (Auto) Lymph # (Auto) [place] # (Auto) Seg Neutrophils % Lymphocytes % (Manual) Seg Neutrophils # Seg Neutrophils # Man Lymphocytes # (Manual) D-Dimer ABG pH POC ABG pCO2 POC ABG pO2 ABG pO2 ABG HCO3 ABG O2 Saturation ABG Base Excess ABG Hemoglobin ABG Oxyhemoglobin ABG Sodium ABG Glucose Oxyhemoglobin Carboxyhemoglobin Sodium Potassium Chloride Carbon Dioxide 31 H BUN 42 H Creatinine Glucose 133 H POC Glucose 157 H Calcium Phosphorus Magnesium AST Lactate Dehydrogenase Albumin Triglycerides Arterial Blood Glucose Arterial Blood Ionized Calcium Urine WBC (Auto) Salicylates Acetaminophen 11/29/21 11/30/21 11/30/21 17:27 00:23 04:42 WBC RBC 5.05 H Hgb Hct 43.6 H MCH 26 L MCHC RDW 17.5 H Plt Count Lymph % (Auto) [place] % (Auto) Lymph # (Auto) [place] # (Auto) Seg Neutrophils % Lymphocytes % (Manual) Seg Neutrophils # Seg Neutrophils # Man Lymphocytes # (Manual) D-Dimer ABG pH POC ABG pCO2 POC ABG pO2 ABG pO2 ABG HCO3 ABG O2 Saturation ABG Base Excess ABG Hemoglobin ABG Oxyhemoglobin ABG Sodium ABG Glucose Oxyhemoglobin Carboxyhemoglobin Sodium Potassium Chloride Carbon Dioxide BUN Creatinine Glucose POC Glucose 164 H 192 H Calcium Phosphorus Magnesium AST Lactate Dehydrogenase Albumin Triglycerides Arterial Blood Glucose Arterial Blood Ionized Calcium Urine WBC (Auto) Salicylates Acetaminophen 11/30/21 11/30/21 11/30/21 04:42 11:27 12:04 WBC RBC Hgb Hct MCH MCHC RDW Plt Count Lymph % (Auto) [place] % (Auto) Lymph # (Auto) [place] # (Auto) Seg Neutrophils % Lymphocytes % (Manual) Seg Neutrophils # Seg Neutrophils # Man Lymphocytes # (Manual) D-Dimer ABG pH POC ABG pCO2 60.0 H POC ABG pO2 68.3 L ABG pO2 ABG HCO3 ABG O2 Saturation ABG Base Excess ABG Hemoglobin ABG Oxyhemoglobin 90.9 L ABG Sodium 145.1 H ABG Glucose 122 H Oxyhemoglobin Carboxyhemoglobin Sodium Potassium Chloride Carbon Dioxide BUN 32 H Creatinine 0.5 L Glucose 178 H POC Glucose 156 H Calcium Phosphorus Magnesium AST Lactate Dehydrogenase Albumin Triglycerides Arterial Blood Glucose 122 H Arterial Blood Ionized Calcium Urine WBC (Auto) Salicylates Acetaminophen 11/30/21 11/30/21 12/01/21 17:35 23:51 04:00 WBC 13.8 H RBC Hgb Hct MCH 26 L MCHC RDW 17.6 H Plt Count 455 H Lymph % (Auto) [place] % (Auto) Lymph # (Auto) [place] # (Auto) Seg Neutrophils % Lymphocytes % (Manual) Seg Neutrophils # Seg Neutrophils # Man Lymphocytes # (Manual) D-Dimer ABG pH POC ABG pCO2 POC ABG pO2 ABG pO2 ABG HCO3 ABG O2 Saturation ABG Base Excess ABG Hemoglobin ABG Oxyhemoglobin ABG Sodium ABG Glucose Oxyhemoglobin Carboxyhemoglobin Sodium Potassium Chloride Carbon Dioxide BUN Creatinine Glucose POC Glucose 124 H 158 H Calcium Phosphorus Magnesium AST Lactate Dehydrogenase Albumin Triglycerides Arterial Blood Glucose Arterial Blood Ionized Calcium Urine WBC (Auto) Salicylates Acetaminophen 12/01/21 12/01/21 12/01/21 04:00 06:03 11:13 WBC RBC Hgb Hct MCH MCHC RDW Plt Count Lymph % (Auto) [place] % (Auto) Lymph # (Auto) [place] # (Auto) Seg Neutrophils % Lymphocytes % (Manual) Seg Neutrophils # Seg Neutrophils # Man Lymphocytes # (Manual) D-Dimer ABG pH POC ABG pCO2 POC ABG pO2 ABG pO2 ABG HCO3 ABG O2 Saturation ABG Base Excess ABG Hemoglobin ABG Oxyhemoglobin ABG Sodium ABG Glucose Oxyhemoglobin Carboxyhemoglobin Sodium Potassium Chloride Carbon Dioxide BUN 36 H Creatinine 0.5 L Glucose 188 H POC Glucose 178 H 121 H Calcium Phosphorus Magnesium AST Lactate Dehydrogenase Albumin Triglycerides Arterial Blood Glucose Arterial Blood Ionized Calcium Urine WBC (Auto) Salicylates Acetaminophen 12/01/21 12/01/21 12/01/21 11:42 16:54 23:43 WBC RBC Hgb Hct MCH MCHC RDW Plt Count Lymph % (Auto) [place] % (Auto) Lymph # (Auto) [place] # (Auto) Seg Neutrophils % Lymphocytes % (Manual) Seg Neutrophils # Seg Neutrophils # Man Lymphocytes # (Manual) D-Dimer ABG pH POC ABG pCO2 POC ABG pO2 ABG pO2 71.0 L ABG HCO3 32.3 H ABG O2 Saturation 94.5 L ABG Base Excess 5.7 H ABG Hemoglobin ABG Oxyhemoglobin ABG Sodium ABG Glucose Oxyhemoglobin 92.6 L Carboxyhemoglobin Sodium Potassium Chloride Carbon Dioxide BUN Creatinine Glucose POC Glucose 129 H 115 H Calcium Phosphorus Magnesium AST Lactate Dehydrogenase Albumin Triglycerides Arterial Blood Glucose Arterial Blood Ionized Calcium Urine WBC (Auto) Salicylates Acetaminophen 12/02/21 12/02/21 12/02/21 04:55 04:55 05:19 WBC RBC Hgb Hct MCH 26 L MCHC RDW 18.1 H Plt Count 476 H Lymph % (Auto) [place] % (Auto) Lymph # (Auto) [place] # (Auto) Seg Neutrophils % Lymphocytes % (Manual) Seg Neutrophils # Seg Neutrophils # Man Lymphocytes # (Manual) D-Dimer ABG pH POC ABG pCO2 POC ABG pO2 ABG pO2 ABG HCO3 ABG O2 Saturation ABG Base Excess ABG Hemoglobin ABG Oxyhemoglobin ABG Sodium ABG Glucose Oxyhemoglobin Carboxyhemoglobin Sodium Potassium Chloride Carbon Dioxide 33 H BUN 30 H Creatinine 0.5 L Glucose 140 H POC Glucose 127 H Calcium Phosphorus Magnesium AST Lactate Dehydrogenase Albumin Triglycerides Arterial Blood Glucose Arterial Blood Ionized Calcium Urine WBC (Auto) Salicylates Acetaminophen 12/02/21 12/02/21 12/02/21 11:33 17:19 23:49 WBC RBC Hgb Hct MCH MCHC RDW Plt Count Lymph % (Auto) [place] % (Auto) Lymph # (Auto) [place] # (Auto) Seg Neutrophils % Lymphocytes % (Manual) Seg Neutrophils # Seg Neutrophils # Man Lymphocytes # (Manual) D-Dimer ABG pH POC ABG pCO2 POC ABG pO2 ABG pO2 ABG HCO3 ABG O2 Saturation ABG Base Excess ABG Hemoglobin ABG Oxyhemoglobin ABG Sodium ABG Glucose Oxyhemoglobin Carboxyhemoglobin Sodium Potassium Chloride Carbon Dioxide BUN Creatinine Glucose POC Glucose 118 H 139 H 140 H Calcium Phosphorus Magnesium AST Lactate Dehydrogenase Albumin Triglycerides Arterial Blood Glucose Arterial Blood Ionized Calcium Urine WBC (Auto) Salicylates Acetaminophen 12/03/21 12/03/21 12/03/21 04:52 04:52 05:03 WBC RBC 5.15 H Hgb Hct 44.2 H MCH 27 L MCHC RDW 17.8 H Plt Count 566 H Lymph % (Auto) [place] % (Auto) Lymph # (Auto) [place] # (Auto) Seg Neutrophils % Lymphocytes % (Manual) Seg Neutrophils # Seg Neutrophils # Man Lymphocytes # (Manual) D-Dimer ABG pH POC ABG pCO2 POC ABG pO2 ABG pO2 ABG HCO3 ABG O2 Saturation ABG Base Excess ABG Hemoglobin ABG Oxyhemoglobin ABG Sodium ABG Glucose Oxyhemoglobin Carboxyhemoglobin Sodium Potassium Chloride Carbon Dioxide BUN 22 H Creatinine 0.4 L Glucose 142 H POC Glucose 142 H Calcium Phosphorus Magnesium AST Lactate Dehydrogenase Albumin Triglycerides Arterial Blood Glucose Arterial Blood Ionized Calcium Urine WBC (Auto) Salicylates Acetaminophen 12/03/21 12/03/21 12/04/21 11:16 16:11 04:48 WBC 12.1 H RBC 5.58 H Hgb Hct 47.8 H MCH 26 L MCHC RDW 18.4 H Plt Count 576 H Lymph % (Auto) [place] % (Auto) Lymph # (Auto) [place] # (Auto) Seg Neutrophils % Lymphocytes % (Manual) Seg Neutrophils # Seg Neutrophils # Man Lymphocytes # (Manual) D-Dimer ABG pH POC ABG pCO2 POC ABG pO2 ABG pO2 ABG HCO3 ABG O2 Saturation ABG Base Excess ABG Hemoglobin ABG Oxyhemoglobin ABG Sodium ABG Glucose Oxyhemoglobin Carboxyhemoglobin Sodium Potassium Chloride Carbon Dioxide BUN Creatinine Glucose POC Glucose 147 H 140 H Calcium Phosphorus Magnesium AST Lactate Dehydrogenase Albumin Triglycerides Arterial Blood Glucose Arterial Blood Ionized Calcium Urine WBC (Auto) Salicylates Acetaminophen 12/04/21 12/04/21 12/04/21 04:48 05:42 11:54 WBC RBC Hgb Hct MCH MCHC RDW Plt Count Lymph % (Auto) [place] % (Auto) Lymph # (Auto) [place] # (Auto) Seg Neutrophils % Lymphocytes % (Manual) Seg Neutrophils # Seg Neutrophils # Man Lymphocytes # (Manual) D-Dimer ABG pH POC ABG pCO2 POC ABG pO2 ABG pO2 ABG HCO3 ABG O2 Saturation ABG Base Excess ABG Hemoglobin ABG Oxyhemoglobin ABG Sodium ABG Glucose Oxyhemoglobin Carboxyhemoglobin Sodium Potassium Chloride Carbon Dioxide BUN 19 H Creatinine 0.5 L Glucose 123 H POC Glucose 111 H 121 H Calcium Phosphorus Magnesium AST Lactate Dehydrogenase Albumin Triglycerides Arterial Blood Glucose Arterial Blood Ionized Calcium Urine WBC (Auto) Salicylates Acetaminophen 12/05/21 12/05/21 12/05/21 07:53 08:02 08:02 WBC 11.3 H RBC 5.94 H Hgb 15.3 H Hct 50.9 H MCH 26 L MCHC RDW 18.3 H Plt Count 611 H Lymph % (Auto) [place] % (Auto) Lymph # (Auto) [place] # (Auto) Seg Neutrophils % Lymphocytes % (Manual) Seg Neutrophils # Seg Neutrophils # Man Lymphocytes # (Manual) D-Dimer ABG pH POC ABG pCO2 POC ABG pO2 ABG pO2 ABG HCO3 ABG O2 Saturation ABG Base Excess ABG Hemoglobin ABG Oxyhemoglobin ABG Sodium ABG Glucose Oxyhemoglobin Carboxyhemoglobin Sodium Potassium Chloride Carbon Dioxide BUN 19 H Creatinine 0.5 L Glucose POC Glucose 112 H Calcium Phosphorus Magnesium AST Lactate Dehydrogenase Albumin Triglycerides Arterial Blood Glucose Arterial Blood Ionized Calcium Urine WBC (Auto) Salicylates Acetaminophen 12/05/21 12/05/21 12/06/21 11:10 15:59 07:27 WBC RBC Hgb Hct MCH MCHC RDW Plt Count Lymph % (Auto) [place] % (Auto) Lymph # (Auto) [place] # (Auto) Seg Neutrophils % Lymphocytes % (Manual) Seg Neutrophils # Seg Neutrophils # Man Lymphocytes # (Manual) D-Dimer ABG pH POC ABG pCO2 POC ABG pO2 ABG pO2 ABG HCO3 ABG O2 Saturation ABG Base Excess ABG Hemoglobin ABG Oxyhemoglobin ABG Sodium ABG Glucose Oxyhemoglobin Carboxyhemoglobin Sodium Potassium Chloride Carbon Dioxide BUN Creatinine Glucose POC Glucose 125 H 108 H 112 H Calcium Phosphorus Magnesium AST Lactate Dehydrogenase Albumin Triglycerides Arterial Blood Glucose Arterial Blood Ionized Calcium Urine WBC (Auto) Salicylates Acetaminophen 12/06/21 12/06/21 12/06/21 11:45 11:56 16:26 WBC RBC Hgb Hct MCH MCHC RDW Plt Count Lymph % (Auto) [place] % (Auto) Lymph # (Auto) [place] # (Auto) Seg Neutrophils % Lymphocytes % (Manual) Seg Neutrophils # Seg Neutrophils # Man Lymphocytes # (Manual) D-Dimer ABG pH POC ABG pCO2 POC ABG pO2 ABG pO2 75.9 L ABG HCO3 27.1 H ABG O2 Saturation ABG Base Excess ABG Hemoglobin ABG Oxyhemoglobin ABG Sodium ABG Glucose Oxyhemoglobin 93.7 L Carboxyhemoglobin Sodium Potassium Chloride Carbon Dioxide BUN Creatinine Glucose POC Glucose 125 H 139 H Calcium Phosphorus Magnesium AST Lactate Dehydrogenase Albumin Triglycerides Arterial Blood Glucose Arterial Blood Ionized Calcium Urine WBC (Auto) Salicylates Acetaminophen 12/06/21 12/06/21 12/07/21 21:48 22:12 08:49 WBC RBC Hgb Hct MCH MCHC RDW Plt Count Lymph % (Auto) [place] % (Auto) Lymph # (Auto) [place] # (Auto) Seg Neutrophils % Lymphocytes % (Manual) Seg Neutrophils # Seg Neutrophils # Man Lymphocytes # (Manual) D-Dimer ABG pH POC ABG pCO2 POC ABG pO2 ABG pO2 ABG HCO3 ABG O2 Saturation ABG Base Excess ABG Hemoglobin ABG Oxyhemoglobin ABG Sodium ABG Glucose Oxyhemoglobin Carboxyhemoglobin Sodium Potassium Chloride Carbon Dioxide BUN Creatinine Glucose POC Glucose 130 H 129 H 129 H Calcium Phosphorus Magnesium AST Lactate Dehydrogenase Albumin Triglycerides Arterial Blood Glucose Arterial Blood Ionized Calcium Urine WBC (Auto) Salicylates Acetaminophen 12/07/21 12/08/21 12/08/21 11:38 07:47 11:18 WBC RBC Hgb Hct MCH MCHC RDW Plt Count Lymph % (Auto) [place] % (Auto) Lymph # (Auto) [place] # (Auto) Seg Neutrophils % Lymphocytes % (Manual) Seg Neutrophils # Seg Neutrophils # Man Lymphocytes # (Manual) D-Dimer ABG pH POC ABG pCO2 POC ABG pO2 ABG pO2 ABG HCO3 ABG O2 Saturation ABG Base Excess ABG Hemoglobin ABG Oxyhemoglobin ABG Sodium ABG Glucose Oxyhemoglobin Carboxyhemoglobin Sodium Potassium Chloride Carbon Dioxide BUN Creatinine Glucose POC Glucose 146 H 109 H 131 H Calcium Phosphorus Magnesium AST Lactate Dehydrogenase Albumin Triglycerides Arterial Blood Glucose Arterial Blood Ionized Calcium Urine WBC (Auto) Salicylates Acetaminophen 12/08/21 12/09/21 12/09/21 20:12 06:23 06:23 WBC 13.1 H RBC 6.18 H Hgb 16.3 H Hct 53.7 H MCH 26 L MCHC RDW 18.9 H Plt Count 726 H Lymph % (Auto) [place] % (Auto) Lymph # (Auto) [place] # (Auto) 0.9 H Seg Neutrophils % 75.5 H Lymphocytes % (Manual) Seg Neutrophils # 9.9 H Seg Neutrophils # Man Lymphocytes # (Manual) D-Dimer ABG pH POC ABG pCO2 POC ABG pO2 ABG pO2 ABG HCO3 ABG O2 Saturation ABG Base Excess ABG Hemoglobin ABG Oxyhemoglobin ABG Sodium ABG Glucose Oxyhemoglobin Carboxyhemoglobin Sodium 149 H D Potassium Chloride 110.3 H Carbon Dioxide BUN 23 H Creatinine Glucose 109 H POC Glucose 106 H Calcium Phosphorus Magnesium AST 47 H Lactate Dehydrogenase Albumin 3.8 L Triglycerides Arterial Blood Glucose Arterial Blood Ionized Calcium Urine WBC (Auto) Salicylates Acetaminophen 12/09/21 12/09/21 12/09/21 08:13 12:40 17:35 WBC RBC Hgb Hct MCH MCHC RDW Plt Count Lymph % (Auto) [place] % (Auto) Lymph # (Auto) [place] # (Auto) Seg Neutrophils % Lymphocytes % (Manual) Seg Neutrophils # Seg Neutrophils # Man Lymphocytes # (Manual) D-Dimer ABG pH POC ABG pCO2 POC ABG pO2 ABG pO2 ABG HCO3 ABG O2 Saturation ABG Base Excess ABG Hemoglobin ABG Oxyhemoglobin ABG Sodium ABG Glucose Oxyhemoglobin Carboxyhemoglobin Sodium Potassium Chloride Carbon Dioxide BUN Creatinine Glucose POC Glucose 110 H 135 H 117 H Calcium Phosphorus Magnesium AST Lactate Dehydrogenase Albumin Triglycerides Arterial Blood Glucose Arterial Blood Ionized Calcium Urine WBC (Auto) Salicylates Acetaminophen 12/09/21 12/10/21 21:01 07:45 WBC RBC Hgb Hct MCH MCHC RDW Plt Count Lymph % (Auto) [place] % (Auto) Lymph # (Auto) [place] # (Auto) Seg Neutrophils % Lymphocytes % (Manual) Seg Neutrophils # Seg Neutrophils # Man Lymphocytes # (Manual) D-Dimer ABG pH POC ABG pCO2 POC ABG pO2 ABG pO2 ABG HCO3 ABG O2 Saturation ABG Base Excess ABG Hemoglobin ABG Oxyhemoglobin ABG Sodium ABG Glucose Oxyhemoglobin Carboxyhemoglobin Sodium Potassium Chloride Carbon Dioxide BUN Creatinine Glucose POC Glucose 147 H 133 H Calcium Phosphorus Magnesium AST Lactate Dehydrogenase Albumin Triglycerides Arterial Blood Glucose Arterial Blood Ionized Calcium Urine WBC (Auto) Salicylates Acetaminophen Allied health notes reviewed: nursing
--- NOTE | 2021-12-10 19:25 | Progress Note ---
Assessment and Plan Assessment and plan: This is a 81-year-old AA female with past medical history of CAD, CHF, pulmonary hypertension, COPD, and tobacco abuse admitted for acute hypoxemic respiratory failure 2/2 of bilateral pneumonia vs COPD exacerbation/pulmonary edema required intubation and ventilatory support. Acute Hypoxemic Respiratory Failure - Patient intubated in the ED on 11/18, extubated on 11/27 - Patient was reintubated on 11/27 due to stridor - 12/01 extubated - Stable on 3L NC this am, SPO2 above 92% - Wean O2 supplementation as tolerated Sepsis. Present on admission etiology secondary to pneumonia and UTI - Imagings shown bilateral opacities representing pulmonary edema vs pneumonia - WBCs as high as 15.6, now wnr -Initially had low-grade fever and then resolved - CRP and procal is normal - COVID swab neg - Urinalysis was significant for UTI. Urine cultures less than 10,000 CFU - B. cultures negative - Sputum culture +parisa Albicans - Patient completed IV antibiotic course COPD Exacerbation Currently no wheezing Bilateral Pneumonia - Chest x-ray shows bilateral pulmonary opacities possibly representing erin ma/atelectasis or pneumonia. - CT of the chest shows evidence of pulmonary hypertension with dense c onsolidation along the left lower lobe that is concerning for pneumonia. Mild interstitial pulmonary edema. Acute diastolic heart failure - 12/2020 Echo with a EF of 60- 65% - IV Lasix D/naren - Strict intake and output -Currently appears euvolemic clinically Hypertension - Patient SBP as in the 240s in the ED - S/p cardene gtt - PRN hydralazine for SBP greater than 160 H/o CAD H/o GERD - Passed bedside swallow, will start soft diet - Speech on consult - Continue PPI- Pepcid Urinary Retention - Briggs reinserted twice due to urinary retention - LAsix D/naren Hyperkalemia-improved - Trend BMP - Avoid nephrotoxic medications; Renally dose medications Hypernatremia -Likely, poor p.o. intake/dehydration -We will start D5 half-normal saline and monitor Encephalopathy with confusion and agitation -Remains very confused and agitated needing wrist restraints Regarding the family/son, she was functioning normally mentally and physically prior to this admission. -Likely has underlying dementia -CT head negative. - Seroquel and Buspar D/cd previously - PRN Haldol for agitation - Close monitoring of QTc - Avoid benzodiazepine to reduce the possibility of delirium -Avoid narcotics and benzos - Maintenance of sleep-wake cycle Elevated D-Dimer - BLE DVT negative - Lovenox added for DVT proph. - SCDs to bilateral lower extremities while in bed Disposition: Will need subacute rehab placement when stabilized, discussed with CM Hospital Course to Date: 11/18: Patient was seen and examined in the ED. Patient is intubated and sedated on propofol and versed gtt, RASS -3 to -4. Patient is in hypertensive emergency this am, SBP in the 240s, cardene gtt was initiated, maintain SBP less than 160. Leukocytosis noted, UA significant for UTI. Lactic, procal, and CRP are normal. Patient remains afebrile, continue empiric IV abx for now. Tracheal aspirate ordered, blood culture is pending. Continue to f/u on culture data. 11/19: Patient remains intubated and sedated. Patient did not tolerate sedation vacation this am, became tachycardic, hypertensive, with elevated RR and SPO2 in the low 80s. Sedation back on, continue to wean sedation as tolerated for RASS goal of 0 to -2. Pateimt is off cardene gtt, PRN hydralazine for SPO2 above 160. Low K repleted, repeat labs in the am. 11/20: Remains on the vent and sedated, RASS -3. Plan to wean down on sedation, might need to add Seroquel if patient is not tolerating sedation. Hypernatremia and increased BUN/Cr. this am, patient is on lasix BID. Will discuss with [facility] to possibly hold or decreased IV lasix for now, FWF added for high Na. Urinary retention post briggs removal, bladder scan and straight cath per protocol. 11/21: Patient remains on the vent, unable to wean sedation at this time, Seroquel added. Titrate sedation as tolerated for RASS of 0 to -2. Briggs was reinserted overnight for urinary retention, kidney function is stable. 11/22: [facility] reduced FiO2. We will start weaning tomorrow. No acute events reported overnight. 11/23: Patient spiked a fever overnight and was cultured this morning. Attempted CPAP trial again today. An ABG obtained post trial which has been given to [facility]. Slight hypernatremia noted. 11/24: I updated patient's son today, Kwame Salamanca at [phone]. Lasix stopped today. Patient placed on CPAP trial. She lasted on CPAP all day yesterday and was rested overnight on assist control. Given Kayexalate today due to hyperkalemia. 11/25: Patient was on SBT today and was not arousable for a while and a CT head was obtained which showed no acute intracranial abnormality. Patient later became severely agitated and was switched back to assist control and placed back on sedation. Family updated today. Restarted home Coreg due to hypotension. 11/26: SBT today, Haldol as needed. Briggs was removed yesterday bladder scan x2 with urine output. Slight hypernatremia persists. Blood pressure better controlled. 11/27/2021: Patient was extubated by [facility] this morning. Patient was severely agitated and given 2 mg Ativan, SBP 200s and given labatalol x1 10mg, NJ tube placed and given PO BP medications. She had stridor and was given racemic epi. We wanted to place BiPAP but after consolation with Dr. Gallegos it was decided to intubate the patient. She was intubated by Deidra, RT and given etomidate, versed and fentanyl. CXR in process. On fentanyl and precedex gtt. 11/28: added buspar to help with agitation, restarted serqoul at lower dose. weaned fi02 today. 11/29: Remains on the vent and on sedation, fent and precedx gtts. D/w CCM plan for possible SAT and SBT in the am, hold TF at 6am on 11/30 for possible SAT/SBT. 11/30: Patient mentation slightly better this am, still on predex and fentanyl gtt. However, easily arousable, following simple commands. Tolerated SBT trial for about 2hrs today then patient was placed back on a rate due to increased work of breathing and increased agitation. D/w [facility] seroquel increased to BID, plan to try SAT/SBT again the am. 12/01: CONY overnight. Patient mentation continue to improve. Tolerating SBT this am, possible extubation today if ABG is wnr. 12/02: Extubated yesterday, on 4L NC this SPO2 at 100%. Patient is awake following simple commands this am, however, she is confused. Spoke to patient's son, Kwame Salamanca. He was updated on patient's status. He reported that patient was very self sufficient prior to admit, with no neurological nor any psych issues that he knows of. All questions and concerns were voiced at this time. Will continue to monitor for now. D/w [facility] patient is stable for transfer to IMCU 12/03: Slight improvement in mentation this am, however still drowsy and disorientated. Will hold seroquel and Buspar for now. Patient is on ventimask this am, plan to wean O2 supplementation for SPO2 goal above 90%. Transfer order placed for IMCU 12/04: Mentation much better this am, remains on 4L NC. Hypertensive overnight, however per RN patient was NPO since NGT was accidently pulled out overnight. Patient passed bedside swallow this am. Will start patient on a soft diet. D/w [facility] patient is stable for transfer to Telemetry. 12/05: Patient still requiring 4 L O2 via nasal cannula. Continue BiPAP at bedtime. Patient reports that she is on home O2 of 3 L. Continue duo nebs, LABA and inhaled corticosteroids. Brovana and Pulmicort. Continue gabapentin for Neurontin. PT evaluation 12/06: Patient reportedly last evening approximately 7 PM had altered mentation with inappropriate speech. Patient now requiring restraints. Continue Haldol as needed. Check stat ABG. Repeat chest x-ray. Check CT scan of the head. Patient currently requiring 3 L nasal cannula. Patient currently requiring 3 L O2 via nasal cannula. 12/07: Patient remains very confused, agitated needing bilateral distal restraints. Needs placement, discussed with the case management. 12/08: Mental status unchanged, remains confused needing wrist restraints. According to son, she was functioning physically and mentally normal before this admission. Requested subacute rehab. Discussed with case management. Wean O2 as tolerated. 12/09 : Remains very confused and restless needing wrist restraints. Will obtain MRI. Start D5 half normal saline for Hypernatremia/dehydration. 12/10: Mental status remains unchanged. Patient remains very confused and restless needing bilateral wrist restraints. Mostly nonverbal. No acute respiratory distress, on 3 L, family reported that she was functioning well prior to this admission. CT in the MRI of the head showed no abnormality. Likely has ongoing dementia. Started on D5 half-normal saline for hypernatremia which could be contributing to altered mental status. Leukocytosis likely from a aspiration. History Interval history: Mental status remains unchanged. Patient remains very confused and restless needing bilateral wrist restraints. Mostly nonverbal. No acute respiratory distress, on 3 L, family reported that she was functioning well prior to this admission. CT in the MRI of the head showed no abnormality. Likely has ongoing dementia. Started on D5 half-normal saline for hypernatremia which could be contributing to altered mental status. Leukocytosis likely from a aspiration. Hospitalist Physical - Constitutional Vitals: Temp Pulse Resp BP Pulse Ox 97.8 F 72 18 153/66 98 12/10/21 16:26 12/10/21 16:26 12/10/21 16:26 12/10/21 16:26 12/10/21 16:26 General appearance: Present: no acute distress, obese, other (Very confused with the wrist restraints.) - EENT Eyes: Present: PERRL, EOM intact ENT: other (Dry oral mucosa) - Respiratory Respiratory effort: normal Respiratory: bilateral: diminished, rales, rhonchi, wheezing - Cardiovascular Rhythm: regular - Extremities Extremities: No edema - Abdominal General gastrointestinal: soft, non-tender, non-distended - Integumentary Integumentary: Absent: rash - Psychiatric Psychiatric: other (Anxious, confused and restless) - Neurologic Neurologic: other (Awake but confused. Moves all extremities well.) HEART Score - HEART Score Troponin: Troponin T < 0.010 ng/mL (0.00-0.029) 11/18/21 03:25 Results - Labs CBC & Chem 7: 12/09/21 06:23 12/09/21 06:23 Labs: Laboratory Last Values WBC 13.1 K/mm3 (4.5-11.0) H 12/09/21 06:23 RBC 6.18 M/mm3 (3.65-5.03) H 12/09/21 06:23 Hgb 16.3 gm/dl (10.1-14.3) H 12/09/21 06:23 Hct 53.7 % (30.3-42.9) H 12/09/21 06:23 MCV 87 fl (79-97) 12/09/21 06:23 MCH 26 pg (28-32) L 12/09/21 06:23 MCHC 30 % (30-34) 12/09/21 06:23 RDW 18.9 % (13.2-15.2) H 12/09/21 06:23 Plt Count 726 K/mm3 (140-440) H 12/09/21 06:23 Lymph % (Auto) 15.2 % (13.4-35.0) 12/09/21 06:23 [place] % (Auto) 7.1 % (0.0-7.3) 12/09/21 06:23 Eos % (Auto) 1.3 % (0.0-4.3) 12/09/21 06:23 Baso % (Auto) 0.9 % (0.0-1.8) 12/09/21 06:23 Lymph # (Auto) 2.0 K/mm3 (1.2-5.4) 12/09/21 06:23 [place] # (Auto) 0.9 K/mm3 (0.0-0.8) H 12/09/21 06:23 Eos # (Auto) 0.2 K/mm3 (0.0-0.4) 12/09/21 06:23 Baso # (Auto) 0.1 K/mm3 (0.0-0.1) 12/09/21 06:23 Add Manual Diff Complete 12/09/21 06:23 Total Counted 100 11/18/21 00:19 Seg Neutrophils % 75.5 % (40.0-70.0) H 12/09/21 06:23 Lymphocytes % (Manual) 4.0 % (13.4-35.0) L 11/18/21 00:19 Monocytes % (Manual) 2.0 % (0.0-7.3) 11/18/21 00:19 Nucleated RBC % Not Reportable 11/18/21 00:19 Seg Neutrophils # 9.9 K/mm3 (1.8-7.7) H 12/09/21 06:23 Seg Neutrophils # Man 14.7 K/mm3 (1.8-7.7) H 11/18/21 00:19 Band Neutrophils # 0.0 K/mm3 11/18/21 00:19 Lymphocytes # (Manual) 0.6 K/mm3 (1.2-5.4) L 11/18/21 00:19 Abs React Lymphs (Man) 0.0 K/mm3 11/18/21 00:19 Monocytes # (Manual) 0.3 K/mm3 (0.0-0.8) 11/18/21 00:19 Eosinophils # (Manual) 0.0 K/mm3 (0.0-0.4) 11/18/21 00:19 Basophils # (Manual) 0.0 K/mm3 (0.0-0.1) 11/18/21 00:19 Metamyelocytes # 0.0 K/mm3 11/18/21 00:19 Myelocytes # 0.0 K/mm3 11/18/21 00:19 Promyelocytes # 0.0 K/mm3 11/18/21 00:19 Blast Cells # 0.0 K/mm3 11/18/21 00:19 WBC Morphology Not Reportable 11/18/21 00:19 Hypersegmented Neuts Not Reportable 11/18/21 00:19 Hyposegmented Neuts Not Reportable 11/18/21 00:19 Hypogranular Neuts Not Reportable 11/18/21 00:19 Smudge Cells Not Reportable 11/18/21 00:19 Toxic Granulation Not Reportable 11/18/21 00:19 Toxic Vacuolation Not Reportable 11/18/21 00:19 Dohle Bodies Not Reportable 11/18/21 00:19 Pelger-Huet Anomaly Not Reportable 11/18/21 00:19 Luis Rods Not Reportable 11/18/21 00:19 Platelet Estimate Consistent w auto 11/18/21 00:19 Clumped Platelets Not Reportable 11/18/21 00:19 Plt Clumps, EDTA Not Reportable 11/18/21 00:19 Large Platelets Not Reportable 11/18/21 00:19 Giant Platelets Not Reportable 11/18/21 00:19 Platelet Satelliting Not Reportable 11/18/21 00:19 Plt Morphology Comment Not Reportable 11/18/21 00:19 RBC Morphology Not Reportable 11/18/21 00:19 Dimorphic RBCs Not Reportable 11/18/21 00:19 Polychromasia Not Reportable 11/18/21 00:19 Hypochromasia Not Reportable 11/18/21 00:19 Poikilocytosis Not Reportable 11/18/21 00:19 Anisocytosis 1+ 11/18/21 00:19 Microcytosis Not Reportable 11/18/21 00:19 Macrocytosis Few 11/18/21 00:19 Spherocytes Not Reportable 11/18/21 00:19 Pappenheimer Bodies Not Reportable 11/18/21 00:19 Sickle Cells Not Reportable 11/18/21 00:19 Target Cells Not Reportable 11/18/21 00:19 Tear Drop Cells Not Reportable 11/18/21 00:19 Ovalocytes Not Reportable 11/18/21 00:19 Helmet Cells Not Reportable 11/18/21 00:19 Connelly-[place] Bodies Not Reportable 11/18/21 00:19 Cavalier Rings Not Reportable 11/18/21 00:19 [place] Cells Not Reportable 11/18/21 00:19 Bite Cells Not Reportable 11/18/21 00:19 Crenated Cell Not Reportable 11/18/21 00:19 Elliptocytes Not Reportable 11/18/21 00:19 Acanthocytes (Spur) Not Reportable 11/18/21 00:19 Rouleaux Not Reportable 11/18/21 00:19 Hemoglobin C Crystals Not Reportable 11/18/21 00:19 Schistocytes Not Reportable 11/18/21 00:19 Malaria parasites Not Reportable 11/18/21 00:19 Shahriar Bodies Not Reportable 11/18/21 00:19 Hem Pathologist Commnt No 11/18/21 00:19 PT 12.9 Sec. (12.2-14.9) 11/18/21 00:19 INR 0.88 (0.87-1.13) 11/18/21 00:19 APTT 29.2 Sec. (24.2-36.6) 11/18/21 00:19 D-Dimer 464.80 ng/mlDDU (0-234) H 11/18/21 05:15 ABG pH 7.446 pH Units (7.350-7.450) 12/06/21 11:45 POC ABG pCO2 60.0 mmHg (32.0-48.0) H 11/30/21 12:04 ABG pCO2 40.3 mm Hg 12/06/21 11:45 POC ABG pO2 68.3 mmHg (83-108) L 11/30/21 12:04 ABG pO2 75.9 mm Hg (80.0-90.0) L 12/06/21 11:45 POC ABG HCO3 32.9 11/30/21 12:04 ABG HCO3 27.1 mmol/L (20.0-26.0) H 12/06/21 11:45 ABG O2 Saturation 95.9 % (95.0-99.0) 12/06/21 11:45 ABG O2 Content 20.5 (0.0-44) 12/06/21 11:45 POC ABG Base Excess 5.5 11/30/21 12:04 ABG Base Excess 2.9 mmol/L (-2.0-3.0) 12/06/21 11:45 ABG Hemoglobin 15.6 gm/dl (12.0-16.0) 12/06/21 11:45 ABG Oxyhemoglobin 90.9 (94-98) L 11/30/21 12:04 ABG Carboxyhemoglobin 1.7 % (0.0-5.0) 12/06/21 11:45 ABG Methemoglobin 0.5 % (0.0-1.5) 12/06/21 11:45 ABG Sodium 145.1 mmol/L (136.0-145.0) H 11/30/21 12:04 ABG Potassium 4.0 mmol/L (3.40-4.50) 11/30/21 12:04 ABG Chloride 102.0 mmol/L (98-107) 11/30/21 12:04 ABG Glucose 122 mg/dL (65-95) H 11/30/21 12:04 Oxyhemoglobin 93.7 % (95.0-99.0) L 12/06/21 11:45 Carboxyhemoglobin 1.2 (0.5-1.5) 11/30/21 12:04 FiO2 32 % 12/06/21 11:45 FiO2 % 40 11/30/21 12:04 Sodium 149 mmol/L (137-145) H D 12/09/21 06:23 Potassium 3.8 mmol/L (3.6-5.0) 12/09/21 06:23 Chloride 110.3 mmol/L (98-107) H 12/09/21 06:23 Carbon Dioxide 24 mmol/L (22-30) 12/09/21 06:23 Anion Gap 19 mmol/L 12/09/21 06:23 BUN 23 mg/dL (7-17) H 12/09/21 06:23 Creatinine 0.6 mg/dL (0.6-1.2) 12/09/21 06:23 Estimated GFR > 60 ml/min 12/09/21 06:23 BUN/Creatinine Ratio 38 % 12/09/21 06:23 Glucose 109 mg/dL (65-100) H 12/09/21 06:23 POC Glucose 116 mg/dL (70-105) H 12/10/21 16:38 Hemoglobin A1c 5.9 % (4-6) 11/19/21 07:59 Lactic Acid 1.40 mmol/L (0.7-2.0) 11/18/21 00:19 Calcium 9.6 mg/dL (8.4-10.2) 12/09/21 06:23 Phosphorus 3.80 mg/dL (2.5-4.5) 12/04/21 04:48 Magnesium 2.00 mg/dL (1.7-2.3) 12/04/21 04:48 Total Bilirubin 0.60 mg/dL (0.1-1.2) 12/09/21 06:23 Direct Bilirubin < 0.2 mg/dL (0-0.2) 11/18/21 00:19 Indirect Bilirubin 0.2 mg/dL 11/18/21 00:19 AST 47 units/L (5-40) H 12/09/21 06:23 ALT 40 units/L (7-56) 12/09/21 06:23 Alkaline Phosphatase 89 units/L (35-129) 12/09/21 06:23 Ammonia 54.0 umol/L (25-60) 11/18/21 00:19 Lactate Dehydrogenase 275 units/L (91-180) H 11/18/21 05:15 Troponin T < 0.010 ng/mL (0.00-0.029) 11/18/21 03:25 C-Reactive Protein 0.70 mg/dL (0.00-1.30) 11/18/21 15:47 NT-Pro-B Natriuret Pep 867.7 pg/mL (0-900) 11/18/21 00:19 Total Protein 7.2 g/dL (6.3-8.2) 12/09/21 06:23 Albumin 3.8 g/dL (3.9-5) L 12/09/21 06:23 Albumin/Globulin Ratio 1.1 % 12/09/21 06:23 Triglycerides 185 mg/dL (2-149) H 11/22/21 04:39 Lipase 13 units/L (13-60) 11/18/21 00:19 Procalcitonin 0.12 ng/mL (<0.15) 11/18/21 05:15 Arterial Blood Glucose 122 mg/dL (65-95) H 11/30/21 12:04 Arterial Blood Ionized Calcium 5.2 mg/dL (4.6-5.3) 11/29/21 03:51 Urine Color Yellow (Yellow) 11/23/21 12:24 Urine Turbidity Clear (Clear) 11/23/21 12:24 Urine pH 7.0 (5.0-7.0) 11/23/21 12:24 Ur Specific [place] 1.018 (1.003-1.030) 11/23/21 12:24 Urine Protein <15 mg/dl mg/dL (Negative) 11/23/21 12:24 Urine Glucose (UA) Neg mg/dL (Negative) 11/23/21 12:24 Urine Ketones Neg mg/dL (Negative) 11/23/21 12:24 Urine Blood Neg (Negative) 11/23/21 12:24 Urine Nitrite Neg (Negative) 11/23/21 12:24 Urine Bilirubin Neg (Negative) 11/23/21 12:24 Urine Urobilinogen 4.0 mg/dL (<2.0) 11/23/21 12:24 Ur Leukocyte Esterase Neg (Negative) 11/23/21 12:24 Urine WBC (Auto) 1.0 /HPF (0.0-6.0) 11/23/21 12:24 Urine RBC (Auto) 1.0 /HPF (0.0-6.0) 11/23/21 12:24 U Epithel Cells (Auto) 1.0 /HPF (0-13.0) 11/18/21 01:03 Hyaline Casts 3 /LPF 11/18/21 01:03 Urine Mucus Few /HPF 11/18/21 01:03 Salicylates < 0.3 mg/dL (2.8-20.0) L 11/18/21 00:19 Urine Opiates Screen Negative 11/18/21 01:03 Urine Methadone Screen Negative 11/18/21 01:03 Acetaminophen 5.0 ug/mL (10.0-30.0) L 11/18/21 00:19 Ur Barbiturates Screen Negative 11/18/21 01:03 Ur Phencyclidine Scrn Negative 11/18/21 01:03 Ur Amphetamines Screen Negative 11/18/21 01:03 U Benzodiazepines Scrn Negative 11/18/21 01:03 Urine Cocaine Screen Negative 11/18/21 01:03 U Marijuana (THC) Screen Negative 11/18/21 01:03 Drugs of Abuse Note Disclamer 11/18/21 01:03 Plasma/Serum Alcohol < 0.01 % (0-0.07) 11/18/21 00:19 Coronavirus (PCR) Negative (Negative) 11/18/21 Unknown Briggs/IV: Voiding Method Indwelling Catheter Active Medications - Current Medications Current Medications: Generic Name Dose Route Start Last Admin Trade Name Freq PRN Reason Stop Dose Admin Acetaminophen 650 mg 11/18/21 03:10 12/09/21 13:11 Acetaminophen 650 Mg Rect Supp ME 650 mg Q6H PRN Administration Pain MILD(1-3)/Fever >100.5/MONTIEL Albuterol 2.5 mg 12/03/21 12:16 12/07/21 15:45 Albuterol 2.5 Mg/3 Ml Nebu IH 2.5 mg Q4HRT PRN Administration Shortness Of Breath Amlodipine Besylate 10 mg 11/27/21 10:00 12/10/21 09:05 Amlodipine 10 Mg Tab PO 10 mg DAILY PAULINA Administration Arformoterol Tartrate 15 mcg 11/18/21 20:00 12/10/21 09:44 Arformoterol 15 Mcg/2 Ml Nebu IH Not Given Q12HRT PAULINA Aspirin 81 mg 11/27/21 10:00 12/10/21 09:03 Aspirin Ec 81 Mg Tab PO 81 mg QDAY PAULINA Administration Budesonide 0.5 mg 11/18/21 20:00 12/10/21 09:44 Budesonide 0.5 Mg/2 Ml Nebu IH Not Given Q12HRT [facility] Carvedilol 12.5 mg 11/25/21 13:00 12/10/21 09:04 Carvedilol 12.5 Mg Tab FEEDTUBE 12.5 mg BID PAULINA Administration Dextrose 50 ml 11/18/21 10:40 Dextrose 50% In Water (25gm) 50 Ml Syringe IV Q30MIN PRN Hypoglycemia Protocol Enoxaparin Sodium 40 mg 11/19/21 22:00 12/09/21 22:09 Enoxaparin 40 Mg/0.4 Ml Inj SUB-Q 40 mg QDAY@2200 PAULINA Administration Protocol Famotidine 20 mg 11/20/21 10:00 12/10/21 09:04 Famotidine 20 Mg Tab FEEDTUBE 20 mg BID PAULINA Administration Hydralazine HCl 10 mg 11/18/21 10:44 12/06/21 07:08 Hydralazine 20 Mg/1 Ml Inj IV 10 mg Q4HR PRN Administration Hypertension Hydrophilic Ointment 1 applic 11/18/21 15:26 Lip Therapy Vaseline TP Q2HR PRN Dry Lips Potassium Chloride 10 meq/ 1,005 mls @ 100 mls/hr 12/09/21 11:45 12/10/21 18:48 Dextrose IV 100 mls/hr DIRECT PAULINA Administration Insulin Human Lispro 0 unit 12/04/21 16:30 12/10/21 17:09 Insulin Lispro 100 Unit/Ml SUB-Q Not Given ACHS PAULINA Protocol Isosorbide Mononitrate 60 mg 12/04/21 15:00 12/10/21 09:05 Isosorbide Mononitrate Er 60 Mg Tab PO 60 mg QDAY PAULINA Administration Losartan Potassium 100 mg 12/05/21 10:00 12/10/21 09:05 Losartan 50 Mg Tab PO 100 mg QDAY PAULINA Administration Magnesium Hydroxide 30 ml 11/18/21 03:10 Magnesium Hydroxide (Mom) Oral Liqd Udc PO Q4H PRN Constipation Senna/Docusate Sodium 1 tab 11/18/21 22:00 12/10/21 09:04 Sennosides/Docusate Sodium 8.6/50 Mg Tab FEEDTUBE 1 tab BID PAULINA Administration Nutrition/Malnutrition Assess - Dietary Evaluation Nutrition/Malnutrition Findings: Nutrition Notes Start: 11/18/21 10:45 Freq: Status: Active Protocol: Document 12/08/21 16:46 LEONARDO (Rec: 12/08/21 16:56 LEONARDO [id number]) Nutrition Notes Initial or Follow up Brief Note Current Diet Pureed Diet (since D 12/06), D Suppl (since D 12/08).. Height 5 ft 8 in Weight 81.6 kg [place] Body Weight (kg) 63.63 BMI 27.3 Weight change and time frame No body weight change reported . Weight Status Overweight Subjective/Other Information RD consult for routine F/U on WAISTBAND [employer] LOCKSTITCH evaluation and TF tolerance or Dietary advancement. Diet advanced to PO. %PO intake of meals has been Neglible (<25%), according to ADL notes. Dietary Supplements recommended and ordered. Percent of energy/protein needs met: Prescribed Pureed Diet provides for energy/protein needs (1,804 Kcal/77 g) during LOS; additionally, Dietary Supplements will compensate for possible Poor PO intake of meals with 1,050 Kcal and 60 g of protein. Current % PO Negligible Minimum of two criteria No #1 Nutrition Diagnosis Inadequate oral intake Comments: Diet advanced to Po, but intake remains neglible. Diagnosis Progress(for reassessment Improved documentation) Nutrition Intervention Change Diet Order: Continue Pureed Diet. Add Supplement/Snack (indicate name/kcal 8 fl oz Ensure Enlive; TID. /protein ) Provides kCal: 1,050 Provides Protein (gm) 60 Goal #1 Compensate, through dietary supplementation, for possible poor or insufficient PO intake of meals during LOS. Follow-Up By: 12/15/21 Additional Comments Continue monitoring food tolerance, %PO intake of meals and ONS, and BM.
[2021-12-10] MEDS: ENOXAPARIN 40 MG/0.4 ML INJ SUB-Q SCH (22:22)
[2021-12-11] MEDS: ARFORMOTEROL 15 MCG/2 ML NEBU IH SCH ×2 (07:54→19:58)
[2021-12-11] MEDS: BUDESONIDE 0.5 MG/2 ML NEBU IH SCH ×2 (07:54→19:58)
[2021-12-11] MEDS: INSULIN LISPRO 100 UNIT/ML SUB-Q SCH ×4 (08:47→21:49)
[2021-12-11] MEDS: carvediloL 12.5 MG TAB FEEDTUBE SCH ×2 (09:10→21:43)
[2021-12-11] MEDS: amLODIPine 10 MG TAB PO SCH (09:10)
[2021-12-11] MEDS: LOSARTAN 50 MG TAB PO SCH (09:10)
[2021-12-11] MEDS: ASPIRIN EC 81 MG TAB PO SCH (09:10)
[2021-12-11] MEDS: FAMOTIDINE 20 MG TAB FEEDTUBE SCH ×2 (09:10→21:43)
[2021-12-11] MEDS: SENNOSIDES/DOCUSATE SODIUM 8.6/50 MG TAB FEEDTUBE SCH ×2 (09:10→21:43)
[2021-12-11 10:36] LABS: Basophils # (Auto) 0.1 K/mm3 (0.0-0.1); Basophils % (Auto) 0.9 % (0.0-1.8); Eosinophils # (Auto) 0.3 K/mm3 (0.0-0.4); Eosinophils % (Auto) 2.3 % (0.0-4.3); Lymphocytes # (Auto) 1.8 K/mm3 (1.2-5.4); Lymphocytes % (Auto) 15.2 % (13.4-35.0); Mean Corpuscular HGB Conc 31 % (30-34); Mean Corpuscular Volume 85 fl (79-97); Monocytes # (Auto) 0.8 K/mm3 (0.0-0.8); Monocytes % (Auto) 6.8 % (0.0-7.3); Platelet Count 632 K/mm3 (140-440); Red Blood Count 5.61 M/mm3 (3.65-5.03); Red Cell Distribution Width 18.2 % (13.2-15.2)
[2021-12-11 10:38] LABS: Hematocrit 47.9 % (30.3-42.9); Hemoglobin 14.8 gm/dl (10.1-14.3)
[2021-12-11] MEDS: hydrALAZINE 20 MG/1 ML INJ IV PRN ×2 (10:47→16:56)
[2021-12-11 11:01] LABS: Alanine Aminotransferase 39 units/L (7-56); Albumin 3.6 g/dL (3.9-5); Blood Urea Nitrogen 10 mg/dL (7-17); Calcium 9.7 mg/dL (8.4-10.2); Hemolysis Index 6
[2021-12-11 11:11] LABS: BUN/Creatinine Ratio 20
--- NOTE | 2021-12-11 15:11 | Progress Note ---
Assessment and Plan Acute exacerbation of chronic obstructive lung disease Acute hypoxemic respiratory failure Acute congestive heart failure exacerbation (? Flash Pulmonary edema) Community-acquired pneumonia Leukocytosis History of coronary artery disease Gastroesophageal reflux disease Arthritis Hyperlipidemia Obesity Elevated D-dimers Acute toxic metabolic encephalopathy Urinary tract infection Likely pulmonary hypertension Hypertensive emergency - will get TSH level (patient was on methemazole at home) - consider Psych consultation - continue BIPAP scheduled qhs - continue care as below otherwise; - wean supplemental oxygen for target O2 sat's > 90% acutely - continue aspiration precautions - bronchodilators (LIZZY & LABA) with pulmonary hygiene per RT - continue Pulmicort re: COPD - avoid nephrotoxins, renally dose all medications - continue accuchecks with glycemic control per SSI for target blood glucose of < 180 mg/dL; avoid hypoglycemia - continue to avoid benzodiazepine's, reduce the possibility of delirium - completed AB's course - prn analgesia per pain score - Maintenance of sleep-wake cycle, avoid delirium - continue enteral nutritional support at goal rate as tolerated - G.I. & VTE prophylaxis - PT/OT/ROM exercises - continue mobility protocols for pressure ulcer prophylaxis - Monitor hemodynamics closely - continue other care per attending / other consultants - discharge planning ongoing concurrently COVID SPECIFIC INTERVENTIONS: - COVID-19 test negative .... Re-evaluate in am & prn Subjective Date of service: 12/11/21 Principal diagnosis: AE-COPD; AHRF; CHF (? new onset); CAP; CAD; Obesity; HTNsive Emergency Interval history: Patient is seen today for: AE-COPD; Acute hypoxemic respiratory failure; CHF (? new onset); CAP; CAD; Obesity; HTNsive Emergency Seen and examined at bedside; 24hour events reviewed; nursing and respiratory care staff consulted; no adverse overnight events reported to me; resting peacefully in bed; remains confused / delirious; no N/V/F/C Objective Vital Signs - 12hr 12/11/21 12/11/21 12/11/21 03:41 07:47 07:54 Temperature 98.3 F 98.7 F Pulse Rate 71 75 Pulse Rate [ Anterior Bilateral Throughout] Pulse Rate [ From Monitor] Respiratory 18 18 Rate Respiratory Rate [Anterior Bilateral Throughout] Blood Pressure 152/97 183/147 Blood Pressure [Left] O2 Sat by Pulse 92 93 99 Oximetry 12/11/21 12/11/21 12/11/21 07:55 08:46 10:00 Temperature Pulse Rate 89 Pulse Rate [ 72 Anterior Bilateral Throughout] Pulse Rate [ 79 From Monitor] Respiratory 17 20 Rate Respiratory 18 Rate [Anterior Bilateral Throughout] Blood Pressure Blood Pressure 158/79 [Left] O2 Sat by Pulse 95 97 Oximetry 12/11/21 10:49 Temperature 98.2 F Pulse Rate 67 Pulse Rate [ Anterior Bilateral Throughout] Pulse Rate [ From Monitor] Respiratory 20 Rate Respiratory Rate [Anterior Bilateral Throughout] Blood Pressure Blood Pressure 176/85 [Left] O2 Sat by Pulse 95 Oximetry Constitutional: no acute distress, other (elderly obese female with mildly incr eased respiratory effort at rest ) Eyes: non-icteric ENT: oropharynx moist Neck: supple, no lymphadenopathy, no JVD, other (large circumference) Effort: mildly labored Ascultation: Bilateral: diminished breath sounds, rhonchi (scant bases) Percussion: Bilateral: not dull Cardiovascular: regular rate and rhythm Gastrointestinal: normoactive bowel sounds, soft, non-tender, non-distended (protuberant) Integumentary: normal Extremities: no cyanosis, no edema, pulses normal, no ischemia or petechiae Neurologic: non-focal exam (grossly), pupils equal and round, CN II-XII normal Psychiatric: other (mild delirium) CBC and BMP: 12/11/21 09:25 12/11/21 09:25 ABG, PT/INR, D-dimer: ABG ABG pH 7.446 pH Units (7.350-7.450) 12/06/21 11:45 POC ABG pCO2 60.0 mmHg (32.0-48.0) H 11/30/21 12:04 ABG pCO2 40.3 mm Hg 12/06/21 11:45 POC ABG pO2 68.3 mmHg (83-108) L 11/30/21 12:04 ABG pO2 75.9 mm Hg (80.0-90.0) L 12/06/21 11:45 POC ABG HCO3 32.9 11/30/21 12:04 ABG O2 Saturation 95.9 % (95.0-99.0) 12/06/21 11:45 PT/INR, D-dimer PT 12.9 Sec. (12.2-14.9) 11/18/21 00:19 INR 0.88 (0.87-1.13) 11/18/21 00:19 D-Dimer 464.80 ng/mlDDU (0-234) H 11/18/21 05:15 Abnormal lab findings: Abnormal Labs 11/18/21 11/18/21 11/18/21 00:01 00:19 00:19 WBC 15.6 H RBC 5.59 H Hgb 14.8 H Hct 49.8 H MCH 27 L MCHC RDW 16.9 H Plt Count Lymph % (Auto) [place] % (Auto) Lymph # (Auto) [place] # (Auto) Seg Neutrophils % Lymphocytes % (Manual) 4.0 L Seg Neutrophils # Seg Neutrophils # Man 14.7 H Lymphocytes # (Manual) 0.6 L D-Dimer ABG pH POC ABG pCO2 POC ABG pO2 ABG pO2 ABG HCO3 ABG O2 Saturation ABG Base Excess ABG Hemoglobin ABG Oxyhemoglobin ABG Sodium ABG Glucose Oxyhemoglobin Carboxyhemoglobin Sodium Potassium Chloride Carbon Dioxide BUN Creatinine Glucose 148 H POC Glucose 151 H Calcium Phosphorus Magnesium AST Lactate Dehydrogenase Albumin Triglycerides Arterial Blood Glucose Arterial Blood Ionized Calcium Urine WBC (Auto) Salicylates Acetaminophen 11/18/21 11/18/21 11/18/21 00:19 00:19 00:19 WBC RBC Hgb Hct MCH MCHC RDW Plt Count Lymph % (Auto) [place] % (Auto) Lymph # (Auto) [place] # (Auto) Seg Neutrophils % Lymphocytes % (Manual) Seg Neutrophils # Seg Neutrophils # Man Lymphocytes # (Manual) D-Dimer ABG pH POC ABG pCO2 POC ABG pO2 ABG pO2 ABG HCO3 ABG O2 Saturation ABG Base Excess ABG Hemoglobin ABG Oxyhemoglobin ABG Sodium ABG Glucose Oxyhemoglobin Carboxyhemoglobin Sodium Potassium Chloride Carbon Dioxide BUN Creatinine Glucose POC Glucose Calcium Phosphorus Magnesium 2.50 H AST Lactate Dehydrogenase Albumin Triglycerides Arterial Blood Glucose Arterial Blood Ionized Calcium Urine WBC (Auto) Salicylates < 0.3 L Acetaminophen 5.0 L 11/18/21 11/18/21 11/18/21 01:03 02:00 05:15 WBC RBC Hgb Hct MCH MCHC RDW Plt Count Lymph % (Auto) [place] % (Auto) Lymph # (Auto) [place] # (Auto) Seg Neutrophils % Lymphocytes % (Manual) Seg Neutrophils # Seg Neutrophils # Man Lymphocytes # (Manual) D-Dimer 464.80 H ABG pH POC ABG pCO2 POC ABG pO2 ABG pO2 ABG HCO3 35.8 H ABG O2 Saturation ABG Base Excess 7.8 H ABG Hemoglobin ABG Oxyhemoglobin ABG Sodium ABG Glucose Oxyhemoglobin 91.9 L Carboxyhemoglobin Sodium Potassium Chloride Carbon Dioxide BUN Creatinine Glucose POC Glucose Calcium Phosphorus Magnesium AST Lactate Dehydrogenase Albumin Triglycerides Arterial Blood Glucose Arterial Blood Ionized Calcium Urine WBC (Auto) 16.0 H Salicylates Acetaminophen 11/18/21 11/18/21 11/18/21 05:15 15:47 15:47 WBC 13.5 H RBC 5.60 H Hgb 14.9 H Hct 49.1 H MCH 27 L MCHC RDW 17.3 H Plt Count Lymph % (Auto) 7.9 L [place] % (Auto) 10.1 H Lymph # (Auto) 1.1 L [place] # (Auto) 1.4 H Seg Neutrophils % 81.7 H Lymphocytes % (Manual) Seg Neutrophils # 11.0 H Seg Neutrophils # Man Lymphocytes # (Manual) D-Dimer ABG pH POC ABG pCO2 POC ABG pO2 ABG pO2 ABG HCO3 ABG O2 Saturation ABG Base Excess ABG Hemoglobin ABG Oxyhemoglobin ABG Sodium ABG Glucose Oxyhemoglobin Carboxyhemoglobin Sodium Potassium Chloride Carbon Dioxide BUN Creatinine Glucose 138 H POC Glucose Calcium Phosphorus Magnesium AST Lactate Dehydrogenase 275 H Albumin Triglycerides Arterial Blood Glucose Arterial Blood Ionized Calcium Urine WBC (Auto) Salicylates Acetaminophen 11/18/21 11/18/21 11/19/21 18:45 23:33 04:58 WBC RBC Hgb Hct MCH MCHC RDW Plt Count Lymph % (Auto) [place] % (Auto) Lymph # (Auto) [place] # (Auto) Seg Neutrophils % Lymphocytes % (Manual) Seg Neutrophils # Seg Neutrophils # Man Lymphocytes # (Manual) D-Dimer ABG pH POC ABG pCO2 POC ABG pO2 ABG pO2 ABG HCO3 ABG O2 Saturation ABG Base Excess ABG Hemoglobin ABG Oxyhemoglobin ABG Sodium ABG Glucose Oxyhemoglobin Carboxyhemoglobin Sodium Potassium Chloride Carbon Dioxide BUN Creatinine Glucose 130 H POC Glucose 132 H 113 H Calcium Phosphorus Magnesium AST Lactate Dehydrogenase Albumin Triglycerides Arterial Blood Glucose Arterial Blood Ionized Calcium Urine WBC (Auto) Salicylates Acetaminophen 11/19/21 11/19/21 11/19/21 07:59 07:59 08:55 WBC 12.7 H RBC 5.29 H Hgb Hct 45.5 H MCH 26 L MCHC RDW 17.4 H Plt Count Lymph % (Auto) 12.3 L [place] % (Auto) 9.6 H Lymph # (Auto) [place] # (Auto) 1.2 H Seg Neutrophils % 76.9 H Lymphocytes % (Manual) Seg Neutrophils # 9.7 H Seg Neutrophils # Man Lymphocytes # (Manual) D-Dimer ABG pH 7.518 H POC ABG pCO2 POC ABG pO2 ABG pO2 77.6 L ABG HCO3 30.1 H ABG O2 Saturation ABG Base Excess 6.9 H ABG Hemoglobin ABG Oxyhemoglobin ABG Sodium ABG Glucose Oxyhemoglobin Carboxyhemoglobin Sodium Potassium 3.1 L D Chloride Carbon Dioxide BUN Creatinine Glucose 115 H POC Glucose Calcium 8.1 L Phosphorus Magnesium AST Lactate Dehydrogenase Albumin Triglycerides Arterial Blood Glucose Arterial Blood Ionized Calcium Urine WBC (Auto) Salicylates Acetaminophen 11/19/21 11/19/21 11/20/21 11:33 16:22 04:20 WBC 13.9 H RBC 5.44 H Hgb Hct 49.3 H MCH 26 L MCHC 29 L RDW 18.3 H Plt Count Lymph % (Auto) [place] % (Auto) Lymph # (Auto) [place] # (Auto) Seg Neutrophils % Lymphocytes % (Manual) Seg Neutrophils # Seg Neutrophils # Man Lymphocytes # (Manual) D-Dimer ABG pH POC ABG pCO2 POC ABG pO2 ABG pO2 ABG HCO3 ABG O2 Saturation ABG Base Excess ABG Hemoglobin ABG Oxyhemoglobin ABG Sodium ABG Glucose Oxyhemoglobin Carboxyhemoglobin Sodium Potassium Chloride Carbon Dioxide BUN Creatinine Glucose POC Glucose 119 H 112 H Calcium Phosphorus Magnesium AST Lactate Dehydrogenase Albumin Triglycerides Arterial Blood Glucose Arterial Blood Ionized Calcium Urine WBC (Auto) Salicylates Acetaminophen 11/20/21 11/20/21 11/20/21 04:20 11:07 12:02 WBC RBC Hgb Hct MCH MCHC RDW Plt Count Lymph % (Auto) [place] % (Auto) Lymph # (Auto) [place] # (Auto) Seg Neutrophils % Lymphocytes % (Manual) Seg Neutrophils # Seg Neutrophils # Man Lymphocytes # (Manual) D-Dimer ABG pH 7.251 L POC ABG pCO2 POC ABG pO2 ABG pO2 66.3 L ABG HCO3 30.2 H ABG O2 Saturation 91.8 L ABG Base Excess ABG Hemoglobin ABG Oxyhemoglobin ABG Sodium ABG Glucose Oxyhemoglobin 89.4 L Carboxyhemoglobin Sodium 147 H Potassium Chloride Carbon Dioxide BUN 25 H Creatinine Glucose POC Glucose 118 H Calcium Phosphorus 6.40 H Magnesium AST Lactate Dehydrogenase Albumin Triglycerides Arterial Blood Glucose Arterial Blood Ionized Calcium Urine WBC (Auto) Salicylates Acetaminophen 11/20/21 11/21/21 11/21/21 17:31 00:07 04:44 WBC 14.0 H RBC 5.08 H Hgb Hct 44.7 H MCH 26 L MCHC 29 L RDW 17.8 H Plt Count Lymph % (Auto) [place] % (Auto) Lymph # (Auto) [place] # (Auto) Seg Neutrophils % Lymphocytes % (Manual) Seg Neutrophils # Seg Neutrophils # Man Lymphocytes # (Manual) D-Dimer ABG pH POC ABG pCO2 POC ABG pO2 ABG pO2 ABG HCO3 ABG O2 Saturation ABG Base Excess ABG Hemoglobin ABG Oxyhemoglobin ABG Sodium ABG Glucose Oxyhemoglobin Carboxyhemoglobin Sodium Potassium Chloride Carbon Dioxide BUN Creatinine Glucose POC Glucose 139 H 147 H Calcium Phosphorus Magnesium AST Lactate Dehydrogenase Albumin Triglycerides Arterial Blood Glucose Arterial Blood Ionized Calcium Urine WBC (Auto) Salicylates Acetaminophen 11/21/21 11/21/21 11/21/21 04:44 06:06 11:45 WBC RBC Hgb Hct MCH MCHC RDW Plt Count Lymph % (Auto) [place] % (Auto) Lymph # (Auto) [place] # (Auto) Seg Neutrophils % Lymphocytes % (Manual) Seg Neutrophils # Seg Neutrophils # Man Lymphocytes # (Manual) D-Dimer ABG pH POC ABG pCO2 POC ABG pO2 ABG pO2 ABG HCO3 ABG O2 Saturation ABG Base Excess ABG Hemoglobin ABG Oxyhemoglobin ABG Sodium ABG Glucose Oxyhemoglobin Carboxyhemoglobin Sodium Potassium Chloride Carbon Dioxide BUN 20 H Creatinine Glucose 157 H POC Glucose 158 H 119 H Calcium Phosphorus Magnesium AST Lactate Dehydrogenase Albumin Triglycerides Arterial Blood Glucose Arterial Blood Ionized Calcium Urine WBC (Auto) Salicylates Acetaminophen 11/21/21 11/21/21 11/22/21 11:50 16:54 00:03 WBC RBC Hgb Hct MCH MCHC RDW Plt Count Lymph % (Auto) [place] % (Auto) Lymph # (Auto) [place] # (Auto) Seg Neutrophils % Lymphocytes % (Manual) Seg Neutrophils # Seg Neutrophils # Man Lymphocytes # (Manual) D-Dimer ABG pH POC ABG pCO2 POC ABG pO2 ABG pO2 61.8 L ABG HCO3 35.2 H ABG O2 Saturation 92.8 L ABG Base Excess 8.1 H ABG Hemoglobin ABG Oxyhemoglobin ABG Sodium ABG Glucose Oxyhemoglobin 90.6 L Carboxyhemoglobin Sodium Potassium Chloride Carbon Dioxide BUN Creatinine Glucose POC Glucose 149 H 133 H Calcium Phosphorus Magnesium AST Lactate Dehydrogenase Albumin Triglycerides Arterial Blood Glucose Arterial Blood Ionized Calcium Urine WBC (Auto) Salicylates Acetaminophen 11/22/21 11/22/21 11/22/21 04:39 04:39 04:39 WBC 14.1 H RBC Hgb Hct 43.4 H MCH 26 L MCHC RDW 17.9 H Plt Count Lymph % (Auto) [place] % (Auto) Lymph # (Auto) [place] # (Auto) Seg Neutrophils % Lymphocytes % (Manual) Seg Neutrophils # Seg Neutrophils # Man Lymphocytes # (Manual) D-Dimer ABG pH POC ABG pCO2 POC ABG pO2 ABG pO2 ABG HCO3 ABG O2 Saturation ABG Base Excess ABG Hemoglobin ABG Oxyhemoglobin ABG Sodium ABG Glucose Oxyhemoglobin Carboxyhemoglobin Sodium Potassium Chloride Carbon Dioxide 33 H BUN Creatinine Glucose 152 H POC Glucose Calcium Phosphorus Magnesium AST Lactate Dehydrogenase Albumin Triglycerides 185 H Arterial Blood Glucose Arterial Blood Ionized Calcium Urine WBC (Auto) Salicylates Acetaminophen 11/22/21 11/22/21 11/22/21 05:02 10:56 11:31 WBC RBC Hgb Hct MCH MCHC RDW Plt Count Lymph % (Auto) [place] % (Auto) Lymph # (Auto) [place] # (Auto) Seg Neutrophils % Lymphocytes % (Manual) Seg Neutrophils # Seg Neutrophils # Man Lymphocytes # (Manual) D-Dimer ABG pH POC ABG pCO2 POC ABG pO2 ABG pO2 55.3 L ABG HCO3 39.4 H ABG O2 Saturation 89.5 L ABG Base Excess 11.7 H ABG Hemoglobin ABG Oxyhemoglobin ABG Sodium ABG Glucose Oxyhemoglobin 87.2 L Carboxyhemoglobin Sodium Potassium Chloride Carbon Dioxide BUN Creatinine Glucose POC Glucose 158 H 116 H Calcium Phosphorus Magnesium AST Lactate Dehydrogenase Albumin Triglycerides Arterial Blood Glucose Arterial Blood Ionized Calcium Urine WBC (Auto) Salicylates Acetaminophen 11/22/21 11/22/21 11/23/21 17:29 23:22 04:49 WBC 13.6 H RBC 5.18 H Hgb Hct 45.6 H MCH 25 L MCHC 29 L RDW 17.5 H Plt Count Lymph % (Auto) [place] % (Auto) Lymph # (Auto) [place] # (Auto) Seg Neutrophils % Lymphocytes % (Manual) Seg Neutrophils # Seg Neutrophils # Man Lymphocytes # (Manual) D-Dimer ABG pH POC ABG pCO2 POC ABG pO2 ABG pO2 ABG HCO3 ABG O2 Saturation ABG Base Excess ABG Hemoglobin ABG Oxyhemoglobin ABG Sodium ABG Glucose Oxyhemoglobin Carboxyhemoglobin Sodium Potassium Chloride Carbon Dioxide BUN Creatinine Glucose POC Glucose 129 H 171 H Calcium Phosphorus Magnesium AST Lactate Dehydrogenase Albumin Triglycerides Arterial Blood Glucose Arterial Blood Ionized Calcium Urine WBC (Auto) Salicylates Acetaminophen 11/23/21 11/23/21 11/23/21 04:49 11:53 16:22 WBC RBC Hgb Hct MCH MCHC RDW Plt Count Lymph % (Auto) [place] % (Auto) Lymph # (Auto) [place] # (Auto) Seg Neutrophils % Lymphocytes % (Manual) Seg Neutrophils # Seg Neutrophils # Man Lymphocytes # (Manual) D-Dimer ABG pH POC ABG pCO2 POC ABG pO2 ABG pO2 61.8 L ABG HCO3 40.9 H ABG O2 Saturation 93.4 L ABG Base Excess 14.6 H ABG Hemoglobin 6.9 L ABG Oxyhemoglobin ABG Sodium ABG Glucose Oxyhemoglobin 90.2 L Carboxyhemoglobin Sodium 146 H Potassium Chloride Carbon Dioxide 36 H BUN 21 H Creatinine Glucose 155 H POC Glucose 166 H Calcium Phosphorus Magnesium AST Lactate Dehydrogenase Albumin Triglycerides Arterial Blood Glucose Arterial Blood Ionized Calcium Urine WBC (Auto) Salicylates Acetaminophen 11/23/21 11/23/21 11/24/21 17:11 23:07 05:03 WBC RBC Hgb Hct MCH MCHC RDW Plt Count Lymph % (Auto) [place] % (Auto) Lymph # (Auto) [place] # (Auto) Seg Neutrophils % Lymphocytes % (Manual) Seg Neutrophils # Seg Neutrophils # Man Lymphocytes # (Manual) D-Dimer ABG pH POC ABG pCO2 POC ABG pO2 ABG pO2 ABG HCO3 ABG O2 Saturation ABG Base Excess ABG Hemoglobin ABG Oxyhemoglobin ABG Sodium ABG Glucose Oxyhemoglobin Carboxyhemoglobin Sodium Potassium Chloride Carbon Dioxide BUN Creatinine Glucose POC Glucose 142 H 197 H 183 H Calcium Phosphorus Magnesium AST Lactate Dehydrogenase Albumin Triglycerides Arterial Blood Glucose Arterial Blood Ionized Calcium Urine WBC (Auto) Salicylates Acetaminophen 11/24/21 11/24/21 11/24/21 08:33 08:33 09:00 WBC RBC Hgb Hct 43.6 H MCH 26 L MCHC RDW 18.0 H Plt Count Lymph % (Auto) [place] % (Auto) Lymph # (Auto) [place] # (Auto) Seg Neutrophils % Lymphocytes % (Manual) Seg Neutrophils # Seg Neutrophils # Man Lymphocytes # (Manual) D-Dimer ABG pH POC ABG pCO2 POC ABG pO2 ABG pO2 69.1 L ABG HCO3 40.1 H ABG O2 Saturation 93.2 L ABG Base Excess 11.9 H ABG Hemoglobin ABG Oxyhemoglobin ABG Sodium ABG Glucose Oxyhemoglobin 90.3 L Carboxyhemoglobin Sodium Potassium 5.3 H D Chloride Carbon Dioxide 36 H BUN 25 H Creatinine 0.5 L Glucose 185 H POC Glucose Calcium Phosphorus Magnesium AST Lactate Dehydrogenase Albumin Triglycerides Arterial Blood Glucose Arterial Blood Ionized Calcium Urine WBC (Auto) Salicylates Acetaminophen 11/24/21 11/24/21 11/25/21 12:00 18:08 00:50 WBC RBC Hgb Hct MCH MCHC RDW Plt Count Lymph % (Auto) [place] % (Auto) Lymph # (Auto) [place] # (Auto) Seg Neutrophils % Lymphocytes % (Manual) Seg Neutrophils # Seg Neutrophils # Man Lymphocytes # (Manual) D-Dimer ABG pH POC ABG pCO2 POC ABG pO2 ABG pO2 67.3 L ABG HCO3 41.6 H 42.7 H ABG O2 Saturation 94.5 L ABG Base Excess 12.3 H 14.7 H ABG Hemoglobin ABG Oxyhemoglobin ABG Sodium ABG Glucose Oxyhemoglobin 93.1 L 91.6 L Carboxyhemoglobin Sodium Potassium Chloride Carbon Dioxide BUN Creatinine Glucose POC Glucose 168 H Calcium Phosphorus Magnesium AST Lactate Dehydrogenase Albumin Triglycerides Arterial Blood Glucose Arterial Blood Ionized Calcium Urine WBC (Auto) Salicylates Acetaminophen 11/25/21 11/25/21 11/25/21 04:57 04:57 14:18 WBC RBC 5.13 H Hgb Hct 45.1 H MCH 26 L MCHC RDW 17.7 H Plt Count Lymph % (Auto) [place] % (Auto) Lymph # (Auto) [place] # (Auto) Seg Neutrophils % Lymphocytes % (Manual) Seg Neutrophils # Seg Neutrophils # Man Lymphocytes # (Manual) D-Dimer ABG pH POC ABG pCO2 POC ABG pO2 ABG pO2 65.1 L ABG HCO3 41.7 H ABG O2 Saturation 94.2 L ABG Base Excess 13.4 H ABG Hemoglobin ABG Oxyhemoglobin ABG Sodium ABG Glucose Oxyhemoglobin 91.3 L Carboxyhemoglobin Sodium 146 H Potassium Chloride Carbon Dioxide 38 H BUN 26 H Creatinine 0.5 L Glucose 210 H POC Glucose Calcium Phosphorus Magnesium AST Lactate Dehydrogenase Albumin Triglycerides Arterial Blood Glucose Arterial Blood Ionized Calcium Urine WBC (Auto) Salicylates Acetaminophen 11/25/21 11/26/21 11/26/21 19:22 04:28 04:28 WBC RBC 5.05 H Hgb Hct 44.0 H MCH 26 L MCHC RDW 17.6 H Plt Count Lymph % (Auto) [place] % (Auto) Lymph # (Auto) [place] # (Auto) Seg Neutrophils % Lymphocytes % (Manual) Seg Neutrophils # Seg Neutrophils # Man Lymphocytes # (Manual) D-Dimer ABG pH POC ABG pCO2 POC ABG pO2 ABG pO2 ABG HCO3 ABG O2 Saturation ABG Base Excess ABG Hemoglobin ABG Oxyhemoglobin ABG Sodium ABG Glucose Oxyhemoglobin Carboxyhemoglobin Sodium 146 H Potassium Chloride Carbon Dioxide 38 H BUN 30 H Creatinine Glucose 124 H POC Glucose 151 H Calcium 10.5 H Phosphorus Magnesium AST Lactate Dehydrogenase Albumin Triglycerides Arterial Blood Glucose Arterial Blood Ionized Calcium Urine WBC (Auto) Salicylates Acetaminophen 11/26/21 11/26/21 11/27/21 05:50 10:28 08:31 WBC 12.4 H RBC 5.62 H Hgb 14.6 H Hct 48.7 H MCH 26 L MCHC RDW 17.9 H Plt Count 469 H Lymph % (Auto) [place] % (Auto) Lymph # (Auto) [place] # (Auto) Seg Neutrophils % Lymphocytes % (Manual) Seg Neutrophils # Seg Neutrophils # Man Lymphocytes # (Manual) D-Dimer ABG pH POC ABG pCO2 POC ABG pO2 ABG pO2 66.5 L ABG HCO3 39.6 H ABG O2 Saturation 92.9 L ABG Base Excess 11.4 H ABG Hemoglobin 16.8 H ABG Oxyhemoglobin ABG Sodium ABG Glucose Oxyhemoglobin 90.3 L Carboxyhemoglobin Sodium Potassium Chloride Carbon Dioxide BUN Creatinine Glucose POC Glucose 121 H Calcium Phosphorus Magnesium AST Lactate Dehydrogenase Albumin Triglycerides Arterial Blood Glucose Arterial Blood Ionized Calcium Urine WBC (Auto) Salicylates Acetaminophen 01/01/22 01/01/22 01/01/22 08:31 09:46 11:49 WBC RBC Hgb Hct MCH MCHC RDW Plt Count Lymph % (Auto) [place] % (Auto) Lymph # (Auto) [place] # (Auto) Seg Neutrophils % Lymphocytes % (Manual) Seg Neutrophils # Seg Neutrophils # Man Lymphocytes # (Manual) D-Dimer ABG pH POC ABG pCO2 POC ABG pO2 ABG pO2 ABG HCO3 ABG O2 Saturation ABG Base Excess ABG Hemoglobin ABG Oxyhemoglobin ABG Sodium ABG Glucose Oxyhemoglobin Carboxyhemoglobin Sodium 150 H Potassium Chloride Carbon Dioxide 33 H BUN 31 H Creatinine Glucose 135 H POC Glucose 140 H 153 H Calcium 11.0 H Phosphorus Magnesium AST Lactate Dehydrogenase Albumin Triglycerides Arterial Blood Glucose Arterial Blood Ionized Calcium Urine WBC (Auto) Salicylates Acetaminophen 11/27/21 11/27/21 11/27/21 14:16 17:14 23:25 WBC RBC Hgb Hct MCH MCHC RDW Plt Count Lymph % (Auto) [place] % (Auto) Lymph # (Auto) [place] # (Auto) Seg Neutrophils % Lymphocytes % (Manual) Seg Neutrophils # Seg Neutrophils # Man Lymphocytes # (Manual) D-Dimer ABG pH 7.485 H POC ABG pCO2 48.7 H POC ABG pO2 74.5 L ABG pO2 ABG HCO3 ABG O2 Saturation ABG Base Excess ABG Hemoglobin ABG Oxyhemoglobin ABG Sodium 145.5 H ABG Glucose 153 H Oxyhemoglobin Carboxyhemoglobin 1.6 H Sodium Potassium Chloride Carbon Dioxide BUN Creatinine Glucose POC Glucose 142 H 123 H Calcium Phosphorus Magnesium AST Lactate Dehydrogenase Albumin Triglycerides Arterial Blood Glucose 153 H Arterial Blood Ionized Calcium 5.4 H Urine WBC (Auto) Salicylates Acetaminophen 11/28/21 11/28/21 11/28/21 03:38 03:38 05:16 WBC RBC 5.05 H Hgb Hct 43.6 H MCH 26 L MCHC RDW 17.8 H Plt Count Lymph % (Auto) [place] % (Auto) Lymph # (Auto) [place] # (Auto) Seg Neutrophils % Lymphocytes % (Manual) Seg Neutrophils # Seg Neutrophils # Man Lymphocytes # (Manual) D-Dimer ABG pH POC ABG pCO2 POC ABG pO2 ABG pO2 ABG HCO3 ABG O2 Saturation ABG Base Excess ABG Hemoglobin ABG Oxyhemoglobin ABG Sodium ABG Glucose Oxyhemoglobin Carboxyhemoglobin Sodium 150 H Potassium Chloride Carbon Dioxide 32 H BUN 51 H Creatinine Glucose 143 H POC Glucose 138 H Calcium 10.5 H Phosphorus Magnesium AST Lactate Dehydrogenase Albumin Triglycerides Arterial Blood Glucose Arterial Blood Ionized Calcium Urine WBC (Auto) Salicylates Acetaminophen 11/28/21 11/28/21 11/29/21 17:01 23:51 03:51 WBC RBC Hgb Hct MCH MCHC RDW Plt Count Lymph % (Auto) [place] % (Auto) Lymph # (Auto) [place] # (Auto) Seg Neutrophils % Lymphocytes % (Manual) Seg Neutrophils # Seg Neutrophils # Man Lymphocytes # (Manual) D-Dimer ABG pH POC ABG pCO2 54.1 H POC ABG pO2 70.6 L ABG pO2 ABG HCO3 ABG O2 Saturation ABG Base Excess ABG Hemoglobin ABG Oxyhemoglobin 93.1 L ABG Sodium ABG Glucose 144 H Oxyhemoglobin Carboxyhemoglobin Sodium Potassium Chloride Carbon Dioxide BUN Creatinine Glucose POC Glucose 145 H 130 H Calcium Phosphorus Magnesium AST Lactate Dehydrogenase Albumin Triglycerides Arterial Blood Glucose 144 H Arterial Blood Ionized Calcium Urine WBC (Auto) Salicylates Acetaminophen 11/29/21 11/29/21 11/29/21 05:51 05:51 12:09 WBC 11.1 H RBC Hgb Hct MCH 26 L MCHC RDW 17.8 H Plt Count Lymph % (Auto) [place] % (Auto) Lymph # (Auto) [place] # (Auto) Seg Neutrophils % Lymphocytes % (Manual) Seg Neutrophils # Seg Neutrophils # Man Lymphocytes # (Manual) D-Dimer ABG pH POC ABG pCO2 POC ABG pO2 ABG pO2 ABG HCO3 ABG O2 Saturation ABG Base Excess ABG Hemoglobin ABG Oxyhemoglobin ABG Sodium ABG Glucose Oxyhemoglobin Carboxyhemoglobin Sodium Potassium Chloride Carbon Dioxide 31 H BUN 42 H Creatinine Glucose 133 H POC Glucose 157 H Calcium Phosphorus Magnesium AST Lactate Dehydrogenase Albumin Triglycerides Arterial Blood Glucose Arterial Blood Ionized Calcium Urine WBC (Auto) Salicylates Acetaminophen 11/29/21 11/30/21 11/30/21 17:27 00:23 04:42 WBC RBC 5.05 H Hgb Hct 43.6 H MCH 26 L MCHC RDW 17.5 H Plt Count Lymph % (Auto) [place] % (Auto) Lymph # (Auto) [place] # (Auto) Seg Neutrophils % Lymphocytes % (Manual) Seg Neutrophils # Seg Neutrophils # Man Lymphocytes # (Manual) D-Dimer ABG pH POC ABG pCO2 POC ABG pO2 ABG pO2 ABG HCO3 ABG O2 Saturation ABG Base Excess ABG Hemoglobin ABG Oxyhemoglobin ABG Sodium ABG Glucose Oxyhemoglobin Carboxyhemoglobin Sodium Potassium Chloride Carbon Dioxide BUN Creatinine Glucose POC Glucose 164 H 192 H Calcium Phosphorus Magnesium AST Lactate Dehydrogenase Albumin Triglycerides Arterial Blood Glucose Arterial Blood Ionized Calcium Urine WBC (Auto) Salicylates Acetaminophen 11/30/21 11/30/21 11/30/21 04:42 11:27 12:04 WBC RBC Hgb Hct MCH MCHC RDW Plt Count Lymph % (Auto) [place] % (Auto) Lymph # (Auto) [place] # (Auto) Seg Neutrophils % Lymphocytes % (Manual) Seg Neutrophils # Seg Neutrophils # Man Lymphocytes # (Manual) D-Dimer ABG pH POC ABG pCO2 60.0 H POC ABG pO2 68.3 L ABG pO2 ABG HCO3 ABG O2 Saturation ABG Base Excess ABG Hemoglobin ABG Oxyhemoglobin 90.9 L ABG Sodium 145.1 H ABG Glucose 122 H Oxyhemoglobin Carboxyhemoglobin Sodium Potassium Chloride Carbon Dioxide BUN 32 H Creatinine 0.5 L Glucose 178 H POC Glucose 156 H Calcium Phosphorus Magnesium AST Lactate Dehydrogenase Albumin Triglycerides Arterial Blood Glucose 122 H Arterial Blood Ionized Calcium Urine WBC (Auto) Salicylates Acetaminophen 11/30/21 11/30/21 12/01/21 17:35 23:51 04:00 WBC 13.8 H RBC Hgb Hct MCH 26 L MCHC RDW 17.6 H Plt Count 455 H Lymph % (Auto) [place] % (Auto) Lymph # (Auto) [place] # (Auto) Seg Neutrophils % Lymphocytes % (Manual) Seg Neutrophils # Seg Neutrophils # Man Lymphocytes # (Manual) D-Dimer ABG pH POC ABG pCO2 POC ABG pO2 ABG pO2 ABG HCO3 ABG O2 Saturation ABG Base Excess ABG Hemoglobin ABG Oxyhemoglobin ABG Sodium ABG Glucose Oxyhemoglobin Carboxyhemoglobin Sodium Potassium Chloride Carbon Dioxide BUN Creatinine Glucose POC Glucose 124 H 158 H Calcium Phosphorus Magnesium AST Lactate Dehydrogenase Albumin Triglycerides Arterial Blood Glucose Arterial Blood Ionized Calcium Urine WBC (Auto) Salicylates Acetaminophen 12/01/21 12/01/21 12/01/21 04:00 06:03 11:13 WBC RBC Hgb Hct MCH MCHC RDW Plt Count Lymph % (Auto) [place] % (Auto) Lymph # (Auto) [place] # (Auto) Seg Neutrophils % Lymphocytes % (Manual) Seg Neutrophils # Seg Neutrophils # Man Lymphocytes # (Manual) D-Dimer ABG pH POC ABG pCO2 POC ABG pO2 ABG pO2 ABG HCO3 ABG O2 Saturation ABG Base Excess ABG Hemoglobin ABG Oxyhemoglobin ABG Sodium ABG Glucose Oxyhemoglobin Carboxyhemoglobin Sodium Potassium Chloride Carbon Dioxide BUN 36 H Creatinine 0.5 L Glucose 188 H POC Glucose 178 H 121 H Calcium Phosphorus Magnesium AST Lactate Dehydrogenase Albumin Triglycerides Arterial Blood Glucose Arterial Blood Ionized Calcium Urine WBC (Auto) Salicylates Acetaminophen 12/01/21 12/01/21 12/01/21 11:42 16:54 23:43 WBC RBC Hgb Hct MCH MCHC RDW Plt Count Lymph % (Auto) [place] % (Auto) Lymph # (Auto) [place] # (Auto) Seg Neutrophils % Lymphocytes % (Manual) Seg Neutrophils # Seg Neutrophils # Man Lymphocytes # (Manual) D-Dimer ABG pH POC ABG pCO2 POC ABG pO2 ABG pO2 71.0 L ABG HCO3 32.3 H ABG O2 Saturation 94.5 L ABG Base Excess 5.7 H ABG Hemoglobin ABG Oxyhemoglobin ABG Sodium ABG Glucose Oxyhemoglobin 92.6 L Carboxyhemoglobin Sodium Potassium Chloride Carbon Dioxide BUN Creatinine Glucose POC Glucose 129 H 115 H Calcium Phosphorus Magnesium AST Lactate Dehydrogenase Albumin Triglycerides Arterial Blood Glucose Arterial Blood Ionized Calcium Urine WBC (Auto) Salicylates Acetaminophen 12/02/21 12/02/21 12/02/21 04:55 04:55 05:19 WBC RBC Hgb Hct MCH 26 L MCHC RDW 18.1 H Plt Count 476 H Lymph % (Auto) [place] % (Auto) Lymph # (Auto) [place] # (Auto) Seg Neutrophils % Lymphocytes % (Manual) Seg Neutrophils # Seg Neutrophils # Man Lymphocytes # (Manual) D-Dimer ABG pH POC ABG pCO2 POC ABG pO2 ABG pO2 ABG HCO3 ABG O2 Saturation ABG Base Excess ABG Hemoglobin ABG Oxyhemoglobin ABG Sodium ABG Glucose Oxyhemoglobin Carboxyhemoglobin Sodium Potassium Chloride Carbon Dioxide 33 H BUN 30 H Creatinine 0.5 L Glucose 140 H POC Glucose 127 H Calcium Phosphorus Magnesium AST Lactate Dehydrogenase Albumin Triglycerides Arterial Blood Glucose Arterial Blood Ionized Calcium Urine WBC (Auto) Salicylates Acetaminophen 12/02/21 12/02/21 12/02/21 11:33 17:19 23:49 WBC RBC Hgb Hct MCH MCHC RDW Plt Count Lymph % (Auto) [place] % (Auto) Lymph # (Auto) [place] # (Auto) Seg Neutrophils % Lymphocytes % (Manual) Seg Neutrophils # Seg Neutrophils # Man Lymphocytes # (Manual) D-Dimer ABG pH POC ABG pCO2 POC ABG pO2 ABG pO2 ABG HCO3 ABG O2 Saturation ABG Base Excess ABG Hemoglobin ABG Oxyhemoglobin ABG Sodium ABG Glucose Oxyhemoglobin Carboxyhemoglobin Sodium Potassium Chloride Carbon Dioxide BUN Creatinine Glucose POC Glucose 118 H 139 H 140 H Calcium Phosphorus Magnesium AST Lactate Dehydrogenase Albumin Triglycerides Arterial Blood Glucose Arterial Blood Ionized Calcium Urine WBC (Auto) Salicylates Acetaminophen 12/03/21 12/03/21 12/03/21 04:52 04:52 05:03 WBC RBC 5.15 H Hgb Hct 44.2 H MCH 27 L MCHC RDW 17.8 H Plt Count 566 H Lymph % (Auto) [place] % (Auto) Lymph # (Auto) [place] # (Auto) Seg Neutrophils % Lymphocytes % (Manual) Seg Neutrophils # Seg Neutrophils # Man Lymphocytes # (Manual) D-Dimer ABG pH POC ABG pCO2 POC ABG pO2 ABG pO2 ABG HCO3 ABG O2 Saturation ABG Base Excess ABG Hemoglobin ABG Oxyhemoglobin ABG Sodium ABG Glucose Oxyhemoglobin Carboxyhemoglobin Sodium Potassium Chloride Carbon Dioxide BUN 22 H Creatinine 0.4 L Glucose 142 H POC Glucose 142 H Calcium Phosphorus Magnesium AST Lactate Dehydrogenase Albumin Triglycerides Arterial Blood Glucose Arterial Blood Ionized Calcium Urine WBC (Auto) Salicylates Acetaminophen 12/03/21 12/03/21 12/04/21 11:16 16:11 04:48 WBC 12.1 H RBC 5.58 H Hgb Hct 47.8 H MCH 26 L MCHC RDW 18.4 H Plt Count 576 H Lymph % (Auto) [place] % (Auto) Lymph # (Auto) [place] # (Auto) Seg Neutrophils % Lymphocytes % (Manual) Seg Neutrophils # Seg Neutrophils # Man Lymphocytes # (Manual) D-Dimer ABG pH POC ABG pCO2 POC ABG pO2 ABG pO2 ABG HCO3 ABG O2 Saturation ABG Base Excess ABG Hemoglobin ABG Oxyhemoglobin ABG Sodium ABG Glucose Oxyhemoglobin Carboxyhemoglobin Sodium Potassium Chloride Carbon Dioxide BUN Creatinine Glucose POC Glucose 147 H 140 H Calcium Phosphorus Magnesium AST Lactate Dehydrogenase Albumin Triglycerides Arterial Blood Glucose Arterial Blood Ionized Calcium Urine WBC (Auto) Salicylates Acetaminophen 12/04/21 12/04/21 12/04/21 04:48 05:42 11:54 WBC RBC Hgb Hct MCH MCHC RDW Plt Count Lymph % (Auto) [place] % (Auto) Lymph # (Auto) [place] # (Auto) Seg Neutrophils % Lymphocytes % (Manual) Seg Neutrophils # Seg Neutrophils # Man Lymphocytes # (Manual) D-Dimer ABG pH POC ABG pCO2 POC ABG pO2 ABG pO2 ABG HCO3 ABG O2 Saturation ABG Base Excess ABG Hemoglobin ABG Oxyhemoglobin ABG Sodium ABG Glucose Oxyhemoglobin Carboxyhemoglobin Sodium Potassium Chloride Carbon Dioxide BUN 19 H Creatinine 0.5 L Glucose 123 H POC Glucose 111 H 121 H Calcium Phosphorus Magnesium AST Lactate Dehydrogenase Albumin Triglycerides Arterial Blood Glucose Arterial Blood Ionized Calcium Urine WBC (Auto) Salicylates Acetaminophen 12/05/21 12/05/21 12/05/21 07:53 08:02 08:02 WBC 11.3 H RBC 5.94 H Hgb 15.3 H Hct 50.9 H MCH 26 L MCHC RDW 18.3 H Plt Count 611 H Lymph % (Auto) [place] % (Auto) Lymph # (Auto) [place] # (Auto) Seg Neutrophils % Lymphocytes % (Manual) Seg Neutrophils # Seg Neutrophils # Man Lymphocytes # (Manual) D-Dimer ABG pH POC ABG pCO2 POC ABG pO2 ABG pO2 ABG HCO3 ABG O2 Saturation ABG Base Excess ABG Hemoglobin ABG Oxyhemoglobin ABG Sodium ABG Glucose Oxyhemoglobin Carboxyhemoglobin Sodium Potassium Chloride Carbon Dioxide BUN 19 H Creatinine 0.5 L Glucose POC Glucose 112 H Calcium Phosphorus Magnesium AST Lactate Dehydrogenase Albumin Triglycerides Arterial Blood Glucose Arterial Blood Ionized Calcium Urine WBC (Auto) Salicylates Acetaminophen 12/05/21 12/05/21 12/06/21 11:10 15:59 07:27 WBC RBC Hgb Hct MCH MCHC RDW Plt Count Lymph % (Auto) [place] % (Auto) Lymph # (Auto) [place] # (Auto) Seg Neutrophils % Lymphocytes % (Manual) Seg Neutrophils # Seg Neutrophils # Man Lymphocytes # (Manual) D-Dimer ABG pH POC ABG pCO2 POC ABG pO2 ABG pO2 ABG HCO3 ABG O2 Saturation ABG Base Excess ABG Hemoglobin ABG Oxyhemoglobin ABG Sodium ABG Glucose Oxyhemoglobin Carboxyhemoglobin Sodium Potassium Chloride Carbon Dioxide BUN Creatinine Glucose POC Glucose 125 H 108 H 112 H Calcium Phosphorus Magnesium AST Lactate Dehydrogenase Albumin Triglycerides Arterial Blood Glucose Arterial Blood Ionized Calcium Urine WBC (Auto) Salicylates Acetaminophen 12/06/21 12/06/21 12/06/21 11:45 11:56 16:26 WBC RBC Hgb Hct MCH MCHC RDW Plt Count Lymph % (Auto) [place] % (Auto) Lymph # (Auto) [place] # (Auto) Seg Neutrophils % Lymphocytes % (Manual) Seg Neutrophils # Seg Neutrophils # Man Lymphocytes # (Manual) D-Dimer ABG pH POC ABG pCO2 POC ABG pO2 ABG pO2 75.9 L ABG HCO3 27.1 H ABG O2 Saturation ABG Base Excess ABG Hemoglobin ABG Oxyhemoglobin ABG Sodium ABG Glucose Oxyhemoglobin 93.7 L Carboxyhemoglobin Sodium Potassium Chloride Carbon Dioxide BUN Creatinine Glucose POC Glucose 125 H 139 H Calcium Phosphorus Magnesium AST Lactate Dehydrogenase Albumin Triglycerides Arterial Blood Glucose Arterial Blood Ionized Calcium Urine WBC (Auto) Salicylates Acetaminophen 12/06/21 12/06/21 12/07/21 21:48 22:12 08:49 WBC RBC Hgb Hct MCH MCHC RDW Plt Count Lymph % (Auto) [place] % (Auto) Lymph # (Auto) [place] # (Auto) Seg Neutrophils % Lymphocytes % (Manual) Seg Neutrophils # Seg Neutrophils # Man Lymphocytes # (Manual) D-Dimer ABG pH POC ABG pCO2 POC ABG pO2 ABG pO2 ABG HCO3 ABG O2 Saturation ABG Base Excess ABG Hemoglobin ABG Oxyhemoglobin ABG Sodium ABG Glucose Oxyhemoglobin Carboxyhemoglobin Sodium Potassium Chloride Carbon Dioxide BUN Creatinine Glucose POC Glucose 130 H 129 H 129 H Calcium Phosphorus Magnesium AST Lactate Dehydrogenase Albumin Triglycerides Arterial Blood Glucose Arterial Blood Ionized Calcium Urine WBC (Auto) Salicylates Acetaminophen 12/07/21 12/08/21 12/08/21 11:38 07:47 11:18 WBC RBC Hgb Hct MCH MCHC RDW Plt Count Lymph % (Auto) [place] % (Auto) Lymph # (Auto) [place] # (Auto) Seg Neutrophils % Lymphocytes % (Manual) Seg Neutrophils # Seg Neutrophils # Man Lymphocytes # (Manual) D-Dimer ABG pH POC ABG pCO2 POC ABG pO2 ABG pO2 ABG HCO3 ABG O2 Saturation ABG Base Excess ABG Hemoglobin ABG Oxyhemoglobin ABG Sodium ABG Glucose Oxyhemoglobin Carboxyhemoglobin Sodium Potassium Chloride Carbon Dioxide BUN Creatinine Glucose POC Glucose 146 H 109 H 131 H Calcium Phosphorus Magnesium AST Lactate Dehydrogenase Albumin Triglycerides Arterial Blood Glucose Arterial Blood Ionized Calcium Urine WBC (Auto) Salicylates Acetaminophen 12/08/21 12/09/21 12/09/21 20:12 06:23 06:23 WBC 13.1 H RBC 6.18 H Hgb 16.3 H Hct 53.7 H MCH 26 L MCHC RDW 18.9 H Plt Count 726 H Lymph % (Auto) [place] % (Auto) Lymph # (Auto) [place] # (Auto) 0.9 H Seg Neutrophils % 75.5 H Lymphocytes % (Manual) Seg Neutrophils # 9.9 H Seg Neutrophils # Man Lymphocytes # (Manual) D-Dimer ABG pH POC ABG pCO2 POC ABG pO2 ABG pO2 ABG HCO3 ABG O2 Saturation ABG Base Excess ABG Hemoglobin ABG Oxyhemoglobin ABG Sodium ABG Glucose Oxyhemoglobin Carboxyhemoglobin Sodium 149 H D Potassium Chloride 110.3 H Carbon Dioxide BUN 23 H Creatinine Glucose 109 H POC Glucose 106 H Calcium Phosphorus Magnesium AST 47 H Lactate Dehydrogenase Albumin 3.8 L Triglycerides Arterial Blood Glucose Arterial Blood Ionized Calcium Urine WBC (Auto) Salicylates Acetaminophen 12/09/21 12/09/21 12/09/21 08:13 12:40 17:35 WBC RBC Hgb Hct MCH MCHC RDW Plt Count Lymph % (Auto) [place] % (Auto) Lymph # (Auto) [place] # (Auto) Seg Neutrophils % Lymphocytes % (Manual) Seg Neutrophils # Seg Neutrophils # Man Lymphocytes # (Manual) D-Dimer ABG pH POC ABG pCO2 POC ABG pO2 ABG pO2 ABG HCO3 ABG O2 Saturation ABG Base Excess ABG Hemoglobin ABG Oxyhemoglobin ABG Sodium ABG Glucose Oxyhemoglobin Carboxyhemoglobin Sodium Potassium Chloride Carbon Dioxide BUN Creatinine Glucose POC Glucose 110 H 135 H 117 H Calcium Phosphorus Magnesium AST Lactate Dehydrogenase Albumin Triglycerides Arterial Blood Glucose Arterial Blood Ionized Calcium Urine WBC (Auto) Salicylates Acetaminophen 12/09/21 12/10/21 12/10/21 21:01 07:45 16:38 WBC RBC Hgb Hct MCH MCHC RDW Plt Count Lymph % (Auto) [place] % (Auto) Lymph # (Auto) [place] # (Auto) Seg Neutrophils % Lymphocytes % (Manual) Seg Neutrophils # Seg Neutrophils # Man Lymphocytes # (Manual) D-Dimer ABG pH POC ABG pCO2 POC ABG pO2 ABG pO2 ABG HCO3 ABG O2 Saturation ABG Base Excess ABG Hemoglobin ABG Oxyhemoglobin ABG Sodium ABG Glucose Oxyhemoglobin Carboxyhemoglobin Sodium Potassium Chloride Carbon Dioxide BUN Creatinine Glucose POC Glucose 147 H 133 H 116 H Calcium Phosphorus Magnesium AST Lactate Dehydrogenase Albumin Triglycerides Arterial Blood Glucose Arterial Blood Ionized Calcium Urine WBC (Auto) Salicylates Acetaminophen 12/10/21 12/11/21 12/11/21 20:25 07:46 09:25 WBC 11.6 H RBC 5.61 H Hgb 14.8 H Hct 47.9 H MCH 26 L MCHC RDW 18.2 H Plt Count 632 H Lymph % (Auto) [place] % (Auto) Lymph # (Auto) [place] # (Auto) Seg Neutrophils % 74.8 H Lymphocytes % (Manual) Seg Neutrophils # 8.7 H Seg Neutrophils # Man Lymphocytes # (Manual) D-Dimer ABG pH POC ABG pCO2 POC ABG pO2 ABG pO2 ABG HCO3 ABG O2 Saturation ABG Base Excess ABG Hemoglobin ABG Oxyhemoglobin ABG Sodium ABG Glucose Oxyhemoglobin Carboxyhemoglobin Sodium Potassium Chloride Carbon Dioxide BUN Creatinine Glucose POC Glucose 119 H 124 H Calcium Phosphorus Magnesium AST Lactate Dehydrogenase Albumin Triglycerides Arterial Blood Glucose Arterial Blood Ionized Calcium Urine WBC (Auto) Salicylates Acetaminophen 12/11/21 12/11/21 09:25 11:54 WBC RBC Hgb Hct MCH MCHC RDW Plt Count Lymph % (Auto) [place] % (Auto) Lymph # (Auto) [place] # (Auto) Seg Neutrophils % Lymphocytes % (Manual) Seg Neutrophils # Seg Neutrophils # Man Lymphocytes # (Manual) D-Dimer ABG pH POC ABG pCO2 POC ABG pO2 ABG pO2 ABG HCO3 ABG O2 Saturation ABG Base Excess ABG Hemoglobin ABG Oxyhemoglobin ABG Sodium ABG Glucose Oxyhemoglobin Carboxyhemoglobin Sodium 136 L D Potassium 3.3 L Chloride Carbon Dioxide BUN Creatinine 0.5 L Glucose 131 H POC Glucose 118 H Calcium Phosphorus Magnesium AST Lactate Dehydrogenase Albumin 3.6 L Triglycerides Arterial Blood Glucose Arterial Blood Ionized Calcium Urine WBC (Auto) Salicylates Acetaminophen Allied health notes reviewed: nursing
[2021-12-11] MEDS: POTASSIUM CHLORIDE 10 MEQ in DEXTROSE 5% IN WATER 1,000 ML IV SCH (18:06)
--- NOTE | 2021-12-11 20:26 | Progress Note ---
Assessment and Plan - Patient Problems (1) Sepsis Current Visit: Yes Status: Acute Plan to address problem: Resolved status post full course antibiotic therapy. (2) Vascular dementia Current Visit: Yes Status: Acute Qualifiers: Dementia behavioral disturbance: without behavioral disturbance Qualified Code(s): F01.50 - Vascular dementia without behavioral disturbance Plan to address problem: Verbal prompting, verbal redirection, benzodiazepine therapy as clinically indicated. (3) Cerebral atherosclerosis Current Visit: Yes Status: Acute Plan to address problem: Risk factor reduction, antiplatelet therapy as clinically indicated (4) Acute respiratory failure Current Visit: No Status: Acute Plan to address problem: Resolved, continuous supplemental oxygen as clinically indicated. (5) Debility Current Visit: Yes Status: Acute Plan to address problem: Supportive care, continue medical management. (6) Pneumonia Current Visit: Yes Status: Acute Plan to address problem: Resolved with full course antibiotic therapy. (7) DVT prophylaxis Current Visit: Yes Status: Acute Plan to address problem: SCD to bilateral lower extremities while in bed (8) Advance care planning Current Visit: Yes Status: Acute Plan to address problem: Disease education conducted, care plan discussed, diagnosis discussed prognosis discussed, patient full code. He has management consulted. Patient pending longterm facility placement. +30 minutes. History Interval history: 81 YO Female HD #23 with Vascular Dementia, Cerebral Atherosclerosis, Pneumonia complicated by Respiratory Failure and Sepsis requiring intubation and ventilatory support, Encephalopathy, Debility. Patient is currently bedbound, nonambulatory and has a palliative performance score of 30% and require 6/6 assistance with activities of daily living. No acute decompensation overnight. No reported nursing events. Patient remains confused with tangential thinking. Case management consulted. Patient is pending rehab placement. Hospitalist Physical - Constitutional Vitals: Temp Pulse Resp BP Pulse Ox 98.9 F 103 H 16 171/90 95 12/11/21 16:44 12/11/21 19:59 12/11/21 19:59 12/11/21 16:56 12/11/21 20:02 General appearance: Present: no acute distress, obese, other (Very confused with the wrist restraints.) - EENT Eyes: Present: PERRL ENT: hearing decreased - Neck Neck: Present: supple - Respiratory Respiratory effort: labored Respiratory: bilateral: diminished - Cardiovascular Rhythm: regular Heart Sounds: Present: S1 & S2 - Extremities Extremities: no ischemia Peripheral Pulses: within normal limits - Abdominal General gastrointestinal: soft, non-tender, non-distended - Integumentary Integumentary: Present: clear, dry - Psychiatric Psychiatric: no appropriate mood/affect, no intact judgment & insight, no memory intact, cooperative - Neurologic Neurologic: CNII-XII intact, no focal deficits, moves all extremities, no gait normal HEART Score - HEART Score Troponin: Troponin T < 0.010 ng/mL (0.00-0.029) 11/18/21 03:25 Results - Labs CBC & Chem 7: 12/11/21 09:25 12/11/21 09:25 Labs: Laboratory Last Values WBC 11.6 K/mm3 (4.5-11.0) H 12/11/21 09:25 RBC 5.61 M/mm3 (3.65-5.03) H 12/11/21 09:25 Hgb 14.8 gm/dl (10.1-14.3) H 12/11/21 09:25 Hct 47.9 % (30.3-42.9) H 12/11/21 09:25 MCV 85 fl (79-97) 12/11/21 09:25 MCH 26 pg (28-32) L 12/11/21 09:25 MCHC 31 % (30-34) 12/11/21 09:25 RDW 18.2 % (13.2-15.2) H 12/11/21 09:25 Plt Count 632 K/mm3 (140-440) H 12/11/21 09:25 Lymph % (Auto) 15.2 % (13.4-35.0) 12/11/21 09:25 Bland % (Auto) 6.8 % (0.0-7.3) 12/11/21 09:25 Eos % (Auto) 2.3 % (0.0-4.3) 12/11/21 09:25 Baso % (Auto) 0.9 % (0.0-1.8) 12/11/21 09:25 Lymph # (Auto) 1.8 K/mm3 (1.2-5.4) 12/11/21 09:25 Bland # (Auto) 0.8 K/mm3 (0.0-0.8) 12/11/21 09:25 Eos # (Auto) 0.3 K/mm3 (0.0-0.4) 12/11/21 09:25 Baso # (Auto) 0.1 K/mm3 (0.0-0.1) 12/11/21 09:25 Add Manual Diff Complete 12/09/21 06:23 Total Counted 100 11/18/21 00:19 Seg Neutrophils % 74.8 % (40.0-70.0) H 12/11/21 09:25 Lymphocytes % (Manual) 4.0 % (13.4-35.0) L 11/18/21 00:19 Monocytes % (Manual) 2.0 % (0.0-7.3) 11/18/21 00:19 Nucleated RBC % Not Reportable 11/18/21 00:19 Seg Neutrophils # 8.7 K/mm3 (1.8-7.7) H 12/11/21 09:25 Seg Neutrophils # Man 14.7 K/mm3 (1.8-7.7) H 11/18/21 00:19 Band Neutrophils # 0.0 K/mm3 11/18/21 00:19 Lymphocytes # (Manual) 0.6 K/mm3 (1.2-5.4) L 11/18/21 00:19 Abs React Lymphs (Man) 0.0 K/mm3 11/18/21 00:19 Monocytes # (Manual) 0.3 K/mm3 (0.0-0.8) 11/18/21 00:19 Eosinophils # (Manual) 0.0 K/mm3 (0.0-0.4) 11/18/21 00:19 Basophils # (Manual) 0.0 K/mm3 (0.0-0.1) 11/18/21 00:19 Metamyelocytes # 0.0 K/mm3 11/18/21 00:19 Myelocytes # 0.0 K/mm3 11/18/21 00:19 Promyelocytes # 0.0 K/mm3 11/18/21 00:19 Blast Cells # 0.0 K/mm3 11/18/21 00:19 WBC Morphology Not Reportable 11/18/21 00:19 Hypersegmented Neuts Not Reportable 11/18/21 00:19 Hyposegmented Neuts Not Reportable 11/18/21 00:19 Hypogranular Neuts Not Reportable 11/18/21 00:19 Smudge Cells Not Reportable 11/18/21 00:19 Toxic Granulation Not Reportable 11/18/21 00:19 Toxic Vacuolation Not Reportable 11/18/21 00:19 Dohle Bodies Not Reportable 11/18/21 00:19 Pelger-Huet Anomaly Not Reportable 11/18/21 00:19 Luis Rods Not Reportable 11/18/21 00:19 Platelet Estimate Consistent w auto 11/18/21 00:19 Clumped Platelets Not Reportable 11/18/21 00:19 Plt Clumps, EDTA Not Reportable 11/18/21 00:19 Large Platelets Not Reportable 11/18/21 00:19 Giant Platelets Not Reportable 11/18/21 00:19 Platelet Satelliting Not Reportable 11/18/21 00:19 Plt Morphology Comment Not Reportable 11/18/21 00:19 RBC Morphology Not Reportable 11/18/21 00:19 Dimorphic RBCs Not Reportable 11/18/21 00:19 Polychromasia Not Reportable 11/18/21 00:19 Hypochromasia Not Reportable 11/18/21 00:19 Poikilocytosis Not Reportable 11/18/21 00:19 Anisocytosis 1+ 11/18/21 00:19 Microcytosis Not Reportable 11/18/21 00:19 Macrocytosis Few 11/18/21 00:19 Spherocytes Not Reportable 11/18/21 00:19 Pappenheimer Bodies Not Reportable 11/18/21 00:19 Sickle Cells Not Reportable 11/18/21 00:19 Target Cells Not Reportable 11/18/21 00:19 Tear Drop Cells Not Reportable 11/18/21 00:19 Ovalocytes Not Reportable 11/18/21 00:19 Helmet Cells Not Reportable 11/18/21 00:19 Connelly-Mal[place] Bodies Not Reportable 11/18/21 00:19 [place] Rings Not Reportable 11/18/21 00:19 Yumi Cells Not Reportable 11/18/21 00:19 Bite Cells Not Reportable 11/18/21 00:19 Crenated Cell Not Reportable 11/18/21 00:19 Elliptocytes Not Reportable 11/18/21 00:19 Acanthocytes (Spur) Not Reportable 11/18/21 00:19 Rouleaux Not Reportable 11/18/21 00:19 Hemoglobin C Crystals Not Reportable 11/18/21 00:19 Schistocytes Not Reportable 11/18/21 00:19 Malaria parasites Not Reportable 11/18/21 00:19 Shahriar Bodies Not Reportable 11/18/21 00:19 Hem Pathologist Commnt No 11/18/21 00:19 PT 12.9 Sec. (12.2-14.9) 11/18/21 00:19 INR 0.88 (0.87-1.13) 11/18/21 00:19 APTT 29.2 Sec. (24.2-36.6) 11/18/21 00:19 D-Dimer 464.80 ng/mlDDU (0-234) H 11/18/21 05:15 ABG pH 7.446 pH Units (7.350-7.450) 12/06/21 11:45 POC ABG pCO2 60.0 mmHg (32.0-48.0) H 11/30/21 12:04 ABG pCO2 40.3 mm Hg 12/06/21 11:45 POC ABG pO2 68.3 mmHg (83-108) L 11/30/21 12:04 ABG pO2 75.9 mm Hg (80.0-90.0) L 12/06/21 11:45 POC ABG HCO3 32.9 11/30/21 12:04 ABG HCO3 27.1 mmol/L (20.0-26.0) H 12/06/21 11:45 ABG O2 Saturation 95.9 % (95.0-99.0) 12/06/21 11:45 ABG O2 Content 20.5 (0.0-44) 12/06/21 11:45 POC ABG Base Excess 5.5 11/30/21 12:04 ABG Base Excess 2.9 mmol/L (-2.0-3.0) 12/06/21 11:45 ABG Hemoglobin 15.6 gm/dl (12.0-16.0) 12/06/21 11:45 ABG Oxyhemoglobin 90.9 (94-98) L 11/30/21 12:04 ABG Carboxyhemoglobin 1.7 % (0.0-5.0) 12/06/21 11:45 ABG Methemoglobin 0.5 % (0.0-1.5) 12/06/21 11:45 ABG Sodium 145.1 mmol/L (136.0-145.0) H 11/30/21 12:04 ABG Potassium 4.0 mmol/L (3.40-4.50) 11/30/21 12:04 ABG Chloride 102.0 mmol/L (98-107) 11/30/21 12:04 ABG Glucose 122 mg/dL (65-95) H 11/30/21 12:04 Oxyhemoglobin 93.7 % (95.0-99.0) L 12/06/21 11:45 Carboxyhemoglobin 1.2 (0.5-1.5) 11/30/21 12:04 FiO2 32 % 12/06/21 11:45 FiO2 % 40 11/30/21 12:04 Sodium 136 mmol/L (137-145) L D 12/11/21 09:25 Potassium 3.3 mmol/L (3.6-5.0) L 12/11/21 09:25 Chloride 100.2 mmol/L (98-107) 12/11/21 09:25 Carbon Dioxide 24 mmol/L (22-30) 12/11/21 09:25 Anion Gap 15 mmol/L 12/11/21 09:25 BUN 10 mg/dL (7-17) 12/11/21 09:25 Creatinine 0.5 mg/dL (0.6-1.2) L 12/11/21 09:25 Estimated GFR > 60 ml/min 12/11/21 09:25 BUN/Creatinine Ratio 20 % 12/11/21 09:25 Glucose 131 mg/dL (65-100) H 12/11/21 09:25 POC Glucose 114 mg/dL (70-105) H 12/11/21 16:38 Hemoglobin A1c 5.9 % (4-6) 11/19/21 07:59 Lactic Acid 1.40 mmol/L (0.7-2.0) 11/18/21 00:19 Calcium 9.7 mg/dL (8.4-10.2) 12/11/21 09:25 Phosphorus 3.80 mg/dL (2.5-4.5) 12/04/21 04:48 Magnesium 2.00 mg/dL (1.7-2.3) 12/04/21 04:48 Total Bilirubin 0.60 mg/dL (0.1-1.2) 12/11/21 09:25 Direct Bilirubin < 0.2 mg/dL (0-0.2) 11/18/21 00:19 Indirect Bilirubin 0.2 mg/dL 11/18/21 00:19 AST 28 units/L (5-40) 12/11/21 09:25 ALT 39 units/L (7-56) 12/11/21 09:25 Alkaline Phosphatase 85 units/L (35-129) 12/11/21 09:25 Ammonia 54.0 umol/L (25-60) 11/18/21 00:19 Lactate Dehydrogenase 275 units/L (91-180) H 11/18/21 05:15 Troponin T < 0.010 ng/mL (0.00-0.029) 11/18/21 03:25 C-Reactive Protein 0.70 mg/dL (0.00-1.30) 11/18/21 15:47 NT-Pro-B Natriuret Pep 867.7 pg/mL (0-900) 11/18/21 00:19 Total Protein 6.5 g/dL (6.3-8.2) 12/11/21 09:25 Albumin 3.6 g/dL (3.9-5) L 12/11/21 09:25 Albumin/Globulin Ratio 1.2 % 12/11/21 09:25 Triglycerides 185 mg/dL (2-149) H 11/22/21 04:39 Lipase 13 units/L (13-60) 11/18/21 00:19 Procalcitonin 0.12 ng/mL (<0.15) 11/18/21 05:15 Arterial Blood Glucose 122 mg/dL (65-95) H 11/30/21 12:04 Arterial Blood Ionized Calcium 5.2 mg/dL (4.6-5.3) 11/29/21 03:51 Urine Color Yellow (Yellow) 11/23/21 12:24 Urine Turbidity Clear (Clear) 11/23/21 12:24 Urine pH 7.0 (5.0-7.0) 11/23/21 12:24 Ur Specific [place] 1.018 (1.003-1.030) 11/23/21 12:24 Urine Protein <15 mg/dl mg/dL (Negative) 11/23/21 12:24 Urine Glucose (UA) Neg mg/dL (Negative) 11/23/21 12:24 Urine Ketones Neg mg/dL (Negative) 11/23/21 12:24 Urine Blood Neg (Negative) 11/23/21 12:24 Urine Nitrite Neg (Negative) 11/23/21 12:24 Urine Bilirubin Neg (Negative) 11/23/21 12:24 Urine Urobilinogen 4.0 mg/dL (<2.0) 11/23/21 12:24 Ur Leukocyte Esterase Neg (Negative) 11/23/21 12:24 Urine WBC (Auto) 1.0 /HPF (0.0-6.0) 11/23/21 12:24 Urine RBC (Auto) 1.0 /HPF (0.0-6.0) 11/23/21 12:24 U Epithel Cells (Auto) 1.0 /HPF (0-13.0) 11/18/21 01:03 Hyaline Casts 3 /LPF 11/18/21 01:03 Urine Mucus Few /HPF 11/18/21 01:03 Salicylates < 0.3 mg/dL (2.8-20.0) L 11/18/21 00:19 Urine Opiates Screen Negative 11/18/21 01:03 Urine Methadone Screen Negative 11/18/21 01:03 Acetaminophen 5.0 ug/mL (10.0-30.0) L 11/18/21 00:19 Ur Barbiturates Screen Negative 11/18/21 01:03 Ur Phencyclidine Scrn Negative 11/18/21 01:03 Ur Amphetamines Screen Negative 11/18/21 01:03 U Benzodiazepines Scrn Negative 11/18/21 01:03 Urine Cocaine Screen Negative 11/18/21 01:03 U Marijuana (THC) Screen Negative 11/18/21 01:03 Drugs of Abuse Note Disclamer 11/18/21 01:03 Plasma/Serum Alcohol < 0.01 % (0-0.07) 11/18/21 00:19 Coronavirus (PCR) Negative (Negative) 11/18/21 Unknown Bhandari/IV: Voiding Method Indwelling Catheter Active Medications - Current Medications Current Medications: Generic Name Dose Route Start Last Admin Trade Name Freq PRN Reason Stop Dose Admin Acetaminophen 650 mg 11/18/21 03:10 12/09/21 13:11 Acetaminophen 650 Mg Rect Supp OK 650 mg Q6H PRN Administration Pain MILD(1-3)/Fever >100.5/MONTIEL Albuterol 2.5 mg 12/03/21 12:16 12/07/21 15:45 Albuterol 2.5 Mg/3 Ml Nebu IH 2.5 mg Q4HRT PRN Administration Shortness Of Breath Amlodipine Besylate 10 mg 11/27/21 10:00 12/11/21 09:10 Amlodipine 10 Mg Tab PO 10 mg DAILY PAULINA Administration Arformoterol Tartrate 15 mcg 11/18/21 20:00 12/11/21 19:58 Arformoterol 15 Mcg/2 Ml Nebu IH 15 mcg Q12HRT PAULINA Administration Aspirin 81 mg 11/27/21 10:00 12/11/21 09:10 Aspirin Ec 81 Mg Tab PO 81 mg QDAY PAULINA Administration Budesonide 0.5 mg 11/18/21 20:00 12/11/21 19:58 Budesonide 0.5 Mg/2 Ml Nebu IH 0.5 mg Q12HRT PAULINA Administration Carvedilol 12.5 mg 11/25/21 13:00 12/11/21 09:10 Carvedilol 12.5 Mg Tab FEEDTUBE 12.5 mg BID PAULINA Administration Dextrose 50 ml 11/18/21 10:40 Dextrose 50% In Water (25gm) 50 Ml Syringe IV Q30MIN PRN Hypoglycemia Protocol Enoxaparin Sodium 40 mg 11/19/21 22:00 12/10/21 22:22 Enoxaparin 40 Mg/0.4 Ml Inj SUB-Q 40 mg QDAY@2200 PAULINA Administration Protocol Famotidine 20 mg 11/20/21 10:00 12/11/21 09:10 Famotidine 20 Mg Tab FEEDTUBE 20 mg BID PAULINA Administration Hydralazine HCl 10 mg 11/18/21 10:44 12/11/21 16:56 Hydralazine 20 Mg/1 Ml Inj IV 10 mg Q4HR PRN Administration Hypertension Hydrophilic Ointment 1 applic 11/18/21 15:26 Lip Therapy Vaseline TP Q2HR PRN Dry Lips Potassium Chloride 10 meq/ 1,005 mls @ 100 mls/hr 12/09/21 11:45 12/11/21 18:06 Dextrose IV 100 mls/hr DIRECT PAULINA Administration Insulin Human Lispro 0 unit 12/04/21 16:30 12/11/21 16:55 Insulin Lispro 100 Unit/Ml SUB-Q Not Given ACHS [facility] Protocol Isosorbide Mononitrate 60 mg 12/04/21 15:00 12/11/21 09:10 Isosorbide Mononitrate Er 60 Mg Tab PO 60 mg QDAY PAULINA Administration Losartan Potassium 100 mg 12/05/21 10:00 12/11/21 09:10 Losartan 50 Mg Tab PO 100 mg QDAY PAULINA Administration Magnesium Hydroxide 30 ml 11/18/21 03:10 Magnesium Hydroxide (Mom) Oral Liqd Udc PO Q4H PRN Constipation Senna/Docusate Sodium 1 tab 11/18/21 22:00 12/11/21 09:10 Sennosides/Docusate Sodium 8.6/50 Mg Tab FEEDTUBE 1 tab BID PAULINA Administration Nutrition/Malnutrition Assess - Dietary Evaluation Nutrition/Malnutrition Findings: Nutrition Notes Start: 11/18/21 10:45 Freq: Status: Active Protocol: Document 12/08/21 16:46 LEONARDO (Rec: 12/08/21 16:56 LEONARDO [email or web address]) Nutrition Notes Initial or Follow up Brief Note Current Diet Pureed Diet (since D 12/06), D Suppl (since D 12/08).. Height 5 ft 8 in Weight 81.6 kg [place] Body Weight (kg) 63.63 BMI 27.3 Weight change and time frame No body weight change reported . Weight Status Overweight Subjective/Other Information RD consult for routine F/U on [employer] evaluation and TF tolerance or Dietary advancement. Diet advanced to PO. %PO intake of meals has been Neglible (<25%), according to ADL notes. Dietary Supplements recommended and ordered. Percent of energy/protein needs met: Prescribed Pureed Diet provides for energy/protein needs (1,804 Kcal/77 g) during LOS; additionally, Dietary Supplements will compensate for possible Poor PO intake of meals with 1,050 Kcal and 60 g of protein. Current % PO Negligible Minimum of two criteria No #1 Nutrition Diagnosis Inadequate oral intake Comments: Diet advanced to Po, but intake remains neglible. Diagnosis Progress(for reassessment Improved documentation) Nutrition Intervention Change Diet Order: Continue Pureed Diet. Add Supplement/Snack (indicate name/kcal 8 fl oz Ensure Enlive; TID. /protein ) Provides kCal: 1,050 Provides Protein (gm) 60 Goal #1 Compensate, through dietary supplementation, for possible poor or insufficient PO intake of meals during LOS. Follow-Up By: 12/15/21 Additional Comments Continue monitoring food tolerance, %PO intake of meals and ONS, and BM.
[2021-12-11] MEDS: ENOXAPARIN 40 MG/0.4 ML INJ SUB-Q SCH (21:44)
[2021-12-12] MEDS: POTASSIUM CHLORIDE 10 MEQ in DEXTROSE 5% IN WATER 1,000 ML IV SCH (06:41)
[2021-12-12] MEDS: INSULIN LISPRO 100 UNIT/ML SUB-Q SCH ×4 (08:30→21:59)
[2021-12-12] MEDS: BUDESONIDE 0.5 MG/2 ML NEBU IH SCH ×2 (09:16→20:06)
[2021-12-12] MEDS: ARFORMOTEROL 15 MCG/2 ML NEBU IH SCH ×2 (09:16→20:06)
[2021-12-12] MEDS: ASPIRIN EC 81 MG TAB PO SCH (10:45)
[2021-12-12] MEDS: FAMOTIDINE 20 MG TAB FEEDTUBE SCH ×2 (10:45→21:59)
[2021-12-12] MEDS: carvediloL 12.5 MG TAB FEEDTUBE SCH ×2 (10:46→21:59)
[2021-12-12] MEDS: LOSARTAN 50 MG TAB PO SCH (10:47)
[2021-12-12] MEDS: amLODIPine 10 MG TAB PO SCH (10:47)
[2021-12-12] MEDS: SENNOSIDES/DOCUSATE SODIUM 8.6/50 MG TAB FEEDTUBE SCH ×2 (10:47→21:59)
--- NOTE | 2021-12-12 16:58 | Progress Note ---
Assessment and Plan Acute exacerbation of chronic obstructive lung disease Acute hypoxemic respiratory failure Acute congestive heart failure exacerbation (? Flash Pulmonary edema) Community-acquired pneumonia Leukocytosis History of coronary artery disease Gastroesophageal reflux disease Arthritis Hyperlipidemia Obesity Elevated D-dimers Acute toxic metabolic encephalopathy Urinary tract infection Likely pulmonary hypertension Hypertensive emergency - follow TSH level - Psych consult placed - continue BIPAP scheduled qhs - continue care as below otherwise; - wean supplemental oxygen for target O2 sat's > 90% acutely - continue aspiration precautions - bronchodilators (LIZZY & LABA) with pulmonary hygiene per RT - continue Pulmicort re: COPD - avoid nephrotoxins, renally dose all medications - continue accuchecks with glycemic control per SSI for target blood glucose of < 180 mg/dL; avoid hypoglycemia - continue to avoid benzodiazepine's, reduce the possibility of delirium - completed AB's course - prn analgesia per pain score - Maintenance of sleep-wake cycle, avoid delirium - continue enteral nutritional support at goal rate as tolerated - G.I. & VTE prophylaxis - PT/OT/ROM exercises - continue mobility protocols for pressure ulcer prophylaxis - Monitor hemodynamics closely - continue other care per attending / other consultants - discharge planning ongoing concurrently COVID SPECIFIC INTERVENTIONS: - COVID-19 test negative .... Re-evaluate in am & prn Subjective Date of service: 12/12/21 Principal diagnosis: AE-COPD; AHRF; CHF (? new onset); CAP; CAD; Obesity; HTNsive Emergency Interval history: Patient is seen today for: AE-COPD; Acute hypoxemic respiratory failure; CHF (? new onset); CAP; CAD; Obesity; HTNsive Emergency Seen and examined at bedside; 24hour events reviewed; nursing and respiratory care staff consulted; no adverse overnight events reported to me; resting peacefully in bed; Objective Vital Signs - 12hr 12/12/21 12/12/21 12/12/21 09:16 09:17 10:45 Pulse Rate 88 Pulse Rate [ 82 Anterior Bilateral Throughout] Respiratory 16 Rate [Anterior Bilateral Throughout] Blood Pressure 175/75 O2 Sat by Pulse 98 Oximetry 12/12/21 10:46 Pulse Rate 88 Pulse Rate [ Anterior Bilateral Throughout] Respiratory Rate [Anterior Bilateral Throughout] Blood Pressure 175/75 O2 Sat by Pulse Oximetry Constitutional: no acute distress, other (elderly obese female with mildly increased respiratory effort at rest ) Eyes: non-icteric ENT: oropharynx moist Neck: supple, no lymphadenopathy, no JVD, other (large circumference) Effort: mildly labored Ascultation: Bilateral: clear, diminished breath sounds, rhonchi (scant bases) Percussion: Bilateral: not dull Cardiovascular: regular rate and rhythm Gastrointestinal: normoactive bowel sounds, soft, non-tender, non-distended (protuberant) Integumentary: normal Extremities: no cyanosis, no edema, pulses normal, no ischemia or petechiae Neurologic: non-focal exam (grossly), pupils equal and round, CN II-XII normal Psychiatric: other (mild delirium) CBC and BMP: 12/11/21 09:25 12/11/21 09:25 ABG, PT/INR, D-dimer: ABG ABG pH 7.446 pH Units (7.350-7.450) 12/06/21 11:45 POC ABG pCO2 60.0 mmHg (32.0-48.0) H 11/30/21 12:04 ABG pCO2 40.3 mm Hg 12/06/21 11:45 POC ABG pO2 68.3 mmHg (83-108) L 11/30/21 12:04 ABG pO2 75.9 mm Hg (80.0-90.0) L 12/06/21 11:45 POC ABG HCO3 32.9 11/30/21 12:04 ABG O2 Saturation 95.9 % (95.0-99.0) 12/06/21 11:45 PT/INR, D-dimer PT 12.9 Sec. (12.2-14.9) 11/18/21 00:19 INR 0.88 (0.87-1.13) 11/18/21 00:19 D-Dimer 464.80 ng/mlDDU (0-234) H 11/18/21 05:15 Abnormal lab findings: Abnormal Labs 11/18/21 11/18/21 11/18/21 00:01 00:19 00:19 WBC 15.6 H RBC 5.59 H Hgb 14.8 H Hct 49.8 H MCH 27 L MCHC RDW 16.9 H Plt Count Lymph % (Auto) [facility] % (Auto) Lymph # (Auto) [facility] # (Auto) Seg Neutrophils % Lymphocytes % (Manual) 4.0 L Seg Neutrophils # Seg Neutrophils # Man 14.7 H Lymphocytes # (Manual) 0.6 L D-Dimer ABG pH POC ABG pCO2 POC ABG pO2 ABG pO2 ABG HCO3 ABG O2 Saturation ABG Base Excess ABG Hemoglobin ABG Oxyhemoglobin ABG Sodium ABG Glucose Oxyhemoglobin Carboxyhemoglobin Sodium Potassium Chloride Carbon Dioxide BUN Creatinine Glucose 148 H POC Glucose 151 H Calcium Phosphorus Magnesium AST Lactate Dehydrogenase Albumin Triglycerides Arterial Blood Glucose Arterial Blood Ionized Calcium Urine WBC (Auto) Salicylates Acetaminophen 11/18/21 11/18/21 11/18/21 00:19 00:19 00:19 WBC RBC Hgb Hct MCH MCHC RDW Plt Count Lymph % (Auto) [facility] % (Auto) Lymph # (Auto) [facility] # (Auto) Seg Neutrophils % Lymphocytes % (Manual) Seg Neutrophils # Seg Neutrophils # Man Lymphocytes # (Manual) D-Dimer ABG pH POC ABG pCO2 POC ABG pO2 ABG pO2 ABG HCO3 ABG O2 Saturation ABG Base Excess ABG Hemoglobin ABG Oxyhemoglobin ABG Sodium ABG Glucose Oxyhemoglobin Carboxyhemoglobin Sodium Potassium Chloride Carbon Dioxide BUN Creatinine Glucose POC Glucose Calcium Phosphorus Magnesium 2.50 H AST Lactate Dehydrogenase Albumin Triglycerides Arterial Blood Glucose Arterial Blood Ionized Calcium Urine WBC (Auto) Salicylates < 0.3 L Acetaminophen 5.0 L 11/18/21 11/18/21 11/18/21 01:03 02:00 05:15 WBC RBC Hgb Hct MCH MCHC RDW Plt Count Lymph % (Auto) [facility] % (Auto) Lymph # (Auto) [facility] # (Auto) Seg Neutrophils % Lymphocytes % (Manual) Seg Neutrophils # Seg Neutrophils # Man Lymphocytes # (Manual) D-Dimer 464.80 H ABG pH POC ABG pCO2 POC ABG pO2 ABG pO2 ABG HCO3 35.8 H ABG O2 Saturation ABG Base Excess 7.8 H ABG Hemoglobin ABG Oxyhemoglobin ABG Sodium ABG Glucose Oxyhemoglobin 91.9 L Carboxyhemoglobin Sodium Potassium Chloride Carbon Dioxide BUN Creatinine Glucose POC Glucose Calcium Phosphorus Magnesium AST Lactate Dehydrogenase Albumin Triglycerides Arterial Blood Glucose Arterial Blood Ionized Calcium Urine WBC (Auto) 16.0 H Salicylates Acetaminophen 11/18/21 11/18/21 11/18/21 05:15 15:47 15:47 WBC 13.5 H RBC 5.60 H Hgb 14.9 H Hct 49.1 H MCH 27 L MCHC RDW 17.3 H Plt Count Lymph % (Auto) 7.[address] [facility] % (Auto) 10.1 H Lymph # (Auto) 1.[address] [facility] # (Auto) 1.4 H Seg Neutrophils % 81.7 H Lymphocytes % (Manual) Seg Neutrophils # 11.0 H Seg Neutrophils # Man Lymphocytes # (Manual) D-Dimer ABG pH POC ABG pCO2 POC ABG pO2 ABG pO2 ABG HCO3 ABG O2 Saturation ABG Base Excess ABG Hemoglobin ABG Oxyhemoglobin ABG Sodium ABG Glucose Oxyhemoglobin Carboxyhemoglobin Sodium Potassium Chloride Carbon Dioxide BUN Creatinine Glucose 138 H POC Glucose Calcium Phosphorus Magnesium AST Lactate Dehydrogenase 275 H Albumin Triglycerides Arterial Blood Glucose Arterial Blood Ionized Calcium Urine WBC (Auto) Salicylates Acetaminophen 11/18/21 11/18/21 11/19/21 18:45 23:33 04:58 WBC RBC Hgb Hct MCH MCHC RDW Plt Count Lymph % (Auto) [facility] % (Auto) Lymph # (Auto) [facility] # (Auto) Seg Neutrophils % Lymphocytes % (Manual) Seg Neutrophils # Seg Neutrophils # Man Lymphocytes # (Manual) D-Dimer ABG pH POC ABG pCO2 POC ABG pO2 ABG pO2 ABG HCO3 ABG O2 Saturation ABG Base Excess ABG Hemoglobin ABG Oxyhemoglobin ABG Sodium ABG Glucose Oxyhemoglobin Carboxyhemoglobin Sodium Potassium Chloride Carbon Dioxide BUN Creatinine Glucose 130 H POC Glucose 132 H 113 H Calcium Phosphorus Magnesium AST Lactate Dehydrogenase Albumin Triglycerides Arterial Blood Glucose Arterial Blood Ionized Calcium Urine WBC (Auto) Salicylates Acetaminophen 11/19/21 11/19/21 11/19/21 07:59 07:59 08:55 WBC 12.7 H RBC 5.29 H Hgb Hct 45.5 H MCH 26 L MCHC RDW 17.4 H Plt Count Lymph % (Auto) 12.[address] [facility] % (Auto) 9.6 H Lymph # (Auto) [facility] # (Auto) 1.2 H Seg Neutrophils % 76.9 H Lymphocytes % (Manual) Seg Neutrophils # 9.7 H Seg Neutrophils # Man Lymphocytes # (Manual) D-Dimer ABG pH 7.518 H POC ABG pCO2 POC ABG pO2 ABG pO2 77.6 L ABG HCO3 30.1 H ABG O2 Saturation ABG Base Excess 6.9 H ABG Hemoglobin ABG Oxyhemoglobin ABG Sodium ABG Glucose Oxyhemoglobin Carboxyhemoglobin Sodium Potassium 3.1 L D Chloride Carbon Dioxide BUN Creatinine Glucose 115 H POC Glucose Calcium 8.1 L Phosphorus Magnesium AST Lactate Dehydrogenase Albumin Triglycerides Arterial Blood Glucose Arterial Blood Ionized Calcium Urine WBC (Auto) Salicylates Acetaminophen 11/19/21 11/19/21 11/20/21 11:33 16:22 04:20 WBC 13.9 H RBC 5.44 H Hgb Hct 49.3 H MCH 26 L MCHC 29 L RDW 18.3 H Plt Count Lymph % (Auto) [facility] % (Auto) Lymph # (Auto) [facility] # (Auto) Seg Neutrophils % Lymphocytes % (Manual) Seg Neutrophils # Seg Neutrophils # Man Lymphocytes # (Manual) D-Dimer ABG pH POC ABG pCO2 POC ABG pO2 ABG pO2 ABG HCO3 ABG O2 Saturation ABG Base Excess ABG Hemoglobin ABG Oxyhemoglobin ABG Sodium ABG Glucose Oxyhemoglobin Carboxyhemoglobin Sodium Potassium Chloride Carbon Dioxide BUN Creatinine Glucose POC Glucose 119 H 112 H Calcium Phosphorus Magnesium AST Lactate Dehydrogenase Albumin Triglycerides Arterial Blood Glucose Arterial Blood Ionized Calcium Urine WBC (Auto) Salicylates Acetaminophen 11/20/21 11/20/21 11/20/21 04:20 11:07 12:02 WBC RBC Hgb Hct MCH MCHC RDW Plt Count Lymph % (Auto) [facility] % (Auto) Lymph # (Auto) [facility] # (Auto) Seg Neutrophils % Lymphocytes % (Manual) Seg Neutrophils # Seg Neutrophils # Man Lymphocytes # (Manual) D-Dimer ABG pH 7.251 L POC ABG pCO2 POC ABG pO2 ABG pO2 66.3 L ABG HCO3 30.2 H ABG O2 Saturation 91.8 L ABG Base Excess ABG Hemoglobin ABG Oxyhemoglobin ABG Sodium ABG Glucose Oxyhemoglobin 89.4 L Carboxyhemoglobin Sodium 147 H Potassium Chloride Carbon Dioxide BUN 25 H Creatinine Glucose POC Glucose 118 H Calcium Phosphorus 6.40 H Magnesium AST Lactate Dehydrogenase Albumin Triglycerides Arterial Blood Glucose Arterial Blood Ionized Calcium Urine WBC (Auto) Salicylates Acetaminophen 11/20/21 11/21/21 11/21/21 17:31 00:07 04:44 WBC 14.0 H RBC 5.08 H Hgb Hct 44.7 H MCH 26 L MCHC 29 L RDW 17.8 H Plt Count Lymph % (Auto) [facility] % (Auto) Lymph # (Auto) [facility] # (Auto) Seg Neutrophils % Lymphocytes % (Manual) Seg Neutrophils # Seg Neutrophils # Man Lymphocytes # (Manual) D-Dimer ABG pH POC ABG pCO2 POC ABG pO2 ABG pO2 ABG HCO3 ABG O2 Saturation ABG Base Excess ABG Hemoglobin ABG Oxyhemoglobin ABG Sodium ABG Glucose Oxyhemoglobin Carboxyhemoglobin Sodium Potassium Chloride Carbon Dioxide BUN Creatinine Glucose POC Glucose 139 H 147 H Calcium Phosphorus Magnesium AST Lactate Dehydrogenase Albumin Triglycerides Arterial Blood Glucose Arterial Blood Ionized Calcium Urine WBC (Auto) Salicylates Acetaminophen 11/21/21 11/21/21 11/21/21 04:44 06:06 11:45 WBC RBC Hgb Hct MCH MCHC RDW Plt Count Lymph % (Auto) [facility] % (Auto) Lymph # (Auto) [facility] # (Auto) Seg Neutrophils % Lymphocytes % (Manual) Seg Neutrophils # Seg Neutrophils # Man Lymphocytes # (Manual) D-Dimer ABG pH POC ABG pCO2 POC ABG pO2 ABG pO2 ABG HCO3 ABG O2 Saturation ABG Base Excess ABG Hemoglobin ABG Oxyhemoglobin ABG Sodium ABG Glucose Oxyhemoglobin Carboxyhemoglobin Sodium Potassium Chloride Carbon Dioxide BUN 20 H Creatinine Glucose 157 H POC Glucose 158 H 119 H Calcium Phosphorus Magnesium AST Lactate Dehydrogenase Albumin Triglycerides Arterial Blood Glucose Arterial Blood Ionized Calcium Urine WBC (Auto) Salicylates Acetaminophen 11/21/21 11/21/21 11/22/21 11:50 16:54 00:03 WBC RBC Hgb Hct MCH MCHC RDW Plt Count Lymph % (Auto) [facility] % (Auto) Lymph # (Auto) [facility] # (Auto) Seg Neutrophils % Lymphocytes % (Manual) Seg Neutrophils # Seg Neutrophils # Man Lymphocytes # (Manual) D-Dimer ABG pH POC ABG pCO2 POC ABG pO2 ABG pO2 61.8 L ABG HCO3 35.2 H ABG O2 Saturation 92.8 L ABG Base Excess 8.1 H ABG Hemoglobin ABG Oxyhemoglobin ABG Sodium ABG Glucose Oxyhemoglobin 90.6 L Carboxyhemoglobin Sodium Potassium Chloride Carbon Dioxide BUN Creatinine Glucose POC Glucose 149 H 133 H Calcium Phosphorus Magnesium AST Lactate Dehydrogenase Albumin Triglycerides Arterial Blood Glucose Arterial Blood Ionized Calcium Urine WBC (Auto) Salicylates Acetaminophen 11/22/21 11/22/21 11/22/21 04:39 04:39 04:39 WBC 14.1 H RBC Hgb Hct 43.4 H MCH 26 L MCHC RDW 17.9 H Plt Count Lymph % (Auto) [facility] % (Auto) Lymph # (Auto) [facility] # (Auto) Seg Neutrophils % Lymphocytes % (Manual) Seg Neutrophils # Seg Neutrophils # Man Lymphocytes # (Manual) D-Dimer ABG pH POC ABG pCO2 POC ABG pO2 ABG pO2 ABG HCO3 ABG O2 Saturation ABG Base Excess ABG Hemoglobin ABG Oxyhemoglobin ABG Sodium ABG Glucose Oxyhemoglobin Carboxyhemoglobin Sodium Potassium Chloride Carbon Dioxide 33 H BUN Creatinine Glucose 152 H POC Glucose Calcium Phosphorus Magnesium AST Lactate Dehydrogenase Albumin Triglycerides 185 H Arterial Blood Glucose Arterial Blood Ionized Calcium Urine WBC (Auto) Salicylates Acetaminophen 11/22/21 11/22/21 11/22/21 05:02 10:56 11:31 WBC RBC Hgb Hct MCH MCHC RDW Plt Count Lymph % (Auto) [facility] % (Auto) Lymph # (Auto) [facility] # (Auto) Seg Neutrophils % Lymphocytes % (Manual) Seg Neutrophils # Seg Neutrophils # Man Lymphocytes # (Manual) D-Dimer ABG pH POC ABG pCO2 POC ABG pO2 ABG pO2 55.3 L ABG HCO3 39.4 H ABG O2 Saturation 89.5 L ABG Base Excess 11.7 H ABG Hemoglobin ABG Oxyhemoglobin ABG Sodium ABG Glucose Oxyhemoglobin 87.2 L Carboxyhemoglobin Sodium Potassium Chloride Carbon Dioxide BUN Creatinine Glucose POC Glucose 158 H 116 H Calcium Phosphorus Magnesium AST Lactate Dehydrogenase Albumin Triglycerides Arterial Blood Glucose Arterial Blood Ionized Calcium Urine WBC (Auto) Salicylates Acetaminophen 11/22/21 11/22/21 11/23/21 17:29 23:22 04:49 WBC 13.6 H RBC 5.18 H Hgb Hct 45.6 H MCH 25 L MCHC 29 L RDW 17.5 H Plt Count Lymph % (Auto) [facility] % (Auto) Lymph # (Auto) [facility] # (Auto) Seg Neutrophils % Lymphocytes % (Manual) Seg Neutrophils # Seg Neutrophils # Man Lymphocytes # (Manual) D-Dimer ABG pH POC ABG pCO2 POC ABG pO2 ABG pO2 ABG HCO3 ABG O2 Saturation ABG Base Excess ABG Hemoglobin ABG Oxyhemoglobin ABG Sodium ABG Glucose Oxyhemoglobin Carboxyhemoglobin Sodium Potassium Chloride Carbon Dioxide BUN Creatinine Glucose POC Glucose 129 H 171 H Calcium Phosphorus Magnesium AST Lactate Dehydrogenase Albumin Triglycerides Arterial Blood Glucose Arterial Blood Ionized Calcium Urine WBC (Auto) Salicylates Acetaminophen 11/23/21 11/23/21 11/23/21 04:49 11:53 16:22 WBC RBC Hgb Hct MCH MCHC RDW Plt Count Lymph % (Auto) [facility] % (Auto) Lymph # (Auto) [facility] # (Auto) Seg Neutrophils % Lymphocytes % (Manual) Seg Neutrophils # Seg Neutrophils # Man Lymphocytes # (Manual) D-Dimer ABG pH POC ABG pCO2 POC ABG pO2 ABG pO2 61.8 L ABG HCO3 40.9 H ABG O2 Saturation 93.4 L ABG Base Excess 14.6 H ABG Hemoglobin 6.9 L ABG Oxyhemoglobin ABG Sodium ABG Glucose Oxyhemoglobin 90.2 L Carboxyhemoglobin Sodium 146 H Potassium Chloride Carbon Dioxide 36 H BUN 21 H Creatinine Glucose 155 H POC Glucose 166 H Calcium Phosphorus Magnesium AST Lactate Dehydrogenase Albumin Triglycerides Arterial Blood Glucose Arterial Blood Ionized Calcium Urine WBC (Auto) Salicylates Acetaminophen 11/23/21 11/23/21 11/24/21 17:11 23:07 05:03 WBC RBC Hgb Hct MCH MCHC RDW Plt Count Lymph % (Auto) [facility] % (Auto) Lymph # (Auto) [facility] # (Auto) Seg Neutrophils % Lymphocytes % (Manual) Seg Neutrophils # Seg Neutrophils # Man Lymphocytes # (Manual) D-Dimer ABG pH POC ABG pCO2 POC ABG pO2 ABG pO2 ABG HCO3 ABG O2 Saturation ABG Base Excess ABG Hemoglobin ABG Oxyhemoglobin ABG Sodium ABG Glucose Oxyhemoglobin Carboxyhemoglobin Sodium Potassium Chloride Carbon Dioxide BUN Creatinine Glucose POC Glucose 142 H 197 H 183 H Calcium Phosphorus Magnesium AST Lactate Dehydrogenase Albumin Triglycerides Arterial Blood Glucose Arterial Blood Ionized Calcium Urine WBC (Auto) Salicylates Acetaminophen 11/24/21 11/24/21 11/24/21 08:33 08:33 09:00 WBC RBC Hgb Hct 43.6 H MCH 26 L MCHC RDW 18.0 H Plt Count Lymph % (Auto) [facility] % (Auto) Lymph # (Auto) [facility] # (Auto) Seg Neutrophils % Lymphocytes % (Manual) Seg Neutrophils # Seg Neutrophils # Man Lymphocytes # (Manual) D-Dimer ABG pH POC ABG pCO2 POC ABG pO2 ABG pO2 69.1 L ABG HCO3 40.1 H ABG O2 Saturation 93.2 L ABG Base Excess 11.9 H ABG Hemoglobin ABG Oxyhemoglobin ABG Sodium ABG Glucose Oxyhemoglobin 90.3 L Carboxyhemoglobin Sodium Potassium 5.3 H D Chloride Carbon Dioxide 36 H BUN 25 H Creatinine 0.5 L Glucose 185 H POC Glucose Calcium Phosphorus Magnesium AST Lactate Dehydrogenase Albumin Triglycerides Arterial Blood Glucose Arterial Blood Ionized Calcium Urine WBC (Auto) Salicylates Acetaminophen 11/24/21 11/24/21 11/25/21 12:00 18:08 00:50 WBC RBC Hgb Hct MCH MCHC RDW Plt Count Lymph % (Auto) [facility] % (Auto) Lymph # (Auto) [facility] # (Auto) Seg Neutrophils % Lymphocytes % (Manual) Seg Neutrophils # Seg Neutrophils # Man Lymphocytes # (Manual) D-Dimer ABG pH POC ABG pCO2 POC ABG pO2 ABG pO2 67.3 L ABG HCO3 41.6 H 42.7 H ABG O2 Saturation 94.5 L ABG Base Excess 12.3 H 14.7 H ABG Hemoglobin ABG Oxyhemoglobin ABG Sodium ABG Glucose Oxyhemoglobin 93.1 L 91.6 L Carboxyhemoglobin Sodium Potassium Chloride Carbon Dioxide BUN Creatinine Glucose POC Glucose 168 H Calcium Phosphorus Magnesium AST Lactate Dehydrogenase Albumin Triglycerides Arterial Blood Glucose Arterial Blood Ionized Calcium Urine WBC (Auto) Salicylates Acetaminophen 11/25/21 11/25/21 11/25/21 04:57 04:57 14:18 WBC RBC 5.13 H Hgb Hct 45.1 H MCH 26 L MCHC RDW 17.7 H Plt Count Lymph % (Auto) [facility] % (Auto) Lymph # (Auto) [facility] # (Auto) Seg Neutrophils % Lymphocytes % (Manual) Seg Neutrophils # Seg Neutrophils # Man Lymphocytes # (Manual) D-Dimer ABG pH POC ABG pCO2 POC ABG pO2 ABG pO2 65.1 L ABG HCO3 41.7 H ABG O2 Saturation 94.2 L ABG Base Excess 13.4 H ABG Hemoglobin ABG Oxyhemoglobin ABG Sodium ABG Glucose Oxyhemoglobin 91.3 L Carboxyhemoglobin Sodium 146 H Potassium Chloride Carbon Dioxide 38 H BUN 26 H Creatinine 0.5 L Glucose 210 H POC Glucose Calcium Phosphorus Magnesium AST Lactate Dehydrogenase Albumin Triglycerides Arterial Blood Glucose Arterial Blood Ionized Calcium Urine WBC (Auto) Salicylates Acetaminophen 11/25/21 11/26/21 11/26/21 19:22 04:28 04:28 WBC RBC 5.05 H Hgb Hct 44.0 H MCH 26 L MCHC RDW 17.6 H Plt Count Lymph % (Auto) [facility] % (Auto) Lymph # (Auto) [facility] # (Auto) Seg Neutrophils % Lymphocytes % (Manual) Seg Neutrophils # Seg Neutrophils # Man Lymphocytes # (Manual) D-Dimer ABG pH POC ABG pCO2 POC ABG pO2 ABG pO2 ABG HCO3 ABG O2 Saturation ABG Base Excess ABG Hemoglobin ABG Oxyhemoglobin ABG Sodium ABG Glucose Oxyhemoglobin Carboxyhemoglobin Sodium 146 H Potassium Chloride Carbon Dioxide 38 H BUN 30 H Creatinine Glucose 124 H POC Glucose 151 H Calcium 10.5 H Phosphorus Magnesium AST Lactate Dehydrogenase Albumin Triglycerides Arterial Blood Glucose Arterial Blood Ionized Calcium Urine WBC (Auto) Salicylates Acetaminophen 11/26/21 11/26/21 11/27/21 05:50 10:28 08:31 WBC 12.4 H RBC 5.62 H Hgb 14.6 H Hct 48.7 H MCH 26 L MCHC RDW 17.9 H Plt Count 469 H Lymph % (Auto) [facility] % (Auto) Lymph # (Auto) [facility] # (Auto) Seg Neutrophils % Lymphocytes % (Manual) Seg Neutrophils # Seg Neutrophils # Man Lymphocytes # (Manual) D-Dimer ABG pH POC ABG pCO2 POC ABG pO2 ABG pO2 66.5 L ABG HCO3 39.6 H ABG O2 Saturation 92.9 L ABG Base Excess 11.4 H ABG Hemoglobin 16.8 H ABG Oxyhemoglobin ABG Sodium ABG Glucose Oxyhemoglobin 90.3 L Carboxyhemoglobin Sodium Potassium Chloride Carbon Dioxide BUN Creatinine Glucose POC Glucose 121 H Calcium Phosphorus Magnesium AST Lactate Dehydrogenase Albumin Triglycerides Arterial Blood Glucose Arterial Blood Ionized Calcium Urine WBC (Auto) Salicylates Acetaminophen 11/27/21 11/27/21 11/27/21 08:31 09:46 11:49 WBC RBC Hgb Hct MCH MCHC RDW Plt Count Lymph % (Auto) [facility] % (Auto) Lymph # (Auto) [facility] # (Auto) Seg Neutrophils % Lymphocytes % (Manual) Seg Neutrophils # Seg Neutrophils # Man Lymphocytes # (Manual) D-Dimer ABG pH POC ABG pCO2 POC ABG pO2 ABG pO2 ABG HCO3 ABG O2 Saturation ABG Base Excess ABG Hemoglobin ABG Oxyhemoglobin ABG Sodium ABG Glucose Oxyhemoglobin Carboxyhemoglobin Sodium 150 H Potassium Chloride Carbon Dioxide 33 H BUN 31 H Creatinine Glucose 135 H POC Glucose 140 H 153 H Calcium 11.0 H Phosphorus Magnesium AST Lactate Dehydrogenase Albumin Triglycerides Arterial Blood Glucose Arterial Blood Ionized Calcium Urine WBC (Auto) Salicylates Acetaminophen 11/27/21 11/27/21 11/27/21 14:16 17:14 23:25 WBC RBC Hgb Hct MCH MCHC RDW Plt Count Lymph % (Auto) [facility] % (Auto) Lymph # (Auto) [facility] # (Auto) Seg Neutrophils % Lymphocytes % (Manual) Seg Neutrophils # Seg Neutrophils # Man Lymphocytes # (Manual) D-Dimer ABG pH 7.485 H POC ABG pCO2 48.7 H POC ABG pO2 74.5 L ABG pO2 ABG HCO3 ABG O2 Saturation ABG Base Excess ABG Hemoglobin ABG Oxyhemoglobin ABG Sodium 145.5 H ABG Glucose 153 H Oxyhemoglobin Carboxyhemoglobin 1.6 H Sodium Potassium Chloride Carbon Dioxide BUN Creatinine Glucose POC Glucose 142 H 123 H Calcium Phosphorus Magnesium AST Lactate Dehydrogenase Albumin Triglycerides Arterial Blood Glucose 153 H Arterial Blood Ionized Calcium 5.4 H Urine WBC (Auto) Salicylates Acetaminophen 11/28/21 11/28/21 11/28/21 03:38 03:38 05:16 WBC RBC 5.05 H Hgb Hct 43.6 H MCH 26 L MCHC RDW 17.8 H Plt Count Lymph % (Auto) [facility] % (Auto) Lymph # (Auto) [facility] # (Auto) Seg Neutrophils % Lymphocytes % (Manual) Seg Neutrophils # Seg Neutrophils # Man Lymphocytes # (Manual) D-Dimer ABG pH POC ABG pCO2 POC ABG pO2 ABG pO2 ABG HCO3 ABG O2 Saturation ABG Base Excess ABG Hemoglobin ABG Oxyhemoglobin ABG Sodium ABG Glucose Oxyhemoglobin Carboxyhemoglobin Sodium 150 H Potassium Chloride Carbon Dioxide 32 H BUN 51 H Creatinine Glucose 143 H POC Glucose 138 H Calcium 10.5 H Phosphorus Magnesium AST Lactate Dehydrogenase Albumin Triglycerides Arterial Blood Glucose Arterial Blood Ionized Calcium Urine WBC (Auto) Salicylates Acetaminophen 11/28/21 11/28/21 11/29/21 17:01 23:51 03:51 WBC RBC Hgb Hct MCH MCHC RDW Plt Count Lymph % (Auto) [facility] % (Auto) Lymph # (Auto) [facility] # (Auto) Seg Neutrophils % Lymphocytes % (Manual) Seg Neutrophils # Seg Neutrophils # Man Lymphocytes # (Manual) D-Dimer ABG pH POC ABG pCO2 54.1 H POC ABG pO2 70.6 L ABG pO2 ABG HCO3 ABG O2 Saturation ABG Base Excess ABG Hemoglobin ABG Oxyhemoglobin 93.1 L ABG Sodium ABG Glucose 144 H Oxyhemoglobin Carboxyhemoglobin Sodium Potassium Chloride Carbon Dioxide BUN Creatinine Glucose POC Glucose 145 H 130 H Calcium Phosphorus Magnesium AST Lactate Dehydrogenase Albumin Triglycerides Arterial Blood Glucose 144 H Arterial Blood Ionized Calcium Urine WBC (Auto) Salicylates Acetaminophen 11/29/21 11/29/21 11/29/21 05:51 05:51 12:09 WBC 11.1 H RBC Hgb Hct MCH 26 L MCHC RDW 17.8 H Plt Count Lymph % (Auto) [facility] % (Auto) Lymph # (Auto) [facility] # (Auto) Seg Neutrophils % Lymphocytes % (Manual) Seg Neutrophils # Seg Neutrophils # Man Lymphocytes # (Manual) D-Dimer ABG pH POC ABG pCO2 POC ABG pO2 ABG pO2 ABG HCO3 ABG O2 Saturation ABG Base Excess ABG Hemoglobin ABG Oxyhemoglobin ABG Sodium ABG Glucose Oxyhemoglobin Carboxyhemoglobin Sodium Potassium Chloride Carbon Dioxide 31 H BUN 42 H Creatinine Glucose 133 H POC Glucose 157 H Calcium Phosphorus Magnesium AST Lactate Dehydrogenase Albumin Triglycerides Arterial Blood Glucose Arterial Blood Ionized Calcium Urine WBC (Auto) Salicylates Acetaminophen 11/29/21 11/30/21 11/30/21 17:27 00:23 04:42 WBC RBC 5.05 H Hgb Hct 43.6 H MCH 26 L MCHC RDW 17.5 H Plt Count Lymph % (Auto) [facility] % (Auto) Lymph # (Auto) [facility] # (Auto) Seg Neutrophils % Lymphocytes % (Manual) Seg Neutrophils # Seg Neutrophils # Man Lymphocytes # (Manual) D-Dimer ABG pH POC ABG pCO2 POC ABG pO2 ABG pO2 ABG HCO3 ABG O2 Saturation ABG Base Excess ABG Hemoglobin ABG Oxyhemoglobin ABG Sodium ABG Glucose Oxyhemoglobin Carboxyhemoglobin Sodium Potassium Chloride Carbon Dioxide BUN Creatinine Glucose POC Glucose 164 H 192 H Calcium Phosphorus Magnesium AST Lactate Dehydrogenase Albumin Triglycerides Arterial Blood Glucose Arterial Blood Ionized Calcium Urine WBC (Auto) Salicylates Acetaminophen 11/30/21 11/30/21 11/30/21 04:42 11:27 12:04 WBC RBC Hgb Hct MCH MCHC RDW Plt Count Lymph % (Auto) [facility] % (Auto) Lymph # (Auto) [facility] # (Auto) Seg Neutrophils % Lymphocytes % (Manual) Seg Neutrophils # Seg Neutrophils # Man Lymphocytes # (Manual) D-Dimer ABG pH POC ABG pCO2 60.0 H POC ABG pO2 68.3 L ABG pO2 ABG HCO3 ABG O2 Saturation ABG Base Excess ABG Hemoglobin ABG Oxyhemoglobin 90.9 L ABG Sodium 145.1 H ABG Glucose 122 H Oxyhemoglobin Carboxyhemoglobin Sodium Potassium Chloride Carbon Dioxide BUN 32 H Creatinine 0.5 L Glucose 178 H POC Glucose 156 H Calcium Phosphorus Magnesium AST Lactate Dehydrogenase Albumin Triglycerides Arterial Blood Glucose 122 H Arterial Blood Ionized Calcium Urine WBC (Auto) Salicylates Acetaminophen 11/30/21 11/30/21 12/01/21 17:35 23:51 04:00 WBC 13.8 H RBC Hgb Hct MCH 26 L MCHC RDW 17.6 H Plt Count 455 H Lymph % (Auto) [facility] % (Auto) Lymph # (Auto) [facility] # (Auto) Seg Neutrophils % Lymphocytes % (Manual) Seg Neutrophils # Seg Neutrophils # Man Lymphocytes # (Manual) D-Dimer ABG pH POC ABG pCO2 POC ABG pO2 ABG pO2 ABG HCO3 ABG O2 Saturation ABG Base Excess ABG Hemoglobin ABG Oxyhemoglobin ABG Sodium ABG Glucose Oxyhemoglobin Carboxyhemoglobin Sodium Potassium Chloride Carbon Dioxide BUN Creatinine Glucose POC Glucose 124 H 158 H Calcium Phosphorus Magnesium AST Lactate Dehydrogenase Albumin Triglycerides Arterial Blood Glucose Arterial Blood Ionized Calcium Urine WBC (Auto) Salicylates Acetaminophen 12/01/21 12/01/21 12/01/21 04:00 06:03 11:13 WBC RBC Hgb Hct MCH MCHC RDW Plt Count Lymph % (Auto) [facility] % (Auto) Lymph # (Auto) [facility] # (Auto) Seg Neutrophils % Lymphocytes % (Manual) Seg Neutrophils # Seg Neutrophils # Man Lymphocytes # (Manual) D-Dimer ABG pH POC ABG pCO2 POC ABG pO2 ABG pO2 ABG HCO3 ABG O2 Saturation ABG Base Excess ABG Hemoglobin ABG Oxyhemoglobin ABG Sodium ABG Glucose Oxyhemoglobin Carboxyhemoglobin Sodium Potassium Chloride Carbon Dioxide BUN 36 H Creatinine 0.5 L Glucose 188 H POC Glucose 178 H 121 H Calcium Phosphorus Magnesium AST Lactate Dehydrogenase Albumin Triglycerides Arterial Blood Glucose Arterial Blood Ionized Calcium Urine WBC (Auto) Salicylates Acetaminophen 12/01/21 12/01/21 12/01/21 11:42 16:54 23:43 WBC RBC Hgb Hct MCH MCHC RDW Plt Count Lymph % (Auto) [facility] % (Auto) Lymph # (Auto) [facility] # (Auto) Seg Neutrophils % Lymphocytes % (Manual) Seg Neutrophils # Seg Neutrophils # Man Lymphocytes # (Manual) D-Dimer ABG pH POC ABG pCO2 POC ABG pO2 ABG pO2 71.0 L ABG HCO3 32.3 H ABG O2 Saturation 94.5 L ABG Base Excess 5.7 H ABG Hemoglobin ABG Oxyhemoglobin ABG Sodium ABG Glucose Oxyhemoglobin 92.6 L Carboxyhemoglobin Sodium Potassium Chloride Carbon Dioxide BUN Creatinine Glucose POC Glucose 129 H 115 H Calcium Phosphorus Magnesium AST Lactate Dehydrogenase Albumin Triglycerides Arterial Blood Glucose Arterial Blood Ionized Calcium Urine WBC (Auto) Salicylates Acetaminophen 12/02/21 12/02/21 12/02/21 04:55 04:55 05:19 WBC RBC Hgb Hct MCH 26 L MCHC RDW 18.1 H Plt Count 476 H Lymph % (Auto) [facility] % (Auto) Lymph # (Auto) [facility] # (Auto) Seg Neutrophils % Lymphocytes % (Manual) Seg Neutrophils # Seg Neutrophils # Man Lymphocytes # (Manual) D-Dimer ABG pH POC ABG pCO2 POC ABG pO2 ABG pO2 ABG HCO3 ABG O2 Saturation ABG Base Excess ABG Hemoglobin ABG Oxyhemoglobin ABG Sodium ABG Glucose Oxyhemoglobin Carboxyhemoglobin Sodium Potassium Chloride Carbon Dioxide 33 H BUN 30 H Creatinine 0.5 L Glucose 140 H POC Glucose 127 H Calcium Phosphorus Magnesium AST Lactate Dehydrogenase Albumin Triglycerides Arterial Blood Glucose Arterial Blood Ionized Calcium Urine WBC (Auto) Salicylates Acetaminophen 12/02/21 12/02/21 12/02/21 11:33 17:19 23:49 WBC RBC Hgb Hct MCH MCHC RDW Plt Count Lymph % (Auto) [facility] % (Auto) Lymph # (Auto) [facility] # (Auto) Seg Neutrophils % Lymphocytes % (Manual) Seg Neutrophils # Seg Neutrophils # Man Lymphocytes # (Manual) D-Dimer ABG pH POC ABG pCO2 POC ABG pO2 ABG pO2 ABG HCO3 ABG O2 Saturation ABG Base Excess ABG Hemoglobin ABG Oxyhemoglobin ABG Sodium ABG Glucose Oxyhemoglobin Carboxyhemoglobin Sodium Potassium Chloride Carbon Dioxide BUN Creatinine Glucose POC Glucose 118 H 139 H 140 H Calcium Phosphorus Magnesium AST Lactate Dehydrogenase Albumin Triglycerides Arterial Blood Glucose Arterial Blood Ionized Calcium Urine WBC (Auto) Salicylates Acetaminophen 12/03/21 12/03/21 12/03/21 04:52 04:52 05:03 WBC RBC 5.15 H Hgb Hct 44.2 H MCH 27 L MCHC RDW 17.8 H Plt Count 566 H Lymph % (Auto) [facility] % (Auto) Lymph # (Auto) [facility] # (Auto) Seg Neutrophils % Lymphocytes % (Manual) Seg Neutrophils # Seg Neutrophils # Man Lymphocytes # (Manual) D-Dimer ABG pH POC ABG pCO2 POC ABG pO2 ABG pO2 ABG HCO3 ABG O2 Saturation ABG Base Excess ABG Hemoglobin ABG Oxyhemoglobin ABG Sodium ABG Glucose Oxyhemoglobin Carboxyhemoglobin Sodium Potassium Chloride Carbon Dioxide BUN 22 H Creatinine 0.4 L Glucose 142 H POC Glucose 142 H Calcium Phosphorus Magnesium AST Lactate Dehydrogenase Albumin Triglycerides Arterial Blood Glucose Arterial Blood Ionized Calcium Urine WBC (Auto) Salicylates Acetaminophen 12/03/21 12/03/21 12/04/21 11:16 16:11 04:48 WBC 12.1 H RBC 5.58 H Hgb Hct 47.8 H MCH 26 L MCHC RDW 18.4 H Plt Count 576 H Lymph % (Auto) [facility] % (Auto) Lymph # (Auto) [facility] # (Auto) Seg Neutrophils % Lymphocytes % (Manual) Seg Neutrophils # Seg Neutrophils # Man Lymphocytes # (Manual) D-Dimer ABG pH POC ABG pCO2 POC ABG pO2 ABG pO2 ABG HCO3 ABG O2 Saturation ABG Base Excess ABG Hemoglobin ABG Oxyhemoglobin ABG Sodium ABG Glucose Oxyhemoglobin Carboxyhemoglobin Sodium Potassium Chloride Carbon Dioxide BUN Creatinine Glucose POC Glucose 147 H 140 H Calcium Phosphorus Magnesium AST Lactate Dehydrogenase Albumin Triglycerides Arterial Blood Glucose Arterial Blood Ionized Calcium Urine WBC (Auto) Salicylates Acetaminophen 12/04/21 12/04/21 12/04/21 04:48 05:42 11:54 WBC RBC Hgb Hct MCH MCHC RDW Plt Count Lymph % (Auto) [facility] % (Auto) Lymph # (Auto) [facility] # (Auto) Seg Neutrophils % Lymphocytes % (Manual) Seg Neutrophils # Seg Neutrophils # Man Lymphocytes # (Manual) D-Dimer ABG pH POC ABG pCO2 POC ABG pO2 ABG pO2 ABG HCO3 ABG O2 Saturation ABG Base Excess ABG Hemoglobin ABG Oxyhemoglobin ABG Sodium ABG Glucose Oxyhemoglobin Carboxyhemoglobin Sodium Potassium Chloride Carbon Dioxide BUN 19 H Creatinine 0.5 L Glucose 123 H POC Glucose 111 H 121 H Calcium Phosphorus Magnesium AST Lactate Dehydrogenase Albumin Triglycerides Arterial Blood Glucose Arterial Blood Ionized Calcium Urine WBC (Auto) Salicylates Acetaminophen 12/05/21 12/05/21 12/05/21 07:53 08:02 08:02 WBC 11.3 H RBC 5.94 H Hgb 15.3 H Hct 50.9 H MCH 26 L MCHC RDW 18.3 H Plt Count 611 H Lymph % (Auto) [facility] % (Auto) Lymph # (Auto) [facility] # (Auto) Seg Neutrophils % Lymphocytes % (Manual) Seg Neutrophils # Seg Neutrophils # Man Lymphocytes # (Manual) D-Dimer ABG pH POC ABG pCO2 POC ABG pO2 ABG pO2 ABG HCO3 ABG O2 Saturation ABG Base Excess ABG Hemoglobin ABG Oxyhemoglobin ABG Sodium ABG Glucose Oxyhemoglobin Carboxyhemoglobin Sodium Potassium Chloride Carbon Dioxide BUN 19 H Creatinine 0.5 L Glucose POC Glucose 112 H Calcium Phosphorus Magnesium AST Lactate Dehydrogenase Albumin Triglycerides Arterial Blood Glucose Arterial Blood Ionized Calcium Urine WBC (Auto) Salicylates Acetaminophen 12/05/21 12/05/21 12/06/21 11:10 15:59 07:27 WBC RBC Hgb Hct MCH MCHC RDW Plt Count Lymph % (Auto) [facility] % (Auto) Lymph # (Auto) [facility] # (Auto) Seg Neutrophils % Lymphocytes % (Manual) Seg Neutrophils # Seg Neutrophils # Man Lymphocytes # (Manual) D-Dimer ABG pH POC ABG pCO2 POC ABG pO2 ABG pO2 ABG HCO3 ABG O2 Saturation ABG Base Excess ABG Hemoglobin ABG Oxyhemoglobin ABG Sodium ABG Glucose Oxyhemoglobin Carboxyhemoglobin Sodium Potassium Chloride Carbon Dioxide BUN Creatinine Glucose POC Glucose 125 H 108 H 112 H Calcium Phosphorus Magnesium AST Lactate Dehydrogenase Albumin Triglycerides Arterial Blood Glucose Arterial Blood Ionized Calcium Urine WBC (Auto) Salicylates Acetaminophen 12/06/21 12/06/21 12/06/21 11:45 11:56 16:26 WBC RBC Hgb Hct MCH MCHC RDW Plt Count Lymph % (Auto) [facility] % (Auto) Lymph # (Auto) [facility] # (Auto) Seg Neutrophils % Lymphocytes % (Manual) Seg Neutrophils # Seg Neutrophils # Man Lymphocytes # (Manual) D-Dimer ABG pH POC ABG pCO2 POC ABG pO2 ABG pO2 75.9 L ABG HCO3 27.1 H ABG O2 Saturation ABG Base Excess ABG Hemoglobin ABG Oxyhemoglobin ABG Sodium ABG Glucose Oxyhemoglobin 93.7 L Carboxyhemoglobin Sodium Potassium Chloride Carbon Dioxide BUN Creatinine Glucose POC Glucose 125 H 139 H Calcium Phosphorus Magnesium AST Lactate Dehydrogenase Albumin Triglycerides Arterial Blood Glucose Arterial Blood Ionized Calcium Urine WBC (Auto) Salicylates Acetaminophen 12/06/21 12/06/21 12/07/21 21:48 22:12 08:49 WBC RBC Hgb Hct MCH MCHC RDW Plt Count Lymph % (Auto) [facility] % (Auto) Lymph # (Auto) [facility] # (Auto) Seg Neutrophils % Lymphocytes % (Manual) Seg Neutrophils # Seg Neutrophils # Man Lymphocytes # (Manual) D-Dimer ABG pH POC ABG pCO2 POC ABG pO2 ABG pO2 ABG HCO3 ABG O2 Saturation ABG Base Excess ABG Hemoglobin ABG Oxyhemoglobin ABG Sodium ABG Glucose Oxyhemoglobin Carboxyhemoglobin Sodium Potassium Chloride Carbon Dioxide BUN Creatinine Glucose POC Glucose 130 H 129 H 129 H Calcium Phosphorus Magnesium AST Lactate Dehydrogenase Albumin Triglycerides Arterial Blood Glucose Arterial Blood Ionized Calcium Urine WBC (Auto) Salicylates Acetaminophen 12/07/21 12/08/21 12/08/21 11:38 07:47 11:18 WBC RBC Hgb Hct MCH MCHC RDW Plt Count Lymph % (Auto) [facility] % (Auto) Lymph # (Auto) [facility] # (Auto) Seg Neutrophils % Lymphocytes % (Manual) Seg Neutrophils # Seg Neutrophils # Man Lymphocytes # (Manual) D-Dimer ABG pH POC ABG pCO2 POC ABG pO2 ABG pO2 ABG HCO3 ABG O2 Saturation ABG Base Excess ABG Hemoglobin ABG Oxyhemoglobin ABG Sodium ABG Glucose Oxyhemoglobin Carboxyhemoglobin Sodium Potassium Chloride Carbon Dioxide BUN Creatinine Glucose POC Glucose 146 H 109 H 131 H Calcium Phosphorus Magnesium AST Lactate Dehydrogenase Albumin Triglycerides Arterial Blood Glucose Arterial Blood Ionized Calcium Urine WBC (Auto) Salicylates Acetaminophen 12/08/21 12/09/21 12/09/21 20:12 06:23 06:23 WBC 13.1 H RBC 6.18 H Hgb 16.3 H Hct 53.7 H MCH 26 L MCHC RDW 18.9 H Plt Count 726 H Lymph % (Auto) [facility] % (Auto) Lymph # (Auto) [facility] # (Auto) 0.9 H Seg Neutrophils % 75.5 H Lymphocytes % (Manual) Seg Neutrophils # 9.9 H Seg Neutrophils # Man Lymphocytes # (Manual) D-Dimer ABG pH POC ABG pCO2 POC ABG pO2 ABG pO2 ABG HCO3 ABG O2 Saturation ABG Base Excess ABG Hemoglobin ABG Oxyhemoglobin ABG Sodium ABG Glucose Oxyhemoglobin Carboxyhemoglobin Sodium 149 H D Potassium Chloride 110.3 H Carbon Dioxide BUN 23 H Creatinine Glucose 109 H POC Glucose 106 H Calcium Phosphorus Magnesium AST 47 H Lactate Dehydrogenase Albumin 3.8 L Triglycerides Arterial Blood Glucose Arterial Blood Ionized Calcium Urine WBC (Auto) Salicylates Acetaminophen 12/09/21 12/09/21 12/09/21 08:13 12:40 17:35 WBC RBC Hgb Hct MCH MCHC RDW Plt Count Lymph % (Auto) [facility] % (Auto) Lymph # (Auto) [facility] # (Auto) Seg Neutrophils % Lymphocytes % (Manual) Seg Neutrophils # Seg Neutrophils # Man Lymphocytes # (Manual) D-Dimer ABG pH POC ABG pCO2 POC ABG pO2 ABG pO2 ABG HCO3 ABG O2 Saturation ABG Base Excess ABG Hemoglobin ABG Oxyhemoglobin ABG Sodium ABG Glucose Oxyhemoglobin Carboxyhemoglobin Sodium Potassium Chloride Carbon Dioxide BUN Creatinine Glucose POC Glucose 110 H 135 H 117 H Calcium Phosphorus Magnesium AST Lactate Dehydrogenase Albumin Triglycerides Arterial Blood Glucose Arterial Blood Ionized Calcium Urine WBC (Auto) Salicylates Acetaminophen 12/09/21 12/10/21 12/10/21 21:01 07:45 16:38 WBC RBC Hgb Hct MCH MCHC RDW Plt Count Lymph % (Auto) [facility] % (Auto) Lymph # (Auto) [facility] # (Auto) Seg Neutrophils % Lymphocytes % (Manual) Seg Neutrophils # Seg Neutrophils # Man Lymphocytes # (Manual) D-Dimer ABG pH POC ABG pCO2 POC ABG pO2 ABG pO2 ABG HCO3 ABG O2 Saturation ABG Base Excess ABG Hemoglobin ABG Oxyhemoglobin ABG Sodium ABG Glucose Oxyhemoglobin Carboxyhemoglobin Sodium Potassium Chloride Carbon Dioxide BUN Creatinine Glucose POC Glucose 147 H 133 H 116 H Calcium Phosphorus Magnesium AST Lactate Dehydrogenase Albumin Triglycerides Arterial Blood Glucose Arterial Blood Ionized Calcium Urine WBC (Auto) Salicylates Acetaminophen 12/10/21 12/11/21 12/11/21 20:25 07:46 09:25 WBC 11.6 H RBC 5.61 H Hgb 14.8 H Hct 47.9 H MCH 26 L MCHC RDW 18.2 H Plt Count 632 H Lymph % (Auto) [facility] % (Auto) Lymph # (Auto) [facility] # (Auto) Seg Neutrophils % 74.8 H Lymphocytes % (Manual) Seg Neutrophils # 8.7 H Seg Neutrophils # Man Lymphocytes # (Manual) D-Dimer ABG pH POC ABG pCO2 POC ABG pO2 ABG pO2 ABG HCO3 ABG O2 Saturation ABG Base Excess ABG Hemoglobin ABG Oxyhemoglobin ABG Sodium ABG Glucose Oxyhemoglobin Carboxyhemoglobin Sodium Potassium Chloride Carbon Dioxide BUN Creatinine Glucose POC Glucose 119 H 124 H Calcium Phosphorus Magnesium AST Lactate Dehydrogenase Albumin Triglycerides Arterial Blood Glucose Arterial Blood Ionized Calcium Urine WBC (Auto) Salicylates Acetaminophen 12/11/21 12/11/21 12/11/21 09:25 11:54 16:38 WBC RBC Hgb Hct MCH MCHC RDW Plt Count Lymph % (Auto) [facility] % (Auto) Lymph # (Auto) [facility] # (Auto) Seg Neutrophils % Lymphocytes % (Manual) Seg Neutrophils # Seg Neutrophils # Man Lymphocytes # (Manual) D-Dimer ABG pH POC ABG pCO2 POC ABG pO2 ABG pO2 ABG HCO3 ABG O2 Saturation ABG Base Excess ABG Hemoglobin ABG Oxyhemoglobin ABG Sodium ABG Glucose Oxyhemoglobin Carboxyhemoglobin Sodium 136 L D Potassium 3.3 L Chloride Carbon Dioxide BUN Creatinine 0.5 L Glucose 131 H POC Glucose 118 H 114 H Calcium Phosphorus Magnesium AST Lactate Dehydrogenase Albumin 3.6 L Triglycerides Arterial Blood Glucose Arterial Blood Ionized Calcium Urine WBC (Auto) Salicylates Acetaminophen 12/11/21 12/12/21 12/12/21 20:31 07:36 12:04 WBC RBC Hgb Hct MCH MCHC RDW Plt Count Lymph % (Auto) [facility] % (Auto) Lymph # (Auto) [facility] # (Auto) Seg Neutrophils % Lymphocytes % (Manual) Seg Neutrophils # Seg Neutrophils # Man Lymphocytes # (Manual) D-Dimer ABG pH POC ABG pCO2 POC ABG pO2 ABG pO2 ABG HCO3 ABG O2 Saturation ABG Base Excess ABG Hemoglobin ABG Oxyhemoglobin ABG Sodium ABG Glucose Oxyhemoglobin Carboxyhemoglobin Sodium Potassium Chloride Carbon Dioxide BUN Creatinine Glucose POC Glucose 126 H 131 H 145 H Calcium Phosphorus Magnesium AST Lactate Dehydrogenase Albumin Triglycerides Arterial Blood Glucose Arterial Blood Ionized Calcium Urine WBC (Auto) Salicylates Acetaminophen Allied health notes reviewed: nursing
[2021-12-12] MEDS: ENOXAPARIN 40 MG/0.4 ML INJ SUB-Q SCH (21:59)
[2021-12-13] MEDS: INSULIN LISPRO 100 UNIT/ML SUB-Q SCH ×4 (08:45→22:48)
[2021-12-13] MEDS: BUDESONIDE 0.5 MG/2 ML NEBU IH SCH ×2 (09:11→20:16)
[2021-12-13] MEDS: ARFORMOTEROL 15 MCG/2 ML NEBU IH SCH ×2 (09:12→20:15)
--- NOTE | 2021-12-13 11:26 | Consultation ---
History of Present Illness - Reason for Consult Consult date: 12/13/21 Reason for consult: AMS - Chief Complaint Chief complaint: Altered mental Status Unresponsiveness - History of Present Psychiatric Illness The patient was seen today. She is a 81y/o female who was initially admitted into the hospital for unresponsiveness and altered mental status. At some point the patient was intubated. She has a history of CAD, CHF, pulmonary hypertension, and COPD. During my evaluation the patient is lying in bed awake. She calm. She is confused. She is in restraints. The patient has poor insight and unable to be engaged in the evaluation. PAST PSYCHIATRIC HISTORY: Unable to assess PAST MEDICAL HISTOtRY: unknown Family Psychiatric History: None reported or documented SOCIAL HISTORY Unable to assess REVIEW OF SYSTEMS unable to assess MENTAL STATUS EXAMINATION unable to assess Assessment (1) Acute Psychosis Treatment Plan No meds started at this time Medical: per primary Disposition: Do not recommend acute psychiatric inpatient treatment. Due to this patient's complex medical conditions, it is my clinical opinion that this patient would not benefit from psychiatric inpatient treatment at this time. She would likely benefit more from a SNF placement. Will sign off. Thanks Case staffed with Dr. Simmons Medications and Allergies Allergies Allergy/AdvReac Type Severity Reaction Status Date / Time Steroids Allergy Severe Angioedema Uncoded 11/19/21 01:18 Home Medications Medication Instructions Recorded Confirmed Last Taken Type Gabapentin [Neurontin] 800 mg PO BID 12/31/20 12/04/21 Unknown History carvediloL [Coreg] 12.5 mg PO BID tablet 01/01/21 12/04/21 Unknown Rx HYDROcodone/APAP 10-325 [[place] 1 each PO Q8HR PRN 01/21/21 12/04/21 Unknown History 10-325 mg TAB] Losartan [Cozaar] 100 mg PO QDAY 01/21/21 12/04/21 Unknown History Pantoprazole [Protonix TAB] 40 mg PO BID 01/21/21 12/07/21 Unknown History amLODIPine 10 mg PO QDAY 01/21/21 12/04/21 Unknown History Aspirin EC [Halfprin EC] 81 mg PO QDAY #30 tablet 01/24/21 12/04/21 Unknown Rx ALBUTEROL NEB's [Proventil 0.083% 2.5 mg IH Q6H PRN 12/07/21 12/07/21 Unknown History NEBS] AtorvaSTATin [Lipitor] 40 mg PO QHS 12/07/21 12/07/21 Unknown History Fluticasone [Flonase] 2 spray NS QDAY 12/07/21 12/07/21 Unknown History Furosemide [Lasix TAB] 40 mg PO QDAY PRN 12/07/21 12/07/21 Unknown History Gabapentin [Neurontin] 1,600 mg PO QHS 12/07/21 12/07/21 Unknown History Isosorbide Mononitrate [Isosorbide 120 mg PO QAM 12/07/21 12/07/21 Unknown History Mononitrate ER] Loratadine [Allergy Relief] 10 mg PO QDAY 12/07/21 12/07/21 Unknown History Potassium Chloride [K-Dur] 20 meq PO QDAY PRN 12/07/21 12/07/21 Unknown History methIMAzole [Methimazole] 5 mg PO QDAY 12/07/21 12/07/21 Unknown History Active Meds: Active Medications Acetaminophen (Acetaminophen 650 Mg Rect Supp) 650 mg KS Q6H PRN PRN Reason: Pain MILD(1-3)/Fever >100.5/MONTIEL Last Admin: 12/09/21 13:11 Dose: 650 mg Albuterol (Albuterol 2.5 Mg/3 Ml Nebu) 2.5 mg IH Q4HRT PRN PRN Reason: Shortness Of Breath Last Admin: 12/07/21 15:45 Dose: 2.5 mg Amlodipine Besylate (Amlodipine 10 Mg Tab) 10 mg PO DAILY [facility] Last Admin: 12/12/21 10:47 Dose: 10 mg Arformoterol Tartrate (Arformoterol 15 Mcg/2 Ml Nebu) 15 mcg IH Q12HRT [facility] Last Admin: 12/13/21 09:12 Dose: 15 mcg Aspirin (Aspirin Ec 81 Mg Tab) 81 mg PO QDAY [facility] Last Admin: 12/12/21 10:45 Dose: 81 mg Budesonide (Budesonide 0.5 Mg/2 Ml Nebu) 0.5 mg IH Q12HRT [facility] Last Admin: 12/13/21 09:11 Dose: 0.5 mg Carvedilol (Carvedilol 12.5 Mg Tab) 12.5 mg FEEDTUBE BID [facility] Last Admin: 12/12/21 21:59 Dose: 12.5 mg Dextrose (Dextrose 50% In Water (25gm) 50 Ml Syringe) 50 ml IV Q30MIN PRN; Protocol PRN Reason: Hypoglycemia Enoxaparin Sodium (Enoxaparin 40 Mg/0.4 Ml Inj) 40 mg SUB-Q QDAY@2200 [facility]; Protocol Last Admin: 12/12/21 21:59 Dose: 40 mg Famotidine (Famotidine 20 Mg Tab) 20 mg FEEDTUBE BID [facility] Last Admin: 12/12/21 21:59 Dose: 20 mg Hydralazine HCl (Hydralazine 20 Mg/1 Ml Inj) 10 mg IV Q4HR PRN PRN Reason: Hypertension Last Admin: 12/11/21 16:56 Dose: 10 mg Hydrophilic Ointment (Lip Therapy Vaseline) 1 applic TP Q2HR PRN PRN Reason: Dry Lips Insulin Human Lispro (Insulin Lispro 100 Unit/Ml) 0 unit SUB-Q ACHS [facility]; Protocol Last Admin: 12/12/21 21:59 Dose: Not Given Isosorbide Mononitrate (Isosorbide Mononitrate Er 60 Mg Tab) 60 mg PO QDAY [facility] Last Admin: 12/12/21 10:45 Dose: 60 mg Losartan Potassium (Losartan 50 Mg Tab) 100 mg PO QDAY [facility] Last Admin: 12/12/21 10:47 Dose: 100 mg Magnesium Hydroxide (Magnesium Hydroxide (Mom) Oral Liqd Udc) 30 ml PO Q4H PRN PRN Reason: Constipation Senna/Docusate Sodium (Sennosides/Docusate Sodium 8.6/50 Mg Tab) 1 tab FEEDTUBE BID [facility] Last Admin: 12/12/21 21:59 Dose: 1 tab Mental Status Exam - Vital signs Last Vital Signs Temp 98.1 F 12/13/21 07:30 Pulse 82 12/13/21 08:00 Resp 18 12/13/21 08:00 BP 165/93 12/13/21 07:30 Pulse Ox 98 12/13/21 09:18 Results Result Diagrams: 12/11/21 09:25 12/11/21 09:25 Abnormal lab results 12/12/21 12/12/21 12/12/21 Range/Units 12:04 17:07 21:13 POC Glucose 145 H 118 H 110 H (70-105) mg/dL 12/13/21 Range/Units 07:29 POC Glucose 115 H (70-105) mg/dL All other labs normal.
--- NOTE | 2021-12-13 12:48 | Progress Note ---
Assessment and Plan - Patient Problems (1) Sepsis Current Visit: Yes Status: Acute Plan to address problem: Resolved status post full course antibiotic therapy. (2) Vascular dementia Current Visit: Yes Status: Acute Qualifiers: Dementia behavioral disturbance: without behavioral disturbance Qualified Code(s): F01.50 - Vascular dementia without behavioral disturbance Plan to address problem: Verbal prompting, verbal redirection, benzodiazepine therapy as clinically indicated. (3) Cerebral atherosclerosis Current Visit: Yes Status: Acute Plan to address problem: Risk factor reduction, antiplatelet therapy as clinically indicated (4) Acute respiratory failure Current Visit: No Status: Acute Plan to address problem: Resolved, continuous supplemental oxygen as clinically indicated. (5) Debility Current Visit: Yes Status: Acute Plan to address problem: Supportive care, continue medical management. (6) Pneumonia Current Visit: Yes Status: Acute Plan to address problem: Resolved with full course antibiotic therapy. (7) DVT prophylaxis Current Visit: Yes Status: Acute Plan to address problem: SCD to bilateral lower extremities while in bed (8) Advance care planning Current Visit: Yes Status: Acute Plan to address problem: Disease education conducted, care plan discussed, diagnosis discussed prognosis discussed, patient full code. He has management consulted. Patient pending custodial facility placement. +30 minutes. History Interval history: 81 YO Female HD #24 with Vascular Dementia, Cerebral Atherosclerosis, Pneumonia complicated by Respiratory Failure and Sepsis requiring intubation and ventilatory support, Encephalopathy, Debility. Patient is currently bedbound, nonambulatory and has a palliative performance score of 30% and require 6/6 assistance with activities of daily living. No acute decompensation overnight. No reported nursing events. Patient remains confused with tangential thinking. Case management consulted. Patient is medically optimized at this time. Patient is pending rehab placement. Hospitalist Physical - Constitutional Vitals: Temp Pulse Resp BP Pulse Ox 98.1 F 80 18 152/91 97 12/13/21 11:25 12/13/21 11:25 12/13/21 11:25 12/13/21 11:25 12/13/21 11:25 General appearance: Present: no acute distress, obese, other (Very confused with the wrist restraints.) - EENT Eyes: Present: PERRL ENT: hearing decreased - Neck Neck: Present: supple - Respiratory Respiratory effort: labored Respiratory: bilateral: diminished - Cardiovascular Rhythm: regular Heart Sounds: Present: S1 & S2 - Extremities Extremities: no ischemia Peripheral Pulses: within normal limits - Abdominal General gastrointestinal: soft, non-tender, non-distended - Integumentary Integumentary: Present: clear, dry - Psychiatric Psychiatric: no appropriate mood/affect, no intact judgment & insight, no memory intact - Neurologic Neurologic: CNII-XII intact, no focal deficits, moves all extremities, no gait normal HEART Score - HEART Score Troponin: Troponin T < 0.010 ng/mL (0.00-0.029) 11/18/21 03:25 Results - Labs CBC & Chem 7: 12/11/21 09:25 12/11/21 09:25 Labs: Laboratory Last Values WBC 11.6 K/mm3 (4.5-11.0) H 12/11/21 09:25 RBC 5.61 M/mm3 (3.65-5.03) H 12/11/21 09:25 Hgb 14.8 gm/dl (10.1-14.3) H 12/11/21 09:25 Hct 47.9 % (30.3-42.9) H 12/11/21 09:25 MCV 85 fl (79-97) 12/11/21 09:25 MCH 26 pg (28-32) L 12/11/21 09:25 MCHC 31 % (30-34) 12/11/21 09:25 RDW 18.2 % (13.2-15.2) H 12/11/21 09:25 Plt Count 632 K/mm3 (140-440) H 12/11/21 09:25 Lymph % (Auto) 15.2 % (13.4-35.0) 12/11/21 09:25 [place] % (Auto) 6.8 % (0.0-7.3) 12/11/21 09:25 Eos % (Auto) 2.3 % (0.0-4.3) 12/11/21 09:25 Baso % (Auto) 0.9 % (0.0-1.8) 12/11/21 09:25 Lymph # (Auto) 1.8 K/mm3 (1.2-5.4) 12/11/21 09:25 [place] # (Auto) 0.8 K/mm3 (0.0-0.8) 12/11/21 09:25 Eos # (Auto) 0.3 K/mm3 (0.0-0.4) 12/11/21 09:25 Baso # (Auto) 0.1 K/mm3 (0.0-0.1) 12/11/21 09:25 Add Manual Diff Complete 12/09/21 06:23 Total Counted 100 11/18/21 00:19 Seg Neutrophils % 74.8 % (40.0-70.0) H 12/11/21 09:25 Lymphocytes % (Manual) 4.0 % (13.4-35.0) L 11/18/21 00:19 Monocytes % (Manual) 2.0 % (0.0-7.3) 11/18/21 00:19 Nucleated RBC % Not Reportable 11/18/21 00:19 Seg Neutrophils # 8.7 K/mm3 (1.8-7.7) H 12/11/21 09:25 Seg Neutrophils # Man 14.7 K/mm3 (1.8-7.7) H 11/18/21 00:19 Band Neutrophils # 0.0 K/mm3 11/18/21 00:19 Lymphocytes # (Manual) 0.6 K/mm3 (1.2-5.4) L 11/18/21 00:19 Abs React Lymphs (Man) 0.0 K/mm3 11/18/21 00:19 Monocytes # (Manual) 0.3 K/mm3 (0.0-0.8) 11/18/21 00:19 Eosinophils # (Manual) 0.0 K/mm3 (0.0-0.4) 11/18/21 00:19 Basophils # (Manual) 0.0 K/mm3 (0.0-0.1) 11/18/21 00:19 Metamyelocytes # 0.0 K/mm3 11/18/21 00:19 Myelocytes # 0.0 K/mm3 11/18/21 00:19 Promyelocytes # 0.0 K/mm3 11/18/21 00:19 Blast Cells # 0.0 K/mm3 11/18/21 00:19 WBC Morphology Not Reportable 11/18/21 00:19 Hypersegmented Neuts Not Reportable 11/18/21 00:19 Hyposegmented Neuts Not Reportable 11/18/21 00:19 Hypogranular Neuts Not Reportable 11/18/21 00:19 Smudge Cells Not Reportable 11/18/21 00:19 Toxic Granulation Not Reportable 11/18/21 00:19 Toxic Vacuolation Not Reportable 11/18/21 00:19 Dohle Bodies Not Reportable 11/18/21 00:19 Pelger-Huet Anomaly Not Reportable 11/18/21 00:19 Luis Rods Not Reportable 11/18/21 00:19 Platelet Estimate Consistent w auto 11/18/21 00:19 Clumped Platelets Not Reportable 11/18/21 00:19 Plt Clumps, EDTA Not Reportable 11/18/21 00:19 Large Platelets Not Reportable 11/18/21 00:19 Giant Platelets Not Reportable 11/18/21 00:19 Platelet Satelliting Not Reportable 11/18/21 00:19 Plt Morphology Comment Not Reportable 11/18/21 00:19 RBC Morphology Not Reportable 11/18/21 00:19 Dimorphic RBCs Not Reportable 11/18/21 00:19 Polychromasia Not Reportable 11/18/21 00:19 Hypochromasia Not Reportable 11/18/21 00:19 Poikilocytosis Not Reportable 11/18/21 00:19 Anisocytosis 1+ 11/18/21 00:19 Microcytosis Not Reportable 11/18/21 00:19 Macrocytosis Few 11/18/21 00:19 Spherocytes Not Reportable 11/18/21 00:19 Pappenheimer Bodies Not Reportable 11/18/21 00:19 Sickle Cells Not Reportable 11/18/21 00:19 Target Cells Not Reportable 11/18/21 00:19 Tear Drop Cells Not Reportable 11/18/21 00:19 Ovalocytes Not Reportable 11/18/21 00:19 Helmet Cells Not Reportable 11/18/21 00:19 Connelly-Evans Bodies Not Reportable 11/18/21 00:19 Fitzgerald Rings Not Reportable 11/18/21 00:19 Yumi Cells Not Reportable 11/18/21 00:19 Bite Cells Not Reportable 11/18/21 00:19 Crenated Cell Not Reportable 11/18/21 00:19 Elliptocytes Not Reportable 11/18/21 00:19 Acanthocytes (Spur) Not Reportable 11/18/21 00:19 Rouleaux Not Reportable 11/18/21 00:19 Hemoglobin C Crystals Not Reportable 11/18/21 00:19 Schistocytes Not Reportable 11/18/21 00:19 Malaria parasites Not Reportable 11/18/21 00:19 Shahriar Bodies Not Reportable 11/18/21 00:19 Hem Pathologist Commnt No 11/18/21 00:19 PT 12.9 Sec. (12.2-14.9) 11/18/21 00:19 INR 0.88 (0.87-1.13) 11/18/21 00:19 APTT 29.2 Sec. (24.2-36.6) 11/18/21 00:19 D-Dimer 464.80 ng/mlDDU (0-234) H 11/18/21 05:15 ABG pH 7.446 pH Units (7.350-7.450) 12/06/21 11:45 POC ABG pCO2 60.0 mmHg (32.0-48.0) H 11/30/21 12:04 ABG pCO2 40.3 mm Hg 12/06/21 11:45 POC ABG pO2 68.3 mmHg (83-108) L 11/30/21 12:04 ABG pO2 75.9 mm Hg (80.0-90.0) L 12/06/21 11:45 POC ABG HCO3 32.9 11/30/21 12:04 ABG HCO3 27.1 mmol/L (20.0-26.0) H 12/06/21 11:45 ABG O2 Saturation 95.9 % (95.0-99.0) 12/06/21 11:45 ABG O2 Content 20.5 (0.0-44) 12/06/21 11:45 POC ABG Base Excess 5.5 11/30/21 12:04 ABG Base Excess 2.9 mmol/L (-2.0-3.0) 12/06/21 11:45 ABG Hemoglobin 15.6 gm/dl (12.0-16.0) 12/06/21 11:45 ABG Oxyhemoglobin 90.9 (94-98) L 11/30/21 12:04 ABG Carboxyhemoglobin 1.7 % (0.0-5.0) 12/06/21 11:45 ABG Methemoglobin 0.5 % (0.0-1.5) 12/06/21 11:45 ABG Sodium 145.1 mmol/L (136.0-145.0) H 11/30/21 12:04 ABG Potassium 4.0 mmol/L (3.40-4.50) 11/30/21 12:04 ABG Chloride 102.0 mmol/L (98-107) 11/30/21 12:04 ABG Glucose 122 mg/dL (65-95) H 11/30/21 12:04 Oxyhemoglobin 93.7 % (95.0-99.0) L 12/06/21 11:45 Carboxyhemoglobin 1.2 (0.5-1.5) 11/30/21 12:04 FiO2 32 % 12/06/21 11:45 FiO2 % 40 11/30/21 12:04 Sodium 136 mmol/L (137-145) L D 12/11/21 09:25 Potassium 3.3 mmol/L (3.6-5.0) L 12/11/21 09:25 Chloride 100.2 mmol/L (98-107) 12/11/21 09:25 Carbon Dioxide 24 mmol/L (22-30) 12/11/21 09:25 Anion Gap 15 mmol/L 12/11/21 09:25 BUN 10 mg/dL (7-17) 12/11/21 09:25 Creatinine 0.5 mg/dL (0.6-1.2) L 12/11/21 09:25 Estimated GFR > 60 ml/min 12/11/21 09:25 BUN/Creatinine Ratio 20 % 12/11/21 09:25 Glucose 131 mg/dL (65-100) H 12/11/21 09:25 POC Glucose 101 mg/dL (70-105) 12/13/21 11:23 Hemoglobin A1c 5.9 % (4-6) 11/19/21 07:59 Lactic Acid 1.40 mmol/L (0.7-2.0) 11/18/21 00:19 Calcium 9.7 mg/dL (8.4-10.2) 12/11/21 09:25 Phosphorus 3.80 mg/dL (2.5-4.5) 12/04/21 04:48 Magnesium 2.00 mg/dL (1.7-2.3) 12/04/21 04:48 Total Bilirubin 0.60 mg/dL (0.1-1.2) 12/11/21 09:25 Direct Bilirubin < 0.2 mg/dL (0-0.2) 11/18/21 00:19 Indirect Bilirubin 0.2 mg/dL 11/18/21 00:19 AST 28 units/L (5-40) 12/11/21 09:25 ALT 39 units/L (7-56) 12/11/21 09:25 Alkaline Phosphatase 85 units/L (35-129) 12/11/21 09:25 Ammonia 54.0 umol/L (25-60) 11/18/21 00:19 Lactate Dehydrogenase 275 units/L (91-180) H 11/18/21 05:15 Troponin T < 0.010 ng/mL (0.00-0.029) 11/18/21 03:25 C-Reactive Protein 0.70 mg/dL (0.00-1.30) 11/18/21 15:47 NT-Pro-B Natriuret Pep 867.7 pg/mL (0-900) 11/18/21 00:19 Total Protein 6.5 g/dL (6.3-8.2) 12/11/21 09:25 Albumin 3.6 g/dL (3.9-5) L 12/11/21 09:25 Albumin/Globulin Ratio 1.2 % 12/11/21 09:25 Triglycerides 185 mg/dL (2-149) H 11/22/21 04:39 Lipase 13 units/L (13-60) 11/18/21 00:19 Procalcitonin 0.12 ng/mL (<0.15) 11/18/21 05:15 TSH 0.583 mlU/mL (0.270-4.200) 12/13/21 04:27 Arterial Blood Glucose 122 mg/dL (65-95) H 11/30/21 12:04 Arterial Blood Ionized Calcium 5.2 mg/dL (4.6-5.3) 11/29/21 03:51 Urine Color Yellow (Yellow) 11/23/21 12:24 Urine Turbidity Clear (Clear) 11/23/21 12:24 Urine pH 7.0 (5.0-7.0) 11/23/21 12:24 Ur Specific [place] 1.018 (1.003-1.030) 11/23/21 12:24 Urine Protein <15 mg/dl mg/dL (Negative) 11/23/21 12:24 Urine Glucose (UA) Neg mg/dL (Negative) 11/23/21 12:24 Urine Ketones Neg mg/dL (Negative) 11/23/21 12:24 Urine Blood Neg (Negative) 11/23/21 12:24 Urine Nitrite Neg (Negative) 11/23/21 12:24 Urine Bilirubin Neg (Negative) 11/23/21 12:24 Urine Urobilinogen 4.0 mg/dL (<2.0) 11/23/21 12:24 Ur Leukocyte Esterase Neg (Negative) 11/23/21 12:24 Urine WBC (Auto) 1.0 /HPF (0.0-6.0) 11/23/21 12:24 Urine RBC (Auto) 1.0 /HPF (0.0-6.0) 11/23/21 12:24 U Epithel Cells (Auto) 1.0 /HPF (0-13.0) 11/18/21 01:03 Hyaline Casts 3 /LPF 11/18/21 01:03 Urine Mucus Few /HPF 11/18/21 01:03 Salicylates < 0.3 mg/dL (2.8-20.0) L 11/18/21 00:19 Urine Opiates Screen Negative 11/18/21 01:03 Urine Methadone Screen Negative 11/18/21 01:03 Acetaminophen 5.0 ug/mL (10.0-30.0) L 11/18/21 00:19 Ur Barbiturates Screen Negative 11/18/21 01:03 Ur Phencyclidine Scrn Negative 11/18/21 01:03 Ur Amphetamines Screen Negative 11/18/21 01:03 U Benzodiazepines Scrn Negative 11/18/21 01:03 Urine Cocaine Screen Negative 11/18/21 01:03 U Marijuana (THC) Screen Negative 11/18/21 01:03 Drugs of Abuse Note Disclamer 11/18/21 01:03 Plasma/Serum Alcohol < 0.01 % (0-0.07) 11/18/21 00:19 Coronavirus (PCR) Negative (Negative) 11/18/21 Unknown Bhandari/IV: Voiding Method Indwelling Catheter Active Medications - Current Medications Current Medications: Generic Name Dose Route Start Last Admin Trade Name Freq PRN Reason Stop Dose Admin Acetaminophen 650 mg 11/18/21 03:10 12/09/21 13:11 Acetaminophen 650 Mg Rect Supp VT 650 mg Q6H PRN Administration Pain MILD(1-3)/Fever >100.5/MONTIEL Albuterol 2.5 mg 12/03/21 12:16 12/07/21 15:45 Albuterol 2.5 Mg/3 Ml Nebu IH 2.5 mg Q4HRT PRN Administration Shortness Of Breath Amlodipine Besylate 10 mg 11/27/21 10:00 12/12/21 10:47 Amlodipine 10 Mg Tab PO 10 mg DAILY PAULINA Administration Arformoterol Tartrate 15 mcg 11/18/21 20:00 12/13/21 09:12 Arformoterol 15 Mcg/2 Ml Nebu IH 15 mcg Q12HRT PAULINA Administration Aspirin 81 mg 11/27/21 10:00 12/12/21 10:45 Aspirin Ec 81 Mg Tab PO 81 mg QDAY PAULINA Administration Budesonide 0.5 mg 11/18/21 20:00 12/13/21 09:11 Budesonide 0.5 Mg/2 Ml Nebu IH 0.5 mg Q12HRT PAULINA Administration Carvedilol 12.5 mg 11/25/21 13:00 12/12/21 21:59 Carvedilol 12.5 Mg Tab FEEDTUBE 12.5 mg BID PAULINA Administration Dextrose 50 ml 11/18/21 10:40 Dextrose 50% In Water (25gm) 50 Ml Syringe IV Q30MIN PRN Hypoglycemia Protocol Enoxaparin Sodium 40 mg 11/19/21 22:00 12/12/21 21:59 Enoxaparin 40 Mg/0.4 Ml Inj SUB-Q 40 mg QDAY@2200 PAULINA Administration Protocol Famotidine 20 mg 11/20/21 10:00 12/12/21 21:59 Famotidine 20 Mg Tab FEEDTUBE 20 mg BID PAULINA Administration Hydralazine HCl 10 mg 11/18/21 10:44 12/11/21 16:56 Hydralazine 20 Mg/1 Ml Inj IV 10 mg Q4HR PRN Administration Hypertension Hydrophilic Ointment 1 applic 11/18/21 15:26 Lip Therapy Vaseline TP Q2HR PRN Dry Lips Insulin Human Lispro 0 unit 12/04/21 16:30 12/12/21 21:59 Insulin Lispro 100 Unit/Ml SUB-Q Not Given ACHS [facility] Protocol Isosorbide Mononitrate 60 mg 12/04/21 15:00 12/12/21 10:45 Isosorbide Mononitrate Er 60 Mg Tab PO 60 mg QDAY PAULINA Administration Losartan Potassium 100 mg 12/05/21 10:00 12/12/21 10:47 Losartan 50 Mg Tab PO 100 mg QDAY PAULINA Administration Magnesium Hydroxide 30 ml 11/18/21 03:10 Magnesium Hydroxide (Mom) Oral Liqd Udc PO Q4H PRN Constipation Senna/Docusate Sodium 1 tab 11/18/21 22:00 12/12/21 21:59 Sennosides/Docusate Sodium 8.6/50 Mg Tab FEEDTUBE 1 tab BID PAULINA Administration Nutrition/Malnutrition Assess - Dietary Evaluation Nutrition/Malnutrition Findings: Nutrition Notes Start: 11/18/21 10:45 Freq: Status: Active Protocol: Document 12/08/21 16:46 LEONARDO (Rec: 12/08/21 16:56 LEONARDO [id number]) Nutrition Notes Initial or Follow up Brief Note Current Diet Pureed Diet (since D 12/06), D Suppl (since D 12/08).. Height 5 ft 8 in Weight 81.6 kg [place] Body Weight (kg) 63.63 BMI 27.3 Weight change and time frame No body weight change reported . 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 Diet advanced to PO. %PO intake of meals has been Neglible (<25%), according to ADL notes. Dietary Supplements recommended and ordered. Percent of energy/protein needs met: Prescribed Pureed Diet provides for energy/protein needs (1,804 Kcal/77 g) during LOS; additionally, Dietary Supplements will compensate for possible Poor PO intake of meals with 1,050 Kcal and 60 g of protein. Current % PO Negligible Minimum of two criteria No #1 Nutrition Diagnosis Inadequate oral intake Comments: Diet advanced to Po, but intake remains neglible. Diagnosis Progress(for reassessment Improved documentation) Nutrition Intervention Change Diet Order: Continue Pureed Diet. Add Supplement/Snack (indicate name/kcal 8 fl oz Ensure Enlive; TID. /protein ) Provides kCal: 1,050 Provides Protein (gm) 60 Goal #1 Compensate, through dietary supplementation, for possible poor or insufficient PO intake of meals during LOS. Follow-Up By: 12/15/21 Additional Comments Continue monitoring food tolerance, %PO intake of meals and ONS, and BM.
[2021-12-13] MEDS: ASPIRIN EC 81 MG TAB PO SCH (14:27)
[2021-12-13] MEDS: carvediloL 12.5 MG TAB FEEDTUBE SCH ×2 (14:27→22:48)
[2021-12-13] MEDS: LOSARTAN 50 MG TAB PO SCH (14:27)
[2021-12-13] MEDS: amLODIPine 10 MG TAB PO SCH (14:27)
[2021-12-13] MEDS: SENNOSIDES/DOCUSATE SODIUM 8.6/50 MG TAB FEEDTUBE SCH ×2 (14:28→22:48)
[2021-12-13] MEDS: FAMOTIDINE 20 MG TAB FEEDTUBE SCH ×2 (14:28→22:47)
[2021-12-13] MEDS: ENOXAPARIN 40 MG/0.4 ML INJ SUB-Q SCH (22:47)
[2021-12-14] MEDS: BUDESONIDE 0.5 MG/2 ML NEBU IH SCH (08:24)
[2021-12-14] MEDS: ARFORMOTEROL 15 MCG/2 ML NEBU IH SCH (08:24)
[2021-12-14] MEDS: ASPIRIN EC 81 MG TAB PO SCH (10:29)
[2021-12-14] MEDS: amLODIPine 10 MG TAB PO SCH (10:29)
[2021-12-14] MEDS: LOSARTAN 50 MG TAB PO SCH (10:30)
[2021-12-14] MEDS: carvediloL 12.5 MG TAB FEEDTUBE SCH (10:30)
[2021-12-14 10:46] VITALS: BP 144/66
[2021-12-14] MEDS: INSULIN LISPRO 100 UNIT/ML SUB-Q SCH (11:21)
[2021-12-14] MEDS: FAMOTIDINE 20 MG TAB FEEDTUBE SCH (11:29)
[2021-12-14] MEDS: SENNOSIDES/DOCUSATE SODIUM 8.6/50 MG TAB FEEDTUBE SCH (11:31)
--- NOTE | 2021-12-14 12:42 | Progress Note ---
Assessment and Plan 81-year-old female with known history of coronary artery disease, [place], CHF, pulmonary hypertension and COPD , GERD brought into the emergency room via EMS for altered mental status and unresponsiveness. Most of the history was gotten from the ER staff as patient was already intubated in the emergency room. According to EMS patient was said to be having difficulty breathing was minimally responsive but in respiratory distress initially. She is well-known to EMS service as she had been transported on multiple occasions for COPD exace rbations. Respiratory status was said to have worsened in route to the hospital and patient had been given Solu-Medrol and magnesium IV. However she was said to have developed pinpoint pupils and was given some Narcan with some improvement. Work-up in the emergency room today, labs were significant for leukocytosis of 15.6, D-dimer of 464. Urinalysis was significant for UTI. Chest x-ray shows bilateral pulmonary opacities possibly representing edema/atelectasis or pneumonia. CT of the chest shows evidence of pulmonary hypertension with dense consolidation along the left lower lobe that is concerning for pneumonia. Mild interstitial pulmonary edema. Patient awake. On 2 litres O2 via nasal cannula. No acute respiratory distress. BIPAP stand by in the room. O2 saturation running 93% Patient afebrile. Has mild leukocytosis. Blood pressure 160/85, Pulse 83, respirations 20. Chest xray done 12/06/21 reported Poor degree of inspiration is seen. A mildly congested appearance is noted and there may be mild interstitial edema. Bibasilar atelectatic changes are noted. No pneumothorax. Patient presently on Brovanna/Budesonide aerosol treatments, Albuterol inhaler q 6 hours Prn for shortness of breath,S/C Lovenox, Famotidine, - Patient Problems (1) Altered mental status Current Visit: Yes Status: Acute Plan to address problem: Management as per primary care and neurology. (2) COPD exacerbation Current Visit: Yes Status: Acute Plan to address problem: O2 2 litres via nasal cannula Brovanna/Budesonide aerosol treatments q 12 hours Continue S/C Lovenox, Continue famotidine. (3) Pneumonia Current Visit: Yes Status: Acute Plan to address problem: If patient febrile, consider antibiotics. (4) Acute exacerbation of CHF (congestive heart failure) Current Visit: No Status: Acute Qualifiers: Heart failure type: combined systolic and diastolic Qualified Code(s): I50.43 - Acute on chronic combined systolic (congestive) and diastolic (congestive) heart failure Plan to address problem: Management as per cardiology. (5) Hypertension Current Visit: No Status: Chronic Qualifiers: Hypertension type: essential hypertension Plan to address problem: Management as per primary care. Subjective Date of service: 12/14/21 Principal diagnosis: AE-COPD; AHRF; CHF (? new onset); CAP; CAD; Obesity; HTNsive Emergency Interval history: 81-year-old female with known history of coronary artery disease, [place], CHF, pu lmonary hypertension and COPD , GERD brought into the emergency room via EMS for altered mental status and unresponsiveness. Most of the history was gotten from the ER staff as patient was already intubated in the emergency room. According to EMS patient was said to be having difficulty breathing was minimally responsive but in respiratory distress initially. She is well-known to EMS service as she had been transported on multiple occasions for COPD exacerbations. Respiratory status was said to have worsened in route to the hospital and patient had been given Solu-Medrol and magnesium IV. However she was said to have developed pinpoint pupils and was given some Narcan with some improvement. Work-up in the emergency room today, labs were significant for leukocytosis of 15.6, D-dimer of 464. Urinalysis was significant for UTI. Chest x-ray shows bilateral pulmonary opacities possibly representing edema/atelectasis or pneumonia. CT of the chest shows evidence of pulmonary hypertension with dense consolidation along the left lower lobe that is concerning for pneumonia. Mild interstitial pulmonary edema. Patient extubated and transfered to the telemetry. Patient awake. On 2 litres O2 via nasal cannula. No acute respiratory distress. BIPAP stand by in the room. O2 saturation running 93% Patient afebrile. Has mild leukocytosis. Blood pressure 160/85, Pulse 83, respirations 20. Chest xray done 12/06/21 reported Poor degree of inspiration is seen. A mildly congested appearance is noted and there may be mild interstitial edema. Bibasilar atelectatic changes are noted. No pneumothorax. Patient presently on Brovanna/Budesonide aerosol treatments, Albuterol inhaler q 6 hours Prn for shortness of breath,S/C Lovenox, Famotidine, Objective Vital Signs - 12hr 12/14/21 12/14/21 12/14/21 04:34 08:24 08:45 Temperature 98.2 F Pulse Rate 73 Pulse Rate [ 84 Anterior Bilateral Throughout] Respiratory 16 Rate Respiratory 20 Rate [Anterior Bilateral Throughout] Blood Pressure 165/70 O2 Sat by Pulse 97 95 Oximetry 12/14/21 12/14/21 08:47 08:50 Temperature 97.8 F Pulse Rate 79 Pulse Rate [ Anterior Bilateral Throughout] Respiratory 18 Rate Respiratory Rate [Anterior Bilateral Throughout] Blood Pressure 144/66 O2 Sat by Pulse 89 91 Oximetry Constitutional: no acute distress, alert, other (elderly obese female with mildly increased respiratory effort at rest ) Eyes: non-icteric ENT: oropharynx moist Neck: supple, no lymphadenopathy, no JVD, other (large circumference) Effort: mildly labored Ascultation: Bilateral: diminished breath sounds, rhonchi (scant bases) Percussion: Bilateral: not dull Cardiovascular: regular rate and rhythm Gastrointestinal: normoactive bowel sounds, soft, non-tender, non-distended (protuberant) Integumentary: normal Extremities: no cyanosis, no edema, pulses normal, no ischemia or petechiae Neurologic: non-focal exam (grossly), pupils equal and round, CN II-XII normal Psychiatric: other (mild delirium) CBC and BMP: 12/11/21 09:25 12/11/21 09:25 ABG, PT/INR, D-dimer: ABG ABG pH 7.446 pH Units (7.350-7.450) 12/06/21 11:45 POC ABG pCO2 60.0 mmHg (32.0-48.0) H 11/30/21 12:04 ABG pCO2 40.3 mm Hg 12/06/21 11:45 POC ABG pO2 68.3 mmHg (83-108) L 11/30/21 12:04 ABG pO2 75.9 mm Hg (80.0-90.0) L 12/06/21 11:45 POC ABG HCO3 32.9 11/30/21 12:04 ABG O2 Saturation 95.9 % (95.0-99.0) 12/06/21 11:45 PT/INR, D-dimer PT 12.9 Sec. (12.2-14.9) 11/18/21 00:19 INR 0.88 (0.87-1.13) 11/18/21 00:19 D-Dimer 464.80 ng/mlDDU (0-234) H 11/18/21 05:15 Abnormal lab findings: Abnormal Labs 11/18/21 11/18/21 11/18/21 00:01 00:19 00:19 WBC 15.6 H RBC 5.59 H Hgb 14.8 H Hct 49.8 H MCH 27 L MCHC RDW 16.9 H Plt Count Lymph % (Auto) Whitley % (Auto) Lymph # (Auto) [place] # (Auto) Seg Neutrophils % Lymphocytes % (Manual) 4.0 L Seg Neutrophils # Seg Neutrophils # Man 14.7 H Lymphocytes # (Manual) 0.6 L D-Dimer ABG pH POC ABG pCO2 POC ABG pO2 ABG pO2 ABG HCO3 ABG O2 Saturation ABG Base Excess ABG Hemoglobin ABG Oxyhemoglobin ABG Sodium ABG Glucose Oxyhemoglobin Carboxyhemoglobin Sodium Potassium Chloride Carbon Dioxide BUN Creatinine Glucose 148 H POC Glucose 151 H Calcium Phosphorus Magnesium AST Lactate Dehydrogenase Albumin Triglycerides Arterial Blood Glucose Arterial Blood Ionized Calcium Urine WBC (Auto) Salicylates Acetaminophen 11/18/21 11/18/21 11/18/21 00:19 00:19 00:19 WBC RBC Hgb Hct MCH MCHC RDW Plt Count Lymph % (Auto) [place] % (Auto) Lymph # (Auto) [place] # (Auto) Seg Neutrophils % Lymphocytes % (Manual) Seg Neutrophils # Seg Neutrophils # Man Lymphocytes # (Manual) D-Dimer ABG pH POC ABG pCO2 POC ABG pO2 ABG pO2 ABG HCO3 ABG O2 Saturation ABG Base Excess ABG Hemoglobin ABG Oxyhemoglobin ABG Sodium ABG Glucose Oxyhemoglobin Carboxyhemoglobin Sodium Potassium Chloride Carbon Dioxide BUN Creatinine Glucose POC Glucose Calcium Phosphorus Magnesium 2.50 H AST Lactate Dehydrogenase Albumin Triglycerides Arterial Blood Glucose Arterial Blood Ionized Calcium Urine WBC (Auto) Salicylates < 0.3 L Acetaminophen 5.0 L 11/18/21 11/18/21 11/18/21 01:03 02:00 05:15 WBC RBC Hgb Hct MCH MCHC RDW Plt Count Lymph % (Auto) [place] % (Auto) Lymph # (Auto) [place] # (Auto) Seg Neutrophils % Lymphocytes % (Manual) Seg Neutrophils # Seg Neutrophils # Man Lymphocytes # (Manual) D-Dimer 464.80 H ABG pH POC ABG pCO2 POC ABG pO2 ABG pO2 ABG HCO3 35.8 H ABG O2 Saturation ABG Base Excess 7.8 H ABG Hemoglobin ABG Oxyhemoglobin ABG Sodium ABG Glucose Oxyhemoglobin 91.9 L Carboxyhemoglobin Sodium Potassium Chloride Carbon Dioxide BUN Creatinine Glucose POC Glucose Calcium Phosphorus Magnesium AST Lactate Dehydrogenase Albumin Triglycerides Arterial Blood Glucose Arterial Blood Ionized Calcium Urine WBC (Auto) 16.0 H Salicylates Acetaminophen 11/18/21 11/18/21 11/18/21 05:15 15:47 15:47 WBC 13.5 H RBC 5.60 H Hgb 14.9 H Hct 49.1 H MCH 27 L MCHC RDW 17.3 H Plt Count Lymph % (Auto) 7.9 L [place] % (Auto) 10.1 H Lymph # (Auto) 1.1 L [place] # (Auto) 1.4 H Seg Neutrophils % 81.7 H Lymphocytes % (Manual) Seg Neutrophils # 11.0 H Seg Neutrophils # Man Lymphocytes # (Manual) D-Dimer ABG pH POC ABG pCO2 POC ABG pO2 ABG pO2 ABG HCO3 ABG O2 Saturation ABG Base Excess ABG Hemoglobin ABG Oxyhemoglobin ABG Sodium ABG Glucose Oxyhemoglobin Carboxyhemoglobin Sodium Potassium Chloride Carbon Dioxide BUN Creatinine Glucose 138 H POC Glucose Calcium Phosphorus Magnesium AST Lactate Dehydrogenase 275 H Albumin Triglycerides Arterial Blood Glucose Arterial Blood Ionized Calcium Urine WBC (Auto) Salicylates Acetaminophen 11/18/21 11/18/21 11/19/21 18:45 23:33 04:58 WBC RBC Hgb Hct MCH MCHC RDW Plt Count Lymph % (Auto) [place] % (Auto) Lymph # (Auto) [place] # (Auto) Seg Neutrophils % Lymphocytes % (Manual) Seg Neutrophils # Seg Neutrophils # Man Lymphocytes # (Manual) D-Dimer ABG pH POC ABG pCO2 POC ABG pO2 ABG pO2 ABG HCO3 ABG O2 Saturation ABG Base Excess ABG Hemoglobin ABG Oxyhemoglobin ABG Sodium ABG Glucose Oxyhemoglobin Carboxyhemoglobin Sodium Potassium Chloride Carbon Dioxide BUN Creatinine Glucose 130 H POC Glucose 132 H 113 H Calcium Phosphorus Magnesium AST Lactate Dehydrogenase Albumin Triglycerides Arterial Blood Glucose Arterial Blood Ionized Calcium Urine WBC (Auto) Salicylates Acetaminophen 11/19/21 11/19/21 11/19/21 07:59 07:59 08:55 WBC 12.7 H RBC 5.29 H Hgb Hct 45.5 H MCH 26 L MCHC RDW 17.4 H Plt Count Lymph % (Auto) 12.3 L [place] % (Auto) 9.6 H Lymph # (Auto) [place] # (Auto) 1.2 H Seg Neutrophils % 76.9 H Lymphocytes % (Manual) Seg Neutrophils # 9.7 H Seg Neutrophils # Man Lymphocytes # (Manual) D-Dimer ABG pH 7.518 H POC ABG pCO2 POC ABG pO2 ABG pO2 77.6 L ABG HCO3 30.1 H ABG O2 Saturation ABG Base Excess 6.9 H ABG Hemoglobin ABG Oxyhemoglobin ABG Sodium ABG Glucose Oxyhemoglobin Carboxyhemoglobin Sodium Potassium 3.1 L D Chloride Carbon Dioxide BUN Creatinine Glucose 115 H POC Glucose Calcium 8.1 L Phosphorus Magnesium AST Lactate Dehydrogenase Albumin Triglycerides Arterial Blood Glucose Arterial Blood Ionized Calcium Urine WBC (Auto) Salicylates Acetaminophen 11/19/21 11/19/21 11/20/21 11:33 16:22 04:20 WBC 13.9 H RBC 5.44 H Hgb Hct 49.3 H MCH 26 L MCHC 29 L RDW 18.3 H Plt Count Lymph % (Auto) [place] % (Auto) Lymph # (Auto) [place] # (Auto) Seg Neutrophils % Lymphocytes % (Manual) Seg Neutrophils # Seg Neutrophils # Man Lymphocytes # (Manual) D-Dimer ABG pH POC ABG pCO2 POC ABG pO2 ABG pO2 ABG HCO3 ABG O2 Saturation ABG Base Excess ABG Hemoglobin ABG Oxyhemoglobin ABG Sodium ABG Glucose Oxyhemoglobin Carboxyhemoglobin Sodium Potassium Chloride Carbon Dioxide BUN Creatinine Glucose POC Glucose 119 H 112 H Calcium Phosphorus Magnesium AST Lactate Dehydrogenase Albumin Triglycerides Arterial Blood Glucose Arterial Blood Ionized Calcium Urine WBC (Auto) Salicylates Acetaminophen 11/20/21 11/20/21 11/20/21 04:20 11:07 12:02 WBC RBC Hgb Hct MCH MCHC RDW Plt Count Lymph % (Auto) [place] % (Auto) Lymph # (Auto) [place] # (Auto) Seg Neutrophils % Lymphocytes % (Manual) Seg Neutrophils # Seg Neutrophils # Man Lymphocytes # (Manual) D-Dimer ABG pH 7.251 L POC ABG pCO2 POC ABG pO2 ABG pO2 66.3 L ABG HCO3 30.2 H ABG O2 Saturation 91.8 L ABG Base Excess ABG Hemoglobin ABG Oxyhemoglobin ABG Sodium ABG Glucose Oxyhemoglobin 89.4 L Carboxyhemoglobin Sodium 147 H Potassium Chloride Carbon Dioxide BUN 25 H Creatinine Glucose POC Glucose 118 H Calcium Phosphorus 6.40 H Magnesium AST Lactate Dehydrogenase Albumin Triglycerides Arterial Blood Glucose Arterial Blood Ionized Calcium Urine WBC (Auto) Salicylates Acetaminophen 11/20/21 11/21/21 11/21/21 17:31 00:07 04:44 WBC 14.0 H RBC 5.08 H Hgb Hct 44.7 H MCH 26 L MCHC 29 L RDW 17.8 H Plt Count Lymph % (Auto) [place] % (Auto) Lymph # (Auto) [place] # (Auto) Seg Neutrophils % Lymphocytes % (Manual) Seg Neutrophils # Seg Neutrophils # Man Lymphocytes # (Manual) D-Dimer ABG pH POC ABG pCO2 POC ABG pO2 ABG pO2 ABG HCO3 ABG O2 Saturation ABG Base Excess ABG Hemoglobin ABG Oxyhemoglobin ABG Sodium ABG Glucose Oxyhemoglobin Carboxyhemoglobin Sodium Potassium Chloride Carbon Dioxide BUN Creatinine Glucose POC Glucose 139 H 147 H Calcium Phosphorus Magnesium AST Lactate Dehydrogenase Albumin Triglycerides Arterial Blood Glucose Arterial Blood Ionized Calcium Urine WBC (Auto) Salicylates Acetaminophen 11/21/21 11/21/21 11/21/21 04:44 06:06 11:45 WBC RBC Hgb Hct MCH MCHC RDW Plt Count Lymph % (Auto) [place] % (Auto) Lymph # (Auto) [place] # (Auto) Seg Neutrophils % Lymphocytes % (Manual) Seg Neutrophils # Seg Neutrophils # Man Lymphocytes # (Manual) D-Dimer ABG pH POC ABG pCO2 POC ABG pO2 ABG pO2 ABG HCO3 ABG O2 Saturation ABG Base Excess ABG Hemoglobin ABG Oxyhemoglobin ABG Sodium ABG Glucose Oxyhemoglobin Carboxyhemoglobin Sodium Potassium Chloride Carbon Dioxide BUN 20 H Creatinine Glucose 157 H POC Glucose 158 H 119 H Calcium Phosphorus Magnesium AST Lactate Dehydrogenase Albumin Triglycerides Arterial Blood Glucose Arterial Blood Ionized Calcium Urine WBC (Auto) Salicylates Acetaminophen 11/21/21 11/21/21 11/22/21 11:50 16:54 00:03 WBC RBC Hgb Hct MCH MCHC RDW Plt Count Lymph % (Auto) [place] % (Auto) Lymph # (Auto) [place] # (Auto) Seg Neutrophils % Lymphocytes % (Manual) Seg Neutrophils # Seg Neutrophils # Man Lymphocytes # (Manual) D-Dimer ABG pH POC ABG pCO2 POC ABG pO2 ABG pO2 61.8 L ABG HCO3 35.2 H ABG O2 Saturation 92.8 L ABG Base Excess 8.1 H ABG Hemoglobin ABG Oxyhemoglobin ABG Sodium ABG Glucose Oxyhemoglobin 90.6 L Carboxyhemoglobin Sodium Potassium Chloride Carbon Dioxide BUN Creatinine Glucose POC Glucose 149 H 133 H Calcium Phosphorus Magnesium AST Lactate Dehydrogenase Albumin Triglycerides Arterial Blood Glucose Arterial Blood Ionized Calcium Urine WBC (Auto) Salicylates Acetaminophen 11/22/21 11/22/21 11/22/21 04:39 04:39 04:39 WBC 14.1 H RBC Hgb Hct 43.4 H MCH 26 L MCHC RDW 17.9 H Plt Count Lymph % (Auto) [place] % (Auto) Lymph # (Auto) [place] # (Auto) Seg Neutrophils % Lymphocytes % (Manual) Seg Neutrophils # Seg Neutrophils # Man Lymphocytes # (Manual) D-Dimer ABG pH POC ABG pCO2 POC ABG pO2 ABG pO2 ABG HCO3 ABG O2 Saturation ABG Base Excess ABG Hemoglobin ABG Oxyhemoglobin ABG Sodium ABG Glucose Oxyhemoglobin Carboxyhemoglobin Sodium Potassium Chloride Carbon Dioxide 33 H BUN Creatinine Glucose 152 H POC Glucose Calcium Phosphorus Magnesium AST Lactate Dehydrogenase Albumin Triglycerides 185 H Arterial Blood Glucose Arterial Blood Ionized Calcium Urine WBC (Auto) Salicylates Acetaminophen 11/22/21 11/22/21 11/22/21 05:02 10:56 11:31 WBC RBC Hgb Hct MCH MCHC RDW Plt Count Lymph % (Auto) [place] % (Auto) Lymph # (Auto) [place] # (Auto) Seg Neutrophils % Lymphocytes % (Manual) Seg Neutrophils # Seg Neutrophils # Man Lymphocytes # (Manual) D-Dimer ABG pH POC ABG pCO2 POC ABG pO2 ABG pO2 55.3 L ABG HCO3 39.4 H ABG O2 Saturation 89.5 L ABG Base Excess 11.7 H ABG Hemoglobin ABG Oxyhemoglobin ABG Sodium ABG Glucose Oxyhemoglobin 87.2 L Carboxyhemoglobin Sodium Potassium Chloride Carbon Dioxide BUN Creatinine Glucose POC Glucose 158 H 116 H Calcium Phosphorus Magnesium AST Lactate Dehydrogenase Albumin Triglycerides Arterial Blood Glucose Arterial Blood Ionized Calcium Urine WBC (Auto) Salicylates Acetaminophen 11/22/21 11/22/21 11/23/21 17:29 23:22 04:49 WBC 13.6 H RBC 5.18 H Hgb Hct 45.6 H MCH 25 L MCHC 29 L RDW 17.5 H Plt Count Lymph % (Auto) [place] % (Auto) Lymph # (Auto) [place] # (Auto) Seg Neutrophils % Lymphocytes % (Manual) Seg Neutrophils # Seg Neutrophils # Man Lymphocytes # (Manual) D-Dimer ABG pH POC ABG pCO2 POC ABG pO2 ABG pO2 ABG HCO3 ABG O2 Saturation ABG Base Excess ABG Hemoglobin ABG Oxyhemoglobin ABG Sodium ABG Glucose Oxyhemoglobin Carboxyhemoglobin Sodium Potassium Chloride Carbon Dioxide BUN Creatinine Glucose POC Glucose 129 H 171 H Calcium Phosphorus Magnesium AST Lactate Dehydrogenase Albumin Triglycerides Arterial Blood Glucose Arterial Blood Ionized Calcium Urine WBC (Auto) Salicylates Acetaminophen 11/23/21 11/23/21 11/23/21 04:49 11:53 16:22 WBC RBC Hgb Hct MCH MCHC RDW Plt Count Lymph % (Auto) [place] % (Auto) Lymph # (Auto) [place] # (Auto) Seg Neutrophils % Lymphocytes % (Manual) Seg Neutrophils # Seg Neutrophils # Man Lymphocytes # (Manual) D-Dimer ABG pH POC ABG pCO2 POC ABG pO2 ABG pO2 61.8 L ABG HCO3 40.9 H ABG O2 Saturation 93.4 L ABG Base Excess 14.6 H ABG Hemoglobin 6.9 L ABG Oxyhemoglobin ABG Sodium ABG Glucose Oxyhemoglobin 90.2 L Carboxyhemoglobin Sodium 146 H Potassium Chloride Carbon Dioxide 36 H BUN 21 H Creatinine Glucose 155 H POC Glucose 166 H Calcium Phosphorus Magnesium AST Lactate Dehydrogenase Albumin Triglycerides Arterial Blood Glucose Arterial Blood Ionized Calcium Urine WBC (Auto) Salicylates Acetaminophen 11/23/21 11/23/21 11/24/21 17:11 23:07 05:03 WBC RBC Hgb Hct MCH MCHC RDW Plt Count Lymph % (Auto) [place] % (Auto) Lymph # (Auto) [place] # (Auto) Seg Neutrophils % Lymphocytes % (Manual) Seg Neutrophils # Seg Neutrophils # Man Lymphocytes # (Manual) D-Dimer ABG pH POC ABG pCO2 POC ABG pO2 ABG pO2 ABG HCO3 ABG O2 Saturation ABG Base Excess ABG Hemoglobin ABG Oxyhemoglobin ABG Sodium ABG Glucose Oxyhemoglobin Carboxyhemoglobin Sodium Potassium Chloride Carbon Dioxide BUN Creatinine Glucose POC Glucose 142 H 197 H 183 H Calcium Phosphorus Magnesium AST Lactate Dehydrogenase Albumin Triglycerides Arterial Blood Glucose Arterial Blood Ionized Calcium Urine WBC (Auto) Salicylates Acetaminophen 12/11/24/21 11/24/21 08:33 08:33 09:00 WBC RBC Hgb Hct 43.6 H MCH 26 L MCHC RDW 18.0 H Plt Count Lymph % (Auto) [place] % (Auto) Lymph # (Auto) [place] # (Auto) Seg Neutrophils % Lymphocytes % (Manual) Seg Neutrophils # Seg Neutrophils # Man Lymphocytes # (Manual) D-Dimer ABG pH POC ABG pCO2 POC ABG pO2 ABG pO2 69.1 L ABG HCO3 40.1 H ABG O2 Saturation 93.2 L ABG Base Excess 11.9 H ABG Hemoglobin ABG Oxyhemoglobin ABG Sodium ABG Glucose Oxyhemoglobin 90.3 L Carboxyhemoglobin Sodium Potassium 5.3 H D Chloride Carbon Dioxide 36 H BUN 25 H Creatinine 0.5 L Glucose 185 H POC Glucose Calcium Phosphorus Magnesium AST Lactate Dehydrogenase Albumin Triglycerides Arterial Blood Glucose Arterial Blood Ionized Calcium Urine WBC (Auto) Salicylates Acetaminophen 11/24/21 11/24/21 11/25/21 12:00 18:08 00:50 WBC RBC Hgb Hct MCH MCHC RDW Plt Count Lymph % (Auto) [place] % (Auto) Lymph # (Auto) [place] # (Auto) Seg Neutrophils % Lymphocytes % (Manual) Seg Neutrophils # Seg Neutrophils # Man Lymphocytes # (Manual) D-Dimer ABG pH POC ABG pCO2 POC ABG pO2 ABG pO2 67.3 L ABG HCO3 41.6 H 42.7 H ABG O2 Saturation 94.5 L ABG Base Excess 12.3 H 14.7 H ABG Hemoglobin ABG Oxyhemoglobin ABG Sodium ABG Glucose Oxyhemoglobin 93.1 L 91.6 L Carboxyhemoglobin Sodium Potassium Chloride Carbon Dioxide BUN Creatinine Glucose POC Glucose 168 H Calcium Phosphorus Magnesium AST Lactate Dehydrogenase Albumin Triglycerides Arterial Blood Glucose Arterial Blood Ionized Calcium Urine WBC (Auto) Salicylates Acetaminophen 11/25/21 11/25/21 11/25/21 04:57 04:57 14:18 WBC RBC 5.13 H Hgb Hct 45.1 H MCH 26 L MCHC RDW 17.7 H Plt Count Lymph % (Auto) [place] % (Auto) Lymph # (Auto) [place] # (Auto) Seg Neutrophils % Lymphocytes % (Manual) Seg Neutrophils # Seg Neutrophils # Man Lymphocytes # (Manual) D-Dimer ABG pH POC ABG pCO2 POC ABG pO2 ABG pO2 65.1 L ABG HCO3 41.7 H ABG O2 Saturation 94.2 L ABG Base Excess 13.4 H ABG Hemoglobin ABG Oxyhemoglobin ABG Sodium ABG Glucose Oxyhemoglobin 91.3 L Carboxyhemoglobin Sodium 146 H Potassium Chloride Carbon Dioxide 38 H BUN 26 H Creatinine 0.5 L Glucose 210 H POC Glucose Calcium Phosphorus Magnesium AST Lactate Dehydrogenase Albumin Triglycerides Arterial Blood Glucose Arterial Blood Ionized Calcium Urine WBC (Auto) Salicylates Acetaminophen 11/25/21 11/26/21 11/26/21 19:22 04:28 04:28 WBC RBC 5.05 H Hgb Hct 44.0 H MCH 26 L MCHC RDW 17.6 H Plt Count Lymph % (Auto) [place] % (Auto) Lymph # (Auto) [place] # (Auto) Seg Neutrophils % Lymphocytes % (Manual) Seg Neutrophils # Seg Neutrophils # Man Lymphocytes # (Manual) D-Dimer ABG pH POC ABG pCO2 POC ABG pO2 ABG pO2 ABG HCO3 ABG O2 Saturation ABG Base Excess ABG Hemoglobin ABG Oxyhemoglobin ABG Sodium ABG Glucose Oxyhemoglobin Carboxyhemoglobin Sodium 146 H Potassium Chloride Carbon Dioxide 38 H BUN 30 H Creatinine Glucose 124 H POC Glucose 151 H Calcium 10.5 H Phosphorus Magnesium AST Lactate Dehydrogenase Albumin Triglycerides Arterial Blood Glucose Arterial Blood Ionized Calcium Urine WBC (Auto) Salicylates Acetaminophen 11/26/21 11/26/21 11/27/21 05:50 10:28 08:31 WBC 12.4 H RBC 5.62 H Hgb 14.6 H Hct 48.7 H MCH 26 L MCHC RDW 17.9 H Plt Count 469 H Lymph % (Auto) [place] % (Auto) Lymph # (Auto) [place] # (Auto) Seg Neutrophils % Lymphocytes % (Manual) Seg Neutrophils # Seg Neutrophils # Man Lymphocytes # (Manual) D-Dimer ABG pH POC ABG pCO2 POC ABG pO2 ABG pO2 66.5 L ABG HCO3 39.6 H ABG O2 Saturation 92.9 L ABG Base Excess 11.4 H ABG Hemoglobin 16.8 H ABG Oxyhemoglobin ABG Sodium ABG Glucose Oxyhemoglobin 90.3 L Carboxyhemoglobin Sodium Potassium Chloride Carbon Dioxide BUN Creatinine Glucose POC Glucose 121 H Calcium Phosphorus Magnesium AST Lactate Dehydrogenase Albumin Triglycerides Arterial Blood Glucose Arterial Blood Ionized Calcium Urine WBC (Auto) Salicylates Acetaminophen 11/27/21 11/27/21 11/27/21 08:31 09:46 11:49 WBC RBC Hgb Hct MCH MCHC RDW Plt Count Lymph % (Auto) [place] % (Auto) Lymph # (Auto) [place] # (Auto) Seg Neutrophils % Lymphocytes % (Manual) Seg Neutrophils # Seg Neutrophils # Man Lymphocytes # (Manual) D-Dimer ABG pH POC ABG pCO2 POC ABG pO2 ABG pO2 ABG HCO3 ABG O2 Saturation ABG Base Excess ABG Hemoglobin ABG Oxyhemoglobin ABG Sodium ABG Glucose Oxyhemoglobin Carboxyhemoglobin Sodium 150 H Potassium Chloride Carbon Dioxide 33 H BUN 31 H Creatinine Glucose 135 H POC Glucose 140 H 153 H Calcium 11.0 H Phosphorus Magnesium AST Lactate Dehydrogenase Albumin Triglycerides Arterial Blood Glucose Arterial Blood Ionized Calcium Urine WBC (Auto) Salicylates Acetaminophen 11/27/21 11/27/21 11/27/21 14:16 17:14 23:25 WBC RBC Hgb Hct MCH MCHC RDW Plt Count Lymph % (Auto) [place] % (Auto) Lymph # (Auto) [place] # (Auto) Seg Neutrophils % Lymphocytes % (Manual) Seg Neutrophils # Seg Neutrophils # Man Lymphocytes # (Manual) D-Dimer ABG pH 7.485 H POC ABG pCO2 48.7 H POC ABG pO2 74.5 L ABG pO2 ABG HCO3 ABG O2 Saturation ABG Base Excess ABG Hemoglobin ABG Oxyhemoglobin ABG Sodium 145.5 H ABG Glucose 153 H Oxyhemoglobin Carboxyhemoglobin 1.6 H Sodium Potassium Chloride Carbon Dioxide BUN Creatinine Glucose POC Glucose 142 H 123 H Calcium Phosphorus Magnesium AST Lactate Dehydrogenase Albumin Triglycerides Arterial Blood Glucose 153 H Arterial Blood Ionized Calcium 5.4 H Urine WBC (Auto) Salicylates Acetaminophen 11/28/21 11/28/21 11/28/21 03:38 03:38 05:16 WBC RBC 5.05 H Hgb Hct 43.6 H MCH 26 L MCHC RDW 17.8 H Plt Count Lymph % (Auto) [place] % (Auto) Lymph # (Auto) [place] # (Auto) Seg Neutrophils % Lymphocytes % (Manual) Seg Neutrophils # Seg Neutrophils # Man Lymphocytes # (Manual) D-Dimer ABG pH POC ABG pCO2 POC ABG pO2 ABG pO2 ABG HCO3 ABG O2 Saturation ABG Base Excess ABG Hemoglobin ABG Oxyhemoglobin ABG Sodium ABG Glucose Oxyhemoglobin Carboxyhemoglobin Sodium 150 H Potassium Chloride Carbon Dioxide 32 H BUN 51 H Creatinine Glucose 143 H POC Glucose 138 H Calcium 10.5 H Phosphorus Magnesium AST Lactate Dehydrogenase Albumin Triglycerides Arterial Blood Glucose Arterial Blood Ionized Calcium Urine WBC (Auto) Salicylates Acetaminophen 11/28/21 11/28/21 11/29/21 17:01 23:51 03:51 WBC RBC Hgb Hct MCH MCHC RDW Plt Count Lymph % (Auto) [place] % (Auto) Lymph # (Auto) [place] # (Auto) Seg Neutrophils % Lymphocytes % (Manual) Seg Neutrophils # Seg Neutrophils # Man Lymphocytes # (Manual) D-Dimer ABG pH POC ABG pCO2 54.1 H POC ABG pO2 70.6 L ABG pO2 ABG HCO3 ABG O2 Saturation ABG Base Excess ABG Hemoglobin ABG Oxyhemoglobin 93.1 L ABG Sodium ABG Glucose 144 H Oxyhemoglobin Carboxyhemoglobin Sodium Potassium Chloride Carbon Dioxide BUN Creatinine Glucose POC Glucose 145 H 130 H Calcium Phosphorus Magnesium AST Lactate Dehydrogenase Albumin Triglycerides Arterial Blood Glucose 144 H Arterial Blood Ionized Calcium Urine WBC (Auto) Salicylates Acetaminophen 11/29/21 11/29/21 11/29/21 05:51 05:51 12:09 WBC 11.1 H RBC Hgb Hct MCH 26 L MCHC RDW 17.8 H Plt Count Lymph % (Auto) [place] % (Auto) Lymph # (Auto) [place] # (Auto) Seg Neutrophils % Lymphocytes % (Manual) Seg Neutrophils # Seg Neutrophils # Man Lymphocytes # (Manual) D-Dimer ABG pH POC ABG pCO2 POC ABG pO2 ABG pO2 ABG HCO3 ABG O2 Saturation ABG Base Excess ABG Hemoglobin ABG Oxyhemoglobin ABG Sodium ABG Glucose Oxyhemoglobin Carboxyhemoglobin Sodium Potassium Chloride Carbon Dioxide 31 H BUN 42 H Creatinine Glucose 133 H POC Glucose 157 H Calcium Phosphorus Magnesium AST Lactate Dehydrogenase Albumin Triglycerides Arterial Blood Glucose Arterial Blood Ionized Calcium Urine WBC (Auto) Salicylates Acetaminophen 11/29/21 11/30/21 11/30/21 17:27 00:23 04:42 WBC RBC 5.05 H Hgb Hct 43.6 H MCH 26 L MCHC RDW 17.5 H Plt Count Lymph % (Auto) [place] % (Auto) Lymph # (Auto) [place] # (Auto) Seg Neutrophils % Lymphocytes % (Manual) Seg Neutrophils # Seg Neutrophils # Man Lymphocytes # (Manual) D-Dimer ABG pH POC ABG pCO2 POC ABG pO2 ABG pO2 ABG HCO3 ABG O2 Saturation ABG Base Excess ABG Hemoglobin ABG Oxyhemoglobin ABG Sodium ABG Glucose Oxyhemoglobin Carboxyhemoglobin Sodium Potassium Chloride Carbon Dioxide BUN Creatinine Glucose POC Glucose 164 H 192 H Calcium Phosphorus Magnesium AST Lactate Dehydrogenase Albumin Triglycerides Arterial Blood Glucose Arterial Blood Ionized Calcium Urine WBC (Auto) Salicylates Acetaminophen 11/30/21 11/30/21 11/30/21 04:42 11:27 12:04 WBC RBC Hgb Hct MCH MCHC RDW Plt Count Lymph % (Auto) [place] % (Auto) Lymph # (Auto) [place] # (Auto) Seg Neutrophils % Lymphocytes % (Manual) Seg Neutrophils # Seg Neutrophils # Man Lymphocytes # (Manual) D-Dimer ABG pH POC ABG pCO2 60.0 H POC ABG pO2 68.3 L ABG pO2 ABG HCO3 ABG O2 Saturation ABG Base Excess ABG Hemoglobin ABG Oxyhemoglobin 90.9 L ABG Sodium 145.1 H ABG Glucose 122 H Oxyhemoglobin Carboxyhemoglobin Sodium Potassium Chloride Carbon Dioxide BUN 32 H Creatinine 0.5 L Glucose 178 H POC Glucose 156 H Calcium Phosphorus Magnesium AST Lactate Dehydrogenase Albumin Triglycerides Arterial Blood Glucose 122 H Arterial Blood Ionized Calcium Urine WBC (Auto) Salicylates Acetaminophen 11/30/21 11/30/21 12/01/21 17:35 23:51 04:00 WBC 13.8 H RBC Hgb Hct MCH 26 L MCHC RDW 17.6 H Plt Count 455 H Lymph % (Auto) [place] % (Auto) Lymph # (Auto) [place] # (Auto) Seg Neutrophils % Lymphocytes % (Manual) Seg Neutrophils # Seg Neutrophils # Man Lymphocytes # (Manual) D-Dimer ABG pH POC ABG pCO2 POC ABG pO2 ABG pO2 ABG HCO3 ABG O2 Saturation ABG Base Excess ABG Hemoglobin ABG Oxyhemoglobin ABG Sodium ABG Glucose Oxyhemoglobin Carboxyhemoglobin Sodium Potassium Chloride Carbon Dioxide BUN Creatinine Glucose POC Glucose 124 H 158 H Calcium Phosphorus Magnesium AST Lactate Dehydrogenase Albumin Triglycerides Arterial Blood Glucose Arterial Blood Ionized Calcium Urine WBC (Auto) Salicylates Acetaminophen 12/01/21 12/01/21 12/01/21 04:00 06:03 11:13 WBC RBC Hgb Hct MCH MCHC RDW Plt Count Lymph % (Auto) [place] % (Auto) Lymph # (Auto) [place] # (Auto) Seg Neutrophils % Lymphocytes % (Manual) Seg Neutrophils # Seg Neutrophils # Man Lymphocytes # (Manual) D-Dimer ABG pH POC ABG pCO2 POC ABG pO2 ABG pO2 ABG HCO3 ABG O2 Saturation ABG Base Excess ABG Hemoglobin ABG Oxyhemoglobin ABG Sodium ABG Glucose Oxyhemoglobin Carboxyhemoglobin Sodium Potassium Chloride Carbon Dioxide BUN 36 H Creatinine 0.5 L Glucose 188 H POC Glucose 178 H 121 H Calcium Phosphorus Magnesium AST Lactate Dehydrogenase Albumin Triglycerides Arterial Blood Glucose Arterial Blood Ionized Calcium Urine WBC (Auto) Salicylates Acetaminophen 12/01/21 12/01/21 12/01/21 11:42 16:54 23:43 WBC RBC Hgb Hct MCH MCHC RDW Plt Count Lymph % (Auto) [place] % (Auto) Lymph # (Auto) [place] # (Auto) Seg Neutrophils % Lymphocytes % (Manual) Seg Neutrophils # Seg Neutrophils # Man Lymphocytes # (Manual) D-Dimer ABG pH POC ABG pCO2 POC ABG pO2 ABG pO2 71.0 L ABG HCO3 32.3 H ABG O2 Saturation 94.5 L ABG Base Excess 5.7 H ABG Hemoglobin ABG Oxyhemoglobin ABG Sodium ABG Glucose Oxyhemoglobin 92.6 L Carboxyhemoglobin Sodium Potassium Chloride Carbon Dioxide BUN Creatinine Glucose POC Glucose 129 H 115 H Calcium Phosphorus Magnesium AST Lactate Dehydrogenase Albumin Triglycerides Arterial Blood Glucose Arterial Blood Ionized Calcium Urine WBC (Auto) Salicylates Acetaminophen 12/02/21 12/02/21 12/02/21 04:55 04:55 05:19 WBC RBC Hgb Hct MCH 26 L MCHC RDW 18.1 H Plt Count 476 H Lymph % (Auto) [place] % (Auto) Lymph # (Auto) [place] # (Auto) Seg Neutrophils % Lymphocytes % (Manual) Seg Neutrophils # Seg Neutrophils # Man Lymphocytes # (Manual) D-Dimer ABG pH POC ABG pCO2 POC ABG pO2 ABG pO2 ABG HCO3 ABG O2 Saturation ABG Base Excess ABG Hemoglobin ABG Oxyhemoglobin ABG Sodium ABG Glucose Oxyhemoglobin Carboxyhemoglobin Sodium Potassium Chloride Carbon Dioxide 33 H BUN 30 H Creatinine 0.5 L Glucose 140 H POC Glucose 127 H Calcium Phosphorus Magnesium AST Lactate Dehydrogenase Albumin Triglycerides Arterial Blood Glucose Arterial Blood Ionized Calcium Urine WBC (Auto) Salicylates Acetaminophen 12/02/21 12/02/21 12/02/21 11:33 17:19 23:49 WBC RBC Hgb Hct MCH MCHC RDW Plt Count Lymph % (Auto) [place] % (Auto) Lymph # (Auto) [place] # (Auto) Seg Neutrophils % Lymphocytes % (Manual) Seg Neutrophils # Seg Neutrophils # Man Lymphocytes # (Manual) D-Dimer ABG pH POC ABG pCO2 POC ABG pO2 ABG pO2 ABG HCO3 ABG O2 Saturation ABG Base Excess ABG Hemoglobin ABG Oxyhemoglobin ABG Sodium ABG Glucose Oxyhemoglobin Carboxyhemoglobin Sodium Potassium Chloride Carbon Dioxide BUN Creatinine Glucose POC Glucose 118 H 139 H 140 H Calcium Phosphorus Magnesium AST Lactate Dehydrogenase Albumin Triglycerides Arterial Blood Glucose Arterial Blood Ionized Calcium Urine WBC (Auto) Salicylates Acetaminophen 12/03/21 12/03/21 12/03/21 04:52 04:52 05:03 WBC RBC 5.15 H Hgb Hct 44.2 H MCH 27 L MCHC RDW 17.8 H Plt Count 566 H Lymph % (Auto) [place] % (Auto) Lymph # (Auto) [place] # (Auto) Seg Neutrophils % Lymphocytes % (Manual) Seg Neutrophils # Seg Neutrophils # Man Lymphocytes # (Manual) D-Dimer ABG pH POC ABG pCO2 POC ABG pO2 ABG pO2 ABG HCO3 ABG O2 Saturation ABG Base Excess ABG Hemoglobin ABG Oxyhemoglobin ABG Sodium ABG Glucose Oxyhemoglobin Carboxyhemoglobin Sodium Potassium Chloride Carbon Dioxide BUN 22 H Creatinine 0.4 L Glucose 142 H POC Glucose 142 H Calcium Phosphorus Magnesium AST Lactate Dehydrogenase Albumin Triglycerides Arterial Blood Glucose Arterial Blood Ionized Calcium Urine WBC (Auto) Salicylates Acetaminophen 12/03/21 12/03/21 12/04/21 11:16 16:11 04:48 WBC 12.1 H RBC 5.58 H Hgb Hct 47.8 H MCH 26 L MCHC RDW 18.4 H Plt Count 576 H Lymph % (Auto) [place] % (Auto) Lymph # (Auto) [place] # (Auto) Seg Neutrophils % Lymphocytes % (Manual) Seg Neutrophils # Seg Neutrophils # Man Lymphocytes # (Manual) D-Dimer ABG pH POC ABG pCO2 POC ABG pO2 ABG pO2 ABG HCO3 ABG O2 Saturation ABG Base Excess ABG Hemoglobin ABG Oxyhemoglobin ABG Sodium ABG Glucose Oxyhemoglobin Carboxyhemoglobin Sodium Potassium Chloride Carbon Dioxide BUN Creatinine Glucose POC Glucose 147 H 140 H Calcium Phosphorus Magnesium AST Lactate Dehydrogenase Albumin Triglycerides Arterial Blood Glucose Arterial Blood Ionized Calcium Urine WBC (Auto) Salicylates Acetaminophen 12/04/21 12/04/2112/04/22 04:48 05:42 11:54 WBC RBC Hgb Hct MCH MCHC RDW Plt Count Lymph % (Auto) [place] % (Auto) Lymph # (Auto) [place] # (Auto) Seg Neutrophils % Lymphocytes % (Manual) Seg Neutrophils # Seg Neutrophils # Man Lymphocytes # (Manual) D-Dimer ABG pH POC ABG pCO2 POC ABG pO2 ABG pO2 ABG HCO3 ABG O2 Saturation ABG Base Excess ABG Hemoglobin ABG Oxyhemoglobin ABG Sodium ABG Glucose Oxyhemoglobin Carboxyhemoglobin Sodium Potassium Chloride Carbon Dioxide BUN 19 H Creatinine 0.5 L Glucose 123 H POC Glucose 111 H 121 H Calcium Phosphorus Magnesium AST Lactate Dehydrogenase Albumin Triglycerides Arterial Blood Glucose Arterial Blood Ionized Calcium Urine WBC (Auto) Salicylates Acetaminophen 12/05/21 12/05/21 12/05/21 07:53 08:02 08:02 WBC 11.3 H RBC 5.94 H Hgb 15.3 H Hct 50.9 H MCH 26 L MCHC RDW 18.3 H Plt Count 611 H Lymph % (Auto) [place] % (Auto) Lymph # (Auto) [place] # (Auto) Seg Neutrophils % Lymphocytes % (Manual) Seg Neutrophils # Seg Neutrophils # Man Lymphocytes # (Manual) D-Dimer ABG pH POC ABG pCO2 POC ABG pO2 ABG pO2 ABG HCO3 ABG O2 Saturation ABG Base Excess ABG Hemoglobin ABG Oxyhemoglobin ABG Sodium ABG Glucose Oxyhemoglobin Carboxyhemoglobin Sodium Potassium Chloride Carbon Dioxide BUN 19 H Creatinine 0.5 L Glucose POC Glucose 112 H Calcium Phosphorus Magnesium AST Lactate Dehydrogenase Albumin Triglycerides Arterial Blood Glucose Arterial Blood Ionized Calcium Urine WBC (Auto) Salicylates Acetaminophen 12/05/21 12/05/21 12/06/21 11:10 15:59 07:27 WBC RBC Hgb Hct MCH MCHC RDW Plt Count Lymph % (Auto) [place] % (Auto) Lymph # (Auto) [place] # (Auto) Seg Neutrophils % Lymphocytes % (Manual) Seg Neutrophils # Seg Neutrophils # Man Lymphocytes # (Manual) D-Dimer ABG pH POC ABG pCO2 POC ABG pO2 ABG pO2 ABG HCO3 ABG O2 Saturation ABG Base Excess ABG Hemoglobin ABG Oxyhemoglobin ABG Sodium ABG Glucose Oxyhemoglobin Carboxyhemoglobin Sodium Potassium Chloride Carbon Dioxide BUN Creatinine Glucose POC Glucose 125 H 108 H 112 H Calcium Phosphorus Magnesium AST Lactate Dehydrogenase Albumin Triglycerides Arterial Blood Glucose Arterial Blood Ionized Calcium Urine WBC (Auto) Salicylates Acetaminophen 12/06/21 12/06/21 12/06/21 11:45 11:56 16:26 WBC RBC Hgb Hct MCH MCHC RDW Plt Count Lymph % (Auto) [place] % (Auto) Lymph # (Auto) [place] # (Auto) Seg Neutrophils % Lymphocytes % (Manual) Seg Neutrophils # Seg Neutrophils # Man Lymphocytes # (Manual) D-Dimer ABG pH POC ABG pCO2 POC ABG pO2 ABG pO2 75.9 L ABG HCO3 27.1 H ABG O2 Saturation ABG Base Excess ABG Hemoglobin ABG Oxyhemoglobin ABG Sodium ABG Glucose Oxyhemoglobin 93.7 L Carboxyhemoglobin Sodium Potassium Chloride Carbon Dioxide BUN Creatinine Glucose POC Glucose 125 H 139 H Calcium Phosphorus Magnesium AST Lactate Dehydrogenase Albumin Triglycerides Arterial Blood Glucose Arterial Blood Ionized Calcium Urine WBC (Auto) Salicylates Acetaminophen 12/06/21 12/06/21 12/07/21 21:48 22:12 08:49 WBC RBC Hgb Hct MCH MCHC RDW Plt Count Lymph % (Auto) [place] % (Auto) Lymph # (Auto) [place] # (Auto) Seg Neutrophils % Lymphocytes % (Manual) Seg Neutrophils # Seg Neutrophils # Man Lymphocytes # (Manual) D-Dimer ABG pH POC ABG pCO2 POC ABG pO2 ABG pO2 ABG HCO3 ABG O2 Saturation ABG Base Excess ABG Hemoglobin ABG Oxyhemoglobin ABG Sodium ABG Glucose Oxyhemoglobin Carboxyhemoglobin Sodium Potassium Chloride Carbon Dioxide BUN Creatinine Glucose POC Glucose 130 H 129 H 129 H Calcium Phosphorus Magnesium AST Lactate Dehydrogenase Albumin Triglycerides Arterial Blood Glucose Arterial Blood Ionized Calcium Urine WBC (Auto) Salicylates Acetaminophen 12/07/21 12/08/21 12/08/21 11:38 07:47 11:18 WBC RBC Hgb Hct MCH MCHC RDW Plt Count Lymph % (Auto) [place] % (Auto) Lymph # (Auto) [place] # (Auto) Seg Neutrophils % Lymphocytes % (Manual) Seg Neutrophils # Seg Neutrophils # Man Lymphocytes # (Manual) D-Dimer ABG pH POC ABG pCO2 POC ABG pO2 ABG pO2 ABG HCO3 ABG O2 Saturation ABG Base Excess ABG Hemoglobin ABG Oxyhemoglobin ABG Sodium ABG Glucose Oxyhemoglobin Carboxyhemoglobin Sodium Potassium Chloride Carbon Dioxide BUN Creatinine Glucose POC Glucose 146 H 109 H 131 H Calcium Phosphorus Magnesium AST Lactate Dehydrogenase Albumin Triglycerides Arterial Blood Glucose Arterial Blood Ionized Calcium Urine WBC (Auto) Salicylates Acetaminophen 12/08/21 12/09/21 12/09/21 20:12 06:23 06:23 WBC 13.1 H RBC 6.18 H Hgb 16.3 H Hct 53.7 H MCH 26 L MCHC RDW 18.9 H Plt Count 726 H Lymph % (Auto) [place] % (Auto) Lymph # (Auto) [place] # (Auto) 0.9 H Seg Neutrophils % 75.5 H Lymphocytes % (Manual) Seg Neutrophils # 9.9 H Seg Neutrophils # Man Lymphocytes # (Manual) D-Dimer ABG pH POC ABG pCO2 POC ABG pO2 ABG pO2 ABG HCO3 ABG O2 Saturation ABG Base Excess ABG Hemoglobin ABG Oxyhemoglobin ABG Sodium ABG Glucose Oxyhemoglobin Carboxyhemoglobin Sodium 149 H D Potassium Chloride 110.3 H Carbon Dioxide BUN 23 H Creatinine Glucose 109 H POC Glucose 106 H Calcium Phosphorus Magnesium AST 47 H Lactate Dehydrogenase Albumin 3.8 L Triglycerides Arterial Blood Glucose Arterial Blood Ionized Calcium Urine WBC (Auto) Salicylates Acetaminophen 12/09/21 12/09/21 12/09/21 08:13 12:40 17:35 WBC RBC Hgb Hct MCH MCHC RDW Plt Count Lymph % (Auto) [place] % (Auto) Lymph # (Auto) [place] # (Auto) Seg Neutrophils % Lymphocytes % (Manual) Seg Neutrophils # Seg Neutrophils # Man Lymphocytes # (Manual) D-Dimer ABG pH POC ABG pCO2 POC ABG pO2 ABG pO2 ABG HCO3 ABG O2 Saturation ABG Base Excess ABG Hemoglobin ABG Oxyhemoglobin ABG Sodium ABG Glucose Oxyhemoglobin Carboxyhemoglobin Sodium Potassium Chloride Carbon Dioxide BUN Creatinine Glucose POC Glucose 110 H 135 H 117 H Calcium Phosphorus Magnesium AST Lactate Dehydrogenase Albumin Triglycerides Arterial Blood Glucose Arterial Blood Ionized Calcium Urine WBC (Auto) Salicylates Acetaminophen 12/09/21 12/10/21 12/10/21 21:01 07:45 16:38 WBC RBC Hgb Hct MCH MCHC RDW Plt Count Lymph % (Auto) [place] % (Auto) Lymph # (Auto) [place] # (Auto) Seg Neutrophils % Lymphocytes % (Manual) Seg Neutrophils # Seg Neutrophils # Man Lymphocytes # (Manual) D-Dimer ABG pH POC ABG pCO2 POC ABG pO2 ABG pO2 ABG HCO3 ABG O2 Saturation ABG Base Excess ABG Hemoglobin ABG Oxyhemoglobin ABG Sodium ABG Glucose Oxyhemoglobin Carboxyhemoglobin Sodium Potassium Chloride Carbon Dioxide BUN Creatinine Glucose POC Glucose 147 H 133 H 116 H Calcium Phosphorus Magnesium AST Lactate Dehydrogenase Albumin Triglycerides Arterial Blood Glucose Arterial Blood Ionized Calcium Urine WBC (Auto) Salicylates Acetaminophen 12/10/21 12/11/21 12/11/21 20:25 07:46 09:25 WBC 11.6 H RBC 5.61 H Hgb 14.8 H Hct 47.9 H MCH 26 L MCHC RDW 18.2 H Plt Count 632 H Lymph % (Auto) [place] % (Auto) Lymph # (Auto) [place] # (Auto) Seg Neutrophils % 74.8 H Lymphocytes % (Manual) Seg Neutrophils # 8.7 H Seg Neutrophils # Man Lymphocytes # (Manual) D-Dimer ABG pH POC ABG pCO2 POC ABG pO2 ABG pO2 ABG HCO3 ABG O2 Saturation ABG Base Excess ABG Hemoglobin ABG Oxyhemoglobin ABG Sodium ABG Glucose Oxyhemoglobin Carboxyhemoglobin Sodium Potassium Chloride Carbon Dioxide BUN Creatinine Glucose POC Glucose 119 H 124 H Calcium Phosphorus Magnesium AST Lactate Dehydrogenase Albumin Triglycerides Arterial Blood Glucose Arterial Blood Ionized Calcium Urine WBC (Auto) Salicylates Acetaminophen 12/11/21 12/11/21 12/11/21 09:25 11:54 16:38 WBC RBC Hgb Hct MCH MCHC RDW Plt Count Lymph % (Auto) [place] % (Auto) Lymph # (Auto) [place] # (Auto) Seg Neutrophils % Lymphocytes % (Manual) Seg Neutrophils # Seg Neutrophils # Man Lymphocytes # (Manual) D-Dimer ABG pH POC ABG pCO2 POC ABG pO2 ABG pO2 ABG HCO3 ABG O2 Saturation ABG Base Excess ABG Hemoglobin ABG Oxyhemoglobin ABG Sodium ABG Glucose Oxyhemoglobin Carboxyhemoglobin Sodium 136 L D Potassium 3.3 L Chloride Carbon Dioxide BUN Creatinine 0.5 L Glucose 131 H POC Glucose 118 H 114 H Calcium Phosphorus Magnesium AST Lactate Dehydrogenase Albumin 3.6 L Triglycerides Arterial Blood Glucose Arterial Blood Ionized Calcium Urine WBC (Auto) Salicylates Acetaminophen 12/11/21 12/12/21 12/12/21 20:31 07:36 12:04 WBC RBC Hgb Hct MCH MCHC RDW Plt Count Lymph % (Auto) [place] % (Auto) Lymph # (Auto) [place] # (Auto) Seg Neutrophils % Lymphocytes % (Manual) Seg Neutrophils # Seg Neutrophils # Man Lymphocytes # (Manual) D-Dimer ABG pH POC ABG pCO2 POC ABG pO2 ABG pO2 ABG HCO3 ABG O2 Saturation ABG Base Excess ABG Hemoglobin ABG Oxyhemoglobin ABG Sodium ABG Glucose Oxyhemoglobin Carboxyhemoglobin Sodium Potassium Chloride Carbon Dioxide BUN Creatinine Glucose POC Glucose 126 H 131 H 145 H Calcium Phosphorus Magnesium AST Lactate Dehydrogenase Albumin Triglycerides Arterial Blood Glucose Arterial Blood Ionized Calcium Urine WBC (Auto) Salicylates Acetaminophen 12/12/21 12/12/21 12/13/21 17:07 21:13 07:29 WBC RBC Hgb Hct MCH MCHC RDW Plt Count Lymph % (Auto) [place] % (Auto) Lymph # (Auto) [place] # (Auto) Seg Neutrophils % Lymphocytes % (Manual) Seg Neutrophils # Seg Neutrophils # Man Lymphocytes # (Manual) D-Dimer ABG pH POC ABG pCO2 POC ABG pO2 ABG pO2 ABG HCO3 ABG O2 Saturation ABG Base Excess ABG Hemoglobin ABG Oxyhemoglobin ABG Sodium ABG Glucose Oxyhemoglobin Carboxyhemoglobin Sodium Potassium Chloride Carbon Dioxide BUN Creatinine Glucose POC Glucose 118 H 110 H 115 H Calcium Phosphorus Magnesium AST Lactate Dehydrogenase Albumin Triglycerides Arterial Blood Glucose Arterial Blood Ionized Calcium Urine WBC (Auto) Salicylates Acetaminophen 12/13/21 21:30 WBC RBC Hgb Hct MCH MCHC RDW Plt Count Lymph % (Auto) [place] % (Auto) Lymph # (Auto) [place] # (Auto) Seg Neutrophils % Lymphocytes % (Manual) Seg Neutrophils # Seg Neutrophils # Man Lymphocytes # (Manual) D-Dimer ABG pH POC ABG pCO2 POC ABG pO2 ABG pO2 ABG HCO3 ABG O2 Saturation ABG Base Excess ABG Hemoglobin ABG Oxyhemoglobin ABG Sodium ABG Glucose Oxyhemoglobin Carboxyhemoglobin Sodium Potassium Chloride Carbon Dioxide BUN Creatinine Glucose POC Glucose 114 H Calcium Phosphorus Magnesium AST Lactate Dehydrogenase Albumin Triglycerides Arterial Blood Glucose Arterial Blood Ionized Calcium Urine WBC (Auto) Salicylates Acetaminophen Allied health notes reviewed: nursing
== END 2021-12-14 11:30 | DRG 870 ==
LOC: ED 22:32 → CC1 11-18 03:12 → 4A 12-04 17:49
PROVIDERS: ADMIT Internal Medicine Geriatric Medicine; ATTEND Internal Medicine
PROC: 5A1955Z Respiratory Ventilation, Greater than 96 Consecutive Hours (ICD-10-PCS; principal; 2021-11-18)
PROC: 0BH17EZ Insertion of Endotracheal Airway into Trachea, Via Natural or Artificial Opening (ICD-10-PCS; 2021-11-18)
PROC: 4A033R1 Measurement of Arterial Saturation, Peripheral, Percutaneous Approach (ICD-10-PCS; 2021-11-19)
PROC: 5A09357 Assistance with Respiratory Ventilation, Less than 24 Consecutive Hours, Continuous Positive Airway Pressure (ICD-10-PCS; 2021-11-27)
PROC: 5A09457 Assistance with Respiratory Ventilation, 24-96 Consecutive Hours, Continuous Positive Airway Pressure (ICD-10-PCS; 2021-12-01)
DX: A41.9 Sepsis, unspecified organism (principal); J15.9 Unspecified bacterial pneumonia; G92.8 Other toxic encephalopathy; J96.01 Acute respiratory failure with hypoxia; I50.33 Acute on chronic diastolic (congestive) heart failure; N39.0 Urinary tract infection, site not specified; J44.1 Chronic obstructive pulmonary disease with (acute) exacerbation; F23 Brief psychotic disorder; I16.1 Hypertensive emergency; E87.0 Hyperosmolality and hypernatremia; I11.0 Hypertensive heart disease with heart failure; I16.0 Hypertensive urgency; K21.9 Gastro-esophageal reflux disease without esophagitis; E78.00 Pure hypercholesterolemia, unspecified; M19.90 Unspecified osteoarthritis, unspecified site; I27.20 Pulmonary hypertension, unspecified; I25.10 Atherosclerotic heart disease of native coronary artery without angina pectoris; E87.6 Hypokalemia; Z20.822 Contact with and (suspected) exposure to COVID-19; E78.5 Hyperlipidemia, unspecified; E66.9 Obesity, unspecified; Z68.27 Body mass index [BMI] 27.0-27.9, adult; Z90.710 Acquired absence of both cervix and uterus; Z87.891 Personal history of nicotine dependence; I25.2 Old myocardial infarction; D75.839 Thrombocytosis, unspecified; I67.2 Cerebral atherosclerosis; F01.50 Vascular dementia, unspecified severity, without behavioral disturbance, psychotic disturbance, mood disturbance, and anxiety
CPT/HCPCS: 31500; 36415; 36600; 70450; 70553; 71045; 71250; 74018; 74176; 80048; 80053; 80076; 80307; 80320; 81001; 82140; 82803; 82805; 82947; 82962; 83036; 83615; 83690; 83735; 83880; 84100; 84145; 84295; 84443; 84478; 84484; 85007; 85025; 85027; 85379; 85610; 85730; 86140; 87040; 87070; 87086; 87205; 93005; 93306; 93970; 94002; 94003; 94640; 94644; 94660; 94760; 99291; G0378; J1815; J3490; J7121; Q0162; Q9967; A9575; G0480; J0171; J0360; J0456; J0692; J0696; J1200; J1630; J1650; J1940; J2060; J2250; J2270; J2704; J2920; J2930; J3010; J3480; J7030; J7050; J7070; U0003